=== PATIENT | female | born 1965 | race Caucasian/White ===

== ENCOUNTER → 2020-02-29 14:04 | Outpatient (CLI) | payer MEDICAID, SELFPAY ==
--- NOTE | 2020-02-29 14:08 | CT_ITS ---
STUDY: LOW DOSE CT LUNG CANCER SCREENING REASON FOR EXAM: Female, 54 years old. LUNG CANCER SCREENING RADIATION DOSAGE (If Supplied By Facility): CTDIvol = ( 2.01 ) mGy, DLP = ( 65.19 ) mGycm TECHNIQUE: No contrast was administered. Low dose technique was utilized (average mAS-38 and kVp 120). 1.25 mm axial source images with a slice interval of 1.25-mm were reconstructed in lung windows. 2.5 mm axial source images with a slice interval of 2.5-mm were reconstructed in lung windows. 5.0 mm axial source images with a slice interval of 5.0-mm were reconstructed in soft tissue windows. Nodule measured using lung windows on PACS and/or independent workstation with automated measurement of minimum and maximum diameter. Nodule measurement reported as average diameter rounded to the nearest whole number. Growth is defined as an increase ins size of greater than 1.5 mm. COMPARISON: None. FINDINGS: Total lung nodules (excluding granulomas): None demonstrated on the current study Emphysema: Present Endobronchial lesion: None demonstrated on the current study There is hyperinflation of the lungs consistent with chronic obstructive lung disease (COPD). There are mild diffuse cystic emphysematous changes of both lungs. No focal consolidation is seen. No suspicious nodules are present. There is no demonstrated pleural abnormality. Normal heart size and pericardium. There are calcifications of the coronary arteries. Normal mediastinum. Normal hilar regions. Normal unenhanced pulmonary arteries. Normal aorta arch and descending thoracic aorta. There are multi-level degenerative changes of the thoracic spine. There is no demonstrated gross or obvious abnormality of the visualized upper abdomen, although evaluation is limited with CT lung screening algorithm. CT/Low Dose CT Lung Screening IMPRESSION: 1. COPD/emphysema 2. No demonstrated nodules or suspicious findings on the current study. 3. Lung-RADS category 1 - Continue annual screening with LDCT in 12 months. 4. Coronary artery calcifications are present. IMPORTANT NOTES FOR USE: ACR Lung-RADS Version 1.0 Assessment Categories Release Date: January 03, 2014 Category: Coded 0-4 bases on nodule(s) with highest degree of suspicion. Negative screen is defined as categories 1 and 2; a positive screen is defined as categories 3 and 4. Category 3 and 4A nodules that are unchanged on interval CT should be coded as category 2, and individuals returned to screening in 12 months. Category 4X: Category 3 or 4 nodules with additional imaging findings that increase the suspicion of lung cancer, such as spiculation, GGN that doubles in size in 1 year, enlarged lymph notes, etc. Category Modifiers: S (significant finding unrelated to lung cancer) and C (prior history of treated lung cancer) may be added to the 0-4 Lung-RADS Electronically Signed: Aiden Feldman MD at 17:11 EDT , Service support ,
== END ==
PROVIDERS: PCP Nurse Practitioner Primary Care; Referring Provider Nurse Practitioner Primary Care; Visit Provider Nurse Practitioner Primary Care
DX: Z12.2 Encounter for screening for malignant neoplasm of respiratory organs (principal); F17.210 Nicotine dependence, cigarettes, uncomplicated
CPT/HCPCS: G0297

== ENCOUNTER 2020-03-29 10:45 | Emergency (ER) | payer MEDICAID, SELFPAY ==
[2020-03-29 10:46] VITALS: BP 149/114; PULSE 98; RESP 20; TEMP 36.6; O2SAT 99; BMI 26.4
--- NOTE | 2020-03-29 11:11 | RAD_ITS ---
STUDY: X-RAY - PELVIS AND BILATERAL HIPS REASON FOR EXAM: Female, 54 years old. PAIN IN BOTH HIPS FOR AT LEAST A YEAR OR MORE. NO KNOWN RECENT INJURY. TECHNIQUE: AP view of the pelvis.? 2 views of the right hip, and 2 views of the left hip were obtained. COMPARISON: None. FINDINGS: There is a non-specific bowel gas pattern. Normal visualized soft tissue structures. Normal bilateral iliac wings, sacroiliac joints and visualized sacrum. Normal bilateral superior and inferior pubic rami. Normal pubic symphysis. Normal bilateral ischial tuberosities. Normal visualized right femoral head. Normal right acetabulum. There is mild articular joint space narrowing of the right hip. Normal visualized left femoral head. Normal left acetabulum. There is mild articular joint space narrowing of the left hip. RAD/Hips B/L min 2 views w/ Pelvis IMPRESSION: Mild arthrosis, no demonstrated fracture or suspicious osseous lesion Electronically Signed: Nicolás Hendricks MD at 11:46 EDT , Service support ,
--- NOTE | 2020-03-29 11:24 | RAD_ITS ---
STUDY: X-RAY - CERVICAL SPINE REASON FOR EXAM: Female, 54 years old. Radiating neck pain TECHNIQUE: 4 view(s) of the cervical spine were obtained. COMPARISON: None FINDINGS: Normal anterior atlantoaxial articulation. Normal odontoid process. Normal cervical lordosis. There is diffuse demineralization of the cervical spine. Mild disc space narrowing throughout the cervical spine. No demonstrated fracture. The soft tissue structures are unremarkable. RAD/Cerv Spine 2 or 3 Views IMPRESSION: Mild degenerative changes, no acute findings Electronically Signed: Nicolás Hendricks MD at 11:47 EDT , Service support ,
--- NOTE | 2020-03-29 11:27 | ED.DCSUM_ITS ---
- ER Visit Summary Date of Service: 03/29/20 Chief Complaint: Bilateral hip pain History of Present Illness: The patient is a 54 F presenting with bilateral hip pain. Patient states this started over a year ago. She was recently referred to pain management and had her first appointment 2 days ago. She states x-rays were ordered and she has not been able to obtain them yet. She complains of bilateral hip pain. X-rays were ordered of her neck. She states she has been having neck pain as well but no current neck pain today. Denies recent trauma. She was able to ambulate to the ED. Denies bowel or bladder incontinence. She tried Tylenol at home. Denies fever or sick contacts. Physical Examination: Vitals are stable. Patient is afebrile. Alert no acute distress. HEENT exam is unremarkable. Neck is supple. Lungs are clear and equal bilaterally. Heart is regular rate and rhythm. Abdomen is soft nontender nondistended. Extremities are unremarkable. Active full range of motion Skin is warm and dry. No focal neurologic deficit. Normal strength and sensation Remainder of exam is unremarkable. Emergency Department Course and Treatment: Patient was given Norflex IM. Bilateral hip x-ray shows mild arthrosis, no demonstrated fracture or suspicious osseous lesion. Cervical spine x-ray shows mild degenerative changes, no acute findings. On reevaluation, patient is requesting additional pain medication. She has a listed allergy to NSAIDs. She states these upset her stomach. She was given Toradol IM. Advised to take Tylenol. Advised to follow-up with her pain management physician. Advised return to ED for worsening complaints. Disposition: Discharge home Impression: Chronic pain This note was generated with [employer] dictation software. It may contain incorrect words, spelling, and punctuation that were not noted in review of the chart prior to signing ED Disposition - Plan for ED Patient: Instructions: ED Chronic Pain Prescriptions: cycloBENZAPRine HCl [Flexeril] 10 mg PO TID PRN #20 tab PRN Reason: Muscle Spasm Prescription Printed Referrals: Gris Fofana NP-C [Primary Care Provider] -
[2020-03-29] MEDS: Orphenadrine 60 MG/2 ML Ampul IM (11:32)
--- NOTE | 2020-03-29 12:19 | ED.DEP ---
ED Disposition - Plan for ED Patient: Instructions: ED Chronic Pain Prescriptions: cycloBENZAPRine HCl [Flexeril] 10 mg PO TID PRN #20 tablet PRN Reason: Muscle Spasm Referrals: Gris Fofana NP-C [Primary Care Provider] -
[2020-03-29] MEDS: Ketorolac 30 MG/ML Syringe IM (12:33)
[2020-03-29 12:55] VITALS: BP 138/59; PULSE 96; RESP 14; O2SAT 97
== END 2020-03-29 12:57 | disposition home or self-care (01) ==
LOC: ED 11:56
PROVIDERS: Emergency Provider Emergency Medicine; PCP Nurse Practitioner Primary Care
DX: G89.29 Other chronic pain (principal); M54.2 Cervicalgia; M25.551 Pain in right hip; M25.552 Pain in left hip; M16.0 Bilateral primary osteoarthritis of hip; Z88.6 Allergy status to analgesic agent; E11.9 Type 2 diabetes mellitus without complications; I10 Essential (primary) hypertension; Z72.0 Tobacco use
CPT/HCPCS: 72040; 73521; 96372; 99282

== ENCOUNTER 2020-05-17 15:37 | Emergency (ER) | payer MEDICAID, SELFPAY ==
[2020-04-27 12:09] VITALS: BMI 26.4
[2020-05-17 15:37] VITALS: BP 143/120; PULSE 101; RESP 16; TEMP 36.8; O2SAT 97; BMI 28.8
[2020-05-17] MEDS: HYDROmorphone 1 MG/ML Syringe IM (16:18)
[2020-05-17] MEDS: diazePAM 2 MG Tablet 4 MG PO (16:32)
--- NOTE | 2020-05-17 16:37 | ED.VISSUMM ---
- ER Visit Summary Date of Service: 05/17/20 Chief Complaint: [Back pain] History of Present Illness: The patient is a 54 F [presents the emergency department complaint of back pain for several years. Patient states that she has been having pain for some time and just last week saw pain management who ordered physical therapy for her which she started today. Patient states she had physical therapy and then developed worsening pain that is similar to her chronic pain. No injury or trauma. She denies weakness in the extremities or change in bowel or bladder function. Patient describes pain rating down both legs which is chronic. Denies any fever or recent illness. She has history of diabetes and hypertension. Patient currently taking Tylenol for pain which she states not helping any longer.] Physical Examination: [HEENT-PERRLA, EOMI. Cranial nerves II through XII grossly intact. TMs clear. Mucous membranes moist. No adenopathy. Cardiovascular-regular rate and rhythm without murmur or ectopy Lungs-clear to auscultation, chest wall stable without crepitus or subcu emphysema Abdomen-normoactive bowel sounds, soft, nontender, no rebound or rigidity, no peritoneal signs. Back exam-patient has tenderness diffusely over the lumbar spine and lumbar paraspinal musculature. She has pain with straight leg raising at approximately 45 degrees however she refuses to sit up and exam is somewhat limited. Deep tendon reflexes are plus 2 out of 4 bilaterally at the patella and Achilles. Patient has normal 5 extension. Patient has normal sensation to light touch. Extremities-intact ?4, normal range of motion, normal pulses, atraumatic] Test Results: [X-rays of the lumbar spine were read by radiology as normal] Emergency Department Course and Treatment: [Patient was given a dose of Dilaudid 1 mg IM as well as Valium 4 mg p.o. Patient good pain relief with that. 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 It may contain incorrect words, spelling, and punctuation that were not noted in review of the chart prior to signing ED Disposition - Plan for ED Patient: Referrals: Gris Fofana NETWORK DESIGN ARCHITECT, NETWORK DESIGN ARCHITECT-C [Primary Care Provider] -
--- NOTE | 2020-05-17 16:47 | RAD_ITS ---
STUDY: X-RAY - LUMBAR SPINE REASON FOR EXAM: Female, 54 years old. BACK PAIN, HAD PHYSICAL THERAPY TODAY, PAIN DOWN BOTH LEGS TECHNIQUE: 3 view(s) of the lumbar spine were obtained. COMPARISON: None FINDINGS: Normal lumbar lordosis. There is no substantial scoliosis. There is a normal alignment of the vertebrae. Normal vertebral bodies and endplates. Normal disc space heights. The soft tissue structures are unremarkable. RAD/Lumbar Spine 2 or 3 Views IMPRESSION: Normal x-ray examination of the lumbar spine. Electronically Signed: Jeremiah Lau MD at 17:19 EDT Tel , Service support ,
--- NOTE | 2020-05-17 17:27 | DCINST.ED_ITS ---
ED Disposition - Plan for ED Patient: Instructions: ED Back Pain Acute or Chronic Prescriptions: Hydrocodone Bitart/Apap 5-325 [[place] 5MG-325MG] 1 tab PO Q4H PRN PRN 2 Days #10 tab PRN Reason: Pain Prescription Printed Referrals: Gris Fofana REFRACTORY TECHNICIAN, REFRACTORY TECHNICIAN-C [Primary Care Provider] - 3-5 Days Additional Instructions: see your pain management doctor
--- NOTE | 2020-05-17 17:27 | ED.DEP ---
ED Disposition - Plan for ED Patient: Instructions: ED Back Pain Acute or Chronic Prescriptions: Hydrocodone Bitart/Apap 5-325 [[place] 5MG-325MG] 1 tab PO Q4H PRN PRN 2 Days #10 tab PRN Reason: Pain Prescription Printed Referrals: Gris Fofana EXTRACTOR OPERATOR HELPER, EXTRACTOR OPERATOR HELPER-C [Primary Care Provider] - 3-5 Days Additional Instructions: see your pain management doctor
== END 2020-05-17 17:50 | disposition home or self-care (01) ==
LOC: ED 16:36
PROVIDERS: Emergency Provider Emergency Medicine; PCP Nurse Practitioner Primary Care
DX: M54.9 Dorsalgia, unspecified (principal); G89.29 Other chronic pain; E11.9 Type 2 diabetes mellitus without complications; I10 Essential (primary) hypertension
CPT/HCPCS: 72100; 96372; 99284

== ENCOUNTER → 2020-10-19 15:49 | Outpatient (CLI) | payer MEDICAID, SELFPAY ==
[2020-10-19 17:38] LABS: T3 Total - Triiodothyronine 1.02 ng/mL (0.6-1.81); Vitamin D,25 Hydroxy 21.4 ng/mL
[2020-10-19 17:44] LABS: ALB/GLOB Ratio 0.9 RATIO (0.9-2.4); AST(SGOT) 18 U/L (15-37); Alanine Aminotransfer ALT/SGPT 30 U/L (13-56); Albumin, Serum 3.5 g/dL (3.2-5.0); Alkaline Phosphatase 97 U/L (45-117); Anion Gap 6 (5-15); BUN 23 mg/dL (7-18); BUN/Creat Ratio 20.9 RATIO (10-20); Calcium,Total 9.1 mg/dL (8.5-10.1); Chloride 108 mmol/L (98-107); Cholesterol 264 mg/dL (200); EST Glomerular Filtration Rate 55 mL/min (>60); Est Glom Filt Rate - Afr Amer 66 mL/min (>60); Globulin 3.8 g/dL (2.2-4.2); Glucose 162 mg/dL (74-106); High Density Lipoprotein 76 mg/dL; Potassium 4.1 mmol/L (3.5-5.1); Protein, Total 7.3 g/dL (6.4-8.2); Sodium Level 138 mmol/L (136-145); T4 Free Direct 0.98 ng/dL (0.76-1.46); Thyroid Stim Hormone (TSH) 0.75 uIU/mL (0.358-3.74); Triglycerides 133 mg/dL; Very Low Density Lipoprotein 27 mg/dL (5-40)
== END ==
PROVIDERS: PCP Nurse Practitioner Primary Care; Referring Provider Otolaryngology; Visit Provider Otolaryngology
DX: E11.9 Type 2 diabetes mellitus without complications (principal); I10 Essential (primary) hypertension; M25.50 Pain in unspecified joint; D44.0 Neoplasm of uncertain behavior of thyroid gland
CPT/HCPCS: 36415; 80053; 80061; 82306; 84439; 84443; 84480

== ENCOUNTER 2020-10-26 08:26 | Emergency (ER) | payer MEDICAID, SELFPAY ==
[2020-10-26 08:26] VITALS: BP 131/84; PULSE 85; RESP 16; TEMP 35.5; O2SAT 98; BMI 28.7
--- NOTE | 2020-10-26 08:48 | ED.VISSUMM ---
- ER Visit Summary Date of Service: 10/26/20 Chief Complaint: Dysuria History of Present Illness: The patient is a 54 F who presents with dysuria that began yesterday. Patient states it is gradually gotten worse. Patient states the pain is burning and sharp. Patient states the pain is over the suprapubic area. Patient states the pain is been constant. Patient states the pain is worse when she urinates. Patient states nothing seems to help with the pain. Patient states she does have some pain in her low back. Patient denies any flank pain. Patient denies any nausea or vomiting. Patient denies any fevers or chills. Physical Examination: Vital signs are stable. Patient is afebrile. Patient is in no acute distress. Oral mucosa is pink and moist. Neck is supple. Trachea is midline. There is no JVD. Heart was regular rate and rhythm. Lungs are clear and equal bilaterally. Abdomen is soft. Bowel sounds are normal. There is some suprapubic tenderness. There is no rebound or guarding noted. Cranial nerves II through XII are intact. There are no focal motor or sensory deficits. Extremities are intact. There is no calf tenderness or edema. Test Results: Urinalysis showed leukocyte esterase of 500 and occult blood of 250. There are greater than 100 white blood cells and greater than 100 red blood cells. Emergency Department Course and Treatment: Patient was given a dose of [place] and Bactrim here. Patient was given prescriptions for Bactrim and Pyridium. Patient was instructed to follow-up with her primary care physician in 3 to 5 days. Patient was instructed to drink plenty of fluids. Patient understood and was agreeable with the plan. All questions were answered. Disposition: Discharge home Impression: Urinary tract infection This note was generated with [employer] dictation software. It may contain incorrect words, spelling, and punctuation that were not noted in review of the chart prior to signing ED Disposition - Plan for ED Patient: Disposition: Home or Assisted Living Diagnosis: Cystitis Instructions: ED Bladder Infection, Female (Adult) Prescriptions: Smz/Tmp Ds [Bactrim Ds] 1 tab PO BID #6 tab Prescription Printed Phenazopyridine HCl [Pyridium] 200 mg PO TID #10 tab Prescription Printed Referrals: Gris Fofana CATECHIST, CATECHIST-C [Primary Care Provider] - 3-5 Days
[2020-10-26] MEDS: HYDROcodone Bitartrate/Apap 5/325 Tablet PO (08:53)
[2020-10-26 09:00] LABS: Bacteria 0 SEEN /hpf (None Seen); Mucous, Urine 0 SEEN /hpf (<or=2+)
[2020-10-26 09:02] LABS: Color, Urine Yellow (Yellow); Glucose, Dipstick 1000 mg/dl (Normal); Ketone-Dipstick Negative (Negative); Leukocyte Esterase-Dipstick 500 /ul (Negative); Nitrite-Dipstick Negative (Negative); Occult Blood-Urine 250 /ul (Negative); Protein-Dipstick 100 mg/dl (Negative); Specific Gravity, Urine 1.025 (1.002-1.030); Urine Bilirubin Dipstick Negative (Negative); Urine Clarity Cloudy (Clear); Urine Urobilinogen Normal (Normal)
[2020-10-26 09:08] LABS: Red Blood Cells-Urine > 100 SEEN /hpf (0-5); Squamous Epithelial Cells - UA 0-5 SEEN /hpf (5-10); White Blood Cells >100 SEEN /hpf (0-5)
[2020-10-26] MEDS: Smz/Tmp Ds Tablet 1 TABLET PO (09:34)
[2020-10-26 09:38] VITALS: BP 131/84; PULSE 85; PULSE 86; RESP 15; RESP 16; TEMP 35.5; O2SAT 98
== END 2020-10-26 09:39 | disposition home or self-care (01) ==
PROVIDERS: Emergency Provider Emergency Medicine; PCP Nurse Practitioner Primary Care
DX: N30.90 Cystitis, unspecified without hematuria (principal); E11.9 Type 2 diabetes mellitus without complications; I10 Essential (primary) hypertension; E78.00 Pure hypercholesterolemia, unspecified; M54.9 Dorsalgia, unspecified; G89.29 Other chronic pain; F17.210 Nicotine dependence, cigarettes, uncomplicated
CPT/HCPCS: 81001; 99283

== ENCOUNTER 2020-11-01 13:35 | Emergency (ER) | payer OTHER, MEDICAID, SELFPAY ==
[2020-11-01 13:36] VITALS: BP 155/89; PULSE 85; RESP 17; TEMP 35.8; O2SAT 99; BMI 29.5
--- NOTE | 2020-11-01 14:22 | RAD_ITS ---
STUDY: X-RAY - RIGHT FEMUR REASON FOR STUDY: Female, 54 years old. Pt fell last Friday, pain in right leg and right groin TECHNIQUE: 4 view(s) of the femur. COMPARISON: None. FINDINGS: Normal visualized femur. Normal visualized soft tissue structure. RAD/Femur Min 2 Views IMPRESSION: Normal x-ray examination of the femur. Electronically Signed: Joaquin Rodney MD at 14:59 EST , Service support ,
[2020-11-01] MEDS: Ketorolac 30 MG/ML Syringe IM (14:55)
--- NOTE | 2020-11-01 14:57 | ED.DCSUM_ITS ---
- ER Visit Summary Date of Service: 11/01/20 Chief Complaint: Right groin pain History of Present Illness: The patient is a [address] Lay in [place]. She reports that 5 days ago she kicked a pallet with a bucket on it with her right leg and had the abrupt onset of pain in her right groin. States the pain improved over the weekend, but she has been working again and the pain is worse again today. She describes it as a sharp pain is 10 of 10 severity. Is worsened by movement. Relieved by rest. She has not taken anything for pain. She reports she has chronic back pain is unchanged. She denies any weakness or paresthesias. Physical Examination: Vitals: Stable. Afebrile. Neck: No vertebral tenderness. Full ROM without difficulty. Cleared by NEXUS criteria. Back: No vertebral tenderness. General: A&O x 3. NAD. Cardiovascular exam: Regular rate and rhythm, no murmur, rub or gallop. Respiratory exam: Chest nontender. No crepitus. Clear to auscultation bilaterally. No wheezes or stridor. Abdominal exam: Soft, nontender, nondistended, normal bowel sounds. No pain in RUQ or LUQ specifically. No peritoneal signs. Extremity: No pain over the greater trochanter. No pain in the inguinal region. She does have moderate translocation of the medial proximal right thigh. She is neuro vas intact distal this with normal station light touch and a 2+ dorsalis pedis pulse. Test Results: X-ray shows no acute disease. Emergency Department Course and Treatment: An [facility] report was obtained which shows she had 2 prescriptions for opiates in the past year. She is given dose of Toradol IM. Treatment Plan: Patient will be discharged prescription for 10 [place]. Instructed to follow-up with [facility] in 3 to 5 days for another exam. She is given work restrictions. Return to the emergency department for any worsening symptoms. Disposition: To home in improved and stable condition. Impression: 1. Right thigh strain. This note was generated with [employer] software. It may contain incorrect words, spelling, and punctuation that were not noted in review of the chart prior to signing ED Disposition - Plan for ED Patient: Instructions: ED Muscle Strain, Extremity Prescriptions: Hydrocodone Bitart/Apap 5-325 [[place] 5MG-325MG] 1 tab PO Q4H PRN PRN 2 Days #10 tab PRN Reason: Pain Prescription Printed Referrals: [facility] [GROUP OF PHYSICIANS] - 3-5 Days
[2020-11-01] MEDS: HYDROcodone Bitartrate/Apap 5/325 Tablet PO (15:44)
== END 2020-11-01 15:51 | disposition home or self-care (01) ==
LOC: ED 15:13
PROVIDERS: Emergency Provider Emergency Medicine; PCP Nurse Practitioner Primary Care
DX: S76.911A Strain of unspecified muscles, fascia and tendons at thigh level, right thigh, initial encounter (principal); G89.29 Other chronic pain; W22.8XXA Striking against or struck by other objects, initial encounter
CPT/HCPCS: 73552; 96372; 99283

== ENCOUNTER → 2020-11-13 07:20 | Outpatient (CLI) | payer OTHER, SELFPAY ==
[2020-11-03 13:41] VITALS: BMI 29.8
--- NOTE | 2020-11-13 07:23 | CT_ITS ---
STUDY: CT ABDOMEN AND PELVIS WITHOUT CONTRAST REASON FOR EXAM: Female, 54 years old. Concern for hernia RADIATION DOSAGE (If Supplied By Facility): CTDIvol = ( 9.54 ) mGy, DLP = ( 483.74 ) mGycm TECHNIQUE: Transaxial images were obtained from the dome of the diaphragm to the symphysis pubis without oral contrast, and without intravenous contrast. Sagittal and coronal images were reconstructed. Individualized dose optimization techniques were used for this CT. COMPARISON: None. FINDINGS: The visualized lung bases are unremarkable. The visualized portions of the heart are within normal limits. Normal liver. Normal gallbladder and extrahepatic biliary system. Normal spleen. Normal pancreas. Normal bilateral adrenal glands. Normal right kidney. Normal left kidney. Normal visualized stomach. Normal small intestine. Normal colon. The appendix is visualized and appears normal. Normal abdominal aorta. Normal inferior vena cava. Normal retroperitoneum. Normal urinary bladder. Normal abdominal wall. Normal osseous structures. CT/Abdomen/Pelvis without Cont IMPRESSION: Unremarkable CT of the abdomen and pelvis. There is no evidence of hernia. Electronically Signed: Saray Lance MD at 10:50 EST Tel , Service support ,
== END ==
PROVIDERS: PCP Nurse Practitioner Primary Care; Referring Provider Physician Assistant Surgical; Visit Provider Physician Assistant Surgical
DX: S76.211A Strain of adductor muscle, fascia and tendon of right thigh, initial encounter (principal)
CPT/HCPCS: 74176

== ENCOUNTER 2020-12-08 08:30 | Outpatient (RCR) | payer OTHER, MEDICAID, SELFPAY ==
[2020-11-03 13:41] VITALS: BMI 29.8
--- NOTE | 2020-11-28 09:48 | HP.PTEVAL_ITS ---
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 Date of Evaluation: 11/28/20 Physical Therapist: Venkata Pierson, PT, Cert MDT, OCS - Visit Plan Frequency: 3x /Week Duration: 4-6 Months Plan: PT INTERVENTIONS ROM ,STRENGTHENING ,HIP/KNEE,FUNCTIONAL STRENGTHENING AND MODALTIES NEEDED - Subjective This 54 y/o female presents to physical therapy with right hip thigh pain. Patient at work 11/01/20 noticed sharp pain by kicking and moving pallet. Then following week pulling pallet felt anoth pop. Pain located right groin. Symptoms some better. Went to ER x-rays leg which was negative, [facility] for [facility]nia -.Patient is not working. Aggraveting factors extended walki ng,lifting,standing and stairs. Nothing alleviates symptoms.Patient has difficulty with squatting/kneeling. Denies parathesia/tingling. Patient symptoms affects sleeping.Patient groin pain afffects QOL and funtion. Patient symptoms affects ability to RTW. SOCAIL : . VOACTION: DNS [place] - Pain Right Hip Pain Intensity (Out of 10): 9 Pain Intensity Range: 10 Comment: groinn - Objective POSTURE: WFL. NEURO: intact. PALAPTION: anterior groin region. GAIT: reciprocal pattern with antalgic gait right side. AROM HIP: 100 flexion,abduction 40 degrees ,ER 60,IR 30 degrees pain. KNEE ROM: 0-135 degrees supine flexion. MMT: quads/hams 4-/5,hip flexion /abduction 3+/5 ,ankle 4/5. LUMBAR ROM: MIN/MOD LOSS. PIRIFORMIS: WFL. HAMSTRINGS: mild tight. PROM: WFL hear pop but patient staes thats normal - Special Tests R Hip Scour: Positive R Hip Quadrant - Intraarticular Pathology: Negative R Hip ASHLEY - Intraarticular Pathology: Positive - Goals Goal 1:: I with HEP Goal Time Frame: 4-6 Weeks Goal 2:: Decrease pain by 60% or > to improve function and RTW. Goal Time Frame: 4-6 Weeks Goal 3:: Normalize gait pattern Goal Time Frame: 4-6 Weeks Goal 4:: Improve strength right hip to 4-/5 to improve gait and function. Goal Time Frame: 4-6 Weeks Goal 5:: Patient to RTW with min to no limitations Goal 6:: Patient to improve LFES score by 10 ponts or > to improve function and RTW Goal Time Frame: 4-6 Weeks - Rehabilitation Potential Physical Therapy Diagnosis: This patient right hip at work groin pain with walking,sqauting,lifting ,pain with ROM ,weakness impairs gait and inability to RTW thus will need skilled PT Rehabilitation Potential: Good - Anticipated Interventions Patient/Client Instruction: Educate patient on: Condition For the Purpose of:: To decrease pain, To increase ROM, To improve muscle performance and motor function, To improve ability to perform ADL's, To increase tolerance to activity/condition/position, To improve ability of physical actions for home/community/work/leisure, To improve gait and locomotor functions, To improve health of tissue, To decrease soft tissue restriction, To increase flexibility/ROM, To reduce risk of recurrence Therapeutic Exercise to Include: Strength training, Balance training, Flexibilty training, Passive ROM, Active ROM Comment: HIP/KNEE For the Purpose of:: To decrease pain, To increase ROM, To improve muscle performance and motor function, To increase tolerance to activity/condition/position, To improve ability of physical actions for home/community/work/leisure, To improve health of tissue, To decrease soft tissue restriction, To increase flexibility/ROM, To improve ability to perform tasks related to life management TENS: Yes IF ES: Yes Cryotherapy (ice pack, ice massage): Yes Thermo therapy (hot pack): Yes Ultrasound (thermal/non thermal): Yes For the Purpose of:: To decrease pain, To increase ROM, To improve health of tissue, To decrease soft tissue restriction Thank you for the opportunity to evaluate your patient. For Medicare and Medicare HMO plans, please review the plan of care and approve it. It will need to be FAXED BACK to us at [phone] for Medicare purposes. For Medicare only, by signing this I certify the plan of care. Please let me know if there are questions or concerns regarding this plan of care. Physician Signature: Date:
--- NOTE | 2021-05-02 13:50 | HP.PT.NRP ---
MILY CHILDRESS was seen in my office for initial evaluation on 11/28/20. The following Plan of Care was established for this patient: Initial Frequency: 3x /Week Initial Duration: 4-6 Months Patient/Client Instruction: Educate patient on: Condition For the Purpose of:: To decrease pain, To increase ROM, To improve muscle performance and motor function, To improve ability to perform ADL's, To increase tolerance to activity/condition/position, To improve ability of physical actions for home/community/work/leisure, To improve gait and locomotor functions, To improve health of tissue, To decrease soft tissue restriction, To increase flexibility/ROM, To reduce risk of recurrence Therapeutic Exercise to Include: Strength training, Balance training, Flexibilty training, Passive ROM, Active ROM For the Purpose of:: To decrease pain, To increase ROM, To improve muscle performance and motor function, To increase tolerance to activity/condition/position, To improve ability of physical actions for home/community/work/leisure, To improve health of tissue, To decrease soft tissue restriction, To increase flexibility/ROM, To improve ability to perform tasks related to life management TENS: Yes IF ES: Yes Cryotherapy (ice pack, ice massage): Yes Thermo therapy (hot pack): Yes Ultrasound (thermal/non thermal): Yes For the Purpose of:: To decrease pain, To increase ROM, To improve health of tissue, To decrease soft tissue restriction This patient was last seen in our office . Pertinent comments regarding their Physical therapy will appear below: Patient seen for PT for right hip strain with modalities and light strengthening, thus d/c released to RTW per MD At this point I will be discontinuing this patient from physical therapy. I would be happy to see this patient again in the future if found appropriate by the physician. Thank you! Venkata Pierson, PT, Cert MDT, OCS Balance/Gait/Functional tests - Balance/Special Test Scores Lower Extremity Functional Score: 50
== END 2020-12-08 19:00 | disposition home or self-care (01) ==
LOC: PT 08:30
PROVIDERS: PCP Nurse Practitioner Primary Care; Referring Provider Physician Assistant Surgical; Visit Provider Physician Assistant Surgical
DX: S76.011D Strain of muscle, fascia and tendon of right hip, subsequent encounter (principal); S76.211D Strain of adductor muscle, fascia and tendon of right thigh, subsequent encounter
CPT/HCPCS: 97014; 97110; 97140; 97162; G0283

== ENCOUNTER → 2021-04-12 07:24 | Outpatient (CLI) | payer MEDICAID, SELFPAY ==
[2020-11-03 13:41] VITALS: BMI 29.8
--- NOTE | 2021-04-12 07:29 | ART_ITS ---
Reason For Study: atherosclerosis with claudication Procedure A bilateral lower extremity continuous wave Doppler with analog waveform analysis and ankle brachial indexes. Left Segmental Pressures Left brachial= 141mmHg. Left posterior tibial artery = 159mmHg. Left dorsalis pedis artery = 140mmHg. Left digit = 121 mmHg. The left dorsalis pedis waveforms are triphasic. The left posterior tibial artery waveforms are triphasic. Right Segmental Pressures Right brachial= 147mmHg. Right posterior tibial artery = 131mmHg. Right dorsalis pedis artery = 145mmHg. Right digit = 103 mmHg. The right dorsalis pedis waveforms are triphasic. The right posterior tibial artery waveforms are triphasic. Indices The right ankle brachial index by the dorsalis pedis is .99. The right ankle brachial index by the posterior tibial artery is .89. The right digital-brachial index is .7. The left ankle brachial index by the posterior tibial artery is 1.08. The left ankle brachial index by the dorsalis pedis is .95. The left digital-brachial index is .82. VL/Ankle Brachial Index Interpretation Summary Bilateral lower extremities no evidence of significant occlusive disease at res t. Bilateral triphasic flow noted in all vessels at the ankle. LUIS 0.99 and 1.08. Ordering Physician: Daniel Mcintosh Performed By: Ric Blanton RVT and Student
--- NOTE | 2021-04-12 07:29 | AAVD_ITS ---
Reason For Study: atherosclerosis of aorta Aorta Measurements Aorta Doppler Measurements Proximal aorta measures1.97 x 1.94cm. in cross- Peak systolic flow velocities within the proximal sectional axis. aorta measure 69.5 cm/sec. Proximal aorta measures2.01cm. in longitudinal Peak systolic flow velocities within the mid aorta axis. measure 83.9 cm/sec. Mid aorta measures1.2 x 1.15cm. in cross-sectionalPeak systolic flow velocities within the distal axis. aorta measure 72.7 cm/sec. Mid aorta measures1.21cm. in longitudinal axis. Distal aorta measures1.15 x 1.17cm. in cross- sectional axis. Distal aorta measures1.13cm. in longitudinal axis. Left Iliac Artery Left iliac artery measures .76 x .76 cm. in the cross-sectional axis. Left iliac artery measures .78 cm. in the longitudinal axis. Peak systolic velocity in the left iliac artery measures 45.3 cm/sec. Right Iliac Artery Right iliac artery measures .79 x .8 cm. in the cross-sectional axis. Right iliac artery measures .79 cm. in the longitudinal axis. Peak systolic velocity in the right iliac artery measures 121.1 cm/sec. Procedure Aorta IVC Iliac vasculature or bypass grafts [id number]. The exam was diagnostic. Exam performed in department. VL/Abd Aortic/IVC Duplex scan Interpretation Summary No evidence of aortic iliac aneurysm or stenosis. Ordering Physician: Daniel Mcintosh Performed By: Ric Blanton RVT and Student
== END ==
PROVIDERS: PCP Nurse Practitioner Primary Care; Referring Provider Surgery Vascular Surgery; Visit Provider Surgery Vascular Surgery
DX: I70.213 Atherosclerosis of native arteries of extremities with intermittent claudication, bilateral legs (principal); I70.0 Atherosclerosis of aorta
CPT/HCPCS: 93922; 93978

== ENCOUNTER 2021-05-27 18:29 | Emergency (ER) | payer MEDICAID, SELFPAY ==
[2021-05-27 18:30] VITALS: BP 134/71; PULSE 79; RESP 18; TEMP 35.6; O2SAT 96; BMI 32.1
[2021-05-27 19:03] LABS: Mucous, Urine 0 SEEN /hpf (<or=2+); Red Blood Cells-Urine 0 SEEN /hpf (0-5)
[2021-05-27 19:05] LABS: Color, Urine Yellow (Yellow); Glucose, Dipstick 100 mg/dl (Normal); Ketone-Dipstick Negative (Negative); Leukocyte Esterase-Dipstick 25 /ul (Negative); Nitrite-Dipstick Negative (Negative); Occult Blood-Urine Negative /ul (Negative); Protein-Dipstick 100 mg/dl (Negative); Urine Bilirubin Dipstick Negative (Negative); Urine Clarity Sl. Cloudy (Clear); Urine Urobilinogen Normal (Normal)
[2021-05-27 19:29] LABS: Hyaline Cast 0-5 SEEN /lpf (0-5)
[2021-05-27 19:31] LABS: Bacteria 1+ /hpf (None Seen); Squamous Epithelial Cells - UA 5-10 SEEN /hpf (5-10); White Blood Cells 0-5 SEEN /hpf (0-5)
--- NOTE | 2021-05-27 19:40 | ED.VIS.FEGU ---
HPI HPI - Female History of Present Illness Chief Complaint: Complaint Informant: patient Pain Pain: Negative for Pelvic Pain Quality: Negative for Cramping Bleeding Issue: Negative for Vaginal bleeding and Passing clots Associated Symptoms Associated Symptoms: Positive for Hematuria; Negative for Dysuria, Frequency and Urgency Narrative Narrative: 55-year-old female history of diabetes. Prior hysterectomy. States for the last 2 days she has had hematuria. Denies dysuria. Denies fever or chills. Denies any trauma. She is on no blood thinners. Denies any bruising or bleeding from her nose, gums or rectal bleeding. States she is never had this before. Prior similar symptoms: No Recent Illness/Hospitalization: No PFSH PFSH Medical History (Updated 05/27/21 @ 21:[address] Reese Schulte MD) Asthma Back pain Chronic neck and back pain Diabetes Difficulty balancing History of arthritis History of stomach ulcers Hypertension Knee pain Shoulder pain Home Medications insulin glargine 100 unit/mL (3 mL) subcutaneous pen 36 unit SC QHS 11/03/20 [History Last Taken Unknown] Allergy/AdvReac Type Severity Reaction Status Date / Time duloxetine [From Cymbalta] Allergy Unknown Verified 05/27/21 18:30 Penicillins Allergy NEEDS Verified 05/27/21 18:30 FOLLOW-UP pregabalin [From Lyrica] Allergy Unknown Verified 05/27/21 18:30 NSAIDS (Non-Steroidal AdvReac Upset Verified 05/27/21 18:30 Anti-Inflamma Stomach Family History Other Cancer Diabetes Surgical History History of ankle surgery History of History of hysterectomy Social History Smoking Status: Current every day smoker tobacco type: cigarettes alcohol intake: never ROS ROS ED ROS Narrative Hematuria only. Review of Systems ROS Unobtainable: Denies due to encephalopathy Constitutional Constitutional ED: Denies chills or fever(s) Eyes Eyes: Denies change in vision ENT ENT ED: Denies ear pain or sore throat Cardiovascular Cardiovascular: Denies chest pain Respiratory/Chest Respiratory/Chest: Denies cough or dyspnea Gastrointestinal Gastrointestinal: Denies abdominal pain, diarrhea, melena, nausea or vomiting Genitourinary Genitourinary ED: Reports hematuria; Denies dysuria or urinary frequency Musculoskeletal Musculoskeletal: Denies myalgias Integumentary Denies rash Neurologic Neurologic: Denies headache(s) Psychiatric Psychiatric: Denies depression Endocrine Endocrinology: Denies polyuria Hematologic/Lymphatic Hematologic/Lymphatic: Denies easy bruising Allergic/Immunologic Allergic/Immunologic ED: Denies urticaria EXAM Physical Exam Narrative Exam Narrative: Well-appearing middle-aged female no acute distress. Exam unremarkable. Abdomen soft nontender. Back nontender. Otherwise unremarkable. Const Vital Signs: 05/27/21 18:30 Temperature 96.0 F L Temperature Source Temporal Pulse Rate 79 Respiratory Rate 18 Blood Pressure 134/71 H Blood Pressure Mean 92 Pulse Ox 96 Oxygen Delivery Method Room Air Positive well nourished, well developed and obese; Negative for cachectic, contractures or unkempt General Appearance ED: well developed and NAD; Negative for unkempt, cachectic or contractures Nutritional Appearance: obese; Negative for cachectic HEENT Reports moist mucous membranes Negative for trauma or tenderness Eyes PERRL and EOMs intact bilaterally Neck no lymphadenopathy, supple and no JVD Thyroid: Negative for tender Chest Wall inspection of chest normal and palpation of chest normal Resp normal respiratory effort and clear to auscultation bilaterally Effort and Inspection: Negative for pain with movement Auscultation: Negative for rales, rhonchi or wheezes Cardio regular rate, regular rhythm, S1 normal heart sound, no murmurs and no JVD GI normal to inspection, nondistended, normoactive bowel sounds, soft to palpation, non-tender, non-distended and no masses Auscultation: normoactive bowel sounds Palpation: Negative for tender, guarding or rigid no CVA tenderness Back/Spine no CVA tenderness General Back: Negative for CVA tenderness Extremity normal to inspection and full ROM General Extremety ED: Negative for edema or tenderness General Extremity: Negative for edema Neuro oriented x3 Sensorium / Orientation: alert, oriented to person, oriented to place and oriented to time Motor Exam: strength 5/5 throughout Psych mental status grossly normal Appearance: Negative for unkempt Skin no rashes or lesions noted MDM MDM MDM Narrative Medical decision making narrative: 55-year-old female with hematuria without other complaints. UA shows no signs of infection. Culture being sent. No nitrates and no white cells or red cells. Patient requested lab work to be done because she has some type of kidney problem that her primary care physician she states is watching. Repeat exam patient is doing well at 9:25 PM. There is no urinary tract infection on urinalysis. There is no kidney stone or cause of the bleeding on the CAT scan. There was an incidental finding of coronary calcifications which I explained to the patient she should follow up and get an outpatient stress test. She will follow up with her primary care physician for further evaluation of the hematuria. She will also take her insulin when she goes home due to her hyperglycemia. Lab Data Attestation: I reviewed the patient's lab results. Lab results narrative: Urinalysis unremarkable 1+ bacteria. Culture be sent. No whites or red cells no nitrites. CBC shows a white count 12.4. Hemoglobin of 12. Electrolytes show a gap of 7 BUN of 36 creatinine 1.81. Glucose of 343. Labs: Laboratory Results - last 24 hr 05/27/21 05/27/21 05/27/21 18:48 19:13 19:13 WBC 12.4 H RBC 3.91 L Hgb 12.1 Hct 38.1 MCV 97.4 MCH 30.9 MCHC 31.8 L RDW Std Deviation 51.6 H RDW Coeff of Yudelka 14.6 Plt Count 280 MPV 10.4 Immature Gran % (Auto) 0.600 Neut % (Auto) 79.0 H Lymph % (Auto) 13.7 L [place] % (Auto) 6.2 Eos % (Auto) 0.3 Baso % (Auto) 0.2 Absolute Neuts (auto) 9.8 H Absolute Lymphs (auto) 1.69 Nucleated RBC % 0 Sodium 136 Potassium 4.4 Chloride 107 Carbon Dioxide 22.0 Anion Gap 7 BUN 36 H Creatinine 1.81 H Estim Creat Clear Calc 26.19 Est GFR (MDRD) Af Amer 37 L Est GFR (MDRD) Non-Af 31 L BUN/Creatinine Ratio 19.9 Glucose 343 H Calcium 8.3 L Urine Color Yellow Urine Clarity Sl. Cloudy Urine pH 5.0 Ur Specific [place] 1.020 Urine Protein 100 H Urine Glucose (UA) 100 H Urine Ketones Negative Urine Occult Blood Negative Urine Nitrite Negative Urine Bilirubin Negative Urine Urobilinogen Normal Ur Leukocyte Esterase 25 H Urine RBC 0 SEEN Urine WBC 0-5 SEEN Ur Squamous Epith Cells 5-10 SEEN Urine Bacteria 1+ Hyaline Casts 0-5 SEEN Urine Mucus 0 SEEN Radiography Diagnostic Testing: Radiology Impression Abdomen/Pelvis CT 05/27/21 20:00 IMPRESSION: 1. Normal abdomen. No acute disease. 2. No urinary calculi. 3. Severe coronary artery disease. Cardiology attention advised. Electronically Signed: Socorro Mcclellan MD at 21:11 EDT Tel , Service support , Discharge Plan Triage Chief Complaint: Complaint ED Provider: Reese Schulte Dx/Rx/DC Orders Clinical Impression: Hematuria, Chronic renal insufficiency, Acute hyperglycemia Instructions: ED Hematuria, ED Renal Insufficiency Prescriptions: No Action insulin glargine 100 unit/mL (3 mL) insulin pen 36 unit SC QHS RF: 0 Primary Care Provider: Gris Fofana NP Referrals: Gris Fofana NP, OPERATIONS RESEARCH ANALYST-C [Primary Care Provider] - As soon as possible Activity Restrictions/Additional Instructions: Follow-up with your primary care provider. The need to recheck your urine to ensure that the bleeding in your urine stops. If not you may need to see a urologist and have a scope done. Today there is no signs of any kidney stones or kidney infection. You have renal insufficiency today her creatinine was 1.81. They need to watch that and follow that. Your blood sugar was elevated today at 343 recheck it at home. Take your insulin before bedtime. The CAT scan showed no kidney stones. There is incidental finding of calcifications on the blood vessels of your heart. Follow-up with your primary care provider they may want to get a stress test. Disposition Disposition: Home, Self Care
[2021-05-27 19:54] LABS: Absolute Lymphocyte Count 1.69 X10^3/uL (0.83-4.51); Absolute Neutrophil Count 9.8 X10^3/uL (2.0-7.7); Basophil# 0.02 X10^3/uL; Basophil% 0.2 % (0-1); Eosinophil# 0.04 X10^3/uL; Eosinophils% 0.3 % (0-5); Hematocrit 38.1 % (37-47); Hemoglobin 12.1 g/dL (12.0-15.0); Lymphocyte # 1.69 X10^3/ul (0.83-4.51); Lymphocyte % 13.7 % (19-41); Mean Corp Hgb Conc 31.8 g/dL (32-36); Mean Corpuscular Hgb 30.9 pg (27.0-32.0); Mean Corpuscular Volume 97.4 fL (81-99); Mean Platelet Vol. 10.4 fl (6.2-12.0); Monocyte# 0.76 X10^3/uL; Monocyte% 6.2 % (0-10); NRBC Flagged by Analyzer 0 % (0-5); Neutrophil # 9.77 X10^3/uL (2.7-7.7); Platelet Count 280 K/mm3 (150-450); RBC Distribution Width CV 14.6 % (11.6-14.6); RBC Distribution Width SD 51.6 fl (35.1-43.9); Red Blood Count 3.91 M/mm3 (4.2-5.4); White Blood Count 12.4 K/mm3 (4.4-11.0)
--- NOTE | 2021-05-27 20:00 | CT_ITS ---
STUDY: CT ABDOMEN AND PELVIS WITHOUT CONTRAST REASON FOR EXAM: Female, 55 years old. Hematuria RADIATION DOSAGE (If Supplied By Facility): CTDIvol = ( 13.18 ) mGy, DLP = ( 658.40 ) mGycm TECHNIQUE: Transaxial images were obtained from the dome of the diaphragm to the symphysis pubis without oral contrast, and without intravenous contrast. Sagittal and coronal images were reconstructed. Individualized dose optimization techniques were used for this CT. COMPARISON: 13 November 2020 FINDINGS: Coronary arteries are severely diseased. Lung bases are clear. Normal liver. Normal gallbladder and extrahepatic biliary system. Normal spleen. Normal pancreas. There is a benign 1 cm left adrenal adenoma. Right adrenal is normal. Normal right kidney. Normal left kidney. Normal visualized stomach. Normal small intestine. Normal colon. The appendix is visualized and appears normal. Normal abdominal aorta. Normal inferior vena cava. Normal retroperitoneum. Normal urinary bladder. Normal abdominal wall. Normal osseous structures. CT/Abdomen/Pelvis without Cont IMPRESSION: 1. Normal abdomen. No acute disease. 2. No urinary calculi. 3. Severe coronary artery disease. Cardiology attention advised. Electronically Signed: Socorro Mcclellan MD at 21:11 EDT Tel , Service support ,
[2021-05-27 20:07] LABS: Anion Gap 7 (5-15); BUN 36 mg/dL (7-18); BUN/Creat Ratio 19.9 RATIO (10-20); Calcium,Total 8.3 mg/dL (8.5-10.1); Chloride 107 mmol/L (98-107); Creatinine, Serum 1.81 mg/dL (0.55-1.02); EST Glomerular Filtration Rate 31 mL/min (>60); Est Glom Filt Rate - Afr Amer 37 mL/min (>60); Estimated Creatinine Clearance 26.19 ml/min; Glucose 343 mg/dL (74-106); Potassium 4.4 mmol/L (3.5-5.1); Sodium Level 136 mmol/L (136-145)
[2021-05-27 21:34] VITALS: BP 126/74; PULSE 86; RESP 16; O2SAT 95
== END 2021-05-27 21:34 | disposition home or self-care (01) ==
PROVIDERS: Emergency Provider Emergency Medicine; PCP Nurse Practitioner Primary Care
DX: R31.9 Hematuria, unspecified (principal); E11.65 Type 2 diabetes mellitus with hyperglycemia; E11.22 Type 2 diabetes mellitus with diabetic chronic kidney disease; I12.9 Hypertensive chronic kidney disease with stage 1 through stage 4 chronic kidney disease, or unspecified chronic kidney disease; N18.9 Chronic kidney disease, unspecified; F17.210 Nicotine dependence, cigarettes, uncomplicated; I25.10 Atherosclerotic heart disease of native coronary artery without angina pectoris; J45.909 Unspecified asthma, uncomplicated; M19.90 Unspecified osteoarthritis, unspecified site; Z79.4 Long term (current) use of insulin; Z79.899 Other long term (current) drug therapy; Z87.11 Personal history of peptic ulcer disease
CPT/HCPCS: 74176; 80048; 81001; 85025; 87086; 87088; 99283; A4216

== ENCOUNTER → 2021-07-25 06:07 | Outpatient (CLI) | payer MEDICAID, SELFPAY ==
--- NOTE | 2021-07-25 06:11 | ECHOD_ITS ---
Reason For Study: CAD/ASHD Procedure This was a 2D Doppler, Color Flow transthoracic echocardiogram. Exam performed in department. Left Ventricle Normal LV size. Left ventricular systolic function is normal. The estimated ejection fraction is 65 %. Stage 1 diastolic dysfunction. No regional wall motion abnormalities noted. Right Ventricle Normal RV size. Normal systolic function. Atria Normal left atrium. Normal right atrium. Lipomatous hypertrophy of the atrial septum. Mitral Valve Normal mitral valve. Tricuspid Valve Normal tricuspid valve. Mild tricuspid valve insufficiency. Pulmonary artery systolic pressure is 27 mmHg. Aortic Valve Normal aortic valve. Trisinus/trileaflet aortic valve. Pulmonic Valve Normal pulmonic valve. Great Vessels Normal aortic root. The pulmonary artery is normal size. Normal inferior vena cava. Pericardium/Pleural No pericardial effusion. MMode/2D Measurements & Calculations LVIDd: 4.1 cm IVSd: 1.4 cm Ao root diam: 3.2 cm LVIDs: 2.3 cm LVPWd: 1.4 cm RVDd: 3.3 cm FS: 43.2 % LAV(MOD-bp): 47.6 ml LVAd ap4: 19.7 cm2 SV(MOD-sp4): 30.7 ml LAV(MOD-bp) Indexed: 27.3 ml/m2 LVLd ap4: 6.8 cm LAV(MOD-sp2): 40.3 ml EDV(MOD-sp4): 46.8 ml LAV(MOD-sp4): 53.3 ml EDV(sp4-el): 48.7 ml LVAs ap4: 10.2 cm2 LVLs ap4: 5.7 cm ESV(MOD-sp4): 16.1 ml ESV(sp4-el): 15.6 ml EF(MOD-sp4): 65.7 % EF(sp4-el): 68.0 % SV(sp4-el): 33.1 ml LA A4 area: 19.7 cm2 LA dimension(2D): 2.9 cm RA A4 area: 11.9 cm2 Doppler Measurements & Calculations MV E max armen: 86.8 cm/sec Lat Peak E' Armen: 3.6 cm/sec Med Peak E' Armen: 3.9 cm/sec MV A max armen: 107.2 cm/sec E/E' lat: 24.0 E/E' med: 22.4 MV E/A: 0.81 Ao V2 max: 139.8 cm/sec LV V1 max: 101.2 cm/sec PA V2 max: 75.7 cm/sec Ao max P.8 mmHg LV V1 max P.1 mmHg Ao V2 mean: 96.4 cm/sec Ao mean P.0 mmHg Ao V2 VTI: 29.8 cm TR max armen: 241.8 cm/sec TR max P.4 mmHg ECHO/Echo Complete Interpretation Summary Normal LV size. Left ventricular systolic function is normal. The estimated ejection fraction is 65 %. Stage 1 diastolic dysfunction. Pulmonary artery systolic pressure is 27 mmHg. Ordering Physician: Cresencio Hernández Referring Physician: Gris Fofana Performed By: Naheed Warren, DELFINA, RVT
--- NOTE | 2021-07-25 13:19 | STRESSREP ---
Stress Test Report Pharmacologic myocardial perfusion stress test. 55-year-old lady with a history of chest pain. Stress protocol: Resting EKG demonstrates normal sinus rhythm with a rate of 80 bpm and normal intervals resting blood pressure is 134/88 mmHg. 0.4 mg of regadenoson was infused per usual protocol followed by rapid intravenous saline flush injection. Continuous EKG monitoring was performed. The maximum heart rate attained was 94 bpm which was 57% of maximum predicted heart rate the maximum workload was 1 metabolic equivalent. At rest there were no ST or T wave changes noted to suggest abnormal flow reserve and at peak infusion nonspecific ST changes were noted with did not meet the criteria for ischemia. No clinical angina was noted. Myocardial perfusion protocol. 11.8 mCi of technetium 99m sestamibi was injected at rest. 0.4 mg of regadenoson was infused per usual protocol. At peak infusion 32.3 mCi of technetium 99m sestamibi was injected stress images were reconstructed and compared in the short axis vertical long and horizontal long axis. Gated images were also obtained. Perfusion SPECT analysis: Review of the stress images demonstrate normal uptake of tracer noted in all areas of the myocardium. The resting images similarly demonstrate normal uptake of tracer noted in all areas of the myocardium. No areas of reversibility are noted to suggest ischemia and no previous infarct is noted. Gated SPECT analysis: The gated ejection fraction is 67%. Conclusion: Normal pharmacologic myocardial perfusion stress test. Preserved ejection fraction.
== END ==
PROVIDERS: PCP Nurse Practitioner Primary Care; Visit Provider Internal Medicine Cardiovascular Disease
DX: I25.10 Atherosclerotic heart disease of native coronary artery without angina pectoris (principal); I10 Essential (primary) hypertension
CPT/HCPCS: 78452; 93017; 93306; A9500; A4216; J2785

== ENCOUNTER → 2021-08-13 06:49 | Outpatient (CLI) | payer MEDICAID, SELFPAY ==
--- NOTE | 2021-08-13 06:52 | CT_ITS ---
STUDY: CT SOFT TISSUE NECK WITH CONTRAST REASON FOR EXAM: Female, 55 years old. SUBMENTAL SWELLING RADIATION DOSAGE (If Supplied By Facility): CTDIvol = ( 18.59 ) mGy, DLP = ( 580.45 ) mGycm TECHNIQUE: The patient was scanned in a multi-detector CT scanner. High resolution transaxial imaging was performed following intravenous administration of IV 100mL Isovue-300. Sagittal and coronal images were reconstructed. Individualized dose optimization techniques were used for this CT. COMPARISON: None. FINDINGS: Normal bilateral parotid glands. Normal bilateral interpreter spaces. Normal bilateral parapharyngeal spaces. Normal bilateral carotid spaces. Normal bilateral sublingual and submandibular glands and spaces. Normal visualized nasopharynx. Normal retropharyngeal space. Normal perivertebral space. Normal visualized bilateral faucial tonsils. The visualized tongue, tongue base and oropharynx are normal. The visualized cervical lymph nodes (levels I-) are within normal size limits, and maintain normal morphology. There is no demonstrated solid or cystic mass lesion. There is no abnormal contrast enhancement. Normal epiglottis, bilateral vallecula and hypopharynx. The pre-epiglottic and paraglottic adipose spaces are normal. Normal visualized bilateral piriform sinuses, aryepiglottic folds, vocal cords, and arytenoid-cricoid articulations. Normal subglottic trachea. The right lobe of the thyroid gland is not visualized most likely due to prior resection. Normal visualized pulmonary apices. Normal visualized paranasal sinuses. There is multilevel degenerative changes of the cervical spine. CT/Soft Tissue Neck WITH Contrast IMPRESSION: No acute abnormality is seen. There appears to have been a resection of the right lobe of the thyroid. Electronically Signed: Joaquin Rodney MD at 13:43 EST , Service support ,
[2021-08-13 07:05] LABS: CREATININE FINGERSTICK 1.4 mg/dL (0.55-1.02)
== END ==
PROVIDERS: PCP Nurse Practitioner Primary Care; Referring Provider Nurse Practitioner Primary Care; Visit Provider Nurse Practitioner Primary Care
DX: R22.1 Localized swelling, mass and lump, neck (principal)
CPT/HCPCS: 70491; Q9967

== ENCOUNTER 2021-08-14 13:43 | Emergency (ER) | payer MEDICAID, SELFPAY ==
[2021-08-14 13:43] VITALS: BP 126/114; PULSE 92; RESP 18; TEMP 35.8; O2SAT 98; BMI 32.1
--- NOTE | 2021-08-14 16:49 | EX.ED.DYSGE1 ---
HPI History of Present Illness Chief Complaint: Other, Pain/Inj Informant: patient Onset/Context/Timing Onset: Days Context: Gradual Onset Current Severity: Moderate Maximum Severity: Severe Narrative Narrative: Patient presents with increased low back pain rating to her legs. She is a history of back problems and is actually scheduled to have surgery in September with Dr. Medellin from [facility]. Patient states over the weekend she was moving some boxes for [employer] and yesterday was dragging a large heavy bag. Since that time she had increased pain in her low back which radiates down into her legs. There is no direct trauma or fall. Patient does have tizanidine that she takes twice a day at home. She has a allergy to NSAIDs. I did review prior prescriptions and it appears last prescription for tramadol was in May and Vernon was in December. [facility] Medical History Asthma Back pain Chronic neck and back pain Coronary artery calcification seen on CAT scan Diabetes Difficulty balancing Essential hypertension History of arthritis History of stomach ulcers Hyperlipidemia Knee pain Obesity Shoulder pain Strain of muscle, fascia and tendon of pelvis, initial encounter Strain of right hip and thigh Strain of right inguinal region Strain of unspecified muscles, fascia and tendons at thigh level, right thigh, initial encounter Type 2 diabetes mellitus Home Medications insulin glargine 100 unit/mL (3 mL) subcutaneous pen 36 unit SC QHS 11/03/20 [History Last Taken Unknown] albuterol sulfate 90 mcg/actuation aerosol inhaler 2 puff INHALATION Q6H PRN 06/14/21 [History Last Taken Unknown] atorvastatin 80 mg tablet 80 mg PO QHS 06/14/21 [History Last Taken Unknown] budesonide-formoterol HFA 160 mcg-4.5 mcg/actuation aerosol inhaler 2 puff INHALATION BID 06/14/21 [History Last Taken Unknown] gabapentin 300 mg capsule 300 mg PO TID 06/14/21 [History Last Taken Unknown] hydroxyzine HCl 25 mg tablet 25 mg PO TID PRN 06/14/21 [History Last Taken Unknown] insulin lispro 100 unit/mL subcutaneous pen 8 unit SUBCUT BID ml 06/14/21 [History Last Taken Unknown] lisinopril 20 mg-hydrochlorothiazide 25 mg tablet 1 tab PO BID 06/14/21 [History Last Taken Unknown] pantoprazole 40 mg tablet,delayed release 40 mg PO DAILY 06/14/21 [History Last Taken Unknown] tizanidine 4 mg capsule 4 mg PO BID PRN 06/14/21 [History Last Taken Unknown] tramadol 50 mg tablet 50 mg PO BID PRN 06/14/21 [History Last Taken Unknown] hydrocodone-acetaminophen 1 tab PO Q6H PRN 3 Days #10 tab 08/14/21 [Rx Last Taken Unknown] Allergy/AdvReac Type Severity Reaction Status Date / Time duloxetine [From Cymbalta] Allergy Unknown Verified 08/14/21 13:45 Penicillins Allergy NEEDS Verified 08/14/21 13:45 FOLLOW-UP pregabalin [From Lyrica] Allergy Unknown Verified 08/14/21 13:45 NSAIDS (Non-Steroidal AdvReac Upset Verified 08/14/21 13:45 Anti-Inflamma Stomach Family History Other Cancer Diabetes Surgical History History of ankle surgery History of History of carpal tunnel release History of hysterectomy History of open reduction and internal fixation (ORIF) procedure History of partial thyroidectomy Social History Smoking Status: Current every day smoker tobacco type: cigarettes alcohol intake: never ROS ROS ED Constitutional Constitutional ED: Denies chills or fever(s) Eyes Eyes: Denies change in vision ENT ENT ED: Denies sore throat Cardiovascular Cardiovascular: Denies chest pain Respiratory/Chest Respiratory/Chest: Denies cough or dyspnea Gastrointestinal Gastrointestinal: Denies abdominal pain, diarrhea, nausea or vomiting Genitourinary Genitourinary ED: Denies dysuria Musculoskeletal Musculoskeletal: Reports back pain Integumentary Denies rash Neurologic Neurologic: Denies headache(s) or weakness Allergic/Immunologic Allergic/Immunologic ED: Denies urticaria EXAM Physical Exam Const Vital Signs: 08/14/21 13:43 Temperature 96.5 F L Temperature Source Temporal Pulse Rate 92 Respiratory Rate 18 Blood Pressure 126/114 H Blood Pressure Mean 118 Pulse Ox 98 Oxygen Delivery Method Room Air Positive well nourished and well developed General Appearance ED: well developed Eyes PERRL and EOMs intact bilaterally Neck supple Chest Wall inspection of chest normal and palpation of chest normal Resp normal respiratory effort and clear to auscultation bilaterally Cardio regular rate and regular rhythm Back/Spine no CVA tenderness Back/Spine Narrative: Tenderness in the bilateral lumbar paraspinal muscles. No midline tenderness. No overlying skin changes. Neuro oriented x3 Neuro Narrative: Patient standing at bedside with good strength and sensation of the lower extremities. Sensorium / Orientation: alert Skin no rashes or lesions noted MDM MDM Treatment and Re-Evaluation Comments:: Patient's medication history was reviewed. She will be given a dose of Vernon here and prescription for 10 tabs. I advised her she needs to contact Dr. Medellin for any further prescriptions prior to her surgery. With no fall or direct injury I do not believe imaging is needed at this time. Neuro exam is unremarkable. Discharge Plan Triage Chief Complaint: Other, Pain/Inj ED Provider: Marcy Kidd Dx/Rx/DC Orders Clinical Impression: Back pain Instructions: ED Back Pain (Acute or Chronic) Prescriptions: New hydrocodone-acetaminophen 5-325 mg tablet 1 tab PO Q6H PRN (Reason: pain) 3 Days Qty: 10 RF: 0 No Action atorvastatin 80 mg tablet 80 mg PO QHS RF: 0 budesonide-formoterol [Symbicort] 160-4.5 mcg/actuation HFA aerosol inhaler 2 puff inhalation BID RF: 0 albuterol sulfate 90 mcg/actuation HFA aerosol inhaler 2 puff inhalation Q6H PRNRF: 0 gabapentin 300 mg capsule 300 mg PO TID RF: 0 lisinopril-hydrochlorothiazide 20-25 mg tablet 1 tab PO BID RF: 0 hydroxyzine HCl 25 mg tablet 25 mg PO TID PRNRF: 0 insulin lispro 100 unit/mL insulin pen 8 unit subcut BID RF: 0 pantoprazole 40 mg tablet,delayed release (DR/EC) 40 mg PO DAILY RF: 0 tizanidine 4 mg capsule 4 mg PO BID PRNRF: 0 tramadol 50 mg tablet 50 mg PO BID PRNRF: 0 insulin glargine 100 unit/mL (3 mL) insulin pen 36 unit SC QHS RF: 0 Primary Care Provider: Gris Fofana NP Referrals: Beck Medellin DO [STAFF PHYSICIAN] - 1 Week if not improving Gris Fofana NURSERY NURSE, NURSERY NURSE-C [Primary Care Provider] - Disposition Disposition: Home, Self Care
[2021-08-14 17:01] VITALS: PULSE 78; RESP 16
[2021-08-14] MEDS: HYDROcodone Bitartrate/Apap 5/325 Tablet PO (17:01)
== END 2021-08-14 17:03 | disposition home or self-care (01) ==
LOC: ED 16:59
PROVIDERS: Emergency Provider Emergency Medicine; PCP Nurse Practitioner Primary Care
DX: M54.50 Low back pain, unspecified (principal); F17.210 Nicotine dependence, cigarettes, uncomplicated; E11.9 Type 2 diabetes mellitus without complications; E78.5 Hyperlipidemia, unspecified; I10 Essential (primary) hypertension; I25.10 Atherosclerotic heart disease of native coronary artery without angina pectoris; J45.909 Unspecified asthma, uncomplicated; M19.90 Unspecified osteoarthritis, unspecified site; Z79.4 Long term (current) use of insulin; Z79.899 Other long term (current) drug therapy; Z87.11 Personal history of peptic ulcer disease
CPT/HCPCS: 99283

== ENCOUNTER 2021-09-27 08:25 | Inpatient (IN) | payer MEDICAID, SELFPAY ==
--- NOTE | 2021-09-19 10:37 | EKG12_ITS ---
Test Reason : PRE OP Blood Pressure : / mmHG Vent. Rate : 096 BPM Atrial Rate : 096 BPM P-R Int : 178 ms QRS Dur : 070 ms QT Int : 348 ms P-R-T Axes : 060 012 041 degrees QTc Int : 439 ms Sinus rhythm with Premature atrial complexes Low voltage QRS Poor R wave progression Confirmed by TAVON CRABTREE, EPI ([id number]), social media editor DIANA HAYES ([id number]) on 09/20/2021 7:51:59 AM Referred By: ZAK Confirmed By:EPI MONTES DE OCA MD
[2021-09-19 11:32] LABS: Absolute Lymphocyte Count 2.19 X10^3/uL (0.83-4.51); Absolute Neutrophil Count 5.9 X10^3/uL (2.0-7.7); Basophil# 0.02 X10^3/uL; Basophil% 0.2 % (0-1); Eosinophils% 1.1 % (0-5); Hematocrit 37.2 % (37-47); Hemoglobin 12.1 g/dL (12.0-15.0); Lymphocyte # 2.19 X10^3/ul (0.83-4.51); Lymphocyte % 24.7 % (19-41); Mean Corp Hgb Conc 32.5 g/dL (32-36); Mean Corpuscular Hgb 30.9 pg (27.0-32.0); Mean Corpuscular Volume 95.1 fL (81-99); Mean Platelet Vol. 10.3 fl (6.2-12.0); Monocyte# 0.66 X10^3/uL; Monocyte% 7.4 % (0-10); NRBC Flagged by Analyzer 0 % (0-5); Neutrophil # 5.86 X10^3/uL (2.7-7.7); Platelet Count 219 K/mm3 (150-450); RBC Distribution Width CV 14.1 % (11.6-14.6); Red Blood Count 3.91 M/mm3 (4.2-5.4); White Blood Count 8.9 K/mm3 (4.4-11.0)
[2021-09-19 11:37] LABS: International Normalized Ratio 0.9
[2021-09-19 11:38] LABS: Partial Thromboplast Time 30.4 Seconds (24.1-36.2)
[2021-09-19 11:59] LABS: Hemoglobin A1c 7.9 % (3.8-5.6)
[2021-09-19 12:21] LABS: Anion Gap 3 (5-15); BUN 19 mg/dL (7-18); Calcium,Total 9.6 mg/dL (8.5-10.1); Chloride 110 mmol/L (98-107); Creatinine, Serum 1.19 mg/dL (0.55-1.02); EST Glomerular Filtration Rate 50 mL/min (>60); Est Glom Filt Rate - Afr Amer 60 mL/min (>60); Glucose 92 mg/dL (74-106); Potassium 4.4 mmol/L (3.5-5.1); Sodium Level 139 mmol/L (136-145)
--- NOTE | 2021-09-26 10:24 | RAD_ITS ---
STUDY: X-RAY CHEST REASON FOR EXAM: Female, 55 years old. preop TECHNIQUE: XR Chest 2 Views COMPARISON: None FINDINGS: There is no demonstrated pleural abnormality. Normal size heart. Normal mediastinum and judah. Normal visualized pulmonary arteries. Normal visualized aortic arch and descending thoracic aorta. Normal visualized thoracic spine. Normal visualized ribs, clavicles, and shoulders. There is no demonstrated abnormality of the visualized soft tissue structures of the upper abdomen. RAD/Chest PA and Lateral IMPRESSION: There are no acute findings. Electronically Signed: Elijah Jamil MD at 16:50 EST , Service support ,
[2021-09-27] VITALS (13 sets, daily range): BP systolic 94–126; BP diastolic 60–98; PULSE 76–96; RESP 15–24; TEMP 36.1–37.1; O2SAT 92–100; BMI 35.4; BMI 34.3
[2021-09-27 09:20] LABS: Bedside Glucose 145 mg/dL (70-110)
[2021-09-27] MEDS: Lactated Ringers 1,000 ML 15 ML IV ×2 (09:51→12:01)
--- NOTE | 2021-09-27 10:19 | PCM.OPRPT ---
Problems Associated Problem List Diagnoses (1) Lumbar stenosis: Report of Operation Date of Procedure: 09/27/21 Pre-Operative Diagnosis: 1. Lumbar stenosis, L4-5, with spondylosis 2. Lumbar degenerative disc disease L4-5 3. Lumbar spondylosis L4-5 with radiculopathy Post-Operative Diagnosis: 1. Lumbar stenosis, L4-5, with spondylosis 2. Lumbar degenerative disc disease L4-5 3. Lumbar spondylosis L4-5 with radiculopathy Surgery/Procedure Performed:: 1. L4-5 posterior lumbar interbody fusion 2. Insertion of intervertebral biomechanical device 3. Structural allograft for spinal fusion 4. L4 bilateral laminectomies, foraminotomies, facetectomies, decompression of bilateral nerve roots 5. L4-5 posterior lateral fusion 6. Pedicle screw fixation 7. Local autograft for spinal fusion 8. Neuro monitoring bilateral upper and bilateral lower extremities Description of Surgical Findings:: The patient is a 55-year-old female with intractable back and leg pain. Image studies confirm the above diagnoses. She has failed to respond to nonoperative treatments including medications, physical therapy, and injections. The patient opted for operative intervention understanding the risk to include, but not limited to, infection, bleeding, damage to nerves arteries and veins, possibility of spinal fluid leak, nonunion, hardware failure, continued pain, need for further surgery, pulmonary embolism, heart attack, risk of stroke or . The patient was identified in the preoperative holding area. There she received preoperative IV antibiotics, clindamycin, and was then transferred to the operative suite. Once in the operative suite after general endotracheal anesthesia was established, the patient was positioned prone on the Ari operating table. All bony prominences were padded accordingly. The lumbar spine was prepped and draped in the standard surgical fashion. Bear hugger's were not turned on until the drapes were placed and sealed with Ioban. A midline incision was made and taken down to the level of the lumbodorsal fascia. The fascia was then divided and subperiosteal dissection was taken down to the level of the transverse processes of L4 and L5. Deep retractors were placed. A bone scalpel was used to make bilateral laminectomy cuts in the lamina of L4. Then a series of rongeurs and Kerrisons were used removing the spinous process and lamina at L5. Then facetectomies of greater than 50% were performed as well as foraminotomies decompressing the bilateral nerve roots. Given the severity of the stenosis, I needed to perform wide bilateral laminectomies and near complete facetectomies in order to decompress the neural elements. This created instability therefore necessitating the fusion. The dura and nerve roots were retracted medially and a 15 blade scalpel was used to make an annulotomy at L4-5. Disc material was removed using endplate elevators, curettes, and pituitaries. The endplates were prepared with a rasp. An appropriate sized intervertebral peek cage device measuring was packed with structural allograft and impacted into position completing the posterior lumbar interbody fusion at L4-5. I then proceeded with pedicle screw fixation. Starting points for the screws were found at the junction of the superior articular process and transverse process of L4 and L5. A power bur was used for the starting points. Pedicle probes were placed bilaterally and then screws were placed bilaterally at L4 and screws were placed bilaterally at L5. The screws were tested with intraoperative neurophysiologic monitoring and they tested within normal limits. Connecting rods were then applied. I then proceeded with a posterior lateral fusion. This was accomplished by decorticating the transverse processes bilaterally at L4 and L5. This decorticated bone was then bridged with local autograft from the decompression as well as morselized cancellous allograft completing the posterolateral fusion at L4-5. The incision was thoroughly irrigated. Tisseel was placed over the dura as a hemostatic agent. A deep drain was placed. The fascia was closed with #1 Vicryl, subcutaneous with 2-0 Vicryl, and skin with 2-0 nylon. Sterile dressings were applied with Xeroform, 4 x 4's, ABD and tape. Sponge instrument and needle counts were correct at the end of the case. The patient was extubated and taken to the PACU without incident. Lillie Khan PA-C was present during the entire duration of the case and necessary for critical parts of the case including retraction and closure Surgeon: Beck Medellin flute grinder: Lillie Khan Type of Anesthesia: General Specimen's removed: None Drains: Hemovac Complications None Admit VTE Documentation VTE Present on Admission: No
--- NOTE | 2021-09-27 10:19 | PCM.PN.ORT ---
Subjective Subjective The patient was seen and examined postoperatively in the PACU. She is doing well. Her pain is controlled. She is resting comfortably. She has no complaints including numbness tingling or weakness. Objective Data Objective Data Vital Signs: Vital Signs Temp Pulse Resp BP Pulse Ox 97.0 F L 84 20 H 126/75 H 100 09/27/21 09:24 09/27/21 09:24 09/27/21 09:24 09/27/21 09:24 09/27/21 09:24 Oxygen Delivery Method Room Air Weight: 181 lb 6.4 oz Body Mass Index (BMI) 35.4 Lab / Micro Data Result Diagrams: 09/19/21 11:05 09/19/21 11:05 Labs: Laboratory Results - last 24 hr 09/27/21 09:18: POC Glucose 145 H Micro: Microbiology 09/26/21 10:40 Interface Orders SARS-CoV-2 Antigen (Rapid) - Final Radiography Diagnostic Testing: Radiology Impression Chest X-Ray 09/26/21 10:24 IMPRESSION: There are no acute findings. Electronically Signed: Elijah Jamil MD at 16:50 EST , Service support , Physical Exam Const alert, oriented x3 and no apparent distress General Appearance: cooperative and comfortable HEENT normocephalic and head/scalp atraumatic Eyes EOMs intact bilaterally and conjunctivae normal Neck full ROM General: normal visual inspection Chest inspection of chest normal Resp normal respiratory effort and normal air movement Cardio regular rate and regular rhythm Peripheral Pulses: pulses 2+ throughout GI soft to palpation, non-tender and non-distended Back/Spine Back/Spine Narrative: Dressing clean dry and intact Cervical Spine: cervical ROM normal Thoracic Spine / Upper Back: normal to inspection Lumbar Spine / Lower Back: normal to inspection Extremity normal to inspection, full ROM, normal capillary refill, no clubbing, cyanosis or edema and no calf tenderness Peripheral Pulses: Yes pulses 2+ throughout Skin no rashes or lesions noted General Skin Exam: no breakdown Neuro oriented x3, CN's II-XII intact bilaterally, moves all extremities, no focal motor deficits, no sensory deficits noted and deep tendon reflexes 2+ bilaterally Motor Exam: strength 5/5 throughout and muscle tone normal throughout Assessment & Plan Assessment/Plan (1) Lumbar stenosis: PLAN: Admit to floor See orders Pain control and mobilization as tolerated Discharge planning, likely home tomorrow
--- NOTE | 2021-09-27 10:19 | PCM.DC.SUM ---
Providers Date of Admission: 09/27/21 Primary Care Physician: Gris Fofana NP Reason For Visit: POSTERIOR LUMBAR INTERBODY FUSION? E ORDER LABS Medications at Discharge Home Medications insulin glargine 100 unit/mL (3 mL) subcutaneous pen 42 unit SC DAILY 11/03/20 albuterol sulfate 90 mcg/actuation aerosol inhaler 2 puff INHALATION Q6H PRN 06/14/21 atorvastatin 80 mg tablet 80 mg PO QHS 06/14/21 budesonide-formoterol HFA 160 mcg-4.5 mcg/actuation aerosol inhaler 2 puff INHALATION BID 06/14/21 gabapentin 300 mg capsule 300 mg PO TID 06/14/21 insulin lispro 100 unit/mL subcutaneous pen 8 unit SUBCUT BID PRN ml 06/14/21 lisinopril 20 mg-hydrochlorothiazide 25 mg tablet 1 tab PO BID 06/14/21 pantoprazole 40 mg tablet,delayed release 40 mg PO DAILY 06/14/21 tizanidine 4 mg capsule 4 mg PO BID PRN 06/14/21 hydrocodone-acetaminophen 1 tab PO Q6H 7 Days #28 tab 09/27/21 Hospital Course Operations - (L4-5 posterior lumbar interbody fusion, decompression, posterior spinal fusion with instrumentation) Summary of Care Provided Minutes Spent on Discharge: 15 Hospital Course: The patient is a 55-year-old female who underwent L4-5 posterior lumbar interbody fusion, decompression, posterior spinal fusion with instrumentation on 09/27/2021. She was subsequently admitted. The hospitalist was consulted for medical management. The patient progressed well. Her pain was well controlled and she was mobilizing well with physical therapy. On postoperative day 1 she was having some urinary retention with post void residual. A Zurita catheter was placed and she was started on Urecholine. Her Zurita catheter was removed on postoperative day 3 and she was voiding normally with minimal residual volume. No Other significant medical issues were reported. She was subsequently discharged home on 09/30/21 to follow-up with Dr. Medellin in 3 weeks Physical Exam Const alert, oriented x3 and no apparent distress General Appearance: cooperative and comfortable Orientation / Consciousness: awake, oriented to person, oriented to place and oriented to time HEENT normocephalic and head/scalp atraumatic Eyes EOMs intact bilaterally and conjunctivae normal Neck full ROM General: normal visual inspection Chest inspection of chest normal Resp normal respiratory effort and normal air movement Cardio regular rate and regular rhythm Peripheral Pulses: pulses 2+ throughout GI soft to palpation, non-tender and non-distended Back/Spine Back/Spine Narrative: Dressing clean dry and intact Cervical Spine: cervical ROM normal Thoracic Spine / Upper Back: normal to inspection Lumbar Spine / Lower Back: normal to inspection Extremity normal to inspection, full ROM, normal capillary refill, no clubbing, cyanosis or edema and no calf tenderness Peripheral Pulses: Yes pulses 2+ throughout Skin no rashes or lesions noted General Skin Exam: no breakdown Neuro oriented x3, CN's II-XII intact bilaterally, moves all extremities, no focal motor deficits, no sensory deficits noted and deep tendon reflexes 2+ bilaterally Motor Exam: strength 5/5 throughout and muscle tone normal throughout Weight / BMI Weight Weight: 181 lb 6.4 oz Body Mass Index (BMI) 35.4 ABG / Lab / Microbiology Data Result Diagrams: 09/30/21 04:25 09/30/21 04:25 Laboratory: Laboratory Results - last 24 hr 09/27/21 09:18: POC Glucose 145 H Microbiology: Microbiology 09/26/21 10:40 Interface Orders SARS-CoV-2 Antigen (Rapid) - Final Radiography Diagnostic Testing: Radiology Impression Chest X-Ray 09/26/21 10:24 IMPRESSION: There are no acute findings. Electronically Signed: Elijah Jamil MD at 16:50 EST , Service support , D/C Instructions Discharge Diet: No restrictions Discharge Activity: Return to Normal Activity and - (No repetitive bending twisting or lifting greater than 5 pounds. Wear back brace at all times) Lifting Restricted to (Lbs): 5 Call your doctor if your incision/area has: Continuous Slow Oozing, Sudden Increased Bleeding, Increased Pain/ Swelling, Increased Redness, Foul Smelling Discharge and Swelling at the incision site Call your doctor if you observe: Fever of 101 or Higher, Coldness, Increased Pain, Numbness or Tingling, Change in Color, Inability to urinate, Inability to have a bowel movement, Using more than 1 pad per hour, Shortness of breath, Dizziness, Fainting spells, Swelling in the ankles, Chest pain, Prolonged hiccupping, Increased palpitations (irregular heartbeat), Calf discomfort and Uncontrolled pain Change Dressing in: Daily Cleanse incision/area with: Do not get Incision Wet and Keep Dressing Clean & Dry Additional Dressing/Incision Instructions: Daily dressing changes with iodine to incision Additional Instructions: 1. During your procedure, you received sedation through your IV. Please follow these instructions for the next 24 hours: Do not drive a motor vehicle, do not drink any alcoholic beverages, and do not sign any legal documents or make personal or business decisions. A responsible adult should stay with you at least 6 hours after the procedure. 2. Keep your surgical site/incision clean and the dressing dry and intact. Use waterproof dressing over your incision to shower 3. Monitor the incision site for any signs or symptoms of infection. Watch for redness, excessive swelling or drainage, or continued pain at the incision site after 3 days. Contact your physician immediately for a fever, chills or a temperature of 101.5? F or greater. 4. Take your medication exactly as prescribed by your physician. Do not attempt to wean yourself off any of your medications even though your pain is improving. This process needs to be carefully monitored by your doctor. Take any antibiotics prescribed exactly as directed and until they are gone. 5. Avoid stretching, bending, pulling, twisting or any sudden movements. Do not bend or twist at the waist. Wear your back brace at all times 6. No lifting greater than 5 pounds. 7. Do not operate a motor vehicle, equipment or a power tool while taking pain medication 8. Do not have any manipulation done by a chiropractor or any other physician without first consulting with the surgeon 9. Please contact our office if you are even scheduled for a CT scan or an MRI. 10. Please call us if you have any questions, problems or concerns. Please Follow Up With: Beck Medellin DO When: 3 weeks Meaningful Use Info Meaningful Use Diagnoses (Choose all that apply): None applicable Discharge Plan Admission Admit Date/Time: 09/27/21 08:25 Attending Provider: Navi Mcdaniels Primary Care Provider: Gris Fofana NP Consulting Providers: Harris Serrano Discharge Orders/Prescriptions Prescriptions: New hydrocodone-acetaminophen 5-325 mg tablet 1 tab PO Q6H 7 Days Qty: 28 RF: 0 Continued atorvastatin 80 mg tablet 80 mg PO QHS RF: 0 budesonide-formoterol [Symbicort] 160-4.5 mcg/actuation HFA aerosol inhaler 2 puff inhalation BID RF: 0 albuterol sulfate 90 mcg/actuation HFA aerosol inhaler 2 puff inhalation Q6H PRN (Reason: SOB) RF: 0 gabapentin 300 mg capsule 300 mg PO TID RF: 0 lisinopril-hydrochlorothiazide 20-25 mg tablet 1 tab PO BID RF: 0 insulin lispro 100 unit/mL insulin pen 8 unit subcut BID PRN (Reason: SLIDING SCALE) RF: 0 pantoprazole 40 mg tablet,delayed release (DR/EC) 40 mg PO DAILY RF: 0 tizanidine 4 mg capsule 4 mg PO BID PRN (Reason: Muscle Pain) RF: 0 insulin glargine 100 unit/mL (3 mL) insulin pen 42 unit SC DAILY RF: 0 Referrals / Follow Up: Beck Medellin DO [STAFF PHYSICIAN] - Gris Fofana NP, REAL ESTATE INSTRUCTOR-C [Primary Care Provider] - Disposition Discharge Orders: Discharge Patient (Routine); Ordered 09/30/21 Ordered By: Dr. Beck Medellin
--- NOTE | 2021-09-27 10:20 | RAD_ITS ---
STUDY: X-RAY - LUMBAR SPINE REASON FOR EXAM: Female, 55 years old. L4-5 FUSION WITH INSTRUMENT TECHNIQUE: 1 view(s) of the lumbar spine were obtained. COMPARISON: None FINDINGS: The localization instrument is seen posterior to the L4-L5 disc space level. RAD/Lumbar Spine 2 or 3 Views IMPRESSION: The localization instrument is seen posterior to the L4-L5 disc space level. Electronically Signed: Joaquin Rodney MD at 15:45 EST , Service support ,
[2021-09-27] MEDS: Heparin 10,000 UNITS/10 ML Vial 10000 UNITS ×2 (11:45→12:16)
[2021-09-27] MEDS: THROMBIN (RECOMBINANT) 20,000 UNIT VIAL 20000 UNIT TOPICAL (11:45)
[2021-09-27] MEDS: Bupivacaine 0.25% 30 ML Vial (14:50)
[2021-09-27 16:11] LABS: Bedside Glucose 164 mg/dL (70-110)
--- NOTE | 2021-09-27 17:35 | PCM.PN.HOSP ---
Subjective Subjective Doing well, consulted for postoperative medical management after bilateral lumbar laminectomies. No issues Objective Data Objective Data Vital Signs: Vital Signs Temp Pulse Resp BP Pulse Ox 97.5 F L 76 16 96/66 92 09/27/21 16:00 09/27/21 16:30 09/27/21 16:30 09/27/21 16:30 09/27/21 16:30 Oxygen Flow Rate (L/min) 3 Oxygen Delivery Method Nasal Cannula Weight: 176 lb Body Mass Index (BMI) 34.3 Intake & Output: Intake and Output for Last 24 Hours 09/26/21 09/27/21 09/28/21 03:59 03:59 03:59 Intake Total 86.25 / 86.25 Output Total 250 / 250 Balance -163.75 / -163.75 Lab / Micro Data Result Diagrams: 09/28/21 02:34 09/28/21 02:34 Labs: Laboratory Results - last 24 hr 09/27/21 09:18: POC Glucose 145 H 09/27/21 16:08: POC Glucose 164 H Micro: Microbiology 09/26/21 10:40 Interface Orders SARS-CoV-2 Antigen (Rapid) - Final Radiography Diagnostic Testing: Radiology Impression Lumbar Spine X-Ray 09/27/21 10:20 IMPRESSION: The localization instrument is seen posterior to the L4-L5 disc space level. Electronically Signed: Joaquin Rodney MD at 15:45 EST , Service support , Physical Exam Const alert, oriented x3 and no apparent distress General Appearance: cooperative HEENT normocephalic and moist oral mucous membranes Eyes PERRL, EOMs intact bilaterally and conjunctivae normal Neck supple and no JVD Resp normal respiratory effort, no retractions, no use of accessory muscles and clear to auscultation bilaterally Auscultation: Negative for crackles, rales, rhonchi or wheezes Cardio regular rate, regular rhythm, S1 normal heart sound, S2 normal heart sound and no murmurs GI soft to palpation, non-tender and non-distended; Negative for hepatosplenomegaly Extremity no clubbing, cyanosis or edema Skin no rashes or lesions noted Neuro no focal motor deficits and no sensory deficits noted Psych affect normal Appearance: appropriate Assessment & Plan Assessment/Plan (1) Lumbar stenosis: QUALIFIERS: Neurogenic claudication status: unspecified Qualified Code(s): M48.061 - Spinal stenosis, lumbar region without neurogenic claudication PLAN: 1. Postop bilateral lumbar laminectomies 09/27/2021 ? Pain management per primary ? PT/OT ? Continue with aspirin per primary ? We will continue to follow peripherally 2. HTN/HLD ? Blood pressures stable ? We will hold blood pressure medication pending creatinine evaluation in the morning if stable can restart home blood pressure medications ? Continue with Lipitor 3. DM2 ? Continue with her home insulin ? Accu-Cheks AC at bedtime DVT: SCDs Charges/Coding Visit Charges Inpatient E&M: 43427 Subs Hosp L2
[2021-09-27] MEDS: Ensure Surgery 237 ML LIQUID PO (17:44)
[2021-09-27] MEDS: Morphine 4 MG/ML Syringe IV ×2 (17:45→20:14)
[2021-09-27] MEDS: Gabapentin 300 MG Capsule PO (20:18)
--- NOTE | 2021-09-27 20:50 | NURSING ---
Patient completely refusing her scheduled tylenol. This RN questioned patient as to why she was so opposed to taking the Tylenol ordered by her surgeon. Patient first stated that tylenol doesn't work with her. This RN attempted to explain the importance of taking non-narcotics in conjunction with narcotics, patient kept refusing. Then patient stated to this RN that her Doctor told her not to take tylenol when taking narcotics. This RN tried to explain to her that this was ordered by her surgeon because she just has back surgery, patient continued to refuse. This RN then stepped out of the room. The CIGAR PACKER AND GRADER later reported to this RN that after this technical document writer stepped out of the room, the patient told her she was confused as to where exactly she was and she got confused and thought she has already taken her tylenol earlier today, and that's why she was refusing her tylenol.
--- NOTE | 2021-09-27 23:15 | NURSING ---
SEWER CONTRACTOR came out to tell this RN that patient as c/o sternal nonradiating chest pain, especially after coughing fit. VS obtained. When asked to describe her pain patient just kept saying its hurts bad, very nondescriptive. MD texted and new orders received. While this RN was at bedside giving new meds ordered for chest pain c/o, patient now hyper-focused on her hair and wanting to eat. This RN explained to patient why were were doing all these things d/t her complaints of chest pain.
--- NOTE | 2021-09-27 23:22 | EKG12_ITS ---
Test Reason : CHEST PAIN Blood Pressure : / mmHG Vent. Rate : 093 BPM Atrial Rate : 093 BPM P-R Int : 206 ms QRS Dur : 080 ms QT Int : 386 ms P-R-T Axes : 057 -25 018 degrees QTc Int : 479 ms Normal sinus rhythm Inferior infarct , age undetermined Anterior infarct , age undetermined , cannot be excluded Abnormal ECG Confirmed by TAVON CRABTREE, EPI ([id number]), order editor DIANA HAYES ([id number]) on 09/28/2021 1:54:28 PM Referred By: Beck Medellin Confirmed By:EPI MONTES DE OCA MD
[2021-09-27] MEDS: Lactated Ringers 1,000 ML 100 ML IV (23:29)
--- NOTE | 2021-09-27 23:34 | RAD_ITS ---
STUDY: X-RAY CHEST REASON FOR EXAM: Female, 55 years old. chest pain TECHNIQUE: Single AP portable view of the chest. COMPARISON: None. FINDINGS: The lungs are clear and expanded. There is no demonstrated pleural abnormality. Normal size heart. Normal mediastinum and judah. Normal visualized pulmonary arteries. Normal visualized aortic arch and descending thoracic aorta. Normal visualized thoracic spine. There is degenerative osteoarthritis of the bilateral shoulders. There is no demonstrated abnormality of the visualized soft tissue structures of the upper abdomen. RAD/Chest 1 View (Portable) IMPRESSION: Degenerative changes, as described above. No demonstrated acute cardiopulmonary process. Electronically Signed: Saray Lance MD at 0:24 EST Tel , Service support ,
[2021-09-27] MEDS: Morphine 2 MG/ML Syringe IV (23:41)
--- NOTE | 2021-09-27 23:43 | NURSING ---
Patient complaining of sternal chest pain. Unable to state if this is new or related to her cough. Unable to give numeric value of pain, stating that it is so bad, just so bad. Patient playing on her phone during this time. MD updated by VERONICA Diehl and EKG, CXR, and Medication orders given.
[2021-09-28] VITALS (10 sets, daily range): BP systolic 111–129; BP diastolic 71–86; PULSE 70–101; RESP 14–19; TEMP 36–36.8; O2SAT 92–96
[2021-09-28] MEDS: Aspirin 325 MG Tablet PO (00:02)
--- NOTE | 2021-09-28 00:05 | PCM.HP.STD ---
HPI - General General Date of Admission: 09/27/21 HPI Narrative MILY CHILDRESS, is a 55 F with a significant history of asthma; diabetes mellitus ;hypertension; tobacco abuse; lumbar stenosis postop day 0 with L4-L5 posterior lumbar interbody fusion and other related intervention who internal medicine service has been consulted for medical therapy. Of note patient also reports right-sided chest pain. Pain is excruciating. The pain worsens with coughing. She denies any ameliorating factors to the pain. The pain radiates to her upper back. She denies any nausea or vomiting. She reported that she has been having a pink sputum. However upon further discussion with nurse patient ate some Jell-O. [facility] Medical History (Updated 09/27/21 @ 10:[address] Beck Medellin, DO) Anxiety Arthritis Asthma Back pain Back pain Cardiology follow-up encounter Chronic neck and back pain COPD (chronic obstructive pulmonary disease) Coronary artery calcification seen on CAT scan Depression Diabetes Dietary restriction Difficulty balancing Essential hypertension Gastric reflux High cholesterol History of arthritis History of echocardiogram History of edema History of pain when walking History of renal disease History of stomach ulcers History of stress test Hyperlipidemia Hypertension Injury of head and neck Insulin dependent diabetes mellitus Knee pain Migraine headache Obesity Shortness of breath on exertion Shoulder pain Smoker Strain of muscle, fascia and tendon of pelvis, initial encounter Strain of right hip and thigh Strain of right inguinal region Strain of unspecified muscles, fascia and tendons at thigh level, right thigh, initial encounter Syncope Thyroid disease Type 2 diabetes mellitus Walker as ambulation aid Wears glasses Wears hearing aid Home Medications insulin glargine 100 unit/mL (3 mL) subcutaneous pen 42 unit SC DAILY 11/03/20 [History Last Taken Unknown] albuterol sulfate 90 mcg/actuation aerosol inhaler 2 puff INHALATION Q6H PRN 06/14/21 [History Last Taken 09/27/21] atorvastatin 80 mg tablet 80 mg PO QHS 06/14/21 [History Last Taken 09/27/21] budesonide-formoterol HFA 160 mcg-4.5 mcg/actuation aerosol inhaler 2 puff INHALATION BID 06/14/21 [History Last Taken 09/27/21] gabapentin 300 mg capsule 300 mg PO TID 06/14/21 [History Last Taken Unknown] insulin lispro 100 unit/mL subcutaneous pen 8 unit SUBCUT BID PRN ml 06/14/21 [History Last Taken Unknown] lisinopril 20 mg-hydrochlorothiazide 25 mg tablet 1 tab PO BID 06/14/21 [History Last Taken 09/27/21] pantoprazole 40 mg tablet,delayed release 40 mg PO DAILY 06/14/21 [History Last Taken 09/27/21] tizanidine 4 mg capsule 4 mg PO BID PRN 06/14/21 [History Last Taken Unknown] hydrocodone-acetaminophen 1 tab PO Q6H 7 Days #28 tab 09/27/21 [Rx Last Taken Unknown] Allergy/AdvReac Type Severity Reaction Status Date / Time duloxetine [From Cymbalta] Allergy Unknown Verified 09/13/21 09:55 Penicillins Allergy NEEDS Verified 09/13/21 09:55 FOLLOW-UP pregabalin [From Lyrica] Allergy Unknown Verified 09/13/21 09:55 NSAIDS (Non-Steroidal AdvReac Upset Verified 09/13/21 09:55 Anti-Inflamma Stomach Family History Other Cancer Diabetes Surgical History History of ankle surgery History of History of carpal tunnel release History of hysterectomy History of open reduction and internal fixation (ORIF) procedure History of partial thyroidectomy Social History Smoking Status: Current every day smoker tobacco type: cigarettes alcohol intake: never Vital Signs Vital Signs Vital Signs: 09/27/21 09:19 09/27/21 09:24 09/27/21 15:12 Temperature 97.0 F L 97.2 F L Temperature Source Temporal Temporal Pulse Rate 84 96 Pulse Strength Respiratory Rate 20 H 15 Respiratory Effort Respiratory Depth Respiratory Pattern Normal Normal Blood Pressure 126/75 H 124/79 H Blood Pressure [BP] Blood Pressure Mean 92 94 Blood Pressure Mean [BP] Blood Pressure Source Monitor Monitor Blood Pressure Source [BP] Blood Pressure Position Sitting Semi-Fowlers Blood Pressure Position [BP] Blood Pressure Location Left Arm Left Arm Blood Pressure Location [BP] Baseline BP 126/75 Pulse Ox 100 94 Oxygen Delivery Method Room Air Nasal Cannula Oxygen Flow Rate (L/min) 09/27/21 15:15 09/27/21 15:30 09/27/21 15:41 Temperature Temperature Source Pulse Rate 93 93 Pulse Strength Respiratory Rate 16 15 Respiratory Effort Respiratory Depth Respiratory Pattern Blood Pressure 120/64 109/75 Blood Pressure [BP] Blood Pressure Mean 82 86 Blood Pressure Mean [BP] Blood Pressure Source Monitor Monitor Blood Pressure Source [BP] Blood Pressure Position Left Lateral Semi-Fowlers Blood Pressure Position [BP] Blood Pressure Location Left Arm Right Arm Blood Pressure Location [BP] Baseline BP 126/75 126/75 126/75 Pulse Ox 92 92 Oxygen Delivery Method Nasal Cannula Nasal Cannula Oxygen Flow Rate (L/min) 3 3 09/27/21 15:45 09/27/21 16:00 09/27/21 16:10 Temperature 97.5 F L Temperature Source Temporal Pulse Rate 91 85 Pulse Strength Normal (2+) Respiratory Rate 18 20 H Respiratory Effort Respiratory Depth Respiratory Pattern Blood Pressure 113/98 H 98/69 Blood Pressure [BP] Blood Pressure Mean 103 78 Blood Pressure Mean [BP] Blood Pressure Source Monitor Monitor Blood Pressure Source [BP] Blood Pressure Position Semi-Fowlers Semi-Fowlers Blood Pressure Position [BP] Blood Pressure Location Right Arm Right Arm Blood Pressure Location [BP] Baseline BP 126/75 126/75 Pulse Ox 92 95 Oxygen Delivery Method Nasal Cannula Nasal Cannula Oxygen Flow Rate (L/min) 3 3 09/27/21 16:15 09/27/21 16:30 09/27/21 17:02 Temperature 97.8 F Temperature Source Temporal Pulse Rate 76 78 Pulse Strength Respiratory Rate 16 16 24 H Respiratory Effort Normal Non-Labored Respiratory Depth Normal Respiratory Pattern Normal Blood Pressure 94/67 96/66 104/60 Blood Pressure [BP] Blood Pressure Mean 76 76 74 Blood Pressure Mean [BP] Blood Pressure Source Monitor Monitor Monitor Blood Pressure Source [BP] Blood Pressure Position Right Lateral Right Lateral Semi-Fowlers Blood Pressure Position [BP] Blood Pressure Location Right Leg Right Arm Blood Pressure Location [BP] Baseline BP 126/75 126/75 Pulse Ox 92 92 94 Oxygen Delivery Method Nasal Cannula Nasal Cannula Nasal Cannula Oxygen Flow Rate (L/min) 3 3 2 09/27/21 20:21 09/27/21 22:31 09/27/21 23:23 Temperature 98.7 F Temperature Source Oral Pulse Rate 93 88 96 Pulse Strength Respiratory Rate 21 H Respiratory Effort Respiratory Depth Respiratory Pattern Blood Pressure 116/70 Blood Pressure [BP] 110/64 Blood Pressure Mean 85 Blood Pressure Mean [BP] 79 Blood Pressure Source Monitor Blood Pressure Source [BP] Monitor Blood Pressure Position Semi-Fowlers Blood Pressure Position [BP] Sitting Blood Pressure Location Left Arm Blood Pressure Location [BP] Left Arm Baseline BP Pulse Ox 98 96 Oxygen Delivery Method Nasal Cannula Nasal Cannula Oxygen Flow Rate (L/min) 3 2 Weight Weight: 79.832 kg Body Mass Index (BMI) 34.3 Results Lab / Micro Data Result Diagrams: 09/19/21 11:05 09/19/21 11:05 Labs: Laboratory Results - last 24 hr 09/27/21 09:18: POC Glucose 145 H 09/27/21 16:08: POC Glucose 164 H Radiology Impression Lumbar Spine X-Ray 09/27/21 10:20 IMPRESSION: The localization instrument is seen posterior to the L4-L5 disc space level. Electronically Signed: Joaquin Rodney MD at 15:45 EST , Service support ,
--- NOTE | 2021-09-28 00:18 | PN_ITS ---
Progress Note MILY CHILDRESS, is a 55 F with a significant history of asthma; diabetes mellitus ;hypertension; tobacco abuse; lumbar stenosis postop day 1 with L4-L5 posterior lumbar interbody fusion and other related intervention and who internal medicine service has been consulted for medical management. Of note patient also reports right-sided chest pain. Pain is excruciating. The pain worsens with coughing. She denies any ameliorating factors to the pain. The pain radiates to her upper back. She denies any nausea or vomiting. She reports a pink sputum. However upon further discussion with nurse patient ate some Jell-O. Physical Exam Narrative Physical exam: General: Well-nourished, well-developed. Head: Normocephalic, atraumatic, no tenderness Eyes: PERRLA, EOMI ENT, no trauma, moist mucous membranes, no rhinorrhea Neck: Nontender, full range of motion, no spinal tenderness, deformities, step- off CVS: Regular rate and rhythm. S1-S2 present. No murmur, gallop or rub. Respiratory : clear to auscultation bilaterally, chest wall nontender, no wheezing Abdomen: Soft, nontender, nondistended, normal bowel sounds, no masses : Deferred Back: Nontender, no CVA tenderness, no midline spinal tenderness, deformities, step-offs Extremities: Nontender full range of motion, no trauma Skin: Dry dressing on lower back. Normal color, no trauma, abrasions Neuro: Alert, oriented, cranial nerves II through XII grossly intact. Psychiatry: Normal mood. Normal affect. Not depressed. Not anxious. Assessment & Plan Assessment/Plan (1) Lumbar stenosis: QUALIFIERS: Neurogenic claudication status: unspecified Qualified Code(s): M48.061 - Spinal stenosis, lumbar region without neurogenic claudication (2) Chest pain: QUALIFIERS: Chest pain type: unspecified Qualified Code(s): R07.9 - Chest pain, unspecified (3) Type 2 diabetes mellitus: QUALIFIERS: Chronic kidney disease stage: stage 2 (mild) Diabetes mellitus complication detail: with chronic kidney disease Diabetes mellitus complication status: with kidney complications Diabetes mellitus terminal makeup operator insulin use: with terminal makeup operator use Qualified Code(s): E11.22 - Type 2 diabetes mellitus with diabetic chronic kidney disease; N18.2 - Chronic kidney disease, stage 2 (mild); Z79.4 - custodial (current) use of insulin (4) Essential hypertension: (5) Tobacco abuse: PLAN: Lumbar stenosis Postop day 1 for L4-L5 posterior lumbar interbody fusion and other related interventions. Date of procedure was 09/27/2021. Management by primary Chest pain On telemetry. Chest x-ray ordered. Chest x-ray independently interpreted showed no acute cardiopulmonary process any agree with radiologist interpretation. Aspirin 325 mg x 1 ordered. Daily baby aspirin ordered. Morphine IV x1 ordered. Trend troponin. EKG done showed Q waves in inferior leads. No ST or T abnormalities. On minimal oxygen of 2 L with oxygen saturation about 99%. Heart rate is in the 90s. Unlikely PE. If symptoms persist consider CTPA chest. High intensity statin has been continued. Hypertension Blood pressure is stable. Agrees with lisinopril and hydrochlorothiazide continued by primary. Trend blood pressure and adjust blood pressure medications. Diabetes mellitus Patient with hyperglycemia. Continue home basal insulin. Accu-Chek QA [facility] with correction scale insulin ordered. Tobacco abuse Smokes 1 or more packs per day. Counseled. DVT prophylaxis SCD and AMEE queen ordered by primary. Visit Charges Inpatient E&M: 74504 Subs Hosp L2
[2021-09-28 00:31] LABS: Bedside Glucose 419 mg/dL (70-110)
[2021-09-28 00:31] LABS: Troponin-I HS 17 pg/mL (3.0-54.0)
--- NOTE | 2021-09-28 02:24 | NURSING ---
Patient refusing scheduled s/s insulin, BG 419. aware.
[2021-09-28] MEDS: Morphine 4 MG/ML Syringe IV (02:34)
[2021-09-28 02:43] LABS: Absolute Lymphocyte Count 0.62 X10^3/uL (0.83-4.51); Absolute Neutrophil Count 12.2 X10^3/uL (2.0-7.7); Basophil# 0.02 X10^3/uL; Basophil% 0.1 % (0-1); Hematocrit 34.3 % (37-47); Hemoglobin 10.7 g/dL (12.0-15.0); Lymphocyte # 0.62 X10^3/ul (0.83-4.51); Lymphocyte % 4.5 % (19-41); Mean Corp Hgb Conc 31.2 g/dL (32-36); Mean Corpuscular Hgb 30.1 pg (27.0-32.0); Mean Corpuscular Volume 96.6 fL (81-99); Mean Platelet Vol. 10.9 fl (6.2-12.0); Monocyte# 0.88 X10^3/uL; Monocyte% 6.4 % (0-10); NRBC Flagged by Analyzer 0 % (0-5); Neutrophil # 12.17 X10^3/uL (2.7-7.7); Neutrophil % 88.5 % (47-70); Platelet Count 233 K/mm3 (150-450); RBC Distribution Width CV 13.8 % (11.6-14.6); Red Blood Count 3.55 M/mm3 (4.2-5.4); White Blood Count 13.8 K/mm3 (4.4-11.0)
[2021-09-28 03:02] LABS: Troponin-I HS 17 pg/mL (3.0-54.0)
[2021-09-28 03:06] LABS: Anion Gap 8 (5-15); BUN 39 mg/dL (7-18); BUN/Creat Ratio 20.1 RATIO (10-20); Calcium,Total 8.4 mg/dL (8.5-10.1); Chloride 97 mmol/L (98-107); Creatinine, Serum 1.94 mg/dL (0.55-1.02); EST Glomerular Filtration Rate 28 mL/min (>60); Est Glom Filt Rate - Afr Amer 34 mL/min (>60); Estimated Creatinine Clearance 23.26 ml/min; Glucose 451 mg/dL (74-106); Potassium 5.7 mmol/L (3.5-5.1); Sodium Level 128 mmol/L (136-145)
[2021-09-28] MEDS: Insulin Lispro 100 UNIT/ML INSULN.PEN SC ×5 (03:30→21:47)
[2021-09-28] MEDS: oxyCODONE 5 MG Tablet PO ×4 (03:32→17:05)
--- NOTE | 2021-09-28 03:56 | NURSING ---
Patient still without any output. Patient refusing straight cath at this time, despite provided education. VERONICA walker.
--- NOTE | 2021-09-28 04:00 | NURSING ---
Patient had not voided so far this shift. This RN, FOAM DISPENSER, and BUSINESS INSURANCE AGENT assisted patient up to the BSC. Patient sat on the BSC for awhile, unable to urinate. This RN informed patient that if she was unable to void this RN would let the MD know and possibly obtain and straight cath order, patient refused st cath. Patient assisted back to bed, patient did allow staff to bladder scan her. Bladder scanned for 731mls. During this time this RN informed her that earlier she had refused her insulin. This RN told her that lab reported her glucose number as critical at 451. This RN spoke with patient about importance of taking her insulin. Patient kept saying, I don't want to drop. Reassured her that we would be checking her blood sugars. SS called for 11units, patient was agreeable to 8 units. Given by FOAM DISPENSERChristine Mcfarland. During this time FOAM DISPENSER also managed to have patient take oral oxycodone.
[2021-09-28 04:31] LABS: Bedside Glucose > 500 mg/dL (70-110)
[2021-09-28] MEDS: Acetaminophen 500 MG Tablet 1000 MG PO ×3 (05:32→21:33)
[2021-09-28] MEDS: Gabapentin 300 MG Capsule PO ×2 (05:32→21:33)
[2021-09-28 05:41] LABS: Bedside Glucose 397 mg/dL (70-110)
[2021-09-28 06:43] LABS: Troponin-I HS 26 pg/mL (3.0-54.0)
--- NOTE | 2021-09-28 07:33 | PN.ORTHO_ITS ---
Subjective Subjective Was seen and examined postoperative day 1. She is lying in bed resting comfortably. Her pain is well controlled. She denies any other complaints including numbness tingling weakness. The nurses report that she has not had much urine output. A bladder scan was performed showing 700 cc. However she did since use the bedside commode and urinated about 200 cc. She has been up with assistance without any other issues. Objective Data Objective Data Vital Signs: Vital Signs Temp Pulse Resp BP Pulse Ox 96.8 F L 88 19 H 122/86 H 96 09/28/21 03:40 09/28/21 03:40 09/28/21 03:40 09/28/21 03:40 09/28/21 03:40 Oxygen Flow Rate (L/min) 2 Oxygen Delivery Method Nasal Cannula Weight: 176 lb Body Mass Index (BMI) 34.3 Intake & Output: Intake and Output for Last 24 Hours 09/26/21 09/27/21 09/28/21 23:59 23:59 23:59 Intake Total 233.92 / 233.92 106 / 106 Output Total 250 / 250 Balance -16.08 / -16.08 106 / 106 Lab / Micro Data Result Diagrams: 09/28/21 02:34 09/28/21 02:34 Labs: Laboratory Results - last 24 hr 09/27/21 09:18: POC Glucose 145 H 09/27/21 16:08: POC Glucose 164 H 09/28/21 00:06: Troponin I High Sens 17 09/28/21 00:26: POC Glucose 419 H 09/28/21 02:34: WBC 13.8 H, RBC 3.55 L, Hgb 10.7 L, Hct 34.3 L, MCV 96.6, MCH 30 .1, MCHC 31.2 L, RDW Std Deviation 49.0 H, RDW Coeff of Yudelka 13.8, Plt Count 233, MPV 10.9, Immature Gran % (Auto) 0.500, Neut % (Auto) 88.5 H, Lymph % (Auto) 4.5 L, [place] % (Auto) 6.4, Eos % (Auto) 0.0, Baso % (Auto) 0.1, Absolute Neuts (auto) 12.2 H, Absolute Lymphs (auto) 0.62 L, Nucleated RBC % 0 09/28/21 02:34: Sodium 128 L, Potassium 5.7 H, Chloride 97 L, Carbon Dioxide 23.0, Anion Gap 8, BUN 39 H, Creatinine 1.94 H, Estim Creat Clear Calc 23.26, Est GFR (MDRD) Af Amer 34 L, Est GFR (MDRD) Non-Af 28 L, BUN/Creatinine Ratio 20.1 H, Glucose 451 H*, Calcium 8.4 L 09/28/21 02:34: Troponin I High Sens 17 09/28/21 04:17: POC Glucose > 500 H* 09/28/21 05:29: POC Glucose 397 H 09/28/21 05:44: Troponin I High Sens 26 Micro: Microbiology 09/26/21 10:40 Interface Orders SARS-CoV-2 Antigen (Rapid) - Final Radiography Diagnostic Testing: Radiology Impression Lumbar Spine X-Ray 09/27/21 10:20 IMPRESSION: The localization instrument is seen posterior to the L4-L5 disc space level. Electronically Signed: Joaquin Rodney MD at 15:45 EST , Service support , Chest X-Ray 09/27/21 23:34 IMPRESSION: Degenerative changes, as described above. No demonstrated acute cardiopulmonary process. Electronically Signed: Saray Lance MD at 0:24 EST Tel , Service support , Physical Exam Narrative The patient was seen and examined postoperative day 1. She is lying in bed resting comfortably. Her pain is controlled. She denies any numbness tingling or weakness. The nurses reports she has not put out much urine. A bladder scan revealed 700 cc. She refused a [place] catheter. However she does state that since then she has been up to the bedside commode and did urinate. She was also complaining of some chest pain. The hospitalist was consulted for evaluation and work-up was negative. Const alert, oriented x3 and no apparent distress General Appearance: cooperative and comfortable HEENT head/scalp atraumatic Eyes EOMs intact bilaterally and conjunctivae normal Neck full ROM General: normal visual inspection Chest inspection of chest normal Resp normal respiratory effort and normal air movement Cardio regular rate, regular rhythm and peripheral pulses 2+ throughout GI soft to palpation, non-tender and non-distended Back/Spine Back/Spine Narrative: Dressing clean dry and intact Cervical Spine: cervical ROM normal Thoracic Spine / Upper Back: normal to inspection Lumbar Spine / Lower Back: normal to inspection Extremity normal to inspection, full ROM, normal capillary refill, no clubbing, cyanosis or edema and no calf tenderness Peripheral Pulses: Yes pulses 2+ throughout Skin no rashes or lesions noted General Skin Exam: no breakdown Neuro oriented x3, CN's II-XII intact bilaterally, moves all extremities, no focal motor deficits, no sensory deficits noted and deep tendon reflexes 2+ bilaterally Motor Exam: strength 5/5 throughout and muscle tone normal throughout Assessment & Plan Assessment/Plan (1) Lumbar stenosis: QUALIFIERS: Neurogenic claudication status: unspecified Qualified Code(s): M48.061 - Spinal stenosis, lumbar region without neurogenic claudication PLAN: Repeat bladder scan. If residuals greater than 400, straight cath, and call Dr. Medellin. Continue pain control and mobilization Consult case management for possible home health care for dressing changes Okay to discharge home when urinating normally and discharge arrangements made
[2021-09-28] MEDS: Albuterol 2.5 MG/3 ML VIAL.NEB. INHALATION ×3 (07:35→19:39)
[2021-09-28] MEDS: Budesonide Respules 0.5 MG/2 ML AMPUL.NEB. INHALATION ×2 (07:35→19:39)
[2021-09-28] MEDS: Lisinopril 20 MG Tablet PO (08:29)
[2021-09-28] MEDS: Pantoprazole Sodium 40 MG Tablet PO (08:30)
[2021-09-28] MEDS: hydroCHLOROthiazide 25 MG Tablet PO (08:30)
[2021-09-28] MEDS: Ensure Surgery 237 ML LIQUID PO ×3 (08:33→17:05)
[2021-09-28] MEDS: Aspirin 81 MG TAB.CHEW PO (08:33)
[2021-09-28] MEDS: Lactated Ringers 1,000 ML 100 ML IV ×2 (09:00→15:24)
--- NOTE | 2021-09-28 11:10 | CASEMGMT ---
Addendum entered by Iveth Bartlett 09/28/21 13:12: Call received back from [facility]. They are able to accept pt. SOC slated for either Sunday 10/01 or 10/02. Original Note: RN CM SEWER TAPPER CM to room to meet with patient for initial transition planning/care coordination assessment. RN CM introduced self and role at [facility]. Pt voices understanding and consents to assessment at this time. Pt resting in bed in no distress at this time. Pt is A/O at this time and answers all questions appropriately. Care providers, pharmacy, and demographics verified/updated at this time. PCP: SHENA Fofana Specialists: Dr Medellin--ortho Preferred Pharmacy: [facility] Retail Insurance: [facility] Prescription Benefit: Yes Living Will/HPOA: Pt does not currently have LW/HCPOA and declines info at this time. LNOK: Mother, Betzy Miller. 2 daughters who live in [facility]: Larissa Bauer and Irineo Miller Living Arrangements: Lives alone in one-story apt. 2 steps to enter. Independent prior to surgery. Transportation: Pt does not drive. Mother can assist on occasion. Pt has taxi vouchers and often uses taxi service. She states she cannot use [facility] DME: States has the following DME: rollator, functioning glucometer w/supplies, nebulizer Pt states no need for further DME at this time. HHC/SNF: No hx of either. Per Dr Medellin, pt to have dressing changes w/Mepilex 2 x's/week until pt is seen in his office, in 3 weeks. Pt states her mother may be able to help with dressing changes but she is not sure if she will be able to, as her mother does not drive often and does not like to go out when weather is cold. Pt is interested in HHC. Provided w/list of local C agencies. Pt does not have a preference of agency. Per Dr Medellin, pt is not to have PT at this time. Order placed for HHC: . Calls placed to both [facility] and [facility] and referrals made. Referral packet faxed to both. Pt voices no further concerns/needs at this time. Advised pt to ask for CM if any further questions/concerns/needs arise. Voices understanding. PLAN: Home w/HHC: , for dressing changes. Noe BSN RN CM
--- NOTE | 2021-09-28 11:10 | NURSING ---
at 0800 pt bladder scanned for 720ml, pt attempted to void without success. pt requests to eat breakfast and drink coffee and try to void again before straight cath. at 0900, pt still unable to void. straight cathed for 800ml. notified.
[2021-09-28 11:41] LABS: Bedside Glucose 177 mg/dL (70-110)
[2021-09-28] MEDS: Senna/Docusate Sodium 1 Tablet 2 TABLET PO ×2 (13:57→21:34)
--- NOTE | 2021-09-28 14:27 | NURSING ---
pt was able to void 200ml but PVR bladder scan showed 500ml remaining in bladder. straight cathed at this time for 600ml.
--- NOTE | 2021-09-28 15:15 | CASEMGMT ---
Social Work SW received referral from [facility] that pt would like waiver services. SW met with pt and explained home based waiver services program through medicaid. Pt would like to apply for htis program. SW completed application and faxed to [facility]. Pt is aware that this program will not start soon but someone from [facility] should be reaching out to her. Pt expressing understanding. TOBY Joiner
[2021-09-28] MEDS: BETHANECHOL CHLORIDE 25 MG TABLET 12.5 MG PO ×2 (16:59→21:44)
[2021-09-28 17:20] LABS: Bedside Glucose 275 mg/dL (70-110)
[2021-09-28] MEDS: Ondansetron 4 MG/2 ML Vial IV (17:45)
[2021-09-28] MEDS: Atorvastatin Calcium 80 MG Tablet PO (21:34)
[2021-09-28] MEDS: tiZANidine HCl 2 MG Tablet 4 MG PO (21:44)
[2021-09-28 21:50] LABS: Bedside Glucose 255 mg/dL (70-110)
[2021-09-29] VITALS (7 sets, daily range): BP systolic 120–169; BP diastolic 71–89; PULSE 80–102; RESP 16–20; TEMP 36.6–37.7; O2SAT 92–96
[2021-09-29] MEDS: Lactated Ringers 1,000 ML 100 ML IV ×3 (00:51→18:40)
[2021-09-29] MEDS: oxyCODONE 5 MG Tablet PO ×4 (02:50→20:35)
[2021-09-29] MEDS: Acetaminophen 500 MG Tablet 1000 MG PO ×3 (06:16→20:46)
[2021-09-29] MEDS: BETHANECHOL CHLORIDE 25 MG TABLET 12.5 MG PO ×3 (06:17→20:46)
[2021-09-29] MEDS: Gabapentin 300 MG Capsule PO ×3 (06:17→20:46)
--- NOTE | 2021-09-29 06:30 | PCM.PN.ORT ---
Subjective Subjective The patient was seen and examined. She was up with a walker going to the bathroom. She states she is still having pain at her surgery site in the lower back. She is having issues with urinary retention and a Zurita catheter has been placed. She denies any other complaints at this time. Objective Data Objective Data Vital Signs: Vital Signs Temp Pulse Resp BP Pulse Ox 97.9 F 91 16 126/75 H 92 09/29/21 02:00 09/29/21 02:00 09/29/21 02:00 09/29/21 02:00 09/29/21 02:00 Oxygen Flow Rate (L/min) 2 Oxygen Delivery Method Room Air Weight: 176 lb Body Mass Index (BMI) 34.3 Intake & Output: Intake and Output for Last 24 Hours 09/27/21 09/28/21 09/29/21 23:59 23:59 23:59 Intake Total 233.92 / 233.92 1521 / 1521 945 / 945 Output Total 250 / 250 2200 / 2200 Balance -16.08 / -16.08 -679 / -679 945 / 945 Lab / Micro Data Result Diagrams: 09/28/21 02:34 09/28/21 02:34 Labs: Laboratory Results - last 24 hr 09/28/21 05:44: Troponin I High Sens 26 09/28/21 11:25: POC Glucose 177 H 09/28/21 17:00: POC Glucose 275 H 09/28/21 21:42: POC Glucose 255 H Micro: Microbiology 09/26/21 10:40 Interface Orders SARS-CoV-2 Antigen (Rapid) - Final Physical Exam Const alert, oriented x3 and no apparent distress General Appearance: cooperative and comfortable HEENT head/scalp atraumatic Eyes EOMs intact bilaterally and conjunctivae normal Neck full ROM General: normal visual inspection Resp normal respiratory effort and normal air movement Cardio regular rate and regular rhythm Peripheral Pulses: pulses 2+ throughout GI soft to palpation, non-tender and non-distended Back/Spine Back/Spine Narrative: Dressing clean dry and intact Cervical Spine: cervical ROM normal Thoracic Spine / Upper Back: normal to inspection Lumbar Spine / Lower Back: normal to inspection Extremity normal to inspection, full ROM, normal capillary refill, no clubbing, cyanosis or edema and no calf tenderness Peripheral Pulses: Yes pulses 2+ throughout Skin no rashes or lesions noted General Skin Exam: no breakdown Neuro oriented x3, CN's II-XII intact bilaterally, moves all extremities, no focal motor deficits, no sensory deficits noted and deep tendon reflexes 2+ bilaterally Sensorium / Orientation: awake, alert and oriented to person Motor Exam: strength 5/5 throughout and muscle tone normal throughout Assessment & Plan Assessment/Plan (1) Lumbar stenosis: QUALIFIERS: Neurogenic claudication status: unspecified Qualified Code(s): M48.061 - Spinal stenosis, lumbar region without neurogenic claudication PLAN: Continue pain control and mobilization as tolerated Keep Zurita in place, continue Urecholine Possible urology consultation for evaluation of urinary retention Plan for discharge home after urinary issue addressed (2) Urinary retention:
[2021-09-29] MEDS: Albuterol 2.5 MG/3 ML VIAL.NEB. INHALATION ×2 (07:18→13:44)
[2021-09-29] MEDS: Budesonide Respules 0.5 MG/2 ML AMPUL.NEB. INHALATION (07:18)
[2021-09-29 08:33] LABS: Absolute Lymphocyte Count 1.25 X10^3/uL (0.83-4.51); Absolute Neutrophil Count 8.4 X10^3/uL (2.0-7.7); Basophil# 0.01 X10^3/uL; Basophil% 0.1 % (0-1); Eosinophil# 0.07 X10^3/uL; Eosinophils% 0.7 % (0-5); Hematocrit 31.2 % (37-47); Hemoglobin 10.1 g/dL (12.0-15.0); Lymphocyte # 1.25 X10^3/ul (0.83-4.51); Lymphocyte % 11.6 % (19-41); Mean Corp Hgb Conc 32.4 g/dL (32-36); Mean Corpuscular Hgb 30.3 pg (27.0-32.0); Mean Corpuscular Volume 93.7 fL (81-99); Mean Platelet Vol. 10.6 fl (6.2-12.0); Monocyte# 0.99 X10^3/uL; Monocyte% 9.2 % (0-10); NRBC Flagged by Analyzer 0 % (0-5); Neutrophil # 8.37 X10^3/uL (2.7-7.7); Platelet Count 191 K/mm3 (150-450); RBC Distribution Width CV 13.9 % (11.6-14.6); RBC Distribution Width SD 47.5 fl (35.1-43.9); Red Blood Count 3.33 M/mm3 (4.2-5.4); White Blood Count 10.7 K/mm3 (4.4-11.0)
[2021-09-29 09:03] LABS: Anion Gap 4 (5-15); BUN 32 mg/dL (7-18); BUN/Creat Ratio 28.1 RATIO (10-20); Calcium,Total 9.2 mg/dL (8.5-10.1); Chloride 103 mmol/L (98-107); Creatinine, Serum 1.14 mg/dL (0.55-1.02); EST Glomerular Filtration Rate 52 mL/min (>60); Est Glom Filt Rate - Afr Amer 63 mL/min (>60); Estimated Creatinine Clearance 39.58 ml/min; Glucose 207 mg/dL (74-106); Potassium 5.2 mmol/L (3.5-5.1); Sodium Level 135 mmol/L (136-145)
[2021-09-29] MEDS: Morphine 4 MG/ML Syringe IV (09:31)
[2021-09-29] MEDS: tiZANidine HCl 2 MG Tablet 4 MG PO (09:33)
[2021-09-29] MEDS: Senna/Docusate Sodium 1 Tablet 2 TABLET PO ×2 (10:02→18:42)
[2021-09-29] MEDS: Aspirin 81 MG TAB.CHEW PO (10:02)
[2021-09-29] MEDS: Pantoprazole Sodium 40 MG Tablet PO (10:02)
[2021-09-29] MEDS: Insulin Lispro 100 UNIT/ML INSULN.PEN SC ×4 (10:04→20:44)
[2021-09-29 12:51] LABS: Bedside Glucose 224 mg/dL (70-110)
[2021-09-29] MEDS: Ensure Surgery 237 ML LIQUID PO (12:57)
[2021-09-29 17:55] LABS: Bedside Glucose 162 mg/dL (70-110)
[2021-09-29] MEDS: Atorvastatin Calcium 80 MG Tablet PO (20:47)
[2021-09-29 20:56] LABS: Bedside Glucose 202 mg/dL (70-110)
[2021-09-30] MEDS: oxyCODONE 5 MG Tablet PO ×4 (00:36→13:59)
[2021-09-30 02:29] VITALS: BP 138/90; PULSE 88; RESP 18; TEMP 36.9; O2SAT 92
[2021-09-30] MEDS: Lactated Ringers 1,000 ML 100 ML IV (04:11)
[2021-09-30 05:03] LABS: Absolute Lymphocyte Count 1.76 X10^3/uL (0.83-4.51); Absolute Neutrophil Count 6.4 X10^3/uL (2.0-7.7); Basophil# 0.01 X10^3/uL; Basophil% 0.1 % (0-1); Eosinophils% 1.1 % (0-5); Hematocrit 31.6 % (37-47); Lymphocyte # 1.76 X10^3/ul (0.83-4.51); Lymphocyte % 19.2 % (19-41); Mean Corp Hgb Conc 31.6 g/dL (32-36); Mean Corpuscular Hgb 29.9 pg (27.0-32.0); Mean Corpuscular Volume 94.6 fL (81-99); Mean Platelet Vol. 11.2 fl (6.2-12.0); Monocyte# 0.88 X10^3/uL; Monocyte% 9.6 % (0-10); NRBC Flagged by Analyzer 0 % (0-5); Neutrophil % 69.6 % (47-70); Platelet Count 210 K/mm3 (150-450); RBC Distribution Width CV 13.9 % (11.6-14.6); Red Blood Count 3.34 M/mm3 (4.2-5.4); White Blood Count 9.2 K/mm3 (4.4-11.0)
[2021-09-30] MEDS: Acetaminophen 500 MG Tablet 1000 MG PO ×2 (05:18→13:59)
[2021-09-30] MEDS: Gabapentin 300 MG Capsule PO ×2 (05:19→13:59)
[2021-09-30] MEDS: BETHANECHOL CHLORIDE 25 MG TABLET 12.5 MG PO ×2 (05:19→14:00)
[2021-09-30 05:30] LABS: Anion Gap 4 (5-15); BUN 20 mg/dL (7-18); BUN/Creat Ratio 23.8 RATIO (10-20); Calcium,Total 8.8 mg/dL (8.5-10.1); Chloride 104 mmol/L (98-107); Creatinine, Serum 0.84 mg/dL (0.55-1.02); EST Glomerular Filtration Rate 74 mL/min (>60); Est Glom Filt Rate - Afr Amer 90 mL/min (>60); Estimated Creatinine Clearance 53.72 ml/min; Glucose 89 mg/dL (74-106); Potassium 4.3 mmol/L (3.5-5.1); Sodium Level 135 mmol/L (136-145)
[2021-09-30 06:50] LABS: Bedside Glucose 109 mg/dL (70-110)
[2021-09-30 07:54] VITALS: PULSE 82; RESP 16; O2SAT 99
[2021-09-30] MEDS: Albuterol 2.5 MG/3 ML VIAL.NEB. INHALATION (07:55)
[2021-09-30] MEDS: Budesonide Respules 0.5 MG/2 ML AMPUL.NEB. INHALATION (07:55)
[2021-09-30 08:30] VITALS: BP 144/70; PULSE 74; RESP 18; TEMP 37; O2SAT 95
[2021-09-30] MEDS: Aspirin 81 MG TAB.CHEW PO (08:35)
--- NOTE | 2021-09-30 09:00 | PCM.PN.HOSP ---
Subjective Subjective Doing well, no issues overnight. Was able to finally sleep well. Objective Data Objective Data Vital Signs: Vital Signs Temp Pulse Resp BP Pulse Ox 98.6 F 74 18 144/70 H 95 09/30/21 08:30 09/30/21 08:30 09/30/21 08:30 09/30/21 08:30 09/30/21 08:30 Oxygen Flow Rate (L/min) 2 Oxygen Delivery Method Room Air Weight: 176 lb Body Mass Index (BMI) 34.3 Intake & Output: Intake and Output for Last 24 Hours 09/29/21 09/30/21 10/01/21 03:59 03:59 03:59 Intake Total 2360 / 2360 2621.66 / 2621.66 951.67 / 951.67 Output Total 2200 / 2200 4500 / 4500 Balance 160 / 160 -1878.34 / -1878.34 951.67 / 951.67 Lab / Micro Data Result Diagrams: 09/30/21 04:25 09/30/21 04:25 Labs: Laboratory Results - last 24 hr 09/29/21 08:22: Sodium 135 L, Potassium 5.2 H, Chloride 103, Carbon Dioxide 28.0, Anion Gap 4 L, BUN 32 H, Creatinine 1.14 H, Estim Creat Clear Calc 39.58, Est GFR (MDRD) Af Amer 63, Est GFR (MDRD) Non-Af 52 L, BUN/Creatinine Ratio 28.1 H, Glucose 207 H, Calcium 9.2 09/29/21 12:43: POC Glucose 224 H 09/29/21 17:25: POC Glucose 162 H 09/29/21 20:42: POC Glucose 202 H 09/30/21 04:25: WBC 9.2, RBC 3.34 L, Hgb 10.0 L, Hct 31.6 L, MCV 94.6, MCH 29.9, MCHC 31.6 L, RDW Std Deviation 49.0 H, RDW Coeff of Yudelka 13.9, Plt Count 210, MPV 11.2, Immature Gran % (Auto) 0.400, Neut % (Auto) 69.6, Lymph % (Auto) 19.2, Saunders % (Auto) 9.6, Eos % (Auto) 1.1, Baso % (Auto) 0.1, Absolute Neuts (auto) 6.4, Absolute Lymphs (auto) 1.76, Nucleated RBC % 0 09/30/21 04:25: Sodium 135 L, Potassium 4.3, Chloride 104, Carbon Dioxide 27.0, Anion Gap 4 L, BUN 20 H, Creatinine 0.84, Estim Creat Clear Calc 53.72, Est GFR (MDRD) Af Amer 90, Est GFR (MDRD) Non-Af 74, BUN/Creatinine Ratio 23.8 H, Glucose 89, Calcium 8.8 09/30/21 06:43: POC Glucose 109 Micro: Microbiology 09/26/21 10:40 Interface Orders SARS-CoV-2 Antigen (Rapid) - Final Physical Exam Narrative Const alert, oriented x3 and no apparent distress General Appearance: cooperative HEENT normocephalic and moist oral mucous membranes Eyes PERRL, EOMs intact bilaterally and conjunctivae normal Neck supple and no JVD Resp normal respiratory effort, no retractions, no use of accessory muscles and clear to auscultation bilaterally Auscultation: Negative for crackles, rales, rhonchi or wheezes Cardio regular rate, regular rhythm, S1 normal heart sound, S2 normal heart sound and no murmurs GI soft to palpation, non-tender and non-distended; Negative for hepatosplenomegaly Extremity no clubbing, cyanosis or edema Skin no rashes or lesions noted Neuro no focal motor deficits and no sensory deficits noted Psych affect normal Appearance: appropriate Assessment & Plan Assessment/Plan (1) Lumbar stenosis: QUALIFIERS: Neurogenic claudication status: unspecified Qualified Code(s): M48.061 - Spinal stenosis, lumbar region without neurogenic claudication PLAN: 1. Postop bilateral lumbar laminectomies 09/27/2021 with urinary retention/DELGADO ? Pain management per primary ? PT/OT ? Continue with aspirin per primary ? Should have a Zurita placed, will remove today and would voiding trial. If she is unable to void then will have a Zurita placed ? Renal function and DELGADO have resolved, from a medical standpoint she is okay for discharge today. 2. HTN/HLD ? Blood pressures stable ? Given the rise in her creatinine on this admission, would hold her home pressure patient's for another day or 2 and recommend outpatient follow-up with her PCP for renal function monitoring. ? Continue with Lipitor 3. DM2 ? Continue with her home insulin ? Accu-Cheks AC at bedtime Will sign off DVT: SCDs Charges/Coding Visit Charges Inpatient E&M: 11963 Subs Hosp L2
[2021-09-30] MEDS: Magnesium Hydroxide 30 ML UDC PO (10:07)
[2021-09-30] MEDS: Senna/Docusate Sodium 1 Tablet 2 TABLET PO (10:08)
[2021-09-30] MEDS: Pantoprazole Sodium 40 MG Tablet PO (10:09)
[2021-09-30 11:50] LABS: Bedside Glucose 178 mg/dL (70-110)
[2021-09-30] MEDS: Insulin Lispro 100 UNIT/ML INSULN.PEN SC (12:08)
[2021-09-30 13:23] VITALS: BP 144/70; PULSE 80; RESP 18; TEMP 36.8; O2SAT 97
== END 2021-09-30 15:15 | disposition home health service (06) | DRG 304 ==
LOC: ACINP 08:27 → MS2 09-28 07:10
PROVIDERS: Anesthesiology; Hospitalist; Admitting Provider Orthopaedic Surgery; PCP Nurse Practitioner Primary Care; Referring Provider Orthopaedic Surgery; Visit Provider Family Medicine
PROC: 4A11X4G Monitoring of Peripheral Nervous Electrical Activity, Intraoperative, External Approach (ICD-10-PCS; CPT 63030; principal; 2021-09-27 09:50)
DX: M48.061 Spinal stenosis, lumbar region without neurogenic claudication (principal); N17.9 Acute kidney failure, unspecified; E11.22 Type 2 diabetes mellitus with diabetic chronic kidney disease; E11.65 Type 2 diabetes mellitus with hyperglycemia; Z79.4 Long term (current) use of insulin; E11.29 Type 2 diabetes mellitus with other diabetic kidney complication; M47.26 Other spondylosis with radiculopathy, lumbar region; M51.36 Other intervertebral disc degeneration, lumbar region; I12.9 Hypertensive chronic kidney disease with stage 1 through stage 4 chronic kidney disease, or unspecified chronic kidney disease; F17.210 Nicotine dependence, cigarettes, uncomplicated; N18.2 Chronic kidney disease, stage 2 (mild); E78.5 Hyperlipidemia, unspecified; J45.909 Unspecified asthma, uncomplicated; R07.9 Chest pain, unspecified; Z79.82 Long term (current) use of aspirin
CPT/HCPCS: 36415; 71045; 71046; 72100; 76000; 80048; 82962; 83036; 84484; 85025; 85610; 85730; 87426; 93005; 94640; 97110; 97162; 99251; C1713; C9803; J7120; A4216; G0463; J0330; J2405; J3490

== ENCOUNTER 2021-10-08 01:01 | Emergency (ER) | payer MEDICAID, SELFPAY ==
[2021-10-08 01:02] VITALS: BP 178/130; PULSE 103; RESP 18; TEMP 36.8; O2SAT 100; BMI 35.7
--- NOTE | 2021-10-08 02:00 | EDS_ITS ---
HPI History of Present Illness Chief Complaint: Back Informant: patient Onset/Context/Timing Onset: Today Context: Gradual Onset Timing: Continuous Quality: Sharp and Burning Location: Lumbar, Buttock, Right Leg and Left Leg Worsened by: improves with Nothing Relieved by: Nothing Associated Symptoms Associated Symptoms: Numbness, Tingling, Radiation to Right Leg and Radiation to Left Leg; Negative for Fever, Abdominal Pain, Dysuria, Unable to Ambulate, Unable to Transfer, Urinary Retention, Urinary Incontinence, Constipation and Fecal Incontinence Narrative Narrative: Patient presents with back pain that became worse tonight. Patient states it has gradually gotten worse throughout the night tonight. Patient states it has been constant. Patient describes it as sharp and burning. Patient states it is in her low back and radiates to both hips and both lower extremities. Patient denies any bowel or bladder changes. Patient denies any saddle anesthesia. Patient states she had recent back surgery by Dr. Medellin on 09/27/2021. Patient denies any fevers or chills. Patient denies any discharge or drainage from the wound. Patient denies any trauma or injury. [facility] Medical History Anxiety Arthritis Asthma Back pain Back pain Cardiology follow-up encounter Chronic neck and back pain COPD (chronic obstructive pulmonary disease) Coronary artery calcification seen on CAT scan Depression Diabetes Dietary restriction Difficulty balancing Essential hypertension Gastric reflux High cholesterol History of arthritis History of echocardiogram History of edema History of pain when walking History of renal disease History of stomach ulcers History of stress test Hyperlipidemia Hypertension Injury of head and neck Insulin dependent diabetes mellitus Knee pain Migraine headache Obesity Shortness of breath on exertion Shoulder pain Smoker Strain of muscle, fascia and tendon of pelvis, initial encounter Strain of right hip and thigh Strain of right inguinal region Strain of unspecified muscles, fascia and tendons at thigh level, right thigh, initial encounter Syncope Thyroid disease Type 2 diabetes mellitus Walker as ambulation aid Wears glasses Wears hearing aid Home Medications insulin glargine 100 unit/mL (3 mL) subcutaneous pen 42 unit SC DAILY 11/03/20 [History Last Taken Unknown] albuterol sulfate 90 mcg/actuation aerosol inhaler 2 puff INHALATION Q6H PRN 06/14/21 [History Last Taken 09/27/21] atorvastatin 80 mg tablet 80 mg PO QHS 06/14/21 [History Last Taken 09/27/21] budesonide-formoterol HFA 160 mcg-4.5 mcg/actuation aerosol inhaler 2 puff INHALATION BID 06/14/21 [History Last Taken 09/27/21] gabapentin 300 mg capsule 300 mg PO TID 06/14/21 [History Last Taken Unknown] insulin lispro 100 unit/mL subcutaneous pen 8 unit SUBCUT BID PRN ml 06/14/21 [ History Last Taken Unknown] lisinopril 20 mg-hydrochlorothiazide 25 mg tablet 1 tab PO BID 06/14/21 [History Last Taken 09/27/21] pantoprazole 40 mg tablet,delayed release 40 mg PO DAILY 06/14/21 [History Last Taken 09/27/21] tizanidine 4 mg capsule 4 mg PO BID PRN 06/14/21 [History Last Taken Unknown] hydrocodone-acetaminophen 1 tab PO Q6H 7 Days #28 tab 09/27/21 [Rx Last Taken Unknown] Allergy/AdvReac Type Severity Reaction Status Date / Time duloxetine [From Cymbalta] Allergy Unknown Verified 09/13/21 09:55 Penicillins Allergy NEEDS Verified 09/13/21 09:55 FOLLOW-UP pregabalin [From Lyrica] Allergy Unknown Verified 09/13/21 09:55 NSAIDS (Non-Steroidal AdvReac Upset Verified 09/13/21 09:55 Anti-Inflamma Stomach Family History Other Cancer Diabetes Surgical History History of ankle surgery History of History of carpal tunnel release History of hysterectomy History of open reduction and internal fixation (ORIF) procedure History of partial thyroidectomy Social History Smoking Status: Current every day smoker tobacco type: cigarettes alcohol intake: never ROS ROS ED Constitutional Constitutional ED: Reports sweats; Denies chills or fever(s) Eyes Eyes: Denies blurry vision or change in vision ENT ENT ED: Denies rhinorrhea or sore throat Cardiovascular Cardiovascular: Denies chest pain or palpitations Respiratory/Chest Respiratory/Chest: Denies cough or dyspnea Gastrointestinal Gastrointestinal: Reports nausea; Denies abdominal pain or vomiting Genitourinary Genitourinary ED: Denies dysuria or hematuria Musculoskeletal Musculoskeletal: Reports back pain; Denies neck pain Integumentary Denies abscess or rash Neurologic Neurologic: Reports headache(s); Denies weakness Allergic/Immunologic Allergic/Immunologic ED: Denies mouth swelling or urticaria EXAM Physical Exam Const Vital Signs: 10/08/21 01:02 Temperature 98.2 F Temperature Source Oral Pulse Rate 103 H Respiratory Rate 18 Blood Pressure 178/130 H Blood Pressure Mean 146 Pulse Ox 100 Oxygen Delivery Method Room Air Positive well nourished, well developed and obese General Appearance ED: well developed Nutritional Appearance: obese Neck supple and no JVD Back/Spine Back/Spine Narrative: Incision is healing well. Sutures are in place. There is no erythema or warmth. There is no induration. There is no discharge or drainage. There are no signs of infection. There is mild tenderness to palpation. Extremity normal to inspection General Extremety ED: Negative for edema or tenderness General Extremity: Negative for edema Neuro oriented x3 and no sensory deficits noted Sensorium / Orientation: alert Motor Exam: strength 5/5 throughout Psych mental status grossly normal MDM MDM MDM Narrative Medical decision making narrative: Patient was given injection of morphine here. Patient was advised that we do not refill narcotic medications in the emergency department. Patient was instructed to follow-up with her orthopedic surgeon and pain management physician as scheduled. Patient was instructed return if any incontinence of urine or stool. Patient was instructed return if any fevers or chills. Patient was instructed to return if worse in any way. Patient understood and was agreeable with the plan. All questions were answered. Discharge Plan Triage Chief Complaint: Back ED Provider: Oni Chavez Dx/Rx/DC Orders Clinical Impression: Postoperative back pain Instructions: ED Back Pain (Acute or Chronic), ED Post Op Wound Check, Pain Prescriptions: No Action atorvastatin 80 mg tablet 80 mg PO QHS RF: 0 budesonide-formoterol [Symbicort] 160-4.5 mcg/actuation HFA aerosol inhaler 2 puff inhalation BID RF: 0 albuterol sulfate 90 mcg/actuation HFA aerosol inhaler 2 puff inhalation Q6H PRN (Reason: SOB) RF: 0 gabapentin 300 mg capsule 300 mg PO TID RF: 0 lisinopril-hydrochlorothiazide 20-25 mg tablet 1 tab PO BID RF: 0 insulin lispro 100 unit/mL insulin pen 8 unit subcut BID PRN (Reason: SLIDING SCALE) RF: 0 pantoprazole 40 mg tablet,delayed release (DR/EC) 40 mg PO DAILY RF: 0 tizanidine 4 mg capsule 4 mg PO BID PRN (Reason: Muscle Pain) RF: 0 insulin glargine 100 unit/mL (3 mL) insulin pen 42 unit SC DAILY RF: 0 hydrocodone-acetaminophen 5-325 mg tablet 1 tab PO Q6H 7 Days Qty: 28 RF: 0 Primary Care Provider: Gris Fofana NP Referrals: Nadia Ibanez MD [STAFF PHYSICIAN] - [facility] appointment Beck Medellin DO [STAFF PHYSICIAN] - [facility] appointment Gris Fofana NP, CHAIN OFFBEARER-C [Primary Care Provider] - 5-7 Days Disposition Disposition: Home, Self Care
[2021-10-08] MEDS: Morphine 4 MG/ML Syringe IM (02:14)
[2021-10-08 02:17] VITALS: BP 136/75; PULSE 88; RESP 16; O2SAT 98
== END 2021-10-08 02:18 | disposition home or self-care (01) ==
PROVIDERS: Emergency Provider Emergency Medicine; PCP Nurse Practitioner Primary Care; Visit Provider Emergency Medicine
DX: M54.9 Dorsalgia, unspecified (principal); J44.9 Chronic obstructive pulmonary disease, unspecified; E11.9 Type 2 diabetes mellitus without complications; Z79.4 Long term (current) use of insulin; I10 Essential (primary) hypertension; E78.5 Hyperlipidemia, unspecified; E78.00 Pure hypercholesterolemia, unspecified; I25.10 Atherosclerotic heart disease of native coronary artery without angina pectoris; Z98.890 Other specified postprocedural states
CPT/HCPCS: 96372; 99285

== ENCOUNTER 2021-10-19 14:17 | Emergency (ER) | payer MEDICAID, SELFPAY ==
[2021-10-19 14:19] VITALS: BP 153/93; PULSE 100; RESP 18; TEMP 36.6; O2SAT 97; BMI 36.1
--- NOTE | 2021-10-19 15:55 | ED.VIS.BACK ---
HPI History of Present Illness Chief Complaint: Back Narrative Narrative: 55-year-old female presenting with back pain. She has a history of lumbar stenosis and has recently had surgery by Dr. Sue from orthopedics. She states that chronic after the surgery she was prescribed a short prescription for pain medication and was referred to pain management. Patient states that when she went to pain management they did not want to prescribe her narcotic medication and wanted to give her Suboxone. She also states that Dr. Ibanez tested her urine and found Suboxone in her system. She states that in between the time that she had surgery and saw pain management she was in the emergency room and had a shot of morphine. She states that she believes that the ER doctor ordered Suboxone and that is why she tested positive. Patient states she has no history of using Suboxone. Patient has no loss of bladder or bowel control. She denies saddle anesthesia. Patient states that she is ambulatory with antalgic gait. Patient also request to have her blood sugar checked. [facility] Medical History Anxiety Arthritis Asthma Back pain Back pain Cardiology follow-up encounter Chronic neck and back pain COPD (chronic obstructive pulmonary disease) Coronary artery calcification seen on CAT scan Depression Diabetes Dietary restriction Difficulty balancing Essential hypertension Gastric reflux High cholesterol History of arthritis History of echocardiogram History of edema History of pain when walking History of renal disease History of stomach ulcers History of stress test Hyperlipidemia Hypertension Injury of head and neck Insulin dependent diabetes mellitus Knee pain Migraine headache Obesity Shortness of breath on exertion Shoulder pain Smoker Strain of muscle, fascia and tendon of pelvis, initial encounter Strain of right hip and thigh Strain of right inguinal region Strain of unspecified muscles, fascia and tendons at thigh level, right thigh, initial encounter Syncope Thyroid disease Type 2 diabetes mellitus Walker as ambulation aid Wears glasses Wears hearing aid Home Medications insulin glargine 100 unit/mL (3 mL) subcutaneous pen 42 unit SC DAILY 11/03/20 [History Last Taken Unknown] albuterol sulfate 90 mcg/actuation aerosol inhaler 2 puff INHALATION Q6H PRN 06/14/21 [History Last Taken 09/27/21] atorvastatin 80 mg tablet 80 mg PO QHS 06/14/21 [History Last Taken 09/27/21] budesonide-formoterol HFA 160 mcg-4.5 mcg/actuation aerosol inhaler 2 puff INHALATION BID 06/14/21 [History Last Taken 09/27/21] gabapentin 300 mg capsule 300 mg PO TID 06/14/21 [History Last Taken Unknown] insulin lispro 100 unit/mL subcutaneous pen 8 unit SUBCUT BID PRN ml 06/14/21 [History Last Taken Unknown] lisinopril 20 mg-hydrochlorothiazide 25 mg tablet 1 tab PO BID 06/14/21 [History Last Taken 09/27/21] pantoprazole 40 mg tablet,delayed release 40 mg PO DAILY 06/14/21 [History Last Taken 09/27/21] tizanidine 4 mg capsule 4 mg PO BID PRN 06/14/21 [History Last Taken Unknown] hydrocodone-acetaminophen 1 tab PO Q6H 7 Days #28 tab 09/27/21 [Rx Last Taken Unknown] Allergy/AdvReac Type Severity Reaction Status Date / Time duloxetine [From Cymbalta] Allergy Unknown Verified 10/19/21 14:22 Penicillins Allergy NEEDS Verified 10/19/21 14:22 FOLLOW-UP pregabalin [From Lyrica] Allergy Unknown Verified 10/19/21 14:22 NSAIDS (Non-Steroidal AdvReac Upset Verified 10/19/21 14:22 Anti-Inflamma Stomach Family History Other Cancer Diabetes Surgical History History of ankle surgery History of History of carpal tunnel release History of hysterectomy History of open reduction and internal fixation (ORIF) procedure History of partial thyroidectomy Social History Smoking Status: Current every day smoker tobacco type: cigarettes alcohol intake: never ROS ROS ED Constitutional Constitutional ED: Denies chills or fever(s) Eyes Eyes: Denies blurry vision ENT ENT ED: Denies rhinorrhea or sore throat Cardiovascular Cardiovascular: Denies chest pain or palpitations Respiratory/Chest Respiratory/Chest: Denies dyspnea or sputum Gastrointestinal Gastrointestinal: Reports nausea; Denies abdominal pain or vomiting Genitourinary Genitourinary ED: Denies dysuria or hematuria Musculoskeletal Musculoskeletal: Denies arthralgias or myalgias Neurologic Neurologic: Denies headache(s) or paresthesias EXAM Physical Exam Const Vital Signs: 10/19/21 14:19 Temperature 97.9 F Temperature Source Temporal Pulse Rate 100 Respiratory Rate 18 Blood Pressure 153/93 H Blood Pressure Mean 113 Pulse Ox 97 Oxygen Delivery Method Room Air Positive well nourished and obese General Appearance ED: NAD Nutritional Appearance: obese HEENT Reports moist mucous membranes Negative for trauma Eyes PERRL and EOMs intact bilaterally Resp clear to auscultation bilaterally Cardio regular rate and regular rhythm Back/Spine Back/Spine Narrative: Sutures in place over the lumbar spine. There is no drainage. There is no dehiscence. There is some tenderness to palpation here without crepitance. Extremity normal to inspection General Extremety ED: Negative for edema or tenderness General Extremity: Negative for edema Neuro oriented x3 Sensorium / Orientation: alert MDM MDM MDM Narrative Medical decision making narrative: Patient's blood sugar was checked and was greater than 500. She did report that it was over 400 at home. I ordered her a dose of IM morphine prior to checking her blood sugar and this was given. When her blood sugar was elevated I did order basic lab work to determine if she was dehydrated or she had an anion gap and after this the patient eloped. Impression: 1. Back pain 2. Hyperglycemia Lab Data Attestation: I reviewed the patient's lab results. Labs: Laboratory Results - last 24 hr 10/19/21 16:03 POC Glucose > 500 H* Discharge Plan Triage Chief Complaint: Back ED Provider: Don Jose Dx/Rx/DC Orders Instructions: ED Back Pain (Acute or Chronic), ED Diabetic Hyperglycemia Prescriptions: No Action atorvastatin 80 mg tablet 80 mg PO QHS RF: 0 budesonide-formoterol [Symbicort] 160-4.5 mcg/actuation HFA aerosol inhaler 2 puff inhalation BID RF: 0 albuterol sulfate 90 mcg/actuation HFA aerosol inhaler 2 puff inhalation Q6H PRN (Reason: SOB) RF: 0 gabapentin 300 mg capsule 300 mg PO TID RF: 0 lisinopril-hydrochlorothiazide 20-25 mg tablet 1 tab PO BID RF: 0 insulin lispro 100 unit/mL insulin pen 8 unit subcut BID PRN (Reason: SLIDING SCALE) RF: 0 pantoprazole 40 mg tablet,delayed release (DR/EC) 40 mg PO DAILY RF: 0 tizanidine 4 mg capsule 4 mg PO BID PRN (Reason: Muscle Pain) RF: 0 insulin glargine 100 unit/mL (3 mL) insulin pen 42 unit SC DAILY RF: 0 hydrocodone-acetaminophen 5-325 mg tablet 1 tab PO Q6H 7 Days Qty: 28 RF: 0 Primary Care Provider: Gris Fofana NP Referrals: Gris Fofana NP, PROFESSOR/NURSE ANESTHETIST-C [Primary Care Provider] - Disposition Disposition: Elopement Discharge Date/Time: 10/19/21 17:34
[2021-10-19] MEDS: Morphine 4 MG/ML Syringe IM (15:58)
[2021-10-19 16:06] LABS: Bedside Glucose > 500 mg/dL (70-110)
--- NOTE | 2021-10-19 16:58 | ED.RN ---
pt left without bloodwork being done or paperwork.
== END 2021-10-19 17:34 | disposition left against medical advice (07) ==
PROVIDERS: Emergency Provider Student in an Organized Health Care Education/Training Program; PCP Nurse Practitioner Primary Care; Visit Provider Student in an Organized Health Care Education/Training Program
DX: M54.9 Dorsalgia, unspecified (principal); J44.9 Chronic obstructive pulmonary disease, unspecified; E11.65 Type 2 diabetes mellitus with hyperglycemia; Z79.4 Long term (current) use of insulin; I25.10 Atherosclerotic heart disease of native coronary artery without angina pectoris; E78.00 Pure hypercholesterolemia, unspecified; E78.5 Hyperlipidemia, unspecified; I10 Essential (primary) hypertension
CPT/HCPCS: 82962; 96360; 96372; 99283

== ENCOUNTER 2021-11-11 09:14 | Emergency (ER) | payer MEDICAID, SELFPAY ==
[2021-11-11 09:15] VITALS: BP 142/82; PULSE 94; RESP 20; TEMP 36.6; O2SAT 100; BMI 32.1
--- NOTE | 2021-11-11 10:03 | ED.RN ---
late entry: PT EXTREMELY ANGRY UPON ENTERING EMERGENCY DEPARTMENT. PT REFUSES TO WEAR A MASK SCREAMING THE MANDATE IS LIFTED. EXPLAINED TO PT THAT IN THE HOSPITAL THE MASK WAS STILL REQUIRED. WHILE ATTEMPTING TO TRIAGE PT SHE BECOMES IRRATE AND REFUSES TO ANSWER QUESTIONS. THIS RN EXPLAINED THAT I WAS JUST ASKING REQUIRED INFORMATION. PT YELLS AT THIS RN I NEED A DR NOW. THIS RN ATTEMPTED TO REASSURE PT AND EXPLAINED THAT THE PHYSICIAN WAS WITH A CRITICAL PT AND WOULD SEE HER SOON HE COULD. PT THEN YELLED I DON'T CARE ABOUT ANY OTHER PT AND HE NEEDS TO SEE ME NOW PT REMINDED THAT THAT WAS NOT POSSIBLE. PT THEN STATES WELL YOU GIVE ME A PAIN SHOT, PT AWARE THAT THAT WAS NOT POSSIBLE. PD NOTIFIED OF PT
--- NOTE | 2021-11-11 10:50 | ED.RN ---
PT WALKED PAST THE NURSES STATION, PT YELLING I CALLED MY MOM, SHE IS TAKING ME TO ANOTHER FACILITY
== END 2021-11-11 11:06 | disposition left against medical advice (07) ==
LOC: ED 11:03
PROVIDERS: PCP Nurse Practitioner Primary Care
DX: M54.9 Dorsalgia, unspecified (principal)

== ENCOUNTER 2021-11-16 08:45 | Emergency (ER) | payer MEDICAID, SELFPAY ==
[2021-11-16 08:46] VITALS: BP 108/83; PULSE 88; RESP 22; TEMP 36.7; O2SAT 98; BMI 32.8
--- NOTE | 2021-11-16 09:54 | ED.VIS.BACK ---
HPI History of Present Illness Chief Complaint: Back Informant: patient Onset/Context/Timing Onset: Days Context: Sudden Onset Injury: fall Timing: Continuous Quality: Dull and Aching Location: Lumbar Current Severity: Mild Maximum Severity: Mild Worsened by: improves with Movement Relieved by: Remaining Still Associated Symptoms Associated Symptoms: Negative for Numbness, Tingling, Radiation to Right Leg, Radiation to Left Leg, Fever, Abdominal Pain, Dysuria, Unable to Ambulate, Unable to Transfer, Urinary Retention, Urinary Incontinence, Constipation and Fecal Incontinence Narrative Narrative: 55-year-old female has a history of back problems who has had lumbar fusion x2 with hardware over L4 and 5. Also history of diabetes. States that she tripped and fell over the weekend landed on her knees but since that time had low back pain. She was seen in [facility] emergency department discharged home. She denies any bowel or bladder incontinence. She denies any numbness in her lower extremities. She denies any other injuries. Prior similar symptoms: Yes Recent Illness/Hospitalization: Yes [facility] Medical History Anxiety Arthritis Asthma Back pain Back pain Cardiology follow-up encounter Chronic neck and back pain COPD (chronic obstructive pulmonary disease) Coronary artery calcification seen on CAT scan Depression Diabetes Dietary restriction Difficulty balancing Essential hypertension Gastric reflux High cholesterol History of arthritis History of echocardiogram History of edema History of pain when walking History of renal disease History of stomach ulcers History of stress test Hyperlipidemia Hypertension Injury of head and neck Insulin dependent diabetes mellitus Knee pain Migraine headache Obesity Shortness of breath on exertion Shoulder pain Smoker Strain of muscle, fascia and tendon of pelvis, initial encounter Strain of right hip and thigh Strain of right inguinal region Strain of unspecified muscles, fascia and tendons at thigh level, right thigh, initial encounter Syncope Thyroid disease Type 2 diabetes mellitus Walker as ambulation aid Wears glasses Wears hearing aid Home Medications insulin glargine 100 unit/mL (3 mL) subcutaneous pen 42 unit SC DAILY 11/03/20 [History Last Taken Unknown] albuterol sulfate 90 mcg/actuation aerosol inhaler 2 puff INHALATION Q6H PRN 06/14/21 [History Last Taken 09/27/21] atorvastatin 80 mg tablet 80 mg PO QHS 06/14/21 [History Last Taken 09/27/21] budesonide-formoterol HFA 160 mcg-4.5 mcg/actuation aerosol inhaler 2 puff INHALATION BID 06/14/21 [History Last Taken 09/27/21] insulin lispro 100 unit/mL subcutaneous pen 8 unit SUBCUT BID PRN ml 06/14/21 [History Last Taken Unknown] lisinopril 20 mg-hydrochlorothiazide 25 mg tablet 1 tab PO BID 06/14/21 [History Last Taken 09/27/21] pantoprazole 40 mg tablet,delayed release 40 mg PO DAILY 06/14/21 [History Last Taken 09/27/21] tizanidine 4 mg capsule 4 mg PO BID PRN 06/14/21 [History Last Taken Unknown] Allergy/AdvReac Type Severity Reaction Status Date / Time duloxetine [From Cymbalta] Allergy Unknown Verified 11/16/21 08:46 Penicillins Allergy NEEDS Verified 11/16/21 08:46 FOLLOW-UP pregabalin [From Lyrica] Allergy Unknown Verified 11/16/21 08:46 NSAIDS (Non-Steroidal AdvReac Upset Verified 11/16/21 08:46 Anti-Inflamma Stomach Family History Other Cancer Diabetes Surgical History History of ankle surgery History of History of carpal tunnel release History of hysterectomy History of open reduction and internal fixation (ORIF) procedure History of partial thyroidectomy Social History Smoking Status: Current every day smoker tobacco type: cigarettes alcohol intake: never ROS ROS ED ROS Narrative Denies recent illness. Review of Systems ROS Unobtainable: Denies due to encephalopathy Constitutional Constitutional ED: Denies fever(s) Eyes Eyes: Denies change in vision ENT ENT ED: Denies ear pain Cardiovascular Cardiovascular: Denies chest pain Respiratory/Chest Respiratory/Chest: Denies dyspnea Gastrointestinal Gastrointestinal: Denies abdominal pain, diarrhea or vomiting Genitourinary Genitourinary ED: Denies dysuria or hematuria Musculoskeletal Musculoskeletal: Reports back pain; Denies myalgias Integumentary Denies rash Neurologic Neurologic: Denies headache(s) Endocrine Endocrinology: Denies polyuria Hematologic/Lymphatic Hematologic/Lymphatic: Denies easy bruising Allergic/Immunologic Allergic/Immunologic ED: Denies urticaria EXAM Physical Exam Narrative Exam Narrative: [id number] female vital signs are stable afebrile. H EENT exam unremarkable atraumatic. Moist remembers. Neck nontender. Lungs clear to auscultation bilaterally. Heart regular rhythm no murmur rate about 90. Abdomen soft nontender normal bowel sounds no peritoneal signs. Patient moving all 4 extremities. No cauda equina. No saddle anesthesia. Normal dorsi plantarflexion 5 and 5 motor strength. Back well-healing lumbar spinal surgery. 4 to 6 inches in length. Is dry and clean. No signs of discharge. She has diffuse tenderness paralumbar and lumbar. Neurologically she is awake and alert. Again no cauda equina. No motor weakness or numbness in her lower extremities. Const Vital Signs: 11/16/21 08:46 Temperature 98.1 F Temperature Source Oral Pulse Rate 88 Respiratory Rate 22 H Blood Pressure 108/83 H Blood Pressure Mean 91 Pulse Ox 98 Oxygen Delivery Method Nasal Cannula Oxygen Flow Rate (L/min) 2 MDM MDM MDM Narrative Medical decision making narrative: Patient requested something for pain she was offered [place] which she initially refused. X-rays are being obtained. Repeat exam unchanged. Patient also refused x-rays stated that she had them done and they were negative at the [facility] emergency department within the last several days. She understands I cannot see those films. She requested something else for pain says she has oral pain medication at home. She was given a choice IV versus IM she chose IM because it will last longer. She will be given IM injection of morphine. P.o. Zofran. Discharged home. She has appointment to see her spine doctor on Friday. Discharge Plan Triage Chief Complaint: Back ED Provider: Reese Schulte Dx/Rx/DC Orders Clinical Impression: Back strain, Type 2 diabetes mellitus, History of back surgery Instructions: ED Back Sprain/Strain Prescriptions: No Action atorvastatin 80 mg tablet 80 mg PO QHS RF: 0 budesonide-formoterol [Symbicort] 160-4.5 mcg/actuation HFA aerosol inhaler 2 puff inhalation BID RF: 0 albuterol sulfate 90 mcg/actuation HFA aerosol inhaler 2 puff inhalation Q6H PRN (Reason: SOB) RF: 0 lisinopril-hydrochlorothiazide 20-25 mg tablet 1 tab PO BID RF: 0 insulin lispro 100 unit/mL insulin pen 8 unit subcut BID PRN (Reason: SLIDING SCALE) RF: 0 pantoprazole 40 mg tablet,delayed release (DR/EC) 40 mg PO DAILY RF: 0 tizanidine 4 mg capsule 4 mg PO BID PRN (Reason: Muscle Pain) RF: 0 insulin glargine 100 unit/mL (3 mL) insulin pen 42 unit SC DAILY RF: 0 Primary Care Provider: Gris Fofana NP Referrals: Beck Medellin DO [STAFF PHYSICIAN] - As soon as possible Gris Fofana NP, [employer] [Primary Care Provider] - Activity Restrictions/Additional Instructions: Follow-up with your spine doctor with your appointment on Friday. Pain medications as prescribed and you may also take Motrin with food on your stomach. Disposition Disposition: Home, Self Care
--- NOTE | 2021-11-16 10:15 | ED.RN ---
THIS RN BACK TO TALK TO PT. PT YELLING AT THIS RN ABOUT PAIN MEDICATION. PT HAS WALKED OUT PREVIOUS 2 TIMES IN THE ED. PT REFUSES X-RAYS. DR SMITH. NO ORDERS FOR MEDS RECIEVED
[2021-11-16] MEDS: Ondansetron ODT 4 MG Tablet PO (11:11)
[2021-11-16] MEDS: morphine 10 MG/ML Syringe IM (11:11)
[2021-11-16 11:45] VITALS: RESP 16
== END 2021-11-16 11:45 | disposition home or self-care (01) ==
PROVIDERS: Emergency Provider Emergency Medicine; PCP Nurse Practitioner Primary Care; Visit Provider Emergency Medicine
DX: S39.012A Strain of muscle, fascia and tendon of lower back, initial encounter (principal); J44.9 Chronic obstructive pulmonary disease, unspecified; E11.9 Type 2 diabetes mellitus without complications; Z79.4 Long term (current) use of insulin; W01.0XXA Fall on same level from slipping, tripping and stumbling without subsequent striking against object, initial encounter; E78.5 Hyperlipidemia, unspecified; M25.561 Pain in right knee; E78.00 Pure hypercholesterolemia, unspecified; M25.562 Pain in left knee; I10 Essential (primary) hypertension; I25.10 Atherosclerotic heart disease of native coronary artery without angina pectoris; R15.9 Full incontinence of feces
CPT/HCPCS: 96372; 99284

== ENCOUNTER 2021-11-27 13:00 | Observation (INO) | payer MEDICAID, SELFPAY ==
[2021-11-27 13:01] VITALS: BP 95/66; PULSE 113; RESP 18; TEMP 36.7; O2SAT 99; BMI 30.8
--- NOTE | 2021-11-27 13:09 | ED.VIS.BACK ---
HPI History of Present Illness Chief Complaint: Fall Narrative Narrative: Patient is via EMS with low back pain status post fall. She has history of chronic back pain and lumbar stenosis, diabetes, states that she had surgery by Dr. Medellin in September of this year, 2-3 months ago. She states that approximately 1 to 2 hours ago she fell while she was inside. She states she fell straight onto her knees and is now having low back pain from the jarring. She states she had her cell phone on her and called EMS. She was able to get up and states that she has taken 2 of her oxycodones already today. She presents because of back pain and soreness with tightness in her right buttocks. She denies other injuries. No hitting her head or loss of consciousness. She presents because of the low back pain. [facility] Medical History Anxiety Arthritis Asthma Back pain Back pain Cardiology follow-up encounter Chronic neck and back pain COPD (chronic obstructive pulmonary disease) Coronary artery calcification seen on CAT scan Depression Diabetes Dietary restriction Difficulty balancing Essential hypertension Gastric reflux High cholesterol History of arthritis History of echocardiogram History of edema History of pain when walking History of renal disease History of stomach ulcers History of stress test Hyperlipidemia Hypertension Injury of head and neck Insulin dependent diabetes mellitus Knee pain Migraine headache Obesity Shortness of breath on exertion Shoulder pain Smoker Strain of muscle, fascia and tendon of pelvis, initial encounter Strain of right hip and thigh Strain of right inguinal region Strain of unspecified muscles, fascia and tendons at thigh level, right thigh, initial encounter Syncope Thyroid disease Type 2 diabetes mellitus Walker as ambulation aid Wears glasses Wears hearing aid Home Medications insulin glargine 100 unit/mL (3 mL) subcutaneous pen 42 unit SC DAILY 11/03/20 [History Last Taken Unknown] albuterol sulfate 90 mcg/actuation aerosol inhaler 2 puff INHALATION Q6H PRN 06/14/21 [History Last Taken 09/27/21] atorvastatin 80 mg tablet 80 mg PO QHS 06/14/21 [History Last Taken 09/27/21] budesonide-formoterol HFA 160 mcg-4.5 mcg/actuation aerosol inhaler 2 puff INHALATION BID 06/14/21 [History Last Taken 09/27/21] insulin lispro 100 unit/mL subcutaneous pen 8 unit SUBCUT BID PRN ml 06/14/21 [History Last Taken Unknown] lisinopril 20 mg-hydrochlorothiazide 25 mg tablet 1 tab PO BID 06/14/21 [History Last Taken 09/27/21] pantoprazole 40 mg tablet,delayed release 40 mg PO DAILY 06/14/21 [History Last Taken 09/27/21] tizanidine 4 mg capsule 4 mg PO BID PRN 06/14/21 [History Last Taken Unknown] oxycodone 5 mg PO Q6H PRN 11/27/21 [History Last Taken Unknown] Allergy/AdvReac Type Severity Reaction Status Date / Time duloxetine [From Cymbalta] Allergy Unknown Verified 11/27/21 13:01 Penicillins Allergy NEEDS Verified 11/27/21 13:01 FOLLOW-UP pregabalin [From Lyrica] Allergy Unknown Verified 11/27/21 13:01 NSAIDS (Non-Steroidal AdvReac Upset Verified 11/27/21 13:01 Anti-Inflamma Stomach Family History Other Cancer Diabetes Surgical History History of ankle surgery History of History of carpal tunnel release History of hysterectomy History of open reduction and internal fixation (ORIF) procedure History of partial thyroidectomy Social History Smoking Status: Current every day smoker tobacco type: cigarettes alcohol intake: never ROS ROS ED ROS Narrative Constitutional: No fever, no chills. HEENT: No sore throat. No neck pain. No loss of vision. No rhinorrhea. Cardiovascular: No chest pain. No palpitations. No pedal edema. Respiratory: No cough, no shortness of breath. Abdominal: No abdominal pain. No nausea. No vomiting. Genitourinary: No dysuria. No hematuria. Musculoskeletal: No myalgias. No arthralgias. Midline low back pain, worse with movement. Tightness in right buttocks. Neurologic: No headaches. No dizziness. No lightheadedness. Skin: No rash. No change in color. Psychiatric: No depression. No anxiety. EXAM Physical Exam Narrative Exam Narrative: Afebrile. Vital signs noted. HEENT: Normocephalic. Atraumatic. PERRL, EOMI. Neck soft and supple. No point tenderness or step off. Cardiovascular: Regular rate and rhythm. No murmurs, rubs, or gallops appreciated. Respiratory: No tachypnea. Lungs clear to auscultation bilaterally. Gastrointestinal: Abdomen soft, nontender, with normoactive bowel sounds. No rebound or guarding. Neurological: Awake. Alert. Nonfocal, nonlateralizing. Skin: No rash. Normal color. No pallor. Musculoskeletal: No pedal edema. Full range of motion extremities. Well-healed incision midline lumbar spine. No erythema, no fluctuance. No palpated step-off. Minimal tenderness in sciatic notch. Neurovascular intact bilateral lower extremities with palpable dorsalis pedis pulses. EHL intact. DTRs equal and symmetric. Const Vital Signs: 11/27/21 13:01 11/27/21 13:05 Temperature 98.1 F Temperature Source Oral Pulse Rate 113 H Respiratory Rate 18 Respiratory Effort Normal Non-Labored Respiratory Depth Normal Respiratory Pattern Normal Blood Pressure 95/66 Blood Pressure Mean 75 Pulse Ox 99 Oxygen Delivery Method Room Air MDM MDM MDM Narrative Medical decision making narrative: Patient arrives with mild hypotension at 95/66. She is still mentating. I think this may be secondary to her opiate pain medication that she has already taken. I will obtain x-rays of her lumbar spine as she states she had prior hardware inserted with fusion. X-rays interpreted by myself show postsurgical changes but no acute fracture. This was confirmed by radiology. Her blood pressure has now normalized and is above 100 systolic. She requested analgesics. She was administered morphine 4 mg intramuscularly. However, she told the RN that she is unable to take care of herself at home, and that she lives alone. She has not been eating. Patient has been evaluated by case management/social work. They report that patient states that she has not gone through rehab after her surgery because she has not followed up with [facility] orthopedics. I will obtain basic laboratories and UA. Patient will be discussed with the hospitalist for observation for placement as the patient stated to social work that she needs a detention facility/rehabilitation. I did discuss the patient with Dr. Hu who will place her on observation. He requested that I inform her surgeon, Dr. Medellin, who agrees that she should go to rehab. There are no acute neurological symptoms. Disposition is assigned to observation. She is in stable condition. Lab Data Labs: Laboratory Results - last 24 hr 11/27/21 14:44 WBC 10.5 RBC 3.78 L Hgb 11.3 L Hct 33.7 L MCV 89.2 MCH 29.9 MCHC 33.5 RDW Std Deviation 46.6 H RDW Coeff of Yudelka 14.5 Plt Count 537 H MPV 9.0 Immature Gran % (Auto) 1.000 H Neut % (Auto) 69.8 Lymph % (Auto) 21.2 Harmon % (Auto) 7.1 Eos % (Auto) 0.6 Baso % (Auto) 0.3 Absolute Neuts (auto) 7.3 Absolute Lymphs (auto) 2.23 Nucleated RBC % 0 Radiography Diagnostic Testing: Clinical Impression(s) from Imaging Studies Lumbar Spine X-Ray 11/27/21 13:16 IMPRESSION: Status post laminectomy and fusion at the L4-L5 level with prosthetic disc placement. Degenerative changes and spondylosis. Electronically Signed: Joaquin Rodney MD at 13:34 EDT , Discharge Plan Dx/Rx/DC Orders Clinical Impression: Fall, Intractable low back pain, Inability to perform activities of daily living Disposition Disposition: Acute Care [facility]
--- NOTE | 2021-11-27 13:16 | RAD_ITS ---
STUDY: X-RAY - LUMBAR SPINE REASON FOR EXAM: Female, 55 years old. Low back pain following a fall. TECHNIQUE: 3 view(s) of the lumbar spine were obtained. COMPARISON: Comparison is made with prior study generate 22,. FINDINGS: There is straightening of the normal lumbar lordosis. There is no substantial scoliosis. There is a normal alignment of the vertebrae. The patient is status post laminectomy and interpedicular screw fixation at the L4-L5 level with prosthetic disc placement. Spondylosis. The soft tissue structures are unremarkable. RAD/Lumbar Spine 2 or 3 Views IMPRESSION: Status post laminectomy and fusion at the L4-L5 level with prosthetic disc placement. Degenerative changes and spondylosis. Electronically Signed: Joaquin Rodney MD at 13:34 EDT ,
[2021-11-27] MEDS: Morphine 4 MG/ML Syringe IM (14:28)
--- NOTE | 2021-11-27 14:35 | CM.ED ---
Social Work Consult: Discharge planning Referral source: Dr. Mercedes Met with patient in room. Introduced self and sr. social media & mobile manager role. Patient agreeable to speak with this sr. social media & mobile manager. Patient reports to live alone in a private residence. Patient states to have been using a rollaider to get around the home but I can't take care of myself. Patient states to be starving when this sr. social media & mobile manager inquired about meals. Patient states to be unable to stand a prepare food for self. Patient uses taxi services for transportation and has taxi vouchers. Patient also reports to have food stamps. Patient reports to have limited support in the community and no one checks in. Patient has back surgery on 2021 and was to being outpatient therapy through [facility] starting last week but I can't go. Patient states to not feel safe at home due to inability to care for self. Patient active with a dependency case manager through [facility] [place], Sherine Cheng ([phone]). Patient is agreeable to this sr. social media & mobile manager calling dependency case manager. Patient is requesting to be transitioned to a alf for rehabilitation, I can't go home. Active support and listening provided. Telephone call to dependency case managerSherine. Sherine reports concerns of patient being able to care for self at home and is recommending a alf placement for patient for rehabilitation. Collaborating with Dr. Mercedes. Plan is to attempt admission to acute care setting. PLAN: Transition to acute care setting for placement. Armando GRIFFITH, VINCENT
[2021-11-27 14:54] LABS: Absolute Lymphocyte Count 2.23 X10^3/uL (0.83-4.51); Absolute Neutrophil Count 7.3 X10^3/uL (2.0-7.7); Basophil# 0.03 X10^3/uL; Basophil% 0.3 % (0-1); Eosinophil# 0.06 X10^3/uL; Eosinophils% 0.6 % (0-5); Hematocrit 33.7 % (37-47); Hemoglobin 11.3 g/dL (12.0-15.0); Lymphocyte # 2.23 X10^3/ul (0.83-4.51); Lymphocyte % 21.2 % (19-41); Mean Corp Hgb Conc 33.5 g/dL (32-36); Mean Corpuscular Hgb 29.9 pg (27.0-32.0); Mean Corpuscular Volume 89.2 fL (81-99); Monocyte# 0.75 X10^3/uL; Monocyte% 7.1 % (0-10); NRBC Flagged by Analyzer 0 % (0-5); Neutrophil # 7.34 X10^3/uL (2.7-7.7); Neutrophil % 69.8 % (47-70); Platelet Count 537 K/mm3 (150-450); RBC Distribution Width CV 14.5 % (11.6-14.6); RBC Distribution Width SD 46.6 fl (35.1-43.9); Red Blood Count 3.78 M/mm3 (4.2-5.4); White Blood Count 10.5 K/mm3 (4.4-11.0)
--- NOTE | 2021-11-27 14:58 | NURSING ---
MED SURG OBS TANVI INTRACTABLE BACK PAIN, INABILITY TO PEFORM ADLS
[2021-11-27 15:08] LABS: ALB/GLOB Ratio 0.5 RATIO (0.9-2.4); AST(SGOT) 12 U/L (15-37); Alanine Aminotransfer ALT/SGPT 14 U/L (13-56); Albumin, Serum 2.4 g/dL (3.2-5.0); Alkaline Phosphatase 149 U/L (45-117); Anion Gap 4 (5-15); BUN 23 mg/dL (7-18); BUN/Creat Ratio 22.8 RATIO (10-20); Calcium,Total 9.8 mg/dL (8.5-10.1); Chloride 96 mmol/L (98-107); Creatinine, Serum 1.01 mg/dL (0.55-1.02); EST Glomerular Filtration Rate 60 mL/min (>60); Est Glom Filt Rate - Afr Amer 73 mL/min (>60); Estimated Creatinine Clearance 46.93 ml/min; Globulin 4.8 g/dL (2.2-4.2); Glucose 161 mg/dL (74-106); Potassium 4.2 mmol/L (3.5-5.1); Protein, Total 7.2 g/dL (6.4-8.2); Sodium Level 132 mmol/L (136-145)
--- NOTE | 2021-11-27 15:16 | PCM.HP.STD ---
HPI - General General Date of Admission: 11/27/21 Date of Service: 11/27/21 Chief Complaint: Recurrent fall. Severe back pain before and after surgery HPI Narrative MILY CHILDRESS, is a 55 F who came to ER severe back pain and recurrent fall did not get better after surgery. Patient had L4-5 lumbar stenosis, lumbar degenerative disc disease L4-5 with radiculopathy. She had L4-5 posterior lumbar interbody fusion, insertion of intervertebral mechanical device with structural allograft fusion, L4 bilateral laminectomy with decompression of bilateral nerve roots, L4-5 posterior lateral fusion with pedicle screw fixation on 09/27/[address] Beck Medellin. She continued to have pain during postoperative. She was admitted during perioperative period from 09/27 and discharged on 09/09 . She claimed that she has seen Dr. Beck Medellin about 1 week ago but as per ER physician who talked to Dr. Medellin states she is not continue to follow-up. She also sees pain management as an outpatient. She has been taking oxycodone 5 mg every 6 hours but not helping her. She rates her pain 8 out of 10 constant, predominantly localized to her bilateral lumbar region which get worse 10 out of 10 on movement. She uses Rollator for going to bathroom and activities of daily living. She fell twice in the last 1 week. She also complains of bilateral toes numbness and tingling but denies radiating pain to the right or left leg. As per ED documention she has radiating pain to both legs. Denies recent onset of urinary incontinence, bowel incontinence or perineal numbness/paresthesia. Denies dysuria/burning micturition. [facility] Medical History Anxiety Arthritis Asthma Back pain Back pain Cardiology follow-up encounter Chronic neck and back pain COPD (chronic obstructive pulmonary disease) Coronary artery calcification seen on CAT scan Depression Diabetes Dietary restriction Difficulty balancing Essential hypertension Gastric reflux High cholesterol History of arthritis History of echocardiogram History of edema History of pain when walking History of renal disease History of stomach ulcers History of stress test Hyperlipidemia Hypertension Injury of head and neck Insulin dependent diabetes mellitus Knee pain Migraine headache Obesity Shortness of breath on exertion Shoulder pain Smoker Strain of muscle, fascia and tendon of pelvis, initial encounter Strain of right hip and thigh Strain of right inguinal region Strain of unspecified muscles, fascia and tendons at thigh level, right thigh, initial encounter Syncope Thyroid disease Type 2 diabetes mellitus Walker as ambulation aid Wears glasses Wears hearing aid Home Medications insulin glargine 100 unit/mL (3 mL) subcutaneous pen 42 unit SC DAILY 11/03/20 [History Last Taken Unknown] albuterol sulfate 90 mcg/actuation aerosol inhaler 2 puff INHALATION Q6H PRN 06/14/21 [History Last Taken 09/27/21] atorvastatin 80 mg tablet 80 mg PO QHS 06/14/21 [History Last Taken 09/27/21] budesonide-formoterol HFA 160 mcg-4.5 mcg/actuation aerosol inhaler 2 puff INHALATION BID 06/14/21 [History Last Taken 09/27/21] insulin lispro 100 unit/mL subcutaneous pen 8 unit SUBCUT BID PRN ml 06/14/21 [History Last Taken Unknown] lisinopril 20 mg-hydrochlorothiazide 25 mg tablet 1 tab PO BID 06/14/21 [History Last Taken 09/27/21] pantoprazole 40 mg tablet,delayed release 40 mg PO DAILY 06/14/21 [History Last Taken 09/27/21] tizanidine 4 mg capsule 4 mg PO BID PRN 06/14/21 [History Last Taken Unknown] amitriptyline 100 mg PO QHS 11/27/21 [History Last Taken 11/26/21] ipratropium-albuterol 3 ml INHALATION 4X/DAY PRN 11/27/21 [History Last Taken 11/25/21] loratadine 10 mg PO DAILY 11/27/21 [History Last Taken 11/26/21] oxycodone 5 mg PO Q6H PRN 11/27/21 [History Last Taken 11/27/21] Allergy/AdvReac Type Severity Reaction Status Date / Time duloxetine [From Cymbalta] Allergy Unknown Verified 11/27/21 13:01 Penicillins Allergy NEEDS Verified 11/27/21 13:01 FOLLOW-UP pregabalin [From Lyrica] Allergy Unknown Verified 11/27/21 13:01 NSAIDS (Non-Steroidal AdvReac Upset Verified 11/27/21 13:01 Anti-Inflamma Stomach Family History Other Cancer Diabetes Surgical History History of ankle surgery History of History of carpal tunnel release History of hysterectomy History of open reduction and internal fixation (ORIF) procedure History of partial thyroidectomy Social History Smoking Status: Current every day smoker tobacco type: cigarettes alcohol intake: never ROS ROS Narrative Constitutional: Reports fatigue and weakness HEENT: Reports systems reviewed and no addt'l complaints, except as documented Respiratory/Chest: Denies chest pain, shortness of breath at rest or with exertion Gastrointestinal: Denies coffee ground emesis, hematemesis or vomiting Genitourinary: Denies burning urination or new urinary tract symptoms Musculoskeletal: Reports joint pain and limited range of motion mainly over lumbar back Neurologic: Mild muscle weakness of bilateral lower legs. Denies seizure-like activity skin: No ulcer. No rash Endocrinology: Reports systems reviewed and no addt'l complaints, except as documented Hematologic/Lymphatic: Reports systems reviewed and no addt'l complaints, except as documented Rest 14 ROS are negative except as mentioned in HPI Vital Signs Vital Signs Vital Signs: 11/27/21 13:01 11/27/21 13:05 Temperature 98.1 F Temperature Source Oral Pulse Rate 113 H Respiratory Rate 18 Respiratory Effort Normal Non-Labored Respiratory Depth Normal Respiratory Pattern Normal Blood Pressure 95/66 Blood Pressure Mean 75 Pulse Ox 99 Oxygen Delivery Method Room Air Weight Weight: 163 lb 2.273 oz Body Mass Index (BMI) 30.8 Physical Exam Narrative General: Alert, Oriented x3, Cooperative HEENT: Atraumatic, PERRLA, EOMI, Normocephalic Oral: No Gingival or Mucosal Lesions/ Ulcerations Neck: Supple, No JVD, Negative Carotid Bruits Lungs: Air entry diminished in bilateral lung bases. No crepitation/rhonchi Cardiovascular: Regular rate, Regular Rhythm, Normal S1, Normal S2, No murmurs Abdomen: Bowel Sounds Present, Soft, Non Tender, Non-Distended : No renal angle tenderness. No suprapubic tenderness. Extremities: No edema, Capillary Refill Less than 3 Seconds Skin: No rashes, No breakdown Musculoskeletal: Lumbar spine and paraspinal muscle tenderness. ROM restricted over lumbar spine. Severe pain on sitting up. Neurological: Cranial nerves II-XII grossly intact, DTR 2+/4 and Symmetrical. Muscle strength 3/5 at major hip and knee joints Psych/Mental Status: Flat affect Results Lab / Micro Data Result Diagrams: 11/27/21 14:44 11/27/21 14:44 Labs: Laboratory Results - last 24 hr 11/27/21 14:44: WBC 10.5, RBC 3.78 L, Hgb 11.3 L, Hct 33.7 L, MCV 89.2, MCH 29.9, MCHC 33.5, RDW Std Deviation 46.6 H, RDW Coeff of Yudelka 14.5, Plt Count 537 H, MPV 9.0, Immature Gran % (Auto) 1.000 H, Neut % (Auto) 69.8, Lymph % (Auto) 21.2, [place] % (Auto) 7.1, Eos % (Auto) 0.6, Baso % (Auto) 0.3, Absolute Neuts (auto) 7.3, Absolute Lymphs (auto) 2.23, Nucleated RBC % 0 11/27/21 14:44: Sodium 132 L, Potassium 4.2, Chloride 96 L, Carbon Dioxide 32.0, Anion Gap 4 L, BUN 23 H, Creatinine 1.01, Estim Creat Clear Calc 46.93, Est GFR (MDRD) Af Amer 73, Est GFR (MDRD) Non-Af 60, BUN/Creatinine Ratio 22.8 H, Glucose 161 H, Calcium 9.8, Total Bilirubin 0.40, AST 12 L, ALT 14, Alkaline Phosphatase 149 H, Total Protein 7.2, Albumin 2.4 L, Globulin 4.8 H, Albumin/Globulin Ratio 0.5 L Radiology Impression Lumbar Spine X-Ray 11/27/21 13:16 IMPRESSION: Status post laminectomy and fusion at the L4-L5 level with prosthetic disc placement. Degenerative changes and spondylosis. Electronically Signed: Joaquin Rodney MD at 13:34 EDT , Assessment & Plan Assessment/Plan (1) Fall: QUALIFIERS: Encounter type: initial encounter Qualified Code(s): W19.XXXA - Unspecified fall, initial encounter (2) Intractable low back pain: PLAN: 1. Debility due to severe lumbar back pain and recurrent fall: Patient fall is mainly mechanical without loss of consciousness, chest pain or shortness of breath. She has chronic dizziness and vertigo but has not changed recently. Patient is [facility] floor. Pain control and muscle relaxant. PT and OT. Orthopedic surgeon, Dr. Medellin consulted from the ED. 2. L4-5 lumbar stenosis, lumbar degenerative disc disease L4-5 with radiculopathy. She had L4-5 posterior lumbar interbody fusion, insertion of intervertebral mechanical device with structural allograft fusion, L4 bilateral laminectomy with decompression of bilateral nerve roots, L4-5 posterior lateral fusion with pedicle screw fixation on 09/27/[address] Beck Medellin. Her history is confusing regarding sciatica pain but seems predominantly she has localized pain with muscle tenderness. Lumbar spine x-ray individually reviewed and shows lumbar spinal stenosis with fusion at L4-5 level with prosthetic device. 3. Diabetes mellitus type 2, with uncontrolled hyperglycemia: Labs reviewed. Glucose 161 in BMP. Lantus home dose continued along with Accu-Chek before meals at bedtime with coverage with Humalog insulin. Titrate up the insulin dose as per Accu-Cheks 4. Hyponatremia with elevated blood urea nitrogen: Patient had DELGADO which got resolved in previous admission in September 2021. Sodium 132, chloride 96, anion gap 4. BUN 23 creatinine 1.01. IV fluid normal saline 75 mill per hour. Monitor BMP tomorrow a.m. 5. Hypertension: Home medication lisinopril/HCTZ continued. Monitor BP and titrate the dose as needed 6. Dyslipidemia: On atorvastatin. 7. Chronic tobacco use with history of COPD: Patient on Symbicort maintenance inhaler, continued. Albuterol inhaler as needed. Nicotine patch ordered. Advised quitting tobacco use. 8. Other comorbidities include chronic migraine headache, anxiety and depression, GERD and chronic neck and back pain: Patient does not have a headache now. VT prophylaxis: Moderate risk Lovenox 40 MG subcu daily Living will/advanced directive/end of life care: Patient does not have living will or advanced directive. After discussion of benefits/risks procedures involved with full code, DNR CC arrest and DNR CC, the patient opted for full code. Patient does want artificial life support including intubation, tube feed, ventilator and/chest compression, central venous catheter, vasopressor and DC shock if needed Total time spent in [id number] encounter in discussion of advanced directive 16 minutes. Charges/Coding Visit Charges OBSV E&M: 02717 Initial observation care L3 Procedures Hospitalists Procedures: 35771 Advncd Care Plan 30 Min
[2021-11-27 15:22] VITALS: BP 100/64; PULSE 68; RESP 16; TEMP 37.1; O2SAT 99
[2021-11-27 15:27] LABS: Color, Urine Yellow (Yellow); Glucose, Dipstick Normal (Normal); Ketone-Dipstick 5 mg/dl (Negative); Leukocyte Esterase-Dipstick 100 /ul (Negative); Mucous, Urine 0 SEEN /hpf (<or=2+); Nitrite-Dipstick Negative (Negative); Occult Blood-Urine Negative /ul (Negative); Protein-Dipstick 30 mg/dl (Negative); Red Blood Cells-Urine 0 SEEN /hpf (0-5); Specific Gravity, Urine 1.015 (1.002-1.030); Urine Bilirubin Dipstick Negative (Negative); Urine Clarity Sl. Cloudy (Clear); Urine Urobilinogen 1 mg/dl (Normal)
[2021-11-27 15:32] VITALS: BMI 29.4
[2021-11-27 15:33] LABS: Magnesium 1.6 mg/dL (1.6-2.6)
[2021-11-27 15:45] VITALS: BP 126/85; PULSE 93; RESP 16; TEMP 36.6; O2SAT 100
[2021-11-27 16:00] LABS: Bacteria 3+ /hpf (None Seen); Squamous Epithelial Cells - UA 0-5 SEEN /hpf (5-10); White Blood Cells 0-5 SEEN /hpf (0-5)
[2021-11-27] MEDS: 0.9% Normal Saline 1,000 ML 75 ML IV (16:15)
[2021-11-27 16:31] LABS: Bedside Glucose 151 mg/dL (74-106)
[2021-11-27] MEDS: tiZANidine HCl 2 MG Tablet 4 MG PO ×2 (16:48→22:42)
[2021-11-27] MEDS: Enoxaparin 40 MG/0.4 ML Syringe SC (16:48)
[2021-11-27] MEDS: Glucerna Shake 120 ML LIQUID PO (16:51)
[2021-11-27 17:08] VITALS: O2SAT 97
[2021-11-27] MEDS: oxyCODONE 5 MG Tablet PO (17:56)
[2021-11-27] MEDS: hydroCHLOROthiazide 25 MG Tablet PO (17:57)
[2021-11-27] MEDS: Lisinopril 20 MG Tablet PO (17:57)
[2021-11-27 17:58] VITALS: BP 109/61
[2021-11-27] MEDS: Amitriptyline 100 MG Tablet PO (21:28)
[2021-11-27] MEDS: Atorvastatin Calcium 80 MG Tablet PO (21:28)
[2021-11-27] MEDS: Acetaminophen 325 MG Tablet 650 MG PO (21:28)
[2021-11-27 21:45] VITALS: BP 104/74; PULSE 103; RESP 18; TEMP 36.8; O2SAT 95
[2021-11-28 01:21] LABS: Bedside Glucose 268 mg/dL (74-106)
[2021-11-28 02:30] VITALS: BP 135/84; PULSE 88; RESP 16; TEMP 36.8; O2SAT 94
[2021-11-28 06:51] LABS: Bedside Glucose 290 mg/dL (74-106)
[2021-11-28] MEDS: oxyCODONE 5 MG Tablet PO ×2 (06:53→21:27)
[2021-11-28] MEDS: Insulin Lispro 100 UNIT/ML INSULN.PEN SC ×6 (06:54→21:32)
[2021-11-28 07:35] LABS: Anion Gap 5 (5-15); BUN 25 mg/dL (7-18); BUN/Creat Ratio 22.9 RATIO (10-20); Calcium,Total 9.4 mg/dL (8.5-10.1); Chloride 99 mmol/L (98-107); Creatinine, Serum 1.09 mg/dL (0.55-1.02); EST Glomerular Filtration Rate 55 mL/min (>60); Est Glom Filt Rate - Afr Amer 67 mL/min (>60); Estimated Creatinine Clearance 43.49 ml/min; Glucose 289 mg/dL (74-106); Potassium 4.3 mmol/L (3.5-5.1); Sodium Level 130 mmol/L (136-145)
[2021-11-28 08:00] VITALS: BP 117/87; PULSE 96; RESP 14; TEMP 37; O2SAT 98
[2021-11-28] MEDS: Pantoprazole Sodium 40 MG Tablet PO (08:08)
[2021-11-28] MEDS: tiZANidine HCl 2 MG Tablet 4 MG PO (08:08)
[2021-11-28] MEDS: Lisinopril 20 MG Tablet PO ×2 (08:08→17:50)
[2021-11-28] MEDS: hydroCHLOROthiazide 25 MG Tablet PO ×2 (08:09→17:50)
[2021-11-28] MEDS: Enoxaparin 40 MG/0.4 ML Syringe SC ×2 (08:09→21:29)
[2021-11-28] MEDS: Glucerna Shake 120 ML LIQUID PO ×3 (08:19→17:49)
[2021-11-28] MEDS: Insulin Glargine-YFGN 100 UNIT/ML Pen 40 UNIT SC (08:19)
--- NOTE | 2021-11-28 09:36 | CASEMGMT ---
SW reviewed chart and noted patient is looking for placement. SW met with patient, introduced self and role at [facility]. Patient confirmed she will likely have to go to a group home as she cannot care for herself. SW provided patient with a list of SNF providers including quality and resource use data and consistent with the patient?s preferred geographic region, medical needs, and insurance network. SW explained to patient the facilities that SW highlighted in pink are her choices as they accept her insurance. SW told patient that her insurance will have to approve so it will depend on how she does with therapy. GEORGE told patient SW will check back shortly after lunch to get her 3 choices. Aby BARRERA
--- NOTE | 2021-11-28 10:27 | PN.HOSP_ITS ---
Documented by User: Bebo SZYMANSKI 11/28/21 10:58 Subjective Subjective Patient is a 55-year-old female who is comfortably lying in bed and sleeping, alert and orient x3. Upon awaking from sleeping patient immediately begins writhing due to her back pain. Objective Data Objective Data Vital Signs: Vital Signs Temp Pulse Resp BP Pulse Ox 98.6 F 96 14 117/87 H 98 11/28/21 08:00 11/28/21 08:00 11/28/21 08:00 11/28/21 08:00 11/28/21 08:00 Oxygen Delivery Method Room Air Weight: 247 lb 5.738 oz Body Mass Index (BMI) 29.4 Intake & Output: Intake and Output for Last 24 Hours 11/26/21 11/27/21 11/28/21 23:59 23:59 23:59 Intake Total 240 / 240 831.25 / 831.25 Balance 240 / 240 831.25 / 831.25 Lab / Micro Data Result Diagrams: 11/27/21 14:44 11/28/21 06:55 Labs: Laboratory Results - last 24 hr 11/27/21 14:44: WBC 10.5, RBC 3.78 L, Hgb 11.3 L, Hct 33.7 L, MCV 89.2, MCH 29.9, MCHC 33.5, RDW Std Deviation 46.6 H, RDW Coeff of Yudelka 14.5, Plt Count 537 H, MPV 9.0, Immature Gran % (Auto) 1.000 H, Neut % (Auto) 69.8, Lymph % (Auto) 21.2, [place] % (Auto) 7.1, Eos % (Auto) 0.6, Baso % (Auto) 0.3, Absolute Neuts (auto) 7.3, Absolute Lymphs (auto) 2.23, Nucleated RBC % 0 11/27/21 14:44: Sodium 132 L, Potassium 4.2, Chloride 96 L, Carbon Dioxide 32.0, Anion Gap 4 L, BUN 23 H, Creatinine 1.01, Estim Creat Clear Calc 46.93, Est GFR (MDRD) Af Amer 73, Est GFR (MDRD) Non-Af 60, BUN/Creatinine Ratio 22.8 H, Glucose 161 H, Calcium 9.8, Total Bilirubin 0.40, AST 12 L, ALT 14, Alkaline Venita sphatase 149 H, Total Protein 7.2, Albumin 2.4 L, Globulin 4.8 H, Albumin/Globulin Ratio 0.5 L 11/27/21 14:44: Magnesium 1.6 11/27/21 15:00: Urine Color Yellow, Urine Clarity Sl. Cloudy, Urine pH 5.0, Ur Specific [place] 1.015, Urine Protein 30 H, Urine Glucose (UA) Normal, Urine Ketones 5 H, Urine Occult Blood Negative, Urine Nitrite Negative, Urine Bilirubin Negative, Urine Urobilinogen 1 H, Ur Leukocyte Esterase 100 H, Urine RBC 0 SEEN, Urine WBC 0-5 SEEN, Ur Squamous Epith Cells 0-5 SEEN, Urine Bacteria 3+, Urine Mucus 0 SEEN 11/27/21 16:24: POC Glucose 151 H 11/27/21 21:44: POC Glucose 268 H 11/28/21 06:48: POC Glucose 290 H 11/28/21 06:55: Sodium 130 L, Potassium 4.3, Chloride 99, Carbon Dioxide 26.0, Anion Gap 5, BUN 25 H, Creatinine 1.09 H, Estim Creat Clear Calc 43.49, Est GFR (MDRD) Af Amer 67, Est GFR (MDRD) Non-Af 55 L, BUN/Creatinine Ratio 22.9 H, Glucose 289 H, Calcium 9.4 Radiography Diagnostic Testing: Radiology Impression Lumbar Spine X-Ray 11/27/21 13:16 IMPRESSION: Status post laminectomy and fusion at the L4-L5 level with prosthetic disc placement. Degenerative changes and spondylosis. Electronically Signed: Joaquin Rodney MD at 13:34 EDT , Physical Exam Const alert and oriented x3 HEENT head/scalp atraumatic and moist oral mucous membranes Head and Scalp: normocephalic Eyes PERRL, EOMs intact bilaterally and conjunctivae normal Neck no lymphadenopathy, supple and no JVD Resp normal respiratory effort, no retractions and no use of accessory muscles Cardio regular rate, regular rhythm and no JVD GI normal to inspection, nondistended, normoactive bowel sounds Extremity normal to inspection Skin Skin Narrative: Intact 6 scar on back about the L4-L5 region. No obvious deformity or irritation about the back. Neuro CN's II-XII intact bilaterally Psych affect normal Assessment & Plan Assessment/Plan (1) Intractable low back pain: (2) Fall: QUALIFIERS: Encounter type: initial encounter Qualified Code(s): W19.XXXA - Unspecified fall, initial encounter (3) Inability to perform activities of daily living: PLAN: Day 1 Discharge planning: To be determined. 1) L4/L5 stenosis, lumbar degeneartive disc disease L4/L5 with radiculopathy/Debility Recently underwent surgery with Dr. Medellin in September 2019. Awaiting orthopedic follow-up, PT/OT eval ordered, case management consult ordered for disposition planning. 2) DM2 Glucose elevated at 289,, recent hemoglobin A1c obtained in September and showed 7.9. Will continue glargine at 40 units, initiate 5 units of lispro with meals and continue Accu-Cheks assigned scale insulin. 3) hyponatremia Sodium currently 130, likely due to poor oral intake on admission, will continue IV fluids and monitor BMP. 4) HTN BP is stable, continue lisinopril and hydrochlorothiazide. 5) hyperlipidemia Continue statin. 6) GERD Continue PPI. DVT prophylaxis - Lovenox Patient seen by Bebo Souza PA-C, under the supervision of Dr. Parks. Time spent on patient care: 10 minutes. Documented by User: Dr. Flor Parks MD 11/28/21 11:04 Objective Data Lab / Micro Data Result Diagrams: 11/27/21 14:44 11/28/21 06:55
[2021-11-28] MEDS: 0.9% Normal Saline 1,000 ML 75 ML IV ×2 (11:06→23:09)
[2021-11-28] MEDS: HYDROmorphone 0.5 MG/0.5 ML SYRINGE IV ×2 (11:07→17:54)
[2021-11-28] MEDS: 0.9% Saline Lock 10 ML Syringe IV (11:13)
[2021-11-28 11:21] LABS: Bedside Glucose 212 mg/dL (74-106)
--- NOTE | 2021-11-28 12:11 | CASEMGMT ---
GEORGE met with patient and [facility]. GEORGE explained to patient once a facility accepts her she will stay in the hospital until her insurance approves. GEORGE told her sometimes this takes a day or two. GEORGE will send referral to [facility] once PT/OT sees patient. Aby BARRERA
[2021-11-28 14:18] VITALS: BP 115/71; PULSE 97; RESP 15; TEMP 36.9; O2SAT 92
[2021-11-28 14:26] LABS: Bedside Glucose 91 mg/dL (74-106)
--- NOTE | 2021-11-28 15:03 | CASEMGMT ---
GEORGE faxed referral to [facility]. GEORGE will send PT/OT evaluations once completed. GEORGE also called [facility] regarding referral. Aby Wren MSW BRUCE
--- NOTE | 2021-11-28 16:05 | CASEMGMT ---
SW received a voice mail from [facility] with [facility] and they can accept patient. She will start pre-cert once she receives PT/OT evaluations.
[2021-11-28 16:41] LABS: Bedside Glucose 207 mg/dL (74-106)
[2021-11-28 17:45] VITALS: BP 143/76; PULSE 91; RESP 15; TEMP 36.9; O2SAT 98
[2021-11-28 21:27] VITALS: BP 120/76; PULSE 88; RESP 16; TEMP 36.8; O2SAT 97
[2021-11-28] MEDS: Atorvastatin Calcium 80 MG Tablet PO (21:28)
[2021-11-28] MEDS: Amitriptyline 100 MG Tablet PO (21:29)
[2021-11-28 21:40] LABS: Bedside Glucose 171 mg/dL (74-106)
[2021-11-29 03:26] VITALS: BP 122/78; PULSE 90; RESP 16; TEMP 36.9; O2SAT 96
[2021-11-29] MEDS: oxyCODONE 5 MG Tablet PO ×3 (04:23→16:33)
[2021-11-29 05:27] LABS: Absolute Lymphocyte Count 2.68 X10^3/uL (0.83-4.51); Absolute Neutrophil Count 4.5 X10^3/uL (2.0-7.7); Basophil# 0.02 X10^3/uL; Basophil% 0.2 % (0-1); Eosinophil# 0.08 X10^3/uL; Hematocrit 31.1 % (37-47); Hemoglobin 10.2 g/dL (12.0-15.0); Lymphocyte # 2.68 X10^3/ul (0.83-4.51); Lymphocyte % 33.4 % (19-41); Mean Corp Hgb Conc 32.8 g/dL (32-36); Mean Corpuscular Hgb 29.1 pg (27.0-32.0); Mean Corpuscular Volume 88.6 fL (81-99); Mean Platelet Vol. 9.5 fl (6.2-12.0); Monocyte# 0.71 X10^3/uL; Monocyte% 8.8 % (0-10); NRBC Flagged by Analyzer 0 % (0-5); Neutrophil % 56.1 % (47-70); Platelet Count 534 K/mm3 (150-450); RBC Distribution Width CV 14.4 % (11.6-14.6); RBC Distribution Width SD 46.5 fl (35.1-43.9); Red Blood Count 3.51 M/mm3 (4.2-5.4)
--- NOTE | 2021-11-29 05:49 | PN.HOSP_ITS ---
Subjective Subjective Patient with no acute events overnight per self and per nursing report but still notes discomfort to her lumbar spine and lower extremities with radiculopathy with ambulation requiring some assistance. Patient evaluation by Dr. Medellin with no intention for any interventions or changes at this time. Given this disc ussed with patient and will initiate Medrol Dosepak, administer gabapentin with increased dose from her home regimen, place lidocaine patches to assist in pain control. Patient understands that she is awaiting skilled facility precertification. Patient denies fevers, chills, nausea, emesis, abdominal pain, chest pain or dyspnea. Objective Data Objective Data Vital Signs: Vital Signs Temp Pulse Resp BP Pulse Ox 98.5 F 90 16 122/78 H 96 11/29/21 03:26 11/29/21 03:26 11/29/21 03:26 11/29/21 03:26 11/29/21 03:26 Oxygen Delivery Method Room Air Weight: 160 lb 14.999 oz Body Mass Index (BMI) 29.4 Intake & Output: Intake and Output for Last 24 Hours 11/27/21 11/28/21 11/29/21 23:59 23:59 23:59 Intake Total 240 / 240 2835.00 / 2835.00 Balance 240 / 240 2835.00 / 2835.00 Lab / Micro Data Result Diagrams: 11/29/21 04:36 11/29/21 04:36 Labs: Laboratory Results - last 24 hr 11/28/21 06:48: POC Glucose 290 H 11/28/21 06:55: Sodium 130 L, Potassium 4.3, Chloride 99, Carbon Dioxide 26.0, Anion Gap 5, BUN 25 H, Creatinine 1.09 H, Estim Creat Clear Calc 43.49, Est GFR (MDRD) Af Amer 67, Est GFR (MDRD) Non-Af 55 L, BUN/Creatinine Ratio 22.9 H, Glucose 289 H, Calcium 9.4 11/28/21 11:13: POC Glucose 212 H 11/28/21 14:17: POC Glucose 91 11/28/21 16:26: POC Glucose 207 H 11/28/21 21:31: POC Glucose 171 H 11/29/21 04:36: WBC 8.0, RBC 3.51 L, Hgb 10.2 L, Hct 31.1 L, MCV 88.6, MCH 29.1, MCHC 32.8, RDW Std Deviation 46.5 H, RDW Coeff of Yudelka 14.4, Plt Count 534 H, MPV 9.5, Immature Gran % (Auto) 0.500, Neut % (Auto) 56.1, Lymph % (Auto) 33.4, [place] % (Auto) 8.8, Eos % (Auto) 1.0, Baso % (Auto) 0.2, Absolute Neuts (auto) 4.5, Absolute Lymphs (auto) 2.68, Nucleated RBC % 0 Physical Exam Narrative Physical Examination: General: awake, alert, oriented x 3 and cooperative, laying in the PCU bed, notes still discomfort to the lumbar spine but has been able to be up with assistance. Skin: normal color, normal turgor, no icterus, no cyanosis. HEENT: AT/NC, EOMI, PERRLA, MMM. Lungs: Diminished, greater bases, appropriate effort no rales, ronchi or wheezing. Heart: Regular rate and rhythm; no gallop, rub audible. Abdomen: soft, morbidly obese NTTP, ND, normal BS. Extremities: no cyanosis, clubbing, or edema, peripheral pulses intact, sensation intact, + SLR, discomfort to the lumbar spine especially paraspinous. Neurological: patient awake, alert, oriented x 3; cognitive function intact; pupils equally reactive to light and accommodation; cranial nerves grossly normal, moving all 4 extremities although further in the evaluation notes signi ficant pain therefore limited and discomfort to the lumbar and paraspinous region. Psychiatric: affect appears fatigued, does report still ongoing lumbar discomfort no acute evidence of depressive or anxiety feelings. Assessment & Plan Assessment/Plan (1) Intractable low back pain: PLAN: The patient is a 55 y/o F w/ PMHx: COPD/Asthma, IDDM, HTN, HLD, GERD, Morbid Obesity, Diabetes mellitus type II who presents to the [facility] ED on 11/27/21 w/ history of recent L4-5 lumbar interbody fusion with insertion of intervertebral mechanical device with structural allograft fusion as well as L4 bilateral laminectomy decompression with bilateral nerve root, L4-5 posterior lateral fusion and pedicle screw fixation 09/27/[address] Medellin with ongoing postoperative pain with complaints of severe debility despite pain management outpatient evaluations. #1. Ongoing postoperative lumbar pain with radiculopathy with history of lumbar stenosis with degenerative disc disease and lumbar radiculopathy: Patient with recent 09/27/[address] Medellin w/ L4-5 lumbar interbody fusion with insertion of intervertebral mechanical device with structural allograft fusion as well as L4 bilateral laminectomy decompression with bilateral nerve root, L4- 5 posterior lateral fusion and pedicle screw fixation, admitted to medical surgical status, maintained on fall precautions, recent Dr. Medellin consultation and evaluation of patient with no intention for any intervention at this time therefore at 11/29/2021 will initiate Medrol Dosepak, place lidocaine patches, administer 3 times daily gabapentin with increased regimen of 400 mg p.o. daily increased from home regimen, continue as needed narcotic therapy as needed, administer scheduled Toradol x5 doses PT/OT/case management consulted and following with precertification for skilled facility ongoing. #2. Diabetes mellitus type II: Hold oral home regimen, continue home insulin regimen, ADA diet, accu checks w/ ISS. #3. Morbid Obesity: Weight loss and lifestyle changes encouraged. #4. Hypertension: Continue home regimen including lisinopril, HCTZ with hold parameters as, PRN hydralazine. #5. Hyperlipidemia: We will continue patient on statin therapy. #6. GERD: We will maintain on home PPI #7. Chronic COPD/Asthma with allergic rhinitis: Maintain on ATC DuoNeb therapy as well as as needed albuterol, encourage head of bed and I-S usage, continue home loratadine regimen. #8. DVT prophylaxis: SCDs, lovenox. Charges/Coding Visit Charges OBSV E&M: 45392 Subsequent observation care L2
[2021-11-29 05:56] LABS: ALB/GLOB Ratio 0.5 RATIO (0.9-2.4); AST(SGOT) 11 U/L (15-37); Alanine Aminotransfer ALT/SGPT 12 U/L (13-56); Albumin, Serum 2.2 g/dL (3.2-5.0); Alkaline Phosphatase 127 U/L (45-117); Anion Gap 6 (5-15); BUN 16 mg/dL (7-18); BUN/Creat Ratio 17.7 RATIO (10-20); Calcium,Total 9.2 mg/dL (8.5-10.1); Chloride 101 mmol/L (98-107); Creatinine, Serum 0.91 mg/dL (0.55-1.02); EST Glomerular Filtration Rate 68 mL/min (>60); Est Glom Filt Rate - Afr Amer 82 mL/min (>60); Estimated Creatinine Clearance 52.09 ml/min; Globulin 4.4 g/dL (2.2-4.2); Glucose 158 mg/dL (74-106); Potassium 4.3 mmol/L (3.5-5.1); Protein, Total 6.6 g/dL (6.4-8.2); Sodium Level 134 mmol/L (136-145)
[2021-11-29 07:01] LABS: Bedside Glucose 162 mg/dL (74-106)
--- NOTE | 2021-11-29 07:14 | CASEMGMT ---
GEORGE faxed PT/OT evaluations to [facility]. Aby Wren [employer] [facility]UCE
--- NOTE | 2021-11-29 07:22 | PN.ORTHO_ITS ---
Subjective Subjective The patient was seen and examined. I did a lumbar fusion on her on 09/27/2021 and have been following her in clinic since. She has still been having complaints of persistent pain since. She was admitted here on 11/27/2021 after a fall from standing with subsequent increased back pain. Lumbar x-rays were performed on 11/27/2021 which were reviewed showing surgical changes from prior L4-5 fusion. All hardware is intact and in acceptable alignment. The patient is currently lying in bed resting comfortably. She complains of frequent episode of pain in the lumbosacral region that is worse with activity. She d enies any acute numbness tingling weakness or changes in bowel or bladder function. Objective Data Objective Data Vital Signs: Vital Signs Temp Pulse Resp BP Pulse Ox 98.5 F 90 16 122/78 H 96 11/29/21 03:26 11/29/21 03:26 11/29/21 03:26 11/29/21 03:26 11/29/21 03:26 Oxygen Delivery Method Room Air Weight: 160 lb 14.999 oz Body Mass Index (BMI) 29.4 Intake & Output: Intake and Output for Last 24 Hours 11/27/21 11/28/21 11/29/21 23:59 23:59 23:59 Intake Total 240 / 240 2835.00 / 2835.00 Balance 240 / 240 2835.00 / 2835.00 Lab / Micro Data Result Diagrams: 11/29/21 04:36 11/29/21 04:36 Labs: Laboratory Results - last 24 hr 11/28/21 06:55: Sodium 130 L, Potassium 4.3, Chloride 99, Carbon Dioxide 26.0, Anion Gap 5, BUN 25 H, Creatinine 1.09 H, Estim Creat Clear Calc 43.49, Est GFR (MDRD) Af Amer 67, Est GFR (MDRD) Non-Af 55 L, BUN/Creatinine Ratio 22.9 H, Glucose 289 H, Calcium 9.4 11/28/21 11:13: POC Glucose 212 H 11/28/21 14:17: POC Glucose 91 11/28/21 16:26: POC Glucose 207 H 11/28/21 21:31: POC Glucose 171 H 11/29/21 04:36: WBC 8.0, RBC 3.51 L, Hgb 10.2 L, Hct 31.1 L, MCV 88.6, MCH 29.1, MCHC 32.8, RDW Std Deviation 46.5 H, RDW Coeff of Yudelka 14.4, Plt Count 534 H, MPV 9.5, Immature Gran % (Auto) 0.500, Neut % (Auto) 56.1, Lymph % (Auto) 33.4, [place] % (Auto) 8.8, Eos % (Auto) 1.0, Baso % (Auto) 0.2, Absolute Neuts (auto) 4.5, Absolute Lymphs (auto) 2.68, Nucleated RBC % 0 11/29/21 04:36: Sodium 134 L, Potassium 4.3, Chloride 101, Carbon Dioxide 27.0, Anion Gap 6, BUN 16, Creatinine 0.91, Estim Creat Clear Calc 52.09, Est GFR (MDRD) Af Amer 82, Est GFR (MDRD) Non-Af 68, BUN/Creatinine Ratio 17.7, Glucose 158 H, Calcium 9.2, Total Bilirubin 0.40, AST 11 L, ALT 12 L, Alkaline Phosphatase 127 H, Total Protein 6.6, Albumin 2.2 L, Globulin 4.4 H, Albumin/Gl obulin Ratio 0.5 L 11/29/21 06:51: POC Glucose 162 H Physical Exam Const alert, oriented x3 and no apparent distress General Appearance: cooperative, comfortable and well kempt HEENT normocephalic and head/scalp atraumatic Eyes EOMs intact bilaterally and conjunctivae normal Neck full ROM General: normal visual inspection Chest inspection of chest normal Resp normal respiratory effort and normal air movement Cardio regular rate, regular rhythm and peripheral pulses 2+ throughout Peripheral Pulses: pulses 2+ throughout GI soft to palpation, non-tender and non-distended Back/Spine Back/Spine Narrative: 4 inch vertical midline scar in the lumbar region is well-healed. No tenderness erythema drainage or fluctuance Cervical Spine: cervical ROM normal Lumbar Spine / Lower Back: normal to inspection Extremity normal to inspection, full ROM, normal capillary refill, no clubbing, cyanosis or edema and no calf tenderness Skin no rashes or lesions noted General Skin Exam: no breakdown Neuro oriented x3, CN's II-XII intact bilaterally, moves all extremities, no focal motor deficits, no sensory deficits noted and deep tendon reflexes 2+ bilaterally Motor Exam: strength 5/5 throughout and muscle tone normal throughout Assessment & Plan Assessment/Plan (1) Lumbar stenosis: QUALIFIERS: Neurogenic claudication status: unspecified Qualified Code(s): M48.061 - Spinal stenosis, lumbar region without neurogenic claudication PLAN: I had a lengthy discussion with the patient. I reviewed her imaging with her. She continues to have persistent back pain status post L4-5 fusion. I recommend continued pain control and mobilization, activity as tolerated. Discharge planning, I agree with discharge to rehab if that is the recommendation. The patient can follow-up with me in clinic as scheduled. She understands and agrees with the treatment plan.
[2021-11-29 07:23] VITALS: O2SAT 94
--- NOTE | 2021-11-29 07:42 | CT_ITS ---
STUDY: CT LUMBAR SPINE WITHOUT CONTRAST REASON FOR EXAM: Female, 55 years old. Lumbar fusion on 09/27/2021. Recent fall. RADIATION DOSAGE (If Supplied By Facility): CTDIvol = ( 25.15 ) mGy, DLP = ( 680.92 ) mGycm TECHNIQUE: The patient was scanned in a multi detector CT scanner. High resolution transaxial imaging was performed. Images were obtained from L1 to S1 vertebrae. Sagittal and coronal images were reconstructed. Individualized dose optimization techniques were used for this CT. COMPARISON: None FINDINGS: Normal lumbar lordosis. There is no substantial scoliosis. Normal vertebrae of the lumbar spine. L1-2: Mild degree of anterior spondylosis. No evidence of disc herniation. L2-3: Mild degree of facet joint osteoarthritis and hypertrophy more prominent on the right side. No significant disc space narrowing or disc herniation is seen. L3-4: Mild degree of the disc space narrowing. Mild degree of diffuse posterior disc bulge causing minimal deformity of the anterior thecal sac. Anterior spondylosis. L4-5: The patient is status post laminectomy with interpedicular screw and rickey fixation. The tip of the left intrapedicular screw abuts the superior endplate of the L4 vertebrae on the left side. Focal lucency is seen surrounding the screw. This may represent loosening. A prosthetic disc is seen. L5-S1: Mild degree of diffuse posterior disc bulge. The right interpedicular screw protrudes slightly anterior to the margin of the L5 vertebrae on the right side. There is persistent soft tissue swelling along the posterior aspect of the surgical site with loculated air bubbles in the superficial soft tissues. Clinical correlation is recommended. CT/Spine Lumbar without Contrast IMPRESSION: Status post laminectomy and interpedicular screw fixation at the L4-L5 level as described. The tip of the left interpedicular screw abuts the superior endplate of the L4 vertebrae on the left side with surrounding lucency suggestive of loosening. Soft tissue swelling overlying the operative site with focal tiny air bubbles superficially in the subcutaneous tissues. Electronically Signed: Joaquin Rodney MD at 8:33 EDT ,
[2021-11-29] MEDS: 0.9% Saline Lock 10 ML Syringe IV ×2 (07:51→08:49)
[2021-11-29] MEDS: HYDROmorphone 0.5 MG/0.5 ML SYRINGE IV ×3 (07:51→21:11)
[2021-11-29 08:45] VITALS: BP 170/92; PULSE 84; RESP 16; TEMP 36.7; O2SAT 95
[2021-11-29] MEDS: Glucerna Shake 120 ML LIQUID PO ×3 (08:45→16:33)
[2021-11-29] MEDS: Lisinopril 20 MG Tablet PO ×2 (08:46→16:36)
[2021-11-29] MEDS: Pantoprazole Sodium 40 MG Tablet PO (08:46)
[2021-11-29] MEDS: Enoxaparin 40 MG/0.4 ML Syringe SC ×2 (08:46→21:11)
[2021-11-29] MEDS: Insulin Glargine-YFGN 100 UNIT/ML Pen 40 UNIT SC (08:46)
[2021-11-29] MEDS: hydroCHLOROthiazide 25 MG Tablet PO ×2 (08:46→16:36)
[2021-11-29] MEDS: Insulin Lispro 100 UNIT/ML INSULN.PEN SC ×4 (08:49→16:36)
--- NOTE | 2021-11-29 09:05 | CASEMGMT ---
Lupe at [facility] wanted to know if patient was vaccinated. SW met with patient let her know [facility] can take her, but we need to wait on her insurance to authorize. SW asked patient if she is vaccinated and patient is not. GEORGE called Lupe and let her know. Plan: d/c to [facility] pending insurance approval. Aby Wren [employer]
[2021-11-29] MEDS: Lidocaine 5% Patch 2 PATCH TOPICAL (11:35)
[2021-11-29] MEDS: tiZANidine HCl 2 MG Tablet 4 MG PO (11:36)
[2021-11-29] MEDS: Gabapentin 400 MG Capsule PO ×2 (11:36→16:33)
[2021-11-29 11:41] LABS: Bedside Glucose 88 mg/dL (74-106)
[2021-11-29] MEDS: Senna/Docusate Sodium 1 Tablet 2 TABLET PO ×2 (11:46→21:37)
[2021-11-29] MEDS: Ketorolac 15 MG/ML Vial IV ×2 (14:40→21:22)
[2021-11-29 14:45] VITALS: BP 125/86; PULSE 85; RESP 18; TEMP 36.7; O2SAT 99
[2021-11-29] MEDS: 0.9% Normal Saline 1,000 ML 75 ML IV (15:37)
[2021-11-29 16:46] LABS: Bedside Glucose 177 mg/dL (74-106)
[2021-11-29 19:30] VITALS: PULSE 90; RESP 18; O2SAT 98
[2021-11-29] MEDS: Ipratropium/Albuterol Sulfate 3 ML AMPUL.NEB INHALATION (19:30)
[2021-11-29] MEDS: Acetaminophen 325 MG Tablet 650 MG PO (21:10)
[2021-11-29] MEDS: Amitriptyline 100 MG Tablet PO (21:12)
[2021-11-29] MEDS: Atorvastatin Calcium 80 MG Tablet PO (21:12)
--- NOTE | 2021-11-29 21:22 | NURSING ---
EDUCATED PT ON THE IMPROTANCE OF TAKING HER PREDNISONE/MEDROL PACK. DISCUSSED MEDICATIONS THAT MASK PAIN VS TREATING PAIN AND ENC PT TO TAKE STEROIDS. SHE STATES SHE DOES NOT WANT TO TAKE THEM B/C THEY CAUSE HER SUGARS TO SKYROCKET. DISCUSSED W/PT THAT INCREASED GLUCOSE WOULD BE TEMPORARY AND CAN BE TEMPORARILY TREATED W/INSULIN. PT CONTINUES TO REFUSE STEROIDS AT THIS TIME. SAID MAYBE TOMORROW
[2021-11-29 21:28] VITALS: BP 189/97; PULSE 91; RESP 18; TEMP 36.1; O2SAT 98
[2021-11-29 23:11] LABS: Bedside Glucose 114 mg/dL (74-106)
[2021-11-30 04:00] VITALS: BP 117/60; PULSE 81; RESP 16; TEMP 36.4; O2SAT 95
[2021-11-30] MEDS: oxyCODONE 5 MG Tablet PO ×2 (04:35→15:23)
[2021-11-30] MEDS: Acetaminophen 325 MG Tablet 650 MG PO ×2 (04:35→15:23)
[2021-11-30] MEDS: 0.9% Normal Saline 1,000 ML 75 ML IV (04:37)
[2021-11-30 05:39] LABS: Absolute Lymphocyte Count 2.58 X10^3/uL (0.83-4.51); Absolute Neutrophil Count 5.2 X10^3/uL (2.0-7.7); Basophil# 0.02 X10^3/uL; Basophil% 0.2 % (0-1); Eosinophil# 0.07 X10^3/uL; Eosinophils% 0.8 % (0-5); Hematocrit 27.9 % (37-47); Hemoglobin 8.8 g/dL (12.0-15.0); Lymphocyte # 2.58 X10^3/ul (0.83-4.51); Mean Corp Hgb Conc 31.5 g/dL (32-36); Mean Corpuscular Hgb 28.3 pg (27.0-32.0); Mean Corpuscular Volume 89.7 fL (81-99); Mean Platelet Vol. 9.6 fl (6.2-12.0); Monocyte# 0.72 X10^3/uL; Monocyte% 8.4 % (0-10); NRBC Flagged by Analyzer 0 % (0-5); Neutrophil # 5.18 X10^3/uL (2.7-7.7); Neutrophil % 60.1 % (47-70); Platelet Count 436 K/mm3 (150-450); RBC Distribution Width CV 14.6 % (11.6-14.6); RBC Distribution Width SD 47.6 fl (35.1-43.9); Red Blood Count 3.11 M/mm3 (4.2-5.4); White Blood Count 8.6 K/mm3 (4.4-11.0)
[2021-11-30] MEDS: 0.9% Saline Lock 10 ML Syringe IV ×2 (06:06→13:26)
[2021-11-30] MEDS: Ketorolac 15 MG/ML Vial IV ×2 (06:06→13:25)
[2021-11-30 06:09] LABS: ALB/GLOB Ratio 0.5 RATIO (0.9-2.4); AST(SGOT) 12 U/L (15-37); Alanine Aminotransfer ALT/SGPT 10 U/L (13-56); Alkaline Phosphatase 108 U/L (45-117); Anion Gap 7 (5-15); BUN 17 mg/dL (7-18); BUN/Creat Ratio 19.6 RATIO (10-20); Calcium,Total 8.8 mg/dL (8.5-10.1); Chloride 102 mmol/L (98-107); Creatinine, Serum 0.87 mg/dL (0.55-1.02); EST Glomerular Filtration Rate 72 mL/min (>60); Est Glom Filt Rate - Afr Amer 87 mL/min (>60); Estimated Creatinine Clearance 54.48 ml/min; Globulin 4.1 g/dL (2.2-4.2); Glucose 98 mg/dL (74-106); Protein, Total 6.1 g/dL (6.4-8.2); Sodium Level 134 mmol/L (136-145)
--- NOTE | 2021-11-30 06:21 | PCM.PN.HOSP ---
Objective Data Objective Data Vital Signs: Vital Signs Temp Pulse Resp BP Pulse Ox 97.6 F L 81 16 117/60 95 11/30/21 04:00 11/30/21 04:00 11/30/21 04:00 11/30/21 04:00 11/30/21 04:00 Oxygen Delivery Method Room Air Weight: 161 lb 13.109 oz Body Mass Index (BMI) 29.4 Intake & Output: Intake and Output for Last 24 Hours 11/28/21 11/29/21 11/30/21 23:59 23:59 23:59 Intake Total 2835.00 / 2835.00 1300 / 1300 1575 / 1575 Balance 2835.00 / 2835.00 1300 / 1300 1575 / 1575 Lab / Micro Data Result Diagrams: 11/30/21 05:02 11/30/21 05:02 Labs: Laboratory Results - last 24 hr 11/29/21 06:51: POC Glucose 162 H 11/29/21 11:37: POC Glucose 88 11/29/21 16:35: POC Glucose 177 H 11/29/21 21:14: POC Glucose 114 H 11/30/21 05:02: WBC 8.6, RBC 3.11 L, Hgb 8.8 L, Hct 27.9 L, MCV 89.7, MCH 28.3, MCHC 31.5 L, RDW Std Deviation 47.6 H, RDW Coeff of Yudelka 14.6, Plt Count 436, MPV 9.6, Immature Gran % (Auto) 0.500, Neut % (Auto) 60.1, Lymph % (Auto) 30.0, [place] % (Auto) 8.4, Eos % (Auto) 0.8, Baso % (Auto) 0.2, Absolute Neuts (auto) 5.2, Absolute Lymphs (auto) 2.58, Nucleated RBC % 0 11/30/21 05:02: Sodium 134 L, Potassium 4.0, Chloride 102, Carbon Dioxide 25.0, Anion Gap 7, BUN 17, Creatinine 0.87, Estim Creat Clear Calc 54.48, Est GFR (MDRD) Af Amer 87, Est GFR (MDRD) Non-Af 72, BUN/Creatinine Ratio 19.6, Glucose 98, Calcium 8.8, Total Bilirubin 0.40, AST 12 L, ALT 10 L, Alkaline Phosphatase 108, Total Protein 6.1 L, Albumin 2.0 L, Globulin 4.1, Albumin/Globulin Ratio 0.5 L Radiography Diagnostic Testing: Radiology Impression Lumbar Spine CT 11/29/21 07:42 IMPRESSION: Status post laminectomy and interpedicular screw fixation at the L4-L5 level as described. The tip of the left interpedicular screw abuts the superior endplate of the L4 vertebrae on the left side with surrounding lucency suggestive of loosening. Soft tissue swelling overlying the operative site with focal tiny air bubbles superficially in the subcutaneous tissues. Electronically Signed: Joaquin Rodney MD at 8:33 EDT , Physical Exam Narrative Physical Examination: General: awake, alert, oriented x 3 and cooperative, laying in the PCU bed, notes still discomfort to the lumbar spine but has been able to be up with assistance. Skin: normal color, normal turgor, no icterus, no cyanosis. HEENT: AT/NC, EOMI, PERRLA, MMM. Lungs: Diminished, greater bases, appropriate effort no rales, ronchi or wheezing. Heart: Regular rate and rhythm; no gallop, rub audible. Abdomen: soft, morbidly obese NTTP, ND, normal BS. Extremities: no cyanosis, clubbing, or edema, peripheral pulses intact, sensation intact, + SLR, discomfort to the lumbar spine especially paraspinous. Neurological: patient awake, alert, oriented x 3; cognitive function intact; pupils equally reactive to light and accommodation; cranial nerves grossly normal, moving all 4 extremities although further in the evaluation notes significant pain therefore limited and discomfort to the lumbar and paraspinous region. Psychiatric: affect appears fatigued, does report still ongoing lumbar discomfort no acute evidence of depressive or anxiety feelings. Assessment & Plan Assessment/Plan (1) Intractable low back pain: PLAN: The patient is a 55 y/o F w/ PMHx: COPD/Asthma, IDDM, HTN, HLD, GERD, Morbid Obesity, Diabetes mellitus type II who presents to the [facility] ED on 11/27/21 w/ history of recent L4-5 lumbar interbody fusion with insertion of intervertebral mechanical device with structural allograft fusion as well as L4 bilateral laminectomy decompression with bilateral nerve root, L4-5 posterior lateral fusion and pedicle screw fixation 09/27/[address] Medellin with ongoing postoperative pain with complaints of severe debility despite pain management outpatient evaluations. #1. Ongoing postoperative lumbar pain with radiculopathy with history of lumbar stenosis with degenerative disc disease and lumbar radiculopathy: Patient with recent 09/27/[address] Medellin w/ L4-5 lumbar interbody fusion with insertion of intervertebral mechanical device with structural allograft fusion as well as L4 bilateral laminectomy decompression with bilateral nerve root, L4-5 posterior lateral fusion and pedicle screw fixation, admitted to medical surgical status, maintained on fall precautions, recent Dr. Medellin consultation and evaluation of patient with no intention for any intervention at this time therefore at 11/29/2021 will initiate Medrol Dosepak, place lidocaine patches, administer 3 times daily gabapentin with increased regimen of 400 mg p.o. daily increased from home regimen, continue as needed narcotic therapy as needed, administer scheduled Toradol x5 doses PT/OT/case management consulted and following with precertification for skilled facility ongoing. #2. Diabetes mellitus type II: Hold oral home regimen, continue home insulin regimen, ADA diet, accu checks w/ ISS. #3. Morbid Obesity: Weight loss and lifestyle changes encouraged. #4. Hypertension: Continue home regimen including lisinopril, HCTZ with hold parameters as, PRN hydralazine. #5. Hyperlipidemia: We will continue patient on statin therapy. #6. GERD: We will maintain on home PPI #7. Chronic COPD/Asthma with allergic rhinitis: Maintain on ATC DuoNeb therapy as well as as needed albuterol, encourage head of bed and I-S usage, continue home loratadine regimen. #8. DVT prophylaxis: SCDs, lovenox.
[2021-11-30 06:41] VITALS: PULSE 80; RESP 18; O2SAT 96
[2021-11-30] MEDS: Ipratropium/Albuterol Sulfate 3 ML AMPUL.NEB INHALATION (06:43)
--- NOTE | 2021-11-30 07:20 | NURSING ---
per dr durant, pt now willing to take medrol pack. pharmacy notified of need to re-time doses.
[2021-11-30 07:24] LABS: Hemoglobin 9.4 g/dL (12.0-15.0)
[2021-11-30] MEDS: Insulin Lispro 100 UNIT/ML INSULN.PEN SC ×3 (08:05→12:41)
[2021-11-30] MEDS: MethylPREDNISolone DosePak 4 MG BOX PO ×2 (08:06→12:42)
[2021-11-30] MEDS: Glucerna Shake 120 ML LIQUID PO (08:07)
[2021-11-30] MEDS: Gabapentin 400 MG Capsule PO ×2 (08:07→12:42)
[2021-11-30] MEDS: Lidocaine 5% Patch 2 PATCH TOPICAL (08:09)
[2021-11-30] MEDS: HYDROmorphone 0.5 MG/0.5 ML SYRINGE IV (08:16)
[2021-11-30 08:51] LABS: Bedside Glucose 107 mg/dL (74-106)
--- NOTE | 2021-11-30 09:14 | TREXTCAR_ITS ---
Diet 11/27/21 15:58 Diet: Consistent Carb - Calorie Controlled/ Cardiac diet Food consistency:: Regular Liquid Consistency:: Regular/Thin How many daily calories?: 1800 calorie Routine Orders/Code Status Enema Type: Fleetz Enema Frequency: Daily PRN Suppository Type: Dulcolax 10mg Suppository Frequency: Daily PRN Keep PO Greater than or Equal to (%): 92 Routine Lab Work: - (Repeat CBC, BMP in 1 week.) Code Status: Full Code Wound(s) BACK: Wound Type: Surgical Incision Suggestions for Active Care Change Position every (hours): 2 Hours to sit in a chair: 4 Times a day to sit in chair: 3 Therapies Weight Bearing: Full weight bearing Physical Therapy: Eval and Treat Occupational Therapy: Eval and Treat Problem/Diagnosis (1) Intractable low back pain: Status: Acute Allergies/Procedures Done in Hospital Allergies duloxetine [From Cymbalta] Allergy (Verified 11/27/21 13:01) Unknown Penicillins Allergy (Verified 11/27/21 13:01) NEEDS FOLLOW-UP pregabalin [From Lyrica] Allergy (Verified 11/27/21 13:01) Unknown NSAIDS (Non-Steroidal Anti-Inflamma Adverse Reaction (Verified 11/27/21 13:01) Upset Stomach Procedures: None Type of Care/Length of Stay Estimated LOS: Convalescent Care Less Than 30 days Type of Care Needed: Skilled Rehab Potential: Fair Prognosis: Fair Additional Orders/Day of Discharge Additional Orders: (1) Encourage IS 10x/hr 7a-7p, (2) OOB to chair with all meals, (3) Fall precautions, (4) Pending BS trending while on medrol dose pack may need to alter sliding scale and long acting. Day of Discharge: 11/30/21 Dietary and Speech Recommendations Dietitian Recommendations/Changes: 1800 calorie controlled, consistent CHO diet; glucerna 120mL TID for additional calories/protein if consumed given risk for malnutrition Discharge Plan Admission Admit Date/Time: 11/27/21 14:52 Primary Reason for Your Visit: Intractable back pain w/ radiculopathy, recent lumbar surgery Attending Provider: Flor Parks Primary Care Provider: Gris Fofana NP Consulting Providers: Beck Medellin Discharge Orders/Prescriptions Prescriptions: New sennosides-docusate sodium [Stool Softener-Stimulant Laxat] 8.6-50 mg Tablet 2 tab PO BID PRN PRN (Reason: Constipation) Qty: 0 RF: 0 gabapentin 400 mg Capsule 400 mg PO TIDCM 30 Days Qty: 90 RF: 0 lidocaine 5 % Adhesive Patch,Medicated 2 patch topical DAILY Qty: 0 RF: 0 methylprednisolone 4 mg Tablets,Dose Pack 8 mg PO 0800 Qty: 0 RF: 0 insulin lispro [Humalog KwikPen Insulin] 100 unit/mL Insulin Pen 5 unit subcut TIDAC Qty: 0 RF: 0 insulin lispro [Humalog KwikPen Insulin] 100 unit/mL Insulin Pen See Protocol unit subcut ACHS Qty: 0 RF: 0 Continued atorvastatin 80 mg tablet 80 mg PO QHS RF: 0 budesonide-formoterol [Symbicort] 160-4.5 mcg/actuation HFA aerosol inhaler 2 puff inhalation BID RF: 0 albuterol sulfate 90 mcg/actuation HFA aerosol inhaler 2 puff inhalation Q6H PRN (Reason: SOB) RF: 0 lisinopril-hydrochlorothiazide 20-25 mg tablet 1 tab PO BID RF: 0 insulin lispro 100 unit/mL insulin pen 8 unit subcut BID PRN (Reason: SLIDING SCALE) RF: 0 pantoprazole 40 mg tablet,delayed release (DR/EC) 40 mg PO DAILY RF: 0 tizanidine 4 mg capsule 4 mg PO BID PRN (Reason: Muscle Pain) RF: 0 insulin glargine 100 unit/mL (3 mL) insulin pen 42 unit SC DAILY RF: 0 ipratropium-albuterol 0.5 mg-3 mg(2.5 mg base)/3 mL solution for nebulization 3 ml inhalation 4X/DAY PRN (Reason: sob) RF: 0 amitriptyline 100 mg tablet 100 mg PO QHS RF: 0 loratadine 10 mg tablet 10 mg PO DAILY RF: 0 oxycodone 5 mg tablet 5 mg PO Q6H PRN (Reason: Pain) 5 Days Qty: 30 RF: 0 Discontinued gabapentin 300 mg capsule 300 mg PO TID RF: 0 Referrals / Follow Up: Beck Medellin DO [STAFF PHYSICIAN] - (Please follow-up within 2-4 weeks or as previously recommended per Dr. Medellin.) Gris Fofana COMPUTER SYSTEMS ENGINEER, COMPUTER SYSTEMS ENGINEER-C [Primary Care Provider] - (Follow-up within 1-2 days SNF discharge.) Disposition Disposition (needs filled in before D/C Order can be placed): [facility]
--- NOTE | 2021-11-30 09:16 | DS.PCM_ITS ---
Providers Date of Admission: 11/27/21 Primary Care Physician: Gris Fofana NP Consultations 11/27/21 15:58 Consult: Orthopedics Routine Consulting Provider: Beck Medellin Reason for Consult: Status post laminectomy. Severe pain EMERGENT Consult: No MD Notified: Yes Date Notified: 11/27/21 Time Notified: 15:15 Method of Notification: Verbal Comments:: ED physician. Dr Mercedes discussed with Dr. Medellin Reason For Visit: RECURRENT FALL Diagnosis Discharge Diagnosis (1) Intractable low back pain: Status: Acute Code(s): M54.59 - Other low back pain Medications at Discharge Home Medications insulin glargine 100 unit/mL (3 mL) subcutaneous pen 42 unit SC DAILY 11/03/20 albuterol sulfate 90 mcg/actuation aerosol inhaler 2 puff INHALATION Q6H PRN 06/14/21 atorvastatin 80 mg tablet 80 mg PO QHS 06/14/21 budesonide-formoterol HFA 160 mcg-4.5 mcg/actuation aerosol inhaler 2 puff INHALATION BID 06/14/21 insulin lispro 100 unit/mL subcutaneous pen 8 unit SUBCUT BID PRN ml 06/14/21 lisinopril 20 mg-hydrochlorothiazide 25 mg tablet 1 tab PO BID 06/14/21 pantoprazole 40 mg tablet,delayed release 40 mg PO DAILY 06/14/21 tizanidine 4 mg capsule 4 mg PO BID PRN 06/14/21 amitriptyline 100 mg PO QHS 11/27/21 ipratropium-albuterol 3 ml INHALATION 4X/DAY PRN 11/27/21 loratadine 10 mg PO DAILY 11/27/21 gabapentin 400 mg PO TIDCM 30 Days #90 cap 11/30/21 insulin lispro [Humalog KwikPen Insulin] 5 unit SUBCUT TIDAC #0 ml 11/30/21 insulin lispro [Humalog KwikPen Insulin] See Protocol SUBCUT ACHS #0 ml 11/30/21 lidocaine 2 patch TOPICAL DAILY #0 ea 11/30/21 methylprednisolone 8 mg PO 0800 #0 tab 11/30/21 oxycodone 5 mg PO Q6H PRN 5 Days #30 tab 11/30/21 sennosides-docusate sodium [Stool Softener-Stimulant Laxat] 2 tab PO BID PRN PRN #0 tab 11/30/21 Hospital Course Operations None Procedures None Summary of Care Provided Minutes Spent on Discharge: 35 Hospital Course: Discharge Diagnoses: #1. Ongoing postoperative lumbar pain with radiculopathy with history of lumbar stenosis with degenerative disc disease and lumbar radiculopathy #2. Diabetes mellitus type II #3. Morbid Obesity #4. Hypertension #5. Hyperlipidemia #6. GERD #7. Chronic COPD/Asthma with allergic rhinitis #8. Chronic normocytic anemia Discharge Summary: The patient is a 55 y/o F w/ PMHx: Chronic normocytic anemia, COPD/Asthma, IDDM, HTN, HLD, GERD, Morbid Obesity, Diabetes mellitus type II who presented to [facility] ED on 11/27/21 w/ history of recent L4-5 lumbar interbody fusion with insertion of intervertebral mechanical device with structural allograft fusion as well as L4 bilateral laminectomy decompression with bilateral nerve root, L4-5 posterior lateral fusion and pedicle screw fixa tion 09/27/[address] Medellin with ongoing postoperative pain with complaints of severe debility despite pain management outpatient evaluations. Given debilitya and pain, patient admitted to medical surgical status, maintained on fall precautions, Dr. Medellin consultation and evaluation of patient with no intention for any intervention at this time therefore 11/29/2021 initiated Medrol Dosepak, placed lidocaine patches, administered 3 times daily gabapentin with increased regimen of 400 mg p.o. daily increased from home regimen, continued as needed narcotic therapy as needed, administered scheduled Toradol x5 doses. PT/OT/case management consulted recommended SNF placement which was obtained. Discharge Time: > 35 Minutes DAY OF DISCHARGE PROGRESS NOTE: Subjective: Patient without acute event overnight per self and nursing report but does report ongoing discomfort. She also noted reticent to take the steroids but following discussions started medrol dose pack. Patient denies fever, chills , nausea, emesis, abdominal pain, chest pain or dyspnea. Patient agreeable to discharge to SNF for ongoing therapies and pain treatment. Patient will be discharged with follow-up with primary care physician as well as follow-up with Dr. Medellin. Objective: T 97.7, heart rate 95, BP 139/82, respiratory rate 16, 98% room air. Physical Examination: General: awake, alert, oriented x 3 and cooperative, laying in the PCU bed, notes still discomfort to the lumbar spine but per nursing overnight was able to be up with assist to restroom. Initially declined steroids but amenable following discussions. Skin: normal color, normal turgor, no icterus, no cyanosis. HEENT: AT/NC, EOMI, PERRLA, MMM. Lungs: Diminished, greater bases, appropriate effort no rales, ronchi or wheezing. Heart: Regular rate and rhythm; no gallop, rub audible. Abdomen: soft, morbidly obese NTTP, ND, normal BS. Extremities: no cyanosis, clubbing, or edema, peripheral pulses intact, sensation intact, + SLR, discomfort to the lumbar spine especially paraspinous. Neurological: patient awake, alert, oriented x 3; cognitive function intact; pupils equally reactive to light and accommodation; cranial nerves grossly normal, moving all 4 extremities but limited secondary to pain, ongoing discomfort to the lumbar and paraspinous region, strength according moderately globally decreased. Psychiatric: affect appears mildly uncomfortable, no acute evidence of depressive or anxiety feelings. Assessment and Plan: Please see hospital summary above. Weight / BMI Weight Weight: 161 lb 13.109 oz Body Mass Index (BMI) 29.4 ABG / Lab / Microbiology Data Result Diagrams: 11/30/21 07:15 11/30/21 05:02 Laboratory: Laboratory Results - last 24 hr 11/29/21 11:37: POC Glucose 88 11/29/21 16:35: POC Glucose 177 H 11/29/21 21:14: POC Glucose 114 H 11/30/21 05:02: WBC 8.6, RBC 3.11 L, Hgb 8.8 L, Hct 27.9 L, MCV 89.7, MCH 28.3, MCHC 31.5 L, RDW Std Deviation 47.6 H, RDW Coeff of Yudelka 14.6, Plt Count 436, MPV 9.6, Immature Gran % (Auto) 0.500, Neut % (Auto) 60.1, Lymph % (Auto) 30.0, [place] % (Auto) 8.4, Eos % (Auto) 0.8, Baso % (Auto) 0.2, Absolute Neuts (auto) 5.2, Absolute Lymphs (auto) 2.58, Nucleated RBC % 0 11/30/21 05:02: Sodium 134 L, Potassium 4.0, Chloride 102, Carbon Dioxide 25.0, Anion Gap 7, BUN 17, Creatinine 0.87, Estim Creat Clear Calc 54.48, Est GFR (MDRD) Af Amer 87, Est GFR (MDRD) Non-Af 72, BUN/Creatinine Ratio 19.6, Glucose 98, Calcium 8.8, Total Bilirubin 0.40, AST 12 L, ALT 10 L, Alkaline Phosphatase 108, Total Protein 6.1 L, Albumin 2.0 L, Globulin 4.1, Albumin/Globulin Ratio 0.5 L 11/30/21 07:15: Hgb 9.4 L 11/30/21 08:04: POC Glucose 107 H Meaningful Use Info Meaningful Use Diagnoses (Choose all that apply): None applicable Discharge Plan Admission Admit Date/Time: 11/27/21 14:52 Primary Reason for Your Visit: Intractable back pain w/ radiculopathy, recent lumbar surgery Attending Provider: Flor Parks Primary Care Provider: Gris Fofana NP Consulting Providers: Beck Medellin Discharge Orders/Prescriptions Prescriptions: New sennosides-docusate sodium [Stool Softener-Stimulant Laxat] 8.6-50 mg Tablet 2 tab PO BID PRN PRN (Reason: Constipation) Qty: 0 RF: 0 gabapentin 400 mg Capsule 400 mg PO TIDCM 30 Days Qty: 90 RF: 0 lidocaine 5 % Adhesive Patch,Medicated 2 patch topical DAILY Qty: 0 RF: 0 methylprednisolone 4 mg Tablets,Dose Pack 8 mg PO 0800 Qty: 0 RF: 0 insulin lispro [Humalog KwikPen Insulin] 100 unit/mL Insulin Pen 5 unit subcut TIDAC Qty: 0 RF: 0 insulin lispro [Humalog KwikPen Insulin] 100 unit/mL Insulin Pen See Protocol unit subcut ACHS Qty: 0 RF: 0 Continued atorvastatin 80 mg tablet 80 mg PO QHS RF: 0 budesonide-formoterol [Symbicort] 160-4.5 mcg/actuation HFA aerosol inhaler 2 puff inhalation BID RF: 0 albuterol sulfate 90 mcg/actuation HFA aerosol inhaler 2 puff inhalation Q6H PRN (Reason: SOB) RF: 0 lisinopril-hydrochlorothiazide 20-25 mg tablet 1 tab PO BID RF: 0 insulin lispro 100 unit/mL insulin pen 8 unit subcut BID PRN (Reason: SLIDING SCALE) RF: 0 pantoprazole 40 mg tablet,delayed release (DR/EC) 40 mg PO DAILY RF: 0 tizanidine 4 mg capsule 4 mg PO BID PRN (Reason: Muscle Pain) RF: 0 insulin glargine 100 unit/mL (3 mL) insulin pen 42 unit SC DAILY RF: 0 ipratropium-albuterol 0.5 mg-3 mg(2.5 mg base)/3 mL solution for nebulization 3 ml inhalation 4X/DAY PRN (Reason: sob) RF: 0 amitriptyline 100 mg tablet 100 mg PO QHS RF: 0 loratadine 10 mg tablet 10 mg PO DAILY RF: 0 oxycodone 5 mg tablet 5 mg PO Q6H PRN (Reason: Pain) 5 Days Qty: 30 RF: 0 Discontinued gabapentin 300 mg capsule 300 mg PO TID RF: 0 Referrals / Follow Up: Beck Medellin DO [STAFF PHYSICIAN] - (Please follow-up within 2-4 weeks or as previously recommended per Dr. Medellin.) Gris Fofaan INK BLENDER, INK BLENDER-C [Primary Care Provider] - (Follow-up within 1-2 days SNF discharge.) Disposition Disposition (needs filled in before D/C Order can be placed): Nursing Home Facility Charges/Coding Visit Charges OBSV E&M: 87466 Observation care discharge
--- NOTE | 2021-11-30 09:19 | CASEMGMT ---
GEORGE received a call from [facility] and patient was approved to go to [place]. SW notified physician. SW will notify patient. Aby BARRERA
[2021-11-30 10:30] VITALS: BP 139/82; PULSE 95; RESP 16; TEMP 36.5; O2SAT 98
[2021-11-30] MEDS: Lisinopril 20 MG Tablet PO (10:38)
[2021-11-30] MEDS: Senna/Docusate Sodium 1 Tablet 2 TABLET PO (10:38)
[2021-11-30] MEDS: Pantoprazole Sodium 40 MG Tablet PO (10:38)
[2021-11-30] MEDS: Enoxaparin 40 MG/0.4 ML Syringe SC (10:38)
[2021-11-30] MEDS: hydroCHLOROthiazide 25 MG Tablet PO (10:38)
[2021-11-30] MEDS: tiZANidine HCl 2 MG Tablet 4 MG PO (10:39)
--- NOTE | 2021-11-30 11:05 | CASEMGMT ---
SW let patient know that her insurance approved her to go to [facility] so she will go today. Patient told SW she has to go home first to get clothes and toothbrush etc. SW told her that is not how it works. Insurance wants patient to go from [facility] directly to the facility. Patient was upset and did not like that answer. SW asked if she had anyone that could get clothes for her. Patient does not. Patient asked if she could leave [facility] to go home. SW told patient GEORGE will ask and let her know. GEORGE called Lupe and left her a voice mail requesting a return call. In the meantime patient asked for GEORGE 2-3 more times asking the same question. SW told her the same answer. SW told patient SW will let her know what [facility] says when they call GEORGE back. Aby BARRERA
--- NOTE | 2021-11-30 11:13 | CASEMGMT ---
Lupe called GEORGE back and said patient cannot stop at home on her way to the SNF. Lupe said patient can get a pass to leave [place]. She cannot be gone longer than 4 hours. Someone has to pick her up and sign her out. That person will be responsible for patient until she returns. GEORGE went to patients room and let her know this information. Patient was okay with this. GEORGE let patient know SW will work on setting up transportation. GEORGE called [facility] [place]. [place] [id number]. Someone will call GEORGE or PCU to notify of waste picker time. Aby Wren AOC OPERATIONS INTELLIGENCE CHIEF BRUCE
--- NOTE | 2021-11-30 12:36 | CASEMGMT ---
GEORGE called [facility] and spoke with MACIEJ. TJ said they are still working on setting up the transport. They will call SW or nurses station with roll picker time. Aby BARRERA
[2021-11-30] MEDS: Insulin Glargine-YFGN 100 UNIT/ML Pen 40 UNIT SC (12:41)
[2021-11-30 12:51] LABS: Bedside Glucose 238 mg/dL (74-106)
--- NOTE | 2021-11-30 14:28 | CASEMGMT ---
Addendum entered by Aby Wren 11/30/21 14:43: SW updated patient. Aby BARRERA Original Note: GEORGE called [facility] and spoke with Joellen. GEORGE explained SW called at 10:46a and requested transport. Joellen checked and there was nothing in the request regarding [facility] being the preferred provider. Joellen put this information in the computer and sent the request. Await return call. Aby BARRERA
--- NOTE | 2021-11-30 15:11 | CASEMGMT ---
Lupe from [facility] called to check on when patient is going to be transported. GEORGE told Lupe VAZQUEZ is waiting on [facility] to call with a pick up attendant time. GEORGE called at 10:46 to set it up. GEORGE has called 2 times after that checking and nothing has been arranged yet. Lupe checked and they can come and pick up attendant patient. GEORGE let RN know as well as certified legal secretary specialist. GEORGE called [facility] and canceled transport. Plan: d/c to [facility] under intermediate level of care on a PASRR as she is observation status. Aby Wren AIRCRAFT CAPTAIN BRUCE
[2021-11-30 15:27] VITALS: BP 174/93; PULSE 93; RESP 16; TEMP 36.5; O2SAT 95
--- NOTE | 2021-11-30 15:40 | NURSING ---
Report called to [facility] to Radha MERINO
== END 2021-11-30 09:05 ==
LOC: ED 14:58 → PCU 15:11
PROVIDERS: Hospitalist; Admitting Provider Internal Medicine; Emergency Provider Emergency Medicine; PCP Nurse Practitioner Primary Care; Visit Provider Family Medicine
DX: G89.28 Other chronic postprocedural pain (principal); J44.9 Chronic obstructive pulmonary disease, unspecified; E66.01 Morbid (severe) obesity due to excess calories; Z79.4 Long term (current) use of insulin; E11.9 Type 2 diabetes mellitus without complications; M48.061 Spinal stenosis, lumbar region without neurogenic claudication; E78.5 Hyperlipidemia, unspecified; K21.9 Gastro-esophageal reflux disease without esophagitis; I10 Essential (primary) hypertension; E87.1 Hypo-osmolality and hyponatremia; I25.10 Atherosclerotic heart disease of native coronary artery without angina pectoris; R53.81 Other malaise; M47.26 Other spondylosis with radiculopathy, lumbar region; D64.9 Anemia, unspecified; Z79.899 Other long term (current) drug therapy; Z91.81 History of falling; F17.210 Nicotine dependence, cigarettes, uncomplicated
CPT/HCPCS: 36415; 72100; 72131; 80048; 80053; 81001; 82962; 83735; 85018; 85025; 87426; 94640; 96361; 96372; 96374; 96375; 96376; 97110; 97162; 97166; 97530; 97535; 97802; 99218; 99251; 99285; 99406; J7030; A4216; G0378; G0463

== ENCOUNTER 2021-12-21 14:51 | Outpatient (CLI) | payer MEDICAID, SELFPAY ==
--- NOTE | 2021-12-21 15:06 | MRI_ITS ---
EXAM: MR LUMBAR SPINE WITHOUT AND WITH INTRAVENOUS CONTRAST CLINICAL INDICATION: SPINAL STENOSIS SEVERE PAIN SINCE SURGERY, FEVERED, DIAPHORESIS TECHNIQUE: Multiplanar and multisequence MR images of the lumbar spine without and with intravenous contrast. This report was created using Cardiac Guard report [employer] technology. CONTRAST: IV 15 cc dotarem COMPARISON: CT Nov 29 2021 8:11am FINDINGS: VERTEBRAE: See below. SPINAL CORD: Unremarkable. Normal position and signal intensity of the conus medullaris. SOFT TISSUES: Unremarkable. DISCS/SPINAL CANAL/NEURAL FORAMINA: L1-L2: L1-2: Normal endplates. Normal disc height and morphology. Normal central canal and intervertebral neuroforamina. L2-L3: L2-3: Loss of intervertebral disc height. There is endplate spondylosis of the vertebral body. Normal central canal and intervertebral neuroforamina. There is bilateral facet arthropathy. L3-L4: L3-4: Loss of intervertebral disc height. There is endplate spondylosis of the vertebral body. Normal central canal and intervertebral neuroforamina. There is bilateral facet arthropathy. Diffuse enhancement of the vertebral body of L3. There is bilateral ligamentum flavum thickening. L4-L5: L4-5: Loss of intervertebral disc height. There is endplate spondylosis of the vertebral body. Normal central canal and intervertebral neuroforamina. There is bilateral facet arthropathy. Status post laminectomy and interpedicular screw fixation at the L4-L5 level. Fusion cage in place. Diffuse enhancement of the vertebral body of L4 and L5. There is epidural thickening and enhancement. L5-S1: Loss of intervertebral disc height. There is endplate spondylosis of the vertebral body. Normal central canal and intervertebral neuroforamina. There is bilateral facet arthropathy. MRI/Spine Lumbar W/WO Contrast IMPRESSION: Diffuse enhancement of the vertebral body of L3, L4 and L5. This is concerning for osteomyelitis. There is epidural thickening and enhancement at L4-5 which can represent an epidural phlegmon. Electronically Signed: Elijah Jamil MD at 16:52 EDT ,
== END 2021-12-21 23:59 | disposition home or self-care (01) ==
LOC: MRI 14:53
PROVIDERS: PCP Nurse Practitioner Primary Care; Referring Provider Orthopaedic Surgery; Visit Provider Orthopaedic Surgery
DX: M48.061 Spinal stenosis, lumbar region without neurogenic claudication (principal)
CPT/HCPCS: 72158; A9575

== ENCOUNTER 2021-12-24 13:52 | Emergency (ER) | payer MEDICAID, SELFPAY ==
[2021-12-24 13:53] VITALS: BP 136/107; PULSE 104; RESP 16; TEMP 36.2; O2SAT 98; BMI 30.4
--- NOTE | 2021-12-24 15:11 | ED.VIS.BACK ---
HPI History of Present Illness Chief Complaint: Back Informant: patient Onset/Context/Timing Onset: Month(s) Context: Gradual Onset Timing: Continuous Quality: Sharp, Aching and - (Stabbing) Location: Lumbar Worsened by: improves with Movement Relieved by: Remaining Still (Laying completely flat) Associated Symptoms Associated Symptoms: Negative for Numbness, Tingling, Radiation to Right Leg, Radiation to Left Leg, Fever, Abdominal Pain, Dysuria, Unable to Ambulate, Unable to Transfer, Urinary Retention, Urinary Incontinence, Constipation and Fecal Incontinence Narrative Narrative: Patient presents with back pain that has been getting progressively worse over the past few months. Patient had lumbar fusion surgery on 09/27/[address] Medellin. Patient states her pain has been constant since the surgery. Patient states the pain is sharp and stabbing. Patient states it is over the lower lumbar area. Patient states it is worse with movement. Patient states it eases up some when she lays completely flat. Patient denies any radiation of the pain. Patient denies any bowel or bladder changes. Patient denies any saddle anesthesia. [facility] Medical History Anxiety Arthritis Asthma Back pain Back pain Cardiology follow-up encounter Chronic neck and back pain COPD (chronic obstructive pulmonary disease) Coronary artery calcification seen on CAT scan Depression Diabetes Dietary restriction Difficulty balancing Essential hypertension Gastric reflux High cholesterol History of arthritis History of echocardiogram History of edema History of pain when walking History of renal disease History of stomach ulcers History of stress test Hyperlipidemia Hypertension Injury of head and neck Insulin dependent diabetes mellitus Knee pain Lumbar stenosis Migraine headache Obesity Shortness of breath on exertion Shoulder pain Sleep apnea Smoker Strain of muscle, fascia and tendon of pelvis, initial encounter Strain of right hip and thigh Strain of right inguinal region Strain of unspecified muscles, fascia and tendons at thigh level, right thigh, initial encounter Syncope Thyroid disease Type 2 diabetes mellitus Walker as ambulation aid Wears glasses Wears hearing aid Home Medications insulin glargine 100 unit/mL (3 mL) subcutaneous pen 42 unit SC DAILY 11/03/20 [History Last Taken 12/23/21] albuterol sulfate 90 mcg/actuation aerosol inhaler 2 puff INHALATION Q6H PRN 06/14/21 [History Last Taken 11/26/21] atorvastatin 80 mg tablet 80 mg PO QHS 06/14/21 [History Last Taken 12/23/21] budesonide-formoterol HFA 160 mcg-4.5 mcg/actuation aerosol inhaler 2 puff INHALATION BID 06/14/21 [History Last Taken 12/23/21] lisinopril 20 mg-hydrochlorothiazide 25 mg tablet 1 tab PO BID 06/14/21 [History Last Taken 12/23/21] pantoprazole 40 mg tablet,delayed release 40 mg PO DAILY 06/14/21 [History Last Taken 12/23/21] tizanidine 4 mg capsule 4 mg PO BID PRN 06/14/21 [History Last Taken 11/27/21] amitriptyline 100 mg PO QHS 11/27/21 [History Last Taken 12/23/21] ipratropium-albuterol 3 ml INHALATION 4X/DAY PRN 11/27/21 [History Last Taken 11/25/21] loratadine 10 mg PO DAILY 11/27/21 [History Last Taken 12/23/21] gabapentin 400 mg PO TIDCM 30 Days #90 cap 11/30/21 [Rx Last Taken 12/23/21] insulin lispro [Humalog KwikPen Insulin] See Protocol SUBCUT ACHS #0 ml 11/30/21 [Rx Last Taken Unknown] oxycodone 5 mg PO Q6H PRN 5 Days #30 tab 11/30/21 [Rx Last Taken 12/23/21] sennosides-docusate sodium [Stool Softener-Stimulant Laxat] 2 tab PO BID PRN PRN #0 tab 11/30/21 [Rx Last Taken Unknown] levofloxacin 750 mg PO DAILY #7 tab 12/24/21 [Rx Last Taken Unknown] sulfamethoxazole-trimethoprim 1 tab PO BID #14 tablet 12/24/21 [Rx Last Taken Unknown] Allergy/AdvReac Type Severity Reaction Status Date / Time duloxetine [From Cymbalta] Allergy Unknown Verified 12/24/21 13:55 Penicillins Allergy NEEDS Verified 12/24/21 13:55 FOLLOW-UP pregabalin [From Lyrica] Allergy Unknown Verified 12/24/21 13:55 NSAIDS (Non-Steroidal AdvReac Upset Verified 12/24/21 13:55 Anti-Inflamma Stomach Family History Other Cancer Diabetes Surgical History History of ankle surgery History of History of carpal tunnel release History of hysterectomy History of open reduction and internal fixation (ORIF) procedure History of partial thyroidectomy Social History Smoking Status: Current every day smoker tobacco type: cigarettes alcohol intake: never ROS ROS ED Constitutional Constitutional ED: Denies chills or fever(s) Eyes Eyes: Denies blurry vision or change in vision ENT ENT ED: Denies rhinorrhea or sore throat Cardiovascular Cardiovascular: Denies chest pain or palpitations Respiratory/Chest Respiratory/Chest: Denies cough or dyspnea Gastrointestinal Gastrointestinal: Reports nausea; Denies vomiting Genitourinary Genitourinary ED: Denies dysuria or hematuria Musculoskeletal Musculoskeletal: Reports back pain and neck pain Integumentary Denies abscess or rash Neurologic Neurologic: Denies headache(s) or weakness Allergic/Immunologic Allergic/Immunologic ED: Denies mouth swelling or urticaria EXAM Physical Exam Const Vital Signs: 12/24/21 13:53 Temperature 97.2 F L Temperature Source Temporal Pulse Rate 104 H Respiratory Rate 16 Blood Pressure 136/107 H Blood Pressure Mean 116 Pulse Ox 98 Positive well nourished and well developed General Appearance ED: well developed and NAD HEENT Reports moist mucous membranes Neck supple and no JVD Resp normal respiratory effort and clear to auscultation bilaterally Cardio regular rate and regular rhythm GI soft to palpation and non-tender Extremity normal to inspection General Extremety ED: Negative for edema or tenderness General Extremity: Negative for edema Neuro oriented x3 and no sensory deficits noted Sensorium / Orientation: alert Motor Exam: strength 5/5 throughout Psych mental status grossly normal MDM MDM MDM Narrative Medical decision making narrative: Patient was given IV fluids, morphine, and Zofran here. CBC shows normal white blood cell count. There is a mild anemia with a hemoglobin of 10.8 and hematocrit 34.3. Platelets were slightly elevated at 519. Sed rate was elevated at 91. CRP was elevated at 52.5. Comprehensive metabolic profile shows slightly elevated creatinine of 1.38 and BUN of 28. Case was discussed with Dr. Medellin. He recommended admission to the hospital. He recommended consulting infectious disease and started patient on vancomycin. These were ordered. Case was discussed with the hospitalist. He was in to evaluate the patient. Patient is refusing to be admitted to the hospital. Patient removed her own IV. I discussed her results with her. She was advised that she should be admitted to the hospital. Patient was signed out AGAINST MEDICAL ADVICE. Case was discussed with Dr. Medellin again. He recommended starting the patient on Bactrim and Levaquin as an outpatient. Patient is agreeable with this. Prescriptions were sent to the pharmacy. Patient will take them as prescribed. Patient understands and is agreeable with the plan. Lab Data Attestation: I reviewed the patient's lab results. Labs: Laboratory Results - last 24 hr 12/24/21 12/24/21 15:22 15:22 WBC 8.9 RBC 3.90 L Hgb 10.8 L Hct 34.3 L MCV 87.9 MCH 27.7 MCHC 31.5 L RDW Std Deviation 47.5 H RDW Coeff of Yudelka 14.9 H Plt Count 519 H MPV 9.8 Immature Gran % (Auto) 0.400 Neut % (Auto) 73.3 H Lymph % (Auto) 19.1 [place] % (Auto) 6.3 Eos % (Auto) 0.8 Baso % (Auto) 0.1 Absolute Neuts (auto) 6.5 Absolute Lymphs (auto) 1.70 Nucleated RBC % 0 ESR 91 H Sodium 132 L Potassium 4.4 Chloride 99 Carbon Dioxide 26.0 Anion Gap 7 BUN 28 H Creatinine 1.38 H Estim Creat Clear Calc 33.94 Est GFR (MDRD) Af Amer 51 L Est GFR (MDRD) Non-Af 42 L BUN/Creatinine Ratio 20.3 H Glucose 305 H Calcium 9.6 Total Bilirubin 0.40 AST 8 L ALT 12 L Alkaline Phosphatase 128 H C-React Prot Ext Range 52.50 H Total Protein 7.6 Albumin 2.7 L Globulin 4.9 H Albumin/Globulin Ratio 0.6 L Discharge Plan Triage Chief Complaint: Back ED Provider: Oni Chavez Dx/Rx/DC Orders Clinical Impression: Osteomyelitis of lumbar spine, Type 2 diabetes mellitus Prescriptions: New sulfamethoxazole-trimethoprim [sulfamethoxazole-trimethoprim] 1 TABLET tablet 1 tab PO BID Qty: 14 RF: 0 levofloxacin 750 mg tablet 750 mg PO DAILY Qty: 7 RF: 0 No Action atorvastatin 80 mg tablet 80 mg PO QHS RF: 0 budesonide-formoterol [Symbicort] 160-4.5 mcg/actuation HFA aerosol inhaler 2 puff inhalation BID RF: 0 albuterol sulfate 90 mcg/actuation HFA aerosol inhaler 2 puff inhalation Q6H PRN (Reason: SOB) RF: 0 lisinopril-hydrochlorothiazide 20-25 mg tablet 1 tab PO BID RF: 0 pantoprazole 40 mg tablet,delayed release (DR/EC) 40 mg PO DAILY RF: 0 tizanidine 4 mg capsule 4 mg PO BID PRN (Reason: Muscle Pain) RF: 0 insulin glargine 100 unit/mL (3 mL) insulin pen 42 unit SC DAILY RF: 0 ipratropium-albuterol 0.5 mg-3 mg(2.5 mg base)/3 mL solution for nebulization 3 ml inhalation 4X/DAY PRN (Reason: sob) RF: 0 amitriptyline 100 mg tablet 100 mg PO QHS RF: 0 loratadine 10 mg tablet 10 mg PO DAILY RF: 0 sennosides-docusate sodium [Stool Softener-Stimulant Laxat] 8.6-50 mg Tablet 2 tab PO BID PRN PRN (Reason: Constipation) Qty: 0 RF: 0 gabapentin 400 mg Capsule 400 mg PO TIDCM 30 Days Qty: 90 RF: 0 insulin lispro [Humalog KwikPen Insulin] 100 unit/mL Insulin Pen See Protocol unit subcut ACHS Qty: 0 RF: 0 oxycodone 5 mg tablet 5 mg PO Q6H PRN (Reason: Pain) 5 Days Qty: 30 RF: 0 Primary Care Provider: Gris Fofana NP Referrals: Gris Fofana NP, GLOBAL MARKETING OPERATIONS MANAGER-C [Primary Care Provider] - Disposition Disposition: Against Medical Advice Discharge Date/Time: 12/24/21 16:59
[2021-12-24] MEDS: 0.9% Normal Saline 1,000 ML 1000 ML IV (15:30)
[2021-12-24] MEDS: Ondansetron 4 MG/2 ML Vial IV (15:30)
[2021-12-24] MEDS: Morphine 4 MG/ML Syringe IV (15:31)
[2021-12-24 15:36] LABS: Absolute Neutrophil Count 6.5 X10^3/uL (2.0-7.7); Basophil# 0.01 X10^3/uL; Basophil% 0.1 % (0-1); Eosinophil# 0.07 X10^3/uL; Eosinophils% 0.8 % (0-5); Hematocrit 34.3 % (37-47); Hemoglobin 10.8 g/dL (12.0-15.0); Lymphocyte % 19.1 % (19-41); Mean Corp Hgb Conc 31.5 g/dL (32-36); Mean Corpuscular Hgb 27.7 pg (27.0-32.0); Mean Corpuscular Volume 87.9 fL (81-99); Mean Platelet Vol. 9.8 fl (6.2-12.0); Monocyte# 0.56 X10^3/uL; Monocyte% 6.3 % (0-10); NRBC Flagged by Analyzer 0 % (0-5); Neutrophil # 6.51 X10^3/uL (2.7-7.7); Neutrophil % 73.3 % (47-70); Platelet Count 519 K/mm3 (150-450); RBC Distribution Width CV 14.9 % (11.6-14.6); RBC Distribution Width SD 47.5 fl (35.1-43.9); White Blood Count 8.9 K/mm3 (4.4-11.0)
[2021-12-24 15:59] LABS: ALB/GLOB Ratio 0.6 RATIO (0.9-2.4); AST(SGOT) 8 U/L (15-37); Alanine Aminotransfer ALT/SGPT 12 U/L (13-56); Albumin, Serum 2.7 g/dL (3.2-5.0); Alkaline Phosphatase 128 U/L (45-117); Anion Gap 7 (5-15); BUN 28 mg/dL (7-18); BUN/Creat Ratio 20.3 RATIO (10-20); Calcium,Total 9.6 mg/dL (8.5-10.1); Chloride 99 mmol/L (98-107); Creatinine, Serum 1.38 mg/dL (0.55-1.02); EST Glomerular Filtration Rate 42 mL/min (>60); Est Glom Filt Rate - Afr Amer 51 mL/min (>60); Estimated Creatinine Clearance 33.94 ml/min; Globulin 4.9 g/dL (2.2-4.2); Glucose 305 mg/dL (74-106); Potassium 4.4 mmol/L (3.5-5.1); Protein, Total 7.6 g/dL (6.4-8.2); Sodium Level 132 mmol/L (136-145)
[2021-12-24 16:08] LABS: Erythrocyte Sedimentation Rate 91 mm/hr (0-30)
--- NOTE | 2021-12-24 16:50 | ED.RN ---
Dr. Sánchez in to see patient for admission, prior to patient was refusing admission. Patient refused admission not today she stated to Dr. Sánchez. Patient refused to stay further and pulled own IV from arm, AMA form signed but refused copy. Requested PO antibiotics to be called into [facility] pharmacy.
== END 2021-12-24 16:59 | disposition left against medical advice (07) ==
PROVIDERS: Emergency Provider Emergency Medicine; PCP Nurse Practitioner Primary Care; Visit Provider Emergency Medicine
DX: M46.26 Osteomyelitis of vertebra, lumbar region (principal); J44.9 Chronic obstructive pulmonary disease, unspecified; E11.9 Type 2 diabetes mellitus without complications; Z79.4 Long term (current) use of insulin; I10 Essential (primary) hypertension; R79.82 Elevated C-reactive protein (CRP); I25.10 Atherosclerotic heart disease of native coronary artery without angina pectoris; R15.9 Full incontinence of feces; E78.00 Pure hypercholesterolemia, unspecified; E78.5 Hyperlipidemia, unspecified; D64.9 Anemia, unspecified
CPT/HCPCS: J2405; 80053; 85025; 86140; 99282; 85652; 87040; J7030; J7040; J7050; A4216

== ENCOUNTER 2021-12-26 13:17 | Inpatient (IN) | payer MEDICAID, SELFPAY ==
[2021-12-26 13:19] VITALS: BP 160/110; PULSE 119; RESP 18; TEMP 36.1; O2SAT 97; BMI 30.2
[2021-12-26 13:22] VITALS: BP 160/110; PULSE 119; RESP 18; TEMP 36.1; O2SAT 97
--- NOTE | 2021-12-26 13:47 | EDS_ITS ---
HPI History of Present Illness Chief Complaint: Back Detail of Chief Complaint: Back pain post surgery. Informant: patient Onset/Context/Timing Onset: Days Context: Gradual Onset Timing: Continuous Quality: Sharp and Aching Location: Lumbar Current Severity: Moderate Maximum Severity: Moderate Worsened by: improves with Movement Relieved by: Nothing Associated Symptoms Associated Symptoms: Negative for Numbness, Tingling, Radiation to Right Leg, Radiation to Left Leg, Fever, Abdominal Pain, Dysuria, Unable to Ambulate, Unable to Transfer, Urinary Retention, Urinary Incontinence, Constipation and Fecal Incontinence Narrative Narrative: 56-year-old female had back surgery and fusion of the lumbar spine in September by Dr. Medellin the orthopedic mis specialist. She was seen in emergency room 2 days ago at that time had elevated sedimentation rate and on the and MRI concerning for possible osteomyelitis of the lumbar spine. They had planned on admitting her 2 days ago when she was in the emergency department she signed out AGAINST MEDICAL ADVICE. She returns today due to increasing pain. Denies any leg weakness. No bowel or bladder incontinence. Prior similar symptoms: No Recent Illness/Hospitalization: No PFSH PFSH Medical History Anxiety Arthritis Asthma Back pain Back pain Cardiology follow-up encounter Chronic neck and back pain COPD (chronic obstructive pulmonary disease) Coronary artery calcification seen on CAT scan Depression Diabetes Dietary restriction Difficulty balancing Essential hypertension Gastric reflux High cholesterol History of arthritis History of echocardiogram History of edema History of pain when walking History of renal disease History of stomach ulcers History of stress test Hyperlipidemia Hypertension Injury of head and neck Insulin dependent diabetes mellitus Knee pain Lumbar stenosis Migraine headache Obesity Shortness of breath on exertion Shoulder pain Sleep apnea Smoker Strain of muscle, fascia and tendon of pelvis, initial encounter Strain of right hip and thigh Strain of right inguinal region Strain of unspecified muscles, fascia and tendons at thigh level, right thigh, initial encounter Syncope Thyroid disease Type 2 diabetes mellitus Walker as ambulation aid Wears glasses Wears hearing aid Home Medications insulin glargine 100 unit/mL (3 mL) subcutaneous pen 42 unit SC DAILY 11/03/20 [History Last Taken 12/23/21] albuterol sulfate 90 mcg/actuation aerosol inhaler 2 puff INHALATION Q6H PRN 1 [History Last Taken 11/26/21] atorvastatin 80 mg tablet 80 mg PO QHS 06/14/21 [History Last Taken 12/23/21] budesonide-formoterol HFA 160 mcg-4.5 mcg/actuation aerosol inhaler 2 puff INHALATION BID 06/14/21 [History Last Taken 12/23/21] lisinopril 20 mg-hydrochlorothiazide 25 mg tablet 1 tab PO BID 06/14/21 [History Last Taken 12/23/21] pantoprazole 40 mg tablet,delayed release 40 mg PO DAILY 06/14/21 [History Last Taken 12/23/21] tizanidine 4 mg capsule 4 mg PO BID PRN 06/14/21 [History Last Taken 11/27/21] amitriptyline 100 mg PO QHS 11/27/21 [History Last Taken 12/23/21] ipratropium-albuterol 3 ml INHALATION 4X/DAY PRN 11/27/21 [History Last Taken 11/25/21] loratadine 10 mg PO DAILY 11/27/21 [History Last Taken 12/23/21] gabapentin 400 mg PO TIDCM 30 Days #90 cap 11/30/21 [Rx Last Taken 12/23/21] insulin lispro [Humalog KwikPen Insulin] See Protocol SUBCUT ACHS #0 ml 11/30/21 [Rx Last Taken Unknown] oxycodone 5 mg PO Q6H PRN 5 Days #30 tab 11/30/21 [Rx Last Taken 12/23/21] sennosides-docusate sodium [Stool Softener-Stimulant Laxat] 2 tab PO BID PRN PRN #0 tab 11/30/21 [Rx Last Taken Unknown] levofloxacin 750 mg PO DAILY #7 tab 12/24/21 [Rx Last Taken Unknown] sulfamethoxazole-trimethoprim 1 tab PO BID #14 tablet 12/24/21 [Rx Last Taken Unknown] Allergy/AdvReac Type Severity Reaction Status Date / Time duloxetine [From Cymbalta] Allergy Unknown Verified 12/26/21 13:23 Penicillins Allergy NEEDS Verified 12/26/21 13:23 FOLLOW-UP pregabalin [From Lyrica] Allergy Unknown Verified 12/26/21 13:23 NSAIDS (Non-Steroidal AdvReac Upset Verified 12/26/21 13:23 Anti-Inflamma Stomach Family History Other Cancer Diabetes Surgical History History of ankle surgery History of History of carpal tunnel release History of hysterectomy History of open reduction and internal fixation (ORIF) procedure History of partial thyroidectomy Social History Smoking Status: Current every day smoker tobacco type: cigarettes alcohol intake: never ROS ROS ED ROS Narrative Back pain. Review of Systems ROS Unobtainable: Denies due to encephalopathy Constitutional Constitutional ED: Denies fever(s) Eyes Eyes: Denies change in vision ENT ENT ED: Denies ear pain Cardiovascular Cardiovascular: Denies chest pain Respiratory/Chest Respiratory/Chest: Denies dyspnea Gastrointestinal Gastrointestinal: Denies abdominal pain, diarrhea, nausea or vomiting Genitourinary Genitourinary ED: Denies dysuria Musculoskeletal Musculoskeletal: Reports back pain; Denies myalgias Integumentary Denies rash Neurologic Neurologic: Denies headache(s) Psychiatric Psychiatric: Denies depression Endocrine Endocrinology: Denies polyuria Hematologic/Lymphatic Hematologic/Lymphatic: Denies easy bruising Allergic/Immunologic Allergic/Immunologic ED: Denies urticaria EXAM Physical Exam Narrative Exam Narrative: This 1-year-old female no acute distress vital signs stable afebrile. Initial blood pressure elevated at 160/110. That will be reevaluated. This may be secondary to pain. H EENT exam unremarkable. Neck nontender. Lungs clear to auscultation. Heart regular rhythm no murmur. Abdomen obese but soft nontender normal bowel sounds no peritoneal signs. Moving all 4 extremities. 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 Normal dorsi plantarflexion. No cauda equina. Back she has a well-healed surgical incision vertical of the lumbar spine. There is no redness, warmth discharge or drainage. There is tenderness about the site. There is no cellulitis. Neurologically she is awake and alert with no focal motor deficits. Const Vital Signs: 12/26/21 13:19 12/26/21 13:22 Temperature 96.9 F L 96.9 F L Temperature Source Temporal Temporal Pulse Rate 119 H 119 H Respiratory Rate 18 18 Blood Pressure 160/110 H 160/110 H Blood Pressure Mean 126 126 Pulse Ox 97 97 Oxygen Delivery Method Room Air Room Air Positive well nourished, well developed and obese; Negative for cachectic, contractures or unkempt General Appearance ED: well developed and NAD; Negative for unkempt, cachectic, contractures or pallor Nutritional Appearance: obese; Negative for cachectic HEENT Reports moist mucous membranes Negative for trauma or tenderness Eyes PERRL and EOMs intact bilaterally General Eye ED: Negative for pale conjunctiva or scleral icterus Neck no lymphadenopathy, supple and no JVD General: Negative for tenderness Resp normal respiratory effort and clear to auscultation bilaterally Effort and Inspection: Negative for other Auscultation: Negative for rales or rhonchi Cardio regular rate, regular rhythm, S1 normal heart sound, S2 normal heart sound and no murmurs GI normal to inspection, nondistended, normoactive bowel sounds, soft to palpation, non-tender, non-distended and no masses Palpation: Negative for tender, guarding or rebound tenderness present Back/Spine Negative for normal to inspection or no thoracic nor lumbar tenderness Back/Spine Narrative: Incision of the lumbar spine dry and clean. No discharge or redness. Well-healing. There is tenderness around the site however. General Back: Negative for CVA tenderness Cervical Spine: Negative for paracervical muscle tenderness Thoracic Spine / Upper Back: Negative for paraspinal muscle tenderness Extremity normal to inspection General Extremety ED: Negative for edema or tenderness General Extremity: Negative for edema Neuro oriented x3 Sensorium / Orientation: alert; Negative for confused, lethargic or stuporous Motor Exam: strength 5/5 throughout Psych mental status grossly normal Appearance: Negative for unkempt Attitude: No agitated Mood & Affect: Negative for depressed or tearful Skin no rashes or lesions noted and no wounds General Skin Exam: Negative for jaundice or pallor Rashes: No rashes noted Trauma: Negative for abrasion or other Wounds: Negative for wounds noted MDM MDM MDM Narrative Medical decision making narrative: 56-year-old status post back surgery in September with a lumbar fusion. Complaining of increasing pain. Signed out AMA 2 days ago but weak because they were going to admit her for possible lumbar osteomyelitis. She did not want to stay. Labs were done at that time which showed an elevated sedimentation rate. She will be started on IV vancomycin. I have her orthopedic surgeon on page. I spoke to the patient's spine surgeon Dr. Medellin. She will be started on IV vancomycin. Hospitalist will admit the patient. Dr. Medellin plans on potentially doing a bone biopsy of the spine tomorrow to get a better idea of exactly what they are dealing with. He is also planning on getting an ID consultation. Discharge Plan Dx/Rx/DC Orders Clinical Impression: Back pain, Type 2 diabetes mellitus, Osteomyelitis of lumbar spine Disposition Disposition: Acute Care [facility]
[2021-12-26] MEDS: Ondansetron 4 MG/2 ML Vial IV (14:03)
[2021-12-26] MEDS: HYDROmorphone 1 MG/ML Syringe IV (14:03)
--- NOTE | 2021-12-26 14:37 | HP.PCM.HOS_ITS ---
Documented by User: Bebo SZYMANSKI 12/26/21 15:03 HPI - General HPI Narrative MILY CHILDRESS is a 56-year-old female who presents to the ED at [facility] on 12/26/2021 with a chief complaint of progressively worsening back pain. Patient is known to Dr. Medellin who performed L4-5 posterior lumbar interbody fusion in September 2021. Patient has been following with Dr. Padilla since and has been reporting progressively worsening back pain that is becoming worse despite pain regimen. Lumbar spine MRI was obtained on 12/21/2021 as an outpatient which demonstrated diffuse enhancement of L3, L4 and L5 concerning for osteomyelitis. Patient was immediately referred to the ED for admission and ministration of antibiotics. Patient declined admission at that time and said she needed time to consider this. Patient represents today and is ready for admission. Patient reports excruciating lumbar back pain which she reports at about a 9 out of 10. Patient also reports radicular pain to the legs b ilaterally. Denies any weakness or numbness. Denies any infectious symptoms. No work-up obtained in the ED. [facility] Medical History Anxiety Arthritis Asthma Back pain Back pain Cardiology follow-up encounter Chronic neck and back pain COPD (chronic obstructive pulmonary disease) Coronary artery calcification seen on CAT scan Depression Diabetes Dietary restriction Difficulty balancing Essential hypertension Gastric reflux High cholesterol History of arthritis History of echocardiogram History of edema History of pain when walking History of renal disease History of stomach ulcers History of stress test Hyperlipidemia Hypertension Injury of head and neck Insulin dependent diabetes mellitus Knee pain Lumbar stenosis Migraine headache Obesity Shortness of breath on exertion Shoulder pain Sleep apnea Smoker Strain of muscle, fascia and tendon of pelvis, initial encounter Strain of right hip and thigh Strain of right inguinal region Strain of unspecified muscles, fascia and tendons at thigh level, right thigh, initial encounter Syncope Thyroid disease Type 2 diabetes mellitus Walker as ambulation aid Wears glasses Wears hearing aid Home Medications insulin glargine 100 unit/mL (3 mL) subcutaneous pen 42 unit SC DAILY 11/03/20 [History Last Taken 12/25/21] albuterol sulfate 90 mcg/actuation aerosol inhaler 2 puff INHALATION Q6H PRN 06/14/21 [History Last Taken 12/25/21] atorvastatin 80 mg tablet 80 mg PO QHS 06/14/21 [History Last Taken 12/23/21] budesonide-formoterol HFA 160 mcg-4.5 mcg/actuation aerosol inhaler 2 puff INHALATION BID 06/14/21 [History Last Taken 12/25/21] lisinopril 20 mg-hydrochlorothiazide 25 mg tablet 1 tab PO BID 06/14/21 [History Last Taken 12/25/21] pantoprazole 40 mg tablet,delayed release 40 mg PO DAILY 06/14/21 [History Last Taken 12/25/21] tizanidine 4 mg capsule 4 mg PO BID PRN 06/14/21 [History Last Taken 12/18/21] amitriptyline 100 mg PO QHS 11/27/21 [History Last Taken 12/25/21] ipratropium-albuterol 3 ml INHALATION 4X/DAY PRN 11/27/21 [History Last Taken 11/25/21] loratadine 10 mg PO DAILY 11/27/21 [History Last Taken 12/25/21] oxycodone 5 mg PO Q6H PRN 5 Days #30 tab 11/30/21 [Rx Last Taken 12/25/21] sennosides-docusate sodium [Stool Softener-Stimulant Laxat] 2 tab PO BID PRN PRN #0 tab 11/30/21 [Rx Last Taken Unknown] gabapentin 400 mg PO TIDCM 12/26/21 [History Last Taken Unknown] insulin lispro [Humalog KwikPen Insulin] See Protocol SUBCUT ACHS PRN 12/26/21 [History Last Taken Unknown] levofloxacin 750 mg PO DAILY 12/26/21 [History Last Taken 12/25/21] sulfamethoxazole-trimethoprim 1 tab PO BID 12/26/21 [History Last Taken 12/25/21] Allergy/AdvReac Type Severity Reaction Status Date / Time duloxetine [From Cymbalta] Allergy Unknown Verified 12/26/21 13:23 Penicillins Allergy NEEDS Verified 12/26/21 13:23 FOLLOW-UP pregabalin [From Lyrica] Allergy Unknown Verified 12/26/21 13:23 NSAIDS (Non-Steroidal AdvReac Upset Verified 12/26/21 13:23 Anti-Inflamma Stomach Family History Other Cancer Diabetes Surgical History History of ankle surgery History of History of carpal tunnel release History of hysterectomy History of open reduction and internal fixation (ORIF) procedure History of partial thyroidectomy Social History Smoking Status: Current every day smoker tobacco type: cigarettes alcohol intake: never ROS Constitutional Constitutional: Denies anorexia, change in weight, chills, fatigue, fever(s), malaise, night sweats, weakness or other Eyes Eyes: Denies blurry vision, change in eye color, change in vision, discharge from eye(s), double vision, erythema, eye pain, loss of vision or other ENT HEENT: Denies abnormal hearing, dysphagia, ear pain, epistaxis, headache(s), hearing loss, nasal congestion, nasal discharge, post nasal drip, sinus pressure, sore throat or other Cardiovascular Cardiovascular: Denies chest pain, claudication, dyspnea on exertion, edema, lightheadedness, orthopnea, palpitations, paroxysmal nocturnal dyspnea, rapid heart rate, syncope or other Respiratory/Chest Respiratory/Chest: Denies cough, dyspnea, excessive phlegm production, hemoptysis, productive cough, shortness of breath at rest, shortness of breath with exertion, wheezing or other Gastrointestinal Gastrointestinal: Denies abdominal pain, coffee ground emesis, constipation, diarrhea, dyspepsia, hematemesis, hematochezia, loose stools, melena, nausea, vomiting or other Genitourinary Genitourinary: Denies burning urination, difficulty urinating, dysuria, hematuria, nocturia, urinary frequency, urinary hesitancy, urinary incontinence, urinary urgency or other Musculoskeletal Musculoskeletal: Reports back pain, joint pain and joint stiffness Neurologic Neurologic: Denies abnormal gait, abnormal speech, confusion, disequilibrium, dizziness, focal weakness, headache(s), numbness, paresthesias, seizure-like activity, seizures, syncope, tingling, tremor(s) or other Psychiatric Psychiatric: Denies anxiety, depression, homicidal ideation, suicidal ideation or other Endocrine Endocrinology: Denies change in body appearance, cold intolerance, excessive sweating, heat intolerance, polydipsia, polyuria or other Hematologic/Lymphatic Hematologic/Lymphatic: Denies anemia, easy bleeding, easy bruising, lym phadenopathy or other Vital Signs Vital Signs Vital Signs: 12/26/21 13:19 12/26/21 13:22 Temperature 96.9 F L 96.9 F L Temperature Source Temporal Temporal Pulse Rate 119 H 119 H Respiratory Rate 18 18 Blood Pressure 160/110 H 160/110 H Blood Pressure Mean 126 126 Pulse Ox 97 97 Oxygen Delivery Method Room Air Room Air Weight Weight: 160 lb Body Mass Index (BMI) 30.2 Physical Exam Const alert and oriented x3 HEENT normocephalic, head/scalp atraumatic and hearing grossly normal bilaterally Eyes PERRL, EOMs intact bilaterally and conjunctivae normal Neck no lymphadenopathy, supple and no JVD Resp normal respiratory effort, no retractions and no use of accessory muscles Cardio no murmurs and no JVD Rate: tachycardic GI normal to inspection, nondistended, normoactive bowel sounds and soft to palpation Extremity normal to inspection Skin no rashes or lesions noted Neuro CN's II-XII intact bilaterally Psych Mood & Affect: anxious Results Lab / Micro Data Result Diagrams: 12/26/21 15:11 12/26/21 15:11 Assessment & Plan Assessment/Plan (1) Osteomyelitis of lumbar spine: (2) Back pain: PLAN: Patient is a 56-year-old female who presents to the ED at [facility] on 12/26/2021 with a chief complaint of progressive worsening back pain. 1) osteomyelitis Known to Dr. Medellin, status post L4-5 posterior lumbar interbody fusion in September 2021. MRI obtained on 12/21 demonstrated findings concerning for osteomyelitis at L3, L4 and L5. Presented on 12/24, but denied admission at that time. Plan; admit to [facility], consult orthopedics, consult ID, initiate vancomycin, obtain bone biopsy in a.m., CBC and CMP in a.m., PT/OT eval ordered, case management consult ordered. At the time of this dictation, CBC and CMP had not been obtained. Will order and evaluate appropriately. At the time of this dictation, medication reconciliation not completed. When medication reconciliation is complete will continue or hold appropriate medications. Patient seen by Bebo Souza PA-C, under the supervision of Dr. Bradley. Time spent on patient care: 25 minutes. Documented by User: Dr. Stepan Bradley DO 12/26/21 16:14 HPI - General General Date of Admission: 12/26/21 PFSH Medical History Anxiety Arthritis Asthma Back pain Back pain Cardiology follow-up encounter Chronic neck and back pain COPD (chronic obstructive pulmonary disease) Coronary artery calcification seen on CAT scan Depression Diabetes Dietary restriction Difficulty balancing Essential hypertension Gastric reflux High cholesterol History of arthritis History of echocardiogram History of edema History of pain when walking History of renal disease History of stomach ulcers History of stress test Hyperlipidemia Hypertension Injury of head and neck Insulin dependent diabetes mellitus Knee pain Lumbar stenosis Migraine headache Obesity Shortness of breath on exertion Shoulder pain Sleep apnea Smoker Strain of muscle, fascia and tendon of pelvis, initial encounter Strain of right hip and thigh Strain of right inguinal region Strain of unspecified muscles, fascia and tendons at thigh level, right thigh, initial encounter Syncope Thyroid disease Type 2 diabetes mellitus Walker as ambulation aid Wears glasses Wears hearing aid Home Medications insulin glargine 100 unit/mL (3 mL) subcutaneous pen 42 unit SC DAILY 11/03/20 [History Last Taken 12/25/21] albuterol sulfate 90 mcg/actuation aerosol inhaler 2 puff INHALATION Q6H PRN 06/14/21 [History Last Taken 12/25/21] atorvastatin 80 mg tablet 80 mg PO QHS 06/14/21 [History Last Taken 12/23/21] budesonide-formoterol HFA 160 mcg-4.5 mcg/actuation aerosol inhaler 2 puff INHALATION BID 06/14/21 [History Last Taken 12/25/21] lisinopril 20 mg-hydrochlorothiazide 25 mg tablet 1 tab PO BID 06/14/21 [History Last Taken 12/25/21] pantoprazole 40 mg tablet,delayed release 40 mg PO DAILY 06/14/21 [History Last Taken 12/25/21] tizanidine 4 mg capsule 4 mg PO BID PRN 06/14/21 [History Last Taken 12/18/21] amitriptyline 100 mg PO QHS 11/27/21 [History Last Taken 12/25/21] ipratropium-albuterol 3 ml INHALATION 4X/DAY PRN 11/27/21 [History Last Taken 11/25/21] loratadine 10 mg PO DAILY 11/27/21 [History Last Taken 12/25/21] oxycodone 5 mg PO Q6H PRN 5 Days #30 tab 11/30/21 [Rx Last Taken 12/25/21] sennosides-docusate sodium [Stool Softener-Stimulant Laxat] 2 tab PO BID PRN PRN #0 tab 11/30/21 [Rx Last Taken Unknown] gabapentin 400 mg PO TIDCM 12/26/21 [History Last Taken Unknown] insulin lispro [Humalog KwikPen Insulin] See Protocol SUBCUT ACHS PRN 12/26/21 [History Last Taken Unknown] levofloxacin 750 mg PO DAILY 12/26/21 [History Last Taken 12/25/21] sulfamethoxazole-trimethoprim 1 tab PO BID 12/26/21 [History Last Taken 12/07 05/30] Allergy/AdvReac Type Severity Reaction Status Date / Time duloxetine [From Cymbalta] Allergy Unknown Verified 12/26/21 13:23 Penicillins Allergy NEEDS Verified 12/26/21 13:23 FOLLOW-UP pregabalin [From Lyrica] Allergy Unknown Verified 12/26/21 13:23 NSAIDS (Non-Steroidal AdvReac Upset Verified 12/26/21 13:23 Anti-Inflamma Stomach Family History Other Cancer Diabetes Surgical History History of ankle surgery History of History of carpal tunnel release History of hysterectomy History of open reduction and internal fixation (ORIF) procedure History of partial thyroidectomy Social History Smoking Status: Current every day smoker tobacco type: cigarettes alcohol intake: never Results Lab / Micro Data Result Diagrams: 12/26/21 15:11 12/26/21 15:11 Charges/Coding Addendum Addendum: Seen and examined in [facility] of Bebo Souza today, she returned to the emergency room today with complaints of ongoing back pain and pain radiating i nto her hips and legs. Patient had a lumbar fusion performed in September 2021, she continues to have low back pain and underwent an MRI on 12/21/2021 which indicated possible osteomyelitis of the lumbar spine. She was told on that day to come into the ER for evaluation but declined and then showed up on 12/24/2021 for evaluation in the ER, at that time, she was advised to come in the hospital and be admitted for osteomyelitis but she declined on that date stating that she wanted to go home and think about it. Patient shows up again today for reevaluation of ongoing back pain. Patient denies any lower extremity weakness or paresthesias. On examination she appeared in good health and spirits, she does not appear to be in any distress. Vital signs as documented. Skin warm and dry and without overt rashes. Neck without JVD, thyroid appears normal, trachea is midline, neck is supple. Lungs clear, normal air movement was noted. Heart exam notable for regular rhythm, normal sounds and absence of murmurs, rubs or gallops. Abdomen unremarkable and without evidence of organomegaly, masses, or abdominal aortic enlargement, bowel sounds are present in all 4 quadrants, no abdominal tenderne ss was noted. Extremities nonedematous, no cyanosis was noted, no clubbing was noted. Neuro: Cranial nerves II through XII are grossly intact, no focal motor deficits were noted, sensation to light touch and pinprick is intact, motor exam 5/5 throughout. Psych: Patient is alert and oriented x3, she does not appear anxious or depressed, she does not appear agitated. Impression: #1 osteomyelitis of the lumbar spine-patient will be admitted to [facility] 3, she will be seen by infectious diseases and orthopedic surgery, it is planned that she will undergo a bone biopsy tomorrow morning of her lumbar spine to verify that she has osteomyelitis. At this time according to the emergency room physician today, orthopedic surgery stated that they wanted the patient to be kept off antibiotics at this time-she had been discharged on 12/24/2021 from the ER however on Levaquin and Bactrim which she has been taking at home. She will not receive any antibiotics for now, she will be seen in consultation by infectious diseases. #2 degenerative joint disease of the lumbar spine-again orthopedic surgery is participating in her care, she will be seen by PT and OT #3 essential hypertension-patient will remain on her current medications #4 hyperlipidemia-patient will remain on her current medication #5 type 2 diabetes-patient's blood sugars will be monitored by fingerstick blood sugars and she will be given sliding scale insulin, she will remain on her home long-acting insulin. I have reviewed Bebo Souza's history and physical including his medical assessment and plan of care and with the above additions endorse it. Total clinical time spent by myself addressing the patient's medical problems, reviewing the patient's medical record/data, and collaborating with the patient's care team: 45 minutes Visit Charges Inpatient E&M: [id number] Init Hosp L3
[2021-12-26 14:55] VITALS: BP 144/93; PULSE 90; RESP 16; TEMP 36.3; O2SAT 96
[2021-12-26 15:19] LABS: Absolute Lymphocyte Count 1.52 X10^3/uL (0.83-4.51); Absolute Neutrophil Count 7.6 X10^3/uL (2.0-7.7); Basophil# 0.01 X10^3/uL; Basophil% 0.1 % (0-1); Eosinophil# 0.04 X10^3/uL; Eosinophils% 0.4 % (0-5); Hemoglobin 10.6 g/dL (12.0-15.0); Lymphocyte # 1.52 X10^3/ul (0.83-4.51); Lymphocyte % 15.5 % (19-41); Mean Corp Hgb Conc 30.3 g/dL (32-36); Mean Corpuscular Hgb 27.4 pg (27.0-32.0); Mean Corpuscular Volume 90.4 fL (81-99); Mean Platelet Vol. 10.1 fl (6.2-12.0); Monocyte# 0.54 X10^3/uL; Monocyte% 5.5 % (0-10); NRBC Flagged by Analyzer 0 % (0-5); Neutrophil # 7.63 X10^3/uL (2.7-7.7); Neutrophil % 78.1 % (47-70); Platelet Count 474 K/mm3 (150-450); RBC Distribution Width CV 14.7 % (11.6-14.6); Red Blood Count 3.87 M/mm3 (4.2-5.4); White Blood Count 9.8 K/mm3 (4.4-11.0)
[2021-12-26 15:41] LABS: ALB/GLOB Ratio 0.5 RATIO (0.9-2.4); AST(SGOT) 11 U/L (15-37); Alanine Aminotransfer ALT/SGPT 10 U/L (13-56); Albumin, Serum 2.5 g/dL (3.2-5.0); Alkaline Phosphatase 116 U/L (45-117); Anion Gap 8 (5-15); BUN 14 mg/dL (7-18); BUN/Creat Ratio 15.5 RATIO (10-20); Calcium,Total 9.9 mg/dL (8.5-10.1); Chloride 106 mmol/L (98-107); EST Glomerular Filtration Rate 69 mL/min (>60); Est Glom Filt Rate - Afr Amer 83 mL/min (>60); Estimated Creatinine Clearance 52.04 ml/min; Globulin 4.7 g/dL (2.2-4.2); Glucose 166 mg/dL (74-106); Potassium 4.3 mmol/L (3.5-5.1); Protein, Total 7.2 g/dL (6.4-8.2); Sodium Level 135 mmol/L (136-145)
[2021-12-26 15:42] VITALS: BMI 29.5
[2021-12-26 15:45] VITALS: BP 140/93; PULSE 77; RESP 16; TEMP 36.3; O2SAT 98
[2021-12-26] MEDS: oxyCODONE 5 MG Tablet PO (16:21)
[2021-12-26] MEDS: Gabapentin 400 MG Capsule PO (16:27)
[2021-12-26 16:35] LABS: Bedside Glucose 145 mg/dL (74-106)
--- NOTE | 2021-12-26 17:29 | CON.PCM.OR_ITS ---
HPI Consult Data Date of Consult: 12/26/21 HPI Narrative HPI Narrative: MILY CHILDRESS, is a 56 F who presents with persistent low back pain occasionally radiating to the bilateral lower extremities as well as paresthesias in the bilateral toes. She is a patient of mine whom I performed an L4-5 fusion on on 09/27/2021. She did have persistent complaints of low back pain ever since her surgery. She was followed by me in clinic. I did order a lumbar MRI which was performed on 12/21/21 which showed edema and L3, L4, and L5 concerning for osteomyelitis. I did immediately contact the patient that day and asked her to return to the ER for admission. However the patient did not present to the ER until 12/24/2021. I did speak with the emergency department and asked them to perform labs and blood cultures. At that time her white count was not elevated, but her ESR and CRP were elevated. Blood cultures were performed. I recommended that she be admitted and infectious disease be consulted. However the patient left the ER AMA. She also did not show up for her clinic appointment with me this week. I again contacted the patient and encouraged her to present to the ER for admission and work-up which she did today. She is still complaining of significant pain in the lumbar region occasionally radiating to the bilateral lower extremities as well as tingling in the toes of the bilateral feet. She denies any constitutional symptoms including fever chills nausea vomiting. She denies any headaches. She denies any other acute numbness tingling weakness or changes in bowel or bladder function. I did speak with the emergency physician as well as the hospitalist and she will be admitted. I spoke with infectious disease and they agree to see the patient. I plan to take the patient to the OR tomorrow for L3 bone biopsy and culture. Currently the patient is lying in bed resting comfortably eating dinner. She does have some complaints of low back pain which is manageable at this time. She also complains of tingling in the toes of the bilateral feet. She denies any other complaints at this time. [facility] Medical History Anxiety Arthritis Asthma Back pain Back pain Cardiology follow-up encounter Chronic neck and back pain COPD (chronic obstructive pulmonary disease) Coronary artery calcification seen on CAT scan Depression Diabetes Dietary restriction Difficulty balancing Essential hypertension Gastric reflux High cholesterol History of arthritis History of echocardiogram History of edema History of pain when walking History of renal disease History of stomach ulcers History of stress test Hyperlipidemia Hypertension Injury of head and neck Insulin dependent diabetes mellitus Knee pain Lumbar stenosis Migraine headache Obesity Shortness of breath on exertion Shoulder pain Sleep apnea Smoker Strain of muscle, fascia and tendon of pelvis, initial encounter Strain of right hip and thigh Strain of right inguinal region Strain of unspecified muscles, fascia and tendons at thigh level, right thigh, initial encounter Syncope Thyroid disease Type 2 diabetes mellitus Walker as ambulation aid Wears glasses Wears hearing aid Home Medications insulin glargine 100 unit/mL (3 mL) subcutaneous pen 42 unit SC DAILY 11/03/20 [History Last Taken 12/25/21] albuterol sulfate 90 mcg/actuation aerosol inhaler 2 puff INHALATION Q6H PRN 06/14/21 [History Last Taken 12/25/21] atorvastatin 80 mg tablet 80 mg PO QHS 06/14/21 [History Last Taken 12/23/21] budesonide-formoterol HFA 160 mcg-4.5 mcg/actuation aerosol inhaler 2 puff INHALATION BID 06/14/21 [History Last Taken 12/25/21] lisinopril 20 mg-hydrochlorothiazide 25 mg tablet 1 tab PO BID 06/14/21 [History Last Taken 12/25/21] pantoprazole 40 mg tablet,delayed release 40 mg PO DAILY 06/14/21 [History Last Taken 12/25/21] tizanidine 4 mg capsule 4 mg PO BID PRN 06/14/21 [History Last Taken 12/18/21] amitriptyline 100 mg PO QHS 11/27/21 [History Last Taken 12/25/21] ipratropium-albuterol 3 ml INHALATION 4X/DAY PRN 11/27/21 [History Last Taken 11/25/21] loratadine 10 mg PO DAILY 11/27/21 [History Last Taken 12/25/21] oxycodone 5 mg PO Q6H PRN 5 Days #30 tab 11/30/21 [Rx Last Taken 12/25/21] sennosides-docusate sodium [Stool Softener-Stimulant Laxat] 2 tab PO BID PRN PRN #0 tab 11/30/21 [Rx Last Taken Unknown] gabapentin 400 mg PO TIDCM 12/26/21 [History Last Taken Unknown] insulin lispro [Humalog KwikPen Insulin] See Protocol SUBCUT ACHS PRN 12/26/21 [History Last Taken Unknown] levofloxacin 750 mg PO DAILY 12/26/21 [History Last Taken 12/25/21] sulfamethoxazole-trimethoprim 1 tab PO BID 12/26/21 [History Last Taken 12/25/21] Allergy/AdvReac Type Severity Reaction Status Date / Time duloxetine [From Cymbalta] Allergy Unknown Verified 12/26/21 13:23 Penicillins Allergy NEEDS Verified 12/26/21 13:23 FOLLOW-UP pregabalin [From Lyrica] Allergy Unknown Verified 12/26/21 13:23 NSAIDS (Non-Steroidal AdvReac Upset Verified 12/26/21 13:23 Anti-Inflamma Stomach Family History Other Cancer Diabetes Surgical History History of ankle surgery History of History of carpal tunnel release History of hysterectomy History of open reduction and internal fixation (ORIF) procedure History of partial thyroidectomy Social History Smoking Status: Current every day smoker tobacco type: cigarettes alcohol intake: never Vital Signs Vital Signs Vital Signs: 12/26/21 13:19 12/26/21 13:22 12/26/21 14:55 Temperature 96.9 F L 96.9 F L 97.4 F L Temperature Source Temporal Temporal Temporal Pulse Rate 119 H 119 H 90 Respiratory Rate 18 18 16 Respiratory Effort Respiratory Depth Respiratory Pattern Blood Pressure 160/110 H 160/110 H 144/93 H Blood Pressure Mean 126 126 110 Blood Pressure Source Blood Pressure Position Blood Pressure Location Pulse Ox 97 97 96 Oxygen Delivery Method Room Air Room Air Room Air 12/26/21 15:45 12/26/21 16:34 Temperature 97.3 F L Temperature Source Temporal Pulse Rate 77 Respiratory Rate 16 Respiratory Effort Normal Non-Labored Respiratory Depth Normal Respiratory Pattern Irregular Blood Pressure 140/93 H Blood Pressure Mean 108 Blood Pressure Source Monitor Blood Pressure Position Semi-Fowlers Blood Pressure Location Left Arm Pulse Ox 98 Oxygen Delivery Method Room Air Room Air Weight Weight: 156 lb 8 oz Body Mass Index (BMI) 29.5 Physical Exam Const alert, oriented x3 and no apparent distress General Appearance: cooperative and comfortable HEENT head/scalp atraumatic Eyes EOMs intact bilaterally and conjunctivae normal Neck full ROM General: normal visual inspection Chest inspection of chest normal Resp normal respiratory effort and normal air movement Effort and Inspection: able to speak in complete sentences Cardio regular rate and peripheral pulses 2+ throughout GI soft to palpation, non-tender and non-distended Back/Spine Back/Spine Narrative: Inspection of the back shows a well-healed 5 inch vertical scar in the lumbar midline. No tenderness erythema drainage or fluctuance Cervical Spine: cervical ROM normal Thoracic Spine / Upper Back: normal to inspection Lumbar Spine / Lower Back: normal to inspection Extremity normal to inspection, full ROM, normal capillary refill, no clubbing, cyanosis or edema and no calf tenderness Skin no rashes or lesions noted General Skin Exam: no breakdown Neuro oriented x3, CN's II-XII intact bilaterally, moves all extremities, no focal motor deficits and deep tendon reflexes 2+ bilaterally Neuro Narrative: The patient reports mildly decreased sensation in the toes of the bilateral feet. Otherwise sensation intact in the bilateral upper and lower extremities Motor Exam: strength 5/5 throughout and muscle tone normal throughout Lab / Micro Data Result Diagrams: 12/26/21 15:11 12/26/21 15:11 Labs: Laboratory Results - last 24 hr 12/26/21 15:11: WBC 9.8, RBC 3.87 L, Hgb 10.6 L, Hct 35.0 L, MCV 90.4, MCH 27.4, MCHC 30.3 L, RDW Std Deviation 49.0 H, RDW Coeff of Yudelka 14.7 H, Plt Count 474 H, MPV 10.1, Immature Gran % (Auto) 0.400, Neut % (Auto) 78.1 H, Lymph % (Auto) 15.5 L, [place] % (Auto) 5.5, Eos % (Auto) 0.4, Baso % (Auto) 0.1, Absolute Neuts (auto) 7.6, Absolute Lymphs (auto) 1.52, Nucleated RBC % 0 12/26/21 15:11: Sodium 135 L, Potassium 4.3, Chloride 106, Carbon Dioxide 21.0, Anion Gap 8, BUN 14, Creatinine 0.90, Estim Creat Clear Calc 52.04, Est GFR (MDRD) Af Amer 83, Est GFR (MDRD) Non-Af 69, BUN/Creatinine Ratio 15.5, Glucose 166 H, Calcium 9.9, Total Bilirubin 0.30, AST 11 L, ALT 10 L, Alkaline Phosphatase 116, Total Protein 7.2, Albumin 2.5 L, Globulin 4.7 H, Albumin/Globulin Ratio 0.5 L 12/26/21 16:25: POC Glucose 145 H Assessment & Plan Assessment/Plan (1) Lumbar spondylosis: (2) Lumbar stenosis: (3) Degenerative disc disease, lumbar: (4) Back pain: PLAN: I had a lengthy discussion with the patient. I reviewed her imaging with her. She does have signs of inflammation and edema in the vertebral bodies of L3, L4, and L5. After discussing the risk benefits and alternatives and answering all of her questions I recommend an L3 bone biopsy. She agrees to proceed. We did discuss the procedure in detail along with expected outcome and recovery. We will perform this procedure tomorrow. We will hold antibiotics until after bone biopsy tissue is obtained and sent for culture. In the meantime I recommend pain control and mobilization as tolerated 2 to 4 mg of morphine IV every 4 hours as needed pain I did speak with infectious disease who agreed to see her and manage antibiotics per culture results N.p.o. after midnight for surgery tomorrow The patient understands and agrees with the treatment plan.
[2021-12-26 19:27] LABS: Thyroid Stim Hormone (TSH) 3.08 uIU/mL (0.358-3.74)
[2021-12-26 20:04] VITALS: BP 145/67; PULSE 85; RESP 18; TEMP 37.1; O2SAT 98
[2021-12-26] MEDS: 0.9% Saline Lock 10 ML Syringe IV (20:10)
[2021-12-26] MEDS: Morphine 2 MG/ML Syringe IV (20:10)
[2021-12-26 22:03] VITALS: BP 152/70; PULSE 77; RESP 18; TEMP 37.1; O2SAT 100
[2021-12-26] MEDS: Insulin Lispro 100 UNIT/ML INSULN.PEN SC (22:05)
[2021-12-26] MEDS: Heparin Injection (Vial) 5,000 UNIT/ML VIAL 5000 UNIT SC (22:06)
[2021-12-26] MEDS: Atorvastatin Calcium 80 MG Tablet PO (22:08)
[2021-12-26] MEDS: Temazepam 15 MG Capsule PO (22:08)
[2021-12-26] MEDS: Amitriptyline 100 MG Tablet PO (22:08)
[2021-12-26] MEDS: Senna/Docusate Sodium 1 Tablet 2 TABLET PO (22:08)
[2021-12-26] MEDS: Lisinopril 20 MG Tablet PO (22:08)
[2021-12-26] MEDS: hydroCHLOROthiazide 25 MG Tablet PO (22:08)
[2021-12-26 22:40] LABS: Bedside Glucose 297 mg/dL (74-106)
[2021-12-27] VITALS (11 sets, daily range): BP systolic 129–156; BP diastolic 70–124; PULSE 62–94; RESP 8–18; TEMP 36.4–37.3; O2SAT 95–100; BMI 29.5
[2021-12-27] MEDS: oxyCODONE 5 MG Tablet PO (00:36)
[2021-12-27 04:28] LABS: Absolute Lymphocyte Count 1.95 X10^3/uL (0.83-4.51); Absolute Neutrophil Count 5.8 X10^3/uL (2.0-7.7); Basophil# 0.02 X10^3/uL; Basophil% 0.2 % (0-1); Eosinophil# 0.12 X10^3/uL; Eosinophils% 1.4 % (0-5); Hematocrit 34.4 % (37-47); Hemoglobin 10.6 g/dL (12.0-15.0); Lymphocyte # 1.95 X10^3/ul (0.83-4.51); Lymphocyte % 22.8 % (19-41); Mean Corp Hgb Conc 30.8 g/dL (32-36); Mean Corpuscular Hgb 27.7 pg (27.0-32.0); Mean Corpuscular Volume 89.8 fL (81-99); Mean Platelet Vol. 9.8 fl (6.2-12.0); Monocyte# 0.63 X10^3/uL; Monocyte% 7.4 % (0-10); NRBC Flagged by Analyzer 0 % (0-5); Neutrophil # 5.81 X10^3/uL (2.7-7.7); Neutrophil % 67.8 % (47-70); Platelet Count 474 K/mm3 (150-450); RBC Distribution Width CV 14.8 % (11.6-14.6); RBC Distribution Width SD 48.5 fl (35.1-43.9); Red Blood Count 3.83 M/mm3 (4.2-5.4); White Blood Count 8.6 K/mm3 (4.4-11.0)
[2021-12-27] MEDS: Morphine 2 MG/ML Syringe IV ×6 (04:42→20:21)
[2021-12-27] MEDS: 0.9% Saline Lock 10 ML Syringe IV ×3 (04:42→20:21)
[2021-12-27 04:56] LABS: Anion Gap 7 (5-15); BUN 16 mg/dL (7-18); BUN/Creat Ratio 19.6 RATIO (10-20); Calcium,Total 9.1 mg/dL (8.5-10.1); Chloride 102 mmol/L (98-107); Creatinine, Serum 0.82 mg/dL (0.55-1.02); EST Glomerular Filtration Rate 77 mL/min (>60); Est Glom Filt Rate - Afr Amer 93 mL/min (>60); Estimated Creatinine Clearance 57.12 ml/min; Glucose 233 mg/dL (74-106); Potassium 4.1 mmol/L (3.5-5.1); Sodium Level 132 mmol/L (136-145)
--- NOTE | 2021-12-27 05:00 | EKG12_ITS ---
Test Reason : AM EKG Blood Pressure : / mmHG Vent. Rate : 085 BPM Atrial Rate : 085 BPM P-R Int : 194 ms QRS Dur : 086 ms QT Int : 388 ms P-R-T Axes : 067 -30 019 degrees QTc Int : 461 ms Normal sinus rhythm Left axis deviation Inferior infarct (cited on or before 27-SEP-2021) Abnormal ECG When compared with ECG of 27-SEP-2021 23:35, No significant change was found Confirmed by ANJANA CRABTREE, YAMILET ([id number]), city editor DIANA HAYES ([id number]) on 12/27/2021 12:54:12 P M Referred By: YARELI Confirmed By:DEVI YEUNG MD
[2021-12-27] MEDS: Insulin Lispro 100 UNIT/ML INSULN.PEN SC ×2 (07:02→22:10)
[2021-12-27 07:05] LABS: Bedside Glucose 225 mg/dL (74-106)
--- NOTE | 2021-12-27 07:29 | PN.HOSP_ITS ---
Subjective Subjective Patient is a 56-year-old lady with history of lumbar fusion surgery in [address] Medellni who presented to the emergency department with back pain. Diagnostic work-up demonstrated elevated ESR as well as MRI findings concerning for osteomyelitis involving the lumbar spine. Antibiotics initiated per protoco l admitted to regular nursing floor with consultation placed to both orthopedic and ID Objective Data Objective Data Vital Signs: Vital Signs Temp Pulse Resp BP Pulse Ox 98.4 F 94 16 151/86 H 98 12/27/21 04:39 12/27/21 04:39 12/27/21 04:39 12/27/21 04:39 12/27/21 04:39 Oxygen Delivery Method Room Air Weight: 70.987 kg Body Mass Index (BMI) 29.5 Intake & Output: Intake and Output for Last 24 Hours 12/25/21 12/26/21 12/27/21 23:59 23:59 23:59 Intake Total 535 / 535 Balance 535 / 535 Lab / Micro Data Result Diagrams: 12/27/21 04:16 12/27/21 04:16 Labs: Laboratory Results - last 24 hr 12/26/21 15:11: WBC 9.8, RBC 3.87 L, Hgb 10.6 L, Hct 35.0 L, MCV 90.4, MCH 27.4, MCHC 30.3 L, RDW Std Deviation 49.0 H, RDW Coeff of Yudelka 14.7 H, Plt Count 474 H, MPV 10.1, Immature Gran % (Auto) 0.400, Neut % (Auto) 78.1 H, Lymph % (Auto) 15.5 L, [place] % (Auto) 5.5, Eos % (Auto) 0.4, Baso % (Auto) 0.1, Absolute Neuts (auto) 7.6, Absolute Lymphs (auto) 1.52, Nucleated RBC % 0 12/26/21 15:11: Sodium 135 L, Potassium 4.3, Chloride 106, Carbon Dioxide 21.0, Anion Gap 8, BUN 14, Creatinine 0.90, Estim Creat Clear Calc 52.04, Est GFR (MDRD) Af Amer 83, Est GFR (MDRD) Non-Af 69, BUN/Creatinine Ratio 15.5, Glucose 166 H, Calcium 9.9, Total Bilirubin 0.30, AST 11 L, ALT 10 L, Alkaline Phospha tase 116, Total Protein 7.2, Albumin 2.5 L, Globulin 4.7 H, Albumin/Globulin Ratio 0.5 L 12/26/21 15:11: TSH 3.08 12/26/21 16:25: POC Glucose 145 H 12/26/21 21:55: POC Glucose 297 H 12/27/21 04:16: WBC 8.6, RBC 3.83 L, Hgb 10.6 L, Hct 34.4 L, MCV 89.8, MCH 27.7, MCHC 30.8 L, RDW Std Deviation 48.5 H, RDW Coeff of Yudelka 14.8 H, Plt Count 474 H, MPV 9.8, Immature Gran % (Auto) 0.400, Neut % (Auto) 67.8, Lymph % (Auto) 22.8, [place] % (Auto) 7.4, Eos % (Auto) 1.4, Baso % (Auto) 0.2, Absolute Neuts (auto) 5.8, Absolute Lymphs (auto) 1.95, Nucleated RBC % 0 12/27/21 04:16: Sodium 132 L, Potassium 4.1, Chloride 102, Carbon Dioxide 23.0, Anion Gap 7, BUN 16, Creatinine 0.82, Estim Creat Clear Calc 57.12, Est GFR (MDRD) Af Amer 93, Est GFR (MDRD) Non-Af 77, BUN/Creatinine Ratio 19.6, Glucose 233 H, Calcium 9.1 12/27/21 06:58: POC Glucose 225 H Micro: Microbiology 12/26/21 22:00 Nasal Secretion SARS-CoV-2 Antigen (Rapid) - Final Physical Exam Narrative GENERAL: cooperative HEENT: Atraumatic; EYES; Anicteric, Normal Conjunctiva NECK; supple, normal thyroid, RESPIRATORY: Diminished to auscultation CARDIOVASCULAR: Regular S1 S2, GI: soft, normoactive bowel sounds, : No Renal angle tenderness; EXTREMITIES: No edema, no clubbing, MUSCULOSKELETAL: no muscle wasting NEURO: Awake; no lateralizing signs. SKIN: No Rash PSYCH; Flat affect Assessment & Plan Assessment/Plan (1) Osteomyelitis of lumbar spine: (2) Back pain: PLAN: Patient is a 56-year-old lady with history of lumbar fusion surgery in [address] Medellin who presented to the emergency department with back pain. Diagnostic work-up demonstrated elevated ESR as well as MRI findings concerning for osteomyelitis involving the lumbar spine. Antibiotics initiated per protocol admitted to regular nursing floor with consultation placed to both orthopedic and ID 1. Osteomyelitis involving the lumbar spine ? Patient started on broad-spectrum antibiotic therapy with Vanco consult placed to ID and orthopedic surgery. Patient scheduled to undergo biopsy 2. 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 Status post lumbar fusion surgery on 09/27/2021 3. Hypertension - Blood pressure controlled, home medications continued with dose adjustment as needed 4. Diabetes mellitus type II -Patient is a long-acting insulin held this a.m. have the dose given in view of patient being n.p.o. for surgery 5. Dyslipidemia -Patient is on statin therapy, continued at home dose 6. Overweight with BMI of 29.6 ? Weight loss advised 7. Diabetic polyneuropathy ? Patient is on gabapentin did continue 8. Tobacco dependence - Counseled on cessation, offered nicotine patch for tobacco cravings 9. COPD ? Did continue patient home aerosol and bronchodilator treatment regimen 10. DVT prophylaxis ?Bilateral SCDs for now with plans to initiate low molecular weight heparin following patient surgical procedure Charges/Coding Visit Charges Inpatient E&M: 87974 Subs Hosp L3
[2021-12-27 07:48] LABS: Hemoglobin A1c 9.1 % (3.8-5.6)
--- NOTE | 2021-12-27 10:30 | CASEMGMT ---
RN CM Face to Face with patient for initial transition planning/care coordination assessment. RN CM introduced self and role at [facility]. Patient lying in bed, alert and oriented. Patient willing to participate in assessment and is able to answer all questions appropriately. Care providers, pharmacy, and demographics verified. Patient wishes to discharge home will monitor for HHC vs SNF pending possible IV ATBs and progress with therapy. Patient states she has no further needs or concerns at this time. CM to follow for discharge planning needs that may arise. PCP: Gris Fofana PROFESSOR OF PHYSICAL EDUCATION Specialists: surgeon Vignesh Preferred Pharmacy: [facility] Insurance: [facility] Prescription Benefit: yes Living Will/HPOA: none LNOK: mohter, daughter Living Arrangements: Patient lives with alone in a first floor apartment with 2 steps to enter. Patient states she is independent at home. Transportation: public, mother DME/HHC: Patient states she has rollator at home. Patient states she has previously been to [facility]. Disposition Plan: HHC vs SNF pending course of treatment and progress with therapy. Eden LIN, RN, CM
[2021-12-27] MEDS: Pantoprazole Sodium 40 MG Tablet PO (11:15)
[2021-12-27] MEDS: hydroCHLOROthiazide 25 MG Tablet PO ×2 (11:15→22:08)
[2021-12-27] MEDS: Lisinopril 20 MG Tablet PO ×2 (11:15→22:07)
[2021-12-27 11:25] LABS: Bedside Glucose 255 mg/dL (74-106)
[2021-12-27] MEDS: Insulin Glargine-YFGN 100 UNIT/ML Pen 15 UNIT SC (11:45)
[2021-12-27] MEDS: Albuterol 2.5 MG/3 ML VIAL.NEB. INHALATION (13:31)
--- NOTE | 2021-12-27 14:37 | PCM.CONS.GEN ---
Assessment & Plan Assessment/Plan (1) Osteomyelitis of lumbar spine: PLAN: sp L4-[address] Medellin on 09/27/21. MRI now shows osteo and possible phlegmon. Took po bactrim and levaquin on 12/25, given one dose of iv vanc last night. Biopsy planned for today. Will order vanc/cefepime to start afterwards. Will follow, thank you. Unvaccinated for covid, not interested in the shot. HPI Consult Data Date of Consult: 12/27/21 HPI Narrative HPI Narrative: MILY CHILDRESS, is a 56 F who presented with progressive, severe lower back pain radiating down BLE. Pt of Dr. Medellin who performed L4-5 posterior lumbar interbody fusion in September 2021. Since then, had some clear drainage. No fever, some increasing neuropathy. Outpt MRI done, showed possible osteo. Sent to ED 12/24, took one day of bactrim and levaquin at home. Came back to ED, given dose of vanc last night, now scheduled for biopsy. Unvaccinated for covid. Full ROS performed and neg except as noted above. No focal weakness in BLE. [facility] Medical History Anxiety Arthritis Asthma Back pain Back pain Cardiology follow-up encounter Chronic neck and back pain COPD (chronic obstructive pulmonary disease) Coronary artery calcification seen on CAT scan CPAP (continuous positive airway pressure) dependence Depression Diabetes Dietary restriction Difficulty balancing Essential hypertension Gastric reflux High cholesterol History of arthritis History of echocardiogram History of edema History of pain when walking History of renal disease History of stomach ulcers History of stress test Hyperlipidemia Hypertension Injury of head and neck Insulin dependent diabetes mellitus Knee pain Lumbar stenosis Migraine headache Obesity Shortness of breath on exertion Shoulder pain Sleep apnea Smoker Strain of muscle, fascia and tendon of pelvis, initial encounter Strain of right hip and thigh Strain of right inguinal region Strain of unspecified muscles, fascia and tendons at thigh level, right thigh, initial encounter Syncope Thyroid disease Type 2 diabetes mellitus Walker as ambulation aid Wears glasses Wears hearing aid Home Medications insulin glargine 100 unit/mL (3 mL) subcutaneous pen 42 unit SC DAILY 11/03/20 [History Last Taken 12/25/21] albuterol sulfate 90 mcg/actuation aerosol inhaler 2 puff INHALATION Q6H PRN 06/14/21 [History Last Taken 12/25/21] atorvastatin 80 mg tablet 80 mg PO QHS 06/14/21 [History Last Taken 12/23/21] budesonide-formoterol HFA 160 mcg-4.5 mcg/actuation aerosol inhaler 2 puff INHALATION BID 06/14/21 [History Last Taken 12/25/21] lisinopril 20 mg-hydrochlorothiazide 25 mg tablet 1 tab PO BID 06/14/21 [History Last Taken 12/25/21] pantoprazole 40 mg tablet,delayed release 40 mg PO DAILY 06/14/21 [History Last Taken 12/25/21] tizanidine 4 mg capsule 4 mg PO BID PRN 06/14/21 [History Last Taken 12/18/21] amitriptyline 100 mg PO QHS 11/27/21 [History Last Taken 12/25/21] ipratropium-albuterol 3 ml INHALATION 4X/DAY PRN 11/27/21 [History Last Taken 11/25/21] loratadine 10 mg PO DAILY 11/27/21 [History Last Taken 12/25/21] oxycodone 5 mg PO Q6H PRN 5 Days #30 tab 11/30/21 [Rx Last Taken 12/25/21] sennosides-docusate sodium [Stool Softener-Stimulant Laxat] 2 tab PO BID PRN PRN #0 tab 11/30/21 [Rx Last Taken Unknown] gabapentin 400 mg PO TIDCM 12/26/21 [History Last Taken Unknown] insulin lispro [Humalog KwikPen Insulin] See Protocol SUBCUT ACHS PRN 12/26/21 [History Last Taken Unknown] levofloxacin 750 mg PO DAILY 12/26/21 [History Last Taken 12/25/21] sulfamethoxazole-trimethoprim 1 tab PO BID 12/26/21 [History Last Taken 12/25/21] Allergy/AdvReac Type Severity Reaction Status Date / Time duloxetine [From Cymbalta] Allergy Unknown Verified 12/26/21 13:23 Penicillins Allergy NEEDS Verified 12/26/21 13:23 FOLLOW-UP pregabalin [From Lyrica] Allergy Unknown Verified 12/26/21 13:23 NSAIDS (Non-Steroidal AdvReac Upset Verified 12/26/21 13:23 Anti-Inflamma Stomach Family History Other Cancer Diabetes Surgical History History of ankle surgery History of History of carpal tunnel release History of hysterectomy History of open reduction and internal fixation (ORIF) procedure History of partial thyroidectomy Social History Smoking Status: Current every day smoker tobacco type: cigarettes alcohol intake: never Physical Exam Const alert, oriented x3 and no apparent distress General Appearance: cooperative Exam Limitations: no limitations HEENT normocephalic and head/scalp atraumatic Eyes PERRL and EOMs intact bilaterally Neck supple and No nodes Resp normal air movement and clear to auscultation bilaterally Cardio regular rate and regular rhythm GI soft to palpation, non-tender and non-distended Extremity no clubbing, cyanosis or edema Skin no rashes or lesions noted Neuro CN's II-XII intact bilaterally Neuro Narrative: good strength in BLE Lab / Micro Data Result Diagrams: 12/27/21 04:16 12/27/21 04:16 Labs: Laboratory Results - last 24 hr 12/26/21 15:11: WBC 9.8, RBC 3.87 L, Hgb 10.6 L, Hct 35.0 L, MCV 90.4, MCH 27.4, MCHC 30.3 L, RDW Std Deviation 49.0 H, RDW Coeff of Yudelka 14.7 H, Plt Count 474 H, MPV 10.1, Immature Gran % (Auto) 0.400, Neut % (Auto) 78.1 H, Lymph % (Auto) 15.5 L, [place] % (Auto) 5.5, Eos % (Auto) 0.4, Baso % (Auto) 0.1, Absolute Neuts (auto) 7.6, Absolute Lymphs (auto) 1.52, Nucleated RBC % 0 12/26/21 15:11: Sodium 135 L, Potassium 4.3, Chloride 106, Carbon Dioxide 21.0, Anion Gap 8, BUN 14, Creatinine 0.90, Estim Creat Clear Calc 52.04, Est GFR (MDRD) Af Amer 83, Est GFR (MDRD) Non-Af 69, BUN/Creatinine Ratio 15.5, Glucose 166 H, Calcium 9.9, Total Bilirubin 0.30, AST 11 L, ALT 10 L, Alkaline Phosphatase 116, Total Protein 7.2, Albumin 2.5 L, Globulin 4.7 H, Albumin/Globulin Ratio 0.5 L 12/26/21 15:11: TSH 3.08 12/26/21 16:25: POC Glucose 145 H 12/26/21 21:55: POC Glucose 297 H 12/27/21 04:16: WBC 8.6, RBC 3.83 L, Hgb 10.6 L, Hct 34.4 L, MCV 89.8, MCH 27.7, MCHC 30.8 L, RDW Std Deviation 48.5 H, RDW Coeff of Yudelka 14.8 H, Plt Count 474 H, MPV 9.8, Immature Gran % (Auto) 0.400, Neut % (Auto) 67.8, Lymph % (Auto) 22.8, [place] % (Auto) 7.4, Eos % (Auto) 1.4, Baso % (Auto) 0.2, Absolute Neuts (auto) 5.8, Absolute Lymphs (auto) 1.95, Nucleated RBC % 0 12/27/21 04:16: Sodium 132 L, Potassium 4.1, Chloride 102, Carbon Dioxide 23.0, Anion Gap 7, BUN 16, Creatinine 0.82, Estim Creat Clear Calc 57.12, Est GFR (MDRD) Af Amer 93, Est GFR (MDRD) Non-Af 77, BUN/Creatinine Ratio 19.6, Glucose 233 H, Calcium 9.1 12/27/21 04:16: Hemoglobin A1c 9.1 H 12/27/21 06:58: POC Glucose 225 H 12/27/21 11:11: POC Glucose 255 H Micro: Microbiology 12/26/21 22:00 Nasal Secretion SARS-CoV-2 Antigen (Rapid) - Final
[2021-12-27 14:50] LABS: Bedside Glucose 186 mg/dL (74-106)
--- NOTE | 2021-12-27 17:26 | PCM.OPRPT ---
Problems Associated Problem List Diagnoses (1) Back pain: (2) Degenerative disc disease, lumbar: (3) Lumbar stenosis: (4) Lumbar spondylosis: (5) Osteomyelitis of lumbar spine: Report of Operation Date of Procedure: 12/27/21 Pre-Operative Diagnosis: 1. Persistent back pain status post lumbar fusion 2. Rule out infection Post-Operative Diagnosis: 1. Persistent back pain status post lumbar fusion 2. Rule out infection Surgery/Procedure Performed:: 1. L3 vertebral body biopsy Description of Surgical Findings:: The patient was seen in the preop holding area. Risks and benefits of the procedure were explained to the patient and informed consent was obtained. The patient was transported to the procedure room and after being given the appropriate amount of sedation by anesthesia she was positioned prone on the fluoroscopy table. Under fluoroscopic guidance the L3 vertebral body was identified. Using cephalocaudad tilt the pedicles of the L3 vertebral body were brought into appropriate alignment for placement of the trocar. A transpedicular approach was used with slight obliquing to optimize the view of the L3 pedicle. Subsequently skin and subcutaneous tissues were anesthetized with a 22-gauge needle and 1% lidocaine. The Jamshidi needles were inserted percutaneously into the bilateral L3 pedicles. At no time was a violation of the medial cortex of the pedicles noted. Position was confirmed in AP and lateral views to confirm placement. At this point a bone biopsy of the L3 vertebral body was obtained and sent for culture. The Jamshidi needles were removed. A sterile dressing was applied with gauze and tape. The patient tolerated the procedure well without complication. Surgeon: Beck Medellin Type of Anesthesia: Local and MAC Specimen's removed: L3 vertebral body bone Estimated Blood Loss (mL): 5 cc Fluids Replaced: 400 cc Complications None Admit VTE Documentation VTE Present on Admission: No
[2021-12-27] MEDS: Lidocaine 1% (50 ml mdv) 50 ML Vial (18:57)
--- NOTE | 2021-12-27 19:31 | PCM.PN.ORT ---
Subjective Subjective The patient was seen and examined postoperatively in the PACU. She is lying in bed resting comfortably. She has no complaints of pain. She denies any other complaints including acute numbness tingling or weakness Objective Data Objective Data Vital Signs: Vital Signs Temp Pulse Resp BP Pulse Ox 98.2 F 92 18 129/86 H 98 12/27/21 19:22 12/27/21 19:25 12/27/21 19:25 12/27/21 19:25 12/27/21 19:25 Oxygen Delivery Method Room Air Weight: 156 lb 7.993 oz Body Mass Index (BMI) 29.5 Intake & Output: Intake and Output for Last 24 Hours 12/25/21 12/26/21 12/27/21 23:59 23:59 23:59 Intake Total 535 / 535 0 / 0 Balance 535 / 535 0 / 0 Lab / Micro Data Result Diagrams: 12/27/21 04:16 12/27/21 04:16 Labs: Laboratory Results - last 24 hr 12/26/21 21:55: POC Glucose 297 H 12/27/21 04:16: WBC 8.6, RBC 3.83 L, Hgb 10.6 L, Hct 34.4 L, MCV 89.8, MCH 27.7, MCHC 30.8 L, RDW Std Deviation 48.5 H, RDW Coeff of Yudelka 14.8 H, Plt Count 474 H, MPV 9.8, Immature Gran % (Auto) 0.400, Neut % (Auto) 67.8, Lymph % (Auto) 22.8, [place] % (Auto) 7.4, Eos % (Auto) 1.4, Baso % (Auto) 0.2, Absolute Neuts (auto) 5.8, Absolute Lymphs (auto) 1.95, Nucleated RBC % 0 12/27/21 04:16: Sodium 132 L, Potassium 4.1, Chloride 102, Carbon Dioxide 23.0, Anion Gap 7, BUN 16, Creatinine 0.82, Estim Creat Clear Calc 57.12, Est GFR (MDRD) Af Amer 93, Est GFR (MDRD) Non-Af 77, BUN/Creatinine Ratio 19.6, Glucose 233 H, Calcium 9.1 12/27/21 04:16: Hemoglobin A1c 9.1 H 12/27/21 06:58: POC Glucose 225 H 12/27/21 11:11: POC Glucose 255 H 12/27/21 14:46: POC Glucose 186 H Micro: Microbiology 12/26/21 22:00 Nasal Secretion SARS-CoV-2 Antigen (Rapid) - Final Physical Exam Const alert, oriented x3 and no apparent distress General Appearance: cooperative and comfortable HEENT normocephalic and head/scalp atraumatic Eyes EOMs intact bilaterally and conjunctivae normal Neck full ROM General: normal visual inspection Chest inspection of chest normal and palpation of chest normal Resp normal respiratory effort and normal air movement Effort and Inspection: able to speak in complete sentences Cardio regular rate and peripheral pulses 2+ throughout GI soft to palpation, non-tender and non-distended Back/Spine Back/Spine Narrative: Dressing clean dry and intact Cervical Spine: cervical ROM normal Thoracic Spine / Upper Back: normal to inspection Lumbar Spine / Lower Back: normal to inspection Extremity normal to inspection, full ROM, normal capillary refill, no clubbing, cyanosis or edema and no calf tenderness Skin no rashes or lesions noted General Skin Exam: no breakdown Neuro oriented x3, CN's II-XII intact bilaterally, moves all extremities, no focal motor deficits, no sensory deficits noted and deep tendon reflexes 2+ bilaterally Motor Exam: strength 5/5 throughout and muscle tone normal throughout Assessment & Plan Assessment/Plan (1) Back pain: (2) Degenerative disc disease, lumbar: (3) Lumbar stenosis: (4) Lumbar spondylosis: (5) Osteomyelitis of lumbar spine: PLAN: L3 bone tissue obtained and sent for culture and sensitivity Antibiotics per infectious disease, recommending vancomycin and cefepime Continue pain control and mobilization as tolerated Discharge planning, home once arrangements made
--- NOTE | 2021-12-27 19:35 | RAD_ITS ---
EXAM: XR SPINE, 1 VIEW : 1965 CLINICAL INDICATION: L3 BONE BIOPSY TECHNIQUE: Single view of the spine. This report was created using LX[employer] report generation technology. COMPARISON: None. FINDINGS: Single spot image from an L3 bone biopsy provided. RAD/Spine 1 View Any Level IMPRESSION: Single spot image from an L3 bone biopsy provided. at 0019 Reported and signed by: Elijah Choe MD Electronically Signed: Elijah Choe MD at 0:18 EDT ,
--- NOTE | 2021-12-27 20:27 | PCM.RX.CS ---
Consult Pharmacy has been consulted to manage selected antiobiotic: Vancomycin Type of Consult: New start Prior Doses of Antibiotics Received/Current Regimen: Medications Discontinued Medications Vancomycin HCl 1,750 mg/ (Sodium Chloride) 535 mls @ 250 mls/hr IV X1 ONE Stop: 12/27/21 19:08 Last Admin: 12/27/21 19:20 Dose: 250 mls/hr Documented by: Labs: Sodium 132 mmol/L (136-145) L 12/27/21 04:16 Potassium 4.1 mmol/L (3.5-5.1) 12/27/21 04:16 Chloride 102 mmol/L (98-107) 12/27/21 04:16 Carbon Dioxide 23.0 mmol/L (21.0-32.0) 12/27/21 04:16 Anion Gap 7 (5-15) 12/27/21 04:16 BUN 16 mg/dL (7-18) 12/27/21 04:16 Creatinine 0.82 mg/dL (0.55-1.02) 12/27/21 04:16 Est GFR (MDRD) Af Amer 93 mL/min (>60) 12/27/21 04:16 Est GFR (MDRD) Non-Af 77 mL/min (>60) 12/27/21 04:16 BUN/Creatinine Ratio 19.6 RATIO (10-20) 12/27/21 04:16 Glucose 233 mg/dL (74-106) H 12/27/21 04:16 Microbiology: Microbiology 12/26/21 22:00 Nasal Secretion SARS-CoV-2 Antigen (Rapid) - Final Weight used for dosin kg Estimated Creatinine Clearance: 74 Goal Trough: 15-20 mcg/mL Pharmacy Plan for Drug Dosinmg given x1, 1000mg IV q12h with trough prior to 4th dose per policy. Pharmacy Service will continue to monitor and adjust dosing as required. Follow-Up Labs: Trough Vancomycin - 12/29 @ 0630
[2021-12-27] MEDS: Gabapentin 400 MG Capsule PO (22:06)
[2021-12-27] MEDS: Atorvastatin Calcium 80 MG Tablet PO (22:07)
[2021-12-27] MEDS: Amitriptyline 100 MG Tablet PO (22:09)
[2021-12-27] MEDS: Heparin Injection (Vial) 5,000 UNIT/ML VIAL 5000 UNIT SC (22:13)
[2021-12-27 22:35] LABS: Bedside Glucose 225 mg/dL (74-106)
[2021-12-28] VITALS (9 sets, daily range): BP systolic 117–172; BP diastolic 74–91; PULSE 79–99; RESP 12–18; TEMP 36.4–36.7; O2SAT 95–99
[2021-12-28] MEDS: 0.9% Saline Lock 10 ML Syringe IV ×5 (00:04→23:34)
[2021-12-28] MEDS: Morphine 4 MG/ML Syringe IV ×5 (00:26→23:27)
[2021-12-28] MEDS: Morphine 2 MG/ML Syringe IV (05:54)
[2021-12-28 06:27] LABS: Absolute Lymphocyte Count 1.95 X10^3/uL (0.83-4.51); Absolute Neutrophil Count 4.5 X10^3/uL (2.0-7.7); Basophil# 0.02 X10^3/uL; Basophil% 0.3 % (0-1); Eosinophil# 0.06 X10^3/uL; Eosinophils% 0.8 % (0-5); Hemoglobin 10.1 g/dL (12.0-15.0); Lymphocyte # 1.95 X10^3/ul (0.83-4.51); Lymphocyte % 27.2 % (19-41); Mean Corp Hgb Conc 30.6 g/dL (32-36); Mean Corpuscular Hgb 27.4 pg (27.0-32.0); Mean Corpuscular Volume 89.7 fL (81-99); Mean Platelet Vol. 9.9 fl (6.2-12.0); Monocyte# 0.65 X10^3/uL; Monocyte% 9.1 % (0-10); NRBC Flagged by Analyzer 0 % (0-5); Neutrophil # 4.45 X10^3/uL (2.7-7.7); Neutrophil % 62.2 % (47-70); Platelet Count 423 K/mm3 (150-450); RBC Distribution Width CV 14.9 % (11.6-14.6); RBC Distribution Width SD 48.9 fl (35.1-43.9); Red Blood Count 3.68 M/mm3 (4.2-5.4); White Blood Count 7.2 K/mm3 (4.4-11.0)
[2021-12-28] MEDS: Insulin Lispro 100 UNIT/ML INSULN.PEN SC ×4 (06:45→21:32)
[2021-12-28] MEDS: Vancomycin IV 1,000 MG/200 ML BAG 200 MG IV ×2 (06:50→19:04)
[2021-12-28 06:51] LABS: Bedside Glucose 195 mg/dL (74-106)
[2021-12-28] MEDS: Budesonide Respules 0.5 MG/2 ML AMPUL.NEB. INHALATION ×2 (07:00→20:06)
[2021-12-28] MEDS: Albuterol 2.5 MG/3 ML VIAL.NEB. INHALATION ×3 (07:00→19:56)
[2021-12-28 07:01] LABS: Anion Gap 9 (5-15); BUN 11 mg/dL (7-18); BUN/Creat Ratio 14.8 RATIO (10-20); Calcium,Total 9.2 mg/dL (8.5-10.1); Chloride 103 mmol/L (98-107); Creatinine, Serum 0.74 mg/dL (0.55-1.02); EST Glomerular Filtration Rate 85 mL/min (>60); Est Glom Filt Rate - Afr Amer 103 mL/min (>60); Estimated Creatinine Clearance 63.29 ml/min; Glucose 174 mg/dL (74-106); Magnesium 1.3 mg/dL (1.6-2.6); Potassium 3.9 mmol/L (3.5-5.1); Sodium Level 134 mmol/L (136-145)
--- NOTE | 2021-12-28 07:29 | PCM.PN.HOSP ---
Subjective Subjective .Patient seen pain is tolerable. Underwent biopsy of L3 vertebrae currently on cefepime and vancomycin cultures pending Objective Data Objective Data Vital Signs: Vital Signs Temp Pulse Resp BP Pulse Ox 97.8 F 85 12 117/87 H 99 12/28/21 06:03 12/28/21 07:01 12/28/21 07:01 12/28/21 06:03 12/28/21 06:03 Oxygen Delivery Method Room Air Weight: 70.987 kg Body Mass Index (BMI) 29.5 Intake & Output: Intake and Output for Last 24 Hours 12/26/21 12/27/21 12/28/21 23:59 23:59 23:59 Intake Total 535 / 535 535 / 535 200 / 200 Output Total 100 / 100 Balance 535 / 535 535 / 435 100 / 100 Lab / Micro Data Result Diagrams: 12/28/21 06:10 12/28/21 06:10 Labs: Laboratory Results - last 24 hr 12/27/21 04:16: Hemoglobin A1c 9.1 H 12/27/21 11:11: POC Glucose 255 H 12/27/21 14:46: POC Glucose 186 H 12/27/21 22:04: POC Glucose 225 H 12/28/21 06:10: WBC 7.2, RBC 3.68 L, Hgb 10.1 L, Hct 33.0 L, MCV 89.7, MCH 27.4, MCHC 30.6 L, RDW Std Deviation 48.9 H, RDW Coeff of Yudelka 14.9 H, Plt Count 423, MPV 9.9, Immature Gran % (Auto) 0.400, Neut % (Auto) 62.2, Lymph % (Auto) 27.2, [place] % (Auto) 9.1, Eos % (Auto) 0.8, Baso % (Auto) 0.3, Absolute Neuts (auto) 4.5, Absolute Lymphs (auto) 1.95, Nucleated RBC % 0 12/28/21 06:10: Sodium 134 L, Potassium 3.9, Chloride 103, Carbon Dioxide 22.0, Anion Gap 9, BUN 11, Creatinine 0.74, Estim Creat Clear Calc 63.29, Est GFR (MDRD) Af Amer 103, Est GFR (MDRD) Non-Af 85, BUN/Creatinine Ratio 14.8, Glucose 174 H, Calcium 9.2, Magnesium 1.3 L 12/28/21 06:43: POC Glucose 195 H Micro: Microbiology 12/26/21 22:00 Nasal Secretion SARS-CoV-2 Antigen (Rapid) - Final Radiography Diagnostic Testing: Radiology Impression Spine X-Ray 12/27/21 19:35 IMPRESSION: Single spot image from an L3 bone biopsy provided. at 0019 Reported and signed by: Elijah Choe MD Electronically Signed: Eljiah Choe MD at 0:18 EDT , Physical Exam Narrative GENERAL: cooperative HEENT: Atraumatic; EYES; Anicteric, Normal Conjunctiva NECK; supple, normal thyroid, RESPIRATORY: Diminished to auscultation CARDIOVASCULAR: Regular S1 S2, GI: soft, normoactive bowel sounds, : No Renal angle tenderness; EXTREMITIES: No edema, no clubbing, MUSCULOSKELETAL: no muscle wasting NEURO: Awake; no lateralizing signs. SKIN: No Rash PSYCH; Flat affect Assessment & Plan Assessment/Plan (1) Osteomyelitis of lumbar spine: (2) Back pain: PLAN: Patient is a 56-year-old lady with history of lumbar fusion surgery in [place] [address] Medellin who presented to the emergency department with back pain. Diagnostic work-up demonstrated elevated ESR as well as MRI findings concerning for osteomyelitis involving the lumbar spine. Antibiotics initiated per protocol admitted to regular nursing floor with consultation placed to both orthopedic and ID 1. Osteomyelitis involving the lumbar spine ? Patient started on broad-spectrum antibiotic therapy with Vanco consult placed to ID and orthopedic surgery. Patient scheduled to undergo biopsy ? 12/28/2021; patient underwent biopsy of the L3 vertebrae. Cultures pending. Patient was seen in consultation by Dr. Cross with ID cefepime added to her vancomycin. 2. 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 Status post lumbar fusion surgery on 09/27/2021 3. Hypertension - Blood pressure controlled, home medications continued with dose adjustment as needed 4. Diabetes mellitus type II -Patient is a long-acting insulin held this a.m. have the dose given in view of patient being n.p.o. for surgery 5. Dyslipidemia -Patient is on statin therapy, continued at home dose 6. Overweight with BMI of 29.6 ? Weight loss advised 7. Diabetic polyneuropathy ? Patient is on gabapentin did continue 8. Tobacco dependence - Counseled on cessation, offered nicotine patch for tobacco cravings 9. COPD ? Did continue patient home aerosol and bronchodilator treatment regimen 10. DVT prophylaxis ? SC heparin 11. Anemia - Secondary to chronic disorder monitoring H&H and transfuse if patient becomes symptomatic or hemoglobin falls below 7 12. Mild hyponatremia ? Possibly related to Charges/Coding Visit Charges Inpatient E&M: 68041 Subs Hosp L3
[2021-12-28] MEDS: Pantoprazole Sodium 40 MG Tablet PO (07:33)
[2021-12-28] MEDS: Heparin Injection (Vial) 5,000 UNIT/ML VIAL 5000 UNIT SC ×2 (07:33→20:24)
[2021-12-28] MEDS: Lisinopril 20 MG Tablet PO ×2 (07:34→20:23)
[2021-12-28] MEDS: Gabapentin 400 MG Capsule PO ×3 (07:34→16:17)
[2021-12-28] MEDS: hydroCHLOROthiazide 25 MG Tablet PO ×2 (07:34→20:23)
[2021-12-28] MEDS: Glucerna Shake 120 ML LIQUID PO ×4 (07:36→20:29)
--- NOTE | 2021-12-28 07:41 | PCM.PN.ORT ---
Subjective Subjective The patient was seen and examined. She is doing very well. She has some complaints of back pain but this is manageable. No new acute numbness tingling weakness in the legs. No other complaints at this time. She is lying in bed resting comfortably alert and oriented and comfortable. Objective Data Objective Data Vital Signs: Vital Signs Temp Pulse Resp BP Pulse Ox 97.8 F 85 12 117/87 H 99 12/28/21 06:03 12/28/21 07:01 12/28/21 07:01 12/28/21 06:03 12/28/21 06:03 Oxygen Delivery Method Room Air Weight: 156 lb 7.993 oz Body Mass Index (BMI) 29.5 Intake & Output: Intake and Output for Last 24 Hours 12/26/21 12/27/21 12/28/21 23:59 23:59 23:59 Intake Total 535 / 535 535 / 535 200 / 200 Output Total 100 / 100 Balance 535 / 535 535 / 435 100 / 100 Lab / Micro Data Result Diagrams: 12/28/21 06:10 12/28/21 06:10 Labs: Laboratory Results - last 24 hr 12/27/21 04:16: Hemoglobin A1c 9.1 H 12/27/21 11:11: POC Glucose 255 H 12/27/21 14:46: POC Glucose 186 H 12/27/21 22:04: POC Glucose 225 H 12/28/21 06:10: WBC 7.2, RBC 3.68 L, Hgb 10.1 L, Hct 33.0 L, MCV 89.7, MCH 27.4, MCHC 30.6 L, RDW Std Deviation 48.9 H, RDW Coeff of Yudelka 14.9 H, Plt Count 423, MPV 9.9, Immature Gran % (Auto) 0.400, Neut % (Auto) 62.2, Lymph % (Auto) 27.2, [place] % (Auto) 9.1, Eos % (Auto) 0.8, Baso % (Auto) 0.3, Absolute Neuts (auto) 4.5, Absolute Lymphs (auto) 1.95, Nucleated RBC % 0 12/28/21 06:10: Sodium 134 L, Potassium 3.9, Chloride 103, Carbon Dioxide 22.0, Anion Gap 9, BUN 11, Creatinine 0.74, Estim Creat Clear Calc 63.29, Est GFR (MDRD) Af Amer 103, Est GFR (MDRD) Non-Af 85, BUN/Creatinine Ratio 14.8, Glucose 174 H, Calcium 9.2, Magnesium 1.3 L 12/28/21 06:43: POC Glucose 195 H Micro: Microbiology 12/26/21 22:00 Nasal Secretion SARS-CoV-2 Antigen (Rapid) - Final Radiography Diagnostic Testing: Radiology Impression Spine X-Ray 12/27/21 19:35 IMPRESSION: Single spot image from an L3 bone biopsy provided. at 0019 Reported and signed by: Elijah Choe MD Electronically Signed: Elijah Choe MD at 0:18 EDT , Physical Exam Const alert, oriented x3 and no apparent distress General Appearance: cooperative and comfortable HEENT normocephalic and head/scalp atraumatic Eyes EOMs intact bilaterally and conjunctivae normal Neck full ROM General: normal visual inspection Chest inspection of chest normal Resp normal respiratory effort and normal air movement Effort and Inspection: able to speak in complete sentences Cardio regular rate and peripheral pulses 2+ throughout Peripheral Pulses: pulses 2+ throughout GI soft to palpation, non-tender and non-distended Back/Spine Back/Spine Narrative: Dressing clean dry and intact, some mild dried postoperative drainage noted Cervical Spine: cervical ROM normal Thoracic Spine / Upper Back: normal to inspection Lumbar Spine / Lower Back: normal to inspection Extremity normal to inspection, full ROM, normal capillary refill, no clubbing, cyanosis or edema and no calf tenderness Skin no rashes or lesions noted General Skin Exam: no breakdown Neuro oriented x3, CN's II-XII intact bilaterally, moves all extremities, no focal motor deficits and deep tendon reflexes 2+ bilaterally Neuro Narrative: Patient does describe mild decrease sensation in the toes of the bilateral feet. Otherwise sensation intact globally in the extremities Meningeal Signs: no meningeal signs Motor Exam: strength 5/5 throughout and muscle tone normal throughout Assessment & Plan Assessment/Plan (1) Back pain: (2) Degenerative disc disease, lumbar: (3) Lumbar stenosis: (4) Lumbar spondylosis: (5) Osteomyelitis of lumbar spine: PLAN: I had a lengthy discussion with the patient. She did well with her L3 biopsy. Cultures pending. Antibiotics per infectious disease recommendations, vancomycin and cefepime. From an orthopedic standpoint, she is okay to discharge home when okay from internal medicine and infectious disease standpoint.
[2021-12-28] MEDS: oxyCODONE 5 MG Tablet PO (11:24)
[2021-12-28 11:31] LABS: Bedside Glucose 248 mg/dL (74-106)
--- NOTE | 2021-12-28 13:57 | PCM.PN.ID ---
Physical Exam Narrative C/o pain in back, no fever, no n/v/d. No rash or itching. Const alert and no apparent distress General Appearance: cooperative Resp normal air movement and clear to auscultation bilaterally Cardio regular rate and regular rhythm GI soft to palpation, non-tender and non-distended Skin no rashes or lesions noted ID ID: Route of nutrition/ use of supplements: [] Nutritional Intake: [] IV Site: [] Zurita Catheter: [] Assessment & Plan Assessment/Plan (1) Osteomyelitis of lumbar spine: PLAN: sp L4-[address] Medellin on 09/27/21. MRI now shows osteo and possible phlegmon. Took po bactrim and levaquin on 12/25, given one dose of iv vanc on admit. Biopsy done 12/27, gram stain showing GPC. Narrow to vanc/ceftriaxone, plan on picc and d/c home with 6 weeks iv vanc, weekly labs, stop date 02/07/22, ID followup in 2 weeks. Will follow, wrote rx. Unvaccinated for covid, not interested in the shot.
[2021-12-28] MEDS: Magnesium Chloride 64 MG Delay Rel.Tablet 128 MG PO ×2 (14:21→20:24)
--- NOTE | 2021-12-28 14:26 | CASEMGMT ---
Addendum entered by Rosa Xiao 12/28/21 16:52: Pt states she would like to go to [facility] to get therapy. She is aware to call [facility] and schedule appt and make aware that she needs to use the hospital van. Script on chart for signature for therapy with green sheet so it is given to pt. Pt has a PCP appt on Friday, she will cancel so [facility] can see her in the AM. Addendum entered by Rosa Xiao 12/28/21 16:41: Provided pt with hospital transportation info in case she should change her mind regarding therapy. Addendum entered by Rosa Xiao 12/28/21 16:38: Notified pt of the information and she prefers to do therapy on own at home. She is agreeable to the below info and denies further needs. Addendum entered by Rosa Xiao 12/28/21 16:25: TC back from [facility], they were unable to staff pt. Doreen suggested [facility]. TC to [facility], spoke with Lita, she states they may be able to get a one time contract for SN only. She spoke with [facility] and able to do this for SOC on Friday morning. Updated hospitalist, agreeable for Friday dc. Green sheet on chart for w/e dc. Addendum entered by Rosa Xiao 12/28/21 16:12: Received tc back from [facility], they are unable to accept pt d/t staffing. Addendum entered by Rosa Xiao 12/28/21 16:06: RN CM in to pt room, pt aware cost is zero for IV atb. Pt states that [place] was supposed to have been setting up C for pt. She is not sure who and has not heard from anyone. She gave CM phone number for Marlen, her [facility] disease case manager, left vm with her. Pt denies need for walker, states she has a rollator at home that she will use. Discussed outpt therapy, pt prefers to have in the home or for her to do her own exercises as she does not have transportation to therapy. Discussed hospital van with pt as well. Addendum entered by Rosa Xiao 12/28/21 15:55: Received tc back from [facility], they are at capacity with picc lines and are unable to service pt. TC to Sarah Perez, states she has not yet heard back from intake if they are able to accept pt. She will call this RN NABOR back. TC to [facility], spoke with Doreen. Pt cost is zero. She states they will also try to staff case for SOC Friday. Original Note: RN CM into pt room as pt to have IV atb at home. Pt states she will learn herself as she does not have another cg. Patient was provided a list of [facility] providers including quality and resource use data and consistent with the patient?s preferred geographic region, medical needs, and insurance network. Patient has no preference of agency. TC to [facility], left message on [facility]'s vm. Faxed referral. TC to [facility], spoke with Sarah Perez and faxed referral to them. Plan for pt to get picc today with dc Sat and SOC on Friday.
[2021-12-28] MEDS: Magnesium Sulfate 4gm/100mL 4 GM/100 ML IV.SOLN. IV (15:05)
[2021-12-28] MEDS: LORazepam 0.5 MG Tablet PO (16:17)
[2021-12-28 16:26] LABS: Bedside Glucose 259 mg/dL (74-106)
[2021-12-28] MEDS: Atorvastatin Calcium 80 MG Tablet PO (20:23)
[2021-12-28] MEDS: Amitriptyline 100 MG Tablet PO (20:25)
[2021-12-28] MEDS: Senna/Docusate Sodium 1 Tablet 2 TABLET PO (21:30)
[2021-12-28 22:11] LABS: Bedside Glucose 366 mg/dL (74-106)
[2021-12-29 02:29] VITALS: BP 143/87; PULSE 80; RESP 15; TEMP 36.8; O2SAT 98
[2021-12-29] MEDS: Insulin Lispro 100 UNIT/ML INSULN.PEN SC ×4 (06:39→22:19)
[2021-12-29 06:45] LABS: Bedside Glucose 359 mg/dL (74-106)
[2021-12-29] MEDS: Vancomycin IV 1,000 MG/200 ML BAG 200 MG IV ×2 (06:46→18:45)
[2021-12-29 07:08] VITALS: PULSE 80; RESP 16
[2021-12-29] MEDS: Albuterol 2.5 MG/3 ML VIAL.NEB. INHALATION (07:08)
[2021-12-29] MEDS: Budesonide Respules 0.5 MG/2 ML AMPUL.NEB. INHALATION (07:08)
--- NOTE | 2021-12-29 07:21 | CPS ---
Pt says she does not want any more inhaled steroids. she says she takes her symbicort prn @home.
[2021-12-29 07:34] LABS: Absolute Lymphocyte Count 1.69 X10^3/uL (0.83-4.51); Basophil# 0.01 X10^3/uL; Basophil% 0.1 % (0-1); Eosinophil# 0.08 X10^3/uL; Eosinophils% 1.1 % (0-5); Hematocrit 32.9 % (37-47); Hemoglobin 10.1 g/dL (12.0-15.0); Lymphocyte # 1.69 X10^3/ul (0.83-4.51); Lymphocyte % 22.8 % (19-41); Mean Corp Hgb Conc 30.7 g/dL (32-36); Mean Corpuscular Hgb 27.3 pg (27.0-32.0); Mean Corpuscular Volume 88.9 fL (81-99); Mean Platelet Vol. 10.5 fl (6.2-12.0); Monocyte# 0.57 X10^3/uL; Monocyte% 7.7 % (0-10); NRBC Flagged by Analyzer 0 % (0-5); Neutrophil # 5.02 X10^3/uL (2.7-7.7); Neutrophil % 67.9 % (47-70); Platelet Count 417 K/mm3 (150-450); RBC Distribution Width CV 14.8 % (11.6-14.6); RBC Distribution Width SD 48.4 fl (35.1-43.9); White Blood Count 7.4 K/mm3 (4.4-11.0)
--- NOTE | 2021-12-29 07:40 | PCM.PN.HOSP ---
Subjective Subjective Patient cultures pending gram stain did reveal gram-positive cocci. Plan is for patient to be discharged home on 12/30/2021 with vancomycin and ceftriaxone for 6 weeks Objective Data Objective Data Vital Signs: Vital Signs Temp Pulse Resp BP Pulse Ox 98.3 F 80 16 143/87 H 98 12/29/21 02:29 12/29/21 07:08 12/29/21 07:08 12/29/21 02:29 12/29/21 02:29 Oxygen Delivery Method Room Air Weight: 70.987 kg Body Mass Index (BMI) 29.5 Intake & Output: Intake and Output for Last 24 Hours 12/27/21 12/28/21 12/29/21 23:59 23:59 23:59 Intake Total 535 / 535 1900 / 1900 2800 / 2800 Output Total 100 / 100 Balance 535 / 435 1800 / 1800 2800 / 2800 Lab / Micro Data Result Diagrams: 12/29/21 06:50 12/29/21 06:50 Labs: Laboratory Results - last 24 hr 12/28/21 11:17: POC Glucose 248 H 12/28/21 16:13: POC Glucose 259 H 12/28/21 21:29: POC Glucose 366 H 12/29/21 06:38: POC Glucose 359 H 12/29/21 06:50: WBC 7.4, RBC 3.70 L, Hgb 10.1 L, Hct 32.9 L, MCV 88.9, MCH 27.3, MCHC 30.7 L, RDW Std Deviation 48.4 H, RDW Coeff of Yudelka 14.8 H, Plt Count 417, MPV 10.5, Immature Gran % (Auto) 0.400, Neut % (Auto) 67.9, Lymph % (Auto) 22.8, [place] % (Auto) 7.7, Eos % (Auto) 1.1, Baso % (Auto) 0.1, Absolute Neuts (auto) 5.0, Absolute Lymphs (auto) 1.69, Nucleated RBC % 0 Micro: Microbiology 12/27/21 19:30 Bone - Back Gram Stain - Final 12/27/21 19:30 Bone - Back Wound Culture - Preliminary No growth-Final to follow 12/26/21 22:00 Nasal Secretion SARS-CoV-2 Antigen (Rapid) - Final Physical Exam Narrative GENERAL: cooperative HEENT: Atraumatic; EYES; Anicteric, Normal Conjunctiva NECK; supple, normal thyroid, RESPIRATORY: Diminished to auscultation CARDIOVASCULAR: Regular S1 S2, GI: soft, normoactive bowel sounds, : No Renal angle tenderness; EXTREMITIES: No edema, no clubbing, MUSCULOSKELETAL: no muscle wasting NEURO: Awake; no lateralizing signs. SKIN: No Rash PSYCH; Flat affect Assessment & Plan Assessment/Plan (1) Osteomyelitis of lumbar spine: (2) Back pain: PLAN: Patient is a 56-year-old lady with history of lumbar fusion surgery in September [address] Medellin who presented to the emergency department with back pain. Diagnostic work-up demonstrated elevated ESR as well as MRI findings concerning for osteomyelitis involving the lumbar spine. Antibiotics initiated per protocol admitted to regular nursing floor with consultation placed to both orthopedic and ID 1. Osteomyelitis involving the lumbar spine ? Patient started on broad-spectrum antibiotic therapy with Vanco consult placed to ID and orthopedic surgery. Patient scheduled to undergo biopsy ? 12/28/2021; patient underwent biopsy of the L3 vertebrae. Cultures pending. Patient was seen in consultation by Dr. Cross with ID cefepime added to her vancomycin. -12/29/2021 Patient cultures pending gram stain did reveal gram-positive cocci. Plan is for patient to be discharged home on 12/30/2021 with vancomycin and ceftriaxone for 6 weeks 2. 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 Status post lumbar fusion surgery on 09/27/2021 3. Hypertension - Blood pressure controlled, home medications continued with dose adjustment as needed 4. Diabetes mellitus type II -Patient is a long-acting insulin held this a.m. have the dose given in view of patient being n.p.o. for surgery -12/29/2021; patient glucose level not well controlled resumed home regimen and added sliding scale insulin for correction of patient hyperglycemia. Patient was also started on scheduled short acting insulin 5. Dyslipidemia -Patient is on statin therapy, continued at home dose 6. Overweight with BMI of 29.6 ? Weight loss advised 7. Diabetic polyneuropathy ? Patient is on gabapentin did continue 8. Tobacco dependence - Counseled on cessation, offered nicotine patch for tobacco cravings 9. COPD ? Did continue patient home aerosol and bronchodilator treatment regimen 10. DVT prophylaxis ? SC heparin 11. Anemia - Secondary to chronic disorder monitoring H&H and transfuse if patient becomes symptomatic or hemoglobin falls below 7 12. Mild hyponatremia ? Possibly related to SIADH from pain ? Sodium level remains low, patient HCTZ discontinued subsequent monitoring of electrolytes ordered Charges/Coding Visit Charges Inpatient E&M: 50080 Subs Hosp L2
[2021-12-29 07:58] LABS: Anion Gap 8 (5-15); BUN 18 mg/dL (7-18); Calcium,Total 9.2 mg/dL (8.5-10.1); Chloride 98 mmol/L (98-107); EST Glomerular Filtration Rate 69 mL/min (>60); Est Glom Filt Rate - Afr Amer 83 mL/min (>60); Estimated Creatinine Clearance 52.04 ml/min; Glucose 436 mg/dL (74-106); Potassium 4.6 mmol/L (3.5-5.1); Sodium Level 130 mmol/L (136-145)
[2021-12-29 08:01] LABS: Vancomycin, Trough Level 18.9 ug/mL (5.0-15.0)
[2021-12-29 08:26] VITALS: BP 146/76; PULSE 94; RESP 16; TEMP 37.3; O2SAT 95
--- NOTE | 2021-12-29 09:05 | PCM.RX.CS ---
Consult Pharmacy has been consulted to manage selected antiobiotic: Vancomycin Type of Consult: Follow-up Suspected Infection: Osteomyelitis Prior Doses of Antibiotics Received/Current Regimen: Currently on 1000mg iv q12h. Labs: Sodium 130 mmol/L (136-145) L 12/29/21 06:50 Potassium 4.6 mmol/L (3.5-5.1) 12/29/21 06:50 Chloride 98 mmol/L (98-107) 12/29/21 06:50 Carbon Dioxide 24.0 mmol/L (21.0-32.0) 12/29/21 06:50 Anion Gap 8 (5-15) 12/29/21 06:50 BUN 18 mg/dL (7-18) 12/29/21 06:50 Creatinine 0.90 mg/dL (0.55-1.02) 12/29/21 06:50 Est GFR (MDRD) Af Amer 83 mL/min (>60) 12/29/21 06:50 Est GFR (MDRD) Non-Af 69 mL/min (>60) 12/29/21 06:50 BUN/Creatinine Ratio 20.0 RATIO (10-20) 12/29/21 06:50 Glucose 436 mg/dL (74-106) H 12/29/21 06:50 Vancomycin Trough 18.9 ug/mL (5.0-15.0) H 12/29/21 06:50 Microbiology: Microbiology 12/27/21 19:30 Bone - Back Gram Stain - Final 12/27/21 19:30 Bone - Back Wound Culture - Preliminary No growth-Final to follow 12/26/21 22:00 Nasal Secretion SARS-CoV-2 Antigen (Rapid) - Final Weight used for dosin kg Estimated Creatinine Clearance: 52ml/min Goal Trough: 15-20 mcg/mL Pharmacy Plan for Drug Dosing: Trough level today was 18.9 and in therapeutic range desired of 15-20mcg/ml. Renal status reviewed. Will continue same dose and frequency with repeat trough tomorrow per protocol. Pharmacy Service will continue to monitor and adjust dosing as required. Follow-Up Labs: Trough Vancomycin - 4.24.22 @1830 before 1900 dose
[2021-12-29] MEDS: hydroCHLOROthiazide 25 MG Tablet PO (09:39)
[2021-12-29] MEDS: Pantoprazole Sodium 40 MG Tablet PO (09:39)
[2021-12-29] MEDS: Magnesium Chloride 64 MG Delay Rel.Tablet 128 MG PO ×2 (09:39→22:24)
[2021-12-29] MEDS: oxyCODONE 5 MG Tablet PO ×3 (09:39→22:07)
[2021-12-29] MEDS: Lisinopril 20 MG Tablet PO ×2 (09:39→22:25)
[2021-12-29] MEDS: Heparin Injection (Vial) 5,000 UNIT/ML VIAL 5000 UNIT SC ×2 (09:39→22:19)
[2021-12-29] MEDS: Glucerna Shake 120 ML LIQUID PO ×3 (09:40→16:49)
[2021-12-29] MEDS: Morphine 4 MG/ML Syringe IV ×2 (10:57→16:08)
[2021-12-29] MEDS: Loratadine 10 MG Tablet PO (10:57)
[2021-12-29 11:20] LABS: Bedside Glucose 426 mg/dL (74-106)
--- NOTE | 2021-12-29 12:20 | NURSING ---
Pt refused [address] units [address] lispro insulin Dr Kenny made aware. pt requesting long acting insulin and Dr Kenny was made aware of that. Pt states My sugar is so high because I have not had my long acting insulin .
--- NOTE | 2021-12-29 12:40 | NURSING ---
called to room by primary RN for picc that would not flush. pt states the IV was beeping and so she turned it off. pt educaated on calling nurse if iv is beeping and not attended to by the staff. attempted to flush unable to flush, attempted to reposition patient and changed the cap still unable to flush. dr. rossi sent text message requesting cathflo order.
[2021-12-29] MEDS: Gabapentin 400 MG Capsule PO ×2 (13:01→16:09)
[2021-12-29 14:31] VITALS: BP 152/78; PULSE 83; RESP 16; TEMP 36.9; O2SAT 98
[2021-12-29] MEDS: Senna/Docusate Sodium 1 Tablet 2 TABLET PO (14:40)
[2021-12-29] MEDS: Alteplase 2 MG/2 ML Vial IV (14:40)
[2021-12-29 16:06] LABS: Bedside Glucose 371 mg/dL (74-106)
[2021-12-29 16:10] VITALS: BP 165/97; PULSE 83; RESP 16; TEMP 36.7; O2SAT 98
[2021-12-29] MEDS: 0.9% Saline Lock 10 ML Syringe IV ×2 (16:12→20:55)
[2021-12-29] MEDS: tiZANidine HCl 2 MG Tablet 4 MG PO (20:54)
[2021-12-29] MEDS: LORazepam 0.5 MG Tablet PO (20:54)
[2021-12-29] MEDS: Acetaminophen 325 MG Tablet 650 MG PO (20:54)
[2021-12-29] MEDS: Amitriptyline 100 MG Tablet PO (22:08)
[2021-12-29 22:10] VITALS: BP 111/59; PULSE 79; RESP 18; TEMP 36.8; O2SAT 96
[2021-12-29] MEDS: Atorvastatin Calcium 80 MG Tablet PO (22:25)
[2021-12-29 22:56] LABS: Bedside Glucose 429 mg/dL (74-106)
[2021-12-30] MEDS: Morphine 4 MG/ML Syringe IV ×3 (00:11→12:42)
[2021-12-30 05:52] VITALS: BP 98/69; PULSE 82; RESP 18; TEMP 36.8; O2SAT 98
[2021-12-30] MEDS: tiZANidine HCl 2 MG Tablet 4 MG PO (06:03)
[2021-12-30] MEDS: 0.9% Saline Lock 10 ML Syringe IV ×3 (06:04→12:43)
[2021-12-30] MEDS: oxyCODONE 5 MG Tablet PO ×2 (06:04→13:17)
[2021-12-30] MEDS: Vancomycin IV 1,000 MG/200 ML BAG 200 MG IV (06:05)
[2021-12-30] MEDS: Senna/Docusate Sodium 1 Tablet 2 TABLET PO (06:15)
[2021-12-30 06:16] LABS: Absolute Lymphocyte Count 1.98 X10^3/uL (0.83-4.51); Absolute Neutrophil Count 4.7 X10^3/uL (2.0-7.7); Basophil# 0.02 X10^3/uL; Basophil% 0.3 % (0-1); Eosinophil# 0.16 X10^3/uL; Eosinophils% 2.1 % (0-5); Hematocrit 33.2 % (37-47); Hemoglobin 10.2 g/dL (12.0-15.0); Lymphocyte # 1.98 X10^3/ul (0.83-4.51); Lymphocyte % 25.9 % (19-41); Mean Corp Hgb Conc 30.7 g/dL (32-36); Mean Corpuscular Hgb 27.1 pg (27.0-32.0); Mean Corpuscular Volume 88.3 fL (81-99); Mean Platelet Vol. 10.5 fl (6.2-12.0); Monocyte% 9.2 % (0-10); NRBC Flagged by Analyzer 0 % (0-5); Neutrophil # 4.74 X10^3/uL (2.7-7.7); Platelet Count 363 K/mm3 (150-450); RBC Distribution Width CV 14.9 % (11.6-14.6); RBC Distribution Width SD 48.2 fl (35.1-43.9); Red Blood Count 3.76 M/mm3 (4.2-5.4); White Blood Count 7.6 K/mm3 (4.4-11.0)
[2021-12-30 06:41] LABS: Anion Gap 8 (5-15); BUN 21 mg/dL (7-18); BUN/Creat Ratio 25.5 RATIO (10-20); Calcium,Total 9.4 mg/dL (8.5-10.1); Chloride 97 mmol/L (98-107); Creatinine, Serum 0.82 mg/dL (0.55-1.02); EST Glomerular Filtration Rate 76 mL/min (>60); Est Glom Filt Rate - Afr Amer 92 mL/min (>60); Estimated Creatinine Clearance 57.12 ml/min; Glucose 240 mg/dL (74-106); Potassium 4.3 mmol/L (3.5-5.1); Sodium Level 130 mmol/L (136-145)
--- NOTE | 2021-12-30 07:37 | PCM.DC.SUM ---
Providers Date of Admission: 12/26/21 Primary Care Physician: Gris Fofana NP Consultations 12/26/21 15:27 Consult: Infectious Disease Routine Consulting Provider: Jez Cross Reason for Consult: possible osteomylitis EMERGENT Consult: No MD Notified: Yes Date Notified: 12/26/21 Time Notified: 14:52 Method of Notification: Verbal Consult: Orthopedics Routine Consulting Provider: Beck Medellin Reason for Consult: possible osteomylitis EMERGENT Consult: No Notified: Yes Date Notified: 12/26/21 Time Notified: 14:53 Method of Notification: Verbal Method of Consult:: In-Person Reason For Visit: OSTEOMYELITIS Diagnosis Discharge Diagnosis (1) Osteomyelitis of lumbar spine: Status: Acute Code(s): M46.26 - Osteomyelitis of vertebra, lumbar region (2) Back pain: Status: Acute Code(s): M54.9 - Dorsalgia, unspecified Medications at Discharge Home Medications insulin glargine 100 unit/mL (3 mL) subcutaneous pen 42 unit SC DAILY 11/03/20 albuterol sulfate 90 mcg/actuation aerosol inhaler 2 puff INHALATION Q6H PRN 06/14/21 atorvastatin 80 mg tablet 80 mg PO QHS 06/14/21 budesonide-formoterol HFA 160 mcg-4.5 mcg/actuation aerosol inhaler 2 puff INHALATION BID 06/14/21 lisinopril 20 mg-hydrochlorothiazide 25 mg tablet 1 tab PO BID 06/14/21 pantoprazole 40 mg tablet,delayed release 40 mg PO DAILY 06/14/21 tizanidine 4 mg capsule 4 mg PO BID PRN 06/14/21 amitriptyline 100 mg PO QHS 11/27/21 ipratropium-albuterol 3 ml INHALATION 4X/DAY PRN 11/27/21 loratadine 10 mg PO DAILY 11/27/21 sennosides-docusate sodium [Stool Softener-Stimulant Laxat] 2 tab PO BID PRN PRN #0 tab 11/30/21 gabapentin 400 mg PO TIDCM 12/26/21 insulin lispro [Humalog KwikPen Insulin] See Protocol SUBCUT ACHS PRN 12/26/21 vancomycin 1 g IV Q12H #80 ea 12/28/21 oxycodone 5 mg PO Q6H PRN 5 Days #16 tab 12/30/21 Hospital Course Summary of Care Provided Minutes Spent on Discharge: 35 Hospital Course: Patient is a 56-year-old lady with history of lumbar fusion surgery in [address] Medellin who presented to the emergency department with back pain. Diagnostic work-up demonstrated elevated ESR as well as MRI findings concerning for osteomyelitis involving the lumbar spine. Antibiotics initiated per protocol admitted to regular nursing floor with consultation placed to both orthopedic and ID 1. Osteomyelitis involving the lumbar spine ? Patient started on broad-spectrum antibiotic therapy with Vanco consult placed to ID and orthopedic surgery. Patient scheduled to undergo biopsy ? 12/28/2021; patient underwent biopsy of the L3 vertebrae. Cultures pending. Patient was seen in consultation by Dr. Cross with ID cefepime added to her vancomycin. -12/29/2021 Patient cultures pending gram stain did reveal gram-positive cocci. Plan is for patient to be discharged home on 12/30/2021 with vancomycin and ceftriaxone for 6 weeks ?12/30/2021 patient was discharged home on Rocephin and vancomycin for 6 weeks with home health 2. 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 Status post lumbar fusion surgery on 09/27/2021 3. Hypertension - Blood pressure controlled, home medications continued with dose adjustment as needed 4. Diabetes mellitus type II -Patient is a long-acting insulin held this a.m. have the dose given in view of patient being n.p.o. for surgery -12/29/2021; patient glucose level not well controlled resumed home regimen and added sliding scale insulin for correction of patient hyperglycemia. Patient was also started on scheduled short acting insulin 5. Dyslipidemia -Patient is on statin therapy, continued at home dose 6. Overweight with BMI of 29.6 ? Weight loss advised 7. Diabetic polyneuropathy ? Patient is on gabapentin did continue 8. Tobacco dependence - Counseled on cessation, offered nicotine patch for tobacco cravings 9. COPD ? Did continue patient home aerosol and bronchodilator treatment regimen 10. DVT prophylaxis ? SC heparin 11. Anemia - Secondary to chronic disorder monitoring H&H and transfuse if patient becomes symptomatic or hemoglobin falls below 7 12. Mild hyponatremia ? Possibly related to SIADH from pain ? Sodium level remains low, patient HCTZ discontinued subsequent monitoring of electrolytes ordered Physical Exam Narrative GENERAL: cooperative HEENT: Atraumatic; EYES; Anicteric, Normal Conjunctiva NECK; supple, normal thyroid, RESPIRATORY: Diminished to auscultation CARDIOVASCULAR: Regular S1 S2, GI: soft, normoactive bowel sounds, : No Renal angle tenderness; EXTREMITIES: No edema, no clubbing, MUSCULOSKELETAL: no muscle wasting NEURO: Awake; no lateralizing signs. SKIN: No Rash PSYCH; Flat affect Weight / BMI Weight Weight: 70.987 kg Body Mass Index (BMI) 29.5 ABG / Lab / Microbiology Data Result Diagrams: 12/30/21 05:50 12/30/21 05:50 Laboratory: Laboratory Results - last 24 hr 12/29/21 06:50: Sodium 130 L, Potassium 4.6, Chloride 98, Carbon Dioxide 24.0, Anion Gap 8, BUN 18, Creatinine 0.90, Estim Creat Clear Calc 52.04, Est GFR (MDRD) Af Amer 83, Est GFR (MDRD) Non-Af 69, BUN/Creatinine Ratio 20.0, Glucose 436 H, Calcium 9.2 12/29/21 06:50: Vancomycin Trough 18.9 H 12/29/21 11:00: POC Glucose 426 H 12/29/21 16:00: POC Glucose 371 H 12/29/21 22:18: POC Glucose 429 H 12/30/21 05:50: WBC 7.6, RBC 3.76 L, Hgb 10.2 L, Hct 33.2 L, MCV 88.3, MCH 27.1, MCHC 30.7 L, RDW Std Deviation 48.2 H, RDW Coeff of Yudelka 14.9 H, Plt Count 363, MPV 10.5, Immature Gran % (Auto) 0.500, Neut % (Auto) 62.0, Lymph % (Auto) 25.9, Kay % (Auto) 9.2, Eos % (Auto) 2.1, Baso % (Auto) 0.3, Absolute Neuts (auto) 4.7, Absolute Lymphs (auto) 1.98, Nucleated RBC % 0 12/30/21 05:50: Sodium 130 L, Potassium 4.3, Chloride 97 L, Carbon Dioxide 25.0, Anion Gap 8, BUN 21 H, Creatinine 0.82, Estim Creat Clear Calc 57.12, Est GFR (MDRD) Af Amer 92, Est GFR (MDRD) Non-Af 76, BUN/Creatinine Ratio 25.5 H, Glucose 240 H, Calcium 9.4 Microbiology: Microbiology 12/27/21 19:30 Bone - Back Gram Stain - Final 12/27/21 19:30 Bone - Back Wound Culture - Preliminary No growth-Final to follow 12/26/21 22:00 Nasal Secretion SARS-CoV-2 Antigen (Rapid) - Final D/C Instructions Discharge Diet: 1800 Calorie Control Diet Discharge Activity: Return to Normal Activity Call your doctor if you observe: Fever of 101 or Higher, Shortness of breath, Fainting spells and Chest pain Meaningful Use Info Meaningful Use Diagnoses (Choose all that apply): None applicable Discharge Plan Admission Admit Date/Time: 12/26/21 14:42 Attending Provider: Simeon Kenny Primary Care Provider: Gris Fofana NP Consulting Providers: Jez Cross ; Beck Medellin Discharge Orders/Prescriptions Prescriptions: New vancomycin 1.25 gram recon soln 1 g IV Q12H Qty: 80 RF: 0 Continued atorvastatin 80 mg tablet 80 mg PO QHS RF: 0 budesonide-formoterol [Symbicort] 160-4.5 mcg/actuation HFA aerosol inhaler 2 puff inhalation BID RF: 0 albuterol sulfate 90 mcg/actuation HFA aerosol inhaler 2 puff inhalation Q6H PRN (Reason: SOB) RF: 0 lisinopril-hydrochlorothiazide 20-25 mg tablet 1 tab PO BID RF: 0 pantoprazole 40 mg tablet,delayed release (DR/EC) 40 mg PO DAILY RF: 0 tizanidine 4 mg capsule 4 mg PO BID PRN (Reason: Muscle Pain) RF: 0 insulin glargine 100 unit/mL (3 mL) insulin pen 42 unit SC DAILY RF: 0 ipratropium-albuterol 0.5 mg-3 mg(2.5 mg base)/3 mL solution for nebulization 3 ml inhalation 4X/DAY PRN (Reason: sob) RF: 0 amitriptyline 100 mg tablet 100 mg PO QHS RF: 0 loratadine 10 mg tablet 10 mg PO DAILY RF: 0 sennosides-docusate sodium [Stool Softener-Stimulant Laxat] 8.6-50 mg Tablet 2 tab PO BID PRN PRN (Reason: Constipation) Qty: 0 RF: 0 gabapentin 400 mg capsule 400 mg PO TIDCM RF: 0 insulin lispro [Humalog KwikPen Insulin] 100 unit/mL insulin pen See Protocol unit subcut ACHS PRN (Reason: diabetes) RF: 0 oxycodone 5 mg tablet 5 mg PO Q6H PRN (Reason: Pain) 5 Days Qty: 16 RF: 0 Discontinued sulfamethoxazole-trimethoprim [sulfamethoxazole-trimethoprim] 1 TABLET tablet 1 tab PO BID RF: 0 levofloxacin 750 mg tablet 750 mg PO DAILY RF: 0 Referrals / Follow Up: Jez Cross MD [STAFF PHYSICIAN] - Within 2 Weeks Gris Fofana NP, [employer] [Primary Care Provider] - In 1 Week Disposition Disposition (needs filled in before D/C Order can be placed): Home Health Service Charges/Coding Visit Charges Inpatient E&M: 14971 Disch Hosp
[2021-12-30] MEDS: Ipratropium/Albuterol Sulfate 3 ML AMPUL.NEB INHALATION (07:55)
[2021-12-30 08:19] VITALS: PULSE 128; RESP 20
[2021-12-30] MEDS: Magnesium Chloride 64 MG Delay Rel.Tablet 128 MG PO (08:28)
[2021-12-30] MEDS: Glucerna Shake 120 ML LIQUID PO (08:29)
[2021-12-30] MEDS: Gabapentin 400 MG Capsule PO ×2 (08:29→11:30)
[2021-12-30] MEDS: Heparin Injection (Vial) 5,000 UNIT/ML VIAL 5000 UNIT SC (08:30)
[2021-12-30] MEDS: Pantoprazole Sodium 40 MG Tablet PO (08:30)
[2021-12-30] MEDS: Loratadine 10 MG Tablet PO (08:47)
[2021-12-30] MEDS: Insulin Lispro 100 UNIT/ML INSULN.PEN SC ×2 (08:49→11:30)
[2021-12-30] MEDS: Insulin Lispro 100 UNIT/ML INSULN.PEN 10 UNIT SC ×2 (08:50→11:31)
[2021-12-30 08:51] VITALS: BP 96/65; PULSE 88; RESP 18; TEMP 36.6; O2SAT 93
[2021-12-30 09:06] LABS: Bedside Glucose 417 mg/dL (74-106)
[2021-12-30] MEDS: LORazepam 0.5 MG Tablet PO (11:36)
[2021-12-30] MEDS: Bisacodyl 5 MG Tablet 10 MG PO (11:36)
[2021-12-30 11:46] LABS: Bedside Glucose 271 mg/dL (74-106)
--- NOTE | 2021-12-31 16:34 | CASEMGMT ---
Pt returned call. States she is doing ok. States [facility] was out today and showed her how to do the IV atb. Pt questioned the therapy. Discussed with her to call [facility] to make appt and let them know that she needs hospital transportation so that can be arranged. Pt denies further questions at this time.
== END 2021-12-30 13:35 | disposition home health service (06) | DRG 344 ==
LOC: ED 14:14 → MS3 15:01
PROVIDERS: Anesthesiology; Internal Medicine Infectious Disease; Orthopaedic Surgery; Physician Assistant; Admitting Provider Internal Medicine; Emergency Provider Emergency Medicine; PCP Nurse Practitioner Primary Care; Visit Provider Internal Medicine
PROC: (CPT 63030; principal; 2021-12-27 15:10)
DX: M46.26 Osteomyelitis of vertebra, lumbar region (principal); E22.2 Syndrome of inappropriate secretion of antidiuretic hormone; E11.42 Type 2 diabetes mellitus with diabetic polyneuropathy; D64.9 Anemia, unspecified; E78.00 Pure hypercholesterolemia, unspecified; E66.3 Overweight; Z79.4 Long term (current) use of insulin; J44.9 Chronic obstructive pulmonary disease, unspecified; I10 Essential (primary) hypertension; M48.061 Spinal stenosis, lumbar region without neurogenic claudication; E78.5 Hyperlipidemia, unspecified; M47.816 Spondylosis without myelopathy or radiculopathy, lumbar region; M51.36 Other intervertebral disc degeneration, lumbar region; I25.10 Atherosclerotic heart disease of native coronary artery without angina pectoris; Z28.310 Unvaccinated for COVID-19; Z98.1 Arthrodesis status; Z68.29 Body mass index [BMI] 29.0-29.9, adult
CPT/HCPCS: 36415; 36569; 72020; 76000; 80048; 80053; 80202; 82962; 83036; 83735; 84443; 85025; 85652; 86140; 87015; 87040; 87070; 87075; 87102; 87116; 87205; 87206; 87811; 93005; 94640; 97110; 97162; 97166; 97530; 99282; 99284; J2997; J7030; J7040; J7050; A4216; J0696; J2405; J3490

== ENCOUNTER → 2022-01-23 | Outpatient (CLI) | payer MEDICAID, SELFPAY ==
[2022-01-23 12:29] LABS: Erythrocyte Sedimentation Rate 43 mm/hr (0-30)
[2022-01-23 12:33] LABS: Absolute Lymphocyte Count 2.67 X10^3/uL (0.83-4.51); Absolute Neutrophil Count 0.6 X10^3/uL (2.0-7.7); Basophil# 0.02 X10^3/uL; Basophil% 0.5 % (0-1); Eosinophils% 4.5 % (0-5); Hematocrit 35.2 % (37-47); Hemoglobin 10.6 g/dL (12.0-15.0); Lymphocyte # 2.67 X10^3/ul (0.83-4.51); Lymphocyte % 60.4 % (19-41); Mean Corp Hgb Conc 30.1 g/dL (32-36); Mean Corpuscular Hgb 26.9 pg (27.0-32.0); Mean Corpuscular Volume 89.3 fL (81-99); Monocyte# 0.91 X10^3/uL; Monocyte% 20.6 % (0-10); NRBC Flagged by Analyzer 0.5 % (0-5); Neutrophil % 13.5 % (47-70); POSITIVE DIFFERENTIAL YES; POSITIVE MORPHOLOGY YES; Platelet Count 349 K/mm3 (150-450); RBC Distribution Width CV 15.6 % (11.6-14.6); RBC Distribution Width SD 51.6 fl (35.1-43.9); Red Blood Count 3.94 M/mm3 (4.2-5.4); White Blood Count 4.4 K/mm3 (4.4-11.0)
[2022-01-23 12:35] LABS: Differential Indicated SCAN CRITERIA MET
[2022-01-23 12:52] LABS: Reactive Lymphocyte RARE
== END | disposition home or self-care (01) ==
LOC: LAB 11:48
PROVIDERS: PCP Nurse Practitioner Primary Care; Visit Provider Orthopaedic Surgery
DX: M54.59 Other low back pain (principal)
CPT/HCPCS: 36415; 85025; 85652; 86140

== ENCOUNTER 2022-02-06 08:10 | Emergency (ER) | payer MEDICAID, SELFPAY ==
[2022-02-06 08:11] VITALS: BP 93/68; PULSE 109; RESP 14; TEMP 36.4; O2SAT 100; BMI 28.2
--- NOTE | 2022-02-06 08:20 | EKG12_ITS ---
Test Reason : DIZZY Blood Pressure : / mmHG Vent. Rate : 106 BPM Atrial Rate : 106 BPM P-R Int : 172 ms QRS Dur : 080 ms QT Int : 366 ms P-R-T Axes : 059 -08 038 degrees QTc Int : 486 ms Sinus tachycardia Inferior infarct , age undetermined Abnormal ECG Confirmed by ANJANA CRABTREE, YAMILET ([id number]), makeup editor DIANA HAYES ([id number]) on 02/08/2022 1:45:58 PM Referred By: KENYA Confirmed By:DEVI YEUNG MD
--- NOTE | 2022-02-06 08:21 | EDS_ITS ---
HPI History of Present Illness Chief Complaint: Dizziness Detail of Chief Complaint: Blood pressure and lightheadedness Informant: patient Onset/Context/Timing Onset: Today (In the morning) Context: Sudden Onset Timing: Continuous and Waxes and wanes Quality: Lightheadedness Location: Generalized Current Severity: Mild Maximum Severity: Severe Worsened by: Upright position Relieved by: Nothing Associated Symptoms Associated Symptoms: Low blood pressure and lightheadedness Narrative Narrative: Patient is a 56-year-old woman with multiple medical problems who presents with low blood pressure and lightheadedness. She does have history of hypertension, hypercholesterolemia, diabetes. Her insulin dose has recently been decreased. Her blood pressure meds have not been changed. She reports having nausea and vomiting x2 today. She denies diarrhea. Denies black or maroon-colored stool. She denies coffee-ground emesis. She denies fever, chills night sweats. She denies weight gain or weight loss. She denies double vision or loss of vision. She denies ringing or ears or decreased hearing. Denies rhinorrhea, congestion or postnasal drainage. She denies sore throat. She denies chest discomfort of any type. She denies shortness of breath. She denies cough. She denies history of VTE. She denies leg pain, swelling or discoloration. She denies dysuria, frequency, urgency and hematuria. She does have history of urinary retention. She denies vaginal bleeding. She denies paresthesia, anesthesia or motor weakness. Prior similar symptoms: No Recent Illness/Hospitalization: No PFSH PFSH Medical History Anxiety Arthritis Asthma Back pain Back pain Cardiology follow-up encounter Chronic neck and back pain COPD (chronic obstructive pulmonary disease) Coronary artery calcification seen on CAT scan CPAP (continuous positive airway pressure) dependence Depression Diabetes Dietary restriction Difficulty balancing Essential hypertension Gastric reflux High cholesterol History of arthritis History of echocardiogram History of edema History of pain when walking History of renal disease History of stomach ulcers History of stress test Hyperlipidemia Hypertension Injury of head and neck Insulin dependent diabetes mellitus Knee pain Lumbar stenosis Migraine headache Obesity Shortness of breath on exertion Shoulder pain Sleep apnea Smoker Strain of muscle, fascia and tendon of pelvis, initial encounter Strain of right hip and thigh Strain of right inguinal region Strain of unspecified muscles, fascia and tendons at thigh level, right thigh, initial encounter Syncope Thyroid disease Type 2 diabetes mellitus Walker as ambulation aid Wears glasses Wears hearing aid Home Medications insulin glargine 100 unit/mL (3 mL) subcutaneous pen 42 unit SC DAILY 11/03/20 [History Last Taken 12/25/21] albuterol sulfate 90 mcg/actuation aerosol inhaler 2 puff INHALATION Q6H PRN 06/14/21 [History Last Taken 12/25/21] atorvastatin 80 mg tablet 80 mg PO QHS 06/14/21 [History Last Taken 12/23/21] budesonide-formoterol HFA 160 mcg-4.5 mcg/actuation aerosol inhaler 2 puff INHALATION BID 06/14/21 [History Last Taken 12/25/21] lisinopril 20 mg-hydrochlorothiazide 25 mg tablet 1 tab PO BID 06/14/21 [History Last Taken 12/25/21] pantoprazole 40 mg tablet,delayed release 40 mg PO DAILY 06/14/21 [History Last Taken 12/25/21] tizanidine 4 mg capsule 4 mg PO BID PRN 06/14/21 [History Last Taken 12/18/21] amitriptyline 100 mg PO QHS 11/27/21 [History Last Taken 12/25/21] ipratropium-albuterol 3 ml INHALATION 4X/DAY PRN 11/27/21 [History Last Taken 11/25/21] loratadine 10 mg PO DAILY 11/27/21 [History Last Taken 12/25/21] sennosides-docusate sodium [Stool Softener-Stimulant Laxat] 2 tab PO BID PRN PRN #0 tab 11/30/21 [Rx Last Taken Unknown] gabapentin 400 mg PO TIDCM 12/26/21 [History Last Taken Unknown] insulin lispro [Humalog KwikPen Insulin] See Protocol SUBCUT ACHS PRN 12/26/21 [History Last Taken Unknown] vancomycin 1 g IV Q12H #80 ea 12/28/21 [Rx Last Taken Unknown] oxycodone 5 mg PO Q6H PRN 5 Days #16 tab 12/30/21 [Rx Last Taken Unknown] Allergy/AdvReac Type Severity Reaction Status Date / Time duloxetine [From Cymbalta] Allergy Unknown Verified 02/06/22 08:11 pregabalin [From Lyrica] Allergy Unknown Verified 02/06/22 08:11 Penicillins AdvReac Mild leaves a Verified 02/06/22 08:11 bad taste in her mouth. NSAIDS (Non-Steroidal AdvReac Upset Verified 02/06/22 08:11 Anti-Inflamma Stomach Family History Other Cancer Diabetes Surgical History History of ankle surgery History of History of carpal tunnel release History of hysterectomy History of open reduction and internal fixation (ORIF) procedure History of partial thyroidectomy Social History (Updated 02/06/22 @ 08:[address] Zachary Ni MD) household members: none Smoking Status: Current every day smoker tobacco type: cigarettes alcohol intake: never ROS ROS ED Constitutional Constitutional ED: Denies chills, fever(s), subjective, sweats or weight loss Eyes Eyes: Denies blurry vision, change in vision or diplopia ENT ENT ED: Denies ear pain, rhinorrhea or sore throat Cardiovascular Cardiovascular: Denies chest pain, orthopnea or palpitations Respiratory/Chest Respiratory/Chest: Denies cough, dyspnea, dyspnea on exertion or orthopnea Gastrointestinal Gastrointestinal: Reports nausea and vomiting; Denies abdominal pain, constipation, diarrhea or melena Genitourinary Genitourinary ED: Denies dysuria, hematuria or urinary frequency Musculoskeletal Musculoskeletal: Reports back pain and other Details: Back pain is chronic and she has had prior back surgery ; Denies arthralgias, myalgias or neck pain Integumentary Reports other Details: Burn radial volar surface of right thumb ; Denies abscess, Abrasions or rash Neurologic Neurologic: Denies headache(s), paresthesias or weakness Endocrine Endocrinology: Denies polydipsia, polyphagia or polyuria Allergic/Immunologic Allergic/Immunologic ED: Denies mouth swelling or urticaria EXAM Physical Exam Const Vital Signs: 02/06/22 08:11 02/06/22 09:47 Temperature 97.6 F L Temperature Source Oral Pulse Rate 109 H Respiratory Rate 14 Respiratory Effort Normal Blood Pressure 93/68 Blood Pressure Mean 76 Pulse Ox 100 Oxygen Delivery Method Room Air Positive well nourished and well developed General Appearance ED: well developed and NAD; Negative for cyanotic, diaphoretic or pallor HEENT Reports TM's clear and dry mucous membranes Negative for trauma or tenderness Tympanic Membrane ED: Yes TM's clear Mouth ED: Yes dry mucous membranes Mouth: dry mucous membranes Eyes PERRL and EOMs intact bilaterally General Eye ED: Negative for pale conjunctiva or scleral icterus Neck no lymphadenopathy, supple and no JVD Chest Wall palpation of chest normal Resp normal respiratory effort and clear to auscultation bilaterally Cardio regular rhythm, S1 normal heart sound, S2 normal heart sound and no murmurs; Negative for regular rate Rate: tachycardic GI normal to inspection, nondistended, normoactive bowel sounds, non-tender and non-distended Palpation: soft Back/Spine no CVA tenderness Cervical Spine: Negative for cervical spine tenderness Thoracic Spine / Upper Back: Negative for thoracic spinal tenderness or paraspinal muscle tenderness Extremity normal to inspection Extremity Narrative: There is no asymmetry, swelling, discoloration, leg vein distention, palpable cords or tenderness along the distribution of the deep venous system. General Extremety ED: Negative for edema or tenderness General Extremity: Negative for edema Neuro oriented x3 and CN's II-XII intact bilaterally Sensorium / Orientation: alert Psych mental status grossly normal Skin no rashes or lesions noted and no wounds Skin Narrative: Patient is slightly diaphoretic. General Skin Exam: Negative for jaundice or pallor MDM MDM MDM Narrative Medical decision making narrative: ActionPatient is tachycardic and hypotensive. Uncertain etiology. This may be due to autonomic dysfunction, drug reaction,. Will obtain EKG to rule out cardiac ischemia. CBC to assess white count and rule out anemia. BMP to evaluate for renal function, glucose and anion gap. Patient was reassessed at 1016. Her heart rate has improved. Approximately 300 to 400 cc of the 1 L has infused. Patient is requesting leave AMA. I entered the room and spoke to her. She misinterpreted her heartbeat as her systolic blood pressure. I informed her that her blood pressure is low. She states I do not care I want to go home. She has been informed that her blood pressure is still low. She has been informed there is injury to her kidney because of this. She was informed by leaving this may result in further harm and not limited to what was documented on the discharge paperwork. Since patient has capacity to make decision she was permitted to sign out AGAINST MEDICAL ADVICE Lab Data Attestation: I reviewed the patient's lab results. Lab results narrative: Creatinine has approximately doubled from baseline. White count and H&H are unremarkable. CO2 is low at 19 with an anion gap of 15 which is normal. Labs: Laboratory Results - last 24 hr 02/06/22 02/06/22 02/06/22 08:48 08:48 08:48 WBC 6.6 RBC 4.94 Hgb 13.3 Hct 42.8 MCV 86.6 MCH 26.9 L MCHC 31.1 L RDW Std Deviation 48.8 H RDW Coeff of Yudelka 15.5 H Plt Count 432 MPV 9.7 Immature Gran % (Auto) 1.100 H Neut % (Auto) 50.2 Lymph % (Auto) 32.3 [place] % (Auto) 11.3 H Eos % (Auto) 4.3 Baso % (Auto) 0.8 Absolute Neuts (auto) 3.3 Absolute Lymphs (auto) 2.12 Nucleated RBC % 0 Sodium 137 Potassium 3.9 Chloride 103 Carbon Dioxide 19.0 L Anion Gap 15 BUN 34 H Creatinine 1.71 H Estim Creat Clear Calc 27.39 Est GFR (MDRD) Af Amer 40 L Est GFR (MDRD) Non-Af 33 L BUN/Creatinine Ratio 19.9 Glucose 130 H Lactic Acid 1.9 Calcium 10.2 H Total Bilirubin 0.30 AST 21 ALT 25 Alkaline Phosphatase 158 H Total Protein 8.6 H Albumin 3.7 Globulin 4.9 H Albumin/Globulin Ratio 0.8 L EKG Initial EKG: Attestation: I personally reviewed and interpreted this EKG as follows: Interpretation: Sinus Tachycardia (Ventricular rate is 106. AK interval is 172. Cures duration 80 ms. QT duration 10 and 6 6 ms. [place] is normal.) Discharge Plan Triage Chief Complaint: Dizziness ED Provider: Zachary Ni Dx/Rx/DC Orders Clinical Impression: Acute hypotension, DELGADO (acute kidney injury), Sinus tachycardia Instructions: Acute Kidney Failure Dc, ED About Arrhythmias, ED Low Blood Pressure, All Causes Prescriptions: No Action atorvastatin 80 mg tablet 80 mg PO QHS RF: 0 budesonide-formoterol [Symbicort] 160-4.5 mcg/actuation HFA aerosol inhaler 2 puff inhalation BID RF: 0 albuterol sulfate 90 mcg/actuation HFA aerosol inhaler 2 puff inhalation Q6H PRN (Reason: SOB) RF: 0 lisinopril-hydrochlorothiazide 20-25 mg tablet 1 tab PO BID RF: 0 pantoprazole 40 mg tablet,delayed release (DR/EC) 40 mg PO DAILY RF: 0 tizanidine 4 mg capsule 4 mg PO BID PRN (Reason: Muscle Pain) RF: 0 insulin glargine 100 unit/mL (3 mL) insulin pen 42 unit SC DAILY RF: 0 ipratropium-albuterol 0.5 mg-3 mg(2.5 mg base)/3 mL solution for nebulization 3 ml inhalation 4X/DAY PRN (Reason: sob) RF: 0 amitriptyline 100 mg tablet 100 mg PO QHS RF: 0 loratadine 10 mg tablet 10 mg PO DAILY RF: 0 sennosides-docusate sodium [Stool Softener-Stimulant Laxat] 8.6-50 mg Tablet 2 tab PO BID PRN PRN (Reason: Constipation) Qty: 0 RF: 0 gabapentin 400 mg capsule 400 mg PO TIDCM RF: 0 insulin lispro [Humalog KwikPen Insulin] 100 unit/mL insulin pen See Protocol unit subcut ACHS PRN (Reason: diabetes) RF: 0 vancomycin 1.25 gram recon soln 1 g IV Q12H Qty: 80 RF: 0 oxycodone 5 mg tablet 5 mg PO Q6H PRN (Reason: Pain) 5 Days Qty: 16 RF: 0 Primary Care Provider: Gris Fofana NP Referrals: Gris Fofana NP, AIR[employer] IN[employer]UMENT ENGINEER-[employer] [Primary Care Provider] - As soon as possible Activity Restrictions/Additional Instructions: I was informed by Dr. Ni that it is in my best interest to stay in the hospital. I have been informed this may result in emotional, physical or mental disability. This may result in loss of limb or limbs. This may result in more aggressive therapy and renal failure requiring dialysis. If my condition continues to deteriorate this may result in life-saving measures including ventilator, tracheostomy and eventually feeding tube. This may also result in semivegetative vegetative state. Seizure disorder. Inability to care for self and perform activities of daily living. Disposition Disposition: Against Medical Advice Capacity Capacity Assessment Tool Can the patient make a choice & communicate that choice?: Yes Can the patient understand benefits, risks and alternatives?: Yes Can the patient make a logical, rational choice?: Yes Is the choice the patient makes consistent w/ their values?: Unable to Determine Is there an impending, emergent risk to the patient?: Yes Does the patient have an Advance Directive?: Unable to Determine Is there a Surrogate Available?: No i.e. HCPOA: No i.e. close relative (spouse, child, parent, sibling)?: No
[2022-02-06] MEDS: 0.9% Normal Saline 1,000 ML 1000 ML IV (08:51)
[2022-02-06 08:52] LABS: Absolute Lymphocyte Count 2.12 X10^3/uL (0.83-4.51); Absolute Neutrophil Count 3.3 X10^3/uL (2.0-7.7); Basophil# 0.05 X10^3/uL; Basophil% 0.8 % (0-1); Eosinophil# 0.28 X10^3/uL; Eosinophils% 4.3 % (0-5); Hematocrit 42.8 % (37-47); Hemoglobin 13.3 g/dL (12.0-15.0); Lymphocyte # 2.12 X10^3/ul (0.83-4.51); Lymphocyte % 32.3 % (19-41); Mean Corp Hgb Conc 31.1 g/dL (32-36); Mean Corpuscular Hgb 26.9 pg (27.0-32.0); Mean Corpuscular Volume 86.6 fL (81-99); Mean Platelet Vol. 9.7 fl (6.2-12.0); Monocyte# 0.74 X10^3/uL; Monocyte% 11.3 % (0-10); NRBC Flagged by Analyzer 0 % (0-5); Neutrophil % 50.2 % (47-70); Platelet Count 432 K/mm3 (150-450); RBC Distribution Width CV 15.5 % (11.6-14.6); RBC Distribution Width SD 48.8 fl (35.1-43.9); Red Blood Count 4.94 M/mm3 (4.2-5.4); White Blood Count 6.6 K/mm3 (4.4-11.0)
[2022-02-06 09:15] LABS: ALB/GLOB Ratio 0.8 RATIO (0.9-2.4); AST(SGOT) 21 U/L (15-37); Alanine Aminotransfer ALT/SGPT 25 U/L (13-56); Albumin, Serum 3.7 g/dL (3.2-5.0); Alkaline Phosphatase 158 U/L (45-117); Anion Gap 15 (5-15); BUN 34 mg/dL (7-18); BUN/Creat Ratio 19.9 RATIO (10-20); Calcium,Total 10.2 mg/dL (8.5-10.1); Chloride 103 mmol/L (98-107); Creatinine, Serum 1.71 mg/dL (0.55-1.02); EST Glomerular Filtration Rate 33 mL/min (>60); Est Glom Filt Rate - Afr Amer 40 mL/min (>60); Estimated Creatinine Clearance 27.39 ml/min; Globulin 4.9 g/dL (2.2-4.2); Glucose 130 mg/dL (74-106); Potassium 3.9 mmol/L (3.5-5.1); Protein, Total 8.6 g/dL (6.4-8.2); Sodium Level 137 mmol/L (136-145)
[2022-02-06 09:35] LABS: Lactic Acid 1.9 mmol/L (0.4-1.9)
== END 2022-02-06 11:18 | disposition left against medical advice (07) ==
PROVIDERS: Emergency Provider Emergency Medicine; PCP Nurse Practitioner Primary Care; Visit Provider Emergency Medicine
DX: I95.9 Hypotension, unspecified (principal); N17.9 Acute kidney failure, unspecified; R00.0 Tachycardia, unspecified; I25.10 Atherosclerotic heart disease of native coronary artery without angina pectoris; G47.30 Sleep apnea, unspecified; F17.210 Nicotine dependence, cigarettes, uncomplicated
CPT/HCPCS: 80053; 83605; 85025; 93005; 96360; 99285; J7030; A4216

== ENCOUNTER 2022-02-09 19:51 | Inpatient (IN) | payer MEDICAID, SELFPAY ==
[2022-02-09 19:53] VITALS: BP 139/68; PULSE 65; RESP 15; TEMP 36.6; O2SAT 100; BMI 27.3
--- NOTE | 2022-02-09 20:09 | EX.ED.DYSGE1 ---
HPI History of Present Illness Chief Complaint: Back Informant: patient Onset/Context/Timing Onset: Month(s) Current Severity: Severe Maximum Severity: Severe Narrative Narrative: Patient presents secondary to severe back pain. She had surgery in September of this year. 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 Earlier this week she finished a 6-week course of IV Rocephin and vancomycin. Patient presents stating that her back pain is severe and she cannot take it anymore. She states this has been ongoing since her surgery and does not seem to be worse since stopping her antibiotics this week. She denies fever or chills. She missed her last appointment with her spine surgeon but states she is supposed to see him on either Friday or Friday of this coming week. She does report that the pain radiates into her legs. No problems with bowel or bladder control. She states that she will have episodes where her feet feel cold. [facility] Medical History Anxiety Arthritis Asthma Back pain Back pain Cardiology follow-up encounter Chronic neck and back pain COPD (chronic obstructive pulmonary disease) Coronary artery calcification seen on CAT scan CPAP (continuous positive airway pressure) dependence Depression Diabetes Dietary restriction Difficulty balancing Essential hypertension Gastric reflux High cholesterol History of arthritis History of echocardiogram History of edema History of pain when walking History of renal disease History of stomach ulcers History of stress test Hyperlipidemia Hypertension Injury of head and neck Insulin dependent diabetes mellitus Knee pain Lumbar stenosis Migraine headache Obesity Shortness of breath on exertion Shoulder pain Sleep apnea Smoker Strain of muscle, fascia and tendon of pelvis, initial encounter Strain of right hip and thigh Strain of right inguinal region Strain of unspecified muscles, fascia and tendons at thigh level, right thigh, initial encounter Syncope Thyroid disease Type 2 diabetes mellitus Walker as ambulation aid Wears glasses Wears hearing aid Home Medications insulin glargine 100 unit/mL (3 mL) subcutaneous pen 42 unit SC DAILY 11/03/20 [History Last Taken 12/25/21] albuterol sulfate 90 mcg/actuation aerosol inhaler 2 puff INHALATION Q6H PRN 06/14/21 [History Last Taken 12/25/21] atorvastatin 80 mg tablet 80 mg PO QHS 06/14/21 [History Last Taken 12/23/21] budesonide-formoterol HFA 160 mcg-4.5 mcg/actuation aerosol inhaler 2 puff INHALATION BID 06/14/21 [History Last Taken 12/25/21] lisinopril 20 mg-hydrochlorothiazide 25 mg tablet 1 tab PO BID 06/14/21 [History Last Taken 12/25/21] pantoprazole 40 mg tablet,delayed release 40 mg PO DAILY 06/14/21 [History Last Taken 12/25/21] tizanidine 4 mg capsule 4 mg PO BID PRN 06/14/21 [History Last Taken 12/18/21] amitriptyline 100 mg PO QHS 11/27/21 [History Last Taken 12/25/21] ipratropium-albuterol 3 ml INHALATION 4X/DAY PRN 11/27/21 [History Last Taken 11/25/21] loratadine 10 mg PO DAILY 11/27/21 [History Last Taken 12/25/21] sennosides-docusate sodium [Stool Softener-Stimulant Laxat] 2 tab PO BID PRN PRN #0 tab 11/30/21 [Rx Last Taken Unknown] gabapentin 400 mg PO TIDCM 12/26/21 [History Last Taken Unknown] insulin lispro [Humalog KwikPen Insulin] See Protocol SUBCUT ACHS PRN 12/26/21 [History Last Taken Unknown] oxycodone 5 mg PO Q6H PRN 5 Days #16 tab 12/30/21 [Rx Last Taken Unknown] Allergy/AdvReac Type Severity Reaction Status Date / Time duloxetine [From Cymbalta] Allergy Unknown Verified 02/09/22 19:55 pregabalin [From Lyrica] Allergy Unknown Verified 02/09/22 19:55 Penicillins AdvReac Mild leaves a Verified 02/09/22 19:55 bad taste in her mouth. NSAIDS (Non-Steroidal AdvReac Upset Verified 02/09/22 19:55 Anti-Inflamma Stomach Family History Other Cancer Diabetes Surgical History History of ankle surgery History of History of carpal tunnel release History of hysterectomy History of open reduction and internal fixation (ORIF) procedure History of partial thyroidectomy Social History household members: none Smoking Status: Current every day smoker tobacco type: cigarettes alcohol intake: never ROS ROS ED Constitutional Constitutional ED: Denies chills or fever(s) Eyes Eyes: Denies change in vision ENT ENT ED: Denies sore throat Cardiovascular Cardiovascular: Denies chest pain Respiratory/Chest Respiratory/Chest: Denies cough or dyspnea Gastrointestinal Gastrointestinal: Denies abdominal pain, diarrhea, nausea or vomiting Genitourinary Genitourinary ED: Denies dysuria Musculoskeletal Musculoskeletal: Reports back pain Integumentary Denies rash Neurologic Neurologic: Denies headache(s) or weakness Psychiatric Psychiatric: Reports anxiety Allergic/Immunologic Allergic/Immunologic ED: Denies urticaria EXAM Physical Exam Const Vital Signs: 02/09/22 19:53 Temperature 97.9 F Temperature Source Oral Pulse Rate 65 Respiratory Rate 15 Blood Pressure 139/68 H Blood Pressure Mean 91 Pulse Ox 100 Oxygen Delivery Method Room Air Positive well nourished and well developed General Appearance ED: well developed HEENT Reports moist mucous membranes Eyes PERRL and EOMs intact bilaterally Neck supple Chest Wall inspection of chest normal and palpation of chest normal Resp normal respiratory effort and clear to auscultation bilaterally Cardio regular rate and regular rhythm GI non-tender Palpation: soft Back/Spine Back/Spine Narrative: Well-healed incision over the midline lumbar spine. No erythema. No drainage or fluctuance. Mild tenderness noted along the bilateral sides of the incision. Extremity normal to inspection Neuro oriented x3 Sensorium / Orientation: alert Psych mental status grossly normal Skin no rashes or lesions noted MDM MDM MDM Narrative Medical decision making narrative: Patient was given Dilaudid and Zofran for pain. Lab work obtained including sed rate and CRP. Lab Data Attestation: I reviewed the patient's lab results. Labs: Laboratory Results - last 24 hr 02/09/22 02/09/22 20:17 20:17 WBC 5.9 RBC 4.53 Hgb 12.2 Hct 39.4 MCV 87.0 MCH 26.9 L MCHC 31.0 L RDW Std Deviation 49.9 H RDW Coeff of Yudelka 16.1 H Plt Count 459 H MPV 9.7 Immature Gran % (Auto) 0.500 Neut % (Auto) 50.5 Lymph % (Auto) 37.8 [place] % (Auto) 8.5 Eos % (Auto) 2.4 Baso % (Auto) 0.3 Absolute Neuts (auto) 3.0 Absolute Lymphs (auto) 2.22 Nucleated RBC % 0 ESR 26 Sodium 136 Potassium 5.2 H Chloride 112 H Carbon Dioxide 20.0 L Anion Gap 4 L BUN 25 H Creatinine 1.32 H Estim Creat Clear Calc 35.48 Est GFR (MDRD) Af Amer 53 L Est GFR (MDRD) Non-Af 44 L BUN/Creatinine Ratio 18.9 Glucose 146 H Calcium 9.5 C-React Prot Ext Range 15.90 H Treatment and Re-Evaluation Narrative: Lab work does reveal normal white count. Sed rate is now normal at 26. CRP is improved from the 50-70 range down to 16. On repeat evaluation patient still complains of severe pain. She is given another dose of 0.5 mg Dilaudid. I spoke with Dr. Medellin, her spine surgeon. He states that if the patient is having that severe pain we probably should watch her for pain control and get an MRI tomorrow if at all possible. We will go ahead and cover her with a dose of Rocephin and vancomycin tonight. I will speak with the hospitalist. Discharge Plan Triage Chief Complaint: Back ED Provider: Marcy Kidd Dx/Rx/DC Orders Clinical Impression: Back pain, Hx of osteomyelitis Prescriptions: No Action atorvastatin 80 mg tablet 80 mg PO QHS RF: 0 budesonide-formoterol [Symbicort] 160-4.5 mcg/actuation HFA aerosol inhaler 2 puff inhalation BID RF: 0 albuterol sulfate 90 mcg/actuation HFA aerosol inhaler 2 puff inhalation Q6H PRN (Reason: SOB) RF: 0 lisinopril-hydrochlorothiazide 20-25 mg tablet 1 tab PO BID RF: 0 pantoprazole 40 mg tablet,delayed release (DR/EC) 40 mg PO DAILY RF: 0 tizanidine 4 mg capsule 4 mg PO BID PRN (Reason: Muscle Pain) RF: 0 insulin glargine 100 unit/mL (3 mL) insulin pen 42 unit SC DAILY RF: 0 ipratropium-albuterol 0.5 mg-3 mg(2.5 mg base)/3 mL solution for nebulization 3 ml inhalation 4X/DAY PRN (Reason: sob) RF: 0 amitriptyline 100 mg tablet 100 mg PO QHS RF: 0 loratadine 10 mg tablet 10 mg PO DAILY RF: 0 sennosides-docusate sodium [Stool Softener-Stimulant Laxat] 8.6-50 mg Tablet 2 tab PO BID PRN PRN (Reason: Constipation) Qty: 0 RF: 0 gabapentin 400 mg capsule 400 mg PO TIDCM RF: 0 insulin lispro [Humalog KwikPen Insulin] 100 unit/mL insulin pen See Protocol unit subcut ACHS PRN (Reason: diabetes) RF: 0 oxycodone 5 mg tablet 5 mg PO Q6H PRN (Reason: Pain) 5 Days Qty: 16 RF: 0 Primary Care Provider: Gris Fofana NP Referrals: Gris Fofnaa NP, P[employer] CR[employer] OPERATOR-C [Primary Care Provider] - Disposition Disposition: Acute Care [facility]
[2022-02-09] MEDS: 0.9% Normal Saline 1,000 ML 150 ML IV (20:22)
[2022-02-09] MEDS: Ondansetron 4 MG/2 ML Vial IV (20:22)
[2022-02-09] MEDS: HYDROmorphone 1 MG/ML Syringe 0.5 MG IV (20:23)
[2022-02-09 20:43] LABS: Erythrocyte Sedimentation Rate 26 mm/hr (0-30)
[2022-02-09 20:45] LABS: Absolute Lymphocyte Count 2.22 X10^3/uL (0.83-4.51); Basophil# 0.02 X10^3/uL; Basophil% 0.3 % (0-1); Eosinophil# 0.14 X10^3/uL; Eosinophils% 2.4 % (0-5); Hematocrit 39.4 % (37-47); Hemoglobin 12.2 g/dL (12.0-15.0); Lymphocyte # 2.22 X10^3/ul (0.83-4.51); Lymphocyte % 37.8 % (19-41); Mean Corpuscular Hgb 26.9 pg (27.0-32.0); Mean Platelet Vol. 9.7 fl (6.2-12.0); Monocyte% 8.5 % (0-10); NRBC Flagged by Analyzer 0 % (0-5); Neutrophil # 2.96 X10^3/uL (2.7-7.7); Neutrophil % 50.5 % (47-70); Platelet Count 459 K/mm3 (150-450); RBC Distribution Width CV 16.1 % (11.6-14.6); RBC Distribution Width SD 49.9 fl (35.1-43.9); Red Blood Count 4.53 M/mm3 (4.2-5.4); White Blood Count 5.9 K/mm3 (4.4-11.0)
[2022-02-09 20:53] LABS: Anion Gap 4 (5-15); BUN 25 mg/dL (7-18); BUN/Creat Ratio 18.9 RATIO (10-20); Calcium,Total 9.5 mg/dL (8.5-10.1); Chloride 112 mmol/L (98-107); Creatinine, Serum 1.32 mg/dL (0.55-1.02); EST Glomerular Filtration Rate 44 mL/min (>60); Est Glom Filt Rate - Afr Amer 53 mL/min (>60); Estimated Creatinine Clearance 35.48 ml/min; Glucose 146 mg/dL (74-106); Potassium 5.2 mmol/L (3.5-5.1); Sodium Level 136 mmol/L (136-145)
[2022-02-09] MEDS: HYDROmorphone 0.5 MG/0.5 ML SYRINGE IV (21:16)
[2022-02-09] MEDS: Ceftriaxone 1 GM/50 ML BAG IV (21:32)
--- NOTE | 2022-02-09 21:33 | HP.PCM.HOS_ITS ---
HPI - General General Date of Admission: 02/09/22 Date of Service: 02/09/22 Chief Complaint: Intractable back pain HPI Narrative The patient is a 56 y/o F w/ PMHx: COPD/Asthma, IDDM, HTN, HLD, GERD, Morbid Obesity, Diabetes mellitus type II, Tobacco use, FRANCISCO on CPAP q HS although notes she has not been using it as it has been broken, Hx Chronic back pain s/p 09/27/[address] Medellin w/ L4-5 lumbar interbody fusion with insertion of intervertebral mechanical device with structural allograft fusion as well as L4 bilateral laminectomy decompression with bilateral nerve root, L4-5 posterior lateral fusion and pedicle screw fixation, recent admission 12/26/21-12/30/21 for similar intractable lumbar back pain with MRI lumbar spine with questionable osteomyelitis with discharge on 6 week course vanc, rocephin with eventually not ed negative bone cultures who notes ongoing severe lumbar back with ongoing severe radicular shooting pain BL with intermittent paresthesias in her feet, currently rating pain 10/10 both sharp and dull constant in the lumbar spine and LE, noted to be rocking in the ED bed. She denies any bowel or urinary incontinence or saddle anesthesia. She has missed per discussion with Orthopedic surgery several outpatient office visits. Work-up in the ED included T97.9, heart rate 65, BP 139/60, respiratory rate 15, 100% room air, CBC with WC 5.9, hemoglobin 12.2, platelet 459 without shift, BMP with potassium 5.2, chloride 112, complex at 20, BUN/creat 25/1.32, glucose 146, CRP 15.90, ESR 26, blood cul ture x2 pending per ED. In the ED patient ministered vancomycin, Rocephin, Dilaudid 2 doses as well as Zofran and normal saline. Discussed case with the orthopedic surgeon who performed her initial surgery, Dr. Medellin and was been following her outpatient. From discussions and review of records all cultures and bone biopsies were negative but patient was preemptively treated with a course of 6 weeks of vancomycin and Rocephin which she was discharged on 12/30/2021 and completed. Given pain is similar and was present prior to even surgery and has not worsened specifically with no fevers orthopedic surgeon was amenable to deferral of further antibiotic therapy but requested MRI of the lumbar spine with and without contrast. [facility] Medical History Anxiety Arthritis Asthma Back pain Back pain Cardiology follow-up encounter Chronic neck and back pain COPD (chronic obstructive pulmonary disease) Coronary artery calcification seen on CAT scan CPAP (continuous positive airway pressure) dependence Depression Diabetes Dietary restriction Difficulty balancing Essential hypertension Gastric reflux High cholesterol History of arthritis History of echocardiogram History of edema History of pain when walking History of renal disease History of stomach ulcers History of stress test Hyperlipidemia Hypertension Injury of head and neck Insulin dependent diabetes mellitus Knee pain Lumbar stenosis Migraine headache Obesity Shortness of breath on exertion Shoulder pain Sleep apnea Smoker Strain of muscle, fascia and tendon of pelvis, initial encounter Strain of right hip and thigh Strain of right inguinal region Strain of unspecified muscles, fascia and tendons at thigh level, right thigh, initial encounter Syncope Thyroid disease Type 2 diabetes mellitus Walker as ambulation aid Wears glasses Wears hearing aid Home Medications insulin glargine 100 unit/mL (3 mL) subcutaneous pen 42 unit SC DAILY 11/03/20 [History Last Taken 12/25/21] albuterol sulfate 90 mcg/actuation aerosol inhaler 2 puff INHALATION Q6H PRN 06/14/21 [History Last Taken 12/25/21] atorvastatin 80 mg tablet 80 mg PO QHS 06/14/21 [History Last Taken 12/23/21] budesonide-formoterol HFA 160 mcg-4.5 mcg/actuation aerosol inhaler 2 puff INHALATION BID 06/14/21 [History Last Taken 12/25/21] lisinopril 20 mg-hydrochlorothiazide 25 mg tablet 1 tab PO BID 06/14/21 [History Last Taken 12/25/21] pantoprazole 40 mg tablet,delayed release 40 mg PO DAILY 06/14/21 [History Last Taken 12/25/21] tizanidine 4 mg capsule 4 mg PO BID PRN 06/14/21 [History Last Taken 12/18/21] amitriptyline 100 mg PO QHS 11/27/21 [History Last Taken 12/25/21] ipratropium-albuterol 3 ml INHALATION 4X/DAY PRN 11/27/21 [History Last Taken 11/25/21] loratadine 10 mg PO DAILY 11/27/21 [History Last Taken 12/25/21] sennosides-docusate sodium [Stool Softener-Stimulant Laxat] 2 tab PO BID PRN PRN #0 tab 11/30/21 [Rx Last Taken Unknown] gabapentin 400 mg PO TIDCM 12/26/21 [History Last Taken Unknown] insulin lispro [Humalog KwikPen Insulin] See Protocol SUBCUT ACHS PRN 12/26/21 [History Last Taken Unknown] oxycodone 5 mg PO Q6H PRN 5 Days #16 tab 12/30/21 [Rx Last Taken Unknown] Allergy/AdvReac Type Severity Reaction Status Date / Time duloxetine [From Cymbalta] Allergy Unknown Verified 02/09/22 19:55 pregabalin [From Lyrica] Allergy Unknown Verified 02/09/22 19:55 Penicillins AdvReac Mild leaves a Verified 02/09/22 19:55 bad taste in her mouth. NSAIDS (Non-Steroidal AdvReac Upset Verified 02/09/22 19:55 Anti-Inflamma Stomach Family History (Updated 02/09/22 @ 22:[address] Flor Parks MD) Father Cancer Unclear type. Mother Lung cancer Concurrent tobacco use history. Surgical History History of ankle surgery History of History of carpal tunnel release History of hysterectomy History of open reduction and internal fixation (ORIF) procedure History of partial thyroidectomy Social History (Updated 02/09/22 @ 22:[address] Flor Parks MD) household members: none Smoking Status: Current every day smoker tobacco type: cigarettes Smoking packs per day: 1 Smoking cigarettes per day: 20.0 alcohol intake: never substance use type: does not use ROS ROS Narrative Admission Review of Systems: CONSTITUTIONAL: No weight loss, fever, chills, + weakness or fatigue. HEENT: Eyes: No visual loss, blurred vision, double vision or yellow sclerae. Ears, Nose, Throat: No hearing loss, sneezing, congestion, runny nose or sore throat. SKIN: No rash or itching, lesions, wounds. CARDIOVASCULAR: No chest pain, chest pressure or chest discomfort, palpitations, edema, orthopnea, syncopal events. RESPIRATORY: + Intermittent chronic cough, occasional wheeze chronically, occasional chronic shortness of breath, No hemoptysis. GASTROINTESTINAL: + Anorexia, nausea, No vomiting or diarrhea, abdominal pain, melena, BRBPR. GENITOURINARY: No dysuria, frequency, urgency or retention. NEUROLOGICAL: + BL LE radiculopathy, intractable lumbar pain, No headache, dizziness, syncope, paralysis, ataxia, change in bowel or bladder control, seizure. MUSCULOSKELETAL: + muscle, back pain, joint pain or stiffness. HEMATOLOGIC: No anemia, bleeding or bruising. LYMPHATICS: No enlarged nodes. No history of splenectomy. PSYCHIATRIC: + history of depression or anxiety. ENDOCRINOLOGIC: No reports of sweating, cold or heat intolerance. No polyuria or polydipsia. ALLERGIES: + history of asthma, hives, eczema or rhinitis. Vital Signs Vital Signs Vital Signs: 02/09/22 19:53 Temperature 97.9 F Temperature Source Oral Pulse Rate 65 Respiratory Rate 15 Blood Pressure 139/68 H Blood Pressure Mean 91 Pulse Ox 100 Oxygen Delivery Method Room Air Weight Weight: 145 lb Body Mass Index (BMI) 27.3 Physical Exam Narrative Physical Examination: General: awake, alert, oriented x 3 and cooperative, laying in the ED bed, rocking noting that her spine discomfort and pain is 10 out of 10. Skin: normal color, normal turgor, no icterus, no cyanosis, well-healed lumbar spinal incision. HEENT: AT/NC, EOMI, PERRLA, MMM, no noted carotid bruit or JVD.. Lungs: Diminished, greater bases, appropriate effort, no rales, ronchi or wheezing. Heart: Currently regular rate and rhythm; no gallop, rub audible. Abdomen: soft, overweight, NTTP, ND, distant normal BS, no evidence HSM. Extremities: no cyanosis, clubbing, or edema, peripheral pulses intact, sensation intact, + SLR, discomfort to the lumbar spine especially paraspinous bilaterally, reports radicular pain to both. Neurological: patient awake, alert, oriented as noted; cognitive function intact; pupils equally reactive to light and accommodation; cranial nerves grossly normal, moving all 4 extremities although further in the evaluation notes significant pain therefore limited and discomfort to the lumbar and paraspinous region, strength accordingly severely global decreased although patient is continuously rocking in the bed during evaluation. Psychiatric: affect appears fatigued, appears uncomfortable reporting lumbar discomfort, no acute evidence of depressive or anxiety feelings. Results Lab / Micro Data Result Diagrams: 02/09/22 20:17 02/09/22 20:17 Labs: Laboratory Results - last 24 hr 02/09/22 20:17: WBC 5.9, RBC 4.53, Hgb 12.2, Hct 39.4, MCV 87.0, MCH 26.9 L, MCHC 31.0 L, RDW Std Deviation 49.9 H, RDW Coeff of Yudelka 16.1 H, Plt Count 459 H, MPV 9.7, Immature Gran % (Auto) 0.500, Neut % (Auto) 50.5, Lymph % (Auto) 37.8, [place] % (Auto) 8.5, Eos % (Auto) 2.4, Baso % (Auto) 0.3, Absolute Neuts (auto) 3.0, Absolute Lymphs (auto) 2.22, Nucleated RBC % 0, ESR 26 02/09/22 20:17: Sodium 136, Potassium 5.2 H, Chloride 112 H, Carbon Dioxide 20.0 L, Anion Gap 4 L, BUN 25 H, Creatinine 1.32 H, Estim Creat Clear Calc 35.48, Est GFR (MDRD) Af Amer 53 L, Est GFR (MDRD) Non-Af 44 L, BUN/Creatinine Ratio 18.9, Glucose 146 H, Calcium 9.5, C-React Prot Ext Range 15.90 H Assessment & Plan Assessment/Plan (1) Intractable back pain: PLAN: The patient is a 56 y/o F w/ PMHx: COPD/Asthma, IDDM, HTN, HLD, GERD, Morbid Obesity, Diabetes mellitus type II, Tobacco use, FRANCISCO on CPAP q HS although notes she has not been using it as it has been broken, Hx Chronic back pain s/p 09/27/[address] Medellin w/ L4-5 lumbar interbody fusion with insertion of intervertebral mechanical device with structural allograft fusion as well as L4 bilateral laminectomy decompression with bilateral nerve root, L4- 5 posterior lateral fusion and pedicle screw fixation, recent admission 12/26/21- 12/30/21 for similar intractable lumbar back pain with MRI lumbar spine with questionable osteomyelitis with discharge on 6 week course vanc, rocephin with eventually noted negative bone cultures who notes ongoing severe lumbar back with ongoing severe radicular shooting pain BL with intermittent paresthesias in her feet. #1. Intractable lumbar pain with BL radiculopathy with history of lumbar s tenosis with degenerative disc disease and lumbar radiculopathy s/p 09/27/21 Surgery and recent completion 6 wk course abx therapy for possible Osteomyelitis although Bone Bx/Cultures all negative: Will admit to medical surgical floor, maintained on fall precautions, continue Dr. Medellin consultation, initiate Medrol Dosepak, place lidocaine patches, administer increased gabapentin regimen, place TD fentanyl patch, continue PRN oral and IV breakthrough pain regimen, hold on toradol given mild renal insufficiency, obtain MRI lumbar spine with and without contrast, PT/OT/case management consultation. #2. Diabetes mellitus type II: Hold oral home regimen, continue home insulin regimen, ADA diet, accu checks w/ ISS. #3. FRANCISCO: Notes that she had been using CPAP prior, it has been broken but stacey nable to continuation in hospital. #4. Hypertension: Continue home regimen including lisinopril, HCTZ however, if renal function worsens would hold as mild insufficiency noted, PRN hydralazine. #5. Hyperlipidemia: We will continue patient on statin therapy. #6. GERD: We will maintain on home PPI #7. Chronic COPD/Asthma with allergic rhinitis: Will hold home inhalers and transition to ATC DuoNeb therapy, PRN albuterol, encourage head of bed and I-S usage, continue home loratadine regimen. #8. Tobacco Abuse: Encouraged cessation, inpatient consultation per RT, NR if desired. #9. Obesity: Weight loss and lifestyle changes encouraged. #10. DVT prophylaxis: SCDs, lovenox. Charges/Coding Visit Charges OBSV E&M: 71551 Initial observation care L3
[2022-02-09 21:49] VITALS: BP 143/113; PULSE 68; RESP 23; TEMP 36; O2SAT 99
[2022-02-09] MEDS: Vancomycin IV 1,000 MG/200 ML BAG 200 MG IV (22:08)
--- NOTE | 2022-02-09 22:21 | MRI_ITS ---
We are attempting to reach an attending provider to discuss findings. An addendum with communication details will be sent when the communication is complete. STUDY: MRI LUMBAR SPINE WITH AND WITHOUT CONTRAST REASON FOR EXAM: Female, 56 years old. Lumbar back pain, s/p surgery TECHNIQUE: Standardized fat and water weighted pulse sequences were obtained in the sagittal and axial planes. IV 13 CC DOTAREM was administered for the contrast portion of the examination. COMPARISON: None FINDINGS: T12-L1: Normal endplates. Normal disc height, hydration and morphology. Normal bilateral facet joints. Normal central canal and bilateral lateral recesses. Normal bilateral intervertebral neural foramina. Normal lumbar lordosis. There is no substantial scoliosis. Normal conus medullaris that terminates at the L1 level. L1-2: Normal endplates. Normal disc height, hydration and morphology. Normal bilateral facet joints. Normal central canal and bilateral lateral recesses. Normal bilateral intervertebral neural foramina. L2-3: Normal endplates. Normal disc height, hydration and morphology. Normal bilateral facet joints. Normal central canal and bilateral lateral recesses. Normal bilateral intervertebral neural foramina. L3-4: There is signal abnormality in the disc and in the adjacent endplates may represent discitis and osteomyelitis. L4-5: There is bilateral laminectomy with fusion. There is signal abnormality in the bone marrow of L4 and L5 may represent osteomyelitis. There is thickening and abnormal enhancement of the epidural space at L4-L5 may represent a phlegmon. L5-S1: Normal endplates. Normal disc height, hydration and morphology. Normal bilateral facet joints. Normal central canal and bilateral lateral recesses. Normal bilateral intervertebral neural foramina. Normal visualized sacral ala. Normal visualized paraspinous soft tissue structures. MRI/Spine Lumbar W/WO Contrast IMPRESSION: Postsurgical changes at L4-5. Hardware in good position. There is no evidence of epidural hematoma. Bone marrow signal changes at L3, L4, L5 suggesting osteomyelitis. Abnormal thickening and enhancement in the anterior space at L4-L5 suggesting phlegmon. Electronically Signed: Saray Lance MD at 7:40 EDT ,
[2022-02-09 22:29] VITALS: BP 187/93; PULSE 66; RESP 20; TEMP 36.7; O2SAT 98
[2022-02-09 22:30] VITALS: BMI 28.1
[2022-02-09 22:45] VITALS: PULSE 77; RESP 20; O2SAT 97
[2022-02-09] MEDS: Ipratropium/Albuterol Sulfate 3 ML AMPUL.NEB INHALATION (22:45)
[2022-02-09] MEDS: tiZANidine HCl 2 MG Tablet 4 MG PO (23:14)
[2022-02-09] MEDS: MethylPREDNISolone DosePak 4 MG BOX PO (23:14)
[2022-02-09] MEDS: Lidocaine 5% Patch 2 PATCH TOPICAL (23:17)
[2022-02-09] MEDS: oxyCODONE 5 MG Tablet 10 MG PO (23:30)
[2022-02-09] MEDS: Acetaminophen 325 MG Tablet 650 MG PO (23:31)
[2022-02-09] MEDS: fentaNYL 25 MCG Patch TD (23:32)
[2022-02-09] MEDS: 0.9% Normal Saline 1,000 ML 125 ML IV (23:36)
--- NOTE | 2022-02-09 23:50 | NURSING ---
late entry. pt refusing to review home med list or medical history. states we already have this information. notified primary rn. primary rn to attempt to obtain information.
[2022-02-10] VITALS (10 sets, daily range): BP systolic 145–199; BP diastolic 84–115; PULSE 63–114; RESP 16–20; TEMP 36.4–36.8; O2SAT 94–100
--- NOTE | 2022-02-10 00:43 | NURSING ---
Pt refused hydralazine for elevated blood pressure. Pt wants this RN to recheck her BP in a couple hours.
[2022-02-10 01:11] LABS: Bedside Glucose 123 mg/dL (74-106)
[2022-02-10] MEDS: hydrALAZINE 20 MG/ML Vial 10 MG IV (02:21)
[2022-02-10] MEDS: oxyCODONE 5 MG Tablet 10 MG PO ×3 (03:39→22:09)
--- NOTE | 2022-02-10 03:59 | NURSING ---
Pt complaining of pain. Oxy 10 mg given within past hour. Pt refusing to take Tylenol at this time.
[2022-02-10 06:41] LABS: Bedside Glucose 251 mg/dL (74-106)
[2022-02-10 07:03] LABS: Absolute Lymphocyte Count 0.74 X10^3/uL (0.83-4.51); Absolute Neutrophil Count 3.4 X10^3/uL (2.0-7.7); Basophil# 0.02 X10^3/uL; Basophil% 0.5 % (0-1); Hemoglobin 11.5 g/dL (12.0-15.0); Lymphocyte # 0.74 X10^3/ul (0.83-4.51); Lymphocyte % 17.3 % (19-41); Mean Corp Hgb Conc 31.1 g/dL (32-36); Mean Corpuscular Hgb 26.6 pg (27.0-32.0); Mean Corpuscular Volume 85.6 fL (81-99); Mean Platelet Vol. 10.1 fl (6.2-12.0); Monocyte# 0.07 X10^3/uL; Monocyte% 1.6 % (0-10); NRBC Flagged by Analyzer 0 % (0-5); Neutrophil # 3.44 X10^3/uL (2.7-7.7); Neutrophil % 80.4 % (47-70); Platelet Count 420 K/mm3 (150-450); RBC Distribution Width CV 16.1 % (11.6-14.6); RBC Distribution Width SD 49.6 fl (35.1-43.9); Red Blood Count 4.32 M/mm3 (4.2-5.4); White Blood Count 4.3 K/mm3 (4.4-11.0)
[2022-02-10] MEDS: Ipratropium/Albuterol Sulfate 3 ML AMPUL.NEB INHALATION ×2 (07:05→19:12)
--- NOTE | 2022-02-10 07:33 | PN.HOSP_ITS ---
Subjective Subjective Patient is a 56-year-old lady with history of lumbar fusion surgery in [address] Medellin who was evaluated in December and managed as a case of osteomyelitis involving the lumbar spine. Patient was discharged home with 6 weeks of IV antibiotics. Presented back to the emergency department with intractable back pain. Antibiotics initiated per protocol with repeat imaging studies with MRI ordered. Consultation placed to orthopedic surgery Dr. Medellin Objective Data Objective Data Vital Signs: Vital Signs Temp Pulse Resp BP Pulse Ox 97.7 F L 100 20 H 199/85 H 100 02/10/22 03:40 02/10/22 06:58 02/10/22 03:40 02/10/22 06:58 02/10/22 03:40 Oxygen Delivery Method Room Air Weight: 67.5 kg Body Mass Index (BMI) 28.1 Intake & Output: Intake and Output for Last 24 Hours 02/08/22 02/09/22 02/10/22 23:59 23:59 23:59 Intake Total 427.5 / 427.5 Balance 427.5 / 427.5 Lab / Micro Data Result Diagrams: 02/10/22 06:23 02/10/22 06:23 Labs: Laboratory Results - last 24 hr 02/09/22 20:17: WBC 5.9, RBC 4.53, Hgb 12.2, Hct 39.4, MCV 87.0, MCH 26.9 L, MCHC 31.0 L, RDW Std Deviation 49.9 H, RDW Coeff of Yudelka 16.1 H, Plt Count 459 H, MPV 9.7, Immature Gran % (Auto) 0.500, Neut % (Auto) 50.5, Lymph % (Auto) 37.8, [place] % (Auto) 8.5, Eos % (Auto) 2.4, Baso % (Auto) 0.3, Absolute Neuts (auto) 3.0, Absolute Lymphs (auto) 2.22, Nucleated RBC % 0, ESR 26 02/09/22 20:17: Sodium 136, Potassium 5.2 H, Chloride 112 H, Carbon Dioxide 20.0 L, Anion Gap 4 L, BUN 25 H, Creatinine 1.32 H, Estim Creat Clear Calc 35.48, Est GFR (MDRD) Af Amer 53 L, Est GFR (MDRD) Non-Af 44 L, BUN/Creatinine Ratio 18.9, Glucose 146 H, Calcium 9.5, C-React Prot Ext Range 15.90 H 02/09/22 21:50: Procalcitonin 30.10 H 02/10/22 00:13: POC Glucose 123 H 02/10/22 06:23: WBC 4.3 L, RBC 4.32, Hgb 11.5 L, Hct 37.0, MCV 85.6, MCH 26.6 L, MCHC 31.1 L, RDW Std Deviation 49.6 H, RDW Coeff of Yudelka 16.1 H, Plt Count 420, MPV 10.1, Immature Gran % (Auto) 0.200, Neut % (Auto) 80.4 H, Lymph % (Auto) 17 .3 L, [place] % (Auto) 1.6, Eos % (Auto) 0.0, Baso % (Auto) 0.5, Absolute Neuts (auto) 3.4, Absolute Lymphs (auto) 0.74 L, Nucleated RBC % 0 02/10/22 06:26: POC Glucose 251 H Physical Exam Narrative GENERAL: cooperative HEENT: Atraumatic; EYES; Anicteric, Normal Conjunctiva NECK; supple, normal thyroid, RESPIRATORY: Diminished to auscultation CARDIOVASCULAR: Regular S1 S2, GI: soft, normoactive bowel sounds, : No Renal angle tenderness; EXTREMITIES: No edema, no clubbing, MUSCULOSKELETAL: no muscle wasting NEURO: Awake; no lateralizing signs. SKIN: No Rash PSYCH; Flat affect Assessment & Plan Assessment/Plan (1) Intractable back pain: PLAN: Patient is a 56-year-old lady with history of lumbar fusion surgery in [address] Medellin who was evaluated in December and managed as a case of osteomyelitis involving the lumbar spine. Patient was discharged home with 6 weeks of IV antibiotics. Presented back to the emergency department with intractable back pain. Patient did receive antibiotics in the ED with Vanco and Rocephin and subsequently admitted for inpatient evaluation. Repeat imaging studies with MRI ordered. Consultation placed to orthopedic surgery Dr. Medellin 1. Intractable back pain ?Patient has history of lumbar fusion surgery in September 2021 and was managed as a case of osteomyelitis involving the lumbar spine. Admitted with intractable back pain subsequent evaluation with MRI ordered and consultation placed to orthopedic surgery 2. Recent osteomyelitis involving the lumbar spine ? Patient was managed with 6 weeks of antibiotic therapy with vancomycin and Rocephin -Patient did receive antibiotics in the ED with vancomycin and Rocephin. Subsequently held off following her admission pending evaluation by Ortho and ID 3. 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 Status post lumbar fusion surgery on 09/27/2021 4. Diabetes mellitus type II -patient's oral hypoglycemics held. Placed on long acting insulin, Accu-Cheks a.c. and at bedtime and covered with sliding scale insulin 5. Hypertension - Blood pressure controlled, home medications continued with dose adjustment as needed 6. Dyslipidemia -Patient is on statin therapy, continued at home dose 7. Diabetic polyneuropathy ? Patient is on gabapentin did continue 8. Tobacco dependence - Counseled on cessation, offered nicotine patch for tobacco cravings 9. COPD ? Did continue patient home aerosol and bronchodilator treatment regimen 10. Mild hyponatremia ? Possibly related to SIADH from pain 11. DVT prophylaxis ? [facility] Lovenox Charges/Coding Visit Charges Inpatient E&M: 94820 Subs Hosp L2
[2022-02-10 07:46] LABS: ALB/GLOB Ratio 0.8 RATIO (0.9-2.4); AST(SGOT) 14 U/L (15-37); Alanine Aminotransfer ALT/SGPT 18 U/L (13-56); Albumin, Serum 3.2 g/dL (3.2-5.0); Alkaline Phosphatase 136 U/L (45-117); Anion Gap 9 (5-15); BUN 21 mg/dL (7-18); BUN/Creat Ratio 22.2 RATIO (10-20); Calcium,Total 9.5 mg/dL (8.5-10.1); Chloride 107 mmol/L (98-107); Creatinine, Serum 0.95 mg/dL (0.55-1.02); EST Glomerular Filtration Rate 65 mL/min (>60); Est Glom Filt Rate - Afr Amer 78 mL/min (>60); Glucose 253 mg/dL (74-106); Potassium 4.9 mmol/L (3.5-5.1); Protein, Total 7.2 g/dL (6.4-8.2); Sodium Level 132 mmol/L (136-145)
[2022-02-10] MEDS: Gabapentin 600 MG Tablet PO ×3 (08:01→17:00)
[2022-02-10] MEDS: tiZANidine HCl 2 MG Tablet 4 MG PO ×4 (10:20→22:10)
[2022-02-10] MEDS: Loratadine 10 MG Tablet PO (10:20)
[2022-02-10] MEDS: Lidocaine 5% Patch 2 PATCH TOPICAL (10:20)
[2022-02-10] MEDS: Lisinopril 20 MG Tablet PO ×2 (10:20→22:09)
[2022-02-10] MEDS: Pantoprazole Sodium 40 MG Tablet PO (10:20)
[2022-02-10] MEDS: hydroCHLOROthiazide 25 MG Tablet PO ×2 (10:20→22:10)
[2022-02-10] MEDS: Insulin Glargine-YFGN 100 UNIT/ML Pen 42 UNIT SC (10:21)
[2022-02-10] MEDS: Enoxaparin 40 MG/0.4 ML Syringe SC ×2 (10:21→22:10)
[2022-02-10] MEDS: Acetaminophen 325 MG Tablet 650 MG PO (10:31)
[2022-02-10 11:26] LABS: Bedside Glucose 364 mg/dL (74-106)
[2022-02-10 16:31] LABS: Bedside Glucose 359 mg/dL (74-106)
[2022-02-10] MEDS: Insulin Lispro 100 UNIT/ML INSULN.PEN SC ×2 (17:00→22:12)
--- NOTE | 2022-02-10 19:12 | CONS.ORTHO ---
HPI Consult Data Date of Consult: 02/10/22 HPI Narrative HPI Narrative: MILY CHILDRESS, is a 56 F who presents to the emergency department yesterday with increasing back pain with pain and paresthesias in the bilateral lower extremities. She is well-known to myself and does have a history of lumbar fusion by myself and has had similar complaints since surgery. Previous lumbar MRI showed some bone edema in the vertebral bodies and she was subsequently seen and evaluated by infectious disease who had placed her on antibiotics which she has completed. She is resting in bed comfortably at this time. She does complain of pain and tenderness in the lumbar region as well as tingling and weakness in the bilateral lower extremities, which she states increased yesterday resulting in her coming to the ER. She was subsequently admitted for pain control and a lumbar MRI with and without contrast scheduled for tomorrow. She denies any other acute numbness tingling weakness or changes in bowel or bladder function. [facility] Medical History Anxiety Arthritis Asthma Back pain Back pain Cardiology follow-up encounter Chronic neck and back pain COPD (chronic obstructive pulmonary disease) Coronary artery calcification seen on CAT scan CPAP (continuous positive airway pressure) dependence Depression Diabetes Dietary restriction Difficulty balancing Essential hypertension Gastric reflux High cholesterol History of arthritis History of echocardiogram History of edema History of pain when walking History of renal disease History of stomach ulcers History of stress test Hyperlipidemia Hypertension Injury of head and neck Insulin dependent diabetes mellitus Knee pain Lumbar stenosis Migraine headache Obesity Shortness of breath on exertion Shoulder pain Sleep apnea Smoker Strain of muscle, fascia and tendon of pelvis, initial encounter Strain of right hip and thigh Strain of right inguinal region Strain of unspecified muscles, fascia and tendons at thigh level, right thigh, initial encounter Syncope Thyroid disease Type 2 diabetes mellitus Walker as ambulation aid Wears glasses Wears hearing aid Home Medications insulin glargine 100 unit/mL (3 mL) subcutaneous pen 37 unit SC DAILY 11/03/20 [History Last Taken 12/25/21] albuterol sulfate 90 mcg/actuation aerosol inhaler 2 puff INHALATION Q6H PRN 06/14/21 [History Last Taken 12/25/21] atorvastatin 80 mg tablet 80 mg PO QHS 06/14/21 [History Last Taken 12/23/21] budesonide-formoterol HFA 160 mcg-4.5 mcg/actuation aerosol inhaler 2 puff INHALATION BID 06/14/21 [History Last Taken 12/25/21] lisinopril 20 mg-hydrochlorothiazide 25 mg tablet 1 tab PO BID 06/14/21 [History Last Taken 12/25/21] pantoprazole 40 mg tablet,delayed release 40 mg PO DAILY 06/14/21 [History Last Taken 12/25/21] tizanidine 4 mg capsule 4 mg PO BID PRN 06/14/21 [History Last Taken 12/18/21] amitriptyline 100 mg PO QHS 11/27/21 [History Last Taken 12/25/21] ipratropium-albuterol 3 ml INHALATION 4X/DAY PRN 11/27/21 [History Last Taken 11/25/21] loratadine 10 mg PO DAILY 11/27/21 [History Last Taken 12/25/21] sennosides-docusate sodium [Stool Softener-Stimulant Laxat] 2 tab PO BID PRN PRN #0 tab 11/30/21 [Rx Last Taken Unknown] gabapentin 400 mg PO TIDCM 12/26/21 [History Last Taken Unknown] insulin lispro [Humalog KwikPen Insulin] See Protocol SUBCUT ACHS PRN 12/26/21 [History Last Taken Unknown] oxycodone 5 mg PO Q6H PRN 5 Days #16 tab 12/30/21 [Rx Last Taken Unknown] Allergy/AdvReac Type Severity Reaction Status Date / Time duloxetine [From Cymbalta] Allergy Unknown Verified 02/09/22 19:55 pregabalin [From Lyrica] Allergy Unknown Verified 02/09/22 19:55 Penicillins AdvReac Mild leaves a Verified 02/09/22 19:55 bad taste in her mouth. NSAIDS (Non-Steroidal AdvReac Upset Verified 02/09/22 19:55 Anti-Inflamma Stomach Family History (Updated 02/09/22 @ 22:[address] Flor Parks MD) Father Cancer Unclear type. Mother Lung cancer Concurrent tobacco use history. Surgical History History of ankle surgery History of History of carpal tunnel release History of hysterectomy History of open reduction and internal fixation (ORIF) procedure History of partial thyroidectomy Social History (Updated 02/09/22 @ 22:[address] Flor Parsk MD) household members: none Smoking Status: Current every day smoker tobacco type: cigarettes Smoking packs per day: 1 Smoking cigarettes per day: 20.0 alcohol intake: never substance use type: does not use Vital Signs Vital Signs Vital Signs: 02/09/22 19:53 02/09/22 21:49 02/09/22 22:29 Temperature 97.9 F 96.8 F L 98.1 F Temperature Source Oral Temporal Oral Pulse Rate 65 68 66 Respiratory Rate 15 23 H 20 H Respiratory Effort Respiratory Depth Respiratory Pattern Blood Pressure 139/68 H 143/113 H 187/93 H Blood Pressure [BP] Blood Pressure Mean 91 123 124 Blood Pressure Mean [BP] Blood Pressure Source Blood Pressure Position Blood Pressure Location Pulse Ox 100 99 98 Oxygen Delivery Method Room Air Room Air Room Air 02/09/22 22:45 02/09/22 23:00 02/10/22 00:24 Temperature 98.1 F Temperature Source Oral Pulse Rate 77 71 Respiratory Rate 20 H 20 H Respiratory Effort Normal Non-Labored Respiratory Depth Normal Respiratory Pattern Normal Normal Blood Pressure 183/84 H Blood Pressure [BP] Blood Pressure Mean 117 Blood Pressure Mean [BP] Blood Pressure Source Monitor Blood Pressure Position Left Lateral Blood Pressure Location Right Arm Pulse Ox 97 94 Oxygen Delivery Method Room Air Room Air Room Air 02/10/22 02:16 02/10/22 02:21 02/10/22 03:40 Temperature 98.2 F 97.7 F L Temperature Source Oral Oral Pulse Rate 71 71 76 Respiratory Rate 16 20 H Respiratory Effort Respiratory Depth Respiratory Pattern Blood Pressure 191/93 H 191/93 H 198/105 H Blood Pressure [BP] Blood Pressure Mean 125 136 Blood Pressure Mean [BP] Blood Pressure Source Monitor Monitor Blood Pressure Position Left Lateral Semi-Fowlers Blood Pressure Location Right Arm Right Arm Pulse Ox 96 100 Oxygen Delivery Method Room Air Room Air 02/10/22 06:58 02/10/22 07:05 02/10/22 08:09 Temperature Temperature Source Pulse Rate 100 99 Respiratory Rate 18 Respiratory Effort Normal Non-Labored Respiratory Depth Normal Respiratory Pattern Normal Blood Pressure Blood Pressure [BP] 199/85 H Blood Pressure Mean Blood Pressure Mean [BP] 123 Blood Pressure Source Blood Pressure Position Blood Pressure Location Pulse Ox 98 Oxygen Delivery Method Room Air Room Air 02/10/22 10:17 02/10/22 14:17 Temperature 97.6 F L 98.1 F Temperature Source Temporal Oral Pulse Rate 114 H 99 Respiratory Rate 18 18 Respiratory Effort Respiratory Depth Respiratory Pattern Blood Pressure 173/115 H 145/86 H Blood Pressure [BP] Blood Pressure Mean 134 105 Blood Pressure Mean [BP] Blood Pressure Source Monitor Monitor Blood Pressure Position Sitting Supine Blood Pressure Location Right Arm Left Arm Pulse Ox 97 95 Oxygen Delivery Method Room Air Room Air Weight Weight: 148 lb 12.992 oz Body Mass Index (BMI) 28.1 Physical Exam Const alert, oriented x3 and no apparent distress General Appearance: cooperative and comfortable HEENT normocephalic and head/scalp atraumatic Eyes EOMs intact bilaterally and conjunctivae normal Neck full ROM General: normal visual inspection Chest inspection of chest normal Resp normal respiratory effort and normal air movement Effort and Inspection: able to speak in complete sentences Cardio regular rate and peripheral pulses 2+ throughout GI soft to palpation, non-tender and non-distended Back/Spine Back/Spine Narrative: Patient has sensitivity to even light touch around her lumbar region and previous scar. 4 inch vertical scar noted in the lumbar midline which is well-healed. No erythema drainage or fluctuance Cervical Spine: cervical ROM normal Thoracic Spine / Upper Back: normal to inspection Extremity normal to inspection, full ROM, normal capillary refill, no clubbing, cyanosis or edema and no calf tenderness Skin no rashes or lesions noted General Skin Exam: no breakdown Neuro oriented x3, CN's II-XII intact bilaterally, moves all extremities, no focal motor deficits and deep tendon reflexes 2+ bilaterally Neuro Narrative: Patient describes mild tingling sensation globally in the bilateral lower extremities Motor Exam: strength 5/5 throughout and muscle tone normal throughout Lab / Micro Data Result Diagrams: 02/10/22 06:23 02/10/22 06:23 Labs: Laboratory Results - last 24 hr 02/09/22 20:17: WBC 5.9, RBC 4.53, Hgb 12.2, Hct 39.4, MCV 87.0, MCH 26.9 L, MCHC 31.0 L, RDW Std Deviation 49.9 H, RDW Coeff of Yudelka 16.1 H, Plt Count 459 H, MPV 9.7, Immature Gran % (Auto) 0.500, Neut % (Auto) 50.5, Lymph % (Auto) 37.8, [place] % (Auto) 8.5, Eos % (Auto) 2.4, Baso % (Auto) 0.3, Absolute Neuts (auto) 3.0, Absolute Lymphs (auto) 2.22, Nucleated RBC % 0, ESR 26 02/09/22 20:17: Sodium 136, Potassium 5.2 H, Chloride 112 H, Carbon Dioxide 20.0 L, Anion Gap 4 L, BUN 25 H, Creatinine 1.32 H, Estim Creat Clear Calc 35.48, Est GFR (MDRD) Af Amer 53 L, Est GFR (MDRD) Non-Af 44 L, BUN/Creatinine Ratio 18.9, Glucose 146 H, Calcium 9.5, C-React Prot Ext Range 15.90 H 02/09/22 21:50: Procalcitonin 30.10 H 02/10/22 00:13: POC Glucose 123 H 02/10/22 06:23: WBC 4.3 L, RBC 4.32, Hgb 11.5 L, Hct 37.0, MCV 85.6, MCH 26.6 L, MCHC 31.1 L, RDW Std Deviation 49.6 H, RDW Coeff of Yudelka 16.1 H, Plt Count 420, MPV 10.1, Immature Gran % (Auto) 0.200, Neut % (Auto) 80.4 H, Lymph % (Auto) 17.3 L, [place] % (Auto) 1.6, Eos % (Auto) 0.0, Baso % (Auto) 0.5, Absolute Neuts (auto) 3.4, Absolute Lymphs (auto) 0.74 L, Nucleated RBC % 0 02/10/22 06:23: Sodium 132 L, Potassium 4.9, Chloride 107, Carbon Dioxide 16.0 L, Anion Gap 9, BUN 21 H, Creatinine 0.95, Estim Creat Clear Calc 49.30, Est GFR (MDRD) Af Amer 78, Est GFR (MDRD) Non-Af 65, BUN/Creatinine Ratio 22.2 H, Glucose 253 H, Calcium 9.5, Total Bilirubin 0.30, AST 14 L, ALT 18, Alkaline Phosphatase 136 H, Total Protein 7.2, Albumin 3.2, Globulin 4.0, Albumin/Globulin Ratio 0.8 L 02/10/22 06:26: POC Glucose 251 H 02/10/22 11:19: POC Glucose 364 H 02/10/22 16:27: POC Glucose 359 H Assessment & Plan Assessment/Plan (1) Back pain: (2) Lumbar stenosis: PLAN: I had a lengthy discussion with the patient. She is currently resting comfortably and her pain is controlled. I recommend continued pain control and mobilization as tolerated. Plan for lumbar MRI tomorrow with and without contrast. Will review. She understands and agrees with the treatment plan.
[2022-02-10] MEDS: Atorvastatin Calcium 80 MG Tablet PO (22:09)
[2022-02-10] MEDS: Amitriptyline 100 MG Tablet PO (22:09)
[2022-02-10 22:30] LABS: Bedside Glucose 345 mg/dL (74-106)
[2022-02-11] VITALS (12 sets, daily range): BP systolic 101–156; BP diastolic 58–96; PULSE 77–110; RESP 16–20; TEMP 36.1–36.8; O2SAT 94–100
[2022-02-11] MEDS: oxyCODONE 5 MG Tablet 10 MG PO ×4 (04:50→21:29)
[2022-02-11 06:29] LABS: Absolute Lymphocyte Count 2.59 X10^3/uL (0.83-4.51); Absolute Neutrophil Count 1.7 X10^3/uL (2.0-7.7); Basophil# 0.02 X10^3/uL; Basophil% 0.4 % (0-1); Eosinophil# 0.13 X10^3/uL; Eosinophils% 2.6 % (0-5); Hematocrit 33.7 % (37-47); Hemoglobin 10.5 g/dL (12.0-15.0); Lymphocyte # 2.59 X10^3/ul (0.83-4.51); Mean Corp Hgb Conc 31.2 g/dL (32-36); Mean Corpuscular Hgb 27.2 pg (27.0-32.0); Mean Corpuscular Volume 87.3 fL (81-99); Mean Platelet Vol. 9.8 fl (6.2-12.0); Monocyte# 0.57 X10^3/uL; Monocyte% 11.2 % (0-10); NRBC Flagged by Analyzer 0 % (0-5); Neutrophil # 1.74 X10^3/uL (2.7-7.7); Neutrophil % 34.2 % (47-70); Platelet Count 373 K/mm3 (150-450); RBC Distribution Width CV 16.2 % (11.6-14.6); RBC Distribution Width SD 50.3 fl (35.1-43.9); Red Blood Count 3.86 M/mm3 (4.2-5.4); White Blood Count 5.1 K/mm3 (4.4-11.0)
[2022-02-11 06:56] LABS: Anion Gap 7 (5-15); BUN 27 mg/dL (7-18); BUN/Creat Ratio 30.6 RATIO (10-20); Calcium,Total 9.3 mg/dL (8.5-10.1); Chloride 104 mmol/L (98-107); Creatinine, Serum 0.88 mg/dL (0.55-1.02); EST Glomerular Filtration Rate 70 mL/min (>60); Est Glom Filt Rate - Afr Amer 85 mL/min (>60); Estimated Creatinine Clearance 53.22 ml/min; Glucose 209 mg/dL (74-106); Magnesium 1.7 mg/dL (1.6-2.6); Potassium 4.5 mmol/L (3.5-5.1); Sodium Level 134 mmol/L (136-145)
[2022-02-11] MEDS: Insulin Lispro 100 UNIT/ML INSULN.PEN SC ×4 (07:14→21:33)
[2022-02-11 07:20] LABS: Bedside Glucose 178 mg/dL (74-106)
[2022-02-11] MEDS: Ipratropium/Albuterol Sulfate 3 ML AMPUL.NEB INHALATION ×3 (07:29→20:11)
[2022-02-11] MEDS: tiZANidine HCl 2 MG Tablet 4 MG PO ×4 (08:10→21:28)
[2022-02-11] MEDS: Lisinopril 20 MG Tablet PO (08:10)
[2022-02-11] MEDS: Pantoprazole Sodium 40 MG Tablet PO (08:11)
[2022-02-11] MEDS: Loratadine 10 MG Tablet PO (08:11)
[2022-02-11] MEDS: Enoxaparin 40 MG/0.4 ML Syringe SC ×2 (08:11→21:28)
[2022-02-11] MEDS: Lidocaine 5% Patch 2 PATCH TOPICAL (08:11)
[2022-02-11] MEDS: hydroCHLOROthiazide 25 MG Tablet PO (08:11)
[2022-02-11] MEDS: Insulin Glargine-YFGN 100 UNIT/ML Pen 42 UNIT SC (08:12)
[2022-02-11] MEDS: Acetaminophen 325 MG Tablet 650 MG PO (08:13)
[2022-02-11] MEDS: HYDROmorphone 1 MG/ML Syringe IV ×2 (08:13→14:01)
[2022-02-11] MEDS: Gabapentin 600 MG Tablet PO ×3 (08:17→16:47)
--- NOTE | 2022-02-11 08:32 | PN.HOSP_ITS ---
Subjective Subjective still with significant back going across her hips posteriorly Objective Data Objective Data Vital Signs: Vital Signs Temp Pulse Resp BP Pulse Ox 36.1 C L 86 18 129/86 H 100 02/11/22 08:05 02/11/22 08:05 02/11/22 08:05 02/11/22 08:05 02/11/22 08:05 Oxygen Delivery Method Room Air Weight: 67.5 kg Body Mass Index (BMI) 28.1 Intake & Output: Intake and Output for Last 24 Hours 02/09/22 02/10/22 02/11/22 23:59 23:59 23:59 Intake Total 427.5 / 427.5 1000 / 1200 200 / 200 Balance 427.5 / 427.5 1000 / 1200 200 / 200 Lab / Micro Data Result Diagrams: 02/11/22 06:07 02/11/22 06:07 Labs: Laboratory Results - last 24 hr 02/10/22 11:19: POC Glucose 364 H 02/10/22 16:27: POC Glucose 359 H 02/10/22 22:06: POC Glucose 345 H 02/11/22 06:07: WBC 5.1, RBC 3.86 L, Hgb 10.5 L, Hct 33.7 L, MCV 87.3, MCH 27.2, MCHC 31.2 L, RDW Std Deviation 50.3 H, RDW Coeff of Yudelka 16.2 H, Plt Count 373, MPV 9.8, Immature Gran % (Auto) 0.600, Neut % (Auto) 34.2 L, Lymph % (Auto) 51.0 H, [place] % (Auto) 11.2 H, Eos % (Auto) 2.6, Baso % (Auto) 0.4, Absolute Neuts (auto) 1.7 L, Absolute Lymphs (auto) 2.59, Nucleated RBC % 0 02/11/22 06:07: Sodium 134 L, Potassium 4.5, Chloride 104, Carbon Dioxide 23.0, Anion Gap 7, BUN 27 H, Creatinine 0.88, Estim Creat Clear Calc 53.22, Est GFR (MDRD) Af Amer 85, Est GFR (MDRD) Non-Af 70, BUN/Creatinine Ratio 30.6 H, Glucose 209 H, Calcium 9.3, Magnesium 1.7 02/11/22 07:13: POC Glucose 178 H Physical Exam Const alert Constitutional Narrative: anxious Resp normal respiratory effort, no retractions, no use of accessory muscles and clear to auscultation bilaterally Cardio regular rate, regular rhythm, S1 normal heart sound and S2 normal heart sound GI normal to inspection, nondistended, normoactive bowel sounds, soft to palpation and non-distended Extremity normal to inspection Assessment & Plan Assessment/Plan (1) Intractable back pain: PLAN: Patient is a 56-year-old lady with history of lumbar fusion surgery in September [address] Medellin who was evaluated in December and managed as a case of osteomyelitis involving the lumbar spine. Patient was discharged home with 6 weeks of IV antibiotics. Presented back to the emergency department with intractable back pain. Patient did receive antibiotics in the ED with Vanco and Rocephin and subsequently admitted for inpatient evaluation. Repeat imaging studies with MRI ordered. Consultation placed to orthopedic surgery Dr. Medellin 1. Intractable back pain * Patient has history of lumbar fusion surgery in September 2021 and was managed as a case of osteomyelitis involving the lumbar spine. * Ortho spine following * MRI lumbar spine ordered. * on IV methylprednisolone 2. Recent osteomyelitis involving the lumbar spine * Patient was managed with 6 weeks of antibiotic therapy with vancomycin and Rocephin * Patient did receive antibiotics in the ED with vancomycin and Rocephin. Subsequently held off following her admission pending evaluation by Ortho and ID 3. 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 Diabetes mellitus type II * uncontrolled due to steroids * on glargine 42/daily. SSI * Placed on long acting insulin, Accu-Cheks a.c. and at bedtime and covered with sliding scale insulin 5. Hypertension * Blood pressure controlled, home medications continued with dose adjustment as needed 6. Dyslipidemia * Patient is on statin therapy, continued at home dose 7. Diabetic polyneuropathy * Patient is on gabapentin did continue 8. Tobacco dependence * Counseled on cessation, offered nicotine patch for tobacco cravings 9. COPD * Did continue patient home aerosol and bronchodilator treatment regimen 10. Mild hyponatremia * Possibly related to SIADH from pain 11. DVT prophylaxis * SC Lovenox Charges/Coding Visit Charges OBSV E&M: 76079 Subsequent observation care L2
[2022-02-11 12:10] LABS: Bedside Glucose 306 mg/dL (74-106)
--- NOTE | 2022-02-11 13:34 | PCM.CONS.GEN ---
Assessment & Plan Assessment/Plan (1) Intractable back pain: PLAN: Recently completed 6 weeks iv vanc without improvement. MRI pending. Holding off on abx at this time Will follow, thank you HPI Consult Data Date of Consult: 02/11/22 HPI Narrative HPI Narrative: MILY CHILDRESS, is a 56 F who presented 02/09 with ongoing severe lower back pain. Legs will sometimes give out on her. No fever, no night sweats. Recently completed 6 week empiric course of iv vanc, picc was removed end of last week; bone biopsy prior to that had neg cxs. On 09/27/[address] Medellin w/ L4-5 lumbar interbody fusion with insertion of intervertebral mechanical device with structural allograft fusion as well as L4 bilateral laminectomy decompression with bilateral nerve root, L4-5 posterior lateral fusion and pedicle screw fixation. Abx held off on here, MRI pending. Full ROS performed and neg except as noted above. [facility] Medical History Anxiety Arthritis Asthma Back pain Back pain Cardiology follow-up encounter Chronic neck and back pain COPD (chronic obstructive pulmonary disease) Coronary artery calcification seen on CAT scan CPAP (continuous positive airway pressure) dependence Depression Diabetes Dietary restriction Difficulty balancing Essential hypertension Gastric reflux High cholesterol History of arthritis History of echocardiogram History of edema History of pain when walking History of renal disease History of stomach ulcers History of stress test Hyperlipidemia Hypertension Injury of head and neck Insulin dependent diabetes mellitus Knee pain Lumbar stenosis Migraine headache Obesity Shortness of breath on exertion Shoulder pain Sleep apnea Smoker Strain of muscle, fascia and tendon of pelvis, initial encounter Strain of right hip and thigh Strain of right inguinal region Strain of unspecified muscles, fascia and tendons at thigh level, right thigh, initial encounter Syncope Thyroid disease Type 2 diabetes mellitus Walker as ambulation aid Wears glasses Wears hearing aid Home Medications insulin glargine 100 unit/mL (3 mL) subcutaneous pen 37 unit SC DAILY 11/03/20 [History Last Taken 12/25/21] albuterol sulfate 90 mcg/actuation aerosol inhaler 2 puff INHALATION Q6H PRN 06/14/21 [History Last Taken 12/25/21] atorvastatin 80 mg tablet 80 mg PO QHS 06/14/21 [History Last Taken 12/23/21] budesonide-formoterol HFA 160 mcg-4.5 mcg/actuation aerosol inhaler 2 puff INHALATION BID 06/14/21 [History Last Taken 12/25/21] lisinopril 20 mg-hydrochlorothiazide 25 mg tablet 1 tab PO BID 06/14/21 [History Last Taken 12/25/21] pantoprazole 40 mg tablet,delayed release 40 mg PO DAILY 06/14/21 [History Last Taken 12/25/21] tizanidine 4 mg capsule 4 mg PO BID PRN 06/14/21 [History Last Taken 12/18/21] amitriptyline 100 mg PO QHS 11/27/21 [History Last Taken 12/25/21] ipratropium-albuterol 3 ml INHALATION 4X/DAY PRN 11/27/21 [History Last Taken 11/25/21] loratadine 10 mg PO DAILY 11/27/21 [History Last Taken 12/25/21] sennosides-docusate sodium [Stool Softener-Stimulant Laxat] 2 tab PO BID PRN PRN #0 tab 11/30/21 [Rx Last Taken Unknown] gabapentin 400 mg PO TIDCM 12/26/21 [History Last Taken Unknown] insulin lispro [Humalog KwikPen Insulin] See Protocol SUBCUT ACHS PRN 12/26/21 [History Last Taken Unknown] oxycodone 5 mg PO Q6H PRN 5 Days #16 tab 12/30/21 [Rx Last Taken Unknown] Allergy/AdvReac Type Severity Reaction Status Date / Time duloxetine [From Cymbalta] Allergy Unknown Verified 02/09/22 19:55 pregabalin [From Lyrica] Allergy Unknown Verified 02/09/22 19:55 Penicillins AdvReac Mild leaves a Verified 02/09/22 19:55 bad taste in her mouth. NSAIDS (Non-Steroidal AdvReac Upset Verified 02/09/22 19:55 Anti-Inflamma Stomach Family History (Updated 02/09/22 @ 22:[address] Flor Parks MD) Father Cancer Unclear type. Mother Lung cancer Concurrent tobacco use history. Surgical History History of ankle surgery History of History of carpal tunnel release History of hysterectomy History of open reduction and internal fixation (ORIF) procedure History of partial thyroidectomy Social History (Updated 02/09/22 @ 22:[address] Flor Parks MD) household members: none Smoking Status: Current every day smoker tobacco type: cigarettes Smoking packs per day: 1 Smoking cigarettes per day: 20.0 alcohol intake: never substance use type: does not use Physical Exam Const alert and no apparent distress General Appearance: cooperative Exam Limitations: no limitations HEENT normocephalic and head/scalp atraumatic Eyes PERRL and EOMs intact bilaterally Neck supple and No nodes Resp normal air movement and clear to auscultation bilaterally Cardio regular rate and regular rhythm GI soft to palpation, non-tender and non-distended Extremity no clubbing, cyanosis or edema Skin no rashes or lesions noted Neuro CN's II-XII intact bilaterally Lab / Micro Data Result Diagrams: 02/11/22 06:07 02/11/22 06:07 Labs: Laboratory Results - last 24 hr 02/10/22 16:27: POC Glucose 359 H 02/10/22 22:06: POC Glucose 345 H 02/11/22 06:07: WBC 5.1, RBC 3.86 L, Hgb 10.5 L, Hct 33.7 L, MCV 87.3, MCH 27.2, MCHC 31.2 L, RDW Std Deviation 50.3 H, RDW Coeff of Yudelka 16.2 H, Plt Count 373, MPV 9.8, Immature Gran % (Auto) 0.600, Neut % (Auto) 34.2 L, Lymph % (Auto) 51.0 H, [place] % (Auto) 11.2 H, Eos % (Auto) 2.6, Baso % (Auto) 0.4, Absolute Neuts (auto) 1.7 L, Absolute Lymphs (auto) 2.59, Nucleated RBC % 0 02/11/22 06:07: Sodium 134 L, Potassium 4.5, Chloride 104, Carbon Dioxide 23.0, Anion Gap 7, BUN 27 H, Creatinine 0.88, Estim Creat Clear Calc 53.22, Est GFR (MDRD) Af Amer 85, Est GFR (MDRD) Non-Af 70, BUN/Creatinine Ratio 30.6 H, Glucose 209 H, Calcium 9.3, Magnesium 1.7 02/11/22 07:13: POC Glucose 178 H 02/11/22 11:59: POC Glucose 306 H
[2022-02-11] MEDS: 0.9% Saline Lock 10 ML Syringe IV ×2 (14:01→21:30)
[2022-02-11 16:45] LABS: Bedside Glucose 195 mg/dL (74-106)
[2022-02-11] MEDS: Senna/Docusate Sodium 1 Tablet 2 TABLET PO (16:51)
[2022-02-11] MEDS: Atorvastatin Calcium 80 MG Tablet PO (21:28)
[2022-02-11] MEDS: Amitriptyline 100 MG Tablet PO (21:28)
[2022-02-11 23:31] LABS: Bedside Glucose 268 mg/dL (74-106)
[2022-02-12] VITALS (8 sets, daily range): BP systolic 105–148; BP diastolic 74–94; PULSE 84–96; RESP 16–20; TEMP 36.4–37.1; O2SAT 94–100
[2022-02-12] MEDS: oxyCODONE 5 MG Tablet 10 MG PO ×5 (02:28→22:02)
[2022-02-12] MEDS: Insulin Lispro 100 UNIT/ML INSULN.PEN SC ×3 (06:52→15:26)
[2022-02-12 07:06] LABS: Bedside Glucose 280 mg/dL (74-106)
[2022-02-12] MEDS: Ipratropium/Albuterol Sulfate 3 ML AMPUL.NEB INHALATION ×3 (07:15→19:32)
--- NOTE | 2022-02-12 07:17 | CPS ---
Pt's PAP machine at home is broke, she isn't interested in wearing [facility] PAP machine @this time.
[2022-02-12] MEDS: Lidocaine 5% Patch 2 PATCH TOPICAL (07:29)
--- NOTE | 2022-02-12 07:29 | PN.HOSP_ITS ---
Subjective Subjective Still with back pain. Objective Data Objective Data Vital Signs: Vital Signs Temp Pulse Resp BP Pulse Ox 36.9 C 84 20 H 148/87 H 96 02/12/22 02:24 02/12/22 07:17 02/12/22 07:17 02/12/22 02:24 02/12/22 07:17 Oxygen Delivery Method Room Air Weight: 69 kg Body Mass Index (BMI) 28.1 Intake & Output: Intake and Output for Last 24 Hours 02/10/22 02/11/22 02/12/22 23:59 23:59 23:59 Intake Total 1000 / 1200 2800 / 2800 Balance 1000 / 1200 2800 / 2800 Lab / Micro Data Result Diagrams: 02/11/22 06:07 02/11/22 06:07 Labs: Laboratory Results - last 24 hr 02/11/22 11:59: POC Glucose 306 H 02/11/22 16:38: POC Glucose 195 H 02/11/22 21:32: POC Glucose 268 H 02/12/22 06:50: POC Glucose 280 H Physical Exam Const Constitutional Narrative: becomes tearful when told she appears to still have osteomyeltitis. Resp normal respiratory effort, no retractions, no use of accessory muscles and clear to auscultation bilaterally Cardio regular rate, regular rhythm, S1 normal heart sound and S2 normal heart sound GI normal to inspection, nondistended, normoactive bowel sounds and soft to palpation Assessment & Plan Assessment/Plan (1) Intractable back pain: PLAN: Patient is a 56-year-old lady with history of lumbar fusion surgery in September [address] Medellin who was evaluated in December and managed as a case of osteomyelitis involving the lumbar spine. Patient was discharged home with 6 weeks of IV antibiotics. Presented back to the emergency department with intractable back pain. Patient did receive antibiotics in the ED with Vanco and Rocephin and subsequently admitted for inpatient evaluation. Repeat imaging studies with MRI ordered. Consultation placed to orthopedic surgery Dr. Medellin 1. Intractable back pain * Patient has history of lumbar fusion surgery in September 2021 and was managed as a case of osteomyelitis involving the lumbar spine. * Ortho spine following * MRI lumbar spine completed, report pending * DC IV solumedrol given osteomyelitis 2. Osteomyelitis involving the lumbar spine * Patient was managed with 6 weeks of antibiotic therapy with vancomycin and Rocephin * Patient did receive antibiotics in the ED with vancomycin and Rocephin. * Seen on MRI * GALINA Cross. Advises biopsy. Hold abx until bx could be performed. * GALINA Rodney: not amenable to CT-guided biopsy * Left message with Dr. Medellin 3. 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 Diabetes mellitus type II * uncontrolled due to steroids * on glargine 42/daily. SSI * Placed on long acting insulin, Accu-Cheks a.c. and at bedtime and covered with sliding scale insulin 5. Hypertension * Blood pressure controlled, home medications continued with dose adjustment as needed 6. Dyslipidemia * Patient is on statin therapy, continued at home dose 7. Diabetic polyneuropathy * Patient is on gabapentin did continue 8. Tobacco dependence * Counseled on cessation, offered nicotine patch for tobacco cravings 9. COPD * Did continue patient home aerosol and bronchodilator treatment regimen 10. Mild hyponatremia * Possibly related to SIADH from pain 11. DVT prophylaxis * SC Lovenox Charges/Coding Visit Charges Inpatient E&M: 05760 Subs Hosp L2
[2022-02-12] MEDS: Gabapentin 600 MG Tablet PO ×3 (07:33→17:34)
[2022-02-12] MEDS: hydroCHLOROthiazide 25 MG Tablet PO ×2 (07:34→21:04)
[2022-02-12] MEDS: Pantoprazole Sodium 40 MG Tablet PO (07:34)
[2022-02-12] MEDS: Loratadine 10 MG Tablet PO (07:34)
[2022-02-12] MEDS: Lisinopril 20 MG Tablet PO ×2 (07:34→21:04)
[2022-02-12] MEDS: tiZANidine HCl 2 MG Tablet 4 MG PO ×4 (07:34→21:03)
[2022-02-12] MEDS: Enoxaparin 40 MG/0.4 ML Syringe SC ×2 (07:35→21:03)
[2022-02-12] MEDS: Insulin Glargine-YFGN 100 UNIT/ML Pen 42 UNIT SC (09:08)
--- NOTE | 2022-02-12 10:09 | PCM.PN.ID ---
Physical Exam Narrative C/o severe ongoing pain. No fever. Const alert General Appearance: cooperative Resp normal air movement and clear to auscultation bilaterally Cardio regular rate and regular rhythm GI soft to palpation, non-tender and non-distended Skin no rashes or lesions noted ID ID: Route of nutrition/ use of supplements: [] Nutritional Intake: [] IV Site: [] Zurita Catheter: [] Assessment & Plan Assessment/Plan (1) Intractable back pain: PLAN: Recently completed 6 weeks iv vanc without improvement. MRI showed possible L4-5 phlegmon. Holding off on abx at this time. May need open I&D/biopsy. Will follow, d/w Dr. Hale
--- NOTE | 2022-02-12 11:05 | CASEMGMT ---
RN NABOR SHEETMETAL PATTERNMAKER CM to room to meet with patient for initial transition planning/care coordination assessment. VERONICA TOMLIN introduced self and role at [facility]. Pt voices understanding and consents to assessment at this time. Pt sitting up in recliner chair in room in no distress at this time. Pt is A/O at this time and answers all questions appropriately. Care providers, pharmacy, and demographics verified/updated at this time. PCP:SHENA Fofana Specialists: Dr Rod. Pt had appt w/him scheduled for today that was cancelled. Dr Pantoja- [address]. Preferred Pharmacy: [facility] Retail Insurance:[facility] [employer]. Prescription Benefit: Yes LNOK: Mother, Betzy Miller. Daughter, Larissa. Living Arrangements: Lives alone in first-floor apt w/2 steps to enter. Independent w/ADL's. Able to do light home mgmt tasks. States she needs help w/cleaning. Transportation: Pt does not drive. Utilizes public transportation, taxi, [facility] van transportation. Friends and family also help w/transportation. DME: States has the following DME: rollator, nebulizer, functioning glucometer w/supplies. Pt used to wear a PAP, that she got when she lived in [place]. She states it broke about 8 yrs ago and she has not worn one since. VERONICA TOMLIN advised her to f/u w/SHENA Landry re: PAP, as sleep studies will most likely need to be repeated. Pt voices understanding. Pt states no need for further DME at this time. HHC/SNF: Pt has been to [facility] in the past. Pt just recently finished 6 wks IV atb's. She had [facility] and [facility] for infusion co. Pt states, if IV atb's are needed at d/c, she would like [facility] and [facility] again. Pt was also in the process of starting OP therapy @ [facility], and would like to resume with that plan as well. Pt wishes to return home and states has no concerns with going home at time of discharge. Pt tearful re: on-going infection/medical concerns since surgery in September. She also voices concern about her puppy @ home. She states her neighbors have been helping w/caring for the puppy, but she is anxious to get back home to care for it. Emotional support/active listening provided. CM to follow for any further discharge planning/needs. Pt voices no further concerns/needs at this time. Advised pt to ask for CM if any further questions/concerns/needs arise. Voices understanding. PLAN: Home w/HHC if IV atb's are needed @ d/c. Noe LIN RN CM
[2022-02-12] MEDS: Acetaminophen 325 MG Tablet 650 MG PO (11:15)
[2022-02-12 11:25] LABS: Bedside Glucose 204 mg/dL (74-106)
--- NOTE | 2022-02-12 11:30 | CASEMGMT ---
Social Work Note SW received referral that pt would like information/resources on community help. SW in to speak with pt. SW introduced self and role at [facility]. Pt is alert and orientated, sitting in chair. SW provided pt with [facility] and [facility] list. SW spoke with pt about [facility] and how this worker can make a referral for her. Pt agreeable. SW spoke with pt about her health. Pt states that she has back surgery in September and has had continued problems since then. Pt states she just finished antibiotics for Osteo and is being told she has Osteo again. Pt states that they talked about taking the Osteo out and having another surgery. Pt states that she is stressed and Overwhelmed. SW provided support to pt. Pt states that she see's a Psychiatrist named Stepan at [facility]. Pt states that she talks to Stepan on the phone. Pt states that she was talking to Stepan once a month but Stepan recently moved it to 1x every 3 months. Pt states that she needs to call Stepan and talk to him about going back to 1x a month and about being overwhelmed. SW asked pt if she is also seeing a counselor and pt states she is not. Pt states she just wants to keep talking to Stepan. Pt states that she has Anxiety, Depression and Stress. Pt states that she does take medication. Pt denied any history of suicidal/homicidal thoughts/plans/ideations. Pt denied any current suicidal/homicidal thoughts/plans/ideations. Pt states that she has good support and states that she has neighbors to help if needed. Pt states that she wanted to get back to work this summer and help her mom with the garden but has not been able to do so. SW informed pt that this worker will make referral to [facility]. Pt states understanding. SW to make referral to [facility]. Eden Escobedo ORACLE DATABASE ADMINISTRATOR, SUPPORT ASSISTANT
[2022-02-12] MEDS: HYDROmorphone 1 MG/ML Syringe IV ×3 (12:49→23:43)
[2022-02-12] MEDS: 0.9% Saline Lock 10 ML Syringe IV ×2 (12:49→19:41)
[2022-02-12] MEDS: fentaNYL 25 MCG Patch TD (15:23)
[2022-02-12 15:31] LABS: Bedside Glucose 202 mg/dL (74-106)
--- NOTE | 2022-02-12 15:55 | CASEMGMT ---
RN CM sent referral to [facility], patient's preferred HHC, for potential HHC at discharge for IV ATB. CM will continue to follow this patient and plan for a safe discharge.
[2022-02-12] MEDS: Amitriptyline 100 MG Tablet PO (21:03)
[2022-02-12] MEDS: Atorvastatin Calcium 80 MG Tablet PO (21:04)
[2022-02-12 22:51] LABS: Bedside Glucose 149 mg/dL (74-106)
[2022-02-13] VITALS (16 sets, daily range): BP systolic 73–145; BP diastolic 50–97; PULSE 80–100; RESP 16–18; TEMP 36.2–36.9; O2SAT 94–100; BMI 29.1
[2022-02-13] MEDS: oxyCODONE 5 MG Tablet 10 MG PO ×4 (05:54→22:37)
[2022-02-13] MEDS: Insulin Lispro 100 UNIT/ML INSULN.PEN SC ×2 (06:00→22:39)
[2022-02-13 06:07] LABS: Bedside Glucose 235 mg/dL (74-106)
[2022-02-13] MEDS: Lidocaine 5% Patch 2 PATCH TOPICAL (07:25)
[2022-02-13] MEDS: Enoxaparin 40 MG/0.4 ML Syringe SC ×2 (07:28→22:40)
[2022-02-13] MEDS: hydroCHLOROthiazide 25 MG Tablet PO ×2 (07:30→22:39)
[2022-02-13] MEDS: Pantoprazole Sodium 40 MG Tablet PO (07:30)
[2022-02-13] MEDS: tiZANidine HCl 2 MG Tablet 4 MG PO ×3 (07:30→22:39)
[2022-02-13] MEDS: Lisinopril 20 MG Tablet PO ×2 (07:30→22:41)
[2022-02-13] MEDS: Loratadine 10 MG Tablet PO (07:30)
[2022-02-13] MEDS: Gabapentin 600 MG Tablet PO ×3 (07:32→17:50)
[2022-02-13] MEDS: HYDROmorphone 1 MG/ML Syringe IV ×3 (07:33→20:13)
[2022-02-13] MEDS: 0.9% Saline Lock 10 ML Syringe IV ×3 (07:33→20:13)
--- NOTE | 2022-02-13 07:52 | PN.HOSP_ITS ---
Subjective Subjective Demanding to see Dr. Medellin, to know when her surgery will be and when she will receive her pain and anxiety medication. Patient was sleeping in chair and I woke her up when I entered. Objective Data Objective Data Vital Signs: Vital Signs Temp Pulse Resp BP Pulse Ox 36.9 C 96 18 145/89 H 99 02/13/22 03:54 02/13/22 03:54 02/13/22 03:54 02/13/22 03:54 02/13/22 03:54 Oxygen Delivery Method Room Air Weight: 70 kg Body Mass Index (BMI) 28.1 Intake & Output: Intake and Output for Last 24 Hours 02/11/22 02/12/22 02/13/22 23:59 23:59 23:59 Intake Total 2800 / 2800 1350 / 1850 650 / 650 Balance 2800 / 2800 1350 / 1850 650 / 650 Lab / Micro Data Result Diagrams: 02/11/22 06:07 02/11/22 06:07 Labs: Laboratory Results - last 24 hr 02/12/22 11:08: POC Glucose 204 H 02/12/22 15:21: POC Glucose 202 H 02/12/22 20:47: POC Glucose 149 H 02/13/22 05:57: POC Glucose 235 H Micro: Microbiology 02/09/22 20:30 Blood Culture (Wb) - Right Forearm Blood Culture - Preliminary No growth in 48 hours. 02/09/22 20:17 Blood Culture (Wb) - Anticubital Left Blood Culture - Preliminary No growth in 48 hours. Radiography Diagnostic Testing: Radiology Impression Lumbar Spine MRI 02/09/22 22:21 IMPRESSION: Postsurgical changes at L4-5. Hardware in good position. There is no evidence of epidural hematoma. Bone marrow signal changes at L3, L4, L5 suggesting osteomyelitis. Abnormal thickening and enhancement in the anterior space at L4-L5 suggesting phlegmon. Electronically Signed: Saray Lance MD at 7:40 EDT , ADDENDUM: 02/12/22 0818 IMPRESSION: Postsurgical changes at L4-5. Hardware in good position. There is no evidence of epidural hematoma. Bone marrow signal changes at L3, L4, L5 suggesting osteomyelitis. Abnormal thickening and enhancement in the anterior space at L4-L5 suggesting phlegmon. N.B. : The above Results were Read Back by Saray Lance MD to Iva Boucher RN, and understanding confirmed on 02/12/2022 08:11:51 (ET). Electronically Signed: Saray Lance MD at 7:40 EDT Reading Location ID and State: [facility] / [place] Tel , Service support , Physical Exam Const alert and no apparent distress Resp normal respiratory effort, no retractions, no use of accessory muscles and clear to auscultation bilaterally Cardio regular rate, regular rhythm and S1 normal heart sound GI normal to inspection, nondistended, normoactive bowel sounds, soft to palpation and non-tender Extremity normal to inspection Psych Mood & Affect: anxious Assessment & Plan Assessment/Plan (1) Intractable back pain: PLAN: Patient is a 56-year-old lady with history of lumbar fusion surgery in September [address] Medellin who was evaluated in December and managed as a case of osteomyelitis involving the lumbar spine. Patient was discharged home with 6 weeks of IV antibiotics. Presented back to the emergency department with intractable back pain. Patient did receive antibiotics in the ED with Vanco and Rocephin and subsequently admitted for inpatient evaluation. Repeat imaging studies with MRI ordered. Consultation placed to orthopedic surgery Dr. Medellin 1. Intractable back pain * Patient has history of lumbar fusion surgery in September 2021 and was managed as a case of osteomyelitis involving the lumbar spine. * Ortho spine following * MRI lumbar spine completed, report pending * DC IV solumedrol given osteomyelitis 2. Osteomyelitis involving the lumbar spine * Patient was managed with 6 weeks of antibiotic therapy with vancomycin and Rocephin * Patient did receive antibiotics in the ED with vancomycin and Rocephin. * Seen on MRI * GALINA Cross. Advises biopsy. Hold abx until bx could be performed. * GALINA Rodney: not amenable to CT-guided biopsy * Dr. Medellin plan for biopsy 3. 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 Diabetes mellitus type II * uncontrolled due to steroids * on glargine 42/daily. SSI * Placed on long acting insulin, Accu-Cheks a.c. and at bedtime and covered with sliding scale insulin 5. Hypertension * Blood pressure controlled, home medications continued with dose adjustment as needed 6. Dyslipidemia * Patient is on statin therapy, continued at home dose 7. Diabetic polyneuropathy * Patient is on gabapentin did continue 8. Tobacco dependence * Counseled on cessation, offered nicotine patch for tobacco cravings 9. COPD * Did continue patient home aerosol and bronchodilator treatment regimen 10. Mild hyponatremia * Possibly related to SIADH from pain 11. DVT prophylaxis * SC Lovenox Charges/Coding Visit Charges Inpatient E&M: 72616 Subs Hosp L2
--- NOTE | 2022-02-13 10:43 | EKG12_ITS ---
Test Reason : PREOP Blood Pressure : / mmHG Vent. Rate : 087 BPM Atrial Rate : 087 BPM P-R Int : 182 ms QRS Dur : 072 ms QT Int : 368 ms P-R-T Axes : 067 -26 050 degrees QTc Int : 442 ms Normal sinus rhythm Normal ECG When compared with ECG of 06-FEB-2022 08:35, No significant change was found Confirmed by EZIO CRABTREE, AMY ([id number]), business editor DIANA HAYES ([id number]) on 02/18/2022 1:09:47 PM Referred By: MARINO Confirmed By:AMY HOLGUIN MD
[2022-02-13 11:11] LABS: Bedside Glucose 124 mg/dL (74-106)
[2022-02-13] MEDS: Ipratropium/Albuterol Sulfate 3 ML AMPUL.NEB INHALATION ×2 (13:21→19:17)
--- NOTE | 2022-02-13 13:39 | CASEMGMT ---
VERONICA TOMLIN NOTE: RN NABOR spoke w/Kimmy @ [facility]. They did receive referral packet that was faxed yesterday. She states [facility] is not in-network w/pt's insurance, but they would be willing to accept pt as long as I is willing to do one-time contract w/them for SN. Call to [facility] @ [facility], infusion intake. She confirms they would be willing to do one-time contract for SN w/[facility] again, should pt need IV atb's @ discharge. NABOR will continue to follow. Noe TIPTONN VERONICA TOMLIN
--- NOTE | 2022-02-13 15:35 | CASEMGMT ---
Patient is interested in completing a Healthcare Power of Womens Volleyball Coach and Healthcare Living Will. SW stopped by patient's room and she was not in the room as she was getting a test done. SW will check back as able. Aby BARRERA
--- NOTE | 2022-02-13 16:00 | BONBX_PTH ---
PATIENT: MILY CHILDRESS LOC: [facility]3 U#:[id number] AGE/SX: 56/F ROOM: [place]317 RE02/12/[address]: Dr. Simeon Kenny MD : 1965 BED: 1 DIS: 02/18/2022 SPEC #: [id number] RECD: 02/13/22 16:57 STATUS: SHAUN REQ #: [id number] KELSEY: 02/13/22 16:[address]: Beck Medellin DEPT: SURGICAL PATHOLOGY RECD BY: Melanie Osipna ENTERED: 02/14/22 07:33 SP TYPE: Bone OTHR DR: MD Dr. Simeon Martinez MD Dr. Eric Jopperi, DO Dr. Beck Medellin, MD Gris [address] Dr[address] NP Tissues: Vertebra, NOS Procedures: Decalcification bone/plaque Surgery Specimen Level IV Comments: @ Ordering doctor for DEC edited from to DR.JWATTS Brie LUX at 02/14/22 1254 @ Ordering doctor for SUV edited from to DR.JWATTS Baird by JOSE J at 02/14/22 1254 @ Submitting doctor edited from to DR.JWATTS Brie LUX at 02/14/22 1254 HEADER OPERATION: Biopsy, bone, lumbar PRE-OP DIAGNOSIS: Back pain TISSUE SUBMITTED: Lumbar 3 bone biopsy MICROSCOPIC DIAGNOSIS Lumbar 3 bone, core biopsy: Pieces of bone, negative for malignancy. See comment. Hilary 02/15/2022 COMMENT Hematopoietic marrow with trilineage hematopoiesis is noted. Clinical correlation and appropriate follow up are necessary. MICROSCOPIC DESCRIPTION Slides are reviewed. GROSS DESCRIPTION Received in fixative is one container labeled with the patient's name and designated lumbar 3 bone biopsy. The specimen consists of multiple irregular fragments of bone that in aggregate measure 1 x 0.2 x 0.1 cm. The specimen is totally submitted in one cassette after decalcification. / NIGEL:jose 02/14/2022 TC:5 CPT: 81997, 00619
--- NOTE | 2022-02-13 16:11 | PCM.OPRPT ---
Problems Associated Problem List Diagnoses (1) Intractable back pain: (2) Osteomyelitis of lumbar spine: (3) Lumbar spondylosis: (4) Lumbar stenosis: (5) Degenerative disc disease, lumbar: Report of Operation Date of Procedure: 02/13/22 Pre-Operative Diagnosis: 1. Osteomyelitis L3, L4, L5 Post-Operative Diagnosis: 1. Osteomyelitis, L3, L4, L5 Surgery/Procedure Performed:: L3 percutaneous vertebral bone biopsy Description of Surgical Findings:: The patient is a 56-year-old female with intractable back and leg pain. Image studies confirm the above diagnoses. The patient opted for operative intervention understanding the risk to include but not limited to infection, bleeding, damage to nerves arteries and veins, possibility of spinal fluid leak, continued pain, need for further surgery, deep vein thrombosis, pulmonary embolism, heart attack, risk of stroke or . The patient was identified in the preoperative holding area. Informed consent was obtained. The patient was transferred to the operating suite. Once in the operating suite after the appropriate amount of sedation was given by anesthesia the patient was transferred to the operating table in the prone position. All bony prominences were padded accordingly. The lumbar spine was prepped and draped in a standard fashion. AP and lateral x-rays were used to cholo out the L3 pedicles. Skin and subcutaneous tissues were anesthetized with 1% lidocaine. A Jamshidi needle was used to enter the bilateral L3 pedicles. Appropriate placement was confirmed at all times in AP and lateral x-rays. Once the needles were placed, the trochars were removed and biopsies were taken. This was sent to the lab for culture and sensitivity as well as to pathology. The needles were then removed. The patient was given sterile dressings with gauze and tape. Sponge instrument and needle counts were correct at the end of the case. The patient tolerated the procedure well. She was transferred to the PACU in stable condition. Surgeon: Beck Medellin Type of Anesthesia: MAC Specimen's removed: L3 vertebral bone Estimated Blood Loss (mL): 1 cc Fluids Replaced: 400 cc Complications None Admit VTE Documentation VTE Present on Admission: No
[2022-02-13] MEDS: Lidocaine 1% (50 ml mdv) 50 ML Vial (16:30)
--- NOTE | 2022-02-13 16:35 | RAD_ITS ---
CLINICAL HISTORY: BONE BX Date: 02/13/2022 4:21 PM Date of : 1965 Images assigned to this order were provided in conjunction with a surgical procedure performed in the operating room/procedural suite. Please see operative report for details. Fluoroscopic images: 4 Fluoroscopic time: 12.4 seconds Cumulative dose: 0.69187, mGym2; 4.54; mGy Imaging documents localization for biopsy at the L3 level. Previous pedicle screw and posterior fixation at L4-5 again demonstrated. Refer to procedural note for complete description. Impressions: 1. Fluoroscopic guidance for surgical planning and confirmation Electronically Signed: Jeremiah Rene MD at 17:09 EDT , RAD/Lumbar Spine 2 or 3 Views IMPRESSION: undefined
[2022-02-13 17:05] LABS: Bedside Glucose 89 mg/dL (74-106)
[2022-02-13] MEDS: Acetaminophen 325 MG Tablet 650 MG PO ×2 (17:51→22:37)
[2022-02-13] MEDS: Amitriptyline 100 MG Tablet PO (22:39)
[2022-02-13] MEDS: Atorvastatin Calcium 80 MG Tablet PO (22:40)
[2022-02-13 22:51] LABS: Bedside Glucose 266 mg/dL (74-106)
[2022-02-14 05:34] VITALS: BP 99/67; PULSE 94; RESP 14; TEMP 36.8; O2SAT 94
[2022-02-14 05:55] LABS: Bedside Glucose 332 mg/dL (74-106)
[2022-02-14] MEDS: Insulin Lispro 100 UNIT/ML INSULN.PEN SC ×3 (06:25→17:33)
[2022-02-14 06:26] VITALS: BP 105/71
[2022-02-14] MEDS: HYDROmorphone 1 MG/ML Syringe IV ×3 (06:26→17:18)
--- NOTE | 2022-02-14 07:32 | PN.HOSP_ITS ---
Subjective Subjective Complains of lower extremity weakness and numbness. Patient states that today she has numbness from her back and her buttocks and in her thighs. She did not have this before. Objective Data Objective Data Vital Signs: Vital Signs Temp Pulse Resp BP Pulse Ox 36.8 C 94 14 105/71 94 02/14/22 05:34 02/14/22 05:34 02/14/22 05:34 02/14/22 06:26 02/14/22 05:34 Oxygen Flow Rate (L/min) 2 Oxygen Delivery Method Room Air Weight: 70.2 kg Body Mass Index (BMI) 29.1 Intake & Output: Intake and Output for Last 24 Hours 02/12/22 02/13/22 02/14/22 23:59 23:59 23:59 Intake Total 1350 / 1850 800 / 800 Balance 1350 / 1850 800 / 800 Lab / Micro Data Result Diagrams: 02/11/22 06:07 02/11/22 06:07 Labs: Laboratory Results - last 24 hr 02/13/22 11:00: POC Glucose 124 H 02/13/22 17:00: POC Glucose 89 02/13/22 22:35: POC Glucose 266 H 02/14/22 05:45: POC Glucose 332 H Micro: Microbiology 02/09/22 20:30 Blood Culture (Wb) - Right Forearm Blood Culture - Preliminary No growth in 48 hours. 02/09/22 20:17 Blood Culture (Wb) - Anticubital Left Blood Culture - Preliminary No growth in 48 hours. Radiography Diagnostic Testing: Radiology Impression Lumbar Spine X-Ray 02/13/22 16:35 IMPRESSION: undefined Physical Exam Const alert Constitutional Narrative: Anxious. Afebrile. Neuro Neuro Narrative: Muscle strength out of 5 in the lower extremities bilaterally. Diminished sensation on her left lower extremity. Assessment & Plan Assessment/Plan (1) Intractable back pain: PLAN: Patient is a 56-year-old lady with history of lumbar fusion surgery in September [address] Medellin who was evaluated in December and managed as a case of osteomyelitis involving the lumbar spine. Patient was discharged home with 6 weeks of IV antibiotics. Presented back to the emergency department with intractable back pain. Patient did receive antibiotics in the ED with Vanco and Rocephin and subsequently admitted for inpatient evaluation. Repeat imaging studies with MRI ordered. Consultation placed to orthopedic surgery Dr. Medellin 1. Intractable back pain * Patient has history of lumbar fusion surgery in September 2021 and was managed as a case of osteomyelitis involving the lumbar spine. * Ortho spine following * MRI lumbar spine completed, report pending * DC IV solumedrol given osteomyelitis * 02/14: Patient complaining of numbness in her buttocks and saddle anesthesia. We will repeat MRI to rule out any other acute issues such as cauda equina. Did discuss with the patient as she is clearly anxious that that certainly could be a possibility that she has just very worked up and having a lot of paresthesias. The reason I was concerned that that could be the case is that she was also complaining about in her upper extremities. Patient was observed picking up a cup of coffee with no tremulousness that is why I think that this is more anxiety. However given the known issues with her back it certainly prudent to rule out any other acute process. 2. Osteomyelitis involving the lumbar spine * Patient was managed with 6 weeks of antibiotic therapy with vancomycin and Rocephin * Patient did receive antibiotics in the ED with vancomycin and Rocephin. * Seen on MRI * L3 Vertebral bone biopsy performed 02/13 * Notified dr. Cross, he recommends cefepime and vancomycin 3. 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 Diabetes mellitus type II * uncontrolled due to steroids * on glargine 42/daily. SSI * Placed on long acting insulin, Accu-Cheks a.c. and at bedtime and covered with sliding scale insulin 5. Hypertension * Blood pressure controlled, home medications continued with dose adjustment as needed 6. Dyslipidemia * Patient is on statin therapy, continued at home dose 7. Diabetic polyneuropathy * Patient is on gabapentin did continue 8. Tobacco dependence * Counseled on cessation, offered nicotine patch for tobacco cravings 9. COPD * Did continue patient home aerosol and bronchodilator treatment regimen 10. Mild hyponatremia * Possibly related to SIADH from pain 11. DVT prophylaxis * SC Lovenox 12. Anxiety * Complicating care and recovery. Patient does require quite a bit of reassurance. I addressed this with the patient directly today that while acknowledging is informed to rule out a pathologic problem, I did state that her anxiety is certainly a factor in regards to her overall care management. * Start duloxetine. Which may potentially help some of her pain issues, too. Greater than 35 minutes of which greater than 50% time was counseling patient at bedside about anxiety and her back in about the work-up for her back as well. Additionally waiting on the culture results and that anticipated length of hospitalization will likely extend until next week as well to wait for the culture results to come back and wait for insurance approval for antibiotic management. Charges/Coding Visit Charges Inpatient E&M: 82954 Subs Hosp L3
[2022-02-14 07:52] VITALS: O2SAT 95
--- NOTE | 2022-02-14 09:52 | MRI_ITS ---
STUDY: MRI LUMBAR SPINE WITHOUT CONTRAST REASON FOR EXAM: Female, 56 years old. New LE paresthesias, h/o osteomyelitis, s/p recent bx TECHNIQUE: Standardized fat and water weighted pulse sequences were obtained in the sagittal and axial planes. COMPARISON: MRI of the lumbar spine dated FEBRUARY 11, 2022 and DECEMBER 21, 2021 FINDINGS: Normal lumbar lordosis. There is no substantial scoliosis. Normal conus medullaris that terminates at the T12-L1 level. No fractures or compression deformities. No new areas of signal abnormality or edema. L1-2: Normal endplates. Disc desiccation. Normal disc height and morphology. Normal bilateral facet joints. Normal central canal and bilateral lateral recesses. Normal bilateral intervertebral neural foramina. L2-3: Normal endplates. Disc desiccation. Normal disc height and morphology. Normal bilateral facet joints. Normal central canal and bilateral lateral recesses. Normal bilateral intervertebral neural foramina. L3-4: Reidentification of moderate sclerosis no and reactive signal of the L3 inferior endplate and vertebral body respectively. Mild disc desiccation and disc space narrowing and minimal anterior annular bulging/spur complex. Mild facet joint and ligament of flava hypertrophy contribute to mild central canal stenosis. Normal bilateral lateral recesses. Mild right foraminal stenosis. Normal left neural foramen. L4-5: Stable bilateral pedicle screws and interbody graft. Stable posterior decompressive defect. No change in diffuse edema in the paraspinous muscles at this level without a discrete abscess. Mild cortical thinning/erosion of both endplates, with edema, and intramedullary infiltration is consistent with vertebral osteomyelitis of L4 and L5. No change in small amount of anterior epidural fluid of the posterior cortex of the L4 vertebral body see image #9/15 series 2 and 9/15 series 4. No change in small amount of intradiscal fluid surrounding interbody graft and associated with posterior annular bulging asymmetric to the right combined with mild facet joint hypertrophy which results in moderate central canal stenosis. No change in mild to moderate bilateral foraminal stenosis with nerve root compression. L5-S1: No change in small amount of anterior epidural fluid posterior to the L5 vertebral body resulting and moderate central canal stenosis. No demonstrated osteomyelitis or discitis at L5-S1. Normal endplates. Normal disc height, hydration and morphology. Mild facet joint hypertrophy. Normal central canal and bilateral lateral recesses. Normal bilateral intervertebral neural foramina. Normal visualized sacral ala. The psoas muscles within the abdomen and pelvis are normal. Postoperative subcutaneous fluid and paraspinous muscle edema unchanged from the prior studies. MRI/Spine Lumbar (Routine) IMPRESSION: Vertebral osteomyelitis of the articular aspects of L4 and L5 1. Mild cortical thinning/erosion of both endplates, with edema, and intramedullary infiltration is consistent with vertebral osteomyelitis of L4 and L5. No change in small amount of anterior epidural fluid of the posterior cortex of the L4 vertebral body see image #/15 series 2 and / series 4. 2. No change in small amount of intradiscal fluid surrounding interbody graft and associated with posterior annular bulging asymmetric to the right combined with mild facet joint hypertrophy which results in moderate central canal stenosis 3. Liquefaction around the interbody graft at L4-L5 could be postoperative, reactive, or infectious in nature 4. L5-S1 No change in small amount of anterior epidural fluid posterior to the L5 vertebral body resulting and moderate central canal stenosis. No demonstrated osteomyelitis or discitis at L5-S1. Normal endplates. Normal disc height, hydration and morphology. Mild facet joint hypertrophy Electronically Signed: Aiden Feldman MD at 14:00 EDT Reading Location ID and State: [facility] / [place] , Service support ,
[2022-02-14] MEDS: Gabapentin 600 MG Tablet PO ×3 (09:55→17:18)
[2022-02-14] MEDS: 0.9% Saline Lock 10 ML Syringe IV ×3 (09:55→17:29)
[2022-02-14] MEDS: hydroCHLOROthiazide 25 MG Tablet PO ×2 (09:56→21:07)
[2022-02-14] MEDS: Lisinopril 20 MG Tablet PO ×2 (09:57→21:09)
[2022-02-14] MEDS: tiZANidine HCl 2 MG Tablet 4 MG PO ×4 (09:57→21:07)
[2022-02-14] MEDS: Pantoprazole Sodium 40 MG Tablet PO (09:57)
[2022-02-14] MEDS: Loratadine 10 MG Tablet PO (09:58)
[2022-02-14] MEDS: Enoxaparin 40 MG/0.4 ML Syringe SC ×2 (09:58→21:11)
[2022-02-14] MEDS: Lidocaine 5% Patch 2 PATCH TOPICAL (09:58)
--- NOTE | 2022-02-14 10:00 | PCM.PN.ID ---
Physical Exam Narrative Still severe back pain. No fever. Const alert General Appearance: cooperative Resp normal air movement and clear to auscultation bilaterally Cardio regular rate and regular rhythm GI soft to palpation, non-tender and non-distended Skin no rashes or lesions noted ID ID: Route of nutrition/ use of supplements: [] Nutritional Intake: [] IV Site: [] Zurita Catheter: [] Assessment & Plan Assessment/Plan (1) Intractable back pain: PLAN: Recently completed 6 weeks iv vanc without improvement. MRI showed possible L4-5 phlegmon. Now s/p repeat needle biopsy 02/13/22. Starting empiric vanc/cefepime while results pending. Will follow, d/w Dr. Hale
[2022-02-14] MEDS: Citalopram 20 MG Tablet PO (10:15)
[2022-02-14] MEDS: LORazepam 0.5 MG Tablet PO ×2 (10:15→21:02)
[2022-02-14] MEDS: oxyCODONE 5 MG Tablet 10 MG PO ×3 (10:25→21:01)
[2022-02-14] MEDS: Insulin Glargine-YFGN 100 UNIT/ML Pen 42 UNIT SC (10:31)
[2022-02-14 11:00] VITALS: BP 119/71; PULSE 79; RESP 16; TEMP 36.9; O2SAT 94
--- NOTE | 2022-02-14 12:30 | PCM.RX.CS ---
Consult Pharmacy has been consulted to manage selected antiobiotic: Vancomycin Type of Consult: New start Suspected Infection: Osteomyelitis Prior Doses of Antibiotics Received/Current Regimen: Received loading dose of 1750mg iv x 1 on 02.14.22 @0955 Labs: Sodium 134 mmol/L (136-145) L 02/11/22 06:07 Potassium 4.5 mmol/L (3.5-5.1) 02/11/22 06:07 Chloride 104 mmol/L (98-107) 02/11/22 06:07 Carbon Dioxide 23.0 mmol/L (21.0-32.0) 02/11/22 06:07 Anion Gap 7 (5-15) 02/11/22 06:07 BUN 27 mg/dL (7-18) H 02/11/22 06:07 Creatinine 0.88 mg/dL (0.55-1.02) 02/11/22 06:07 Est GFR (MDRD) Af Amer 85 mL/min (>60) 02/11/22 06:07 Est GFR (MDRD) Non-Af 70 mL/min (>60) 02/11/22 06:07 BUN/Creatinine Ratio 30.6 RATIO (10-20) H 02/11/22 06:07 Glucose 209 mg/dL (74-106) H 02/11/22 06:07 Microbiology: Microbiology 02/13/22 Unknown Bone - Back Gram Stain - Final 02/13/22 Unknown Bone - Back Wound Culture - Preliminary No growth-Final to follow 02/09/22 20:30 Blood Culture (Wb) - Right Forearm Blood Culture - Preliminary No growth in 48 hours. 02/09/22 20:17 Blood Culture (Wb) - Anticubital Left Blood Culture - Preliminary No growth in 48 hours. Weight used for dosin.2 kg Estimated Creatinine Clearance: 53 ml/min Goal Trough: 15-20 mcg/mL Pharmacy Plan for Drug Dosing: Review made of renal function, height and weight. Will begin dosing of 750mg iv q12h per policy. Trough level ordered for before 4th cumulative dose on 02.15.22. Pharmacy Service will continue to monitor and adjust dosing as required. Follow-Up Labs: Trough Vancomycin - 02.15.22 @2130 before 2200 dose
[2022-02-14 13:31] LABS: Bedside Glucose 253 mg/dL (74-106)
--- NOTE | 2022-02-14 16:06 | CASEMGMT ---
Social Work Met with patient in room to complete advanced directives. Patient states what are those. This social sciences research scientist counseled patient on advanced care planning. Patient states I don't need those. Patient declining to complete advanced directives. No further social work needs identified. Armando GRIFFITH, BRUCE-S
[2022-02-14 17:00] VITALS: BP 125/76; PULSE 82; RESP 16; TEMP 36.7; O2SAT 95
[2022-02-14 17:40] LABS: Bedside Glucose 231 mg/dL (74-106)
[2022-02-14 19:22] VITALS: RESP 18
[2022-02-14] MEDS: Ipratropium/Albuterol Sulfate 3 ML AMPUL.NEB INHALATION (19:22)
[2022-02-14] MEDS: Acetaminophen 325 MG Tablet 650 MG PO (21:02)
[2022-02-14] MEDS: Atorvastatin Calcium 80 MG Tablet PO (21:08)
[2022-02-14] MEDS: Amitriptyline 100 MG Tablet PO (21:08)
[2022-02-14 21:20] LABS: Bedside Glucose 91 mg/dL (74-106)
[2022-02-15] VITALS (7 sets, daily range): BP systolic 98–156; BP diastolic 37–89; PULSE 72–104; RESP 16–20; TEMP 36.4–36.9; O2SAT 94–100
[2022-02-15 06:15] LABS: Anion Gap 4 (5-15); BUN 34 mg/dL (7-18); BUN/Creat Ratio 30.6 RATIO (10-20); Calcium,Total 8.7 mg/dL (8.5-10.1); Chloride 103 mmol/L (98-107); Creatinine, Serum 1.11 mg/dL (0.55-1.02); EST Glomerular Filtration Rate 54 mL/min (>60); Est Glom Filt Rate - Afr Amer 65 mL/min (>60); Glucose 174 mg/dL (74-106); Potassium 4.7 mmol/L (3.5-5.1); Sodium Level 133 mmol/L (136-145)
[2022-02-15 06:40] LABS: Bedside Glucose 156 mg/dL (74-106)
[2022-02-15] MEDS: oxyCODONE 5 MG Tablet 10 MG PO ×3 (06:40→18:30)
[2022-02-15] MEDS: Acetaminophen 325 MG Tablet 650 MG PO (06:40)
[2022-02-15] MEDS: Ipratropium/Albuterol Sulfate 3 ML AMPUL.NEB INHALATION ×2 (07:05→18:53)
--- NOTE | 2022-02-15 07:13 | NURSING ---
Addendum entered by Linda Colvin 02/15/22 07:16: event happened around 20:00 02/14/22 Original Note: pt reports that fentanyl patch came off during shower. nurse unable to find patch after shower. no fentanyl patch visualized on pt.
--- NOTE | 2022-02-15 07:37 | PN.HOSP_ITS ---
Subjective Subjective Still with pain. Fentanyl patch had washed off with shower and replaced this AM. Despite that, still very uncortable. Objective Data Objective Data Vital Signs: Vital Signs Temp Pulse Resp BP Pulse Ox 36.6 C 86 16 98/60 95 02/15/22 03:16 02/15/22 03:16 02/15/22 03:16 02/15/22 03:16 02/15/22 03:16 Oxygen Flow Rate (L/min) 2 Oxygen Delivery Method Room Air Weight: 70 kg Body Mass Index (BMI) 29.1 Intake & Output: Intake and Output for Last 24 Hours 02/13/22 02/14/22 02/15/22 23:59 23:59 23:59 Intake Total 800 / 800 1000 / 1000 100 / 100 Balance 800 / 800 1000 / 1000 100 / 100 Lab / Micro Data Result Diagrams: 02/11/22 06:07 02/15/22 05:12 Labs: Laboratory Results - last 24 hr 02/14/22 13:24: POC Glucose 253 H 02/14/22 17:32: POC Glucose 231 H 02/14/22 21:15: POC Glucose 91 02/15/22 05:12: Sodium 133 L, Potassium 4.7, Chloride 103, Carbon Dioxide 26.0, Anion Gap 4 L, BUN 34 H, Creatinine 1.11 H, Estim Creat Clear Calc 42.20, Est GFR (MDRD) Af Amer 65, Est GFR (MDRD) Non-Af 54 L, BUN/Creatinine Ratio 30.6 H, Glucose 174 H, Calcium 8.7 02/15/22 06:34: POC Glucose 156 H Micro: Microbiology 02/13/22 Unknown Bone - Back Gram Stain - Final 02/13/22 Unknown Bone - Back Wound Culture - Preliminary No growth-Final to follow 02/09/22 20:30 Blood Culture (Wb) - Right Forearm Blood Culture - Preliminary No growth in 48 hours. 02/09/22 20:17 Blood Culture (Wb) - Anticubital Left Blood Culture - Preliminary No growth in 48 hours. Radiography Diagnostic Testing: Radiology Impression Lumbar Spine MRI 02/14/22 09:52 IMPRESSION: Vertebral osteomyelitis of the articular aspects of L4 and L5 1. Mild cortical thinning/erosion of both endplates, with edema, and intramedullary infiltration is consistent with vertebral osteomyelitis of L4 and L5. No change in small amount of anterior epidural fluid of the posterior cortex of the L4 vertebral body see image #9/15 series 2 and 05/23 series 4. 2. No change in small amount of intradiscal fluid surrounding interbody graft and associated with posterior annular bulging asymmetric to the right combined with mild facet joint hypertrophy which results in moderate central canal stenosis 3. Liquefaction around the interbody graft at L4-L5 could be postoperative, reactive, or infectious in nature 4. L5-S1 No change in small amount of anterior epidural fluid posterior to the L5 vertebral body resulting and moderate central canal stenosis. No demonstrated osteomyelitis or discitis at L5-S1. Normal endplates. Normal disc height, hydration and morphology. Mild facet joint hypertrophy Electronically Signed: Aiden Feldman MD at 14:00 EDT , Physical Exam Const alert and no apparent distress HEENT head/scalp atraumatic, moist oral mucous membranes and oropharynx normal Head and Scalp: normocephalic Resp normal respiratory effort, no retractions, no use of accessory muscles and clear to auscultation bilaterally Cardio regular rate, regular rhythm, S1 normal heart sound and S2 normal heart sound GI normal to inspection, nondistended, normoactive bowel sounds, soft to palpation, non-tender and non-distended Extremity normal to inspection Psych Psych Narrative: better spirits today Mood & Affect: anxious Assessment & Plan Assessment/Plan (1) Intractable back pain: PLAN: Patient is a 56-year-old lady with history of lumbar fusion surgery in [address] Medellin who was evaluated in December and managed as a case of osteomyelitis involving the lumbar spine. Patient was discharged home with 6 weeks of IV antibiotics. Presented back to the emergency department with intractable back pain. Patient did receive antibiotics in the ED with Vanco and Rocephin and subsequently admitted for inpatient evaluation. Repeat imaging studies with MRI ordered. Consultation placed to orthopedic surgery Dr. Medellin 1. Intractable back pain * Patient has history of lumbar fusion surgery in September 2021 and was managed as a case of osteomyelitis involving the lumbar spine. * Ortho spine following * MRI lumbar spine completed, report pending * DC IV solumedrol given osteomyelitis * 02/14: Patient complaining of numbness in her buttocks and saddle anesthesia. We will repeat MRI to rule out any other acute issues such as cauda equina. Did discuss with the patient as she is clearly anxious that that certainly could be a possibility that she has just very worked up and having a lot of paresthesias. The reason I was concerned that that could be the case is that she was also complaining about in her upper extremities. Patient was observed picking up a cup of coffee with no tremulousness that is why I think that this is more anxiety. However given the known issues with her back it certainly prudent to rule out any other acute process. * 02/14: increase fentanyl patch from 25 to 50. 2. Osteomyelitis involving the lumbar spine * Patient was managed with 6 weeks of antibiotic therapy with vancomycin and Rocephin * Patient did receive antibiotics in the ED with vancomycin and Rocephin. * Seen on MRI * L3 Vertebral bone biopsy performed 02/13 * Notified dr. Cross, he recommends cefepime and vancomycin * 02/14: DW Dr. Medellin, pt will need to follow up. Eventually, she will need to have her hardware removed. 3. 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 Diabetes mellitus type II * uncontrolled due to steroids * on glargine 42/daily. SSI * Placed on long acting insulin, Accu-Cheks a.c. and at bedtime and covered with sliding scale insulin 5. Hypertension * Blood pressure controlled, home medications continued with dose adjustment as needed 6. Dyslipidemia * Patient is on statin therapy, continued at home dose 7. Diabetic polyneuropathy * Patient is on gabapentin did continue 8. Tobacco dependence * Counseled on cessation, offered nicotine patch for tobacco cravings 9. COPD * Did continue patient home aerosol and bronchodilator treatment regimen 10. Mild hyponatremia * Possibly related to SIADH from pain 11. DVT prophylaxis * SC Lovenox 12. Anxiety * Complicating care and recovery. Patient does require quite a bit of reassurance. I addressed this with the patient directly today that while acknowledging is informed to rule out a pathologic problem, I did state that her anxiety is certainly a factor in regards to her overall care management. * Stared citalopram 20 on 02/14. Charges/Coding Visit Charges Inpatient E&M: 07405 Subs Hosp L2
[2022-02-15] MEDS: Pantoprazole Sodium 40 MG Tablet PO (08:35)
[2022-02-15] MEDS: fentaNYL 25 MCG Patch TD (08:35)
[2022-02-15] MEDS: Citalopram 20 MG Tablet PO (08:35)
[2022-02-15] MEDS: Gabapentin 600 MG Tablet PO ×3 (08:35→16:42)
[2022-02-15] MEDS: Loratadine 10 MG Tablet PO (08:35)
[2022-02-15] MEDS: Lisinopril 20 MG Tablet PO ×2 (09:54→21:49)
[2022-02-15] MEDS: hydroCHLOROthiazide 25 MG Tablet PO ×2 (09:54→21:49)
[2022-02-15] MEDS: 0.9% Saline Lock 10 ML Syringe IV ×3 (09:55→21:46)
[2022-02-15] MEDS: Enoxaparin 40 MG/0.4 ML Syringe SC ×2 (09:55→21:48)
[2022-02-15] MEDS: HYDROmorphone 1 MG/ML Syringe IV ×2 (09:55→21:46)
[2022-02-15] MEDS: Insulin Glargine-YFGN 100 UNIT/ML Pen 42 UNIT SC (09:55)
[2022-02-15] MEDS: Insulin Lispro 100 UNIT/ML INSULN.PEN SC ×3 (11:47→21:48)
[2022-02-15 11:56] LABS: Bedside Glucose 264 mg/dL (74-106)
--- NOTE | 2022-02-15 12:33 | PN.ORTHO_ITS ---
Subjective Subjective The patient was seen and examined. She is up out of bed in her room. She is still complaining of low back pain and occasional vague paresthesias and pain in the lower extremities. She denies any acute changes in bowel or bladder function. I did discuss with the patient that cultures are still pending but everything is negative thus far. Infectious disease has started her on empiric Vanco and cefepime Objective Data Objective Data Vital Signs: Vital Signs Temp Pulse Resp BP Pulse Ox 97.6 F L 76 16 110/89 H 94 02/15/22 08:34 02/15/22 08:34 02/15/22 08:34 02/15/22 08:34 02/15/22 08:34 Oxygen Flow Rate (L/min) 2 Oxygen Delivery Method Room Air Weight: 154 lb 5.177 oz Body Mass Index (BMI) 29.1 Intake & Output: Intake and Output for Last 24 Hours 02/13/22 02/14/22 02/15/22 23:59 23:59 23:59 Intake Total 800 / 800 1000 / 1000 2365 / 2365 Balance 800 / 800 1000 / 1000 2365 / 2365 Lab / Micro Data Result Diagrams: 02/18/22 04:20 02/18/22 04:20 Labs: Laboratory Results - last 24 hr 02/14/22 13:24: POC Glucose 253 H 02/14/22 17:32: POC Glucose 231 H 02/14/22 21:15: POC Glucose 91 02/15/22 05:12: Sodium 133 L, Potassium 4.7, Chloride 103, Carbon Dioxide 26.0, Anion Gap 4 L, BUN 34 H, Creatinine 1.11 H, Estim Creat Clear Calc 42.20, Est GFR (MDRD) Af Amer 65, Est GFR (MDRD) Non-Af 54 L, BUN/Creatinine Ratio 30.6 H, Glucose 174 H, Calcium 8.7 02/15/22 06:34: POC Glucose 156 H 02/15/22 11:46: POC Glucose 264 H Micro: Microbiology 02/09/22 20:30 Blood Culture (Wb) - Right Forearm Blood Culture - Final No growth in 5 days. 02/09/22 20:17 Blood Culture (Wb) - Anticubital Left Blood Culture - Final No growth in 5 days. 02/13/22 Unknown Bone - Back Gram Stain - Final 02/13/22 Unknown Bone - Back Wound Culture - Preliminary No growth-Final to follow Radiography Diagnostic Testing: Radiology Impression Lumbar Spine MRI 02/14/22 09:52 IMPRESSION: Vertebral osteomyelitis of the articular aspects of L4 and L5 1. Mild cortical thinning/erosion of both endplates, with edema, and intramedullary infiltration is consistent with vertebral osteomyelitis of L4 and L5. No change in small amount of anterior epidural fluid of the posterior cortex of the L4 vertebral body see image #9/15 series 2 and 9/15 series 4. 2. No change in small amount of intradiscal fluid surrounding interbody graft and associated with posterior annular bulging asymmetric to the right combined with mild facet joint hypertrophy which results in moderate central canal stenosis 3. Liquefaction around the interbody graft at L4-L5 could be postoperative, reactive, or infectious in nature 4. L5-S1 No change in small amount of anterior epidural fluid posterior to the L5 vertebral body resulting and moderate central canal stenosis. No demonstrated osteomyelitis or discitis at L5-S1. Normal endplates. Normal disc height, hydration and morphology. Mild facet joint hypertrophy Electronically Signed: Aiden Feldman MD at 14:00 EDT Reading Location ID and State: [address] [place] [address] , Service support , Physical Exam Const alert, oriented x3 and no apparent distress General Appearance: cooperative and comfortable HEENT normocephalic and head/scalp atraumatic Eyes EOMs intact bilaterally and conjunctivae normal Neck full ROM General: normal visual inspection Chest inspection of chest normal Resp normal respiratory effort and normal air movement Effort and Inspection: able to speak in complete sentences Cardio regular rate and peripheral pulses 2+ throughout GI soft to palpation, non-tender and non-distended Back/Spine Back/Spine Narrative: Minimal tenderness of the thoracolumbar region. No cervical tenderness. Dressing clean dry and intact. No erythema drainage or fluctuance Cervical Spine: cervical ROM normal Thoracic Spine / Upper Back: normal to inspection Lumbar Spine / Lower Back: normal to inspection Extremity normal to inspection, full ROM, normal capillary refill, no clubbing, cyanosis or edema and no calf tenderness Skin no rashes or lesions noted General Skin Exam: no breakdown Neuro oriented x3, CN's II-XII intact bilaterally, moves all extremities and deep tendon reflexes 2+ bilaterally Neuro Narrative: The patient does describe mild decrease sensation in the bilateral thighs. No upper motor neuron signs present Motor Exam: strength 5/5 throughout and muscle tone normal throughout Assessment & Plan Assessment/Plan (1) Intractable back pain: (2) Osteomyelitis of lumbar spine: PLAN: I had a lengthy discussion with the patient. I reviewed the results of her cultures thus far which have been negative. She is started empirically on Vanco and cefepime by infectious disease. I do recommend pain control and mobilization as tolerated. I cannot recommend hardware removal at this time as I don't believe her fusion is solid enough yet to be stable. I will communicate with both the hospitalist and infectious disease to work-up a treatment plan. The patient understands and agrees (3) Lumbar spondylosis: (4) Lumbar stenosis: (5) Degenerative disc disease, lumbar:
--- NOTE | 2022-02-15 13:22 | PCM.PN.ID ---
Physical Exam Narrative Having pain in back, some swelling in ankles, no fever Const alert and no apparent distress General Appearance: cooperative Resp normal air movement and clear to auscultation bilaterally Cardio regular rate and regular rhythm GI soft to palpation, non-tender and non-distended Skin no rashes or lesions noted ID ID: Route of nutrition/ use of supplements: [] Nutritional Intake: [] IV Site: [] Zurita Catheter: [] Assessment & Plan Assessment/Plan (1) Intractable back pain: PLAN: Recently completed 6 weeks iv vanc without improvement. MRI showed possible L4-5 phlegmon. Now s/p repeat needle biopsy 02/13/22. Started empiric vanc/cefepime while results pending. Will follow
[2022-02-15] MEDS: tiZANidine HCl 2 MG Tablet 4 MG PO ×3 (13:35→21:49)
--- NOTE | 2022-02-15 13:39 | CASEMGMT ---
Addendum entered by Iveth Bartlett 02/15/22 14:10: Call placed to [facility] @ [facility]. She was made aware pt will not be discharging until sometime next week, as biopsy results are pending. Referral packet, including PICC insertion documentation as well as C order for SN faxed to [facility] so financial determination can be started. Original Note: VERONICA TOMLIN NOTE: Call placed to Kimmy @ [facility]. She was made aware pt will not be discharging until sometime next week, as biopsy results are pending. Per Kimmy, [place] [facility] [place] [facility], as she confirms they can do a one-time contract w/[employer]. Noe LIN RN CM
[2022-02-15 16:50] LABS: Bedside Glucose 220 mg/dL (74-106)
[2022-02-15] MEDS: Atorvastatin Calcium 80 MG Tablet PO (21:49)
[2022-02-15] MEDS: Amitriptyline 100 MG Tablet PO (21:54)
[2022-02-15 21:56] LABS: Bedside Glucose 279 mg/dL (74-106)
[2022-02-15] MEDS: Senna/Docusate Sodium 1 Tablet 2 TABLET PO (22:04)
[2022-02-15 22:10] LABS: Vancomycin, Trough Level 24.3 ug/mL (5.0-15.0)
--- NOTE | 2022-02-15 22:33 | PCM.RX.CS ---
Consult Pharmacy has been consulted to manage selected antiobiotic: Vancomycin Type of Consult: Follow-up Suspected Infection: Osteomyelitis Prior Doses of Antibiotics Received/Current Regimen: Medications Discontinued Medications Vancomycin HCl 750 mg/ Sodium (Chloride) 265 mls @ 250 mls/hr IV Q12H RICCI Last Admin: 02/15/22 22:17 Dose: Infused Documented by: Labs: Sodium 133 mmol/L (136-145) L 02/15/22 05:12 Potassium 4.7 mmol/L (3.5-5.1) 02/15/22 05:12 Chloride 103 mmol/L (98-107) 02/15/22 05:12 Carbon Dioxide 26.0 mmol/L (21.0-32.0) 02/15/22 05:12 Anion Gap 4 (5-15) L 02/15/22 05:12 BUN 34 mg/dL (7-18) H 02/15/22 05:12 Creatinine 1.11 mg/dL (0.55-1.02) H 02/15/22 05:12 Est GFR (MDRD) Af Amer 65 mL/min (>60) 02/15/22 05:12 Est GFR (MDRD) Non-Af 54 mL/min (>60) L 02/15/22 05:12 BUN/Creatinine Ratio 30.6 RATIO (10-20) H 02/15/22 05:12 Glucose 174 mg/dL (74-106) H 02/15/22 05:12 Vancomycin Trough 24.3 ug/mL (5.0-15.0) H 02/15/22 21:35 Microbiology: Microbiology 02/09/22 20:30 Blood Culture (Wb) - Right Forearm Blood Culture - Final No growth in 5 days. 02/09/22 20:17 Blood Culture (Wb) - Anticubital Left Blood Culture - Final No growth in 5 days. 02/13/22 Unknown Bone - Back Gram Stain - Final 02/13/22 Unknown Bone - Back Wound Culture - Preliminary No growth-Final to follow Weight used for dosin kg Estimated Creatinine Clearance: 42 Goal Trough: 15-20 mcg/mL Pharmacy Plan for Drug Dosing: Vancomycin trough level was high at 24.3. The current bag which had already been hung was stopped. A random vanco level will be drawn in 12 hours, and further dosing will be assessed at that time. Pharmacy Service will continue to monitor and adjust dosing as required. Follow-Up Labs: Trough Vancomycin - random Labs to be done on [date and time ordered]: 02/16/22 @1051
[2022-02-16 03:59] VITALS: BP 150/88; PULSE 86; RESP 18; TEMP 36.7; O2SAT 97
[2022-02-16] MEDS: oxyCODONE 5 MG Tablet 10 MG PO ×5 (04:02→22:53)
[2022-02-16] MEDS: 0.9% Saline Lock 10 ML Syringe IV ×4 (04:03→13:41)
[2022-02-16] MEDS: Insulin Lispro 100 UNIT/ML INSULN.PEN SC ×4 (06:04→22:51)
[2022-02-16] MEDS: HYDROmorphone 1 MG/ML Syringe IV (06:05)
[2022-02-16 06:15] LABS: Bedside Glucose 162 mg/dL (74-106)
[2022-02-16 06:55] VITALS: PULSE 81; RESP 18; O2SAT 98
[2022-02-16] MEDS: Ipratropium/Albuterol Sulfate 3 ML AMPUL.NEB INHALATION (06:55)
[2022-02-16] MEDS: Acetaminophen 325 MG Tablet 650 MG PO (08:13)
[2022-02-16] MEDS: Gabapentin 600 MG Tablet PO ×3 (08:13→18:56)
--- NOTE | 2022-02-16 08:23 | PN.HOSP_ITS ---
Subjective Subjective Still with pain. Discussed with nursing the patient would be asking for hydromorphone and oxycodone simultaneously. Objective Data Objective Data Vital Signs: Vital Signs Temp Pulse Resp BP Pulse Ox 36.7 C 81 18 150/88 H 98 02/16/22 03:59 02/16/22 06:55 02/16/22 06:55 02/16/22 03:59 02/16/22 06:55 Oxygen Flow Rate (L/min) 2 Oxygen Delivery Method Room Air Weight: 70.1 kg Body Mass Index (BMI) 29.1 Intake & Output: Intake and Output for Last 24 Hours 02/14/22 02/15/22 02/16/22 23:59 23:59 23:59 Intake Total 1000 / 1000 3294.17 / 3294.17 100 / 100 Balance 1000 / 1000 3294.17 / 3294.17 100 / 100 Lab / Micro Data Result Diagrams: 02/11/22 06:07 02/16/22 09:00 Labs: Laboratory Results - last 24 hr 02/15/22 11:46: POC Glucose 264 H 02/15/22 16:41: POC Glucose 220 H 02/15/22 21:35: Vancomycin Trough 24.3 H 02/15/22 21:39: POC Glucose 279 H 02/16/22 06:03: POC Glucose 162 H Micro: Microbiology 02/09/22 20:30 Blood Culture (Wb) - Right Forearm Blood Culture - Final No growth in 5 days. 02/09/22 20:17 Blood Culture (Wb) - Anticubital Left Blood Culture - Final No growth in 5 days. 02/13/22 Unknown Bone - Back Gram Stain - Final 02/13/22 Unknown Bone - Back Wound Culture - Preliminary No growth-Final to follow Physical Exam Const alert and no apparent distress Constitutional Narrative: Up in chair brushing her hair. When she sees me then she suddenly becomes very exasperated. Extremity Extremity Narrative: Biopsy sites have small bandages but no discharge noted nor any bleeding. Neuro Neuro Narrative: Does have some giveaway weakness on her left side. Assessment & Plan Assessment/Plan (1) Intractable back pain: PLAN: Patient is a 56-year-old lady with history of lumbar fusion surgery in [address] Medellin who was evaluated in December and managed as a case of osteomyelitis involving the lumbar spine. Patient was discharged home with 6 weeks of IV antibiotics. Presented back to the emergency department with intractable back pain. Patient did receive antibiotics in the ED with Vanco and Rocephin and subsequently admitted for inpatient evaluation. Repeat imaging studies with MRI ordered. Consultation placed to orthopedic surgery Dr. Medellin 1. Intractable back pain * Patient has history of lumbar fusion surgery in September 2021 and was managed as a case of osteomyelitis involving the lumbar spine. * Ortho spine following * MRI lumbar spine completed, report pending * DC IV solumedrol given osteomyelitis * 02/14: Patient complaining of numbness in her buttocks and saddle anesthesia. We will repeat MRI to rule out any other acute issues such as cauda equina. Did discuss with the patient as she is clearly anxious that that certainly could be a possibility that she has just very worked up and having a lot of paresthesias. The reason I was concerned that that could be the case is that she was also complaining about in her upper extremities. Patient was observed picking up a cup of coffee with no tremulousness that is why I think that this is more anxiety. However given the known issues with her back it certainly prudent to rule out any other acute process. * 02/14: increase fentanyl patch from 25 to 50. 2. Osteomyelitis involving the lumbar spine * Patient was managed with 6 weeks of antibiotic therapy with vancomycin and Rocephin * Patient did receive antibiotics in the ED with vancomycin and Rocephin. * Seen on MRI * L3 Vertebral bone biopsy performed 02/13 * Notified dr. Cross, he recommends cefepime and vancomycin * 02/14: DW Dr. Medellin, pt will need to follow up. Eventually, she will need to have her hardware removed. 3. 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 Diabetes mellitus type II * uncontrolled due to steroids * on glargine 42/daily. SSI * Placed on long acting insulin, Accu-Cheks a.c. and at bedtime and covered with sliding scale insulin 5. Hypertension * Blood pressure controlled, home medications continued with dose adjustment as needed 6. Dyslipidemia * Patient is on statin therapy, continued at home dose 7. Diabetic polyneuropathy * Patient is on gabapentin did continue 8. Tobacco dependence * Counseled on cessation, offered nicotine patch for tobacco cravings 9. COPD * Did continue patient home aerosol and bronchodilator treatment regimen 10. Mild hyponatremia * Possibly related to SIADH from pain 11. DVT prophylaxis * SC Lovenox 12. Anxiety * Complicating care and recovery. Patient does require quite a bit of reassurance. I addressed this with the patient directly today that while acknowledging is informed to rule out a pathologic problem, I did state that her anxiety is certainly a factor in regards to her overall care management. * Stared citalopram 20 on 02/14. Greater than 25 minutes of which greater than 50% of time was constipation at bedside about the back pain, repeating the plan as waiting on cultures, she that she will need IV antibiotics as well as a PICC line. I have mentioned this to the patient numerous occasions and whenever I mention these details it is almost is that she is hearing is the first time. I do not believe that the patient is forgetting but does have a very emotional response when a tell her the same thing over but it does not seem to be quite as dramatic as it has been in the preceding days. Charges/Coding Visit Charges Inpatient E&M: 56104 Subs Hosp L2
[2022-02-16 09:23] LABS: Anion Gap 3 (5-15); BUN 19 mg/dL (7-18); BUN/Creat Ratio 21.9 RATIO (10-20); Calcium,Total 9.5 mg/dL (8.5-10.1); Chloride 105 mmol/L (98-107); Creatinine, Serum 0.87 mg/dL (0.55-1.02); EST Glomerular Filtration Rate 72 mL/min (>60); Est Glom Filt Rate - Afr Amer 87 mL/min (>60); Estimated Creatinine Clearance 53.84 ml/min; Glucose 119 mg/dL (74-106); Potassium 4.5 mmol/L (3.5-5.1); Sodium Level 137 mmol/L (136-145)
--- NOTE | 2022-02-16 09:49 | PCM.RX.CS ---
Consult Pharmacy has been consulted to manage selected antiobiotic: Vancomycin Type of Consult: Follow-up Prior Doses of Antibiotics Received/Current Regimen: Medications Discontinued Medications Vancomycin HCl 750 mg/ Sodium (Chloride) 265 mls @ 250 mls/hr IV Q12H RICCI Last Admin: 02/15/22 22:17 Dose: Infused Documented by: Labs: Sodium 137 mmol/L (136-145) 02/16/22 09:00 Potassium 4.5 mmol/L (3.5-5.1) 02/16/22 09:00 Chloride 105 mmol/L (98-107) 02/16/22 09:00 Carbon Dioxide 29.0 mmol/L (21.0-32.0) 02/16/22 09:00 Anion Gap 3 (5-15) L 02/16/22 09:00 BUN 19 mg/dL (7-18) H 02/16/22 09:00 Creatinine 0.87 mg/dL (0.55-1.02) 02/16/22 09:00 Est GFR (MDRD) Af Amer 87 mL/min (>60) 02/16/22 09:00 Est GFR (MDRD) Non-Af 72 mL/min (>60) 02/16/22 09:00 BUN/Creatinine Ratio 21.9 RATIO (10-20) H 02/16/22 09:00 Glucose 119 mg/dL (74-106) H 02/16/22 09:00 Vancomycin Trough 24.3 ug/mL (5.0-15.0) H 02/15/22 21:35 Random Vancomycin 19.0 ug/mL (0.0-15.0) H 02/16/22 09:00 Microbiology: Microbiology 02/09/22 20:30 Blood Culture (Wb) - Right Forearm Blood Culture - Final No growth in 5 days. 02/09/22 20:17 Blood Culture (Wb) - Anticubital Left Blood Culture - Final No growth in 5 days. 02/13/22 Unknown Bone - Back Gram Stain - Final 02/13/22 Unknown Bone - Back Wound Culture - Preliminary No growth-Final to follow Weight used for dosin kg Goal Trough: 15-20 mcg/mL Pharmacy Plan for Drug Dosing: Rough vanc trough ~ 19. Not entirely sure if this represents a full trough. Given the data, recommend 500mg IV q12h and re-check in 48 hours but may need to move to a longer interval. Pharmacy Service will continue to monitor and adjust dosing as required. Follow-Up Labs: Trough Vancomycin - 02/17 @ 9344
[2022-02-16 10:00] VITALS: BP 137/77; PULSE 86; RESP 18; TEMP 36.7; O2SAT 94
[2022-02-16] MEDS: hydroCHLOROthiazide 25 MG Tablet PO ×2 (10:16→22:49)
[2022-02-16] MEDS: Citalopram 20 MG Tablet PO (10:16)
[2022-02-16] MEDS: Loratadine 10 MG Tablet PO (10:16)
[2022-02-16] MEDS: Enoxaparin 40 MG/0.4 ML Syringe SC ×2 (10:17→22:49)
[2022-02-16] MEDS: Insulin Glargine-YFGN 100 UNIT/ML Pen 42 UNIT SC (10:17)
[2022-02-16] MEDS: Lidocaine 5% Patch 2 PATCH TOPICAL (10:18)
[2022-02-16] MEDS: tiZANidine HCl 2 MG Tablet 4 MG PO ×3 (10:19→22:48)
[2022-02-16] MEDS: Pantoprazole Sodium 40 MG Tablet PO (10:19)
[2022-02-16] MEDS: Lisinopril 20 MG Tablet PO ×2 (10:20→22:48)
[2022-02-16] MEDS: Vancomycin IV 500 MG/100 ML BAG 100 MG IV ×2 (11:25→22:46)
[2022-02-16 11:40] LABS: Bedside Glucose 258 mg/dL (74-106)
[2022-02-16] MEDS: Acetaminophen 500 MG Tablet 1000 MG PO (13:38)
[2022-02-16] MEDS: Senna/Docusate Sodium 1 Tablet 2 TABLET PO (13:46)
[2022-02-16] MEDS: LORazepam 0.5 MG Tablet PO (13:46)
--- NOTE | 2022-02-16 13:54 | NURSING ---
pt sleeping soundly, so soundly that her arm was hanging over the edge of bed and she had dropped her phone unawares, awakened for lunch
[2022-02-16 14:36] VITALS: BP 146/88; PULSE 77; RESP 18; TEMP 36.6; O2SAT 99
[2022-02-16 20:19] VITALS: BP 121/94; PULSE 72; RESP 18; TEMP 37.1; O2SAT 95
[2022-02-16] MEDS: Amitriptyline 100 MG Tablet PO (22:49)
[2022-02-16] MEDS: Atorvastatin Calcium 80 MG Tablet PO (22:49)
[2022-02-16 22:57] VITALS: BP 140/87; PULSE 76; RESP 18; TEMP 36.6; O2SAT 94
[2022-02-16 23:01] LABS: Bedside Glucose 297 mg/dL (74-106)
[2022-02-17 04:31] VITALS: BP 103/69; PULSE 73; RESP 18; TEMP 36.6; O2SAT 92
[2022-02-17] MEDS: Insulin Lispro 100 UNIT/ML INSULN.PEN SC ×3 (04:37→21:21)
[2022-02-17 04:46] LABS: Bedside Glucose 161 mg/dL (74-106)
[2022-02-17 05:30] LABS: Anion Gap 2 (5-15); BUN 15 mg/dL (7-18); BUN/Creat Ratio 17.5 RATIO (10-20); Calcium,Total 8.9 mg/dL (8.5-10.1); Chloride 104 mmol/L (98-107); Creatinine, Serum 0.86 mg/dL (0.55-1.02); EST Glomerular Filtration Rate 72 mL/min (>60); Est Glom Filt Rate - Afr Amer 88 mL/min (>60); Estimated Creatinine Clearance 54.46 ml/min; Glucose 139 mg/dL (74-106); Potassium 4.5 mmol/L (3.5-5.1); Sodium Level 135 mmol/L (136-145)
[2022-02-17] MEDS: Gabapentin 600 MG Tablet PO ×3 (07:44→16:48)
[2022-02-17] MEDS: oxyCODONE 5 MG Tablet 10 MG PO ×4 (07:44→21:22)
[2022-02-17] MEDS: Loratadine 10 MG Tablet PO (08:02)
[2022-02-17] MEDS: Lisinopril 20 MG Tablet PO ×2 (08:02→21:23)
[2022-02-17] MEDS: Pantoprazole Sodium 40 MG Tablet PO (08:02)
[2022-02-17] MEDS: hydroCHLOROthiazide 25 MG Tablet PO ×2 (08:03→21:29)
[2022-02-17 08:26] VITALS: BP 134/93; PULSE 72; RESP 18; TEMP 36.6; O2SAT 95
[2022-02-17] MEDS: Ketorolac 30 MG/ML Syringe IV (10:17)
[2022-02-17] MEDS: Vancomycin IV 500 MG/100 ML BAG 100 MG IV ×2 (10:18→21:29)
[2022-02-17] MEDS: 0.9% Saline Lock 10 ML Syringe IV ×3 (10:19→14:37)
[2022-02-17] MEDS: Insulin Glargine-YFGN 100 UNIT/ML Pen 42 UNIT SC (10:33)
[2022-02-17] MEDS: Enoxaparin 40 MG/0.4 ML Syringe SC ×2 (10:39→21:22)
--- NOTE | 2022-02-17 11:01 | PN.HOSP_ITS ---
Subjective Subjective Patient complaining of significant pain however is moving around in the bed fairly well. Per nursing she asked for pain medications all night and always reports her pain is 10 out of 10 no matter what. She refused her tizanidine and gabapentin overnight. No IV pain medications used. I discussed with the patient that we really need to work on finding medications that hit more than just the opiate receptors for pain control. She evidently was quite sleepy and slept all the way through her blood draw secondary to medication use. She right now is asking for something breakthrough and after reviewing her laboratory data we will go ahead and give her Toradol x1 dose. Patient indicating she needs to go home now she has some paperwork she has to do however I discussed with her we do not have yet the sensitivities for the organisms in her spine and we need to get those prior to sending her home so she goes home on appropriate antibiotics. She voices understanding. Objective Data Objective Data Vital Signs: Vital Signs Temp Pulse Resp BP Pulse Ox 97.9 F 72 18 134/93 H 95 02/17/22 08:26 02/17/22 08:26 02/17/22 08:26 02/17/22 08:26 02/17/22 08:26 Oxygen Flow Rate (L/min) 2 Oxygen Delivery Method Room Air Weight: 78.7 kg Body Mass Index (BMI) 29.1 Intake & Output: Intake and Output for Last 24 Hours 02/15/22 02/16/22 02/17/22 23:59 23:59 23:59 Intake Total 3294.17 / 3294.17 1929 100 / 100 Balance 3294.17 / 3294.17 1929 100 / 100 Lab / Micro Data Result Diagrams: 02/11/22 06:07 02/17/22 04:50 Labs: Laboratory Results - last 24 hr 02/16/22 11:28: POC Glucose 258 H 02/16/22 22:50: POC Glucose 297 H 02/17/22 04:36: POC Glucose 161 H 02/17/22 04:50: Sodium 135 L, Potassium 4.5, Chloride 104, Carbon Dioxide 29.0, Anion Gap 2 L, BUN 15, Creatinine 0.86, Estim Creat Clear Calc 54.46, Est GFR (MDRD) Af Amer 88, Est GFR (MDRD) Non-Af 72, BUN/Creatinine Ratio 17.5, Glucose 139 H, Calcium 8.9 Micro: Microbiology 02/13/22 Unknown Bone - Back Gram Stain - Final 02/13/22 Unknown Bone - Back Wound Culture - Final No growth aerobically. 02/09/22 20:30 Blood Culture (Wb) - Right Forearm Blood Culture - Final No growth in 5 days. 02/09/22 20:17 Blood Culture (Wb) - Anticubital Left Blood Culture - Final No growth in 5 days. Physical Exam Const alert, oriented x3 and no apparent distress Constitutional Narrative: Middle-aged white female lying in bed on her right side lying, turns onto her back without any difficulty upon me entering the room however then complains of pain and shows marked difficulty turning back on her right side when I asked to examine her lungs, appears older than stated age, nontoxic Exam Limitations: no limitations Nutritional Appearance: obese HEENT head/scalp atraumatic and moist oral mucous membranes HEENT Narrative: Edentulous, Mallampati is 2-3, no thrush Head and Scalp: normocephalic Resp normal respiratory effort, no retractions, no use of accessory muscles and clear to auscultation bilaterally Resp Narrative: Diffusely diminished but clear Auscultation: Negative for crackles, rales, rhonchi or wheezes Cardio regular rate, regular rhythm, S1 normal heart sound, S2 normal heart sound, no murmurs, no rub, no gallops, no clicks and no JVD GI normal to inspection, nondistended, normoactive bowel sounds, soft to palpation, non-tender and non-distended Extremity no clubbing, cyanosis or edema Peripheral Pulses: Yes pulses 2+ throughout Neuro oriented x3, moves all extremities and no focal motor deficits Sensorium / Orientation: awake and alert Speech: speech normal Assessment & Plan Assessment/Plan (1) Intractable back pain: (2) Osteomyelitis of lumbar spine: PLAN: Intractable low back pain -Lumbar fusion September 2021 and was managed previously as a case of osteomyelitis involving the lumbar spine -Patient with acute on chronic back pain related to chronic issue status post fusion plus osteomyelitis -Patient refused gabapentin and tizanidine through the night -Patient reports 10 out of 10 pain constantly however mobility is not horribly affected -Continue fentanyl patch -Continue oral opiates as ordered -Continue bowel regimen -No use of IV Dilaudid and therefore will discontinue -Discussed with patient importance of hitting more than just the receptors with opiates for pain control and she reported she was be more compliant with gabape ntin and requested the tizanidine be decreased to 3 times daily -Toradol x1 dose 30 mg for breakthrough pain Osteomyelitis of the lumbar spine at L4-L5 -MRI performed and showed mild cortical thinning/erosion of both endplates with edema and intramedullary infiltration consistent with vertebral osteomyelitis at L4 and L5, no change in intradiscal fluid surrounding interbody graft with mild facet joint hypertrophy and moderate canal stenosis, liquefaction around the interbody graft of L4-L5 and no osteomyelitis or discitis at L5-S1 -Hardware cannot yet be removed as her fusion is not solid or stable enough -Will eventually need hardware removed -Continue antibiotics per ID -L3 vertebral bone biopsy performed on 02/13/2022 and cultures are pending -Appreciate orthopedics/infectious disease input Degenerative disc disease -Status post fusion 09/27/2021 -Dr. Medellin is following DM-2 -Blood sugars have been elevated secondary to steroids -A.m. fasting was 139 -Would like control between 140-180 if possible to promote healing -Blood sugars appear to fluctuate -Basal and insulin appears adequate at 42 units daily -We will add scheduled log 10 units 3 times daily with meals and continue sliding scale as ordered -Accu-Cheks before meals and at bedtime Hypertension -Continue hydrochlorothiazide 25 mg twice daily -Continue lisinopril 20 mg twice daily Hyperlipidemia -Continue atorvastatin 80 mg nightly GERD -Continue Protonix 40 mg nightly COPD -Patient still smokes -Recommend cessation -Nicotine patch -Continue home inhaler -As needed albuterol DVT prophylaxis -Continue enoxaparin 40 mg twice daily -SCDs while in bed CODE STATUS Full code Charges/Coding Visit Charges Inpatient E&M: 88799 Subs Hosp L2
[2022-02-17 12:26] LABS: Bedside Glucose 217 mg/dL (74-106)
[2022-02-17] MEDS: Ipratropium/Albuterol Sulfate 3 ML AMPUL.NEB INHALATION ×2 (13:47→19:35)
[2022-02-17 13:48] VITALS: PULSE 70; RESP 20; O2SAT 100
[2022-02-17 14:30] VITALS: BP 134/91; PULSE 84; RESP 18; TEMP 36.6; O2SAT 96
[2022-02-17] MEDS: tiZANidine HCl 2 MG Tablet 4 MG PO ×2 (14:38→21:23)
[2022-02-17 17:06] LABS: Bedside Glucose 105 mg/dL (74-106)
[2022-02-17 19:36] VITALS: PULSE 85; RESP 18
[2022-02-17 20:12] VITALS: BP 150/76; PULSE 81; RESP 18; TEMP 36.9; O2SAT 97
[2022-02-17] MEDS: Senna/Docusate Sodium 1 Tablet 2 TABLET PO (21:23)
[2022-02-17] MEDS: Atorvastatin Calcium 80 MG Tablet PO (21:23)
[2022-02-17] MEDS: Amitriptyline 100 MG Tablet PO (21:27)
[2022-02-17 21:30] LABS: Bedside Glucose 255 mg/dL (74-106)
[2022-02-17 22:06] LABS: Vancomycin, Trough Level 17.5 ug/mL (5.0-15.0)
--- NOTE | 2022-02-17 22:45 | PCM.RX.CS ---
Consult Pharmacy has been consulted to manage selected antiobiotic: Vancomycin Type of Consult: Follow-up Suspected Infection: Osteomyelitis Prior Doses of Antibiotics Received/Current Regimen: Medications Vancomycin HCl () 500 mg in 100 mls @ 100 mls/hr IV Q12H RICCI Last Admin: 02/17/22 21:29 Dose: 100 mls/hr Labs: Sodium 135 mmol/L (136-145) L 02/17/22 04:50 Potassium 4.5 mmol/L (3.5-5.1) 02/17/22 04:50 Chloride 104 mmol/L (98-107) 02/17/22 04:50 Carbon Dioxide 29.0 mmol/L (21.0-32.0) 02/17/22 04:50 Anion Gap 2 (5-15) L 02/17/22 04:50 BUN 15 mg/dL (7-18) 02/17/22 04:50 Creatinine 0.86 mg/dL (0.55-1.02) 02/17/22 04:50 Est GFR (MDRD) Af Amer 88 mL/min (>60) 02/17/22 04:50 Est GFR (MDRD) Non-Af 72 mL/min (>60) 02/17/22 04:50 BUN/Creatinine Ratio 17.5 RATIO (10-20) 02/17/22 04:50 Glucose 139 mg/dL (74-106) H 02/17/22 04:50 Vancomycin Trough 17.5 ug/mL (5.0-15.0) H 02/17/22 21:20 Random Vancomycin 19.0 ug/mL (0.0-15.0) H 02/16/22 09:00 Microbiology: Microbiology 02/13/22 Unknown Bone - Back Gram Stain - Final 02/13/22 Unknown Bone - Back Wound Culture - Final No growth aerobically. 02/09/22 20:30 Blood Culture (Wb) - Right Forearm Blood Culture - Final No growth in 5 days. 02/09/22 20:17 Blood Culture (Wb) - Anticubital Left Blood Culture - Final No growth in 5 days. Weight used for dosin.7 kg Estimated Creatinine Clearance: 54 Goal Trough: 15-20 mcg/mL Pharmacy Plan for Drug Dosing: Vancomycin trough level of 17.5 was within target range of 15-20. Will continue same dosing, and re-draw a trough in 4 more doses. Pharmacy Service will continue to monitor and adjust dosing as required. Follow-Up Labs: Trough Vancomycin Labs to be done on [date and time ordered]: 02/19/22 @2756
[2022-02-18] VITALS (8 sets, daily range): BP systolic 144–182; BP diastolic 79–86; PULSE 80–85; RESP 16–18; TEMP 36.7–37.1; O2SAT 95–98
[2022-02-18] MEDS: oxyCODONE 5 MG Tablet 10 MG PO ×3 (04:10→12:06)
[2022-02-18] MEDS: tiZANidine HCl 2 MG Tablet 4 MG PO ×2 (04:10→14:40)
[2022-02-18] MEDS: hydrALAZINE 20 MG/ML Vial 10 MG IV ×2 (04:19→07:49)
[2022-02-18] MEDS: 0.9% Saline Lock 10 ML Syringe IV ×2 (04:19→07:51)
[2022-02-18 04:55] LABS: Absolute Lymphocyte Count 1.75 X10^3/uL (0.83-4.51); Absolute Neutrophil Count 2.5 X10^3/uL (2.0-7.7); Basophil# 0.02 X10^3/uL; Basophil% 0.4 % (0-1); Eosinophil# 0.27 X10^3/uL; Hematocrit 29.9 % (37-47); Lymphocyte # 1.75 X10^3/ul (0.83-4.51); Lymphocyte % 32.3 % (19-41); Mean Corp Hgb Conc 30.1 g/dL (32-36); Mean Corpuscular Hgb 26.9 pg (27.0-32.0); Mean Corpuscular Volume 89.3 fL (81-99); Mean Platelet Vol. 10.6 fl (6.2-12.0); Monocyte# 0.85 X10^3/uL; Monocyte% 15.7 % (0-10); NRBC Flagged by Analyzer 0 % (0-5); Neutrophil % 46.2 % (47-70); Platelet Count 299 K/mm3 (150-450); RBC Distribution Width CV 16.1 % (11.6-14.6); RBC Distribution Width SD 52.3 fl (35.1-43.9); Red Blood Count 3.35 M/mm3 (4.2-5.4); White Blood Count 5.4 K/mm3 (4.4-11.0)
[2022-02-18 05:31] LABS: Anion Gap 4 (5-15); BUN 19 mg/dL (7-18); BUN/Creat Ratio 22.4 RATIO (10-20); Calcium,Total 9.3 mg/dL (8.5-10.1); Chloride 105 mmol/L (98-107); Creatinine, Serum 0.85 mg/dL (0.55-1.02); EST Glomerular Filtration Rate 74 mL/min (>60); Est Glom Filt Rate - Afr Amer 89 mL/min (>60); Glucose 66 mg/dL (74-106); Potassium 4.5 mmol/L (3.5-5.1); Sodium Level 137 mmol/L (136-145)
[2022-02-18] MEDS: Ipratropium/Albuterol Sulfate 3 ML AMPUL.NEB INHALATION ×2 (07:34→14:04)
--- NOTE | 2022-02-18 07:37 | PCM.PN.HOSP ---
Subjective Subjective Patient seen still complains of intractable back pain. Awaiting infectious disease review prior to possible discharge Objective Data Objective Data Vital Signs: Vital Signs Temp Pulse Resp BP Pulse Ox 98.1 F 85 18 151/82 H 98 02/18/22 04:00 02/18/22 04:19 02/18/22 04:00 02/18/22 05:21 02/18/22 04:00 Oxygen Flow Rate (L/min) 2 Oxygen Delivery Method Room Air Weight: 75.8 kg Body Mass Index (BMI) 29.1 Intake & Output: Intake and Output for Last 24 Hours 02/16/22 02/17/22 02/18/22 23:59 23:59 23:59 Intake Total 1929 1180 / 1180 100 / 100 Balance 1929 1180 / 1180 100 / 100 Lab / Micro Data Result Diagrams: 02/18/22 04:20 02/18/22 04:20 Labs: Laboratory Results - last 24 hr 02/17/22 11:47: POC Glucose 217 H 02/17/22 16:52: POC Glucose 105 02/17/22 21:16: POC Glucose 255 H 02/17/22 21:20: Vancomycin Trough 17.5 H 02/18/22 04:20: Sodium 137, Potassium 4.5, Chloride 105, Carbon Dioxide 28.0, Anion Gap 4 L, BUN 19 H, Creatinine 0.85, Estim Creat Clear Calc 55.10, Est GFR (MDRD) Af Amer 89, Est GFR (MDRD) Non-Af 74, BUN/Creatinine Ratio 22.4 H, Glucose 66 L, Calcium 9.3 02/18/22 04:20: WBC 5.4, RBC 3.35 L, Hgb 9.0 L, Hct 29.9 L, MCV 89.3, MCH 26.9 L, MCHC 30.1 L, RDW Std Deviation 52.3 H, RDW Coeff of Yudelka 16.1 H, Plt Count 299, MPV 10.6, Immature Gran % (Auto) 0.400, Neut % (Auto) 46.2 L, Lymph % (Auto) 32.3, [place] % (Auto) 15.7 H, Eos % (Auto) 5.0, Baso % (Auto) 0.4, Absolute Neuts (auto) 2.5, Absolute Lymphs (auto) 1.75, Nucleated RBC % 0 Micro: Microbiology 02/13/22 Unknown Bone - Back Gram Stain - Final 02/13/22 Unknown Bone - Back Wound Culture - Final No growth aerobically. 02/09/22 20:30 Blood Culture (Wb) - Right Forearm Blood Culture - Final No growth in 5 days. 02/09/22 20:17 Blood Culture (Wb) - Anticubital Left Blood Culture - Final No growth in 5 days. Physical Exam Narrative GENERAL: cooperative HEENT: Atraumatic; EYES; Anicteric, Normal Conjunctiva NECK; supple, normal thyroid, RESPIRATORY: Diminished to auscultation CARDIOVASCULAR: Regular S1 S2, GI: soft, normoactive bowel sounds, : No Renal angle tenderness; EXTREMITIES: No edema, no clubbing, MUSCULOSKELETAL: no muscle wasting NEURO: Awake; no lateralizing signs. SKIN: No Rash PSYCH; Flat affect Assessment & Plan Assessment/Plan (1) Intractable back pain: (2) Osteomyelitis of lumbar spine: PLAN: Patient is a 56-year-old lady with history of lumbar fusion surgery in [place] [address] Medellin who was evaluated in December and managed as a case of osteomyelitis involving the lumbar spine. Patient was discharged home with 6 weeks of IV antibiotics. Presented back to the emergency department with intractable back pain. 1. Intractable back pain ?Patient has history of lumbar fusion surgery in September 2021 and was managed as a case of osteomyelitis involving the lumbar spine. Admitted with intractable back pain subsequent evaluation with MRI ordered and consultation placed to orthopedic surgery 2. Recent osteomyelitis involving the lumbar spine ? Patient was managed with 6 weeks of antibiotic therapy with vancomycin and Rocephin -MRI performed and showed mild cortical thinning/erosion of both endplates with edema and intramedullary infiltration consistent with vertebral osteomyelitis at L4 and L5, no change in intradiscal fluid surrounding interbody graft with mild facet joint hypertrophy and moderate canal stenosis, liquefaction around the interbody graft of L4-L5 and no osteomyelitis or discitis at L5-S1 3. 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 Status post lumbar fusion surgery on 09/27/2021 4. Diabetes mellitus type II -patient's oral hypoglycemics held. Placed on long acting insulin, Accu-Cheks a.c. and at bedtime and covered with sliding scale insulin 5. Hypertension - Blood pressure controlled, home medications continued with dose adjustment as needed 6. Dyslipidemia -Patient is on statin therapy, continued at home dose 7. Diabetic polyneuropathy ? Patient is on gabapentin did continue 8. Tobacco dependence - Counseled on cessation, offered nicotine patch for tobacco cravings 9. COPD ? Did continue patient home aerosol and bronchodilator treatment regimen 10. Mild hyponatremia ? Possibly related to SIADH from pain 11. DVT prophylaxis ? MO Tracey Charges/Coding Visit Charges Inpatient E&M: 37705 Subs Hosp L2
[2022-02-18] MEDS: Gabapentin 600 MG Tablet PO ×2 (07:49→11:33)
[2022-02-18 08:05] LABS: Bedside Glucose 67 mg/dL (74-106)
[2022-02-18] MEDS: Vancomycin IV 500 MG/100 ML BAG 100 MG IV (10:13)
[2022-02-18] MEDS: Loratadine 10 MG Tablet PO (10:14)
[2022-02-18] MEDS: hydroCHLOROthiazide 25 MG Tablet PO (10:15)
[2022-02-18] MEDS: Insulin Glargine-YFGN 100 UNIT/ML Pen 42 UNIT SC (10:15)
[2022-02-18] MEDS: Enoxaparin 40 MG/0.4 ML Syringe SC (10:16)
[2022-02-18] MEDS: Lisinopril 20 MG Tablet PO (10:17)
[2022-02-18] MEDS: Pantoprazole Sodium 40 MG Tablet PO (10:17)
[2022-02-18] MEDS: Acetaminophen 500 MG Tablet 1000 MG PO (10:18)
[2022-02-18] MEDS: Insulin Lispro 100 UNIT/ML INSULN.PEN 10 UNIT SC (11:42)
[2022-02-18] MEDS: Insulin Lispro 100 UNIT/ML INSULN.PEN SC (11:42)
[2022-02-18 11:55] LABS: Bedside Glucose 199 mg/dL (74-106)
--- NOTE | 2022-02-18 11:56 | CASEMGMT ---
Addendum entered by Rosa Xiao 02/18/22 15:58: Received notification that pt needs PA for fentanyl patch. TC to [facility] , trf'd to , spoke with Lois. States the medication is going to be sent to the pharmacist for review. Ref #[id number]. Addendum entered by Rosa Xiao 02/18/22 15:49: RN CM in to pt room. Pt aware of dc plan and that HHC will start in the morning. Pt still has her therapy script from last hospital stay if she should chose to go to [facility] again. She does not feel this is needed. She does still have the [facility] transportation info as well. Pt denies further needs. Addendum entered by Rosa Xiao 02/18/22 15:30: Faxed dc summary to [facility] and [facility]. Addendum entered by Rosa Xiao 02/18/22 13:26: ID ok with IV meds to start in the am at home. Addendum entered by Rosa Xiao 02/18/22 13:23: Final IV orders faxed to [facility] and [facility] at this time as well as height and weight. TC to [facility], spoke with Dina, she is aware that the orders were faxed. Plan for tomorrow morning SOC. Original Note: Spoke with Dina MAXWELL who is requesting final order for pt. Made aware that ID has not rounded yet, but plan for pt to dc once final IV atb recommendation made. She also requests height and weight. If this info is received by 3pm, they can deliver med yet tonight. TC to [facility], spoke with Kimmy, she states they are able to do the one time contract with [facility]. They are able to see pt tomorrow morning for SOC should pt dc today.
--- NOTE | 2022-02-18 13:36 | PN.ID_ITS ---
Physical Exam Narrative Pain slightly improved, no fver, no n/v/d Const alert and no apparent distress General Appearance: cooperative Resp normal air movement and clear to auscultation bilaterally Cardio regular rate and regular rhythm GI soft to palpation, non-tender and non-distended Skin no rashes or lesions noted ID ID: Route of nutrition/ use of supplements: [] Nutritional Intake: [] IV Site: [] Zurita Catheter: [] Assessment & Plan Assessment/Plan (1) Intractable back pain: PLAN: Recently completed 6 weeks iv vanc without improvement. MRI showed possible L4-5 phlegmon. Now s/p repeat needle biopsy 02/13/22. Cxs neg so far. Started empiric vanc/cefepime. stop date 03/28/22, wrote rx. D/w patient case coordinator. ID followup in 2 weeks. If does not improve, will need open biopsy and possible hardware removal/revision. Will follow
--- NOTE | 2022-02-18 14:56 | PCM.DC.SUM ---
Providers Date of Admission: 02/12/22 Primary Care Physician: Gris Fofana NP Consultations 02/09/22 22:21 Consult: Orthopedics Routine Consulting Provider: Beck Medellin Reason for Consult: Intractable lumbar back pain, s/p remote OR and IV abx therapy recent x 6wk EMERGENT Consult: No Notified: Yes Date Notified: 02/09/22 Time Notified: 21:41 Method of Notification: called 02/10/22 09:36 Consult: Infectious Disease Routine Consulting Provider: Jez Cross Reason for Consult: Osteomyelitis involving the lumbar spine EMERGENT Consult: No MD Notified: Yes Date Notified: 02/11/22 Time Notified: 08:01 Method of Notification: Text Reason For Visit: INTRACTABLE BACK PAIN Diagnosis Discharge Diagnosis (1) Intractable back pain: Status: Acute Code(s): M54.9 - Dorsalgia, unspecified Medications at Discharge Home Medications insulin glargine 100 unit/mL (3 mL) subcutaneous pen 37 unit SC DAILY 11/03/20 albuterol sulfate 90 mcg/actuation aerosol inhaler 2 puff INHALATION Q6H PRN 06/14/21 atorvastatin 80 mg tablet 80 mg PO QHS 06/14/21 budesonide-formoterol HFA 160 mcg-4.5 mcg/actuation aerosol inhaler 2 puff INHALATION BID 06/14/21 lisinopril 20 mg-hydrochlorothiazide 25 mg tablet 1 tab PO BID 06/14/21 pantoprazole 40 mg tablet,delayed release 40 mg PO DAILY 06/14/21 tizanidine 4 mg capsule 4 mg PO BID PRN 06/14/21 amitriptyline 100 mg PO QHS 11/27/21 ipratropium-albuterol 3 ml INHALATION 4X/DAY PRN 11/27/21 loratadine 10 mg PO DAILY 11/27/21 sennosides-docusate sodium [Stool Softener-Stimulant Laxat] 2 tab PO BID PRN PRN #0 tab 11/30/21 gabapentin 400 mg PO TIDCM 12/26/21 insulin lispro [Humalog KwikPen Insulin] See Protocol SUBCUT ACHS PRN 12/26/21 acetaminophen 1,000 mg PO Q8 #0 tab 02/18/22 cefepime 2 g IV Q8H #114 ea 02/18/22 citalopram 20 mg PO DAILY #30 tab 02/18/22 fentanyl 50 mcg TRANSDERMAL Q3D 3 Days #2 ea 02/18/22 oxycodone 10 mg PO Q4H PRN 3 Days #18 tab 02/18/22 vancomycin in dextrose 5 % 500 mg IV Q12H 38 Days ml 02/18/22 Hospital Course Summary of Care Provided Minutes Spent on Discharge: 35 Hospital Course: Patient is a 56-year-old lady with history of lumbar fusion surgery in [address] Medellin who was evaluated in December and managed as a case of osteomyelitis involving the lumbar spine. Patient was discharged home with 6 weeks of IV antibiotics. Presented back to the emergency department with intractable back pain. 1. Intractable back pain ?Patient has history of lumbar fusion surgery in September 2021 and was managed as a case of osteomyelitis involving the lumbar spine. Admitted with intractable back pain subsequent evaluation with MRI ordered and consultation placed to orthopedic surgery 2. Recent osteomyelitis involving the lumbar spine ? Patient was managed with 6 weeks of antibiotic therapy with vancomycin and Rocephin -MRI performed and showed mild cortical thinning/erosion of both endplates with edema and intramedullary infiltration consistent with vertebral osteomyelitis at L4 and L5, no change in intradiscal fluid surrounding interbody graft with mild facet joint hypertrophy and moderate canal stenosis, liquefaction around the interbody graft of L4-L5 and no osteomyelitis or discitis at L5-S1 -Patient was seen in consultation by Dr. Cross with infectious disease recommended for patient to be discharged home with vancomycin and cefepime with a stop date of 03/28/2022. If patient does not improve plan is for patient to undergo open biopsy with possible hardware removal and revision 3. 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 Status post lumbar fusion surgery on 09/27/2021 4. Diabetes mellitus type II -patient's oral hypoglycemics held. Placed on long acting insulin, Accu-Cheks a.c. and at bedtime and covered with sliding scale insulin 5. Hypertension - Blood pressure controlled, home medications continued with dose adjustment as needed 6. Dyslipidemia -Patient is on statin therapy, continued at home dose 7. Diabetic polyneuropathy ? Patient is on gabapentin did continue 8. Tobacco dependence - Counseled on cessation, offered nicotine patch for tobacco cravings 9. COPD ? Did continue patient home aerosol and bronchodilator treatment regimen 10. Mild hyponatremia ? Possibly related to SIADH from pain 11. DVT prophylaxis ? SC Lovenox Physical Exam Narrative GENERAL: cooperative HEENT: Atraumatic; EYES; Anicteric, Normal Conjunctiva NECK; supple, normal thyroid, RESPIRATORY: Diminished to auscultation CARDIOVASCULAR: Regular S1 S2, GI: soft, normoactive bowel sounds, : No Renal angle tenderness; EXTREMITIES: No edema, no clubbing, MUSCULOSKELETAL: no muscle wasting NEURO: Awake; no lateralizing signs. SKIN: No Rash PSYCH; Flat affect Weight / BMI Weight Weight: 75.8 kg Body Mass Index (BMI) 29.1 ABG / Lab / Microbiology Data Result Diagrams: 02/18/22 04:20 02/18/22 04:20 Laboratory: Laboratory Results - last 24 hr 02/17/22 16:52: POC Glucose 105 02/17/22 21:16: POC Glucose 255 H 02/17/22 21:20: Vancomycin Trough 17.5 H 02/18/22 04:20: Sodium 137, Potassium 4.5, Chloride 105, Carbon Dioxide 28.0, Anion Gap 4 L, BUN 19 H, Creatinine 0.85, Estim Creat Clear Calc 55.10, Est GFR (MDRD) Af Amer 89, Est GFR (MDRD) Non-Af 74, BUN/Creatinine Ratio 22.4 H, Glucose 66 L, Calcium 9.3 02/18/22 04:20: WBC 5.4, RBC 3.35 L, Hgb 9.0 L, Hct 29.9 L, MCV 89.3, MCH 26.9 L, MCHC 30.1 L, RDW Std Deviation 52.3 H, RDW Coeff of Yudelka 16.1 H, Plt Count 299, MPV 10.6, Immature Gran % (Auto) 0.400, Neut % (Auto) 46.2 L, Lymph % (Auto) 32.3, [place] % (Auto) 15.7 H, Eos % (Auto) 5.0, Baso % (Auto) 0.4, Absolute Neuts (auto) 2.5, Absolute Lymphs (auto) 1.75, Nucleated RBC % 0 02/18/22 07:28: POC Glucose 67 L 02/18/22 11:40: POC Glucose 199 H Microbiology: Microbiology 02/13/22 Unknown Bone - Back Gram Stain - Final 02/13/22 Unknown Bone - Back Wound Culture - Final No growth aerobically. 02/13/22 Unknown Bone - Back Anaerobic Culture - Preliminary No growth in 48 hours. 02/09/22 20:30 Blood Culture (Wb) - Right Forearm Blood Culture - Final No growth in 5 days. 02/09/22 20:17 Blood Culture (Wb) - Anticubital Left Blood Culture - Final No growth in 5 days. D/C Instructions Discharge Diet: No restrictions Discharge Activity: Return to Normal Activity Call your doctor if you observe: Fever of 101 or Higher, Shortness of breath, Fainting spells and Chest pain Meaningful Use Info Meaningful Use Diagnoses (Choose all that apply): None applicable Discharge Plan Admission Admit Date/Time: 02/12/22 10:06 Attending Provider: Simeon Kenny Primary Care Provider: Gris Fofana NP Consulting Providers: Beck Medellin ; Flor Parks ; Simeon Kenny ; Jez Cross ; Oni Hale ; Keily Smith Discharge Orders/Prescriptions Prescriptions: New cefepime 2 gram recon soln 2 g IV Q8H Qty: 114 RF: 0 vancomycin in dextrose 5 % 500 mg/100 mL Piggyback 500 mg IV Q12H 38 Days RF: 0 fentanyl 50 mcg/hr Patch 72 Hour 50 mcg transdermal Q3D 3 Days Qty: 2 RF: 0 acetaminophen 500 mg Tablet 1,000 mg PO Q8 Qty: 0 RF: 0 citalopram 20 mg Tablet 20 mg PO DAILY Qty: 30 RF: 0 oxycodone 10 mg tablet 10 mg PO Q4H PRN (Reason: pain) 3 Days Qty: 18 RF: 0 Continued atorvastatin 80 mg tablet 80 mg PO QHS RF: 0 budesonide-formoterol [Symbicort] 160-4.5 mcg/actuation HFA aerosol inhaler 2 puff inhalation BID RF: 0 albuterol sulfate 90 mcg/actuation HFA aerosol inhaler 2 puff inhalation Q6H PRN (Reason: SOB) RF: 0 lisinopril-hydrochlorothiazide 20-25 mg tablet 1 tab PO BID RF: 0 pantoprazole 40 mg tablet,delayed release (DR/EC) 40 mg PO DAILY RF: 0 tizanidine 4 mg capsule 4 mg PO BID PRN (Reason: Muscle Pain) RF: 0 insulin glargine 100 unit/mL (3 mL) insulin pen 37 unit SC DAILY RF: 0 ipratropium-albuterol 0.5 mg-3 mg(2.5 mg base)/3 mL solution for nebulization 3 ml inhalation 4X/DAY PRN (Reason: sob) RF: 0 amitriptyline 100 mg tablet 100 mg PO QHS RF: 0 loratadine 10 mg tablet 10 mg PO DAILY RF: 0 sennosides-docusate sodium [Stool Softener-Stimulant Laxat] 8.6-50 mg Tablet 2 tab PO BID PRN PRN (Reason: Constipation) Qty: 0 RF: 0 gabapentin 400 mg capsule 400 mg PO TIDCM RF: 0 insulin lispro [Humalog KwikPen Insulin] 100 unit/mL insulin pen See Protocol unit subcut ACHS PRN (Reason: diabetes) RF: 0 Discontinued oxycodone 5 mg tablet 5 mg PO Q6H PRN (Reason: Pain) 5 Days Qty: 16 RF: 0 Referrals / Follow Up: Gris Fofana SELLING UNDERWRITER, SELLING UNDERWRITER-C [Primary Care Provider] - Disposition Disposition (needs filled in before D/C Order can be placed): Home Health Service Charges/Coding Visit Charges Inpatient E&M: 83741 Disch Hosp
== END 2022-02-18 16:12 | disposition home health service (06) | DRG 344 ==
LOC: ED 21:19 → MS3 21:48
PROVIDERS: Hospitalist; Internal Medicine; Internal Medicine Infectious Disease; Orthopaedic Surgery; Admitting Provider Family Medicine; Emergency Provider Emergency Medicine; PCP Nurse Practitioner Primary Care; Visit Provider Internal Medicine
PROC: 0QB03ZX Excision of Lumbar Vertebra, Percutaneous Approach, Diagnostic (ICD-10-PCS; principal; 2022-02-13 15:45)
DX: M46.26 Osteomyelitis of vertebra, lumbar region (principal); E22.2 Syndrome of inappropriate secretion of antidiuretic hormone; E11.42 Type 2 diabetes mellitus with diabetic polyneuropathy; Z79.4 Long term (current) use of insulin; J44.9 Chronic obstructive pulmonary disease, unspecified; E11.65 Type 2 diabetes mellitus with hyperglycemia; I10 Essential (primary) hypertension; K21.9 Gastro-esophageal reflux disease without esophagitis; J30.9 Allergic rhinitis, unspecified; M48.061 Spinal stenosis, lumbar region without neurogenic claudication; F17.210 Nicotine dependence, cigarettes, uncomplicated; I25.10 Atherosclerotic heart disease of native coronary artery without angina pectoris; E78.00 Pure hypercholesterolemia, unspecified; E78.5 Hyperlipidemia, unspecified; G47.33 Obstructive sleep apnea (adult) (pediatric); F41.9 Anxiety disorder, unspecified; Z79.1 Long term (current) use of non-steroidal anti-inflammatories (NSAID); Z98.1 Arthrodesis status; Z56.6 Other physical and mental strain related to work; Z79.01 Long term (current) use of anticoagulants; L02.212 Cutaneous abscess of back [any part, except buttock and flank]
CPT/HCPCS: 36415; 36569; 72100; 72148; 72158; 76000; 80048; 80053; 80202; 82962; 83735; 84145; 85025; 85652; 86140; 87015; 87040; 87070; 87075; 87102; 87116; 87205; 87206; 88305; 88307; 88311; 93005; 94640; 97110; 97116; 97162; 97165; 97530; 97535; 99251; 99284; 99406; A9575; J7030; J7040; J7050; J7120; A4216; G0463; J2405

== ENCOUNTER 2022-02-22 12:35 | Inpatient (IN) | payer MEDICAID, SELFPAY ==
[2022-02-22] VITALS (12 sets, daily range): BP systolic 146–206; BP diastolic 87–116; PULSE 94–126; RESP 16–24; TEMP 36.6–36.9; O2SAT 95–99; BMI 28.3; BMI 27.3
--- NOTE | 2022-02-22 13:32 | CT_ITS ---
STUDY: CT BRAIN WITHOUT CONTRAST REASON FOR EXAM: Female, 56 years old. Vision loss RADIATION DOSAGE (If Supplied By Facility): CTDIvol = ( 44.99 ) mGy, DLP = ( 829.85 ) mGycm TECHNIQUE: Transaxial CT imaging of the brain was performed without administration of intravenous contrast material. Individualized dose optimization techniques were used for this CT. COMPARISON: No relevant priors. FINDINGS: Normal soft tissue structures. Normal calvarium. Normal size ventricles and extra-axial spaces for the patient''s age. Left more than right upper and posterior cerebral hemisphere white matter areas of hypoattenuation. Normal basal ganglia and thalami. Normal brainstem. Normal cerebellum. There is no intracranial hemorrhage. There are no findings of an acute ischemic infarction. Normal visualized paranasal sinuses. CT/Brain/Head without Contrast IMPRESSION: Hypoattenuation in the left more than right upper and posterior cerebral hemisphere white matter may represent posterior reversible encephalopathy syndrome, with ischemic changes less likely. Electronically Signed: Delon Andrea MD at 14:36 EDT ,
--- NOTE | 2022-02-22 13:33 | EKG12_ITS ---
Test Reason : Blood Pressure : / mmHG Vent. Rate : 089 BPM Atrial Rate : 089 BPM P-R Int : 178 ms QRS Dur : 070 ms QT Int : 410 ms P-R-T Axes : 069 -01 -24 degrees QTc Int : 498 ms Sinus rhythm with Premature supraventricular complexes ST & T wave abnormality, consider inferior ischemia Abnormal ECG Confirmed by EZIO CRABTREE, AMY ([id number]), legal editor DIANA HAYES ([id number]) on 02/25/2022 12:38:31 PM Referred By: Confirmed By:AMY HOLGUIN MD
--- NOTE | 2022-02-22 13:34 | EX.ED.DYSGE1 ---
HPI History of Present Illness Chief Complaint: Confusion Informant: patient Narrative Narrative: 56-year-old female tells me that she feels that she is losing her mind. Patient does not really share with me any symptomology. Despite my repeated attempts for her to tell me some symptoms she just keeps saying that she is losing her mind and that she has blurry vision. When asked she states that this began this morning. She states that she feels like she is going to go into convulsions and starts shaking. She states she has done this a couple times already but that she is not anxious. She denies any hallucinations. She denies headache. She states that her arms and legs are tingling. Patient noted that she has hypertension and states that her systolic pressures are normally 140-150. [facility] Medical History Anxiety Arthritis Asthma Back pain Back pain Cardiology follow-up encounter Chronic neck and back pain COPD (chronic obstructive pulmonary disease) Coronary artery calcification seen on CAT scan CPAP (continuous positive airway pressure) dependence Depression Diabetes Dietary restriction Difficulty balancing Essential hypertension Gastric reflux High cholesterol History of arthritis History of echocardiogram History of edema History of pain when walking History of renal disease History of stomach ulcers History of stress test Hyperlipidemia Hypertension Injury of head and neck Insulin dependent diabetes mellitus Knee pain Lumbar stenosis Migraine headache Obesity Shortness of breath on exertion Shoulder pain Sleep apnea Smoker Strain of muscle, fascia and tendon of pelvis, initial encounter Strain of right hip and thigh Strain of right inguinal region Strain of unspecified muscles, fascia and tendons at thigh level, right thigh, initial encounter Syncope Thyroid disease Type 2 diabetes mellitus Walker as ambulation aid Wears glasses Wears hearing aid Home Medications insulin glargine 100 unit/mL (3 mL) subcutaneous pen 37 unit subcut DAILY DIABETES 11/03/20 [History Last Taken 12/25/21] albuterol sulfate 90 mcg/actuation aerosol inhaler 2 puff inhalation Q6H PRN SOB 06/14/21 [History Last Taken 12/25/21] atorvastatin 80 mg tablet 80 mg PO QHS CHOLESTEROL 06/14/21 [History Last Taken 12/23/21] budesonide-formoterol HFA 160 mcg-4.5 mcg/actuation aerosol inhaler (Symbicort) 2 puff inhalation BID ASTHMA 06/14/21 [History Last Taken 12/25/21] lisinopril 20 mg-hydrochlorothiazide 25 mg tablet 1 tab PO BID BP 06/14/21 [History Last Taken 12/25/21] pantoprazole 40 mg tablet,delayed release 40 mg PO DAILY GERD 06/14/21 [History Last Taken 12/25/21] tizanidine 4 mg capsule 4 mg PO BID PRN Muscle Pain 06/14/21 [History Last Taken 12/18/21] amitriptyline 100 mg tablet 100 mg PO QHS sleep 11/27/21 [History Last Taken 12/25/21] ipratropium 0.5 mg-albuterol 3 mg (2.5 mg base)/3 mL nebulization soln 3 ml inhalation 4X/DAY PRN sob 11/27/21 [History Last Taken 11/25/21] loratadine 10 mg tablet 10 mg PO DAILY allergies 11/27/21 [History Last Taken 12/25/21] sennosides 8.6 mg-docusate sodium 50 mg tablet (Stool Softener-Stimulant Laxative) 2 tab PO BID PRN PRN Constipation #0 tabs 11/30/21 [Rx Last Taken Unknown] gabapentin 400 mg capsule 400 mg PO TIDCM pain 12/26/21 [History Last Taken Unknown] insulin lispro 100 unit/mL subcutaneous pen (Humalog KwikPen (U-100) Insulin) See Protocol subcut ACHS PRN diabetes 12/26/21 [History Last Taken Unknown] acetaminophen 500 mg tablet 1,000 mg PO Q8 #0 tabs 02/18/22 [Rx Last Taken Unknown] cefepime 2 gram solution for injection 2 g IV Q8H #114 ea 02/18/22 [Rx Last Taken Unknown] citalopram 20 mg tablet 20 mg PO DAILY #30 tabs 02/18/22 [Rx Last Taken Unknown] fentanyl 50 mcg/hr transdermal patch 50 mcg transdermal Q3D 3 days #2 ea 02/18/22 [Rx Last Taken Unknown] oxycodone 10 mg tablet 10 mg PO Q4H PRN pain 3 days #18 tabs 02/18/22 [Rx Last Taken Unknown] vancomycin 500 mg/100 mL in dextrose 5 % intravenous piggyback 500 mg IV Q12H 38 days 02/18/22 [Rx Last Taken Unknown] Allergy/AdvReac Type Severity Reaction Status Date / Time [facility] Allergy Unknown Verified 02/22/22 12:41 pregabalin [From Lyrica] Allergy Unknown Verified 02/22/22 12:41 Penicillins AdvReac Mild leaves a Verified 02/22/22 12:41 bad taste in her mouth. NSAIDS (Non-Steroidal AdvReac Upset Verified 02/22/22 12:41 Anti-Inflamma Stomach Family History Father Cancer Unclear type. Mother Lung cancer Concurrent tobacco use history. Surgical History History of ankle surgery History of History of carpal tunnel release History of hysterectomy History of open reduction and internal fixation (ORIF) procedure History of partial thyroidectomy Social History household members: none Smoking Status: Current every day smoker tobacco type: cigarettes alcohol intake: never substance use type: does not use ROS ROS ED Constitutional Constitutional ED: Denies chills or weight loss Eyes Eyes: Reports blurry vision and change in vision; Denies diplopia ENT ENT ED: Denies ear pain, rhinorrhea or sore throat Cardiovascular Cardiovascular: Denies chest pain, orthopnea, palpitations or racing heartbeat Respiratory/Chest Respiratory/Chest: Denies cough, dyspnea or orthopnea Gastrointestinal Gastrointestinal: Denies abdominal pain, diarrhea, nausea or vomiting Genitourinary Genitourinary ED: Denies dysuria, hematuria or urinary frequency Musculoskeletal Musculoskeletal: Denies arthralgias or myalgias Integumentary Denies abscess or rash Neurologic Neurologic: Denies headache(s) or weakness Psychiatric Psychiatric: Denies anxiety, depression, suicidal ideation or suicidal thoughts Endocrine Endocrinology: Denies polydipsia, polyphagia or polyuria Allergic/Immunologic Allergic/Immunologic ED: Denies mouth swelling, tongue swelling or urticaria EXAM Physical Exam Narrative Exam Narrative: Patient appears emotionally distressed Const Vital Signs: 02/22/22 12:36 02/22/22 12:39 02/22/22 13:56 Temperature 97.9 F 98.4 F Temperature Source Temporal Temporal Pulse Rate 96 94 95 Respiratory Rate 18 18 20 H Blood Pressure 195/98 H 195/98 H 195/116 H Blood Pressure Mean 130 130 142 Pulse Ox 97 99 97 Oxygen Delivery Method Room Air Room Air Room Air 02/22/22 14:00 02/22/22 14:55 02/22/22 15:00 Temperature Temperature Source Pulse Rate 96 Respiratory Rate 24 H Blood Pressure 206/104 H 191/107 H 166/93 H Blood Pressure Mean 138 135 117 Pulse Ox 99 Oxygen Delivery Method Room Air Positive well nourished and well developed General Appearance ED: well developed HEENT Reports normocephalic, head/scalp atraumatic and moist mucous membranes Eyes PERRL and EOMs intact bilaterally Eyes Narrative: There is no conjunctival injection. Anterior chambers appear quiet. Funduscopic exam does not show any retinal detachment. Neck no lymphadenopathy, supple and no JVD Resp normal respiratory effort and clear to auscultation bilaterally Cardio regular rate, regular rhythm and no murmurs GI normal to inspection, nondistended, normoactive bowel sounds and non-tender Palpation: soft Back/Spine no CVA tenderness and normal ROM Extremity normal to inspection General Extremety ED: Negative for edema General Extremity: Negative for edema Neuro oriented x3 and CN's II-XII intact bilaterally Sensorium / Orientation: alert Motor Exam: strength 5/5 throughout Psych mental status grossly normal Psych Narrative: Pressured speech Mood & Affect: anxious and tearful; Negative for depressed Skin no rashes or lesions noted and no wounds MDM MDM MDM Narrative Medical decision making narrative: Patient received ativan was able to fall asleep. Even while she was asleep she remained significantly hypertensive. BP max 213/110. White count returned at 2.5 with a hemoglobin 11.9 platelet count 329. Creatinine 1.02. Troponin 39. Mitral rotation of the chest x-ray is no acute process. CT of the's obtained and shows could be consistent with press. Given her blurry vision and hypertensive urgency I think this is most likely. Patient received a dose of hydralazine her pressures have decreased by about 15%. I will speak with the hospital regarding admission Lab Data Attestation: I reviewed the patient's lab results. Labs: Laboratory Results - last 24 hr 02/22/22 02/22/22 13:53 13:53 WBC 2.5 L RBC 4.37 Hgb 11.9 L Hct 36.0 L MCV 82.4 D MCH 27.2 MCHC 33.1 D RDW Std Deviation 47.7 H RDW Coeff of Yudelka 15.9 H Plt Count 329 MPV 10.9 Immature Gran % (Auto) 0.400 Neut % (Auto) 39.4 L Lymph % (Auto) 36.7 [place] % (Auto) 22.7 H Eos % (Auto) 0.4 Baso % (Auto) 0.4 Absolute Neuts (auto) 1.0 L Absolute Lymphs (auto) 0.92 Nucleated RBC % 0 Sodium 131 L Potassium 3.3 L Chloride 100 Carbon Dioxide 21.0 Anion Gap 10 BUN 20 H Creatinine 1.02 Estim Creat Clear Calc 45.92 Est GFR (MDRD) Af Amer 72 Est GFR (MDRD) Non-Af 59 L BUN/Creatinine Ratio 19.6 Glucose 376 H Calcium 9.6 Total Bilirubin 0.60 AST 170 H ALT 161 H Alkaline Phosphatase 115 Troponin I High Sens 39 Total Protein 7.2 Albumin 3.1 L Globulin 4.1 Albumin/Globulin Ratio 0.8 L Radiography Diagnostic Testing: Clinical Impression(s) from Imaging Studies Brain CT 02/22/22 13:32 IMPRESSION: Hypoattenuation in the left more than right upper and posterior cerebral hemisphere white matter may represent posterior reversible encephalopathy syndrome, with ischemic changes less likely. Electronically Signed: Delon Andrea MD at 14:36 EDT , Chest X-Ray 02/22/22 14:00 IMPRESSION: No acute abnormality is seen. Electronically Signed: Joaquin Rodney MD at 14:28 EDT , EKG Initial EKG: Attestation: I personally reviewed and interpreted this EKG as follows: Comments: Sinus rhythm with a ventricular rate of 89 bpm. PACs noted Discharge Plan Dx/Rx/DC Orders Clinical Impression: PRES (posterior reversible encephalopathy syndrome), Changes in vision, Type 2 diabetes mellitus, Essential hypertension Disposition Disposition: Acute Care [facility]
[2022-02-22] MEDS: LORazepam 2 MG/ML Syringe 1 MG IV (13:47)
[2022-02-22 14:00] LABS: Absolute Lymphocyte Count 0.92 X10^3/uL (0.83-4.51); Basophil# 0.01 X10^3/uL; Basophil% 0.4 % (0-1); Eosinophil# 0.01 X10^3/uL; Eosinophils% 0.4 % (0-5); Hemoglobin 11.9 g/dL (12.0-15.0); Lymphocyte # 0.92 X10^3/ul (0.83-4.51); Lymphocyte % 36.7 % (19-41); Mean Corp Hgb Conc 33.1 g/dL (32-36); Mean Corpuscular Hgb 27.2 pg (27.0-32.0); Mean Corpuscular Volume 82.4 fL (81-99); Mean Platelet Vol. 10.9 fl (6.2-12.0); Monocyte# 0.57 X10^3/uL; Monocyte% 22.7 % (0-10); NRBC Flagged by Analyzer 0 % (0-5); Neutrophil # 0.99 X10^3/uL (2.7-7.7); Neutrophil % 39.4 % (47-70); POSITIVE DIFFERENTIAL YES; Platelet Count 329 K/mm3 (150-450); RBC Distribution Width CV 15.9 % (11.6-14.6); RBC Distribution Width SD 47.7 fl (35.1-43.9); Red Blood Count 4.37 M/mm3 (4.2-5.4); White Blood Count 2.5 K/mm3 (4.4-11.0)
--- NOTE | 2022-02-22 14:00 | RAD_ITS ---
STUDY: X-RAY CHEST REASON FOR EXAM: Female, 56 years old. Hypertension TECHNIQUE: Single AP portable view of the chest. COMPARISON: Comparison is made with prior examination dated 09/27/2021. FINDINGS: EKG electrodes are seen. A right-sided PICC line catheter is in situ. The tip is in the right atrium. EKG electrodes are seen. The lungs are clear and expanded. There is no demonstrated pleural abnormality. Normal size heart. Normal mediastinum and judah. Normal visualized pulmonary arteries. Normal visualized aortic arch and descending thoracic aorta. There are diffuse degenerative changes of the visualized thoracic spine. Normal visualized ribs, clavicles, and shoulders. There is no demonstrated abnormality of the visualized soft tissue structures of the upper abdomen. RAD/Chest 1 View (Portable) IMPRESSION: No acute abnormality is seen. Electronically Signed: Joaquin Rodney MD at 14:28 EDT ,
[2022-02-22 14:04] LABS: Differential Indicated SCAN CRITERIA MET
[2022-02-22 14:24] LABS: ALB/GLOB Ratio 0.8 RATIO (0.9-2.4); AST(SGOT) 170 U/L (15-37); Alanine Aminotransfer ALT/SGPT 161 U/L (13-56); Albumin, Serum 3.1 g/dL (3.2-5.0); Alkaline Phosphatase 115 U/L (45-117); Anion Gap 10 (5-15); BUN 20 mg/dL (7-18); BUN/Creat Ratio 19.6 RATIO (10-20); Calcium,Total 9.6 mg/dL (8.5-10.1); Chloride 100 mmol/L (98-107); Creatinine, Serum 1.02 mg/dL (0.55-1.02); EST Glomerular Filtration Rate 59 mL/min (>60); Est Glom Filt Rate - Afr Amer 72 mL/min (>60); Estimated Creatinine Clearance 45.92 ml/min; Globulin 4.1 g/dL (2.2-4.2); Glucose 376 mg/dL (74-106); Potassium 3.3 mmol/L (3.5-5.1); Protein, Total 7.2 g/dL (6.4-8.2); Sodium Level 131 mmol/L (136-145); Troponin-I HS 39 pg/mL (3.0-54.0)
[2022-02-22] MEDS: hydrALAZINE 20 MG/ML Vial IV (14:52)
--- NOTE | 2022-02-22 15:33 | HP.PCM.HOS_ITS ---
HPI - General General Date of Admission: 02/22/22 Date of Service: 02/22/22 Chief Complaint: blurred vision HPI Narrative MILY CHILDRESS, is a 56 F with a PMH as outlined who was admitted via the ED with a complaint of blurred vision. She started having blurred vision today and started feeling very anxious. She felt she was going to have convulsions. Patient was quite confused when I saw her. She said she thought she had a back infection. S he admitted to being confused. She denied any headache, chest pain, blurred vision, dizziness, nausea or vomiting. Review of systems is otherwise negative. On admission, BP was markedly elevated at 206/104, with temp of 98.4F and RR of 24 initially. She was saturating at 99% on room air. CBC showed hemoglobin of 11.9 with WBC of 2.5 and platelets of 329. Chemistry shows sodium of 131 with potassium of 3.3 and creatinine of 1.02. EKG showed no acute ST changes. Chest x-ray showed no acute cardiopulmonary process. BP came down to the 150s and 160s after she was given IV hydralazine. CT of the brain showed hypoattenuation in the left more than the right upper and posterior cerebral hemisphere white matter representing posterior reversible encephalopathy syndrome with ischemic changes less likely. She has been admitted to be managed for hypertensive emergency with probable PRES. [facility] Medical History Anxiety Arthritis Asthma Back pain Back pain Cardiology follow-up encounter Chronic neck and back pain COPD (chronic obstructive pulmonary disease) Coronary artery calcification seen on CAT scan CPAP (continuous positive airway pressure) dependence Depression Diabetes Dietary restriction Difficulty balancing Essential hypertension Gastric reflux High cholesterol History of arthritis History of echocardiogram History of edema History of pain when walking History of renal disease History of stomach ulcers History of stress test Hyperlipidemia Hypertension Injury of head and neck Insulin dependent diabetes mellitus Knee pain Lumbar stenosis Migraine headache Obesity Shortness of breath on exertion Shoulder pain Sleep apnea Smoker Strain of muscle, fascia and tendon of pelvis, initial encounter Strain of right hip and thigh Strain of right inguinal region Strain of unspecified muscles, fascia and tendons at thigh level, right thigh, initial encounter Syncope Thyroid disease Type 2 diabetes mellitus Walker as ambulation aid Wears glasses Wears hearing aid Home Medications insulin glargine 100 unit/mL (3 mL) subcutaneous pen 37 unit subcut DAILY DIABETES 11/03/20 [History Last Taken 12/25/21] albuterol sulfate 90 mcg/actuation aerosol inhaler 2 puff inhalation Q6H PRN SOB 06/14/21 [History Last Taken 12/25/21] atorvastatin 80 mg tablet 80 mg PO QHS CHOLESTEROL 06/14/21 [History Last Taken 12/23/21] budesonide-formoterol HFA 160 mcg-4.5 mcg/actuation aerosol inhaler (Symbicort) 2 puff inhalation BID ASTHMA 06/14/21 [History Last Taken 12/25/21] lisinopril 20 mg-hydrochlorothiazide 25 mg tablet 1 tab PO BID BP 06/14/21 [History Last Taken 12/25/21] pantoprazole 40 mg tablet,delayed release 40 mg PO DAILY GERD 06/14/21 [History Last Taken 12/25/21] tizanidine 4 mg capsule 4 mg PO BID PRN Muscle Pain 06/14/21 [History Last Taken 12/18/21] amitriptyline 100 mg tablet 100 mg PO QHS sleep 11/27/21 [History Last Taken 12/25/21] ipratropium 0.5 mg-albuterol 3 mg (2.5 mg base)/3 mL nebulization soln 3 ml inhalation 4X/DAY PRN sob 11/27/21 [History Last Taken 11/25/21] loratadine 10 mg tablet 10 mg PO DAILY allergies 11/27/21 [History Last Taken 12/25/21] sennosides 8.6 mg-docusate sodium 50 mg tablet (Stool Softener-Stimulant Laxative) 2 tab PO BID PRN PRN Constipation #0 tabs 11/30/21 [Rx Last Taken Unknown] gabapentin 400 mg capsule 400 mg PO TIDCM pain 12/26/21 [History Last Taken Unknown] insulin lispro 100 unit/mL subcutaneous pen (Humalog KwikPen (U-100) Insulin) See Protocol subcut ACHS PRN diabetes 12/26/21 [History Last Taken Unknown] acetaminophen 500 mg tablet 1,000 mg PO Q8 #0 tabs 02/18/22 [Rx Last Taken Unknown] cefepime 2 gram solution for injection 2 g IV Q8H #114 ea 02/18/22 [Rx Last Taken Unknown] citalopram 20 mg tablet 20 mg PO DAILY #30 tabs 02/18/22 [Rx Last Taken Unknown] fentanyl 50 mcg/hr transdermal patch 50 mcg transdermal Q3D 3 days #2 ea 02/18/22 [Rx Last Taken Unknown] oxycodone 10 mg tablet 10 mg PO Q4H PRN pain 3 days #18 tabs 02/18/22 [Rx Last Taken Unknown] vancomycin 500 mg/100 mL in dextrose 5 % intravenous piggyback 500 mg IV Q12H 38 days 02/18/22 [Rx Last Taken Unknown] Allergy/AdvReac Type Severity Reaction Status Date / Time duloxetine [From Cymbalta] Allergy Unknown Verified 02/22/22 12:41 pregabalin [From Lyrica] Allergy Unknown Verified 02/22/22 12:41 Penicillins AdvReac Mild leaves a Verified 02/22/22 12:41 bad taste in her mouth. NSAIDS (Non-Steroidal AdvReac Upset Verified 02/22/22 12:41 Anti-Inflamma Stomach Family History Father Cancer Unclear type. Mother Lung cancer Concurrent tobacco use history. Surgical History History of ankle surgery History of History of carpal tunnel release History of hysterectomy History of open reduction and internal fixation (ORIF) procedure History of partial thyroidectomy Social History household members: none Smoking Status: Current every day smoker tobacco type: cigarettes alcohol intake: never substance use type: does not use ROS Constitutional Constitutional: Reports fatigue and malaise; Denies anorexia, chills, fever(s) or weakness Eyes Eyes: Denies change in vision ENT HEENT: Denies dysphagia Cardiovascular Cardiovascular: Denies chest pain, dyspnea on exertion, edema, lightheadedness, orthopnea, palpitations, paroxysmal nocturnal dyspnea, rapid heart rate or syncope Respiratory/Chest Respiratory/Chest: Reports excessive phlegm production; Denies cough, dyspnea, hemoptysis, productive cough, shortness of breath at rest or shortness of breath with exertion Gastrointestinal Gastrointestinal: Denies abdominal pain, dyspepsia, nausea or vomiting Genitourinary Genitourinary: Denies burning urination Musculoskeletal Musculoskeletal: Denies arthralgias Neurologic Neurologic: Reports dizziness; Denies confusion, headache(s), numbness, paresthesias, seizures, syncope or tremor(s) Psychiatric Psychiatric: Reports anxiety; Denies depression Vital Signs Vital Signs Vital Signs: 02/22/22 12:36 02/22/22 12:39 02/22/22 13:56 Temperature 97.9 F 98.4 F Temperature Source Temporal Temporal Pulse Rate 96 94 95 Respiratory Rate 18 18 20 H Blood Pressure 195/98 H 195/98 H 195/116 H Blood Pressure Mean 130 130 142 Pulse Ox 97 99 97 Oxygen Delivery Method Room Air Room Air Room Air 02/22/22 14:00 02/22/22 14:55 02/22/22 15:00 Temperature Temperature Source Pulse Rate 96 Respiratory Rate 24 H Blood Pressure 206/104 H 191/107 H 166/93 H Blood Pressure Mean 138 135 117 Pulse Ox 99 Oxygen Delivery Method Room Air Weight Weight: 149 lb 9.6 oz Body Mass Index (BMI) 28.3 Physical Exam Const alert and oriented x3 Constitutional Narrative: lethargic Orientation / Consciousness: lethargic HEENT normocephalic, head/scalp atraumatic and moist oral mucous membranes Eyes PERRL, EOMs intact bilaterally and conjunctivae normal Neck no lymphadenopathy, supple and no JVD Resp normal respiratory effort, no retractions, no use of accessory muscles and clear to auscultation bilaterally Cardio regular rate, regular rhythm, S1 normal heart sound, S2 normal heart sound and no murmurs GI normal to inspection, nondistended, normoactive bowel sounds, soft to palpation, non-tender and non-distended Extremity normal to inspection, full ROM and no clubbing, cyanosis or edema Neuro oriented x3, CN's II-XII intact bilaterally, moves all extremities and no focal motor deficits Sensorium / Orientation: awake Speech: speech normal Motor Exam: strength 5/5 throughout Psych Psych Narrative: lethargic Results Lab / Micro Data Result Diagrams: 02/22/22 13:53 02/22/22 13:53 Labs: Laboratory Results - last 24 hr 02/22/22 13:53: WBC 2.5 L, RBC 4.37, Hgb 11.9 L, Hct 36.0 L, MCV 82.4 D, MCH 27.2, MCHC 33.1 D, RDW Std Deviation 47.7 H, RDW Coeff of Yudelka 15.9 H, Plt Count 329, MPV 10.9, Immature Gran % (Auto) 0.400, Neut % (Auto) 39.4 L, Lymph % (Auto) 36.7, [place] % (Auto) 22.7 H, Eos % (Auto) 0.4, Baso % (Auto) 0.4, Absolute Neuts (auto) 1.0 L, Absolute Lymphs (auto) 0.92, Nucleated RBC % 0 02/22/22 13:53: Sodium 131 L, Potassium 3.3 L, Chloride 100, Carbon Dioxide 21.0, Anion Gap 10, BUN 20 H, Creatinine 1.02, Estim Creat Clear Calc 45.92, Est GFR (MDRD) Af Amer 72, Est GFR (MDRD) Non-Af 59 L, BUN/Creatinine Ratio 19.6, Glucose 376 H, Calcium 9.6, Total Bilirubin 0.60, AST 170 H, ALT 161 H, Alkaline Phosphatase 115, Troponin I High Sens 39, Total Protein 7.2, Albumin 3.1 L, Globulin 4.1, Albumin/Globulin Ratio 0.8 L Micro: Microbiology 02/22/22 14:35 Nasal Secretion SARS-CoV-2 Antigen (Rapid) - Final Radiology Impression Brain CT 02/22/22 13:32 IMPRESSION: Hypoattenuation in the left more than right upper and posterior cerebral hemisphere white matter may represent posterior reversible encephalopathy syndrome, with ischemic changes less likely. Electronically Signed: Delon Andrea MD at 14:36 EDT , Chest X-Ray 02/22/22 14:00 IMPRESSION: No acute abnormality is seen. Electronically Signed: Joaquin Rodney MD at 14:28 EDT , Assessment & Plan Assessment/Plan (1) PRES (posterior reversible encephalopathy syndrome): (2) Hypertensive emergency: PLAN: Plan #Hyeprensive emergency with posterior reversible encephalopathy syndrome * admit to PCU * BP has improved and was down to 146/87 at time of review * CT of the brain showed hypoattenuation in the left more than right upper and posterior cerebral hemisphere white matter representing posterior reversible encephalopathy syndrome, with ischemic changes less likely * resume her BP meds- on lisinopril and HCTZ * IV hydralazine. * #TYpe 2 diabetes mellitus: * on lantus 37 units daily. * ISS. Accuchecks ACHS * #Hyperlipidemia: on atorvastatin #Degenerative disc disease * on tylenol and gabapentin. * Also on fentanyl patch. * Hold fentanyl patch and gabapentin due to patient's confusion. * #GERD: on PPI DVT prophylaxis: lovenox Code status: full code * Patient counseled extensively about different types of CODE STATUS including full code, DNR CCA and DNR CCA. Patient elects to be full code. * Total [id number]-[id number] time 16 minutes. Charges/Coding Visit Charges OBSV E&M: 57044 Initial observation care L3 Procedures Hospitalists Procedures: 25980 Advncd Care Plan 30 Min
[2022-02-22] MEDS: Amitriptyline 100 MG Tablet PO (22:36)
[2022-02-22] MEDS: Potassium Chloride Oral Tablet 20 MEQ 40 MEQ PO (22:36)
[2022-02-22] MEDS: Atorvastatin Calcium 80 MG Tablet PO (22:37)
[2022-02-22] MEDS: hydroCHLOROthiazide 12.5mg 12.5 MG PO (22:37)
[2022-02-22] MEDS: Lisinopril 20 MG Tablet PO (22:38)
[2022-02-22] MEDS: Insulin Glargine-YFGN 100 UNIT/ML Pen 46 UNIT SC (22:38)
[2022-02-22 23:06] LABS: Bedside Glucose 276 mg/dL (74-106)
[2022-02-23] VITALS (10 sets, daily range): BP systolic 137–152; BP diastolic 79–101; PULSE 65–104; RESP 14–18; TEMP 36.6–37.4; O2SAT 98–99
[2022-02-23] MEDS: CLARIFY ORDER NOTE (05:01)
[2022-02-23 07:24] LABS: Absolute Lymphocyte Count 1.35 X10^3/uL (0.83-4.51); Absolute Neutrophil Count 1.3 X10^3/uL (2.0-7.7); Basophil# 0.02 X10^3/uL; Basophil% 0.6 % (0-1); Eosinophil# 0.14 X10^3/uL; Eosinophils% 3.9 % (0-5); Hematocrit 37.9 % (37-47); Hemoglobin 12.3 g/dL (12.0-15.0); Lymphocyte # 1.35 X10^3/ul (0.83-4.51); Lymphocyte % 37.6 % (19-41); Mean Corp Hgb Conc 32.5 g/dL (32-36); Mean Corpuscular Volume 83.3 fL (81-99); Mean Platelet Vol. 11.2 fl (6.2-12.0); Monocyte# 0.73 X10^3/uL; Monocyte% 20.3 % (0-10); NRBC Flagged by Analyzer 0 % (0-5); Neutrophil # 1.33 X10^3/uL (2.7-7.7); Platelet Count 349 K/mm3 (150-450); RBC Distribution Width CV 16.3 % (11.6-14.6); RBC Distribution Width SD 50.2 fl (35.1-43.9); Red Blood Count 4.55 M/mm3 (4.2-5.4); White Blood Count 3.6 K/mm3 (4.4-11.0)
--- NOTE | 2022-02-23 07:30 | MRI_ITS ---
We are attempting to reach an attending provider to discuss findings. An addendum with communication details will be sent when the communication is complete. EXAM: MR HEAD WITHOUT INTRAVENOUS CONTRAST CLINICAL INDICATION: Acute encephalopathy. TECHNIQUE: Multiplanar and multisequence MR images of the brain were obtained without intravenous contrast. This report was created using anywayanyday report generation technology. COMPARISON: CT head without contrast 02/22/2022. FINDINGS: BRAIN AND EXTRA-AXIAL SPACES: Minimal diffusion restriction in both posterior parietal lobes near the midline. These are also visible on the T2 FLAIR sequence. Larger T2 FLAIR high signal abnormality involving more of the posterior parietal lobe cortices and the left central lobe cortex. The locations are suspicious for posterior reversible encephalopathy syndrome. No intra- or extra-axial hemorrhage. No evidence of acute infarct. There is preservation of the cardenas/white matter interface. Posterior fossa structures are unremarkable. Basal cisterns are patent. SELLA: Unremarkable. Normal sella turcica, pituitary gland, infundibular stalk, optic chiasm and hypothalamus. AUDITORY SYSTEM: Unremarkable. The internal auditory canals are patent. BONES/JOINTS: Unremarkable. No discrete lytic or blastic abnormalities. SINUSES: Unremarkable as visualized. Clear. MASTOID AIR CELLS: Unremarkable as visualized. Clear. ORBITS: Unremarkable as visualized. Both globes, extraocular muscles, optic nerves and retrobulbar fat appear unremarkable. VASCULATURE: Unremarkable as visualized. Normal flow voids in the major intracranial circulation. OPINION: Abnormal MRI brain suspicious for acute hypertensive encephalopathy/posterior reversible encephalopathy syndrome as described above. Advise clinical correlation. Electronically Signed: Song Montejo MD at 11:57 EDT , MRI/Brain without Contrast IMPRESSION: undefined
[2022-02-23 08:06] LABS: Bedside Glucose 206 mg/dL (74-106)
[2022-02-23 08:31] LABS: AST(SGOT) 202 U/L (15-37); Alanine Aminotransfer ALT/SGPT 265 U/L (13-56); Albumin, Serum 2.9 g/dL (3.2-5.0); Alkaline Phosphatase 117 U/L (45-117); Anion Gap 8 (5-15); BUN 22 mg/dL (7-18); BUN/Creat Ratio 26.3 RATIO (10-20); Bilirubin, Direct 0.32 mg/dL (0.00-0.30); Calcium,Total 9.5 mg/dL (8.5-10.1); Chloride 106 mmol/L (98-107); Creatinine, Serum 0.84 mg/dL (0.55-1.02); EST Glomerular Filtration Rate 74 mL/min (>60); Est Glom Filt Rate - Afr Amer 90 mL/min (>60); Estimated Creatinine Clearance 55.76 ml/min; Glucose 200 mg/dL (74-106); Magnesium 1.7 mg/dL (1.6-2.6); Phosphorus 2.1 mg/dL (2.5-4.9); Potassium 3.7 mmol/L (3.5-5.1); Protein, Total 6.9 g/dL (6.4-8.2); Sodium Level 136 mmol/L (136-145)
[2022-02-23] MEDS: Insulin Lispro 100 UNIT/ML INSULN.PEN 8 UNIT SC ×2 (09:01→18:06)
[2022-02-23] MEDS: Insulin Lispro 100 UNIT/ML INSULN.PEN SC ×2 (09:02→18:07)
[2022-02-23] MEDS: Acetaminophen 500 MG Tablet 1000 MG PO (09:04)
[2022-02-23] MEDS: Pantoprazole Sodium 40 MG Tablet PO (09:06)
[2022-02-23] MEDS: Loratadine 10 MG Tablet PO (09:06)
[2022-02-23] MEDS: Lisinopril 20 MG Tablet PO ×2 (09:08→22:58)
[2022-02-23] MEDS: hydroCHLOROthiazide 12.5mg 12.5 MG PO ×2 (09:08→22:58)
--- NOTE | 2022-02-23 09:29 | ECHOCS_ITS ---
Reason For Study: HTN Procedure This was a 2D Doppler, Color Flow transthoracic echocardiogram. Technically difficult study, contrast injection performed. Patient was unable to stay in position or tolerate probe pressure due to body pain. Exam performed portable in patient room. Left Ventricle Image quality is fair-6 out of 10 Overall left ventricular systolic function is preserved, visually estimated left ventricular ejection fraction is 65 to 70% LV cavity size is at the lower end of normal and there is near cavity obliteration in systole No regional wall motion abnormalities appreciated There is moderate concentric left ventricular hypertrophy There is diastolic dysfunction. Right Ventricle RV systolic function appears normal. RV size appears normal The RV free wall is echodense and shaggy, significance of this echodense and shaggy appearance of the RV free wall is unclear. There is an anterior echo-free space which probably represents epicardial fat pad. Clinical correlation advised. Atria Left atrial size is at the upper limits of normal. Normal right atrium. There is lipomatous hypertrophy of the interatrial septum. Mitral Valve The mitral valve is structurally normal. No prolapse or stenosis seen. Tricuspid Valve Normal tricuspid valve. There is no appreciable tricuspid regurgitation, PA systolic pressure was not estimated. Aortic Valve Tricuspid aortic valve, there is no aortic stenosis, leaflets are thickened, there is no aortic regurgitation. Pulmonic Valve Pulmonic valve is not adequately visualized. Medication Diluted definity 4ml given slow IV push to enhance endocardial definition. MMode/2D Measurements & Calculations LVIDd: 4.0 cm IVSd: 1.6 cm Ao root diam: 3.1 cm LVIDs: 3.0 cm LVPWd: 1.2 cm LA dimension: 3.3 cm FS: 25.2 % Time Measurements MV dec time: 0.26 sec Doppler Measurements & Calculations MV E max armen: 46.9 cm/sec Lat Peak E' Armen: 1.8 cm/sec Med Peak E' Armen: 6.4 cm/sec MV A max armen: 101.4 cm/sec E/E' lat: 26.0 E/E' med: 7.3 MV E/A: 0.46 Ao V2 max: 139.1 cm/sec LV V1 max: 88.9 cm/sec PA V2 max: 83.8 cm/sec Ao max P.7 mmHg LV V1 max P.2 mmHg ECHO/Echo Complete W/ Contrast Interpretation Summary Technically difficult study with overall preserved LV systolic function no obvi ous wall motion abnormality LVEF about 60 to 65% moderate concentric left ventricular hypertrop hy and diastolic dysfunction Chamber dimensions are normal aortic valve leaflets are thickened without aorti c stenosis or regurgitation, RV free wall has a shaggy echodense appearance, significance of which is unclear, if this patient has had prior pericardial effusion that would explain this appeara nce. Clinical correlation is advised There is a small anterior echo-free space which could represent epicardial fat pad. Compared to previous echo report from July 2021, there are no significant c hanges. Technically difficult study with overall preserved LV systolic function no obvi ous wall motion abnormality LVEF about 60 to 65% moderate concentric left ventricular hypertrop hy and diastolic dysfunction Chamber dimensions are normal aortic valve leaflets are thickened without aorti c stenosis or regurgitation, RV free wall has a shaggy echodense appearance, significance of which is unclear, if this patient has had prior pericardial effusion that would explain this appeara nce. Clinical correlation is advised There is a small anterior echo-free space which could represent epicardial fat pad. Compared to previous echo report from July 2021, there are no significant c hanges. Ordering Physician: Dory Cid Referring Physician: Gris Fofana [employer] Performed By: Asaf Brown RCS
[2022-02-23] MEDS: oxyCODONE 5 MG Tablet PO ×3 (12:15→22:55)
[2022-02-23 12:20] LABS: Bedside Glucose 94 mg/dL (74-106)
--- NOTE | 2022-02-23 13:36 | TELEMED_ITS ---
[facility] has confirmed receipt of a request for visit. This document confirms receipt of the order initiating the consult. To find the results of the consultation, please view the patient's reports for the scanned Telemed Consult.
--- NOTE | 2022-02-23 13:40 | PN.HOSP_ITS ---
Subjective Subjective Patient seen and examined. She still feels weak and lethargic. She denies any headache, chest pain, blurred vision, nausea, vomiting or diarrhea. Review of systems is otherwise negative. BP is still elevated at 151/85 this morning. Objective Data Objective Data Vital Signs: Vital Signs Temp Pulse Resp BP Pulse Ox 98.1 F 102 H 16 151/85 H 98 02/23/22 08:49 02/23/22 08:49 02/23/22 08:49 02/23/22 08:49 02/23/22 08:49 Oxygen Delivery Method Room Air Weight: 144 lb 13.499 oz Body Mass Index (BMI) 27.3 Intake & Output: Intake and Output for Last 24 Hours 02/21/22 02/22/22 02/23/22 23:59 23:59 23:59 Intake Total 380 / 380 Balance 380 / 380 Medical Nutrition Assessment Dietitian: Malnutrition Criteria Met Start: 02/23/22 12:20 Freq: Status: Active Protocol: Document 02/23/22 12:20 RMA (Rec: 02/23/22 12:20 RMA [id number]) Nutrition Malnutrition Evidence of Malnutrition Exists Yes Malnutrition (moderate): Chronic Evidenced By Suboptimal Energy Intake ( Moderate),Weight Loss ( Moderate) Clinical Problem Chronic Disease or Condition Related Malnutrition Etiology Moderate protein-calorie malnutrition in the context of chronic disease related to inadequate oral intake Signs/Symptoms as evidenced by~6-7% wt loss x 2-3 months and Po meeting less than 75% estimated nutrition needs Status Active Problem Recommendation Dietitian Recommendations/Changes 2000 calorie/consistent carbohydrate; cardiac diet 120 ml glucerna shake TID w/ medpass as tolerated Lab / Micro Data Result Diagrams: 02/23/22 06:31 02/23/22 06:31 Labs: Laboratory Results - last 24 hr 02/22/22 13:53: WBC 2.5 L, RBC 4.37, Hgb 11.9 L, Hct 36.0 L, MCV 82.4 D, MCH 27.2, MCHC 33.1 D, RDW Std Deviation 47.7 H, RDW Coeff of Yudelka 15.9 H, Plt Count 329, MPV 10.9, Immature Gran % (Auto) 0.400, Neut % (Auto) 39.4 L, Lymph % (Auto) 36.7, [place] % (Auto) 22.7 H, Eos % (Auto) 0.4, Baso % (Auto) 0.4, Absolute Neuts (auto) 1.0 L, Absolute Lymphs (auto) 0.92, Nucleated RBC % 0 02/22/22 13:53: Sodium 131 L, Potassium 3.3 L, Chloride 100, Carbon Dioxide 21.0, Anion Gap 10, BUN 20 H, Creatinine 1.02, Estim Creat Clear Calc 45.92, Est GFR (MDRD) Af Amer 72, Est GFR (MDRD) Non-Af 59 L, BUN/Creatinine Ratio 19.6, Glucose 376 H, Calcium 9.6, Total Bilirubin 0.60, AST 170 H, ALT 161 H, Alkaline Phosphatase 115, Troponin I High Sens 39, Total Protein 7.2, Albumin 3.1 L, Globulin 4.1, Albumin/Globulin Ratio 0.8 L 02/22/22 22:26: POC Glucose 276 H 02/23/22 06:31: WBC 3.6 L, RBC 4.55, Hgb 12.3, Hct 37.9, MCV 83.3, MCH 27.0, MCHC 32.5, RDW Std Deviation 50.2 H, RDW Coeff of Yudelka 16.3 H, Plt Count 349, MPV 11.2, Immature Gran % (Auto) 0.600, Neut % (Auto) 37.0 L, Lymph % (Auto) 37.6, [place] % (Auto) 20.3 H, Eos % (Auto) 3.9, Baso % (Auto) 0.6, Absolute Neuts (auto) 1.3 L, Absolute Lymphs (auto) 1.35, Nucleated RBC % 0 02/23/22 06:31: Sodium 136, Potassium 3.7, Chloride 106, Carbon Dioxide 22.0, Anion Gap 8, BUN 22 H, Creatinine 0.84, Estim Creat Clear Calc 55.76, Est GFR (MDRD) Af Amer 90, Est GFR (MDRD) Non-Af 74, BUN/Creatinine Ratio 26.3 H, Glucose 200 H, Calcium 9.5, Phosphorus 2.1 L, Magnesium 1.7, Total Bilirubin 0.80, Direct Bilirubin 0.32 H, AST 202 H, ALT 265 H, Alkaline Phosphatase 117, Total Protein 6.9, Albumin 2.9 L, Globulin 4.0 02/23/22 07:50: POC Glucose 206 H 02/23/22 12:11: POC Glucose 94 Micro: Microbiology 02/22/22 14:35 Nasal Secretion SARS-CoV-2 Antigen (Rapid) - Final Radiography Diagnostic Testing: Radiology Impression Brain CT 02/22/22 13:32 IMPRESSION: Hypoattenuation in the left more than right upper and posterior cerebral hemisphere white matter may represent posterior reversible encephalopathy syndrome, with ischemic changes less likely. Electronically Signed: Delon Andrea MD at 14:36 EDT , Chest X-Ray 02/22/22 14:00 IMPRESSION: No acute abnormality is seen. Electronically Signed: Joaquin Rodney MD at 14:28 EDT , Brain MRI 02/23/22 07:30 IMPRESSION: undefined ADDENDUM: 02/23/22 1325 IMPRESSION: undefined Physical Exam Const alert and oriented x3 Constitutional Narrative: lethargic Orientation / Consciousness: lethargic HEENT normocephalic, head/scalp atraumatic and moist oral mucous membranes Eyes PERRL, EOMs intact bilaterally and conjunctivae normal Neck no lymphadenopathy, supple and no JVD Resp normal respiratory effort, no retractions, no use of accessory muscles and clear to auscultation bilaterally Cardio regular rate, regular rhythm, S1 normal heart sound, S2 normal heart sound and no murmurs GI normal to inspection, nondistended, normoactive bowel sounds, soft to palpation, non-tender and non-distended Extremity normal to inspection, full ROM and no clubbing, cyanosis or edema Neuro oriented x3, CN's II-XII intact bilaterally, moves all extremities and no focal motor deficits Sensorium / Orientation: awake and alert Speech: speech normal Motor Exam: strength 5/5 throughout Psych Psych Narrative: lethargic Assessment & Plan Assessment/Plan (1) PRES (posterior reversible encephalopathy syndrome): (2) Hypertensive emergency: PLAN: Plan #Hyeprensive emergency with posterior reversible encephalopathy syndrome * BP has improved but is not completely well controlled * CT of the brain showed hypoattenuation in the left more than right upper and posterior cerebral hemisphere white matter representing posterior reversible encephalopathy syndrome, with ischemic changes less likely * MRI of the brain today showed larger T2 FLAIR signaling abnormality involving hte posterior parietal lobe cortices and left central lobe cortex suspicious for PRES * on lisinopril 20mg bid and HCTZ 25mg bid * will add on PO metoprolol 25mg bid * IV hydralazine prn * 2D echo ordered * neurology consulted * #TYpe 2 diabetes mellitus: * on lantus 37 units daily. * ISS. Accuchecks ACHS * #Hyperlipidemia: on atorvastatin #Degenerative disc disease * on tylenol and gabapentin. * Also on fentanyl patch. * Hold fentanyl patch and gabapentin due to patient's confusion. * #GERD: on PPI DVT prophylaxis: lovenox Code status: full code Charges/Coding Visit Charges Inpatient E&M: 78712 Subs Hosp L2
[2022-02-23] MEDS: Metoprolol Tartrate 25 MG Tablet PO ×2 (14:27→22:57)
--- NOTE | 2022-02-23 16:00 | CASEMGMT ---
VERONICA TOMLIN Readmission Note: Prior admission: Admitted 02/12 w/intractable back pain. Pt discharged home 02/18/22 w/[facility] for SN/IV atb's and CSI/infusion co. Current admission: Admitted 02/22/22 w/hypertensive urgency. VERONICA TOMLIN to room to talk w/pt. Pt states she has been taking her medications as prescribed. She has upcoming appts w/Dr Cross and Dr Medellin. She had not scheduled appt w/PCP yet. She states would like to return home w/[facility] for IV atb therapy. She denies having any discharge planning needs or concerns. [facility] order placed. Green sheet placed on chart w/instructions for [facility] @ d/c. Noe LIN RN, CM
[2022-02-23] MEDS: Glucerna Shake 120 ML LIQUID PO (16:45)
[2022-02-23 18:41] LABS: Bedside Glucose 251 mg/dL (74-106)
--- NOTE | 2022-02-23 21:06 | PCM.RX.CS ---
Consult Pharmacy has been consulted to manage selected antiobiotic: Vancomycin Type of Consult: New start Suspected Infection: Osteomyelitis Labs: Sodium 136 mmol/L (136-145) 02/23/22 06:31 Potassium 3.7 mmol/L (3.5-5.1) 02/23/22 06:31 Chloride 106 mmol/L (98-107) 02/23/22 06:31 Carbon Dioxide 22.0 mmol/L (21.0-32.0) 02/23/22 06:31 Anion Gap 8 (5-15) 02/23/22 06:31 BUN 22 mg/dL (7-18) H 02/23/22 06:31 Creatinine 0.84 mg/dL (0.55-1.02) 02/23/22 06:31 Est GFR (MDRD) Af Amer 90 mL/min (>60) 02/23/22 06:31 Est GFR (MDRD) Non-Af 74 mL/min (>60) 02/23/22 06:31 BUN/Creatinine Ratio 26.3 RATIO (10-20) H 02/23/22 06:31 Glucose 200 mg/dL (74-106) H 02/23/22 06:31 Microbiology: Microbiology 02/22/22 14:35 Nasal Secretion SARS-CoV-2 Antigen (Rapid) - Final Weight used for dosin.7 kg Estimated Creatinine Clearance: 64.1 Goal Trough: 15-20 mcg/mL Pharmacy Plan for Drug Dosing: Pharmacy Service will continue to monitor and adjust dosing as required. PATIENT ON VANCO 500 Q12H PRIOR TO ADMISSION. ADMITTED ON 02/22, NOT ORDERED FOR INPATIENT UNTIL 02/23 @ 0830. CONTINUE ORDER OF 500MG Q12 PER DR CIFUENTES AND [facility] TO FOLLOW GOING FORWARD. Follow-Up Labs: Trough Vancomycin Labs to be done on [date and time ordered]: 02/25 @ 0830
[2022-02-23] MEDS: Atorvastatin Calcium 80 MG Tablet PO (22:57)
[2022-02-23] MEDS: Amitriptyline 100 MG Tablet PO (22:58)
[2022-02-23] MEDS: Insulin Glargine-YFGN 100 UNIT/ML Pen 46 UNIT SC (23:09)
[2022-02-23 23:16] LABS: Bedside Glucose 238 mg/dL (74-106)
[2022-02-23] MEDS: Vancomycin IV 500 MG/100 ML BAG 100 MG IV (23:36)
[2022-02-24] VITALS (10 sets, daily range): BP systolic 104–139; BP diastolic 67–81; PULSE 57–74; RESP 18–20; TEMP 36.6–36.7; O2SAT 96–99
[2022-02-24] MEDS: oxyCODONE 5 MG Tablet PO ×3 (05:33→17:23)
[2022-02-24 07:07] LABS: Absolute Lymphocyte Count 2.05 X10^3/uL (0.83-4.51); Absolute Neutrophil Count 0.9 X10^3/uL (2.0-7.7); Basophil# 0.02 X10^3/uL; Basophil% 0.5 % (0-1); Eosinophil# 0.26 X10^3/uL; Eosinophils% 6.4 % (0-5); Hematocrit 35.9 % (37-47); Hemoglobin 11.1 g/dL (12.0-15.0); Lymphocyte # 2.05 X10^3/ul (0.83-4.51); Lymphocyte % 50.7 % (19-41); Mean Corp Hgb Conc 30.9 g/dL (32-36); Mean Corpuscular Hgb 26.9 pg (27.0-32.0); Mean Corpuscular Volume 86.9 fL (81-99); Mean Platelet Vol. 11.4 fl (6.2-12.0); Monocyte# 0.84 X10^3/uL; Monocyte% 20.8 % (0-10); NRBC Flagged by Analyzer 0 % (0-5); Neutrophil # 0.85 X10^3/uL (2.7-7.7); Neutrophil % 21.1 % (47-70); POSITIVE DIFFERENTIAL YES; Platelet Count 286 K/mm3 (150-450); RBC Distribution Width CV 16.5 % (11.6-14.6); RBC Distribution Width SD 51.8 fl (35.1-43.9); Red Blood Count 4.13 M/mm3 (4.2-5.4)
[2022-02-24 07:20] LABS: Differential Indicated SCAN CRITERIA MET
[2022-02-24 07:27] LABS: Anion Gap 6 (5-15); BUN 31 mg/dL (7-18); BUN/Creat Ratio 28.2 RATIO (10-20); Calcium,Total 8.9 mg/dL (8.5-10.1); Chloride 105 mmol/L (98-107); EST Glomerular Filtration Rate 54 mL/min (>60); Est Glom Filt Rate - Afr Amer 66 mL/min (>60); Estimated Creatinine Clearance 42.58 ml/min; Glucose 118 mg/dL (74-106); Potassium 3.7 mmol/L (3.5-5.1); Sodium Level 134 mmol/L (136-145)
[2022-02-24 08:12] LABS: Differential Comment SCANNED
[2022-02-24] MEDS: Insulin Lispro 100 UNIT/ML INSULN.PEN 8 UNIT SC ×2 (09:29→17:17)
[2022-02-24] MEDS: Insulin Lispro 100 UNIT/ML INSULN.PEN SC ×2 (09:30→13:02)
[2022-02-24] MEDS: Vancomycin IV 500 MG/100 ML BAG 100 MG IV (09:32)
[2022-02-24] MEDS: Glucerna Shake 120 ML LIQUID PO ×2 (09:34→17:12)
[2022-02-24 09:42] LABS: Bedside Glucose 164 mg/dL (74-106)
[2022-02-24] MEDS: Enoxaparin 40 MG/0.4 ML Syringe SC (11:37)
[2022-02-24] MEDS: Loratadine 10 MG Tablet PO (11:39)
[2022-02-24] MEDS: Citalopram 20 MG Tablet PO (11:40)
[2022-02-24] MEDS: Pantoprazole Sodium 40 MG Tablet PO (11:46)
--- NOTE | 2022-02-24 12:24 | PCM.DC.SUM ---
Providers Date of Admission: 02/22/22 Date of Discharge: 02/24/22 Primary Care Physician: Gris Fofana NP Reason For Visit: HYPERTENSIVE EMERGENCY Diagnosis Discharge Diagnosis (1) PRES (posterior reversible encephalopathy syndrome): Status: Acute Code(s): I67.83 - Posterior reversible encephalopathy syndrome (2) Hypertensive emergency: Status: Acute Code(s): I16.1 - Hypertensive emergency Medications at Discharge Home Medications insulin glargine 100 unit/mL (3 mL) subcutaneous pen 46 unit subcut QHS DIABETES 11/03/20 albuterol sulfate 90 mcg/actuation aerosol inhaler 2 puff inhalation Q6H PRN SOB 06/14/21 atorvastatin 80 mg tablet 80 mg PO QHS CHOLESTEROL 06/14/21 budesonide-formoterol HFA 160 mcg-4.5 mcg/actuation aerosol inhaler (Symbicort) 2 puff inhalation BID ASTHMA 06/14/21 pantoprazole 40 mg tablet,delayed release 40 mg PO DAILY GERD 06/14/21 tizanidine 4 mg capsule 4 mg PO BID PRN Muscle Pain 06/14/21 amitriptyline 100 mg tablet 100 mg PO QHS sleep 11/27/21 ipratropium 0.5 mg-albuterol 3 mg (2.5 mg base)/3 mL nebulization soln 3 ml inhalation 4X/DAY PRN sob 11/27/21 loratadine 10 mg tablet 10 mg PO DAILY allergies 11/27/21 sennosides 8.6 mg-docusate sodium 50 mg tablet (Stool Softener-Stimulant Laxative) 2 tab PO BID PRN PRN Constipation #0 tabs 11/30/21 insulin lispro 100 unit/mL subcutaneous pen (Humalog KwikPen (U-100) Insulin) 8 unit subcut BID DM 12/26/21 acetaminophen 500 mg tablet 1,000 mg PO Q8H PRN Pain 02/22/22 citalopram 20 mg tablet 20 mg PO DAILY DEPRESSION 02/22/22 empagliflozin 10 mg tablet (Jardiance) 10 mg PO DAILY DM 02/22/22 fentanyl 50 mcg/hr transdermal patch 50 mcg transdermal Q3D PAIN 02/22/22 hydrochlorothiazide 25 mg tablet 25 mg PO DAILY #30 tabs 02/24/22 lisinopril 40 mg tablet 40 mg PO DAILY #30 tabs 02/24/22 metoprolol tartrate 25 mg tablet 25 mg PO BID #60 tabs 02/24/22 Hospital Course Operations None Procedures 2-D Echocardiogram Summary of Care Provided Minutes Spent on Discharge: 45 Hospital Course: MILY CHILDRESS, is a 56 F with a PMH as outlined who was admitted via the ED with a complaint of blurred vision. She started having blurred vision today and started feeling very anxious. She felt she was going to have convulsions. Patient was quite confused when I saw her. She said she thought she had a back infection. She admitted to being confused. She denied any headache, chest pain, blurred vision, dizziness, nausea or vomiting. Review of systems is otherwise negative. On admission, BP was markedly elevated at 206/104, with temp of 98.4F and RR of 24 initially. She was saturating at 99% on room air.? CBC showed hemoglobin of 11.9 with WBC of 2.5 and platelets of 329.? Chemistry shows sodium of 131 with potassium of 3.3 and creatinine of 1.02.? EKG showed no acute ST changes.? Chest x-ray showed no acute cardiopulmonary process. BP came down to the 150s and 160s after she was given IV hydralazine.? CT of the brain showed hypoattenuation in the left more than the right upper and posterior cerebral hemisphere white matter representing posterior reversible encephalopathy syndrome with ischemic changes less likely.? She has been admitted to be managed for hypertensive emergency with PRES. blood pressure subsequently improved. Her blood pressure medications namely lisinopril and hydrochlorothiazide were resumed. Patient stated that her blood pressure has not been well controlled even on those medications. Metoprolol was added on. She had an MRI of the brain done which showed evidence of PRES in the posterior parietal lobe cortices and left central lobe cortex. 2D echo done showed EF of 65-70 with moderate concentric left ventricular hypertrophy and diastolic dysfunction. Her blood pressure control improved markedly. Neurology was consulted in light of hte MRi findings and reviewed patient. She was counseled to keep a BP log and monitor her BP, and be compliant with her meds. She is to follow up with her PCP within 1-2 weeks. Patient remained stable and was discharged home on 02/24/2022. She is to follow up with her PCP and was counseled to be compliant with her BP meds. Patient seen and examined prior to discharge. She felt much better and had no active complaints. REview of systems was otherwise negative. labs and vitals reviewed. Home meds reviewed and reconciled. Physical Exam Const alert, oriented x3 and no apparent distress Constitutional Narrative: lethargic General Appearance: cooperative, comfortable and well kempt Exam Limitations: no limitations HEENT normocephalic, head/scalp atraumatic and moist oral mucous membranes Eyes PERRL, EOMs intact bilaterally and conjunctivae normal Neck no lymphadenopathy, supple and no JVD Resp normal respiratory effort, no retractions, no use of accessory muscles and clear to auscultation bilaterally Cardio regular rate, regular rhythm, S1 normal heart sound, S2 normal heart sound and no murmurs GI normal to inspection, nondistended, normoactive bowel sounds, soft to palpation, non-tender and non-distended Extremity normal to inspection, full ROM and no clubbing, cyanosis or edema Skin no rashes or lesions noted Neuro oriented x3, CN's II-XII intact bilaterally, moves all extremities and no focal motor deficits Sensorium / Orientation: awake and alert Speech: speech normal Motor Exam: strength 5/5 throughout Psych Psych Narrative: lethargic Medical Records Data Medical Nutrition Assessment Dietitian: Malnutrition Criteria Met Start: 02/23/22 12:20 Freq: Status: Active Protocol: Document 02/23/22 12:20 RMA (Rec: 02/23/22 12:20 RMA [id number]) Nutrition Malnutrition Evidence of Malnutrition Exists Yes Malnutrition (moderate): Chronic Evidenced By Suboptimal Energy Intake ( Moderate),Weight Loss ( Moderate) Clinical Problem Chronic Disease or Condition Related Malnutrition Etiology Moderate protein-calorie malnutrition in the context of chronic disease related to inadequate oral intake Signs/Symptoms as evidenced by~6-7% wt loss x 2-3 months and Po meeting less than 75% estimated nutrition needs Status Active Problem Recommendation Dietitian Recommendations/Changes 2000 calorie/consistent carbohydrate; cardiac diet 120 ml glucerna shake TID w/ medpass as tolerated Weight / BMI Weight Weight: 144 lb 13.499 oz Body Mass Index (BMI) 27.3 ABG / Lab / Microbiology Data Result Diagrams: 02/24/22 06:04 02/24/22 06:04 Laboratory: Laboratory Results - last 24 hr 02/23/22 16:43: POC Glucose 251 H 02/23/22 23:08: POC Glucose 238 H 02/24/22 06:04: WBC 4.0 L, RBC 4.13 L, Hgb 11.1 L, Hct 35.9 L, MCV 86.9, MCH 26.9 L, MCHC 30.9 L, RDW Std Deviation 51.8 H, RDW Coeff of Yudelka 16.5 H, Plt Count 286, MPV 11.4, Immature Gran % (Auto) 0.500, Neut % (Auto) 21.1 L, Lymph % (Auto) 50.7 H, [place] % (Auto) 20.8 H, Eos % (Auto) 6.4 H, Baso % (Auto) 0.5, Absolute Neuts (auto) 0.9 L, Absolute Lymphs (auto) 2.05, Nucleated RBC % 0, Differential Comment SCANNED 02/24/22 06:04: Sodium 134 L, Potassium 3.7, Chloride 105, Carbon Dioxide 23.0, Anion Gap 6, BUN 31 H, Creatinine 1.10 H, Estim Creat Clear Calc 42.58, Est GFR (MDRD) Af Amer 66, Est GFR (MDRD) Non-Af 54 L, BUN/Creatinine Ratio 28.2 H, Glucose 118 H, Calcium 8.9 02/24/22 09:28: POC Glucose 164 H Microbiology: Microbiology 02/22/22 14:35 Nasal Secretion SARS-CoV-2 Antigen (Rapid) - Final Radiography Diagnostic Testing: Radiology Impression Brain MRI 02/23/22 07:30 IMPRESSION: undefined ADDENDUM: 02/23/22 1325 IMPRESSION: undefined Echocardiogram 02/23/22 09:29 Interpretation Summary Technically difficult study with overall preserved LV systolic function no obvious wall motion abnormality LVEF about 60 to 65% moderate concentric left ventricular hypertrophy and diastolic dysfunction Chamber dimensions are normal aortic valve leaflets are thickened without aortic stenosis or regurgitation, RV free wall has a shaggy echodense appearance, significance of which is unclear, if this patient has had prior pericardial effusion that would explain this appearance. Clinical correlation is advised There is a small anterior echo-free space which could represent epicardial fat pad. Compared to previous echo report from July 2021, there are no significant changes. Technically difficult study with overall preserved LV systolic function no obvious wall motion abnormality LVEF about 60 to 65% moderate concentric left ventricular hypertrophy and diastolic dysfunction Chamber dimensions are normal aortic valve leaflets are thickened without aortic stenosis or regurgitation, RV free wall has a shaggy echodense appearance, significance of which is unclear, if this patient has had prior pericardial effusion that would explain this appearance. Clinical correlation is advised There is a small anterior echo-free space which could represent epicardial fat pad. Compared to previous echo report from July 2021, there are no significant changes. Ordering Physician: Dory Cid Referring Physician: Gris Fofana NP Performed By: Asaf Brown RCS D/C Instructions Discharge Diet: Low fat / Low cholesterol Discharge Activity: Return to Normal Activity Weight Bearing Status: Weight bearing as tolerated Call your doctor if you observe: Fever of 101 or Higher and Swelling in the ankles Meaningful Use Info Meaningful Use Diagnoses (Choose all that apply): None applicable Discharge Plan Admission Admit Date/Time: 02/22/22 19:18 Primary Reason for Your Visit: hypertensive emergency, PRES Attending Provider: Dory Cid Primary Care Provider: Gris Fofana NP Instructions Patient Instructions: ED High Blood Pressure Hypertension Discharge Orders/Prescriptions Prescriptions: New lisinopril 40 mg tablet 40 mg PO DAILY Qty: 30 2RF hydrochlorothiazide 25 mg tablet 25 mg PO DAILY Qty: 30 1RF metoprolol tartrate 25 mg Tablet 25 mg PO BID Qty: 60 1RF Continued atorvastatin 80 mg tablet 80 mg PO QHS budesonide-formoterol [Symbicort] 160-4.5 mcg/actuation HFA aerosol inhaler 2 puff inhalation BID albuterol sulfate 90 mcg/actuation HFA aerosol inhaler 2 puff inhalation Q6H PRN (Reason: SOB) pantoprazole 40 mg tablet,delayed release (DR/EC) 40 mg PO DAILY tizanidine 4 mg capsule 4 mg PO BID PRN (Reason: Muscle Pain) insulin glargine 100 unit/mL (3 mL) insulin pen 46 unit SC QHS ipratropium-albuterol 0.5 mg-3 mg(2.5 mg base)/3 mL solution for nebulization 3 ml inhalation 4X/DAY PRN (Reason: sob) amitriptyline 100 mg tablet 100 mg PO QHS Label Comments: take 1 tablet by oral route at bedtime per day loratadine 10 mg tablet 10 mg PO DAILY sennosides-docusate sodium [Stool Softener-Stimulant Laxat] 8.6-50 mg Tablet 2 tab PO BID PRN PRN (Reason: Constipation) Qty: 0 0RF insulin lispro [Humalog KwikPen Insulin] 100 unit/mL insulin pen 8 unit subcut BID Protocol: 4. Sliding Scale Insulin High-Med Dosing Condition: 150-199 mg/dl = 2 units Condition: 200-259 mg/dl = 4 units Condition: 260-324 mg/dl = 6 units Condition: 325-374 mg/dl = 8 units Condition: 375-409 mg/dl = 10 units Condition: 410-449 mg/dl = 11 units Condition: Greater than 449 call physician Protocol Text: - Use for Total Daily Dose of Insulin 56-80 units - Patient who are insulin resistant or septic HIGH MEDIUM DOSING ALGORITHM Jardiance 10 mg tablet 10 mg PO DAILY Label Comments: TAKE 1 TABLET BY MOUTH EVERY MORNING fentanyl 50 mcg/hr patch 72 hour 50 mcg transdermal Q3D acetaminophen 500 mg tablet 1,000 mg PO Q8H PRN (Reason: Pain) citalopram 20 mg tablet 20 mg PO DAILY Discontinued lisinopril-hydrochlorothiazide 20-25 mg tablet 1 tab PO BID Referrals / Follow Up: Gris Fofana NP, [employer] [facility] [Primary Care Provider] - Within 2 Weeks Disposition Disposition (needs filled in before D/C Order can be placed): Home, Self Care Charges/Coding Visit Charges Inpatient E&M: 72536 Disch Hosp
[2022-02-24 13:11] LABS: Bedside Glucose 160 mg/dL (74-106)
[2022-02-24 17:20] LABS: Bedside Glucose 149 mg/dL (74-106)
[2022-02-24] MEDS: 0.9% Saline Lock 10 ML Syringe IV (18:11)
--- NOTE | 2022-02-24 18:43 | NURSING ---
[id number] discharge paperwork done. patient needs ride home. Cruz Temple RN
[2022-02-24 19:11] LABS: Bedside Glucose 48 mg/dL (74-106)
--- NOTE | 2022-02-24 19:16 | NURSING ---
Pt came out to nurses station and said My blood sugar is dropping this RN and second RN into room. BG obtained, found to be 48. Juice and snack given. Primary RN notified.
--- NOTE | 2022-02-24 19:25 | NURSING ---
1925 Dr Cid called in response to text about blood sugar 48. recheck done (after crackers and juice given) blood sugar 92-cookies and milk given, Dr aware of rechecked blood sugar.Will call contacts list to find ride for patient. Keep Dr Cid updated. Cruz Temple Rn
[2022-02-24 19:30] LABS: Bedside Glucose 92 mg/dL (74-106)
--- NOTE | 2022-02-24 19:35 | NURSING ---
Pt is discharge from this facility according to Dr Cid. Pt mother contacted, update provided. Mother states, she is available to take pt home, if cab service is unavailable. Pt is aware pt states using [employer] service in the past.
--- NOTE | 2022-02-24 20:06 | NURSING ---
1850 informed by patient cab is downstairs. tried to review written discharge instructions with patient. patient insisted cab would leave and did not want hear instructions. instructions handed to patient and taken out via wheelchair. Cruz Temple RN
== END 2022-02-24 20:00 | disposition home or self-care (01) | DRG 52 ==
LOC: ED 15:26 → PCU 16:14
PROVIDERS: Internal Medicine; Admitting Provider Student in an Organized Health Care Education/Training Program; Emergency Provider Emergency Medicine; PCP Nurse Practitioner Primary Care; Visit Provider Student in an Organized Health Care Education/Training Program
DX: I67.83 Posterior reversible encephalopathy syndrome (principal); E44.0 Moderate protein-calorie malnutrition; E11.9 Type 2 diabetes mellitus without complications; Z79.4 Long term (current) use of insulin; J44.9 Chronic obstructive pulmonary disease, unspecified; I16.1 Hypertensive emergency; E78.00 Pure hypercholesterolemia, unspecified; I10 Essential (primary) hypertension; E78.5 Hyperlipidemia, unspecified; K21.9 Gastro-esophageal reflux disease without esophagitis; I25.10 Atherosclerotic heart disease of native coronary artery without angina pectoris; Z79.1 Long term (current) use of non-steroidal anti-inflammatories (NSAID); Z79.51 Long term (current) use of inhaled steroids; Z66 Do not resuscitate; Z99.89 Dependence on other enabling machines and devices; Z68.28 Body mass index [BMI] 28.0-28.9, adult
CPT/HCPCS: 36415; 36592; 70450; 70551; 71045; 80048; 80053; 80076; 82962; 83735; 84100; 84484; 85025; 87811; 93005; 93306; 97802; 99285; 99406; J7040; Q9957; A4216; C8929

== ENCOUNTER 2022-03-13 11:35 | Emergency (ER) | payer MEDICAID, SELFPAY ==
[2022-03-13 11:36] VITALS: BP 180/106; PULSE 105; RESP 18; TEMP 36.2; O2SAT 98; BMI 28.3
[2022-03-13 11:38] VITALS: BP 180/106; PULSE 105; RESP 18; TEMP 36.2; O2SAT 98
--- NOTE | 2022-03-13 12:00 | ED.VIS.BACK ---
HPI History of Present Illness Chief Complaint: Back Narrative Narrative: Patient had back surgery about 6 months ago. She subsequently developed osteomyelitis, she is on vancomycin and cefepime through the right PICC line. She tells me her pain is somewhat worse today. She has no fevers or chills. No cough congestion. She is being scheduled to see a spine surgeon at [facility] for this osteomyelitis. She also tells me that she thinks her PICC line may be infected because she saw some discharge yesterday. She has no radicular pains, no chest pain or shortness of breath. She is denying abdominal pain. [facility] Medical History Anxiety Arthritis Asthma Back pain Back pain Cardiology follow-up encounter Chronic neck and back pain COPD (chronic obstructive pulmonary disease) Coronary artery calcification seen on CAT scan CPAP (continuous positive airway pressure) dependence Depression Diabetes Dietary restriction Difficulty balancing Essential hypertension Gastric reflux High cholesterol History of arthritis History of echocardiogram History of edema History of pain when walking History of renal disease History of stomach ulcers History of stress test Hyperlipidemia Hypertension Injury of head and neck Insulin dependent diabetes mellitus Knee pain Lumbar stenosis Migraine headache Obesity Shortness of breath on exertion Shoulder pain Sleep apnea Smoker Strain of muscle, fascia and tendon of pelvis, initial encounter Strain of right hip and thigh Strain of right inguinal region Strain of unspecified muscles, fascia and tendons at thigh level, right thigh, initial encounter Syncope Thyroid disease Type 2 diabetes mellitus Walker as ambulation aid Wears glasses Wears hearing aid Home Medications insulin glargine 100 unit/mL (3 mL) subcutaneous pen 46 unit subcut QHS DIABETES 11/03/20 [History Last Taken 12/25/21] albuterol sulfate 90 mcg/actuation aerosol inhaler 2 puff inhalation Q6H PRN SOB 06/14/21 [History Last Taken 12/25/21] atorvastatin 80 mg tablet 80 mg PO QHS CHOLESTEROL 06/14/21 [History Last Taken 02/21/22] budesonide-formoterol HFA 160 mcg-4.5 mcg/actuation aerosol inhaler (Symbicort) 2 puff inhalation BID ASTHMA 06/14/21 [History Last Taken 12/25/21] pantoprazole 40 mg tablet,delayed release 40 mg PO DAILY GERD 06/14/21 [History Last Taken 02/21/22] tizanidine 4 mg capsule 4 mg PO BID PRN Muscle Pain 06/14/21 [History Last Taken 12/18/21] amitriptyline 100 mg tablet 100 mg PO QHS sleep 11/27/21 [History Last Taken 12/25/21] ipratropium 0.5 mg-albuterol 3 mg (2.5 mg base)/3 mL nebulization soln 3 ml inhalation 4X/DAY PRN sob 11/27/21 [History Last Taken 11/25/21] loratadine 10 mg tablet 10 mg PO DAILY allergies 11/27/21 [History Last Taken 02/21/22] sennosides 8.6 mg-docusate sodium 50 mg tablet (Stool Softener-Stimulant Laxative) 2 tab PO BID PRN PRN Constipation #0 tabs 11/30/21 [Rx Last Taken Unknown] insulin lispro 100 unit/mL subcutaneous pen (Humalog KwikPen (U-100) Insulin) 8 unit subcut BID DM 12/26/21 [History Last Taken Unknown] acetaminophen 500 mg tablet 1,000 mg PO Q8H PRN Pain 02/22/22 [History Last Taken Unknown] citalopram 20 mg tablet 20 mg PO DAILY DEPRESSION 02/22/22 [History Last Taken Unknown] empagliflozin 10 mg tablet (Jardiance) 10 mg PO DAILY DM 02/22/22 [History Last Taken 02/21/22] fentanyl 50 mcg/hr transdermal patch 50 mcg transdermal Q3D PAIN 02/22/22 [History Last Taken Unknown] hydrochlorothiazide 25 mg tablet 25 mg PO DAILY #30 tabs 02/24/22 [Rx Last Taken Unknown] lisinopril 40 mg tablet 40 mg PO DAILY #30 tabs 02/24/22 [Rx Last Taken Unknown] metoprolol tartrate 25 mg tablet 25 mg PO BID #60 tabs 02/24/22 [Rx Last Taken Unknown] hydroxyzine pamoate 50 mg capsule (Vistaril) 50 mg PO TID #20 caps 03/13/22 [Rx Last Taken Unknown] Allergy/AdvReac Type Severity Reaction Status Date / Time duloxetine [From Cymbalta] Allergy Unknown Verified 03/13/22 11:38 pregabalin [From Lyrica] Allergy Unknown Verified 03/13/22 11:38 Penicillins AdvReac Mild leaves a Verified 03/13/22 11:38 bad taste in her mouth. NSAIDS (Non-Steroidal AdvReac Upset Verified 03/13/22 11:38 Anti-Inflamma Stomach Family History Father Cancer Unclear type. Mother Lung cancer Concurrent tobacco use history. Surgical History History of ankle surgery History of History of carpal tunnel release History of hysterectomy History of open reduction and internal fixation (ORIF) procedure History of partial thyroidectomy Social History household members: none Smoking Status: Current every day smoker tobacco type: cigarettes alcohol intake: never substance use type: does not use ROS ROS ED ROS Narrative Past medical history: Reviewed, it is extensive includes hypertension, back pain, history of osteomyelitis on current antibiotics, coronary artery disease, hyperlipidemia, diabetes, obesity, tobacco use and abuse Medications: Reviewed Social history: Noncontributory Review of systems: All systems negative except as indicated General: No fever Eyes: No visual changes ENT: No upper airway congestion, normal voice Neck: No neck pain Cardiovascular: No chest pain Respiratory: No shortness of breath or cough Gastrointestinal: No abdominal pain, nausea vomiting or diarrhea Genitourinary: No dysuria Musculoskeletal: Right-sided PICC line Back: Back pain as in HPI Skin: No rash Neurological: No memory loss, confusion or any focal weakness Psych: Admits to being quite anxious about her current situation Hematologic: No easy bleeding or easy bruising EXAM Physical Exam Narrative Exam Narrative: Vitals reviewed General: Patient appears in some discomfort HEENT: Moist mucous membranes Neck: Nontender Cardiovascular normal heart rate Respiratory: No respiratory difficulty speaking in full sentences Abdomen: Soft and nontender, there is no suprapubic mass or pain Back: There is some tenderness over the lumbar region, pain is spinal and paraspinal both. Externally the incision is clean dry and intact without any external signs of infection. Extremities: Moves all extremities without joint pain or signs of trauma. Right-sided PICC line is clean dry and intact, there is no erythema no calor I cannot appreciate any discharge I do not see any evidence of infection at this time. Neurological: There is normal plantar flexion and dorsiflexion of both feet and great toes. Patellar and Achilles reflexes are normal. Normal strength and sensation. Negative straight leg test. Skin: No rash Psychiatric: Slightly anxious. Const Vital Signs: 03/13/22 11:36 03/13/22 11:38 Temperature 97.1 F L 97.1 F L Temperature Source Temporal Temporal Pulse Rate 105 H 105 H Respiratory Rate 18 18 Blood Pressure 180/106 H 180/106 H Blood Pressure Mean 130 130 Pulse Ox 98 98 Oxygen Delivery Method Room Air MDM MDM MDM Narrative Medical decision making narrative: Patient's pain improved with analgesia. She appears well. Her CRP is now normal, her white count is normal she appears well, she has slightly elevated ESR but this is probably a chronic elevation. The reason to repeat and do a third MRI especially that she has no neurological symptoms and she is on 2 IV antibiotics via her PICC line. We will read clean and redress the PICC line but at this time I do not see any evidence of infection in the PICC line. I do not believe it needs to be changed. I will discharge in stable condition to follow-up if anything changes she is to return to the ED. Lab Data Labs: Laboratory Results - last 24 hr 03/13/22 03/13/22 03/13/22 12:20 12:20 12:25 WBC 5.3 RBC 4.35 Hgb 11.8 L Hct 36.9 L MCV 84.8 MCH 27.1 MCHC 32.0 RDW Std Deviation 49.9 H RDW Coeff of Yudelka 16.2 H Plt Count 276 MPV 10.9 Immature Gran % (Auto) 0.600 Neut % (Auto) 63.8 Lymph % (Auto) 22.3 [place] % (Auto) 11.0 H Eos % (Auto) 1.7 Baso % (Auto) 0.6 Absolute Neuts (auto) 3.4 Absolute Lymphs (auto) 1.17 Nucleated RBC % 0 ESR 68 H Sodium 134 L Potassium 4.8 Chloride 105 Carbon Dioxide 25.0 Anion Gap 4 L BUN 26 H Creatinine 1.00 Estim Creat Clear Calc 46.84 Est GFR (MDRD) Af Amer 74 Est GFR (MDRD) Non-Af 61 BUN/Creatinine Ratio 26.1 H Glucose 208 H Calcium 10.2 H Total Bilirubin 0.40 AST 16 ALT 21 Alkaline Phosphatase 135 H C-React Prot Ext Range < 2.90 Total Protein 7.4 Albumin 2.8 L Globulin 4.6 H Albumin/Globulin Ratio 0.6 L Urine Color Yellow Urine Clarity Clear Urine pH 6.0 Ur Specific Maury 1.010 Urine Protein 30 H Urine Glucose (UA) 250 H Urine Ketones Negative Urine Occult Blood 10 H Urine Nitrite Negative Urine Bilirubin Negative Urine Urobilinogen Normal Ur Leukocyte Esterase Negative Urine RBC 0 SEEN Urine WBC 0 SEEN Ur Squamous Epith Cells 0 SEEN Urine Bacteria 0 SEEN Urine Mucus 0 SEEN Discharge Plan Triage Chief Complaint: Back ED Provider: Delon Norton Dx/Rx/DC Orders Clinical Impression: Back pain, Osteomyelitis Instructions: Osteomyelitis Dc Prescriptions: New hydroxyzine pamoate [Vistaril] 50 mg capsule 50 mg PO TID Qty: 20 0RF No Action atorvastatin 80 mg tablet 80 mg PO QHS budesonide-formoterol [Symbicort] 160-4.5 mcg/actuation HFA aerosol inhaler 2 puff inhalation BID albuterol sulfate 90 mcg/actuation HFA aerosol inhaler 2 puff inhalation Q6H PRN (Reason: SOB) pantoprazole 40 mg tablet,delayed release (DR/EC) 40 mg PO DAILY tizanidine 4 mg capsule 4 mg PO BID PRN (Reason: Muscle Pain) insulin glargine 100 unit/mL (3 mL) insulin pen 46 unit SC QHS ipratropium-albuterol 0.5 mg-3 mg(2.5 mg base)/3 mL solution for nebulization 3 ml inhalation 4X/DAY PRN (Reason: sob) amitriptyline 100 mg tablet 100 mg PO QHS Label Comments: take 1 tablet by oral route at bedtime per day loratadine 10 mg tablet 10 mg PO DAILY sennosides-docusate sodium [Stool Softener-Stimulant Laxat] 8.6-50 mg Tablet 2 tab PO BID PRN PRN (Reason: Constipation) Qty: 0 0RF insulin lispro [Humalog KwikPen Insulin] 100 unit/mL insulin pen 8 unit subcut BID Protocol: 4. Sliding Scale Insulin High-Med Dosing Condition: 150-199 mg/dl = 2 units Condition: 200-259 mg/dl = 4 units Condition: 260-324 mg/dl = 6 units Condition: 325-374 mg/dl = 8 units Condition: 375-409 mg/dl = 10 units Condition: 410-449 mg/dl = 11 units Condition: Greater than 449 call physician Protocol Text: - Use for Total Daily Dose of Insulin 56-80 units - Patient who are insulin resistant or septic HIGH MEDIUM DOSING ALGORITHM Jardiance 10 mg tablet 10 mg PO DAILY Label Comments: TAKE 1 TABLET BY MOUTH EVERY MORNING fentanyl 50 mcg/hr patch 72 hour 50 mcg transdermal Q3D acetaminophen 500 mg tablet 1,000 mg PO Q8H PRN (Reason: Pain) citalopram 20 mg tablet 20 mg PO DAILY lisinopril 40 mg tablet 40 mg PO DAILY Qty: 30 2RF hydrochlorothiazide 25 mg tablet 25 mg PO DAILY Qty: 30 1RF metoprolol tartrate 25 mg Tablet 25 mg PO BID Qty: 60 1RF Primary Care Provider: Gris Fofana NP Referrals: Gris Fofana NP, SPARMAKER-C [Primary Care Provider] - 3-5 Days Disposition Disposition: Home, Self Care
[2022-03-13] MEDS: Ondansetron 4 MG/2 ML Vial IV (12:18)
[2022-03-13] MEDS: HYDROmorphone 1 MG/ML Syringe 0.5 MG IV (12:18)
[2022-03-13 12:28] LABS: Absolute Lymphocyte Count 1.17 X10^3/uL (0.83-4.51); Absolute Neutrophil Count 3.4 X10^3/uL (2.0-7.7); Basophil# 0.03 X10^3/uL; Basophil% 0.6 % (0-1); Eosinophil# 0.09 X10^3/uL; Eosinophils% 1.7 % (0-5); Hematocrit 36.9 % (37-47); Hemoglobin 11.8 g/dL (12.0-15.0); Lymphocyte # 1.17 X10^3/ul (0.83-4.51); Lymphocyte % 22.3 % (19-41); Mean Corpuscular Hgb 27.1 pg (27.0-32.0); Mean Corpuscular Volume 84.8 fL (81-99); Mean Platelet Vol. 10.9 fl (6.2-12.0); Monocyte# 0.58 X10^3/uL; NRBC Flagged by Analyzer 0 % (0-5); Neutrophil # 3.35 X10^3/uL (2.7-7.7); Neutrophil % 63.8 % (47-70); Platelet Count 276 K/mm3 (150-450); RBC Distribution Width CV 16.2 % (11.6-14.6); RBC Distribution Width SD 49.9 fl (35.1-43.9); Red Blood Count 4.35 M/mm3 (4.2-5.4); White Blood Count 5.3 K/mm3 (4.4-11.0)
[2022-03-13 12:29] LABS: Erythrocyte Sedimentation Rate 68 mm/hr (0-30)
[2022-03-13 12:37] LABS: Bacteria 0 SEEN /hpf (None Seen); Mucous, Urine 0 SEEN /hpf (<or=2+); Red Blood Cells-Urine 0 SEEN /hpf (0-5); Squamous Epithelial Cells - UA 0 SEEN /hpf (5-10); White Blood Cells 0 SEEN /hpf (0-5)
[2022-03-13 12:40] LABS: Color, Urine Yellow (Yellow); Glucose, Dipstick 250 mg/dl (Normal); Ketone-Dipstick Negative (Negative); Leukocyte Esterase-Dipstick Negative /ul (Negative); Nitrite-Dipstick Negative (Negative); Occult Blood-Urine 10 /ul (Negative); Protein-Dipstick 30 mg/dl (Negative); Urine Bilirubin Dipstick Negative (Negative); Urine Clarity Clear (Clear); Urine Urobilinogen Normal (Normal)
[2022-03-13 12:46] LABS: ALB/GLOB Ratio 0.6 RATIO (0.9-2.4); AST(SGOT) 16 U/L (15-37); Alanine Aminotransfer ALT/SGPT 21 U/L (13-56); Albumin, Serum 2.8 g/dL (3.2-5.0); Alkaline Phosphatase 135 U/L (45-117); Anion Gap 4 (5-15); BUN 26 mg/dL (7-18); BUN/Creat Ratio 26.1 RATIO (10-20); CRP < 2.90 mg/L (0.0-3.0); Calcium,Total 10.2 mg/dL (8.5-10.1); Chloride 105 mmol/L (98-107); EST Glomerular Filtration Rate 61 mL/min (>60); Est Glom Filt Rate - Afr Amer 74 mL/min (>60); Estimated Creatinine Clearance 46.84 ml/min; Globulin 4.6 g/dL (2.2-4.2); Glucose 208 mg/dL (74-106); Potassium 4.8 mmol/L (3.5-5.1); Protein, Total 7.4 g/dL (6.4-8.2); Sodium Level 134 mmol/L (136-145)
[2022-03-13 13:17] VITALS: BP 199/94; PULSE 101; RESP 20; TEMP 36.4; O2SAT 98
[2022-03-13] MEDS: HYDROmorphone 0.5 MG/0.5 ML SYRINGE IV (13:22)
[2022-03-13] MEDS: LORazepam 2 MG/ML Syringe 0.5 MG IV (13:34)
[2022-03-13 13:40] VITALS: PULSE 87; RESP 18; O2SAT 99
--- NOTE | 2022-03-13 13:40 | ED.RN ---
new CHG dressing applied to PICC site after cleansing with chloraprep. awaiting taxi
== END 2022-03-13 13:45 | disposition home or self-care (01) ==
PROVIDERS: Emergency Provider Emergency Medicine; PCP Nurse Practitioner Primary Care; Visit Provider Emergency Medicine
DX: M86.9 Osteomyelitis, unspecified (principal); J44.9 Chronic obstructive pulmonary disease, unspecified; Z79.4 Long term (current) use of insulin; E11.9 Type 2 diabetes mellitus without complications; M54.9 Dorsalgia, unspecified; I25.10 Atherosclerotic heart disease of native coronary artery without angina pectoris; E78.5 Hyperlipidemia, unspecified; E78.00 Pure hypercholesterolemia, unspecified; I10 Essential (primary) hypertension; G47.30 Sleep apnea, unspecified; J45.909 Unspecified asthma, uncomplicated; Z99.89 Dependence on other enabling machines and devices
CPT/HCPCS: 80053; 81001; 85025; 85652; 86140; 96361; 96374; 96375; 96376; 99282; J7030; A4216; J2405

== ENCOUNTER 2022-03-14 15:42 | Emergency (ER) | payer MEDICAID, SELFPAY ==
[2022-03-14 15:43] VITALS: BP 169/105; PULSE 77; RESP 15; TEMP 36.2; O2SAT 100; BMI 26.4
--- NOTE | 2022-03-14 16:25 | EDS_ITS ---
HPI <STEPHON Meredith - Last Filed: 03/14/22 16:58> History of Present Illness Chief Complaint: Back Narrative Narrative: 56-year-old female presents with back pain. She had lumbar surgery 6 months ago and then developed osteomyelitis. She has a right arm PICC line and receives vancomycin and cefepime at home. She sees pain management and is on fentanyl patches that she changes every 3 days. She states it does not work well and today the patch came off in the shower leading to increased pain. She was also seen here yesterday for back pain and states that pain is the same today. Nothing is changed, no falls or trauma. No fever or chills. No chest pain or shortness of breath. No abdominal or flank pain. She does have some tingling that is chronic since the surgery down both legs but denies new weakness or paresthesias. No radicular pain. She is able to ambulate. [facility] <STEPHON Meredith - Last Filed: 03/14/22 16:58> [facility] Medical History Anxiety Arthritis Asthma Back pain Back pain Cardiology follow-up encounter Chronic neck and back pain COPD (chronic obstructive pulmonary disease) Coronary artery calcification seen on CAT scan CPAP (continuous positive airway pressure) dependence Depression Diabetes Dietary restriction Difficulty balancing Essential hypertension Gastric reflux High cholesterol History of arthritis History of echocardiogram History of edema History of pain when walking History of renal disease History of stomach ulcers History of stress test Hyperlipidemia Hypertension Injury of head and neck Insulin dependent diabetes mellitus Knee pain Lumbar stenosis Migraine headache Obesity Shortness of breath on exertion Shoulder pain Sleep apnea Smoker Strain of muscle, fascia and tendon of pelvis, initial encounter Strain of right hip and thigh Strain of right inguinal region Strain of unspecified muscles, fascia and tendons at thigh level, right thigh, initial encounter Syncope Thyroid disease Type 2 diabetes mellitus Walker as ambulation aid Wears glasses Wears hearing aid Home Medications insulin glargine 100 unit/mL (3 mL) subcutaneous pen 42 unit subcut QHS DIABETES 11/03/20 [History Last Taken 12/25/21] albuterol sulfate 90 mcg/actuation aerosol inhaler 2 puff inhalation Q6H PRN SOB 06/14/21 [History Last Taken 12/25/21] atorvastatin 80 mg tablet 80 mg PO QHS CHOLESTEROL 06/14/21 [History Last Taken 02/21/22] budesonide-formoterol HFA 160 mcg-4.5 mcg/actuation aerosol inhaler (Symbicort) 2 puff inhalation BID ASTHMA 06/14/21 [History Last Taken 12/25/21] pantoprazole 40 mg tablet,delayed release 40 mg PO DAILY GERD 06/14/21 [History Last Taken 02/21/22] tizanidine 4 mg capsule 4 mg PO BID PRN Muscle Pain 06/14/21 [History Last Taken 12/18/21] amitriptyline 100 mg tablet 100 mg PO QHS sleep 11/27/21 [History Last Taken 12/25/21] ipratropium 0.5 mg-albuterol 3 mg (2.5 mg base)/3 mL nebulization soln 3 ml inhalation 4X/DAY PRN sob 11/27/21 [History Last Taken 11/25/21] loratadine 10 mg tablet 10 mg PO DAILY allergies 11/27/21 [History Last Taken 02/21/22] insulin lispro 100 unit/mL subcutaneous pen (Humalog KwikPen (U-100) Insulin) 8 unit subcut BID DM 12/26/21 [History Last Taken Unknown] acetaminophen 500 mg tablet 1,000 mg PO Q8H PRN Pain 02/22/22 [History Last Taken Unknown] citalopram 20 mg tablet 20 mg PO DAILY DEPRESSION 02/22/22 [History Last Taken Unknown] empagliflozin 10 mg tablet (Jardiance) 10 mg PO DAILY DM 02/22/22 [History Last Taken 02/21/22] fentanyl 50 mcg/hr transdermal patch 50 mcg transdermal Q3D PAIN 02/22/22 [History Last Taken Unknown] hydrochlorothiazide 25 mg tablet 25 mg PO DAILY #30 tabs 02/24/22 [Rx Last Taken Unknown] lisinopril 40 mg tablet 40 mg PO DAILY #30 tabs 02/24/22 [Rx Last Taken Unknown] metoprolol tartrate 25 mg tablet 25 mg PO BID #60 tabs 02/24/22 [Rx Last Taken Unknown] Allergy/AdvReac Type Severity Reaction Status Date / Time duloxetine [From Cymbalta] Allergy Unknown Verified 03/14/22 15:44 pregabalin [From Lyrica] Allergy Unknown Verified 03/14/22 15:44 Penicillins AdvReac Mild leaves a Verified 03/14/22 15:44 bad taste in her mouth. NSAIDS (Non-Steroidal AdvReac Upset Verified 03/14/22 15:44 Anti-Inflamma Stomach Family History Father Cancer Unclear type. Mother Lung cancer Concurrent tobacco use history. Surgical History History of ankle surgery History of History of carpal tunnel release History of hysterectomy History of open reduction and internal fixation (ORIF) procedure History of partial thyroidectomy Social History household members: none Smoking Status: Current every day smoker tobacco type: cigarettes alcohol intake: never substance use type: does not use ROS <STEPHON Meredith - Last Filed: 03/14/22 16:58> ROS ED ROS Narrative Constitutional: Negative for fever, chills, malaise. Eyes: Negative for visual change. ENT: Negative for sore throat, ear pain, rhinorrhea. CVS: Negative for palpitations, chest pain, syncope. Respiratory: Negative for shortness of breath, cough, orthopnea. GI: Negative for abdominal pain, nausea, vomiting, diarrhea, constipation, melena, hematochezia. : Negative for dysuria, hematuria or frequency. Neuro: Negative for headache, motor/sensory dysfunction. Skin: Negative for rash, abscess, or wound. Musc: Positive for back pain. Negative for joint pain, swelling, trauma. Heme: Negative for easy bruising, bleeding, lymphadenopathy. EXAM <STEPHON Meredith - Last Filed: 03/14/22 16:58> Physical Exam Narrative Exam Narrative: CONST: Patient crying but nontoxic appearing. EYES: Normal inspection. NECK: Normal inspection. RESP: No respiratory distress, CTAB. CVS: Regular rate and rhythm, no murmur, no gallop. ABD: Soft and nontender, no guarding or rebound, nondistended. Back: Normal inspection, no midline spinal tenderness, no step-offs or crepitus SKIN: Color normal, no rash, warm, dry, intact. EXTREMITIES: Normal appearance, no pedal edema. 5/5 strength in bilateral hip flexion, knee flexion/extension, and DF/PF. Normal sensation light touch, 2+ DP pulses. PICC line right upper extremity intact with no erythema or warmth, 2+ radial pulses. NEURO: Oriented x4. PSYCH: Normal affect. Const Vital Signs: 03/14/22 15:43 Temperature 97.2 F L Temperature Source Temporal Pulse Rate 77 Respiratory Rate 15 Blood Pressure 169/105 H Blood Pressure Mean 126 Pulse Ox 100 Oxygen Delivery Method Room Air <Dr. Zachary Ni MD - Last Filed: 03/14/22 17:04> Physical Exam Const Vital Signs: 03/14/22 15:43 Temperature 97.2 F L Temperature Source Temporal Pulse Rate 77 Respiratory Rate 15 Blood Pressure 169/105 H Blood Pressure Mean 126 Pulse Ox 100 Oxygen Delivery Method Room Air MDM <STEPHON Meredith - Last Filed: 03/14/22 16:58> [facility] MDM Narrative Medical decision making narrative: Patient has back pain from lumbar surgery 6 months ago and then developed osteomyelitis. She is on PICC line antibiotics and has been compliant. She was seen here yesterday for the same back pain and had a normal white count, normal CRP, ESR 68. She reports no fever, chills or constitutional symptoms of il lness. She had no new trauma or falls. Her fentanyl pain patch fell off today in the shower causing her increased pain. She appears uncomfortable but nontoxic. Afebrile and vital signs within normal limits. PICC line intact with no sign of infection. Back appears normal with no midline spinal tenderness or step-offs. Negative straight leg raise bilaterally, 5/5 strength and normal sensation and pulses in lower extremities. 2+ patellar and ankle reflexes. Patient states this is her chronic pain and only worse because she is missing a pain patch. I do not feel there is any indication for repeat blood work as I have no concern for worsening infection. She had an MRI of the lumbar spine on 02/09 and again on 02/14/2022 redemonstrating L3/L4/L5 osteomyelitis but no significant interval changes. She was given analgesia here with oxycodone, toradol, and replacement fentanyl patch. She has a follow-up with her pain management physician tomorrow at 10:30 AM and was discharged in stable co ndition. 1. Chronic back pain 2. History of lumbar osteomyelitis <Dr. Zachary Ni MD - Last Filed: 03/14/22 17:04> [facility] Narrative Medical decision making narrative: Patient has back pain from lumbar surgery 6 months ago and then developed osteomyelitis. She is on PICC line antibiotics and has been compliant. She was seen here yesterday for the same back pain and had a normal white count, normal CRP, ESR 68. She reports no fever, chills or constitutional symptoms of illness. She had no new trauma or falls. Her fentanyl pain patch fell off today in the shower causing her increased pain. She appears uncomfortable but nontoxic. Afebrile and vital signs within normal limits. PICC line intact with no sign of infection. Back appears normal with no midline spinal tenderness or step-offs. Negative straight leg raise bilaterally, 5/5 strength and normal sensation and pulses in lower extremities. 2+ patellar and ankle reflexes. Patient states this is her chronic pain and only worse because she is missing a pain patch. I do not feel there is any indication for repeat blood work as I have no concern for worsening infection. She had an MRI of the lumbar spine on 02/09 and again on 02/14/2022 redemonstrating L3/L4/L5 osteomyelitis but no significant interval changes. She was given analgesia here with oxycodone, toradol, and replacement fentanyl patch. She has a follow-up with her pain management physician tomorrow at 10:30 AM and was discharged in stable condition. 1. Chronic back pain 2. History of lumbar osteomyelitis I have personally performed a face to face assessment of the patient and have reviewed the MIGUE Note. I performed a substantive portion of the visit including all aspects of the following. My carrasco findings include: History is remarkable for osteomyelitis on IV antibiotics managed by ID. She sees Dr. Pantoja for pain management. She presents because her fentanyl patch fell off in the shower. She appears uncomfortable. She denies neurologic symptoms. She denies bowel bladder dysfunction. She denies saddle paresthesia or anesthesia. Exam is patient appears uncomfortable. She is slightly histrionic. There is a well-healed scar noted. There is no true point tenderness to percussion. There is no neurologic deficit lower extremity exam straight leg test is negative. Patella and ankle reflex are symmetric. EHLs intact. 5/5 strength plantar and dorsiflexion of the foot. Negative straight leg test. Abdomen soft nontender. No palp pulsatile mass or abdominal bruit. Medical Decision Making since there are no objective neurologic/objective findings will apply a fentanyl patch and give patient IV meds. Plan is to discharge to home Other additions or changes: None Discharge Plan Triage Chief Complaint: Back ED Midlevel Provider: Indy Funez ED Provider: Zachary Ni Dx/Rx/DC Orders Clinical Impression: Back pain Instructions: ED Back Pain (Acute or Chronic) Prescriptions: No Action atorvastatin 80 mg tablet 80 mg PO QHS budesonide-formoterol [Symbicort] 160-4.5 mcg/actuation HFA aerosol inhaler 2 puff inhalation BID albuterol sulfate 90 mcg/actuation HFA aerosol inhaler 2 puff inhalation Q6H PRN (Reason: SOB) pantoprazole 40 mg tablet,delayed release (DR/EC) 40 mg PO DAILY tizanidine 4 mg capsule 4 mg PO BID PRN (Reason: Muscle Pain) insulin glargine 100 unit/mL (3 mL) insulin pen 42 unit SC QHS ipratropium-albuterol 0.5 mg-3 mg(2.5 mg base)/3 mL solution for nebulization 3 ml inhalation 4X/DAY PRN (Reason: sob) amitriptyline 100 mg tablet 100 mg PO QHS Label Comments: take 1 tablet by oral route at bedtime per day loratadine 10 mg tablet 10 mg PO DAILY insulin lispro [Humalog KwikPen Insulin] 100 unit/mL insulin pen 8 unit subcut BID Protocol: 4. Sliding Scale Insulin High-Med Dosing Condition: 150-199 mg/dl = 2 units Condition: 200-259 mg/dl = 4 units Condition: 260-324 mg/dl = 6 units Condition: 325-374 mg/dl = 8 units Condition: 375-409 mg/dl = 10 units Condition: 410-449 mg/dl = 11 units Condition: Greater than 449 call physician Protocol Text: - Use for Total Daily Dose of Insulin 56-80 units - Patient who are insulin resistant or septic HIGH MEDIUM DOSING ALGORITHM Jardiance 10 mg tablet 10 mg PO DAILY Label Comments: TAKE 1 TABLET BY MOUTH EVERY MORNING fentanyl 50 mcg/hr patch 72 hour 50 mcg transdermal Q3D acetaminophen 500 mg tablet 1,000 mg PO Q8H PRN (Reason: Pain) citalopram 20 mg tablet 20 mg PO DAILY lisinopril 40 mg tablet 40 mg PO DAILY Qty: 30 2RF hydrochlorothiazide 25 mg tablet 25 mg PO DAILY Qty: 30 1RF metoprolol tartrate 25 mg Tablet 25 mg PO BID Qty: 60 1RF Primary Care Provider: Gris Fofana NP Referrals: Gris Fofana NP, OPERATOR RECEPTIONIST-C [Primary Care Provider] - Activity Restrictions/Additional Instructions: Follow-up with your pain management physician tomorrow. Disposition Disposition: Home, Self Care
[2022-03-14] MEDS: oxyCODONE 5 MG Tablet PO (17:08)
[2022-03-14] MEDS: Ketorolac 30 MG/ML Syringe IM (17:08)
== END 2022-03-14 17:33 | disposition home or self-care (01) ==
LOC: ED 17:00
PROVIDERS: Emergency Provider Emergency Medicine; PCP Nurse Practitioner Primary Care; Visit Provider Emergency Medicine
DX: M54.9 Dorsalgia, unspecified (principal); J44.9 Chronic obstructive pulmonary disease, unspecified; E11.9 Type 2 diabetes mellitus without complications; Z79.4 Long term (current) use of insulin; E78.00 Pure hypercholesterolemia, unspecified; I25.10 Atherosclerotic heart disease of native coronary artery without angina pectoris; I10 Essential (primary) hypertension; E78.5 Hyperlipidemia, unspecified; G89.29 Other chronic pain
CPT/HCPCS: 96372; 99284

== ENCOUNTER 2022-03-19 00:57 | Emergency (ER) | payer MEDICAID, SELFPAY ==
[2022-03-19 00:57] VITALS: BP 180/74; PULSE 74; RESP 17; TEMP 36.3; O2SAT 99; BMI 28.9
--- NOTE | 2022-03-19 01:49 | EDS_ITS ---
HPI History of Present Illness Chief Complaint: Back Narrative Narrative: Patient is a 56-year-old female with history of spinal stenosis and chronic back pain. She had surgery to her lumbar spine 7 months ago. She states since that time she developed osteomyelitis and has a PICC line in place and is receiving antibiotics. She reports she is also been on a fentanyl patch and Percocet. She states she has recently run out of her medication and since doing so is noticing increased pain in her low back. She denies any trauma loss of bowel or bladder control or IV drug use. She states that because the pain is not being controlled at home she presents for evaluation [facility] Medical History Anxiety Arthritis Asthma Back pain Back pain Cardiology follow-up encounter Chronic neck and back pain COPD (chronic obstructive pulmonary disease) Coronary artery calcification seen on CAT scan CPAP (continuous positive airway pressure) dependence Depression Diabetes Dietary restriction Difficulty balancing Essential hypertension Gastric reflux High cholesterol History of arthritis History of echocardiogram History of edema History of pain when walking History of renal disease History of stomach ulcers History of stress test Hyperlipidemia Hypertension Injury of head and neck Insulin dependent diabetes mellitus Knee pain Lumbar stenosis Migraine headache Obesity Shortness of breath on exertion Shoulder pain Sleep apnea Smoker Strain of muscle, fascia and tendon of pelvis, initial encounter Strain of right hip and thigh Strain of right inguinal region Strain of unspecified muscles, fascia and tendons at thigh level, right thigh, initial encounter Syncope Thyroid disease Type 2 diabetes mellitus Walker as ambulation aid Wears glasses Wears hearing aid Home Medications insulin glargine 100 unit/mL (3 mL) subcutaneous pen 42 unit subcut QHS DIABETES 11/03/20 [History Last Taken 12/25/21] albuterol sulfate 90 mcg/actuation aerosol inhaler 2 puff inhalation Q6H PRN SOB 06/14/21 [History Last Taken 12/25/21] atorvastatin 80 mg tablet 80 mg PO QHS CHOLESTEROL 06/14/21 [History Last Taken 02/21/22] budesonide-formoterol HFA 160 mcg-4.5 mcg/actuation aerosol inhaler (Symbicort) 2 puff inhalation BID ASTHMA 06/14/21 [History Last Taken 12/25/21] pantoprazole 40 mg tablet,delayed release 40 mg PO DAILY GERD 06/14/21 [History Last Taken 02/21/22] tizanidine 4 mg capsule 4 mg PO BID PRN Muscle Pain 06/14/21 [History Last Taken 12/18/21] amitriptyline 100 mg tablet 100 mg PO QHS sleep 11/27/21 [History Last Taken 12/25/21] ipratropium 0.5 mg-albuterol 3 mg (2.5 mg base)/3 mL nebulization soln 3 ml inhalation 4X/DAY PRN sob 11/27/21 [History Last Taken 11/25/21] loratadine 10 mg tablet 10 mg PO DAILY allergies 11/27/21 [History Last Taken 02/21/22] insulin lispro 100 unit/mL subcutaneous pen (Humalog KwikPen (U-100) Insulin) 8 unit subcut BID DM 12/26/21 [History Last Taken Unknown] acetaminophen 500 mg tablet 1,000 mg PO Q8H PRN Pain 02/22/22 [History Last Taken Unknown] citalopram 20 mg tablet 20 mg PO DAILY DEPRESSION 02/22/22 [History Last Taken Unknown] empagliflozin 10 mg tablet (Jardiance) 10 mg PO DAILY DM 02/22/22 [History Last Taken 02/21/22] fentanyl 50 mcg/hr transdermal patch 50 mcg transdermal Q3D PAIN 02/22/22 [History Last Taken Unknown] hydrochlorothiazide 25 mg tablet 25 mg PO DAILY #30 tabs 02/24/22 [Rx Last Taken Unknown] lisinopril 40 mg tablet 40 mg PO DAILY #30 tabs 02/24/22 [Rx Last Taken Unknown] metoprolol tartrate 25 mg tablet 25 mg PO BID #60 tabs 02/24/22 [Rx Last Taken Unknown] Allergy/AdvReac Type Severity Reaction Status Date / Time duloxetine [From Cymbalta] Allergy Unknown Verified 03/19/22 01:02 pregabalin [From Lyrica] Allergy Unknown Verified 03/19/22 01:02 Penicillins AdvReac Mild leaves a Verified 03/19/22 01:02 bad taste in her mouth. NSAIDS (Non-Steroidal AdvReac Upset Verified 03/19/22 01:02 Anti-Inflamma Stomach Family History Father Cancer Unclear type. Mother Lung cancer Concurrent tobacco use history. Surgical History History of ankle surgery History of History of carpal tunnel release History of hysterectomy History of open reduction and internal fixation (ORIF) procedure History of partial thyroidectomy Social History household members: none Smoking Status: Current every day smoker tobacco type: cigarettes alcohol intake: never substance use type: does not use ROS ROS ED Constitutional Constitutional ED: Denies chills or fever(s) ENT ENT ED: Denies sore throat Cardiovascular Cardiovascular: Denies chest pain Respiratory/Chest Respiratory/Chest: Denies cough or dyspnea Gastrointestinal Gastrointestinal: Denies abdominal pain, diarrhea, nausea or vomiting Genitourinary Genitourinary ED: Denies dysuria or hematuria Musculoskeletal Musculoskeletal: Reports back pain; Denies myalgias Integumentary Denies rash Neurologic Neurologic: Denies headache(s) or paresthesias Hematologic/Lymphatic Hematologic/Lymphatic: Denies easy bleeding or easy bruising EXAM Physical Exam Const Vital Signs: 03/19/22 00:57 Temperature 97.4 F L Temperature Source Temporal Pulse Rate 74 Respiratory Rate 17 Blood Pressure 180/74 H Blood Pressure Mean 109 Pulse Ox 99 Oxygen Delivery Method Room Air Positive well nourished and well developed General Appearance ED: well developed HEENT Reports moist mucous membranes Eyes PERRL and EOMs intact bilaterally Neck supple Resp normal respiratory effort and clear to auscultation bilaterally Cardio regular rate and regular rhythm Back/Spine Back/Spine Narrative: No bony deformity or step-off of the thoracic or lumbar spine there is diffuse pain with palpation of the low back. The surgical incision is clean dry and intact. No saddle anesthesia. Negative straight leg raise. No clonus or Babinski. Patellar reflexes are plus 1 out of 4 bilaterally Extremity normal to inspection Extremity Narrative: Patient has a PICC line in place in the right antecubital region without secondary changes to suggest infection or upper extremity DVT Neuro oriented x3 and CN's II-XII intact bilaterally Sensorium / Orientation: alert Psych mental status grossly normal Skin no rashes or lesions noted MDM MDM MDM Narrative Medical decision making narrative: Patient presented to the ER mildly hypertensive but otherwise with stable vitals. She reported history of chronic back issues and has also run out of her medication. There was no report or signs of trauma or infection and she had no physical exam findings concerning for cauda equina or epidural abscess. Therefore do not feel there is need for imaging or laboratory studies. Patient was given treatment in the ER but as she has a pain management doctor I will not provide home medication and she will follow-up with her orthopedic surgeon and/or pain management doctor for further care. Discharge Plan Triage Chief Complaint: Back ED Provider: Angelo Omalley Dx/Rx/DC Orders Clinical Impression: Acute exacerbation of chronic low back pain, Spinal stenosis Instructions: Leg Low Back Pain Poss Causes, ED Back Care Tips Prescriptions: No Action atorvastatin 80 mg tablet 80 mg PO QHS budesonide-formoterol [Symbicort] 160-4.5 mcg/actuation HFA aerosol inhaler 2 puff inhalation BID albuterol sulfate 90 mcg/actuation HFA aerosol inhaler 2 puff inhalation Q6H PRN (Reason: SOB) pantoprazole 40 mg tablet,delayed release (DR/EC) 40 mg PO DAILY tizanidine 4 mg capsule 4 mg PO BID PRN (Reason: Muscle Pain) insulin glargine 100 unit/mL (3 mL) insulin pen 42 unit SC QHS ipratropium-albuterol 0.5 mg-3 mg(2.5 mg base)/3 mL solution for nebulization 3 ml inhalation 4X/DAY PRN (Reason: sob) amitriptyline 100 mg tablet 100 mg PO QHS Label Comments: take 1 tablet by oral route at bedtime per day loratadine 10 mg tablet 10 mg PO DAILY insulin lispro [Humalog KwikPen Insulin] 100 unit/mL insulin pen 8 unit subcut BID Protocol: 4. Sliding Scale Insulin High-Med Dosing Condition: 150-199 mg/dl = 2 units Condition: 200-259 mg/dl = 4 units Condition: 260-324 mg/dl = 6 units Condition: 325-374 mg/dl = 8 units Condition: 375-409 mg/dl = 10 units Condition: 410-449 mg/dl = 11 units Condition: Greater than 449 call physician Protocol Text: - Use for Total Daily Dose of Insulin 56-80 units - Patient who are insulin resistant or septic HIGH MEDIUM DOSING ALGORITHM Jardiance 10 mg tablet 10 mg PO DAILY Label Comments: TAKE 1 TABLET BY MOUTH EVERY MORNING fentanyl 50 mcg/hr patch 72 hour 50 mcg transdermal Q3D acetaminophen 500 mg tablet 1,000 mg PO Q8H PRN (Reason: Pain) citalopram 20 mg tablet 20 mg PO DAILY lisinopril 40 mg tablet 40 mg PO DAILY Qty: 30 2RF hydrochlorothiazide 25 mg tablet 25 mg PO DAILY Qty: 30 1RF metoprolol tartrate 25 mg Tablet 25 mg PO BID Qty: 60 1RF Primary Care Provider: Gris Fofana NP Referrals: Gris Fofana NP, MARKETING ASSISTANT-C [Primary Care Provider] - Disposition Disposition: Home, Self Care Discharge Date/Time: 03/19/22 02:41
[2022-03-19] MEDS: Ondansetron ODT 4 MG Tablet PO (02:10)
[2022-03-19] MEDS: HYDROmorphone 1 MG/ML Syringe 2 MG IV (02:10)
[2022-03-19] MEDS: Orphenadrine 60 MG/2 ML Ampul IV (02:10)
== END 2022-03-19 02:41 | disposition home or self-care (01) ==
LOC: ED 02:02
PROVIDERS: Emergency Provider Emergency Medicine; PCP Nurse Practitioner Primary Care; Visit Provider Emergency Medicine
DX: M54.50 Low back pain, unspecified (principal); J44.9 Chronic obstructive pulmonary disease, unspecified; E11.9 Type 2 diabetes mellitus without complications; Z79.4 Long term (current) use of insulin; G89.29 Other chronic pain; E78.00 Pure hypercholesterolemia, unspecified; E78.5 Hyperlipidemia, unspecified; I10 Essential (primary) hypertension; M48.00 Spinal stenosis, site unspecified; I25.10 Atherosclerotic heart disease of native coronary artery without angina pectoris; G47.30 Sleep apnea, unspecified; Z99.89 Dependence on other enabling machines and devices
CPT/HCPCS: 99283; 99284; A4216

== ENCOUNTER 2022-03-19 13:53 | Emergency (ER) | payer MEDICAID, SELFPAY ==
[2022-03-19 13:54] VITALS: BP 119/85; PULSE 78; RESP 19; TEMP 36.6; O2SAT 100; BMI 26.4
--- NOTE | 2022-03-19 14:03 | ED.RN ---
pt asked about her home pain medications. she said that she was out of her meds. pt as stated that doctor won't prescribe me my meds without seeing me first. georges ly, rn [id number]
--- NOTE | 2022-03-19 14:42 | EDS_ITS ---
HPI History of Present Illness Chief Complaint: Back Informant: patient Onset/Context/Timing Onset: Month(s) Context: Gradual Onset Timing: Continuous Quality: Dull and Aching Location: Lumbar Current Severity: Moderate Maximum Severity: Moderate Worsened by: improves with Movement, Bending and Lifting Relieved by: Medications Associated Symptoms Associated Symptoms: Radiation to Right Leg; Negative for Numbness, Tingling, Fever, Abdominal Pain, Dysuria, Unable to Ambulate, Unable to Transfer, Urinary Retention, Urinary Incontinence, Constipation or Fecal Incontinence Narrative Narrative: 56-year-old female with chronic pain and chronic back pain. Had surgery earlier this year I think around September about the post op lumbar osteomyelitis she was on a course of IV antibiotics and is now currently on her second course. She is being referred to the [facility] for these issues in April. She denies any nausea vomiting or diarrhea. Currently is out of her pain medication sees Dr. Pantoja and a will refill her meds till the end of the week. She denies any bowel or bladder incontinence. Any leg weakness. Prior similar symptoms: Yes Recent Illness/Hospitalization: Yes PFSH [facility], [facility] Medical History Anxiety Arthritis Asthma Back pain Back pain Cardiology follow-up encounter Chronic neck and back pain COPD (chronic obstructive pulmonary disease) Coronary artery calcification seen on CAT scan CPAP (continuous positive airway pressure) dependence Depression Diabetes Dietary restriction Difficulty balancing Essential hypertension Gastric reflux High cholesterol History of arthritis History of echocardiogram History of edema History of pain when walking History of renal disease History of stomach ulcers History of stress test Hyperlipidemia Hypertension Injury of head and neck Insulin dependent diabetes mellitus Knee pain Lumbar stenosis Migraine headache Obesity Shortness of breath on exertion Shoulder pain Sleep apnea Smoker Strain of muscle, fascia and tendon of pelvis, initial encounter Strain of right hip and thigh Strain of right inguinal region Strain of unspecified muscles, fascia and tendons at thigh level, right thigh, initial encounter Syncope Thyroid disease Type 2 diabetes mellitus Walker as ambulation aid Wears glasses Wears hearing aid Home Medications insulin glargine 100 unit/mL (3 mL) subcutaneous pen 42 unit subcut QHS DIABETES 11/03/20 [History Last Taken 12/25/21] albuterol sulfate 90 mcg/actuation aerosol inhaler 2 puff inhalation Q6H PRN SOB 06/14/21 [History Last Taken 12/25/21] atorvastatin 80 mg tablet 80 mg PO QHS CHOLESTEROL 06/14/21 [History Last Taken 02/21/22] budesonide-formoterol HFA 160 mcg-4.5 mcg/actuation aerosol inhaler (Symbicort) 2 puff inhalation BID ASTHMA 06/14/21 [History Last Taken 12/25/21] pantoprazole 40 mg tablet,delayed release 40 mg PO DAILY GERD 06/14/21 [History Last Taken 02/21/22] tizanidine 4 mg capsule 4 mg PO BID PRN Muscle Pain 06/14/21 [History Last Taken 12/18/21] amitriptyline 100 mg tablet 100 mg PO QHS sleep 11/27/21 [History Last Taken 12/25/21] ipratropium 0.5 mg-albuterol 3 mg (2.5 mg base)/3 mL nebulization soln 3 ml inhalation 4X/DAY PRN sob 11/27/21 [History Last Taken 11/25/21] loratadine 10 mg tablet 10 mg PO DAILY allergies 11/27/21 [History Last Taken 02/21/22] insulin lispro 100 unit/mL subcutaneous pen (Humalog KwikPen (U-100) Insulin) 8 unit subcut BID DM 12/26/21 [History Last Taken Unknown] acetaminophen 500 mg tablet 1,000 mg PO Q8H PRN Pain 02/22/22 [History Last Taken Unknown] citalopram 20 mg tablet 20 mg PO DAILY DEPRESSION 02/22/22 [History Last Taken Unknown] empagliflozin 10 mg tablet (Jardiance) 10 mg PO DAILY DM 02/22/22 [History Last Taken 02/21/22] fentanyl 50 mcg/hr transdermal patch 50 mcg transdermal Q3D PAIN 02/22/22 [History Last Taken Unknown] hydrochlorothiazide 25 mg tablet 25 mg PO DAILY #30 tabs 02/24/22 [Rx Last Taken Unknown] lisinopril 40 mg tablet 40 mg PO DAILY #30 tabs 02/24/22 [Rx Last Taken Unknown] metoprolol tartrate 25 mg tablet 25 mg PO BID #60 tabs 02/24/22 [Rx Last Taken Unknown] Allergy/AdvReac Type Severity Reaction Status Date / Time duloxetine [From Cymbalta] Allergy Unknown Verified 03/19/22 01:02 pregabalin [From Lyrica] Allergy Unknown Verified 03/19/22 01:02 Penicillins AdvReac Mild leaves a Verified 03/19/22 01:02 bad taste in her mouth. NSAIDS (Non-Steroidal AdvReac Upset Verified 03/19/22 01:02 Anti-Inflamma Stomach Family History Father Cancer Unclear type. Mother Lung cancer Concurrent tobacco use history. Surgical History History of ankle surgery History of History of carpal tunnel release History of hysterectomy History of open reduction and internal fixation (ORIF) procedure History of partial thyroidectomy Social History household members: none Smoking Status: Current every day smoker tobacco type: cigarettes alcohol intake: never substance use type: does not use ROS ROS ED ROS Narrative Denies. Back pain. Review of Systems ROS Unobtainable: Denies due to encephalopathy Constitutional Constitutional ED: Denies chills Eyes Eyes: Denies blurry vision ENT ENT ED: Denies ear pain Cardiovascular Cardiovascular: Denies chest pain Respiratory/Chest Respiratory/Chest: Denies dyspnea Gastrointestinal Gastrointestinal: Denies abdominal pain, constipation or diarrhea Genitourinary Genitourinary ED: Denies dysuria Musculoskeletal Musculoskeletal: Reports back pain; Denies arthralgias Integumentary Denies abscess Neurologic Neurologic: Denies headache(s) Psychiatric Psychiatric: Reports anxiety Endocrine Endocrinology: Denies cold intolerance Hematologic/Lymphatic Hematologic/Lymphatic: Denies easy bleeding Allergic/Immunologic Allergic/Immunologic ED: Denies mouth swelling EXAM Physical Exam Narrative Exam Narrative: Middle-aged female no acute distress vital signs stable afebrile. Complained of back pain. HEENT exam unremarkable. Lungs are clear. Heart regular rhythm rate about 80 no murmur. Abdomen soft nontender. Normal bowel sounds no peritoneal signs. Moving all 4 extremities. 5-5 gunstock spray unit adjuster strength. Dorsi plantarflexion intact. No cauda equina or saddle anesthesia. Well-healed lumbar back incision. Currently dry clean. No cellulitis. No discharge. She does have a PICC line in her right upper extremity for IV antibiotics. Neurologically she is awake and alert with no focal motor deficits. Const Vital Signs: 03/19/22 13:54 Temperature 97.9 F Temperature Source Oral Pulse Rate 78 Respiratory Rate 19 H Blood Pressure 119/85 H Blood Pressure Mean 96 Pulse Ox 100 Oxygen Delivery Method Room Air Positive well nourished and well developed; Negative for obese, cachectic or contractures General Appearance ED: well developed; Negative for cachectic or contractures Nutritional Appearance: Negative for cachectic or obese HEENT Reports moist mucous membranes; Denies dry mucous membranes Negative for trauma Mouth ED: No dry mucous membranes Mouth: No dry mucous membranes Eyes PERRL and EOMs intact bilaterally General Eye ED: Negative for pale conjunctiva or scleral icterus Neck no lymphadenopathy, supple and no JVD General: Negative for tenderness Thyroid: Negative for other Resp normal respiratory effort and clear to auscultation bilaterally Effort and Inspection: Negative for pain with movement Auscultation: Negative for rales, rhonchi or wheezes Percussion: Negative for other Cardio regular rate, regular rhythm, S1 normal heart sound, S2 normal heart sound and no murmurs Palpation: Negative for palpable S3 Rate: Negative for bradycardia Rhythm: Negative for abnormal rhythm Bruits: Negative for other GI normal to inspection, nondistended, normoactive bowel sounds, soft to palpation, non-tender, non-distended and no masses Inspection: Negative for abdominal distention Auscultation: Negative for hyperactive bowel sounds Back/Spine normal to inspection and no thoracic nor lumbar tenderness Back/Spine Narrative: Well-healing lumbar incision. Cervical Spine: Negative for cervical spine tenderness Thoracic Spine / Upper Back: Negative for paraspinal muscle tenderness Extremity normal to inspection and no clubbing, cyanosis or edema Neuro oriented x3 and no sensory deficits noted Sensorium / Orientation: alert; Negative for confused, lethargic or stuporous Motor Exam: strength 5/5 throughout; Negative for strength abnormal Psych mental status grossly normal Appearance: Negative for other Attitude: No agitated Mood & Affect: Negative for depressed Skin no rashes or lesions noted and no wounds General Skin Exam: Negative for jaundice Lesions: No lesion noted Trauma: Negative for abrasion Wounds: Negative for wounds noted MDM MDM MDM Narrative Medical decision making narrative: 56-year-old female with acute on chronic pain. Chronic back pain. She is out of her current medications. Patient would not be given any prescriptions for home medication [facility] pain management. She will be given 1 IM injection of morphine and discharged to home. She has no signs of cauda equina and does not need any imaging. Discharge Plan Triage Chief Complaint: Back Other Complaint: Fall ED Provider: Reese Schulte Dx/Rx/DC Orders Clinical Impression: Acute exacerbation of chronic low back pain, Acute osteomyelitis of lumbar spine, History of diabetes mellitus Instructions: ED Back Pain (Acute or Chronic) Prescriptions: No Action atorvastatin 80 mg tablet 80 mg PO QHS budesonide-formoterol [Symbicort] 160-4.5 mcg/actuation HFA aerosol inhaler 2 puff inhalation BID albuterol sulfate 90 mcg/actuation HFA aerosol inhaler 2 puff inhalation Q6H PRN (Reason: SOB) pantoprazole 40 mg tablet,delayed release (DR/EC) 40 mg PO DAILY tizanidine 4 mg capsule 4 mg PO BID PRN (Reason: Muscle Pain) insulin glargine 100 unit/mL (3 mL) insulin pen 42 unit SC QHS ipratropium-albuterol 0.5 mg-3 mg(2.5 mg base)/3 mL solution for nebulization 3 ml inhalation 4X/DAY PRN (Reason: sob) amitriptyline 100 mg tablet 100 mg PO QHS Label Comments: take 1 tablet by oral route at bedtime per day loratadine 10 mg tablet 10 mg PO DAILY insulin lispro [Humalog KwikPen Insulin] 100 unit/mL insulin pen 8 unit subcut BID Protocol: 4. Sliding Scale Insulin High-Med Dosing Condition: 150-199 mg/dl = 2 units Condition: 200-259 mg/dl = 4 units Condition: 260-324 mg/dl = 6 units Condition: 325-374 mg/dl = 8 units Condition: 375-409 mg/dl = 10 units Condition: 410-449 mg/dl = 11 units Condition: Greater than 449 call physician Protocol Text: - Use for Total Daily Dose of Insulin 56-80 units - Patient who are insulin resistant or septic HIGH MEDIUM DOSING ALGORITHM Jardiance 10 mg tablet 10 mg PO DAILY Label Comments: TAKE 1 TABLET BY MOUTH EVERY MORNING fentanyl 50 mcg/hr patch 72 hour 50 mcg transdermal Q3D acetaminophen 500 mg tablet 1,000 mg PO Q8H PRN (Reason: Pain) citalopram 20 mg tablet 20 mg PO DAILY lisinopril 40 mg tablet 40 mg PO DAILY Qty: 30 2RF hydrochlorothiazide 25 mg tablet 25 mg PO DAILY Qty: 30 1RF metoprolol tartrate 25 mg Tablet 25 mg PO BID Qty: 60 1RF Primary Care Provider: Gris Fofana NP Referrals: Gris Fofana NP, CLINICAL PROGRAMMER-C [Primary Care Provider] - 3-5 Days if not improving Activity Restrictions/Additional Instructions: Call and follow-up with your pain management doctor soon as possible. The emergency department will not be able to prescribe you outpatient narcotic medications. Disposition Disposition: Home, Self Care
[2022-03-19] MEDS: morphine 10 MG/ML Syringe IM (14:59)
[2022-03-19 15:20] VITALS: BP 122/74; PULSE 82; RESP 15; O2SAT 98
== END 2022-03-19 15:21 | disposition home or self-care (01) ==
PROVIDERS: Emergency Provider Emergency Medicine; PCP Nurse Practitioner Primary Care; Visit Provider Emergency Medicine
DX: M54.50 Low back pain, unspecified (principal); M46.26 Osteomyelitis of vertebra, lumbar region; J44.9 Chronic obstructive pulmonary disease, unspecified; E11.9 Type 2 diabetes mellitus without complications; Z79.4 Long term (current) use of insulin; G89.29 Other chronic pain; E78.00 Pure hypercholesterolemia, unspecified; I25.10 Atherosclerotic heart disease of native coronary artery without angina pectoris; E78.5 Hyperlipidemia, unspecified; I10 Essential (primary) hypertension; Z99.89 Dependence on other enabling machines and devices

== ENCOUNTER 2022-03-20 14:12 | Emergency (ER) | payer MEDICAID, SELFPAY ==
[2022-03-20 14:13] VITALS: BP 179/116; PULSE 77; RESP 16; TEMP 36.6; O2SAT 99; BMI 27.3
--- NOTE | 2022-03-20 14:36 | ED.VIS.BACK ---
HPI History of Present Illness Chief Complaint: Back Informant: patient Onset/Context/Timing Onset: Month(s) Context: Gradual Onset Timing: Continuous Quality: Sharp and Burning Location: Lumbar, Buttock, Right Leg and Left Leg Worsened by: improves with Nothing Relieved by: Nothing Associated Symptoms Associated Symptoms: Numbness, Tingling, Radiation to Right Leg and Radiation to Left Leg; Negative for Fever, Abdominal Pain, Dysuria, Unable to Ambulate, Unable to Transfer, Urinary Retention, Urinary Incontinence, Constipation or Fecal Incontinence Narrative Narrative: Patient presents with back pain that became worse again today. Patient states she has had chronic back pain for the last several months. Patient states she had surgery back in September and developed osteomyelitis after that. Patient is currently on IV antibiotics through a PICC line. Patient states she has an appoint with her pain management physician tomorrow. Patient states she is out of her pain medication. Patient admits to some radiation of the pain down both legs. Patient denies any bowel or bladder changes. Patient denies any saddle anesthesia. [facility] Medical History Anxiety Arthritis Asthma Back pain Back pain Cardiology follow-up encounter Chronic neck and back pain COPD (chronic obstructive pulmonary disease) Coronary artery calcification seen on CAT scan CPAP (continuous positive airway pressure) dependence Depression Diabetes Dietary restriction Difficulty balancing Essential hypertension Gastric reflux High cholesterol History of arthritis History of echocardiogram History of edema History of pain when walking History of renal disease History of stomach ulcers History of stress test Hyperlipidemia Hypertension Injury of head and neck Insulin dependent diabetes mellitus Knee pain Lumbar stenosis Migraine headache Obesity Shortness of breath on exertion Shoulder pain Sleep apnea Smoker Strain of muscle, fascia and tendon of pelvis, initial encounter Strain of right hip and thigh Strain of right inguinal region Strain of unspecified muscles, fascia and tendons at thigh level, right thigh, initial encounter Syncope Thyroid disease Type 2 diabetes mellitus Walker as ambulation aid Wears glasses Wears hearing aid Home Medications insulin glargine 100 unit/mL (3 mL) subcutaneous pen 42 unit subcut QHS DIABETES 11/03/20 [History Last Taken 12/25/21] albuterol sulfate 90 mcg/actuation aerosol inhaler 2 puff inhalation Q6H PRN SOB 06/14/21 [History Last Taken 12/25/21] atorvastatin 80 mg tablet 80 mg PO QHS CHOLESTEROL 06/14/21 [History Last Taken 02/21/22] budesonide-formoterol HFA 160 mcg-4.5 mcg/actuation aerosol inhaler (Symbicort) 2 puff inhalation BID ASTHMA 06/14/21 [History Last Taken 12/25/21] pantoprazole 40 mg tablet,delayed release 40 mg PO DAILY GERD 06/14/21 [History Last Taken 02/21/22] tizanidine 4 mg capsule 4 mg PO BID PRN Muscle Pain 06/14/21 [History Last Taken 12/18/21] amitriptyline 100 mg tablet 100 mg PO QHS sleep 11/27/21 [History Last Taken 12/25/21] ipratropium 0.5 mg-albuterol 3 mg (2.5 mg base)/3 mL nebulization soln 3 ml inhalation 4X/DAY PRN sob 11/27/21 [History Last Taken 11/25/21] loratadine 10 mg tablet 10 mg PO DAILY allergies 11/27/21 [History Last Taken 02/21/22] insulin lispro 100 unit/mL subcutaneous pen (Humalog KwikPen (U-100) Insulin) 8 unit subcut BID DM 12/26/21 [History Last Taken Unknown] acetaminophen 500 mg tablet 1,000 mg PO Q8H PRN Pain 02/22/22 [History Last Taken Unknown] citalopram 20 mg tablet 20 mg PO DAILY DEPRESSION 02/22/22 [History Last Taken Unknown] empagliflozin 10 mg tablet (Jardiance) 10 mg PO DAILY DM 02/22/22 [History Last Taken 02/21/22] fentanyl 50 mcg/hr transdermal patch 50 mcg transdermal Q3D PAIN 02/22/22 [History Last Taken Unknown] hydrochlorothiazide 25 mg tablet 25 mg PO DAILY #30 tabs 02/24/22 [Rx Last Taken Unknown] lisinopril 40 mg tablet 40 mg PO DAILY #30 tabs 02/24/22 [Rx Last Taken Unknown] metoprolol tartrate 25 mg tablet 25 mg PO BID #60 tabs 02/24/22 [Rx Last Taken Unknown] Allergy/AdvReac Type Severity Reaction Status Date / Time duloxetine [From Cymbalta] Allergy Unknown Verified 03/20/22 14:15 pregabalin [From Lyrica] Allergy Unknown Verified 03/20/22 14:15 Penicillins AdvReac Mild leaves a Verified 03/20/22 14:15 bad taste in her mouth. NSAIDS (Non-Steroidal AdvReac Upset Verified 03/20/22 14:15 Anti-Inflamma Stomach Family History Father Cancer Unclear type. Mother Lung cancer Concurrent tobacco use history. Surgical History History of ankle surgery History of History of carpal tunnel release History of hysterectomy History of open reduction and internal fixation (ORIF) procedure History of partial thyroidectomy Social History household members: none Smoking Status: Current every day smoker tobacco type: cigarettes alcohol intake: never substance use type: does not use ROS ROS ED Constitutional Constitutional ED: Denies chills or fever(s) Eyes Eyes: Denies blurry vision or change in vision ENT ENT ED: Denies rhinorrhea or sore throat Cardiovascular Cardiovascular: Denies chest pain or palpitations Respiratory/Chest Respiratory/Chest: Denies cough or dyspnea Gastrointestinal Gastrointestinal: Denies nausea or vomiting Genitourinary Genitourinary ED: Denies dysuria or hematuria Musculoskeletal Musculoskeletal: Reports back pain; Denies neck pain Integumentary Denies abscess or rash Neurologic Neurologic: Reports paresthesias RLE and LLE; Denies headache(s) or weakness Allergic/Immunologic Allergic/Immunologic ED: Denies mouth swelling or urticaria EXAM Physical Exam Const Vital Signs: 03/20/22 14:13 Temperature 98 F Temperature Source Temporal Pulse Rate 77 Respiratory Rate 16 Blood Pressure 179/116 H Blood Pressure Mean 137 Pulse Ox 99 Oxygen Delivery Method Room Air Positive well nourished and well developed General Appearance ED: well developed and NAD HEENT Reports moist mucous membranes Neck supple Back/Spine Back/Spine Narrative: There is spine and paraspinal muscles. The incision is well-healed. There is no erythema or evidence of any infection. There is no bony crepitance or step-off. Range of motion was limited in all motions of the lumbar spine secondary to pain. Strength is 5/5 bilaterally in the lower extremities. There are no sensory deficits noted. Deep tendon reflexes are 2/4 bilaterally. Straight leg raises were negative. Lumbar Spine / Lower Back: ROM limited and straight leg raise negative bilaterally Extremity normal to inspection General Extremety ED: Negative for edema or tenderness General Extremity: Negative for edema Neuro oriented x3 and no sensory deficits noted Sensorium / Orientation: alert Motor Exam: strength 5/5 throughout Deep Tendon Reflexes: Rt Patellar (L4): 2+, Lt Patellar (L4): 2+, Rt Ankle (S1): 2+ and Lt Ankle (S1): 2+ Deep Tendon Reflexes Back: Rt Patellar (L4): 2+, Lt Patellar (L4): 2+, Rt Ankle (S1): 2+ and Lt Ankle (S1): 2+ Psych mental status grossly normal MDM MDM MDM Narrative Medical decision making narrative: Patient was given an injection of morphine here. Patient was instructed to follow-up with her pain management physician tomorrow as scheduled. Patient was instructed use ice to the area. Patient understood and was agreeable with the plan. All questions were answered. Discharge Plan Triage Chief Complaint: Back ED Provider: Oni Chavez Dx/Rx/DC Orders Clinical Impression: Acute exacerbation of chronic low back pain, Spinal stenosis Instructions: ED Back Pain (Acute or Chronic), ED Chronic Pain Prescriptions: No Action atorvastatin 80 mg tablet 80 mg PO QHS budesonide-formoterol [Symbicort] 160-4.5 mcg/actuation HFA aerosol inhaler 2 puff inhalation BID albuterol sulfate 90 mcg/actuation HFA aerosol inhaler 2 puff inhalation Q6H PRN (Reason: SOB) pantoprazole 40 mg tablet,delayed release (DR/EC) 40 mg PO DAILY tizanidine 4 mg capsule 4 mg PO BID PRN (Reason: Muscle Pain) insulin glargine 100 unit/mL (3 mL) insulin pen 42 unit SC QHS ipratropium-albuterol 0.5 mg-3 mg(2.5 mg base)/3 mL solution for nebulization 3 ml inhalation 4X/DAY PRN (Reason: sob) amitriptyline 100 mg tablet 100 mg PO QHS Label Comments: take 1 tablet by oral route at bedtime per day loratadine 10 mg tablet 10 mg PO DAILY insulin lispro [Humalog KwikPen Insulin] 100 unit/mL insulin pen 8 unit subcut BID Protocol: 4. Sliding Scale Insulin High-Med Dosing Condition: 150-199 mg/dl = 2 units Condition: 200-259 mg/dl = 4 units Condition: 260-324 mg/dl = 6 units Condition: 325-374 mg/dl = 8 units Condition: 375-409 mg/dl = 10 units Condition: 410-449 mg/dl = 11 units Condition: Greater than 449 call physician Protocol Text: - Use for Total Daily Dose of Insulin 56-80 units - Patient who are insulin resistant or septic HIGH MEDIUM DOSING ALGORITHM Jardiance 10 mg tablet 10 mg PO DAILY Label Comments: TAKE 1 TABLET BY MOUTH EVERY MORNING fentanyl 50 mcg/hr patch 72 hour 50 mcg transdermal Q3D acetaminophen 500 mg tablet 1,000 mg PO Q8H PRN (Reason: Pain) citalopram 20 mg tablet 20 mg PO DAILY lisinopril 40 mg tablet 40 mg PO DAILY Qty: 30 2RF hydrochlorothiazide 25 mg tablet 25 mg PO DAILY Qty: 30 1RF metoprolol tartrate 25 mg Tablet 25 mg PO BID Qty: 60 1RF Primary Care Provider: Gris Fofana NP Referrals: Gris Fofana NP, COMMUNICATIONS COORDINATOR-C [Primary Care Provider] - Keep Wilmer appointment Disposition Disposition: Home, Self Care
[2022-03-20] MEDS: Morphine 4 MG/ML Syringe IM (14:55)
[2022-03-20 15:16] VITALS: BP 187/120; PULSE 84; RESP 16; O2SAT 98
--- NOTE | 2022-03-20 15:17 | ED.RN ---
DR. ALVAREZ INFORMED OF BP 187/120. REPORTS PT IS READY DISCHARGE. PT ENCOURAGED TO TAKE HER MEDICATIONS PRESCRIBED.
== END 2022-03-20 15:19 | disposition home or self-care (01) ==
PROVIDERS: Emergency Provider Emergency Medicine; PCP Nurse Practitioner Primary Care; Visit Provider Emergency Medicine
DX: M54.50 Low back pain, unspecified (principal); J44.9 Chronic obstructive pulmonary disease, unspecified; E11.9 Type 2 diabetes mellitus without complications; Z79.4 Long term (current) use of insulin; I25.10 Atherosclerotic heart disease of native coronary artery without angina pectoris; M79.604 Pain in right leg; M48.00 Spinal stenosis, site unspecified; E78.00 Pure hypercholesterolemia, unspecified; M79.605 Pain in left leg; I10 Essential (primary) hypertension; E78.5 Hyperlipidemia, unspecified; G89.29 Other chronic pain; G47.30 Sleep apnea, unspecified; Z99.89 Dependence on other enabling machines and devices
CPT/HCPCS: 96372; 99282

== ENCOUNTER 2022-03-21 17:29 | Emergency (ER) | payer MEDICAID, SELFPAY ==
[2022-03-21 17:30] VITALS: BP 161/97; PULSE 110; RESP 16; TEMP 36.8; O2SAT 98; BMI 27.3
--- NOTE | 2022-03-21 17:43 | ED.RN ---
Pt was asked if she went to pain management today. She said yes. I asked her if she was given anything from pain management and she replied no. She said she was very upset and that she just cant take the pain anymore. She said Dr Medellin wants her to follow up at the [facility] [address] [place]. Pt is under treatment for osteomylitis and has a PICC line and gets antibiotics through it daily. Pt was tearful and said that she walked out on pain management because they wouldnt help her and give her something to help the pain. Yesterday pt had missed appt and was supposed to follow up today instead. Pt was offered social work services and she declined. Dr Schulte and Dr Roberts were advised of conversation and Dr Schulte advised Dr Roberts that he had taken care of her the other day. Pt has had 4 visits in 2 days for pain meds.
--- NOTE | 2022-03-21 18:14 | ED.RN ---
Pt walked out of department after seeing Dr Roberts without difficulty prior to discharge
--- NOTE | 2022-03-21 18:25 | ED.VIS.BACK ---
HPI History of Present Illness Chief Complaint: Back Informant: patient Narrative Narrative: Patient is a 56 year old female with history of osteomyelitis of the lumbar spine, currently on IV antibiotics, presenting with chronic back pain. She was actually in pain management earlier today however she apparently had alcohol in her urine drug and failed her drug test so she could not be prescribed any more fentanyl patches. Patient was first prescribed 2 weeks ago and has since run out. She denies any change in the characteristics of her symptoms. She states in her lower back. She denies any radiation down her legs. She denies any bowel or bladder incontinence. She denies any numbness or weakness of her legs. She denies any new trauma. She denies any fever or chills. She states she has been compliant with her IV antibiotics through her PICC line. Of note this is the patient's fourth ER visit within the past 2 days for her chronic back pain. Patient is requesting a dose of pain medication. She states she has an appointment to see a new spine/pain doctor in April through the [facility]. [facility] Medical History Anxiety Arthritis Asthma Back pain Back pain Cardiology follow-up encounter Chronic neck and back pain COPD (chronic obstructive pulmonary disease) Coronary artery calcification seen on CAT scan CPAP (continuous positive airway pressure) dependence Depression Diabetes Dietary restriction Difficulty balancing Essential hypertension Gastric reflux High cholesterol History of arthritis History of echocardiogram History of edema History of pain when walking History of renal disease History of stomach ulcers History of stress test Hyperlipidemia Hypertension Injury of head and neck Insulin dependent diabetes mellitus Knee pain Lumbar stenosis Migraine headache Obesity Shortness of breath on exertion Shoulder pain Sleep apnea Smoker Strain of muscle, fascia and tendon of pelvis, initial encounter Strain of right hip and thigh Strain of right inguinal region Strain of unspecified muscles, fascia and tendons at thigh level, right thigh, initial encounter Syncope Thyroid disease Type 2 diabetes mellitus Walker as ambulation aid Wears glasses Wears hearing aid Home Medications insulin glargine 100 unit/mL (3 mL) subcutaneous pen 42 unit subcut QHS DIABETES 11/03/20 [History Last Taken 12/25/21] albuterol sulfate 90 mcg/actuation aerosol inhaler 2 puff inhalation Q6H PRN SOB 06/14/21 [History Last Taken 12/25/21] atorvastatin 80 mg tablet 80 mg PO QHS CHOLESTEROL 06/14/21 [History Last Taken 02/21/22] budesonide-formoterol HFA 160 mcg-4.5 mcg/actuation aerosol inhaler (Symbicort) 2 puff inhalation BID ASTHMA 06/14/21 [History Last Taken 12/25/21] pantoprazole 40 mg tablet,delayed release 40 mg PO DAILY GERD 06/14/21 [History Last Taken 02/21/22] tizanidine 4 mg capsule 4 mg PO BID PRN Muscle Pain 06/14/21 [History Last Taken 12/18/21] amitriptyline 100 mg tablet 100 mg PO QHS sleep 11/27/21 [History Last Taken 12/25/21] ipratropium 0.5 mg-albuterol 3 mg (2.5 mg base)/3 mL nebulization soln 3 ml inhalation 4X/DAY PRN sob 11/27/21 [History Last Taken 11/25/21] loratadine 10 mg tablet 10 mg PO DAILY allergies 11/27/21 [History Last Taken 02/21/22] insulin lispro 100 unit/mL subcutaneous pen (Humalog KwikPen (U-100) Insulin) 8 unit subcut BID DM 12/26/21 [History Last Taken Unknown] acetaminophen 500 mg tablet 1,000 mg PO Q8H PRN Pain 02/22/22 [History Last Taken Unknown] citalopram 20 mg tablet 20 mg PO DAILY DEPRESSION 02/22/22 [History Last Taken Unknown] empagliflozin 10 mg tablet (Jardiance) 10 mg PO DAILY DM 02/22/22 [History Last Taken 02/21/22] fentanyl 50 mcg/hr transdermal patch 50 mcg transdermal Q3D PAIN 02/22/22 [History Last Taken Unknown] hydrochlorothiazide 25 mg tablet 25 mg PO DAILY #30 tabs 02/24/22 [Rx Last Taken Unknown] lisinopril 40 mg tablet 40 mg PO DAILY #30 tabs 02/24/22 [Rx Last Taken Unknown] metoprolol tartrate 25 mg tablet 25 mg PO BID #60 tabs 02/24/22 [Rx Last Taken Unknown] Allergy/AdvReac Type Severity Reaction Status Date / Time duloxetine [From Cymbalta] Allergy Unknown Verified 03/21/22 17:30 pregabalin [From Lyrica] Allergy Unknown Verified 03/21/22 17:30 Penicillins AdvReac Mild leaves a Verified 03/21/22 17:30 bad taste in her mouth. NSAIDS (Non-Steroidal AdvReac Upset Verified 03/21/22 17:30 Anti-Inflamma Stomach Family History Father Cancer Unclear type. Mother Lung cancer Concurrent tobacco use history. Surgical History History of ankle surgery History of History of carpal tunnel release History of hysterectomy History of open reduction and internal fixation (ORIF) procedure History of partial thyroidectomy Social History household members: none Smoking Status: Current every day smoker tobacco type: cigarettes alcohol intake: never substance use type: does not use ROS ROS ED Constitutional Constitutional ED: Denies chills or fever(s) ENT ENT ED: Denies sore throat Cardiovascular Cardiovascular: Denies chest pain Respiratory/Chest Respiratory/Chest: Denies dyspnea Gastrointestinal Gastrointestinal: Denies abdominal pain, constipation or diarrhea Genitourinary Genitourinary ED: Denies dysuria or hematuria Musculoskeletal Musculoskeletal: Reports back pain Integumentary Denies rash Neurologic Neurologic: Denies headache(s), paresthesias or weakness Psychiatric Psychiatric: Denies anxiety EXAM Physical Exam Const Vital Signs: 03/21/22 17:30 Temperature 98.2 F Temperature Source Temporal Pulse Rate 110 H Respiratory Rate 16 Blood Pressure 161/97 H Blood Pressure Mean 118 Pulse Ox 98 Oxygen Delivery Method Room Air Positive well nourished and well developed General Appearance ED: well developed and NAD HEENT Reports moist mucous membranes Eyes PERRL and EOMs intact bilaterally Neck supple Resp normal respiratory effort and clear to auscultation bilaterally Cardio regular rate and regular rhythm GI normal to inspection, nondistended, normoactive bowel sounds Back/Spine normal to inspection and no thoracic nor lumbar tenderness Back/Spine Narrative: No pinpoint bony tenderness. Extremity normal to inspection Neuro oriented x3 and no sensory deficits noted Neuro Narrative: Normal gait Motor Exam: strength 5/5 throughout Psych mental status grossly normal Skin no rashes or lesions noted MDM MDM MDM Narrative Medical decision making narrative: Patient is evaluated for back pain. It is her fourth ER visit in 2 days and she also saw pain management earlier today. They would not prescribe her any further fentanyl patches or other controlled medications because she failed her your urine drug test as it was positive for alcohol. Patient does not have any symptoms consistent with cauda equina syndrome. She is hemodynamically stable. She does not have any fever or concerns for recurrent infection. She does not have pinpoint bony tenderness. She is mildly tender diffusely in her lower back. I do not think she requires repeat emergent imaging. I did personal financial counselor the patient that it would not be appropriate for me to prescribe her pain medication especially since she just had a pain management physician feel that further opioid pain medication was inappropriate. In addition I think further doses of IV or IM pain medication would ultimately worsen the patient's pain she does not have comforts of pain plan for when she goes home. Case was discussed with pain management, Dr. Pantoja, who was concerned that patient wanted medication to abuse. While I was waiting on a call back, patient did elope from the emergency room. Discharge Plan Triage Chief Complaint: Back ED Provider: Dia Roberts Dx/Rx/DC Orders Clinical Impression: Acute exacerbation of chronic low back pain Prescriptions: No Action atorvastatin 80 mg tablet 80 mg PO QHS budesonide-formoterol [Symbicort] 160-4.5 mcg/actuation HFA aerosol inhaler 2 puff inhalation BID albuterol sulfate 90 mcg/actuation HFA aerosol inhaler 2 puff inhalation Q6H PRN (Reason: SOB) pantoprazole 40 mg tablet,delayed release (DR/EC) 40 mg PO DAILY tizanidine 4 mg capsule 4 mg PO BID PRN (Reason: Muscle Pain) insulin glargine 100 unit/mL (3 mL) insulin pen 42 unit SC QHS ipratropium-albuterol 0.5 mg-3 mg(2.5 mg base)/3 mL solution for nebulization 3 ml inhalation 4X/DAY PRN (Reason: sob) amitriptyline 100 mg tablet 100 mg PO QHS Label Comments: take 1 tablet by oral route at bedtime per day loratadine 10 mg tablet 10 mg PO DAILY insulin lispro [Humalog KwikPen Insulin] 100 unit/mL insulin pen 8 unit subcut BID Protocol: 4. Sliding Scale Insulin High-Med Dosing Condition: 150-199 mg/dl = 2 units Condition: 200-259 mg/dl = 4 units Condition: 260-324 mg/dl = 6 units Condition: 325-374 mg/dl = 8 units Condition: 375-409 mg/dl = 10 units Condition: 410-449 mg/dl = 11 units Condition: Greater than 449 call physician Protocol Text: - Use for Total Daily Dose of Insulin 56-80 units - Patient who are insulin resistant or septic HIGH MEDIUM DOSING ALGORITHM Jardiance 10 mg tablet 10 mg PO DAILY Label Comments: TAKE 1 TABLET BY MOUTH EVERY MORNING fentanyl 50 mcg/hr patch 72 hour 50 mcg transdermal Q3D acetaminophen 500 mg tablet 1,000 mg PO Q8H PRN (Reason: Pain) citalopram 20 mg tablet 20 mg PO DAILY lisinopril 40 mg tablet 40 mg PO DAILY Qty: 30 2RF hydrochlorothiazide 25 mg tablet 25 mg PO DAILY Qty: 30 1RF metoprolol tartrate 25 mg Tablet 25 mg PO BID Qty: 60 1RF Primary Care Provider: Gris Fofana NP Referrals: Gris Fofana NP, PHILANTHROPY OFFICER-C [Primary Care Provider] - Disposition Disposition: Elopement Discharge Date/Time: 03/21/22 18:10
== END 2022-03-21 18:10 | disposition left against medical advice (07) ==
LOC: ED 17:47
PROVIDERS: Emergency Provider Emergency Medicine; PCP Nurse Practitioner Primary Care; Visit Provider Emergency Medicine
DX: M54.50 Low back pain, unspecified (principal); J44.9 Chronic obstructive pulmonary disease, unspecified; Z79.4 Long term (current) use of insulin; E11.9 Type 2 diabetes mellitus without complications; E78.00 Pure hypercholesterolemia, unspecified; I10 Essential (primary) hypertension; E78.5 Hyperlipidemia, unspecified; G89.29 Other chronic pain; I25.10 Atherosclerotic heart disease of native coronary artery without angina pectoris
CPT/HCPCS: 99282

== ENCOUNTER 2022-03-22 12:59 | Emergency (ER) | payer MEDICAID, SELFPAY ==
[2022-03-22] VITALS (12 sets, daily range): BP systolic 58–152; BP diastolic 43–83; PULSE 51–68; RESP 14–20; TEMP 36.7–36.9; O2SAT 95–100; BMI 28.6
--- NOTE | 2022-03-22 13:20 | EKG12_ITS ---
Test Reason : Blood Pressure : / mmHG Vent. Rate : 052 BPM Atrial Rate : 052 BPM P-R Int : 188 ms QRS Dur : 078 ms QT Int : 568 ms P-R-T Axes : 047 027 -12 degrees QTc Int : 528 ms Sinus bradycardia Septal infarct , age undetermined Possible Inferior infarct , age undetermined Prolonged QT Abnormal ECG Confirmed by EZIO CRABTREE, AMY ([id number]), editor trade journal STEFFI JAVED ([id number]) on 03/25/2022 11:27:11 AM Referred By: Christopher/Marti Confirmed By:AMY HOLGUIN MD
--- NOTE | 2022-03-22 13:23 | EDS_ITS ---
HPI <STEPHON Meredith - Last Filed: 03/22/22 16:42> History of Present Illness Chief Complaint: Hypotension Narrative Narrative: 56-year-old female with PMH of HTN, DM2, chronic lumbar back pain from osteomyelitis presents with lightheadedness and syncope. She has been here multiple times recently for back pain secondary to chronic lumbar osteomyelitis. She has a right arm PICC line and is receiving vancomycin and cefepime. She recently quit pain management because she had a high alcohol level but she adamantly states she does not drink. She was previously on fentanyl patches but now isn't taking anything. She was in the ER last night but left after being told she would not receive pain medication. Since she left last night she felt lightheaded and around 1 am was walking to her bedroom when she fell onto the carpeted floor. She thinks she passed out for a minute. She was able to get up and walk to her recliner where she slept for most of the night. She felt lightheaded again today and fell. She then called EMS. She denies headache, visual changes, nausea or vomiting. No chest pain shortness of breath or cough. Her lumbar back pain is unchanged. She has no radicular pain weakness numbness or tingling or bladder or bowel incontinence. She states she takes lisinopril and HCTZ for her blood pressure with the last dose being this morning. PFSH <STEPHON Meredith - Last Filed: 03/22/22 16:42> [facility] Medical History Anxiety Arthritis Asthma Back pain Back pain Cardiology follow-up encounter Chronic neck and back pain COPD (chronic obstructive pulmonary disease) Coronary artery calcification seen on CAT scan CPAP (continuous positive airway pressure) dependence Depression Diabetes Dietary restriction Difficulty balancing Essential hypertension Gastric reflux High cholesterol History of arthritis History of echocardiogram History of edema History of pain when walking History of renal disease History of stomach ulcers History of stress test Hyperlipidemia Hypertension Injury of head and neck Insulin dependent diabetes mellitus Knee pain Lumbar stenosis Migraine headache Obesity Shortness of breath on exertion Shoulder pain Sleep apnea Smoker Strain of muscle, fascia and tendon of pelvis, initial encounter Strain of right hip and thigh Strain of right inguinal region Strain of unspecified muscles, fascia and tendons at thigh level, right thigh, initial encounter Syncope Thyroid disease Type 2 diabetes mellitus Walker as ambulation aid Wears glasses Wears hearing aid Home Medications insulin glargine 100 unit/mL (3 mL) subcutaneous pen 42 unit subcut QHS DIABETES 11/03/20 [History Last Taken 12/25/21] albuterol sulfate 90 mcg/actuation aerosol inhaler 2 puff inhalation Q6H PRN SOB 06/14/21 [History Last Taken 12/25/21] atorvastatin 80 mg tablet 80 mg PO QHS CHOLESTEROL 06/14/21 [History Last Taken 02/21/22] budesonide-formoterol HFA 160 mcg-4.5 mcg/actuation aerosol inhaler (Symbicort) 2 puff inhalation BID ASTHMA 06/14/21 [History Last Taken 12/25/21] pantoprazole 40 mg tablet,delayed release 40 mg PO DAILY GERD 06/14/21 [History Last Taken 02/21/22] tizanidine 4 mg capsule 4 mg PO BID PRN Muscle Pain 06/14/21 [History Last Taken 12/18/21] amitriptyline 100 mg tablet 100 mg PO QHS sleep 11/27/21 [History Last Taken 12/25/21] ipratropium 0.5 mg-albuterol 3 mg (2.5 mg base)/3 mL nebulization soln 3 ml inhalation 4X/DAY PRN sob 11/27/21 [History Last Taken 11/25/21] loratadine 10 mg tablet 10 mg PO DAILY allergies 11/27/21 [History Last Taken 02/21/22] insulin lispro 100 unit/mL subcutaneous pen (Humalog KwikPen (U-100) Insulin) 8 unit subcut BID DM 12/26/21 [History Last Taken Unknown] acetaminophen 500 mg tablet 1,000 mg PO Q8H PRN Pain 02/22/22 [History Last Taken Unknown] citalopram 20 mg tablet 20 mg PO DAILY DEPRESSION 02/22/22 [History Last Taken Unknown] empagliflozin 10 mg tablet (Jardiance) 10 mg PO DAILY DM 02/22/22 [History Last Taken 02/21/22] fentanyl 50 mcg/hr transdermal patch 50 mcg transdermal Q3D PAIN 02/22/22 [History Last Taken Unknown] hydrochlorothiazide 25 mg tablet 25 mg PO DAILY #30 tabs 02/24/22 [Rx Last Taken Unknown] lisinopril 40 mg tablet 40 mg PO DAILY #30 tabs 02/24/22 [Rx Last Taken Unknown] metoprolol tartrate 25 mg tablet 25 mg PO BID #60 tabs 02/24/22 [Rx Last Taken Unknown] Allergy/AdvReac Type Severity Reaction Status Date / Time duloxetine [From Cymbalta] Allergy Unknown Verified 03/22/22 12:59 pregabalin [From Lyrica] Allergy Unknown Verified 03/22/22 12:59 Penicillins AdvReac Mild leaves a Verified 03/22/22 12:59 bad taste in her mouth. NSAIDS (Non-Steroidal AdvReac Upset Verified 03/22/22 12:59 Anti-Inflamma Stomach Family History Father Cancer Unclear type. Mother Lung cancer Concurrent tobacco use history. Surgical History History of ankle surgery History of History of carpal tunnel release History of hysterectomy History of open reduction and internal fixation (ORIF) procedure History of partial thyroidectomy Social History household members: none Smoking Status: Current every day smoker tobacco type: cigarettes alcohol intake: never substance use type: does not use ROS <STEPHON Meredith - Last Filed: 03/22/22 16:42> ROS ED ROS Narrative Constitutional: Negative for fever, chills, malaise. Eyes: Negative for visual change. ENT: Negative for sore throat, ear pain, rhinorrhea. CVS: Positive for syncope. Negative for palpitations, chest pain. Respiratory: Negative for shortness of breath, cough, orthopnea. GI: Negative for abdominal pain, nausea, vomiting, diarrhea, constipation, melena, hematochezia. : Negative for dysuria, hematuria or frequency. Neuro: Negative for headache, motor/sensory dysfunction. Skin: Negative for rash, abscess, or wound. Musc: Negative for joint pain, swelling, trauma. Heme: Negative for easy bruising, bleeding, lymphadenopathy. EXAM <STEPHON Meredith - Last Filed: 03/22/22 16:42> Physical Exam Narrative Exam Narrative: CONST: Patient sitting in no acute distress. EYES: Normal inspection. PERRLA, EOMI. ENT: Red appearing tongue with normal oropharynx, slightly dry mucous membranes. NECK: Normal inspection. RESP: No respiratory distress, CTAB. CVS: Regular rate and rhythm, no murmur, no gallop. ABD: Soft and nontender, no guarding or rebound, nondistended. Back: Normal inspection, no midline spinal tenderness. SKIN: Color normal, no rash, warm, dry, intact. EXTREMITIES: Normal appearance, no pedal edema. 5/5 upper and lower extremity strength. NEURO: Oriented x4. PSYCH: Normal affect. Const Vital Signs: 03/22/22 12:59 03/22/22 13:04 03/22/22 13:12 Temperature 98.5 F 98.5 F Temperature Source Oral Oral Pulse Rate 55 L 53 L Respiratory Rate 16 14 Respiratory Pattern Normal Blood Pressure 66/49 L 64/44 L Blood Pressure Mean 54 50 Pulse Ox 100 96 Oxygen Delivery Method Room Air Room Air 03/22/22 13:24 03/22/22 13:29 03/22/22 13:44 Temperature 98.0 F Temperature Source Oral Pulse Rate 52 L Respiratory Rate 16 Respiratory Pattern Blood Pressure 58/43 L Blood Pressure Mean 48 Pulse Ox 99 98 Oxygen Delivery Method Room Air Room Air 03/22/22 13:46 03/22/22 14:02 03/22/22 14:39 Temperature Temperature Source Pulse Rate 55 L 51 L 52 L Respiratory Rate 18 18 18 Respiratory Pattern Blood Pressure 71/51 L 72/50 L 86/62 L Blood Pressure Mean 57 57 70 Pulse Ox 98 98 95 Oxygen Delivery Method Room Air Room Air Room Air 03/22/22 15:10 03/22/22 15:51 03/22/22 16:02 Temperature Temperature Source Pulse Rate 62 68 64 Respiratory Rate 20 H 16 18 Respiratory Pattern Blood Pressure 101/64 145/83 H 127/80 H Blood Pressure Mean 76 103 95 Pulse Ox 97 100 98 Oxygen Delivery Method Room Air Room Air Room Air 03/22/22 16:44 Temperature Temperature Source Pulse Rate 67 Respiratory Rate 18 Respiratory Pattern Blood Pressure 152/83 H Blood Pressure Mean Pulse Ox 98 Oxygen Delivery Method <Song Mercedes MD - Last Filed: 03/23/22 00:17> Physical Exam Const Vital Signs: 03/22/22 12:59 03/22/22 13:04 03/22/22 13:12 Temperature 98.5 F 98.5 F Temperature Source Oral Oral Pulse Rate 55 L 53 L Respiratory Rate 16 14 Respiratory Pattern Normal Blood Pressure 66/49 L 64/44 L Blood Pressure Mean 54 50 Pulse Ox 100 96 Oxygen Delivery Method Room Air Room Air 03/22/22 13:24 03/22/22 13:29 03/22/22 13:44 Temperature 98.0 F Temperature Source Oral Pulse Rate 52 L Respiratory Rate 16 Respiratory Pattern Blood Pressure 58/43 L Blood Pressure Mean 48 Pulse Ox 99 98 Oxygen Delivery Method Room Air Room Air 03/22/22 13:46 03/22/22 14:02 03/22/22 14:39 Temperature Temperature Source Pulse Rate 55 L 51 L 52 L Respiratory Rate 18 18 18 Respiratory Pattern Blood Pressure 71/51 L 72/50 L 86/62 L Blood Pressure Mean 57 57 70 Pulse Ox 98 98 95 Oxygen Delivery Method Room Air Room Air Room Air 03/22/22 15:10 03/22/22 15:51 03/22/22 16:02 Temperature Temperature Source Pulse Rate 62 68 64 Respiratory Rate 20 H 16 18 Respiratory Pattern Blood Pressure 101/64 145/83 H 127/80 H Blood Pressure Mean 76 103 95 Pulse Ox 97 100 98 Oxygen Delivery Method Room Air Room Air Room Air 03/22/22 16:44 Temperature Temperature Source Pulse Rate 67 Respiratory Rate 18 Respiratory Pattern Blood Pressure 152/83 H Blood Pressure Mean Pulse Ox 98 Oxygen Delivery Method [facility] <STEPHON Meredith - Last Filed: 03/22/22 16:42> [facility] Narrative Medical decision making narrative: Patient initially brought in for 2 syncopal episodes at home and was found to be hypotensive in 60s/40s, heart rate in the 50s, and otherwise normal vital signs. She is awake and alert and mentating normally. She does have very dry mucous membranes. Heart is regular with no murmur, lungs clear, abdomen soft and nontender. She has no midline spinal tenderness. PICC line is intact in her right arm where she is being treated for chronic osteomyelitis and there are no signs of infection. Lower extremity MSPs intact. IV fluids and sepsis work-up was initiated. Labs overall are unremarkable. Normal white count, chronic anemia at 11.4, normal electrolytes, BUN/creatinine 33/1.43 slightly up. Lactate is 1.8. CXR and UA are negative for infection. After 2 L IV fluids BP improved to 120s/80s. Patient was given Toradol for her back pain but this is chronic and unchanged. I have no concern for cauda equina. Patient states she wants to go home and will be discharged now that vital signs have improved. Diagnoses 1. Hypotension 2. Dehydration 3. Chronic back pain from osteomyelitis Lab Data Attestation: I reviewed the patient's lab results. Labs: Laboratory Results - last 24 hr 03/22/22 03/22/22 03/22/22 13:45 13:45 13:45 WBC 8.8 RBC 4.14 L Hgb 11.4 L Hct 36.6 L MCV 88.4 MCH 27.5 MCHC 31.1 L RDW Std Deviation 57.0 H RDW Coeff of Yudelka 17.6 H Plt Count 371 MPV 10.8 Immature Gran % (Auto) 2.200 H Neut % (Auto) 60.6 Lymph % (Auto) 27.7 [place] % (Auto) 7.7 Eos % (Auto) 1.5 Baso % (Auto) 0.3 Absolute Neuts (auto) 5.3 Absolute Lymphs (auto) 2.43 Nucleated RBC % 0 PT 14.8 INR 1.2 APTT 33.8 Sodium 138 Potassium 4.3 Chloride 112 H Carbon Dioxide 15.0 L Anion Gap 11 BUN 33 H Creatinine 1.43 H Estim Creat Clear Calc 32.75 Est GFR (MDRD) Af Amer 49 L Est GFR (MDRD) Non-Af 40 L BUN/Creatinine Ratio 23.1 H Glucose 87 Lactic Acid Calcium 8.7 Total Bilirubin 0.20 AST 14 L ALT 14 Alkaline Phosphatase 127 H Total Protein 5.8 L Albumin 2.3 L Globulin 3.5 Albumin/Globulin Ratio 0.7 L Urine Color Urine Clarity Urine pH Ur Specific [place] Urine Protein Urine Glucose (UA) Urine Ketones Urine Occult Blood Urine Nitrite Urine Bilirubin Urine Urobilinogen Ur Leukocyte Esterase Urine RBC Urine WBC Ur Squamous Epith Cells Urine Bacteria Fine Granular Casts Coarse Granular Casts Urine Mucus Urine Yeast Ethyl Alcohol 03/22/22 03/22/22 03/22/22 13:45 13:45 15:30 WBC RBC Hgb Hct MCV MCH MCHC RDW Std Deviation RDW Coeff of Yudelka Plt Count MPV Immature Gran % (Auto) Neut % (Auto) Lymph % (Auto) [place] % (Auto) Eos % (Auto) Baso % (Auto) Absolute Neuts (auto) Absolute Lymphs (auto) Nucleated RBC % PT INR APTT Sodium Potassium Chloride Carbon Dioxide Anion Gap BUN Creatinine Estim Creat Clear Calc Est GFR (MDRD) Af Amer Est GFR (MDRD) Non-Af BUN/Creatinine Ratio Glucose Lactic Acid 1.8 Calcium Total Bilirubin AST ALT Alkaline Phosphatase Total Protein Albumin Globulin Albumin/Globulin Ratio Urine Color Yellow Urine Clarity Sl. Cloudy Urine pH 6.0 Ur Specific [place] 1.010 Urine Protein 30 H Urine Glucose (UA) Normal Urine Ketones Negative Urine Occult Blood 10 H Urine Nitrite Negative Urine Bilirubin Negative Urine Urobilinogen Normal Ur Leukocyte Esterase 100 H Urine RBC 0-5 SEEN Urine WBC 5-10 SEEN Ur Squamous Epith Cells 10-25 SEEN Urine Bacteria RARE Fine Granular Casts 0-5 SEEN Coarse Granular Casts 0-5 SEEN Urine Mucus 0 SEEN Urine Yeast 3+ Ethyl Alcohol < 3.0 Radiography Diagnostic Testing: Clinical Impression(s) from Imaging Studies Chest X-Ray 03/22/22 13:54 IMPRESSION: Hyperinflation. The lungs are clear. Healed left rib fractures. Electronically Signed: Joaquin Rodney MD at 14:11 EDT , ED attending interpretation shows normal heart size, no acute infiltrate edema or effusion. EKG Initial EKG: Attestation: I personally reviewed and interpreted this EKG as follows: Interpretation: Sinus Rhythm Comments: Sinus bradycardia at 52 bpm, no acute ischemia, inverted T waves V1 V2 not significantly changed from prior Prior EKG tracings: available for review Prior: Unchanged <Song Mercedes MD - Last Filed: 03/23/22 00:17> [facility] MDM Narrative Medical decision making narrative: Patient initially brought in for 2 syncopal episodes at home and was found to be hypotensive in 60s/40s, heart rate in the 50s, and otherwise normal vital signs. She is awake and alert and mentating normally. She does have very dry mucous membranes. Heart is regular with no murmur, lungs clear, abdomen soft and nontender. She has no midline spinal tenderness. PICC line is intact in her right arm where she is being treated for chronic osteomyelitis and there are no signs of infection. Lower extremity MSPs intact. IV fluids and sepsis work-up was initiated. Labs overall are unremarkable. Normal white count, chronic anemia at 11.4, normal electrolytes, BUN/creatinine 33/1.43 slightly up. Lactate is 1.8. CXR and UA are negative for infection. After 2 L IV fluids BP improved to 120s/80s. Patient was given Toradol for her back pain but this is chronic and unchanged. I have no concern for cauda equina. Patient states she wants to go home and will be discharged now that vital signs have improved. Diagnoses 1. Hypotension 2. Dehydration 3. Chronic back pain from osteomyelitis I have personally performed a face to face assessment of the patient and have reviewed the MIGUE Note. I performed a substantive portion of the visit including all aspects of the following. My carrasco findings include: History is syncope, generalized weakness Exam is afebrile. Vital signs noted. Positive hypotension. Dry mucous membranes. Medical Decision Making check chest x-ray. Check labs. IV fluids. Chest x-ray interpreted by myself shows no acute process, no infiltrate. Negative lactate. Discharge after IV fluids. Patient states she would like to go home and is feeling improved. Disposition is discharged home in stable condition. Other additions or changes: [None] Lab Data Labs: Laboratory Results - last 24 hr 03/22/22 03/22/22 03/22/22 13:45 13:45 13:45 WBC 8.8 RBC 4.14 L Hgb 11.4 L Hct 36.6 L MCV 88.4 MCH 27.5 MCHC 31.1 L RDW Std Deviation 57.0 H RDW Coeff of Yudelka 17.6 H Plt Count 371 MPV 10.8 Immature Gran % (Auto) 2.200 H Neut % (Auto) 60.6 Lymph % (Auto) 27.7 [place] % (Auto) 7.7 Eos % (Auto) 1.5 Baso % (Auto) 0.3 Absolute Neuts (auto) 5.3 Absolute Lymphs (auto) 2.43 Nucleated RBC % 0 PT 14.8 INR 1.2 APTT 33.8 Sodium 138 Potassium 4.3 Chloride 112 H Carbon Dioxide 15.0 L Anion Gap 11 BUN 33 H Creatinine 1.43 H Estim Creat Clear Calc 32.75 Est GFR (MDRD) Af Amer 49 L Est GFR (MDRD) Non-Af 40 L BUN/Creatinine Ratio 23.1 H Glucose 87 Lactic Acid Calcium 8.7 Total Bilirubin 0.20 AST 14 L ALT 14 Alkaline Phosphatase 127 H Total Protein 5.8 L Albumin 2.3 L Globulin 3.5 Albumin/Globulin Ratio 0.7 L Urine Color Urine Clarity Urine pH Ur Specific [place] Urine Protein Urine Glucose (UA) Urine Ketones Urine Occult Blood Urine Nitrite Urine Bilirubin Urine Urobilinogen Ur Leukocyte Esterase Urine RBC Urine WBC Ur Squamous Epith Cells Urine Bacteria Fine Granular Casts Coarse Granular Casts Urine Mucus Urine Yeast Ethyl Alcohol 03/22/22 03/22/22 03/22/22 13:45 13:45 15:30 WBC RBC Hgb Hct MCV MCH MCHC RDW Std Deviation RDW Coeff of Yudelka Plt Count MPV Immature Gran % (Auto) Neut % (Auto) Lymph % (Auto) [place] % (Auto) Eos % (Auto) Baso % (Auto) Absolute Neuts (auto) Absolute Lymphs (auto) Nucleated RBC % PT INR APTT Sodium Potassium Chloride Carbon Dioxide Anion Gap BUN Creatinine Estim Creat Clear Calc Est GFR (MDRD) Af Amer Est GFR (MDRD) Non-Af BUN/Creatinine Ratio Glucose Lactic Acid 1.8 Calcium Total Bilirubin AST ALT Alkaline Phosphatase Total Protein Albumin Globulin Albumin/Globulin Ratio Urine Color Yellow Urine Clarity Sl. Cloudy Urine pH 6.0 Ur Specific [place] 1.010 Urine Protein 30 H Urine Glucose (UA) Normal Urine Ketones Negative Urine Occult Blood 10 H Urine Nitrite Negative Urine Bilirubin Negative Urine Urobilinogen Normal Ur Leukocyte Esterase 100 H Urine RBC 0-5 SEEN Urine WBC 5-10 SEEN Ur Squamous Epith Cells 10-25 SEEN Urine Bacteria RARE Fine Granular Casts 0-5 SEEN Coarse Granular Casts 0-5 SEEN Urine Mucus 0 SEEN Urine Yeast 3+ Ethyl Alcohol < 3.0 Radiography Diagnostic Testing: Clinical Impression(s) from Imaging Studies Chest X-Ray 03/22/22 13:54 IMPRESSION: Hyperinflation. The lungs are clear. Healed left rib fractures. Electronically Signed: Joaquin Rodney MD at 14:11 EDT , Discharge Plan Triage Chief Complaint: Hypotension Other Complaint: Fall ED Midlevel Provider: Indy Funez ED Provider: Song Mercedes Dx/Rx/DC Orders Clinical Impression: Acute dehydration, Acute hypotension Instructions: Dehydration, Hypotension Dc Prescriptions: No Action atorvastatin 80 mg tablet 80 mg PO QHS budesonide-formoterol [Symbicort] 160-4.5 mcg/actuation HFA aerosol inhaler 2 puff inhalation BID albuterol sulfate 90 mcg/actuation HFA aerosol inhaler 2 puff inhalation Q6H PRN (Reason: SOB) pantoprazole 40 mg tablet,delayed release (DR/EC) 40 mg PO DAILY tizanidine 4 mg capsule 4 mg PO BID PRN (Reason: Muscle Pain) insulin glargine 100 unit/mL (3 mL) insulin pen 42 unit SC QHS ipratropium-albuterol 0.5 mg-3 mg(2.5 mg base)/3 mL solution for nebulization 3 ml inhalation 4X/DAY PRN (Reason: sob) amitriptyline 100 mg tablet 100 mg PO QHS Label Comments: take 1 tablet by oral route at bedtime per day loratadine 10 mg tablet 10 mg PO DAILY insulin lispro [Humalog KwikPen Insulin] 100 unit/mL insulin pen 8 unit subcut BID Protocol: 4. Sliding Scale Insulin High-Med Dosing Condition: 150-199 mg/dl = 2 units Condition: 200-259 mg/dl = 4 units Condition: 260-324 mg/dl = 6 units Condition: 325-374 mg/dl = 8 units Condition: 375-409 mg/dl = 10 units Condition: 410-449 mg/dl = 11 units Condition: Greater than 449 call physician Protocol Text: - Use for Total Daily Dose of Insulin 56-80 units - Patient who are insulin resistant or septic HIGH MEDIUM DOSING ALGORITHM Jardiance 10 mg tablet 10 mg PO DAILY Label Comments: TAKE 1 TABLET BY MOUTH EVERY MORNING fentanyl 50 mcg/hr patch 72 hour 50 mcg transdermal Q3D acetaminophen 500 mg tablet 1,000 mg PO Q8H PRN (Reason: Pain) citalopram 20 mg tablet 20 mg PO DAILY lisinopril 40 mg tablet 40 mg PO DAILY Qty: 30 2RF hydrochlorothiazide 25 mg tablet 25 mg PO DAILY Qty: 30 1RF metoprolol tartrate 25 mg Tablet 25 mg PO BID Qty: 60 1RF Primary Care Provider: Grsi Fofana NP Referrals: Gris Fofana NP, [facility] [Primary Care Provider] - Activity Restrictions/Additional Instructions: Please eat and drink plenty of fluids. If symptoms worsen return to the ER. Disposition Disposition: Home, Self Care Discharge Date/Time: 03/22/22 16:59
[2022-03-22] MEDS: 0.9% Normal Saline 1,000 ML 999 ML IV ×2 (13:25→16:01)
--- NOTE | 2022-03-22 13:54 | RAD_ITS ---
STUDY: X-RAY CHEST REASON FOR EXAM: Female, 56 years old. Weakness. TECHNIQUE: Single AP portable view of the chest. COMPARISON: Comparison is made with prior study dated the 2021. FINDINGS: EKG electrodes are seen. Hyperinflation. There is no demonstrated pleural abnormality. Normal size heart. Normal mediastinum and judah. Normal visualized pulmonary arteries. Normal visualized aortic arch and descending thoracic aorta. There are degenerative changes of the visualized thoracic spine. Healed left rib fractures. There is no demonstrated abnormality of the visualized soft tissue structures of the upper abdomen. RAD/Chest 1 View (Portable) IMPRESSION: Hyperinflation. The lungs are clear. Healed left rib fractures. Electronically Signed: Joaquin Rodney MD at 14:11 EDT ,
[2022-03-22 14:07] LABS: Absolute Lymphocyte Count 2.43 X10^3/uL (0.83-4.51); Absolute Neutrophil Count 5.3 X10^3/uL (2.0-7.7); Basophil# 0.03 X10^3/uL; Basophil% 0.3 % (0-1); Eosinophil# 0.13 X10^3/uL; Eosinophils% 1.5 % (0-5); Hematocrit 36.6 % (37-47); Hemoglobin 11.4 g/dL (12.0-15.0); Lymphocyte # 2.43 X10^3/ul (0.83-4.51); Lymphocyte % 27.7 % (19-41); Mean Corp Hgb Conc 31.1 g/dL (32-36); Mean Corpuscular Hgb 27.5 pg (27.0-32.0); Mean Corpuscular Volume 88.4 fL (81-99); Mean Platelet Vol. 10.8 fl (6.2-12.0); Monocyte# 0.68 X10^3/uL; Monocyte% 7.7 % (0-10); NRBC Flagged by Analyzer 0 % (0-5); Neutrophil # 5.32 X10^3/uL (2.7-7.7); Neutrophil % 60.6 % (47-70); Platelet Count 371 K/mm3 (150-450); RBC Distribution Width CV 17.6 % (11.6-14.6); Red Blood Count 4.14 M/mm3 (4.2-5.4); White Blood Count 8.8 K/mm3 (4.4-11.0)
[2022-03-22 14:16] LABS: International Normalized Ratio 1.2; Prothrombin Time (Protime)PT. 14.8 SECONDS (11.7-14.9)
[2022-03-22 14:17] LABS: Partial Thromboplast Time 33.8 Seconds (24.1-36.2)
[2022-03-22 14:29] LABS: ALB/GLOB Ratio 0.7 RATIO (0.9-2.4); AST(SGOT) 14 U/L (15-37); Alanine Aminotransfer ALT/SGPT 14 U/L (13-56); Albumin, Serum 2.3 g/dL (3.2-5.0); Alkaline Phosphatase 127 U/L (45-117); Anion Gap 11 (5-15); BUN 33 mg/dL (7-18); BUN/Creat Ratio 23.1 RATIO (10-20); Calcium,Total 8.7 mg/dL (8.5-10.1); Chloride 112 mmol/L (98-107); Creatinine, Serum 1.43 mg/dL (0.55-1.02); EST Glomerular Filtration Rate 40 mL/min (>60); Est Glom Filt Rate - Afr Amer 49 mL/min (>60); Estimated Creatinine Clearance 32.75 ml/min; Globulin 3.5 g/dL (2.2-4.2); Glucose 87 mg/dL (74-106); Potassium 4.3 mmol/L (3.5-5.1); Protein, Total 5.8 g/dL (6.4-8.2); Sodium Level 138 mmol/L (136-145)
[2022-03-22 14:36] LABS: Alcohol, Blood (Medical)-Serum < 3.0 mg/dL
[2022-03-22 14:49] LABS: Lactic Acid 1.8 mmol/L (0.4-1.9)
[2022-03-22] MEDS: Ketorolac 30 MG/ML Syringe IV (15:59)
[2022-03-22 16:05] LABS: Mucous, Urine 0 SEEN /hpf (<or=2+)
[2022-03-22 16:15] LABS: Color, Urine Yellow (Yellow); Glucose, Dipstick Normal (Normal); Ketone-Dipstick Negative (Negative); Leukocyte Esterase-Dipstick 100 /ul (Negative); Nitrite-Dipstick Negative (Negative); Occult Blood-Urine 10 /ul (Negative); Protein-Dipstick 30 mg/dl (Negative); Urine Bilirubin Dipstick Negative (Negative); Urine Clarity Sl. Cloudy (Clear); Urine Urobilinogen Normal (Normal)
[2022-03-22 16:19] LABS: Bacteria RARE /hpf (None Seen); Red Blood Cells-Urine 0-5 SEEN /hpf (0-5); Squamous Epithelial Cells - UA 10-25 SEEN /hpf (5-10); White Blood Cells 5-10 SEEN /hpf (0-5); Yeast-Urine 3+ /hpf (None Seen)
[2022-03-22 16:21] LABS: Coarse Granular Cast 0-5 SEEN /lpf (0-5 /lpf); Fine Granular Cast- Urine 0-5 SEEN /lpf (0-5)
== END 2022-03-22 16:59 | disposition home or self-care (01) ==
PROVIDERS: Physician Assistant; Emergency Provider Emergency Medicine; PCP Nurse Practitioner Primary Care; Visit Provider Emergency Medicine
DX: E86.0 Dehydration (principal); M86.9 Osteomyelitis, unspecified; J44.9 Chronic obstructive pulmonary disease, unspecified; E11.9 Type 2 diabetes mellitus without complications; Z79.4 Long term (current) use of insulin; G89.29 Other chronic pain; I10 Essential (primary) hypertension; I95.9 Hypotension, unspecified; R55 Syncope and collapse; D64.9 Anemia, unspecified; M54.9 Dorsalgia, unspecified; I25.10 Atherosclerotic heart disease of native coronary artery without angina pectoris; E78.00 Pure hypercholesterolemia, unspecified; F41.9 Anxiety disorder, unspecified; F32.A Depression, unspecified; M19.90 Unspecified osteoarthritis, unspecified site; F17.210 Nicotine dependence, cigarettes, uncomplicated; Z79.899 Other long term (current) drug therapy
CPT/HCPCS: 71045; 80053; 81001; 82077; 83605; 85025; 85610; 85730; 87040; 87077; 87086; 87088; 87186; 93005; 96361; 96374; 99285; J7030; A4216

== ENCOUNTER 2022-03-23 13:54 | Emergency (ER) | payer MEDICAID, SELFPAY ==
[2022-03-23 13:55] VITALS: BP 172/111; PULSE 92; RESP 17; TEMP 36.3; O2SAT 98; BMI 26.4
--- NOTE | 2022-03-23 14:25 | RAD_ITS ---
INDICATION: Injury/Pain EXAMINATION/TECHNIQUE: X-RAY - XR Spine Lumbar 2 or 3 Views COMPARISON: 02/14/2022. FINDINGS: VERTEBRAE: No acute fracture. No spondylolisthesis. Preservation of the normal lumbar lordosis. Moderate multilevel facet arthropathy. Status post laminectomy and fusion at the L4-L5 level with prosthetic disc placement. Evidence of prior discitis osteomyelitis involving the L4-5 disc space. DISCS: Moderate multilevel degenerative disc disease and spondylosis. INCLUDED ABDOMEN: Included bowel gas pattern is non-obstructive. RAD/Lumbar Spine 2 or 3 Views IMPRESSION: No definite acute fracture. Status post laminectomy and fusion at the L4-L5 level with prosthetic disc placement. Moderate multilevel degenerative disc disease and spondylosis. Electronically Signed: Slick Robertson MD at 17:14 EDT ,
--- NOTE | 2022-03-23 14:29 | EDS_ITS ---
HPI <STEPHON Meredith - Last Filed: 03/23/22 17:43> HPI - Fall History of Present Illness Chief Complaint: Fall Narrative Narrative: 56-year-old female well-known to the ED presents after a fall today. She states she falls frequently. She stood up from a recliner and took 2 steps towards the bathroom and both legs felt weak and she fell onto her butt. No head injury or LOC. Yesterday she had been here feeling dizzy but today she denies any feeling of dizziness, room spinning, chest pain or shortness of breath etc. She was able to stand up after this fall and ambulate. Presents due to lumbar back pain and wants to make sure her hardware is in place. She had a lumbar surgery in October and has osteomyelitis and being treated with PICC line antibiotics. Of note she has been discharged from pain management and is requesting pain meds today. [facility] <STEPHON Meredith - Last Filed: 03/23/22 17:43> [facility] Medical History Anxiety Arthritis Asthma Back pain Back pain Cardiology follow-up encounter Chronic neck and back pain COPD (chronic obstructive pulmonary disease) Coronary artery calcification seen on CAT scan CPAP (continuous positive airway pressure) dependence Depression Diabetes Dietary restriction Difficulty balancing Essential hypertension Gastric reflux High cholesterol History of arthritis History of echocardiogram History of edema History of pain when walking History of renal disease History of stomach ulcers History of stress test Hyperlipidemia Hypertension Injury of head and neck Insulin dependent diabetes mellitus Knee pain Lumbar stenosis Migraine headache Obesity Shortness of breath on exertion Shoulder pain Sleep apnea Smoker Strain of muscle, fascia and tendon of pelvis, initial encounter Strain of right hip and thigh Strain of right inguinal region Strain of unspecified muscles, fascia and tendons at thigh level, right thigh, initial encounter Syncope Thyroid disease Type 2 diabetes mellitus Walker as ambulation aid Wears glasses Wears hearing aid Home Medications insulin glargine 100 unit/mL (3 mL) subcutaneous pen 42 unit subcut QHS DIABETES 11/03/20 [History Last Taken 12/25/21] albuterol sulfate 90 mcg/actuation aerosol inhaler 2 puff inhalation Q6H PRN SOB 06/14/21 [History Last Taken 12/25/21] atorvastatin 80 mg tablet 80 mg PO QHS CHOLESTEROL 06/14/21 [History Last Taken 02/21/22] budesonide-formoterol HFA 160 mcg-4.5 mcg/actuation aerosol inhaler (Symbicort) 2 puff inhalation BID ASTHMA 06/14/21 [History Last Taken 12/25/21] pantoprazole 40 mg tablet,delayed release 40 mg PO DAILY GERD 06/14/21 [History Last Taken 02/21/22] tizanidine 4 mg capsule 4 mg PO BID PRN Muscle Pain 06/14/21 [History Last Taken 12/18/21] amitriptyline 100 mg tablet 100 mg PO QHS sleep 11/27/21 [History Last Taken 12/25/21] ipratropium 0.5 mg-albuterol 3 mg (2.5 mg base)/3 mL nebulization soln 3 ml inhalation 4X/DAY PRN sob 11/27/21 [History Last Taken 11/25/21] loratadine 10 mg tablet 10 mg PO DAILY allergies 11/27/21 [History Last Taken 02/21/22] insulin lispro 100 unit/mL subcutaneous pen (Humalog KwikPen (U-100) Insulin) 8 unit subcut BID DM 12/26/21 [History Last Taken Unknown] acetaminophen 500 mg tablet 1,000 mg PO Q8H PRN Pain 02/22/22 [History Last Taken Unknown] citalopram 20 mg tablet 20 mg PO DAILY DEPRESSION 02/22/22 [History Last Taken Unknown] empagliflozin 10 mg tablet (Jardiance) 10 mg PO DAILY DM 02/22/22 [History Last Taken 02/21/22] fentanyl 50 mcg/hr transdermal patch 50 mcg transdermal Q3D PAIN 02/22/22 [History Last Taken Unknown] hydrochlorothiazide 25 mg tablet 25 mg PO DAILY #30 tabs 02/24/22 [Rx Last Taken Unknown] lisinopril 40 mg tablet 40 mg PO DAILY #30 tabs 02/24/22 [Rx Last Taken Unknown] metoprolol tartrate 25 mg tablet 25 mg PO BID #60 tabs 02/24/22 [Rx Last Taken Unknown] Allergy/AdvReac Type Severity Reaction Status Date / Time duloxetine [From Cymbalta] Allergy Unknown Verified 03/23/22 13:58 pregabalin [From Lyrica] Allergy Unknown Verified 03/23/22 13:58 Penicillins AdvReac Mild leaves a Verified 03/23/22 13:58 bad taste in her mouth. NSAIDS (Non-Steroidal AdvReac Upset Verified 03/23/22 13:58 Anti-Inflamma Stomach Family History Father Cancer Unclear type. Mother Lung cancer Concurrent tobacco use history. Surgical History History of ankle surgery History of History of carpal tunnel release History of hysterectomy History of open reduction and internal fixation (ORIF) procedure History of partial thyroidectomy Social History household members: none Smoking Status: Current every day smoker tobacco type: cigarettes alcohol intake: never substance use type: does not use ROS <STEPHON Meredith - Last Filed: 03/23/22 17:43> ROS ED ROS Narrative Constitutional: Negative for fever, chills, malaise. Eyes: Negative for visual change. ENT: Negative for sore throat, ear pain, rhinorrhea. CVS: Negative for palpitations, chest pain, syncope. Respiratory: Negative for shortness of breath, cough, orthopnea. GI: Negative for abdominal pain, nausea, vomiting, diarrhea, constipation, melena, hematochezia. : Negative for dysuria, hematuria or frequency. Neuro: Negative for headache, motor/sensory dysfunction. Skin: Negative for rash, abscess, or wound. Musc: Positive for back pain. Negative for joint pain, swelling, trauma. Heme: Negative for easy bruising, bleeding, lymphadenopathy. EXAM <STEPHON Meredith - Last Filed: 03/23/22 17:43> Physical Exam Narrative Exam Narrative: CONST: Patient sitting in no acute distress. EYES: Normal inspection. NECK: Normal inspection. RESP: No respiratory distress, CTAB. CVS: Regular rate and rhythm, no murmur, no gallop. Back: Normal inspection with healed midline lumbar surgical scar, no midline spinal tenderness or step-offs, right lumbar paraspinal tenderness. SKIN: Color normal, no rash, warm, dry, intact. EXTREMITIES: Normal appearance, no bony tenderness of the lower extremities, 2+ DP pulses. 5/5 strength in hip flexion, knee flexion/extension, DF/PF, normal sensation light touch. NEURO: Oriented x4. PSYCH: Normal affect. Const Vital Signs: 03/23/22 13:55 03/23/22 14:11 Temperature 97.4 F L Temperature Source Temporal Pulse Rate 92 Respiratory Rate 17 Respiratory Effort Normal Non-Labored Blood Pressure 172/111 H Blood Pressure Mean 131 Pulse Ox 98 Oxygen Delivery Method Room Air <Dr. Godfrey White MD - Last Filed: 03/23/22 21:03> Physical Exam Const Vital Signs: 03/23/22 13:55 03/23/22 14:11 Temperature 97.4 F L Temperature Source Temporal Pulse Rate 92 Respiratory Rate 17 Respiratory Effort Normal Non-Labored Blood Pressure 172/111 H Blood Pressure Mean 131 Pulse Ox 98 Oxygen Delivery Method Room Air MDM <STEPHON Meredith - Last Filed: 03/23/22 17:43> [facility] MDM Narrative Medical decision making narrative: Patient fell onto her butt today and presents with increased low back pain. She has chronic low back pain from prior fusion and is being treated for osteomyelitis. She appears well and nontoxic. She has no midline spinal tenderness but tenderness along the right side of the incision. Lower extremity MSPs and reflexes intact. No red flags concerning for cauda equina. Lumbar x- rays show no acute fracture and hardware intact L4-L5. When I told the patient I cannot give her narcotics in the ED she eloped prior to the attending evaluation. Diagnoses 1. Chronic low back pain 2. Fall Radiography Diagnostic Testing: Clinical Impression(s) from Imaging Studies Lumbar Spine X-Ray 03/23/22 14:25 IMPRESSION: No definite acute fracture. Status post laminectomy and fusion at the L4-L5 level with prosthetic disc placement. Moderate multilevel degenerative disc disease and spondylosis. Electronically Signed: Slick Robertson MD at 17:14 EDT , ED attending interpretation shows no acute fracture, lumbar fusion hardware intact. <Dr. Godfrey White MD - Last Filed: 03/23/22 21:03> [facility] Radiography Diagnostic Testing: Clinical Impression(s) from Imaging Studies Lumbar Spine X-Ray 03/23/22 14:25 IMPRESSION: No definite acute fracture. Status post laminectomy and fusion at the L4-L5 level with prosthetic disc placement. Moderate multilevel degenerative disc disease and spondylosis. Electronically Signed: Slick Robertson MD at 17:14 EDT , Treatment and Re-Evaluation Narrative: Attending note: I went to see the patient. But evidently she had left. I had already discussed the history. I reviewed her recent chart. But when I went to see the patient she had left. We could not find her in the building. Therefore I was not able to do a [id number] evaluation with an independent history and exam on this patient. Discharge Plan Triage Chief Complaint: Fall ED Midlevel Provider: Indy Funez ED Provider: Godfrey White Dx/Rx/DC Orders Prescriptions: No Action atorvastatin 80 mg tablet 80 mg PO QHS budesonide-formoterol [Symbicort] 160-4.5 mcg/actuation HFA aerosol inhaler 2 puff inhalation BID albuterol sulfate 90 mcg/actuation HFA aerosol inhaler 2 puff inhalation Q6H PRN (Reason: SOB) pantoprazole 40 mg tablet,delayed release (DR/EC) 40 mg PO DAILY tizanidine 4 mg capsule 4 mg PO BID PRN (Reason: Muscle Pain) insulin glargine 100 unit/mL (3 mL) insulin pen 42 unit SC QHS ipratropium-albuterol 0.5 mg-3 mg(2.5 mg base)/3 mL solution for nebulization 3 ml inhalation 4X/DAY PRN (Reason: sob) amitriptyline 100 mg tablet 100 mg PO QHS Label Comments: take 1 tablet by oral route at bedtime per day loratadine 10 mg tablet 10 mg PO DAILY insulin lispro [Humalog KwikPen Insulin] 100 unit/mL insulin pen 8 unit subcut BID Protocol: 4. Sliding Scale Insulin High-Med Dosing Condition: 150-199 mg/dl = 2 units Condition: 200-259 mg/dl = 4 units Condition: 260-324 mg/dl = 6 units Condition: 325-374 mg/dl = 8 units Condition: 375-409 mg/dl = 10 units Condition: 410-449 mg/dl = 11 units Condition: Greater than 449 call physician Protocol Text: - Use for Total Daily Dose of Insulin 56-80 units - Patient who are insulin resistant or septic HIGH MEDIUM DOSING ALGORITHM Jardiance 10 mg tablet 10 mg PO DAILY Label Comments: TAKE 1 TABLET BY MOUTH EVERY MORNING fentanyl 50 mcg/hr patch 72 hour 50 mcg transdermal Q3D acetaminophen 500 mg tablet 1,000 mg PO Q8H PRN (Reason: Pain) citalopram 20 mg tablet 20 mg PO DAILY lisinopril 40 mg tablet 40 mg PO DAILY Qty: 30 2RF hydrochlorothiazide 25 mg tablet 25 mg PO DAILY Qty: 30 1RF metoprolol tartrate 25 mg Tablet 25 mg PO BID Qty: 60 1RF Primary Care Provider: Gris Fofana NP Referrals: Gris Fofana NP, [employer] [Primary Care Provider] - Disposition Disposition: Home, Self Care Discharge Date/Time: 03/23/22 15:57
--- NOTE | 2022-03-23 15:55 | ED.RN ---
THIS RN WENT TO CHECK ON PT- PT NOT IN ROOM. HRO SAW PT GETTING INTO CAB. DR BLANK MADE AWARE. PT LEFT PRIOR TO BEING DISCHARGED
== END 2022-03-23 15:57 | disposition home or self-care (01) ==
LOC: ED 15:26
PROVIDERS: Emergency Provider Emergency Medicine; PCP Nurse Practitioner Primary Care; Visit Provider Emergency Medicine
DX: M54.50 Low back pain, unspecified (principal); J44.9 Chronic obstructive pulmonary disease, unspecified; E11.9 Type 2 diabetes mellitus without complications; Z79.4 Long term (current) use of insulin; I25.10 Atherosclerotic heart disease of native coronary artery without angina pectoris; I10 Essential (primary) hypertension; E78.5 Hyperlipidemia, unspecified; G89.29 Other chronic pain; E78.00 Pure hypercholesterolemia, unspecified; R29.6 Repeated falls; Z99.89 Dependence on other enabling machines and devices; G47.30 Sleep apnea, unspecified
CPT/HCPCS: 72100; 99282

== ENCOUNTER → 2022-03-25 | Outpatient (CLI) | payer MEDICAID, SELFPAY ==
[2022-03-25 11:00] LABS: Erythrocyte Sedimentation Rate 14 mm/hr (0-30)
[2022-03-25 11:02] LABS: Absolute Neutrophil Count 7.3 X10^3/uL (2.0-7.7); Basophil# 0.03 X10^3/uL; Basophil% 0.3 % (0-1); Eosinophil# 0.17 X10^3/uL; Eosinophils% 1.5 % (0-5); Hemoglobin 13.4 g/dL (12.0-15.0); Lymphocyte % 24.4 % (19-41); Mean Corp Hgb Conc 31.2 g/dL (32-36); Mean Corpuscular Hgb 27.1 pg (27.0-32.0); Mean Corpuscular Volume 86.9 fL (81-99); Mean Platelet Vol. 10.6 fl (6.2-12.0); Monocyte# 0.75 X10^3/uL; Monocyte% 6.8 % (0-10); NRBC Flagged by Analyzer 0 % (0-5); Neutrophil # 7.34 X10^3/uL (2.7-7.7); Neutrophil % 66.3 % (47-70); Platelet Count 399 K/mm3 (150-450); RBC Distribution Width CV 18.7 % (11.6-14.6); RBC Distribution Width SD 58.5 fl (35.1-43.9); Red Blood Count 4.95 M/mm3 (4.2-5.4); White Blood Count 11.1 K/mm3 (4.4-11.0)
[2022-03-25 11:06] LABS: Anion Gap 12 (5-15); BUN 25 mg/dL (7-18); BUN/Creat Ratio 21.7 RATIO (10-20); Calcium,Total 9.6 mg/dL (8.5-10.1); Chloride 107 mmol/L (98-107); Creatinine, Serum 1.15 mg/dL (0.55-1.02); EST Glomerular Filtration Rate 52 mL/min (>60); Est Glom Filt Rate - Afr Amer 63 mL/min (>60); Glucose 170 mg/dL (74-106); Potassium 4.5 mmol/L (3.5-5.1); Sodium Level 138 mmol/L (136-145)
[2022-03-25 11:16] LABS: Vancomycin, Trough Level 48.1 ug/mL (5.0-15.0)
== END | disposition home or self-care (01) ==
LOC: LAB 10:21
PROVIDERS: PCP Nurse Practitioner Primary Care; Referring Provider Internal Medicine Infectious Disease; Visit Provider Internal Medicine Infectious Disease
DX: M54.9 Dorsalgia, unspecified (principal)
CPT/HCPCS: 36415; 80048; 80202; 85025; 85652

== ENCOUNTER 2022-04-16 12:17 | Emergency (ER) | payer MEDICAID, SELFPAY ==
[2022-04-16 12:19] VITALS: BP 90/68; PULSE 75; RESP 18; TEMP 36.5; O2SAT 98; BMI 27.3
[2022-04-16 13:50] VITALS: BP 82/72; PULSE 95; RESP 16; O2SAT 97
--- NOTE | 2022-04-16 15:18 | EDS_ITS ---
HPI History of Present Illness Chief Complaint: Back Informant: patient Onset/Context/Timing Onset: Month(s) Context: Gradual Onset Timing: Continuous Quality: Dull and Aching Current Severity: Moderate Maximum Severity: Moderate Worsened by: improves with Movement, Ambulation, Bending and Lifting Relieved by: Nothing Associated Symptoms Associated Symptoms: Numbness and Tingling; Negative for Unable to Ambulate, Urinary Retention, Urinary Incontinence, Constipation or Fecal Incontinence Narrative Narrative: 56-year-old female past medical history of hypertension, chronic back pain with prior L4-5 back surgery, COPD, diabetes. Complaining of acute on chronic low back pain. She had surgery in September and said she is just had pain since that time. States that she is having decreased sensation in her legs. Decreasing strength. She was seen at the [facility] on Friday and they want to do additional testing on her. She denies any fever. She denies any bowel or bladder incontinence. She denies any nausea, vomiting or diarrhea. Her blood pressure is running low today I asked her she She thinks she accidentally took extra blood pressure medication today. Prior similar symptoms: Yes Recent Illness/Hospitalization: Yes PFSH PFS Medical History Anxiety Arthritis Asthma Back pain Back pain Cardiology follow-up encounter Chronic neck and back pain COPD (chronic obstructive pulmonary disease) Coronary artery calcification seen on CAT scan CPAP (continuous positive airway pressure) dependence Depression Diabetes Dietary restriction Difficulty balancing Essential hypertension Gastric reflux High cholesterol History of arthritis History of echocardiogram History of edema History of pain when walking History of renal disease History of stomach ulcers History of stress test Hyperlipidemia Hypertension Injury of head and neck Insulin dependent diabetes mellitus Knee pain Lumbar stenosis Migraine headache Obesity Osteomyelitis Shortness of breath on exertion Shoulder pain Sleep apnea Smoker Spinal fusion failure Strain of muscle, fascia and tendon of pelvis, initial encounter Strain of right hip and thigh Strain of right inguinal region Strain of unspecified muscles, fascia and tendons at thigh level, right thigh, initial encounter Syncope Thyroid disease Type 2 diabetes mellitus Walker as ambulation aid Wears glasses Wears hearing aid Home Medications insulin glargine 100 unit/mL (3 mL) subcutaneous pen 42 unit subcut QHS DIABETES 11/03/20 [History Last Taken 12/25/21] albuterol sulfate 90 mcg/actuation aerosol inhaler 2 puff inhalation Q6H PRN SOB 06/14/21 [History Last Taken 12/25/21] atorvastatin 80 mg tablet 80 mg PO QHS CHOLESTEROL 06/14/21 [History Last Taken 02/21/22] budesonide-formoterol HFA 160 mcg-4.5 mcg/actuation aerosol inhaler (Symbicort) 2 puff inhalation BID ASTHMA 06/14/21 [History Last Taken 12/25/21] pantoprazole 40 mg tablet,delayed release 40 mg PO DAILY GERD 06/14/21 [History Last Taken 02/21/22] tizanidine 4 mg capsule 4 mg PO BID PRN Muscle Pain 06/14/21 [History Last Taken 12/18/21] amitriptyline 100 mg tablet 100 mg PO QHS sleep 11/27/21 [History Last Taken 12/25/21] ipratropium 0.5 mg-albuterol 3 mg (2.5 mg base)/3 mL nebulization soln 3 ml inhalation 4X/DAY PRN sob 11/27/21 [History Last Taken 11/25/21] loratadine 10 mg tablet 10 mg PO DAILY allergies 11/27/21 [History Last Taken 02/21/22] insulin lispro 100 unit/mL subcutaneous pen (Humalog KwikPen (U-100) Insulin) 8 unit subcut BID DM 12/26/21 [History Last Taken Unknown] acetaminophen 500 mg tablet 1,000 mg PO Q8H PRN Pain 02/22/22 [History Last Taken Unknown] citalopram 20 mg tablet 20 mg PO DAILY DEPRESSION 02/22/22 [History Last Taken Unknown] empagliflozin 10 mg tablet (Jardiance) 10 mg PO DAILY DM 02/22/22 [History Last Taken 02/21/22] hydrochlorothiazide 25 mg tablet 25 mg PO DAILY #30 tabs 02/24/22 [Rx Last Taken Unknown] lisinopril 40 mg tablet 40 mg PO DAILY #30 tabs 02/24/22 [Rx Last Taken Unknown] metoprolol tartrate 25 mg tablet 25 mg PO BID #60 tabs 02/24/22 [Rx Last Taken Unknown] Allergy/AdvReac Type Severity Reaction Status Date / Time duloxetine [From Cymbalta] Allergy Unknown Verified 04/16/22 12:24 pregabalin [From Lyrica] Allergy Unknown Verified 04/16/22 12:24 Penicillins AdvReac Mild leaves a Verified 04/16/22 12:24 bad taste in her mouth. NSAIDS (Non-Steroidal AdvReac Upset Verified 04/16/22 12:24 Anti-Inflamma Stomach Family History Father Cancer Unclear type. Mother Lung cancer Concurrent tobacco use history. Surgical History History of ankle surgery History of History of carpal tunnel release History of hysterectomy History of open reduction and internal fixation (ORIF) procedure History of partial thyroidectomy Social History household members: none Smoking Status: Current every day smoker tobacco type: cigarettes alcohol intake: never substance use type: does not use ROS ROS ED ROS Narrative Denies recent illness. Review of Systems ROS Unobtainable: Denies due to encephalopathy Constitutional Constitutional ED: Denies chills or fever(s) Eyes Eyes: Denies blurry vision ENT ENT ED: Denies ear pain Cardiovascular Cardiovascular: Denies chest pain Respiratory/Chest Respiratory/Chest: Denies dyspnea Gastrointestinal Gastrointestinal: Denies abdominal pain, constipation, diarrhea, melena, nausea or vomiting Genitourinary Genitourinary ED: Denies dysuria or hematuria Musculoskeletal Musculoskeletal: Reports back pain; Denies arthralgias Integumentary Denies abscess Neurologic Neurologic: Denies headache(s) Psychiatric Psychiatric: Denies anxiety Endocrine Endocrinology: Denies cold intolerance Hematologic/Lymphatic Hematologic/Lymphatic: Denies easy bleeding Allergic/Immunologic Allergic/Immunologic ED: Denies mouth swelling EXAM Physical Exam Narrative Exam Narrative: 56-year-old female complaint of back pain. Vital signs are stable except her blood pressure is 90/68. She is tolerating it well. She sitting upright in bed. H EENT exam unremarkable. Neck nontender. Lungs clear to auscultation bilaterally. Heart regular rhythm rate about 75 no murmur. Abdomen soft nontender normal bowel sounds no peritoneal signs. Moving all 4 extremities. 5 out of 5 wire frame dipper strength. Dorsi plantarflexion intact. Normal medial thigh sensation. Dorsi plantarflexion intact. Back well-healed prior lumbar spine surgical scar. No redness or warmth. Neurologically she is awake and alert. She has weakness in her lower extremities but she is able to lift them off the bed. She has dorsi and plantar flexion. She said it is her baseline. Its not specifically worse today. Const Vital Signs: 04/16/22 12:19 04/16/22 13:50 Temperature 97.7 F L Temperature Source Temporal Pulse Rate 75 95 Respiratory Rate 18 16 Blood Pressure 90/68 82/72 L Blood Pressure Mean 75 75 Pulse Ox 98 97 Oxygen Delivery Method Room Air Room Air Positive well nourished, well developed and obese; Negative for cachectic, contractures or unkempt General Appearance ED: well developed and NAD; Negative for unkempt, cachectic, contractures or pallor Nutritional Appearance: obese; Negative for cachectic HEENT Reports moist mucous membranes; Denies dry mucous membranes Negative for trauma Mouth ED: No dry mucous membranes Mouth: No dry mucous membranes Eyes PERRL and EOMs intact bilaterally General Eye ED: Negative for pale conjunctiva or scleral icterus Neck no lymphadenopathy, supple and no JVD General: Negative for tenderness Thyroid: Negative for other Resp normal respiratory effort and clear to auscultation bilaterally Effort and Inspection: Negative for pain with movement Auscultation: Negative for rales or rhonchi Percussion: Negative for other Cardio regular rate, regular rhythm, S1 normal heart sound, S2 normal heart sound and no murmurs Palpation: Negative for palpable S3 Rate: Negative for bradycardia Rhythm: Negative for abnormal rhythm Bruits: Negative for other GI normal to inspection, nondistended, normoactive bowel sounds, soft to palpation, non-tender, non-distended and no masses Inspection: Negative for abdominal distention Auscultation: Negative for hyperactive bowel sounds Palpation: Negative for tender, guarding or pulsatile mass Back/Spine normal to inspection Back/Spine Narrative: Well-healed prior lumbar spine surgical scar. No cellulitis. General Back: Negative for CVA tenderness Cervical Spine: Negative for cervical spine tenderness Thoracic Spine / Upper Back: Negative for paraspinal muscle tenderness Extremity normal to inspection General Extremety ED: Negative for edema or tenderness General Extremity: Negative for edema Neuro oriented x3 Sensorium / Orientation: alert; Negative for confused or stuporous Sensory Exam: No other Psych mental status grossly normal Appearance: Negative for unkempt Attitude: No agitated Mood & Affect: Negative for depressed, sad or tearful Skin General Skin Exam: Negative for jaundice or pallor Lesions: No lesion noted Rashes: No rashes noted Trauma: Negative for abrasion Wounds: Negative for wounds noted MDM MDM MDM Narrative Medical decision making narrative: 56-year-old with acute on chronic back pain and prior back surgery in September. Starting to follow-up with the [facility] to have further evaluation. Should begin an oxycodone here for pain. We will see if we can ambulate her. Definitely nothing specifically new today. She has had extensive CAT scans and MRIs in the recent past. Repeat exam patient is doing well at 4:59 PM. Nurses states she was able to ambulate with a walker which is what she uses at home. Her pain is much better with the oxycodone. I discussed with her to swing nothing else to do at this time she needs a follow-up with the work-up she is given at the [facility] and with her local spine surgeon. She requested narcotic pain medication which I explained to her need to be taken care of through the physicians over taking care of her consistently. She just got out of the prescription from her primary care physician for oxycodone. Discharge Plan Triage Chief Complaint: Back ED Provider: Reese Schulte Dx/Rx/DC Orders Clinical Impression: Chronic back pain, History of diabetes mellitus Instructions: ED Chronic Pain Prescriptions: No Action atorvastatin 80 mg tablet 80 mg PO QHS budesonide-formoterol [Symbicort] 160-4.5 mcg/actuation HFA aerosol inhaler 2 puff inhalation BID albuterol sulfate 90 mcg/actuation HFA aerosol inhaler 2 puff inhalation Q6H PRN (Reason: SOB) pantoprazole 40 mg tablet,delayed release (DR/EC) 40 mg PO DAILY tizanidine 4 mg capsule 4 mg PO BID PRN (Reason: Muscle Pain) insulin glargine 100 unit/mL (3 mL) insulin pen 42 unit SC QHS ipratropium-albuterol 0.5 mg-3 mg(2.5 mg base)/3 mL solution for nebulization 3 ml inhalation 4X/DAY PRN (Reason: sob) amitriptyline 100 mg tablet 100 mg PO QHS Label Comments: take 1 tablet by oral route at bedtime per day loratadine 10 mg tablet 10 mg PO DAILY insulin lispro [Humalog KwikPen Insulin] 100 unit/mL insulin pen 8 unit subcut BID Protocol: 4. Sliding Scale Insulin High-Med Dosing Condition: 150-199 mg/dl = 2 units Condition: 200-259 mg/dl = 4 units Condition: 260-324 mg/dl = 6 units Condition: 325-374 mg/dl = 8 units Condition: 375-409 mg/dl = 10 units Condition: 410-449 mg/dl = 11 units Condition: Greater than 449 call physician Protocol Text: - Use for Total Daily Dose of Insulin 56-80 units - Patient who are insulin resistant or septic HIGH MEDIUM DOSING ALGORITHM Jardiance 10 mg tablet 10 mg PO DAILY Label Comments: TAKE 1 TABLET BY MOUTH EVERY MORNING acetaminophen 500 mg tablet 1,000 mg PO Q8H PRN (Reason: Pain) citalopram 20 mg tablet 20 mg PO DAILY lisinopril 40 mg tablet 40 mg PO DAILY Qty: 30 2RF hydrochlorothiazide 25 mg tablet 25 mg PO DAILY Qty: 30 1RF metoprolol tartrate 25 mg Tablet 25 mg PO BID Qty: 60 1RF Primary Care Provider: Gris Fofana NP Referrals: Beck Medellin DO [Med Staff - Active Staff] - As soon as possible Gris Fofana NP, MATERIAL ATTENDANT-C [Primary Care Provider] - As soon as possible Activity Restrictions/Additional Instructions: Follow-up with your primary care physician, your spine surgeon Dr. Beck Medellin or at the [facility]. Further pain medication either through your primary care provider or Dr. Medellin. Disposition Disposition: Home, Self Care
[2022-04-16] MEDS: oxyCODONE 5 MG Tablet PO (15:28)
[2022-04-16 17:27] VITALS: BP 91/48; RESP 16; O2SAT 93
== END 2022-04-16 17:28 | disposition home or self-care (01) ==
PROVIDERS: Emergency Provider Emergency Medicine; PCP Nurse Practitioner Primary Care; Visit Provider Emergency Medicine
DX: M54.9 Dorsalgia, unspecified (principal); J44.9 Chronic obstructive pulmonary disease, unspecified; E11.9 Type 2 diabetes mellitus without complications; Z79.4 Long term (current) use of insulin; G89.29 Other chronic pain; I10 Essential (primary) hypertension; E78.5 Hyperlipidemia, unspecified; I25.10 Atherosclerotic heart disease of native coronary artery without angina pectoris; E78.00 Pure hypercholesterolemia, unspecified
CPT/HCPCS: 99284

== ENCOUNTER 2022-04-21 19:34 | Emergency (ER) | payer MEDICAID, SELFPAY ==
[2022-04-21 19:35] VITALS: BP 103/80; PULSE 63; RESP 16; TEMP 36.9; O2SAT 98
[2022-04-21 19:36] VITALS: BP 103/80; PULSE 63; RESP 16; TEMP 36.9; O2SAT 98; BMI 28.4
--- NOTE | 2022-04-21 20:00 | EDS_ITS ---
HPI History of Present Illness Chief Complaint: Fall Informant: patient Onset/Context/Timing Onset: Today Narrative Narrative: Patient states that she fell today when her legs gave out on her. She states she has frequent falls because of this. She complains of pain to her knees as well as the toes of her left foot. She believes they got bent back under her. She complains of back pain and feels that the hardware put in her back for her surgery was pulled out of alignment at some point. She had back surgery in February and states that she does really has not regained her strength and normal activity since that time. She states that she had a disagreement with her pain management doctor and now cannot get any pain medication for home. She states that if she tries Tylenol it does not work for her. [facility] Medical History Anxiety Arthritis Asthma Back pain Back pain Cardiology follow-up encounter Chronic neck and back pain COPD (chronic obstructive pulmonary disease) Coronary artery calcification seen on CAT scan CPAP (continuous positive airway pressure) dependence Depression Diabetes Dietary restriction Difficulty balancing Essential hypertension Gastric reflux High cholesterol History of arthritis History of echocardiogram History of edema History of pain when walking History of renal disease History of stomach ulcers History of stress test Hyperlipidemia Hypertension Injury of head and neck Insulin dependent diabetes mellitus Knee pain Lumbar stenosis Migraine headache Obesity Osteomyelitis Shortness of breath on exertion Shoulder pain Sleep apnea Smoker Spinal fusion failure Strain of muscle, fascia and tendon of pelvis, initial encounter Strain of right hip and thigh Strain of right inguinal region Strain of unspecified muscles, fascia and tendons at thigh level, right thigh, initial encounter Syncope Thyroid disease Type 2 diabetes mellitus Walker as ambulation aid Wears glasses Wears hearing aid Home Medications insulin glargine 100 unit/mL (3 mL) subcutaneous pen 42 unit subcut QHS DIABETES 11/03/20 [History Last Taken 12/25/21] albuterol sulfate 90 mcg/actuation aerosol inhaler 2 puff inhalation Q6H PRN SOB 06/14/21 [History Last Taken 12/25/21] atorvastatin 80 mg tablet 80 mg PO QHS CHOLESTEROL 06/14/21 [History Last Taken 02/21/22] budesonide-formoterol HFA 160 mcg-4.5 mcg/actuation aerosol inhaler (Symbicort) 2 puff inhalation BID ASTHMA 06/14/21 [History Last Taken 12/25/21] pantoprazole 40 mg tablet,delayed release 40 mg PO DAILY GERD 06/14/21 [History Last Taken 02/21/22] tizanidine 4 mg capsule 4 mg PO BID PRN Muscle Pain 06/14/21 [History Last Taken 12/18/21] amitriptyline 100 mg tablet 100 mg PO QHS sleep 11/27/21 [History Last Taken 12/25/21] ipratropium 0.5 mg-albuterol 3 mg (2.5 mg base)/3 mL nebulization soln 3 ml inhalation 4X/DAY PRN sob 11/27/21 [History Last Taken 11/25/21] loratadine 10 mg tablet 10 mg PO DAILY allergies 11/27/21 [History Last Taken 02/21/22] insulin lispro 100 unit/mL subcutaneous pen (Humalog KwikPen (U-100) Insulin) 8 unit subcut BID DM 12/26/21 [History Last Taken Unknown] acetaminophen 500 mg tablet 1,000 mg PO Q8H PRN Pain 02/22/22 [History Last Taken Unknown] citalopram 20 mg tablet 20 mg PO DAILY DEPRESSION 02/22/22 [History Last Taken Unknown] empagliflozin 10 mg tablet (Jardiance) 10 mg PO DAILY DM 02/22/22 [History Last Taken 02/21/22] hydrochlorothiazide 25 mg tablet 25 mg PO DAILY #30 tabs 02/24/22 [Rx Last Taken Unknown] lisinopril 40 mg tablet 40 mg PO DAILY #30 tabs 02/24/22 [Rx Last Taken Unknown] metoprolol tartrate 25 mg tablet 25 mg PO BID #60 tabs 02/24/22 [Rx Last Taken Unknown] oxycodone 5 mg tablet 5 mg PO Q6H PRN pain 3 days #10 tabs 04/21/22 [Rx Last Taken Unknown] Allergy/AdvReac Type Severity Reaction Status Date / Time duloxetine [From Cymbalta] Allergy Unknown Verified 04/16/22 12:24 pregabalin [From Lyrica] Allergy Unknown Verified 04/16/22 12:24 Penicillins AdvReac Mild leaves a Verified 04/16/22 12:24 bad taste in her mouth. NSAIDS (Non-Steroidal AdvReac Upset Verified 04/16/22 12:24 Anti-Inflamma Stomach Family History Father Cancer Unclear type. Mother Lung cancer Concurrent tobacco use history. Surgical History History of ankle surgery History of History of carpal tunnel release History of hysterectomy History of open reduction and internal fixation (ORIF) procedure History of partial thyroidectomy Social History household members: none Smoking Status: Current every day smoker tobacco type: cigarettes alcohol intake: never substance use type: does not use ROS ROS ED Constitutional Constitutional ED: Denies chills or fever(s) Eyes Eyes: Denies change in vision or discharge from eye(s) ENT ENT ED: Denies discharge from eye(s), rhinorrhea or sore throat Cardiovascular Cardiovascular: Denies chest pain or palpitations Respiratory/Chest Respiratory/Chest: Denies cough or dyspnea Gastrointestinal Gastrointestinal: Denies abdominal pain, diarrhea, nausea or vomiting Genitourinary Genitourinary ED: Denies difficulty urinating or dysuria Musculoskeletal Musculoskeletal: Reports back pain and extremity pain Integumentary Denies Abrasions or rash Neurologic Neurologic: Denies headache(s) or weakness Psychiatric Psychiatric: Denies anxiety or depression Allergic/Immunologic Allergic/Immunologic ED: Denies lip swelling or urticaria EXAM Physical Exam Const Vital Signs: 04/21/22 19:36 04/21/22 19:35 Temperature 98.5 F 98.5 F Temperature Source Oral Oral Pulse Rate 63 63 Respiratory Rate 16 16 Blood Pressure 103/80 103/80 Blood Pressure Mean 87 87 Pulse Ox 98 98 Oxygen Delivery Method Room Air Room Air Positive well nourished and well developed General Appearance ED: well developed HEENT Reports moist mucous membranes Eyes PERRL and EOMs intact bilaterally Chest Wall inspection of chest normal and palpation of chest normal Resp normal respiratory effort and clear to auscultation bilaterally Cardio regular rate and regular rhythm GI normal to inspection, nondistended, normoactive bowel sounds and non-tender Palpation: soft Extremity Extremity Narrative: Patient initially yells when I palpate over the knees bilaterally. There is no edema, ecchymosis, abrasions. When I distract her with questions and palpate over the same area she does not react. There is no tenderness over the anterior lopez. No tenderness over the feet or toes. Neuro oriented x3 Psych Mood & Affect: anxious and tearful Skin no rashes or lesions noted MDM MDM MDM Narrative Medical decision making narrative: Patient was given IM injection of Toradol. X-rays of the bilateral knees were obtained along with left foot. Lumbar spine x-rays obtained. Radiography Diagnostic Testing: Clinical Impression(s) from Imaging Studies Foot X-Ray 04/21/22 20:20 IMPRESSION: Normal x-ray examination of the foot. Electronically Signed: Jeremiah Lau MD at 21:09 EDT Reading Location ID and State: [email or web address] [facility] [employer] , Service support , Knee X-Ray 04/21/22 20:20 IMPRESSION: Normal x-ray examination of the knee. Electronically Signed: Jeremiah Lau MD at 21:07 EDT Reading Location ID and State: [email or web address] / [employer] , Service support , Knee X-Ray 04/21/22 20:20 IMPRESSION: Normal x-ray examination of the knee. Electronically Signed: Jeremiah Lau MD at 21:06 EDT Reading Location ID and State: [email or web address] [facility] [employer] , Service support , Lumbar Spine X-Ray 04/21/22 20:20 IMPRESSION: Acute mild compression fracture of T12. Electronically Signed: Jeremiah Lau MD at 21:08 EDT Reading Location ID and State: [email or web address] [facility] [employer] , Service support , Treatment and Re-Evaluation Narrative: X-rays of the bilateral knees and left foot per my interpretation reveal no acute fracture. Radiology interpretation is reviewed and agrees. Lumbar spine x-rays per my review reveal hardware to be unchanged when compared to prior study of 03/23/2022. Radiology feels there is a new compression fracture of T12 compared to this date. In light of this patient will be given a prescription for Percocet will follow up with Dr. Medellin. She is neurologically intact. Discharge Plan Triage Chief Complaint: Fall ED Provider: Marcy Kidd Dx/Rx/DC Orders Clinical Impression: Fall, Compression fracture of T12 vertebra Instructions: ED Fracture, Vertebral Compression Prescriptions: New oxycodone 5 mg tablet 5 mg PO Q6H PRN (Reason: pain) 3 Days Qty: 10 0RF No Action atorvastatin 80 mg tablet 80 mg PO QHS budesonide-formoterol [Symbicort] 160-4.5 mcg/actuation HFA aerosol inhaler 2 puff inhalation BID albuterol sulfate 90 mcg/actuation HFA aerosol inhaler 2 puff inhalation Q6H PRN (Reason: SOB) pantoprazole 40 mg tablet,delayed release (DR/EC) 40 mg PO DAILY tizanidine 4 mg capsule 4 mg PO BID PRN (Reason: Muscle Pain) insulin glargine 100 unit/mL (3 mL) insulin pen 42 unit SC QHS ipratropium-albuterol 0.5 mg-3 mg(2.5 mg base)/3 mL solution for nebulization 3 ml inhalation 4X/DAY PRN (Reason: sob) amitriptyline 100 mg tablet 100 mg PO QHS Label Comments: take 1 tablet by oral route at bedtime per day loratadine 10 mg tablet 10 mg PO DAILY insulin lispro [Humalog KwikPen Insulin] 100 unit/mL insulin pen 8 unit subcut BID Protocol: 4. Sliding Scale Insulin High-Med Dosing Condition: 150-199 mg/dl = 2 units Condition: 200-259 mg/dl = 4 units Condition: 260-324 mg/dl = 6 units Condition: 325-374 mg/dl = 8 units Condition: 375-409 mg/dl = 10 units Condition: 410-449 mg/dl = 11 units Condition: Greater than 449 call physician Protocol Text: - Use for Total Daily Dose of Insulin 56-80 units - Patient who are insulin resistant or septic HIGH MEDIUM DOSING ALGORITHM Jardiance 10 mg tablet 10 mg PO DAILY Label Comments: TAKE 1 TABLET BY MOUTH EVERY MORNING acetaminophen 500 mg tablet 1,000 mg PO Q8H PRN (Reason: Pain) citalopram 20 mg tablet 20 mg PO DAILY lisinopril 40 mg tablet 40 mg PO DAILY Qty: 30 2RF hydrochlorothiazide 25 mg tablet 25 mg PO DAILY Qty: 30 1RF metoprolol tartrate 25 mg Tablet 25 mg PO BID Qty: 60 1RF Primary Care Provider: Gris Fofana NP Referrals: Beck Medellin DO [Med Staff - Active Staff] - As soon as possible Gris Fofana NP, [facility] [Primary Care Provider] - Disposition Disposition: Home, Self Care
[2022-04-21] MEDS: Ketorolac 60 MG/2 ML Vial IM (20:11)
--- NOTE | 2022-04-21 20:20 | RAD_ITS ---
STUDY: X-RAY - RIGHT KNEE REASON FOR EXAM: Female, 56 years old. fall, knee pain TECHNIQUE: 4 view(s) of the knee. COMPARISON: None. FINDINGS: Normal visualized distal femur. Normal visualized proximal tibia and fibula. Normal proximal tibiofibular articulation. Normal medial femorotibial compartment. Normal lateral femorotibial compartment. Normal patellofemoral articulation. The soft tissue structures are unremarkable. RAD/Knee 4 or More Views IMPRESSION: Normal x-ray examination of the knee. Electronically Signed: Jeremiah Lau MD at 21:06 EDT ,
--- NOTE | 2022-04-21 20:20 | RAD_ITS ---
STUDY: X-RAY - LEFT FOOT CLINICAL: Female, 56 years old. fall, foot pain TECHNIQUE: 3 view(s) of the foot. COMPARISON: None. FINDINGS: Normal talus, calcaneus, and tarsal bones. Normal visualized subtalar, talonavicular, calcaneocuboid, tarsal and tarsometatarsal articulations. Normal metatarsi. Normal metatarsophalangeal joint of the great toe. Normal tibial and fibular sesamoid bones. Normal interphalangeal joint of the great toe. Normal phalanges of the great toe. Normal second through fifth metatarsophalangeal joints. Normal interphalangeal joints and phalanges of the lesser toes. The soft tissue structures are unremarkable. RAD/Foot min 3 Views IMPRESSION: Normal x-ray examination of the foot. Electronically Signed: Jeremiah Lau MD at 21:09 EDT ,
--- NOTE | 2022-04-21 20:20 | RAD_ITS ---
STUDY: X-RAY - LEFT KNEE REASON FOR EXAM: Female, 56 years old. fall TECHNIQUE: 4 view(s) of the knee. COMPARISON: None. FINDINGS: Normal visualized distal femur. Normal visualized proximal tibia and fibula. Normal proximal tibiofibular articulation. Normal medial femorotibial compartment. Normal lateral femorotibial compartment. Normal patellofemoral articulation. The soft tissue structures are unremarkable. RAD/Knee 4 or More Views IMPRESSION: Normal x-ray examination of the knee. Electronically Signed: Jeremiah Lau MD at 21:07 EDT ,
--- NOTE | 2022-04-21 20:20 | RAD_ITS ---
STUDY: X-RAY - LUMBAR SPINE REASON FOR EXAM: Female, 56 years old. pain, fall TECHNIQUE: 3 view(s) of the lumbar spine were obtained. COMPARISON: 03/23/2022 FINDINGS: Normal lumbar lordosis. Mild levoscoliosis centered at L2. Status post discectomy and transpedicular fixation at L4/L5 with anatomic alignment. Interval development of mild loss of height of the T12 vertebral body consistent with an acute compression fracture. Normal disc space heights. The soft tissue structures are unremarkable. RAD/Lumbar Spine 2 or 3 Views IMPRESSION: Acute mild compression fracture of T12. Electronically Signed: Jeremiah Lau MD at 21:08 EDT ,
[2022-04-21] MEDS: oxyCODONE 5 MG Tablet PO (21:49)
== END 2022-04-21 21:52 | disposition home or self-care (01) ==
PROVIDERS: Emergency Provider Emergency Medicine; PCP Nurse Practitioner Primary Care; Visit Provider Emergency Medicine
DX: M48.54XA Collapsed vertebra, not elsewhere classified, thoracic region, initial encounter for fracture (principal); J44.9 Chronic obstructive pulmonary disease, unspecified; E11.9 Type 2 diabetes mellitus without complications; Z79.4 Long term (current) use of insulin; I25.10 Atherosclerotic heart disease of native coronary artery without angina pectoris; E78.5 Hyperlipidemia, unspecified; M25.561 Pain in right knee; E78.00 Pure hypercholesterolemia, unspecified; I10 Essential (primary) hypertension; M25.562 Pain in left knee; F17.210 Nicotine dependence, cigarettes, uncomplicated
CPT/HCPCS: 73564; 73630; 99284; 72100

== ENCOUNTER 2022-04-22 13:19 | Inpatient (IN) | payer MEDICAID, SELFPAY ==
[2022-04-22] VITALS (16 sets, daily range): BP systolic 68–125; BP diastolic 50–78; PULSE 62–85; RESP 11–20; TEMP 36.5–36.7; O2SAT 90–98; BMI 28.2; BMI 27.3
--- NOTE | 2022-04-22 13:38 | ED.RN ---
PT [facility]ANING REQUESTING PAIN MEDS.
--- NOTE | 2022-04-22 13:49 | EKG12_ITS ---
Test Reason : hypoglycemia Blood Pressure : / mmHG Vent. Rate : 063 BPM Atrial Rate : 063 BPM P-R Int : 192 ms QRS Dur : 088 ms QT Int : 488 ms P-R-T Axes : 041 -23 005 degrees QTc Int : 499 ms Sinus rhythm with Premature atrial complexes Inferior infarct , age undetermined, cannot be excluded Poor R wave progression Abnormal ECG Confirmed by TAVON CRABTREE, EPI ([id number]), graphic editor DIANA HAYES ([id number]) on 04/24/2022 9:41:28 AM Referred By: Dudley Confirmed By:EPI MONTES DE OCA MD
[2022-04-22] MEDS: 0.9% Normal Saline 1,000 ML 1000 ML IV (13:55)
[2022-04-22 14:08] LABS: Absolute Lymphocyte Count 2.94 X10^3/uL (0.83-4.51); Absolute Neutrophil Count 8.9 X10^3/uL (2.0-7.7); Basophil# 0.03 X10^3/uL; Basophil% 0.2 % (0-1); Eosinophils% 0.8 % (0-5); Hematocrit 43.3 % (37-47); Hemoglobin 14.2 g/dL (12.0-15.0); Lymphocyte # 2.94 X10^3/ul (0.83-4.51); Lymphocyte % 23.1 % (19-41); Mean Corp Hgb Conc 32.8 g/dL (32-36); Mean Corpuscular Hgb 28.3 pg (27.0-32.0); Mean Corpuscular Volume 86.3 fL (81-99); Mean Platelet Vol. 13.1 fl (6.2-12.0); Monocyte# 0.67 X10^3/uL; Monocyte% 5.3 % (0-10); NRBC Flagged by Analyzer 0 % (0-5); Neutrophil # 8.91 X10^3/uL (2.7-7.7); Neutrophil % 69.9 % (47-70); Platelet Count 339 K/mm3 (150-450); RBC Distribution Width CV 15.9 % (11.6-14.6); RBC Distribution Width SD 49.6 fl (35.1-43.9); Red Blood Count 5.02 M/mm3 (4.2-5.4); White Blood Count 12.7 K/mm3 (4.4-11.0)
--- NOTE | 2022-04-22 14:16 | EDS_ITS ---
HPI History of Present Illness Chief Complaint: Hypotension Narrative Narrative: Patient presents because of recurrent orthostatic syncope. This is been going on for several weeks, but as of lately it is every time she tries to stand up and she cannot function. She states she has been checking her blood pressure at home as well as occasional visits to the doctor like when she was in the ER yesterday after a fall and diagnosed with a T12 fracture, and she states her blood pressure has been low. It is low upon arrival here today as with EMS when they picked her up upon her calling 911 today. She denies any new symptoms compared with her visit yesterday. She has a history of vertigo, she states when she turns her head she feels vertiginous but this started before her back surgery in September, she had a fusion of her lumbar spine due to pain and sciatica symptoms according to her. Subsequently, she developed weakness in her legs without bowel or bladder dysfunction or perineal paresthesias, those symptoms have been unchanged, she still has sciatica going down both legs and her legs are weak, contributing to multiple falls. She has pain in her low back that has been there since her surgery in September, but it is worse since she broke T12 as told to her during her visit yesterday. She states that her postoperative course was complicated by vertebral osteomyelitis and spinal stenosis, according to the patient. She had surgery by Dr. Medellin here. She states she has visited him since then but has been redirected to [facility], she states less than 1 week ago she saw someone there she thinks it was neurology, she states it felt like a meet and greet and she is supposed to see a back specialist there as well but has not yet. She states she is concerned that she cannot function because every time she stands up, she passes out, falls again, and she is concerned that she is going to injure something else. She denies any cough, fevers, urinary symptoms except for chronic urgency that is unchanged, abdominal symptoms, vision changes, headaches. Her back pain is low. She has painful paresthesias in both feet. Again those symptoms are unchanged but worse yesterday since her fall with regards to her low back. [facility] Medical History Anxiety Arthritis Asthma Back pain Back pain Cardiology follow-up encounter Chronic neck and back pain COPD (chronic obstructive pulmonary disease) Coronary artery calcification seen on CAT scan CPAP (continuous positive airway pressure) dependence Depression Diabetes Dietary restriction Difficulty balancing Essential hypertension Gastric reflux High cholesterol History of arthritis History of echocardiogram History of edema History of pain when walking History of renal disease History of stomach ulcers History of stress test Hyperlipidemia Hypertension Injury of head and neck Insulin dependent diabetes mellitus Knee pain Lumbar stenosis Migraine headache Obesity Osteomyelitis Shortness of breath on exertion Shoulder pain Sleep apnea Smoker Spinal fusion failure Strain of muscle, fascia and tendon of pelvis, initial encounter Strain of right hip and thigh Strain of right inguinal region Strain of unspecified muscles, fascia and tendons at thigh level, right thigh, initial encounter Syncope Thyroid disease Type 2 diabetes mellitus Walker as ambulation aid Wears glasses Wears hearing aid Home Medications insulin glargine 100 unit/mL (3 mL) subcutaneous pen 42 unit subcut QHS DIABETES 11/03/20 [History Last Taken 12/25/21] albuterol sulfate 90 mcg/actuation aerosol inhaler 2 puff inhalation Q6H PRN SOB 06/14/21 [History Last Taken 12/25/21] atorvastatin 80 mg tablet 80 mg PO QHS CHOLESTEROL 06/14/21 [History Last Taken 02/21/22] budesonide-formoterol HFA 160 mcg-4.5 mcg/actuation aerosol inhaler (Symbicort) 2 puff inhalation BID ASTHMA 06/14/21 [History Last Taken 12/25/21] pantoprazole 40 mg tablet,delayed release 40 mg PO DAILY GERD 06/14/21 [History Last Taken 02/21/22] tizanidine 4 mg capsule 4 mg PO BID PRN Muscle Pain 06/14/21 [History Last Taken 12/18/21] amitriptyline 100 mg tablet 100 mg PO QHS sleep 11/27/21 [History Last Taken 12/25/21] ipratropium 0.5 mg-albuterol 3 mg (2.5 mg base)/3 mL nebulization soln 3 ml inhalation 4X/DAY PRN sob 11/27/21 [History Last Taken 11/25/21] loratadine 10 mg tablet 10 mg PO DAILY allergies 11/27/21 [History Last Taken 02/21/22] insulin lispro 100 unit/mL subcutaneous pen (Humalog KwikPen (U-100) Insulin) 8 unit subcut BID DM 12/26/21 [History Last Taken Unknown] acetaminophen 500 mg tablet 1,000 mg PO Q8H PRN Pain 02/22/22 [History Last Taken Unknown] citalopram 20 mg tablet 20 mg PO DAILY DEPRESSION 02/22/22 [History Last Taken Unknown] empagliflozin 10 mg tablet (Jardiance) 10 mg PO DAILY DM 02/22/22 [History Last Taken 02/21/22] hydrochlorothiazide 25 mg tablet 25 mg PO DAILY #30 tabs 02/24/22 [Rx Last Taken Unknown] lisinopril 40 mg tablet 40 mg PO DAILY #30 tabs 02/24/22 [Rx Last Taken Unknown] metoprolol tartrate 25 mg tablet 25 mg PO BID #60 tabs 02/24/22 [Rx Last Taken Unknown] oxycodone 5 mg tablet 5 mg PO Q6H PRN pain 3 days #10 tabs 04/21/22 [Rx Last Taken Unknown] Allergy/AdvReac Type Severity Reaction Status Date / Time duloxetine [From Cymbalta] Allergy Unknown Verified 04/22/22 13:20 pregabalin [From Lyrica] Allergy Unknown Verified 04/22/22 13:20 Penicillins AdvReac Mild leaves a Verified 04/22/22 13:20 bad taste in her mouth. NSAIDS (Non-Steroidal AdvReac Upset Verified 04/22/22 13:20 Anti-Inflamma Stomach Family History Father Cancer Unclear type. Mother Lung cancer Concurrent tobacco use history. Surgical History History of ankle surgery History of History of carpal tunnel release History of hysterectomy History of open reduction and internal fixation (ORIF) procedure History of partial thyroidectomy Social History household members: none Smoking Status: Current every day smoker tobacco type: cigarettes alcohol intake: never substance use type: does not use ROS ROS ED Constitutional Constitutional ED: Denies chills or fever(s) Eyes Eyes: Denies change in vision or diplopia ENT ENT ED: Reports vertigo; Denies rhinorrhea, sore throat or tinnitus Cardiovascular Cardiovascular: Reports as per HPI, orthostatic symptoms and weakness in extremities; Denies chest pain or palpitations Respiratory/Chest Respiratory/Chest: Denies cough or dyspnea Gastrointestinal Gastrointestinal: Denies abdominal pain, diarrhea, nausea or vomiting Genitourinary Genitourinary ED: Denies dysuria or hematuria Musculoskeletal Musculoskeletal: Reports back pain; Denies neck pain Integumentary Denies abscess or rash Neurologic Neurologic: Reports paresthesias and weakness; Denies headache(s) Psychiatric Psychiatric: Denies anxiety or suicidal thoughts EXAM Physical Exam Const Vital Signs: 04/22/22 13:20 04/22/22 13:30 04/22/22 13:37 Temperature 97.8 F Temperature Source Temporal Pulse Rate 64 Respiratory Rate 14 Respiratory Effort Normal Non-Labored Blood Pressure 70/50 L 68/51 L Blood Pressure Mean 56 56 Pulse Ox 93 90 Oxygen Delivery Method Room Air Room Air Room Air 04/22/22 13:44 04/22/22 13:59 04/22/22 15:04 Temperature 98 F Temperature Source Temporal Pulse Rate 62 63 Respiratory Rate 11 L 13 Respiratory Effort Blood Pressure 86/55 L 91/60 97/69 Blood Pressure Mean 65 70 78 Pulse Ox 98 94 Oxygen Delivery Method Room Air 04/22/22 15:43 Temperature Temperature Source Pulse Rate Respiratory Rate Respiratory Effort Blood Pressure 109/75 Blood Pressure Mean 86 Pulse Ox Oxygen Delivery Method Positive well nourished and well developed Constitutional Narrative: Keenly alert, conversive in full sentences, sitting. General Appearance ED: well developed and NAD HEENT Reports moist mucous membranes normocephalic and atraumatic Eyes PERRL and EOMs intact bilaterally Neck full ROM and supple Resp normal respiratory effort and clear to auscultation bilaterally Cardio regular rate, regular rhythm and no murmurs Rate: Negative for tachycardic GI non-tender and non-distended Auscultation: normoactive bowel sounds Palpation: soft Back/Spine no CVA tenderness General Back: other FROM, painful with regards to lumbosacral spine Cervical Spine: Negative for cervical spine tenderness Thoracic Spine / Upper Back: Negative for thoracic spinal tenderness Lumbar Spine / Lower Back: lumbar spinal tenderness L1 (And T12 area. No step- off. Well-healed midline lumbosacral scar.) Extremity normal to inspection General Extremety ED: Negative for edema, pulses abnormal or tenderness General Extremity: Negative for edema or pulses abnormal Neuro oriented x3 and CN's II-XII intact bilaterally Neuro Narrative: 4/5 strength throughout both lower extremities. 5/5 throughout both upper extremities. Sensation subjectively in both feet, strong pulses present. No rmal reflexes, no clonus, toes downgoing. Negative straight leg raises bilaterally while lying/reclined. Sensorium / Orientation: awake and alert Psych mental status grossly normal Skin no rashes or lesions noted and no wounds MDM MDM MDM Narrative Medical decision making narrative: Patient's blood pressure is very low when she got here and fluids were started prior to my evaluation which I continued, she was responding to the fluids, patient looks clinically better than her blood pressure indicates, however I am concerned about the constellation of symptoms, many of them sound chronic but are worsening, now she has significant hyperglycemia, pseudohyponatremia as a result, lactic acidosis, and a leukocytosis as well as DELGADO. After 30cc/kg of isotonic IV fluids, her blood pressure is better, 109/75. My concern is that her vertebral compression fracture could actually represent recurrent osteomyelitis or a new osteomyelitis since she had it before. It was challenging to sort out historical details in this patient who is vertiginous AND orthostatic. I think she needs another MRI of the spine, but in the meantime I am placing her on an insulin drip for hyperglycemia, she is getting fluids, and empiric vancomycin and aztreonam since she has an allergy to penicillins, I otherwise would have given Zosyn. Plan is admission to the PCU since she is clinically stable and her BP is normalized. Certainly diuresis and dehydration given very high BS is in differential, as is septic shock. Lab Data Attestation: I reviewed the patient's lab results. Labs: Laboratory Results - last 24 hr 04/22/22 04/22/22 04/22/22 14:00 14:00 14:00 WBC 12.7 H RBC 5.02 Hgb 14.2 Hct 43.3 MCV 86.3 MCH 28.3 MCHC 32.8 RDW Std Deviation 49.6 H RDW Coeff of Yudelka 15.9 H Plt Count 339 MPV 13.1 H Immature Gran % (Auto) 0.700 Neut % (Auto) 69.9 Lymph % (Auto) 23.1 [place] % (Auto) 5.3 Eos % (Auto) 0.8 Baso % (Auto) 0.2 Absolute Neuts (auto) 8.9 H Absolute Lymphs (auto) 2.94 Nucleated RBC % 0 ESR Sodium 122 L Potassium 4.1 Chloride 81 L Carbon Dioxide 25.0 Anion Gap 16 H BUN 41 H Creatinine 2.03 H Estim Creat Clear Calc 23.07 Est GFR (MDRD) Af Amer 32 L Est GFR (MDRD) Non-Af 27 L BUN/Creatinine Ratio 20.2 H Glucose 750 H* Lactic Acid 3.4 H* Calcium 9.9 Total Bilirubin 0.40 AST 14 L ALT 21 Alkaline Phosphatase 145 H Troponin I High Sens C-React Prot Ext Range Total Protein 7.7 Albumin 3.2 Globulin 4.5 H Albumin/Globulin Ratio 0.7 L 04/22/22 04/22/22 04/22/22 14:00 14:00 14:00 WBC RBC Hgb Hct MCV MCH MCHC RDW Std Deviation RDW Coeff of Yudelka Plt Count MPV Immature Gran % (Auto) Neut % (Auto) Lymph % (Auto) [place] % (Auto) Eos % (Auto) Baso % (Auto) Absolute Neuts (auto) Absolute Lymphs (auto) Nucleated RBC % ESR 68 H Sodium Potassium Chloride Carbon Dioxide Anion Gap BUN Creatinine Estim Creat Clear Calc Est GFR (MDRD) Af Amer Est GFR (MDRD) Non-Af BUN/Creatinine Ratio Glucose Lactic Acid Calcium Total Bilirubin AST ALT Alkaline Phosphatase Troponin I High Sens 4 C-React Prot Ext Range < 2.90 Total Protein Albumin Globulin Albumin/Globulin Ratio Radiography Chest X-Ray - ED: 1 View, Read by ED Physician and No Acute Disease Diagnostic Testing: Clinical Impression(s) from Imaging Studies Chest X-Ray 04/22/22 15:10 IMPRESSION: No acute process of the chest Electronically Signed: Aiden Feldman MD at 15:27 EDT Reading Location ID and State: [facility] / [place] , Service support , Rhythm Strip Rhythm Strip: Sinus Rhythm Rate: 60 Ectopy: PAC(s) EKG Initial EKG: Attestation: I personally reviewed and interpreted this EKG as follows: Interpretation: Sinus Rhythm and No Acute Injury Pattern Comments: Poor R wave progression. Prior EKG tracings: available for review (Poor R wave progression is different but morphology otherwise is unchanged; this can be due to placement among other things.) Critical Care Time Critical Care Time: Yes Critical care time (excluding procedures): 30-74 minutes (40 min), Including time spent:, Discussing w/Patient &/or Family/Extermination Supervisor, Discussing w/Consultants, Arranging Admission or Transfer and Performing Direct Patient Care at Bedside Discharge Plan Dx/Rx/DC Orders Clinical Impression: Transient hypotension, Orthostatic syncope, DELGADO (acute kidney injury), Diabetes mellitus with hyperglycemia, Acute back pain, Acute hyponatremia Disposition Disposition: Acute Care Hospital [facility]
[2022-04-22] MEDS: fentaNYL 100 MCG/2 ML Ampul 50 MCG IV (14:23)
[2022-04-22 14:26] LABS: ALB/GLOB Ratio 0.7 RATIO (0.9-2.4); AST(SGOT) 14 U/L (15-37); Alanine Aminotransfer ALT/SGPT 21 U/L (13-56); Albumin, Serum 3.2 g/dL (3.2-5.0); Alkaline Phosphatase 145 U/L (45-117); Anion Gap 16 (5-15); BUN 41 mg/dL (7-18); BUN/Creat Ratio 20.2 RATIO (10-20); Calcium,Total 9.9 mg/dL (8.5-10.1); Chloride 81 mmol/L (98-107); Creatinine, Serum 2.03 mg/dL (0.55-1.02); EST Glomerular Filtration Rate 27 mL/min (>60); Est Glom Filt Rate - Afr Amer 32 mL/min (>60); Estimated Creatinine Clearance 23.07 ml/min; Globulin 4.5 g/dL (2.2-4.2); Glucose 750 mg/dL (74-106); Potassium 4.1 mmol/L (3.5-5.1); Protein, Total 7.7 g/dL (6.4-8.2); Sodium Level 122 mmol/L (136-145)
[2022-04-22 14:44] LABS: Lactic Acid 3.4 mmol/L (0.4-1.9)
[2022-04-22 14:57] LABS: Troponin-I HS 4 pg/mL (3.0-54.0)
[2022-04-22 14:58] LABS: CRP < 2.90 mg/L (0.0-3.0)
[2022-04-22 15:02] LABS: Erythrocyte Sedimentation Rate 68 mm/hr (0-30)
--- NOTE | 2022-04-22 15:10 | RAD_ITS ---
STUDY: X-RAY CHEST REASON FOR EXAM: Female, 56 years old. weak, hypotensive TECHNIQUE: Single AP portable view of the chest. COMPARISON: March 22, 2022 FINDINGS: The lungs are clear and expanded. There is no demonstrated pleural abnormality. Normal size heart. Normal mediastinum and judah. Normal visualized pulmonary arteries. Normal visualized aortic arch and descending thoracic aorta. Normal visualized thoracic spine. There are healed left-sided rib fractures.. There is no demonstrated abnormality of the visualized soft tissue structures of the upper abdomen. RAD/Chest 1 View (Portable) IMPRESSION: No acute process of the chest Electronically Signed: Aiden Feldman MD at 15:27 EDT ,
--- NOTE | 2022-04-22 16:40 | NURSING ---
DR VANE OLIVAS
[2022-04-22 16:55] LABS: Mucous, Urine 0 SEEN /hpf (<or=2+); Red Blood Cells-Urine 0 SEEN /hpf (0-5)
--- NOTE | 2022-04-22 16:58 | CT_ITS ---
EXAM: CT LUMBAR SPINE WITHOUT INTRAVENOUS CONTRAST CLINICAL INDICATION: pain TECHNIQUE: Helically acquired images were obtained of the lumbar spine without intravenous contrast. 2D reformats were reviewed. This CT exam was performed using one or more of the following dose reduction techniques: automated exposure control, adjustment of the mA and/or kV according to patient size, and/or use of iterative reconstruction technique. This report was created using [employer] report generation technology. RADIATION DOSE: CTDIvol = 13.84 mGy, DLP = 360.74 mGy-cm COMPARISON: xr 7.16.22 FINDINGS: VERTEBRAE: L4-5: There is bilateral facet arthropathy. Loss of intervertebral disc height. There is endplate spondylosis of the vertebral body. Unremarkable central canal. Unremarkable intervertebral neuroforamina. Discogenic endplate changes. Fusion disc in place. New since March 2022, there is a compression deformity of the superior endplate of T12. DISCS/SPINAL CANAL/NEURAL FORAMINA: L3-4: Discogenic endplate changes. Left L4 pedicle screw extends beyond the superior endplate of L4 and into the disc space of L3-4. Vacuum disc phenomenon or gas bubble visualized. Infectious process cannot be excluded. Moderate spinal stenosis. There is bilateral ligamentum flavum thickening. L1-2: Normal endplates. Normal disc height and morphology. Normal central canal and intervertebral neuroforamina. L2-3: Normal endplates. Normal disc height and morphology. Normal central canal and intervertebral neuroforamina. L5-S1: Normal endplates. Normal disc height and morphology. Normal central canal and intervertebral neuroforamina. VASCULATURE: Visualized abdominal aorta is not dilated. LYMPH NODES: Unremarkable. No retroperitoneal adenopathy. CT/Spine Lumbar without Contrast IMPRESSION: 1. L3-4: Discogenic endplate changes. Left L4 pedicle screw extends beyond the superior endplate of L4 and into the disc space of L3-4. Vacuum disc phenomenon or gas bubble visualized. Infectious process cannot be excluded. Moderate spinal stenosis. There is bilateral ligamentum flavum thickening. 2. L4-5: There is bilateral facet arthropathy. Loss of intervertebral disc height. There is endplate spondylosis of the vertebral body. Unremarkable central canal. Unremarkable intervertebral neuroforamina. Discogenic endplate changes. Fusion disc in place. 3. New since March 2022, there is a compression deformity of the superior endplate of T12. Electronically Signed: Elijah Jamil MD at 18:22 EDT ,
[2022-04-22 17:02] LABS: Color, Urine Straw (Yellow); Glucose, Dipstick 1000 mg/dl (Normal); Ketone-Dipstick Negative (Negative); Leukocyte Esterase-Dipstick 100 /ul (Negative); Nitrite-Dipstick Negative (Negative); Occult Blood-Urine Negative /ul (Negative); Protein-Dipstick Negative (Negative); Urine Bilirubin Dipstick Negative (Negative); Urine Clarity Clear (Clear); Urine Urobilinogen Normal (Normal)
--- NOTE | 2022-04-22 17:02 | NURSING ---
PCU VANE TRANSIENT HYPOTENSION, HYPERGLYCEMIA, DELGADO
--- NOTE | 2022-04-22 17:11 | PCM.HP.STD ---
Documented by User: GIANCARLO Hummel 04/22/22 17:41 HPI - General General Date of Admission: 04/22/22 Date of Service: 04/22/22 Chief Complaint: Near Syncope HPI Narrative MILY CHILDRESS, is a 56 F who presents with complaints of near syncope. Patient states that this has been ongoing since September but has gotten worse since her back surgery in February. Patient states that she has fallen multiple times at home and was seen in the ER yesterday due to a fall and was noted to have a T12 fracture. Patient underwent back surgery with Dr. Medellin in February and developed osteomyelitis. Patient was referred to a spine surgeon at the [facility] with whom she had her initial visit but has not followed up with infectious disease. Patient has a significant medical history including diabetes mellitus type 2, hyperlipidemia, hypertension, chronic back pain. Patient states that she has been taking all of her medications as directed however upon admission her blood sugar was over 700. FORMERLY [facility], [facility] Medical History Anxiety Arthritis Asthma Back pain Back pain Cardiology follow-up encounter Chronic neck and back pain COPD (chronic obstructive pulmonary disease) Coronary artery calcification seen on CAT scan CPAP (continuous positive airway pressure) dependence Depression Diabetes Dietary restriction Difficulty balancing Essential hypertension Gastric reflux High cholesterol History of arthritis History of echocardiogram History of edema History of pain when walking History of renal disease History of stomach ulcers History of stress test Hyperlipidemia Hypertension Injury of head and neck Insulin dependent diabetes mellitus Knee pain Lumbar stenosis Migraine headache Obesity Osteomyelitis Shortness of breath on exertion Shoulder pain Sleep apnea Smoker Spinal fusion failure Strain of muscle, fascia and tendon of pelvis, initial encounter Strain of right hip and thigh Strain of right inguinal region Strain of unspecified muscles, fascia and tendons at thigh level, right thigh, initial encounter Syncope Thyroid disease Type 2 diabetes mellitus Walker as ambulation aid Wears glasses Wears hearing aid Home Medications insulin glargine 100 unit/mL (3 mL) subcutaneous pen 42 unit subcut QHS DIABETES 11/03/20 [History Last Taken 12/25/21] albuterol sulfate 90 mcg/actuation aerosol inhaler 2 puff inhalation Q6H PRN SOB 06/14/21 [History Last Taken 12/25/21] atorvastatin 80 mg tablet 80 mg PO QHS CHOLESTEROL 06/14/21 [History Last Taken 02/21/22] budesonide-formoterol HFA 160 mcg-4.5 mcg/actuation aerosol inhaler (Symbicort) 2 puff inhalation BID ASTHMA 06/14/21 [History Last Taken 12/25/21] pantoprazole 40 mg tablet,delayed release 40 mg PO DAILY GERD 06/14/21 [History Last Taken 02/21/22] tizanidine 4 mg capsule 4 mg PO BID PRN Muscle Pain 06/14/21 [History Last Taken 12/18/21] amitriptyline 100 mg tablet 100 mg PO QHS sleep 11/27/21 [History Last Taken 12/25/21] ipratropium 0.5 mg-albuterol 3 mg (2.5 mg base)/3 mL nebulization soln 3 ml inhalation 4X/DAY PRN sob 11/27/21 [History Last Taken 11/25/21] loratadine 10 mg tablet 10 mg PO DAILY allergies 11/27/21 [History Last Taken 02/21/22] insulin lispro 100 unit/mL subcutaneous pen (Humalog KwikPen (U-100) Insulin) 8 unit subcut BID DM 12/26/21 [History Last Taken Unknown] acetaminophen 500 mg tablet 1,000 mg PO Q8H PRN Pain 02/22/22 [History Last Taken Unknown] citalopram 20 mg tablet 20 mg PO DAILY DEPRESSION 02/22/22 [History Last Taken Unknown] empagliflozin 10 mg tablet (Jardiance) 10 mg PO DAILY DM 02/22/22 [History Last Taken 02/21/22] hydrochlorothiazide 25 mg tablet 25 mg PO DAILY #30 tabs 02/24/22 [Rx Last Taken Unknown] lisinopril 40 mg tablet 40 mg PO DAILY #30 tabs 02/24/22 [Rx Last Taken Unknown] metoprolol tartrate 25 mg tablet 25 mg PO BID #60 tabs 02/24/22 [Rx Last Taken Unknown] oxycodone 5 mg tablet 5 mg PO Q6H PRN pain 3 days #10 tabs 04/21/22 [Rx Last Taken Unknown] Allergy/AdvReac Type Severity Reaction Status Date / Time duloxetine [From Cymbalta] Allergy Unknown Verified 04/22/22 13:20 pregabalin [From Lyrica] Allergy Unknown Verified 04/22/22 13:20 Penicillins AdvReac Mild leaves a Verified 04/22/22 13:20 bad taste in her mouth. NSAIDS (Non-Steroidal AdvReac Upset Verified 04/22/22 13:20 Anti-Inflamma Stomach Family History Father Cancer Unclear type. Mother Lung cancer Concurrent tobacco use history. Surgical History History of ankle surgery History of History of carpal tunnel release History of hysterectomy History of open reduction and internal fixation (ORIF) procedure History of partial thyroidectomy Social History household members: none Smoking Status: Current every day smoker tobacco type: cigarettes alcohol intake: never substance use type: does not use ROS Constitutional Constitutional: Denies anorexia, chills, fatigue, fever(s), malaise or weakness Cardiovascular Cardiovascular: Denies chest pain, edema or palpitations Respiratory/Chest Respiratory/Chest: Denies cough, shortness of breath at rest, shortness of breath with exertion or wheezing Gastrointestinal Gastrointestinal: Denies abdominal pain, constipation, diarrhea, nausea or vomiting Genitourinary Genitourinary: Denies dysuria Musculoskeletal Musculoskeletal: Reports back pain; Denies extremity pain, joint pain or joint stiffness Integumentary Integumentary: Denies dry skin Neurologic Neurologic: Reports disequilibrium, dizziness and vertigo; Denies abnormal gait Psychiatric Psychiatric: Denies anxiety or depression Endocrine Endocrinology: Denies change in body appearance Hematologic/Lymphatic Hematologic/Lymphatic: Denies anemia Vital Signs Vital Signs Vital Signs: 04/22/22 13:20 04/22/22 13:30 04/22/22 13:37 Temperature 97.8 F Temperature Source Temporal Pulse Rate 64 Respiratory Rate 14 Respiratory Effort Normal Non-Labored Blood Pressure 70/50 L 68/51 L Blood Pressure Mean 56 56 Pulse Ox 93 90 Oxygen Delivery Method Room Air Room Air Room Air 04/22/22 13:44 04/22/22 13:59 04/22/22 15:04 Temperature 98 F Temperature Source Temporal Pulse Rate 62 63 Respiratory Rate 11 L 13 Respiratory Effort Blood Pressure 86/55 L 91/60 97/69 Blood Pressure Mean 65 70 78 Pulse Ox 98 94 Oxygen Delivery Method Room Air 04/22/22 15:43 04/22/22 16:48 Temperature Temperature Source Pulse Rate 67 Respiratory Rate 18 Respiratory Effort Blood Pressure 109/75 125/78 H Blood Pressure Mean 86 93 Pulse Ox Oxygen Delivery Method Weight Weight: 149 lb 4.047 oz Body Mass Index (BMI) 28.2 Physical Exam Const alert, oriented x3 and no apparent distress HEENT normocephalic and head/scalp atraumatic Eyes conjunctivae normal and no scleral icterus Neck no lymphadenopathy and supple General: trachea midline Resp normal respiratory effort, normal air movement and clear to auscultation bilaterally Cardio regular rate, regular rhythm, S1 normal heart sound, S2 normal heart sound and peripheral pulses 2+ throughout GI normal to inspection, nondistended, normoactive bowel sounds, soft to palpation and non-tender Extremity normal capillary refill and no clubbing, cyanosis or edema Skin Lesions: no lesions Rashes: no rashes Neuro oriented x3, moves all extremities, no focal motor deficits and no sensory deficits noted Sensorium / Orientation: awake and alert Speech: speech normal Psych thought process normal and cooperative Results Lab / Micro Data Result Diagrams: 04/22/22 14:00 04/22/22 14:00 Labs: Laboratory Results - last 24 hr 04/22/22 14:00: WBC 12.7 H, RBC 5.02, Hgb 14.2, Hct 43.3, MCV 86.3, MCH 28.3, MCHC 32.8, RDW Std Deviation 49.6 H, RDW Coeff of Yudelka 15.9 H, Plt Count 339, MPV 13.1 H, Immature Gran % (Auto) 0.700, Neut % (Auto) 69.9, Lymph % (Auto) 23.1, [place] % (Auto) 5.3, Eos % (Auto) 0.8, Baso % (Auto) 0.2, Absolute Neuts (auto) 8.9 H, Absolute Lymphs (auto) 2.94, Nucleated RBC % 0 04/22/22 14:00: Sodium 122 L, Potassium 4.1, Chloride 81 L, Carbon Dioxide 25.0, Anion Gap 16 H, BUN 41 H, Creatinine 2.03 H, Estim Creat Clear Calc 23.07, Est GFR (MDRD) Af Amer 32 L, Est GFR (MDRD) Non-Af 27 L, BUN/Creatinine Ratio 20.2 H, Glucose 750 H*, Calcium 9.9, Total Bilirubin 0.40, AST 14 L, ALT 21, Alkaline Phosphatase 145 H, Total Protein 7.7, Albumin 3.2, Globulin 4.5 H, Albumin/Globulin Ratio 0.7 L 04/22/22 14:00: Lactic Acid 3.4 H* 04/22/22 14:00: ESR 68 H 04/22/22 14:00: C-React Prot Ext Range < 2.90 04/22/22 14:00: Troponin I High Sens 4 Rhythm Strip Rhythm Strip: Sinus Rhythm Rate: 60 Ectopy: PAC(s) Radiology Impression Chest X-Ray 04/22/22 15:10 IMPRESSION: No acute process of the chest Electronically Signed: Aiden Feldman MD at 15:27 EDT Reading Location ID and State: [facility] / [place] , Service support , Assessment & Plan Assessment/Plan (1) Acute hyponatremia: (2) Diabetes mellitus with hyperglycemia: (3) Orthostatic syncope: (4) DELGADO (acute kidney injury): (5) Hypotension: (6) Acute back pain: (7) Compression fracture of T12 vertebra: PLAN: Plan 1. Presyncope secondary to orthostatic hypotension -Admit to PCU -Normal saline 2 L bolus then 150 mL/h -CBC, CMP, magnesium, phosphorus, TSH ordered for a.m. -PT and OT to eval and treat -Intake and output -Orthostatic vital signs x1 positive -Repeat BMP, magnesium pending 2. Diabetes mellitus type 2 with hyperglycemia -ACH S blood sugars with sliding scale insulin ordered -Continue Lantus -Hold Jardiance -Diabetic diet ordered 3. DELGADO secondary to dehydration -Creatinine elevated at 2.01, baseline 1.1 -Normal saline at 150 mL/h -CMP daily 4. Hyponatremia -Likely secondary to dehydration -CMP daily -normal saline at 150 mL/h 5. Rule out osteomyelitis -Patient initiated on vancomycin and aztreonam for possible osteomyelitis as patient has elevated white blood cell count and elevated lactic acid, CRP normal -CT lumbar spine ordered -Blood cultures pending 6. T12 compression fracture -Diagnosed during ER visit yesterday 04/21/2022 -Pain management regimen 7. Hypertension -Continue metoprolol, hold hydrochlorothiazide and lisinopril -Vital signs per protocol, currently patient hypotensive 8. History of hypothyroidism -TSH ordered for morning -Patient has history of partial thyroidectomy 9. Hyperlipidemia -Continue statin DVT prophylaxis-SCDs and subcu heparin This patient was seen by Meli Forrest NP-C under the supervision of Dr. Smith 31 minutes spent in clinical coordination of patient's plan of care. Documented by User: Dr. Keily Smith DO 04/22/22 18:47 HPI - General General Date of Admission: 04/22/22 HPI Narrative MILY CHILDRESS, is a 56 F who presented to the department at [facility] on 04/22/2022 with recurrent orthostatic hypotension/syncope/presyncope. The patient has had multiple ER visits for similar issues and she appears to be markedly dehydrated every time. It appears that they hydrate her and discharge her home but she comes back with similar symptoms. She states she is taking her blood pressure medications as prescribed. She also states that she is taking her antihyperglycemic's as instructed. She complains of polyuria and polydipsia. She states she is drinking a lot of water and Gatorade at home. She is unable to tell me what kind of Gatorade. She states she has been checking her blood pressure at home as well as occasional visits to her doctor. She was in the emergency department yesterday after a fall and was diagnosed with a T12 compression fracture. She has been here recently also with hypertensive emergency and suspected press. She states she is been compliant her antihypertensive regimen since discharge. She complains of back pain but states it is really no worse than yesterday when she had her fall and has been fairly stable. 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 Upon presentation to the emergency department her blood pressure was temperature was 97.8, 70/50, heart rate is 64, respiratory rate is 14, oxygen saturations were anywhere from 90 to 98% on room air. CBC showed a mild leukocytosis with a white count of 12.7 however she had no left shift with a 69.9% neutrophil count. ESR was obtained and found to be 68. Her initial sodium was 122 chloride 81 and when corrected for blood sugar was 132 sodium. Her initial bicarb was 25. Initial anion gap was 16, BUN was 41, with a serum of 2.03 (baseline 0.8-1), her initial blood sugar was 750, lactic acid was 3.4 and a CRP was obtained and found to be 2.9. Her chest x-ray showed no acute processes. In the emergency department cultures were obtained given concern for infection with her hypotension and she was started on antibiotics. She was also aggressively hydrated and initially placed on an insulin drip however this was discontinued prior to transfer to the floor. FORMERLY [facility], [facility] Medical History Anxiety Arthritis Asthma Back pain Back pain Cardiology follow-up encounter Chronic neck and back pain COPD (chronic obstructive pulmonary disease) Coronary artery calcification seen on CAT scan CPAP (continuous positive airway pressure) dependence Depression Diabetes Dietary restriction Difficulty balancing Essential hypertension Gastric reflux High cholesterol History of arthritis History of echocardiogram History of edema History of pain when walking History of renal disease History of stomach ulcers History of stress test Hyperlipidemia Hypertension Injury of head and neck Insulin dependent diabetes mellitus Knee pain Lumbar stenosis Migraine headache Obesity Osteomyelitis Shortness of breath on exertion Shoulder pain Sleep apnea Smoker Spinal fusion failure Strain of muscle, fascia and tendon of pelvis, initial encounter Strain of right hip and thigh Strain of right inguinal region Strain of unspecified muscles, fascia and tendons at thigh level, right thigh, initial encounter Syncope Thyroid disease Type 2 diabetes mellitus Walker as ambulation aid Wears glasses Wears hearing aid Home Medications insulin glargine 100 unit/mL (3 mL) subcutaneous pen 42 unit subcut QHS DIABETES 11/03/20 [History Last Taken 12/25/21] albuterol sulfate 90 mcg/actuation aerosol inhaler 2 puff inhalation Q6H PRN SOB 06/14/21 [History Last Taken 12/25/21] atorvastatin 80 mg tablet 80 mg PO QHS CHOLESTEROL 06/14/21 [History Last Taken 02/21/22] budesonide-formoterol HFA 160 mcg-4.5 mcg/actuation aerosol inhaler (Symbicort) 2 puff inhalation BID ASTHMA 06/14/21 [History Last Taken 12/25/21] pantoprazole 40 mg tablet,delayed release 40 mg PO DAILY GERD 06/14/21 [History Last Taken 02/21/22] tizanidine 4 mg capsule 4 mg PO BID PRN Muscle Pain 06/14/21 [History Last Taken 12/18/21] amitriptyline 100 mg tablet 100 mg PO QHS sleep 11/27/21 [History Last Taken 12/25/21] ipratropium 0.5 mg-albuterol 3 mg (2.5 mg base)/3 mL nebulization soln 3 ml inhalation 4X/DAY PRN sob 11/27/21 [History Last Taken 11/25/21] loratadine 10 mg tablet 10 mg PO DAILY allergies 11/27/21 [History Last Taken 02/21/22] insulin lispro 100 unit/mL subcutaneous pen (Humalog KwikPen (U-100) Insulin) 8 unit subcut BID DM 12/26/21 [History Last Taken Unknown] acetaminophen 500 mg tablet 1,000 mg PO Q8H PRN Pain 02/22/22 [History Last Taken Unknown] citalopram 20 mg tablet 20 mg PO DAILY DEPRESSION 02/22/22 [History Last Taken Unknown] empagliflozin 10 mg tablet (Jardiance) 10 mg PO DAILY DM 02/22/22 [History Last Taken 02/21/22] hydrochlorothiazide 25 mg tablet 25 mg PO DAILY #30 tabs 02/24/22 [Rx Last Taken Unknown] lisinopril 40 mg tablet 40 mg PO DAILY #30 tabs 02/24/22 [Rx Last Taken Unknown] metoprolol tartrate 25 mg tablet 25 mg PO BID #60 tabs 02/24/22 [Rx Last Taken Unknown] oxycodone 5 mg tablet 5 mg PO Q6H PRN pain 3 days #10 tabs 04/21/22 [Rx Last Taken Unknown] Allergy/AdvReac Type Severity Reaction Status Date / Time duloxetine [From Cymbalta] Allergy Unknown Verified 04/22/22 13:20 pregabalin [From Lyrica] Allergy Unknown Verified 04/22/22 13:20 Penicillins AdvReac Mild leaves a Verified 04/22/22 13:20 bad taste in her mouth. NSAIDS (Non-Steroidal AdvReac Upset Verified 04/22/22 13:20 Anti-Inflamma Stomach Family History Father Cancer Unclear type. Mother Lung cancer Concurrent tobacco use history. Surgical History History of ankle surgery History of History of carpal tunnel release History of hysterectomy History of open reduction and internal fixation (ORIF) procedure History of partial thyroidectomy Social History household members: none Smoking Status: Current every day smoker tobacco type: cigarettes alcohol intake: never substance use type: does not use ROS Constitutional Constitutional: Denies anorexia, change in weight, chills, fatigue, fever(s), malaise, night sweats, weakness, weight gain or weight loss Eyes Eyes: Denies blurry vision, change in vision, discharge from eye(s), double vision, erythema, eye pain, irritation or itchy eyes ENT HEENT: Denies abnormal hearing, dysphagia, ear pain, epistaxis, headache(s), hearing loss, loss taste/smell, nasal congestion, nasal discharge, post nasal drip, sinus pain, sinus pressure, sore throat or throat swelling Cardiovascular Cardiovascular: Denies chest pain, claudication, edema, orthopnea, palpitations, paroxysmal nocturnal dyspnea or syncope Respiratory/Chest Respiratory/Chest: Denies cough, hemoptysis, shortness of breath at rest, shortness of breath with exertion or wheezing Gastrointestinal Gastrointestinal: Denies abdominal pain, constipation, diarrhea, dyspepsia, hematemesis, hematochezia, melena, nausea or vomiting Genitourinary Genitourinary: Reports polyuria and urinary frequency; Denies dysuria, hematuria, nocturia, oliguria, urinary hesitancy, urinary incontinence or urinary urgency Musculoskeletal Musculoskeletal: Reports back pain, limited range of motion, muscle weakness and stiffness; Denies extremity pain, joint pain, joint stiffness, joint swelling or neck pain Integumentary Integumentary: Denies dry skin, jaundice, lesions, pruritus, rash or wounds Neurologic Neurologic: Reports abnormal gait, dizziness, focal weakness and numbness; Denies abnormal speech, confusion, headache(s), lack of coordination, seizures, sensory deficit, tingling, tremor(s) or weakness Psychiatric Psychiatric: Reports anxiety and depression; Denies homicidal ideation or suicidal ideation Endocrine Endocrinology: Reports polydipsia and polyuria; Denies change in body appearance, cold intolerance or heat intolerance Hematologic/Lymphatic Hematologic/Lymphatic: Denies anemia, easy bleeding, easy bruising or lymphadenopathy Physical Exam Const alert, oriented x3, no apparent distress and well nourished Constitutional Narrative: Middle-aged white female lying in bed, appeared comfortable via observation from the hallway, until I arrived in the room, patient appears older than stated age HEENT normocephalic and head/scalp atraumatic HEENT Narrative: Because membranes are dry, dentition is fair, Mallampati is 3 Mouth: dry mucous membranes Eyes PERRL and EOMs intact bilaterally Eyes Narrative: Conjunctiva are normal bilaterally, no scleral icterus Neck no lymphadenopathy, supple, thyroid normal and no carotid bruits Neck Narrative: Trachea midline Resp normal respiratory effort, normal air movement and clear to auscultation bilaterally Resp Narrative: Diffusely diminished but clear Auscultation: diminished lung sounds; Negative for rales, rhonchi or wheezes Cardio regular rate, regular rhythm, S1 normal heart sound, S2 normal heart sound, no murmurs, no rub, no gallops and peripheral pulses 2+ throughout GI normal to inspection, nondistended, normoactive bowel sounds, soft to palpation, non-tender and non-distended Extremity no clubbing, cyanosis or edema Extremity Narrative: Bilateral paraspinal tenderness Skin Skin Narrative: Postoperative lumbar surgeon evaluated and is well-healed Lesions: no lesions Rashes: no rashes Neuro CN's II-XII intact bilaterally, no focal motor deficits and no sensory deficits noted Neuro Narrative: Alert and oriented x3, general weakness most notably in bilateral lower extremities, proximal greater than distal Speech: speech normal Psych thought process normal, cooperative and affect normal Results Lab / Micro Data Result Diagrams: 04/22/22 14:00 04/22/22 14:00 Assessment & Plan Assessment/Plan (1) Acute hyponatremia: (2) Diabetes mellitus with hyperglycemia: (3) Orthostatic syncope: (4) DELGADO (acute kidney injury): (5) Hypotension: (6) Acute back pain: (7) Compression fracture of T12 vertebra: PLAN: Plan Assessment: Acute hypotension Leukocytosis Elevated sed rate Elevated anion gap Acute dehydration Lactic acidosis DM-2 with hyperglycemia T12 compression fracture Presyncope History of osteomyelitis of the lumbar spine L4-L5 Intra to below back pain/chronic pain Degenerative disc disease Hypertension Hyperlipidemia GERD COPD Tobacco abuse-ongoing Overweight Plan: -Thus far patient has been responding to IV fluids--> appears markedly dehydrated on admission -Continue aggressive fluids and reevaluate BMP -Hold HCTZ and lisinopril given renal function and hypotension -Hold metoprolol given hypotension -No extra IV pain medication for now with blood pressure issues--> continue home oxycodone -Patient was fired from pain management see previous documentation -Cultures pending--> doubt sepsis related hypotension however need to rule out infection with recent history -CRP is normal but sed rate is elevated -Check CT of the lumbar spine to rule out infectious process--> unfortunately this will have to be noncontrast given renal function -May need to repeat with contrast depending on results -Start vancomycin and cefepime -We will have patient evaluated by ID as they are familiar with her case -Hold antihypertensives -Continue home insulins -Sliding scale with Accu-Cheks before meals and at bedtime -Check hemoglobin A1c -Continue home for COPD/hyperlipidemia/GERD -Patient was evaluated at [facility] Main campus by spinal surgery for a second opinion on her chronic back issues Charges/Coding Visit Charges Inpatient E&M: 90947 Init Hosp L3
[2022-04-22 17:55] LABS: Bedside Glucose 251 mg/dL (74-106)
[2022-04-22 18:02] LABS: Anion Gap 12 (5-15); BUN 8 mg/dL (7-18); BUN/Creat Ratio 8.6 RATIO (10-20); Calcium,Total 9.2 mg/dL (8.5-10.1); Chloride 110 mmol/L (98-107); Creatinine, Serum 0.92 mg/dL (0.55-1.02); EST Glomerular Filtration Rate 66 mL/min (>60); Est Glom Filt Rate - Afr Amer 80 mL/min (>60); Estimated Creatinine Clearance 50.91 ml/min; Glucose 83 mg/dL (74-106); Magnesium 2.1 mg/dL (1.6-2.6); Potassium 4.1 mmol/L (3.5-5.1); Sodium Level 140 mmol/L (136-145)
[2022-04-22 18:04] LABS: Reflex Lactate? Y
[2022-04-22 18:41] LABS: Bacteria 1+ /hpf (None Seen); Squamous Epithelial Cells - UA 5-10 SEEN /hpf (5-10); White Blood Cells 5-10 SEEN /hpf (0-5)
[2022-04-22 18:43] LABS: Yeast-Urine 1+ /hpf (None Seen)
[2022-04-22] MEDS: 0.9% Normal Saline 1,000 ML 999 ML IV ×2 (19:00→20:12)
[2022-04-22 19:11] LABS: Lactic Acid 2.6 mmol/L (0.4-1.9)
--- NOTE | 2022-04-22 19:57 | PCM.RX.CS ---
Consult Pharmacy has been consulted to manage selected antiobiotic: Vancomycin Type of Consult: New start Suspected Infection: Osteomyelitis Prior Doses of Antibiotics Received/Current Regimen: Received 1750mg iv x 1 in ER as loading dose. Labs: Sodium 122 mmol/L (136-145) L 04/22/22 14:00 Sodium 140 mmol/L (136-145) 04/22/22 14:00 Potassium 4.1 mmol/L (3.5-5.1) 04/22/22 14:00 Potassium 4.1 mmol/L (3.5-5.1) 04/22/22 14:00 Chloride 81 mmol/L (98-107) L 04/22/22 14:00 Chloride 110 mmol/L (98-107) H 04/22/22 14:00 Carbon Dioxide 18.0 mmol/L (21.0-32.0) L 04/22/22 14:00 Carbon Dioxide 25.0 mmol/L (21.0-32.0) 04/22/22 14:00 Anion Gap 12 (5-15) 04/22/22 14:00 Anion Gap 16 (5-15) H 04/22/22 14:00 BUN 8 mg/dL (7-18) 04/22/22 14:00 BUN 41 mg/dL (7-18) H 04/22/22 14:00 Creatinine 0.92 mg/dL (0.55-1.02) 04/22/22 14:00 Creatinine 2.03 mg/dL (0.55-1.02) H 04/22/22 14:00 Est GFR (MDRD) Af Amer 32 mL/min (>60) L 04/22/22 14:00 Est GFR (MDRD) Af Amer 80 mL/min (>60) 04/22/22 14:00 Est GFR (MDRD) Non-Af 27 mL/min (>60) L 04/22/22 14:00 Est GFR (MDRD) Non-Af 66 mL/min (>60) 04/22/22 14:00 BUN/Creatinine Ratio 8.6 RATIO (10-20) L 04/22/22 14:00 BUN/Creatinine Ratio 20.2 RATIO (10-20) H 04/22/22 14:00 Glucose 83 mg/dL (74-106) 04/22/22 14:00 Glucose 750 mg/dL (74-106) H* 04/22/22 14:00 Weight used for dosin.5 kg Estimated Creatinine Clearance: 51ml/min Goal Trough: 15-20 mcg/mL Pharmacy Plan for Drug Dosing: Renal function reviewed. To begin 750mg iv q12h per protocol. Trough level ordered for before 4th cumulative dose. Pharmacy Service will continue to monitor and adjust dosing as required. Follow-Up Labs: Trough Vancomycin - 8.17.22 @0430 before 0500 dose
[2022-04-22] MEDS: Acetaminophen 500 MG Tablet 1000 MG PO (20:17)
[2022-04-22] MEDS: oxyCODONE 5 MG Tablet PO (20:17)
[2022-04-22] MEDS: tiZANidine HCl 2 MG Tablet 4 MG PO (20:18)
[2022-04-22] MEDS: Heparin Injection (Vial) 5,000 UNIT/ML VIAL 5000 UNIT SC (21:12)
[2022-04-22] MEDS: Amitriptyline 100 MG Tablet PO (21:12)
[2022-04-22] MEDS: Atorvastatin Calcium 80 MG Tablet PO (21:12)
[2022-04-22] MEDS: Glucerna Shake 120 ML LIQUID PO (21:17)
[2022-04-22] MEDS: Insulin Glargine-YFGN 100 UNIT/ML Pen 42 UNIT SC (21:23)
[2022-04-22] MEDS: 0.9% Normal Saline 1,000 ML 150 ML IV (21:23)
[2022-04-22] MEDS: Albuterol 2.5 MG/3 ML VIAL.NEB. INHALATION (21:46)
[2022-04-22] MEDS: Budesonide Respules 0.5 MG/2 ML AMPUL.NEB. INHALATION (21:46)
[2022-04-22 22:05] LABS: Bedside Glucose 262 mg/dL (74-106)
[2022-04-23 03:00] VITALS: PULSE 73
[2022-04-23 03:28] VITALS: BP 149/85; PULSE 75; RESP 18; TEMP 36.4; O2SAT 96
[2022-04-23] MEDS: oxyCODONE 5 MG Tablet PO ×2 (03:30→10:18)
[2022-04-23] MEDS: 0.9% Normal Saline 1,000 ML 150 ML IV ×2 (04:23→11:05)
[2022-04-23] MEDS: Heparin Injection (Vial) 5,000 UNIT/ML VIAL 5000 UNIT SC ×2 (05:12→13:53)
[2022-04-23 05:45] LABS: Absolute Neutrophil Count 4.6 X10^3/uL (2.0-7.7); Basophil# 0.02 X10^3/uL; Basophil% 0.3 % (0-1); Eosinophil# 0.19 X10^3/uL; Eosinophils% 2.4 % (0-5); Hemoglobin 10.7 g/dL (12.0-15.0); Lymphocyte % 31.5 % (19-41); Mean Corp Hgb Conc 32.4 g/dL (32-36); Mean Corpuscular Hgb 28.3 pg (27.0-32.0); Mean Corpuscular Volume 87.3 fL (81-99); Mean Platelet Vol. 12.6 fl (6.2-12.0); Monocyte# 0.62 X10^3/uL; Monocyte% 7.8 % (0-10); NRBC Flagged by Analyzer 0 % (0-5); Neutrophil # 4.57 X10^3/uL (2.7-7.7); Neutrophil % 57.6 % (47-70); Platelet Count 228 K/mm3 (150-450); RBC Distribution Width CV 15.9 % (11.6-14.6); RBC Distribution Width SD 50.4 fl (35.1-43.9); Red Blood Count 3.78 M/mm3 (4.2-5.4); White Blood Count 7.9 K/mm3 (4.4-11.0)
[2022-04-23 06:15] LABS: ALB/GLOB Ratio 0.7 RATIO (0.9-2.4); AST(SGOT) 11 U/L (15-37); Alanine Aminotransfer ALT/SGPT 16 U/L (13-56); Albumin, Serum 2.2 g/dL (3.2-5.0); Alkaline Phosphatase 93 U/L (45-117); Anion Gap 8 (5-15); BUN 30 mg/dL (7-18); Calcium,Total 7.9 mg/dL (8.5-10.1); Chloride 108 mmol/L (98-107); EST Glomerular Filtration Rate 61 mL/min (>60); Est Glom Filt Rate - Afr Amer 73 mL/min (>60); Estimated Creatinine Clearance 46.84 ml/min; Globulin 3.1 g/dL (2.2-4.2); Glucose 121 mg/dL (74-106); Magnesium 1.7 mg/dL (1.6-2.6); Potassium 3.4 mmol/L (3.5-5.1); Protein, Total 5.3 g/dL (6.4-8.2); Sodium Level 138 mmol/L (136-145); Thyroid Stim Hormone (TSH) 3.23 uIU/mL (0.358-3.74)
[2022-04-23 06:25] LABS: Phosphorus 3.5 mg/dL (2.5-4.9)
[2022-04-23 06:50] LABS: Bedside Glucose 77 mg/dL (74-106)
[2022-04-23 07:00] VITALS: PULSE 91
[2022-04-23] MEDS: Budesonide Respules 0.5 MG/2 ML AMPUL.NEB. INHALATION (07:04)
[2022-04-23] MEDS: Albuterol 2.5 MG/3 ML VIAL.NEB. INHALATION (07:04)
[2022-04-23 07:05] VITALS: PULSE 96; RESP 14; O2SAT 96
--- NOTE | 2022-04-23 07:42 | PCM.PN.HOSP ---
Objective Data Objective Data Vital Signs: Vital Signs Temp Pulse Resp BP Pulse Ox O2 Del Method 36.4 C L 96 14 149/85 H 96 Room Air 04/23/22 03:28 04/23/22 07:05 04/23/22 07:05 04/23/22 03:28 04/23/22 07:05 04/23/22 07:05 Oxygen Delivery Method Room Air Weight: 65.5 kg Body Mass Index (BMI) 27.3 Intake & Output: Intake and Output for Last 24 Hours 04/21/22 04/22/22 04/23/22 23:59 23:59 23:59 Intake Total 3948.85 / 3948.85 1325 / 1325 Balance 3948.85 / 3948.85 1325 / 1325 Lab / Micro Data Result Diagrams: 04/23/22 04:52 04/23/22 04:52 Labs: Laboratory Results - last 24 hr 04/22/22 14:00: WBC 12.7 H, RBC 5.02, Hgb 14.2, Hct 43.3, MCV 86.3, MCH 28.3, MCHC 32.8, RDW Std Deviation 49.6 H, RDW Coeff of Yudelka 15.9 H, Plt Count 339, MPV 13.1 H, Immature Gran % (Auto) 0.700, Neut % (Auto) 69.9, Lymph % (Auto) 23.1, Garrett % (Auto) 5.3, Eos % (Auto) 0.8, Baso % (Auto) 0.2, Absolute Neuts (auto) 8.9 H, Absolute Lymphs (auto) 2.94, Nucleated RBC % 0 04/22/22 14:00: Sodium 122 L, Potassium 4.1, Chloride 81 L, Carbon Dioxide 25.0, Anion Gap 16 H, BUN 41 H, Creatinine 2.03 H, Estim Creat Clear Calc 23.07, Est GFR (MDRD) Af Amer 32 L, Est GFR (MDRD) Non-Af 27 L, BUN/Creatinine Ratio 20.2 H, Glucose 750 H*, Calcium 9.9, Total Bilirubin 0.40, AST 14 L, ALT 21, Alkaline Phosphatase 145 H, Total Protein 7.7, Albumin 3.2, Globulin 4.5 H, Albumin/Globulin Ratio 0.7 L 04/22/22 14:00: Lactic Acid 3.4 H* 04/22/22 14:00: ESR 68 H 04/22/22 14:00: C-React Prot Ext Range < 2.90 04/22/22 14:00: Troponin I High Sens 4 04/22/22 14:00: Sodium 140, Potassium 4.1, Chloride 110 H, Carbon Dioxide 18.0 L, Anion Gap 12, BUN 8, Creatinine 0.92, Estim Creat Clear Calc 50.91, Est GFR (MDRD) Af Amer 80, Est GFR (MDRD) Non-Af 66, BUN/Creatinine Ratio 8.6 L, Glucose 83, Calcium 9.2, Magnesium 2.1 04/22/22 16:45: Urine Color Straw, Urine Clarity Clear, Urine pH 6.0, Ur Specific Haynes 1.010, Urine Protein Negative, Urine Glucose (UA) 1000 H, Urine Ketones Negative, Urine Occult Blood Negative, Urine Nitrite Negative, Urine Bilirubin Negative, Urine Urobilinogen Normal, Ur Leukocyte Esterase 100 H, Urine RBC 0 SEEN, Urine WBC 5-10 SEEN, Ur Squamous Epith Cells 5-10 SEEN, Urine Bacteria 1+, Urine Mucus 0 SEEN, Urine Yeast 1+ 04/22/22 17:36: POC Glucose 251 H 04/22/22 18:15: Lactic Acid 2.6 H* 04/22/22 21:19: POC Glucose 262 H 04/23/22 04:52: WBC 7.9, RBC 3.78 L, Hgb 10.7 L, Hct 33.0 L, MCV 87.3, MCH 28.3, MCHC 32.4, RDW Std Deviation 50.4 H, RDW Coeff of Yudelka 15.9 H, Plt Count 228, MPV 12.6 H, Immature Gran % (Auto) 0.400, Neut % (Auto) 57.6, Lymph % (Auto) 31.5, Garrett % (Auto) 7.8, Eos % (Auto) 2.4, Baso % (Auto) 0.3, Absolute Neuts (auto) 4.6, Absolute Lymphs (auto) 2.50, Nucleated RBC % 0 04/23/22 04:52: Sodium 138, Potassium 3.4 L, Chloride 108 H, Carbon Dioxide 22.0, Anion Gap 8, BUN 30 H, Creatinine 1.00, Estim Creat Clear Calc 46.84, Est GFR (MDRD) Af Amer 73, Est GFR (MDRD) Non-Af 61, BUN/Creatinine Ratio 30.0 H, Glucose 121 H, Calcium 7.9 L, Magnesium 1.7, Total Bilirubin 0.30, AST 11 L, ALT 16, Alkaline Phosphatase 93, Total Protein 5.3 L, Albumin 2.2 L, Globulin 3.1, Albumin/Globulin Ratio 0.7 L, TSH 3.23 04/23/22 04:52: Phosphorus 3.5 04/23/22 06:30: POC Glucose 77 Radiography Diagnostic Testing: Radiology Impression Chest X-Ray 04/22/22 15:10 IMPRESSION: No acute process of the chest Electronically Signed: Aiden Feldman MD at 15:27 EDT , Lumbar Spine CT 04/22/22 16:58 IMPRESSION: 1. L3-4: Discogenic endplate changes. Left L4 pedicle screw extends beyond the superior endplate of L4 and into the disc space of L3-4. Vacuum disc phenomenon or gas bubble visualized. Infectious process cannot be excluded. Moderate spinal stenosis. There is bilateral ligamentum flavum thickening. 2. L4-5: There is bilateral facet arthropathy. Loss of intervertebral disc height. There is endplate spondylosis of the vertebral body. Unremarkable central canal. Unremarkable intervertebral neuroforamina. Discogenic endplate changes. Fusion disc in place. 3. New since March 2022, there is a compression deformity of the superior endplate of T12. Electronically Signed: Elijah Jamil MD at 18:22 EDT , Rhythm Strip Rhythm Strip: Sinus Rhythm Rate: 60 Ectopy: PAC(s) Assessment & Plan Assessment/Plan (1) Acute hyponatremia: (2) Diabetes mellitus with hyperglycemia: (3) Orthostatic syncope: (4) DELGADO (acute kidney injury): (5) Hypotension: (6) Acute back pain: (7) Compression fracture of T12 vertebra: PLAN: Plan Assessment: Acute hypotension Leukocytosis Elevated sed rate Elevated anion gap Acute dehydration Lactic acidosis DM-2 with hyperglycemia T12 compression fracture Presyncope History of osteomyelitis of the lumbar spine L4-L5 Intra to below back pain/chronic pain Degenerative disc disease Hypertension Hyperlipidemia GERD COPD Tobacco abuse-ongoing Overweight Plan: -Thus far patient has been responding to IV fluids--> appears markedly dehydrated on admission -Continue aggressive fluids and reevaluate BMP -Hold HCTZ and lisinopril given renal function and hypotension -Hold metoprolol given hypotension -No extra IV pain medication for now with blood pressure issues--> continue home oxycodone -Patient was fired from pain management see previous documentation -Cultures pending--> doubt sepsis related hypotension however need to rule out infection with recent history -CRP is normal but sed rate is elevated -Check CT of the lumbar spine to rule out infectious process--> unfortunately this will have to be noncontrast given renal function -May need to repeat with contrast depending on results -Start vancomycin and cefepime -We will have patient evaluated by ID as they are familiar with her case -Hold antihypertensives -Continue home insulins -Sliding scale with Accu-Cheks before meals and at bedtime -Check hemoglobin A1c -Continue home for COPD/hyperlipidemia/GERD -Patient was evaluated at [facility] Main campus by spinal surgery for a second opinion on her chronic back issues
[2022-04-23] MEDS: Potassium Chloride Oral Tablet 20 MEQ 40 MEQ PO (08:55)
[2022-04-23 09:25] VITALS: BP 189/102; PULSE 83; RESP 18; TEMP 36.5; O2SAT 99
--- NOTE | 2022-04-23 09:53 | CON.PCM.ID_ITS ---
Assessment & Plan Assessment/Plan (1) Intractable back pain: PLAN: Ongoing falls, weakness, back pain. Had L4-5 fusion 09/[address] Medellin, persistent symptoms since then despite biopsy x2 and two course of iv abx, most recently vanc/cefepime, completed 03/28/22. No clear sign of active infection. Will stop abx. Numerous ED visits in past month and a half. Did have ucx with [facility] on 03/22/22. Would consider transfer for spine surg eval. New compression deformity seen on CT in T12. Will follow, thank you (2) Type 2 diabetes mellitus: QUALIFIERS: Diabetes mellitus [employer] insulin use: with group home use Diabetes mellitus complication status: with kidney complications Diabetes mellitus complication detail: with chronic kidney disease Chronic kidney disease stage: stage 2 (mild) Qualified Code(s): E11.22 - Type 2 diabetes mellitus with diabetic chronic kidney disease; N18.2 - Chronic kidney disease, stage 2 (mild); Z79.4 - [employer] (current) use of insulin HPI Consult Data Date of Consult: 04/23/22 HPI Narrative Reason for Consultation: weakness/fall HPI Narrative: MILY CHILDRESS, is a 56 F who presented to ED 03/22 with weakness, fall at home. Had L4-5 lumbar interbody fusion with insertion of intervertebral mechanical device with structural allograft fusion as well as L4 bilateral laminectomy decompression with bilateral nerve root, L4-5 posterior lateral fusion and ped icle screw fixation by Dr. Medellin on 09/09/21. Developed some clear drainage, outpt MRI showed possible osteo. Bcx / were neg. Admitted 12/27/21, needle biopsy done. Path was not done. Gram stain showed rare GPC but cxs neg, given 6 week course of empiric vanc. Readmitted 02/09/22 with severe back pain, leg weakness/falls. Abx were held, taken to OR 02/[address] Medellin for percutaneous L3 bone biopsy. Aerobic/anaerobic/fungal/AFB neg, path did not show osteo. Given 6 weeks empiric vanc/cefepime, completed 03/28/22. Did not have any improvement in symptoms with either course of abx. Back in ED 03/13, 03/19, 03/22, 04/16, 04/21, and 04/22 with back pain, falls, weakness. Has had one appt with [facility] for 2nd opinion re: her back. Admitted last night on vanc/cefepime. No fever, no dysuria, no abd pain. Is quitting smoking, so has been coughing more. Full ROS performed and neg except as noted above. [facility] Medical History Anxiety Arthritis Asthma Back pain Back pain Cardiology follow-up encounter Chronic neck and back pain COPD (chronic obstructive pulmonary disease) Coronary artery calcification seen on CAT scan CPAP (continuous positive airway pressure) dependence Depression Diabetes Dietary restriction Difficulty balancing Essential hypertension Gastric reflux High cholesterol History of arthritis History of echocardiogram History of edema History of pain when walking History of renal disease History of stomach ulcers History of stress test Hyperlipidemia Hypertension Injury of head and neck Insulin dependent diabetes mellitus Knee pain Lumbar stenosis Migraine headache Obesity Osteomyelitis Shortness of breath on exertion Shoulder pain Sleep apnea Smoker Spinal fusion failure Strain of muscle, fascia and tendon of pelvis, initial encounter Strain of right hip and thigh Strain of right inguinal region Strain of unspecified muscles, fascia and tendons at thigh level, right thigh, initial encounter Syncope Thyroid disease Type 2 diabetes mellitus Walker as ambulation aid Wears glasses Wears hearing aid Home Medications insulin glargine 100 unit/mL (3 mL) subcutaneous pen 42 unit subcut QHS DIABETES 11/03/20 [History Last Taken 12/25/21] albuterol sulfate 90 mcg/actuation aerosol inhaler 2 puff inhalation Q6H PRN SOB 06/14/21 [History Last Taken 12/25/21] atorvastatin 80 mg tablet 80 mg PO QHS CHOLESTEROL 06/14/21 [History Last Taken 02/21/22] budesonide-formoterol HFA 160 mcg-4.5 mcg/actuation aerosol inhaler (Symbicort) 2 puff inhalation BID ASTHMA 06/14/21 [History Last Taken 12/25/21] pantoprazole 40 mg tablet,delayed release 40 mg PO DAILY GERD 06/14/21 [History Last Taken 02/21/22] tizanidine 4 mg capsule 4 mg PO BID PRN Muscle Pain 06/14/21 [History Last Taken 12/18/21] amitriptyline 100 mg tablet 100 mg PO QHS sleep 11/27/21 [History Last Taken 12/25/21] ipratropium 0.5 mg-albuterol 3 mg (2.5 mg base)/3 mL nebulization soln 3 ml inhalation 4X/DAY PRN sob 11/27/21 [History Last Taken 11/25/21] loratadine 10 mg tablet 10 mg PO DAILY allergies 11/27/21 [History Last Taken 02/21/22] insulin lispro 100 unit/mL subcutaneous pen (Humalog KwikPen (U-100) Insulin) 8 unit subcut BID DM 12/26/21 [History Last Taken Unknown] acetaminophen 500 mg tablet 1,000 mg PO Q8H PRN Pain 02/22/22 [History Last Taken Unknown] citalopram 20 mg tablet 20 mg PO DAILY DEPRESSION 02/22/22 [History Last Taken Unknown] empagliflozin 10 mg tablet (Jardiance) 10 mg PO DAILY DM 02/22/22 [History Last Taken 02/21/22] hydrochlorothiazide 25 mg tablet 25 mg PO DAILY #30 tabs 02/24/22 [Rx Last Taken Unknown] lisinopril 40 mg tablet 40 mg PO DAILY #30 tabs 02/24/22 [Rx Last Taken Unknown] metoprolol tartrate 25 mg tablet 25 mg PO BID #60 tabs 02/24/22 [Rx Last Taken Unknown] oxycodone 5 mg tablet 5 mg PO Q6H PRN pain 3 days #10 tabs 04/21/22 [Rx Last Taken Unknown] Allergy/AdvReac Type Severity Reaction Status Date / Time duloxetine [From Cymbalta] Allergy Unknown Verified 04/22/22 13:20 pregabalin [From Lyrica] Allergy Unknown Verified 04/22/22 13:20 Penicillins AdvReac Mild leaves a Verified 04/22/22 13:20 bad taste in her mouth. NSAIDS (Non-Steroidal AdvReac Upset Verified 04/22/22 13:20 Anti-Inflamma Stomach Family History Father Cancer Unclear type. Mother Lung cancer Concurrent tobacco use history. Surgical History History of ankle surgery History of History of carpal tunnel release History of hysterectomy History of open reduction and internal fixation (ORIF) procedure History of partial thyroidectomy Social History household members: none Smoking Status: Current every day smoker tobacco type: cigarettes alcohol intake: never substance use type: does not use Physical Exam Const alert, oriented x3 and no apparent distress General Appearance: cooperative HEENT normocephalic and head/scalp atraumatic Eyes PERRL and EOMs intact bilaterally Neck supple and No nodes Resp normal air movement and clear to auscultation bilaterally Cardio regular rate and regular rhythm GI soft to palpation, non-tender and non-distended Extremity General Extremity: Negative for edema Skin no rashes or lesions noted Neuro CN's II-XII intact bilaterally Lab / Micro Data Attestation: I reviewed the patient's lab results. Result Diagrams: 04/23/22 04:52 04/23/22 04:52 Labs: Laboratory Results - last 24 hr 04/22/22 14:00: WBC 12.7 H, RBC 5.02, Hgb 14.2, Hct 43.3, MCV 86.3, MCH 28.3, MCHC 32.8, RDW Std Deviation 49.6 H, RDW Coeff of Yudelka 15.9 H, Plt Count 339, MPV 13.1 H, Immature Gran % (Auto) 0.700, Neut % (Auto) 69.9, Lymph % (Auto) 23.1, Collier % (Auto) 5.3, Eos % (Auto) 0.8, Baso % (Auto) 0.2, Absolute Neuts (auto) 8.9 H, Absolute Lymphs (auto) 2.94, Nucleated RBC % 0 04/22/22 14:00: Sodium 122 L, Potassium 4.1, Chloride 81 L, Carbon Dioxide 25.0, Anion Gap 16 H, BUN 41 H, Creatinine 2.03 H, Estim Creat Clear Calc 23.07, Est GFR (MDRD) Af Amer 32 L, Est GFR (MDRD) Non-Af 27 L, BUN/Creatinine Ratio 20.2 H , Glucose 750 H*, Calcium 9.9, Total Bilirubin 0.40, AST 14 L, ALT 21, Alkaline Phosphatase 145 H, Total Protein 7.7, Albumin 3.2, Globulin 4.5 H, Albumin/Globulin Ratio 0.7 L 04/22/22 14:00: Lactic Acid 3.4 H* 04/22/22 14:00: ESR 68 H 04/22/22 14:00: C-React Prot Ext Range < 2.90 04/22/22 14:00: Troponin I High Sens 4 04/22/22 14:00: Sodium 140, Potassium 4.1, Chloride 110 H, Carbon Dioxide 18.0 L , Anion Gap 12, BUN 8, Creatinine 0.92, Estim Creat Clear Calc 50.91, Est GFR (MDRD) Af Amer 80, Est GFR (MDRD) Non-Af 66, BUN/Creatinine Ratio 8.6 L, Glucose 83, Calcium 9.2, Magnesium 2.1 04/22/22 16:45: Urine Color Straw, Urine Clarity Clear, Urine pH 6.0, Ur Specific Milton 1.010, Urine Protein Negative, Urine Glucose (UA) 1000 H, Urine Ketones Negative, Urine Occult Blood Negative, Urine Nitrite Negative, Urine Bilirubin Negative, Urine Urobilinogen Normal, Ur Leukocyte Esterase 100 H, Urine RBC 0 SEEN, Urine WBC 5-10 SEEN, Ur Squamous Epith Cells 5-10 SEEN, Urine Bacteria 1+, Urine Mucus 0 SEEN, Urine Yeast 1+ 04/22/22 17:36: POC Glucose 251 H 04/22/22 18:15: Lactic Acid 2.6 H* 04/22/22 21:19: POC Glucose 262 H 04/23/22 04:52: WBC 7.9, RBC 3.78 L, Hgb 10.7 L, Hct 33.0 L, MCV 87.3, MCH 28.3, MCHC 32.4, RDW Std Deviation 50.4 H, RDW Coeff of Yudelka 15.9 H, Plt Count 228, MPV 12.6 H, Immature Gran % (Auto) 0.400, Neut % (Auto) 57.6, Lymph % (Auto) 31.5, Collier % (Auto) 7.8, Eos % (Auto) 2.4, Baso % (Auto) 0.3, Absolute Neuts (auto) 4.6, Absolute Lymphs (auto) 2.50, Nucleated RBC % 0 04/23/22 04:52: Sodium 138, Potassium 3.4 L, Chloride 108 H, Carbon Dioxide 22.0, Anion Gap 8, BUN 30 H, Creatinine 1.00, Estim Creat Clear Calc 46.84, Est GFR (MDRD) Af Amer 73, Est GFR (MDRD) Non-Af 61, BUN/Creatinine Ratio 30.0 H, Glucose 121 H, Calcium 7.9 L, Magnesium 1.7, Total Bilirubin 0.30, AST 11 L, ALT 16, Alkaline Phosphatase 93, Total Protein 5.3 L, Albumin 2.2 L, Globulin 3.1, Albumin/Globulin Ratio 0.7 L, TSH 3.23 04/23/22 04:52: Phosphorus 3.5 04/23/22 06:30: POC Glucose 77 Rhythm Strip Rhythm Strip: Sinus Rhythm Rate: 60 Ectopy: PAC(s) Radiology Impression Chest X-Ray 04/22/22 15:10 IMPRESSION: No acute process of the chest Electronically Signed: Aiden Feldman MD at 15:27 EDT , Lumbar Spine CT 04/22/22 16:58 IMPRESSION: 1. L3-4: Discogenic endplate changes. Left L4 pedicle screw extends beyond the superior endplate of L4 and into the disc space of L3-4. Vacuum disc phenomenon or gas bubble visualized. Infectious process cannot be excluded. Moderate spinal stenosis. There is bilateral ligamentum flavum thickening. 2. L4-5: There is bilateral facet arthropathy. Loss of intervertebral disc height. There is endplate spondylosis of the vertebral body. Unremarkable central canal. Unremarkable intervertebral neuroforamina. Discogenic endplate changes. Fusion disc in place. 3. New since March 2022, there is a compression deformity of the superior endplate of T12. Electronically Signed: Elijah Jamil MD at 18:22 EDT ,
[2022-04-23] MEDS: tiZANidine HCl 2 MG Tablet 4 MG PO (10:19)
--- NOTE | 2022-04-23 10:21 | CASEMGMT ---
According to the [facility] website, the following are in-network tertiary facilities: [facility], [facility], [facility], [place], [facility], [facility], [place], [facility], and . Morteza MARTIN CM
[2022-04-23] MEDS: Citalopram 20 MG Tablet PO (10:22)
[2022-04-23] MEDS: Loratadine 10 MG Tablet PO (10:22)
[2022-04-23] MEDS: Pantoprazole Sodium 40 MG Tablet PO (10:23)
[2022-04-23] MEDS: Glucerna Shake 120 ML LIQUID PO ×2 (10:25→13:51)
--- NOTE | 2022-04-23 10:55 | CASEMGMT ---
RN NABOR Face to Face with patient for initial transition planning/care coordination assessment. RN CM introduced self and role at [facility]. Patient lying in bed, alert and oriented. Patient willing to participate in assessment and is able to answer all questions appropriately. Care providers, pharmacy, and demographics verified. Patient wishes to discharge home, denies need for home health at this time and states she is not doing IV ATBs again at home. Patient states she has no further needs or concerns at this time. CM to follow for discharge planning needs that may arise. PCP: [facility] Specialists: [facility]; KELBY Cross Preferred Pharmacy: [facility] Insurance: [facility] Prescription Benefit: yes Living Will/HPOA: none LNOK: mother, daughter Living Arrangements: Patient lives alone in a first floor apartment with 2 steps and railing. Patient states she is independent at home. Transportation: public or [facility] DME/HHC: Patient states she has rollator, grab bars, and nebulizer at home. Patient states she smoke 1 ppd of cigarettes and has patches at home to quit just hasn't started, denies alcohol or other drug use. Patient has had [facility] in the past. Patient states she has previously been to [place]. Patient states she has a CM Marlen through [facility]. Disposition Plan: Patient to discharge home with family support and follow-up plans. Will monitor for additional needs at discharge. Eden LIN, RN, CM
[2022-04-23] MEDS: 0.9% Saline Lock 10 ML Syringe IV (12:14)
[2022-04-23] MEDS: Insulin Lispro 100 UNIT/ML INSULN.PEN SC (12:20)
[2022-04-23] MEDS: Acetaminophen 500 MG Tablet 1000 MG PO (12:20)
[2022-04-23 13:01] LABS: Bedside Glucose 174 mg/dL (74-106)
--- NOTE | 2022-04-23 13:30 | DCINST_ITS ---
Discharge Instructions Diet Discharge Diet: Low fat / Low cholesterol and 1800 Calorie Control Diet Activity Discharge Activity: Return to Normal Activity Dressing / Incision Call your doctor if you observe: Dizziness Follow Up Care Test Results: Test results from this visit will be discussed in further detail at your follow- up appointment, if applicable. Discharge Plan Admission Admit Date/Time: 04/22/22 16:47 Primary Reason for Your Visit: dizziness Attending Provider: Oni Hale Primary Care Provider: Gris Fofana NP Consulting Providers: Jez Cross ; Keily Smith Instructions Additional Instructions / Restrictions: It is important that you take all of your medications as directed every day. When you were admitted your blood sugar was very high and you are significantly dehydrated. Is important that you hydrate well throughout the day with water and adhere to your medication regimen. You need to follow-up with with neurosurgery at [facility] outpatient. Upon discharge call to get a follow-up appointment with the surgeon for further evaluation. Discharge Orders/Prescriptions Prescriptions: New citalopram 20 mg Tablet 40 mg PO DAILY 30 Days Qty: 60 0RF oxycodone 5 mg tablet 5 mg PO Q8H PRN (Reason: pain) 3 Days Qty: 9 0RF Continued atorvastatin 80 mg tablet 80 mg PO QHS budesonide-formoterol [Symbicort] 160-4.5 mcg/actuation HFA aerosol inhaler 2 puff inhalation BID albuterol sulfate 90 mcg/actuation HFA aerosol inhaler 2 puff inhalation Q6H PRN (Reason: SOB) pantoprazole 40 mg tablet,delayed release (DR/EC) 40 mg PO DAILY tizanidine 4 mg capsule 4 mg PO BID PRN (Reason: Muscle Pain) insulin glargine 100 unit/mL (3 mL) insulin pen 32 unit SC BREAKFAST ipratropium-albuterol 0.5 mg-3 mg(2.5 mg base)/3 mL solution for nebulization 3 ml inhalation 4X/DAY PRN (Reason: sob) amitriptyline 100 mg tablet 100 mg PO QHS Label Comments: take 1 tablet by oral route at bedtime per day loratadine 10 mg tablet 10 mg PO DAILY insulin lispro [Humalog KwikPen Insulin] 100 unit/mL insulin pen 8 unit subcut BID Protocol: 4. Sliding Scale Insulin High-Med Dosing Condition: 150-199 mg/dl = 2 units Condition: 200-259 mg/dl = 4 units Condition: 260-324 mg/dl = 6 units Condition: 325-374 mg/dl = 8 units Condition: 375-409 mg/dl = 10 units Condition: 410-449 mg/dl = 11 units Condition: Greater than 449 call physician Protocol Text: - Use for Total Daily Dose of Insulin 56-80 units - Patient who are insulin resistant or septic HIGH MEDIUM DOSING ALGORITHM Jardiance 10 mg tablet 10 mg PO DAILY Label Comments: TAKE 1 TABLET BY MOUTH EVERY MORNING acetaminophen 500 mg tablet 1,000 mg PO Q8H PRN (Reason: Pain) metoprolol tartrate 25 mg Tablet 25 mg PO BID Qty: 60 1RF oxycodone 5 mg tablet 5 mg PO Q6H PRN (Reason: pain) 3 Days Qty: 10 0RF lisinopril-hydrochlorothiazide 20-25 mg tablet 1 tab PO BID Label Comments: TAKE TWO (2) TABLETS BY MOUTH ONCE DAILY Discontinued citalopram 20 mg tablet 20 mg PO DAILY Referrals / Follow Up: Gris Fofana NP, DIRECTOR OF STAFF DEVELOPMENT-C [Primary Care Provider] -
[2022-04-23] MEDS: Lisinopril 20 MG Tablet PO (13:51)
[2022-04-23] MEDS: hydroCHLOROthiazide 25 MG Tablet PO (13:53)
--- NOTE | 2022-04-23 14:35 | DS.PCM_ITS ---
Documented by User: FEDERICO HummelC 04/23/22 14:42 Providers Date of Admission: 04/22/22 Date of Discharge: 04/23/22 Primary Care Physician: Gris Fofana NP Consultations 04/22/22 18:26 Consult: Infectious Disease Routine Consulting Provider: Jez Cross Reason for Consult: H/O spinal OM EMERGENT Consult: No MD Notified: Yes Date Notified: 04/22/22 Time Notified: 18:49 Method of Notification: Answering Service 04/23/22 10:14 Consult: Infectious Disease Routine Consulting Provider: Jez Cross Reason for Consult: possible osteomyelitis EMERGENT Consult: No MD Notified: Yes Date Notified: 04/23/22 Time Notified: 10:14 Method of Notification: Text Reason For Visit: NATALY/HYPOTENSION Diagnosis Discharge Diagnosis (1) Intractable back pain: Status: Acute Code(s): M54.9 - Dorsalgia, unspecified (2) Type 2 diabetes mellitus: Status: Chronic Code(s): E11.9 - Type 2 diabetes mellitus without complications Qualifiers: Chronic kidney disease stage: stage 2 (mild) Diabetes mellitus complication detail: with chronic kidney disease Diabetes mellitus complication status: with kidney complications Diabetes mellitus correction insulin use: with correction use Qualified Code(s): E11.22 - Type 2 diabetes mellitus with diabetic chronic kidney disease; N18.2 - Chronic kidney disease, stage 2 (mild); Z79.4 - terminal carman (current) use of insulin (3) Compression fracture of T12 vertebra: Status: Acute Code(s): S22.080A - Wedge compression fracture of T11-T12 vertebra, initial encounter for closed fracture (4) Orthostatic syncope: Status: Acute Code(s): I95.1 - Orthostatic hypotension (5) DELGADO (acute kidney injury): Status: Acute Code(s): N17.9 - Acute kidney failure, unspecified (6) Diabetes mellitus with hyperglycemia: Status: Acute Code(s): E11.65 - Type 2 diabetes mellitus with hyperglycemia (7) Acute back pain: Status: Acute Code(s): M54.9 - Dorsalgia, unspecified (8) Acute hyponatremia: Status: Acute Code(s): E87.1 - Hypo-osmolality and hyponatremia (9) Hypotension: Status: Acute Code(s): I95.9 - Hypotension, unspecified Plan 1. Presyncope secondary to orthostatic hypotension -Admit to PCU -Normal saline 2 L bolus then 150 mL/h -CBC, CMP, magnesium, phosphorus, TSH ordered for a.m. -PT and OT to eval and treat -Intake and output -Orthostatic vital signs x1 positive -Repeat BMP, magnesium pending 2. Diabetes mellitus type 2 with hyperglycemia -ACH S blood sugars with sliding scale insulin ordered -Continue Lantus -Hold Jardiance -Diabetic diet ordered 3. DELGADO secondary to dehydration -Creatinine elevated at 2.01, baseline 1.1 -Normal saline at 150 mL/h -CMP daily 4. Hyponatremia -Likely secondary to dehydration -CMP daily -normal saline at 150 mL/h 5. Rule out osteomyelitis -Patient initiated on vancomycin and aztreonam for possible osteomyelitis as patient has elevated white blood cell count and elevated lactic acid, CRP normal -CT lumbar spine ordered -Blood cultures pending 6. T12 compression fracture -Diagnosed during ER visit yesterday 04/21/2022 -Pain management regimen 7. Hypertension -Continue metoprolol, hold hydrochlorothiazide and lisinopril -Vital signs per protocol, currently patient hypotensive 8. History of hypothyroidism -TSH ordered for morning -Patient has history of partial thyroidectomy 9. Hyperlipidemia -Continue statin DVT prophylaxis-SCDs and subcu heparin This patient was seen by GIANCARLO Hummel under the supervision of Dr. Smith 31 minutes spent in clinical coordination of patient's plan of care. Medications at Discharge Home Medications insulin glargine 100 unit/mL (3 mL) subcutaneous pen 32 unit subcut BREAKFAST DIABETES 11/03/20 albuterol sulfate 90 mcg/actuation aerosol inhaler 2 puff inhalation Q6H PRN SOB 06/14/21 atorvastatin 80 mg tablet 80 mg PO QHS CHOLESTEROL 06/14/21 budesonide-formoterol HFA 160 mcg-4.5 mcg/actuation aerosol inhaler (Symbicort) 2 puff inhalation BID ASTHMA 06/14/21 pantoprazole 40 mg tablet,delayed release 40 mg PO DAILY GERD 06/14/21 tizanidine 4 mg capsule 4 mg PO BID PRN Muscle Pain 06/14/21 amitriptyline 100 mg tablet 100 mg PO QHS sleep 11/27/21 ipratropium 0.5 mg-albuterol 3 mg (2.5 mg base)/3 mL nebulization soln 3 ml i nhalation 4X/DAY PRN sob 11/27/21 loratadine 10 mg tablet 10 mg PO DAILY allergies 11/27/21 insulin lispro 100 unit/mL subcutaneous pen (Humalog KwikPen (U-100) Insulin) 8 unit subcut BID DM 12/26/21 acetaminophen 500 mg tablet 1,000 mg PO Q8H PRN Pain 02/22/22 empagliflozin 10 mg tablet (Jardiance) 10 mg PO DAILY DM 02/22/22 metoprolol tartrate 25 mg tablet 25 mg PO BID #60 tabs 02/24/22 oxycodone 5 mg tablet 5 mg PO Q6H PRN pain 3 days #10 tabs 04/21/22 citalopram 20 mg tablet 40 mg PO DAILY 30 days #60 tabs 04/23/22 lisinopril 20 mg-hydrochlorothiazide 25 mg tablet 1 tab PO BID Check with primary doctor 04/23/22 oxycodone 5 mg tablet 5 mg PO Q8H PRN pain 3 days #9 tabs 04/23/22 Hospital Course Operations None Procedures None Summary of Care Provided Minutes Spent on Discharge: 35 Hospital Course: Patient is a 56-year-old female who initially presented with dizziness and presyncope. Patient was found to be severely dehydrated despite the fact the patient states that she is eating and drinking appropriately as well as taking all of her medications appropriately. Patient also had a glucose of 750. Patient had a lumbar spine CT since this was scheduled outpatient and patient has a history of osteomyelitis if this continues to be a concern. Patient was also seen by infectious disease due to recent osteomyelitis and recent completion of antibiotics. Patient instructed that she will need to follow-up w [facility] neuro spine at [facility]. Patient demonstrates a lot of anxiety during admission regarding her current status and health difficulties. Discussed this at length with the patient and increased her citalopram. Physical Exam Const alert, oriented x3 and no apparent distress HEENT normocephalic and head/scalp atraumatic Eyes conjunctivae normal and no scleral icterus Neck no lymphadenopathy and supple General: trachea midline Resp normal respiratory effort, normal air movement and clear to auscultation bilaterally Cardio regular rate, regular rhythm, S1 normal heart sound, S2 normal heart sound and peripheral pulses 2+ throughout GI normal to inspection, nondistended, normoactive bowel sounds, soft to palpation and non-tender Extremity normal capillary refill and no clubbing, cyanosis or edema Skin skin turgor normal Neuro no focal motor deficits and no sensory deficits noted Psych affect normal Weight / BMI Weight Weight: 144 lb 6.444 oz Body Mass Index (BMI) 27.3 ABG / Lab / Microbiology Data Result Diagrams: 04/23/22 04:52 04/23/22 04:52 Laboratory: Laboratory Results - last 24 hr 04/22/22 14:00: Lactic Acid 3.4 H* 04/22/22 14:00: ESR 68 H 04/22/22 14:00: C-React Prot Ext Range < 2.90 04/22/22 14:00: Troponin I High Sens 4 04/22/22 14:00: Sodium 140, Potassium 4.1, Chloride 110 H, Carbon Dioxide 18.0 L , Anion Gap 12, BUN 8, Creatinine 0.92, Estim Creat Clear Calc 50.91, Est GFR (MDRD) Af Amer 80, Est GFR (MDRD) Non-Af 66, BUN/Creatinine Ratio 8.6 L, Glucose 83, Calcium 9.2, Magnesium 2.1 04/22/22 16:45: Urine Color Straw, Urine Clarity Clear, Urine pH 6.0, Ur Specific [place] 1.010, Urine Protein Negative, Urine Glucose (UA) 1000 H, Urine Ketones Negative, Urine Occult Blood Negative, Urine Nitrite Negative, Urine Bilirubin Negative, Urine Urobilinogen Normal, Ur Leukocyte Esterase 100 H, Urine RBC 0 SEEN, Urine WBC 5-10 SEEN, Ur Squamous Epith Cells 5-10 SEEN, Urine Bacteria 1+, Urine Mucus 0 SEEN, Urine Yeast 1+ 04/22/22 17:36: POC Glucose 251 H 04/22/22 18:15: Lactic Acid 2.6 H* 04/22/22 21:19: POC Glucose 262 H 04/23/22 04:52: WBC 7.9, RBC 3.78 L, Hgb 10.7 L, Hct 33.0 L, MCV 87.3, MCH 28.3, MCHC 32.4, RDW Std Deviation 50.4 H, RDW Coeff of Yudelka 15.9 H, Plt Count 228, MPV 12.6 H, Immature Gran % (Auto) 0.400, Neut % (Auto) 57.6, Lymph % (Auto) 31.5, [place] % (Auto) 7.8, Eos % (Auto) 2.4, Baso % (Auto) 0.3, Absolute Neuts (auto) 4.6, Absolute Lymphs (auto) 2.50, Nucleated RBC % 0 04/23/22 04:52: Sodium 138, Potassium 3.4 L, Chloride 108 H, Carbon Dioxide 22.0, Anion Gap 8, BUN 30 H, Creatinine 1.00, Estim Creat Clear Calc 46.84, Est GFR (MDRD) Af Amer 73, Est GFR (MDRD) Non-Af 61, BUN/Creatinine Ratio 30.0 H, Glucose 121 H, Calcium 7.9 L, Magnesium 1.7, Total Bilirubin 0.30, AST 11 L, ALT 16, Alkaline Phosphatase 93, Total Protein 5.3 L, Albumin 2.2 L, Globulin 3.1, Albumin/Globulin Ratio 0.7 L, TSH 3.23 04/23/22 04:52: Phosphorus 3.5 04/23/22 06:30: POC Glucose 77 04/23/22 12:13: POC Glucose 174 H Microbiology: Microbiology 04/23/22 12:45 Nasal Secretion SARS-CoV-2 Antigen (Rapid) - Final Radiography Diagnostic Testing: Radiology Impression Chest X-Ray 04/22/22 15:10 IMPRESSION: No acute process of the chest Electronically Signed: Aiden Feldman MD at 15:27 EDT Reading Location ID and State: [address] [place] [address] , Service support , Lumbar Spine CT 04/22/22 16:58 IMPRESSION: 1. L3-4: Discogenic endplate changes. Left L4 pedicle screw extends beyond the superior endplate of L4 and into the disc space of L3-4. Vacuum disc phenomenon or gas bubble visualized. Infectious process cannot be excluded. Moderate spinal stenosis. There is bilateral ligamentum flavum thickening. 2. L4-5: There is bilateral facet arthropathy. Loss of intervertebral disc height. There is endplate spondylosis of the vertebral body. Unremarkable central canal. Unremarkable intervertebral neuroforamina. Discogenic endplate changes. Fusion disc in place. 3. New since March 2022, there is a compression deformity of the superior endplate of T12. Electronically Signed: Elijah Jamil MD at 18:22 EDT , D/C Instructions Discharge Diet: Low fat / Low cholesterol and 1800 Calorie Control Diet Discharge Activity: Return to Normal Activity Call your doctor if you observe: Dizziness Meaningful Use Info Meaningful Use Diagnoses (Choose all that apply): None applicable Discharge Plan Admission Admit Date/Time: 04/22/22 16:47 Primary Reason for Your Visit: dizziness Attending Provider: Oni Hale Primary Care Provider: Gris Fofana NP Consulting Providers: Jez Cross ; Keily Smith Instructions Additional Instructions / Restrictions: It is important that you take all of your medications as directed every day. When you were admitted your blood sugar was very high and you are significantly dehydrated. Is important that you hydrate well throughout the day with water and adhere to your medication regimen. You need to follow-up with with neurosurgery at [facility] outpatient. Upon discharge call to get a follow-up appointment with the surgeon for further evaluation. Discharge Orders/Prescriptions Prescriptions: New citalopram 20 mg Tablet 40 mg PO DAILY 30 Days Qty: 60 0RF oxycodone 5 mg tablet 5 mg PO Q8H PRN (Reason: pain) 3 Days Qty: 9 0RF Continued atorvastatin 80 mg tablet 80 mg PO QHS budesonide-formoterol [Symbicort] 160-4.5 mcg/actuation HFA aerosol inhaler 2 puff inhalation BID albuterol sulfate 90 mcg/actuation HFA aerosol inhaler 2 puff inhalation Q6H PRN (Reason: SOB) pantoprazole 40 mg tablet,delayed release (DR/EC) 40 mg PO DAILY tizanidine 4 mg capsule 4 mg PO BID PRN (Reason: Muscle Pain) insulin glargine 100 unit/mL (3 mL) insulin pen 32 unit SC BREAKFAST ipratropium-albuterol 0.5 mg-3 mg(2.5 mg base)/3 mL solution for nebulization 3 ml inhalation 4X/DAY PRN (Reason: sob) amitriptyline 100 mg tablet 100 mg PO QHS Label Comments: take 1 tablet by oral route at bedtime per day loratadine 10 mg tablet 10 mg PO DAILY insulin lispro [Humalog KwikPen Insulin] 100 unit/mL insulin pen 8 unit subcut BID Protocol: 4. Sliding Scale Insulin High-Med Dosing Condition: 150-199 mg/dl = 2 units Condition: 200-259 mg/dl = 4 units Condition: 260-324 mg/dl = 6 units Condition: 325-374 mg/dl = 8 units Condition: 375-409 mg/dl = 10 units Condition: 410-449 mg/dl = 11 units Condition: Greater than 449 call physician Protocol Text: - Use for Total Daily Dose of Insulin 56-80 units - Patient who are insulin resistant or septic HIGH MEDIUM DOSING ALGORITHM Jardiance 10 mg tablet 10 mg PO DAILY Label Comments: TAKE 1 TABLET BY MOUTH EVERY MORNING acetaminophen 500 mg tablet 1,000 mg PO Q8H PRN (Reason: Pain) metoprolol tartrate 25 mg Tablet 25 mg PO BID Qty: 60 1RF oxycodone 5 mg tablet 5 mg PO Q6H PRN (Reason: pain) 3 Days Qty: 10 0RF lisinopril-hydrochlorothiazide 20-25 mg tablet 1 tab PO BID Label Comments: TAKE TWO (2) TABLETS BY MOUTH ONCE DAILY Discontinued citalopram 20 mg tablet 20 mg PO DAILY Referrals / Follow Up: Gris Fofana NP, [employer] MACHINE OPERATOR-C [Primary Care Provider] - Disposition Discharge Orders: Discharge Patient (Routine); Ordered 04/23/22 Ordered By: Meli Forrest Documented by User: Dr. Oni Hale DO 04/23/22 15:24 Providers Date of Admission: 04/22/22 Reason For Visit: NATALY/HYPOTENSION Diagnosis Discharge Diagnosis (1) Intractable back pain: Status: Acute Code(s): M54.9 - Dorsalgia, unspecified (2) Type 2 diabetes mellitus: Status: Chronic Code(s): E11.9 - Type 2 diabetes mellitus without complications Qualifiers: Chronic kidney disease stage: stage 2 (mild) Diabetes mellitus complication detail: with chronic kidney disease Diabetes mellitus complication status: with kidney complications Diabetes mellitus correction insulin use: with medical terminologist use Qualified Code(s): E11.22 - Type 2 diabetes mellitus with diabetic chronic kidney disease; N18.2 - Chronic kidney disease, stage 2 (mild); Z79.4 - terminal carman (current) use of insulin (3) Compression fracture of T12 vertebra: Status: Acute Code(s): S22.080A - Wedge compression fracture of T11-T12 vertebra, initial encounter for closed fracture (4) Orthostatic syncope: Status: Acute Code(s): I95.1 - Orthostatic hypotension (5) DELGADO (acute kidney injury): Status: Acute Code(s): N17.9 - Acute kidney failure, unspecified (6) Diabetes mellitus with hyperglycemia: Status: Acute Code(s): E11.65 - Type 2 diabetes mellitus with hyperglycemia (7) Acute back pain: Status: Acute Code(s): M54.9 - Dorsalgia, unspecified (8) Acute hyponatremia: Status: Acute Code(s): E87.1 - Hypo-osmolality and hyponatremia (9) Hypotension: Status: Acute Code(s): I95.9 - Hypotension, unspecified Medications at Discharge Home Medications insulin glargine 100 unit/mL (3 mL) subcutaneous pen 32 unit subcut BREAKFAST DIABETES 11/03/20 albuterol sulfate 90 mcg/actuation aerosol inhaler 2 puff inhalation Q6H PRN SOB 06/14/21 atorvastatin 80 mg tablet 80 mg PO QHS CHOLESTEROL 06/14/21 budesonide-formoterol HFA 160 mcg-4.5 mcg/actuation aerosol inhaler (Symbicort) 2 puff inhalation BID ASTHMA 06/14/21 pantoprazole 40 mg tablet,delayed release 40 mg PO DAILY GERD 06/14/21 tizanidine 4 mg capsule 4 mg PO BID PRN Muscle Pain 06/14/21 amitriptyline 100 mg tablet 100 mg PO QHS sleep 11/27/21 ipratropium 0.5 mg-albuterol 3 mg (2.5 mg base)/3 mL nebulization soln 3 ml inhalation 4X/DAY PRN sob 11/27/21 loratadine 10 mg tablet 10 mg PO DAILY allergies 11/27/21 insulin lispro 100 unit/mL subcutaneous pen (Humalog KwikPen (U-100) Insulin) 8 unit subcut BID DM 12/26/21 acetaminophen 500 mg tablet 1,000 mg PO Q8H PRN Pain 02/22/22 empagliflozin 10 mg tablet (Jardiance) 10 mg PO DAILY DM 02/22/22 metoprolol tartrate 25 mg tablet 25 mg PO BID #60 tabs 02/24/22 oxycodone 5 mg tablet 5 mg PO Q6H PRN pain 3 days #10 tabs 04/21/22 citalopram 20 mg tablet 40 mg PO DAILY 30 days #60 tabs 04/23/22 lisinopril 20 mg-hydrochlorothiazide 25 mg tablet 1 tab PO BID Check with primary doctor 04/23/22 oxycodone 5 mg tablet 5 mg PO Q8H PRN pain 3 days #9 tabs 04/23/22 Hospital Course Summary of Care Provided Hospital Course: Patient is a 56-year-old female who initially presented with dizziness and presyncope. Patient was found to be severely dehydrated despite the fact the patient states that she is eating and drinking appropriately as well as taking all of her medications appropriately. Patient also had a glucose of 750. Patient had a lumbar spine CT since this was scheduled outpatient and patient has a history of osteomyelitis if this continues to be a concern. Patient was also seen by infectious disease due to recent osteomyelitis and recent complet ion of antibiotics. Patient instructed that she will need to follow-up with neuro spine at [facility]. Patient demonstrates a lot of anxiety during admission regarding her current status and health difficulties. Discussed this at length with the patient and increased her citalopram. Patient seen and examined independently. Data and vitals reviewed. I agree with the above note by the nurse practitioner. 56-year-old female presents with dizziness and syncope. Patient was noted to have acute kidney injury and was clinically dehydrated. Patient blood sugar was greater than 700. Patient states that she was taking her insulin as she was prescribed. Initial concern was possible infection as is unclear initial presentation. The patient was started on prospective antibiotics. Patient was seen by infectious disease who discontinued antibiotics and recommended transfer given the patient's chronic back issues. Patient had been referred up to [facility] previously to concern for infected hardware in her back. Case was discussed with the surgeon at [facility] and given her relative stability and no overt concerns for new infection they did not feel that transfer would be necessary. Patient also had significant concerns for pain. I have taken care of the patient previously and it was noted at that time that when patient was Erb outside the room she would be comfortable but as soon as you introduced herself patient immediately began experiencing dramatic pain and became tearful. This was addressed with the patient and expressing that her anxiety is certainly complicating management of her pain and may make her feel that it is more severe that it may be. It is pressed upon the patient that she needs to perhaps take some deep breaths and that we would further try to optimize her medications. Patient takes Celexa and will increase from 20 to 40 mg daily. Additionally, patient stated that she is taking her insulin appropriately I have concerns about that statement given there blood sugar was 750 and she claims that she is drinking sugar-free Gatorade but she had told others that she was drinking low calorie Gatorade. Physical exam: Patient is no acute distress and afebrile. Heart rate regular rate and rhythm plus S1-S2 with a murmurs Rubs. Patient Is Very Anxious and Worked up and Tearful. Back Incision Is Intact. No Fluctuance. Patient Had Some Gilman Spinal Muscle Tenderness. Greater than 35 minutes spent at bedside discussing with the patient, reviewing data and documentation ABG / Lab / Microbiology Data Result Diagrams: 04/23/22 04:52 04/23/22 04:52 Discharge Plan Admission Admit Date/Time: 04/22/22 16:47 Primary Reason for Your Visit: dizziness Attending Provider: Oni Hale Primary Care Provider: Gris Fofana NP Consulting Providers: Jez Cross ; Keily Smith Instructions Additional Instructions / Restrictions: It is important that you take all of your medications as directed every day. When you were admitted your blood sugar was very high and you are significantly dehydrated. Is important that you hydrate well throughout the day with water and adhere to your medication regimen. You need to follow-up with with neurosurgery at [facility] outpatient. Upon discharge call to get a follow-up appointment with the surgeon for further evaluation. Discharge Orders/Prescriptions Prescriptions: New citalopram 20 mg Tablet 40 mg PO DAILY 30 Days Qty: 60 0RF oxycodone 5 mg tablet 5 mg PO Q8H PRN (Reason: pain) 3 Days Qty: 9 0RF Continued atorvastatin 80 mg tablet 80 mg PO QHS budesonide-formoterol [Symbicort] 160-4.5 mcg/actuation HFA aerosol inhaler 2 puff inhalation BID albuterol sulfate 90 mcg/actuation HFA aerosol inhaler 2 puff inhalation Q6H PRN (Reason: SOB) pantoprazole 40 mg tablet,delayed release (DR/EC) 40 mg PO DAILY tizanidine 4 mg capsule 4 mg PO BID PRN (Reason: Muscle Pain) insulin glargine 100 unit/mL (3 mL) insulin pen 32 unit SC BREAKFAST ipratropium-albuterol 0.5 mg-3 mg(2.5 mg base)/3 mL solution for nebulization 3 ml inhalation 4X/DAY PRN (Reason: sob) amitriptyline 100 mg tablet 100 mg PO QHS Label Comments: take 1 tablet by oral route at bedtime per day loratadine 10 mg tablet 10 mg PO DAILY insulin lispro [Humalog KwikPen Insulin] 100 unit/mL insulin pen 8 unit subcut BID Protocol: 4. Sliding Scale Insulin High-Med Dosing Condition: 150-199 mg/dl = 2 units Condition: 200-259 mg/dl = 4 units Condition: 260-324 mg/dl = 6 units Condition: 325-374 mg/dl = 8 units Condition: 375-409 mg/dl = 10 units Condition: 410-449 mg/dl = 11 units Condition: Greater than 449 call physician Protocol Text: - Use for Total Daily Dose of Insulin 56-80 units - Patient who are insulin resistant or septic HIGH MEDIUM DOSING ALGORITHM Jardiance 10 mg tablet 10 mg PO DAILY Label Comments: TAKE 1 TABLET BY MOUTH EVERY MORNING acetaminophen 500 mg tablet 1,000 mg PO Q8H PRN (Reason: Pain) metoprolol tartrate 25 mg Tablet 25 mg PO BID Qty: 60 1RF oxycodone 5 mg tablet 5 mg PO Q6H PRN (Reason: pain) 3 Days Qty: 10 0RF lisinopril-hydrochlorothiazide 20-25 mg tablet 1 tab PO BID Label Comments: TAKE TWO (2) TABLETS BY MOUTH ONCE DAILY Discontinued citalopram 20 mg tablet 20 mg PO DAILY Referrals / Follow Up: Gris Fofana NP, [employer]ING MACHINE OPERATOR-C [Primary Care Provider] - Disposition Discharge Orders: Discharge Patient (Routine); Ordered 04/23/22 Ordered By: Meli Forrest Charges/Coding Visit Charges Inpatient E&M: 31184 Disch Hosp
[2022-04-23 15:25] VITALS: BP 182/91; PULSE 82; RESP 18; TEMP 36.8; O2SAT 98
--- NOTE | 2022-04-23 15:32 | CASEMGMT ---
Addendum entered by Eden Nix 04/23/22 15:58: Pt ambulating around room in no distress. Morteza MARTIN CM Original Note: This RN CM to room to discuss d/c plan. Pt is requesting more pain meds but declines need for any further therapy at discharge. Pt states I just need to f/u with [facility] like they said.' Pt voices no further questions/concerns/needs. Morteza MARTIN CM
--- NOTE | 2022-04-23 16:08 | NURSING ---
1540; Pt requesting pain meds. This nurse was preparing pt for dc. Took x2 IV's out and attempted to take VS. PT refusing to have VS taken until pain med is given. Next pain med is due at 1618. She did allow VS to be taken but continued to raise her voice at nurse to give her her pain med. Explained to pt it is to early for pain med. Pt became angry stating she wanted to leave. She wanted her dc instructions and a wheel chair. This nurse brought dc instructions pt placed hand out and stated give them to me I can read. RELIGIOUS EDUCATION DIRECTOR assisted pt into wheel chair and pt left.
== END 2022-04-23 16:08 | disposition home or self-care (01) | DRG 204 ==
LOC: ED 15:01 → PCU 17:02
PROVIDERS: Emergency Medicine; Admitting Provider Internal Medicine; Emergency Provider Emergency Medicine; PCP Nurse Practitioner Primary Care
DX: I95.1 Orthostatic hypotension (principal); S22.080A Wedge compression fracture of T11-T12 vertebra, initial encounter for closed fracture; E87.2 Acidosis; E87.1 Hypo-osmolality and hyponatremia; N17.9 Acute kidney failure, unspecified; E11.22 Type 2 diabetes mellitus with diabetic chronic kidney disease; E11.69 Type 2 diabetes mellitus with other specified complication; Z79.4 Long term (current) use of insulin; E11.65 Type 2 diabetes mellitus with hyperglycemia; J44.9 Chronic obstructive pulmonary disease, unspecified; E11.29 Type 2 diabetes mellitus with other diabetic kidney complication; E78.00 Pure hypercholesterolemia, unspecified; M48.00 Spinal stenosis, site unspecified; I12.9 Hypertensive chronic kidney disease with stage 1 through stage 4 chronic kidney disease, or unspecified chronic kidney disease; E78.5 Hyperlipidemia, unspecified; E86.0 Dehydration; N18.2 Chronic kidney disease, stage 2 (mild); I25.10 Atherosclerotic heart disease of native coronary artery without angina pectoris; K21.9 Gastro-esophageal reflux disease without esophagitis; F41.9 Anxiety disorder, unspecified; E03.9 Hypothyroidism, unspecified; G89.29 Other chronic pain; Z79.1 Long term (current) use of non-steroidal anti-inflammatories (NSAID); E66.3 Overweight; Z79.51 Long term (current) use of inhaled steroids; Z68.27 Body mass index [BMI] 27.0-27.9, adult
CPT/HCPCS: 36415; 71045; 72100; 72131; 73564; 73630; 80048; 80053; 81001; 82962; 83605; 83735; 84100; 84443; 84484; 85025; 85652; 86140; 87040; 87426; 93005; 94640; 97162; 99284; 99285; 99406; J7030; J7040; J7050; A4216

== ENCOUNTER 2022-05-05 15:44 | Emergency (ER) | payer MEDICAID, SELFPAY ==
[2022-05-05 15:45] VITALS: BP 101/86; PULSE 92; RESP 22; TEMP 36.1; O2SAT 99; BMI 27.3
--- NOTE | 2022-05-05 16:04 | ED.VIS.BACK ---
HPI History of Present Illness Chief Complaint: Back Narrative Narrative: 56-year-old female presents with exacerbation of her chronic back pain. She states she had back surgery in September and has had problems ever since. She states she [facility] She is had multiple CAT scans and MRIs of her back and they state that her hardware is loose. She states she had a CAT scan a week and a half ago at the [facility] which also showed that her loosening of her hardware is worse. She denies any fevers or chills. No loss of bowel or bladder. No sciatic complaints or pain radiating down her leg. No saddle anesthesia. She states she is not currently taking any medication for her chronic back pain. [facility] Medical History Anxiety Arthritis Asthma Back pain Back pain Cardiology follow-up encounter Chronic neck and back pain COPD (chronic obstructive pulmonary disease) Coronary artery calcification seen on CAT scan CPAP (continuous positive airway pressure) dependence Depression Diabetes Dietary restriction Difficulty balancing Essential hypertension Gastric reflux High cholesterol History of arthritis History of echocardiogram History of edema History of pain when walking History of renal disease History of stomach ulcers History of stress test Hyperlipidemia Hypertension Injury of head and neck Insulin dependent diabetes mellitus Knee pain Lumbar stenosis Migraine headache Obesity Osteomyelitis Shortness of breath on exertion Shoulder pain Sleep apnea Smoker Spinal fusion failure Strain of muscle, fascia and tendon of pelvis, initial encounter Strain of right hip and thigh Strain of right inguinal region Strain of unspecified muscles, fascia and tendons at thigh level, right thigh, initial encounter Syncope Thyroid disease Type 2 diabetes mellitus Walker as ambulation aid Wears glasses Wears hearing aid Home Medications insulin glargine 100 unit/mL (3 mL) subcutaneous pen 32 unit subcut BREAKFAST DIABETES 11/03/20 [History Last Taken 12/25/21] albuterol sulfate 90 mcg/actuation aerosol inhaler 2 puff inhalation Q6H PRN SOB 06/14/21 [History Last Taken 12/25/21] atorvastatin 80 mg tablet 80 mg PO QHS CHOLESTEROL 06/14/21 [History Last Taken 02/21/22] budesonide-formoterol HFA 160 mcg-4.5 mcg/actuation aerosol inhaler (Symbicort) 2 puff inhalation BID ASTHMA 06/14/21 [History Last Taken 12/25/21] pantoprazole 40 mg tablet,delayed release 40 mg PO DAILY GERD 06/14/21 [History Last Taken 02/21/22] tizanidine 4 mg capsule 4 mg PO BID PRN Muscle Pain 06/14/21 [History Last Taken 12/18/21] amitriptyline 100 mg tablet 100 mg PO QHS sleep 11/27/21 [History Last Taken 12/25/21] ipratropium 0.5 mg-albuterol 3 mg (2.5 mg base)/3 mL nebulization soln 3 ml inhalation 4X/DAY PRN sob 11/27/21 [History Last Taken 11/25/21] loratadine 10 mg tablet 10 mg PO DAILY allergies 11/27/21 [History Last Taken 02/21/22] insulin lispro 100 unit/mL subcutaneous pen (Humalog KwikPen (U-100) Insulin) 8 unit subcut BID DM 12/26/21 [History Last Taken Unknown] acetaminophen 500 mg tablet 1,000 mg PO Q8H PRN Pain 02/22/22 [History Last Taken Unknown] empagliflozin 10 mg tablet (Jardiance) 10 mg PO DAILY DM 02/22/22 [History Last Taken 02/21/22] metoprolol tartrate 25 mg tablet 25 mg PO BID #60 tabs 02/24/22 [Rx Last Taken Unknown] oxycodone 5 mg tablet 5 mg PO Q6H PRN pain 3 days #10 tabs 04/21/22 [Rx Last Taken Unknown] citalopram 20 mg tablet 40 mg PO DAILY 30 days #60 tabs 04/23/22 [Rx Last Taken Unknown] lisinopril 20 mg-hydrochlorothiazide 25 mg tablet 1 tab PO BID Check with primary doctor 04/23/22 [History Last Taken Unknown] oxycodone 5 mg tablet 5 mg PO Q8H PRN pain 3 days #9 tabs 04/23/22 [Rx Last Taken Unknown] Allergy/AdvReac Type Severity Reaction Status Date / Time duloxetine [From Cymbalta] Allergy Unknown Verified 05/05/22 15:44 pregabalin [From Lyrica] Allergy Unknown Verified 05/05/22 15:44 Penicillins AdvReac Mild leaves a Verified 05/05/22 15:44 bad taste in her mouth. NSAIDS (Non-Steroidal AdvReac Upset Verified 05/05/22 15:44 Anti-Inflamma Stomach Family History Father Cancer Unclear type. Mother Lung cancer Concurrent tobacco use history. Surgical History History of ankle surgery History of History of carpal tunnel release History of hysterectomy History of open reduction and internal fixation (ORIF) procedure History of partial thyroidectomy Social History household members: none Smoking Status: Current every day smoker tobacco type: cigarettes alcohol intake: never substance use type: does not use ROS ROS ED ROS Narrative Constitutional: No fever, no chills. HEENT: No sore throat. No neck pain. No loss of vision. No rhinorrhea. Cardiovascular: No chest pain. No palpitations. No pedal edema. Respiratory: No cough, no shortness of breath. Abdominal: No abdominal pain. No nausea. No vomiting. Genitourinary: No dysuria. No hematuria. Musculoskeletal: No myalgias. No arthralgias. Positive lumbar/low back pain worse with movement. Neurologic: No headaches. No dizziness. No lightheadedness. No loss of bowel or bladder. No saddle anesthesia. No radiation of pain down the leg. Skin: No rash. No change in color. Psychiatric: No depression. No anxiety. EXAM Physical Exam Narrative Exam Narrative: Afebrile. Vital signs noted. HEENT: Normocephalic. Atraumatic. PERRL, EOMI. Neck soft and supple. No point tenderness or step off. Cardiovascular: Regular rate and rhythm. No murmurs, rubs, or gallops appreciated. Respiratory: No tachypnea. Lungs clear to auscultation bilaterally. Gastrointestinal: Abdomen soft, nontender, with normoactive bowel sounds. No rebound or guarding. Neurological: Awake. Alert. Nonfocal, nonlateralizing. DTRs in the patella equal and symmetric. Skin: No rash. Normal color. No pallor. Well-healed scar in lumbar area without erythema or fluctuance. Musculoskeletal: No pedal edema. Full range of motion extremities. Const Vital Signs: 05/05/22 15:45 Temperature 97 F L Temperature Source Temporal Pulse Rate 92 Respiratory Rate 22 H Blood Pressure 101/86 H Blood Pressure Mean 91 Pulse Ox 99 Oxygen Delivery Method Room Air MDM MDM MDM Narrative Medical decision making narrative: Patient has had extensive work-up and imaging of her low back. I do not feel that any imaging is indicated currently. I reviewed her prescription drug monitoring report which does show that she recently received oxycodone 10 mg for 7 days by her primary care provider the nurse practitioner, and that she is currently taking gabapentin. Her oxycodone 10 mg was filled on April 26, meaning she most likely ran out 2 days ago. She states that the gabapentin is for her diabetic neuropathy. She states she has muscle relaxers at home. At this point in time, she was told that she would not receive intramuscular injections for her chronic pain. She was given 1 oxycodone 10 mg tablet and told to follow-up with her primary care provider and her back specialist. I feel she be discharged safely home with follow-up. Return instructions were reviewed. Disposition is discharged home in stable condition. Discharge Plan Triage Chief Complaint: Back ED Provider: Song Mercedes Dx/Rx/DC Orders Clinical Impression: Chronic back pain, Has run out of medications Instructions: ED Pain Management: Chronic Prescriptions: No Action atorvastatin 80 mg tablet 80 mg PO QHS budesonide-formoterol [Symbicort] 160-4.5 mcg/actuation HFA aerosol inhaler 2 puff inhalation BID albuterol sulfate 90 mcg/actuation HFA aerosol inhaler 2 puff inhalation Q6H PRN (Reason: SOB) pantoprazole 40 mg tablet,delayed release (DR/EC) 40 mg PO DAILY tizanidine 4 mg capsule 4 mg PO BID PRN (Reason: Muscle Pain) insulin glargine 100 unit/mL (3 mL) insulin pen 32 unit SC BREAKFAST ipratropium-albuterol 0.5 mg-3 mg(2.5 mg base)/3 mL solution for nebulization 3 ml inhalation 4X/DAY PRN (Reason: sob) amitriptyline 100 mg tablet 100 mg PO QHS Label Comments: take 1 tablet by oral route at bedtime per day loratadine 10 mg tablet 10 mg PO DAILY insulin lispro [Humalog KwikPen Insulin] 100 unit/mL insulin pen 8 unit subcut BID Protocol: 4. Sliding Scale Insulin High-Med Dosing Condition: 150-199 mg/dl = 2 units Condition: 200-259 mg/dl = 4 units Condition: 260-324 mg/dl = 6 units Condition: 325-374 mg/dl = 8 units Condition: 375-409 mg/dl = 10 units Condition: 410-449 mg/dl = 11 units Condition: Greater than 449 call physician Protocol Text: - Use for Total Daily Dose of Insulin 56-80 units - Patient who are insulin resistant or septic HIGH MEDIUM DOSING ALGORITHM Jardiance 10 mg tablet 10 mg PO DAILY Label Comments: TAKE 1 TABLET BY MOUTH EVERY MORNING acetaminophen 500 mg tablet 1,000 mg PO Q8H PRN (Reason: Pain) metoprolol tartrate 25 mg Tablet 25 mg PO BID Qty: 60 1RF oxycodone 5 mg tablet 5 mg PO Q6H PRN (Reason: pain) 3 Days Qty: 10 0RF lisinopril-hydrochlorothiazide 20-25 mg tablet 1 tab PO BID Label Comments: TAKE TWO (2) TABLETS BY MOUTH ONCE DAILY citalopram 20 mg Tablet 40 mg PO DAILY 30 Days Qty: 60 0RF oxycodone 5 mg tablet 5 mg PO Q8H PRN (Reason: pain) 3 Days Qty: 9 0RF Primary Care Provider: Girs Fofana NP Referrals: Gris Fofana NP, [employer] C[employer]INE-[employer] [Primary Care Provider] - 1 Day Disposition Disposition: Home, Self Care
[2022-05-05] MEDS: oxyCODONE 5 MG Tablet 10 MG PO (16:20)
== END 2022-05-05 16:37 | disposition home or self-care (01) ==
LOC: ED 16:06
PROVIDERS: Emergency Provider Emergency Medicine; PCP Nurse Practitioner Primary Care; Visit Provider Emergency Medicine
DX: M54.9 Dorsalgia, unspecified (principal); J44.9 Chronic obstructive pulmonary disease, unspecified; E11.40 Type 2 diabetes mellitus with diabetic neuropathy, unspecified; Z79.4 Long term (current) use of insulin; G89.29 Other chronic pain; I10 Essential (primary) hypertension; E78.00 Pure hypercholesterolemia, unspecified; I25.10 Atherosclerotic heart disease of native coronary artery without angina pectoris; E78.5 Hyperlipidemia, unspecified

== ENCOUNTER 2022-05-05 19:32 | Emergency (ER) | payer MEDICAID, SELFPAY ==
[2022-05-05 19:33] VITALS: BP 65/26; PULSE 79; RESP 14; TEMP 35.9; O2SAT 99; BMI 28.3
--- NOTE | 2022-05-05 19:36 | ED.RN ---
PT 82% RA. 4LNC APPLIED
[2022-05-05 19:38] VITALS: O2SAT 98
--- NOTE | 2022-05-05 19:46 | EKG12_ITS ---
Test Reason : DYSRHYTHMIA Blood Pressure : / mmHG Vent. Rate : 074 BPM Atrial Rate : 074 BPM P-R Int : 192 ms QRS Dur : 086 ms QT Int : 420 ms P-R-T Axes : 038 -25 012 degrees QTc Int : 466 ms Normal sinus rhythm Inferior infarct (cited on or before 22-MAR-2022),cannot be excluded Abnormal ECG Confirmed by TAVON CRABTREE, EPI ([id number]), editor department STEFFI JAVED ([id number]) on 05/07/2022 6:19:00 AM Referred By: [place] Confirmed By:EPI MONTES DE OCA MD
--- NOTE | 2022-05-05 19:48 | EX.ED.DYSGE1 ---
HPI History of Present Illness Chief Complaint: Shortness of Breath [facility] Medical History Anxiety Arthritis Asthma Back pain Back pain Cardiology follow-up encounter Chronic neck and back pain COPD (chronic obstructive pulmonary disease) Coronary artery calcification seen on CAT scan CPAP (continuous positive airway pressure) dependence Depression Diabetes Dietary restriction Difficulty balancing Essential hypertension Gastric reflux High cholesterol History of arthritis History of echocardiogram History of edema History of pain when walking History of renal disease History of stomach ulcers History of stress test Hyperlipidemia Hypertension Injury of head and neck Insulin dependent diabetes mellitus Knee pain Lumbar stenosis Migraine headache Obesity Osteomyelitis Shortness of breath on exertion Shoulder pain Sleep apnea Smoker Spinal fusion failure Strain of muscle, fascia and tendon of pelvis, initial encounter Strain of right hip and thigh Strain of right inguinal region Strain of unspecified muscles, fascia and tendons at thigh level, right thigh, initial encounter Syncope Thyroid disease Type 2 diabetes mellitus Walker as ambulation aid Wears glasses Wears hearing aid Home Medications insulin glargine 100 unit/mL (3 mL) subcutaneous pen 32 unit subcut BREAKFAST DIABETES 11/03/20 [History Last Taken 12/25/21] albuterol sulfate 90 mcg/actuation aerosol inhaler 2 puff inhalation Q6H PRN SOB 06/14/21 [History Last Taken 12/25/21] atorvastatin 80 mg tablet 80 mg PO QHS CHOLESTEROL 06/14/21 [History Last Taken 02/21/22] budesonide-formoterol HFA 160 mcg-4.5 mcg/actuation aerosol inhaler (Symbicort) 2 puff inhalation BID ASTHMA 06/14/21 [History Last Taken 12/25/21] pantoprazole 40 mg tablet,delayed release 40 mg PO DAILY GERD 06/14/21 [History Last Taken 02/21/22] tizanidine 4 mg capsule 4 mg PO BID PRN Muscle Pain 06/14/21 [History Last Taken 12/18/21] amitriptyline 100 mg tablet 100 mg PO QHS sleep 11/27/21 [History Last Taken 12/25/21] ipratropium 0.5 mg-albuterol 3 mg (2.5 mg base)/3 mL nebulization soln 3 ml inhalation 4X/DAY PRN sob 11/27/21 [History Last Taken 11/25/21] loratadine 10 mg tablet 10 mg PO DAILY allergies 11/27/21 [History Last Taken 02/21/22] insulin lispro 100 unit/mL subcutaneous pen (Humalog KwikPen (U-100) Insulin) 8 unit subcut BID DM 12/26/21 [History Last Taken Unknown] acetaminophen 500 mg tablet 1,000 mg PO Q8H PRN Pain 02/22/22 [History Last Taken Unknown] empagliflozin 10 mg tablet (Jardiance) 10 mg PO DAILY DM 02/22/22 [History Last Taken 02/21/22] metoprolol tartrate 25 mg tablet 25 mg PO BID #60 tabs 02/24/22 [Rx Last Taken Unknown] oxycodone 5 mg tablet 5 mg PO Q6H PRN pain 3 days #10 tabs 04/21/22 [Rx Last Taken Unknown] citalopram 20 mg tablet 40 mg PO DAILY 30 days #60 tabs 04/23/22 [Rx Last Taken Unknown] lisinopril 20 mg-hydrochlorothiazide 25 mg tablet 1 tab PO BID Check with primary doctor 04/23/22 [History Last Taken Unknown] oxycodone 5 mg tablet 5 mg PO Q8H PRN pain 3 days #9 tabs 04/23/22 [Rx Last Taken Unknown] Allergy/AdvReac Type Severity Reaction Status Date / Time duloxetine [From Cymbalta] Allergy Unknown Verified 05/05/22 15:44 pregabalin [From Lyrica] Allergy Unknown Verified 05/05/22 15:44 Penicillins AdvReac Mild leaves a Verified 05/05/22 15:44 bad taste in her mouth. NSAIDS (Non-Steroidal AdvReac Upset Verified 05/05/22 15:44 Anti-Inflamma Stomach Family History Father Cancer Unclear type. Mother Lung cancer Concurrent tobacco use history. Surgical History History of ankle surgery History of History of carpal tunnel release History of hysterectomy History of open reduction and internal fixation (ORIF) procedure History of partial thyroidectomy Social History household members: none Smoking Status: Current every day smoker tobacco type: cigarettes alcohol intake: never substance use type: does not use ROS ROS ED Constitutional Constitutional ED: Denies chills, fever(s) or subjective Eyes Eyes: Denies change in vision ENT ENT ED: Denies rhinorrhea or sore throat Cardiovascular Cardiovascular: Denies chest pain, palpitations or racing heartbeat Respiratory/Chest Respiratory/Chest: Reports other Details: Patient states she has COPD and always has a little breathing problems but it does not feel different today than normal to her. ; Denies cough or dyspnea Gastrointestinal Gastrointestinal: Denies abdominal pain, diarrhea, nausea or vomiting Genitourinary Genitourinary ED: Denies dysuria, hematuria or urinary frequency Musculoskeletal Musculoskeletal: Reports back pain and other Details: Patient always has lower back pain. She has loosening of components from prior surgery. But that is not different or new today. Integumentary Denies rash Neurologic Neurologic: Reports other Details: Patient has generalized weakness with standing but no focal weakness ; Denies headache(s) or paresthesias Endocrine Endocrinology: Denies polydipsia or polyuria Hematologic/Lymphatic Hematologic/Lymphatic: Denies easy bleeding or easy bruising Allergic/Immunologic Allergic/Immunologic ED: Denies urticaria EXAM Physical Exam Const Vital Signs: 05/05/22 19:33 05/05/22 19:38 05/05/22 20:08 Temperature 96.7 F L Temperature Source Temporal Pulse Rate 79 76 Respiratory Rate 14 18 Respiratory Effort Short of Breath Respiratory Depth Shallow Respiratory Pattern Normal Normal Blood Pressure 65/26 L Blood Pressure Mean 39 Pulse Ox 99 Oxygen Delivery Method Room Air Nasal Cannula Oxygen Flow Rate (L/min) 4 05/05/22 20:08 05/05/22 22:34 05/05/22 23:24 Temperature Temperature Source Pulse Rate 93 87 Respiratory Rate 17 20 H Respiratory Effort Normal Short of Breath Respiratory Depth Normal Respiratory Pattern Normal Blood Pressure 97/75 107/65 Blood Pressure Mean 82 79 Pulse Ox 96 95 97 Oxygen Delivery Method Room Air Room Air Oxygen Flow Rate (L/min) 05/05/22 23:41 05/06/22 00:46 Temperature Temperature Source Pulse Rate 86 94 Respiratory Rate 17 16 Respiratory Effort Respiratory Depth Respiratory Pattern Blood Pressure 118/65 140/97 H Blood Pressure Mean 82 Pulse Ox 98 94 Oxygen Delivery Method Room Air Oxygen Flow Rate (L/min) Positive well nourished and well developed Constitutional Narrative: Patient awake alert and appropriate. She does not look pale. She is not diaphoretic. She is nontoxic. General Appearance ED: well developed and NAD HEENT Reports dry mucous membranes Mouth ED: Yes dry mucous membranes Mouth: dry mucous membranes Eyes General Eye ED: Negative for pale conjunctiva or scleral icterus Neck supple and no JVD Chest Wall inspection of chest normal Resp normal respiratory effort and clear to auscultation bilaterally Resp Narrative: May be slight prolonged expiratory phase but no notable wheeze. No rales or rhonchi. Auscultation: Negative for rales, rhonchi or wheezes Cardio regular rate and regular rhythm GI normal to inspection, nondistended, normoactive bowel sounds, non-tender and non-distended Palpation: soft Back/Spine no CVA tenderness Extremity normal to inspection General Extremety ED: Negative for edema or tenderness General Extremity: Negative for edema Neuro oriented x3 Psych mental status grossly normal Attitude: No agitated Mood & Affect: Negative for depressed, anxious or tearful Skin no rashes or lesions noted MDM MDM MDM Narrative Medical decision making narrative: Patient has minimal elevation white count. No elevation in the creatinine again. Her sugar is also up at 370. Troponins negative. BNP is not markedly elevated. Lactate was. We gave her some fluids here. She does feel better. She has had multiple blood pressures over 115 systolic. Her oxygen level is 97 to 90% on room air showing no hypoxia. I think the low 80% from EMS was likely due to the low blood pressure not picking up a good reading. Patient has had this is a recurrent problem. I now talked her about what she eats and drinks. I find out that about the only liquid she drinks is tea. This certainly can dehydrate more than and hydrates. I have encouraged her to eat regular healthy foods and water. She also gets vertigo. She states every time she turns her head especially to the left she gets dizzy. This has been chronic and unchanged for over 2-1/2 years. No one has ever given her anything for this. She has gotten used to it. My plan is to get her up and walk around. If she is feeling well and her blood pressure is still good I think we can get her home with a change in activity and diet and hopefully we would do much better. Patient did get up. She went to the bathroom. She is feeling better. She is eating and drinking. She states she has had this happen over and over again. As long as she feels okay she would like to go home. I think this is a reasonable option. She has been rehydrated. Her blood pressure is better. She has gotten up and walked. She is eating and drinking. I think her symptoms come from drinking almost only tea as a liquid. We discussed stopping this. We also discussed holding her lisinopril unless her blood pressure is a bit elevated over 140. Patient's blood pressure is now 139. She has been eating and drinking. A lactate was sent off but I expect this to come down. She is complaining of some back pain. She takes oxycodone for this 3-4 times a day. We will give her that here. She has follow-up up at [facility]. She has known loosening of components. They have been following this with MRIs. She states they are considering doing surgery. She had osteomyelitis before. But she has not been having fevers or chills. The pain is really the same she has been dealing with for some time. Lab Data Attestation: I reviewed the patient's lab results. Labs: Laboratory Results - last 24 hr 05/05/22 05/05/22 05/05/22 19:24 19:24 19:24 WBC 13.5 H RBC 4.95 Hgb 14.0 Hct 43.8 MCV 88.5 MCH 28.3 MCHC 32.0 RDW Std Deviation 50.5 H RDW Coeff of Yudelka 15.6 H Plt Count 387 MPV 11.2 Immature Gran % (Auto) 1.000 H Neut % (Auto) 67.5 Lymph % (Auto) 24.0 [place] % (Auto) 6.5 Eos % (Auto) 0.8 Baso % (Auto) 0.2 Absolute Neuts (auto) 9.1 H Absolute Lymphs (auto) 3.25 Nucleated RBC % 0 Sodium 129 L Potassium 4.3 Chloride 94 L Carbon Dioxide 24.0 Anion Gap 11 BUN 21 H Creatinine 1.56 H Estim Creat Clear Calc 30.02 Est GFR (MDRD) Af Amer 44 L Est GFR (MDRD) Non-Af 36 L BUN/Creatinine Ratio 13.5 Glucose 373 H Lactic Acid Calcium 10.6 H Troponin I High Sens 17 B-Natriuretic Peptide 126.6 H 05/05/22 05/06/22 19:54 00:01 WBC RBC Hgb Hct MCV MCH MCHC RDW Std Deviation RDW Coeff of Yudelka Plt Count MPV Immature Gran % (Auto) Neut % (Auto) Lymph % (Auto) [place] % (Auto) Eos % (Auto) Baso % (Auto) Absolute Neuts (auto) Absolute Lymphs (auto) Nucleated RBC % Sodium Potassium Chloride Carbon Dioxide Anion Gap BUN Creatinine Estim Creat Clear Calc Est GFR (MDRD) Af Amer Est GFR (MDRD) Non-Af BUN/Creatinine Ratio Glucose Lactic Acid 2.5 H* 1.6 Calcium Troponin I High Sens B-Natriuretic Peptide Radiography Diagnostic Testing: Clinical Impression(s) from Imaging Studies Chest X-Ray 05/05/22 20:00 IMPRESSION: Normal x-ray examination of the chest. Electronically Signed: Jeremiah Lau MD at 20:13 EDT , EKG Initial EKG: Comments: EKG done for hypertension read by me showed normal sinus rhythm with a rate of 74. No ectopy. No acute infarct or ischemia noted. AR interval QRS duration are normal. QTc is high normal at 466 ms. Discharge Plan Triage Chief Complaint: Shortness of Breath ED Provider: Godfrey White Dx/Rx/DC Orders Clinical Impression: DELGADO (acute kidney injury), Dehydration, Chronic vertigo Instructions: ED Dehydration (Adult) Prescriptions: No Action atorvastatin 80 mg tablet 80 mg PO QHS budesonide-formoterol [Symbicort] 160-4.5 mcg/actuation HFA aerosol inhaler 2 puff inhalation BID albuterol sulfate 90 mcg/actuation HFA aerosol inhaler 2 puff inhalation Q6H PRN (Reason: SOB) pantoprazole 40 mg tablet,delayed release (DR/EC) 40 mg PO DAILY tizanidine 4 mg capsule 4 mg PO BID PRN (Reason: Muscle Pain) insulin glargine 100 unit/mL (3 mL) insulin pen 32 unit SC BREAKFAST ipratropium-albuterol 0.5 mg-3 mg(2.5 mg base)/3 mL solution for nebulization 3 ml inhalation 4X/DAY PRN (Reason: sob) amitriptyline 100 mg tablet 100 mg PO QHS Label Comments: take 1 tablet by oral route at bedtime per day loratadine 10 mg tablet 10 mg PO DAILY insulin lispro [Humalog KwikPen Insulin] 100 unit/mL insulin pen 8 unit subcut BID Protocol: 4. Sliding Scale Insulin High-Med Dosing Condition: 150-199 mg/dl = 2 units Condition: 200-259 mg/dl = 4 units Condition: 260-324 mg/dl = 6 units Condition: 325-374 mg/dl = 8 units Condition: 375-409 mg/dl = 10 units Condition: 410-449 mg/dl = 11 units Condition: Greater than 449 call physician Protocol Text: - Use for Total Daily Dose of Insulin 56-80 units - Patient who are insulin resistant or septic HIGH MEDIUM DOSING ALGORITHM Jardiance 10 mg tablet 10 mg PO DAILY Label Comments: TAKE 1 TABLET BY MOUTH EVERY MORNING acetaminophen 500 mg tablet 1,000 mg PO Q8H PRN (Reason: Pain) metoprolol tartrate 25 mg Tablet 25 mg PO BID Qty: 60 1RF oxycodone 5 mg tablet 5 mg PO Q6H PRN (Reason: pain) 3 Days Qty: 10 0RF lisinopril-hydrochlorothiazide 20-25 mg tablet 1 tab PO BID Label Comments: TAKE TWO (2) TABLETS BY MOUTH ONCE DAILY citalopram 20 mg Tablet 40 mg PO DAILY 30 Days Qty: 60 0RF oxycodone 5 mg tablet 5 mg PO Q8H PRN (Reason: pain) 3 Days Qty: 9 0RF Primary Care Provider: Gris Fofana NP Referrals: Gris Fofana NP, [employer]ISHER-[employer] [Primary Care Provider] - 3-5 Days Activity Restrictions/Additional Instructions: Follow-up with your spine surgeons at [facility] as soon as possible. Disposition Disposition: Home, Self Care Discharge Date/Time: 05/06/22 00:45
[2022-05-05 20:00] LABS: Absolute Lymphocyte Count 3.25 X10^3/uL (0.83-4.51); Absolute Neutrophil Count 9.1 X10^3/uL (2.0-7.7); Basophil# 0.03 X10^3/uL; Basophil% 0.2 % (0-1); Eosinophil# 0.11 X10^3/uL; Eosinophils% 0.8 % (0-5); Hematocrit 43.8 % (37-47); Lymphocyte # 3.25 X10^3/ul (0.83-4.51); Mean Corpuscular Hgb 28.3 pg (27.0-32.0); Mean Corpuscular Volume 88.5 fL (81-99); Mean Platelet Vol. 11.2 fl (6.2-12.0); Monocyte# 0.88 X10^3/uL; Monocyte% 6.5 % (0-10); NRBC Flagged by Analyzer 0 % (0-5); Neutrophil # 9.12 X10^3/uL (2.7-7.7); Neutrophil % 67.5 % (47-70); Platelet Count 387 K/mm3 (150-450); RBC Distribution Width CV 15.6 % (11.6-14.6); RBC Distribution Width SD 50.5 fl (35.1-43.9); Red Blood Count 4.95 M/mm3 (4.2-5.4); White Blood Count 13.5 K/mm3 (4.4-11.0)
--- NOTE | 2022-05-05 20:00 | RAD_ITS ---
STUDY: X-RAY CHEST REASON FOR EXAM: Female, 56 years old. hypoxia TECHNIQUE: Single AP portable view of the chest. COMPARISON: 04/22/2022 FINDINGS: The lungs are clear and expanded. There is no demonstrated pleural abnormality. Normal size heart. Normal mediastinum and judah. Normal visualized pulmonary arteries. Normal visualized aortic arch and descending thoracic aorta. Normal visualized thoracic spine. Normal visualized ribs, clavicles, and shoulders. There is no demonstrated abnormality of the visualized soft tissue structures of the upper abdomen. RAD/Chest 1 View (Portable) IMPRESSION: Normal x-ray examination of the chest. Electronically Signed: Jeremiah Lau MD at 20:13 EDT ,
[2022-05-05 20:08] VITALS: PULSE 76; RESP 18; O2SAT 96
[2022-05-05] MEDS: Ipratropium/Albuterol Sulfate 3 ML AMPUL.NEB INHALATION (20:08)
[2022-05-05 20:18] LABS: Anion Gap 11 (5-15); BUN 21 mg/dL (7-18); BUN/Creat Ratio 13.5 RATIO (10-20); Calcium,Total 10.6 mg/dL (8.5-10.1); Chloride 94 mmol/L (98-107); Creatinine, Serum 1.56 mg/dL (0.55-1.02); EST Glomerular Filtration Rate 36 mL/min (>60); Est Glom Filt Rate - Afr Amer 44 mL/min (>60); Estimated Creatinine Clearance 30.02 ml/min; Glucose 373 mg/dL (74-106); Potassium 4.3 mmol/L (3.5-5.1); Sodium Level 129 mmol/L (136-145); Troponin-I HS 17 pg/mL (3.0-54.0)
[2022-05-05] MEDS: 0.9% Normal Saline 1,000 ML 999 ML IV ×2 (20:20→22:34)
[2022-05-05 21:01] LABS: BNP,B-Type NATRIURETIC PEPTIDE 126.6 pg/mL (0-100)
[2022-05-05 21:03] LABS: Lactic Acid 2.5 mmol/L (0.4-1.9)
[2022-05-05 22:34] VITALS: BP 97/75; PULSE 93; RESP 17; O2SAT 95
[2022-05-05 23:24] VITALS: BP 107/65; PULSE 87; RESP 20; O2SAT 97
[2022-05-05 23:41] VITALS: BP 118/65; PULSE 86; RESP 17; O2SAT 98
[2022-05-05 23:57] LABS: Reflex Lactate? Y
[2022-05-06 00:33] LABS: Lactic Acid 1.6 mmol/L (0.4-1.9)
[2022-05-06 00:46] VITALS: BP 140/97; PULSE 94; RESP 16; O2SAT 94
[2022-05-06] MEDS: oxyCODONE 5 MG Tablet PO (00:56)
== END 2022-05-06 00:45 | disposition home or self-care (01) ==
PROVIDERS: Emergency Provider Emergency Medicine; PCP Nurse Practitioner Primary Care; Visit Provider Emergency Medicine
DX: N17.9 Acute kidney failure, unspecified (principal); J44.9 Chronic obstructive pulmonary disease, unspecified; Z79.4 Long term (current) use of insulin; E11.9 Type 2 diabetes mellitus without complications; M54.9 Dorsalgia, unspecified; I25.10 Atherosclerotic heart disease of native coronary artery without angina pectoris; R42 Dizziness and giddiness; E78.00 Pure hypercholesterolemia, unspecified; E86.0 Dehydration; E78.5 Hyperlipidemia, unspecified; I10 Essential (primary) hypertension; F17.210 Nicotine dependence, cigarettes, uncomplicated; R06.02 Shortness of breath
CPT/HCPCS: G0463; 71045; 80048; 83605; 83880; 84484; 85025; 87428; 93005; 94640; 99251; 99283; 99285; J7030; A4216

== ENCOUNTER → 2022-05-07 | Outpatient (CLI) | payer MEDICAID, SELFPAY ==
[2022-05-07 11:14] LABS: Hematocrit 40.7 % (37-47); Hemoglobin 12.8 g/dL (12.0-15.0); Mean Corp Hgb Conc 31.4 g/dL (32-36); Mean Corpuscular Hgb 28.2 pg (27.0-32.0); Mean Corpuscular Volume 89.6 fL (81-99); Mean Platelet Vol. 11.4 fl (6.2-12.0); Platelet Count 364 K/mm3 (150-450); RBC Distribution Width CV 15.9 % (11.6-14.6); Red Blood Count 4.54 M/mm3 (4.2-5.4); White Blood Count 13.6 K/mm3 (4.4-11.0)
[2022-05-07 11:46] LABS: Vitamin D,25 Hydroxy 19.7 ng/mL
[2022-05-07 12:32] LABS: ALB/GLOB Ratio 0.7 RATIO (0.9-2.4); AST(SGOT) 11 U/L (15-37); Alanine Aminotransfer ALT/SGPT 16 U/L (13-56); Albumin, Serum 2.9 g/dL (3.2-5.0); Alkaline Phosphatase 120 U/L (45-117); Anion Gap 8 (5-15); BUN 15 mg/dL (7-18); BUN/Creat Ratio 14.3 RATIO (10-20); Calcium,Total 9.7 mg/dL (8.5-10.1); Chloride 101 mmol/L (98-107); Cholesterol 145 mg/dL (200); Creatinine, Serum 1.05 mg/dL (0.55-1.02); EST Glomerular Filtration Rate 57 mL/min (>60); Est Glom Filt Rate - Afr Amer 69 mL/min (>60); Globulin 4.3 g/dL (2.2-4.2); Glucose 164 mg/dL (74-106); High Density Lipoprotein 41 mg/dL; Potassium 4.8 mmol/L (3.5-5.1); Protein, Total 7.2 g/dL (6.4-8.2); Sodium Level 135 mmol/L (136-145); Thyroid Stim Hormone (TSH) 5.14 uIU/mL (0.358-3.74); Triglycerides 159 mg/dL; Very Low Density Lipoprotein 32 mg/dL (5-40)
== END | disposition home or self-care (01) ==
LOC: LAB 09:55
PROVIDERS: PCP Nurse Practitioner Primary Care; Referring Provider Nurse Practitioner Primary Care; Visit Provider Nurse Practitioner Primary Care
DX: E11.65 Type 2 diabetes mellitus with hyperglycemia (principal); I10 Essential (primary) hypertension
CPT/HCPCS: 36415; 80053; 80061; 82306; 84443; 85027

== ENCOUNTER 2022-05-09 17:16 | Emergency (ER) | payer MEDICAID, SELFPAY ==
[2022-05-09 17:16] VITALS: BP 92/79; PULSE 104; RESP 12; TEMP 36.6; O2SAT 96; BMI 30.8
--- NOTE | 2022-05-09 17:39 | EKG12_ITS ---
Test Reason : syncope Blood Pressure : / mmHG Vent. Rate : 093 BPM Atrial Rate : 093 BPM P-R Int : 184 ms QRS Dur : 080 ms QT Int : 382 ms P-R-T Axes : 081 -32 033 degrees QTc Int : 474 ms Normal sinus rhythm Left axis deviation Pulmonary disease pattern Inferior infarct , age undetermined Abnormal ECG Confirmed by ANJANA CRABTREE, YAMILET ([id number]), video news editor DIANA HAYES ([id number]) on 05/10/2022 2:16:13 PM Referred By: Frieda Confirmed By:DEVI YEUNG MD
--- NOTE | 2022-05-09 17:52 | EX.ED.DYSGE1 ---
HPI History of Present Illness Chief Complaint: Syncope Informant: patient Narrative Narrative: Presents by EMS from home near syncopal episode with low blood pressure. She been having issues with low blood pressure past month. She is on blood pressure medicines twice a day apparently losartan with hydrochlorothiazide. She was seen 3 days in the ED with low blood pressure that improved with fluids. She denies any recent vomiting or diarrhea. Denies cough. Denies urinary symptoms. Her PCP is aware. She did not take her blood pressure medicine this morning due to being low. She did not pass out. She denies chest pains. She denies cough or dyspnea. History of chronic back pain. Reports pain in that area. Denies fevers. Review of her records from 3 days ago had creatinine 1.59. She was given fluids. Her blood pressure improved she was able to ambulate at that time. Prior similar symptoms: Yes PFSH PFS Medical History Anxiety Arthritis Asthma Back pain Back pain Cardiology follow-up encounter Chronic neck and back pain COPD (chronic obstructive pulmonary disease) Coronary artery calcification seen on CAT scan CPAP (continuous positive airway pressure) dependence Depression Diabetes Dietary restriction Difficulty balancing Essential hypertension Gastric reflux High cholesterol History of arthritis History of echocardiogram History of edema History of pain when walking History of renal disease History of stomach ulcers History of stress test Hyperlipidemia Hypertension Injury of head and neck Insulin dependent diabetes mellitus Knee pain Lumbar stenosis Migraine headache Obesity Osteomyelitis Shortness of breath on exertion Shoulder pain Sleep apnea Smoker Spinal fusion failure Strain of muscle, fascia and tendon of pelvis, initial encounter Strain of right hip and thigh Strain of right inguinal region Strain of unspecified muscles, fascia and tendons at thigh level, right thigh, initial encounter Syncope Thyroid disease Type 2 diabetes mellitus Walker as ambulation aid Wears glasses Wears hearing aid Home Medications insulin glargine 100 unit/mL (3 mL) subcutaneous pen 32 unit subcut BREAKFAST DIABETES 11/03/20 [History Last Taken 12/25/21] albuterol sulfate 90 mcg/actuation aerosol inhaler 2 puff inhalation Q6H PRN SOB 06/14/21 [History Last Taken 12/25/21] atorvastatin 80 mg tablet 80 mg PO QHS CHOLESTEROL 06/14/21 [History Last Taken 02/21/22] budesonide-formoterol HFA 160 mcg-4.5 mcg/actuation aerosol inhaler (Symbicort) 2 puff inhalation BID ASTHMA 06/14/21 [History Last Taken 12/25/21] pantoprazole 40 mg tablet,delayed release 40 mg PO DAILY GERD 06/14/21 [History Last Taken 02/21/22] tizanidine 4 mg capsule 4 mg PO BID PRN Muscle Pain 06/14/21 [History Last Taken 12/18/21] amitriptyline 100 mg tablet 100 mg PO QHS sleep 11/27/21 [History Last Taken 12/25/21] ipratropium 0.5 mg-albuterol 3 mg (2.5 mg base)/3 mL nebulization soln 3 ml inhalation 4X/DAY PRN sob 11/27/21 [History Last Taken 11/25/21] loratadine 10 mg tablet 10 mg PO DAILY allergies 11/27/21 [History Last Taken 02/21/22] insulin lispro 100 unit/mL subcutaneous pen (Humalog KwikPen (U-100) Insulin) 8 unit subcut BID DM 12/26/21 [History Last Taken Unknown] acetaminophen 500 mg tablet 1,000 mg PO Q8H PRN Pain 02/22/22 [History Last Taken Unknown] empagliflozin 10 mg tablet (Jardiance) 10 mg PO DAILY DM 02/22/22 [History Last Taken 02/21/22] metoprolol tartrate 25 mg tablet 25 mg PO BID #60 tabs 02/24/22 [Rx Last Taken Unknown] oxycodone 5 mg tablet 5 mg PO Q6H PRN pain 3 days #10 tabs 04/21/22 [Rx Last Taken Unknown] citalopram 20 mg tablet 40 mg PO DAILY 30 days #60 tabs 04/23/22 [Rx Last Taken Unknown] lisinopril 20 mg-hydrochlorothiazide 25 mg tablet 1 tab PO BID Check with primary doctor 04/23/22 [History Last Taken Unknown] oxycodone 5 mg tablet 5 mg PO Q8H PRN pain 3 days #9 tabs 04/23/22 [Rx Last Taken Unknown] Allergy/AdvReac Type Severity Reaction Status Date / Time duloxetine [From Cymbalta] Allergy Unknown Verified 05/09/22 17:21 pregabalin [From Lyrica] Allergy Unknown Verified 05/09/22 17:21 Penicillins AdvReac Mild leaves a Verified 05/09/22 17:21 bad taste in her mouth. NSAIDS (Non-Steroidal AdvReac Upset Verified 05/09/22 17:21 Anti-Inflamma Stomach Family History Father Cancer Unclear type. Mother Lung cancer Concurrent tobacco use history. Surgical History History of ankle surgery History of History of carpal tunnel release History of hysterectomy History of open reduction and internal fixation (ORIF) procedure History of partial thyroidectomy Social History household members: none Smoking Status: Current every day smoker tobacco type: cigarettes alcohol intake: never substance use type: does not use ROS ROS ED Constitutional Constitutional ED: Denies chills, fever(s) or sweats Eyes Eyes: Denies change in vision ENT ENT ED: Denies dysphagia or sore throat Cardiovascular Cardiovascular: Denies chest pain, leg edema, palpitations or racing heartbeat Respiratory/Chest Respiratory/Chest: Denies cough, dyspnea or dyspnea on exertion Gastrointestinal Gastrointestinal: Denies abdominal pain, diarrhea, nausea or vomiting Genitourinary Genitourinary ED: Denies dysuria, hematuria or urinary frequency Musculoskeletal Musculoskeletal: Reports back pain; Denies extremity pain or neck pain Integumentary Denies rash or wounds Neurologic Neurologic: Denies headache(s), paresthesias or weakness EXAM Physical Exam Const Vital Signs: 05/09/22 17:16 05/09/22 17:19 05/09/22 17:56 Temperature 97.8 F Temperature Source Oral Pulse Rate 104 H 90 Respiratory Rate 12 20 H Respiratory Pattern Normal Blood Pressure 92/79 97/70 Blood Pressure Mean 83 79 Pulse Ox 96 96 Oxygen Delivery Method Room Air Room Air 05/09/22 19:00 05/09/22 19:15 05/09/22 19:30 Temperature Temperature Source Pulse Rate 73 62 100 Respiratory Rate 18 18 16 Respiratory Pattern Blood Pressure 106/74 152/82 H 143/90 H Blood Pressure Mean 84 105 107 Pulse Ox Oxygen Delivery Method 05/09/22 19:49 Temperature Temperature Source Pulse Rate 100 Respiratory Rate 16 Respiratory Pattern Blood Pressure 143/90 H Blood Pressure Mean Pulse Ox Oxygen Delivery Method Positive well nourished and well developed General Appearance ED: well developed and NAD HEENT Reports moist mucous membranes normocephalic and atraumatic Eyes PERRL, EOMs intact bilaterally and conjunctivae normal General Eye ED: Yes normal appearance of both eyes Neck no lymphadenopathy and supple General: Negative for tenderness Chest Wall Chest: Negative for tenderness Resp normal respiratory effort and normal air movement Effort and Inspection: symmetric chest movement; Negative for respiratory distress Cardio regular rate, regular rhythm and no murmurs Peripheral Pulses: pulses 2+ throughout GI normal to inspection, nondistended, normoactive bowel sounds and non-tender Palpation: Negative for guarding or rebound tenderness present Back/Spine no CVA tenderness Back/Spine Narrative: Lower lumbar tenderness straight leg test negative bilaterally. Extremity normal to inspection General Extremety ED: Negative for edema or tenderness General Extremity: Negative for edema Neuro oriented x3 and no sensory deficits noted Sensorium / Orientation: awake and alert Skin no rashes or lesions noted and no wounds MDM MDM MDM Narrative Medical decision making narrative: Patient hypotension on my evaluation. History of similar. She responded to IV fluids. Laboratory studies and urine was obtained. Prior to results of all labs patient became frustrated due to similar event a few days ago. She told the nurse that she wanted to leave. IV was removed. Patient eloped prior to my reevaluation. Blood work note creatinine 1.34, urine had positive nitrites leukocytes and white blood cells there is mild squamous epithelial cells. I did add a urine culture, she did not report any urine symptoms on initial evaluation. Therefore we will await culture before calling for treatment. Lab Data Attestation: I reviewed the patient's lab results. Labs: Laboratory Results - last 24 hr 05/09/22 05/09/22 05/09/22 17:50 17:50 19:09 WBC 10.0 RBC 4.07 L Hgb 11.7 L Hct 36.2 L MCV 88.9 MCH 28.7 MCHC 32.3 RDW Std Deviation 50.5 H RDW Coeff of Yudelka 15.6 H Plt Count 295 MPV 11.2 Immature Gran % (Auto) 0.400 Neut % (Auto) 66.6 Lymph % (Auto) 26.0 [place] % (Auto) 5.7 Eos % (Auto) 1.1 Baso % (Auto) 0.2 Absolute Neuts (auto) 6.7 Absolute Lymphs (auto) 2.60 Nucleated RBC % 0 Sodium 131 L Potassium 4.5 Chloride 97 L Carbon Dioxide 25.0 Anion Gap 9 BUN 21 H Creatinine 1.34 H Estim Creat Clear Calc 34.95 Est GFR (MDRD) Af Amer 52 L Est GFR (MDRD) Non-Af 43 L BUN/Creatinine Ratio 15.7 Glucose 183 H Calcium 9.5 Total Bilirubin 0.30 AST 11 L ALT 15 Alkaline Phosphatase 115 Total Protein 6.5 Albumin 2.7 L Globulin 3.8 Albumin/Globulin Ratio 0.7 L Urine Color Straw Urine Clarity Cloudy Urine pH 6.0 Ur Specific [place] 1.010 Urine Protein 100 H Urine Glucose (UA) 1000 H Urine Ketones Negative Urine Occult Blood 150 H Urine Nitrite Positive H Urine Bilirubin Negative Urine Urobilinogen Normal Ur Leukocyte Esterase 500 H Urine RBC 5-10 SEEN Urine WBC >100 SEEN Ur Squamous Epith Cells 5-10 SEEN Urine Bacteria 4+ Urine Mucus 0 SEEN EKG Initial EKG: Attestation: I personally reviewed and interpreted this EKG as follows: Comments: Sinus rate of 93, no ST or T wave changes. Discharge Plan Triage Chief Complaint: Syncope ED Provider: Moody Malave Dx/Rx/DC Orders Clinical Impression: Transient hypotension, Acute renal insufficiency Prescriptions: No Action atorvastatin 80 mg tablet 80 mg PO QHS budesonide-formoterol [Symbicort] 160-4.5 mcg/actuation HFA aerosol inhaler 2 puff inhalation BID albuterol sulfate 90 mcg/actuation HFA aerosol inhaler 2 puff inhalation Q6H PRN (Reason: SOB) pantoprazole 40 mg tablet,delayed release (DR/EC) 40 mg PO DAILY tizanidine 4 mg capsule 4 mg PO BID PRN (Reason: Muscle Pain) insulin glargine 100 unit/mL (3 mL) insulin pen 32 unit SC BREAKFAST ipratropium-albuterol 0.5 mg-3 mg(2.5 mg base)/3 mL solution for nebulization 3 ml inhalation 4X/DAY PRN (Reason: sob) amitriptyline 100 mg tablet 100 mg PO QHS Label Comments: take 1 tablet by oral route at bedtime per day loratadine 10 mg tablet 10 mg PO DAILY insulin lispro [Humalog KwikPen Insulin] 100 unit/mL insulin pen 8 unit subcut BID Protocol: 4. Sliding Scale Insulin High-Med Dosing Condition: 150-199 mg/dl = 2 units Condition: 200-259 mg/dl = 4 units Condition: 260-324 mg/dl = 6 units Condition: 325-374 mg/dl = 8 units Condition: 375-409 mg/dl = 10 units Condition: 410-449 mg/dl = 11 units Condition: Greater than 449 call physician Protocol Text: - Use for Total Daily Dose of Insulin 56-80 units - Patient who are insulin resistant or septic HIGH MEDIUM DOSING ALGORITHM Jardiance 10 mg tablet 10 mg PO DAILY Label Comments: TAKE 1 TABLET BY MOUTH EVERY MORNING acetaminophen 500 mg tablet 1,000 mg PO Q8H PRN (Reason: Pain) metoprolol tartrate 25 mg Tablet 25 mg PO BID Qty: 60 1RF oxycodone 5 mg tablet 5 mg PO Q6H PRN (Reason: pain) 3 Days Qty: 10 0RF lisinopril-hydrochlorothiazide 20-25 mg tablet 1 tab PO BID Label Comments: TAKE TWO (2) TABLETS BY MOUTH ONCE DAILY citalopram 20 mg Tablet 40 mg PO DAILY 30 Days Qty: 60 0RF oxycodone 5 mg tablet 5 mg PO Q8H PRN (Reason: pain) 3 Days Qty: 9 0RF Primary Care Provider: Gris Fofana NP Referrals: Gris Fofana NP, INSPECT[facility] [employer] [Primary Care Provider] - Disposition Disposition: Elopement Discharge Date/Time: 05/09/22 19:50
[2022-05-09 17:56] VITALS: BP 97/70; PULSE 90; RESP 20; O2SAT 96
[2022-05-09] MEDS: 0.9% Normal Saline 1,000 ML 1000 ML IV (18:03)
[2022-05-09 18:11] LABS: Absolute Neutrophil Count 6.7 X10^3/uL (2.0-7.7); Basophil# 0.02 X10^3/uL; Basophil% 0.2 % (0-1); Eosinophil# 0.11 X10^3/uL; Eosinophils% 1.1 % (0-5); Hematocrit 36.2 % (37-47); Hemoglobin 11.7 g/dL (12.0-15.0); Mean Corp Hgb Conc 32.3 g/dL (32-36); Mean Corpuscular Hgb 28.7 pg (27.0-32.0); Mean Corpuscular Volume 88.9 fL (81-99); Mean Platelet Vol. 11.2 fl (6.2-12.0); Monocyte# 0.57 X10^3/uL; Monocyte% 5.7 % (0-10); NRBC Flagged by Analyzer 0 % (0-5); Neutrophil # 6.65 X10^3/uL (2.7-7.7); Neutrophil % 66.6 % (47-70); Platelet Count 295 K/mm3 (150-450); RBC Distribution Width CV 15.6 % (11.6-14.6); RBC Distribution Width SD 50.5 fl (35.1-43.9); Red Blood Count 4.07 M/mm3 (4.2-5.4)
[2022-05-09 18:21] LABS: ALB/GLOB Ratio 0.7 RATIO (0.9-2.4); AST(SGOT) 11 U/L (15-37); Alanine Aminotransfer ALT/SGPT 15 U/L (13-56); Albumin, Serum 2.7 g/dL (3.2-5.0); Alkaline Phosphatase 115 U/L (45-117); Anion Gap 9 (5-15); BUN 21 mg/dL (7-18); BUN/Creat Ratio 15.7 RATIO (10-20); Calcium,Total 9.5 mg/dL (8.5-10.1); Chloride 97 mmol/L (98-107); Creatinine, Serum 1.34 mg/dL (0.55-1.02); EST Glomerular Filtration Rate 43 mL/min (>60); Est Glom Filt Rate - Afr Amer 52 mL/min (>60); Estimated Creatinine Clearance 34.95 ml/min; Globulin 3.8 g/dL (2.2-4.2); Glucose 183 mg/dL (74-106); Potassium 4.5 mmol/L (3.5-5.1); Protein, Total 6.5 g/dL (6.4-8.2); Sodium Level 131 mmol/L (136-145)
[2022-05-09 19:00] VITALS: BP 106/74; PULSE 73; RESP 18
[2022-05-09] MEDS: 0.9% Normal Saline 1,000 ML 150 ML IV (19:01)
[2022-05-09 19:15] VITALS: BP 152/82; PULSE 62; RESP 18
[2022-05-09 19:16] LABS: Mucous, Urine 0 SEEN /hpf (<or=2+)
[2022-05-09 19:30] VITALS: BP 143/90; PULSE 100; RESP 16
[2022-05-09 19:41] LABS: Color, Urine Straw (Yellow); Glucose, Dipstick 1000 mg/dl (Normal); Ketone-Dipstick Negative (Negative); Leukocyte Esterase-Dipstick 500 /ul (Negative); Nitrite-Dipstick Positive (Negative); Occult Blood-Urine 150 /ul (Negative); Protein-Dipstick 100 mg/dl (Negative); Urine Bilirubin Dipstick Negative (Negative); Urine Clarity Cloudy (Clear); Urine Urobilinogen Normal (Normal)
--- NOTE | 2022-05-09 19:44 | ED.RN ---
was made aware by [facility] registration that the pt wanted her iv removed now or she was going to rip it out herself. went back to check on te pt and voiced, i've been through this shit before and i want out of here now. removed pt's iv and informed DR ANGELES of pt's plans to leave. stated he was fine because her bp was good. went back to explain to pt plans and she was gone.
[2022-05-09 19:49] VITALS: BP 143/90; PULSE 100; RESP 16
[2022-05-09 19:51] LABS: Bacteria 4+ /hpf (None Seen); Red Blood Cells-Urine 5-10 SEEN /hpf (0-5); Squamous Epithelial Cells - UA 5-10 SEEN /hpf (5-10); White Blood Cells >100 SEEN /hpf (0-5)
== END 2022-05-09 19:50 | disposition left against medical advice (07) ==
PROVIDERS: Emergency Provider Emergency Medicine; PCP Nurse Practitioner Primary Care; Visit Provider Emergency Medicine
DX: I95.89 Other hypotension (principal); J44.9 Chronic obstructive pulmonary disease, unspecified; Z79.4 Long term (current) use of insulin; E11.9 Type 2 diabetes mellitus without complications; R31.9 Hematuria, unspecified; I10 Essential (primary) hypertension; I25.10 Atherosclerotic heart disease of native coronary artery without angina pectoris; M54.9 Dorsalgia, unspecified; E78.00 Pure hypercholesterolemia, unspecified; E78.5 Hyperlipidemia, unspecified; G89.29 Other chronic pain; N28.9 Disorder of kidney and ureter, unspecified
CPT/HCPCS: 80053; 81001; 85025; 87077; 87086; 87088; 87186; 93005; 99285; J7030; A4216

== ENCOUNTER 2022-05-13 10:39 | Emergency (ER) | payer MEDICAID, SELFPAY ==
[2022-05-13 10:40] VITALS: BP 121/88; PULSE 112; RESP 18; TEMP 36; O2SAT 95; BMI 27.3
--- NOTE | 2022-05-13 10:57 | EDS_ITS ---
HPI History of Present Illness Chief Complaint: Back Informant: patient Onset/Context/Timing Onset: Month(s) Context: - (since surgery 09/2021) Timing: Continuous Quality: Aching Location: Lumbar Current Severity: Severe Maximum Severity: Severe Worsened by: improves with Movement and Ambulation Relieved by: Remaining Still and Medications (oxycodone) Associated Symptoms Associated Symptoms: Numbness (both feet x months), Radiation to Right Leg and Radiation to Left Leg; Negative for Urinary Retention, Urinary Incontinence, Constipation or Fecal Incontinence Narrative Narrative: Patient has history of chronic low back pain, she had surgery in September and states the current issues have been present since the surgery. She has had several episodes of falls when her legs have given out, she has been told that her hardware is loose as a result of this, likely. [facility] and she was told that she may possibly need another surgery. She was diagnosed with osteomyelitis in February, she had surgical biopsies done here, the pathology returned negative and all of the cultures returned negative including fungi, acid-fast bacteria, aerobic, and anaerobic cultures. She presents today on a holiday because she is out of her pain medication. She states she did not realize it was a holiday weekend, and her doctor is out of town both. Otherwise she would have followed up on Friday for a new prescription, however she ran out of pills yesterday, and her pain is out of control only because she does not have the pills, she feels. She has been taking oxycodone and it helps the pain quite a bit, she denies having any new symptoms at this time. Prior similar symptoms: Yes and With Prior Back Pain [facility] Medical History Anxiety Arthritis Asthma Back pain Back pain Cardiology follow-up encounter Chronic neck and back pain COPD (chronic obstructive pulmonary disease) Coronary artery calcification seen on CAT scan CPAP (continuous positive airway pressure) dependence Depression Diabetes Dietary restriction Difficulty balancing Essential hypertension Gastric reflux High cholesterol History of arthritis History of echocardiogram History of edema History of pain when walking History of renal disease History of stomach ulcers History of stress test Hyperlipidemia Hypertension Injury of head and neck Insulin dependent diabetes mellitus Knee pain Lumbar stenosis Migraine headache Obesity Osteomyelitis Shortness of breath on exertion Shoulder pain Sleep apnea Smoker Spinal fusion failure Strain of muscle, fascia and tendon of pelvis, initial encounter Strain of right hip and thigh Strain of right inguinal region Strain of unspecified muscles, fascia and tendons at thigh level, right thigh, initial encounter Syncope Thyroid disease Type 2 diabetes mellitus Walker as ambulation aid Wears glasses Wears hearing aid Home Medications insulin glargine 100 unit/mL (3 mL) subcutaneous pen 32 unit subcut BREAKFAST DIABETES 11/03/20 [History Last Taken 12/25/21] albuterol sulfate 90 mcg/actuation aerosol inhaler 2 puff inhalation Q6H PRN SOB 06/14/21 [History Last Taken 12/25/21] atorvastatin 80 mg tablet 80 mg PO QHS CHOLESTEROL 06/14/21 [History Last Taken 02/21/22] budesonide-formoterol HFA 160 mcg-4.5 mcg/actuation aerosol inhaler (Symbicort) 2 puff inhalation BID ASTHMA 06/14/21 [History Last Taken 12/25/21] pantoprazole 40 mg tablet,delayed release 40 mg PO DAILY GERD 06/14/21 [History Last Taken 02/21/22] tizanidine 4 mg capsule 4 mg PO BID PRN Muscle Pain 06/14/21 [History Last Taken 12/18/21] amitriptyline 100 mg tablet 100 mg PO QHS sleep 11/27/21 [History Last Taken 12/25/21] ipratropium 0.5 mg-albuterol 3 mg (2.5 mg base)/3 mL nebulization soln 3 ml inhalation 4X/DAY PRN sob 11/27/21 [History Last Taken 11/25/21] loratadine 10 mg tablet 10 mg PO DAILY allergies 11/27/21 [History Last Taken 02/21/22] insulin lispro 100 unit/mL subcutaneous pen (Humalog KwikPen (U-100) Insulin) 8 unit subcut BID DM 12/26/21 [History Last Taken Unknown] acetaminophen 500 mg tablet 1,000 mg PO Q8H PRN Pain 02/22/22 [History Last Taken Unknown] empagliflozin 10 mg tablet (Jardiance) 10 mg PO DAILY DM 02/22/22 [History Last Taken 02/21/22] metoprolol tartrate 25 mg tablet 25 mg PO BID #60 tabs 02/24/22 [Rx Last Taken Unknown] oxycodone 5 mg tablet 5 mg PO Q6H PRN pain 3 days #10 tabs 04/21/22 [Rx Last Taken Unknown] citalopram 20 mg tablet 40 mg PO DAILY 30 days #60 tabs 04/23/22 [Rx Last Taken Unknown] lisinopril 20 mg-hydrochlorothiazide 25 mg tablet 1 tab PO BID Check with primary doctor 04/23/22 [History Last Taken Unknown] oxycodone 5 mg tablet 5 mg PO Q8H PRN pain 3 days #9 tabs 04/23/22 [Rx Last Taken Unknown] Allergy/AdvReac Type Severity Reaction Status Date / Time duloxetine [From Cymbalta] Allergy Unknown Verified 05/13/22 10:39 pregabalin [From Lyrica] Allergy Unknown Verified 05/13/22 10:39 Penicillins AdvReac Mild leaves a Verified 05/13/22 10:39 bad taste in her mouth. NSAIDS (Non-Steroidal AdvReac Upset Verified 05/13/22 10:39 Anti-Inflamma Stomach Family History Father Cancer Unclear type. Mother Lung cancer Concurrent tobacco use history. Surgical History History of ankle surgery History of History of carpal tunnel release History of hysterectomy History of open reduction and internal fixation (ORIF) procedure History of partial thyroidectomy Social History household members: none Smoking Status: Current every day smoker tobacco type: cigarettes alcohol intake: never substance use type: does not use ROS ROS ED Constitutional Constitutional ED: Denies chills or fever(s) Eyes Eyes: Denies blurry vision or change in vision Gastrointestinal Gastrointestinal: Denies abdominal pain, constipation, fecal incontinence, nausea or vomiting Genitourinary Genitourinary ED: Reports other Details: no urinary retention ; Denies abdominal discomfort or urinary incontinence Musculoskeletal Musculoskeletal: Reports as per HPI and back pain; Denies neck pain Integumentary Denies rash or wounds Neurologic Neurologic: Reports paresthesias; Denies headache(s) or weakness EXAM Physical Exam Const Vital Signs: 05/13/22 10:40 Temperature 96.8 F L Temperature Source Temporal Pulse Rate 112 H Respiratory Rate 18 Blood Pressure 121/88 H Blood Pressure Mean 99 Pulse Ox 95 Oxygen Delivery Method Room Air Positive well nourished and well developed General Appearance ED: well developed and NAD HEENT Negative for trauma or tenderness Eyes PERRL and EOMs intact bilaterally Neck full ROM and supple GI normal to inspection, nondistended, normoactive bowel sounds, soft to palpation and non-tender Back/Spine normal to inspection Back/Spine Narrative: Straight leg raises hurt hamstrings and back only Lumbar Spine / Lower Back: ROM limited, paraspinal muscle tenderness and straight leg raise negative bilaterally; Negative for lumbar spinal tenderness Extremity normal to inspection, full ROM and no pedal edema Neuro oriented x3 and no sensory deficits noted Sensorium / Orientation: alert Motor Exam: strength 5/5 throughout and clonus absent Deep Tendon Reflexes: Rt Patellar (L4): 1+, Lt Patellar (L4): 1+, Rt Ankle (S1): 1+ and Lt Ankle (S1): 1+ Deep Tendon Reflexes Back: Rt Patellar (L4): 1+, Lt Patellar (L4): 1+, Rt Ankle (S1): 1+ and Lt Ankle (S1): 1+ Plantar Reflex: Downgoing: bilateral Psych mental status grossly normal and thought process normal Skin no rashes or lesions noted and no wounds MDM MDM MDM Narrative Medical decision making narrative: Patient states she gets oxycodone prescribed to her from her primary doctor. She is not seeing a portrait painter or under any contract. She understands that in the state [facility], 1 prescriber for narcotics is required, but I am happy to treat her pain here today and she is grateful for that. She has had extensive work-up including the aforementioned biopsies, I do not think she needs any other testing today given the history and she is in agreement. Discharge Plan Triage Chief Complaint: Back ED Provider: Soto Buckner Dx/Rx/DC Orders Clinical Impression: Acute exacerbation of chronic low back pain Instructions: ED Back Pain (Acute or Chronic) Prescriptions: No Action atorvastatin 80 mg tablet 80 mg PO QHS budesonide-formoterol [Symbicort] 160-4.5 mcg/actuation HFA aerosol inhaler 2 puff inhalation BID albuterol sulfate 90 mcg/actuation HFA aerosol inhaler 2 puff inhalation Q6H PRN (Reason: SOB) pantoprazole 40 mg tablet,delayed release (DR/EC) 40 mg PO DAILY tizanidine 4 mg capsule 4 mg PO BID PRN (Reason: Muscle Pain) insulin glargine 100 unit/mL (3 mL) insulin pen 32 unit SC BREAKFAST ipratropium-albuterol 0.5 mg-3 mg(2.5 mg base)/3 mL solution for nebulization 3 ml inhalation 4X/DAY PRN (Reason: sob) amitriptyline 100 mg tablet 100 mg PO QHS Label Comments: take 1 tablet by oral route at bedtime per day loratadine 10 mg tablet 10 mg PO DAILY insulin lispro [Humalog KwikPen Insulin] 100 unit/mL insulin pen 8 unit subcut BID Protocol: 4. Sliding Scale Insulin High-Med Dosing Condition: 150-199 mg/dl = 2 units Condition: 200-259 mg/dl = 4 units Condition: 260-324 mg/dl = 6 units Condition: 325-374 mg/dl = 8 units Condition: 375-409 mg/dl = 10 units Condition: 410-449 mg/dl = 11 units Condition: Greater than 449 call physician Protocol Text: - Use for Total Daily Dose of Insulin 56-80 units - Patient who are insulin resistant or septic HIGH MEDIUM DOSING ALGORITHM Jardiance 10 mg tablet 10 mg PO DAILY Label Comments: TAKE 1 TABLET BY MOUTH EVERY MORNING acetaminophen 500 mg tablet 1,000 mg PO Q8H PRN (Reason: Pain) metoprolol tartrate 25 mg Tablet 25 mg PO BID Qty: 60 1RF oxycodone 5 mg tablet 5 mg PO Q6H PRN (Reason: pain) 3 Days Qty: 10 0RF lisinopril-hydrochlorothiazide 20-25 mg tablet 1 tab PO BID Label Comments: TAKE TWO (2) TABLETS BY MOUTH ONCE DAILY citalopram 20 mg Tablet 40 mg PO DAILY 30 Days Qty: 60 0RF oxycodone 5 mg tablet 5 mg PO Q8H PRN (Reason: pain) 3 Days Qty: 9 0RF Primary Care Provider: Gris Fofana NP Referrals: Gris Fofana NP, HAND CUTTER APPRENTICE-C [Primary Care Provider] - As soon as possible (And/or back specialist(s)) Disposition Disposition: Home, Self Care
[2022-05-13] MEDS: HYDROmorphone 1 MG/ML Syringe IM (11:08)
[2022-05-13] MEDS: Ketorolac 30 MG/ML Syringe IM (11:08)
== END 2022-05-13 11:17 | disposition home or self-care (01) ==
LOC: ED 11:07
PROVIDERS: Emergency Provider Emergency Medicine; PCP Nurse Practitioner Primary Care; Visit Provider Emergency Medicine
DX: M54.50 Low back pain, unspecified (principal); J44.9 Chronic obstructive pulmonary disease, unspecified; E11.9 Type 2 diabetes mellitus without complications; Z79.4 Long term (current) use of insulin; I10 Essential (primary) hypertension; I25.10 Atherosclerotic heart disease of native coronary artery without angina pectoris; E78.00 Pure hypercholesterolemia, unspecified; E78.5 Hyperlipidemia, unspecified; G89.29 Other chronic pain; F17.210 Nicotine dependence, cigarettes, uncomplicated
CPT/HCPCS: 99282

== ENCOUNTER 2022-05-15 17:50 | Emergency (ER) | payer MEDICAID, SELFPAY ==
[2022-05-15 17:51] VITALS: BP 109/74; PULSE 114; RESP 14; TEMP 36.8; O2SAT 100; BMI 27.1
== END 2022-05-15 21:08 | disposition left against medical advice (07) ==
LOC: ED 21:07
PROVIDERS: PCP Nurse Practitioner Primary Care
DX: M54.9 Dorsalgia, unspecified (principal)

== ENCOUNTER 2022-05-18 14:32 | Emergency (ER) | payer MEDICAID, SELFPAY ==
[2022-05-18 14:33] VITALS: BP 90/61; PULSE 117; RESP 16; TEMP 36; O2SAT 100; BMI 25.4
--- NOTE | 2022-05-18 15:39 | ED.RN ---
pt requesting to leave prior to treatment. IV fluids approx 700 ml infused from EMS. saline lock removed and Luis Antonio RN wheeled out. has ride.
== END 2022-05-18 15:47 | disposition left against medical advice (07) ==
PROVIDERS: PCP Nurse Practitioner Primary Care
DX: R29.6 Repeated falls (principal)
CPT/HCPCS: 99283

== ENCOUNTER 2022-06-14 17:07 | Emergency (ER) | payer MEDICAID, SELFPAY ==
[2022-06-14 17:33] VITALS: BP 118/82; PULSE 97; RESP 18; TEMP 35.6; O2SAT 100; BMI 26.2
[2022-06-14 17:36] VITALS: BP 118/82; PULSE 97; RESP 18; TEMP 35.6; O2SAT 100
== END 2022-06-14 17:40 | disposition left against medical advice (07) ==
LOC: ED 17:46
PROVIDERS: PCP Nurse Practitioner Primary Care
DX: Z00.00 Encounter for general adult medical examination without abnormal findings (principal)
CPT/HCPCS: 99282

== ENCOUNTER 2022-06-15 00:37 | Observation (INO) | payer MEDICAID, SELFPAY ==
[2022-06-15] VITALS (12 sets, daily range): BP systolic 112–135; BP diastolic 67–107; PULSE 70–99; RESP 16–22; TEMP 35.6–36.9; O2SAT 96–100; BMI 22.3; BMI 25.7
--- NOTE | 2022-06-15 01:09 | EKG12_ITS ---
Test Reason : CP Blood Pressure : / mmHG Vent. Rate : 096 BPM Atrial Rate : 096 BPM P-R Int : 186 ms QRS Dur : 076 ms QT Int : 356 ms P-R-T Axes : 099 -28 047 degrees QTc Int : 449 ms Sinus rhythm with Premature atrial complexes Otherwise normal ECG Confirmed by EZIO CRABTREE, AMY ([id number]), managing editor DIANA HAYES ([id number]) on 06/18/2022 1:47:06 PM Referred By: MARIA ESTHER Confirmed By:AMY HOLGUIN MD
[2022-06-15] MEDS: oxyCODONE 5 MG Tablet PO (01:23)
[2022-06-15] MEDS: LORazepam 1 MG Tablet PO (01:24)
[2022-06-15 01:42] LABS: Absolute Lymphocyte Count 2.69 X10^3/uL (0.83-4.51); Absolute Neutrophil Count 6.3 X10^3/uL (2.0-7.7); Basophil# 0.03 X10^3/uL; Basophil% 0.3 % (0-1); Eosinophil# 0.04 X10^3/uL; Eosinophils% 0.4 % (0-5); Hematocrit 40.6 % (37-47); Hemoglobin 13.9 g/dL (12.0-15.0); Lymphocyte # 2.69 X10^3/ul (0.83-4.51); Lymphocyte % 27.3 % (19-41); Mean Corp Hgb Conc 34.2 g/dL (32-36); Mean Corpuscular Hgb 29.1 pg (27.0-32.0); Mean Corpuscular Volume 85.1 fL (81-99); Mean Platelet Vol. 12.1 fl (6.2-12.0); Monocyte# 0.76 X10^3/uL; Monocyte% 7.7 % (0-10); NRBC Flagged by Analyzer 0 % (0-5); Platelet Count 306 K/mm3 (150-450); RBC Distribution Width CV 14.7 % (11.6-14.6); RBC Distribution Width SD 45.8 fl (35.1-43.9); Red Blood Count 4.77 M/mm3 (4.2-5.4); White Blood Count 9.9 K/mm3 (4.4-11.0)
--- NOTE | 2022-06-15 01:45 | EDS_ITS ---
HPI History of Present Illness Chief Complaint: Chest Pain Informant: patient Narrative Narrative: Patient presents because she is sick of having pain and being anxious and having chest pounding. She states is been going on for a long time. She did have a fall earlier today. This is not uncommon for her. She states she had lumbar fusion in September but got infections of the components are loose. Occasionally they will move which causes her to have pain and fall. She did not hurt herself in the fall. She states she feels like her heart is pounding strongly. Its not really painful and is not fast is just pounding harder. This happens frequently. She thinks this might be when she gets anxious over the pain that she has and can never get rid of. No fevers chills. No coughing. Nothing specifically makes this better or worse. She denies an actual history of heart disease or stents. [facility] Medical History Anxiety Arthritis Asthma Back pain Back pain Back pain Cardiology follow-up encounter Chronic neck and back pain COPD (chronic obstructive pulmonary disease) Coronary artery calcification seen on CAT scan CPAP (continuous positive airway pressure) dependence Depression Diabetes Dietary restriction Difficulty balancing Essential hypertension Gastric reflux High cholesterol History of arthritis History of echocardiogram History of edema History of pain when walking History of renal disease History of stomach ulcers History of stress test Hyperlipidemia Hypertension Injury of head and neck Insulin dependent diabetes mellitus Knee pain Lumbar stenosis Obesity Osteomyelitis Shortness of breath on exertion Shoulder pain Sleep apnea Smoker Spinal fusion failure Strain of muscle, fascia and tendon of pelvis, initial encounter Strain of right hip and thigh Strain of right inguinal region Strain of unspecified muscles, fascia and tendons at thigh level, right thigh, initial encounter Syncope Thyroid disease Type 2 diabetes mellitus Walker as ambulation aid Wears glasses Home Medications insulin glargine 100 unit/mL (3 mL) subcutaneous pen 25 unit subcut BREAKFAST DIABETES 11/03/20 [History Last Taken 06/14/22] albuterol sulfate 90 mcg/actuation aerosol inhaler 2 puff inhalation Q6H PRN SOB 06/14/21 [History Last Taken 06/14/22] atorvastatin 80 mg tablet 80 mg PO QHS CHOLESTEROL 06/14/21 [History Last Taken 06/13/22] budesonide-formoterol HFA 160 mcg-4.5 mcg/actuation aerosol inhaler (Symbicort) 2 puff inhalation BID ASTHMA 06/14/21 [History Last Taken 12/25/21] pantoprazole 40 mg tablet,delayed release 40 mg PO DAILY GERD 06/14/21 [History Last Taken 06/14/22] tizanidine 4 mg capsule 4 mg PO BID PRN Muscle Pain 06/14/21 [History Last Taken 06/13/22] amitriptyline 100 mg tablet 100 mg PO QHS sleep 11/27/21 [History Last Taken 12/25/21] ipratropium 0.5 mg-albuterol 3 mg (2.5 mg base)/3 mL nebulization soln 3 ml inhalation 4X/DAY PRN sob 11/27/21 [History Last Taken 11/25/21] loratadine 10 mg tablet 10 mg PO DAILY allergies 11/27/21 [History Last Taken 02/21/22] insulin lispro 100 unit/mL subcutaneous pen (Humalog KwikPen (U-100) Insulin) 8 unit subcut BID DM 12/26/21 [History Last Taken Unknown] acetaminophen 500 mg tablet 1,000 mg PO Q8H PRN Pain 02/22/22 [History Last Taken 06/14/22] empagliflozin 10 mg tablet (Jardiance) 10 mg PO DAILY DM 02/22/22 [History Last Taken 02/21/22] lisinopril 20 mg-hydrochlorothiazide 25 mg tablet 1 tab PO DAILY Check with primary doctor 04/23/22 [History Last Taken 06/14/22] Allergy/AdvReac Type Severity Reaction Status Date / Time duloxetine [From Cymbalta] Allergy Unknown Verified 05/18/22 14:33 pregabalin [From Lyrica] Allergy Unknown Verified 05/18/22 14:33 Penicillins AdvReac Mild leaves a Verified 05/18/22 14:33 bad taste in her mouth. NSAIDS (Non-Steroidal AdvReac Upset Verified 05/18/22 14:33 Anti-Inflamma Stomach Family History Father Cancer Unclear type. Mother Lung cancer Concurrent tobacco use history. Surgical History History of ankle surgery History of History of carpal tunnel release History of hysterectomy History of open reduction and internal fixation (ORIF) procedure History of partial thyroidectomy Social History household members: none Smoking Status: Current every day smoker tobacco type: cigarettes alcohol intake: never substance use type: does not use EXAM Physical Exam Const Vital Signs: 06/15/22 00:40 06/15/22 00:43 06/15/22 03:04 Temperature 96.0 F L 96.0 F L Temperature Source Temporal Temporal Pulse Rate 70 70 78 Respiratory Rate 18 18 16 Blood Pressure 135/107 H 135/107 H 133/68 H Blood Pressure Mean 116 116 89 Pulse Ox Oxygen Delivery Method 06/15/22 03:10 Temperature Temperature Source Pulse Rate 86 Respiratory Rate 22 H Blood Pressure 126/78 H Blood Pressure Mean 94 Pulse Ox 99 Oxygen Delivery Method Room Air Positive well nourished and well developed General Appearance ED: well developed and NAD; Negative for cyanotic, diaphoret ic or pallor HEENT Reports moist mucous membranes Negative for trauma Neck no JVD Chest Wall inspection of chest normal and palpation of chest normal Resp normal respiratory effort and clear to auscultation bilaterally Resp Narrative: No pain with a deep breath. Cardio regular rate and regular rhythm Rate: other Other Details: Heart rate is normal. Looks to be a normal sinus rhythm on the monitor. No notable ectopy. GI normal to inspection, nondistended, normoactive bowel sounds Back/Spine no CVA tenderness Back/Spine Narrative: She does see is a well-healed scar down the lower back. Extremity normal to inspection Neuro oriented x3 Psych Mood & Affect: tearful Skin no rashes or lesions noted General Skin Exam: Negative for jaundice or pallor MDM MDM MDM Narrative Medical decision making narrative: Patient CBC shows no marked abnormalities. Electrolytes showed minimally low sodium was slightly high BUN and creatinine. Troponin was a bit elevated 81. Repeat was 88. She has not had this before on our labs. With her risk factors, symptom elevated troponin she will be brought in the hospital in the case Lab Data Attestation: I reviewed the patient's lab results. Labs: Laboratory Results - last 24 hr 06/15/22 06/15/22 06/15/22 01:20 01:20 02:58 WBC 9.9 RBC 4.77 Hgb 13.9 Hct 40.6 MCV 85.1 MCH 29.1 MCHC 34.2 RDW Std Deviation 45.8 H RDW Coeff of Yudelka 14.7 H Plt Count 306 MPV 12.1 H Immature Gran % (Auto) 0.300 Neut % (Auto) 64.0 Lymph % (Auto) 27.3 [place] % (Auto) 7.7 Eos % (Auto) 0.4 Baso % (Auto) 0.3 Absolute Neuts (auto) 6.3 Absolute Lymphs (auto) 2.69 Nucleated RBC % 0 Sodium 132 L Potassium 3.5 Chloride 97 L Carbon Dioxide 22.0 Anion Gap 13 BUN 39 H Creatinine 1.50 H Estim Creat Clear Calc 37.23 Est GFR (MDRD) Af Amer 46 L Est GFR (MDRD) Non-Af 38 L BUN/Creatinine Ratio 26.0 H Glucose 327 H Calcium 10.2 H Troponin I High Sens 81 H 88 H Triglycerides Cholesterol LDL Cholesterol VLDL Cholesterol HDL Cholesterol 06/15/22 02:58 WBC RBC Hgb Hct MCV MCH MCHC RDW Std Deviation RDW Coeff of Yudelka Plt Count MPV Immature Gran % (Auto) Neut % (Auto) Lymph % (Auto) [place] % (Auto) Eos % (Auto) Baso % (Auto) Absolute Neuts (auto) Absolute Lymphs (auto) Nucleated RBC % Sodium Potassium Chloride Carbon Dioxide Anion Gap BUN Creatinine Estim Creat Clear Calc Est GFR (MDRD) Af Amer Est GFR (MDRD) Non-Af BUN/Creatinine Ratio Glucose Calcium Troponin I High Sens Triglycerides 143 Cholesterol 186 LDL Cholesterol 105 VLDL Cholesterol 29 HDL Cholesterol 52 Discharge Plan Dx/Rx/DC Orders Clinical Impression: Chest pain, Elevated troponin Disposition Disposition: Acute Care Hospital [facility] Discharge Date/Time: 06/15/22 04:23
[2022-06-15 01:57] LABS: Anion Gap 13 (5-15); BUN 39 mg/dL (7-18); Calcium,Total 10.2 mg/dL (8.5-10.1); Chloride 97 mmol/L (98-107); EST Glomerular Filtration Rate 38 mL/min (>60); Est Glom Filt Rate - Afr Amer 46 mL/min (>60); Estimated Creatinine Clearance 37.23 ml/min; Glucose 327 mg/dL (74-106); Potassium 3.5 mmol/L (3.5-5.1); Sodium Level 132 mmol/L (136-145); Troponin-I HS 81 pg/mL (3.0-54.0)
[2022-06-15] MEDS: Insulin Lispro 100 UNIT/ML INSULN.PEN SC ×3 (03:08→11:07)
[2022-06-15 03:35] LABS: Troponin-I HS 88 pg/mL (3.0-54.0)
--- NOTE | 2022-06-15 03:54 | EKG12_ITS ---
Test Reason : CP ADMIT Blood Pressure : / mmHG Vent. Rate : 077 BPM Atrial Rate : 077 BPM P-R Int : 176 ms QRS Dur : 080 ms QT Int : 432 ms P-R-T Axes : 054 015 015 degrees QTc Int : 488 ms Sinus rhythm with Premature atrial complexes Nonspecific T wave abnormality Prolonged QT Abnormal ECG When compared with ECG of 15-JUN-2022 00:49, MANUAL COMPARISON REQUIRED, DATA IS UNCONFIRMED Confirmed by EZIO CRABTREE, AMY ([id number]), editor managing newspaper DIANA HAYES ([id number]) on 06/18/2022 9:30:15 AM Referred By: Confirmed By:AMY HOLGUIN MD
--- NOTE | 2022-06-15 03:54 | PCM.HP.STD ---
HPI - General General Date of Admission: 06/15/22 Date of Service: 06/15/22 Chief Complaint: Chest pain HPI Narrative MILY CHILDRESS, is a 56 F with a significant history of chronic lower back pain with hardware; diabetes mellitus; hypertension; tobacco abuse who presented to emergency department with anxiety. Patient reports anxiety all day on the day of presentation. She reported that her anxiety was episodic. She reported her anxiety was secondary to lower back pain and bilateral leg pain. Reportedly she has hardware at her back and it is lose now. Also she reports left-sided chest pain that although she classified as little she rated the pain as 8-9 on a scale of 1-10. The chest pain is nonradiating. At the time of hospitalist evaluation she reported the chest pain was normal. She denies any nausea or vomiting. She reports some episodic diaphoresis. She reports some shortness of breath. [facility] Medical History Anxiety Arthritis Asthma Back pain Back pain Back pain Cardiology follow-up encounter Chronic neck and back pain COPD (chronic obstructive pulmonary disease) Coronary artery calcification seen on CAT scan CPAP (continuous positive airway pressure) dependence Depression Diabetes Dietary restriction Difficulty balancing Essential hypertension Gastric reflux High cholesterol History of arthritis History of echocardiogram History of edema History of pain when walking History of renal disease History of stomach ulcers History of stress test Hyperlipidemia Hypertension Injury of head and neck Insulin dependent diabetes mellitus Knee pain Lumbar stenosis Obesity Osteomyelitis Shortness of breath on exertion Shoulder pain Sleep apnea Smoker Spinal fusion failure Strain of muscle, fascia and tendon of pelvis, initial encounter Strain of right hip and thigh Strain of right inguinal region Strain of unspecified muscles, fascia and tendons at thigh level, right thigh, initial encounter Syncope Thyroid disease Type 2 diabetes mellitus Walker as ambulation aid Wears glasses Home Medications insulin glargine 100 unit/mL (3 mL) subcutaneous pen 25 unit subcut BREAKFAST DIABETES 11/03/20 [History Last Taken 06/14/22] albuterol sulfate 90 mcg/actuation aerosol inhaler 2 puff inhalation Q6H PRN SOB 06/14/21 [History Last Taken 06/14/22] atorvastatin 80 mg tablet 80 mg PO QHS CHOLESTEROL 06/14/21 [History Last Taken 06/13/22] budesonide-formoterol HFA 160 mcg-4.5 mcg/actuation aerosol inhaler (Symbicort) 2 puff inhalation BID ASTHMA 06/14/21 [History Last Taken 12/25/21] pantoprazole 40 mg tablet,delayed release 40 mg PO DAILY GERD 06/14/21 [History Last Taken 06/14/22] tizanidine 4 mg capsule 4 mg PO BID PRN Muscle Pain 06/14/21 [History Last Taken 06/13/22] amitriptyline 100 mg tablet 100 mg PO QHS sleep 11/27/21 [History Last Taken 12/25/21] ipratropium 0.5 mg-albuterol 3 mg (2.5 mg base)/3 mL nebulization soln 3 ml inhalation 4X/DAY PRN sob 11/27/21 [History Last Taken 11/25/21] loratadine 10 mg tablet 10 mg PO DAILY allergies 11/27/21 [History Last Taken 02/21/22] insulin lispro 100 unit/mL subcutaneous pen (Humalog KwikPen (U-100) Insulin) 8 unit subcut BID DM 12/26/21 [History Last Taken Unknown] acetaminophen 500 mg tablet 1,000 mg PO Q8H PRN Pain 02/22/22 [History Last Taken 06/14/22] empagliflozin 10 mg tablet (Jardiance) 10 mg PO DAILY DM 02/22/22 [History Last Taken 02/21/22] lisinopril 20 mg-hydrochlorothiazide 25 mg tablet 1 tab PO DAILY Check with primary doctor 04/23/22 [History Last Taken 06/14/22] Allergy/AdvReac Type Severity Reaction Status Date / Time duloxetine [From Cymbalta] Allergy Unknown Verified 05/18/22 14:33 pregabalin [From Lyrica] Allergy Unknown Verified 05/18/22 14:33 Penicillins AdvReac Mild leaves a Verified 05/18/22 14:33 bad taste in her mouth. NSAIDS (Non-Steroidal AdvReac Upset Verified 05/18/22 14:33 Anti-Inflamma Stomach Family History Father Cancer Unclear type. Mother Lung cancer Concurrent tobacco use history. Surgical History History of ankle surgery History of History of carpal tunnel release History of hysterectomy History of open reduction and internal fixation (ORIF) procedure History of partial thyroidectomy Social History household members: none Smoking Status: Current every day smoker tobacco type: cigarettes alcohol intake: never substance use type: does not use ROS ROS Narrative Pertinent positives and pertinent negatives as noted in HPI. All other systems were reviewed and are negative Vital Signs Vital Signs Vital Signs: 06/15/22 00:40 06/15/22 00:43 06/15/22 03:04 Temperature 96.0 F L 96.0 F L Temperature Source Temporal Temporal Pulse Rate 70 70 78 Respiratory Rate 18 18 16 Blood Pressure 135/107 H 135/107 H 133/68 H Blood Pressure Mean 116 116 89 Pulse Ox Oxygen Delivery Method 06/15/22 03:10 Temperature Temperature Source Pulse Rate 86 Respiratory Rate 22 H Blood Pressure 126/78 H Blood Pressure Mean 94 Pulse Ox 99 Oxygen Delivery Method Room Air Weight Weight: 60.781 kg Body Mass Index (BMI) 22.3 Physical Exam Narrative Physical exam: General: Well-nourished, well-developed. Head: Normocephalic, atraumatic, no tenderness Eyes: Vision is grossly intact. EOMI ENT, no trauma, moist mucous membranes, no rhinorrhea Neck: Nontender, full range of motion. CVS: Regular rate and rhythm. S1-S2 present. No murmur, gallop or rub. Respiratory : clear to auscultation bilaterally, chest wall nontender, no wheezing Abdomen: Soft, nontender, nondistended, normal bowel sounds, no masses : Deferred Back: Nontender, no CVA tenderness. Extremities: Nontender full range of motion, no trauma Skin: Normal color, no trauma, abrasions Neuro: Alert, oriented, cranial nerves II through XII grossly intact. Psychiatry: Patient with depressed affect and trying to cry. Results Lab / Micro Data Result Diagrams: 06/15/22 01:20 06/15/22 01:20 Labs: Laboratory Results - last 24 hr 06/15/22 01:20: WBC 9.9, RBC 4.77, Hgb 13.9, Hct 40.6, MCV 85.1, MCH 29.1, MCHC 34.2, RDW Std Deviation 45.8 H, RDW Coeff of Yudelka 14.7 H, Plt Count 306, MPV 12.1 H, Immature Gran % (Auto) 0.300, Neut % (Auto) 64.0, Lymph % (Auto) 27.3, [place] % (Auto) 7.7, Eos % (Auto) 0.4, Baso % (Auto) 0.3, Absolute Neuts (auto) 6.3, Absolute Lymphs (auto) 2.69, Nucleated RBC % 0 06/15/22 01:20: Sodium 132 L, Potassium 3.5, Chloride 97 L, Carbon Dioxide 22.0, Anion Gap 13, BUN 39 H, Creatinine 1.50 H, Estim Creat Clear Calc 37.23, Est GFR (MDRD) Af Amer 46 L, Est GFR (MDRD) Non-Af 38 L, BUN/Creatinine Ratio 26.0 H, Glucose 327 H, Calcium 10.2 H, Troponin I High Sens 81 H 06/15/22 02:58: Troponin I High Sens 88 H Assessment & Plan Assessment/Plan (1) Chest pain: QUALIFIERS: Chest pain type: unspecified Qualified Code(s): R07.9 - Chest pain, unspecified (2) Tobacco abuse: (3) Essential hypertension: PLAN: Plan Chest Pain Defer diagnoses include chest pain secondary to anxiety, NSTEMI or other. Place on a monitored bed at PCU Chest x-ray ordered. EKG showed sinus rhythm with PACs and some T wave flattening and inversions in leads V1 and V2 which is unchanged from EKG in May 2022. Full dose aspirin given at the emergency department. ASA 81 mg p.o. daily ordered Morphine IV as needed for pain. Will check lipid panel. Statin: High intensity statin continued. Initial high-sensitivity troponin was 81. Repeat high sensitivity troponin 88. Trend. Stat EKG as needed for chest pain Echocardiogram on 02/23/2022 showed an ejection fraction of 65 to 70%. Diastolic dysfunction. Pulmonary artery systolic pressure was not estimated. Stress test on 07/25/2021 was normal. Chemical stress test in the AM if the cardiac enzymes are negative. Patient reports unable to do treadmill stress test secondary to hardware on her back. Hyponatremia Sodium is mildly decreased at 132, chronic. Diabetes mellitus Patient with hyperglycemia on presentation On presentation patient received insulin subcutaneous at the ED. Jardiance continued. Home scheduled insulin held. Monitor Accu-Cheks Correction scale insulin ordered. Hypertension Blood pressure is not within goal Home blood pressure medication continued. Trend blood pressure and adjust blood pressure medications. Chronic back pain Not improved Tylenol and tizanidine continued. Tobacco abuse Counseled DVT prophylaxis: SCDs ordered Charges/Coding Visit Charges OBSV E&M: 73841 Initial observation care L3
[2022-06-15] MEDS: Aspirin 325 MG Tablet PO (04:00)
[2022-06-15 04:58] LABS: Cholesterol 186 mg/dL (200); High Density Lipoprotein 52 mg/dL; Triglycerides 143 mg/dL; Very Low Density Lipoprotein 29 mg/dL (5-40)
[2022-06-15] MEDS: Morphine 2 MG/ML Syringe IV ×2 (05:16→09:31)
--- NOTE | 2022-06-15 05:52 | RAD_ITS ---
STUDY: X-RAY CHEST REASON FOR EXAM: Female, 56 years old. Atypical chest pain TECHNIQUE: Single AP portable view of the chest. COMPARISON: 05/05/2022 FINDINGS: EKG leads overlie the chest The lungs are clear and expanded. There is no demonstrated pleural abnormality. Normal size heart. Normal mediastinum and judah. Normal visualized pulmonary arteries. Normal visualized aortic arch and descending thoracic aorta. Normal visualized thoracic spine. Normal visualized ribs, clavicles, and shoulders. There is no demonstrated abnormality of the visualized soft tissue structures of the upper abdomen. RAD/Chest 1 View (Portable) IMPRESSION: Normal x-ray examination of the chest. Electronically Signed: Nicolás Hendricks MD at 8:30 EDT ,
[2022-06-15] MEDS: Lisinopril 20 MG Tablet PO (07:29)
--- NOTE | 2022-06-15 08:06 | PCM.PN.HOSP ---
Subjective Subjective Patient is a 56-year-old lady admitted with chest pain Objective Data Objective Data Vital Signs: Vital Signs Temp Pulse Resp BP Pulse Ox O2 Del Method 97.9 F 70 16 113/67 98 Room Air 06/15/22 07:26 06/15/22 07:26 06/15/22 07:26 06/15/22 07:26 06/15/22 07:26 06/15/22 07:26 Oxygen Delivery Method Room Air Weight: 59.8 kg Body Mass Index (BMI) 25.7 Lab / Micro Data Result Diagrams: 06/15/22 01:20 06/15/22 01:20 Labs: Laboratory Results - last 24 hr 06/15/22 01:20: WBC 9.9, RBC 4.77, Hgb 13.9, Hct 40.6, MCV 85.1, MCH 29.1, MCHC 34.2, RDW Std Deviation 45.8 H, RDW Coeff of Yudelka 14.7 H, Plt Count 306, MPV 12.1 H, Immature Gran % (Auto) 0.300, Neut % (Auto) 64.0, Lymph % (Auto) 27.3, [place] % (Auto) 7.7, Eos % (Auto) 0.4, Baso % (Auto) 0.3, Absolute Neuts (auto) 6.3, Absolute Lymphs (auto) 2.69, Nucleated RBC % 0 06/15/22 01:20: Sodium 132 L, Potassium 3.5, Chloride 97 L, Carbon Dioxide 22.0, Anion Gap 13, BUN 39 H, Creatinine 1.50 H, Estim Creat Clear Calc 37.23, Est GFR (MDRD) Af Amer 46 L, Est GFR (MDRD) Non-Af 38 L, BUN/Creatinine Ratio 26.0 H, Glucose 327 H, Calcium 10.2 H, Troponin I High Sens 81 H 06/15/22 02:58: Troponin I High Sens 88 H 06/15/22 02:58: Triglycerides 143, Cholesterol 186, LDL Cholesterol 105, VLDL Cholesterol 29, HDL Cholesterol 52 Physical Exam Narrative GENERAL: Patient in bed HEENT: Atraumatic; normocephalic EYES; Anicteric, Normal Conjunctiva NECK; supple, normal thyroid, RESPIRATORY: Diminished to auscultation CARDIOVASCULAR: Regular S1 S2, GI: soft, normoactive bowel sounds, : No Renal angle tenderness; EXTREMITIES: No edema, no clubbing, MUSCULOSKELETAL: no muscle wasting NEURO: Awake; no lateralizing signs. SKIN: No Rash PSYCH; Flat affect Assessment & Plan Assessment/Plan (1) Chest pain: QUALIFIERS: Chest pain type: unspecified Qualified Code(s): R07.9 - Chest pain, unspecified (2) Tobacco abuse: (3) Essential hypertension: PLAN: Plan Patient is a 56-year-old lady admitted with chest pain 1. Chest pain ? Patient is on a monitored bed undergoing evaluation including serial cardiac enzymes D-dimer as well as nuclear stress test 2. Hyponatremia ? Secondary to patient being on HCTZ monitoring 3. Diabetes mellitus type II -patient's oral hypoglycemics held. Placed on long acting insulin, Accu-Cheks a.c. and at bedtime and covered with sliding scale insulin 4. Hypertension - Blood pressure controlled, home medications continued with dose adjustment as needed 5. Chronic back pain ? Patient to follow-up with PCP for chronic pain management 6. Tobacco dependence - Counseled on cessation, offered nicotine patch for tobacco cravings 7. DVT prophylaxis ?enoxaparin Charges/Coding Visit Charges OBSV E&M: 35469 Subsequent observation care L2
[2022-06-15] MEDS: Pantoprazole Sodium 40 MG Tablet PO (09:34)
[2022-06-15] MEDS: Loratadine 10 MG Tablet PO (09:34)
--- NOTE | 2022-06-15 10:22 | STRESSREP_ITS ---
Stress Test Report Date: 06/15/2022 Procedure: Pharmacologic stress nuclear imaging study Indications: Chest pain Consent: Per the patient Procedure: The patient underwent pharmacologic (Regadenoson 0.4mg ) evaluation with a peak heart rate of 104 beats per minute (63%predicted maximal heart rate) and a peak blood pressure of 119/81 mmHg. The baseline ECG demonstrated normal sinus rhythm with PACs. The peak pharmacologic ECG demonstrated normal sinus rhythm, no ischemic changes were noted. PACs were noted at baseline. This were also noted during infusion and in recovery. Rare PVC was noted. No complaint of chest discomfort during pharmacological infusion or in recovery. The patient was injected with 11.8 millicuries of technetium 99m Cardiolite and subsequently rest SPECT Cardiolite nuclear imaging was obtained in the horizontal long, vertical long, and short axis views. The patient underwent pharmacologic (Regadenoson) evaluation. The patient was injected with 35.1 millicuries of technetium 99m Cardiolite and subsequently stress SPECT Cardiolite nuclear imaging was obtained in the horizontal long, vertical long, and short axis views. A gated Cardiolite study at peak stress was obtained. The examination was stopped secondary to completion of protocol. Rest and stress SPECT Cardiolite nuclear imaging status post realignment, normalization, and attenuation correction demonstrate homogenous tracer distribution at rest. Significant movement artifact is noted. There may be small perfusion defect in the basal septum post Lexiscan. The reported LVEF is 51%. Impression: 1. Pharmacologic (Regadenoson) evaluation 2. Peak pharmacologic ECG with no ischemic changes. 3. Study is limited with significant movement artifact. 5. Comparison of rest and stress SPECT images show possible small reversible defect of the basal inferior septum. Clinical correlation is recommended. 6. The gated Cardiolite study reports an LVEF of 51%. This note was generated with [employer] software. It may contain incorrect words, spelling, and punctuation that were not noted in checking the note before signing.
[2022-06-15] MEDS: HYDROmorphone 1 MG/ML Syringe IV (11:05)
[2022-06-15 11:14] LABS: D-Dimer Quantitative (DVT/PE) 0.74 FEU/ug/m (0.27-0.49)
[2022-06-15 11:15] LABS: Bedside Glucose 166 mg/dL (74-106)
--- NOTE | 2022-06-15 11:16 | CT_ITS ---
STUDY: CTA CHEST REASON FOR EXAM: Female, 56 years old. Atypical chest pain, diaphoresis, elevated d-dimer RADIATION DOSAGE (If Supplied By Facility): CTDIvol = ( 10.43 ) mGy, DLP = ( 376.95 ) mGycm TECHNIQUE: The examination was performed with the intravenous administration of IV 75mL Isovue-370. Post-processing of the angiographic images was performed, with multiplanar reformation and 3D reconstruction. Individualized dose optimization techniques were used for this CT. COMPARISON: None. FINDINGS: Normal enhancement of the main pulmonary artery and right and left pulmonary arteries. Normal enhancement of the bilateral peripheral pulmonary arteries. There is no demonstrated pulmonary embolism. Normal thoracic aorta and visualized great vessels. There is no demonstrated aortic dissection. Normal heart and pericardium. There are calcifications of the coronary arteries. Normal mediastinum. Normal hilar regions. Normal visualized trachea and bronchi. The lungs are well expanded. Normal pulmonary parenchyma. Normal pleura. Normal chest wall structures. There are degenerative changes of thoracic spine. Normal visualized upper abdomen. CT/CTA Chest W/WO Contrast IMPRESSION: No demonstrated PE, or thoracic aortic aneurysm or dissection No acute pulmonary process Calcified coronary vessels Degenerative bony changes Electronically Signed: Nicolás Hendricks MD at 12:25 EDT ,
[2022-06-15] MEDS: Aspirin E.C. 81 MG Tablet PO (11:18)
[2022-06-15] MEDS: Empagliflozin 10 MG Tablet PO (11:18)
[2022-06-15 11:56] LABS: Troponin-I HS 86 pg/mL (3.0-54.0)
[2022-06-15 11:56] LABS: Bedside Glucose 276 mg/dL (74-106)
[2022-06-15] MEDS: 0.9% Normal Saline 1,000 ML 150 ML IV (12:19)
--- NOTE | 2022-06-15 12:34 | DS.PCM_ITS ---
Providers Date of Admission: 06/15/22 Date of Discharge: 06/15/22 Primary Care Physician: Gris Fofana NP Consultations 06/15/22 11:02 Consult: Cardiology Routine Consulting Provider: hSay Prater Reason for Consult: positive stress test EMERGENT Consult: No MD Notified: Yes Date Notified: 06/15/22 Time Notified: 11:02 Method of Notification: Text Reason For Visit: CHEST PAIN Diagnosis Discharge Diagnosis (1) Chest pain: Status: Acute Code(s): R07.9 - Chest pain, unspecified Qualifiers: Chest pain type: unspecified Qualified Code(s): R07.9 - Chest pain, unspecified (2) Tobacco abuse: Status: Acute Code(s): Z72.0 - Tobacco use (3) Essential hypertension: Status: Chronic Code(s): I10 - Essential (primary) hypertension Plan Patient is a 56-year-old lady admitted with chest pain 1. Chest pain ? Patient is on a monitored bed undergoing evaluation including serial cardiac enzymes D-dimer as well as nuclear stress test -Impression: 1.? Pharmacologic (Regadenoson) evaluation 2.? Peak pharmacologic ECG with no ischemic changes. 3.? Study is limited with significant movement artifact. 5.? Comparison of rest and stress SPECT images show possible small reversible defect of the basal inferior septum.? Clinical correlation is recommended. 6.? The gated Cardiolite study reports an LVEF of 51%. Patient stress test results was discussed with Dr. Prater he recommended repeat troponin which came back no change. He subsequently recommended optimization of medical therapy and for patient to follow-up as outpatient. ? Also did obtain D-dimer which came back positive patient subsequent underwent CT of the chest results are as below. No demonstrated PE, or thoracic aortic aneurysm or dissection No acute pulmonary process Calcified coronary vessels Degenerative bony changes. 2. Hyponatremia ? Secondary to patient being on HCTZ monitoring 3. Diabetes mellitus type II -patient's oral hypoglycemics held. Placed on long acting insulin, Accu-Cheks a.c. and at bedtime and covered with sliding scale insulin 4. Hypertension - Blood pressure controlled, home medications continued with dose adjustment as needed 5. Chronic back pain ? Patient to follow-up with PCP for chronic pain management 6. Tobacco dependence - Counseled on cessation, offered nicotine patch for tobacco cravings 7. DVT prophylaxis ?enoxaparin Medications at Discharge Home Medications insulin glargine 100 unit/mL (3 mL) subcutaneous pen 25 unit subcut BREAKFAST DIABETES 11/03/20 albuterol sulfate 90 mcg/actuation aerosol inhaler 2 puff inhalation Q6H PRN SOB 06/14/21 atorvastatin 80 mg tablet 80 mg PO QHS CHOLESTEROL 06/14/21 budesonide-formoterol HFA 160 mcg-4.5 mcg/actuation aerosol inhaler (Symbicort) 2 puff inhalation BID ASTHMA 06/14/21 pantoprazole 40 mg tablet,delayed release 40 mg PO DAILY GERD 06/14/21 tizanidine 4 mg capsule 4 mg PO BID PRN Muscle Pain 06/14/21 amitriptyline 100 mg tablet 100 mg PO QHS sleep 11/27/21 ipratropium 0.5 mg-albuterol 3 mg (2.5 mg base)/3 mL nebulization soln 3 ml inhalation 4X/DAY PRN sob 11/27/21 loratadine 10 mg tablet 10 mg PO DAILY allergies 11/27/21 insulin lispro 100 unit/mL subcutaneous pen (Humalog KwikPen (U-100) Insulin) 8 unit subcut BID DM 12/26/21 acetaminophen 500 mg tablet 1,000 mg PO Q8H PRN Pain 02/22/22 empagliflozin 10 mg tablet (Jardiance) 10 mg PO DAILY DM 02/22/22 lisinopril 20 mg-hydrochlorothiazide 25 mg tablet 1 tab PO DAILY Check with primary doctor 04/23/22 Physical Exam Narrative GENERAL: Patient in bed HEENT: Atraumatic; normocephalic EYES; Anicteric, Normal Conjunctiva NECK; supple, normal thyroid, RESPIRATORY: Diminished to auscultation CARDIOVASCULAR: Regular S1 S2, GI: soft, normoactive bowel sounds, : No Renal angle tenderness; EXTREMITIES: No edema, no clubbing, MUSCULOSKELETAL: no muscle wasting NEURO: Awake; no lateralizing signs. SKIN: No Rash PSYCH; Flat affect Weight / BMI Weight Weight: 59.8 kg Body Mass Index (BMI) 25.7 ABG / Lab / Microbiology Data Result Diagrams: 06/15/22 01:20 06/15/22 01:20 Laboratory: Laboratory Results - last 24 hr 06/15/22 01:20: WBC 9.9, RBC 4.77, Hgb 13.9, Hct 40.6, MCV 85.1, MCH 29.1, MCHC 34.2, RDW Std Deviation 45.8 H, RDW Coeff of Yudelka 14.7 H, Plt Count 306, MPV 12.1 H, Immature Gran % (Auto) 0.300, Neut % (Auto) 64.0, Lymph % (Auto) 27.3, [place] % (Auto) 7.7, Eos % (Auto) 0.4, Baso % (Auto) 0.3, Absolute Neuts (auto) 6.3, Absolute Lymphs (auto) 2.69, Nucleated RBC % 0 06/15/22 01:20: Sodium 132 L, Potassium 3.5, Chloride 97 L, Carbon Dioxide 22.0, Anion Gap 13, BUN 39 H, Creatinine 1.50 H, Estim Creat Clear Calc 37.23, Est GFR (MDRD) Af Amer 46 L, Est GFR (MDRD) Non-Af 38 L, BUN/Creatinine Ratio 26.0 H, Glucose 327 H, Calcium 10.2 H, Troponin I High Sens 81 H 06/15/22 02:58: Troponin I High Sens 88 H 06/15/22 02:58: Triglycerides 143, Cholesterol 186, LDL Cholesterol 105, VLDL Cholesterol 29, HDL Cholesterol 52 06/15/22 06:16: POC Glucose 276 H 06/15/22 10:30: D-Dimer Quant (PE/DVT) 0.74 H* 06/15/22 10:30: Troponin I High Sens 86 H 06/15/22 10:55: POC Glucose 166 H Radiography Diagnostic Testing: Radiology Impression Chest X-Ray 06/15/22 05:52 IMPRESSION: Normal x-ray examination of the chest. Electronically Signed: Nicolás Hendricks MD at 8:30 EDT , Chest CTA 06/15/22 11:16 IMPRESSION: No demonstrated PE, or thoracic aortic aneurysm or dissection No acute pulmonary process Calcified coronary vessels Degenerative bony changes Electronically Signed: Nicolás Hendricks MD at 12:25 EDT , D/C Instructions Discharge Diet: No restrictions Discharge Activity: Return to Normal Activity Call your doctor if you observe: Fever of 101 or Higher, Shortness of breath, Fainting spells and Chest pain Meaningful Use Info Meaningful Use Diagnoses (Choose all that apply): None applicable Discharge Plan Admission Admit Date/Time: 06/15/22 03:43 Attending Provider: Simeon Kenny Primary Care Provider: Gris Fofana POISON INFORMATION SPECIALIST Consulting Providers: Harris Serrano ; Shay Prater Discharge Orders/Prescriptions Prescriptions: Continued atorvastatin 80 mg tablet 80 mg PO QHS budesonide-formoterol [Symbicort] 160-4.5 mcg/actuation HFA aerosol inhaler 2 puff inhalation BID albuterol sulfate 90 mcg/actuation HFA aerosol inhaler 2 puff inhalation Q6H PRN (Reason: SOB) pantoprazole 40 mg tablet,delayed release (DR/EC) 40 mg PO DAILY tizanidine 4 mg capsule 4 mg PO BID PRN (Reason: Muscle Pain) insulin glargine 100 unit/mL (3 mL) insulin pen 25 unit SC BREAKFAST ipratropium-albuterol 0.5 mg-3 mg(2.5 mg base)/3 mL solution for nebulization 3 ml inhalation 4X/DAY PRN (Reason: sob) amitriptyline 100 mg tablet 100 mg PO QHS Label Comments: take 1 tablet by oral route at bedtime per day loratadine 10 mg tablet 10 mg PO DAILY insulin lispro [Humalog KwikPen Insulin] 100 unit/mL insulin pen 8 unit subcut BID Protocol: 4. Sliding Scale Insulin High-Med Dosing Condition: 150-199 mg/dl = 2 units Condition: 200-259 mg/dl = 4 units Condition: 260-324 mg/dl = 6 units Condition: 325-374 mg/dl = 8 units Condition: 375-409 mg/dl = 10 units Condition: 410-449 mg/dl = 11 units Condition: Greater than 449 call physician Protocol Text: - Use for Total Daily Dose of Insulin 56-80 units - Patient who are insulin resistant or septic HIGH MEDIUM DOSING ALGORITHM Jardiance 10 mg tablet 10 mg PO DAILY Label Comments: TAKE 1 TABLET BY MOUTH EVERY MORNING acetaminophen 500 mg tablet 1,000 mg PO Q8H PRN (Reason: Pain) lisinopril-hydrochlorothiazide 20-25 mg tablet 1 tab PO DAILY Label Comments: TAKE TWO (2) TABLETS BY MOUTH ONCE DAILY Referrals / Follow Up: Gris Fofana POISON INFORMATION SPECIALIST, POISON INFORMATION SPECIALIST-C [Primary Care Provider] - Within 1 Week Disposition Disposition (needs filled in before D/C Order can be placed): Home, Self Care Charges/Coding Visit Charges OBSV E&M: 02326 Observation care discharge
== END 2022-06-15 12:34 | disposition home or self-care (01) ==
LOC: ED 01:00 → PCU 04:00
PROVIDERS: Admitting Provider Hospitalist; Emergency Provider Emergency Medicine; PCP Nurse Practitioner Primary Care; Visit Provider Internal Medicine
DX: R07.9 Chest pain, unspecified (principal); J44.9 Chronic obstructive pulmonary disease, unspecified; Z79.4 Long term (current) use of insulin; E11.9 Type 2 diabetes mellitus without complications; R77.8 Other specified abnormalities of plasma proteins; E87.1 Hypo-osmolality and hyponatremia; I10 Essential (primary) hypertension; I25.10 Atherosclerotic heart disease of native coronary artery without angina pectoris; E78.00 Pure hypercholesterolemia, unspecified; M19.90 Unspecified osteoarthritis, unspecified site; K21.9 Gastro-esophageal reflux disease without esophagitis; M48.061 Spinal stenosis, lumbar region without neurogenic claudication; M54.50 Low back pain, unspecified; G89.29 Other chronic pain; M54.2 Cervicalgia; G47.30 Sleep apnea, unspecified; E66.9 Obesity, unspecified; F17.210 Nicotine dependence, cigarettes, uncomplicated; Z68.25 Body mass index [BMI] 25.0-25.9, adult; Z68.22 Body mass index [BMI] 22.0-22.9, adult; Z79.899 Other long term (current) drug therapy; Z79.84 Long term (current) use of oral hypoglycemic drugs; Z98.1 Arthrodesis status; Z79.51 Long term (current) use of inhaled steroids
CPT/HCPCS: 71045; 71275; 78452; 80048; 80061; 82962; 84484; 85025; 85379; 93005; 93017; 96361; 96374; 96375; 96376; 99218; 99285; 99406; A9500; J7030; Q9967; A4216; G0378; J2785

== ENCOUNTER 2022-06-25 08:55 | Emergency (ER) | payer MEDICAID, SELFPAY ==
[2022-06-25 08:56] VITALS: BP 154/86; PULSE 79; RESP 15; TEMP 36.3; O2SAT 96; BMI 27.2
--- NOTE | 2022-06-25 09:10 | ED.VIS.BACK ---
HPI History of Present Illness Chief Complaint: Back Detail of Chief Complaint: Back pain Informant: patient Narrative Narrative: Patient presents to the ER with complaint of back pain that is chronic. Patient states that she had surgery in September by Dr. Medellin to have a fusion of her lumbar spine. Patient states in April of this year she had x-rays that showed that some of the screws and rods were displaced and she is currently being evaluated by a back surgeon at the [facility] who initially had planned on doing surgery this month. Patient was told she needed to lower her A1c. Patient also scheduled to see pain management on the of this month. Patient had been chronically getting 10 mg of oxycodone for her pain but with her last prescription was changed to 5 mg tablets and she ran out when she was having pain that required her to take the 10 mg dosage. Patient feels like at times her legs want to give out which is chronic issue. Patient not has not fallen recently. She denies weakness in extremities or change in bowel or bladder function otherwise. Prior similar symptoms: Yes PFSH PFSH Medical History Anxiety Arthritis Asthma Back pain Back pain Back pain Cardiology follow-up encounter Chronic neck and back pain COPD (chronic obstructive pulmonary disease) Coronary artery calcification seen on CAT scan CPAP (continuous positive airway pressure) dependence Depression Diabetes Dietary restriction Difficulty balancing Essential hypertension Gastric reflux High cholesterol History of arthritis History of echocardiogram History of edema History of pain when walking History of renal disease History of stomach ulcers History of stress test Hyperlipidemia Hypertension Injury of head and neck Insulin dependent diabetes mellitus Knee pain Lumbar stenosis Obesity Osteomyelitis Shortness of breath on exertion Shoulder pain Sleep apnea Smoker Spinal fusion failure Strain of muscle, fascia and tendon of pelvis, initial encounter Strain of right hip and thigh Strain of right inguinal region Strain of unspecified muscles, fascia and tendons at thigh level, right thigh, initial encounter Syncope Thyroid disease Type 2 diabetes mellitus Walker as ambulation aid Wears glasses Home Medications insulin glargine 100 unit/mL (3 mL) subcutaneous pen 25 unit subcut BREAKFAST DIABETES 11/03/20 [History Last Taken 06/14/22] albuterol sulfate 90 mcg/actuation aerosol inhaler 2 puff inhalation Q6H PRN SOB 06/14/21 [History Last Taken 06/14/22] atorvastatin 80 mg tablet 80 mg PO QHS CHOLESTEROL 06/14/21 [History Last Taken 06/13/22] budesonide-formoterol HFA 160 mcg-4.5 mcg/actuation aerosol inhaler (Symbicort) 2 puff inhalation BID ASTHMA 06/14/21 [History Last Taken 12/25/21] pantoprazole 40 mg tablet,delayed release 40 mg PO DAILY GERD 06/14/21 [History Last Taken 06/14/22] tizanidine 4 mg capsule 4 mg PO BID PRN Muscle Pain 06/14/21 [History Last Taken 06/13/22] amitriptyline 100 mg tablet 100 mg PO QHS sleep 11/27/21 [History Last Taken 12/25/21] ipratropium 0.5 mg-albuterol 3 mg (2.5 mg base)/3 mL nebulization soln 3 ml inhalation 4X/DAY PRN sob 11/27/21 [History Last Taken 11/25/21] loratadine 10 mg tablet 10 mg PO DAILY allergies 11/27/21 [History Last Taken 02/21/22] insulin lispro 100 unit/mL subcutaneous pen (Humalog KwikPen (U-100) Insulin) 8 unit subcut BID DM 12/26/21 [History Last Taken Unknown] acetaminophen 500 mg tablet 1,000 mg PO Q8H PRN Pain 02/22/22 [History Last Taken 06/14/22] empagliflozin 10 mg tablet (Jardiance) 10 mg PO DAILY DM 02/22/22 [History Last Taken 02/21/22] lisinopril 20 mg-hydrochlorothiazide 25 mg tablet 1 tab PO DAILY Check with primary doctor 04/23/22 [History Last Taken 06/14/22] oxycodone-acetaminophen 5 mg-325 mg tablet 1 tab PO Q6H PRN PRN Pain 2 days #10 TABLETS 06/25/22 [Rx Last Taken Unknown] Allergy/AdvReac Type Severity Reaction Status Date / Time duloxetine [From Cymbalta] Allergy Unknown Verified 06/25/22 08:59 pregabalin [From Lyrica] Allergy Unknown Verified 06/25/22 08:59 Penicillins AdvReac Mild leaves a Verified 06/25/22 08:59 bad taste in her mouth. NSAIDS (Non-Steroidal AdvReac Upset Verified 06/25/22 08:59 Anti-Inflamma Stomach Family History Father Cancer Unclear type. Mother Lung cancer Concurrent tobacco use history. Surgical History History of ankle surgery History of History of carpal tunnel release History of hysterectomy History of open reduction and internal fixation (ORIF) procedure History of partial thyroidectomy Social History household members: none Smoking Status: Current every day smoker tobacco type: cigarettes alcohol intake: never substance use type: does not use ROS ROS ED Review of Systems ROS Unobtainable: other Constitutional Constitutional ED: Reports lethargy; Denies chills, fever(s), sweats or weight loss Eyes Eyes: Denies blurry vision, change in vision or diplopia ENT ENT ED: Denies rhinorrhea or sore throat Cardiovascular Cardiovascular: Denies chest pain, orthopnea or racing heartbeat Respiratory/Chest Respiratory/Chest: Denies cough, dyspnea, dyspnea on exertion, orthopnea or sputum Gastrointestinal Gastrointestinal: Denies abdominal pain, diarrhea, nausea or vomiting Genitourinary Genitourinary ED: Denies dysuria, hematuria or urinary frequency Musculoskeletal Musculoskeletal: Reports back pain; Denies arthralgias, myalgias or neck pain Integumentary Denies abscess, Abrasions or rash Neurologic Neurologic: Denies headache(s) or weakness Psychiatric Psychiatric: Denies anxiety, depression or suicidal thoughts Endocrine Endocrinology: Denies polydipsia, polyphagia or polyuria Hematologic/Lymphatic Hematologic/Lymphatic: Denies easy bleeding, easy bruising or lymphadenopathy Allergic/Immunologic Allergic/Immunologic ED: Denies mouth swelling, tongue swelling or urticaria EXAM Physical Exam Const Vital Signs: 06/25/22 08:56 Temperature 97.3 F L Temperature Source Oral Pulse Rate 79 Respiratory Rate 15 Blood Pressure 154/86 H Blood Pressure Mean 108 Pulse Ox 96 Oxygen Delivery Method Room Air Positive well nourished and well developed General Appearance ED: well developed and NAD HEENT Reports TM's clear and moist mucous membranes normocephalic and atraumatic; Negative for trauma or tenderness Tympanic Membrane ED: Yes TM's clear Eyes PERRL and EOMs intact bilaterally General Eye ED: Negative for pale conjunctiva or scleral icterus Neck no lymphadenopathy, supple and no JVD General: Negative for tenderness Chest Wall inspection of chest normal and palpation of chest normal Chest: Negative for tenderness Resp normal respiratory effort and clear to auscultation bilaterally Effort and Inspection: Negative for respiratory distress or pain with movement Auscultation: Negative for rhonchi, wheezes or diminished lung sounds Cardio regular rate, regular rhythm, S1 normal heart sound, S2 normal heart sound and no murmurs Peripheral Pulses: pulses 2+ throughout GI normal to inspection, nondistended, normoactive bowel sounds, soft to palpation, non-tender, non-distended and no masses Back/Spine no CVA tenderness Back/Spine Narrative: Patient has diffuse tenderness palpation over lumbar spine and lumbar paraspinal musculature. Patient has negative straight leg raises. Deep tendon reflexes are plus 1 out of 4 bilaterally at the patella and Achilles. Patient has normal 5 extension bilaterally. Patient has normal sensation to light touch. Extremity normal to inspection General Extremety ED: Negative for edema General Extremity: Negative for edema Neuro oriented x3, CN's II-XII intact bilaterally, no sensory deficits noted and gait normal Sensorium / Orientation: awake, alert, oriented to person, oriented to place and oriented to time Motor Exam: strength 5/5 throughout and strength abnormal Psych mental status grossly normal Skin no rashes or lesions noted and no wounds MDM MDM MDM Narrative Medical decision making narrative: Patient presents with acute exacerbation of her chronic back pain. Patient is scheduled to see her primary care physician tomorrow. I will give her a dose of IM Dilaudid 1 mg in the emergency department. I will write her for short supply of oxycodone until she can make her appointment tomorrow. Patient advised to keep her appointment with pain management and her orthopedic surgeon. Discharge Plan Triage Chief Complaint: Back ED Provider: Elías Johansen Dx/Rx/DC Orders Clinical Impression: Back pain Instructions: ED Back Pain (Acute or Chronic) Prescriptions: New oxycodone-acetaminophen [oxycodone-acetaminophen] 5-325 mg tablet 1 tab PO Q6H PRN PRN (Reason: Pain) 2 Days Qty: 10 0RF No Action atorvastatin 80 mg tablet 80 mg PO QHS budesonide-formoterol [Symbicort] 160-4.5 mcg/actuation HFA aerosol inhaler 2 puff inhalation BID albuterol sulfate 90 mcg/actuation HFA aerosol inhaler 2 puff inhalation Q6H PRN (Reason: SOB) pantoprazole 40 mg tablet,delayed release (DR/EC) 40 mg PO DAILY tizanidine 4 mg capsule 4 mg PO BID PRN (Reason: Muscle Pain) insulin glargine 100 unit/mL (3 mL) insulin pen 25 unit SC BREAKFAST ipratropium-albuterol 0.5 mg-3 mg(2.5 mg base)/3 mL solution for nebulization 3 ml inhalation 4X/DAY PRN (Reason: sob) amitriptyline 100 mg tablet 100 mg PO QHS Label Comments: take 1 tablet by oral route at bedtime per day loratadine 10 mg tablet 10 mg PO DAILY insulin lispro [Humalog KwikPen Insulin] 100 unit/mL insulin pen 8 unit subcut BID Protocol: 4. Sliding Scale Insulin High-Med Dosing Condition: 150-199 mg/dl = 2 units Condition: 200-259 mg/dl = 4 units Condition: 260-324 mg/dl = 6 units Condition: 325-374 mg/dl = 8 units Condition: 375-409 mg/dl = 10 units Condition: 410-449 mg/dl = 11 units Condition: Greater than 449 call physician Protocol Text: - Use for Total Daily Dose of Insulin 56-80 units - Patient who are insulin resistant or septic HIGH MEDIUM DOSING ALGORITHM Jardiance 10 mg tablet 10 mg PO DAILY Label Comments: TAKE 1 TABLET BY MOUTH EVERY MORNING acetaminophen 500 mg tablet 1,000 mg PO Q8H PRN (Reason: Pain) lisinopril-hydrochlorothiazide 20-25 mg tablet 1 tab PO DAILY Label Comments: TAKE TWO (2) TABLETS BY MOUTH ONCE DAILY Primary Care Provider: Gris Fofana NP Referrals: Gris Fofana NP, CATHETERIZATION LABORATORY TECHNICIAN-C [Primary Care Provider] - Disposition Disposition: Home, Self Care
[2022-06-25] MEDS: HYDROmorphone 1 MG/ML Syringe IM (09:18)
== END 2022-06-25 09:40 | disposition home or self-care (01) ==
LOC: ED 09:31
PROVIDERS: Emergency Provider Emergency Medicine; PCP Nurse Practitioner Primary Care; Visit Provider Emergency Medicine
DX: M54.9 Dorsalgia, unspecified (principal); J44.9 Chronic obstructive pulmonary disease, unspecified; Z79.4 Long term (current) use of insulin; E11.9 Type 2 diabetes mellitus without complications; E78.5 Hyperlipidemia, unspecified; G89.29 Other chronic pain; Z98.1 Arthrodesis status; I10 Essential (primary) hypertension; I25.10 Atherosclerotic heart disease of native coronary artery without angina pectoris
CPT/HCPCS: 96372; 99284

== ENCOUNTER → 2022-06-28 | Outpatient (CLI) | payer MEDICAID, SELFPAY ==
[2022-06-28 10:41] LABS: Insulin 13.3 mU/L (2.6-37.6)
[2022-06-28 11:04] LABS: ALB/GLOB Ratio 0.8 RATIO (0.9-2.4); AST(SGOT) 15 U/L (15-37); Alanine Aminotransfer ALT/SGPT 18 U/L (13-56); Albumin, Serum 3.2 g/dL (3.2-5.0); Alkaline Phosphatase 111 U/L (45-117); Anion Gap 5 (5-15); BUN 22 mg/dL (7-18); BUN/Creat Ratio 17.5 RATIO (10-20); Calcium,Total 9.7 mg/dL (8.5-10.1); Chloride 101 mmol/L (98-107); Creatinine, Serum 1.26 mg/dL (0.55-1.02); EST Glomerular Filtration Rate 46 mL/min (>60); Est Glom Filt Rate - Afr Amer 56 mL/min (>60); Globulin 4.2 g/dL (2.2-4.2); Glucose 456 mg/dL (74-106); Potassium 4.4 mmol/L (3.5-5.1); Protein, Total 7.4 g/dL (6.4-8.2); Sodium Level 131 mmol/L (136-145)
== END | disposition home or self-care (01) ==
PROVIDERS: PCP Nurse Practitioner Primary Care; Visit Provider Nurse Practitioner Primary Care
DX: E11.9 Type 2 diabetes mellitus without complications (principal)
CPT/HCPCS: 36415; 80053; 83525; 84681

== ENCOUNTER 2022-07-22 11:25 | Emergency (ER) | payer MEDICAID, SELFPAY ==
[2022-07-22 11:26] VITALS: BP 113/92; PULSE 96; RESP 14; TEMP 36.6; O2SAT 99; BMI 25.7
[2022-07-22 13:56] LABS: Mucous, Urine 0 SEEN /hpf (<or=2+)
[2022-07-22 14:02] LABS: Color, Urine Yellow (Yellow); Glucose, Dipstick 1000 mg/dl (Normal); Ketone-Dipstick 5 mg/dl (Negative); Leukocyte Esterase-Dipstick 500 /ul (Negative); Nitrite-Dipstick Positive (Negative); Occult Blood-Urine 25 /ul (Negative); Protein-Dipstick 30 mg/dl (Negative); Specific Gravity, Urine 1.015 (1.002-1.030); Urine Bilirubin Dipstick Negative (Negative); Urine Clarity Sl. Cloudy (Clear); Urine Urobilinogen Normal (Normal)
[2022-07-22 14:16] LABS: Bacteria 1+ /hpf (None Seen); Red Blood Cells-Urine 0-5 SEEN /hpf (0-5); Squamous Epithelial Cells - UA 0-5 SEEN /hpf (5-10); White Blood Cells 25-50 SEEN /hpf (0-5)
--- NOTE | 2022-07-22 14:41 | ED.VIS.BACK ---
HPI History of Present Illness Chief Complaint: Back Narrative Narrative: Patient is presenting with chronic back pain. She sees back surgery for this. She had surgery with our surgeon but now she is being seen at [facility]. No new symptoms other than her back pain is getting worse. She has no radiation no other radicular symptoms no bowel or bladder compromise or urinary retention symptoms PFSH PFS Medical History Anxiety Arthritis Asthma Back pain Back pain Back pain Cardiology follow-up encounter Chronic neck and back pain COPD (chronic obstructive pulmonary disease) Coronary artery calcification seen on CAT scan CPAP (continuous positive airway pressure) dependence Depression Diabetes Dietary restriction Difficulty balancing Essential hypertension Gastric reflux High cholesterol History of arthritis History of echocardiogram History of edema History of pain when walking History of renal disease History of stomach ulcers History of stress test Hyperlipidemia Hypertension Injury of head and neck Insulin dependent diabetes mellitus Knee pain Lumbar stenosis Obesity Osteomyelitis Shortness of breath on exertion Shoulder pain Sleep apnea Smoker Spinal fusion failure Strain of muscle, fascia and tendon of pelvis, initial encounter Strain of right hip and thigh Strain of right inguinal region Strain of unspecified muscles, fascia and tendons at thigh level, right thigh, initial encounter Syncope Thyroid disease Type 2 diabetes mellitus Walker as ambulation aid Wears glasses Home Medications insulin glargine 100 unit/mL (3 mL) subcutaneous pen 25 unit subcut BREAKFAST DIABETES 11/03/20 [History Last Taken 06/14/22] albuterol sulfate 90 mcg/actuation aerosol inhaler 2 puff inhalation Q6H PRN SOB 06/14/21 [History Last Taken 06/14/22] atorvastatin 80 mg tablet 80 mg PO QHS CHOLESTEROL 06/14/21 [History Last Taken 06/13/22] budesonide-formoterol HFA 160 mcg-4.5 mcg/actuation aerosol inhaler (Symbicort) 2 puff inhalation BID ASTHMA 06/14/21 [History Last Taken 12/25/21] pantoprazole 40 mg tablet,delayed release 40 mg PO DAILY GERD 06/14/21 [History Last Taken 06/14/22] tizanidine 4 mg capsule 4 mg PO BID PRN Muscle Pain 06/14/21 [History Last Taken 06/13/22] amitriptyline 100 mg tablet 100 mg PO QHS sleep 11/27/21 [History Last Taken 12/25/21] ipratropium 0.5 mg-albuterol 3 mg (2.5 mg base)/3 mL nebulization soln 3 ml inhalation 4X/DAY PRN sob 11/27/21 [History Last Taken 11/25/21] loratadine 10 mg tablet 10 mg PO DAILY allergies 11/27/21 [History Last Taken 02/21/22] insulin lispro 100 unit/mL subcutaneous pen (Humalog KwikPen (U-100) Insulin) 8 unit subcut BID DM 12/26/21 [History Last Taken Unknown] acetaminophen 500 mg tablet 1,000 mg PO Q8H PRN Pain 02/22/22 [History Last Taken 06/14/22] empagliflozin 10 mg tablet (Jardiance) 10 mg PO DAILY DM 02/22/22 [History Last Taken 02/21/22] lisinopril 20 mg-hydrochlorothiazide 25 mg tablet 1 tab PO DAILY Check with primary doctor 04/23/22 [History Last Taken 06/14/22] oxycodone-acetaminophen 5 mg-325 mg tablet 1 tab PO Q6H PRN PRN Pain 2 days #10 TABLETS 06/25/22 [Rx Last Taken Unknown] varenicline 0.5 mg tablet 0.5 mg PO BID 07/22/22 [History Last Taken Unknown] Allergy/AdvReac Type Severity Reaction Status Date / Time duloxetine [From Cymbalta] Allergy Unknown Verified 07/22/22 11:29 pregabalin [From Lyrica] Allergy Unknown Verified 07/22/22 11:29 Penicillins AdvReac Mild leaves a Verified 07/22/22 11:29 bad taste in her mouth. NSAIDS (Non-Steroidal AdvReac Upset Verified 07/22/22 11:29 Anti-Inflamma Stomach Family History Father Cancer Unclear type. Mother Lung cancer Concurrent tobacco use history. Surgical History History of ankle surgery History of History of carpal tunnel release History of hysterectomy History of open reduction and internal fixation (ORIF) procedure History of partial thyroidectomy Social History household members: none Smoking Status: Current every day smoker tobacco type: cigarettes alcohol intake: never substance use type: does not use ROS ROS ED ROS Narrative Past medical history: Reviewed, it is quite extensive includes chronic back pain, kidney injury diabetes CAD, hyperlipidemia Medications: Reviewed in [employer] and at that Social history: Noncontributory Review of systems: All systems negative except as indicated General: No fever Eyes: No visual changes ENT: No upper airway congestion, normal voice Neck: No neck pain Cardiovascular: No chest pain Respiratory: No shortness of breath or cough Gastrointestinal: No abdominal pain, nausea vomiting or diarrhea Genitourinary: No dysuria Musculoskeletal: Back pain as in HPI Skin: No rash Neurological: No weakness or paresthesias. Psych: No recent behavioral changes Hematologic: No easy bleeding or easy bruising EXAM Physical Exam Narrative Exam Narrative: Vitals reviewed General: Patient appears in some discomfort HEENT: Moist mucous membranes Neck: Nontender Cardiovascular normal heart rate Respiratory: No respiratory difficulty speaking in full sentences Abdomen: Soft and nontender, there is no suprapubic mass or pain Back: There is some tenderness over the lumbar region, pain is spinal and paraspinal both. Midline scars are clean dry and intact. They are old. Extremities: Moves all extremities without joint pain or signs of trauma Neurological: There is normal plantar flexion and dorsiflexion of both feet and great toes. Patellar and Achilles reflexes are normal. Normal strength and sensation. Negative straight leg test. Skin: No rash Psychiatric: Slightly anxious. Const Vital Signs: 07/22/22 11:26 Temperature 97.8 F Temperature Source Temporal Pulse Rate 96 Respiratory Rate 14 Blood Pressure 113/92 H Blood Pressure Mean 99 Pulse Ox 99 Oxygen Delivery Method Room Air MDM MDM MDM Narrative Medical decision making narrative: Patient will be treated with analgesia in the emergency department. I will send her urine for culture so she has some leukoesterase but no other evidence of infection. She was told to get her sugar under control. Patient has had multiple opiate analgesics from emergency departments and multiple other prescribers. I told her she will not be getting any opiates prescriptions from the emergency department today. She technically now has 2 surgeon she can call for this. She will get 10 mg of oxycodone from the ED Lab Data Labs: Laboratory Results - last 24 hr 07/22/22 13:45 Urine Color Yellow Urine Clarity Sl. Cloudy Urine pH 5.0 Ur Specific Duncan 1.015 Urine Protein 30 H Urine Glucose (UA) 1000 H Urine Ketones 5 H Urine Occult Blood 25 H Urine Nitrite Positive H Urine Bilirubin Negative Urine Urobilinogen Normal Ur Leukocyte Esterase 500 H Urine RBC 0-5 SEEN Urine WBC 25-50 SEEN Ur Squamous Epith Cells 0-5 SEEN Urine Bacteria 1+ Urine Mucus 0 SEEN Discharge Plan Triage Chief Complaint: Back ED Provider: Delon Norton Dx/Rx/DC Orders Clinical Impression: Acute back pain, Tobacco abuse, Degenerative disc disease, lumbar Instructions: Back Safety Bed, ED Pain, Acute, Uncertain Cause Prescriptions: No Action atorvastatin 80 mg tablet 80 mg PO QHS budesonide-formoterol [Symbicort] 160-4.5 mcg/actuation HFA aerosol inhaler 2 puff inhalation BID albuterol sulfate 90 mcg/actuation HFA aerosol inhaler 2 puff inhalation Q6H PRN (Reason: SOB) pantoprazole 40 mg tablet,delayed release (DR/EC) 40 mg PO DAILY tizanidine 4 mg capsule 4 mg PO BID PRN (Reason: Muscle Pain) insulin glargine 100 unit/mL (3 mL) insulin pen 25 unit SC BREAKFAST ipratropium-albuterol 0.5 mg-3 mg(2.5 mg base)/3 mL solution for nebulization 3 ml inhalation 4X/DAY PRN (Reason: sob) amitriptyline 100 mg tablet 100 mg PO QHS Label Comments: take 1 tablet by oral route at bedtime per day loratadine 10 mg tablet 10 mg PO DAILY insulin lispro [Humalog KwikPen Insulin] 100 unit/mL insulin pen 8 unit subcut BID Protocol: 4. Sliding Scale Insulin High-Med Dosing Condition: 150-199 mg/dl = 2 units Condition: 200-259 mg/dl = 4 units Condition: 260-324 mg/dl = 6 units Condition: 325-374 mg/dl = 8 units Condition: 375-409 mg/dl = 10 units Condition: 410-449 mg/dl = 11 units Condition: Greater than 449 call physician Protocol Text: - Use for Total Daily Dose of Insulin 56-80 units - Patient who are insulin resistant or septic HIGH MEDIUM DOSING ALGORITHM Jardiance 10 mg tablet 10 mg PO DAILY Label Comments: TAKE 1 TABLET BY MOUTH EVERY MORNING acetaminophen 500 mg tablet 1,000 mg PO Q8H PRN (Reason: Pain) lisinopril-hydrochlorothiazide 20-25 mg tablet 1 tab PO DAILY Label Comments: TAKE TWO (2) TABLETS BY MOUTH ONCE DAILY oxycodone-acetaminophen [oxycodone-acetaminophen] 5-325 mg tablet 1 tab PO Q6H PRN PRN (Reason: Pain) 2 Days Qty: 10 0RF varenicline [Chantix] 0.5 mg Tablet 0.5 mg PO BID Primary Care Provider: Gris Fofana NP Referrals: Gris Fofana NP, [employer] [Primary Care Provider] - Activity Restrictions/Additional Instructions: We cannot prescribe any opiate pain medications from the emergency department today. You have had multiple prescribers and multiple visits. This is against the [facility] law. You must follow-up with your surgeons for pain medications at home. Disposition Disposition: Home, Self Care
[2022-07-22 14:49] VITALS: RESP 16
[2022-07-22] MEDS: oxyCODONE 5 MG Tablet 10 MG PO (14:53)
== END 2022-07-22 14:59 | disposition home or self-care (01) ==
LOC: ED 14:54
PROVIDERS: Emergency Provider Emergency Medicine; PCP Nurse Practitioner Primary Care; Visit Provider Emergency Medicine
DX: M54.9 Dorsalgia, unspecified (principal); J44.9 Chronic obstructive pulmonary disease, unspecified; E11.9 Type 2 diabetes mellitus without complications; Z79.4 Long term (current) use of insulin; I25.10 Atherosclerotic heart disease of native coronary artery without angina pectoris; E78.5 Hyperlipidemia, unspecified; Z72.0 Tobacco use; E78.00 Pure hypercholesterolemia, unspecified; M51.36 Other intervertebral disc degeneration, lumbar region; G89.29 Other chronic pain; I10 Essential (primary) hypertension
CPT/HCPCS: 81001; 87077; 87086; 87088; 87186; 99283

== ENCOUNTER 2022-07-24 17:17 | Emergency (ER) | payer MEDICAID, SELFPAY ==
[2022-07-24 17:18] VITALS: BP 194/98; PULSE 97; RESP 18; TEMP 35.9; O2SAT 99; BMI 26.0
--- NOTE | 2022-07-24 19:22 | CT_ITS ---
STUDY: CT LUMBAR SPINE WITHOUT CONTRAST REASON FOR EXAM: Female, 56 years old. Acute on chronic pain. History of osteomyelitis of the spine. RADIATION DOSAGE (If Supplied By Facility): CTDIvol = ( 14.18 ) mGy, DLP = ( 418.99 ) mGycm TECHNIQUE: The patient was scanned in a multi detector CT scanner. High resolution transaxial imaging was performed. Images were obtained from L1 to the sacral. Sagittal and coronal images were reconstructed. Individualized dose optimization techniques were used for this CT. COMPARISON: Lumbar spine, April 21, 2022. CT of the lumbar spine, April 22, 2022. FINDINGS: Normal lumbar lordosis. There is no substantial scoliosis. Normal alignment of the lumbar vertebral bodies. Again seen is posterior fusion of L4-5. No change in position of the hardware or disc spacer. Again seen are erosive changes and sclerosis of the inferior endplate of L4 and superior endplate of L5 which appear unchanged from prior exam. There is worsening compression deformity of the superior endplate of T12 when compared to the earlier study. L1-2: Normal endplates. Normal disc height and morphology. While arthrosis of the bilateral facet joints. Normal central canal and bilateral lateral recesses. Normal bilateral intervertebral neural foramina. L2-3: Normal endplates. Normal disc height and morphology. Arthrosis of the bilateral facet joints. Normal central canal and bilateral lateral recesses. Normal bilateral intervertebral neural foramina. L3-4: There is a Schmorl''s node and sclerosis in the inferior endplate of L3. There is sclerosis along the superior endplate of L4. Endplate spondylosis. Mild loss of disc height with mild bulging annulus. Facet joint degenerative change.. Normal central canal and bilateral lateral recesses. Normal bilateral intervertebral neural foramina. L4-5: Surgical fusion of the disc space. There is endplate sclerosis and erosion without change in position of the disc spacer. There is partial laminectomy at L4. Normal central canal and bilateral lateral recesses. Normal bilateral intervertebral neural foramina. L5-S1: Normal endplates. Bulging annulus. Facet joint degenerative change. Normal central canal and bilateral lateral recesses. Normal bilateral intervertebral neural foramina. Normal visualized paraspinous soft tissue structures. CT/Spine Lumbar without Contrast IMPRESSION: 1. Stable lumbar findings when compared to study of April 22, 2022. There is erosive changes and sclerosis. If there is concern for osteomyelitis, bone scan or MRI is recommended. 2. Mild worsening of the compression deformity of the superior endplate of T12 when compared to the prior examination. There is no evidence of acute fracture. Electronically Signed: Elier Hsu DO at 20:25 EST ,
--- NOTE | 2022-07-24 19:26 | EDS_ITS ---
HPI History of Present Illness Chief Complaint: Back Informant: patient Onset/Context/Timing Onset: Weeks (1) Chronic pain exacerbated by: A minor fall Injury: fall (My legs gave out when I was walking in my apartment with my Ro llator) Location: Lumbar Current Severity: Severe Maximum Severity: Severe Worsened by: improves with Movement and Ambulation Relieved by: Remaining Still Associated Symptoms Associated Symptoms: Tingling (Both lower extremities chronic unchanged) Narrative Narrative: Patient was seen here 2 days ago for the same symptoms. She states her back pain is severe. It is chronic, for the past year. She states she had back surgery, she has been diagnosed as having loosened hardware, she is scheduled to either be evaluated for her to have another surgery. That is not happening in the immediate future. She states a week ago when she fell, she felt the loose hardware in her back moving and has been bothering her ever since. She has had that happen before with regards to loose hardware which is why she states her surgeon at [facility] is going to do a repeat surgery. She states she is concerned that since her pain is not getting better since her fall that she is getting osteomyelitis again. She had that in the summer, she had no fevers or other symptoms when that was the case and she is afraid that it is back because she knows that she is at risk for it to recur again. She denies any bowel or bladder dysfunction. She is still able to walk but states her legs feel a little weaker than usual since her fall 1 week ago. She has been using a Rollator to help protect herself from another fall. She denies any other new symptoms. She denies any perineal paresthesias or problems urinating. [facility] Medical History Anxiety Arthritis Asthma Back pain Back pain Back pain Cardiology follow-up encounter Chronic neck and back pain COPD (chronic obstructive pulmonary disease) Coronary artery calcification seen on CAT scan CPAP (continuous positive airway pressure) dependence Depression Diabetes Dietary restriction Difficulty balancing Essential hypertension Gastric reflux High cholesterol History of arthritis History of echocardiogram History of edema History of pain when walking History of renal disease History of stomach ulcers History of stress test Hyperlipidemia Hypertension Injury of head and neck Insulin dependent diabetes mellitus Knee pain Lumbar stenosis Obesity Osteomyelitis Shortness of breath on exertion Shoulder pain Sleep apnea Smoker Spinal fusion failure Strain of muscle, fascia and tendon of pelvis, initial encounter Strain of right hip and thigh Strain of right inguinal region Strain of unspecified muscles, fascia and tendons at thigh level, right thigh, initial encounter Syncope Thyroid disease Type 2 diabetes mellitus Walker as ambulation aid Wears glasses Home Medications insulin glargine 100 unit/mL (3 mL) subcutaneous pen 25 unit subcut BREAKFAST DIABETES 11/03/20 [History Last Taken 06/14/22] albuterol sulfate 90 mcg/actuation aerosol inhaler 2 puff inhalation Q6H PRN SOB 06/14/21 [History Last Taken 06/14/22] atorvastatin 80 mg tablet 80 mg PO QHS CHOLESTEROL 06/14/21 [History Last Taken 06/13/22] budesonide-formoterol HFA 160 mcg-4.5 mcg/actuation aerosol inhaler (Symbicort) 2 puff inhalation BID ASTHMA 06/14/21 [History Last Taken 12/25/21] pantoprazole 40 mg tablet,delayed release 40 mg PO DAILY GERD 06/14/21 [History Last Taken 06/14/22] tizanidine 4 mg capsule 4 mg PO BID PRN Muscle Pain 06/14/21 [History Last Taken 06/13/22] amitriptyline 100 mg tablet 100 mg PO QHS sleep 11/27/21 [History Last Taken 12/25/21] ipratropium 0.5 mg-albuterol 3 mg (2.5 mg base)/3 mL nebulization soln 3 ml inhalation 4X/DAY PRN sob 11/27/21 [History Last Taken 11/25/21] loratadine 10 mg tablet 10 mg PO DAILY allergies 11/27/21 [History Last Taken 02/21/22] insulin lispro 100 unit/mL subcutaneous pen (Humalog KwikPen (U-100) Insulin) 8 unit subcut BID DM 12/26/21 [History Last Taken Unknown] acetaminophen 500 mg tablet 1,000 mg PO Q8H PRN Pain 02/22/22 [History Last Taken 06/14/22] empagliflozin 10 mg tablet (Jardiance) 10 mg PO DAILY DM 02/22/22 [History Last Taken 02/21/22] lisinopril 20 mg-hydrochlorothiazide 25 mg tablet 1 tab PO DAILY Check with primary doctor 04/23/22 [History Last Taken 06/14/22] oxycodone-acetaminophen 5 mg-325 mg tablet 1 tab PO Q6H PRN PRN Pain 2 days #10 TABLETS 06/25/22 [Rx Last Taken Unknown] varenicline 0.5 mg tablet 0.5 mg PO BID 07/22/22 [History Last Taken Unknown] ciprofloxacin HCl 500 mg tablet 500 mg PO BID #14 TABLETS 07/24/22 [Rx Last Taken Unknown] Allergy/AdvReac Type Severity Reaction Status Date / Time duloxetine [From Cymbalta] Allergy Unknown Verified 07/24/22 17:20 pregabalin [From Lyrica] Allergy Unknown Verified 07/24/22 17:20 Penicillins AdvReac Mild leaves a Verified 07/24/22 17:20 bad taste in her mouth. aspirin AdvReac Upset Verified 07/24/22 17:20 Stomach NSAIDS (Non-Steroidal AdvReac Upset Verified 07/24/22 17:20 Anti-Inflamma Stomach Family History Father Cancer Unclear type. Mother Lung cancer Concurrent tobacco use history. Surgical History History of ankle surgery History of History of carpal tunnel release History of hysterectomy History of open reduction and internal fixation (ORIF) procedure History of partial thyroidectomy Social History household members: none Smoking Status: Current every day smoker tobacco type: cigarettes alcohol intake: never substance use type: does not use ROS ROS ED Constitutional Constitutional ED: Denies chills or fever(s) Eyes Eyes: Denies blurry vision or diplopia ENT ENT ED: Denies ear pain or sore throat Cardiovascular Cardiovascular: Denies chest pain, orthopnea, palpitations or racing heartbeat Respiratory/Chest Respiratory/Chest: Denies dyspnea or orthopnea Gastrointestinal Gastrointestinal: Denies abdominal pain, constipation, fecal incontinence, nausea or vomiting Genitourinary Genitourinary ED: Reports other Details: no urinary retention ; Denies abdominal discomfort, dysuria or urinary incontinence Musculoskeletal Musculoskeletal: Reports as per HPI and back pain; Denies neck pain Integumentary Denies rash or wounds Neurologic Neurologic: Reports weakness; Denies headache(s) or paresthesias EXAM Physical Exam Const Vital Signs: 07/24/22 17:18 Temperature 96.6 F L Temperature Source Temporal Pulse Rate 97 Respiratory Rate 18 Blood Pressure 194/98 H Blood Pressure Mean 130 Pulse Ox 99 Oxygen Delivery Method Room Air Positive well nourished and well developed General Appearance ED: well developed and NAD HEENT Negative for trauma or tenderness Eyes PERRL and EOMs intact bilaterally Neck full ROM and supple Resp normal respiratory effort and clear to auscultation bilaterally Cardio regular rate, regular rhythm and no murmurs Rate: Negative for tachycardic GI normal to inspection, nondistended, normoactive bowel sounds, soft to palpation and non-tender Back/Spine normal to inspection Back/Spine Narrative: Well-healed midline lumbosacral surgical incision Lumbar Spine / Lower Back: ROM limited and straight leg raise negative bilatera lly; Negative for lumbar spinal tenderness or paraspinal muscle tenderness Extremity normal to inspection, full ROM and no pedal edema Neuro oriented x3 and no sensory deficits noted Sensorium / Orientation: alert Motor Exam: strength 5/5 throughout and clonus absent Deep Tendon Reflexes: Rt Patellar (L4): 1+ and Lt Patellar (L4): 1+ Deep Tendon Reflexes Back: Rt Patellar (L4): 1+ and Lt Patellar (L4): 1+ Psych mental status grossly normal and thought process normal Skin no rashes or lesions noted and no wounds MDM MDM MDM Narrative Medical decision making narrative: 2 days ago patient had an abnormal urinalysis which was sent for culture, that grew out Klebsiella greater than 100,000 colony-forming units, sensitive to most including ciprofloxacin, which I gave her a dose of here in addition to some oxycodone for the pain while we did labs and a CT. the results of the CT are brooklynn ssuring and unchanged compared with her prior scan in April. She does have an elevated ESR and CRP, however. This certainly is not specific for osteomyelitis, but having these abnormal I am not able to rule that out. I discussed with Dr. Medellin, who happens to know this patient well and was the one who referred her to [facility]. I discussed the presence of the urinary infection as well. He states it is reasonable to discharge this patient home with close outpatient follow-up with her surgeons in [place] and to treat her urine infection, I do suspect that the ESR and CRP are elevated due to this active infection. Given her history of osteomyelitis I did send blood cultures, we treated her pain. She understands all that is comfortable this plan will follow-up. Lab Data Attestation: I reviewed the patient's lab results. Labs: Laboratory Results - last 24 hr 07/24/22 07/24/22 19:37 19:37 WBC 9.3 RBC 3.86 L Hgb 11.2 L Hct 34.9 L MCV 90.4 MCH 29.0 MCHC 32.1 RDW Std Deviation 51.8 H RDW Coeff of Yudelka 15.6 H Plt Count 412 MPV 11.1 Immature Gran % (Auto) 1.600 H Neut % (Auto) 64.0 Lymph % (Auto) 26.0 [place] % (Auto) 7.0 Eos % (Auto) 1.1 Baso % (Auto) 0.3 Absolute Neuts (auto) 5.9 Absolute Lymphs (auto) 2.41 Nucleated RBC % 0 ESR 77 H Sodium 133 L Potassium 4.8 Chloride 104 Carbon Dioxide 24.0 Anion Gap 5 BUN 34 H Creatinine 1.29 H Estim Creat Clear Calc 36.31 Est GFR (MDRD) Af Amer 55 L Est GFR (MDRD) Non-Af 45 L BUN/Creatinine Ratio 26.4 H Glucose 336 H Calcium 10.0 C-React Prot Ext Range 18.40 H Radiography Diagnostic Testing: Clinical Impression(s) from Imaging Studies Lumbar Spine CT 07/24/22 19:22 IMPRESSION: 1. Stable lumbar findings when compared to study of April 22, 2022. There is erosive changes and sclerosis. If there is concern for osteomyelitis, bone scan or MRI is recommended. 2. Mild worsening of the compression deformity of the superior endplate of T12 when compared to the prior examination. There is no evidence of acute fracture. Electronically Signed: Elier Hsu DO at 20:25 EST Reading Location ID and State: [address] [place] [address] Tel [phone], Service support , Discharge Plan Triage Chief Complaint: Back ED Provider: Soto Buckner Dx/Rx/DC Orders Clinical Impression: Acute exacerbation of chronic low back pain, Acute lower urinary tract infecti on Instructions: ED Cystitis Female Adult Prescriptions: New ciprofloxacin HCl [ciprofloxacin HCl] 500 MG tablet 500 mg PO BID Qty: 14 0RF Continued atorvastatin 80 mg tablet 80 mg PO QHS budesonide-formoterol [Symbicort] 160-4.5 mcg/actuation HFA aerosol inhaler 2 puff inhalation BID albuterol sulfate 90 mcg/actuation HFA aerosol inhaler 2 puff inhalation Q6H PRN (Reason: SOB) pantoprazole 40 mg tablet,delayed release (DR/EC) 40 mg PO DAILY insulin glargine 100 unit/mL (3 mL) insulin pen 25 unit SC BREAKFAST ipratropium-albuterol 0.5 mg-3 mg(2.5 mg base)/3 mL solution for nebulization 3 ml inhalation 4X/DAY PRN (Reason: sob) amitriptyline 100 mg tablet 100 mg PO QHS Label Comments: take 1 tablet by oral route at bedtime per day loratadine 10 mg tablet 10 mg PO DAILY insulin lispro [Humalog KwikPen Insulin] 100 unit/mL insulin pen 8 unit subcut BID Protocol: 4. Sliding Scale Insulin High-Med Dosing Condition: 150-199 mg/dl = 2 units Condition: 200-259 mg/dl = 4 units Condition: 260-324 mg/dl = 6 units Condition: 325-374 mg/dl = 8 units Condition: 375-409 mg/dl = 10 units Condition: 410-449 mg/dl = 11 units Condition: Greater than 449 call physician Protocol Text: - Use for Total Daily Dose of Insulin 56-80 units - Patient who are insulin resistant or septic HIGH MEDIUM DOSING ALGORITHM Jardiance 10 mg tablet 10 mg PO DAILY Label Comments: TAKE 1 TABLET BY MOUTH EVERY MORNING acetaminophen 500 mg tablet 1,000 mg PO Q8H PRN (Reason: Pain) lisinopril-hydrochlorothiazide 20-25 mg tablet 1 tab PO DAILY Label Comments: TAKE TWO (2) TABLETS BY MOUTH ONCE DAILY oxycodone-acetaminophen 5-325 mg tablet 1 tab PO Q6H PRN PRN (Reason: Pain) 2 Days Qty: 10 0RF varenicline 0.5 mg Tablet 0.5 mg PO BID Held tizanidine 4 mg capsule 4 mg PO BID PRN (Reason: Muscle Pain) Hold Instructions: Resume on 07/31/22. while on cipro Primary Care Provider: Gris Fofana NP Referrals: surgeon, your [Other] - As soon as possible Seffens,Gris CHAIN CARRIER, CHAIN CARRIER-C [Primary Care Provider] - Disposition Disposition: Home, Self Care
[2022-07-24] MEDS: oxyCODONE 5 MG Tablet 10 MG PO (19:34)
[2022-07-24 19:46] LABS: Absolute Lymphocyte Count 2.41 X10^3/uL (0.83-4.51); Absolute Neutrophil Count 5.9 X10^3/uL (2.0-7.7); Basophil# 0.03 X10^3/uL; Basophil% 0.3 % (0-1); Eosinophils% 1.1 % (0-5); Hematocrit 34.9 % (37-47); Hemoglobin 11.2 g/dL (12.0-15.0); Lymphocyte # 2.41 X10^3/ul (0.83-4.51); Mean Corp Hgb Conc 32.1 g/dL (32-36); Mean Corpuscular Volume 90.4 fL (81-99); Mean Platelet Vol. 11.1 fl (6.2-12.0); Monocyte# 0.65 X10^3/uL; NRBC Flagged by Analyzer 0 % (0-5); Neutrophil # 5.92 X10^3/uL (2.7-7.7); Platelet Count 412 K/mm3 (150-450); RBC Distribution Width CV 15.6 % (11.6-14.6); RBC Distribution Width SD 51.8 fl (35.1-43.9); Red Blood Count 3.86 M/mm3 (4.2-5.4); White Blood Count 9.3 K/mm3 (4.4-11.0)
[2022-07-24 19:58] LABS: Anion Gap 5 (5-15); BUN 34 mg/dL (7-18); BUN/Creat Ratio 26.4 RATIO (10-20); Chloride 104 mmol/L (98-107); Creatinine, Serum 1.29 mg/dL (0.55-1.02); EST Glomerular Filtration Rate 45 mL/min (>60); Est Glom Filt Rate - Afr Amer 55 mL/min (>60); Estimated Creatinine Clearance 36.31 ml/min; Glucose 336 mg/dL (74-106); Potassium 4.8 mmol/L (3.5-5.1); Sodium Level 133 mmol/L (136-145)
[2022-07-24 20:05] LABS: Erythrocyte Sedimentation Rate 77 mm/hr (0-30)
--- NOTE | 2022-07-24 20:19 | ED.RN ---
Pt. refuses to take prescribed antibiotic, states I would rather just wait for my blood cultures to come back before I start antibiotics.
[2022-07-24] MEDS: Ciprofloxacin 500 MG Tablet PO (22:01)
[2022-07-24] MEDS: oxyCODONE 5 MG Tablet PO (22:02)
== END 2022-07-24 22:06 | disposition home or self-care (01) ==
PROVIDERS: Emergency Provider Emergency Medicine; PCP Nurse Practitioner Primary Care; Visit Provider Emergency Medicine
DX: N39.0 Urinary tract infection, site not specified (principal); J44.9 Chronic obstructive pulmonary disease, unspecified; Z79.4 Long term (current) use of insulin; E11.9 Type 2 diabetes mellitus without complications; M54.50 Low back pain, unspecified; I10 Essential (primary) hypertension; G89.29 Other chronic pain; I25.10 Atherosclerotic heart disease of native coronary artery without angina pectoris; E78.5 Hyperlipidemia, unspecified; B96.1 Klebsiella pneumoniae [K. pneumoniae] as the cause of diseases classified elsewhere; E78.00 Pure hypercholesterolemia, unspecified
CPT/HCPCS: 72131; 80048; 85025; 85652; 86140; 87040; 99282

== ENCOUNTER 2022-07-30 08:00 | Emergency (ER) | payer MEDICAID, SELFPAY ==
[2022-07-30 08:01] VITALS: BP 171/103; PULSE 97; RESP 16; TEMP 36.7; O2SAT 97; BMI 26.4
[2022-07-30] MEDS: HYDROmorphone 1 MG/ML Syringe IM (08:34)
--- NOTE | 2022-07-30 09:47 | EDS_ITS ---
HPI History of Present Illness Chief Complaint: Back Informant: patient Onset/Context/Timing Onset: - (Acute on chronic back pain) Narrative Narrative: Patient presents with acute on chronic back pain. She has had prior surgery with hardware in her lumbar spine. She states the hardware has loosened. She is seeing an orthopedic surgeon through [facility] and is scheduled for an MRI on August 08. She present secondary to increased pain and has been here a couple times recently for similar. She states her pain management doctor would not prescribe any pain medication until she completes her physical therapy. Orthopedic surgeon will not see her until after her MRI or write her any pain medication. She states has been tried to use [id number] medication without improvement. She denies fever or chills. She had no loss of bowel or bladder control. She has chronic pain that wraps from her back down into her thighs. She also has chronic distal paresthesias from the knees to the toes. [facility] Medical History Anxiety Arthritis Asthma Back pain Back pain Back pain Cardiology follow-up encounter Chronic neck and back pain COPD (chronic obstructive pulmonary disease) Coronary artery calcification seen on CAT scan CPAP (continuous positive airway pressure) dependence Depression Diabetes Dietary restriction Difficulty balancing Essential hypertension Gastric reflux High cholesterol History of arthritis History of echocardiogram History of edema History of pain when walking History of renal disease History of stomach ulcers History of stress test Hyperlipidemia Hypertension Injury of head and neck Insulin dependent diabetes mellitus Knee pain Lumbar stenosis Obesity Osteomyelitis Shortness of breath on exertion Shoulder pain Sleep apnea Smoker Spinal fusion failure Strain of muscle, fascia and tendon of pelvis, initial encounter Strain of right hip and thigh Strain of right inguinal region Strain of unspecified muscles, fascia and tendons at thigh level, right thigh, initial encounter Syncope Thyroid disease Type 2 diabetes mellitus Walker as ambulation aid Wears glasses Home Medications insulin glargine 100 unit/mL (3 mL) subcutaneous pen 25 unit subcut BREAKFAST DIABETES 11/03/20 [History Last Taken 06/14/22] albuterol sulfate 90 mcg/actuation aerosol inhaler 2 puff inhalation Q6H PRN SOB 06/14/21 [History Last Taken 06/14/22] atorvastatin 80 mg tablet 80 mg PO QHS CHOLESTEROL 06/14/21 [History Last Taken 06/13/22] budesonide-formoterol HFA 160 mcg-4.5 mcg/actuation aerosol inhaler (Symbicort) 2 puff inhalation BID ASTHMA 06/14/21 [History Last Taken 12/25/21] pantoprazole 40 mg tablet,delayed release 40 mg PO DAILY GERD 06/14/21 [History Last Taken 06/14/22] tizanidine 4 mg capsule 4 mg PO BID PRN Muscle Pain 06/14/21 [History Last Taken 06/13/22] amitriptyline 100 mg tablet 100 mg PO QHS sleep 11/27/21 [History Last Taken 12/25/21] ipratropium 0.5 mg-albuterol 3 mg (2.5 mg base)/3 mL nebulization soln 3 ml inhalation 4X/DAY PRN sob 11/27/21 [History Last Taken 11/25/21] loratadine 10 mg tablet 10 mg PO DAILY allergies 11/27/21 [History Last Taken 02/21/22] insulin lispro 100 unit/mL subcutaneous pen (Humalog KwikPen (U-100) Insulin) 8 unit subcut BID DM 12/26/21 [History Last Taken Unknown] acetaminophen 500 mg tablet 1,000 mg PO Q8H PRN Pain 02/22/22 [History Last Taken 06/14/22] empagliflozin 10 mg tablet (Jardiance) 10 mg PO DAILY DM 02/22/22 [History Last Taken 02/21/22] lisinopril 20 mg-hydrochlorothiazide 25 mg tablet 1 tab PO DAILY Check with primary doctor 04/23/22 [History Last Taken 06/14/22] oxycodone-acetaminophen 5 mg-325 mg tablet 1 tab PO Q6H PRN PRN Pain 2 days #10 TABLETS 06/25/22 [Rx Last Taken Unknown] varenicline 0.5 mg tablet 0.5 mg PO BID 07/22/22 [History Last Taken Unknown] ciprofloxacin HCl 500 mg tablet 500 mg PO BID #14 TABLETS 07/24/22 [Rx Last Taken Unknown] oxycodone-acetaminophen 5 mg-325 mg tablet (Percocet) 1 tab PO Q6H PRN pain 3 days #10 tabs 07/30/22 [Rx Last Taken Unknown] Allergy/AdvReac Type Severity Reaction Status Date / Time duloxetine [From Cymbalta] Allergy Unknown Verified 07/30/22 08:02 pregabalin [From Lyrica] Allergy Unknown Verified 07/30/22 08:02 Penicillins AdvReac Mild leaves a Verified 07/30/22 08:02 bad taste in her mouth. aspirin AdvReac Upset Verified 07/30/22 08:02 Stomach NSAIDS (Non-Steroidal AdvReac Upset Verified 07/30/22 08:02 Anti-Inflamma Stomach Family History Father Cancer Unclear type. Mother Lung cancer Concurrent tobacco use history. Surgical History History of ankle surgery History of History of carpal tunnel release History of hysterectomy History of open reduction and internal fixation (ORIF) procedure History of partial thyroidectomy Social History household members: none Smoking Status: Current every day smoker tobacco type: cigarettes alcohol intake: never substance use type: does not use ROS ROS ED Constitutional Constitutional ED: Denies chills or fever(s) Eyes Eyes: Denies change in vision or discharge from eye(s) ENT ENT ED: Denies discharge from eye(s), rhinorrhea or sore throat Cardiovascular Cardiovascular: Denies chest pain or palpitations Respiratory/Chest Respiratory/Chest: Denies cough or dyspnea Gastrointestinal Gastrointestinal: Denies abdominal pain, diarrhea, nausea or vomiting Genitourinary Genitourinary ED: Denies dysuria Musculoskeletal Musculoskeletal: Reports back pain and extremity pain Integumentary Denies Abrasions or rash Neurologic Neurologic: Reports paresthesias; Denies headache(s) or weakness Psychiatric Psychiatric: Denies anxiety or depression Allergic/Immunologic Allergic/Immunologic ED: Denies lip swelling or urticaria EXAM Physical Exam Narrative Exam Narrative: Went into the room patient is lying on her stomach rocking side to side complaining of severe low back pain. Const Vital Signs: 07/30/22 08:01 07/30/22 10:09 Temperature 98.0 F Temperature Source Temporal Pulse Rate 97 88 Respiratory Rate 16 18 Blood Pressure 171/103 H 160/90 H Blood Pressure Mean 125 Pulse Ox 97 98 Oxygen Delivery Method Room Air Positive well nourished and well developed General Appearance ED: well developed HEENT Reports moist mucous membranes Eyes PERRL and EOMs intact bilaterally Resp normal respiratory effort and clear to auscultation bilaterally Cardio regular rate and regular rhythm GI soft to palpation and non-tender Back/Spine Back/Spine Narrative: Tender palpation along the lumbar paraspinal region bilaterally. She has an old healed midline incision with no sign of infection. There is no fluctuance. Extremity normal to inspection Neuro oriented x3 and no sensory deficits noted Neuro Narrative: 1+ bilateral patellar reflexes noted. Good strength in the lower extremities. She reports chronic paresthesias distal to her knees bilaterally. Psych mental status grossly normal Skin no rashes or lesions noted MDM MDM MDM Narrative Medical decision making narrative: Was given 1 mg of Dilaudid here. On repeat evaluation she is improved. I did review her prior visits as well as her [facility] report. She has not had a prescription for narcotic in a month. I will write her for a short course, but stated that she needed to get any further prescriptions from her primary care physician, pain management doctor, or her orthopedic surgeon. She is to follow- up for her MRI on the first as scheduled. Discharge Plan Triage Chief Complaint: Back ED Provider: Marcy Kidd Dx/Rx/DC Orders Clinical Impression: Acute back pain Instructions: ED Back Pain (Acute or Chronic) Prescriptions: New oxycodone-acetaminophen [Percocet] 5-325 mg tablet 1 tab PO Q6H PRN (Reason: pain) 3 Days Qty: 10 0RF No Action atorvastatin 80 mg tablet 80 mg PO QHS budesonide-formoterol [Symbicort] 160-4.5 mcg/actuation HFA aerosol inhaler 2 puff inhalation BID albuterol sulfate 90 mcg/actuation HFA aerosol inhaler 2 puff inhalation Q6H PRN (Reason: SOB) pantoprazole 40 mg tablet,delayed release (DR/EC) 40 mg PO DAILY tizanidine 4 mg capsule 4 mg PO BID PRN (Reason: Muscle Pain) Hold Instructions: Resume on 07/31/22. while on cipro insulin glargine 100 unit/mL (3 mL) insulin pen 25 unit SC BREAKFAST ipratropium-albuterol 0.5 mg-3 mg(2.5 mg base)/3 mL solution for nebulization 3 ml inhalation 4X/DAY PRN (Reason: sob) amitriptyline 100 mg tablet 100 mg PO QHS Label Comments: take 1 tablet by oral route at bedtime per day loratadine 10 mg tablet 10 mg PO DAILY insulin lispro [Humalog KwikPen Insulin] 100 unit/mL insulin pen 8 unit subcut BID Protocol: 4. Sliding Scale Insulin High-Med Dosing Condition: 150-199 mg/dl = 2 units Condition: 200-259 mg/dl = 4 units Condition: 260-324 mg/dl = 6 units Condition: 325-374 mg/dl = 8 units Condition: 375-409 mg/dl = 10 units Condition: 410-449 mg/dl = 11 units Condition: Greater than 449 call physician Protocol Text: - Use for Total Daily Dose of Insulin 56-80 units - Patient who are insulin resistant or septic HIGH MEDIUM DOSING ALGORITHM Jardiance 10 mg tablet 10 mg PO DAILY Label Comments: TAKE 1 TABLET BY MOUTH EVERY MORNING acetaminophen 500 mg tablet 1,000 mg PO Q8H PRN (Reason: Pain) lisinopril-hydrochlorothiazide 20-25 mg tablet 1 tab PO DAILY Label Comments: TAKE TWO (2) TABLETS BY MOUTH ONCE DAILY oxycodone-acetaminophen 5-325 mg tablet 1 tab PO Q6H PRN PRN (Reason: Pain) 2 Days Qty: 10 0RF varenicline 0.5 mg Tablet 0.5 mg PO BID ciprofloxacin HCl [ciprofloxacin HCl] 500 MG tablet 500 mg PO BID Qty: 14 0RF Primary Care Provider: Gris Fofana NP Referrals: Gris Fofana NP, PLUG MAKING OPERATOR-C [Primary Care Provider] - Activity Restrictions/Additional Instructions: Follow-up for your MRI and surgeon appointment as scheduled. Disposition Disposition: Home, Self Care Discharge Date/Time: 07/30/22 10:10
[2022-07-30 10:09] VITALS: BP 160/90; PULSE 88; RESP 18; O2SAT 98
== END 2022-07-30 10:10 | disposition home or self-care (01) ==
PROVIDERS: Emergency Provider Emergency Medicine; PCP Nurse Practitioner Primary Care; Visit Provider Emergency Medicine
DX: M54.9 Dorsalgia, unspecified (principal); J44.9 Chronic obstructive pulmonary disease, unspecified; Z79.4 Long term (current) use of insulin; E11.9 Type 2 diabetes mellitus without complications; E78.00 Pure hypercholesterolemia, unspecified; I10 Essential (primary) hypertension; E78.5 Hyperlipidemia, unspecified; I25.10 Atherosclerotic heart disease of native coronary artery without angina pectoris; G89.29 Other chronic pain
CPT/HCPCS: 96372; 99282

== ENCOUNTER 2022-08-11 15:24 | Emergency (ER) | payer MEDICAID, SELFPAY ==
[2022-08-11 15:25] VITALS: BP 159/78; PULSE 75; RESP 18; TEMP 36.7; O2SAT 99; BMI 28.6
--- NOTE | 2022-08-11 16:01 | ED.VIS.BACK ---
HPI <GIANCARLO Ward - Last Filed: 08/11/22 16:43> History of Present Illness Chief Complaint: Back Narrative Narrative: 56-year-old female with a long medical history of chronic back pain presents to the emergency department acute on chronic back pain. Patient has been seen here 4 times in the last month and 4 days. Patient states that she is no longer a part of any pain management service. Patient does have known failed back surgeries. Patient has pain to her lumbar spine that rates down bilateral legs. She denies any bowel or bladder incontinence, denies any fever or chills. Patient states that when she comes here she usually gets an IM dose of medication and a short course of pain medicine. I looked at the patient's last note who was seen on July 30, she was given a IM dose of Dilaudid, 10 Percocet tablets, and the note, the physician noted that this is not appropriate place to get your pain medicine. And that she is to receive no other prescriptions here and needs to follow-up with her orthopedic surgeon, her primary doctor or get back into pain management. [facility] <GIANCARLO Ward - Last Filed: 08/11/22 16:43> [facility] Medical History Anxiety Arthritis Asthma Back pain Back pain Back pain Cardiology follow-up encounter Chronic neck and back pain COPD (chronic obstructive pulmonary disease) Coronary artery calcification seen on CAT scan CPAP (continuous positive airway pressure) dependence Depression Diabetes Dietary restriction Difficulty balancing Essential hypertension Gastric reflux High cholesterol History of arthritis History of echocardiogram History of edema History of pain when walking History of renal disease History of stomach ulcers History of stress test Hyperlipidemia Hypertension Injury of head and neck Insulin dependent diabetes mellitus Knee pain Lumbar stenosis Obesity Osteomyelitis Shortness of breath on exertion Shoulder pain Sleep apnea Smoker Spinal fusion failure Strain of muscle, fascia and tendon of pelvis, initial encounter Strain of right hip and thigh Strain of right inguinal region Strain of unspecified muscles, fascia and tendons at thigh level, right thigh, initial encounter Syncope Thyroid disease Type 2 diabetes mellitus Walker as ambulation aid Wears glasses Home Medications insulin glargine 100 unit/mL (3 mL) subcutaneous pen 25 unit subcut BREAKFAST DIABETES 11/03/20 [History Last Taken 06/14/22] albuterol sulfate 90 mcg/actuation aerosol inhaler 2 puff inhalation Q6H PRN SOB 06/14/21 [History Last Taken 06/14/22] atorvastatin 80 mg tablet 80 mg PO QHS CHOLESTEROL 06/14/21 [History Last Taken 06/13/22] budesonide-formoterol HFA 160 mcg-4.5 mcg/actuation aerosol inhaler (Symbicort) 2 puff inhalation BID ASTHMA 06/14/21 [History Last Taken 12/25/21] pantoprazole 40 mg tablet,delayed release 40 mg PO DAILY GERD 06/14/21 [History Last Taken 06/14/22] tizanidine 4 mg capsule 4 mg PO BID PRN Muscle Pain 06/14/21 [History Last Taken 06/13/22] amitriptyline 100 mg tablet 100 mg PO QHS sleep 11/27/21 [History Last Taken 12/25/21] ipratropium 0.5 mg-albuterol 3 mg (2.5 mg base)/3 mL nebulization soln 3 ml inhalation 4X/DAY PRN sob 11/27/21 [History Last Taken 11/25/21] loratadine 10 mg tablet 10 mg PO DAILY allergies 11/27/21 [History Last Taken 02/21/22] insulin lispro 100 unit/mL subcutaneous pen (Humalog KwikPen (U-100) Insulin) 8 unit subcut BID DM 12/26/21 [History Last Taken Unknown] acetaminophen 500 mg tablet 1,000 mg PO Q8H PRN Pain 02/22/22 [History Last Taken 06/14/22] empagliflozin 10 mg tablet (Jardiance) 10 mg PO DAILY DM 02/22/22 [History Last Taken 02/21/22] lisinopril 20 mg-hydrochlorothiazide 25 mg tablet 1 tab PO DAILY Check with primary doctor 04/23/22 [History Last Taken 06/14/22] oxycodone-acetaminophen 5 mg-325 mg tablet 1 tab PO Q6H PRN PRN Pain 2 days #10 TABLETS 06/25/22 [Rx Last Taken Unknown] varenicline 0.5 mg tablet 0.5 mg PO BID 07/22/22 [History Last Taken Unknown] ciprofloxacin HCl 500 mg tablet 500 mg PO BID #14 TABLETS 07/24/22 [Rx Last Taken Unknown] oxycodone-acetaminophen 5 mg-325 mg tablet (Percocet) 1 tab PO Q6H PRN pain 3 days #10 tabs 07/30/22 [Rx Last Taken Unknown] Allergy/AdvReac Type Severity Reaction Status Date / Time duloxetine [From Cymbalta] Allergy Unknown Verified 08/11/22 15:25 pregabalin [From Lyrica] Allergy Unknown Verified 08/11/22 15:25 Penicillins AdvReac Mild leaves a Verified 08/11/22 15:25 bad taste in her mouth. aspirin AdvReac Upset Verified 08/11/22 15:25 Stomach NSAIDS (Non-Steroidal AdvReac Upset Verified 08/11/22 15:25 Anti-Inflamma Stomach Family History Father Cancer Unclear type. Mother Lung cancer Concurrent tobacco use history. Surgical History History of ankle surgery History of History of carpal tunnel release History of hysterectomy History of open reduction and internal fixation (ORIF) procedure History of partial thyroidectomy Social History household members: none Smoking Status: Current every day smoker tobacco type: cigarettes alcohol intake: never substance use type: does not use ROS <GIANCARLO Ward - Last Filed: 08/11/22 16:43> ROS ED ROS Narrative Constitutional: Negative for fever, chills, weight loss, weakness Eyes: Negative for vision loss, vision change, double vision ENT: Negative for any sore throat, ear pain, congestion Cardiovascular: Negative for any chest pain, tightness, palpitations Respiratory: Negative for any cough, sputum production, hemoptysis, dyspnea, dyspnea on exertion, orthopnea Gastrointestinal: Negative for any abdominal pain, nausea, vomiting, diarrhea, constipation, blood in stool, blood in vomit : Negative for any urinary frequency, dysuria, retention, blood in urine Muscle skeletal: Negative for any muscle joint pain, stiffness, myalgias, arthralgias, neck pain. Positive back pain that radiates down the lower lumbar spine Neurological: Negative for any headache, syncope, numbness or tingling, dizziness Skin: Negative for any rashes, lumps, itching, abrasions, lacerations Psychiatric: Negative for any depression, anxiety, stress, suicidal ideation, homicidal ideation Hematologic: Negative for any easy bruising, excessive bruising, easy bleeding Allergies: Negative for any eczema, hives, rash EXAM <GIANCARLO Ward - Last Filed: 08/11/22 16:43> Physical Exam Narrative Exam Narrative: Vital signs reviewed. HEET: Head normocephalic atraumatic, TMs clear bilaterally. Posterior pharynx is clear, moist mucous membranes. Nares clear bilaterally. Neck: Supple with no lymphadenopathy or tenderness. No signs of meningismus, negative jolt sign. Cardiac: Regular rate and rhythm no murmurs gallops or rubs, equal peripheral pulses bilaterally. Respiratory: Lungs clear to auscultation bilaterally. No chest tenderness. Abdomen: Soft, nontender, nondistended. No abdominal bruit or pulsatile masses. No hepatosplenomegaly Extremities: No peripheral edema, no signs of gross trauma or deformity. Active full range of motion of all extremities. Patient is able to flex and extend bilateral legs. Neuro: Cranial nerves II through XII intact, no focal neurological deficits. Skin: Clean dry and intact with no rash, purpura, petechiae, vesicles or pustules. Backs/flank: No CVA tenderness, no deformity. Patient does have some tenderness along the lumbar spine, there is no step-off deformity. Psych: Normal mood and affect. No SI, HI or acute psychosis. Const Vital Signs: 08/11/22 15:25 Temperature 98.1 F Temperature Source Temporal Pulse Rate 75 Respiratory Rate 18 Blood Pressure 159/78 H Blood Pressure Mean 105 Pulse Ox 99 Oxygen Delivery Method Room Air <Dr. Don Jose, DO - Last Filed: 08/11/22 19:16> Physical Exam Const Vital Signs: 08/11/22 15:25 Temperature 98.1 F Temperature Source Temporal Pulse Rate 75 Respiratory Rate 18 Blood Pressure 159/78 H Blood Pressure Mean 105 Pulse Ox 99 Oxygen Delivery Method Room Air [facility] <GIANCARLO Ward - Last Filed: 08/11/22 16:43> [facility] Treatment and Re-Evaluation Narrative: Patient appears to be in no distress, patient vital signs are stable, patient is nontoxic. Patient physical lamination of her lower lumbar spine yields no red flag signs. There is no evidence of any cauda equina, spinal abscess. I did speak with the patient at length regarding her come to the emergency department just for pain medicine. This needs to be done with her orthopedic surgeon. Patient does have a MRI that is scheduled for August 19. She does have an established spinal surgeon. Patient will be given 1 mg of Dilaudid here IM, she will receive no narcotic prescriptions. She needs to follow-up outpatient, she will need to get into a pain management clinic. <Dr. Don Jose, DO - Last Filed: 08/11/22 19:16> [facility] MDM Narrative Medical decision making narrative: This patient was seen with a PA/MOLECULAR SPECTROSCOPIST Individually assessed they patient including history and physical. I have reviewed everything on the chart that is available and agree with the documentation provided by the PA/MOLECULAR SPECTROSCOPIST including discussion about the assessment, treatment plan, discussion, and return precautions. Patient presenting with chronic back pain. There are no red flag signs or symptoms. There is no evidence of cauda equina syndrome or infectious process. Patient has been here multiple times for the same pain. We did treat her here today with Dilaudid, but I recommended to her that she will need a pain management physician to follow-up with. She states that she was in between physicians right now. I did psychosocial rehabilitation counselor her that she has multiple visits here and she has been getting prescribed pain medication from the ED. She states this is what she was told to do. I counseled her that I cannot give her narcotic pain medication for home today since this is a chronic issue and she has multiple prescribers. I did give her referral to pain management. Discharge Plan Triage Chief Complaint: Back ED Midlevel Provider: Delon Rodríguez ED Provider: Don Jose Dx/Rx/DC Orders Clinical Impression: Acute exacerbation of chronic low back pain, Lumbar strain Instructions: ED Back Pain (Acute or Chronic), ED Chronic Pain Prescriptions: No Action atorvastatin 80 mg tablet 80 mg PO QHS budesonide-formoterol [Symbicort] 160-4.5 mcg/actuation HFA aerosol inhaler 2 puff inhalation BID albuterol sulfate 90 mcg/actuation HFA aerosol inhaler 2 puff inhalation Q6H PRN (Reason: SOB) pantoprazole 40 mg tablet,delayed release (DR/EC) 40 mg PO DAILY tizanidine 4 mg capsule 4 mg PO BID PRN (Reason: Muscle Pain) Hold Instructions: Resume on 07/31/22. while on cipro insulin glargine 100 unit/mL (3 mL) insulin pen 25 unit SC BREAKFAST ipratropium-albuterol 0.5 mg-3 mg(2.5 mg base)/3 mL solution for nebulization 3 ml inhalation 4X/DAY PRN (Reason: sob) amitriptyline 100 mg tablet 100 mg PO QHS Label Comments: take 1 tablet by oral route at bedtime per day loratadine 10 mg tablet 10 mg PO DAILY insulin lispro [Humalog KwikPen Insulin] 100 unit/mL insulin pen 8 unit subcut BID Protocol: 4. Sliding Scale Insulin High-Med Dosing Condition: 150-199 mg/dl = 2 units Condition: 200-259 mg/dl = 4 units Condition: 260-324 mg/dl = 6 units Condition: 325-374 mg/dl = 8 units Condition: 375-409 mg/dl = 10 units Condition: 410-449 mg/dl = 11 units Condition: Greater than 449 call physician Protocol Text: - Use for Total Daily Dose of Insulin 56-80 units - Patient who are insulin resistant or septic HIGH MEDIUM DOSING ALGORITHM Jardiance 10 mg tablet 10 mg PO DAILY Label Comments: TAKE 1 TABLET BY MOUTH EVERY MORNING acetaminophen 500 mg tablet 1,000 mg PO Q8H PRN (Reason: Pain) lisinopril-hydrochlorothiazide 20-25 mg tablet 1 tab PO DAILY Label Comments: TAKE TWO (2) TABLETS BY MOUTH ONCE DAILY oxycodone-acetaminophen 5-325 mg tablet 1 tab PO Q6H PRN PRN (Reason: Pain) 2 Days Qty: 10 0RF varenicline 0.5 mg Tablet 0.5 mg PO BID ciprofloxacin HCl [ciprofloxacin HCl] 500 MG tablet 500 mg PO BID Qty: 14 0RF oxycodone-acetaminophen [Percocet] 5-325 mg tablet 1 tab PO Q6H PRN (Reason: pain) 3 Days Qty: 10 0RF Primary Care Provider: Gris Fofana NP Referrals: Nadia Ibanez MD [Med Staff - Active Staff] - Gris Fofana NP, MOLECULAR SPECTROSCOPIST-C [Primary Care Provider] - Activity Restrictions/Additional Instructions: You need to follow-up with your orthopedic surgeon or your primary care provider. Disposition Disposition: Home, Self Care Discharge Date/Time: 08/11/22 16:49
[2022-08-11] MEDS: HYDROmorphone 1 MG/ML Syringe IM (16:03)
== END 2022-08-11 16:49 | disposition home or self-care (01) ==
PROVIDERS: Emergency Provider Student in an Organized Health Care Education/Training Program; PCP Nurse Practitioner Primary Care; Visit Provider Student in an Organized Health Care Education/Training Program
DX: S39.012A Strain of muscle, fascia and tendon of lower back, initial encounter (principal); J44.9 Chronic obstructive pulmonary disease, unspecified; E11.9 Type 2 diabetes mellitus without complications; E78.00 Pure hypercholesterolemia, unspecified; G89.29 Other chronic pain; I10 Essential (primary) hypertension; E78.5 Hyperlipidemia, unspecified; I25.10 Atherosclerotic heart disease of native coronary artery without angina pectoris; X58.XXXA Exposure to other specified factors, initial encounter
CPT/HCPCS: 96372; 99284

== ENCOUNTER → 2022-08-20 | Outpatient (CLI) | payer MEDICAID, SELFPAY ==
--- NOTE | 2022-08-20 13:47 | BI_ITS ---
MAMMOGRAPHY - BILATERAL SCREENING REASON FOR EXAM: Female, 56 years old. Routine annual screening examination. PERTINENT HISTORY: Non-contributory. TECHNIQUE: Digital bilateral breast celeste (3D mammographic acquisition) in the CC and MLO projections. 2-D mediolateral oblique (MLO) and craniocaudad (CC) views of both breasts were obtained. CAD: Full Field Digital Mammography with Computer Added Detection was performed. COMPARISON: Comparison is made with prior outside examination dated 02/25/2020. FINDINGS: Breast Composition: The breasts are almost entirely fatty. There are no dominant masses or suspicious calcifications. Stable small benign-appearing bilateral axillary vessels. No other significant abnormalities are identified. There has been no significant change since the prior study. BI/SCRN MAMM (CAD)W/CELESTE BILAT IMPRESSION: Stable bilateral screening mammogram. Yearly follow-up mammogram recommended. (A) ASSESSMENT CATEGORY: BIRADS Category 2: Benign. A letter regarding these results will be sent to the patient by the facility within 30 days. Approximately 10% of breast cancers are not detected by mammography. A normal mammogram should not delay biopsy of a clinically suspicious abnormality. [id number] Electronically Signed: Joaquin Rodney MD at 15:34 EST ,
== END | disposition home or self-care (01) ==
LOC: OPBI 13:44
PROVIDERS: PCP Family Medicine; Visit Provider Nurse Practitioner Primary Care
DX: Z12.31 Encounter for screening mammogram for malignant neoplasm of breast (principal)
CPT/HCPCS: 77063; 77067

== ENCOUNTER 2022-09-09 10:18 | Emergency (ER) | payer MEDICAID, SELFPAY ==
[2022-09-09 10:19] VITALS: BP 214/105; PULSE 79; RESP 18; TEMP 36.1; O2SAT 99; BMI 29.5
--- NOTE | 2022-09-09 10:53 | ED.VIS.BACK ---
HPI History of Present Illness Chief Complaint: Back Informant: patient Narrative Narrative: Patient comes with the same old shit different day. She states she has pain in her lower back. Its a little bit more toward the left than the right. Its not radiating down the legs. She is not having numbness tingling or weakness. It hurts to move or press on the area. No fevers chills. She has a long history of back pain problems. She had surgery with fixation about a year ago. She states the hardware is getting loose and that is contributing to the symptoms. But she states the hardware loosening was diagnosed in about April of this year. She sees a surgeon, Dr. Rollins, up at [facility]. She is set to have surgery again but I do not know the date. She just had an MRI again on 30 August approximately 10 days ago. I reviewed that report. There was some stenosis at the L3-4 area and some disc compression. There was a T12 compression fracture of uncertain age but likely acute or subacute. But her pain is not up there. We discussed pain management. I explained I can get her something here for pain. I cannot manage her long-term pain for this. I recommend she contact pain management and I could give referral. She states she has seen them but they still tell her to just do the same old thing. They will not prescribe any medications. Evidently her surgeon states that if the pain gets bad she should just go to the ER. I explained I am happy to see her but I cannot manage her long-term pain. I am happy to try to help her and get her something here though. PFSH PFS Medical History Anxiety Arthritis Asthma Back pain Back pain Back pain Cardiology follow-up encounter Chronic neck and back pain COPD (chronic obstructive pulmonary disease) Coronary artery calcification seen on CAT scan CPAP (continuous positive airway pressure) dependence Depression Diabetes Dietary restriction Difficulty balancing Essential hypertension Gastric reflux High cholesterol History of arthritis History of echocardiogram History of edema History of pain when walking History of renal disease History of stomach ulcers History of stress test Hypertension Injury of head and neck Insulin dependent diabetes mellitus Knee pain Lumbar stenosis Obesity Osteomyelitis Shortness of breath on exertion Shoulder pain Sleep apnea Smoker Spinal fusion failure Strain of muscle, fascia and tendon of pelvis, initial encounter Strain of right hip and thigh Strain of right inguinal region Strain of unspecified muscles, fascia and tendons at thigh level, right thigh, initial encounter Syncope Thyroid disease Type 2 diabetes mellitus Walker as ambulation aid Wears glasses Home Medications insulin glargine 100 unit/mL (3 mL) subcutaneous pen 25 unit subcut BREAKFAST DIABETES 11/03/20 [History Last Taken 06/14/22] albuterol sulfate 90 mcg/actuation aerosol inhaler 2 puff inhalation Q6H PRN SOB 06/14/21 [History Last Taken 06/14/22] atorvastatin 80 mg tablet 80 mg PO QHS CHOLESTEROL 06/14/21 [History Last Taken 06/13/22] budesonide-formoterol HFA 160 mcg-4.5 mcg/actuation aerosol inhaler (Symbicort) 2 puff inhalation BID ASTHMA 06/14/21 [History Last Taken 12/25/21] pantoprazole 40 mg tablet,delayed release 40 mg PO DAILY GERD 06/14/21 [History Last Taken 06/14/22] ipratropium 0.5 mg-albuterol 3 mg (2.5 mg base)/3 mL nebulization soln 3 ml inhalation 4X/DAY PRN sob 11/27/21 [History Last Taken 11/25/21] loratadine 10 mg tablet 10 mg PO DAILY allergies 11/27/21 [History Last Taken 02/21/22] acetaminophen 500 mg tablet 1,000 mg PO Q8H PRN Pain 02/22/22 [History Last Taken 06/14/22] lisinopril 20 mg-hydrochlorothiazide 25 mg tablet 1 tab PO DAILY Check with primary doctor 04/23/22 [History Last Taken 06/14/22] cholecalciferol (vitamin D3) 50 mcg (2,000 unit) capsule 50 mcg PO DAILY #90 caps 08/15/22 [Rx Last Taken Unknown] flash glucose sensor (FreeStyle Sandra 14 Day Sensor kit) #2 ea 08/15/22 [Rx Last Taken Unknown] gabapentin 300 mg capsule 300 mg PO TID 08/15/22 [History Last Taken Unknown] varenicline 0.5 mg tablet 1 mg PO BID 08/15/22 [History Last Taken Unknown] insulin lispro 100 unit/mL subcutaneous pen (Humalog KwikPen (U-100) Insulin) 10 unit subcut TIDWMEAL DM #15 mL 09/03/22 [Rx Last Taken Unknown] pen needle, diabetic 32 gauge x 5/32 (BD Ultra-Fine Sissy Pen Needle) #150 ea 09/03/22 [Rx Last Taken Unknown] Allergy/AdvReac Type Severity Reaction Status Date / Time duloxetine [From Cymbalta] Allergy Unknown Verified 09/09/22 10:19 pregabalin [From Lyrica] Allergy Unknown Verified 09/09/22 10:19 Penicillins AdvReac Mild leaves a Verified 09/09/22 10:19 bad taste in her mouth. aspirin AdvReac Upset Verified 09/09/22 10:19 Stomach NSAIDS (Non-Steroidal AdvReac Upset Verified 09/09/22 10:19 Anti-Inflamma Stomach Family History Father Cancer Unclear type. Mother Lung cancer Concurrent tobacco use history. Surgical History History of ankle surgery History of History of carpal tunnel release History of hysterectomy History of open reduction and internal fixation (ORIF) procedure History of partial thyroidectomy Social History household members: none Smoking Status: Current every day smoker tobacco type: cigarettes alcohol intake: never substance use type: does not use ROS ROS ED Constitutional Constitutional ED: Denies chills or fever(s) ENT ENT ED: Denies rhinorrhea Cardiovascular Cardiovascular: Denies chest pain Respiratory/Chest Respiratory/Chest: Denies dyspnea Gastrointestinal Gastrointestinal: Reports other Details: No incontinence. ; Denies abdominal pain, constipation, diarrhea, melena, nausea or vomiting Genitourinary Genitourinary ED: Reports other Details: No urinary dysfunction, difficulty starting or stopping stream. ; Denies dysuria, hematuria or urinary frequency Musculoskeletal Musculoskeletal: Reports back pain Integumentary Denies rash Neurologic Neurologic: Denies paresthesias or weakness Endocrine Endocrinology: Denies polydipsia or polyuria Hematologic/Lymphatic Hematologic/Lymphatic: Denies lymphadenopathy Allergic/Immunologic Allergic/Immunologic ED: Denies urticaria EXAM Physical Exam Const Vital Signs: 09/09/22 10:19 Temperature 97.0 F L Temperature Source Temporal Pulse Rate 79 Respiratory Rate 18 Blood Pressure 214/105 H Blood Pressure Mean 141 Pulse Ox 99 Oxygen Delivery Method Room Air Positive well nourished and well developed Constitutional Narrative: Patient is lying on her right side which is more comfortable for her. She is watching a movie on her phone when I enter the room. General Appearance ED: well developed and NAD HEENT Reports moist mucous membranes Eyes EOMs intact bilaterally Neck no lymphadenopathy and no JVD Resp normal respiratory effort and clear to auscultation bilaterally Cardio regular rate and regular rhythm GI normal to inspection, nondistended, normoactive bowel sounds and soft to palpation GI Narrative: No mass. No tenderness. Bowel sounds are normal. Narrative: No CVA tenderness. Back/Spine Back/Spine Narrative: Patient does have some paraspinal tenderness down quite low. This is really at about the SI joint and lumbar junction. More of this is on the left than the right. No real notable sciatic notch or buttock tenderness. Extremity normal to inspection General Extremety ED: Negative for tenderness Neuro no sensory deficits noted Neuro Narrative: Patient has +1 bilateral patellar and ankle reflexes. Sensation is intact. No sign of weakness. Sensorium / Orientation: alert; Negative for confused, lethargic or stuporous Motor Exam: strength 5/5 throughout Deep Tendon Reflexes: Rt Patellar (L4): 1+, Lt Patellar (L4): 1+, Rt Ankle (S1): 1+ and Lt Ankle (S1): 1+ Deep Tendon Reflexes Back: Rt Patellar (L4): 1+, Lt Patellar (L4): 1+, Rt Ankle (S1): 1+ and Lt Ankle (S1): 1+ Psych mental status grossly normal Skin no rashes or lesions noted MDM MDM MDM Narrative Medical decision making narrative: Patient is having the same symptoms of back pain just slightly more. There is been no acute trauma recently. She states last week she did carry some bottles of water. They were not that heavy but she thinks that may have aggravated her back. There is no fevers or chills. I do not think further imaging will be of benefit. She has had an MRI within the last 10 days. She has follow-up available with a neurosurgeon at [facility]. Discharge Plan Triage Chief Complaint: Back ED Provider: Godfrey White Dx/Rx/DC Orders Clinical Impression: Acute exacerbation of chronic low back pain Instructions: ED Back Pain (Acute or Chronic) Prescriptions: No Action atorvastatin 80 mg tablet 80 mg PO QHS budesonide-formoterol [Symbicort] 160-4.5 mcg/actuation HFA aerosol inhaler 2 puff inhalation BID albuterol sulfate 90 mcg/actuation HFA aerosol inhaler 2 puff inhalation Q6H PRN (Reason: SOB) pantoprazole 40 mg tablet,delayed release (DR/EC) 40 mg PO DAILY gabapentin 300 mg capsule 300 mg PO TID cholecalciferol (vitamin D3) 50 mcg (2,000 unit) capsule 50 mcg PO DAILY Qty: 90 3RF (DME) FreeStyle Sandra 14 Day Sensor Kit See Rx Instructions .Route Qty: 2 5RF Rx Instructions: As directed insulin glargine 100 unit/mL (3 mL) insulin pen 25 unit SC BREAKFAST ipratropium-albuterol 0.5 mg-3 mg(2.5 mg base)/3 mL solution for nebulization 3 ml inhalation 4X/DAY PRN (Reason: sob) loratadine 10 mg tablet 10 mg PO DAILY acetaminophen 500 mg tablet 1,000 mg PO Q8H PRN (Reason: Pain) lisinopril-hydrochlorothiazide 20-25 mg tablet 1 tab PO DAILY Label Comments: TAKE TWO (2) TABLETS BY MOUTH ONCE DAILY varenicline 0.5 mg tablet 1 mg PO BID insulin lispro [Humalog KwikPen Insulin] 100 unit/mL insulin pen 10 unit subcut TIDWMEAL Qty: 15 3RF Protocol: 4. Sliding Scale Insulin High-Med Dosing Condition: 150-199 mg/dl = 2 units Condition: 200-259 mg/dl = 4 units Condition: 260-324 mg/dl = 6 units Condition: 325-374 mg/dl = 8 units Condition: 375-409 mg/dl = 10 units Condition: 410-449 mg/dl = 11 units Condition: Greater than 449 call physician Protocol Text: - Use for Total Daily Dose of Insulin 56-80 units - Patient who are insulin resistant or septic HIGH MEDIUM DOSING ALGORITHM (DME) pen needle, diabetic [BD Ultra-Fine Sissy Pen Needle] 32 gauge x 5/32 needle See Rx Instructions .ROUTE .MEDSUPPLY Qty: 150 3RF Rx Instructions: 5 times daily Primary Care Provider: Sylvie Alcala Referrals: Sylvie Alcala DO [Primary Care Provider] - As Needed Activity Restrictions/Additional Instructions: Follow-up as soon as possible with your neurosurgeon at [facility]. Disposition Disposition: Home, Self Care
[2022-09-09] MEDS: cycloBENZAPRine HCl 10 MG Tablet PO (10:59)
[2022-09-09] MEDS: oxyCODONE 5 MG Tablet PO (10:59)
== END 2022-09-09 11:25 | disposition home or self-care (01) ==
PROVIDERS: Emergency Provider Emergency Medicine; PCP Family Medicine; Visit Provider Emergency Medicine
DX: M54.50 Low back pain, unspecified (principal); G47.30 Sleep apnea, unspecified; G89.29 Other chronic pain; F17.210 Nicotine dependence, cigarettes, uncomplicated
CPT/HCPCS: 99285

== ENCOUNTER 2022-09-12 18:50 | Emergency (ER) | payer MEDICAID, SELFPAY ==
[2022-09-12 18:52] VITALS: BP 150/91; PULSE 93; RESP 16; TEMP 36.8; O2SAT 98; BMI 30.2
[2022-09-12] MEDS: HYDROcodone Bitartrate/Apap 5/325 Tablet PO (21:18)
--- NOTE | 2022-09-12 21:20 | RAD_ITS ---
EXAM: XR RIGHT ANKLE COMPLETE, 3 OR MORE VIEWS CLINICAL INDICATION: Injury/Pain TECHNIQUE: Frontal, lateral and oblique views of the right ankle. This report was created using kwiry report generation technology. COMPARISON: None. FINDINGS: BONES/JOINTS: Unremarkable. No acute fracture. No subluxation. Normal alignment. Preservation of the joint space. No sclerotic or destructive changes observed. SOFT TISSUES: Unremarkable. No soft tissue swelling or gas. No radiopaque foreign body. RAD/Ankle min 3 Views IMPRESSION: Negative right ankle x-rays. Electronically Signed: Juan Daniel Feliciano MD at 21:44 EST ,
--- NOTE | 2022-09-12 21:20 | RAD_ITS ---
EXAM: XR LEFT TOES, 2 OR MORE VIEWS CLINICAL INDICATION: Pain due to blunt trauma -- Second and third left toe TECHNIQUE: Frontal, lateral and oblique views of the toes of the left foot. This report was created using Tapestry report Quantum4D technology. COMPARISON: None. FINDINGS: BONES/JOINTS: Unremarkable. No acute fracture. No dislocation. SOFT TISSUES: Unremarkable. No radiopaque foreign body. RAD/Toe(s) Min 2 Views IMPRESSION: Negative left toe x-rays. Electronically Signed: Juan Daniel Feliciano MD at 21:47 EST ,
--- NOTE | 2022-09-12 21:27 | ED.VIS.FALL ---
HPI HPI - Fall History of Present Illness Chief Complaint: Fall Detail of Chief Complaint: Onto her knees after stubbing her left toes Informant: patient Occured/Mechanism Occurred: Hours Mechanism/Context: Yes same level fall Narrative: Patient states she stubbed her toe fell onto her knees. She complains of back pain because it was dark. She has history of back surgery. Fall from Height (ft): . Standing standing position Fall down steps #: Not applicable Usually ambulates: Without assistance Pain/Injury Location: Residents Pain Location: lower extremity (Right ankle and left second and third toe also complains of bilateral knee pain) Current Severity: Mild Maximum Severity: Moderate Worsened by: Weightbearing Relieved by: Nothing Associated Symptoms Associated Symptoms: Negative for Parasthesias, Weakness, Loss of function, Inability to ambulate or Loss of consciousness Length of loss of consciousness: Not applicable Narrative Narrative: Patient is a 56-year-old woman who stumbled. She landed on her knees. She stubbed her left toes. She complains of left toe pain. She also complains of right ankle pain. She localizes the pain over the anterior right ankle. She states weightbearing causes her pain. She also complains of pain over her right and left knee. She does complain of lower back pain. There is no history of trauma to the back. She has had surgery. She denies paresthesia, anesthesia or motor weakness of her lower extremities. She denies head trauma. Denies neck pain. Tetanus Immunization: 5-10 years Prior similar symptoms: Yes Recent Illness/Hospitalization: No PFSH PFSH Medical History Anxiety Arthritis Asthma Back pain Back pain Back pain Cardiology follow-up encounter Chronic neck and back pain COPD (chronic obstructive pulmonary disease) Coronary artery calcification seen on CAT scan CPAP (continuous positive airway pressure) dependence Depression Diabetes Dietary restriction Difficulty balancing Essential hypertension Gastric reflux High cholesterol History of arthritis History of echocardiogram History of edema History of pain when walking History of renal disease History of stomach ulcers History of stress test Hypertension Injury of head and neck Insulin dependent diabetes mellitus Knee pain Lumbar stenosis Obesity Osteomyelitis Shortness of breath on exertion Shoulder pain Sleep apnea Smoker Spinal fusion failure Strain of muscle, fascia and tendon of pelvis, initial encounter Strain of right hip and thigh Strain of right inguinal region Strain of unspecified muscles, fascia and tendons at thigh level, right thigh, initial encounter Syncope Thyroid disease Type 2 diabetes mellitus Walker as ambulation aid Wears glasses Home Medications insulin glargine 100 unit/mL (3 mL) subcutaneous pen 25 unit subcut BREAKFAST DIABETES 11/03/20 [History Last Taken 06/14/22] albuterol sulfate 90 mcg/actuation aerosol inhaler 2 puff inhalation Q6H PRN SOB 06/14/21 [History Last Taken 06/14/22] atorvastatin 80 mg tablet 80 mg PO QHS CHOLESTEROL 06/14/21 [History Last Taken 06/13/22] budesonide-formoterol HFA 160 mcg-4.5 mcg/actuation aerosol inhaler (Symbicort) 2 puff inhalation BID ASTHMA 06/14/21 [History Last Taken 12/25/21] pantoprazole 40 mg tablet,delayed release 40 mg PO DAILY GERD 06/14/21 [History Last Taken 06/14/22] ipratropium 0.5 mg-albuterol 3 mg (2.5 mg base)/3 mL nebulization soln 3 ml inhalation 4X/DAY PRN sob 11/27/21 [History Last Taken 11/25/21] loratadine 10 mg tablet 10 mg PO DAILY allergies 11/27/21 [History Last Taken 02/21/22] acetaminophen 500 mg tablet 1,000 mg PO Q8H PRN Pain 02/22/22 [History Last Taken 06/14/22] lisinopril 20 mg-hydrochlorothiazide 25 mg tablet 1 tab PO DAILY Check with primary doctor 04/23/22 [History Last Taken 06/14/22] cholecalciferol (vitamin D3) 50 mcg (2,000 unit) capsule 50 mcg PO DAILY #90 caps 08/15/22 [Rx Last Taken Unknown] flash glucose sensor (FreeStyle Sandra 14 Day Sensor kit) #2 ea 08/15/22 [Rx Last Taken Unknown] gabapentin 300 mg capsule 300 mg PO TID 08/15/22 [History Last Taken Unknown] varenicline 0.5 mg tablet 1 mg PO BID 08/15/22 [History Last Taken Unknown] insulin lispro 100 unit/mL subcutaneous pen (Humalog KwikPen (U-100) Insulin) 10 unit subcut TIDWMEAL DM #15 mL 09/03/22 [Rx Last Taken Unknown] pen needle, diabetic 32 gauge x 5/32 (BD Ultra-Fine Sissy Pen Needle) #150 ea 09/03/22 [Rx Last Taken Unknown] hydrocodone-acetaminophen 5-325mg 5mg-325mg 1 tab PO Q6H PRN PRN Pain 3 days #10 TABLETS 09/12/22 [Rx Last Taken Unknown] Allergy/AdvReac Type Severity Reaction Status Date / Time duloxetine [From Cymbalta] Allergy Unknown Verified 09/12/22 18:52 pregabalin [From Lyrica] Allergy Unknown Verified 09/12/22 18:52 Penicillins AdvReac Mild leaves a Verified 09/12/22 18:52 bad taste in her mouth. aspirin AdvReac Upset Verified 09/12/22 18:52 Stomach NSAIDS (Non-Steroidal AdvReac Upset Verified 09/12/22 18:52 Anti-Inflamma Stomach Family History Father Cancer Unclear type. Mother Lung cancer Concurrent tobacco use history. Surgical History History of ankle surgery History of History of carpal tunnel release History of hysterectomy History of open reduction and internal fixation (ORIF) procedure History of partial thyroidectomy no surgical history Social History household members: none Smoking Status: Current every day smoker tobacco type: cigarettes alcohol intake: never substance use type: does not use ROS ROS ED Constitutional Constitutional ED: Denies chills, fever(s), subjective, sweats or weight loss Eyes Eyes: Denies blurry vision or change in vision ENT ENT ED: Denies ear pain, rhinorrhea or sore throat Cardiovascular Cardiovascular: Denies chest pain or palpitations Respiratory/Chest Respiratory/Chest: Denies cough or dyspnea Gastrointestinal Gastrointestinal: Denies abdominal pain, nausea or vomiting Genitourinary Genitourinary ED: Denies hematuria Musculoskeletal Musculoskeletal: Reports back pain and other Details: Documented HPI narrative ; Denies arthralgias, myalgias or neck pain Integumentary Denies Abrasions Neurologic Neurologic: Denies paresthesias or weakness Psychiatric Psychiatric: Reports anxiety and depression Hematologic/Lymphatic Hematologic/Lymphatic: Denies easy bleeding or easy bruising EXAM Physical Exam Const Vital Signs: 09/12/22 18:52 Temperature 98.2 F Temperature Source Temporal Pulse Rate 93 Respiratory Rate 16 Blood Pressure 150/91 H Blood Pressure Mean 110 Pulse Ox 98 Oxygen Delivery Method Room Air Positive well nourished and well developed General Appearance ED: well developed and NAD HEENT Reports normocephalic HEENT Narrative: Is no evidence of facial trauma. atraumatic Eyes PERRL and EOMs intact bilaterally Neck full ROM and no lymphadenopathy Chest Wall inspection of chest normal and palpation of chest normal Resp normal respiratory effort, no retractions and clear to auscultation bilaterally Cardio regular rate, regular rhythm, S1 normal heart sound, S2 normal heart sound and no murmurs Back/Spine no CVA tenderness Cervical Spine: Negative for cervical spine tenderness Thoracic Spine / Upper Back: ROM limited Lumbar Spine / Lower Back: lumbar spinal tenderness, paraspinal muscle tenderness and straight leg raise negative bilaterally Extremity Extremity Narrative: Patient right and left knee appear normal. Patella is not ballotable and there is no effusion. There is no laxity varus valgus stress testing. There is no limitation of movement. Negative modified Joanne's test and Miranda's test bilaterally. Examination of the right ankle reveals soft tissue swelling anteriorly. There is no pain ovation over the lateral malleolus. She complains of mild pain at the tip of the medial malleolus. There is no pain ovation over the anterior talofibular or calcaneofibular ligament. No lax with drawer testing. No pain ovation of the base of the fifth metatarsal. Patient has swelling and pain to palpation of the second and third left toe. There is no subungual hematoma noted. Neuro oriented x3, CN's II-XII intact bilaterally, moves all extremities, no focal motor deficits and no sensory deficits noted Sensorium / Orientation: alert Psych Psych Narrative: Anxious and exaggerated response to tactile stimulus Skin Skin Narrative: Discoloration of the second and third toe with soft tissue swelling MDM MDM MDM Narrative Medical decision making narrative: Based on the [place] knee rule imaging of the right or left knee are not indicated. Imaging of the back is not indicated as no direct trauma. Because she has pain ovation of the right ankle with soft tissue swelling x-ray was obtained to evaluate for sprain versus contusion versus fracture. X-ray of the second and third left toe was obtained to evaluate for contusion versus fracture. Patient was medicated with oral analgesics. Radiography Diagnostic Testing: Three-view x-ray of the right ankle was independently reviewed and interpreted by me at 2135 as negative. There is no fracture, subluxation or dislocation. Three-view x-ray of the left second and third toe was independently reviewed and interpreted by me at 2135 as negative. There is no fracture, subluxation dislocation. Discharge Plan Triage Chief Complaint: Fall ED Provider: Zachary Ni Dx/Rx/DC Orders Clinical Impression: Contusion of right ankle, initial encounter, Contusion of left lesser toe(s) without damage to nail, initial encounter, Contusion of right knee, initial encounter, Contusion of left knee, initial encounter, Low back strain, Injury due to fall Instructions: ED Back Sprain/Strain, ED Contusion, Lower Extremity Prescriptions: New hydrocodone-acetaminophen [hydrocodone-acetaminophen] 5-325 mg tablet 1 tab PO Q6H PRN PRN (Reason: Pain) 3 Days Qty: 10 0RF No Action atorvastatin 80 mg tablet 80 mg PO QHS budesonide-formoterol [Symbicort] 160-4.5 mcg/actuation HFA aerosol inhaler 2 puff inhalation BID albuterol sulfate 90 mcg/actuation HFA aerosol inhaler 2 puff inhalation Q6H PRN (Reason: SOB) pantoprazole 40 mg tablet,delayed release (DR/EC) 40 mg PO DAILY gabapentin 300 mg capsule 300 mg PO TID cholecalciferol (vitamin D3) 50 mcg (2,000 unit) capsule 50 mcg PO DAILY Qty: 90 3RF (DME) FreeStyle Sandra 14 Day Sensor Kit See Rx Instructions .Route Qty: 2 5RF Rx Instructions: As directed insulin glargine 100 unit/mL (3 mL) insulin pen 25 unit SC BREAKFAST ipratropium-albuterol 0.5 mg-3 mg(2.5 mg base)/3 mL solution for nebulization 3 ml inhalation 4X/DAY PRN (Reason: sob) loratadine 10 mg tablet 10 mg PO DAILY acetaminophen 500 mg tablet 1,000 mg PO Q8H PRN (Reason: Pain) lisinopril-hydrochlorothiazide 20-25 mg tablet 1 tab PO DAILY Label Comments: TAKE TWO (2) TABLETS BY MOUTH ONCE DAILY varenicline 0.5 mg tablet 1 mg PO BID insulin lispro [Humalog KwikPen Insulin] 100 unit/mL insulin pen 10 unit subcut TIDWMEAL Qty: 15 3RF Protocol: 4. Sliding Scale Insulin High-Med Dosing Condition: 150-199 mg/dl = 2 units Condition: 200-259 mg/dl = 4 units Condition: 260-324 mg/dl = 6 units Condition: 325-374 mg/dl = 8 units Condition: 375-409 mg/dl = 10 units Condition: 410-449 mg/dl = 11 units Condition: Greater than 449 call physician Protocol Text: - Use for Total Daily Dose of Insulin 56-80 units - Patient who are insulin resistant or septic HIGH MEDIUM DOSING ALGORITHM (DME) pen needle, diabetic [BD Ultra-Fine Sissy Pen Needle] 32 gauge x 5/32 needle See Rx Instructions .ROUTE .MEDSUPPLY Qty: 150 3RF Rx Instructions: 5 times daily Primary Care Provider: Sylvie Alcala Referrals: Sylvie Alcala, DO [Primary Care Provider] -
== END 2022-09-12 21:54 | disposition home or self-care (01) ==
LOC: ED 21:00
PROVIDERS: Emergency Provider Emergency Medicine; PCP Family Medicine; Visit Provider Emergency Medicine
DX: S39.012A Strain of muscle, fascia and tendon of lower back, initial encounter (principal); J44.9 Chronic obstructive pulmonary disease, unspecified; Z79.4 Long term (current) use of insulin; E11.9 Type 2 diabetes mellitus without complications; I10 Essential (primary) hypertension; S80.02XA Contusion of left knee, initial encounter; W18.30XA Fall on same level, unspecified, initial encounter; M25.571 Pain in right ankle and joints of right foot; E78.00 Pure hypercholesterolemia, unspecified; I25.10 Atherosclerotic heart disease of native coronary artery without angina pectoris; S90.01XA Contusion of right ankle, initial encounter; S80.01XA Contusion of right knee, initial encounter; S90.122A Contusion of left lesser toe(s) without damage to nail, initial encounter
CPT/HCPCS: 73610; 73660; 99283

== ENCOUNTER 2022-09-29 08:56 | Emergency (ER) | payer MEDICAID, SELFPAY ==
[2022-09-29 08:58] VITALS: BP 255/126; PULSE 95; RESP 18; TEMP 36.6; O2SAT 99; BMI 30.2
--- NOTE | 2022-09-29 09:22 | ED.VIS.BACK ---
HPI History of Present Illness Chief Complaint: Back Informant: patient Onset/Context/Timing Onset: Days (3) Context: Gradual Onset Chronic pain exacerbated by: Lifting a basket Injury: lifting Timing: Continuous Quality: Sharp Location: Lumbar Worsened by: improves with Movement Relieved by: Nothing Associated Symptoms Associated Symptoms: Negative for Numbness, Tingling, Radiation to Right Leg, Radiation to Left Leg, Fever, Abdominal Pain, Dysuria, Unable to Ambulate, Unable to Transfer, Urinary Retention, Urinary Incontinence, Constipation or Fecal Incontinence Narrative Narrative: Patient presents with back pain that has been getting worse over the past 3 days. Patient states she has a history of chronic back pain and is scheduled to start with pain management tomorrow. Patient states she was lifting a basket 2 days ago and felt something pull in her low back. Patient describes her pain as sharp. Patient states the pain is over the lower lumbar area. Patient denies any radiation of the pain. Patient denies any bowel or bladder changes. Patient denies any saddle anesthesia. Patient states her pain is worse with movement. Patient states nothing helps with the pain. Patient admits to nausea but denies any vomiting. Prior similar symptoms: With Prior Back Pain [facility] Medical History Anxiety Arthritis Asthma Back pain Back pain Back pain Cardiology follow-up encounter Chronic neck and back pain COPD (chronic obstructive pulmonary disease) Coronary artery calcification seen on CAT scan CPAP (continuous positive airway pressure) dependence Depression Diabetes Dietary restriction Difficulty balancing Essential hypertension Gastric reflux High cholesterol History of arthritis History of echocardiogram History of edema History of pain when walking History of renal disease History of stomach ulcers History of stress test Hypertension Injury of head and neck Insulin dependent diabetes mellitus Knee pain Lumbar stenosis Obesity Osteomyelitis Shortness of breath on exertion Shoulder pain Sleep apnea Smoker Spinal fusion failure Strain of muscle, fascia and tendon of pelvis, initial encounter Strain of right hip and thigh Strain of right inguinal region Strain of unspecified muscles, fascia and tendons at thigh level, right thigh, initial encounter Syncope Thyroid disease Type 2 diabetes mellitus Walker as ambulation aid Wears glasses Home Medications insulin glargine 100 unit/mL (3 mL) subcutaneous pen 25 unit subcut BREAKFAST DIABETES 11/03/20 [History Last Taken 06/14/22] albuterol sulfate 90 mcg/actuation aerosol inhaler 2 puff inhalation Q6H PRN SOB 06/14/21 [History Last Taken 06/14/22] atorvastatin 80 mg tablet 80 mg PO QHS CHOLESTEROL 06/14/21 [History Last Taken 06/13/22] budesonide-formoterol HFA 160 mcg-4.5 mcg/actuation aerosol inhaler (Symbicort) 2 puff inhalation BID ASTHMA 06/14/21 [History Last Taken 12/25/21] pantoprazole 40 mg tablet,delayed release 40 mg PO DAILY GERD 06/14/21 [History Last Taken 06/14/22] ipratropium 0.5 mg-albuterol 3 mg (2.5 mg base)/3 mL nebulization soln 3 ml inhalation 4X/DAY PRN sob 11/27/21 [History Last Taken 11/25/21] loratadine 10 mg tablet 10 mg PO DAILY allergies 11/27/21 [History Last Taken 02/21/22] acetaminophen 500 mg tablet 1,000 mg PO Q8H PRN Pain 02/22/22 [History Last Taken 06/14/22] lisinopril 20 mg-hydrochlorothiazide 25 mg tablet 1 tab PO DAILY Check with primary doctor 04/23/22 [History Last Taken 06/14/22] cholecalciferol (vitamin D3) 50 mcg (2,000 unit) capsule 50 mcg PO DAILY #90 caps 08/15/22 [Rx Last Taken Unknown] flash glucose sensor (FreeStyle Sandra 14 Day Sensor kit) #2 ea 08/15/22 [Rx Last Taken Unknown] gabapentin 300 mg capsule 300 mg PO TID 08/15/22 [History Last Taken Unknown] varenicline 0.5 mg tablet 1 mg PO BID 08/15/22 [History Last Taken Unknown] insulin lispro 100 unit/mL subcutaneous pen (Humalog KwikPen (U-100) Insulin) 10 unit subcut TIDWMEAL DM #15 mL 09/03/22 [Rx Last Taken Unknown] pen needle, diabetic 32 gauge x /32 (BD Ultra-Fine Sissy Pen Needle) #150 ea 09/03/22 [Rx Last Taken Unknown] hydrocodone-acetaminophen 5-325mg 5mg-325mg 1 tab PO Q6H PRN PRN Pain 3 days #10 TABLETS 09/12/22 [Rx Last Taken Unknown] Allergy/AdvReac Type Severity Reaction Status Date / Time duloxetine [From Cymbalta] Allergy Unknown Verified 09/29/22 08:57 pregabalin [From Lyrica] Allergy Unknown Verified 09/29/22 08:57 Penicillins AdvReac Mild leaves a Verified 09/29/22 08:57 bad taste in her mouth. aspirin AdvReac Upset Verified 09/29/22 08:57 Stomach NSAIDS (Non-Steroidal AdvReac Upset Verified 09/29/22 08:57 Anti-Inflamma Stomach Family History Father Cancer Unclear type. Mother Lung cancer Concurrent tobacco use history. Surgical History History of ankle surgery History of History of carpal tunnel release History of hysterectomy History of open reduction and internal fixation (ORIF) procedure History of partial thyroidectomy Social History household members: none Smoking Status: Current every day smoker tobacco type: cigarettes alcohol intake: never substance use type: does not use ROS ROS ED Constitutional Constitutional ED: Denies chills or fever(s) Eyes Eyes: Denies blurry vision or change in vision ENT ENT ED: Denies rhinorrhea or sore throat Cardiovascular Cardiovascular: Denies chest pain or palpitations Respiratory/Chest Respiratory/Chest: Denies cough or dyspnea Gastrointestinal Gastrointestinal: Reports nausea; Denies vomiting Genitourinary Genitourinary ED: Denies dysuria or hematuria Musculoskeletal Musculoskeletal: Reports back pain; Denies neck pain Integumentary Denies abscess or rash Neurologic Neurologic: Denies headache(s) or weakness Allergic/Immunologic Allergic/Immunologic ED: Denies mouth swelling or urticaria EXAM Physical Exam Const Vital Signs: 09/29/22 08:58 Temperature 97.8 F Temperature Source Temporal Pulse Rate 95 Respiratory Rate 18 Blood Pressure 255/126 H Blood Pressure Mean 169 Pulse Ox 99 Oxygen Delivery Method Room Air Positive well nourished and well developed General Appearance ED: well developed and NAD HEENT Reports moist mucous membranes Neck supple and no JVD Back/Spine Back/Spine Narrative: There is tenderness and spasm over the lower lumbar paraspinal muscles. There is no bony crepitance or step-off. There is no edema or ecchymosis. There is mild midline tenderness. Range of motion was limited in all motions of the lumbar spine secondary to pain. There is a well-healed midline scar in the lumbar area. There is no erythema or warmth. Strength is 5/5 bilaterally in the lower extremities. There are no sensory deficits noted. Deep tendon reflexes are 2/4 bilaterally in the lower extremities. General Back: scar(s) Lumbar Spine / Lower Back: ROM limited Extremity normal to inspection Neuro oriented x3 and no sensory deficits noted Sensorium / Orientation: alert Motor Exam: strength 5/5 throughout Deep Tendon Reflexes: Rt Patellar (L4): 2+, Lt Patellar (L4): 2+, Rt Ankle (S1): 2+ and Lt Ankle (S1): 2+ Deep Tendon Reflexes Back: Rt Patellar (L4): 2+, Lt Patellar (L4): 2+, Rt Ankle (S1): 2+ and Lt Ankle (S1): 2+ MDM MDM MDM Narrative Medical decision making narrative: Patient was given an injection of morphine here. Patient was also given an injection of Norflex. Patient was instructed use ice to the area. I do not feel x-rays are necessary at this time since this is a chronic condition and most likely muscular strain that exacerbated her chronic pain. Patient was instructed to follow-up with her pain management appointment tomorrow as scheduled. Patient was advised that further prescriptions will need to be prescribed by pain management. Patient understands and is agreeable with the plan. All questions were answered. Discharge Plan Triage Chief Complaint: Back ED Provider: Oni Chavez Dx/Rx/DC Orders Clinical Impression: Acute back pain, Degenerative disc disease, lumbar, Tobacco abuse Instructions: ED Back Pain (Acute or Chronic) Prescriptions: No Action atorvastatin 80 mg tablet 80 mg PO QHS budesonide-formoterol [Symbicort] 160-4.5 mcg/actuation HFA aerosol inhaler 2 puff inhalation BID albuterol sulfate 90 mcg/actuation HFA aerosol inhaler 2 puff inhalation Q6H PRN (Reason: SOB) pantoprazole 40 mg tablet,delayed release (DR/EC) 40 mg PO DAILY gabapentin 300 mg capsule 300 mg PO TID cholecalciferol (vitamin D3) 50 mcg (2,000 unit) capsule 50 mcg PO DAILY Qty: 90 3RF (DME) Reciclata Sandra 14 Day Sensor Kit See Rx Instructions .Route Qty: 2 5RF Rx Instructions: As directed insulin glargine 100 unit/mL (3 mL) insulin pen 25 unit SC BREAKFAST ipratropium-albuterol 0.5 mg-3 mg(2.5 mg base)/3 mL solution for nebulization 3 ml inhalation 4X/DAY PRN (Reason: sob) loratadine 10 mg tablet 10 mg PO DAILY acetaminophen 500 mg tablet 1,000 mg PO Q8H PRN (Reason: Pain) lisinopril-hydrochlorothiazide 20-25 mg tablet 1 tab PO DAILY Label Comments: TAKE TWO (2) TABLETS BY MOUTH ONCE DAILY varenicline 0.5 mg tablet 1 mg PO BID hydrocodone-acetaminophen [hydrocodone-acetaminophen] 5-325 mg tablet 1 tab PO Q6H PRN PRN (Reason: Pain) 3 Days Qty: 10 0RF insulin lispro [Humalog KwikPen Insulin] 100 unit/mL insulin pen 10 unit subcut TIDWMEAL Qty: 15 3RF Protocol: 4. Sliding Scale Insulin High-Med Dosing Condition: 150-199 mg/dl = 2 units Condition: 200-259 mg/dl = 4 units Condition: 260-324 mg/dl = 6 units Condition: 325-374 mg/dl = 8 units Condition: 375-409 mg/dl = 10 units Condition: 410-449 mg/dl = 11 units Condition: Greater than 449 call physician Protocol Text: - Use for Total Daily Dose of Insulin 56-80 units - Patient who are insulin resistant or septic HIGH MEDIUM DOSING ALGORITHM (DME) pen needle, diabetic [BD Ultra-Fine Sissy Pen Needle] 32 gauge x 5/32 needle See Rx Instructions .ROUTE .MEDSUPPLY Qty: 150 3RF Rx Instructions: 5 times daily Primary Care Provider: Sylvie Alcala Referrals: Sylvie Alcala DO [Primary Care Provider] - 3-5 Days Disposition Disposition: Home, Self Care
[2022-09-29] MEDS: Orphenadrine 60 MG/2 ML Ampul IM (09:48)
[2022-09-29] MEDS: Morphine 4 MG/ML Syringe IM (09:48)
[2022-09-29 10:07] VITALS: BP 178/94; PULSE 88; RESP 16; O2SAT 97
== END 2022-09-29 10:08 | disposition home or self-care (01) ==
PROVIDERS: Emergency Provider Emergency Medicine; PCP Family Medicine; Visit Provider Emergency Medicine
DX: M51.36 Other intervertebral disc degeneration, lumbar region (principal); J44.9 Chronic obstructive pulmonary disease, unspecified; E11.9 Type 2 diabetes mellitus without complications; Z79.4 Long term (current) use of insulin; E78.00 Pure hypercholesterolemia, unspecified; G89.29 Other chronic pain; F17.210 Nicotine dependence, cigarettes, uncomplicated; I25.10 Atherosclerotic heart disease of native coronary artery without angina pectoris; I10 Essential (primary) hypertension; Z79.899 Other long term (current) drug therapy
CPT/HCPCS: 96372; 99284

== ENCOUNTER → 2022-10-12 | Outpatient (CLI) | payer MEDICAID, SELFPAY ==
[2022-10-12 13:47] LABS: Mucous, Urine 0 SEEN /hpf (<or=2+); Red Blood Cells-Urine 0 SEEN /hpf (0-5); Squamous Epithelial Cells - UA 0 SEEN /hpf (5-10)
[2022-10-12 14:09] LABS: Color, Urine Yellow (Yellow); Glucose, Dipstick 50 mg/dl (Normal); Ketone-Dipstick Negative (Negative); Leukocyte Esterase-Dipstick 100 /ul (Negative); Nitrite-Dipstick Positive (Negative); Occult Blood-Urine 25 /ul (Negative); Protein-Dipstick 500 mg/dl (Negative); Specific Gravity, Urine 1.015 (1.002-1.030); Urine Bilirubin Dipstick Negative (Negative); Urine Clarity Clear (Clear); Urine Urobilinogen Normal (Normal); Urine pH 6.5 (5.0 - 8.0)
[2022-10-12 14:21] LABS: Bacteria 3+ /hpf (None Seen); White Blood Cells 10-25 SEEN /hpf (0-5)
[2022-10-12 14:59] LABS: AST(SGOT) 21 U/L (15-37); Alanine Aminotransfer ALT/SGPT 21 U/L (13-56); Albumin, Serum 3.8 g/dL (3.2-5.0); Alkaline Phosphatase 98 U/L (45-117); Anion Gap 7 (5-15); BUN 26 mg/dL (7-18); Calcium,Total 9.9 mg/dL (8.5-10.1); Chloride 103 mmol/L (98-107); Creatinine, Serum 1.18 mg/dL (0.55-1.02); EST Glomerular Filtration Rate 50 mL/min (>60); Est Glom Filt Rate - Afr Amer 61 mL/min (>60); Globulin 3.7 g/dL (2.2-4.2); Glucose 179 mg/dL (74-106); Potassium 4.1 mmol/L (3.5-5.1); Protein, Total 7.5 g/dL (6.4-8.2); Sodium Level 139 mmol/L (136-145)
[2022-10-15 08:54] LABS: Thyroid Peroxidase AB < 9 IU/mL (0-34)
== END | disposition home or self-care (01) ==
LOC: LAB 13:46
PROVIDERS: PCP Family Medicine; Referring Provider Nurse Practitioner Family; Visit Provider Nurse Practitioner Family
DX: R10.9 Unspecified abdominal pain (principal); E11.9 Type 2 diabetes mellitus without complications; R79.89 Other specified abnormal findings of blood chemistry
CPT/HCPCS: 36415; 80053; 81001; 84443; 86376; 87077; 87086; 87088; 87186

== ENCOUNTER 2022-10-13 17:13 | Emergency (ER) | payer MEDICAID, SELFPAY ==
[2022-10-13 17:14] VITALS: BP 235/113; PULSE 104; RESP 34; TEMP 36.6; O2SAT 99; BMI 32.8
--- NOTE | 2022-10-13 17:35 | CT_ITS ---
EXAM: CT ABDOMEN AND PELVIS WITHOUT INTRAVENOUS CONTRAST CLINICAL INDICATION: right flank pain TECHNIQUE: Helically acquired images were obtained of the abdomen and pelvis without intravenous contrast. This CT exam was performed using one or more of the following dose reduction techniques: automated exposure control, adjustment of the mA and/or kV according to patient size, and/or use of iterative reconstruction technique. This report was created using [employer] report generation technology. COMPARISON: 05/27/2021 FINDINGS: LOWER THORAX: Unremarkable. Lung bases are clear. No cardiomegaly. No significant pericardial effusion. ABDOMEN: LIVER: Unremarkable. Homogeneous. GALLBLADDER AND BILE DUCTS: Unremarkable. No calcified gallstones. No gallbladder distention or wall edema. No intra- or extrahepatic biliary ductal dilation. PANCREAS: Unremarkable. No focal cystic mass. SPLEEN: Unremarkable. Normal size without focal cystic or solid mass. ADRENALS: Unremarkable. No nodules. KIDNEYS AND URETERS: Unremarkable. Normal renal size and position. No hydronephrosis. STOMACH AND BOWEL: Unremarkable. No stomach or bowel distention. No focal inflammatory change. PELVIS: APPENDIX: No evidence of acute appendicitis. BLADDER: Unremarkable. REPRODUCTIVE: Unremarkable as visualized. No mass. ABDOMEN and PELVIS: INTRAPERITONEAL SPACE: Unremarkable. No ascites or other fluid collection. No free air. BONES/JOINTS: There is hardware seen within the lower lumbar spine from a posterior fusion of L4-5. No suspicious lytic or blastic abnormality. SOFT TISSUES: Unremarkable. No discrete abdominal or pelvic wall hernia. VASCULATURE: Unremarkable. Abdominal aorta is non-dilated. LYMPH NODES: Unremarkable. No enlarged lymph nodes. CT/Abdomen/Pelvis without Cont IMPRESSION: No acute findings in the abdomen or pelvis. Electronically Signed: Juan Daniel Feliciano MD at 18:37 EST ,
[2022-10-13] MEDS: 0.9% Normal Saline 1,000 ML 999 ML IV (17:40)
[2022-10-13] MEDS: Ondansetron 4 MG/2 ML Vial IV (17:41)
[2022-10-13] MEDS: Morphine 4 MG/ML Syringe IV ×2 (17:41→19:04)
[2022-10-13 17:52] LABS: Absolute Lymphocyte Count 3.05 X10^3/uL (0.83-4.51); Absolute Neutrophil Count 5.7 X10^3/uL (2.0-7.7); Basophil# 0.03 X10^3/uL; Basophil% 0.3 % (0-1); Eosinophil# 0.18 X10^3/uL; Eosinophils% 1.8 % (0-5); Hematocrit 39.8 % (37-47); Hemoglobin 12.6 g/dL (12.0-15.0); Lymphocyte # 3.05 X10^3/ul (0.83-4.51); Lymphocyte % 30.8 % (19-41); Mean Corp Hgb Conc 31.7 g/dL (32-36); Mean Corpuscular Volume 91.5 fL (81-99); Mean Platelet Vol. 11.2 fl (6.2-12.0); Monocyte# 0.91 X10^3/uL; Monocyte% 9.2 % (0-10); NRBC Flagged by Analyzer 0 % (0-5); Neutrophil # 5.69 X10^3/uL (2.7-7.7); Neutrophil % 57.6 % (47-70); Platelet Count 271 K/mm3 (150-450); RBC Distribution Width CV 12.9 % (11.6-14.6); RBC Distribution Width SD 43.7 fl (35.1-43.9); Red Blood Count 4.35 M/mm3 (4.2-5.4); White Blood Count 9.9 K/mm3 (4.4-11.0)
[2022-10-13 17:54] LABS: Mucous, Urine 0 SEEN /hpf (<or=2+)
[2022-10-13 18:08] LABS: Anion Gap 7 (5-15); BUN 20 mg/dL (7-18); Chloride 105 mmol/L (98-107); Creatinine, Serum 1.25 mg/dL (0.55-1.02); EST Glomerular Filtration Rate 47 mL/min (>60); Est Glom Filt Rate - Afr Amer 57 mL/min (>60); Estimated Creatinine Clearance 35.67 ml/min; Glucose 108 mg/dL (74-106); Potassium 3.8 mmol/L (3.5-5.1); Sodium Level 140 mmol/L (136-145)
--- NOTE | 2022-10-13 18:09 | ED.RN ---
PTRINGS OUT. STATES BLOOD SUGAR IS DROPPING. BLOOD SUGAR 46. PT GIVEN OJ,CHEESE,PEANUT BUTTER AND COOKIES WITH A GINGERALE
--- NOTE | 2022-10-13 18:12 | EX.ED.DYSGE1 ---
HPI <STEPHON Meredith - Last Filed: 10/13/22 19:58> History of Present Illness Chief Complaint: Flank Pain Narrative Narrative: 56-year-old female with PMH of HTN, DM2, CKD presents with few days of right flank pain that is waxing and waning. She has nausea but no vomiting. No urinary symptoms. She is having normal bowel movements with no melena or hematochezia. She has a remote history of back surgery but states this does not feel like her typical back pain. PFSH <STEPHON Meredith - Last Filed: 10/13/22 19:58> [facility] Medical History (Updated 10/13/22 @ 19:57 by STEPHON Meredith) Anxiety Arthritis Asthma Back pain Back pain Back pain Cardiology follow-up encounter Chronic neck and back pain COPD (chronic obstructive pulmonary disease) Coronary artery calcification seen on CAT scan CPAP (continuous positive airway pressure) dependence Depression Diabetes Dietary restriction Difficulty balancing Essential hypertension Gastric reflux High cholesterol History of arthritis History of echocardiogram History of edema History of pain when walking History of renal disease History of stomach ulcers History of stress test Hypertension Injury of head and neck Insulin dependent diabetes mellitus Knee pain Lumbar stenosis Obesity Osteomyelitis Shortness of breath on exertion Shoulder pain Sleep apnea Smoker Spinal fusion failure Strain of muscle, fascia and tendon of pelvis, initial encounter Strain of right hip and thigh Strain of right inguinal region Strain of unspecified muscles, fascia and tendons at thigh level, right thigh, initial encounter Syncope Thyroid disease Type 2 diabetes mellitus Walker as ambulation aid Wears glasses Home Medications insulin glargine 100 unit/mL (3 mL) subcutaneous pen 25 unit subcut BREAKFAST DIABETES 11/03/20 [History Last Taken 06/14/22] albuterol sulfate 90 mcg/actuation aerosol inhaler 2 puff inhalation Q6H PRN SOB 06/14/21 [History Last Taken 06/14/22] atorvastatin 80 mg tablet 80 mg PO QHS CHOLESTEROL 06/14/21 [History Last Taken 06/13/22] budesonide-formoterol HFA 160 mcg-4.5 mcg/actuation aerosol inhaler (Symbicort) 2 puff inhalation BID ASTHMA 06/14/21 [History Last Taken 12/25/21] pantoprazole 40 mg tablet,delayed release 40 mg PO DAILY GERD 06/14/21 [History Last Taken 06/14/22] ipratropium 0.5 mg-albuterol 3 mg (2.5 mg base)/3 mL nebulization soln 3 ml inhalation 4X/DAY PRN sob 11/27/21 [History Last Taken 11/25/21] loratadine 10 mg tablet 10 mg PO DAILY allergies 11/27/21 [History Last Taken 02/21/22] acetaminophen 500 mg tablet 1,000 mg PO Q8H PRN Pain 02/22/22 [History Last Taken 06/14/22] cholecalciferol (vitamin D3) 50 mcg (2,000 unit) capsule 50 mcg PO DAILY #90 caps 08/15/22 [Rx Last Taken Unknown] flash glucose sensor (FreeStyle Sandra 14 Day Sensor kit) #2 ea 08/15/22 [Rx Last Taken Unknown] gabapentin 300 mg capsule 300 mg PO TID 08/15/22 [History Last Taken Unknown] insulin lispro 100 unit/mL subcutaneous pen (Humalog KwikPen (U-100) Insulin) 10 unit subcut TIDWMEAL DM #15 mL 09/03/22 [Rx Last Taken Unknown] pen needle, diabetic 32 gauge x 5/32 (BD Ultra-Fine Sissy Pen Needle) #150 ea 09/03/22 [Rx Last Taken Unknown] hydrocodone-acetaminophen 5-325mg 5mg-325mg 1 tab PO Q6H PRN PRN Pain 3 days #10 TABLETS 09/12/22 [Rx Last Taken Unknown] bupropion HCl 100 mg tablet,12 hr sustained-release (Wellbutrin SR) 100 mg PO DAILY #30 ea 10/10/22 [Rx Last Taken Unknown] lisinopril 40 mg tablet 40 mg PO DAILY 10/10/22 [History Last Taken Unknown] ciprofloxacin HCl 500 mg tablet (Cipro) 500 mg PO BID 7 days #14 tabs 10/13/22 [Rx Last Taken Unknown] hydrocodone-acetaminophen 5-325mg 5mg-325mg 1 tab PO Q6H PRN PRN Pain 2 days #8 TABLETS 10/13/22 [Rx Last Taken Unknown] ondansetron 4 mg disintegrating tablet 4 mg PO Q8H PRN PRN Nausea #10 tabs 10/13/22 [Rx Last Taken Unknown] Allergy/AdvReac Type Severity Reaction Status Date / Time duloxetine [From Cymbalta] Allergy Unknown Verified 10/13/22 17:13 pregabalin [From Lyrica] Allergy Unknown Verified 10/13/22 17:13 Penicillins AdvReac Mild leaves a Verified 10/13/22 17:13 bad taste in her mouth. aspirin AdvReac Upset Verified 10/13/22 17:13 Stomach NSAIDS (Non-Steroidal AdvReac Upset Verified 10/13/22 17:13 Anti-Inflamma Stomach Family History Father Cancer Unclear type. Mother Lung cancer Concurrent tobacco use history. Surgical History History of ankle surgery History of History of carpal tunnel release History of hysterectomy History of open reduction and internal fixation (ORIF) procedure History of partial thyroidectomy Social History household members: none Smoking Status: Current every day smoker tobacco type: cigarettes alcohol intake: never substance use type: does not use ROS <STEPHON Meredith - Last Filed: 10/13/22 19:58> ROS ED ROS Narrative Constitutional: Negative for fever, chills, malaise. CVS: Negative for palpitations, chest pain, syncope. Respiratory: Negative for shortness of breath, cough. GI: Positive for nausea. Negative for abdominal pain, vomiting, diarrhea, constipation : Negative for dysuria, hematuria or frequency. Neuro: Negative for headache. EXAM <STEPHON Meredith - Last Filed: 10/13/22 19:58> Physical Exam Narrative Exam Narrative: CONST: Patient appears uncomfortable lying in bed. EYES: Normal inspection. NECK: Normal inspection. RESP: No respiratory distress, CTAB. CVS: Regular rate and rhythm, no murmur, no gallop. ABD: Soft and nontender, no guarding or rebound, nondistended. Back: Normal inspection, Tenderness just under right CVA area. No midline spinal tenderness or step-offs. Old midline lumbar incision. SKIN: Color normal, no rash, warm, dry, intact. EXTREMITIES: Normal appearance, no pedal edema. 5/5 bilateral hip flexion, knee flexion/extension, and DF/PF. 2+ DP pulses NEURO: Oriented x4. PSYCH: Normal affect. Const Vital Signs: 10/13/22 17:14 10/13/22 17:17 10/13/22 18:13 Temperature 97.8 F Temperature Source Oral Pulse Rate 104 H 78 Respiratory Rate 34 H 16 Respiratory Effort Normal Respiratory Pattern Normal Blood Pressure 235/113 H 179/108 H Blood Pressure Mean 153 131 Pulse Ox 99 97 Oxygen Delivery Method Room Air Room Air 10/13/22 19:00 10/13/22 20:01 Temperature Temperature Source Pulse Rate 79 74 Respiratory Rate 12 16 Respiratory Effort Respiratory Pattern Blood Pressure 187/85 H 156/88 H Blood Pressure Mean 119 110 Pulse Ox 98 Oxygen Delivery Method Room Air <Dr. Soto Buckner MD - Last Filed: 10/13/22 22:12> Physical Exam Const Vital Signs: 10/13/22 17:14 10/13/22 17:17 10/13/22 18:13 Temperature 97.8 F Temperature Source Oral Pulse Rate 104 H 78 Respiratory Rate 34 H 16 Respiratory Effort Normal Respiratory Pattern Normal Blood Pressure 235/113 H 179/108 H Blood Pressure Mean 153 131 Pulse Ox 99 97 Oxygen Delivery Method Room Air Room Air 10/13/22 19:00 10/13/22 20:01 Temperature Temperature Source Pulse Rate 79 74 Respiratory Rate 12 16 Respiratory Effort Respiratory Pattern Blood Pressure 187/85 H 156/88 H Blood Pressure Mean 119 110 Pulse Ox 98 Oxygen Delivery Method Room Air MDM <STEPHON Meredith - Last Filed: 10/13/22 19:58> [facility] MDM Narrative Medical decision making narrative: Patient was evaluated for right flank pain. Initially she denied urinary symptoms but then did report frequency and urgency. She appears uncomfortable but nontoxic. Initial vital signs showed BP 235/113, HR 104. On exam she has tenderness of her right back of in between the flank and lumbar area. There is no midline spinal tenderness or step-offs. This does not seem consistent with her previous low back pain. Abdomen is soft and nontender. Lower extremity MSPs are intact. Differential includes kidney stone versus pyelonephritis versus intra-abdominal process. I do not suspect this is spinal in nature based on her exam. Blood work shows normal white count at 9.9, normal electrolytes, creatinine of 1.[address] shows no acute process ruling out a stone. UA shows changes consistent with UTI so given her symptoms she will be covered for pyelonephritis and urine culture was sent. After IV fluids, morphine patient is feeling better and vital signs have significantly improved. BP is 120s/90s during my reevaluation. I considered admission but with improved vitals, normal white count, and tolerating p.o. intake outpatient therapy is appropriate. She was prescribed Cipro, [place], and Zofran. She was given return precautions and discharged in stable condition. Lab Data Labs: Laboratory Results - last 24 hr 10/13/22 10/13/22 10/13/22 17:20 17:20 17:50 WBC 9.9 RBC 4.35 Hgb 12.6 Hct 39.8 MCV 91.5 MCH 29.0 MCHC 31.7 L RDW Std Deviation 43.7 RDW Coeff of Yudelka 12.9 Plt Count 271 MPV 11.2 Immature Gran % (Auto) 0.300 Neut % (Auto) 57.6 Lymph % (Auto) 30.8 [place] % (Auto) 9.2 Eos % (Auto) 1.8 Baso % (Auto) 0.3 Absolute Neuts (auto) 5.7 Absolute Lymphs (auto) 3.05 Nucleated RBC % 0 Sodium 140 Potassium 3.8 Chloride 105 Carbon Dioxide 28.0 Anion Gap 7 BUN 20 H Creatinine 1.25 H Estim Creat Clear Calc 35.67 Est GFR (MDRD) Af Amer 57 L Est GFR (MDRD) Non-Af 47 L BUN/Creatinine Ratio 16.0 Glucose 108 H Calcium 10.0 Urine Color Yellow Urine Clarity Cloudy Urine pH 8.0 Ur Specific [place] 1.010 Urine Protein 100 H Urine Glucose (UA) Normal Urine Ketones Negative Urine Occult Blood 10 H Urine Nitrite Positive H Urine Bilirubin Negative Urine Urobilinogen Normal Ur Leukocyte Esterase 100 H Urine RBC 0-5 SEEN Urine WBC 10-25 SEEN Ur Squamous Epith Cells 0-5 SEEN Amorphous Sediment 1+ PHOS Urine Bacteria 2+ Urine Mucus 0 SEEN Radiography Diagnostic Testing: Clinical Impression(s) from Imaging Studies Abdomen/Pelvis CT 10/13/22 17:35 IMPRESSION: No acute findings in the abdomen or pelvis. Electronically Signed: Juan Daniel Feliciano MD at 18:37 EST , <Dr. Soto Buckner MD - Last Filed: 10/13/22 22:12> [facility] Lab Data Attestation: I reviewed the patient's lab results. Labs: Laboratory Results - last 24 hr 10/13/22 10/13/22 10/13/22 17:20 17:20 17:50 WBC 9.9 RBC 4.35 Hgb 12.6 Hct 39.8 MCV 91.5 MCH 29.0 MCHC 31.7 L RDW Std Deviation 43.7 RDW Coeff of [place] 12.9 Plt Count 271 MPV 11.2 Immature Gran % (Auto) 0.300 Neut % (Auto) 57.6 Lymph % (Auto) 30.8 [place] % (Auto) 9.2 Eos % (Auto) 1.8 Baso % (Auto) 0.3 Absolute Neuts (auto) 5.7 Absolute Lymphs (auto) 3.05 Nucleated RBC % 0 Sodium 140 Potassium 3.8 Chloride 105 Carbon Dioxide 28.0 Anion Gap 7 BUN 20 H Creatinine 1.25 H Estim Creat Clear Calc 35.67 Est GFR (MDRD) Af Amer 57 L Est GFR (MDRD) Non-Af 47 L BUN/Creatinine Ratio 16.0 Glucose 108 H Calcium 10.0 Urine Color Yellow Urine Clarity Cloudy Urine pH 8.0 Ur Specific [place] 1.010 Urine Protein 100 H Urine Glucose (UA) Normal Urine Ketones Negative Urine Occult Blood 10 H Urine Nitrite Positive H Urine Bilirubin Negative Urine Urobilinogen Normal Ur Leukocyte Esterase 100 H Urine RBC 0-5 SEEN Urine WBC 10-25 SEEN Ur Squamous Epith Cells 0-5 SEEN Amorphous Sediment 1+ PHOS Urine Bacteria 2+ Urine Mucus 0 SEEN Radiography Diagnostic Testing: Clinical Impression(s) from Imaging Studies Abdomen/Pelvis CT 10/13/22 17:35 IMPRESSION: No acute findings in the abdomen or pelvis. Electronically Signed: Juan Daniel Feliciano MD at 18:37 EST , Treatment and Re-Evaluation Narrative: Seen and evaluated independently and in conjunction with physician business support assistant. Agree with notes above unless documented otherwise. Patient with sudden onset with gradual worsening of colicky pain in her right low back no radiation. Abdomen exam benign. Tender in her low back. Anxious and uncomfortable. CT, labs, urinalysis ordered, her blood pressure is very high. We will continue to monitor that with pain control After pain control blood pressure did come down, she is wavering around the 170s currently, she does have a history of high blood pressure as well as kidney injury, we see no significant worsening of her kidney function on lab work and her CT is negative. Her urinalysis shows some signs of infection, we will empirically treat her as possible Rhys as we sent out for a culture but I do not think she needs to be admitted. She is not septic, her pain is better and under control and she is tolerating oral fluids. Discharge Plan Triage Chief Complaint: Flank Pain ED Midlevel Provider: Indy Funez ED Provider: Soto Buckner Dx/Rx/DC Orders Clinical Impression: Acute right flank pain, UTI (urinary tract infection) Instructions: ED Flank Pain, Uncertain Cause, ED Cystitis Female Adult Prescriptions: New ciprofloxacin HCl [Cipro] 500 mg tablet 500 mg PO BID 7 Days Qty: 14 0RF ondansetron 4 mg tablet,disintegrating 4 mg PO Q8H PRN PRN (Reason: Nausea) Qty: 10 0RF hydrocodone-acetaminophen 5-325 mg tablet 1 tab PO Q6H PRN PRN (Reason: Pain) 2 Days Qty: 8 0RF No Action atorvastatin 80 mg tablet 80 mg PO QHS budesonide-formoterol [Symbicort] 160-4.5 mcg/actuation HFA aerosol inhaler 2 puff inhalation BID albuterol sulfate 90 mcg/actuation HFA aerosol inhaler 2 puff inhalation Q6H PRN (Reason: SOB) pantoprazole 40 mg tablet,delayed release (DR/EC) 40 mg PO DAILY gabapentin 300 mg capsule 300 mg PO TID cholecalciferol (vitamin D3) 50 mcg (2,000 unit) capsule 50 mcg PO DAILY Qty: 90 3RF (DME) FreeStyle Sandra 14 Day Sensor Kit See Rx Instructions .Route Qty: 2 5RF Rx Instructions: As directed lisinopril 40 mg tablet 40 mg PO DAILY bupropion HCl [Wellbutrin SR] 100 mg tablet sustained-release 12 hr 100 mg PO DAILY Qty: 30 2RF insulin glargine 100 unit/mL (3 mL) insulin pen 25 unit SC BREAKFAST ipratropium-albuterol 0.5 mg-3 mg(2.5 mg base)/3 mL solution for nebulization 3 ml inhalation 4X/DAY PRN (Reason: sob) loratadine 10 mg tablet 10 mg PO DAILY acetaminophen 500 mg tablet 1,000 mg PO Q8H PRN (Reason: Pain) hydrocodone-acetaminophen [hydrocodone-acetaminophen] 5-325 mg tablet 1 tab PO Q6H PRN PRN (Reason: Pain) 3 Days Qty: 10 0RF insulin lispro [Humalog KwikPen Insulin] 100 unit/mL insulin pen 10 unit subcut TIDWMEAL Qty: 15 3RF Protocol: 4. Sliding Scale Insulin High-Med Dosing Condition: 150-199 mg/dl = 2 units Condition: 200-259 mg/dl = 4 units Condition: 260-324 mg/dl = 6 units Condition: 325-374 mg/dl = 8 units Condition: 375-409 mg/dl = 10 units Condition: 410-449 mg/dl = 11 units Condition: Greater than 449 call physician Protocol Text: - Use for Total Daily Dose of Insulin 56-80 units - Patient who are insulin resistant or septic HIGH MEDIUM DOSING ALGORITHM (DME) pen needle, diabetic [BD Ultra-Fine Sissy Pen Needle] 32 gauge x 5/32 needle See Rx Instructions .ROUTE .MEDSUPPLY Qty: 150 3RF Rx Instructions: 5 times daily Primary Care Provider: Sylvie Alcala Referrals: Sylvie Alcala DO [Primary Care Provider] - Activity Restrictions/Additional Instructions: I prescribed Cipro which is an antibiotic to take twice a day for 1 week. I prescribed [place] for pain and Zofran for nausea and vomiting control. Return to the ER symptoms worsen. Disposition Disposition: Home, Self Care Discharge Date/Time: 10/13/22 20:07
[2022-10-13 18:13] VITALS: BP 179/108; PULSE 78; RESP 16; O2SAT 97
[2022-10-13 18:17] LABS: Color, Urine Yellow (Yellow); Glucose, Dipstick Normal (Normal); Ketone-Dipstick Negative (Negative); Leukocyte Esterase-Dipstick 100 /ul (Negative); Nitrite-Dipstick Positive (Negative); Occult Blood-Urine 10 /ul (Negative); Protein-Dipstick 100 mg/dl (Negative); Urine Bilirubin Dipstick Negative (Negative); Urine Clarity Cloudy (Clear); Urine Urobilinogen Normal (Normal)
[2022-10-13 18:27] LABS: Amorphous Sediment 1+ PHOS; Bacteria 2+ /hpf (None Seen); Red Blood Cells-Urine 0-5 SEEN /hpf (0-5); Squamous Epithelial Cells - UA 0-5 SEEN /hpf (5-10); White Blood Cells 10-25 SEEN /hpf (0-5)
[2022-10-13 19:00] VITALS: BP 187/85; PULSE 79; RESP 12
[2022-10-13] MEDS: Ceftriaxone 1 GM/50 ML BAG IV (19:45)
[2022-10-13 20:01] VITALS: BP 156/88; PULSE 74; RESP 16; O2SAT 98
[2022-10-13] MEDS: oxyCODONE 5 MG Tablet PO (20:07)
== END 2022-10-13 20:07 | disposition home or self-care (01) ==
PROVIDERS: Physician Assistant; Emergency Provider Emergency Medicine; PCP Family Medicine; Visit Provider Emergency Medicine
DX: N39.0 Urinary tract infection, site not specified (principal); J44.9 Chronic obstructive pulmonary disease, unspecified; E11.22 Type 2 diabetes mellitus with diabetic chronic kidney disease; Z79.4 Long term (current) use of insulin; I25.10 Atherosclerotic heart disease of native coronary artery without angina pectoris; I12.9 Hypertensive chronic kidney disease with stage 1 through stage 4 chronic kidney disease, or unspecified chronic kidney disease; E78.00 Pure hypercholesterolemia, unspecified; N18.9 Chronic kidney disease, unspecified; R10.9 Unspecified abdominal pain
CPT/HCPCS: 74176; 80048; 81001; 85025; 87077; 87086; 87088; 87186; 99284; J7030; J2405

== ENCOUNTER 2022-10-17 04:41 | Emergency (ER) | payer MEDICAID, SELFPAY ==
[2022-10-17 04:41] VITALS: BP 209/119; PULSE 85; RESP 20; TEMP 36.4; O2SAT 100; BMI 32.4
--- NOTE | 2022-10-17 04:49 | CT_ITS ---
EXAM: CT ABDOMEN AND PELVIS WITH INTRAVENOUS CONTRAST CLINICAL INDICATION: abd pain, pyelonephritis TECHNIQUE: Helically acquired images were obtained of the abdomen and pelvis with intravenous contrast. This CT exam was performed using one or more of the following dose reduction techniques: automated exposure control, adjustment of the mA and/or kV according to patient size, and/or use of iterative reconstruction technique. This report was created using [employer] report generation technology. CONTRAST: IV 100mL Isovue-370 RADIATION DOSE: Total DLP: 826.82 mGy-cm. COMPARISON: CT abdomen and pelvis of 10/13/2022. CTA chest of 06/15/2022 FINDINGS: LOWER THORAX: Unremarkable. No acute basilar pulmonary infiltrates or pleural effusions. No coronary artery calcification is visualized. No significant pericardial effusion is seen. ABDOMEN: LIVER: Liver demonstrates minimal fatty infiltration. 1.8 cm circumscribed lobulated hypodense focus is seen within the left hepatic lobe just superior to the gallbladder, unchanged as compared with prior CTA, and probably due to partial volume averaging through a small cyst or hemangioma. GALLBLADDER AND BILE DUCTS: Unremarkable. No calcified gallstones. No gallbladder distention or wall edema. No intra- or extrahepatic biliary ductal dilation. PANCREAS: Atrophic pancreas. No findings of acute pancreatitis. No focal cystic or solid mass. SPLEEN: Unremarkable. Normal size without focal cystic or solid mass. ADRENALS: Stable tiny adrenal nodules, probably adenomas. KIDNEYS AND URETERS: Normal size kidneys. Mild left renal cortical thinning laterally. Symmetric nephrograms. No perfusion defects are seen to indicate acute pyelonephritis. No hydronephrosis or obstructing ureteral stone. STOMACH AND BOWEL: Moderate to large amount of formed stool fills the cecum through the proximal sigmoid colon. The distal sigmoid colon is decompressed. No findings of diverticulitis, colitis or small bowel obstruction. Stomach is decompressed. Wall of the gastric fundus and body is thickened, measuring up to 23 mm in thickness, with abrupt transition between thick-walled proximal stomach and normal thickness gastric antral wall. A portion of the gastric mural thickening is due to lack of distention but an infiltrating process is also a consideration. No periduodenal inflammatory changes or distended small bowel loops. PELVIS: APPENDIX: No evidence of acute appendicitis. BLADDER: Unremarkable. REPRODUCTIVE: Small uterus. No adnexal mass. ABDOMEN and PELVIS: INTRAPERITONEAL SPACE: Unremarkable. No ascites or other fluid collection. No free air. BONES/JOINTS: Previous midline laminectomy again noted at the L4/5 level. Intradisc spacer remains in place within the narrowed L4/5 disc space, with extensive surrounding sclerosis. Left pedicle screw at L4 again protrudes through the superior endplate into the disc space at L3/4. There is a stable subacute compression fracture involving the T12 superior endplate, with adjacent subchondral sclerosis. Large osteophytes again noted about the lower thoracic disc spaces. Extensive lumbar facet arthritis is present. SOFT TISSUES: Unremarkable. No discrete abdominal or pelvic wall hernia. VASCULATURE: Calcific abdominal aorta and its branches. No AAA. Greater than 50% stenosis at the origin of the right common iliac artery. LYMPH NODES: Normal sized para-aortic and aortocaval lymph nodes. No enlarged lymph nodes. CT/Abdomen/Pelvis W IV Cont ONLY IMPRESSION: No findings of pyelonephritis or obstructive uropathy. Findings suggestive of constipation. No evidence for small bowel obstruction, colitis or diverticulitis. Thickening of the wall of the gastric fundus and body, primarily due to lack of distention but an infiltrating process is also a consideration. Correlation with endoscopy or upper GI series may be of benefit, as clinically indicated. Electronically Signed: Perry Freeman MD at 6:17 EST ,
[2022-10-17] MEDS: Morphine 4 MG/ML Syringe IV (05:02)
[2022-10-17] MEDS: 0.9% Normal Saline 1,000 ML 150 ML IV (05:06)
--- NOTE | 2022-10-17 05:06 | EDS_ITS ---
HPI History of Present Illness Chief Complaint: Abd Pain Informant: patient Onset/Context/Timing Onset: Weeks (1 week) Context: Gradual Onset Timing: Waxes and wanes Current Severity: Severe Maximum Severity: Severe Narrative Narrative: Patient presents with 1 week history of right-sided abdominal pain. She denies fever. Patient was seen in the emergency room 3 days ago and diagnosed with pyelonephritis. She was given prescriptions for Cipro, [place], and Zofran. She states she is been taking the medications as prescribed. She continues to complain of nausea. [facility] Medical History (Updated 10/17/22 @ 06:[address] Marcy Kidd MD) Anxiety Arthritis Asthma Back pain Back pain Cardiology follow-up encounter Chronic neck and back pain COPD (chronic obstructive pulmonary disease) Coronary artery calcification seen on CAT scan CPAP (continuous positive airway pressure) dependence Depression Dietary restriction Difficulty balancing Gastric reflux High cholesterol History of arthritis History of echocardiogram History of edema History of pain when walking History of renal disease History of stomach ulcers History of stress test Hypertension Injury of head and neck Insulin dependent diabetes mellitus Knee pain Lumbar stenosis Obesity Osteomyelitis Shortness of breath on exertion Shoulder pain Sleep apnea Smoker Spinal fusion failure Strain of muscle, fascia and tendon of pelvis, initial encounter Strain of right hip and thigh Strain of right inguinal region Strain of unspecified muscles, fascia and tendons at thigh level, right thigh, initial encounter Syncope Thyroid disease Type 2 diabetes mellitus Walker as ambulation aid Wears glasses Home Medications insulin glargine 100 unit/mL (3 mL) subcutaneous pen 25 unit subcut BREAKFAST DIABETES 11/03/20 [History Last Taken 06/14/22] albuterol sulfate 90 mcg/actuation aerosol inhaler 2 puff inhalation Q6H PRN SOB 06/14/21 [History Last Taken 06/14/22] atorvastatin 80 mg tablet 80 mg PO QHS CHOLESTEROL 06/14/21 [History Last Taken 06/13/22] budesonide-formoterol HFA 160 mcg-4.5 mcg/actuation aerosol inhaler (Symbicort) 2 puff inhalation BID ASTHMA 06/14/21 [History Last Taken 12/25/21] pantoprazole 40 mg tablet,delayed release 40 mg PO DAILY GERD 06/14/21 [History Last Taken 06/14/22] ipratropium 0.5 mg-albuterol 3 mg (2.5 mg base)/3 mL nebulization soln 3 ml inhalation 4X/DAY PRN sob 11/27/21 [History Last Taken 11/25/21] loratadine 10 mg tablet 10 mg PO DAILY allergies 11/27/21 [History Last Taken 02/21/22] acetaminophen 500 mg tablet 1,000 mg PO Q8H PRN Pain 02/22/22 [History Last Taken 06/14/22] cholecalciferol (vitamin D3) 50 mcg (2,000 unit) capsule 50 mcg PO DAILY #90 caps 08/15/22 [Rx Last Taken Unknown] flash glucose sensor (FreeStyle Sandra 14 Day Sensor kit) #2 ea 08/15/22 [Rx Last Taken Unknown] gabapentin 300 mg capsule 300 mg PO TID 08/15/22 [History Last Taken Unknown] insulin lispro 100 unit/mL subcutaneous pen (Humalog KwikPen (U-100) Insulin) 10 unit subcut TIDWMEAL DM #15 mL 09/03/22 [Rx Last Taken Unknown] pen needle, diabetic 32 gauge x 5/32 (BD Ultra-Fine Sissy Pen Needle) #150 ea 09/03/22 [Rx Last Taken Unknown] hydrocodone-acetaminophen 5-325mg 5mg-325mg 1 tab PO Q6H PRN PRN Pain 3 days #10 TABLETS 09/12/22 [Rx Last Taken Unknown] bupropion HCl 100 mg tablet,12 hr sustained-release (Wellbutrin SR) 100 mg PO DAILY #30 ea 10/10/22 [Rx Last Taken Unknown] lisinopril 40 mg tablet 40 mg PO DAILY 10/10/22 [History Last Taken Unknown] ciprofloxacin HCl 500 mg tablet (Cipro) 500 mg PO BID 7 days #14 tabs 10/13/22 [Rx Last Taken Unknown] hydrocodone-acetaminophen 5-325mg 5mg-325mg 1 tab PO Q6H PRN PRN Pain 2 days #8 TABLETS 10/13/22 [Rx Last Taken Unknown] ondansetron 4 mg disintegrating tablet 4 mg PO Q8H PRN PRN Nausea #10 tabs 10/13/22 [Rx Last Taken Unknown] dicyclomine 20 mg tablet 20 mg PO TID abd cramping #20 tabs 10/17/22 [Rx Last Taken Unknown] promethazine 25 mg tablet 25 mg PO TID PRN nausea and vomiting #14 tabs 10/17/22 [Rx Last Taken Unknown] tramadol 50 mg tablet 50 mg PO Q4H PRN PRN Pain #20 tabs 10/17/22 [Rx Last Taken Unknown] Allergy/AdvReac Type Severity Reaction Status Date / Time duloxetine [From Cymbalta] Allergy Unknown Verified 10/17/22 04:45 pregabalin [From Lyrica] Allergy Unknown Verified 10/17/22 04:45 Penicillins AdvReac Mild leaves a Verified 10/17/22 04:45 bad taste in her mouth. aspirin AdvReac Upset Verified 10/17/22 04:45 Stomach NSAIDS (Non-Steroidal AdvReac Upset Verified 10/17/22 04:45 Anti-Inflamma Stomach Family History Father Cancer Unclear type. Mother Lung cancer Concurrent tobacco use history. Surgical History History of ankle surgery History of History of carpal tunnel release History of hysterectomy History of open reduction and internal fixation (ORIF) procedure History of partial thyroidectomy Social History household members: none Smoking Status: Current every day smoker tobacco type: cigarettes alcohol intake: never substance use type: does not use ROS ROS ED Constitutional Constitutional ED: Denies chills or fever(s) Eyes Eyes: Denies change in vision or discharge from eye(s) ENT ENT ED: Denies discharge from eye(s), rhinorrhea or sore throat Cardiovascular Cardiovascular: Denies chest pain or palpitations Respiratory/Chest Respiratory/Chest: Denies cough or dyspnea Gastrointestinal Gastrointestinal: Reports abdominal pain and nausea; Denies diarrhea or vomiting Genitourinary Genitourinary ED: Reports urinary frequency; Denies dysuria Musculoskeletal Musculoskeletal: Reports back pain; Denies extremity pain Integumentary Denies Abrasions or rash Neurologic Neurologic: Denies headache(s) or weakness Psychiatric Psychiatric: Denies anxiety or depression Allergic/Immunologic Allergic/Immunologic ED: Denies lip swelling or urticaria EXAM Physical Exam Const Vital Signs: 10/17/22 04:41 Temperature 97.5 F L Temperature Source Temporal Pulse Rate 85 Respiratory Rate 20 H Blood Pressure 209/119 H Blood Pressure Mean 149 Pulse Ox 100 Oxygen Delivery Method Room Air Positive well nourished and well developed General Appearance ED: well developed HEENT Reports moist mucous membranes Eyes PERRL and EOMs intact bilaterally Neck no lymphadenopathy Chest Wall inspection of chest normal and palpation of chest normal Resp normal respiratory effort and clear to auscultation bilaterally Cardio regular rate and regular rhythm GI GI Narrative: Abdomen soft with right upper quadrant tenderness to palpation. No guarding or rebound. Hypoactive bowel sounds. Back/Spine General Back: CVA tenderness right Extremity normal to inspection Neuro oriented x3 and no sensory deficits noted Motor Exam: strength 5/5 throughout Psych Mood & Affect: anxious Skin Skin Narrative: Petechiae noted to the left forearm from EMS blood pressure cuff MDM MDM MDM Narrative Medical decision making narrative: Patient's most recent visit was reviewed. CBC, chemistry studies, LFTs, lipase obtained to evaluate for leukocytosis, anemia, electrolyte derangement. Urinalysis was obtained given her recent evidence of infection with concern for pyelonephritis. CT scan of the abdomen and pelvis with IV contrast obtained given her degree of pain noted on exam and recent diagnosis of pyelonephritis. She was given morphine and Phenergan for pain and nausea. Lab Data Attestation: I reviewed the patient's lab results. Labs: Laboratory Results - last 24 hr 10/17/22 10/17/22 10/17/22 05:07 05:07 05:52 WBC 10.2 RBC 4.26 Hgb 12.5 Hct 39.5 MCV 92.7 MCH 29.3 MCHC 31.6 L RDW Std Deviation 43.8 RDW Coeff of [place]ud[place] 13.1 Plt Count 250 MPV 11.8 Immature Gran % (Auto) 0.400 Neut % (Auto) 70.4 H Lymph % (Auto) 19.4 [place] % (Auto) 7.9 Eos % (Auto) 1.6 Baso % (Auto) 0.3 Absolute Neuts (auto) 7.2 Absolute Lymphs (auto) 1.97 Nucleated RBC % 0 Sodium 137 Potassium 4.7 Chloride 105 Carbon Dioxide 29.0 Anion Gap 3 L BUN 21 H Creatinine 0.97 Estim Creat Clear Calc 45.96 Est GFR (MDRD) Af Amer 76 Est GFR (MDRD) Non-Af 63 BUN/Creatinine Ratio 21.6 H Glucose 194 H Calcium 9.5 Total Bilirubin 0.40 Direct Bilirubin 0.11 AST 28 ALT 28 Alkaline Phosphatase 98 Total Protein 7.2 Albumin 3.4 Globulin 3.8 Lipase 88 Urine Color Yellow Urine Clarity Clear Urine pH 8.0 Ur Specific [place] 1.010 Urine Protein 100 H Urine Glucose (UA) Normal Urine Ketones Negative Urine Occult Blood Negative Urine Nitrite Negative Urine Bilirubin Negative Urine Urobilinogen Normal Ur Leukocyte Esterase 25 H Urine RBC 0 SEEN Urine WBC 0-5 SEEN Ur Squamous Epith Cells 0-5 SEEN Ur Transition Epith Cell 0-5 SEEN Urine Bacteria 0 SEEN Urine Mucus 0 SEEN Radiography Diagnostic Testing: Clinical Impression(s) from Imaging Studies Abdomen/Pelvis CT 10/17/22 04:49 IMPRESSION: No findings of pyelonephritis or obstructive uropathy. Findings suggestive of constipation. No evidence for small bowel obstruction, colitis or diverticulitis. Thickening of the wall of the gastric fundus and body, primarily due to lack of distention but an infiltrating process is also a consideration. Correlation with endoscopy or upper GI series may be of benefit, as clinically indicated. Electronically Signed: Perry Freeman MD at 6:17 EST , Treatment and Re-Evaluation Narrative: CBC was normal white count and normal differential. Hemoglobin is stable at 12.5. Chemistry studies unremarkable. LFTs and lipase are normal. Urinalysis reveals no current infection with 0 bacteria, 0-5 white cells, negative nitrites. CT scan abdomen pelvis reveals no evidence of pyelonephritis. She does have evidence of constipation. There is no bowel obstruction. There is also thickening of the gastric fundus and body of the stomach noted which may be due to lack of distention, however follow-up endoscopy recommended for further evaluation. Test results are all discussed with the patient. She states that she does believe that she is constipated. I explained to her that she has had 3 prescriptions for narcotics since the first of the year and this creates a cycle of constipation which causes increased abdominal pain. She then gets more narcotics which caused increased constipation. Patient will be given Bentyl at this time for pain and Phenergan to help with nausea. I will write her for GoLytely to help clean her out. She states that she is scheduled to see Dr. Jabour soon for a colonoscopy. She will also be sure to discuss an upper endoscopy with him given the findings noted on the CT scan. Patient also has focal tenderness in the right upper quadrant states when she stands she gets a bulge to that area. I am concerned that she has developed a hernia. At this time while lying supine the area is soft but remains tender. She will be referred to surgery for evaluation as needed. Discharge Plan Triage Chief Complaint: Abd Pain ED Provider: Marcy Kidd Dx/Rx/DC Orders Clinical Impression: Abdominal pain, Constipation, Hernia Instructions: ED Constipation (Adult), ED Hernia (Adult) Prescriptions: New dicyclomine 20 mg tablet 20 mg PO TID Qty: 20 0RF promethazine 25 mg tablet 25 mg PO TID PRN (Reason: nausea and vomiting) Qty: 14 0RF tramadol 50 mg tablet 50 mg PO Q4H PRN PRN (Reason: Pain) Qty: 20 0RF No Action atorvastatin 80 mg tablet 80 mg PO QHS budesonide-formoterol [Symbicort] 160-4.5 mcg/actuation HFA aerosol inhaler 2 puff inhalation BID albuterol sulfate 90 mcg/actuation HFA aerosol inhaler 2 puff inhalation Q6H PRN (Reason: SOB) pantoprazole 40 mg tablet,delayed release (DR/EC) 40 mg PO DAILY gabapentin 300 mg capsule 300 mg PO TID cholecalciferol (vitamin D3) 50 mcg (2,000 unit) capsule 50 mcg PO DAILY Qty: 90 3RF (DME) FreeStyle Sandra 14 Day Sensor Kit See Rx Instructions .Route Qty: 2 5RF Rx Instructions: As directed lisinopril 40 mg tablet 40 mg PO DAILY bupropion HCl [Wellbutrin SR] 100 mg tablet sustained-release 12 hr 100 mg PO DAILY Qty: 30 2RF insulin glargine 100 unit/mL (3 mL) insulin pen 25 unit SC BREAKFAST ipratropium-albuterol 0.5 mg-3 mg(2.5 mg base)/3 mL solution for nebulization 3 ml inhalation 4X/DAY PRN (Reason: sob) loratadine 10 mg tablet 10 mg PO DAILY acetaminophen 500 mg tablet 1,000 mg PO Q8H PRN (Reason: Pain) hydrocodone-acetaminophen [hydrocodone-acetaminophen] 5-325 mg tablet 1 tab PO Q6H PRN PRN (Reason: Pain) 3 Days Qty: 10 0RF ciprofloxacin HCl [Cipro] 500 mg tablet 500 mg PO BID 7 Days Qty: 14 0RF ondansetron 4 mg tablet,disintegrating 4 mg PO Q8H PRN PRN (Reason: Nausea) Qty: 10 0RF hydrocodone-acetaminophen 5-325 mg tablet 1 tab PO Q6H PRN PRN (Reason: Pain) 2 Days Qty: 8 0RF insulin lispro [Humalog KwikPen Insulin] 100 unit/mL insulin pen 10 unit subcut TIDWMEAL Qty: 15 3RF Protocol: 4. Sliding Scale Insulin High-Med Dosing Condition: 150-199 mg/dl = 2 units Condition: 200-259 mg/dl = 4 units Condition: 260-324 mg/dl = 6 units Condition: 325-374 mg/dl = 8 units Condition: 375-409 mg/dl = 10 units Condition: 410-449 mg/dl = 11 units Condition: Greater than 449 call physician Protocol Text: - Use for Total Daily Dose of Insulin 56-80 units - Patient who are insulin resistant or septic HIGH MEDIUM DOSING ALGORITHM (DME) pen needle, diabetic [BD Ultra-Fine Sissy Pen Needle] 32 gauge x 5/32 needle See Rx Instructions .ROUTE .MEDSUPPLY Qty: 150 3RF Rx Instructions: 5 times daily Primary Care Provider: Sylvie Alcala Referrals: Sylvie Alcala DO [Primary Care Provider] - Marcus Chambers MD [Med Staff - Active Staff] - As Needed Davian Bermeo MD [Non-Staff] - Keep Wilmer appointment Disposition Disposition: Home, Self Care
[2022-10-17 05:13] LABS: Absolute Lymphocyte Count 1.97 X10^3/uL (0.83-4.51); Absolute Neutrophil Count 7.2 X10^3/uL (2.0-7.7); Basophil# 0.03 X10^3/uL; Basophil% 0.3 % (0-1); Eosinophil# 0.16 X10^3/uL; Eosinophils% 1.6 % (0-5); Hematocrit 39.5 % (37-47); Hemoglobin 12.5 g/dL (12.0-15.0); Lymphocyte # 1.97 X10^3/ul (0.83-4.51); Lymphocyte % 19.4 % (19-41); Mean Corp Hgb Conc 31.6 g/dL (32-36); Mean Corpuscular Hgb 29.3 pg (27.0-32.0); Mean Corpuscular Volume 92.7 fL (81-99); Mean Platelet Vol. 11.8 fl (6.2-12.0); Monocyte% 7.9 % (0-10); NRBC Flagged by Analyzer 0 % (0-5); Neutrophil # 7.15 X10^3/uL (2.7-7.7); Neutrophil % 70.4 % (47-70); Platelet Count 250 K/mm3 (150-450); RBC Distribution Width CV 13.1 % (11.6-14.6); RBC Distribution Width SD 43.8 fl (35.1-43.9); Red Blood Count 4.26 M/mm3 (4.2-5.4); White Blood Count 10.2 K/mm3 (4.4-11.0)
[2022-10-17] MEDS: proMETHazine 25 MG Tablet PO (05:15)
[2022-10-17 05:30] LABS: AST(SGOT) 28 U/L (15-37); Alanine Aminotransfer ALT/SGPT 28 U/L (13-56); Albumin, Serum 3.4 g/dL (3.2-5.0); Alkaline Phosphatase 98 U/L (45-117); Anion Gap 3 (5-15); BUN 21 mg/dL (7-18); BUN/Creat Ratio 21.6 RATIO (10-20); Bilirubin, Direct 0.11 mg/dL (0.00-0.30); Calcium,Total 9.5 mg/dL (8.5-10.1); Chloride 105 mmol/L (98-107); Creatinine, Serum 0.97 mg/dL (0.55-1.02); EST Glomerular Filtration Rate 63 mL/min (>60); Est Glom Filt Rate - Afr Amer 76 mL/min (>60); Estimated Creatinine Clearance 45.96 ml/min; Globulin 3.8 g/dL (2.2-4.2); Glucose 194 mg/dL (74-106); Lipase 88 U/L (73-393); Potassium 4.7 mmol/L (3.5-5.1); Protein, Total 7.2 g/dL (6.4-8.2); Sodium Level 137 mmol/L (136-145)
[2022-10-17 06:00] LABS: Bacteria 0 SEEN /hpf (None Seen); Mucous, Urine 0 SEEN /hpf (<or=2+); Red Blood Cells-Urine 0 SEEN /hpf (0-5)
[2022-10-17 06:01] LABS: Color, Urine Yellow (Yellow); Glucose, Dipstick Normal (Normal); Ketone-Dipstick Negative (Negative); Leukocyte Esterase-Dipstick 25 /ul (Negative); Nitrite-Dipstick Negative (Negative); Occult Blood-Urine Negative /ul (Negative); Protein-Dipstick 100 mg/dl (Negative); Urine Bilirubin Dipstick Negative (Negative); Urine Clarity Clear (Clear); Urine Urobilinogen Normal (Normal)
[2022-10-17 06:13] LABS: Squamous Epithelial Cells - UA 0-5 SEEN /hpf (5-10); Transitional Epithelial - Ur 0-5 SEEN /hpf (0-5); White Blood Cells 0-5 SEEN /hpf (0-5)
[2022-10-17 06:41] VITALS: BP 205/112; PULSE 73; RESP 18; O2SAT 98
[2022-10-17] MEDS: fentaNYL 100 MCG/2 ML Ampul 25 MCG IV (06:51)
[2022-10-17] MEDS: Dicyclomine 10 MG Capsule 20 MG PO (06:52)
[2022-10-17] MEDS: Lisinopril 40 MG Tablet PO (06:55)
[2022-10-17 06:57] VITALS: BP 198/102; PULSE 78; RESP 21; O2SAT 100
[2022-10-17] MEDS: Electrolyte Solution/Peg's 4000 ML PO (07:03)
== END 2022-10-17 07:10 | disposition home or self-care (01) ==
PROVIDERS: Emergency Provider Emergency Medicine; PCP Family Medicine; Visit Provider Emergency Medicine
DX: K59.00 Constipation, unspecified (principal); J44.9 Chronic obstructive pulmonary disease, unspecified; E11.9 Type 2 diabetes mellitus without complications; Z79.4 Long term (current) use of insulin; I25.10 Atherosclerotic heart disease of native coronary artery without angina pectoris; R11.0 Nausea; E78.00 Pure hypercholesterolemia, unspecified; I10 Essential (primary) hypertension; R10.9 Unspecified abdominal pain
CPT/HCPCS: 74177; 76705; 80048; 80076; 81001; 83690; 85025; 96361; 96372; 96374; 96375; 99285; J7030; A4216; J2405

== ENCOUNTER 2022-10-17 18:54 | Emergency (ER) | payer MEDICAID, SELFPAY ==
[2022-10-17 18:56] VITALS: TEMP 36.9; BMI 31.2
[2022-10-17 18:59] VITALS: BP 151/129; PULSE 95; RESP 24; O2SAT 96
--- NOTE | 2022-10-17 20:02 | ED.VIS.GI ---
HPI HPI - GI History of Present Illness Chief Complaint: Abd Pain Informant: patient Narrative Narrative: Patient has been having right flank pain for about a week or so. She was seen here couple days ago for it, by myself and physician data analysis assistant and she had a negative CT along with urinalysis that showed urine infection suspicious for possible pyelonephritis clinically, so we put her on antibiotics. She has no more urinary symptoms, but the pain in her right upper quadrant has been getting worse, she was seen here again this morning and had another CT that was negative for any acute except for a lot of retained colonic stool, no signs of colitis or diverticulitis or any other acute abnormality, she had normal labs which I reviewed including liver enzymes, and she was prescribed PEG in order to try to clean her out. She states she has drank about three quarters of that so far, as this was just 8 or 10 hours ago, and she has had a lot of bowel movement, but the pain is persistently worsened. She has no new symptoms. She states the pain is in the same place as it was before, she describes it as pain in the right upper abdomen, and worsening of my chronic low back pain right low back. She has some nausea she has not vomited, bowel movement did not seem to help any of the pain in her right upper quadrant. [facility] Medical History Anxiety Arthritis Asthma Back pain Back pain Cardiology follow-up encounter Chronic neck and back pain COPD (chronic obstructive pulmonary disease) Coronary artery calcification seen on CAT scan CPAP (continuous positive airway pressure) dependence Depression Dietary restriction Difficulty balancing Gastric reflux High cholesterol History of arthritis History of echocardiogram History of edema History of pain when walking History of renal disease History of stomach ulcers History of stress test Hypertension Injury of head and neck Insulin dependent diabetes mellitus Knee pain Lumbar stenosis Obesity Osteomyelitis Shortness of breath on exertion Shoulder pain Sleep apnea Smoker Spinal fusion failure Strain of muscle, fascia and tendon of pelvis, initial encounter Strain of right hip and thigh Strain of right inguinal region Strain of unspecified muscles, fascia and tendons at thigh level, right thigh, initial encounter Syncope Thyroid disease Type 2 diabetes mellitus Walker as ambulation aid Wears glasses Home Medications insulin glargine 100 unit/mL (3 mL) subcutaneous pen 25 unit subcut BREAKFAST DIABETES 11/03/20 [History Last Taken 06/14/22] albuterol sulfate 90 mcg/actuation aerosol inhaler 2 puff inhalation Q6H PRN SOB 06/14/21 [History Last Taken 06/14/22] atorvastatin 80 mg tablet 80 mg PO QHS CHOLESTEROL 06/14/21 [History Last Taken 06/13/22] budesonide-formoterol HFA 160 mcg-4.5 mcg/actuation aerosol inhaler (Symbicort) 2 puff inhalation BID ASTHMA 06/14/21 [History Last Taken 12/25/21] pantoprazole 40 mg tablet,delayed release 40 mg PO DAILY GERD 06/14/21 [History Last Taken 06/14/22] ipratropium 0.5 mg-albuterol 3 mg (2.5 mg base)/3 mL nebulization soln 3 ml inhalation 4X/DAY PRN sob 11/27/21 [History Last Taken 11/25/21] loratadine 10 mg tablet 10 mg PO DAILY allergies 11/27/21 [History Last Taken 02/21/22] acetaminophen 500 mg tablet 1,000 mg PO Q8H PRN Pain 02/22/22 [History Last Taken 06/14/22] cholecalciferol (vitamin D3) 50 mcg (2,000 unit) capsule 50 mcg PO DAILY #90 caps 08/15/22 [Rx Last Taken Unknown] flash glucose sensor (FreeStyle Sandra 14 Day Sensor kit) #2 ea 08/15/22 [Rx Last Taken Unknown] gabapentin 300 mg capsule 300 mg PO TID 08/15/22 [History Last Taken Unknown] insulin lispro 100 unit/mL subcutaneous pen (Humalog KwikPen (U-100) Insulin) 10 unit subcut TIDWMEAL DM #15 mL 09/03/22 [Rx Last Taken Unknown] pen needle, diabetic 32 gauge x 5/32 (BD Ultra-Fine Sissy Pen Needle) #150 ea 09/03/22 [Rx Last Taken Unknown] hydrocodone-acetaminophen 5-325mg 5mg-325mg 1 tab PO Q6H PRN PRN Pain 3 days #10 TABLETS 09/12/22 [Rx Last Taken Unknown] bupropion HCl 100 mg tablet,12 hr sustained-release (Wellbutrin SR) 100 mg PO DAILY #30 ea 10/10/22 [Rx Last Taken Unknown] lisinopril 40 mg tablet 40 mg PO DAILY 10/10/22 [History Last Taken Unknown] ciprofloxacin HCl 500 mg tablet (Cipro) 500 mg PO BID 7 days #14 tabs 10/13/22 [Rx Last Taken Unknown] hydrocodone-acetaminophen 5-325mg 5mg-325mg 1 tab PO Q6H PRN PRN Pain 2 days #8 TABLETS 10/13/22 [Rx Last Taken Unknown] ondansetron 4 mg disintegrating tablet 4 mg PO Q8H PRN PRN Nausea #10 tabs 10/13/22 [Rx Last Taken Unknown] dicyclomine 20 mg tablet 20 mg PO TID abd cramping #20 tabs 10/17/22 [Rx Last Taken Unknown] orphenadrine citrate 100 mg tablet,extended release 100 mg PO Q12H PRN muscle pain #14 tabs 10/17/22 [Rx Last Taken Unknown] promethazine 25 mg tablet 25 mg PO TID PRN nausea and vomiting #14 tabs 10/17/22 [Rx Last Taken Unknown] tramadol 50 mg tablet 50 mg PO Q4H PRN PRN Pain #20 tabs 10/17/22 [Rx Last Taken Unknown] Allergy/AdvReac Type Severity Reaction Status Date / Time duloxetine [From Cymbalta] Allergy Unknown Verified 10/17/22 18:56 pregabalin [From Lyrica] Allergy Unknown Verified 10/17/22 18:56 Penicillins AdvReac Mild leaves a Verified 10/17/22 18:56 bad taste in her mouth. aspirin AdvReac Upset Verified 10/17/22 18:56 Stomach NSAIDS (Non-Steroidal AdvReac Upset Verified 10/17/22 18:56 Anti-Inflamma Stomach Family History Father Cancer Unclear type. Mother Lung cancer Concurrent tobacco use history. Surgical History History of ankle surgery History of History of carpal tunnel release History of hysterectomy History of open reduction and internal fixation (ORIF) procedure History of partial thyroidectomy Social History household members: none Smoking Status: Current every day smoker tobacco type: cigarettes alcohol intake: never substance use type: does not use ROS ROS ED Constitutional Constitutional ED: Denies chills or fever(s) Eyes Eyes: Denies change in vision or diplopia ENT ENT ED: Denies rhinorrhea or sore throat Cardiovascular Cardiovascular: Denies chest pain or palpitations Respiratory/Chest Respiratory/Chest: Denies cough or dyspnea Gastrointestinal Gastrointestinal: Reports abdominal pain and nausea; Denies melena or vomiting Genitourinary Genitourinary ED: Denies dysuria or hematuria Musculoskeletal Musculoskeletal: Reports back pain; Denies neck pain Integumentary Denies abscess or rash Neurologic Neurologic: Denies headache(s), paresthesias or weakness Psychiatric Psychiatric: Denies anxiety or suicidal thoughts EXAM Physical Exam Const Vital Signs: 10/17/22 18:56 10/17/22 18:59 Temperature 98.4 F Temperature Source Oral Pulse Rate 95 Respiratory Rate 24 H Blood Pressure 151/129 H Blood Pressure Mean 136 Pulse Ox 96 Oxygen Delivery Method Room Air Positive well nourished, well developed and obese Constitutional Narrative: In discomfort pacing the room, no distress General Appearance ED: well developed Nutritional Appearance: obese HEENT Reports moist mucous membranes normocephalic and atraumatic Eyes PERRL and EOMs intact bilaterally Neck full ROM and supple Resp normal respiratory effort and clear to auscultation bilaterally Cardio regular rate, regular rhythm and no murmurs GI non-distended GI Narrative: Tender throughout the right side of her abdomen worst in the right upper quadrant and she states it is swollen here which I cannot objectively appreciate. There is no mass or cellulitis/skin abnormality/rash. Auscultation: normoactive bowel sounds Palpation: soft Back/Spine no CVA tenderness Back/Spine Narrative: No CVA tenderness, mildly tender in her right low back paraspinal musculature. General Back: other FROM Extremity normal to inspection General Extremety ED: Negative for edema, pulses abnormal or tenderness General Extremity: Negative for edema or pulses abnormal Neuro oriented x3, CN's II-XII intact bilaterally and no sensory deficits noted Sensorium / Orientation: awake and alert Motor Exam: strength 5/5 throughout Psych Mood & Affect: anxious Skin no rashes or lesions noted and no wounds MDM MDM MDM Narrative Medical decision making narrative: Patient just had a thorough work-up including a CT of the abdomen/pelvis with IV contrast and I do not think there is any reason to repeat that. I do not think her labs need to be repeated either, she has the same pain that she did this morning it is just that cleaning out her colon did not solve the pain. I reviewed the CT imaging/results. It notes that she had some wall thickening in part of the stomach, suggesting maybe she has some gastritis and this could be extending into her duodenum as well clinically so I am treating her with medications to try to control her symptoms, in addition to some IV fluids and Zofran. This medications really helped. She appears much better. Patient states she still has her gallbladder, so I thought it was reasonable to do an ultrasound of that since I could not find one in her past records. That not only shows a normal gallbladder with no cholelithiasis, but the sonographic Cutler's is negative because it is more medial to where the patient is having pain and swelling. My suspicion is that this is musculoskeletal. She is lying comfortably on reevaluation, she wants something more for pain, given her an injection of Norflex, I do not think giving her more narcotics to make her more constipated is the right answer here although we did initially give her a dose of morphine. Radiography Diagnostic Testing: Clinical Impression(s) from Imaging Studies Gallbladder Ultrasound 10/17/22 21:49 IMPRESSION: Fatty infiltration of the liver. No cholelithiasis. No ultrasound evidence of cholecystitis. The sonographic Cutler''s sign is described as negative. Electronically Signed: Samantha Rose MD at 22:43 EST Reading Location ID and State: [address] [place] [address] Tel , Service support , Discharge Plan Triage Chief Complaint: Abd Pain Other Complaint: Constipation ED Provider: Soto Buckner Dx/Rx/DC Orders Clinical Impression: Acute right flank pain, Acute exacerbation of chronic low back pain Prescriptions: New orphenadrine citrate 100 mg tablet extended release 100 mg PO Q12H PRN (Reason: muscle pain) Qty: 14 0RF No Action atorvastatin 80 mg tablet 80 mg PO QHS budesonide-formoterol [Symbicort] 160-4.5 mcg/actuation HFA aerosol inhaler 2 puff inhalation BID albuterol sulfate 90 mcg/actuation HFA aerosol inhaler 2 puff inhalation Q6H PRN (Reason: SOB) pantoprazole 40 mg tablet,delayed release (DR/EC) 40 mg PO DAILY gabapentin 300 mg capsule 300 mg PO TID cholecalciferol (vitamin D3) 50 mcg (2,000 unit) capsule 50 mcg PO DAILY Qty: 90 3RF (DME) FreeStyle Sandra 14 Day Sensor Kit See Rx Instructions .Route Qty: 2 5RF Rx Instructions: As directed lisinopril 40 mg tablet 40 mg PO DAILY bupropion HCl [Wellbutrin SR] 100 mg tablet sustained-release 12 hr 100 mg PO DAILY Qty: 30 2RF insulin glargine 100 unit/mL (3 mL) insulin pen 25 unit SC BREAKFAST ipratropium-albuterol 0.5 mg-3 mg(2.5 mg base)/3 mL solution for nebulization 3 ml inhalation 4X/DAY PRN (Reason: sob) loratadine 10 mg tablet 10 mg PO DAILY acetaminophen 500 mg tablet 1,000 mg PO Q8H PRN (Reason: Pain) hydrocodone-acetaminophen [hydrocodone-acetaminophen] 5-325 mg tablet 1 tab PO Q6H PRN PRN (Reason: Pain) 3 Days Qty: 10 0RF ciprofloxacin HCl [Cipro] 500 mg tablet 500 mg PO BID 7 Days Qty: 14 0RF ondansetron 4 mg tablet,disintegrating 4 mg PO Q8H PRN PRN (Reason: Nausea) Qty: 10 0RF hydrocodone-acetaminophen 5-325 mg tablet 1 tab PO Q6H PRN PRN (Reason: Pain) 2 Days Qty: 8 0RF dicyclomine 20 mg tablet 20 mg PO TID Qty: 20 0RF promethazine 25 mg tablet 25 mg PO TID PRN (Reason: nausea and vomiting) Qty: 14 0RF tramadol 50 mg tablet 50 mg PO Q4H PRN PRN (Reason: Pain) Qty: 20 0RF insulin lispro [Humalog KwikPen Insulin] 100 unit/mL insulin pen 10 unit subcut TIDWMEAL Qty: 15 3RF Protocol: 4. Sliding Scale Insulin High-Med Dosing Condition: 150-199 mg/dl = 2 units Condition: 200-259 mg/dl = 4 units Condition: 260-324 mg/dl = 6 units Condition: 325-374 mg/dl = 8 units Condition: 375-409 mg/dl = 10 units Condition: 410-449 mg/dl = 11 units Condition: Greater than 449 call physician Protocol Text: - Use for Total Daily Dose of Insulin 56-80 units - Patient who are insulin resistant or septic HIGH MEDIUM DOSING ALGORITHM (DME) pen needle, diabetic [BD Ultra-Fine Sissy Pen Needle] 32 gauge x 5/32 needle See Rx Instructions .ROUTE .MEDSUPPLY Qty: 150 3RF Rx Instructions: 5 times daily Primary Care Provider: Sylvie Alcala Referrals: Sylvie Alcala DO [Primary Care Provider] - 3-5 Days if not improving Disposition Disposition: Home, Self Care
[2022-10-17] MEDS: Ondansetron 4 MG/2 ML Vial IV (20:13)
[2022-10-17] MEDS: Morphine 4 MG/ML Syringe IV (20:20)
[2022-10-17] MEDS: Dicyclomine 20 MG/2 ML Vial IM (20:22)
[2022-10-17] MEDS: Mag Hydrox/Al Hydrox/Simeth 30 ML UDC PO (20:24)
--- NOTE | 2022-10-17 21:49 | US_ITS ---
STUDY: ABDOMINAL ULTRASOUND - RIGHT UPPER QUADRANT REASON FOR VISIT: Female, 56 years old pain-rt abd TECHNIQUE: Ultrasound evaluation of the right upper quadrant was performed with real-time and static cardenas-scale imaging. TECHNICAL QUALITY: Adequate. COMPARISON: October 17, 2022 CT scan abdomen and pelvis FINDINGS: Liver: The liver measures 14.7 cm. There is increased echogenicity consistent with fatty infiltration. The bile ducts are within normal limits. There is hepatic color flow. The direction of portal flow is hepatopetal. There is a small focus of low attenuation within the left hepatic lobe seen on the CT scan of the abdomen and pelvis suggesting a small focus of fatty infiltration or small cyst is not as well appreciated on this ultrasound.. Gallbladder: Normal distended gallbladder. The gallbladder wall measures 1.4 mm. There is a negative sonographic Cutler''s sign. There is no pericholecystic fluid. There are no gallstones. Common Bile Duct (C.B.D.): The common bile duct measures 3.3 mm. Pancreas: Normal size of the head, body of the pancreas. There is normal echogenicity of the pancreas. There is no demonstrated pancreatic mass or cyst. The tail of pancreas is not well-visualized. Right Kidney: Normal size of the right kidney. The right kidney measures 10.1 x 4.8 x 4.6 cm. Normal renal cortex. The right cortex measures 1 cm. There is no demonstrated renal mass or cyst. There is no right hydronephrosis. US/Gallbladder IMPRESSION: Fatty infiltration of the liver. No cholelithiasis. No ultrasound evidence of cholecystitis. The sonographic Cutler''s sign is described as negative. Electronically Signed: Samantha Rose MD at 22:43 EST ,
[2022-10-17] MEDS: Orphenadrine 60 MG/2 ML Ampul IV (23:20)
== END 2022-10-17 23:25 | disposition home or self-care (01) ==
PROVIDERS: Emergency Provider Emergency Medicine; PCP Family Medicine; Visit Provider Emergency Medicine
DX: R10.9 Unspecified abdominal pain (principal); J44.9 Chronic obstructive pulmonary disease, unspecified; E11.9 Type 2 diabetes mellitus without complications; Z79.4 Long term (current) use of insulin; I25.10 Atherosclerotic heart disease of native coronary artery without angina pectoris; M54.50 Low back pain, unspecified; E78.00 Pure hypercholesterolemia, unspecified; I10 Essential (primary) hypertension; G89.29 Other chronic pain
CPT/HCPCS: J7030; J2405; 76705; A4216

== ENCOUNTER 2022-10-24 05:34 | Emergency (ER) | payer MEDICAID, SELFPAY ==
[2022-10-24 05:35] VITALS: BP 237/107; PULSE 89; RESP 22; TEMP 36.2; O2SAT 96; BMI 28.2
--- NOTE | 2022-10-24 05:45 | CT_ITS ---
EXAM: CT LUMBAR SPINE WITHOUT INTRAVENOUS CONTRAST CLINICAL INDICATION: back pain back pain TECHNIQUE: Helically acquired images were obtained of the lumbar spine without intravenous contrast. 2D reformats were reviewed. This CT exam was performed using one or more of the following dose reduction techniques: automated exposure control, adjustment of the mA and/or kV according to patient size, and/or use of iterative reconstruction technique. This report was created using [employer] report generation technology. RADIATION DOSE: CTDIvol = 13.51 mGy, DLP = 341.95 mGy-cm COMPARISON: CT scan abdomen and pelvis 07/24/2022 and 04/22/2022. FINDINGS: VERTEBRAE: There is evidence for previous L4 laminotomy. DISCS/SPINAL CANAL/NEURAL FORAMINA: L3-4: There is a small broad posterior disc protrusion as well as thickening of ligamenta flava. There is associated mild bilateral lateral recess stenosis. L4-5: Postoperative changes, as below. No significant stenosis.w VASCULATURE: Visualized abdominal aorta is not dilated. LYMPH NODES: Unremarkable. No retroperitoneal adenopathy. TUBES, LINES AND DEVICES: The patient has undergone previous anterior posterior spinal fusions at the L4-5 level with placement of an intervertebral cage device as well as bilateral posterior fixation rods and pedicle screws. There is resorption of bone around the intervertebral cage device with no demonstrated bone growth across the disc space, consistent with failed fusion. There is bone resorption around the right L5 pedicle screw and the left L4 and L5 pedicle screws, suggesting loosening. The left L4 pedicle screw is angled superiorly and extends into the disc space. These findings were also present on previous studies. On current cross-sectional images, there appear to be areas of discontinuity of the right L4 pedicle screw which are not present on previous exam. w no corresponding defect is identified on billboard installer images and I suspect that this represents an x-ray beam hardening artifact rather than true screw fracture. CT/Spine Lumbar without Contrast IMPRESSION: 1. 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 No demonstrated subluxation. 2. Previous L4 laminotomy. 3. No new abnormalities are demonstrated. 4. Chronic degenerative changes at the L3-4 level, as above. Electronically Signed: Mal Gregory MD at 7:06 EST ,
--- NOTE | 2022-10-24 05:47 | ED.VIS.BACK ---
HPI History of Present Illness Chief Complaint: Back Narrative Narrative: 56-year-old female with history of chronic back pain, has had previous surgery by Dr. Medellin, presents with exacerbation of her chronic back pain. She thinks that it is a little different because it is higher than her incision. She denies any fall or recent injury. No fevers or chills, no loss of bowel or bladder. She states that she has recently entered pain management, but is not on any medication for it. She used to takes oxycodone 10 mg which she would get from her spinal surgeon. She has no saddle anesthesias. This is the same pain that she has had previously in her back. [facility] Medical History Anxiety Arthritis Asthma Back pain Back pain Cardiology follow-up encounter Chronic neck and back pain COPD (chronic obstructive pulmonary disease) Coronary artery calcification seen on CAT scan CPAP (continuous positive airway pressure) dependence Depression Dietary restriction Difficulty balancing Gastric reflux High cholesterol History of arthritis History of echocardiogram History of edema History of pain when walking History of renal disease History of stomach ulcers History of stress test Hypertension Injury of head and neck Insulin dependent diabetes mellitus Knee pain Lumbar stenosis Obesity Osteomyelitis Shortness of breath on exertion Shoulder pain Sleep apnea Smoker Spinal fusion failure Strain of muscle, fascia and tendon of pelvis, initial encounter Strain of right hip and thigh Strain of right inguinal region Strain of unspecified muscles, fascia and tendons at thigh level, right thigh, initial encounter Syncope Thyroid disease Type 2 diabetes mellitus Walker as ambulation aid Wears glasses Home Medications insulin glargine 100 unit/mL (3 mL) subcutaneous pen 25 unit subcut BREAKFAST DIABETES 11/03/20 [History Last Taken 06/14/22] albuterol sulfate 90 mcg/actuation aerosol inhaler 2 puff inhalation Q6H PRN SOB 06/14/21 [History Last Taken 06/14/22] atorvastatin 80 mg tablet 80 mg PO QHS CHOLESTEROL 06/14/21 [History Last Taken 06/13/22] budesonide-formoterol HFA 160 mcg-4.5 mcg/actuation aerosol inhaler (Symbicort) 2 puff inhalation BID ASTHMA 06/14/21 [History Last Taken 12/25/21] pantoprazole 40 mg tablet,delayed release 40 mg PO DAILY GERD 06/14/21 [History Last Taken 06/14/22] ipratropium 0.5 mg-albuterol 3 mg (2.5 mg base)/3 mL nebulization soln 3 ml inhalation 4X/DAY PRN sob 11/27/21 [History Last Taken 11/25/21] loratadine 10 mg tablet 10 mg PO DAILY allergies 11/27/21 [History Last Taken 02/21/22] acetaminophen 500 mg tablet 1,000 mg PO Q8H PRN Pain 02/22/22 [History Last Taken 06/14/22] cholecalciferol (vitamin D3) 50 mcg (2,000 unit) capsule 50 mcg PO DAILY #90 caps 08/15/22 [Rx Last Taken Unknown] flash glucose sensor (FreeStyle Sandra 14 Day Sensor kit) #2 ea 08/15/22 [Rx Last Taken Unknown] gabapentin 300 mg capsule 300 mg PO TID 08/15/22 [History Last Taken Unknown] insulin lispro 100 unit/mL subcutaneous pen (Humalog KwikPen (U-100) Insulin) 10 unit subcut TIDWMEAL DM #15 mL 09/03/22 [Rx Last Taken Unknown] pen needle, diabetic 32 gauge x 5/32 (BD Ultra-Fine Sissy Pen Needle) #150 ea 09/03/22 [Rx Last Taken Unknown] hydrocodone-acetaminophen 5-325mg 5mg-325mg 1 tab PO Q6H PRN PRN Pain 3 days #10 TABLETS 09/12/22 [Rx Last Taken Unknown] bupropion HCl 100 mg tablet,12 hr sustained-release (Wellbutrin SR) 100 mg PO DAILY #30 ea 10/10/22 [Rx Last Taken Unknown] lisinopril 40 mg tablet 40 mg PO DAILY 10/10/22 [History Last Taken Unknown] ciprofloxacin HCl 500 mg tablet (Cipro) 500 mg PO BID 7 days #14 tabs 10/13/22 [Rx Last Taken Unknown] hydrocodone-acetaminophen 5-325mg 5mg-325mg 1 tab PO Q6H PRN PRN Pain 2 days #8 TABLETS 10/13/22 [Rx Last Taken Unknown] ondansetron 4 mg disintegrating tablet 4 mg PO Q8H PRN PRN Nausea #10 tabs 10/13/22 [Rx Last Taken Unknown] dicyclomine 20 mg tablet 20 mg PO TID abd cramping #20 tabs 10/17/22 [Rx Last Taken Unknown] orphenadrine citrate 100 mg tablet,extended release 100 mg PO Q12H PRN muscle pain #14 tabs 10/17/22 [Rx Last Taken Unknown] promethazine 25 mg tablet 25 mg PO TID PRN nausea and vomiting #14 tabs 10/17/22 [Rx Last Taken Unknown] tramadol 50 mg tablet 50 mg PO Q4H PRN PRN Pain #20 tabs 10/17/22 [Rx Last Taken Unknown] Allergy/AdvReac Type Severity Reaction Status Date / Time duloxetine [From Cymbalta] Allergy Unknown Verified 10/24/22 05:38 pregabalin [From Lyrica] Allergy Unknown Verified 10/24/22 05:38 Penicillins AdvReac Mild leaves a Verified 10/24/22 05:38 bad taste in her mouth. aspirin AdvReac Upset Verified 10/24/22 05:38 Stomach NSAIDS (Non-Steroidal AdvReac Upset Verified 10/24/22 05:38 Anti-Inflamma Stomach Family History Father Cancer Unclear type. Mother Lung cancer Concurrent tobacco use history. Surgical History History of ankle surgery History of History of carpal tunnel release History of hysterectomy History of open reduction and internal fixation (ORIF) procedure History of partial thyroidectomy Social History household members: none Smoking Status: Current every day smoker tobacco type: cigarettes alcohol intake: never substance use type: does not use ROS ROS ED ROS Narrative Constitutional: No fever, no chills. HEENT: No sore throat. No neck pain. No loss of vision. No rhinorrhea. Cardiovascular: No chest pain. No palpitations. No pedal edema. Respiratory: No cough, no shortness of breath. Abdominal: No abdominal pain. No nausea. No vomiting. Genitourinary: No dysuria. No hematuria. Musculoskeletal: No myalgias. No arthralgias. Positive low back pain. Neurologic: No headaches. No dizziness. No lightheadedness. Skin: No rash. No change in color. Psychiatric: No depression. Positive anxiety. EXAM Physical Exam Narrative Exam Narrative: Afebrile. Vital signs noted. Elevated blood pressure, but patient is writhing around on the bed. HEENT: Normocephalic. Atraumatic. PERRL, EOMI. Neck soft and supple. No point tenderness or step off. Cardiovascular: Regular rate and rhythm. No murmurs, rubs, or gallops appreciated. Respiratory: No tachypnea. Lungs clear to auscultation bilaterally. Gastrointestinal: Abdomen soft, nontender, with normoactive bowel sounds. No rebound or guarding. Neurological: Awake. Alert. Nonfocal, nonlateralizing. DTRs are equal and symmetric. Straight leg raising is negative bilaterally. Skin: No rash. Normal color. No pallor. Musculoskeletal: No pedal edema. Full range of motion extremities. Well-healed surgical scar in lumbar area without erythema or fluctuance. Const Vital Signs: 10/24/22 05:35 10/24/22 07:04 Temperature 97.1 F L Temperature Source Temporal Pulse Rate 89 80 Respiratory Rate 22 H 15 Blood Pressure 237/107 H 213/107 H Blood Pressure Mean 150 142 Pulse Ox 96 96 Oxygen Delivery Method Room Air Room Air MDM MDM MDM Narrative Medical decision making narrative: I reviewed the patient's prior outpatient records. She has been here multiple times recently, most recently on the , 1 week ago twice in 1 day. She has had multiple CTs of her abdomen for abdominal pain and she had a laboratory work done at that time. This is an exacerbation of her chronic back pain. She had been seen within the last month for that. She had received morphine and Norflex as she has an allergy to NSAIDs. I will give her 1 dose of narcotic pain medication, but in review of her visits for abdominal pain, she had constipation most likely secondary to narcotic use. As she has no red flag signs for cauda equina, I will CT image her back in the lumbar area and she was given intramuscular Norflex and morphine 4 mg. I had a discussion with the patient that she now needs to get her medications from her pain management physician, and she might need to have a care plan set up here in the emergency department because of her high utilization. Of note, patient was seen ambulating to the bathroom without difficulty. Upon return to her room, she would bend over and place her face on the cot, then stand up suddenly. She was told that in the future narcotic pain medications will have to come from her pain management physician, and she states I'm working on it. As I do feel this is more of an exacerbation of her chronic pain, CT will be checked and as long as there is no acute fracture or acute pathology, I feel she can be discharged safely home with follow-up. Return instructions were reviewed. Disposition is pending CT review. I anticipate discharge in stable condition. Discharge Plan Triage Chief Complaint: Back ED Provider: Song Mercedes Dx/Rx/DC Orders Clinical Impression: Acute exacerbation of chronic low back pain, Intractable back pain, Chronic pain Instructions: ED Back Pain (Acute or Chronic), ED Chronic Pain, ED Pain Management: Chronic Prescriptions: No Action atorvastatin 80 mg tablet 80 mg PO QHS budesonide-formoterol [Symbicort] 160-4.5 mcg/actuation HFA aerosol inhaler 2 puff inhalation BID albuterol sulfate 90 mcg/actuation HFA aerosol inhaler 2 puff inhalation Q6H PRN (Reason: SOB) pantoprazole 40 mg tablet,delayed release (DR/EC) 40 mg PO DAILY gabapentin 300 mg capsule 300 mg PO TID cholecalciferol (vitamin D3) 50 mcg (2,000 unit) capsule 50 mcg PO DAILY Qty: 90 3RF (DME) FreeStyle Sandra 14 Day Sensor Kit See Rx Instructions .Route Qty: 2 5RF Rx Instructions: As directed lisinopril 40 mg tablet 40 mg PO DAILY bupropion HCl [Wellbutrin SR] 100 mg tablet sustained-release 12 hr 100 mg PO DAILY Qty: 30 2RF insulin glargine 100 unit/mL (3 mL) insulin pen 25 unit SC BREAKFAST ipratropium-albuterol 0.5 mg-3 mg(2.5 mg base)/3 mL solution for nebulization 3 ml inhalation 4X/DAY PRN (Reason: sob) loratadine 10 mg tablet 10 mg PO DAILY acetaminophen 500 mg tablet 1,000 mg PO Q8H PRN (Reason: Pain) hydrocodone-acetaminophen [hydrocodone-acetaminophen] 5-325 mg tablet 1 tab PO Q6H PRN PRN (Reason: Pain) 3 Days Qty: 10 0RF ciprofloxacin HCl [Cipro] 500 mg tablet 500 mg PO BID 7 Days Qty: 14 0RF ondansetron 4 mg tablet,disintegrating 4 mg PO Q8H PRN PRN (Reason: Nausea) Qty: 10 0RF hydrocodone-acetaminophen 5-325 mg tablet 1 tab PO Q6H PRN PRN (Reason: Pain) 2 Days Qty: 8 0RF dicyclomine 20 mg tablet 20 mg PO TID Qty: 20 0RF promethazine 25 mg tablet 25 mg PO TID PRN (Reason: nausea and vomiting) Qty: 14 0RF tramadol 50 mg tablet 50 mg PO Q4H PRN PRN (Reason: Pain) Qty: 20 0RF orphenadrine citrate 100 mg tablet extended release 100 mg PO Q12H PRN (Reason: muscle pain) Qty: 14 0RF insulin lispro [Humalog KwikPen Insulin] 100 unit/mL insulin pen 10 unit subcut TIDWMEAL Qty: 15 3RF Protocol: 4. Sliding Scale Insulin High-Med Dosing Condition: 150-199 mg/dl = 2 units Condition: 200-259 mg/dl = 4 units Condition: 260-324 mg/dl = 6 units Condition: 325-374 mg/dl = 8 units Condition: 375-409 mg/dl = 10 units Condition: 410-449 mg/dl = 11 units Condition: Greater than 449 call physician Protocol Text: - Use for Total Daily Dose of Insulin 56-80 units - Patient who are insulin resistant or septic HIGH MEDIUM DOSING ALGORITHM (DME) pen needle, diabetic [BD Ultra-Fine Sissy Pen Needle] 32 gauge x 5/32 needle See Rx Instructions .ROUTE .MEDSUPPLY Qty: 150 3RF Rx Instructions: 5 times daily Primary Care Provider: Sylvie Alcala Referrals: Sylvie Alcala, DO [Primary Care Provider] - As soon as possible Activity Restrictions/Additional Instructions: Follow-up with your pain management provider as soon as possible. Disposition Disposition: Home, Self Care
[2022-10-24] MEDS: Morphine 4 MG/ML Syringe IM (05:59)
[2022-10-24] MEDS: Orphenadrine 60 MG/2 ML Ampul IM (06:00)
[2022-10-24 07:04] VITALS: BP 213/107; PULSE 80; RESP 15; O2SAT 96
--- NOTE | 2022-10-24 07:11 | ED.RN ---
provider aware of vitals. no new orders. pt being d/c.
== END 2022-10-24 07:27 | disposition home or self-care (01) ==
PROVIDERS: Emergency Provider Emergency Medicine; PCP Family Medicine; Visit Provider Emergency Medicine
DX: M54.50 Low back pain, unspecified (principal); J44.9 Chronic obstructive pulmonary disease, unspecified; Z79.4 Long term (current) use of insulin; E11.9 Type 2 diabetes mellitus without complications; G89.29 Other chronic pain; I10 Essential (primary) hypertension; I25.10 Atherosclerotic heart disease of native coronary artery without angina pectoris; E78.00 Pure hypercholesterolemia, unspecified; F17.210 Nicotine dependence, cigarettes, uncomplicated
CPT/HCPCS: 72131; 96372; 99284

== ENCOUNTER 2022-10-26 20:23 | Emergency (ER) | payer MEDICAID, SELFPAY ==
[2022-10-26 20:24] VITALS: BP 244/101; PULSE 95; RESP 16; TEMP 36.3; O2SAT 100; BMI 29.9
[2022-10-26 20:51] VITALS: BP 225/98; PULSE 89; RESP 22; O2SAT 98
--- NOTE | 2022-10-26 20:54 | ED.RN ---
PT STATES BACK PAIN IS FROM BACK SURGERY A YEAR AGO THIS MONTH. PT STATES THIS HAS HAPPENED BEFORE. PT STATES SHE HAS AN APPOINTMENT ON FRIDAY WITH THE PAIN CLINIC AT [facility].
--- NOTE | 2022-10-26 21:46 | EDS_ITS ---
HPI History of Present Illness Chief Complaint: Abd Pain Informant: patient Narrative Narrative: Patient is a 56-year-old female with history of chronic back pain and GERD as well as hypertension presenting with worsening of her chronic back pain as well as right upper quadrant pain. Patient states she has been taking Tylenol and that is tearing up her stomach. She is told she is then landing on her stomach. She denies any bowel or bladder incontinence. Patient is trying to walk out of the room when I arrived stating that her ride is here. She does allow me to talk to her and do a brief examination with him states she has to leave and walked out of the ER. [facility] Medical History Anxiety Arthritis Asthma Back pain Back pain Cardiology follow-up encounter Chronic neck and back pain COPD (chronic obstructive pulmonary disease) Coronary artery calcification seen on CAT scan CPAP (continuous positive airway pressure) dependence Depression Dietary restriction Difficulty balancing Gastric reflux High cholesterol History of arthritis History of echocardiogram History of edema History of pain when walking History of renal disease History of stomach ulcers History of stress test Hypertension Injury of head and neck Insulin dependent diabetes mellitus Knee pain Lumbar stenosis Obesity Osteomyelitis Shortness of breath on exertion Shoulder pain Sleep apnea Smoker Spinal fusion failure Strain of muscle, fascia and tendon of pelvis, initial encounter Strain of right hip and thigh Strain of right inguinal region Strain of unspecified muscles, fascia and tendons at thigh level, right thigh, initial encounter Syncope Thyroid disease Type 2 diabetes mellitus Walker as ambulation aid Wears glasses Home Medications insulin glargine 100 unit/mL (3 mL) subcutaneous pen 25 unit subcut BREAKFAST DIABETES 11/03/20 [History Last Taken 06/14/22] albuterol sulfate 90 mcg/actuation aerosol inhaler 2 puff inhalation Q6H PRN SOB 06/14/21 [History Last Taken 06/14/22] atorvastatin 80 mg tablet 80 mg PO QHS CHOLESTEROL 06/14/21 [History Last Taken 06/13/22] budesonide-formoterol HFA 160 mcg-4.5 mcg/actuation aerosol inhaler (Symbicort) 2 puff inhalation BID ASTHMA 06/14/21 [History Last Taken 12/25/21] pantoprazole 40 mg tablet,delayed release 40 mg PO DAILY GERD 06/14/21 [History Last Taken 06/14/22] ipratropium 0.5 mg-albuterol 3 mg (2.5 mg base)/3 mL nebulization soln 3 ml inhalation 4X/DAY PRN sob 11/27/21 [History Last Taken 11/25/21] loratadine 10 mg tablet 10 mg PO DAILY allergies 11/27/21 [History Last Taken 02/21/22] acetaminophen 500 mg tablet 1,000 mg PO Q8H PRN Pain 02/22/22 [History Last Taken 06/14/22] cholecalciferol (vitamin D3) 50 mcg (2,000 unit) capsule 50 mcg PO DAILY #90 caps 08/15/22 [Rx Last Taken Unknown] flash glucose sensor (FreeStyle Sandra 14 Day Sensor kit) #2 ea 08/15/22 [Rx Last Taken Unknown] gabapentin 300 mg capsule 300 mg PO TID 08/15/22 [History Last Taken Unknown] insulin lispro 100 unit/mL subcutaneous pen (Humalog KwikPen (U-100) Insulin) 10 unit subcut TIDWMEAL DM #15 mL 09/03/22 [Rx Last Taken Unknown] pen needle, diabetic 32 gauge x 5/32 (BD Ultra-Fine Sissy Pen Needle) #150 ea 09/03/22 [Rx Last Taken Unknown] hydrocodone-acetaminophen 5-325mg 5mg-325mg 1 tab PO Q6H PRN PRN Pain 3 days #10 TABLETS 09/12/22 [Rx Last Taken Unknown] bupropion HCl 100 mg tablet,12 hr sustained-release (Wellbutrin SR) 100 mg PO DAILY #30 ea 10/10/22 [Rx Last Taken Unknown] lisinopril 40 mg tablet 40 mg PO DAILY 10/10/22 [History Last Taken Unknown] ciprofloxacin HCl 500 mg tablet (Cipro) 500 mg PO BID 7 days #14 tabs 10/13/22 [Rx Last Taken Unknown] hydrocodone-acetaminophen 5-325mg 5mg-325mg 1 tab PO Q6H PRN PRN Pain 2 days #8 TABLETS 10/13/22 [Rx Last Taken Unknown] ondansetron 4 mg disintegrating tablet 4 mg PO Q8H PRN PRN Nausea #10 tabs 10/13/22 [Rx Last Taken Unknown] dicyclomine 20 mg tablet 20 mg PO TID abd cramping #20 tabs 10/17/22 [Rx Last Taken Unknown] orphenadrine citrate 100 mg tablet,extended release 100 mg PO Q12H PRN muscle pain #14 tabs 10/17/22 [Rx Last Taken Unknown] promethazine 25 mg tablet 25 mg PO TID PRN nausea and vomiting #14 tabs 10/17/22 [Rx Last Taken Unknown] tramadol 50 mg tablet 50 mg PO Q4H PRN PRN Pain #20 tabs 10/17/22 [Rx Last Taken Unknown] Allergy/AdvReac Type Severity Reaction Status Date / Time duloxetine [From Cymbalta] Allergy Unknown Verified 10/26/22 20:48 pregabalin [From Lyrica] Allergy Unknown Verified 10/26/22 20:48 Penicillins AdvReac Mild leaves a Verified 10/26/22 20:48 bad taste in her mouth. acetaminophen AdvReac Vomiting Verified 10/26/22 20:49 aspirin AdvReac Upset Verified 10/26/22 20:48 Stomach NSAIDS (Non-Steroidal AdvReac Upset Verified 10/26/22 20:48 Anti-Inflamma Stomach Family History Father Cancer Unclear type. Mother Lung cancer Concurrent tobacco use history. Surgical History History of ankle surgery History of History of carpal tunnel release History of hysterectomy History of open reduction and internal fixation (ORIF) procedure History of partial thyroidectomy Social History household members: none Smoking Status: Current every day smoker tobacco type: cigarettes alcohol intake: never substance use type: does not use ROS ROS ED Constitutional Constitutional ED: Denies fever(s) Gastrointestinal Gastrointestinal: Reports abdominal pain; Denies constipation or vomiting Musculoskeletal Musculoskeletal: Reports back pain EXAM Physical Exam Const Vital Signs: 10/26/22 20:24 10/26/22 20:51 Temperature 97.3 F L Temperature Source Temporal Pulse Rate 95 89 Respiratory Rate 16 22 H Blood Pressure 244/101 H 225/98 H Blood Pressure Mean 148 140 Pulse Ox 100 98 Oxygen Delivery Method Room Air Room Air Positive well nourished and well developed General Appearance ED: well developed HEENT Reports moist mucous membranes Neck supple Chest Wall inspection of chest normal Resp normal respiratory effort Resp Narrative: Speaking in full sentences without any respiratory distress GI non-distended Back/Spine Back/Spine Narrative: Ambulates in the ER without difficulty Thoracic Spine / Upper Back: Negative for thoracic spinal tenderness Lumbar Spine / Lower Back: Negative for lumbar spinal tenderness Extremity normal to inspection General Extremety ED: Negative for edema General Extremity: Negative for edema Neuro oriented x3 Sensorium / Orientation: alert Motor Exam: Negative for general weakness Psych mental status grossly normal Skin no rashes or lesions noted MDM MDM MDM Narrative Medical decision making narrative: Patient's evaluated for chronic back pain as well as right upper quadrant pain. I did offer the patient a GI cocktail and further evaluation. She allows only a limited exam as she is already trying to leave the room. Initially she is agreeable to at least get a GI cocktail but then states she has to go because her ride is here. Patient's vital signs are significant for hypertension however patient appears to have a history of this. She is informed of this and states that she did take her medicine today. Based on my discussion with her she does not appear to be having an acute hypertensive emergency as she has no chest pain does not appear to be in pulmonary edema and does not have signs or symptoms of a stroke. Patient is encouraged to return to the ER if she changes her mind would like further evaluation. She does not have any red flag symptoms of cauda equina syndrome. She is able to walk around the ER quite easily. Discharge Plan Triage Chief Complaint: Abd Pain Other Complaint: Back ED Provider: Dia Roberts Dx/Rx/DC Orders Clinical Impression: Low back pain, Right upper quadrant abdominal pain Prescriptions: No Action atorvastatin 80 mg tablet 80 mg PO QHS budesonide-formoterol [Symbicort] 160-4.5 mcg/actuation HFA aerosol inhaler 2 puff inhalation BID albuterol sulfate 90 mcg/actuation HFA aerosol inhaler 2 puff inhalation Q6H PRN (Reason: SOB) pantoprazole 40 mg tablet,delayed release (DR/EC) 40 mg PO DAILY gabapentin 300 mg capsule 300 mg PO TID cholecalciferol (vitamin D3) 50 mcg (2,000 unit) capsule 50 mcg PO DAILY Qty: 90 3RF (DME) [employer] 14 Day Sensor Kit See Rx Instructions .Route Qty: 2 5RF Rx Instructions: As directed lisinopril 40 mg tablet 40 mg PO DAILY bupropion HCl [Wellbutrin SR] 100 mg tablet sustained-release 12 hr 100 mg PO DAILY Qty: 30 2RF insulin glargine 100 unit/mL (3 mL) insulin pen 25 unit SC BREAKFAST ipratropium-albuterol 0.5 mg-3 mg(2.5 mg base)/3 mL solution for nebulization 3 ml inhalation 4X/DAY PRN (Reason: sob) loratadine 10 mg tablet 10 mg PO DAILY acetaminophen 500 mg tablet 1,000 mg PO Q8H PRN (Reason: Pain) hydrocodone-acetaminophen [hydrocodone-acetaminophen] 5-325 mg tablet 1 tab PO Q6H PRN PRN (Reason: Pain) 3 Days Qty: 10 0RF ciprofloxacin HCl [Cipro] 500 mg tablet 500 mg PO BID 7 Days Qty: 14 0RF ondansetron 4 mg tablet,disintegrating 4 mg PO Q8H PRN PRN (Reason: Nausea) Qty: 10 0RF hydrocodone-acetaminophen 5-325 mg tablet 1 tab PO Q6H PRN PRN (Reason: Pain) 2 Days Qty: 8 0RF dicyclomine 20 mg tablet 20 mg PO TID Qty: 20 0RF promethazine 25 mg tablet 25 mg PO TID PRN (Reason: nausea and vomiting) Qty: 14 0RF tramadol 50 mg tablet 50 mg PO Q4H PRN PRN (Reason: Pain) Qty: 20 0RF orphenadrine citrate 100 mg tablet extended release 100 mg PO Q12H PRN (Reason: muscle pain) Qty: 14 0RF insulin lispro [Humalog KwikPen Insulin] 100 unit/mL insulin pen 10 unit subcut TIDWMEAL Qty: 15 3RF Protocol: 4. Sliding Scale Insulin High-Med Dosing Condition: 150-199 mg/dl = 2 units Condition: 200-259 mg/dl = 4 units Condition: 260-324 mg/dl = 6 units Condition: 325-374 mg/dl = 8 units Condition: 375-409 mg/dl = 10 units Condition: 410-449 mg/dl = 11 units Condition: Greater than 449 call physician Protocol Text: - Use for Total Daily Dose of Insulin 56-80 units - Patient who are insulin resistant or septic HIGH MEDIUM DOSING ALGORITHM (DME) pen needle, diabetic [BD Ultra-Fine Sissy Pen Needle] 32 gauge x 5/32 needle See Rx Instructions .ROUTE .MEDSUPPLY Qty: 150 3RF Rx Instructions: 5 times daily Primary Care Provider: Sylvie Alcala Referrals: Sylvie Alcala DO [Primary Care Provider] - Disposition Disposition: Elopement Discharge Date/Time: 10/26/22 21:56
--- NOTE | 2022-10-26 21:52 | ED.RN ---
PT STATES I CALLED FOR A RIDE AND AM GOING HOME I CAN LAY AROUND AT HOME. THIS RN TOLD DR. GRECO. DR. GRECO CAME TO PTS ROOM AND SPOKE TO PT ABOUT THE PLAN OF CARE SHE CAME UP WITH FOR PT. PT WALKED OUT OF ER AT 2150. DR. GRECO AND Shane CALIX RN (CHARGE NURSE) AWARE.
== END 2022-10-26 21:56 | disposition left against medical advice (07) ==
PROVIDERS: Emergency Provider Emergency Medicine; PCP Family Medicine; Visit Provider Emergency Medicine
DX: M54.50 Low back pain, unspecified (principal); J44.9 Chronic obstructive pulmonary disease, unspecified; E11.9 Type 2 diabetes mellitus without complications; Z79.4 Long term (current) use of insulin; I25.10 Atherosclerotic heart disease of native coronary artery without angina pectoris; I10 Essential (primary) hypertension; E78.00 Pure hypercholesterolemia, unspecified; G89.29 Other chronic pain; R10.11 Right upper quadrant pain
CPT/HCPCS: 99284

== ENCOUNTER 2022-10-31 20:56 | Emergency (ER) | payer MEDICAID, SELFPAY ==
[2022-10-31 20:57] VITALS: PULSE 72; RESP 14; TEMP 36.6; O2SAT 99; BMI 29.2
[2022-10-31 21:00] VITALS: BP 263/128
--- NOTE | 2022-10-31 21:13 | EDS_ITS ---
HPI History of Present Illness Chief Complaint: Back Detail of Chief Complaint: Back pain Informant: patient Narrative Narrative: Patient presents with exacerbation of her chronic back pain. Patient has history of a failed back fusion and she is has been seeing back surgeons for opinions on possible revision and is scheduled to see another back surgeon next week. Patient also in pain management currently and sees a Dr. Jackson whom she daniel calderónt recently started seeing. Patient states that she was taken off her hydrocodone and oxycodone and was started on a Butrans patch which she has not received yet. Patient having exacerbation of her chronic pain today. She always has pain down her legs. She denies loss of bowel or bladder function or difficulty ambulating. Patient denies any new falls or trauma. Patient has had multiple ER visits for same complaint. During her last visit several days ago she had a CT scan of the lumbar spine which showed a failed fusion otherwise no acute process. [facility] Medical History Anxiety Arthritis Asthma Back pain Back pain Cardiology follow-up encounter Chronic neck and back pain COPD (chronic obstructive pulmonary disease) Coronary artery calcification seen on CAT scan CPAP (continuous positive airway pressure) dependence Depression Dietary restriction Difficulty balancing Gastric reflux High cholesterol History of arthritis History of echocardiogram History of edema History of pain when walking History of renal disease History of stomach ulcers History of stress test Hypertension Injury of head and neck Insulin dependent diabetes mellitus Knee pain Lumbar stenosis Obesity Osteomyelitis Shortness of breath on exertion Shoulder pain Sleep apnea Smoker Spinal fusion failure Strain of muscle, fascia and tendon of pelvis, initial encounter Strain of right hip and thigh Strain of right inguinal region Strain of unspecified muscles, fascia and tendons at thigh level, right thigh, initial encounter Syncope Thyroid disease Type 2 diabetes mellitus Walker as ambulation aid Wears glasses Home Medications insulin glargine 100 unit/mL (3 mL) subcutaneous pen 25 unit subcut BREAKFAST DIABETES 11/03/20 [History Last Taken 06/14/22] albuterol sulfate 90 mcg/actuation aerosol inhaler 2 puff inhalation Q6H PRN SOB 06/14/21 [History Last Taken 06/14/22] atorvastatin 80 mg tablet 80 mg PO QHS CHOLESTEROL 06/14/21 [History Last Taken 06/13/22] budesonide-formoterol HFA 160 mcg-4.5 mcg/actuation aerosol inhaler (Symbicort) 2 puff inhalation BID ASTHMA 06/14/21 [History Last Taken 12/25/21] pantoprazole 40 mg tablet,delayed release 40 mg PO DAILY GERD 06/14/21 [History Last Taken 06/14/22] ipratropium 0.5 mg-albuterol 3 mg (2.5 mg base)/3 mL nebulization soln 3 ml inhalation 4X/DAY PRN sob 11/27/21 [History Last Taken 11/25/21] loratadine 10 mg tablet 10 mg PO DAILY allergies 11/27/21 [History Last Taken 02/21/22] acetaminophen 500 mg tablet 1,000 mg PO Q8H PRN Pain 02/22/22 [History Last Taken 06/14/22] cholecalciferol (vitamin D3) 50 mcg (2,000 unit) capsule 50 mcg PO DAILY #90 caps 08/15/22 [Rx Last Taken Unknown] flash glucose sensor (FreeStyle Sandra 14 Day Sensor kit) #2 ea 08/15/22 [Rx Last Taken Unknown] gabapentin 300 mg capsule 300 mg PO TID 08/15/22 [History Last Taken Unknown] insulin lispro 100 unit/mL subcutaneous pen (Humalog KwikPen (U-100) Insulin) 10 unit subcut TIDWMEAL DM #15 mL 09/03/22 [Rx Last Taken Unknown] pen needle, diabetic 32 gauge x 5/32 (BD Ultra-Fine Sissy Pen Needle) #150 ea 09/03/22 [Rx Last Taken Unknown] hydrocodone-acetaminophen 5-325mg 5mg-325mg 1 tab PO Q6H PRN PRN Pain 3 days #10 TABLETS 09/12/22 [Rx Last Taken Unknown] bupropion HCl 100 mg tablet,12 hr sustained-release (Wellbutrin SR) 100 mg PO DAILY #30 ea 10/10/22 [Rx Last Taken Unknown] lisinopril 40 mg tablet 40 mg PO DAILY 10/10/22 [History Last Taken Unknown] ciprofloxacin HCl 500 mg tablet (Cipro) 500 mg PO BID 7 days #14 tabs 10/13/22 [Rx Last Taken Unknown] hydrocodone-acetaminophen 5-325mg 5mg-325mg 1 tab PO Q6H PRN PRN Pain 2 days #8 TABLETS 10/13/22 [Rx Last Taken Unknown] ondansetron 4 mg disintegrating tablet 4 mg PO Q8H PRN PRN Nausea #10 tabs 10/13/22 [Rx Last Taken Unknown] dicyclomine 20 mg tablet 20 mg PO TID abd cramping #20 tabs 10/17/22 [Rx Last Taken Unknown] orphenadrine citrate 100 mg tablet,extended release 100 mg PO Q12H PRN muscle pain #14 tabs 10/17/22 [Rx Last Taken Unknown] promethazine 25 mg tablet 25 mg PO TID PRN nausea and vomiting #14 tabs 10/17/22 [Rx Last Taken Unknown] tramadol 50 mg tablet 50 mg PO Q4H PRN PRN Pain #20 tabs 10/17/22 [Rx Last Taken Unknown] Allergy/AdvReac Type Severity Reaction Status Date / Time duloxetine [From Cymbalta] Allergy Unknown Verified 10/31/22 20:59 pregabalin [From Lyrica] Allergy Unknown Verified 10/31/22 20:59 Penicillins AdvReac Mild leaves a Verified 10/31/22 20:59 bad taste in her mouth. acetaminophen AdvReac Vomiting Verified 10/31/22 20:59 aspirin AdvReac Upset Verified 10/31/22 20:59 Stomach NSAIDS (Non-Steroidal AdvReac Upset Verified 10/31/22 20:59 Anti-Inflamma Stomach Family History Father Cancer Unclear type. Mother Lung cancer Concurrent tobacco use history. Surgical History History of ankle surgery History of History of carpal tunnel release History of hysterectomy History of open reduction and internal fixation (ORIF) procedure History of partial thyroidectomy Social History household members: none Smoking Status: Current every day smoker tobacco type: cigarettes alcohol intake: never substance use type: does not use ROS ROS ED Review of Systems ROS Unobtainable: other Constitutional Constitutional ED: Reports lethargy; Denies chills, fever(s), sweats or weight loss Eyes Eyes: Denies blurry vision, change in vision or diplopia ENT ENT ED: Denies rhinorrhea or sore throat Cardiovascular Cardiovascular: Denies chest pain, orthopnea or racing heartbeat Respiratory/Chest Respiratory/Chest: Denies cough, dyspnea, dyspnea on exertion, orthopnea or sputum Gastrointestinal Gastrointestinal: Denies abdominal pain, diarrhea, nausea or vomiting Genitourinary Genitourinary ED: Denies dysuria, hematuria or urinary frequency Musculoskeletal Musculoskeletal: Reports back pain; Denies arthralgias, myalgias or neck pain Integumentary Denies abscess, Abrasions or rash Neurologic Neurologic: Denies headache(s) or weakness Psychiatric Psychiatric: Denies anxiety, depression or suicidal thoughts Endocrine Endocrinology: Denies polydipsia, polyphagia or polyuria Hematologic/Lymphatic Hematologic/Lymphatic: Denies easy bleeding, easy bruising or lymphadenopathy Allergic/Immunologic Allergic/Immunologic ED: Denies mouth swelling, tongue swelling or urticaria EXAM Physical Exam Const Vital Signs: 10/31/22 20:57 10/31/22 21:00 10/31/22 21:46 Temperature 97.8 F Temperature Source Temporal Pulse Rate 72 97 Respiratory Rate 14 22 H Blood Pressure 263/128 H 212/96 H Blood Pressure Mean 173 134 Pulse Ox 99 97 Oxygen Delivery Method Room Air T-piece Room Air Positive well nourished and well developed General Appearance ED: well developed and NAD HEENT Reports TM's clear and moist mucous membranes normocephalic and atraumatic; Negative for trauma or tenderness Tympanic Membrane ED: Yes TM's clear Eyes PERRL and EOMs intact bilaterally General Eye ED: Negative for pale conjunctiva or scleral icterus Neck no lymphadenopathy, supple and no JVD General: Negative for tenderness Chest Wall inspection of chest normal and palpation of chest normal Chest: Negative for tenderness Resp normal respiratory effort and clear to auscultation bilaterally Effort and Inspection: Negative for respiratory distress or pain with movement Auscultation: Negative for rhonchi, wheezes or diminished lung sounds Cardio regular rate, regular rhythm, S1 normal heart sound, S2 normal heart sound and no murmurs Peripheral Pulses: pulses 2+ throughout GI normal to inspection, nondistended, normoactive bowel sounds, soft to palpation, non-tender, non-distended and no masses Back/Spine no CVA tenderness and no thoracic nor lumbar tenderness Back/Spine Narrative: Patient with diffuse tenderness palpation of her lumbar spine. No ecchymosis or bruising noted. No bony step-offs. Patient has pain with straight leg raising about 35 degrees when supine bilaterally. Deep tendon reflexes are plus 1 out of 4 bilaterally at the patella and Achilles. Patient has normal L5 extension. Patient has normal sensation to light touch. Extremity normal to inspection General Extremety ED: Negative for edema General Extremity: Negative for edema Neuro oriented x3, CN's II-XII intact bilaterally, no sensory deficits noted and gait normal Sensorium / Orientation: awake, alert, oriented to person, oriented to place and oriented to time Motor Exam: strength 5/5 throughout and strength abnormal Psych mental status grossly normal Skin no rashes or lesions noted and no wounds MDM MDM MDM Narrative Medical decision making narrative: Patient with no red flag symptoms of cauda equina. She has an exacerbation of her chronic pain. She had a CT scan of her lumbar spine on her last visit therefore I do not feel any further imaging is indicated. Patient was medicated with Dilaudid 1 mg IV and Zofran 4 mg IV. She was given hydralazine 10 mg IV for her severe hypertension. Her blood pressure did improve to 209 over 90s which is a significant improvement. Patient also noted to have hyperglycemia with a blood glucose of 426. Patient will take her insulin when she gets home. There is no signs of DKA or nonketotic hyperglycemia. 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 She has hydrocodone that she is allowed to take once daily and she is awaiting her Butrans patch. Lab Data Attestation: I reviewed the patient's lab results. Labs: Laboratory Results - last 24 hr 10/31/22 10/31/22 21:35 21:35 WBC 9.3 RBC 4.14 L Hgb 12.1 Hct 37.2 MCV 89.9 MCH 29.2 MCHC 32.5 RDW Std Deviation 43.0 RDW Coeff of Yudelka 13.0 Plt Count 263 MPV 11.0 Immature Gran % (Auto) 0.300 Neut % (Auto) 65.9 Lymph % (Auto) 24.1 [place] % (Auto) 6.7 Eos % (Auto) 2.8 Baso % (Auto) 0.2 Absolute Neuts (auto) 6.1 Absolute Lymphs (auto) 2.24 Nucleated RBC % 0 Sodium 135 L Potassium 4.8 Chloride 104 Carbon Dioxide 25.0 Anion Gap 6 BUN 27 H Creatinine 1.09 H Estim Creat Clear Calc 45.04 Est GFR (MDRD) Af Amer 66 Est GFR (MDRD) Non-Af 55 L BUN/Creatinine Ratio 24.8 H Glucose 426 H Calcium 9.7 Discharge Plan Triage Chief Complaint: Back ED Provider: Elías Johansen Dx/Rx/DC Orders Clinical Impression: Back pain, Hypertension, Acute hyperglycemia Instructions: Hypertension Dc, ED Back Pain (Acute or Chronic), ED Hypertension, Established Prescriptions: No Action atorvastatin 80 mg tablet 80 mg PO QHS budesonide-formoterol [Symbicort] 160-4.5 mcg/actuation HFA aerosol inhaler 2 puff inhalation BID albuterol sulfate 90 mcg/actuation HFA aerosol inhaler 2 puff inhalation Q6H PRN (Reason: SOB) pantoprazole 40 mg tablet,delayed release (DR/EC) 40 mg PO DAILY gabapentin 300 mg capsule 300 mg PO TID cholecalciferol (vitamin D3) 50 mcg (2,000 unit) capsule 50 mcg PO DAILY Qty: 90 3RF (DME) FreeStyle Sandra 14 Day Sensor Kit See Rx Instructions .Route Qty: 2 5RF Rx Instructions: As directed lisinopril 40 mg tablet 40 mg PO DAILY bupropion HCl [Wellbutrin SR] 100 mg tablet sustained-release 12 hr 100 mg PO DAILY Qty: 30 2RF insulin glargine 100 unit/mL (3 mL) insulin pen 25 unit SC BREAKFAST ipratropium-albuterol 0.5 mg-3 mg(2.5 mg base)/3 mL solution for nebulization 3 ml inhalation 4X/DAY PRN (Reason: sob) loratadine 10 mg tablet 10 mg PO DAILY acetaminophen 500 mg tablet 1,000 mg PO Q8H PRN (Reason: Pain) hydrocodone-acetaminophen [hydrocodone-acetaminophen] 5-325 mg tablet 1 tab PO Q6H PRN PRN (Reason: Pain) 3 Days Qty: 10 0RF ciprofloxacin HCl [Cipro] 500 mg tablet 500 mg PO BID 7 Days Qty: 14 0RF ondansetron 4 mg tablet,disintegrating 4 mg PO Q8H PRN PRN (Reason: Nausea) Qty: 10 0RF hydrocodone-acetaminophen 5-325 mg tablet 1 tab PO Q6H PRN PRN (Reason: Pain) 2 Days Qty: 8 0RF dicyclomine 20 mg tablet 20 mg PO TID Qty: 20 0RF promethazine 25 mg tablet 25 mg PO TID PRN (Reason: nausea and vomiting) Qty: 14 0RF tramadol 50 mg tablet 50 mg PO Q4H PRN PRN (Reason: Pain) Qty: 20 0RF orphenadrine citrate 100 mg tablet extended release 100 mg PO Q12H PRN (Reason: muscle pain) Qty: 14 0RF insulin lispro [Humalog KwikPen Insulin] 100 unit/mL insulin pen 10 unit subcut TIDWMEAL Qty: 15 3RF Protocol: 4. Sliding Scale Insulin High-Med Dosing Condition: 150-199 mg/dl = 2 units Condition: 200-259 mg/dl = 4 units Condition: 260-324 mg/dl = 6 units Condition: 325-374 mg/dl = 8 units Condition: 375-409 mg/dl = 10 units Condition: 410-449 mg/dl = 11 units Condition: Greater than 449 call physician Protocol Text: - Use for Total Daily Dose of Insulin 56-80 units - Patient who are insulin resistant or septic HIGH MEDIUM DOSING ALGORITHM (DME) pen needle, diabetic [BD Ultra-Fine Sissy Pen Needle] 32 gauge x 5/32 needle See Rx Instructions .ROUTE .MEDSUPPLY Qty: 150 3RF Rx Instructions: 5 times daily Primary Care Provider: Sylvie Alcala Referrals: Sylvie Alcala DO [Primary Care Provider] - 3-5 Days Activity Restrictions/Additional Instructions: Follow-up with your pain management doctor for further treatment of your pain. Disposition Disposition: Home, Self Care
[2022-10-31] MEDS: Ondansetron 4 MG/2 ML Vial IV (21:32)
[2022-10-31] MEDS: HYDROmorphone 1 MG/ML Syringe IV (21:34)
[2022-10-31] MEDS: hydrALAZINE 20 MG/ML Vial 10 MG IV (21:35)
[2022-10-31 21:46] VITALS: BP 212/96; PULSE 97; RESP 22; O2SAT 97
[2022-10-31 21:50] LABS: Absolute Lymphocyte Count 2.24 X10^3/uL (0.83-4.51); Absolute Neutrophil Count 6.1 X10^3/uL (2.0-7.7); Basophil# 0.02 X10^3/uL; Basophil% 0.2 % (0-1); Eosinophil# 0.26 X10^3/uL; Eosinophils% 2.8 % (0-5); Hematocrit 37.2 % (37-47); Hemoglobin 12.1 g/dL (12.0-15.0); Lymphocyte # 2.24 X10^3/ul (0.83-4.51); Lymphocyte % 24.1 % (19-41); Mean Corp Hgb Conc 32.5 g/dL (32-36); Mean Corpuscular Hgb 29.2 pg (27.0-32.0); Mean Corpuscular Volume 89.9 fL (81-99); Monocyte# 0.62 X10^3/uL; Monocyte% 6.7 % (0-10); NRBC Flagged by Analyzer 0 % (0-5); Neutrophil # 6.13 X10^3/uL (2.7-7.7); Neutrophil % 65.9 % (47-70); Platelet Count 263 K/mm3 (150-450); Red Blood Count 4.14 M/mm3 (4.2-5.4); White Blood Count 9.3 K/mm3 (4.4-11.0)
[2022-10-31 22:01] LABS: Anion Gap 6 (5-15); BUN 27 mg/dL (7-18); BUN/Creat Ratio 24.8 RATIO (10-20); Calcium,Total 9.7 mg/dL (8.5-10.1); Chloride 104 mmol/L (98-107); Creatinine, Serum 1.09 mg/dL (0.55-1.02); EST Glomerular Filtration Rate 55 mL/min (>60); Est Glom Filt Rate - Afr Amer 66 mL/min (>60); Estimated Creatinine Clearance 45.04 ml/min; Glucose 426 mg/dL (74-106); Potassium 4.8 mmol/L (3.5-5.1); Sodium Level 135 mmol/L (136-145)
== END 2022-10-31 22:40 | disposition home or self-care (01) ==
PROVIDERS: Emergency Provider Emergency Medicine; PCP Family Medicine; Visit Provider Emergency Medicine
DX: M54.9 Dorsalgia, unspecified (principal); J44.9 Chronic obstructive pulmonary disease, unspecified; E11.65 Type 2 diabetes mellitus with hyperglycemia; Z79.4 Long term (current) use of insulin; M79.604 Pain in right leg; G89.29 Other chronic pain; Z98.1 Arthrodesis status; I10 Essential (primary) hypertension; E78.00 Pure hypercholesterolemia, unspecified; M79.605 Pain in left leg; I25.10 Atherosclerotic heart disease of native coronary artery without angina pectoris; F17.210 Nicotine dependence, cigarettes, uncomplicated
CPT/HCPCS: 80048; 85025; 96374; 96375; 99284; A4216; J2405

== ENCOUNTER 2022-11-01 08:06 | Emergency (ER) | payer MEDICAID, SELFPAY ==
[2022-11-01 08:06] VITALS: BP 232/120; PULSE 104; RESP 18; TEMP 36.2; O2SAT 99; BMI 28.1
[2022-11-01] MEDS: HYDROcodone Bitartrate/Apap 5/325 Tablet PO (09:10)
--- NOTE | 2022-11-01 09:13 | ED.RN ---
PT BECAME ANGRY ABOUT WHAT PAIN MEDICINE SHE WAS RECEIVING AND WAS UPSET IT WASN'T THE DILAUDID SHE RECEIVED LAST NIGHT. SHE STATED SHE HAS THIS MEDICATION AT HOME AND IT DOESN'T WORK. OFFERED TO WASTE IT BUT SHE SAID SHE WOLS TAKE IT. THOUGH THIS INTERACTION PT WAS MOVING AROUND AND SITTING UP WITHOUT DIFFICULTY OR DISTRESS NOTED.
[2022-11-01 09:23] LABS: Erythrocyte Sedimentation Rate 35 mm/hr (0-30)
[2022-11-01 09:25] LABS: Absolute Lymphocyte Count 1.52 X10^3/uL (0.83-4.51); Basophil# 0.04 X10^3/uL; Basophil% 0.4 % (0-1); Eosinophils% 1.1 % (0-5); Hematocrit 41.3 % (37-47); Hemoglobin 13.3 g/dL (12.0-15.0); Lymphocyte # 1.52 X10^3/ul (0.83-4.51); Lymphocyte % 16.5 % (19-41); Mean Corp Hgb Conc 32.2 g/dL (32-36); Mean Corpuscular Hgb 28.4 pg (27.0-32.0); Mean Corpuscular Volume 88.2 fL (81-99); Mean Platelet Vol. 11.1 fl (6.2-12.0); Monocyte# 0.48 X10^3/uL; Monocyte% 5.2 % (0-10); NRBC Flagged by Analyzer 0 % (0-5); Neutrophil # 7.03 X10^3/uL (2.7-7.7); Neutrophil % 76.5 % (47-70); Platelet Count 274 K/mm3 (150-450); RBC Distribution Width CV 12.9 % (11.6-14.6); RBC Distribution Width SD 41.4 fl (35.1-43.9); Red Blood Count 4.68 M/mm3 (4.2-5.4); White Blood Count 9.2 K/mm3 (4.4-11.0)
--- NOTE | 2022-11-01 09:36 | EDS_ITS ---
HPI History of Present Illness Chief Complaint: Back Informant: patient Narrative Narrative: Patient is a 56 year old female known to our emergency room with history of chronic back pain, osteomyelitis of the lumbar spine, failed fusion of the lumbar spine, diabetes and neuropathy presenting with worsening back pain. Patient has been seen 6 times this month for her back pain. Patient is in the process of getting a care plan through our emergency room. Patient followed with pain management, Dr. Jackson, earlier this week and has [place] to take at home and was also prescribed a Butrans patch which apparently she is waiting to receive/get approved. Patient states that she does have some numbness/paresthesias in her left inguinal area but denies any saddle anesthesia. Denies any fever but does report a longstanding night sweats. Denies any bowel or bladder incontinence. Denies any weakness of her legs. Patient was seen in our ER last night (about 12 hours ago) for back pain and elevated blood sugar. She had lab work that showed no signs of DKA or other significant electrolyte abnormalities however she was hyperglycemic. She was given IV Dilaudid at that time. She states that only slightly helped with her pain. 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 [facility] Medical History Anxiety Arthritis Asthma Back pain Back pain Cardiology follow-up encounter Chronic neck and back pain COPD (chronic obstructive pulmonary disease) Coronary artery calcification seen on CAT scan CPAP (continuous positive airway pressure) dependence Depression Dietary restriction Difficulty balancing Gastric reflux High cholesterol History of arthritis History of echocardiogram History of edema History of pain when walking History of renal disease History of stomach ulcers History of stress test Hypertension Injury of head and neck Insulin dependent diabetes mellitus Knee pain Lumbar stenosis Obesity Osteomyelitis Shortness of breath on exertion Shoulder pain Sleep apnea Smoker Spinal fusion failure Strain of muscle, fascia and tendon of pelvis, initial encounter Strain of right hip and thigh Strain of right inguinal region Strain of unspecified muscles, fascia and tendons at thigh level, right thigh, initial encounter Syncope Thyroid disease Type 2 diabetes mellitus Walker as ambulation aid Wears glasses Home Medications insulin glargine 100 unit/mL (3 mL) subcutaneous pen 25 unit subcut BREAKFAST DIABETES 11/03/20 [History Last Taken 06/14/22] albuterol sulfate 90 mcg/actuation aerosol inhaler 2 puff inhalation Q6H PRN SOB 06/14/21 [History Last Taken 06/14/22] atorvastatin 80 mg tablet 80 mg PO QHS CHOLESTEROL 06/14/21 [History Last Taken 06/13/22] budesonide-formoterol HFA 160 mcg-4.5 mcg/actuation aerosol inhaler (Symbicort) 2 puff inhalation BID ASTHMA 06/14/21 [History Last Taken 12/25/21] pantoprazole 40 mg tablet,delayed release 40 mg PO DAILY GERD 06/14/21 [History Last Taken 06/14/22] ipratropium 0.5 mg-albuterol 3 mg (2.5 mg base)/3 mL nebulization soln 3 ml inhalation 4X/DAY PRN sob 11/27/21 [History Last Taken 11/25/21] loratadine 10 mg tablet 10 mg PO DAILY allergies 11/27/21 [History Last Taken 02/21/22] acetaminophen 500 mg tablet 1,000 mg PO Q8H PRN Pain 02/22/22 [History Last Taken 06/14/22] cholecalciferol (vitamin D3) 50 mcg (2,000 unit) capsule 50 mcg PO DAILY #90 caps 08/15/22 [Rx Last Taken Unknown] flash glucose sensor (FreeStyle Sandra 14 Day Sensor kit) #2 ea 08/15/22 [Rx Last Taken Unknown] gabapentin 300 mg capsule 300 mg PO TID 08/15/22 [History Last Taken Unknown] insulin lispro 100 unit/mL subcutaneous pen (Humalog KwikPen (U-100) Insulin) 10 unit subcut TIDWMEAL DM #15 mL 09/03/22 [Rx Last Taken Unknown] pen needle, diabetic 32 gauge x 5/32 (BD Ultra-Fine Sissy Pen Needle) #150 ea 09/03/22 [Rx Last Taken Unknown] hydrocodone-acetaminophen 5-325mg 5mg-325mg 1 tab PO Q6H PRN PRN Pain 3 days #10 TABLETS 09/12/22 [Rx Last Taken Unknown] bupropion HCl 100 mg tablet,12 hr sustained-release (Wellbutrin SR) 100 mg PO DAILY #30 ea 10/10/22 [Rx Last Taken Unknown] lisinopril 40 mg tablet 40 mg PO DAILY 10/10/22 [History Last Taken Unknown] ciprofloxacin HCl 500 mg tablet (Cipro) 500 mg PO BID 7 days #14 tabs 10/13/22 [Rx Last Taken Unknown] hydrocodone-acetaminophen 5-325mg 5mg-325mg 1 tab PO Q6H PRN PRN Pain 2 days #8 TABLETS 10/13/22 [Rx Last Taken Unknown] ondansetron 4 mg disintegrating tablet 4 mg PO Q8H PRN PRN Nausea #10 tabs 10/13/22 [Rx Last Taken Unknown] dicyclomine 20 mg tablet 20 mg PO TID abd cramping #20 tabs 10/17/22 [Rx Last Taken Unknown] orphenadrine citrate 100 mg tablet,extended release 100 mg PO Q12H PRN muscle pain #14 tabs 10/17/22 [Rx Last Taken Unknown] promethazine 25 mg tablet 25 mg PO TID PRN nausea and vomiting #14 tabs 10/17/22 [Rx Last Taken Unknown] tramadol 50 mg tablet 50 mg PO Q4H PRN PRN Pain #20 tabs 10/17/22 [Rx Last Taken Unknown] Allergy/AdvReac Type Severity Reaction Status Date / Time duloxetine [From Cymbalta] Allergy Unknown Verified 10/31/22 20:59 pregabalin [From Lyrica] Allergy Unknown Verified 10/31/22 20:59 Penicillins AdvReac Mild leaves a Verified 10/31/22 20:59 bad taste in her mouth. acetaminophen AdvReac Vomiting Verified 10/31/22 20:59 aspirin AdvReac Upset Verified 10/31/22 20:59 Stomach NSAIDS (Non-Steroidal AdvReac Upset Verified 10/31/22 20:59 Anti-Inflamma Stomach Family History Father Cancer Unclear type. Mother Lung cancer Concurrent tobacco use history. Surgical History History of ankle surgery History of History of carpal tunnel release History of hysterectomy History of open reduction and internal fixation (ORIF) procedure History of partial thyroidectomy Social History household members: none Smoking Status: Current every day smoker tobacco type: cigarettes alcohol intake: never substance use type: does not use EXAM Physical Exam Const Vital Signs: 11/01/22 08:06 Temperature 97.2 F L Temperature Source Temporal Pulse Rate 104 H Respiratory Rate 18 Blood Pressure 232/120 H Blood Pressure Mean 157 Pulse Ox 99 Oxygen Delivery Method Room Air MDM MDM MDM Narrative Medical decision making narrative: Patient evaluated for acute on chronic low back pain. She was seen in our ER last night and has been seen multiple times over the past few weeks for similar complaints. Differential includes chronic back pain, osteomyelitis, malingering and drug-seeking behavior. Patient vital signs are significant for hypertension however she is afebrile. She has been hypertensive on multiple ER visits and does have a history of high blood pressure. Is not clear if she is taking her blood pressure medicine. She does not have a leukocytosis. ESR is actually downtrending from 6 months ago and her CRP is normal. No signs of infection on CT performed 10 days ago. I have a low suspicion for acute osteomyelitis. She does not have any overlying erythema, drainage or other signs of infection on the skin. She does not have signs of cauda equina syndrome. Patient was ordered an x-ray of her lumbar spine but had refused. She has to speak to me, the physician. When I went to go in there patient had eloped from the emergency room. Nursing spoke with her and apparently patient ambulated out of the ER without front smoking a cigarette. Patient was given 1 dose of oral [place]. IV pain meds were not given as I suspect there is component of malingering. Patient eloped from the emergency room and was unable to receive discharge instructions or reevaluate. Lab Data Labs: Laboratory Results - last 24 hr 11/01/22 11/01/22 09:10 09:10 WBC 9.2 RBC 4.68 Hgb 13.3 Hct 41.3 MCV 88.2 MCH 28.4 MCHC 32.2 RDW Std Deviation 41.4 RDW Coeff of [place]udelka 12.9 Plt Count 274 MPV 11.1 Immature Gran % (Auto) 0.300 Neut % (Auto) 76.5 H Lymph % (Auto) 16.5 L Jackson % (Auto) 5.2 Eos % (Auto) 1.1 Baso % (Auto) 0.4 Absolute Neuts (auto) 7.0 Absolute Lymphs (auto) 1.52 Nucleated RBC % 0 ESR 35 H C-React Prot Ext Range < 2.90 Discharge Plan Triage Chief Complaint: Back ED Provider: Dia Roberts Dx/Rx/DC Orders Clinical Impression: Acute exacerbation of chronic low back pain, Hx of osteomyelitis Instructions: ED Chronic Pain Prescriptions: No Action atorvastatin 80 mg tablet 80 mg PO QHS budesonide-formoterol [Symbicort] 160-4.5 mcg/actuation HFA aerosol inhaler 2 puff inhalation BID albuterol sulfate 90 mcg/actuation HFA aerosol inhaler 2 puff inhalation Q6H PRN (Reason: SOB) pantoprazole 40 mg tablet,delayed release (DR/EC) 40 mg PO DAILY gabapentin 300 mg capsule 300 mg PO TID cholecalciferol (vitamin D3) 50 mcg (2,000 unit) capsule 50 mcg PO DAILY Qty: 90 3RF (DME) FreeStyle Sandra 14 Day Sensor Kit See Rx Instructions .Route Qty: 2 5RF Rx Instructions: As directed lisinopril 40 mg tablet 40 mg PO DAILY bupropion HCl [Wellbutrin SR] 100 mg tablet sustained-release 12 hr 100 mg PO DAILY Qty: 30 2RF insulin glargine 100 unit/mL (3 mL) insulin pen 25 unit SC BREAKFAST ipratropium-albuterol 0.5 mg-3 mg(2.5 mg base)/3 mL solution for nebulization 3 ml inhalation 4X/DAY PRN (Reason: sob) loratadine 10 mg tablet 10 mg PO DAILY acetaminophen 500 mg tablet 1,000 mg PO Q8H PRN (Reason: Pain) hydrocodone-acetaminophen [hydrocodone-acetaminophen] 5-325 mg tablet 1 tab PO Q6H PRN PRN (Reason: Pain) 3 Days Qty: 10 0RF ciprofloxacin HCl [Cipro] 500 mg tablet 500 mg PO BID 7 Days Qty: 14 0RF ondansetron 4 mg tablet,disintegrating 4 mg PO Q8H PRN PRN (Reason: Nausea) Qty: 10 0RF hydrocodone-acetaminophen 5-325 mg tablet 1 tab PO Q6H PRN PRN (Reason: Pain) 2 Days Qty: 8 0RF dicyclomine 20 mg tablet 20 mg PO TID Qty: 20 0RF promethazine 25 mg tablet 25 mg PO TID PRN (Reason: nausea and vomiting) Qty: 14 0RF tramadol 50 mg tablet 50 mg PO Q4H PRN PRN (Reason: Pain) Qty: 20 0RF orphenadrine citrate 100 mg tablet extended release 100 mg PO Q12H PRN (Reason: muscle pain) Qty: 14 0RF insulin lispro [Humalog KwikPen Insulin] 100 unit/mL insulin pen 10 unit subcut TIDWMEAL Qty: 15 3RF Protocol: 4. Sliding Scale Insulin High-Med Dosing Condition: 150-199 mg/dl = 2 units Condition: 200-259 mg/dl = 4 units Condition: 260-324 mg/dl = 6 units Condition: 325-374 mg/dl = 8 units Condition: 375-409 mg/dl = 10 units Condition: 410-449 mg/dl = 11 units Condition: Greater than 449 call physician Protocol Text: - Use for Total Daily Dose of Insulin 56-80 units - Patient who are insulin resistant or septic HIGH MEDIUM DOSING ALGORITHM (DME) pen needle, diabetic [BD Ultra-Fine Sissy Pen Needle] 32 gauge x 5/32 needle See Rx Instructions .ROUTE .MEDSUPPLY Qty: 150 3RF Rx Instructions: 5 times daily Primary Care Provider: Sylvie Alcala Referrals: Sylvie Alcala DO [Primary Care Provider] - Disposition Disposition: Elopement
[2022-11-01 09:42] LABS: CRP < 2.90 mg/L (0.0-3.0)
--- NOTE | 2022-11-01 09:55 | ED.RN ---
PT LEFT ROOM AND WAS FOUND OUTSIDE SMOKING, WHEN ASKED WHAT SHE WAS DOING SHE SAID LEAVING. PT REFUSED HER XRAY ALSO. PT STATES SHE ASKED TO SEE THE DR AND GOT TIRED OF WAITING. PT WAS VISIBLY NOT IN ANY DISTRESS. EXPLAINED TO PT THAT SHE IS HERE FREQUENTLY ENOUGH TO KNOW THE DRS HAVE OTHER PTS TO SEE WELL. PT THEN TOLD THIS NURSE TO GO AWAY. PT STATED NO ONE WANTS TO HELP HER.
== END 2022-11-01 09:58 | disposition left against medical advice (07) ==
PROVIDERS: Emergency Provider Emergency Medicine; PCP Family Medicine; Visit Provider Emergency Medicine
DX: M54.50 Low back pain, unspecified (principal); J44.9 Chronic obstructive pulmonary disease, unspecified; E11.40 Type 2 diabetes mellitus with diabetic neuropathy, unspecified; E11.65 Type 2 diabetes mellitus with hyperglycemia; Z79.4 Long term (current) use of insulin; Z72.89 Other problems related to lifestyle; I10 Essential (primary) hypertension; Z98.1 Arthrodesis status; E78.00 Pure hypercholesterolemia, unspecified; I25.10 Atherosclerotic heart disease of native coronary artery without angina pectoris; Z79.899 Other long term (current) drug therapy; F17.210 Nicotine dependence, cigarettes, uncomplicated; G89.29 Other chronic pain
CPT/HCPCS: 99281; 85025; 85652; 86140; 99283

== ENCOUNTER 2022-11-04 12:47 | Emergency (ER) | payer MEDICAID, SELFPAY ==
[2022-11-04 12:48] VITALS: BP 174/130; PULSE 98; RESP 22; TEMP 36; O2SAT 100
[2022-11-04 14:15] VITALS: BMI 28.5
--- NOTE | 2022-11-04 14:16 | EX.ED.DYSGE1 ---
HPI History of Present Illness Chief Complaint: Abd Pain Detail of Chief Complaint: Right-sided mid to lower back pain and right Informant: patient Onset/Context/Timing Onset: Month(s) (Off-and-on past month increase past week.) Context: Gradual Onset Timing: Intermittent and Waxes and wanes Quality: Pain Location: Previously documented Current Severity: Moderate Maximum Severity: Severe Worsened by: Movement Relieved by: Nothing Associated Symptoms Associated Symptoms: Patient endorses increased urination. She is diabetic. BG T greater than Narrative Narrative: Patient is a 56-year-old woman who presents with right-sided lower back pain and right-sided abdominal pain. This has been an intermittent problem for the past month. She has had several visits this month for back pain as well as hyperglycemia. She denies fever, chills or night sweats. She denies headache, visual, ocular auditory symptoms. She denies cardiac or respiratory symptoms. She reports right-sided abdominal pain described as a tightening sensation. Movement does make the pain in her abdomen as well as back worse. She denies dysuria, frequency, urgency or hematuria. She states the last CAT scan that was done revealed an abnormality on her kidney. This has not been worked up. She denies any radicular pain. She states her gait is abnormal. She does not describe a foot drop, however. She denies saddle paresthesia or anesthesia. She denies bowel or bladder dysfunction. She is status post surgery of the lumbar spine for lumbar stenosis L4-5 with spondylosis, degenerative disc disease at L4-5 and L4-5 radiculopathy. She underwent L4-5 posterior lumbar interbody fusion with insertion of intervertebral biomechanical device. Structural allograft for spinal fusion. There was a bilateral laminectomy L4 as well as foraminotomies and facetectomies with decompression of the bilateral nerve roots. Pedicle screws were placed. There was neuro monitoring during the procedure. There was no mention of complication. Patient underwent L3 percutaneous vertebral body biopsy February 13. Pathology report was unremarkable. Patient had a CT of the lumbar spine performed October 24 of this year and interpreted by Dr. Alcala. This revealed chronically failed spinal fusion at the L4-5 level with bone resorption around the intervertebral device and bone resorption around the multiple pedicle screws. There was no demonstrated subluxation. There were no new abnormalities noted. There is chronic degenerative changes at L3 and L4. Patient had an ultrasound of the gallbladder on October 17. This revealed fatty infiltration liver with no evidence cholelithiasis, no ultrasound evidence of cholecystitis. Negative sonographic Cutler sign. This was read by Dr. Cavanaugh as well. Patient had a CT of the abdomen on October 17 and there was no evidence of pyelonephritis or obstructive uropathy. There was findings consistent with constipation. There was thickening of the gastric wall at the fundus and body which is felt to be due to lack of distention but an infiltration process could not be ruled out. Recommended endoscopy. There was calcific location of the abdominal aorta and branches. There was no evidence of AAA. Prior similar symptoms: Yes Recent Illness/Hospitalization: No PFSH PFSH Medical History Anxiety Arthritis Asthma Back pain Back pain Cardiology follow-up encounter Chronic neck and back pain COPD (chronic obstructive pulmonary disease) Coronary artery calcification seen on CAT scan CPAP (continuous positive airway pressure) dependence Depression Dietary restriction Difficulty balancing Gastric reflux High cholesterol History of arthritis History of echocardiogram History of edema History of pain when walking History of renal disease History of stomach ulcers History of stress test Hypertension Injury of head and neck Insulin dependent diabetes mellitus Knee pain Lumbar stenosis Obesity Osteomyelitis Shortness of breath on exertion Shoulder pain Sleep apnea Smoker Spinal fusion failure Strain of muscle, fascia and tendon of pelvis, initial encounter Strain of right hip and thigh Strain of right inguinal region Strain of unspecified muscles, fascia and tendons at thigh level, right thigh, initial encounter Syncope Thyroid disease Type 2 diabetes mellitus Walker as ambulation aid Wears glasses Home Medications insulin glargine 100 unit/mL (3 mL) subcutaneous pen 25 unit subcut BREAKFAST DIABETES 11/03/20 [History Last Taken 06/14/22] albuterol sulfate 90 mcg/actuation aerosol inhaler 2 puff inhalation Q6H PRN SOB 06/14/21 [History Last Taken 06/14/22] atorvastatin 80 mg tablet 80 mg PO QHS CHOLESTEROL 06/14/21 [History Last Taken 06/13/22] budesonide-formoterol HFA 160 mcg-4.5 mcg/actuation aerosol inhaler (Symbicort) 2 puff inhalation BID ASTHMA 06/14/21 [History Last Taken 12/25/21] pantoprazole 40 mg tablet,delayed release 40 mg PO DAILY GERD 06/14/21 [History Last Taken 06/14/22] ipratropium 0.5 mg-albuterol 3 mg (2.5 mg base)/3 mL nebulization soln 3 ml inhalation 4X/DAY PRN sob 11/27/21 [History Last Taken 11/25/21] loratadine 10 mg tablet 10 mg PO DAILY allergies 11/27/21 [History Last Taken 02/21/22] acetaminophen 500 mg tablet 1,000 mg PO Q8H PRN Pain 02/22/22 [History Last Taken 06/14/22] cholecalciferol (vitamin D3) 50 mcg (2,000 unit) capsule 50 mcg PO DAILY #90 caps 08/15/22 [Rx Last Taken Unknown] flash glucose sensor (FreeStyle Sandra 14 Day Sensor kit) #2 ea 08/15/22 [Rx Last Taken Unknown] gabapentin 300 mg capsule 300 mg PO TID 08/15/22 [History Last Taken Unknown] insulin lispro 100 unit/mL subcutaneous pen (Humalog KwikPen (U-100) Insulin) 10 unit subcut TIDWMEAL DM #15 mL 09/03/22 [Rx Last Taken Unknown] pen needle, diabetic 32 gauge x 5/32 (BD Ultra-Fine Sissy Pen Needle) #150 ea 09/03/22 [Rx Last Taken Unknown] hydrocodone-acetaminophen 5-325mg 5mg-325mg 1 tab PO Q6H PRN PRN Pain 3 days #10 TABLETS 09/12/22 [Rx Last Taken Unknown] bupropion HCl 100 mg tablet,12 hr sustained-release (Wellbutrin SR) 100 mg PO DAILY #30 ea 10/10/22 [Rx Last Taken Unknown] lisinopril 40 mg tablet 40 mg PO DAILY 10/10/22 [History Last Taken Unknown] ciprofloxacin HCl 500 mg tablet (Cipro) 500 mg PO BID 7 days #14 tabs 10/13/22 [Rx Last Taken Unknown] hydrocodone-acetaminophen 5-325mg 5mg-325mg 1 tab PO Q6H PRN PRN Pain 2 days #8 TABLETS 10/13/22 [Rx Last Taken Unknown] ondansetron 4 mg disintegrating tablet 4 mg PO Q8H PRN PRN Nausea #10 tabs 10/13/22 [Rx Last Taken Unknown] dicyclomine 20 mg tablet 20 mg PO TID abd cramping #20 tabs 10/17/22 [Rx Last Taken Unknown] orphenadrine citrate 100 mg tablet,extended release 100 mg PO Q12H PRN muscle pain #14 tabs 10/17/22 [Rx Last Taken Unknown] promethazine 25 mg tablet 25 mg PO TID PRN nausea and vomiting #14 tabs 10/17/22 [Rx Last Taken Unknown] tramadol 50 mg tablet 50 mg PO Q4H PRN PRN Pain #20 tabs 10/17/22 [Rx Last Taken Unknown] Allergy/AdvReac Type Severity Reaction Status Date / Time duloxetine [From Cymbalta] Allergy Unknown Verified 11/04/22 12:47 pregabalin [From Lyrica] Allergy Unknown Verified 11/04/22 12:47 Penicillins AdvReac Mild leaves a Verified 11/04/22 12:47 bad taste in her mouth. acetaminophen AdvReac Vomiting Verified 11/04/22 12:47 aspirin AdvReac Upset Verified 11/04/22 12:47 Stomach NSAIDS (Non-Steroidal AdvReac Upset Verified 11/04/22 12:47 Anti-Inflamma Stomach Family History Father Cancer Unclear type. Mother Lung cancer Concurrent tobacco use history. Surgical History History of ankle surgery History of History of carpal tunnel release History of hysterectomy History of open reduction and internal fixation (ORIF) procedure History of partial thyroidectomy Social History household members: none Smoking Status: Current every day smoker tobacco type: cigarettes alcohol intake: never substance use type: does not use ROS ROS ED Constitutional Constitutional ED: Denies chills, fever(s), subjective, sweats or weight loss Eyes Eyes: Denies blurry vision, change in vision or diplopia ENT ENT ED: Denies ear pain, rhinorrhea or sore throat Cardiovascular Cardiovascular: Denies chest pain, orthopnea, palpitations, paroxysmal nocturnal dyspnea or racing heartbeat Respiratory/Chest Respiratory/Chest: Denies cough, dyspnea, dyspnea on exertion, orthopnea, paroxysmal nocturnal dyspnea or sputum Gastrointestinal Gastrointestinal: Reports abdominal pain and nausea; Denies constipation, diarrhea, melena or vomiting Genitourinary Genitourinary ED: Denies dysuria, hematuria or urinary frequency Musculoskeletal Musculoskeletal: Reports back pain; Denies arthralgias, myalgias or neck pain Integumentary Denies abscess, Abrasions or rash Neurologic Neurologic: Reports paresthesias RLE and LLE (Patient reports paresthesia in the lower extremities is chronic.); Denies headache(s) or weakness Psychiatric Psychiatric: Reports anxiety and depression Endocrine Endocrinology: Denies cold intolerance, heat intolerance or polydipsia Hematologic/Lymphatic Hematologic/Lymphatic: Reports systems reviewed and no addt'l complaints, except as documented and as per HPI Allergic/Immunologic Allergic/Immunologic ED: Denies mouth swelling or tongue swelling EXAM Physical Exam Const Vital Signs: 11/04/22 12:48 Temperature 96.8 F L Temperature Source Temporal Pulse Rate 98 Respiratory Rate 22 H Blood Pressure 174/130 H Blood Pressure Mean 144 Pulse Ox 100 Oxygen Delivery Method Room Air Positive well nourished, well developed and unkempt Constitutional Narrative: Difficult to assess patient's level of pain and if in distress. General Appearance ED: unkempt and well developed; Negative for cyanotic, diaphoretic or pallor HEENT Reports moist mucous membranes HEENT Narrative: Head is atraumatic normocephalic. Posterior pharynx unremarkable. Ears are normal. Nares are patent. Eyes PERRL and EOMs intact bilaterally General Eye ED: Negative for pale conjunctiva or scleral icterus Neck no lymphadenopathy, supple and no JVD Chest Wall inspection of chest normal and palpation of chest normal Resp normal respiratory effort and clear to auscultation bilaterally Cardio regular rate, regular rhythm, S1 normal heart sound, S2 normal heart sound and no murmurs GI non-distended and no masses; Negative for non-tender or hepatosplenomegaly Auscultation: hypoactive bowel sounds Palpation: soft and tender epigastric and LUQ Back/Spine no CVA tenderness Back/Spine Narrative: Pain out of proportion to tactile stimuli. Thoracic Spine / Upper Back: Negative for thoracic spinal tenderness Lumbar Spine / Lower Back: lumbar spinal tenderness Extremity normal to inspection Extremity Narrative: There is no asymmetry, swelling, discoloration, leg vein distention, palpable cords or tenderness along the distribution of the deep venous system. Neuro oriented x3, CN's II-XII intact bilaterally and no sensory deficits noted Neuro Narrative: EHLs intact bilaterally. Patient's gait was observed with no foot drop. Patient able to walk on heels and toes. Patient able to perform 1 legged squat right and left. Patella and ankle reflex are 1+ and symmetric. Normal. Since the and. Straight leg test is negative. Sensorium / Orientation: alert Motor Exam: strength 5/5 throughout Psych Appearance: unkempt Mood & Affect: depressed Skin no rashes or lesions noted, no wounds and No skin turgor normal General Skin Exam: Negative for jaundice or pallor MDM MDM MDM Narrative Medical decision making narrative: Patient had significant work-up this month alone. Unless her laboratory results are abnormal there is no indication to repeat CT of the abdomen or ultrasound of the gallbladder. CT scan reports were read and there is no mention of any renal pathology. Patient was given the benefit of the down medicated with 4 of Zofran for nausea and for morphine for her pain. She is not able to take NSAIDs. Will obtain urine to assess for urinary tract infection. CBC to assess white count and H&H. Comprehensive metabolic panel to assess renal function since she is diabetic and to assess glucose and CO2 anion gap and electrolytes. Since patient has had multiple visits this month and several visits in September will have case management set up a care plan. Lab Data Attestation: I reviewed the patient's lab results. Lab results narrative: CBC is unremarkable. Comprehensive metabolic panel reveals a BUN of 25 with a creatinine of 0.8 with a BUN/creatinine ratio of 28:1. Creatinine clearance is 70. Blood sugar is 125. CO2 anion gap are normal. Lipase and hepatic panel is unremarkable. Labs: Laboratory Results - last 24 hr 11/04/22 11/04/22 14:23 14:23 WBC 8.6 RBC 4.64 Hgb 13.3 Hct 41.2 MCV 88.8 MCH 28.7 MCHC 32.3 RDW Std Deviation 42.5 RDW Coeff of Yudelka 13.1 Plt Count 292 MPV 10.7 Immature Gran % (Auto) 0.100 Neut % (Auto) 62.3 Lymph % (Auto) 27.6 [place] % (Auto) 8.3 Eos % (Auto) 1.5 Baso % (Auto) 0.2 Absolute Neuts (auto) 5.3 Absolute Lymphs (auto) 2.37 Nucleated RBC % 0 Sodium 138 Potassium 4.1 Chloride 105 Carbon Dioxide 26.0 Anion Gap 7 BUN 25 H Creatinine 0.88 Estim Creat Clear Calc 55.79 Est GFR (MDRD) Af Amer 85 Est GFR (MDRD) Non-Af 70 BUN/Creatinine Ratio 28.3 H Glucose 125 H Calcium 10.3 H Total Bilirubin 0.30 AST 16 ALT 17 Alkaline Phosphatase 98 Total Protein 7.3 Albumin 3.4 Globulin 3.9 Albumin/Globulin Ratio 0.9 Lipase 76 Treatment and Re-Evaluation Narrative: Patient had a significant work-up over the past 1 to 2 months and all test revealed no acute pathology and there is no objective findings and laboratory studies are unremarkable patient be discharged to home to follow-up with her PCP and Dr. Medellin the spine surgeon who operated on her. Also will have case management develop a care plan. Patient specifically not to receive opiates unless she has objective findings. Discharge Plan Triage Chief Complaint: Abd Pain Other Complaint: Back Flank Pain ED Provider: Zachary Ni Dx/Rx/DC Orders Clinical Impression: Acute exacerbation of chronic low back pain, Essential hypertension, Intermittent epigastric abdominal pain, Right sided abdominal pain, Hyperglycemia due to type 2 diabetes mellitus, Acute prerenal azotemia Instructions: ED Back Pain (Acute or Chronic) Prescriptions: No Action atorvastatin 80 mg tablet 80 mg PO QHS budesonide-formoterol [Symbicort] 160-4.5 mcg/actuation HFA aerosol inhaler 2 puff inhalation BID albuterol sulfate 90 mcg/actuation HFA aerosol inhaler 2 puff inhalation Q6H PRN (Reason: SOB) pantoprazole 40 mg tablet,delayed release (DR/EC) 40 mg PO DAILY gabapentin 300 mg capsule 300 mg PO TID cholecalciferol (vitamin D3) 50 mcg (2,000 unit) capsule 50 mcg PO DAILY Qty: 90 3RF (DME) FreeStyle Sandra 14 Day Sensor Kit See Rx Instructions .Route Qty: 2 5RF Rx Instructions: As directed lisinopril 40 mg tablet 40 mg PO DAILY bupropion HCl [Wellbutrin SR] 100 mg tablet sustained-release 12 hr 100 mg PO DAILY Qty: 30 2RF insulin glargine 100 unit/mL (3 mL) insulin pen 25 unit SC BREAKFAST ipratropium-albuterol 0.5 mg-3 mg(2.5 mg base)/3 mL solution for nebulization 3 ml inhalation 4X/DAY PRN (Reason: sob) loratadine 10 mg tablet 10 mg PO DAILY acetaminophen 500 mg tablet 1,000 mg PO Q8H PRN (Reason: Pain) hydrocodone-acetaminophen [hydrocodone-acetaminophen] 5-325 mg tablet 1 tab PO Q6H PRN PRN (Reason: Pain) 3 Days Qty: 10 0RF ciprofloxacin HCl [Cipro] 500 mg tablet 500 mg PO BID 7 Days Qty: 14 0RF ondansetron 4 mg tablet,disintegrating 4 mg PO Q8H PRN PRN (Reason: Nausea) Qty: 10 0RF hydrocodone-acetaminophen 5-325 mg tablet 1 tab PO Q6H PRN PRN (Reason: Pain) 2 Days Qty: 8 0RF dicyclomine 20 mg tablet 20 mg PO TID Qty: 20 0RF promethazine 25 mg tablet 25 mg PO TID PRN (Reason: nausea and vomiting) Qty: 14 0RF tramadol 50 mg tablet 50 mg PO Q4H PRN PRN (Reason: Pain) Qty: 20 0RF orphenadrine citrate 100 mg tablet extended release 100 mg PO Q12H PRN (Reason: muscle pain) Qty: 14 0RF insulin lispro [Humalog KwikPen Insulin] 100 unit/mL insulin pen 10 unit subcut TIDWMEAL Qty: 15 3RF Protocol: 4. Sliding Scale Insulin High-Med Dosing Condition: 150-199 mg/dl = 2 units Condition: 200-259 mg/dl = 4 units Condition: 260-324 mg/dl = 6 units Condition: 325-374 mg/dl = 8 units Condition: 375-409 mg/dl = 10 units Condition: 410-449 mg/dl = 11 units Condition: Greater than 449 call physician Protocol Text: - Use for Total Daily Dose of Insulin 56-80 units - Patient who are insulin resistant or septic HIGH MEDIUM DOSING ALGORITHM (DME) pen needle, diabetic [BD Ultra-Fine Sissy Pen Needle] 32 gauge x 5/32 needle See Rx Instructions .ROUTE .MEDSUPPLY Qty: 150 3RF Rx Instructions: 5 times daily Primary Care Provider: Sylvie Alcala Referrals: Beck Medellin DO [Med Staff - Active Staff] - 1-2 Weeks Sylvie Alcala DO [Primary Care Provider] - 3-5 Days Disposition Disposition: Home, Self Care
[2022-11-04] MEDS: Morphine 4 MG/ML Syringe IV (14:18)
[2022-11-04] MEDS: Ondansetron 4 MG/2 ML Vial IV (14:18)
[2022-11-04] MEDS: 0.9% Normal Saline 1,000 ML 150 ML IV (14:19)
[2022-11-04 14:28] LABS: Absolute Lymphocyte Count 2.37 X10^3/uL (0.83-4.51); Absolute Neutrophil Count 5.3 X10^3/uL (2.0-7.7); Basophil# 0.02 X10^3/uL; Basophil% 0.2 % (0-1); Eosinophil# 0.13 X10^3/uL; Eosinophils% 1.5 % (0-5); Hematocrit 41.2 % (37-47); Hemoglobin 13.3 g/dL (12.0-15.0); Lymphocyte # 2.37 X10^3/ul (0.83-4.51); Lymphocyte % 27.6 % (19-41); Mean Corp Hgb Conc 32.3 g/dL (32-36); Mean Corpuscular Hgb 28.7 pg (27.0-32.0); Mean Corpuscular Volume 88.8 fL (81-99); Mean Platelet Vol. 10.7 fl (6.2-12.0); Monocyte# 0.71 X10^3/uL; Monocyte% 8.3 % (0-10); NRBC Flagged by Analyzer 0 % (0-5); Neutrophil # 5.34 X10^3/uL (2.7-7.7); Neutrophil % 62.3 % (47-70); Platelet Count 292 K/mm3 (150-450); RBC Distribution Width CV 13.1 % (11.6-14.6); RBC Distribution Width SD 42.5 fl (35.1-43.9); Red Blood Count 4.64 M/mm3 (4.2-5.4); White Blood Count 8.6 K/mm3 (4.4-11.0)
[2022-11-04 14:44] LABS: ALB/GLOB Ratio 0.9 RATIO (0.9-2.4); AST(SGOT) 16 U/L (15-37); Alanine Aminotransfer ALT/SGPT 17 U/L (13-56); Albumin, Serum 3.4 g/dL (3.2-5.0); Alkaline Phosphatase 98 U/L (45-117); Anion Gap 7 (5-15); BUN 25 mg/dL (7-18); BUN/Creat Ratio 28.3 RATIO (10-20); Calcium,Total 10.3 mg/dL (8.5-10.1); Chloride 105 mmol/L (98-107); Creatinine, Serum 0.88 mg/dL (0.55-1.02); EST Glomerular Filtration Rate 70 mL/min (>60); Est Glom Filt Rate - Afr Amer 85 mL/min (>60); Estimated Creatinine Clearance 55.79 ml/min; Globulin 3.9 g/dL (2.2-4.2); Glucose 125 mg/dL (74-106); Lipase 76 U/L (73-393); Potassium 4.1 mmol/L (3.5-5.1); Protein, Total 7.3 g/dL (6.4-8.2); Sodium Level 138 mmol/L (136-145)
[2022-11-04 15:28] LABS: Bacteria 0 SEEN /hpf (None Seen); Mucous, Urine 0 SEEN /hpf (<or=2+)
[2022-11-04 15:33] LABS: Color, Urine Yellow (Yellow); Glucose, Dipstick 1000 mg/dl (Normal); Ketone-Dipstick Negative (Negative); Leukocyte Esterase-Dipstick Negative /ul (Negative); Nitrite-Dipstick Negative (Negative); Occult Blood-Urine 10 /ul (Negative); Protein-Dipstick 100 mg/dl (Negative); Specific Gravity, Urine 1.015 (1.002-1.030); Urine Bilirubin Dipstick Negative (Negative); Urine Clarity Clear (Clear); Urine Urobilinogen Normal (Normal)
[2022-11-04 15:47] LABS: Red Blood Cells-Urine 0-5 SEEN /hpf (0-5); Squamous Epithelial Cells - UA 0-5 SEEN /hpf (5-10); White Blood Cells 0-5 SEEN /hpf (0-5)
--- NOTE | 2022-11-04 21:50 | CM.ED ---
put order in for patient to have a care plan due. GEORGE put the consult referral in the care plan folder above the copier. Doreen JEWELL
== END 2022-11-04 15:28 | disposition home or self-care (01) ==
PROVIDERS: Emergency Provider Emergency Medicine; PCP Family Medicine; Visit Provider Emergency Medicine
DX: M54.9 Dorsalgia, unspecified (principal); J44.9 Chronic obstructive pulmonary disease, unspecified; E11.65 Type 2 diabetes mellitus with hyperglycemia; I70.0 Atherosclerosis of aorta; M51.16 Intervertebral disc disorders with radiculopathy, lumbar region; M48.061 Spinal stenosis, lumbar region without neurogenic claudication; Z98.1 Arthrodesis status; I25.10 Atherosclerotic heart disease of native coronary artery without angina pectoris; I10 Essential (primary) hypertension; R10.13 Epigastric pain; K76.0 Fatty (change of) liver, not elsewhere classified; R11.0 Nausea; E78.00 Pure hypercholesterolemia, unspecified; Z98.890 Other specified postprocedural states; R39.2 Extrarenal uremia
CPT/HCPCS: 80053; 81001; 83690; 85025; 96361; 96374; 96375; 99283; J7030; A4216; J2405

== ENCOUNTER 2022-11-11 09:04 | Emergency (ER) | payer MEDICAID, SELFPAY ==
[2022-11-11 09:04] VITALS: BP 152/96; PULSE 93; RESP 18; TEMP 36.2; O2SAT 100; BMI 28.5
[2022-11-11 09:12] VITALS: BP 166/91; PULSE 88; RESP 16; O2SAT 99
--- NOTE | 2022-11-11 09:25 | EX.ED.DYSGE1 ---
HPI History of Present Illness Chief Complaint: Hypertension Narrative Narrative: 56-year-old female past medical history of chronic back pain, hypertension, diabetes, presents with multiple somatic complaints. While she is having problems with her chronic back pain, she states that her blood pressure has been elevated over the last few days. She was on lisinopril 40 mg and her primary care provider added amlodipine 10 mg. While this has been a problem for her, she states that today she had black, tarry stools. She is having diffuse abdominal pain. She denies any fevers or chills. No nausea or vomiting. She states she is here for evaluation of her blood pressure, and for her black tarry stools that happened this morning. [facility] Medical History Anxiety Arthritis Asthma Back pain Back pain Cardiology follow-up encounter Chronic neck and back pain COPD (chronic obstructive pulmonary disease) Coronary artery calcification seen on CAT scan CPAP (continuous positive airway pressure) dependence Depression Dietary restriction Difficulty balancing Gastric reflux High cholesterol History of arthritis History of echocardiogram History of edema History of pain when walking History of renal disease History of stomach ulcers History of stress test Hypertension Injury of head and neck Insulin dependent diabetes mellitus Knee pain Lumbar stenosis Obesity Osteomyelitis Shortness of breath on exertion Shoulder pain Sleep apnea Smoker Spinal fusion failure Strain of muscle, fascia and tendon of pelvis, initial encounter Strain of right hip and thigh Strain of right inguinal region Strain of unspecified muscles, fascia and tendons at thigh level, right thigh, initial encounter Syncope Thyroid disease Type 2 diabetes mellitus Walker as ambulation aid Wears glasses Home Medications insulin glargine 100 unit/mL (3 mL) subcutaneous pen 25 unit subcut BREAKFAST DIABETES 11/03/20 [History Last Taken 06/14/22] albuterol sulfate 90 mcg/actuation aerosol inhaler 2 puff inhalation Q6H PRN SOB 06/14/21 [History Last Taken 06/14/22] atorvastatin 80 mg tablet 80 mg PO QHS CHOLESTEROL 06/14/21 [History Last Taken 06/13/22] budesonide-formoterol HFA 160 mcg-4.5 mcg/actuation aerosol inhaler (Symbicort) 2 puff inhalation BID ASTHMA 06/14/21 [History Last Taken 12/25/21] pantoprazole 40 mg tablet,delayed release 40 mg PO DAILY GERD 06/14/21 [History Last Taken 06/14/22] ipratropium 0.5 mg-albuterol 3 mg (2.5 mg base)/3 mL nebulization soln 3 ml inhalation 4X/DAY PRN sob 11/27/21 [History Last Taken 11/25/21] loratadine 10 mg tablet 10 mg PO DAILY allergies 11/27/21 [History Last Taken 02/21/22] acetaminophen 500 mg tablet 1,000 mg PO Q8H PRN Pain 02/22/22 [History Last Taken 06/14/22] cholecalciferol (vitamin D3) 50 mcg (2,000 unit) capsule 50 mcg PO DAILY #90 caps 08/15/22 [Rx Last Taken Unknown] flash glucose sensor (FreeStyle Sandra 14 Day Sensor kit) #2 ea 08/15/22 [Rx Last Taken Unknown] gabapentin 300 mg capsule 300 mg PO TID 08/15/22 [History Last Taken Unknown] insulin lispro 100 unit/mL subcutaneous pen (Humalog KwikPen (U-100) Insulin) 10 unit subcut TIDWMEAL DM #15 mL 09/03/22 [Rx Last Taken Unknown] pen needle, diabetic 32 gauge x 5/32 (BD Ultra-Fine Sissy Pen Needle) #150 ea 09/03/22 [Rx Last Taken Unknown] hydrocodone-acetaminophen 5-325mg 5mg-325mg 1 tab PO Q6H PRN PRN Pain 3 days #10 TABLETS 09/12/22 [Rx Last Taken Unknown] bupropion HCl 100 mg tablet,12 hr sustained-release (Wellbutrin SR) 100 mg PO DAILY #30 ea 10/10/22 [Rx Last Taken Unknown] lisinopril 40 mg tablet 40 mg PO DAILY 10/10/22 [History Last Taken Unknown] ciprofloxacin HCl 500 mg tablet (Cipro) 500 mg PO BID 7 days #14 tabs 10/13/22 [Rx Last Taken Unknown] hydrocodone-acetaminophen 5-325mg 5mg-325mg 1 tab PO Q6H PRN PRN Pain 2 days #8 TABLETS 10/13/22 [Rx Last Taken Unknown] ondansetron 4 mg disintegrating tablet 4 mg PO Q8H PRN PRN Nausea #10 tabs 10/13/22 [Rx Last Taken Unknown] dicyclomine 20 mg tablet 20 mg PO TID abd cramping #20 tabs 10/17/22 [Rx Last Taken Unknown] orphenadrine citrate 100 mg tablet,extended release 100 mg PO Q12H PRN muscle pain #14 tabs 10/17/22 [Rx Last Taken Unknown] promethazine 25 mg tablet 25 mg PO TID PRN nausea and vomiting #14 tabs 10/17/22 [Rx Last Taken Unknown] tramadol 50 mg tablet 50 mg PO Q4H PRN PRN Pain #20 tabs 10/17/22 [Rx Last Taken Unknown] Allergy/AdvReac Type Severity Reaction Status Date / Time duloxetine [From Cymbalta] Allergy Unknown Verified 11/04/22 12:47 pregabalin [From Lyrica] Allergy Unknown Verified 11/04/22 12:47 Penicillins AdvReac Mild leaves a Verified 11/04/22 12:47 bad taste in her mouth. acetaminophen AdvReac Vomiting Verified 11/04/22 12:47 aspirin AdvReac Upset Verified 11/04/22 12:47 Stomach NSAIDS (Non-Steroidal AdvReac Upset Verified 11/04/22 12:47 Anti-Inflamma Stomach Family History Father Cancer Unclear type. Mother Lung cancer Concurrent tobacco use history. Surgical History History of ankle surgery History of History of carpal tunnel release History of hysterectomy History of open reduction and internal fixation (ORIF) procedure History of partial thyroidectomy Social History household members: none Smoking Status: Current every day smoker tobacco type: cigarettes alcohol intake: never substance use type: does not use ROS ROS ED ROS Narrative Constitutional: No fever, no chills. Reported elevated blood pressure. HEENT: No sore throat. No neck pain. No loss of vision. No rhinorrhea. Cardiovascular: No chest pain. No palpitations. No pedal edema. Respiratory: No cough, no shortness of breath. Abdominal: Diffuse abdominal pain. No nausea. No vomiting. Reported melena/black tarry stools. No hematemesis. Genitourinary: No dysuria. No hematuria. Musculoskeletal: No myalgias. No arthralgias. Neurologic: No headaches. No dizziness. No lightheadedness. Skin: No rash. No change in color. Psychiatric: No depression. No anxiety. EXAM Physical Exam Narrative Exam Narrative: Afebrile. Vital signs noted. HEENT: Normocephalic. Atraumatic. PERRL, EOMI. Neck soft and supple. No point tenderness or step off. Cardiovascular: Regular rate and rhythm. No murmurs, rubs, or gallops appreciated. Respiratory: No tachypnea. Lungs clear to auscultation bilaterally. Gastrointestinal: Abdomen soft, diffused grams to palpation, especially left lower quadrant and left upper quadrant. With normoactive bowel sounds. No rebound or guarding. Neurological: Awake. Alert. Nonfocal, nonlateralizing. Skin: No rash. Normal color. No pallor. Musculoskeletal: No pedal edema. Full range of motion extremities. Const Vital Signs: 11/11/22 09:04 11/11/22 09:12 Temperature 97.2 F L Temperature Source Temporal Pulse Rate 93 88 Respiratory Rate 18 16 Blood Pressure 152/96 H 166/91 H Blood Pressure Mean 114 116 Pulse Ox 100 99 Oxygen Delivery Method Room Air Room Air MDM MDM MDM Narrative Medical decision making narrative: Regarding her reported hypertension, her blood pressure is currently 152/96, then slightly elevated at 166/91, but not over 200 as she stated it has been running over the last few days. Comprehensive work-up will be pursued regarding her reported melena including rectal examination/fecal occult blood study. I will obtain a CBC and a BMP and CT imaging of her abdomen. However, I was told by the RN, the patient is refusing all work-up currently. She does not want blood work. She does not want a CT performed. Additionally, she refuses rectal examination. She states that now she just wants her blood pressure checked. With it still being elevated and her history of hypertension, I do feel she can be discharged safely home with follow-up. Regarding her reported melena, she has a follow-up appointment with her lead manufacturing technician Dr. Bermeo. She states that she is taking amlodipine that was added, but its been a week and she said her blood pressure was still elevated above 200 systolic. Currently it is not. She was told to call her primary care provider in the next 1 to 2 days and continue a log of her blood pressures. Since she is refusing all forms of work-up for her other reported problems, I do feel that her medical screening examination is currently negative for an emergent process. I feel she can follow-up with her primary care provider and her lead manufacturing technician. Return instructions to the emergency department were reviewed. Disposition is discharged home in stable condition. Discharge Plan Triage Chief Complaint: Hypertension ED Provider: Song Mercedes Dx/Rx/DC Orders Clinical Impression: Hypertension, Chronic back pain Instructions: ED Hypertension, Established Prescriptions: No Action atorvastatin 80 mg tablet 80 mg PO QHS budesonide-formoterol [Symbicort] 160-4.5 mcg/actuation HFA aerosol inhaler 2 puff inhalation BID albuterol sulfate 90 mcg/actuation HFA aerosol inhaler 2 puff inhalation Q6H PRN (Reason: SOB) pantoprazole 40 mg tablet,delayed release (DR/EC) 40 mg PO DAILY gabapentin 300 mg capsule 300 mg PO TID cholecalciferol (vitamin D3) 50 mcg (2,000 unit) capsule 50 mcg PO DAILY Qty: 90 3RF (DME) FreeStyle Sandra 14 Day Sensor Kit See Rx Instructions .Route Qty: 2 5RF Rx Instructions: As directed lisinopril 40 mg tablet 40 mg PO DAILY bupropion HCl [Wellbutrin SR] 100 mg tablet sustained-release 12 hr 100 mg PO DAILY Qty: 30 2RF insulin glargine 100 unit/mL (3 mL) insulin pen 25 unit SC BREAKFAST ipratropium-albuterol 0.5 mg-3 mg(2.5 mg base)/3 mL solution for nebulization 3 ml inhalation 4X/DAY PRN (Reason: sob) loratadine 10 mg tablet 10 mg PO DAILY acetaminophen 500 mg tablet 1,000 mg PO Q8H PRN (Reason: Pain) hydrocodone-acetaminophen [hydrocodone-acetaminophen] 5-325 mg tablet 1 tab PO Q6H PRN PRN (Reason: Pain) 3 Days Qty: 10 0RF ciprofloxacin HCl [Cipro] 500 mg tablet 500 mg PO BID 7 Days Qty: 14 0RF ondansetron 4 mg tablet,disintegrating 4 mg PO Q8H PRN PRN (Reason: Nausea) Qty: 10 0RF hydrocodone-acetaminophen 5-325 mg tablet 1 tab PO Q6H PRN PRN (Reason: Pain) 2 Days Qty: 8 0RF dicyclomine 20 mg tablet 20 mg PO TID Qty: 20 0RF promethazine 25 mg tablet 25 mg PO TID PRN (Reason: nausea and vomiting) Qty: 14 0RF tramadol 50 mg tablet 50 mg PO Q4H PRN PRN (Reason: Pain) Qty: 20 0RF orphenadrine citrate 100 mg tablet extended release 100 mg PO Q12H PRN (Reason: muscle pain) Qty: 14 0RF insulin lispro [Humalog KwikPen Insulin] 100 unit/mL insulin pen 10 unit subcut TIDWMEAL Qty: 15 3RF Protocol: 4. Sliding Scale Insulin High-Med Dosing Condition: 150-199 mg/dl = 2 units Condition: 200-259 mg/dl = 4 units Condition: 260-324 mg/dl = 6 units Condition: 325-374 mg/dl = 8 units Condition: 375-409 mg/dl = 10 units Condition: 410-449 mg/dl = 11 units Condition: Greater than 449 call physician Protocol Text: - Use for Total Daily Dose of Insulin 56-80 units - Patient who are insulin resistant or septic HIGH MEDIUM DOSING ALGORITHM (DME) pen needle, diabetic [BD Ultra-Fine Sissy Pen Needle] 32 gauge x 5/32 needle See Rx Instructions .ROUTE .MEDSUPPLY Qty: 150 3RF Rx Instructions: 5 times daily Primary Care Provider: Araceli Ramos NP Referrals: Araceli Ramos NP, [facility] [Primary Care Provider] - 1-2 Days if not improving Disposition Disposition: Home, Self Care
--- NOTE | 2022-11-11 09:32 | ED.RN ---
PT REFUSING IV AND BLOOD WORK. PT STATES I JUST WANT MY BLOOD PRESSURE CHECKED
--- NOTE | 2022-11-11 10:24 | ED.RN ---
PATIENT WANTED TO LEAVE BEFORE ANOTHER SET OF VITAL SIGNS WAS TAKEN. PATIENT UNDERSTANDS RISK AND LEFT.
== END 2022-11-11 10:25 | disposition home or self-care (01) ==
PROVIDERS: Emergency Provider Emergency Medicine; PCP Internal Medicine; Visit Provider Emergency Medicine
DX: I10 Essential (primary) hypertension (principal); J44.9 Chronic obstructive pulmonary disease, unspecified; E11.9 Type 2 diabetes mellitus without complications; Z79.4 Long term (current) use of insulin; G89.29 Other chronic pain; I25.10 Atherosclerotic heart disease of native coronary artery without angina pectoris; E78.00 Pure hypercholesterolemia, unspecified; R10.84 Generalized abdominal pain; M54.9 Dorsalgia, unspecified
CPT/HCPCS: 99283

== ENCOUNTER 2022-12-09 07:05 | Emergency (ER) | payer MEDICAID, SELFPAY ==
[2022-12-09 07:05] VITALS: BP 174/107; PULSE 89; RESP 16; TEMP 36.7; O2SAT 100; BMI 29.3
--- NOTE | 2022-12-09 07:15 | CT_ITS ---
STUDY: CT ABDOMEN AND PELVIS WITHOUT CONTRAST REASON FOR EXAM: Female, 56 years old. Back, abd pain RADIATION DOSAGE (If Supplied By Facility): CTDIvol = ( 7.81 ) mGy, DLP = ( 345.13 ) mGycm TECHNIQUE: Transaxial images were obtained from the dome of the diaphragm to the symphysis pubis without oral contrast, and without intravenous contrast. Sagittal and coronal images were reconstructed. Individualized dose optimization techniques were used for this CT. COMPARISON: Comparison is made with prior examination of October 17, 2022. FINDINGS: Minimal right basilar atelectasis. Coronary artery calcification. Small pericardial effusion along the right side of the heart at its base. Normal liver. Findings suggestive of sludge within the gallbladder lumen. Normal spleen. There is diffuse atrophy of the pancreas. Prominence of the left adrenal gland with possible 1.6 cm left renal adenoma. Normal right kidney. Normal left kidney. Once again, there is diffuse thickening of the fundal and body portion of the stomach. Normal small intestine. Fecal material is seen in the colon. The appendix is visualized and appears normal. There is scattered atherosclerotic calcification of the abdominal aorta, without a demonstrated aneurysm. Normal inferior vena cava. There is borderline retroperitoneal lymphadenopathy with enlarged nodes no greater than 10mm in the short axis diameter. Normal urinary bladder. Normal abdominal wall. Once again, the patient is status post laminectomy and fusion at the L4-L5 level. CT/Abdomen/Pelvis without Cont IMPRESSION: Thickening of the fundal portion of the stomach as well as the body of the stomach. Correlation with endoscopy is recommended. Findings suggestive of sludge in the gallbladder lumen. Moderate amount of fecal material is seen in the colon. Electronically Signed: Joaquin Rodney MD at 8:43 EDT ,
--- NOTE | 2022-12-09 07:16 | EX.ED.DYSGE1 ---
HPI History of Present Illness Chief Complaint: Back Informant: patient and EMS Narrative Narrative: Patient presents with acute on chronic abdominal and back pain. She is a history of back pain with a failed prior surgery. She is scheduled for repeat surgery on the of this month. She states she was carrying wood yesterday try to help her mother when she reinjured her back. There was no fall or direct trauma. She is also complaining of upper abdominal pain that has been ongoing for the past couple of weeks. She states she can taste blood in her mouth. She does have a history of gastric ulcers. She is currently on reflux medication. No fever or chills. No problems with bowel or bladder control. [facility] Medical History Anxiety Arthritis Asthma Back pain Back pain Cardiology follow-up encounter Chronic neck and back pain COPD (chronic obstructive pulmonary disease) Coronary artery calcification seen on CAT scan CPAP (continuous positive airway pressure) dependence Depression Dietary restriction Difficulty balancing Gastric reflux High cholesterol History of arthritis History of echocardiogram History of edema History of pain when walking History of renal disease History of stomach ulcers History of stress test Hypertension Injury of head and neck Insulin dependent diabetes mellitus Knee pain Lumbar stenosis Obesity Osteomyelitis Shortness of breath on exertion Shoulder pain Sleep apnea Smoker Spinal fusion failure Strain of muscle, fascia and tendon of pelvis, initial encounter Strain of right hip and thigh Strain of right inguinal region Strain of unspecified muscles, fascia and tendons at thigh level, right thigh, initial encounter Syncope Thyroid disease Type 2 diabetes mellitus Walker as ambulation aid Wears glasses Home Medications insulin glargine 100 unit/mL (3 mL) subcutaneous pen 25 unit subcut BREAKFAST DIABETES 11/03/20 [History Last Taken 06/14/22] albuterol sulfate 90 mcg/actuation aerosol inhaler 2 puff inhalation Q6H PRN SOB 06/14/21 [History Last Taken 06/14/22] atorvastatin 80 mg tablet 80 mg PO QHS CHOLESTEROL 06/14/21 [History Last Taken 06/13/22] budesonide-formoterol HFA 160 mcg-4.5 mcg/actuation aerosol inhaler (Symbicort) 2 puff inhalation BID ASTHMA 06/14/21 [History Last Taken 12/25/21] ipratropium 0.5 mg-albuterol 3 mg (2.5 mg base)/3 mL nebulization soln 3 ml inhalation 4X/DAY PRN sob 11/27/21 [History Last Taken 11/25/21] loratadine 10 mg tablet 10 mg PO DAILY allergies 11/27/21 [History Last Taken 02/21/22] acetaminophen 500 mg tablet 1,000 mg PO Q8H PRN Pain 02/22/22 [History Last Taken 06/14/22] cholecalciferol (vitamin D3) 50 mcg (2,000 unit) capsule 50 mcg PO DAILY #90 caps 08/15/22 [Rx Last Taken Unknown] flash glucose sensor (FreeStyle Sandra 14 Day Sensor kit) #2 ea 08/15/22 [Rx Last Taken Unknown] insulin lispro 100 unit/mL subcutaneous pen (Humalog KwikPen (U-100) Insulin) 10 unit subcut TIDWMEAL DM #15 mL 09/03/22 [Rx Last Taken Unknown] pen needle, diabetic 32 gauge x 5/32 (BD Ultra-Fine Sissy Pen Needle) #150 ea 09/03/22 [Rx Last Taken Unknown] lisinopril 40 mg tablet 40 mg PO DAILY 10/10/22 [History Last Taken Unknown] ondansetron 4 mg disintegrating tablet 4 mg PO Q8H PRN PRN Nausea #10 tabs 10/13/22 [Rx Last Taken Unknown] gabapentin 300 mg capsule 600 mg PO .COMPLEX 11/15/22 [History Last Taken Unknown] Allergy/AdvReac Type Severity Reaction Status Date / Time duloxetine [From Cymbalta] Allergy Unknown Verified 11/15/22 09:50 pregabalin [From Lyrica] Allergy Unknown Verified 11/15/22 09:50 Penicillins AdvReac Mild leaves a Verified 11/15/22 09:50 bad taste in her mouth. acetaminophen AdvReac Vomiting Verified 11/15/22 09:50 aspirin AdvReac Upset Verified 11/15/22 09:50 Stomach NSAIDS (Non-Steroidal AdvReac Upset Verified 11/15/22 09:50 Anti-Inflamma Stomach Family History Father Cancer Unclear type. Mother Lung cancer Concurrent tobacco use history. Surgical History History of ankle surgery History of History of carpal tunnel release History of hysterectomy History of open reduction and internal fixation (ORIF) procedure History of partial thyroidectomy Social History household members: none Smoking Status: Current every day smoker tobacco type: cigarettes alcohol intake: never substance use type: does not use ROS ROS ED Constitutional Constitutional ED: Denies chills or fever(s) Eyes Eyes: Denies change in vision or discharge from eye(s) ENT ENT ED: Denies discharge from eye(s), rhinorrhea or sore throat Cardiovascular Cardiovascular: Denies chest pain or palpitations Respiratory/Chest Respiratory/Chest: Denies cough or dyspnea Gastrointestinal Gastrointestinal: Reports abdominal pain; Denies diarrhea, nausea or vomiting Genitourinary Genitourinary ED: Denies dysuria Musculoskeletal Musculoskeletal: Reports back pain; Denies extremity pain Integumentary Denies Abrasions or rash Neurologic Neurologic: Denies headache(s) or weakness Psychiatric Psychiatric: Denies anxiety or depression Allergic/Immunologic Allergic/Immunologic ED: Denies lip swelling or urticaria EXAM Physical Exam Const Vital Signs: 12/09/22 07:05 Temperature 98.1 F Temperature Source Temporal Pulse Rate 89 Respiratory Rate 16 Blood Pressure 174/107 H Blood Pressure Mean 129 Pulse Ox 100 Oxygen Delivery Method Room Air Positive well nourished and well developed General Appearance ED: well developed HEENT Reports normocephalic and head/scalp atraumatic Eyes PERRL and EOMs intact bilaterally Neck supple Chest Wall inspection of chest normal and palpation of chest normal Resp normal respiratory effort and clear to auscultation bilaterally Cardio regular rate and regular rhythm GI GI Narrative: Upper abdominal tenderness to palpation. No guarding or rebound. Hypoactive but present bowel sounds are noted. Palpation: soft Back/Spine Back/Spine Narrative: Patient with reproducible tenderness over the lower thoracic and lumbar spine. Well-healed lower lumbar surgical incision. No erythema. No focal point tenderness. Extremity normal to inspection Neuro oriented x3 and no sensory deficits noted Sensorium / Orientation: alert Motor Exam: strength 5/5 throughout Psych mental status grossly normal Skin no rashes or lesions noted MDM MDM MDM Narrative Medical decision making narrative: Given single dose of morphine and Zofran while awaiting work-up. Lab work obtained to evaluate for leukocytosis, anemia, electrolyte derangement. Urinalysis obtained to evaluate for infection/hematuria. CT flank obtained given her abdominal and back pain. Lab Data Attestation: I reviewed the patient's lab results. Labs: Laboratory Results - last 24 hr 12/09/22 12/09/22 12/09/22 07:30 07:30 07:40 WBC 10.5 RBC 4.91 Hgb 14.3 Hct 43.4 MCV 88.4 MCH 29.1 MCHC 32.9 RDW Std Deviation 44.7 H RDW Coeff of Yudelka 13.7 Plt Count 278 MPV 11.0 Immature Gran % (Auto) 0.500 Neut % (Auto) 75.4 H Lymph % (Auto) 18.7 L Dillon % (Auto) 4.7 Eos % (Auto) 0.4 Baso % (Auto) 0.3 Absolute Neuts (auto) 8.0 H Absolute Lymphs (auto) 1.97 Nucleated RBC % 0 Sodium 133 L Potassium 4.0 Chloride 102 Carbon Dioxide 27.0 Anion Gap 4 L BUN 17 Creatinine 0.83 Estim Creat Clear Calc 53.72 Est GFR (MDRD) Af Amer 91 Est GFR (MDRD) Non-Af 75 BUN/Creatinine Ratio 20.4 H Glucose 256 H Calcium 10.2 H Total Bilirubin 0.50 Direct Bilirubin 0.14 AST 20 ALT 22 Alkaline Phosphatase 118 H Total Protein 7.4 Albumin 3.4 Globulin 4.0 Lipase 54 L Urine Color Yellow Urine Clarity Clear Urine pH 7.0 Ur Specific [place] 1.010 Urine Protein 500 H Urine Glucose (UA) 1000 H Urine Ketones 5 H Urine Occult Blood 10 H Urine Nitrite Negative Urine Bilirubin Negative Urine Urobilinogen Normal Ur Leukocyte Esterase Negative Urine RBC 0-5 SEEN Urine WBC 0-5 SEEN Ur Squamous Epith Cells 0-5 SEEN Urine Bacteria RARE Urine Mucus 0 SEEN Radiography Diagnostic Testing: Clinical Impression(s) from Imaging Studies Abdomen/Pelvis CT 12/09/22 07:15 IMPRESSION: Thickening of the fundal portion of the stomach as well as the body of the stomach. Correlation with endoscopy is recommended. Findings suggestive of sludge in the gallbladder lumen. Moderate amount of fecal material is seen in the colon. Electronically Signed: Joaquin Rodney MD at 8:43 EDT , Differential Diagnosis Abdominal Pain: Pancreatitis Reason(s) Pancreatitis less likely: NL lab values, Bowel obstruction Reason(s) bowel obstruction less likely: no evidence of bowel obstruction on imaging studies and UTI Reason(s) UTI less likely: no evidence of infection on urinalysis Treatment and Re-Evaluation :: CBC is unremarkable. Chemistry studies significant only for slightly low sodium at 133. LFTs and lipase are normal. Urinalysis reveals no infection. She does have [address] scan of the flank reveals thickening of the fundus of the stomach as well as the body. Recommend endoscopy. Moderate fecal material noted in the bowel. Test results are discussed with the patient. She is known to Dr. Bermeo. I advised her to call his office today and advised that CT imaging shows abnormalities in the stomach and a scope was recommended. She will see him for follow-up. I also did advise her that she still has evidence of constipation and spite of taking MiraLAX daily. I recommended she increase it to twice a day to clean herself out. She voices understanding and agreement. Patient has Percocet at home to use for pain. I will not write her any further pain medication at this time. We did discuss the importance of continuing her antacid. Discharge Plan Triage Chief Complaint: Back ED Provider: Marcy Kidd Dx/Rx/DC Orders Clinical Impression: Abdominal pain, Chronic back pain Instructions: ED Back Pain (Acute or Chronic), ED Gastritis (Adult) Prescriptions: No Action atorvastatin 80 mg tablet 80 mg PO QHS budesonide-formoterol [Symbicort] 160-4.5 mcg/actuation HFA aerosol inhaler 2 puff inhalation BID albuterol sulfate 90 mcg/actuation HFA aerosol inhaler 2 puff inhalation Q6H PRN (Reason: SOB) cholecalciferol (vitamin D3) 50 mcg (2,000 unit) capsule 50 mcg PO DAILY Qty: 90 3RF (DME) FreeStyle Sandra 14 Day Sensor Kit See Rx Instructions .Route Qty: 2 5RF Rx Instructions: As directed gabapentin 300 mg capsule 600 mg PO .COMPLEX Rx Instructions: 600 mg orally QID; lisinopril 40 mg tablet 40 mg PO DAILY insulin glargine 100 unit/mL (3 mL) insulin pen 25 unit SC BREAKFAST ipratropium-albuterol 0.5 mg-3 mg(2.5 mg base)/3 mL solution for nebulization 3 ml inhalation 4X/DAY PRN (Reason: sob) loratadine 10 mg tablet 10 mg PO DAILY acetaminophen 500 mg tablet 1,000 mg PO Q8H PRN (Reason: Pain) ondansetron 4 mg tablet,disintegrating 4 mg PO Q8H PRN PRN (Reason: Nausea) Qty: 10 0RF insulin lispro [Humalog KwikPen Insulin] 100 unit/mL insulin pen 10 unit subcut TIDWMEAL Qty: 15 3RF Protocol: 4. Sliding Scale Insulin High-Med Dosing Condition: 150-199 mg/dl = 2 units Condition: 200-259 mg/dl = 4 units Condition: 260-324 mg/dl = 6 units Condition: 325-374 mg/dl = 8 units Condition: 375-409 mg/dl = 10 units Condition: 410-449 mg/dl = 11 units Condition: Greater than 449 call physician Protocol Text: - Use for Total Daily Dose of Insulin 56-80 units - Patient who are insulin resistant or septic HIGH MEDIUM DOSING ALGORITHM (DME) pen needle, diabetic [BD Ultra-Fine Sissy Pen Needle] 32 gauge x 5/32 needle See Rx Instructions .ROUTE .MEDSUPPLY Qty: 150 3RF Rx Instructions: 5 times daily Primary Care Provider: Araceli Ramos NP Referrals: Davian Bermeo MD [Non-Staff] - As soon as possible Araceli Ramos NP, [employer]OLOG[employer] PROFESSOR-[employer] [Primary Care Provider] - Disposition Disposition: Home, Self Care
[2022-12-09] MEDS: Ondansetron 4 MG/2 ML Vial IV (07:26)
[2022-12-09] MEDS: Morphine 4 MG/ML Syringe IV (07:27)
[2022-12-09] MEDS: 0.9% Normal Saline 1,000 ML 150 ML IV (07:30)
[2022-12-09 07:49] LABS: Absolute Lymphocyte Count 1.97 X10^3/uL (0.83-4.51); Basophil# 0.03 X10^3/uL; Basophil% 0.3 % (0-1); Eosinophil# 0.04 X10^3/uL; Eosinophils% 0.4 % (0-5); Hematocrit 43.4 % (37-47); Hemoglobin 14.3 g/dL (12.0-15.0); Lymphocyte # 1.97 X10^3/ul (0.83-4.51); Lymphocyte % 18.7 % (19-41); Mean Corp Hgb Conc 32.9 g/dL (32-36); Mean Corpuscular Hgb 29.1 pg (27.0-32.0); Mean Corpuscular Volume 88.4 fL (81-99); Monocyte# 0.49 X10^3/uL; Monocyte% 4.7 % (0-10); NRBC Flagged by Analyzer 0 % (0-5); Neutrophil # 7.95 X10^3/uL (2.7-7.7); Neutrophil % 75.4 % (47-70); Platelet Count 278 K/mm3 (150-450); RBC Distribution Width CV 13.7 % (11.6-14.6); RBC Distribution Width SD 44.7 fl (35.1-43.9); Red Blood Count 4.91 M/mm3 (4.2-5.4); White Blood Count 10.5 K/mm3 (4.4-11.0)
[2022-12-09 07:50] LABS: Color, Urine Yellow (Yellow); Glucose, Dipstick 1000 mg/dl (Normal); Ketone-Dipstick 5 mg/dl (Negative); Leukocyte Esterase-Dipstick Negative /ul (Negative); Mucous, Urine 0 SEEN /hpf (<or=2+); Nitrite-Dipstick Negative (Negative); Occult Blood-Urine 10 /ul (Negative); Protein-Dipstick 500 mg/dl (Negative); Urine Bilirubin Dipstick Negative (Negative); Urine Clarity Clear (Clear); Urine Urobilinogen Normal (Normal)
[2022-12-09 07:55] LABS: AST(SGOT) 20 U/L (15-37); Alanine Aminotransfer ALT/SGPT 22 U/L (13-56); Albumin, Serum 3.4 g/dL (3.2-5.0); Alkaline Phosphatase 118 U/L (45-117); Anion Gap 4 (5-15); BUN 17 mg/dL (7-18); BUN/Creat Ratio 20.4 RATIO (10-20); Bilirubin, Direct 0.14 mg/dL (0.00-0.30); Calcium,Total 10.2 mg/dL (8.5-10.1); Chloride 102 mmol/L (98-107); Creatinine, Serum 0.83 mg/dL (0.55-1.02); EST Glomerular Filtration Rate 75 mL/min (>60); Est Glom Filt Rate - Afr Amer 91 mL/min (>60); Estimated Creatinine Clearance 53.72 ml/min; Glucose 256 mg/dL (74-106); Lipase 54 U/L (73-393); Protein, Total 7.4 g/dL (6.4-8.2); Sodium Level 133 mmol/L (136-145)
[2022-12-09 08:00] LABS: Bacteria RARE /hpf (None Seen); Red Blood Cells-Urine 0-5 SEEN /hpf (0-5); Squamous Epithelial Cells - UA 0-5 SEEN /hpf (5-10); White Blood Cells 0-5 SEEN /hpf (0-5)
== END 2022-12-09 09:12 | disposition home or self-care (01) ==
PROVIDERS: Emergency Provider Emergency Medicine; PCP Internal Medicine; Visit Provider Emergency Medicine
DX: M54.9 Dorsalgia, unspecified (principal); J44.9 Chronic obstructive pulmonary disease, unspecified; E11.9 Type 2 diabetes mellitus without complications; Z79.4 Long term (current) use of insulin; G89.29 Other chronic pain; I10 Essential (primary) hypertension; I25.10 Atherosclerotic heart disease of native coronary artery without angina pectoris; E78.00 Pure hypercholesterolemia, unspecified; R10.9 Unspecified abdominal pain
CPT/HCPCS: 74176; 80048; 80076; 81001; 83690; 85025; 96361; 96374; 96375; 99284; J7030; J2405

== ENCOUNTER 2023-01-12 21:15 | Emergency (ER) | payer MEDICAID, SELFPAY ==
[2023-01-12 21:16] VITALS: BP 195/79; PULSE 96; RESP 18; TEMP 36.7; O2SAT 100; BMI 30.2
[2023-01-12] MEDS: Orphenadrine 60 MG/2 ML Ampul IM (21:40)
[2023-01-12] MEDS: Ketorolac 60 MG/2 ML Vial IM (21:40)
--- NOTE | 2023-01-12 22:36 | EX.ED.DYSGE1 ---
HPI History of Present Illness Chief Complaint: Back Narrative Narrative: Patient is a 57-year-old female who is presenting to the ER with chief complaint of acute on chronic lower back pain. Patient was at home today, working in the yard [employer]. Patient states that she took her last oxycodone around 4 5 PM today. Patient ran out of her pain medication. Patient does get a refill tomorrow of her pain medication. Patient states that she has been using heat today, also took a Tylenol this evening. Patient says that she has been trying to fight the pain at home but was uncomfortable so she came into the ER tonight by ambulance. Patient's chief concern is to get a injection of a narcotic and then she can get a Uber ride home so that will help with her pain tonight and so she gets a refill on her pain medication tomorrow. Patient is not going through withdrawal. Patient has no headache, nausea, vomiting, chest pain, shortness of breath, or any other acute complaints. Patient was educated on using ice and not heat for new acute injuries. Patient had recent back surgery in the last month at [facility]. Patient states that she has multiple fractures in her mid to lower thoracic spine and recently had lumbar surgery. Patient has no new signs or symptoms of cauda equina or saddle esthesia. No new radiculopathy or paresthesias into her lower extremities. No abdominal pain, nausea or vomiting. Patient has no new acute complaints. Patient states this is her chronic pain that she reexacerbated by bending over doing mulch at home today. No rash. [facility] Medical History Anxiety Arthritis Asthma Back pain Back pain Cardiology follow-up encounter Chronic neck and back pain COPD (chronic obstructive pulmonary disease) Coronary artery calcification seen on CAT scan CPAP (continuous positive airway pressure) dependence Depression Dietary restriction Difficulty balancing Gastric reflux High cholesterol History of arthritis History of echocardiogram History of edema History of pain when walking History of renal disease History of stomach ulcers History of stress test Hypertension Injury of head and neck Insulin dependent diabetes mellitus Knee pain Lumbar stenosis Obesity Osteomyelitis Shortness of breath on exertion Shoulder pain Sleep apnea Smoker Spinal fusion failure Strain of muscle, fascia and tendon of pelvis, initial encounter Strain of right hip and thigh Strain of right inguinal region Strain of unspecified muscles, fascia and tendons at thigh level, right thigh, initial encounter Syncope Thyroid disease Type 2 diabetes mellitus Walker as ambulation aid Wears glasses Home Medications insulin glargine 100 unit/mL (3 mL) subcutaneous pen 25 unit subcut BREAKFAST DIABETES 11/03/20 [History Last Taken 06/14/22] albuterol sulfate 90 mcg/actuation aerosol inhaler 2 puff inhalation Q6H PRN SOB 06/14/21 [History Last Taken 06/14/22] atorvastatin 80 mg tablet 80 mg PO QHS CHOLESTEROL 06/14/21 [History Last Taken 06/13/22] budesonide-formoterol HFA 160 mcg-4.5 mcg/actuation aerosol inhaler (Symbicort) 2 puff inhalation BID ASTHMA 06/14/21 [History Last Taken 12/25/21] ipratropium 0.5 mg-albuterol 3 mg (2.5 mg base)/3 mL nebulization soln 3 ml inhalation 4X/DAY PRN sob 11/27/21 [History Last Taken 11/25/21] loratadine 10 mg tablet 10 mg PO DAILY allergies 11/27/21 [History Last Taken 02/21/22] acetaminophen 500 mg tablet 1,000 mg PO Q8H PRN Pain 02/22/22 [History Last Taken 06/14/22] cholecalciferol (vitamin D3) 50 mcg (2,000 unit) capsule 50 mcg PO DAILY #90 caps 08/15/22 [Rx Last Taken Unknown] flash glucose sensor (FreeStyle Sandra 14 Day Sensor kit) #2 ea 08/15/22 [Rx Last Taken Unknown] insulin lispro 100 unit/mL subcutaneous pen (Humalog KwikPen (U-100) Insulin) 10 unit subcut TIDWMEAL DM #15 mL 09/03/22 [Rx Last Taken Unknown] pen needle, diabetic 32 gauge x 5/32 (BD Ultra-Fine Sissy Pen Needle) #150 ea 09/03/22 [Rx Last Taken Unknown] lisinopril 40 mg tablet 40 mg PO DAILY 10/10/22 [History Last Taken Unknown] ondansetron 4 mg disintegrating tablet 4 mg PO Q8H PRN PRN Nausea #10 tabs 10/13/22 [Rx Last Taken Unknown] gabapentin 300 mg capsule 600 mg PO .COMPLEX 11/15/22 [History Last Taken Unknown] Allergy/AdvReac Type Severity Reaction Status Date / Time duloxetine [From Cymbalta] Allergy Unknown Verified 01/12/23 21:25 pregabalin [From Lyrica] Allergy Unknown Verified 01/12/23 21:25 Penicillins AdvReac Mild leaves a Verified 01/12/23 21:25 bad taste in her mouth. acetaminophen AdvReac Vomiting Verified 01/12/23 21:25 aspirin AdvReac Upset Verified 01/12/23 21:25 Stomach NSAIDS (Non-Steroidal AdvReac Upset Verified 01/12/23 21:25 Anti-Inflamma Stomach Family History Father Cancer Unclear type. Mother Lung cancer Concurrent tobacco use history. Surgical History History of ankle surgery History of History of carpal tunnel release History of hysterectomy History of open reduction and internal fixation (ORIF) procedure History of partial thyroidectomy Social History household members: none Smoking Status: Current every day smoker tobacco type: cigarettes alcohol intake: never substance use type: does not use ROS ROS ED ROS Narrative REVIEW OF SYSTEMS: Unless otherwise stated in this report the patient's positive and negative responses for review of systems for constitutional, eyes, ENT, cardiovascular, respiratory, gastrointestinal, neurological, , musculoskeletal, and integument systems and related systems to the presenting problem are either stated in the history of present illness or were not pertinent or were negative for the symptoms and/or complaints related to the presenting medical problem. EXAM Physical Exam Narrative Exam Narrative: Vital signs reviewed and patient is not hypoxic. General: The patient appears well and in no apparent distress. Patient is resting uncomfortably on cart. Not toxic, lethargic, or listless. Skin: Warm, dry, no pallor noted. There is no rash noted. Head: Normocephalic, atraumatic Eye: Normal conjunctiva, no drainage, EOMI. PERRL. Ears, Nose, Mouth, and Throat: oral mucosa is moist. Nares patent. Mouth without vesicles. Cardiovascular: Regular Rate and Rhythm, no murmurs, gallops, or rubs Respiratory: Patient is in no distress, no accessory muscle use, lungs are clear to auscultation, no wheezing, rales or rhonchi Back: Patient has moderate tenderness to paraspinal soft tissue to the lower thoracic and upper lumbar spine. Patient surgical scar to the lumbar spine is clean, dry, intact. Patient has no tenderness to palpation to bilateral piriformis muscle, positive straight leg raising bilateral, no signs or symptoms of saddle anesthesia or cauda equina non-tender, no CVA tenderness bilaterally to percussion. NO CTLS midline or paracervicl tenderness to palpation. GI: Soft, no tenderness to palpation, no masses appreciated. No rebound, guarding, or rigidity noted. No palpable mass, no pulsatile mass, no peritoneal signs, no flank pain bilateral. Musculoskeletal: The patient has full range of motion of all extremities and joints with no difficulty. Patient has no motor, no sensory deficits. Neurological: A&O x4, normal speech, no focal neurological deficits. No acute new deficits to bilateral lower extremities. Psychiatric: Cooperative Const Vital Signs: 01/12/23 21:16 Temperature 98.1 F Temperature Source Temporal Pulse Rate 96 Respiratory Rate 18 Blood Pressure 195/79 H Blood Pressure Mean 117 Pulse Ox 100 Oxygen Delivery Method Room Air [facility] Treatment and Re-Evaluation :: Patient was educated there is no acute indication to give her a IM injection or narcotic at this time. Patient took an ambulance to the ER [facility] so that she can get injection of narcotics, and then she could get a Uber ride home and go home to sleep and then get a refill of her oxycodone tomorrow. Patient because her own injury today by mulching in the ER. Patient knows that she should not be doing excessive work and activity, especially with recent lumbar surgery. Patient was given a injection of Toradol and Norflex. Patient was given ice. Patient asked for IM injection narcotics at discharge, patient was educated there is no indication for additional narcotics at this time. Patient will call her PCP and pain management team tomorrow. Patient was educated that we do not treat chronic pain from the emergency room. Discharge Plan Triage Chief Complaint: Back ED Provider: Beck Soalno Dx/Rx/DC Orders Clinical Impression: Chronic bilateral back pain Instructions: Back Safety: Bending, ED Back Pain (Acute or Chronic), ED Back Sprain/Strain, ED Chronic Pain Prescriptions: No Action atorvastatin 80 mg tablet 80 mg PO QHS budesonide-formoterol [Symbicort] 160-4.5 mcg/actuation HFA aerosol inhaler 2 puff inhalation BID albuterol sulfate 90 mcg/actuation HFA aerosol inhaler 2 puff inhalation Q6H PRN (Reason: SOB) cholecalciferol (vitamin D3) 50 mcg (2,000 unit) capsule 50 mcg PO DAILY Qty: 90 3RF (DME) FreeStyle Sandra 14 Day Sensor Kit See Rx Instructions .Route Qty: 2 5RF Rx Instructions: As directed gabapentin 300 mg capsule 600 mg PO .COMPLEX Rx Instructions: 600 mg orally QID; lisinopril 40 mg tablet 40 mg PO DAILY insulin glargine 100 unit/mL (3 mL) insulin pen 25 unit SC BREAKFAST ipratropium-albuterol 0.5 mg-3 mg(2.5 mg base)/3 mL solution for nebulization 3 ml inhalation 4X/DAY PRN (Reason: sob) loratadine 10 mg tablet 10 mg PO DAILY acetaminophen 500 mg tablet 1,000 mg PO Q8H PRN (Reason: Pain) ondansetron 4 mg tablet,disintegrating 4 mg PO Q8H PRN PRN (Reason: Nausea) Qty: 10 0RF insulin lispro [Humalog KwikPen Insulin] 100 unit/mL insulin pen 10 unit subcut TIDWMEAL Qty: 15 3RF Protocol: 4. Sliding Scale Insulin High-Med Dosing Condition: 150-199 mg/dl = 2 units Condition: 200-259 mg/dl = 4 units Condition: 260-324 mg/dl = 6 units Condition: 325-374 mg/dl = 8 units Condition: 375-409 mg/dl = 10 units Condition: 410-449 mg/dl = 11 units Condition: Greater than 449 call physician Protocol Text: - Use for Total Daily Dose of Insulin 56-80 units - Patient who are insulin resistant or septic HIGH MEDIUM DOSING ALGORITHM (DME) pen needle, diabetic [BD Ultra-Fine Sissy Pen Needle] 32 gauge x 5/32 needle See Rx Instructions .ROUTE .MEDSUPPLY Qty: 150 3RF Rx Instructions: 5 times daily Primary Care Provider: Araceli Ramos NP Referrals: Araceli Ramos NP, [employer] [Primary Care Provider] - Activity Restrictions/Additional Instructions: Ice 20 minutes on, 20 minutes off. Do not use heat for acute injuries as discussed at bedside. Follow-up with your physician and pain management physician tomorrow for refills on your medication as discussed. Disposition Disposition: Home, Self Care
== END 2023-01-12 22:45 | disposition home or self-care (01) ==
PROVIDERS: Emergency Provider Emergency Medicine; PCP Internal Medicine; Visit Provider Emergency Medicine
DX: G89.29 Other chronic pain (principal); J44.9 Chronic obstructive pulmonary disease, unspecified; Z79.4 Long term (current) use of insulin; E11.9 Type 2 diabetes mellitus without complications; E78.00 Pure hypercholesterolemia, unspecified; I10 Essential (primary) hypertension; M54.9 Dorsalgia, unspecified; Z99.89 Dependence on other enabling machines and devices; Z79.899 Other long term (current) drug therapy; J45.909 Unspecified asthma, uncomplicated; Z79.51 Long term (current) use of inhaled steroids; F17.210 Nicotine dependence, cigarettes, uncomplicated
CPT/HCPCS: 96372; 99284

== ENCOUNTER 2023-01-19 13:24 | Emergency (ER) | payer MEDICAID, SELFPAY ==
[2023-01-19 13:25] VITALS: BP 133/86; PULSE 89; RESP 18; TEMP 36.6; O2SAT 99
--- NOTE | 2023-01-19 13:58 | EDS_ITS ---
HPI <STEPHON Ham - Last Filed: 01/19/23 16:00> History of Present Illness Chief Complaint: Abd Pain Narrative Narrative: Patient presenting today with sharp and burning epigastric pain that she has had for over a month. She states that it has worsened over the past few days and she cannot tolerate the pain anymore because she just ran out of her pain medication from her back surgery that was performed on 12/19/22. She reports that she is supposed to have an endoscopy in February and does take an antacid daily but is unsure what it is called due to a history of gastric ulcers. She also reports that she does eat a lot of spicy foods. She denies any fever, chills, nausea, vomiting, dark/tarry stools, and urinary symptoms. PFS <STEPHON Ham - Last Filed: 01/19/23 16:00> [facility] Medical History Anxiety Arthritis Asthma Back pain Back pain Cardiology follow-up encounter Chronic neck and back pain COPD (chronic obstructive pulmonary disease) Coronary artery calcification seen on CAT scan CPAP (continuous positive airway pressure) dependence Depression Dietary restriction Difficulty balancing Gastric reflux High cholesterol History of arthritis History of echocardiogram History of edema History of pain when walking History of renal disease History of stomach ulcers History of stress test Hypertension Injury of head and neck Insulin dependent diabetes mellitus Knee pain Lumbar stenosis Obesity Osteomyelitis Shortness of breath on exertion Shoulder pain Sleep apnea Smoker Spinal fusion failure Strain of muscle, fascia and tendon of pelvis, initial encounter Strain of right hip and thigh Strain of right inguinal region Strain of unspecified muscles, fascia and tendons at thigh level, right thigh, initial encounter Syncope Thyroid disease Type 2 diabetes mellitus Walker as ambulation aid Wears glasses Home Medications insulin glargine 100 unit/mL (3 mL) subcutaneous pen 25 unit subcut BREAKFAST DIABETES 11/03/20 [History Last Taken 06/14/22] albuterol sulfate 90 mcg/actuation aerosol inhaler 2 puff inhalation Q6H PRN SOB 06/14/21 [History Last Taken 06/14/22] atorvastatin 80 mg tablet 80 mg PO QHS CHOLESTEROL 06/14/21 [History Last Taken 06/13/22] budesonide-formoterol HFA 160 mcg-4.5 mcg/actuation aerosol inhaler (Symbicort) 2 puff inhalation BID ASTHMA 06/14/21 [History Last Taken 12/25/21] ipratropium 0.5 mg-albuterol 3 mg (2.5 mg base)/3 mL nebulization soln 3 ml inhalation 4X/DAY PRN sob 11/27/21 [History Last Taken 11/25/21] loratadine 10 mg tablet 10 mg PO DAILY allergies 11/27/21 [History Last Taken 02/21/22] acetaminophen 500 mg tablet 1,000 mg PO Q8H PRN Pain 02/22/22 [History Last Taken 06/14/22] cholecalciferol (vitamin D3) 50 mcg (2,000 unit) capsule 50 mcg PO DAILY #90 caps 08/15/22 [Rx Last Taken Unknown] flash glucose sensor (FreeStyle Sandra 14 Day Sensor kit) #2 ea 08/15/22 [Rx Last Taken Unknown] insulin lispro 100 unit/mL subcutaneous pen (Humalog KwikPen (U-100) Insulin) 10 unit subcut TIDWMEAL DM #15 mL 09/03/22 [Rx Last Taken Unknown] pen needle, diabetic 32 gauge x 5/32 (BD Ultra-Fine Sissy Pen Needle) #150 ea 09/03/22 [Rx Last Taken Unknown] lisinopril 40 mg tablet 40 mg PO DAILY 10/10/22 [History Last Taken Unknown] ondansetron 4 mg disintegrating tablet 4 mg PO Q8H PRN PRN Nausea #10 tabs 10/13/22 [Rx Last Taken Unknown] gabapentin 300 mg capsule 600 mg PO .COMPLEX 11/15/22 [History Last Taken Unknown] dicyclomine 10 mg capsule 10 mg PO BID #10 caps 01/19/23 [Rx Last Taken Unknown] ondansetron 4 mg disintegrating tablet 4 mg PO Q8H PRN PRN Nausea #10 tabs 01/19/23 [Rx Last Taken Unknown] Allergy/AdvReac Type Severity Reaction Status Date / Time duloxetine [From Cymbalta] Allergy Unknown Verified 01/19/23 13:27 pregabalin [From Lyrica] Allergy Unknown Verified 01/19/23 13:27 Penicillins AdvReac Mild leaves a Verified 01/19/23 13:27 bad taste in her mouth. acetaminophen AdvReac Vomiting Verified 01/19/23 13:27 aspirin AdvReac Upset Verified 01/19/23 13:27 Stomach NSAIDS (Non-Steroidal AdvReac Upset Verified 01/19/23 13:27 Anti-Inflamma Stomach Family History Father Cancer Unclear type. Mother Lung cancer Concurrent tobacco use history. Surgical History History of ankle surgery History of History of carpal tunnel release History of hysterectomy History of open reduction and internal fixation (ORIF) procedure History of partial thyroidectomy Social History household members: none Smoking Status: Current every day smoker tobacco type: cigarettes alcohol intake: never substance use type: does not use ROS <STEPHNO Ham - Last Filed: 01/19/23 16:00> ROS ED Constitutional Constitutional ED: Denies chills or fever(s) Cardiovascular Cardiovascular: Denies chest pain or palpitations Respiratory/Chest Respiratory/Chest: Denies cough, dyspnea, tachypnea or wheezing Gastrointestinal Gastrointestinal: Reports abdominal pain; Denies constipation, diarrhea, melena, nausea or vomiting Genitourinary Genitourinary ED: Denies dysuria, hematuria or urinary urgency Musculoskeletal Musculoskeletal: Denies arthralgias, back pain, myalgias or neck pain Integumentary Denies abscess, Abrasions or rash Neurologic Neurologic: Denies weakness EXAM <STEPHON Ham - Last Filed: 01/19/23 16:00> Physical Exam Const Vital Signs: 01/19/23 13:25 Temperature 98 F Temperature Source Temporal Pulse Rate 89 Respiratory Rate 18 Blood Pressure 133/86 H Blood Pressure Mean 101 Pulse Ox 99 Oxygen Delivery Method Room Air Positive well nourished, well developed and no apparent distress General Appearance ED: well developed HEENT Reports normocephalic and head/scalp atraumatic Mouth ED: Yes moist mucous membranes normal Eyes PERRL and EOMs intact bilaterally Neck full ROM and supple Chest Wall inspection of chest normal Resp normal respiratory effort and clear to auscultation bilaterally Cardio regular rate and regular rhythm GI non-distended and no masses GI Narrative: Epigastric tenderness to palpation. Palpation: soft Back/Spine normal ROM and normal to inspection Extremity normal to inspection and full ROM Neuro oriented x3, CN's II-XII intact bilaterally, moves all extremities, no focal motor deficits and no sensory deficits noted Sensorium / Orientation: awake and alert Psych mental status grossly normal and thought process normal Skin no rashes or lesions noted and no wounds <Song Mercedes MD - Last Filed: 01/19/23 16:07> Physical Exam Const Vital Signs: 01/19/23 13:25 Temperature 98 F Temperature Source Temporal Pulse Rate 89 Respiratory Rate 18 Blood Pressure 133/86 H Blood Pressure Mean 101 Pulse Ox 99 Oxygen Delivery Method Room Air MDM <STEPHON Ham - Last Filed: 01/19/23 16:00> [facility] Narrative Medical decision making narrative: Patient presenting today with burning epigastric pain that she has had for over a month that has worsened over the past few days. She did mention that today she ran out of her OxyContin that she was taking for a recent back surgery and cannot tolerate her abdominal pain now without her pain medication. Patient has been seen in the ED multiple times for chronic abdominal and back pain and has had multiple CT scans. She is requesting to have something for pain, I have told her we will hold off on these until we get some of the lab work back. Labs to be obtained to rule out leukocytosis, anemia, electrolyte abnormality, pancreatitis. Lipase is WNL, ruling out pancreatitis. This is more of a chronic issue as she has had this epigastric abdominal pain for over a month and has been seen here in the ED with that same complaint multiple times over the past few months. She does have a history of gastric ulcers, this likely could be what is causing her pain. She is supposed to have a endoscopy in February, I have encouraged her to follow-up at that appointment. Patient again asked if she could have something for her pain, I have given her a GI cocktail. She would like to have something for pain for home, she will be given Bentyl and Zofran. She is to follow-up with her PCP and return for any worsening symptoms. She is to continue her antacid and avoid spicy, greasy, acidic foods. She will be discharged home in stable condition and is comfortable with plan. Lab Data Attestation: I reviewed the patient's lab results. Lab results narrative: H&H 11.6 and 36.7, sodium 135, glucose 254, no anion gap, lipase 14 Labs: Laboratory Results - last 24 hr 01/19/23 01/19/23 13:58 13:58 WBC 9.2 RBC 4.17 L Hgb 11.6 L Hct 36.7 L MCV 88.0 MCH 27.8 MCHC 31.6 L RDW Std Deviation 47.3 H RDW Coeff of Yudelka 14.7 H Plt Count 311 MPV 11.3 Immature Gran % (Auto) 0.300 Neut % (Auto) 69.0 Lymph % (Auto) 22.6 [place] % (Auto) 6.5 Eos % (Auto) 1.3 Baso % (Auto) 0.3 Absolute Neuts (auto) 6.4 Absolute Lymphs (auto) 2.08 Nucleated RBC % 0 Sodium 135 L Potassium 4.4 Chloride 103 Carbon Dioxide 24.0 Anion Gap 8 BUN 17 Creatinine 1.03 H Est GFR (MDRD) Af Amer 71 Est GFR (MDRD) Non-Af 59 L BUN/Creatinine Ratio 16.5 Glucose 254 H Calcium 10.0 Total Bilirubin 0.40 AST 26 ALT 22 Alkaline Phosphatase 116 Total Protein 7.1 Albumin 3.0 L Globulin 4.1 Albumin/Globulin Ratio 0.7 L Lipase 14 <Song Mercedes MD - Last Filed: 01/19/23 16:07> MDM MDM Narrative Medical decision making narrative: Patient presenting today with burning epigastric pain that she has had for over a month that has worsened over the past few days. She did mention that today she ran out of her OxyContin that she was taking for a recent back surgery and cannot tolerate her abdominal pain now without her pain medication. Patient has been seen in the ED multiple times for chronic abdominal and back pain and has had multiple CT scans. She is requesting to have something for pain, I have told her we will hold off on these until we get some of the lab work back. Labs to be obtained to rule out leukocytosis, anemia, electrolyte abnormality, pancreatitis. Lipase is WNL, ruling out pancreatitis. This is more of a chronic issue as she has had this epigastric abdominal pain for over a month and has been seen here in the ED with that same complaint multiple times over the past few months. She does have a history of gastric ulcers, this likely could be what is causing her pain. She is supposed to have a endoscopy in February, I have encouraged her to follow-up at that appointment. Patient again asked if she could have something for her pain, I have given her a GI cocktail. She would like to have something for pain for home, she will be given Bentyl and Zofran. She is to follow-up with her PCP and return for any worsening symptoms. She is to continue her antacid and avoid spicy, greasy, acidic foods. She will be discharged home in stable condition and is comfortable with plan. I have personally performed a face to face assessment of the patient and have reviewed the MIGUE Note. I performed a substantive portion of the visit including all aspects of the following. My carrasco findings include: History is chronic abdominal pain, history of back surgery. Exam is afebrile. Vital signs noted. Abdomen soft and nontender without guarding or rebound. Medical Decision Making prior charts reviewed. Patient with chronic back pain seen last week wanting narcotic pain medication. I do not feel narcotic pain medication is currently indicated, nor do I feel that she has to have a CT today as she had a CT of her abdomen and pelvis in December and is supposed to be following up with gastroenterology. I do feel this is exacerbation of her chronic abdominal pain. IM Bentyl, check labs. GI cocktail. Discharge. Other additions or changes: [None] History & Record Review Discussion w/independent historian: Patient Additional record(s) reviewed:: Prior ED visit Lab Data Labs: Laboratory Results - last 24 hr 01/19/23 01/19/23 13:58 13:58 WBC 9.2 RBC 4.17 L Hgb 11.6 L Hct 36.7 L MCV 88.0 MCH 27.8 MCHC 31.6 L RDW Std Deviation 47.3 H RDW Coeff of Yudelka 14.7 H Plt Count 311 MPV 11.3 Immature Gran % (Auto) 0.300 Neut % (Auto) 69.0 Lymph % (Auto) 22.6 [place] % (Auto) 6.5 Eos % (Auto) 1.3 Baso % (Auto) 0.3 Absolute Neuts (auto) 6.4 Absolute Lymphs (auto) 2.08 Nucleated RBC % 0 Sodium 135 L Potassium 4.4 Chloride 103 Carbon Dioxide 24.0 Anion Gap 8 BUN 17 Creatinine 1.03 H Est GFR (MDRD) Af Amer 71 Est GFR (MDRD) Non-Af 59 L BUN/Creatinine Ratio 16.5 Glucose 254 H Calcium 10.0 Total Bilirubin 0.40 AST 26 ALT 22 Alkaline Phosphatase 116 Total Protein 7.1 Albumin 3.0 L Globulin 4.1 Albumin/Globulin Ratio 0.7 L Lipase 14 Discharge Plan Triage Chief Complaint: Abd Pain ED Midlevel Provider: Ernestina Hassan ED Provider: Song Mercedes Dx/Rx/DC Orders Clinical Impression: Abdominal pain Instructions: ED Epigastric Pain Uncertain Cause Prescriptions: New ondansetron 4 mg tablet,disintegrating 4 mg PO Q8H PRN PRN (Reason: Nausea) Qty: 10 0RF dicyclomine 10 mg capsule 10 mg PO BID Qty: 10 0RF No Action atorvastatin 80 mg tablet 80 mg PO QHS budesonide-formoterol [Symbicort] 160-4.5 mcg/actuation HFA aerosol inhaler 2 puff inhalation BID albuterol sulfate 90 mcg/actuation HFA aerosol inhaler 2 puff inhalation Q6H PRN (Reason: SOB) cholecalciferol (vitamin D3) 50 mcg (2,000 unit) capsule 50 mcg PO DAILY Qty: 90 3RF (DME) FreeStyle Sandra 14 Day Sensor Kit See Rx Instructions .Route Qty: 2 5RF Rx Instructions: As directed gabapentin 300 mg capsule 600 mg PO .COMPLEX Rx Instructions: 600 mg orally QID; lisinopril 40 mg tablet 40 mg PO DAILY insulin glargine 100 unit/mL (3 mL) insulin pen 25 unit SC BREAKFAST ipratropium-albuterol 0.5 mg-3 mg(2.5 mg base)/3 mL solution for nebulization 3 ml inhalation 4X/DAY PRN (Reason: sob) loratadine 10 mg tablet 10 mg PO DAILY acetaminophen 500 mg tablet 1,000 mg PO Q8H PRN (Reason: Pain) ondansetron 4 mg tablet,disintegrating 4 mg PO Q8H PRN PRN (Reason: Nausea) Qty: 10 0RF insulin lispro [Humalog KwikPen Insulin] 100 unit/mL insulin pen 10 unit subcut TIDWMEAL Qty: 15 3RF Protocol: 4. Sliding Scale Insulin High-Med Dosing Condition: 150-199 mg/dl = 2 units Condition: 200-259 mg/dl = 4 units Condition: 260-324 mg/dl = 6 units Condition: 325-374 mg/dl = 8 units Condition: 375-409 mg/dl = 10 units Condition: 410-449 mg/dl = 11 units Condition: Greater than 449 call physician Protocol Text: - Use for Total Daily Dose of Insulin 56-80 units - Patient who are insulin resistant or septic HIGH MEDIUM DOSING ALGORITHM (DME) pen needle, diabetic [BD Ultra-Fine Sissy Pen Needle] 32 gauge x 5/32 needle See Rx Instructions .ROUTE .MEDSUPPLY Qty: 150 3RF Rx Instructions: 5 times daily Primary Care Provider: Araceli Ramos NP Referrals: Araceli Ramos NP, [facility] [Primary Care Provider] - 3-5 Days Activity Restrictions/Additional Instructions: Please follow-up with your PCP, return for any worsening symptoms. Disposition Disposition: Home, Self Care Discharge Date/Time: 01/19/23 15:21
[2023-01-19 14:05] LABS: Absolute Lymphocyte Count 2.08 X10^3/uL (0.83-4.51); Absolute Neutrophil Count 6.4 X10^3/uL (2.0-7.7); Basophil# 0.03 X10^3/uL; Basophil% 0.3 % (0-1); Eosinophil# 0.12 X10^3/uL; Eosinophils% 1.3 % (0-5); Hematocrit 36.7 % (37-47); Hemoglobin 11.6 g/dL (12.0-15.0); Lymphocyte # 2.08 X10^3/ul (0.83-4.51); Lymphocyte % 22.6 % (19-41); Mean Corp Hgb Conc 31.6 g/dL (32-36); Mean Corpuscular Hgb 27.8 pg (27.0-32.0); Mean Platelet Vol. 11.3 fl (6.2-12.0); Monocyte% 6.5 % (0-10); NRBC Flagged by Analyzer 0 % (0-5); Neutrophil # 6.35 X10^3/uL (2.7-7.7); Platelet Count 311 K/mm3 (150-450); RBC Distribution Width CV 14.7 % (11.6-14.6); RBC Distribution Width SD 47.3 fl (35.1-43.9); Red Blood Count 4.17 M/mm3 (4.2-5.4); White Blood Count 9.2 K/mm3 (4.4-11.0)
[2023-01-19 14:21] LABS: ALB/GLOB Ratio 0.7 RATIO (0.9-2.4); AST(SGOT) 26 U/L (15-37); Alanine Aminotransfer ALT/SGPT 22 U/L (13-56); Alkaline Phosphatase 116 U/L (45-117); Anion Gap 8 (5-15); BUN 17 mg/dL (7-18); BUN/Creat Ratio 16.5 RATIO (10-20); Chloride 103 mmol/L (98-107); Creatinine, Serum 1.03 mg/dL (0.55-1.02); EST Glomerular Filtration Rate 59 mL/min (>60); Est Glom Filt Rate - Afr Amer 71 mL/min (>60); Globulin 4.1 g/dL (2.2-4.2); Glucose 254 mg/dL (74-106); Lipase 14 U/L (13-75); Potassium 4.4 mmol/L (3.5-5.1); Protein, Total 7.1 g/dL (6.4-8.2); Sodium Level 135 mmol/L (136-145)
[2023-01-19] MEDS: Mag Hydrox/Al Hydrox/Simeth 30 ML UDC PO (15:14)
[2023-01-19] MEDS: Dicyclomine 10 MG Capsule 20 MG PO (15:14)
== END 2023-01-19 15:21 | disposition home or self-care (01) ==
PROVIDERS: Physician Assistant; Emergency Provider Emergency Medicine; PCP Internal Medicine; Visit Provider Emergency Medicine
DX: R10.13 Epigastric pain (principal); J44.9 Chronic obstructive pulmonary disease, unspecified; E11.9 Type 2 diabetes mellitus without complications; Z79.4 Long term (current) use of insulin; I10 Essential (primary) hypertension; E78.00 Pure hypercholesterolemia, unspecified; J45.909 Unspecified asthma, uncomplicated; Z79.899 Other long term (current) drug therapy; Z79.51 Long term (current) use of inhaled steroids; F17.210 Nicotine dependence, cigarettes, uncomplicated
CPT/HCPCS: 80053; 83690; 85025; 99283; A4216

== ENCOUNTER → 2023-01-21 | Outpatient (CLI) | payer MEDICAID, SELFPAY ==
--- NOTE | 2023-01-21 12:55 | RAD_ITS ---
INDICATION: S/P REMOVAL LUMBAR HARDWARE EXAMINATION/TECHNIQUE: X-RAY - XR Spine Lumbar 2 or 3 Views COMPARISON: CT 10/24/2022. FINDINGS: VERTEBRAE: Interval removal of L4 and L5 posterior transpedicular fixation hardware. L4-5 disc spacer is unchanged. Laminectomy at L3 and L4. Chronic T12 and L4, L5 anterior compression deformity. No new fracture or compression deformity. Endplate degenerative change in the lower thoracic and mid to lower lumbar spine. Facet arthropathy throughout the lumbar spine most prominent at L4-5 and L5-S1. DISCS: Mild disc height loss at L3-4. L4-5 disc spacer remains in place as above. INCLUDED ABDOMEN: Included bowel gas pattern is non-obstructive. Aortic atherosclerosis. RAD/Lumbar Spine 2 or 3 Views IMPRESSION: Status post L4-L5 posterior transpedicular fixation hardware without significant change in lumbar spine alignment. Prior laminectomy at L3 and L4. Lumbar spondylosis as above. Electronically Signed: Joshua Moses MD at 1:53 EDT ,
== END | disposition home or self-care (01) ==
LOC: RAD 12:47
PROVIDERS: PCP Internal Medicine
DX: Z47.2 Encounter for removal of internal fixation device (principal)
CPT/HCPCS: 72100

== ENCOUNTER 2023-01-27 09:18 | Emergency (ER) | payer MEDICAID, SELFPAY ==
[2023-01-27 09:18] VITALS: BP 158/104; PULSE 99; RESP 18; TEMP 36.2; O2SAT 96; BMI 28.5
--- NOTE | 2023-01-27 10:14 | CT_ITS ---
HISTORY: Epigastric pain. TECHNIQUE: Helically acquired images were obtained of the abdomen and pelvis after the intravenous administration of 100 mL Isovue 300. Oral contrast also administered. A radiation dose optimization technique was used for this scan. 403 images. COMPARISON: 12/09/2022. FINDINGS: LOWER CHEST: Lung bases clear. BOWEL: Persistent gastric wall thickening. Bowel including appendix nondilated. Moderate stool in the colon. PERITONEUM: No significant ascites. LIVER: No enhancing mass. GALLBLADDER/BILIARY TREE: Gallbladder present. SPLEEN: Homogeneous and nonenlarged. PANCREAS: Atrophic. KIDNEYS: Subcentimeter right lower pole cyst. ADRENAL GLANDS: Unchanged mild bilateral nodularity. VESSELS: No abdominal aortic aneurysm. Atherosclerosis of the abdominal aorta. PELVIC ORGANS: Unremarkable. BONES: Chronic mild T12 compression fracture. L3-4 and L4-5 decompressive laminectomies. Removal of L4-5 posterior spinal fusion hardware with mild posterior postoperative fluid collection, trace air, and surrounding edema, narrowing the thecal sac. Chronic endplate changes of L3-4. L4-5 interbody fusion material with degenerative endplate change. CT/Abdomen/Pelvis WITH Contrast IMPRESSION: Persistent gastric wall thickening, possible gastritis. Consider correlation with direct visualization to exclude underlying lesion. L3-4 decompressive laminectomy and removal of L4-5 posterior spinal fusion hardware with small posterior postoperative fluid collection from seroma, hematoma, or even abscess. Electronically Signed: Inga Naik MD at 12:47 EDT ,
[2023-01-27 10:40] LABS: Bacteria 0 SEEN /hpf (None Seen); Mucous, Urine 0 SEEN /hpf (<or=2+); Red Blood Cells-Urine 0 SEEN /hpf (0-5); Squamous Epithelial Cells - UA 0 SEEN /hpf (5-10); White Blood Cells 0 SEEN /hpf (0-5)
[2023-01-27 10:49] LABS: Absolute Neutrophil Count 8.1 X10^3/uL (2.0-7.7); Basophil# 0.02 X10^3/uL; Basophil% 0.2 % (0-1); Eosinophil# 0.07 X10^3/uL; Eosinophils% 0.6 % (0-5); Hemoglobin 12.3 g/dL (12.0-15.0); Lymphocyte % 20.4 % (19-41); Mean Corp Hgb Conc 32.4 g/dL (32-36); Mean Corpuscular Hgb 27.8 pg (27.0-32.0); Mean Platelet Vol. 10.5 fl (6.2-12.0); Monocyte% 3.7 % (0-10); NRBC Flagged by Analyzer 0 % (0-5); Neutrophil # 8.09 X10^3/uL (2.7-7.7); Neutrophil % 74.9 % (47-70); Platelet Count 380 K/mm3 (150-450); RBC Distribution Width CV 14.4 % (11.6-14.6); RBC Distribution Width SD 45.8 fl (35.1-43.9); Red Blood Count 4.42 M/mm3 (4.2-5.4); White Blood Count 10.8 K/mm3 (4.4-11.0)
[2023-01-27 10:51] LABS: Color, Urine Yellow (Yellow); Glucose, Dipstick Normal (Normal); Nitrite-Dipstick Negative (Negative); Urine Bilirubin Dipstick Negative (Negative); Urine Clarity Clear (Clear); Urine Urobilinogen Normal (Normal)
[2023-01-27 10:55] LABS: Ketone-Dipstick Negative (Negative); Leukocyte Esterase-Dipstick Negative /ul (Negative); Occult Blood-Urine Negative /ul (Negative); Protein-Dipstick 100 mg/dl (Negative)
[2023-01-27 11:04] LABS: AST(SGOT) 22 U/L (15-37); Alanine Aminotransfer ALT/SGPT 21 U/L (13-56); Albumin, Serum 3.1 g/dL (3.2-5.0); Alkaline Phosphatase 128 U/L (45-117); Anion Gap 6 (5-15); BUN 21 mg/dL (7-18); BUN/Creat Ratio 21.2 RATIO (10-20); Calcium,Total 9.9 mg/dL (8.5-10.1); Chloride 106 mmol/L (98-107); Creatinine, Serum 0.99 mg/dL (0.55-1.02); EST Glomerular Filtration Rate 61 mL/min (>60); Est Glom Filt Rate - Afr Amer 74 mL/min (>60); Estimated Creatinine Clearance 44.49 ml/min; Globulin 4.2 g/dL (2.2-4.2); Glucose 195 mg/dL (74-106); Lipase 16 U/L (13-75); Potassium 4.2 mmol/L (3.5-5.1); Protein, Total 7.3 g/dL (6.4-8.2); Sodium Level 136 mmol/L (136-145)
[2023-01-27] MEDS: Ondansetron 4 MG/2 ML Vial IV (11:09)
[2023-01-27] MEDS: 0.9% Normal Saline 1,000 ML 150 ML IV (11:09)
[2023-01-27] MEDS: Morphine 4 MG/ML Syringe IV (11:09)
[2023-01-27 12:27] VITALS: BP 167/62; PULSE 86; RESP 16; O2SAT 98
--- NOTE | 2023-01-27 13:17 | EDS_ITS ---
HPI History of Present Illness Chief Complaint: Abd Pain Informant: patient Onset/Context/Timing Onset: Weeks Context: Gradual Onset Timing: Waxes and wanes Narrative Narrative: Patient presents secondary to epigastric abdominal pain. This has been an intermittent issue for this patient and she has been diagnosed in the past with thickened gastric wall. She states she is scheduled to see a GI doctor on February 18. She is currently on Carafate as well as omeprazole and famotidine. She has not had vomiting. No fever. [facility] Medical History Anxiety Arthritis Asthma Back pain Back pain Cardiology follow-up encounter Chronic neck and back pain COPD (chronic obstructive pulmonary disease) Coronary artery calcification seen on CAT scan CPAP (continuous positive airway pressure) dependence Depression Dietary restriction Difficulty balancing Gastric reflux High cholesterol History of arthritis History of echocardiogram History of edema History of pain when walking History of renal disease History of stomach ulcers History of stress test Hypertension Injury of head and neck Insulin dependent diabetes mellitus Knee pain Lumbar stenosis Obesity Osteomyelitis Shortness of breath on exertion Shoulder pain Sleep apnea Smoker Spinal fusion failure Strain of muscle, fascia and tendon of pelvis, initial encounter Strain of right hip and thigh Strain of right inguinal region Strain of unspecified muscles, fascia and tendons at thigh level, right thigh, initial encounter Syncope Thyroid disease Type 2 diabetes mellitus Walker as ambulation aid Wears glasses Home Medications insulin glargine 100 unit/mL (3 mL) subcutaneous pen 25 unit subcut BREAKFAST DIABETES 11/03/20 [History Last Taken 06/14/22] albuterol sulfate 90 mcg/actuation aerosol inhaler 2 puff inhalation Q6H PRN SOB 06/14/21 [History Last Taken 06/14/22] atorvastatin 80 mg tablet 80 mg PO QHS CHOLESTEROL 06/14/21 [History Last Taken 06/13/22] budesonide-formoterol HFA 160 mcg-4.5 mcg/actuation aerosol inhaler (Symbicort) 2 puff inhalation BID ASTHMA 06/14/21 [History Last Taken 12/25/21] ipratropium 0.5 mg-albuterol 3 mg (2.5 mg base)/3 mL nebulization soln 3 ml inhalation 4X/DAY PRN sob 11/27/21 [History Last Taken 11/25/21] loratadine 10 mg tablet 10 mg PO DAILY allergies 11/27/21 [History Last Taken 02/21/22] acetaminophen 500 mg tablet 1,000 mg PO Q8H PRN Pain 02/22/22 [History Last Taken 06/14/22] cholecalciferol (vitamin D3) 50 mcg (2,000 unit) capsule 50 mcg PO DAILY #90 caps 08/15/22 [Rx Last Taken Unknown] flash glucose sensor (FreeStyle Sandra 14 Day Sensor kit) #2 ea 08/15/22 [Rx Last Taken Unknown] insulin lispro 100 unit/mL subcutaneous pen (Humalog KwikPen (U-100) Insulin) 10 unit subcut TIDWMEAL DM #15 mL 09/03/22 [Rx Last Taken Unknown] pen needle, diabetic 32 gauge x 5/32 (BD Ultra-Fine Sissy Pen Needle) #150 ea 09/03/22 [Rx Last Taken Unknown] lisinopril 40 mg tablet 40 mg PO DAILY 10/10/22 [History Last Taken Unknown] ondansetron 4 mg disintegrating tablet 4 mg PO Q8H PRN PRN Nausea #10 tabs 10/13/22 [Rx Last Taken Unknown] gabapentin 300 mg capsule 600 mg PO .COMPLEX 11/15/22 [History Last Taken Unknown] dicyclomine 10 mg capsule 10 mg PO BID #10 caps 01/19/23 [Rx Last Taken Unknown] ondansetron 4 mg disintegrating tablet 4 mg PO Q8H PRN PRN Nausea #10 tabs 01/19/23 [Rx Last Taken Unknown] Allergy/AdvReac Type Severity Reaction Status Date / Time duloxetine [From Cymbalta] Allergy Unknown Verified 01/19/23 13:27 pregabalin [From Lyrica] Allergy Unknown Verified 01/19/23 13:27 Penicillins AdvReac Mild leaves a Verified 01/19/23 13:27 bad taste in her mouth. acetaminophen AdvReac Vomiting Verified 01/19/23 13:27 aspirin AdvReac Upset Verified 01/19/23 13:27 Stomach NSAIDS (Non-Steroidal AdvReac Upset Verified 01/19/23 13:27 Anti-Inflamma Stomach Family History Father Cancer Unclear type. Mother Lung cancer Concurrent tobacco use history. Surgical History History of ankle surgery History of History of carpal tunnel release History of hysterectomy History of open reduction and internal fixation (ORIF) procedure History of partial thyroidectomy Social History household members: none Smoking Status: Current every day smoker tobacco type: cigarettes alcohol intake: never substance use type: does not use ROS ROS ED Constitutional Constitutional ED: Denies chills or fever(s) Eyes Eyes: Denies discharge from eye(s) ENT ENT ED: Denies discharge from eye(s), rhinorrhea or sore throat Cardiovascular Cardiovascular: Denies chest pain or palpitations Respiratory/Chest Respiratory/Chest: Denies cough or dyspnea Gastrointestinal Gastrointestinal: Reports abdominal pain; Denies diarrhea, nausea or vomiting Genitourinary Genitourinary ED: Denies dysuria Musculoskeletal Musculoskeletal: Denies back pain or extremity pain Integumentary Denies Abrasions or rash Neurologic Neurologic: Denies headache(s) or weakness Psychiatric Psychiatric: Denies anxiety or depression Allergic/Immunologic Allergic/Immunologic ED: Denies lip swelling or urticaria EXAM Physical Exam Const Vital Signs: 01/27/23 09:18 01/27/23 12:27 Temperature 97.2 F L Temperature Source Temporal Pulse Rate 99 86 Respiratory Rate 18 16 Blood Pressure 158/104 H 167/62 H Blood Pressure Mean 122 97 Pulse Ox 96 98 Oxygen Delivery Method Room Air Room Air Positive well nourished and well developed General Appearance ED: well developed HEENT Reports normocephalic and head/scalp atraumatic Eyes PERRL and EOMs intact bilaterally Neck supple Chest Wall inspection of chest normal and palpation of chest normal Resp normal respiratory effort and clear to auscultation bilaterally Cardio regular rate and regular rhythm GI GI Narrative: Abdomen soft with epigastric tenderness palpation. Active bowel sounds are noted throughout. Palpation: soft Extremity normal to inspection Neuro oriented x3 and no sensory deficits noted Sensorium / Orientation: alert Motor Exam: strength 5/5 throughout Psych Mood & Affect: anxious Skin no rashes or lesions noted MDM MDM MDM Narrative Medical decision making narrative: Patient given single dose of morphine and Zofran along with IV fluids while awaiting work-up. Labwork obtained to evaluate for leukocytosis, anemia, and electrolyte derangement. CT scan abdomen pelvis with p.o. and IV contrast obtained. History & Record Review Discussion w/independent historian: Patient Additional record(s) reviewed:: Prior ED visit and Prior labs Lab Data Attestation: I reviewed the patient's lab results. Labs: Laboratory Results - last 24 hr 01/27/23 01/27/23 01/27/23 10:35 10:35 10:35 WBC 10.8 RBC 4.42 Hgb 12.3 Hct 38.0 MCV 86.0 MCH 27.8 MCHC 32.4 RDW Std Deviation 45.8 H RDW Coeff of Yudelka 14.4 Plt Count 380 MPV 10.5 Immature Gran % (Auto) 0.200 Neut % (Auto) 74.9 H Lymph % (Auto) 20.4 [place] % (Auto) 3.7 Eos % (Auto) 0.6 Baso % (Auto) 0.2 Absolute Neuts (auto) 8.1 H Absolute Lymphs (auto) 2.20 Nucleated RBC % 0 Sodium 136 Potassium 4.2 Chloride 106 Carbon Dioxide 24.0 Anion Gap 6 BUN 21 H Creatinine 0.99 Estim Creat Clear Calc 44.49 Est GFR (MDRD) Af Amer 74 Est GFR (MDRD) Non-Af 61 BUN/Creatinine Ratio 21.2 H Glucose 195 H Calcium 9.9 Total Bilirubin 0.40 Direct Bilirubin 0.10 AST 22 ALT 21 Alkaline Phosphatase 128 H Total Protein 7.3 Albumin 3.1 L Globulin 4.2 Lipase 16 Urine Color Yellow Urine Clarity Clear Urine pH 7.0 Ur Specific [place] 1.010 Urine Protein 100 H Urine Glucose (UA) Normal Urine Ketones Negative Urine Occult Blood Negative Urine Nitrite Negative Urine Bilirubin Negative Urine Urobilinogen Normal Ur Leukocyte Esterase Negative Urine RBC 0 SEEN Urine WBC 0 SEEN Ur Squamous Epith Cells 0 SEEN Urine Bacteria 0 SEEN Urine Mucus 0 SEEN Radiography Diagnostic Testing: Clinical Impression(s) from Imaging Studies Abdomen/Pelvis CT 01/27/23 10:14 IMPRESSION: Persistent gastric wall thickening, possible gastritis. Consider correlation with direct visualization to exclude underlying lesion. L3-4 decompressive laminectomy and removal of L4-5 posterior spinal fusion hardware with small posterior postoperative fluid collection from seroma, hematoma, or even abscess. Electronically Signed: Inga Naik MD at 12:47 EDT , Treatment and Re-Evaluation :: CBC was normal white count and differential. Chemistry studies significant only for slightly elevated BUN at 21. Glucose is 195. LFTs remarkable only for an alk phos of 128. Lipase is normal at 16. Urinalysis is normal. CT scan reveals persistent gastric wall thickening, possible gastritis. Postoperative lumbar spine changes are noted with small fluid collection. Patient is requesting more pain medication. I gave her a GI cocktail. I do not feel that opioid treatment is appropriate. She is already on Carafate as well as 2 different acid reducers. She needs to follow-up with GI for upper scope. At this time she has normal blood work and I see no evidence of an acute infection or need for antibiotics at this point. Discharge Plan Triage Chief Complaint: Abd Pain ED Provider: Marcy Kidd Dx/Rx/DC Orders Clinical Impression: Abdominal pain Instructions: ED Abdominal Pain Unkn Cause Fem, ED Gastritis (Adult) Prescriptions: No Action atorvastatin 80 mg tablet 80 mg PO QHS budesonide-formoterol [Symbicort] 160-4.5 mcg/actuation HFA aerosol inhaler 2 puff inhalation BID albuterol sulfate 90 mcg/actuation HFA aerosol inhaler 2 puff inhalation Q6H PRN (Reason: SOB) cholecalciferol (vitamin D3) 50 mcg (2,000 unit) capsule 50 mcg PO DAILY Qty: 90 3RF (DME) FreeStyle Sandra 14 Day Sensor Kit See Rx Instructions .Route Qty: 2 5RF Rx Instructions: As directed gabapentin 300 mg capsule 600 mg PO .COMPLEX Rx Instructions: 600 mg orally QID; lisinopril 40 mg tablet 40 mg PO DAILY insulin glargine 100 unit/mL (3 mL) insulin pen 25 unit SC BREAKFAST ipratropium-albuterol 0.5 mg-3 mg(2.5 mg base)/3 mL solution for nebulization 3 ml inhalation 4X/DAY PRN (Reason: sob) loratadine 10 mg tablet 10 mg PO DAILY acetaminophen 500 mg tablet 1,000 mg PO Q8H PRN (Reason: Pain) ondansetron 4 mg tablet,disintegrating 4 mg PO Q8H PRN PRN (Reason: Nausea) Qty: 10 0RF ondansetron 4 mg tablet,disintegrating 4 mg PO Q8H PRN PRN (Reason: Nausea) Qty: 10 0RF dicyclomine 10 mg capsule 10 mg PO BID Qty: 10 0RF insulin lispro [Humalog KwikPen Insulin] 100 unit/mL insulin pen 10 unit subcut TIDWMEAL Qty: 15 3RF Protocol: 4. Sliding Scale Insulin High-Med Dosing Condition: 150-199 mg/dl = 2 units Condition: 200-259 mg/dl = 4 units Condition: 260-324 mg/dl = 6 units Condition: 325-374 mg/dl = 8 units Condition: 375-409 mg/dl = 10 units Condition: 410-449 mg/dl = 11 units Condition: Greater than 449 call physician Protocol Text: - Use for Total Daily Dose of Insulin 56-80 units - Patient who are insulin resistant or septic HIGH MEDIUM DOSING ALGORITHM (DME) pen needle, diabetic [BD Ultra-Fine Sissy Pen Needle] 32 gauge x 5/32 needle See Rx Instructions .ROUTE .MEDSUPPLY Qty: 150 3RF Rx Instructions: 5 times daily Primary Care Provider: Araceli Ramos NP Referrals: Araceli Ramos NP, [facility] [employer]CHITECT-C [Primary Care Provider] - Activity Restrictions/Additional Instructions: Follow-up with GI as scheduled. Disposition Disposition: Home, Self Care Discharge Date/Time: 01/27/23 13:51
--- NOTE | 2023-01-27 13:44 | NURSING ---
pt waiting on dc and while waiting pt took own iv out. pt up walking and pacing in halls and aggitated that still here and they aint done nothin for my pain any waiting on meds from pharm as floor out of stock
[2023-01-27] MEDS: Mag Hydrox/Al Hydrox/Simeth 30 ML UDC PO (13:46)
== END 2023-01-27 13:51 | disposition home or self-care (01) ==
PROVIDERS: Emergency Provider Emergency Medicine; PCP Internal Medicine; Visit Provider Emergency Medicine
DX: R10.9 Unspecified abdominal pain (principal); J44.9 Chronic obstructive pulmonary disease, unspecified; E11.9 Type 2 diabetes mellitus without complications; I10 Essential (primary) hypertension; I25.10 Atherosclerotic heart disease of native coronary artery without angina pectoris; E78.00 Pure hypercholesterolemia, unspecified
CPT/HCPCS: 74177; 80048; 80076; 81001; 83690; 85025; 96361; 96374; 96375; 99284; Q9967; A4216; J2405

== ENCOUNTER 2023-01-31 09:49 | Emergency (ER) | payer MEDICAID, SELFPAY ==
[2023-01-31 09:50] VITALS: BP 159/111; PULSE 90; RESP 14; TEMP 36.2; O2SAT 100; BMI 28.3
--- NOTE | 2023-01-31 10:48 | EDS_ITS ---
HPI History of Present Illness Chief Complaint: Back Narrative Narrative: 57-year-old female past medical history of chronic back pain, chronic epigastric pain has been seen multiple times in the emergency department for the same., Today she presents with the same back pain mainly in the middle portion of her back that she has had. She states that her surgeon is no longer willing to write her chronic pain medications and that she is trying to get in to see pain management. There is no new symptoms, no fevers or chills., This is the same pain that she has had since her surgery remotely. She states that she wants a pain shot. [facility] Medical History Anxiety Arthritis Asthma Back pain Back pain Cardiology follow-up encounter Chronic neck and back pain COPD (chronic obstructive pulmonary disease) Coronary artery calcification seen on CAT scan CPAP (continuous positive airway pressure) dependence Depression Dietary restriction Difficulty balancing Gastric reflux High cholesterol History of arthritis History of echocardiogram History of edema History of pain when walking History of renal disease History of stomach ulcers History of stress test Hypertension Injury of head and neck Insulin dependent diabetes mellitus Knee pain Lumbar stenosis Obesity Osteomyelitis Shortness of breath on exertion Shoulder pain Sleep apnea Smoker Spinal fusion failure Strain of muscle, fascia and tendon of pelvis, initial encounter Strain of right hip and thigh Strain of right inguinal region Strain of unspecified muscles, fascia and tendons at thigh level, right thigh, initial encounter Syncope Thyroid disease Type 2 diabetes mellitus Walker as ambulation aid Wears glasses Home Medications insulin glargine 100 unit/mL (3 mL) subcutaneous pen 25 unit subcut BREAKFAST DIABETES 11/03/20 [History Last Taken 06/14/22] albuterol sulfate 90 mcg/actuation aerosol inhaler 2 puff inhalation Q6H PRN SOB 06/14/21 [History Last Taken 06/14/22] atorvastatin 80 mg tablet 80 mg PO QHS CHOLESTEROL 06/14/21 [History Last Taken 06/13/22] budesonide-formoterol HFA 160 mcg-4.5 mcg/actuation aerosol inhaler (Symbicort) 2 puff inhalation BID ASTHMA 06/14/21 [History Last Taken 12/25/21] ipratropium 0.5 mg-albuterol 3 mg (2.5 mg base)/3 mL nebulization soln 3 ml inhalation 4X/DAY PRN sob 11/27/21 [History Last Taken 11/25/21] loratadine 10 mg tablet 10 mg PO DAILY allergies 11/27/21 [History Last Taken 02/21/22] acetaminophen 500 mg tablet 1,000 mg PO Q8H PRN Pain 02/22/22 [History Last Taken 06/14/22] cholecalciferol (vitamin D3) 50 mcg (2,000 unit) capsule 50 mcg PO DAILY #90 caps 08/15/22 [Rx Last Taken Unknown] insulin lispro 100 unit/mL subcutaneous pen (Humalog KwikPen (U-100) Insulin) 10 unit subcut TIDWMEAL DM #15 mL 09/03/22 [Rx Last Taken Unknown] pen needle, diabetic 32 gauge x 5/32 (BD Ultra-Fine Sissy Pen Needle) #150 ea 09/03/22 [Rx Last Taken Unknown] lisinopril 40 mg tablet 40 mg PO DAILY 10/10/22 [History Last Taken Unknown] ondansetron 4 mg disintegrating tablet 4 mg PO Q8H PRN PRN Nausea #10 tabs 10/13/22 [Rx Last Taken Unknown] gabapentin 300 mg capsule 600 mg PO .COMPLEX 11/15/22 [History Last Taken Unknown] dicyclomine 10 mg capsule 10 mg PO BID #10 caps 01/19/23 [Rx Last Taken Unknown] ondansetron 4 mg disintegrating tablet 4 mg PO Q8H PRN PRN Nausea #10 tabs 01/19/23 [Rx Last Taken Unknown] flash glucose sensor (FreeStyle Sandra 14 Day Sensor kit) #2 ea 01/29/23 [Rx Last Taken Unknown] Allergy/AdvReac Type Severity Reaction Status Date / Time duloxetine [From Cymbalta] Allergy Unknown Verified 01/31/23 09:51 pregabalin [From Lyrica] Allergy Unknown Verified 01/31/23 09:51 Penicillins AdvReac Mild leaves a Verified 01/31/23 09:51 bad taste in her mouth. acetaminophen AdvReac Vomiting Verified 01/31/23 09:51 aspirin AdvReac Upset Verified 01/31/23 09:51 Stomach NSAIDS (Non-Steroidal AdvReac Upset Verified 01/31/23 09:51 Anti-Inflamma Stomach Family History Father Cancer Unclear type. Mother Lung cancer Concurrent tobacco use history. Surgical History History of ankle surgery History of History of carpal tunnel release History of hysterectomy History of open reduction and internal fixation (ORIF) procedure History of partial thyroidectomy Social History household members: none Smoking Status: Current every day smoker tobacco type: cigarettes alcohol intake: never substance use type: does not use ROS ROS ED ROS Narrative Constitutional: No fever, no chills. HEENT: No sore throat. No neck pain. No loss of vision. No rhinorrhea. Cardiovascular: No chest pain. No palpitations. No pedal edema. Respiratory: No cough, no shortness of breath. Abdominal: No abdominal pain. No nausea. No vomiting. Genitourinary: No dysuria. No hematuria. Musculoskeletal: No myalgias. No arthralgias. Mid to low back pain. (Chronic). Neurologic: No headaches. No dizziness. No lightheadedness. Skin: No rash. No change in color. Psychiatric: No depression. No anxiety. EXAM Physical Exam Narrative Exam Narrative: Afebrile. Vital signs noted. HEENT: Normocephalic. Atraumatic. PERRL, EOMI. Neck soft and supple. No point tenderness or step off. Cardiovascular: Regular rate and rhythm. No murmurs, rubs, or gallops appreciated. Respiratory: No tachypnea. Lungs clear to auscultation bilaterally. Gastrointestinal: Abdomen soft, nontender, with normoactive bowel sounds. No rebound or guarding. Neurological: Awake. Alert. Nonfocal, nonlateralizing. Skin: No rash. Normal color. No pallor. Musculoskeletal: No pedal edema. Full range of motion extremities. Psychiatric: Intermittently tearful on examination. Const Vital Signs: 01/31/23 09:50 Temperature 97.2 F L Temperature Source Temporal Pulse Rate 90 Respiratory Rate 14 Blood Pressure 159/111 H Blood Pressure Mean 127 Pulse Ox 100 Oxygen Delivery Method Room Air MDM MDM MDM Narrative Medical decision making narrative: I reviewed the patient's prior ED visits. Patient is well-known to the emergency department, and I have seen her in the past as well. Within the last month, she has taken an ambulance to the emergency department, requesting narcotic pain medication. It had been explained to her multiple times that narcotic pain medication and intramuscular injections are not indicated for her chronic pain. She most recently had a visit 4 days ago where she has had work- up for her epigastric pain, and she did receive morphine. Initially, she was offered Norflex, but the RN stated that she declined because she had told her I am already on Norflex, and I want a pain shot. or something to that effect. I am reluctant to give her NSAIDs as she has history of epigastric pain and reported gastric ulcers. She lists acetaminophen as an intolerance because it makes her vomit. Regardless, I do not feel that narcotic pain medication is indicated today. She had stated that her surgeon was unwilling to write her pain medications, and she was told that the emergency department would not be able to write her prescription for narcotics either. She later agreed to receiving Norflex. I feel she can be discharged safely home with follow-up to pain management. I do not feel that she requires observation or any laboratory work or imaging currently. Return instructions to the emergency department were reviewed. Her medical screening examination is negative for any emergent process. Disposition is discharged home in stable condition. Discharge Plan Triage Chief Complaint: Back ED Provider: Song Mercedes Dx/Rx/DC Orders Clinical Impression: Chronic back pain Instructions: ED Back Pain (Acute or Chronic), ED Chronic Pain Prescriptions: No Action atorvastatin 80 mg tablet 80 mg PO QHS budesonide-formoterol [Symbicort] 160-4.5 mcg/actuation HFA aerosol inhaler 2 puff inhalation BID albuterol sulfate 90 mcg/actuation HFA aerosol inhaler 2 puff inhalation Q6H PRN (Reason: SOB) cholecalciferol (vitamin D3) 50 mcg (2,000 unit) capsule 50 mcg PO DAILY Qty: 90 3RF gabapentin 300 mg capsule 600 mg PO .COMPLEX Rx Instructions: 600 mg orally QID; lisinopril 40 mg tablet 40 mg PO DAILY insulin glargine 100 unit/mL (3 mL) insulin pen 25 unit SC BREAKFAST ipratropium-albuterol 0.5 mg-3 mg(2.5 mg base)/3 mL solution for nebulization 3 ml inhalation 4X/DAY PRN (Reason: sob) loratadine 10 mg tablet 10 mg PO DAILY acetaminophen 500 mg tablet 1,000 mg PO Q8H PRN (Reason: Pain) ondansetron 4 mg tablet,disintegrating 4 mg PO Q8H PRN PRN (Reason: Nausea) Qty: 10 0RF ondansetron 4 mg tablet,disintegrating 4 mg PO Q8H PRN PRN (Reason: Nausea) Qty: 10 0RF dicyclomine 10 mg capsule 10 mg PO BID Qty: 10 0RF insulin lispro [Humalog KwikPen Insulin] 100 unit/mL insulin pen 10 unit subcut TIDWMEAL Qty: 15 3RF Protocol: 4. Sliding Scale Insulin High-Med Dosing Condition: 150-199 mg/dl = 2 units Condition: 200-259 mg/dl = 4 units Condition: 260-324 mg/dl = 6 units Condition: 325-374 mg/dl = 8 units Condition: 375-409 mg/dl = 10 units Condition: 410-449 mg/dl = 11 units Condition: Greater than 449 call physician Protocol Text: - Use for Total Daily Dose of Insulin 56-80 units - Patient who are insulin resistant or septic HIGH MEDIUM DOSING ALGORITHM (DME) pen needle, diabetic [BD Ultra-Fine Sissy Pen Needle] 32 gauge x 5/32 needle See Rx Instructions .ROUTE .MEDSUPPLY Qty: 150 3RF Rx Instructions: 5 times daily (DME) FreeStyle Sandra 14 Day Sensor Kit See Rx Instructions .Route Qty: 2 5RF Rx Instructions: As directed Primary Care Provider: Araceli Ramos NP Referrals: Araceli Ramos NP, RIVETER-C [Primary Care Provider] - Activity Restrictions/Additional Instructions: Follow-up with pain management as soon as possible. Disposition Disposition: Home, Self Care
[2023-01-31] MEDS: Orphenadrine 60 MG/2 ML Ampul IM (10:52)
--- NOTE | 2023-01-31 11:05 | ED.RN ---
HIS RN INITIALLY OFFERED PT NORFLEX SHOT. PT REFUSED IM INJECTION. PT REQUESTING NARCOTIC PAIN INJECTION.THIS RN IN TO EXPLAIN TO PT THAT NARCOTIC MEDICATION IS NOT AN OPTION.PT ANGRY,CRYING,SCREAMING THAT YOU DON'T UNDERSTAND. THIS RN ATTEMPTED TO ASSURE PT THAT WE DO UNDERSTAND BUT THAT NARCOTIC MEDICATION IS AGAIN NOT AN OPTION.PT DEMANDING TO SEE ANOTHER PHYSICIAN. PT AWARE OTHER PHYSICIAN IS ALSO NOT WILLING TO ORDER NARCOTIC INJECTION. PT FINALLY AGREES TO NORFLEX. PT DOES ADMIT THAT SHE HAD OXY PRESCRIBED AND WAS DOUBLING HER DOSE AND RAN OUT EARLY. PT AWARE THAT THAT NEGATIVELY IMPACTS OTHERS PERCEPTION OF PT. PT ADVISED TO CONTINUE TO WORK TO FOLLOW UP WITH PAIN MANAGEMENT. PT ANGRY. [employer] [employer]
== END 2023-01-31 11:13 | disposition home or self-care (01) ==
PROVIDERS: Emergency Provider Emergency Medicine; PCP Internal Medicine; Visit Provider Emergency Medicine
DX: G89.29 Other chronic pain (principal); J44.9 Chronic obstructive pulmonary disease, unspecified; E11.9 Type 2 diabetes mellitus without complications; Z79.4 Long term (current) use of insulin; E78.00 Pure hypercholesterolemia, unspecified; M54.9 Dorsalgia, unspecified; I10 Essential (primary) hypertension; Z99.89 Dependence on other enabling machines and devices; Z79.899 Other long term (current) drug therapy; Z79.51 Long term (current) use of inhaled steroids; Z90.710 Acquired absence of both cervix and uterus; F17.210 Nicotine dependence, cigarettes, uncomplicated
CPT/HCPCS: 99282

== ENCOUNTER 2023-02-01 03:00 | Emergency (ER) | payer MEDICAID, SELFPAY ==
[2023-02-01 03:01] VITALS: BP 217/148; PULSE 89; RESP 22; TEMP 36.4; O2SAT 98; BMI 31.8
--- NOTE | 2023-02-01 03:36 | EX.ED.DYSGE1 ---
HPI History of Present Illness Chief Complaint: Back Informant: patient and EMS Narrative Narrative: Patient is a 57-year-old female with past medical history of chronic back pain which she states began after a previous back surgery which led to hardware infection. She states that she had repeat surgery roughly 6 weeks ago. She reports that she is no longer being prescribed opiate pain medication by her surgeon and states that she is scheduled to see pain management soon. She states that there is been no recent trauma and she denies any loss of bowel or bladder control or IV drug use. She states that she is taking her gabapentin as well as Norflex and has been having only minimal symptom improvement. She states that she is having a hard time functioning secondary to the pain and therefore presents at this time for improved pain control for which she is requesting an IM narcotic injection [facility] Medical History Anxiety Arthritis Asthma Back pain Back pain Cardiology follow-up encounter Chronic neck and back pain COPD (chronic obstructive pulmonary disease) Coronary artery calcification seen on CAT scan CPAP (continuous positive airway pressure) dependence Depression Dietary restriction Difficulty balancing Gastric reflux High cholesterol History of arthritis History of echocardiogram History of edema History of pain when walking History of renal disease History of stomach ulcers History of stress test Hypertension Injury of head and neck Insulin dependent diabetes mellitus Knee pain Lumbar stenosis Obesity Osteomyelitis Shortness of breath on exertion Shoulder pain Sleep apnea Smoker Spinal fusion failure Strain of muscle, fascia and tendon of pelvis, initial encounter Strain of right hip and thigh Strain of right inguinal region Strain of unspecified muscles, fascia and tendons at thigh level, right thigh, initial encounter Syncope Thyroid disease Type 2 diabetes mellitus Walker as ambulation aid Wears glasses Home Medications insulin glargine 100 unit/mL (3 mL) subcutaneous pen 25 unit subcut BREAKFAST DIABETES 11/03/20 [History Last Taken 06/14/22] albuterol sulfate 90 mcg/actuation aerosol inhaler 2 puff inhalation Q6H PRN SOB 06/14/21 [History Last Taken 06/14/22] atorvastatin 80 mg tablet 80 mg PO QHS CHOLESTEROL 06/14/21 [History Last Taken 06/13/22] budesonide-formoterol HFA 160 mcg-4.5 mcg/actuation aerosol inhaler (Symbicort) 2 puff inhalation BID ASTHMA 06/14/21 [History Last Taken 12/25/21] ipratropium 0.5 mg-albuterol 3 mg (2.5 mg base)/3 mL nebulization soln 3 ml inhalation 4X/DAY PRN sob 11/27/21 [History Last Taken 11/25/21] loratadine 10 mg tablet 10 mg PO DAILY allergies 11/27/21 [History Last Taken 02/21/22] acetaminophen 500 mg tablet 1,000 mg PO Q8H PRN Pain 02/22/22 [History Last Taken 06/14/22] cholecalciferol (vitamin D3) 50 mcg (2,000 unit) capsule 50 mcg PO DAILY #90 caps 08/15/22 [Rx Last Taken Unknown] insulin lispro 100 unit/mL subcutaneous pen (Humalog KwikPen (U-100) Insulin) 10 unit subcut TIDWMEAL DM #15 mL 09/03/22 [Rx Last Taken Unknown] pen needle, diabetic 32 gauge x 5/32 (BD Ultra-Fine Sissy Pen Needle) #150 ea 09/03/22 [Rx Last Taken Unknown] lisinopril 40 mg tablet 40 mg PO DAILY 10/10/22 [History Last Taken Unknown] ondansetron 4 mg disintegrating tablet 4 mg PO Q8H PRN PRN Nausea #10 tabs 10/13/22 [Rx Last Taken Unknown] gabapentin 300 mg capsule 600 mg PO .COMPLEX 11/15/22 [History Last Taken Unknown] dicyclomine 10 mg capsule 10 mg PO BID #10 caps 01/19/23 [Rx Last Taken Unknown] ondansetron 4 mg disintegrating tablet 4 mg PO Q8H PRN PRN Nausea #10 tabs 01/19/23 [Rx Last Taken Unknown] flash glucose sensor (FreeStyle Sandra 14 Day Sensor kit) #2 ea 01/29/23 [Rx Last Taken Unknown] Allergy/AdvReac Type Severity Reaction Status Date / Time duloxetine [From Cymbalta] Allergy Unknown Verified 02/01/23 03:04 pregabalin [From Lyrica] Allergy Unknown Verified 02/01/23 03:04 Penicillins AdvReac Mild leaves a Verified 02/01/23 03:04 bad taste in her mouth. acetaminophen AdvReac Vomiting Verified 02/01/23 03:04 aspirin AdvReac Upset Verified 02/01/23 03:04 Stomach NSAIDS (Non-Steroidal AdvReac Upset Verified 02/01/23 03:04 Anti-Inflamma Stomach Family History Father Cancer Unclear type. Mother Lung cancer Concurrent tobacco use history. Surgical History History of ankle surgery History of History of carpal tunnel release History of hysterectomy History of open reduction and internal fixation (ORIF) procedure History of partial thyroidectomy Social History household members: none Smoking Status: Current every day smoker tobacco type: cigarettes alcohol intake: never substance use type: does not use ROS ROS ED Constitutional Constitutional ED: Denies chills or fever(s) ENT ENT ED: Denies sore throat Cardiovascular Cardiovascular: Denies chest pain Respiratory/Chest Respiratory/Chest: Denies cough or dyspnea Gastrointestinal Gastrointestinal: Reports abdominal pain; Denies diarrhea, nausea or vomiting Genitourinary Genitourinary ED: Denies dysuria or hematuria Musculoskeletal Musculoskeletal: Reports back pain Integumentary Denies rash Neurologic Neurologic: Denies headache(s) or paresthesias Hematologic/Lymphatic Hematologic/Lymphatic: Denies easy bleeding or easy bruising EXAM Physical Exam Const Vital Signs: 02/01/23 03:01 02/01/23 05:11 Temperature 97.6 F L Temperature Source Temporal Pulse Rate 89 98 Respiratory Rate 22 H 17 Blood Pressure 217/148 H 204/126 H Blood Pressure Mean 171 Pulse Ox 98 100 Oxygen Delivery Method Room Air Positive well nourished and well developed General Appearance ED: well developed Eyes PERRL and EOMs intact bilaterally Neck supple Resp normal respiratory effort and clear to auscultation bilaterally Cardio regular rate and regular rhythm Rate: other Other Details: Radial pulses are plus 2 out of 4 bilaterally are equal and symmetric GI non-distended GI Narrative: Abdomen is soft and nondistended with hypo-active bowel sounds. There is mild pain with palpation in the midepigastric region without voluntary guarding or rigidity. No pulsatile mass Auscultation: hypoactive bowel sounds Palpation: soft Back/Spine Back/Spine Narrative: No bony deformity or step-off of the thoracic or lumbar spine. There is diffuse pain on palpation of the low back region. There are postsurgical scars present that are clean dry and intact without secondary changes to suggest infection. No saddle anesthesia. Negative straight leg raise. No clonus or Babinski. Patellar reflexes are plus 1 out of 4 bilaterally Extremity normal to inspection Neuro oriented x3 and CN's II-XII intact bilaterally Sensorium / Orientation: alert Psych Psych Narrative: Patient has a nervous/anxious affect Skin no rashes or lesions noted Skin Narrative: No secondary changes to suggest infection MDM MDM MDM Narrative Medical decision making narrative: Patient presented to the ER hypertensive but is in pain and otherwise with stable vitals. Chart review reveals she has been seen in the ER multiple times for recurrent back pain and abdominal pain has had multiple work-ups with multiple CT scans and blood work. At this time she does not have risk factors concerning for cauda equina or epidural abscess and there is no report or signs of trauma. Therefore do not feel there is need for further work-up. I discussed with patient that the ER does not treat chronic pain and that she cannot receive a narcotic injection at this time. Patient became upset with hearing this but I reiterated that we cannot provide any type of opiate medication for home or in the ER because of her chronic issues. She was given Toradol Norflex and a GI cocktail. Following this she was able to ambulate to and from the bathroom. Therefore at this time as history and exam indicate this is acute on chronic back pain and not cauda equina or epidural abscess or nerve impingement or discitis or kidney stone there is no need for further evaluation he is otherwise safe for discharge History & Record Review Discussion w/independent historian: EMS personnel and Patient Discharge Plan Triage Chief Complaint: Back ED Provider: Angelo Omalley Dx/Rx/DC Orders Clinical Impression: Chronic back pain, Neuropathy, Hypertension, Insulin dependent diabetes mellitus Instructions: Chronic Pain Therapies Mind Body, ED Chronic Pain Prescriptions: No Action atorvastatin 80 mg tablet 80 mg PO QHS budesonide-formoterol [Symbicort] 160-4.5 mcg/actuation HFA aerosol inhaler 2 puff inhalation BID albuterol sulfate 90 mcg/actuation HFA aerosol inhaler 2 puff inhalation Q6H PRN (Reason: SOB) cholecalciferol (vitamin D3) 50 mcg (2,000 unit) capsule 50 mcg PO DAILY Qty: 90 3RF gabapentin 300 mg capsule 600 mg PO .COMPLEX Rx Instructions: 600 mg orally QID; lisinopril 40 mg tablet 40 mg PO DAILY insulin glargine 100 unit/mL (3 mL) insulin pen 25 unit SC BREAKFAST ipratropium-albuterol 0.5 mg-3 mg(2.5 mg base)/3 mL solution for nebulization 3 ml inhalation 4X/DAY PRN (Reason: sob) loratadine 10 mg tablet 10 mg PO DAILY acetaminophen 500 mg tablet 1,000 mg PO Q8H PRN (Reason: Pain) ondansetron 4 mg tablet,disintegrating 4 mg PO Q8H PRN PRN (Reason: Nausea) Qty: 10 0RF ondansetron 4 mg tablet,disintegrating 4 mg PO Q8H PRN PRN (Reason: Nausea) Qty: 10 0RF dicyclomine 10 mg capsule 10 mg PO BID Qty: 10 0RF insulin lispro [Humalog KwikPen Insulin] 100 unit/mL insulin pen 10 unit subcut TIDWMEAL Qty: 15 3RF Protocol: 4. Sliding Scale Insulin High-Med Dosing Condition: 150-199 mg/dl = 2 units Condition: 200-259 mg/dl = 4 units Condition: 260-324 mg/dl = 6 units Condition: 325-374 mg/dl = 8 units Condition: 375-409 mg/dl = 10 units Condition: 410-449 mg/dl = 11 units Condition: Greater than 449 call physician Protocol Text: - Use for Total Daily Dose of Insulin 56-80 units - Patient who are insulin resistant or septic HIGH MEDIUM DOSING ALGORITHM (DME) pen needle, diabetic [BD Ultra-Fine Sissy Pen Needle] 32 gauge x 5/32 needle See Rx Instructions .ROUTE .MEDSUPPLY Qty: 150 3RF Rx Instructions: 5 times daily (DME) FreeStyle Sandra 14 Day Sensor Kit See Rx Instructions .Route Qty: 2 5RF Rx Instructions: As directed Primary Care Provider: Araceli Ramos NP Referrals: Araceli Ramos NP, WINDOWS SOFTWARE ENGINEER-C [Primary Care Provider] - Activity Restrictions/Additional Instructions: Please follow-up with your pain management doctor to discuss other options/treatment strategies for your recurrent pain Disposition Disposition: Home, Self Care Discharge Date/Time: 02/01/23 06:55
[2023-02-01] MEDS: Orphenadrine 60 MG/2 ML Ampul IM (03:42)
[2023-02-01] MEDS: Ketorolac 30 MG/ML Syringe IM (03:42)
[2023-02-01] MEDS: Mag Hydrox/Al Hydrox/Simeth 30 ML UDC PO (04:05)
[2023-02-01 05:11] VITALS: BP 204/126; PULSE 98; RESP 17; O2SAT 100
--- NOTE | 2023-02-01 06:26 | ED.RN ---
Pt refusing BP recheck. Pt stated that it hurt too bad for it to be taken again. Dr. Shahram walker.
== END 2023-02-01 06:55 | disposition home or self-care (01) ==
LOC: ED 03:39
PROVIDERS: Emergency Provider Emergency Medicine; PCP Internal Medicine; Visit Provider Emergency Medicine
DX: M54.9 Dorsalgia, unspecified (principal); J44.9 Chronic obstructive pulmonary disease, unspecified; E11.40 Type 2 diabetes mellitus with diabetic neuropathy, unspecified; Z79.4 Long term (current) use of insulin; G89.29 Other chronic pain; I25.10 Atherosclerotic heart disease of native coronary artery without angina pectoris; I10 Essential (primary) hypertension; E78.00 Pure hypercholesterolemia, unspecified
CPT/HCPCS: 99284

== ENCOUNTER 2023-02-17 05:37 | Emergency (ER) | payer MEDICAID, SELFPAY ==
[2023-02-17 05:38] VITALS: BP 201/96; PULSE 85; RESP 16; TEMP 35.8; O2SAT 100; BMI 30.2
[2023-02-17 06:09] LABS: Absolute Lymphocyte Count 2.58 X10^3/uL (0.83-4.51); Basophil# 0.02 X10^3/uL; Basophil% 0.2 % (0-1); Eosinophil# 0.18 X10^3/uL; Eosinophils% 2.1 % (0-5); Hematocrit 37.2 % (37-47); Hemoglobin 11.9 g/dL (12.0-15.0); Lymphocyte # 2.58 X10^3/ul (0.83-4.51); Lymphocyte % 30.2 % (19-41); Mean Corpuscular Hgb 27.9 pg (27.0-32.0); Mean Corpuscular Volume 87.3 fL (81-99); Mean Platelet Vol. 10.6 fl (6.2-12.0); Monocyte# 0.68 X10^3/uL; NRBC Flagged by Analyzer 0 % (0-5); Neutrophil # 5.03 X10^3/uL (2.7-7.7); Platelet Count 351 K/mm3 (150-450); RBC Distribution Width CV 14.4 % (11.6-14.6); Red Blood Count 4.26 M/mm3 (4.2-5.4); White Blood Count 8.5 K/mm3 (4.4-11.0)
[2023-02-17 06:28] LABS: ALB/GLOB Ratio 0.7 RATIO (0.9-2.4); AST(SGOT) 11 U/L (15-37); Alanine Aminotransfer ALT/SGPT 16 U/L (13-56); Albumin, Serum 2.9 g/dL (3.2-5.0); Alkaline Phosphatase 120 U/L (45-117); Anion Gap 6 (5-15); BUN 21 mg/dL (7-18); BUN/Creat Ratio 23.9 RATIO (10-20); Calcium,Total 9.3 mg/dL (8.5-10.1); Chloride 105 mmol/L (98-107); Creatinine, Serum 0.88 mg/dL (0.55-1.02); EST Glomerular Filtration Rate 70 mL/min (>60); Est Glom Filt Rate - Afr Amer 85 mL/min (>60); Estimated Creatinine Clearance 50.05 ml/min; Globulin 3.9 g/dL (2.2-4.2); Glucose 237 mg/dL (74-106); Potassium 4.2 mmol/L (3.5-5.1); Protein, Total 6.8 g/dL (6.4-8.2); Sodium Level 135 mmol/L (136-145)
[2023-02-17 06:43] LABS: Bacteria 0 SEEN /hpf (None Seen); Mucous, Urine 0 SEEN /hpf (<or=2+)
[2023-02-17 06:45] LABS: Color, Urine Yellow (Yellow); Glucose, Dipstick 250 mg/dl (Normal); Ketone-Dipstick Negative (Negative); Leukocyte Esterase-Dipstick 25 /ul (Negative); Nitrite-Dipstick Negative (Negative); Occult Blood-Urine 10 /ul (Negative); Protein-Dipstick 100 mg/dl (Negative); Urine Bilirubin Dipstick Negative (Negative); Urine Clarity Clear (Clear); Urine Urobilinogen Normal (Normal)
[2023-02-17] MEDS: Ondansetron 4 MG/2 ML Vial IV (06:47)
[2023-02-17] MEDS: HYDROmorphone 1 MG/ML Syringe IV (06:47)
[2023-02-17 06:48] LABS: Lipase 30 U/L (13-75)
--- NOTE | 2023-02-17 06:58 | EX.ED.DYSGE1 ---
HPI History of Present Illness Chief Complaint: Abd Pain Informant: patient and EMS Narrative Narrative: Patient is a 57-year-old female with past medical history of chronic abdominal pain. She has been seen in the ER multiple times for it and has had multiple imaging studies. She recently states that she just had an outpatient ultrasound because her liver enzymes were elevated but showed no signs of infection or derangement to her gallbladder. She states that in approximately 1 days she is going to have a diagnostic laparoscopic surgery at an outside hospital but that the pain was too great to bear this morning and secondary to this she called EMS and comes in for evaluation. [facility] Medical History Anxiety Arthritis Asthma Back pain Back pain Cardiology follow-up encounter Chronic neck and back pain COPD (chronic obstructive pulmonary disease) Coronary artery calcification seen on CAT scan CPAP (continuous positive airway pressure) dependence Depression Dietary restriction Difficulty balancing Gastric reflux High cholesterol History of arthritis History of echocardiogram History of edema History of pain when walking History of renal disease History of stomach ulcers History of stress test Hypertension Injury of head and neck Insulin dependent diabetes mellitus Knee pain Lumbar stenosis Obesity Osteomyelitis Shortness of breath on exertion Shoulder pain Sleep apnea Smoker Spinal fusion failure Strain of muscle, fascia and tendon of pelvis, initial encounter Strain of right hip and thigh Strain of right inguinal region Strain of unspecified muscles, fascia and tendons at thigh level, right thigh, initial encounter Syncope Thyroid disease Type 2 diabetes mellitus Walker as ambulation aid Wears glasses Home Medications insulin glargine 100 unit/mL (3 mL) subcutaneous pen 25 unit subcut BREAKFAST DIABETES 11/03/20 [History Last Taken 06/14/22] albuterol sulfate 90 mcg/actuation aerosol inhaler 2 puff inhalation Q6H PRN SOB 06/14/21 [History Last Taken 06/14/22] atorvastatin 80 mg tablet 80 mg PO QHS CHOLESTEROL 06/14/21 [History Last Taken 06/13/22] budesonide-formoterol HFA 160 mcg-4.5 mcg/actuation aerosol inhaler (Symbicort) 2 puff inhalation BID ASTHMA 06/14/21 [History Last Taken 12/25/21] ipratropium 0.5 mg-albuterol 3 mg (2.5 mg base)/3 mL nebulization soln 3 ml inhalation 4X/DAY PRN sob 11/27/21 [History Last Taken 11/25/21] loratadine 10 mg tablet 10 mg PO DAILY allergies 11/27/21 [History Last Taken 02/21/22] acetaminophen 500 mg tablet 1,000 mg PO Q8H PRN Pain 02/22/22 [History Last Taken 06/14/22] cholecalciferol (vitamin D3) 50 mcg (2,000 unit) capsule 50 mcg PO DAILY #90 caps 08/15/22 [Rx Last Taken Unknown] insulin lispro 100 unit/mL subcutaneous pen (Humalog KwikPen (U-100) Insulin) 10 unit subcut TIDWMEAL DM #15 mL 09/03/22 [Rx Last Taken Unknown] pen needle, diabetic 32 gauge x /32 (BD Ultra-Fine Sissy Pen Needle) #150 ea 09/03/22 [Rx Last Taken Unknown] lisinopril 40 mg tablet 40 mg PO DAILY 10/10/22 [History Last Taken Unknown] ondansetron 4 mg disintegrating tablet 4 mg PO Q8H PRN PRN Nausea #10 tabs 10/13/22 [Rx Last Taken Unknown] gabapentin 300 mg capsule 600 mg PO .COMPLEX 11/15/22 [History Last Taken Unknown] ondansetron 4 mg disintegrating tablet 4 mg PO Q8H PRN PRN Nausea #10 tabs 01/19/23 [Rx Last Taken Unknown] flash glucose sensor (FreeStyle Sandra 14 Day Sensor kit) #2 ea 01/29/23 [Rx Last Taken Unknown] Allergy/AdvReac Type Severity Reaction Status Date / Time duloxetine [From Cymbalta] Allergy Unknown Verified 02/17/23 05:40 pregabalin [From Lyrica] Allergy Unknown Verified 02/17/23 05:40 Penicillins AdvReac Mild leaves a Verified 02/17/23 05:40 bad taste in her mouth. acetaminophen AdvReac Vomiting Verified 02/17/23 05:40 aspirin AdvReac Upset Verified 02/17/23 05:40 Stomach NSAIDS (Non-Steroidal AdvReac Upset Verified 02/17/23 05:40 Anti-Inflamma Stomach Family History Father Cancer Unclear type. Mother Lung cancer Concurrent tobacco use history. Surgical History History of ankle surgery History of History of carpal tunnel release History of hysterectomy History of open reduction and internal fixation (ORIF) procedure History of partial thyroidectomy Social History household members: none Smoking Status: Current every day smoker tobacco type: cigarettes alcohol intake: never substance use type: does not use ROS ROS ED Constitutional Constitutional ED: Denies chills or fever(s) ENT ENT ED: Denies sore throat Cardiovascular Cardiovascular: Denies chest pain Respiratory/Chest Respiratory/Chest: Denies cough or dyspnea Gastrointestinal Gastrointestinal: Reports abdominal pain; Denies constipation, diarrhea, nausea or vomiting Genitourinary Genitourinary ED: Denies dysuria or hematuria Musculoskeletal Musculoskeletal: Denies myalgias Integumentary Denies rash Neurologic Neurologic: Denies headache(s) Hematologic/Lymphatic Hematologic/Lymphatic: Denies easy bleeding or easy bruising EXAM Physical Exam Const Vital Signs: 02/17/23 05:38 Temperature 96.4 F L Temperature Source Temporal Pulse Rate 85 Respiratory Rate 16 Blood Pressure 201/96 H Blood Pressure Mean 131 Pulse Ox 100 Positive well nourished, well developed and obese General Appearance ED: well developed Nutritional Appearance: obese HEENT Reports moist mucous membranes Eyes PERRL and EOMs intact bilaterally General Eye ED: Negative for scleral icterus Neck supple Resp normal respiratory effort and clear to auscultation bilaterally Cardio regular rate and regular rhythm Rate: other Other Details: Radial pulses are plus 2 out of 4 bilaterally are equal and symmetric GI non-distended GI Narrative: Abdomen is obese soft and nondistended with hypoactive bowel sounds. There is mild diffuse pain on palpation without voluntary guarding or rigidity. No pulsatile mass or fluid wave noted Auscultation: hypoactive bowel sounds Palpation: soft Back/Spine no CVA tenderness Extremity normal to inspection Neuro oriented x3 and CN's II-XII intact bilaterally Sensorium / Orientation: alert Psych mental status grossly normal Skin no rashes or lesions noted General Skin Exam: Negative for jaundice MDM MDM MDM Narrative Medical decision making narrative: Patient presented to the ER hypertensive but has a past medical history of this. She complains of generalized abdominal pain and differential diagnosis is gastritis versus gastroenteritis versus pancreatitis versus biliary colic. The patient's chart was reviewed and she has had multiple imaging studies such as CT scans with and without contrast as well as laboratory studies and these revealed just mild thickening of the stomach wall without other acute abnormality. She reports majority of her pain this morning is in the midepigastric region and was concerned this could be pancreatitis I did elect to perform repeat laboratory studies. Patient's white count is normal electrolytes are within normal range and she has no acute kidney injury finding. More so her lipase is normal at 30 going against acute pancreatitis and further review of her records show she had an outpatient ultrasound at an outside facility recently showing a normal gallbladder. Therefore at this time and I do not feel there is need for further work-up as she is scheduled for a reported diagnostic laparoscopic surgery in 24 hours and she had multiple abdominal imaging is performed. Patient was advised she needs to keep her appointment for her outpatient surgical procedure and that today's work-up reveals no signs of obstruction or infection or biliary colic or pancreatitis and she is otherwise safe for discharge History & Record Review Discussion w/independent historian: EMS personnel and Patient Lab Data Attestation: I reviewed the patient's lab results. Labs: Laboratory Results - last 24 hr 02/17/23 02/17/23 02/17/23 05:50 05:50 05:50 WBC 8.5 RBC 4.26 Hgb 11.9 L Hct 37.2 MCV 87.3 MCH 27.9 MCHC 32.0 RDW Std Deviation 46.0 H RDW Coeff of Yudelka 14.4 Plt Count 351 MPV 10.6 Immature Gran % (Auto) 0.500 Neut % (Auto) 59.0 Lymph % (Auto) 30.2 Linn % (Auto) 8.0 Eos % (Auto) 2.1 Baso % (Auto) 0.2 Absolute Neuts (auto) 5.0 Absolute Lymphs (auto) 2.58 Nucleated RBC % 0 Sodium 135 L Potassium 4.2 Chloride 105 Carbon Dioxide 24.0 Anion Gap 6 BUN 21 H Creatinine 0.88 Estim Creat Clear Calc 50.05 Est GFR (MDRD) Af Amer 85 Est GFR (MDRD) Non-Af 70 BUN/Creatinine Ratio 23.9 H Glucose 237 H Calcium 9.3 Total Bilirubin 0.20 AST 11 L ALT 16 Alkaline Phosphatase 120 H Total Protein 6.8 Albumin 2.9 L Globulin 3.9 Albumin/Globulin Ratio 0.7 L Lipase 30 Discharge Plan Triage Chief Complaint: Abd Pain ED Provider: Angelo Omalley Dx/Rx/DC Orders Clinical Impression: Abdominal pain, chronic, generalized, Type 2 diabetes mellitus, Hypertension Instructions: Abdominal Pain Prescriptions: No Action atorvastatin 80 mg tablet 80 mg PO QHS budesonide-formoterol [Symbicort] 160-4.5 mcg/actuation HFA aerosol inhaler 2 puff inhalation BID albuterol sulfate 90 mcg/actuation HFA aerosol inhaler 2 puff inhalation Q6H PRN (Reason: SOB) cholecalciferol (vitamin D3) 50 mcg (2,000 unit) capsule 50 mcg PO DAILY Qty: 90 3RF gabapentin 300 mg capsule 600 mg PO .COMPLEX Rx Instructions: 600 mg orally QID; lisinopril 40 mg tablet 40 mg PO DAILY insulin glargine 100 unit/mL (3 mL) insulin pen 25 unit SC BREAKFAST ipratropium-albuterol 0.5 mg-3 mg(2.5 mg base)/3 mL solution for nebulization 3 ml inhalation 4X/DAY PRN (Reason: sob) loratadine 10 mg tablet 10 mg PO DAILY acetaminophen 500 mg tablet 1,000 mg PO Q8H PRN (Reason: Pain) ondansetron 4 mg tablet,disintegrating 4 mg PO Q8H PRN PRN (Reason: Nausea) Qty: 10 0RF ondansetron 4 mg tablet,disintegrating 4 mg PO Q8H PRN PRN (Reason: Nausea) Qty: 10 0RF insulin lispro [Humalog KwikPen Insulin] 100 unit/mL insulin pen 10 unit subcut TIDWMEAL Qty: 15 3RF Protocol: 4. Sliding Scale Insulin High-Med Dosing Condition: 150-199 mg/dl = 2 units Condition: 200-259 mg/dl = 4 units Condition: 260-324 mg/dl = 6 units Condition: 325-374 mg/dl = 8 units Condition: 375-409 mg/dl = 10 units Condition: 410-449 mg/dl = 11 units Condition: Greater than 449 call physician Protocol Text: - Use for Total Daily Dose of Insulin 56-80 units - Patient who are insulin resistant or septic HIGH MEDIUM DOSING ALGORITHM (DME) pen needle, diabetic [BD Ultra-Fine Sissy Pen Needle] 32 gauge x 5/32 needle See Rx Instructions .ROUTE .MEDSUPPLY Qty: 150 3RF Rx Instructions: 5 times daily (DME) FreeStyle Sandra 14 Day Sensor Kit See Rx Instructions .Route Qty: 2 5RF Rx Instructions: As directed Primary Care Provider: Araceli Ramos NP Referrals: Araceli Ramos NP, INDUSTRIAL SERVICE TECHNICIAN-C [Primary Care Provider] - Activity Restrictions/Additional Instructions: Please follow-up with your general surgeon as directed in order to have your diagnostic procedure performed in order to further assess the cause of your abdominal pain Disposition Disposition: Home, Self Care Discharge Date/Time: 02/17/23 07:17
[2023-02-17 07:13] LABS: Red Blood Cells-Urine 0-5 SEEN /hpf (0-5); White Blood Cells 0-5 SEEN /hpf (0-5)
[2023-02-17 07:15] LABS: Squamous Epithelial Cells - UA 0-5 SEEN /hpf (5-10)
== END 2023-02-17 07:17 | disposition home or self-care (01) ==
PROVIDERS: Emergency Provider Emergency Medicine; PCP Internal Medicine; Visit Provider Emergency Medicine
DX: G89.29 Other chronic pain (principal); J44.9 Chronic obstructive pulmonary disease, unspecified; E11.9 Type 2 diabetes mellitus without complications; Z79.4 Long term (current) use of insulin; R10.9 Unspecified abdominal pain; I25.10 Atherosclerotic heart disease of native coronary artery without angina pectoris; I10 Essential (primary) hypertension; E78.00 Pure hypercholesterolemia, unspecified; J45.909 Unspecified asthma, uncomplicated; Z79.899 Other long term (current) drug therapy; Z79.51 Long term (current) use of inhaled steroids; Z99.89 Dependence on other enabling machines and devices; Z90.710 Acquired absence of both cervix and uterus
CPT/HCPCS: 80053; 81001; 83690; 85025; 96374; 96375; 99285; A4216; J2405

== ENCOUNTER 2023-02-23 21:07 | Emergency (ER) | payer MEDICAID, SELFPAY ==
[2023-02-23 21:09] VITALS: BP 172/90; PULSE 82; RESP 18; TEMP 36.4; O2SAT 99; BMI 28.7
[2023-02-23] MEDS: morphine 10 MG/ML Syringe IM (21:37)
--- NOTE | 2023-02-23 21:45 | RAD_ITS ---
STUDY: X-RAY - ACUTE ABDOMINAL SERIES REASON FOR EXAM: Female, 57 years old. abd pain -- recent EGD TECHNIQUE: Single view of the chest. Supine, 5 view(s) of the abdomen were obtained. COMPARISON: Chest x-ray June 15, 2022. CT abdomen and pelvis January 27, 2023. FINDINGS: The lungs are clear and expanded. Normal size heart. Normal mediastinum and judah. Normal visualized pulmonary arteries. Normal visualized aortic arch and descending thoracic aorta. Ileus. The soft tissue structures of the abdomen and pelvis are unremarkable. Spondylosis and mild scoliosis. L4-5 disc prosthesis. RAD/Acute Abdomen Inc Chest IMPRESSION: Mild ileus Electronically Signed: Monty Fox MD at 23:01 EDT ,
[2023-02-23 22:14] VITALS: BP 172/90; PULSE 82; RESP 18; O2SAT 99
--- NOTE | 2023-02-23 22:15 | ED.RN ---
pt reports my ride is here and i have to go. i will just call medical records for my xray results. dr love made aware
--- NOTE | 2023-02-23 23:10 | EDS_ITS ---
HPI History of Present Illness Chief Complaint: Abd Pain Informant: patient Onset/Context/Timing Onset: - (Acute on chronic) Narrative Narrative: Patient presents secondary to increased abdominal pain. She has had chronic abdominal pain with multiple laboratory and imaging studies. On the she had an EGD performed by Dr. Fitzgerald at [facility]. Report states that gastritis was found and biopsies were sent. Those results are still pending at this time. Patient reported was seen in the emergency room at [facility] late in the evening on the . Lab work was unremarkable and I was able to re view those values. She declined any imaging studies. She presents tonight secondary to continued abdominal pain. She states that Dr. Fitzgerald had given her oxycodone which she ran out of yesterday. In reviewing the prescription he had written her for a 5-day supply on the . She has not noted fever or chills. She is passing gas. No vomiting. She is already on Carafate as well as antacids. [facility] Medical History Anxiety Arthritis Asthma Back pain Back pain Cardiology follow-up encounter Chronic neck and back pain COPD (chronic obstructive pulmonary disease) Coronary artery calcification seen on CAT scan CPAP (continuous positive airway pressure) dependence Depression Dietary restriction Difficulty balancing Gastric reflux High cholesterol History of arthritis History of echocardiogram History of edema History of pain when walking History of renal disease History of stomach ulcers History of stress test Hypertension Injury of head and neck Insulin dependent diabetes mellitus Knee pain Lumbar stenosis Obesity Osteomyelitis Shortness of breath on exertion Shoulder pain Sleep apnea Smoker Spinal fusion failure Strain of muscle, fascia and tendon of pelvis, initial encounter Strain of right hip and thigh Strain of right inguinal region Strain of unspecified muscles, fascia and tendons at thigh level, right thigh, initial encounter Syncope Thyroid disease Type 2 diabetes mellitus Walker as ambulation aid Wears glasses Home Medications insulin glargine 100 unit/mL (3 mL) subcutaneous pen 25 unit subcut BREAKFAST DIABETES 11/03/20 [History Last Taken 06/14/22] albuterol sulfate 90 mcg/actuation aerosol inhaler 2 puff inhalation Q6H PRN SOB 06/14/21 [History Last Taken 06/14/22] atorvastatin 80 mg tablet 80 mg PO QHS CHOLESTEROL 06/14/21 [History Last Taken 06/13/22] budesonide-formoterol HFA 160 mcg-4.5 mcg/actuation aerosol inhaler (Symbicort) 2 puff inhalation BID ASTHMA 06/14/21 [History Last Taken 12/25/21] ipratropium 0.5 mg-albuterol 3 mg (2.5 mg base)/3 mL nebulization soln 3 ml inhalation 4X/DAY PRN sob 11/27/21 [History Last Taken 11/25/21] loratadine 10 mg tablet 10 mg PO DAILY allergies 11/27/21 [History Last Taken 02/21/22] acetaminophen 500 mg tablet 1,000 mg PO Q8H PRN Pain 02/22/22 [History Last Taken 06/14/22] cholecalciferol (vitamin D3) 50 mcg (2,000 unit) capsule 50 mcg PO DAILY #90 caps 08/15/22 [Rx Last Taken Unknown] insulin lispro 100 unit/mL subcutaneous pen (Humalog KwikPen (U-100) Insulin) 10 unit subcut TIDWMEAL DM #15 mL 09/03/22 [Rx Last Taken Unknown] pen needle, diabetic 32 gauge x 5/32 (BD Ultra-Fine Sissy Pen Needle) #150 ea 09/03/22 [Rx Last Taken Unknown] lisinopril 40 mg tablet 40 mg PO DAILY 10/10/22 [History Last Taken Unknown] ondansetron 4 mg disintegrating tablet 4 mg PO Q8H PRN PRN Nausea #10 tabs 10/13/22 [Rx Last Taken Unknown] gabapentin 300 mg capsule 600 mg PO .COMPLEX 11/15/22 [History Last Taken Unknown] ondansetron 4 mg disintegrating tablet 4 mg PO Q8H PRN PRN Nausea #10 tabs 01/19/23 [Rx Last Taken Unknown] flash glucose sensor (FreeStyle Sandra 14 Day Sensor kit) #2 ea 01/29/23 [Rx Last Taken Unknown] Allergy/AdvReac Type Severity Reaction Status Date / Time duloxetine [From Cymbalta] Allergy Unknown Verified 02/23/23 21:12 pregabalin [From Lyrica] Allergy Unknown Verified 02/23/23 21:12 Penicillins AdvReac Mild leaves a Verified 02/23/23 21:12 bad taste in her mouth. acetaminophen AdvReac Vomiting Verified 02/23/23 21:12 aspirin AdvReac Upset Verified 02/23/23 21:12 Stomach NSAIDS (Non-Steroidal AdvReac Upset Verified 02/23/23 21:12 Anti-Inflamma Stomach Family History Father Cancer Unclear type. Mother Lung cancer Concurrent tobacco use history. Surgical History History of ankle surgery History of History of carpal tunnel release History of hysterectomy History of open reduction and internal fixation (ORIF) procedure History of partial thyroidectomy Social History household members: none Smoking Status: Current every day smoker tobacco type: cigarettes alcohol intake: never substance use type: does not use ROS ROS ED Constitutional Constitutional ED: Denies chills or fever(s) Eyes Eyes: Denies discharge from eye(s) ENT ENT ED: Denies discharge from eye(s) or sore throat Cardiovascular Cardiovascular: Denies chest pain Respiratory/Chest Respiratory/Chest: Denies cough or dyspnea Gastrointestinal Gastrointestinal: Reports abdominal pain; Denies diarrhea, nausea or vomiting Genitourinary Genitourinary ED: Denies dysuria Musculoskeletal Musculoskeletal: Denies back pain or extremity pain Integumentary Denies Abrasions or rash Neurologic Neurologic: Denies headache(s) or weakness Psychiatric Psychiatric: Denies anxiety or depression Allergic/Immunologic Allergic/Immunologic ED: Denies lip swelling or urticaria EXAM Physical Exam Const Vital Signs: 02/23/23 21:09 02/23/23 22:14 Temperature 97.6 F L Temperature Source Temporal Pulse Rate 82 82 Respiratory Rate 18 18 Blood Pressure 172/90 H 172/90 H Blood Pressure Mean 117 Pulse Ox 99 99 Oxygen Delivery Method Room Air Positive well nourished and well developed General Appearance ED: well developed HEENT Reports normocephalic and head/scalp atraumatic Eyes PERRL and EOMs intact bilaterally Neck supple Chest Wall inspection of chest normal and palpation of chest normal Resp normal respiratory effort and clear to auscultation bilaterally Cardio regular rate and regular rhythm GI GI Narrative: Diffuse abdominal tenderness palpation. No guarding or rebound. Hypoactive but present bowel sounds are noted. Palpation: soft Back/Spine no CVA tenderness Extremity normal to inspection Neuro oriented x3 and no sensory deficits noted Sensorium / Orientation: alert Motor Exam: strength 5/5 throughout Psych mental status grossly normal Skin no rashes or lesions noted MDM MDM MDM Narrative Medical decision making narrative: I was able to review of the labs from [facility] that were obtained less than 24 hours ago. I do not feel she needs repeated laboratory evaluation. Given her recent EGD and pain I did elect to perform an acute abdominal series to ensure no evidence of free air. Patient was given IM injection of morphine. Radiography Diagnostic Testing: Clinical Impression(s) from Imaging Studies Acute Abdomen Series 02/23/23 21:45 IMPRESSION: Mild ileus Electronically Signed: Monty Fox MD at 23:01 EDT Reading Location ID and State[facility] [place] [facility] , Treatment and Re-Evaluation :: Chest and abdominal x-rays per my interpretation reveal nonspecific bowel gas pattern with no evidence of obstruction. I do not appreciate free air. Radiology interpretation is reviewed and feels there may be a mild ileus. I was notified by nursing staff prior to return of imaging results with the patient stated her ride was here and she needed to leave. We discussed that I would treat her pain tonight but would not write her any prescriptions for home and that she would have to follow-up with her physician for any further pain medication. Patient left the emergency room without discharge paperwork. Discharge Plan Triage Chief Complaint: Abd Pain ED Provider: Marcy Kidd Dx/Rx/DC Orders Clinical Impression: Abdominal pain Prescriptions: No Action atorvastatin 80 mg tablet 80 mg PO QHS budesonide-formoterol [Symbicort] 160-4.5 mcg/actuation HFA aerosol inhaler 2 puff inhalation BID albuterol sulfate 90 mcg/actuation HFA aerosol inhaler 2 puff inhalation Q6H PRN (Reason: SOB) cholecalciferol (vitamin D3) 50 mcg (2,000 unit) capsule 50 mcg PO DAILY Qty: 90 3RF gabapentin 300 mg capsule 600 mg PO .COMPLEX Rx Instructions: 600 mg orally QID; lisinopril 40 mg tablet 40 mg PO DAILY insulin glargine 100 unit/mL (3 mL) insulin pen 25 unit SC BREAKFAST ipratropium-albuterol 0.5 mg-3 mg(2.5 mg base)/3 mL solution for nebulization 3 ml inhalation 4X/DAY PRN (Reason: sob) loratadine 10 mg tablet 10 mg PO DAILY acetaminophen 500 mg tablet 1,000 mg PO Q8H PRN (Reason: Pain) ondansetron 4 mg tablet,disintegrating 4 mg PO Q8H PRN PRN (Reason: Nausea) Qty: 10 0RF ondansetron 4 mg tablet,disintegrating 4 mg PO Q8H PRN PRN (Reason: Nausea) Qty: 10 0RF insulin lispro [Humalog KwikPen Insulin] 100 unit/mL insulin pen 10 unit subcut TIDWMEAL Qty: 15 3RF Protocol: 4. Sliding Scale Insulin High-Med Dosing Condition: 150-199 mg/dl = 2 units Condition: 200-259 mg/dl = 4 units Condition: 260-324 mg/dl = 6 units Condition: 325-374 mg/dl = 8 units Condition: 375-409 mg/dl = 10 units Condition: 410-449 mg/dl = 11 units Condition: Greater than 449 call physician Protocol Text: - Use for Total Daily Dose of Insulin 56-80 units - Patient who are insulin resistant or septic HIGH MEDIUM DOSING ALGORITHM (DME) pen needle, diabetic [BD Ultra-Fine Sissy Pen Needle] 32 gauge x 5/32 needle See Rx Instructions .ROUTE .MEDSUPPLY Qty: 150 3RF Rx Instructions: 5 times daily (DME) FreeStyle Sandra 14 Day Sensor Kit See Rx Instructions .Route Qty: 2 5RF Rx Instructions: As directed Primary Care Provider: Araceli Ramos NP Referrals: Araceli Ramos NP, MANUFACTURING TECHNOLOGY ANALYST-C [Primary Care Provider] - Disposition Disposition: [facility] Discharge Date/Time: 02/23/23 22:00
== END 2023-02-23 22:00 | disposition left against medical advice (07) ==
LOC: ED 21:34
PROVIDERS: Emergency Provider Emergency Medicine; PCP Internal Medicine; Visit Provider Emergency Medicine
DX: R10.9 Unspecified abdominal pain (principal); J44.9 Chronic obstructive pulmonary disease, unspecified; E11.9 Type 2 diabetes mellitus without complications; Z79.4 Long term (current) use of insulin; E78.00 Pure hypercholesterolemia, unspecified; I10 Essential (primary) hypertension; Z79.899 Other long term (current) drug therapy; J45.909 Unspecified asthma, uncomplicated; Z79.51 Long term (current) use of inhaled steroids; Z90.710 Acquired absence of both cervix and uterus; F17.210 Nicotine dependence, cigarettes, uncomplicated
CPT/HCPCS: 74022; 96372; 99284

== ENCOUNTER 2023-03-02 21:08 | Emergency (ER) | payer MEDICAID, SELFPAY ==
[2023-03-02 21:09] VITALS: BP 186/81; PULSE 84; RESP 20; TEMP 37; O2SAT 100; BMI 30.2
--- NOTE | 2023-03-02 21:41 | EX.ED.DYSGE1 ---
HPI History of Present Illness Chief Complaint: Abd Pain Informant: patient Onset/Context/Timing Onset: - (Acute on chronic, worsened x3 days) Current Severity: Severe Maximum Severity: Severe Narrative Narrative: Patient presents secondary to severe upper abdominal pain that wraps around to the flank region bilaterally. She has had chronic upper abdominal pain and has undergone multiple work-ups. She recently had an EGD that showed mild gastritis and was negative for H. pylori. She is scheduled to have a HIDA scan as well as a gastric emptying study later this week. [facility] Medical History Anxiety Arthritis Asthma Back pain Back pain Cardiology follow-up encounter Chronic neck and back pain COPD (chronic obstructive pulmonary disease) Coronary artery calcification seen on CAT scan CPAP (continuous positive airway pressure) dependence Depression Dietary restriction Difficulty balancing Gastric reflux High cholesterol History of arthritis History of echocardiogram History of edema History of pain when walking History of renal disease History of stomach ulcers History of stress test Hypertension Injury of head and neck Insulin dependent diabetes mellitus Knee pain Lumbar stenosis Obesity Osteomyelitis Shortness of breath on exertion Shoulder pain Sleep apnea Smoker Spinal fusion failure Strain of muscle, fascia and tendon of pelvis, initial encounter Strain of right hip and thigh Strain of right inguinal region Strain of unspecified muscles, fascia and tendons at thigh level, right thigh, initial encounter Syncope Thyroid disease Type 2 diabetes mellitus Walker as ambulation aid Wears glasses Home Medications insulin glargine 100 unit/mL (3 mL) subcutaneous pen 25 unit subcut BREAKFAST DIABETES 11/03/20 [History Last Taken 06/14/22] albuterol sulfate 90 mcg/actuation aerosol inhaler 2 puff inhalation Q6H PRN SOB 06/14/21 [History Last Taken 06/14/22] atorvastatin 80 mg tablet 80 mg PO QHS CHOLESTEROL 06/14/21 [History Last Taken 06/13/22] budesonide-formoterol HFA 160 mcg-4.5 mcg/actuation aerosol inhaler (Symbicort) 2 puff inhalation BID ASTHMA 06/14/21 [History Last Taken 12/25/21] ipratropium 0.5 mg-albuterol 3 mg (2.5 mg base)/3 mL nebulization soln 3 ml inhalation 4X/DAY PRN sob 11/27/21 [History Last Taken 11/25/21] loratadine 10 mg tablet 10 mg PO DAILY allergies 11/27/21 [History Last Taken 02/21/22] acetaminophen 500 mg tablet 1,000 mg PO Q8H PRN Pain 02/22/22 [History Last Taken 06/14/22] cholecalciferol (vitamin D3) 50 mcg (2,000 unit) capsule 50 mcg PO DAILY #90 caps 08/15/22 [Rx Last Taken Unknown] insulin lispro 100 unit/mL subcutaneous pen (Humalog KwikPen (U-100) Insulin) 10 unit subcut TIDWMEAL DM #15 mL 09/03/22 [Rx Last Taken Unknown] pen needle, diabetic 32 gauge x 5/32 (BD Ultra-Fine Sissy Pen Needle) #150 ea 09/03/22 [Rx Last Taken Unknown] lisinopril 40 mg tablet 40 mg PO DAILY 10/10/22 [History Last Taken Unknown] ondansetron 4 mg disintegrating tablet 4 mg PO Q8H PRN PRN Nausea #10 tabs 10/13/22 [Rx Last Taken Unknown] gabapentin 300 mg capsule 600 mg PO .COMPLEX 11/15/22 [History Last Taken Unknown] flash glucose sensor (FreeStyle Sandra 14 Day Sensor kit) #2 ea 01/29/23 [Rx Last Taken Unknown] Allergy/AdvReac Type Severity Reaction Status Date / Time duloxetine [From Cymbalta] Allergy Unknown Verified 02/23/23 21:12 pregabalin [From Lyrica] Allergy Unknown Verified 02/23/23 21:12 Penicillins AdvReac Mild leaves a Verified 02/23/23 21:12 bad taste in her mouth. acetaminophen AdvReac Vomiting Verified 02/23/23 21:12 aspirin AdvReac Upset Verified 02/23/23 21:12 Stomach NSAIDS (Non-Steroidal AdvReac Upset Verified 02/23/23 21:12 Anti-Inflamma Stomach Family History Father Cancer Unclear type. Mother Lung cancer Concurrent tobacco use history. Surgical History History of ankle surgery History of History of carpal tunnel release History of hysterectomy History of open reduction and internal fixation (ORIF) procedure History of partial thyroidectomy Social History household members: none Smoking Status: Current every day smoker tobacco type: cigarettes alcohol intake: never substance use type: does not use ROS ROS ED Constitutional Constitutional ED: Denies chills or fever(s) Eyes Eyes: Denies discharge from eye(s) ENT ENT ED: Denies discharge from eye(s), rhinorrhea or sore throat Cardiovascular Cardiovascular: Denies chest pain Respiratory/Chest Respiratory/Chest: Denies cough or dyspnea Gastrointestinal Gastrointestinal: Reports abdominal pain and nausea; Denies diarrhea Genitourinary Genitourinary ED: Denies difficulty urinating or dysuria Musculoskeletal Musculoskeletal: Reports back pain; Denies extremity pain Integumentary Denies Abrasions or rash Neurologic Neurologic: Denies headache(s) or weakness Psychiatric Psychiatric: Reports anxiety Allergic/Immunologic Allergic/Immunologic ED: Denies lip swelling or urticaria EXAM Physical Exam Const Vital Signs: 03/02/23 21:09 Temperature 98.6 F Temperature Source Oral Pulse Rate 84 Respiratory Rate 20 H Blood Pressure 186/81 H Blood Pressure Mean 116 Pulse Ox 100 Oxygen Delivery Method Room Air Positive well nourished and well developed General Appearance ED: well developed HEENT Reports moist mucous membranes Eyes EOMs intact bilaterally Chest Wall inspection of chest normal and palpation of chest normal Resp normal respiratory effort and clear to auscultation bilaterally Cardio regular rate and regular rhythm GI GI Narrative: Epigastric tenderness palpation. No guarding or rebound. Active bowel sounds are noted Extremity normal to inspection Neuro oriented x3 and no sensory deficits noted Motor Exam: strength 5/5 throughout Psych Mood & Affect: anxious and tearful Skin no rashes or lesions noted MDM MDM MDM Narrative Medical decision making narrative: I reviewed the patient's records and [facility]. Her recent EGD showed mild gastritis and negative H. pylori. It appears that she called her PCP as well as surgeon's office multiple times late last week requesting more pain medicine. The response to her was that it was not in her best interest to get more narcotics. They recommended following up later this week for further testing. I did review the patient's OARRS report. She had 20 tabs of oxycodone filled on February 24 and 20 tabs of oxycodone filled on February 18. I advised the patient that I would give her a Toradol injection and give her a GI cocktail at this time. I will check lab work. If she has abnormal LFTs, lipase, or any other laboratory test that would justify/support her pain, I will treat her pain appropriately. This time I do not feel that narcotics are in her best interest at this time. Lab Data Labs: Laboratory Results - last 24 hr 03/02/23 03/02/23 21:40 21:40 WBC 7.9 RBC 4.25 Hgb 11.7 L Hct 37.2 MCV 87.5 MCH 27.5 MCHC 31.5 L RDW Std Deviation 45.2 H RDW Coeff of Yudelka 14.2 Plt Count 332 MPV 10.5 Immature Gran % (Auto) 0.400 Neut % (Auto) 59.9 Lymph % (Auto) 29.3 [place] % (Auto) 8.2 Eos % (Auto) 1.8 Baso % (Auto) 0.4 Absolute Neuts (auto) 4.7 Absolute Lymphs (auto) 2.31 Nucleated RBC % 0 Sodium 137 Potassium 4.0 Chloride 104 Carbon Dioxide 24.0 Anion Gap 9 BUN 20 H Creatinine 0.93 Estim Creat Clear Calc 47.36 Est GFR (MDRD) Af Amer 80 Est GFR (MDRD) Non-Af 66 BUN/Creatinine Ratio 21.5 H Glucose 219 H Calcium 9.8 Total Bilirubin 0.20 Direct Bilirubin 0.06 AST 10 L ALT 14 Alkaline Phosphatase 116 Total Protein 6.8 Albumin 2.9 L Globulin 3.9 Lipase 16 Treatment and Re-Evaluation :: Patient was given Toradol and a GI cocktail here. CBC reveals normal white count. Hemoglobin is 11.7. Chemistry studies are unremarkable. Her glucose is elevated at 219. Her LFTs are normal and her lipase is normal. I explained to the patient at this time I have normal labs and cannot justify writing her prescription for narcotics. She is scheduled to see pain management in 2 days. She has further GI testing later this week as well. Return instructions were provided. Discharge Plan Triage Chief Complaint: Abd Pain ED Provider: Marcy Kidd Dx/Rx/DC Orders Clinical Impression: Chronic abdominal pain Instructions: ED Abdominal Pain Unkn Cause Fem Prescriptions: No Action atorvastatin 80 mg tablet 80 mg PO QHS budesonide-formoterol [Symbicort] 160-4.5 mcg/actuation HFA aerosol inhaler 2 puff inhalation BID albuterol sulfate 90 mcg/actuation HFA aerosol inhaler 2 puff inhalation Q6H PRN (Reason: SOB) cholecalciferol (vitamin D3) 50 mcg (2,000 unit) capsule 50 mcg PO DAILY Qty: 90 3RF gabapentin 300 mg capsule 600 mg PO .COMPLEX Rx Instructions: 600 mg orally QID; lisinopril 40 mg tablet 40 mg PO DAILY insulin glargine 100 unit/mL (3 mL) insulin pen 25 unit SC BREAKFAST ipratropium-albuterol 0.5 mg-3 mg(2.5 mg base)/3 mL solution for nebulization 3 ml inhalation 4X/DAY PRN (Reason: sob) loratadine 10 mg tablet 10 mg PO DAILY acetaminophen 500 mg tablet 1,000 mg PO Q8H PRN (Reason: Pain) ondansetron 4 mg tablet,disintegrating 4 mg PO Q8H PRN PRN (Reason: Nausea) Qty: 10 0RF insulin lispro [Humalog KwikPen Insulin] 100 unit/mL insulin pen 10 unit subcut TIDWMEAL Qty: 15 3RF Protocol: 4. Sliding Scale Insulin High-Med Dosing Condition: 150-199 mg/dl = 2 units Condition: 200-259 mg/dl = 4 units Condition: 260-324 mg/dl = 6 units Condition: 325-374 mg/dl = 8 units Condition: 375-409 mg/dl = 10 units Condition: 410-449 mg/dl = 11 units Condition: Greater than 449 call physician Protocol Text: - Use for Total Daily Dose of Insulin 56-80 units - Patient who are insulin resistant or septic HIGH MEDIUM DOSING ALGORITHM (DME) pen needle, diabetic [BD Ultra-Fine Sissy Pen Needle] 32 gauge x 5/32 needle See Rx Instructions .ROUTE .MEDSUPPLY Qty: 150 3RF Rx Instructions: 5 times daily (DME) FreeStyle Sandra 14 Day Sensor Kit See Rx Instructions .Route Qty: 2 5RF Rx Instructions: As directed Primary Care Provider: Araceli Ramos NP Referrals: Araceli Ramos NP, NARROW [employer]AB[employer] CALENDERER-C [Primary Care Provider] - Activity Restrictions/Additional Instructions: Follow-up with pain management as well as for your further GI testing later this week as planned. Disposition Disposition: Home, Self Care
[2023-03-02 21:51] LABS: Absolute Lymphocyte Count 2.31 X10^3/uL (0.83-4.51); Absolute Neutrophil Count 4.7 X10^3/uL (2.0-7.7); Basophil# 0.03 X10^3/uL; Basophil% 0.4 % (0-1); Eosinophil# 0.14 X10^3/uL; Eosinophils% 1.8 % (0-5); Hematocrit 37.2 % (37-47); Hemoglobin 11.7 g/dL (12.0-15.0); Lymphocyte # 2.31 X10^3/ul (0.83-4.51); Lymphocyte % 29.3 % (19-41); Mean Corp Hgb Conc 31.5 g/dL (32-36); Mean Corpuscular Hgb 27.5 pg (27.0-32.0); Mean Corpuscular Volume 87.5 fL (81-99); Mean Platelet Vol. 10.5 fl (6.2-12.0); Monocyte# 0.65 X10^3/uL; Monocyte% 8.2 % (0-10); NRBC Flagged by Analyzer 0 % (0-5); Neutrophil # 4.72 X10^3/uL (2.7-7.7); Neutrophil % 59.9 % (47-70); Platelet Count 332 K/mm3 (150-450); RBC Distribution Width CV 14.2 % (11.6-14.6); RBC Distribution Width SD 45.2 fl (35.1-43.9); Red Blood Count 4.25 M/mm3 (4.2-5.4); White Blood Count 7.9 K/mm3 (4.4-11.0)
[2023-03-02] MEDS: Ketorolac 60 MG/2 ML Vial IM (21:51)
[2023-03-02] MEDS: Mag Hydrox/Al Hydrox/Simeth 30 ML UDC PO (21:57)
[2023-03-02 22:21] LABS: AST(SGOT) 10 U/L (15-37); Alanine Aminotransfer ALT/SGPT 14 U/L (13-56); Albumin, Serum 2.9 g/dL (3.2-5.0); Alkaline Phosphatase 116 U/L (45-117); Anion Gap 9 (5-15); BUN 20 mg/dL (7-18); BUN/Creat Ratio 21.5 RATIO (10-20); Bilirubin, Direct 0.06 mg/dL (0.00-0.30); Calcium,Total 9.8 mg/dL (8.5-10.1); Chloride 104 mmol/L (98-107); Creatinine, Serum 0.93 mg/dL (0.55-1.02); EST Glomerular Filtration Rate 66 mL/min (>60); Est Glom Filt Rate - Afr Amer 80 mL/min (>60); Estimated Creatinine Clearance 47.36 ml/min; Globulin 3.9 g/dL (2.2-4.2); Glucose 219 mg/dL (74-106); Lipase 16 U/L (13-75); Protein, Total 6.8 g/dL (6.4-8.2); Sodium Level 137 mmol/L (136-145)
== END 2023-03-02 22:34 | disposition home or self-care (01) ==
PROVIDERS: Emergency Provider Emergency Medicine; PCP Internal Medicine; Visit Provider Emergency Medicine
DX: G89.29 Other chronic pain (principal); J44.9 Chronic obstructive pulmonary disease, unspecified; E11.9 Type 2 diabetes mellitus without complications; Z79.4 Long term (current) use of insulin; I25.10 Atherosclerotic heart disease of native coronary artery without angina pectoris; I10 Essential (primary) hypertension; E78.00 Pure hypercholesterolemia, unspecified; R10.9 Unspecified abdominal pain; J45.909 Unspecified asthma, uncomplicated; Z79.899 Other long term (current) drug therapy; Z79.51 Long term (current) use of inhaled steroids; Z90.710 Acquired absence of both cervix and uterus; F17.210 Nicotine dependence, cigarettes, uncomplicated
CPT/HCPCS: 80048; 80076; 83690; 85025; 96372; 99284; A4216

== ENCOUNTER → 2023-04-01 | Outpatient (CLI) | payer MEDICAID, SELFPAY ==
[2023-04-01 17:21] LABS: Amphetamine Urine VISTA NEGATIVE (<1000 ng/mL); Barbiturate Urine VISTA NEGATIVE (< 200 ng/mL); Benzodiazepine Urine VISTA NEGATIVE (< 200 ng/mL); Cocaine Urine VISTA NEGATIVE (< 300 ng/mL); Ecstacy Urine VISTA NEGATIVE (< 500 ng/mL); Methadone Urine VISTA NEGATIVE (< 300 ng/mL); PCP Urine VISTA NEGATIVE (< 25 ng/mL); THC Urine VISTA NEGATIVE (< 50 ng/mL); Vista UDS pH Range 7
== END | disposition home or self-care (01) ==
PROVIDERS: PCP Internal Medicine; Referring Provider Anesthesiology Pain Medicine; Visit Provider Anesthesiology Pain Medicine
DX: F11.20 Opioid dependence, uncomplicated (principal)
CPT/HCPCS: 80307

== ENCOUNTER 2023-04-06 11:49 | Emergency (ER) | payer MEDICAID, SELFPAY ==
[2023-04-06 11:50] VITALS: BP 159/93; PULSE 82; RESP 22; TEMP 35.8; O2SAT 100; BMI 29.0
--- NOTE | 2023-04-06 12:03 | EDS_ITS ---
HPI History of Present Illness Chief Complaint: Abd Pain [facility] Medical History Anxiety Arthritis Asthma Back pain Back pain Cardiology follow-up encounter Chronic neck and back pain COPD (chronic obstructive pulmonary disease) Coronary artery calcification seen on CAT scan CPAP (continuous positive airway pressure) dependence Depression Dietary restriction Difficulty balancing Gastric reflux High cholesterol History of arthritis History of echocardiogram History of edema History of pain when walking History of renal disease History of stomach ulcers History of stress test Hypertension Injury of head and neck Insulin dependent diabetes mellitus Knee pain Lumbar stenosis Obesity Osteomyelitis Shortness of breath on exertion Shoulder pain Sleep apnea Smoker Spinal fusion failure Strain of muscle, fascia and tendon of pelvis, initial encounter Strain of right hip and thigh Strain of right inguinal region Strain of unspecified muscles, fascia and tendons at thigh level, right thigh, initial encounter Syncope Thyroid disease Type 2 diabetes mellitus Walker as ambulation aid Wears glasses Home Medications albuterol sulfate 90 mcg/actuation aerosol inhaler 2 puff inhalation Q6H PRN SOB 06/14/21 [History Last Taken 06/14/22] atorvastatin 80 mg tablet 80 mg PO QHS CHOLESTEROL 06/14/21 [History Last Taken 06/13/22] budesonide-formoterol HFA 160 mcg-4.5 mcg/actuation aerosol inhaler (Symbicort) 2 puff inhalation BID ASTHMA 06/14/21 [History Last Taken 12/25/21] ipratropium 0.5 mg-albuterol 3 mg (2.5 mg base)/3 mL nebulization soln 3 ml inhalation 4X/DAY PRN sob 11/27/21 [History Last Taken 11/25/21] loratadine 10 mg tablet 10 mg PO DAILY allergies 11/27/21 [History Last Taken 02/21/22] acetaminophen 500 mg tablet 1,000 mg PO Q8H PRN Pain 02/22/22 [History Last Taken 06/14/22] cholecalciferol (vitamin D3) 50 mcg (2,000 unit) capsule 50 mcg PO DAILY #90 caps 08/15/22 [Rx Last Taken Unknown] lisinopril 40 mg tablet 40 mg PO DAILY 10/10/22 [History Last Taken Unknown] ondansetron 4 mg disintegrating tablet 4 mg PO Q8H PRN PRN Nausea #10 tabs 10/13/22 [Rx Last Taken Unknown] gabapentin 300 mg capsule 600 mg PO .COMPLEX 11/15/22 [History Last Taken Unkn own] flash glucose sensor (FreeStyle Sandra 14 Day Sensor kit) #2 ea 01/29/23 [Rx Last Taken Unknown] insulin glargine U-300 conc 300 unit/mL (3 mL) subcutaneous pen (Toujeo Max U- 300 SoloStar) 20 unit (0.0667 mL) subcut DAILY #6 mL 04/02/23 [Rx Last Taken Unknown] insulin lispro 100 unit/mL subcutaneous pen See Rx Instructions subcut TID #45 mL 04/02/23 [Rx Last Taken Unknown] pen needle, diabetic 32 gauge x 5/32 (BD Ultra-Fine Sissy Pen Needle) #150 ea 04/02/23 [Rx Last Taken Unknown] Allergy/AdvReac Type Severity Reaction Status Date / Time duloxetine [From Cymbalta] Allergy Unknown Verified 02/23/23 21:12 pregabalin [From Lyrica] Allergy Unknown Verified 02/23/23 21:12 Penicillins AdvReac Mild leaves a Verified 02/23/23 21:12 bad taste in her mouth. acetaminophen AdvReac Vomiting Verified 02/23/23 21:12 aspirin AdvReac Upset Verified 02/23/23 21:12 Stomach NSAIDS (Non-Steroidal AdvReac Upset Verified 02/23/23 21:12 Anti-Inflamma Stomach Family History Father Cancer Unclear type. Mother Lung cancer Concurrent tobacco use history. Surgical History History of ankle surgery History of History of carpal tunnel release History of hysterectomy History of open reduction and internal fixation (ORIF) procedure History of partial thyroidectomy Social History household members: none Smoking Status: Current every day smoker tobacco type: cigarettes alcohol intake: never substance use type: does not use EXAM Physical Exam Const Vital Signs: 04/06/23 11:50 Temperature 96.5 F L Temperature Source Temporal Pulse Rate 82 Respiratory Rate 22 H Blood Pressure 159/93 H Blood Pressure Mean 115 Pulse Ox 100 Oxygen Delivery Method Room Air MDM MDM MDM Narrative Medical decision making narrative: HISTORY OF PRESENT ILLNESS: 57-year-old female who with abdominal pain for 2 days. Also notes chronic back pain. She states pain is located everywhere. Notes nausea, no vomiting. No urinary complaints. No vaginal bleeding. Last BM yesterday no melena or hematochezia. Patient denies any saddle anesthesia, urinary retention, bowel or bladder incontinence, lower extremity weakness, fever or IV drug use, no recent spinal manipulation or surgery, no recent urinary catheterization. REVIEW OF SYSTEMS: Pertinent positives: Abdominal pain, chronic back pain Pertinent negatives: Vomiting, vaginal bleeding, frequency, urgency, dysuria, fo edwin numbness or weakness, bowel or bladder incontinence. PHYSICAL EXAM: Nursing triage notes reviewed, Vital signs reviewed Constitutional: please see [facility] HENT: MMM Eyes: Pupils equal round and reactive to light, Extraocular muscles intact Neck: No stridor, no JVD, full neck ROM Lungs: Clear to auscultation, No wheezing or rales. No increased work of breathing, no conversational dyspnea, no accessory muscle use, no nasal flaring. No respiratory distress noted Heart: Regular rate and rhythm, No murmurs, No rubs and No gallops, 2+ distal pulses (radial, femoral, posterior tibial) in all extremities Abdomen: Soft, there is subjective tenderness throughout the abdomen. But there is no rigidity, rebound or guarding, no obvious peritoneal signs, no palpable pulsatile abdominal masses, no auscultated abdominal bruit : No CVAT Extremities: No edema Neuro: Intact sensation L1-S1 dermatomal distributions. Intact 5/5 strength in hip flexion (T12-L3). Knee extension (L2-L4). Ankle dorsiflexion (L4-L5). Ankle plantar flexion (S1). Great toe extension (L5). 2+ patellar and Achilles DTRs. Skin: No rash or lesions noted MEDICAL DECISION MAKING: Chief Complaint: Abdominal pain External records reviewed: CT scan from January 2023 shows persistent gastric wall thickening concerning for gastritis Factors affecting care: Constipation, hypertension, hyperlipidemia, diabetes, hypertension Social determinants of health: Current everyday smoker ALL IMAGES (IF OBTAINED) HAVE BEEN PERSONALLY REVIEWED AND INTERPRETED BY MYSELF. [facility] Narrative: Patient was hemodynamically stable, afebrile, nontoxic-appearing abdominal exam was benign however the patient did report diffuse tenderness. I considered the following differential diagnosis: AAA, small bowel obstruction, abdominal perforation, appendicitis, pancreatitis, hepatobiliary pathology (acute cholecystitis), mesenteric ischemia, abnormalities such as ovarian pathology, PID. I obtained labs. I gave normal saline for fluid resuscitation, Zofran for nausea, Toradol and Pepcid for symptomatic relief. Labs without evidence of significant electrolyte abnormalities, no anion gap distress endorgan hypoperfusion, no evidence of pedal bleed pathology. No evidence of pancreatitis. CBC without evidence leukocytosis suggestive of systemic inflammation. No severe anemia. I see nothing that would suggest an acute abdomen at this time. Based on history physical exam, risk factors, I have a low for bowel obstruction, incarcerated hernia, acute pancreatitis, intra-abdominal abscess, perforated viscus, diverticulitis, cholecystitis, appendicitis, PID, ovarian torsion, ectopic and tubo-ovarian abscess is very low. There is no evidence of peritonitis sepsis or toxicity at this time. I feel the patient can be managed as an outpatient with follow-up with her primary physician in the next 24 to 48 hours or soon as possible. Instructions have been given for the patient to return to the ED for worsening pain, anorexia, high fevers, intractable vomiting or bleeding. The patient and/or family, caregivers express understanding. The patient and/or family, caregivers agrees with the plan. Shared decision making: I will have a discussion with the patient and or visitors regarding risk/benefits of further testing or admission. They will be made aware of of the risk/benefits inherent in this decision they will be given the opportunity to voice understanding. Total critical care time today provided was at least 0 minutes. This excludes separately billable procedures. Critical care time (if documented) is secondary to the patient having high probability of clinically significant/life threatening deterioration in the patient's condition which required my urgent intervention. Lab Data Attestation: I reviewed the patient's lab results. Labs: Laboratory Results - last 24 hr 04/06/23 12:31 WBC 8.1 RBC 4.55 Hgb 12.7 Hct 38.5 MCV 84.6 MCH 27.9 MCHC 33.0 RDW Std Deviation 46.5 H RDW Coeff of Yudelka 14.9 H Plt Count 291 MPV 10.7 Sodium 135 L Potassium 4.0 Chloride 104 Carbon Dioxide 25.0 Anion Gap 6 BUN 17 Creatinine 0.88 Estim Creat Clear Calc 50.05 Est GFR (MDRD) Af Amer 85 Est GFR (MDRD) Non-Af 70 BUN/Creatinine Ratio 19.4 Glucose 224 H Calcium 9.7 Total Bilirubin 0.40 Direct Bilirubin 0.12 AST 14 L ALT 16 Alkaline Phosphatase 97 Total Protein 6.9 Albumin 3.0 L Globulin 3.9 Lipase 14 Treatment and Re-Evaluation :: Prior to patient reevaluation patient eloped from the emergency department. She was unable to receive repeat abdominal exam, she received instructions about further care, follow-up and strict return precautions. Discharge Plan Triage Chief Complaint: Abd Pain ED Provider: Charanjit Snell Dx/Rx/DC Orders Clinical Impression: Eloped from emergency department, Abdominal pain Instructions: Abdominal Pain Prescriptions: No Action atorvastatin 80 mg tablet 80 mg PO QHS budesonide-formoterol [Symbicort] 160-4.5 mcg/actuation HFA aerosol inhaler 2 puff inhalation BID albuterol sulfate 90 mcg/actuation HFA aerosol inhaler 2 puff inhalation Q6H PRN (Reason: SOB) cholecalciferol (vitamin D3) 50 mcg (2,000 unit) capsule 50 mcg PO DAILY Qty: 90 3RF gabapentin 300 mg capsule 600 mg PO .COMPLEX Rx Instructions: 600 mg orally QID; lisinopril 40 mg tablet 40 mg PO DAILY ipratropium-albuterol 0.5 mg-3 mg(2.5 mg base)/3 mL solution for nebulization 3 ml inhalation 4X/DAY PRN (Reason: sob) loratadine 10 mg tablet 10 mg PO DAILY acetaminophen 500 mg tablet 1,000 mg PO Q8H PRN (Reason: Pain) ondansetron 4 mg tablet,disintegrating 4 mg PO Q8H PRN PRN (Reason: Nausea) Qty: 10 0RF (DME) FreeStyle Sandra 14 Day Sensor Kit See Rx Instructions .Route Qty: 2 5RF Rx Instructions: As directed (DME) pen needle, diabetic [BD Ultra-Fine Sissy Pen Needle] 32 gauge x 5/32 needle See Rx Instructions .ROUTE .MEDSUPPLY Qty: 150 3RF Rx Instructions: 5 times daily Toujeo Max U-300 SoloStar 300 unit/mL (3 mL) insulin pen 20 unit subcut DAILY Qty: 6 1RF insulin lispro 100 unit/mL insulin pen See Rx Instructions subcut TID MDD 65 Qty: 45 0RF Rx Instructions: 16 u TIDCM, 7 u snacks +SSI subcutaneously three times a day; Primary Care Provider: Araceli Ramos NP Referrals: Araceli Ramos NP, [facility] [Primary Care Provider] - Disposition Disposition: Home, Self Care Discharge Date/Time: 04/06/23 13:29
[2023-04-06] MEDS: Ondansetron 4 MG/2 ML Vial IV (12:41)
[2023-04-06] MEDS: Ketorolac 15 MG/ML Vial IV (12:41)
[2023-04-06] MEDS: 0.9% Normal Saline 1,000 ML 1000 ML IV (12:41)
[2023-04-06 12:57] LABS: AST(SGOT) 14 U/L (15-37); Alanine Aminotransfer ALT/SGPT 16 U/L (13-56); Alkaline Phosphatase 97 U/L (45-117); Anion Gap 6 (5-15); BUN 17 mg/dL (7-18); BUN/Creat Ratio 19.4 RATIO (10-20); Bilirubin, Direct 0.12 mg/dL (0.00-0.30); Calcium,Total 9.7 mg/dL (8.5-10.1); Chloride 104 mmol/L (98-107); Creatinine, Serum 0.88 mg/dL (0.55-1.02); EST Glomerular Filtration Rate 70 mL/min (>60); Est Glom Filt Rate - Afr Amer 85 mL/min (>60); Estimated Creatinine Clearance 50.05 ml/min; Globulin 3.9 g/dL (2.2-4.2); Glucose 224 mg/dL (74-106); Lipase 14 U/L (13-75); Protein, Total 6.9 g/dL (6.4-8.2); Sodium Level 135 mmol/L (136-145)
[2023-04-06] MEDS: Famotidine 200 MG/20 ML MDV 20 MG in 0.9% Normal Saline (Pres. free 8 ML 300 MG IV (13:09)
[2023-04-06 13:10] LABS: Hematocrit 38.5 % (37-47); Hemoglobin 12.7 g/dL (12.0-15.0); Mean Corpuscular Hgb 27.9 pg (27.0-32.0); Mean Corpuscular Volume 84.6 fL (81-99); Mean Platelet Vol. 10.7 fl (6.2-12.0); Platelet Count 291 K/mm3 (150-450); RBC Distribution Width CV 14.9 % (11.6-14.6); RBC Distribution Width SD 46.5 fl (35.1-43.9); Red Blood Count 4.55 M/mm3 (4.2-5.4); White Blood Count 8.1 K/mm3 (4.4-11.0)
--- NOTE | 2023-04-06 13:27 | ED.RN ---
PT WANTED TO LEAVE. RICHARD NIX TOOK IV OUT AND NOTIFIED THIS RN. DR. GREEN ALSO NOTIFIED
== END 2023-04-06 13:29 | disposition home or self-care (01) ==
PROVIDERS: Emergency Provider Emergency Medicine; PCP Internal Medicine; Visit Provider Emergency Medicine
DX: R10.9 Unspecified abdominal pain (principal); J44.9 Chronic obstructive pulmonary disease, unspecified; Z79.4 Long term (current) use of insulin; E11.9 Type 2 diabetes mellitus without complications; I25.10 Atherosclerotic heart disease of native coronary artery without angina pectoris; E78.00 Pure hypercholesterolemia, unspecified; I10 Essential (primary) hypertension; J45.909 Unspecified asthma, uncomplicated; Z79.899 Other long term (current) drug therapy; Z79.51 Long term (current) use of inhaled steroids; Z90.710 Acquired absence of both cervix and uterus; F17.210 Nicotine dependence, cigarettes, uncomplicated
CPT/HCPCS: 80048; 80076; 83690; 85027; 96361; 96374; 96375; 99283; J7030; A4216; J2405; J3490

== ENCOUNTER 2023-04-07 10:10 | Emergency (ER) | payer MEDICAID, SELFPAY ==
[2023-04-07 10:12] VITALS: BP 168/100; PULSE 95; RESP 18; TEMP 36; O2SAT 100; BMI 29.0
--- NOTE | 2023-04-07 10:21 | EKG12_ITS ---
Test Reason : ABD PAIN Blood Pressure : / mmHG Vent. Rate : 088 BPM Atrial Rate : 088 BPM P-R Int : 196 ms QRS Dur : 080 ms QT Int : 382 ms P-R-T Axes : 094 -43 034 degrees QTc Int : 462 ms Normal sinus rhythm Left axis deviation Possible Inferior infarct , age undetermined Abnormal ECG Confirmed by EZIO CRABTREE, AMY ([id number]), sound editor DIANA HAYES ([id number]) on 04/08/2023 11:00:09 AM Referred By: Confirmed By:AMY HOLGUIN MD
--- NOTE | 2023-04-07 10:21 | CT_ITS ---
STUDY: CT ABDOMEN AND PELVIS WITH CONTRAST REASON FOR EXAM: Female, 57 years old. 3-4 day history of abdominal pain and nausea. RADIATION DOSAGE (If Supplied By Facility): CTDIvol = ( 10.72 ) mGy, DLP = ( 693.82 ) mGycm TECHNIQUE: Transaxial images were obtained from the dome of the diaphragm to the symphysis pubis without oral contrast. IV 100mL Isovue-300 was administered. Sagittal and coronal images were reconstructed. Individualized dose optimization techniques were used for this CT. COMPARISON: Comparison is made with prior study dated January 27, 2023. FINDINGS: The visualized lung bases are unremarkable. The visualized portions of the heart are within normal limits. Normal liver. The gallbladder is mildly distended. Normal spleen. There is diffuse atrophy of the pancreas. Stable bilateral hypodense nodules in the adrenal glands suggestive of bilateral adenomas. Stable subcentimeter cyst in the lower medial pole of the right kidney. Normal left kidney. There is a small hiatal hernia. Once again, there is diffuse thickening of the gastric wall although the stomach is not adequately distended. Normal small intestine. Normal colon. The appendix is visualized and appears normal. Normal abdominal aorta. Normal inferior vena cava. There is borderline retroperitoneal lymphadenopathy with enlarged nodes no greater than 10mm in the short axis diameter. Normal urinary bladder. Normal abdominal wall. There are degenerative changes of the lower lumbar spine. Prosthetic disc placement at the L4-L5 level. Stable mild loss of height of the superior endplate of the T12 vertebrae. CT/Abdomen/Pelvis W IV Cont ONLY IMPRESSION: The gallbladder is mildly distended. No obvious gallstones are seen. Stable nodularity in both adrenal glands suggestive of bilateral adenomas. Electronically Signed: Joaquin Rodney MD at 12:28 EDT ,
--- NOTE | 2023-04-07 10:22 | ED.VIS.GI ---
HPI HPI - GI History of Present Illness Chief Complaint: Abd Pain Detail of Chief Complaint: Abdominal pain Informant: patient Abdominal Pain/Flank Pain Current Severity: 06/17 Narrative Narrative: Patient presents to the emergency department complaint of severe abdominal pain for the last 3 to 4 days. Patient has had nausea but no vomiting. Patient was seen in the emergency department had blood work yesterday but no imaging. She denies fevers. She denies urinary symptoms. She describes the pain is upper abdomen radiating to her back. Also tells me she has a compression fracture at T12. Patient has had prior hysterectomy. Prior similar symptoms: No PFSH PFSH Medical History Anxiety Arthritis Asthma Back pain Back pain Cardiology follow-up encounter Chronic neck and back pain COPD (chronic obstructive pulmonary disease) Coronary artery calcification seen on CAT scan CPAP (continuous positive airway pressure) dependence Depression Dietary restriction Difficulty balancing Gastric reflux High cholesterol History of arthritis History of echocardiogram History of edema History of pain when walking History of renal disease History of stomach ulcers History of stress test Hypertension Injury of head and neck Insulin dependent diabetes mellitus Knee pain Lumbar stenosis Obesity Osteomyelitis Shortness of breath on exertion Shoulder pain Sleep apnea Smoker Spinal fusion failure Strain of muscle, fascia and tendon of pelvis, initial encounter Strain of right hip and thigh Strain of right inguinal region Strain of unspecified muscles, fascia and tendons at thigh level, right thigh, initial encounter Syncope Thyroid disease Type 2 diabetes mellitus Walker as ambulation aid Wears glasses Home Medications albuterol sulfate 90 mcg/actuation aerosol inhaler 2 puff inhalation Q6H PRN SOB 06/14/21 [History Last Taken 06/14/22] atorvastatin 80 mg tablet 80 mg PO QHS CHOLESTEROL 06/14/21 [History Last Taken 06/13/22] budesonide-formoterol HFA 160 mcg-4.5 mcg/actuation aerosol inhaler (Symbicort) 2 puff inhalation BID ASTHMA 06/14/21 [History Last Taken 12/25/21] ipratropium 0.5 mg-albuterol 3 mg (2.5 mg base)/3 mL nebulization soln 3 ml inhalation 4X/DAY PRN sob 11/27/21 [History Last Taken 11/25/21] loratadine 10 mg tablet 10 mg PO DAILY allergies 11/27/21 [History Last Taken 02/21/22] acetaminophen 500 mg tablet 1,000 mg PO Q8H PRN Pain 02/22/22 [History Last Taken 06/14/22] cholecalciferol (vitamin D3) 50 mcg (2,000 unit) capsule 50 mcg PO DAILY #90 caps 08/15/22 [Rx Last Taken Unknown] lisinopril 40 mg tablet 40 mg PO DAILY 10/10/22 [History Last Taken Unknown] ondansetron 4 mg disintegrating tablet 4 mg PO Q8H PRN PRN Nausea #10 tabs 10/13/22 [Rx Last Taken Unknown] gabapentin 300 mg capsule 600 mg PO .COMPLEX 11/15/22 [History Last Taken Unknown] flash glucose sensor (FreeStyle Sandra 14 Day Sensor kit) #2 ea 01/29/23 [Rx Last Taken Unknown] insulin glargine U-300 conc 300 unit/mL (3 mL) subcutaneous pen (Toujeo Max U-300 SoloStar) 20 unit (0.0667 mL) subcut DAILY #6 mL 04/02/23 [Rx Last Taken Unknown] insulin lispro 100 unit/mL subcutaneous pen See Rx Instructions subcut TID #45 mL 04/02/23 [Rx Last Taken Unknown] pen needle, diabetic 32 gauge x 5/32 (BD Ultra-Fine Sissy Pen Needle) #150 ea 04/02/23 [Rx Last Taken Unknown] dicyclomine 10 mg capsule 20 mg (2 x 10 mg) PO TIDAC #20 CAPSULES 04/07/23 [Rx Last Taken Unknown] ondansetron 4 mg disintegrating tablet 4 mg PO Q8H PRN PRN Nausea #10 tabs 04/07/23 [Rx Last Taken Unknown] Allergy/AdvReac Type Severity Reaction Status Date / Time duloxetine [From Cymbalta] Allergy Unknown Verified 04/07/23 10:11 pregabalin [From Lyrica] Allergy Unknown Verified 04/07/23 10:11 Penicillins AdvReac Mild leaves a Verified 04/07/23 10:11 bad taste in her mouth. acetaminophen AdvReac Vomiting Verified 04/07/23 10:11 aspirin AdvReac Upset Verified 04/07/23 10:11 Stomach NSAIDS (Non-Steroidal AdvReac Upset Verified 04/07/23 10:11 Anti-Inflamma Stomach Family History Father Cancer Unclear type. Mother Lung cancer Concurrent tobacco use history. Surgical History History of ankle surgery History of History of carpal tunnel release History of hysterectomy History of open reduction and internal fixation (ORIF) procedure History of partial thyroidectomy Social History household members: none Smoking Status: Current every day smoker tobacco type: cigarettes alcohol intake: never substance use type: does not use ROS ROS ED Review of Systems ROS Unobtainable: other Constitutional Constitutional ED: Reports lethargy; Denies chills, fever(s), sweats or weight loss Eyes Eyes: Denies blurry vision, change in vision or diplopia ENT ENT ED: Denies rhinorrhea or sore throat Cardiovascular Cardiovascular: Denies chest pain, orthopnea or racing heartbeat Respiratory/Chest Respiratory/Chest: Denies cough, dyspnea, dyspnea on exertion, orthopnea or sputum Gastrointestinal Gastrointestinal: Reports abdominal pain and nausea; Denies diarrhea or vomiting Genitourinary Genitourinary ED: Denies dysuria, hematuria or urinary frequency Musculoskeletal Musculoskeletal: Denies arthralgias, back pain, myalgias or neck pain Integumentary Denies abscess, Abrasions or rash Neurologic Neurologic: Denies headache(s) or weakness Psychiatric Psychiatric: Denies anxiety, depression or suicidal thoughts Endocrine Endocrinology: Denies polydipsia, polyphagia or polyuria Hematologic/Lymphatic Hematologic/Lymphatic: Denies easy bleeding, easy bruising or lymphadenopathy Allergic/Immunologic Allergic/Immunologic ED: Denies mouth swelling, tongue swelling or urticaria EXAM Physical Exam Const Vital Signs: 04/07/23 10:12 Temperature 96.8 F L Temperature Source Temporal Pulse Rate 95 Respiratory Rate 18 Blood Pressure 168/100 H Blood Pressure Mean 122 Pulse Ox 100 Oxygen Delivery Method Room Air Positive well nourished and well developed General Appearance ED: well developed and NAD HEENT Reports TM's clear and moist mucous membranes normocephalic and atraumatic; Negative for trauma or tenderness Tympanic Membrane ED: Yes TM's clear Eyes PERRL and EOMs intact bilaterally General Eye ED: Negative for pale conjunctiva or scleral icterus Neck no lymphadenopathy, supple and no JVD General: Negative for tenderness Chest Wall inspection of chest normal and palpation of chest normal Chest: Negative for tenderness Resp normal respiratory effort and clear to auscultation bilaterally Effort and Inspection: Negative for respiratory distress or pain with movement Auscultation: Negative for rhonchi, wheezes or diminished lung sounds Cardio regular rate, regular rhythm, S1 normal heart sound, S2 normal heart sound and no murmurs Peripheral Pulses: pulses 2+ throughout GI normal to inspection, nondistended, normoactive bowel sounds, soft to palpation, non-distended and no masses GI Narrative: Diffuse tenderness on exam. Patient with guarding. She really does not allow good exam. No rigidity noted. Back/Spine no CVA tenderness and no thoracic nor lumbar tenderness Extremity normal to inspection General Extremety ED: Negative for edema General Extremity: Negative for edema Neuro oriented x3, CN's II-XII intact bilaterally, no sensory deficits noted and gait normal Sensorium / Orientation: awake, alert, oriented to person, oriented to place and oriented to time Motor Exam: strength 5/5 throughout and strength abnormal Psych mental status grossly normal Skin no rashes or lesions noted and no wounds MDM MDM MDM Narrative Medical decision making narrative: IV line established on arrival. Patient was medicated with morphine and Zofran. In the differential would be gallbladder disease versus peptic ulcer disease versus bowel obstruction versus ischemic colitis versus other etiology. Patient will have lab work-up obtained and CT scan with IV contrast to evaluate further. Patient had labs obtained showed an elevated white count of 13.4 with hemoglobin of 13 and platelet count of 365. Chemistries unremarkable. LFTs unremarkable. Lipase was normal at 13. EKG showed a sinus rhythm with a ventricular rate of 88 bpm with no acute ST segment changes. Troponin was normal. Patient had a CT scan with IV contrast that showed a distended gallbladder otherwise no acute disease process. Urinalysis was unremarkable. Patient initially was medicated with morphine and Zofran. Subsequently found out patient was here yesterday for similar pain and she has had significant work-up for this pain that she has had chronically for months. She has had recent HIDA scan as well as gastric emptying studies that were unremarkable. Patient is in pain management with Dr. Wilson. I will write her prescription for Bentyl and Zofran. Patient advised to follow-up with pain management and follow-up with her general surgeon at the [facility] if symptoms persist. No significant abnormalities today or emergent/surgical disease process noted. Lab Data Labs: Laboratory Results - last 24 hr 04/07/23 04/07/23 11:10 12:40 WBC 13.4 H RBC 4.93 Hgb 13.5 Hct 41.8 MCV 84.8 MCH 27.4 MCHC 32.3 RDW Std Deviation 46.0 H RDW Coeff of Yudelka 14.8 H Plt Count 365 MPV 10.8 Immature Gran % (Auto) 0.500 Neut % (Auto) 80.1 H Lymph % (Auto) 14.2 L [place] % (Auto) 4.8 Eos % (Auto) 0.2 Baso % (Auto) 0.2 Absolute Neuts (auto) 10.7 H Absolute Lymphs (auto) 1.91 Nucleated RBC % 0 Sodium 133 L Potassium 4.0 Chloride 103 Carbon Dioxide 21.0 Anion Gap 9 BUN 17 Creatinine 1.00 Estim Creat Clear Calc 44.05 Est GFR (MDRD) Af Amer 74 Est GFR (MDRD) Non-Af 61 BUN/Creatinine Ratio 17.1 Glucose 238 H Lactic Acid 1.3 Calcium 10.1 Total Bilirubin 0.70 AST 17 ALT 19 Alkaline Phosphatase 119 H Troponin I High Sens 26 Total Protein 7.8 Albumin 3.3 Globulin 4.5 H Albumin/Globulin Ratio 0.7 L Lipase 13 Urine Color Yellow Urine Clarity Clear Urine pH 7.0 Ur Specific [place] 1.010 Urine Protein 500 H Urine Glucose (UA) 100 H Urine Ketones 15 H Urine Occult Blood 25 H Urine Nitrite Negative Urine Bilirubin Negative Urine Urobilinogen Normal Ur Leukocyte Esterase Negative Urine RBC 0 SEEN Urine WBC 0 SEEN Ur Squamous Epith Cells 0-5 SEEN Urine Bacteria 0 SEEN Urine Mucus 0 SEEN Radiography Diagnostic Testing: Clinical Impression(s) from Imaging Studies Abdomen/Pelvis CT 04/07/23 10:21 IMPRESSION: The gallbladder is mildly distended. No obvious gallstones are seen. Stable nodularity in both adrenal glands suggestive of bilateral adenomas. Electronically Signed: Joaquin Rodney MD at 12:28 EDT , EKG Initial EKG: Attestation: I personally reviewed and interpreted this EKG as follows: Comments: Sinus rhythm with a rate of 88 bpm with no acute ST segment changes Discharge Plan Triage Chief Complaint: Abd Pain ED Provider: Elías Johansen Dx/Rx/DC Orders Clinical Impression: Abdominal pain Instructions: ED Abdominal Pain Unkn Cause Fem Prescriptions: New ondansetron [ondansetron] 4 mg tablet,disintegrating 4 mg PO Q8H PRN PRN (Reason: Nausea) Qty: 10 0RF dicyclomine 10 mg capsule 20 mg PO TIDAC Qty: 20 0RF No Action atorvastatin 80 mg tablet 80 mg PO QHS budesonide-formoterol [Symbicort] 160-4.5 mcg/actuation HFA aerosol inhaler 2 puff inhalation BID albuterol sulfate 90 mcg/actuation HFA aerosol inhaler 2 puff inhalation Q6H PRN (Reason: SOB) cholecalciferol (vitamin D3) 50 mcg (2,000 unit) capsule 50 mcg PO DAILY Qty: 90 3RF gabapentin 300 mg capsule 600 mg PO .COMPLEX Rx Instructions: 600 mg orally QID; lisinopril 40 mg tablet 40 mg PO DAILY ipratropium-albuterol 0.5 mg-3 mg(2.5 mg base)/3 mL solution for nebulization 3 ml inhalation 4X/DAY PRN (Reason: sob) loratadine 10 mg tablet 10 mg PO DAILY acetaminophen 500 mg tablet 1,000 mg PO Q8H PRN (Reason: Pain) ondansetron 4 mg tablet,disintegrating 4 mg PO Q8H PRN PRN (Reason: Nausea) Qty: 10 0RF (DME) FreeStyle Sandra 14 Day Sensor Kit See Rx Instructions .Route Qty: 2 5RF Rx Instructions: As directed (DME) pen needle, diabetic [BD Ultra-Fine Sissy Pen Needle] 32 gauge x 5/32 needle See Rx Instructions .ROUTE .MEDSUPPLY Qty: 150 3RF Rx Instructions: 5 times daily Toujeo Max U-300 SoloStar 300 unit/mL (3 mL) insulin pen 20 unit subcut DAILY Qty: 6 1RF insulin lispro 100 unit/mL insulin pen See Rx Instructions subcut TID MDD 65 Qty: 45 0RF Rx Instructions: 16 u TIDCM, 7 u snacks +SSI subcutaneously three times a day; Primary Care Provider: Araceli Ramos NP Referrals: Anthony Fitzgerald MD [Med Staff - Active Staff] - 3-5 Days Araceli Ramos NP, [facility] [Primary Care Provider] - 3-5 Days Disposition Disposition: Home, Self Care
[2023-04-07] MEDS: 0.9% Normal Saline 1,000 ML 125 ML IV (11:06)
[2023-04-07] MEDS: Ondansetron 4 MG/2 ML Vial IV (11:07)
[2023-04-07] MEDS: Morphine 4 MG/ML Syringe IV (11:08)
[2023-04-07 11:20] LABS: Absolute Lymphocyte Count 1.91 X10^3/uL (0.83-4.51); Absolute Neutrophil Count 10.7 X10^3/uL (2.0-7.7); Basophil# 0.03 X10^3/uL; Basophil% 0.2 % (0-1); Eosinophil# 0.03 X10^3/uL; Eosinophils% 0.2 % (0-5); Hematocrit 41.8 % (37-47); Hemoglobin 13.5 g/dL (12.0-15.0); Lymphocyte # 1.91 X10^3/ul (0.83-4.51); Lymphocyte % 14.2 % (19-41); Mean Corp Hgb Conc 32.3 g/dL (32-36); Mean Corpuscular Hgb 27.4 pg (27.0-32.0); Mean Corpuscular Volume 84.8 fL (81-99); Mean Platelet Vol. 10.8 fl (6.2-12.0); Monocyte# 0.64 X10^3/uL; Monocyte% 4.8 % (0-10); NRBC Flagged by Analyzer 0 % (0-5); Neutrophil # 10.74 X10^3/uL (2.7-7.7); Neutrophil % 80.1 % (47-70); Platelet Count 365 K/mm3 (150-450); RBC Distribution Width CV 14.8 % (11.6-14.6); Red Blood Count 4.93 M/mm3 (4.2-5.4); White Blood Count 13.4 K/mm3 (4.4-11.0)
--- NOTE | 2023-04-07 11:32 | ED.RN ---
patient received morphine at 11:08 and is now requesting more narcotics for pain
[2023-04-07 11:36] LABS: ALB/GLOB Ratio 0.7 RATIO (0.9-2.4); AST(SGOT) 17 U/L (15-37); Alanine Aminotransfer ALT/SGPT 19 U/L (13-56); Albumin, Serum 3.3 g/dL (3.2-5.0); Alkaline Phosphatase 119 U/L (45-117); Anion Gap 9 (5-15); BUN 17 mg/dL (7-18); BUN/Creat Ratio 17.1 RATIO (10-20); Calcium,Total 10.1 mg/dL (8.5-10.1); Chloride 103 mmol/L (98-107); EST Glomerular Filtration Rate 61 mL/min (>60); Est Glom Filt Rate - Afr Amer 74 mL/min (>60); Estimated Creatinine Clearance 44.05 ml/min; Globulin 4.5 g/dL (2.2-4.2); Glucose 238 mg/dL (74-106); Lipase 13 U/L (13-75); Protein, Total 7.8 g/dL (6.4-8.2); Sodium Level 133 mmol/L (136-145); Troponin-I HS 26 pg/mL (3.0-54.0)
[2023-04-07 11:41] LABS: Lactic Acid 1.3 mmol/L (0.4-1.9)
--- NOTE | 2023-04-07 12:26 | ED.RN ---
Pt. requesting more pain medicine, update pt. that she would not be receiving anymore for pain until her CT results come back
[2023-04-07 12:43] LABS: Bacteria 0 SEEN /hpf (None Seen); Mucous, Urine 0 SEEN /hpf (<or=2+); Red Blood Cells-Urine 0 SEEN /hpf (0-5); White Blood Cells 0 SEEN /hpf (0-5)
[2023-04-07 12:47] LABS: Color, Urine Yellow (Yellow); Glucose, Dipstick 100 mg/dl (Normal); Ketone-Dipstick 15 mg/dl (Negative); Leukocyte Esterase-Dipstick Negative /ul (Negative); Nitrite-Dipstick Negative (Negative); Occult Blood-Urine 25 /ul (Negative); Protein-Dipstick 500 mg/dl (Negative); Urine Bilirubin Dipstick Negative (Negative); Urine Clarity Clear (Clear); Urine Urobilinogen Normal (Normal)
[2023-04-07 12:52] LABS: Squamous Epithelial Cells - UA 0-5 SEEN /hpf (5-10)
--- NOTE | 2023-04-07 13:02 | ED.RN ---
pt. left without paperwork and attempted to leave with PIV. Liz MARTIN stopped pt. in hallway and reminded her IV needed to be removed. PIV removed by liz and pt. left
== END 2023-04-07 13:03 | disposition home or self-care (01) ==
PROVIDERS: Emergency Provider Emergency Medicine; PCP Internal Medicine; Visit Provider Emergency Medicine
DX: R10.9 Unspecified abdominal pain (principal); J44.9 Chronic obstructive pulmonary disease, unspecified; E11.9 Type 2 diabetes mellitus without complications; Z79.4 Long term (current) use of insulin; I10 Essential (primary) hypertension; R11.0 Nausea; E78.00 Pure hypercholesterolemia, unspecified; Z90.710 Acquired absence of both cervix and uterus; Z99.89 Dependence on other enabling machines and devices; Z79.899 Other long term (current) drug therapy; Z79.51 Long term (current) use of inhaled steroids; E89.0 Postprocedural hypothyroidism; F17.210 Nicotine dependence, cigarettes, uncomplicated
CPT/HCPCS: 74177; 80053; 81001; 83605; 83690; 84484; 85025; 93005; 96372; 99285; J7030; Q9967; A4216; J2405

== ENCOUNTER → 2023-05-03 | Outpatient (CLI) | payer MEDICAID, SELFPAY ==
--- NOTE | 2023-05-03 08:09 | MRI_ITS ---
STUDY: MRI THORACIC SPINE WITHOUT CONTRAST REASON FOR EXAM: Female, 57 years old. COMPRESSION FX TECHNIQUE: Standardized fat and water weighted pulse sequences were obtained in the sagittal and axial planes. COMPARISON: None. FINDINGS: Normal kyphosis of the thoracic spine. There is no substantial scoliosis. Mild loss of height and marrow edema at the T2 vertebral body consistent with an acute mild compression fracture. No retropulsion into the spinal canal. Moderate loss of height and marrow edema of the T6 vertebral body consistent with an acute compression fracture. No retropulsion into the spinal canal. Mild loss of height without marrow edema of the L1 vertebral body consistent with chronic mild wedge compression fracture. T1-2, T2-3, T3-4, T4-5, T5-6, T6-7, T7-8, T8-9, T9-10, T10-11, T11-12: Normal endplates. Normal disc hydration, heights and morphology of the corresponding intervertebral discs. Normal central canal and intervertebral neural foramina at the corresponding levels. Normal visualized thoracic cord. Normal conus medullaris that terminates at the L1/L2.. The soft tissue structures are unremarkable. MRI/Spine Thoracic (Routine) IMPRESSION: Acute mild compression fracture of T2 and acute moderate compression fracture of T6 without retropulsion into the spinal canal or cord compression. Electronically Signed: Jeremiah Lau MD at 19:36 EDT ,
--- NOTE | 2023-05-03 08:09 | MRI_ITS ---
We are attempting to reach an attending provider to discuss findings. An addendum with communication details will be sent when the communication is complete. STUDY: MRI CERVICAL SPINE WITHOUT CONTRAST REASON FOR EXAM: Female, 57 years old. RADICULOPATHY TECHNIQUE: Standardized fat and water weighted pulse sequences were obtained in the sagittal and axial planes. COMPARISON: None FINDINGS: Normal foramen magnum and brainstem-cervical cord junction. Normal craniovertebral junction. Normal anterior atlantoaxial articulation. Normal odontoid process. Normal cervical lordosis. Normal vertebral bodies and posterior osseous elements. C2-3: Normal endplates. Normal disc height, signal and morphology. Normal central canal and intervertebral neural foramina. C3-4: Small central disc protrusion produces moderate spinal stenosis with abutment of the central spinal cord. No neural foraminal stenosis. C4-5: Normal endplates. Normal disc height, signal and morphology. Normal central canal and intervertebral neural foramina. C5-6: Normal endplates. Normal disc height, signal and morphology. Normal central canal and intervertebral neural foramina. C6-7: Mild bilobed disc osteophyte complex produces mild spinal stenosis. No neural foraminal stenosis. C7-T1: Mild broad disc osteophyte complex asymmetric to the right produces mild spinal stenosis and mild right neural foraminal stenosis. Normal cervical cord. Normal visualized soft tissue structures. MRI/Spine Cervical (Routine) IMPRESSION: Multilevel degenerative changes, as described above. Electronically Signed: Jeremiah Lau MD at 19:43 EDT ,
== END | disposition home or self-care (01) ==
PROVIDERS: PCP Internal Medicine
DX: S22.089D Unspecified fracture of T11-T12 vertebra, subsequent encounter for fracture with routine healing (principal); M54.12 Radiculopathy, cervical region
CPT/HCPCS: 72141; 72146

== ENCOUNTER 2023-05-09 12:19 | Emergency (ER) | payer MEDICAID, SELFPAY ==
[2023-05-09 12:20] VITALS: BP 133/93; PULSE 84; RESP 18; TEMP 36.6; O2SAT 100
[2023-05-09 12:23] VITALS: BP 153/98; PULSE 89; RESP 19; TEMP 36.6; O2SAT 99; BMI 29.5
--- NOTE | 2023-05-09 12:57 | EKG12_ITS ---
Test Reason : CP Blood Pressure : / mmHG Vent. Rate : 082 BPM Atrial Rate : 082 BPM P-R Int : 174 ms QRS Dur : 074 ms QT Int : 388 ms P-R-T Axes : -01 -38 037 degrees QTc Int : 453 ms Normal sinus rhythm Left axis deviation Possible Inferior infarct (cited on or before 07-APR-2023) Abnormal ECG When compared with ECG of 07-APR-2023 10:33, No significant change was found Confirmed by EZIO CRABTREE, AMY ([id number]), editorial cartoonist STEFFI JAVED ([id number]) on 06/25/2023 2:02:03 PM Referred By: EKLLY/ELVIS Confirmed By:AMY HOLGUIN MD
[2023-05-09] MEDS: MethylPREDNISolone 125 MG/2 ML Vial 60 MG IV (13:06)
[2023-05-09 13:09] VITALS: PULSE 84; RESP 18
--- NOTE | 2023-05-09 13:10 | ED.VIS.DYS ---
HPI History of Present Illness Chief Complaint: Shortness of Breath Informant: patient Narrative Narrative: For history worsening cough and wheeze. History of COPD. States quit smoking yesterday. No fevers chills or sweats. No chest pains. Using her inhaler. Diabetes history. Sugars elevated per patient. She has a glucose monitor. In the room is 189. Denies sick contacts, denies COVID infections past nonvaccinated. Reports had a fall with back pain, she not go to the ED saw her primary doctor was referred MRI studies was done this past Friday states there were fractures. She is not currently on pain medicines. She does not see pain management. Prior similar symptoms: Yes PFSH [facility] Medical History Anxiety Arthritis Asthma Back pain Back pain Cardiology follow-up encounter Chronic neck and back pain COPD (chronic obstructive pulmonary disease) Coronary artery calcification seen on CAT scan CPAP (continuous positive airway pressure) dependence Depression Dietary restriction Difficulty balancing Gastric reflux High cholesterol History of arthritis History of echocardiogram History of edema History of pain when walking History of renal disease History of stomach ulcers History of stress test Hypertension Injury of head and neck Insulin dependent diabetes mellitus Knee pain Lumbar stenosis Obesity Osteomyelitis Shortness of breath on exertion Shoulder pain Sleep apnea Smoker Spinal fusion failure Strain of muscle, fascia and tendon of pelvis, initial encounter Strain of right hip and thigh Strain of right inguinal region Strain of unspecified muscles, fascia and tendons at thigh level, right thigh, initial encounter Syncope Thyroid disease Type 2 diabetes mellitus Walker as ambulation aid Wears glasses Home Medications albuterol sulfate 90 mcg/actuation aerosol inhaler 2 puff inhalation Q6H PRN SOB 06/14/21 [History Last Taken 06/14/22] atorvastatin 80 mg tablet 80 mg PO QHS CHOLESTEROL 06/14/21 [History Last Taken 06/13/22] budesonide-formoterol HFA 160 mcg-4.5 mcg/actuation aerosol inhaler (Symbicort) 2 puff inhalation BID ASTHMA 06/14/21 [History Last Taken 12/25/21] ipratropium 0.5 mg-albuterol 3 mg (2.5 mg base)/3 mL nebulization soln 3 ml inhalation 4X/DAY PRN sob 11/27/21 [History Last Taken 11/25/21] loratadine 10 mg tablet 10 mg PO DAILY allergies 11/27/21 [History Last Taken 02/21/22] acetaminophen 500 mg tablet 1,000 mg PO Q8H PRN Pain 02/22/22 [History Last Taken 06/14/22] cholecalciferol (vitamin D3) 50 mcg (2,000 unit) capsule 50 mcg PO DAILY #90 caps 08/15/22 [Rx Last Taken Unknown] lisinopril 40 mg tablet 40 mg PO DAILY 10/10/22 [History Last Taken Unknown] ondansetron 4 mg disintegrating tablet 4 mg PO Q8H PRN PRN Nausea #10 tabs 10/13/22 [Rx Last Taken Unknown] gabapentin 300 mg capsule 600 mg PO .COMPLEX 11/15/22 [History Last Taken Unknown] insulin glargine U-300 conc 300 unit/mL (3 mL) subcutaneous pen (Toujeo Max U-300 SoloStar) 20 unit (0.0667 mL) subcut DAILY #6 mL 04/02/23 [Rx Last Taken Unknown] insulin lispro 100 unit/mL subcutaneous pen See Rx Instructions subcut TID #45 mL 04/02/23 [Rx Last Taken Unknown] pen needle, diabetic 32 gauge x 5/32 (BD Ultra-Fine Sissy Pen Needle) #150 ea 04/02/23 [Rx Last Taken Unknown] dicyclomine 10 mg capsule 20 mg (2 x 10 mg) PO TIDAC #20 CAPSULES 04/07/23 [Rx Last Taken Unknown] ondansetron 4 mg disintegrating tablet 4 mg PO Q8H PRN PRN Nausea #10 tabs 04/07/23 [Rx Last Taken Unknown] blood-glucose meter ([employer] Verio Flex Meter) #1 ea 04/16/23 [Rx Last Taken Unknown] flash glucose sensor (FreeStyle Sandra 14 Day Sensor kit) #2 ea 04/16/23 [Rx Last Taken Unknown] azithromycin 250 mg tablet 250 mg PO DAILY #4 TABLETS 05/09/23 [Rx Last Taken Unknown] oxycodone-acetaminophen 5 mg-325 mg tablet (Percocet) 1 tab PO Q6H pain 3 days #12 tabs 05/09/23 [Rx Last Taken Unknown] prednisone 20 mg tablet 40 mg (2 x 20 mg) PO DAILY #8 TABLETS 05/09/23 [Rx Last Taken Unknown] Allergy/AdvReac Type Severity Reaction Status Date / Time duloxetine [From Cymbalta] Allergy Unknown Verified 05/09/23 12:20 pregabalin [From Lyrica] Allergy Unknown Verified 05/09/23 12:20 Penicillins AdvReac Mild leaves a Verified 05/09/23 12:20 bad taste in her mouth. acetaminophen AdvReac Vomiting Verified 05/09/23 12:20 aspirin AdvReac Upset Verified 05/09/23 12:20 Stomach NSAIDS (Non-Steroidal AdvReac Upset Verified 05/09/23 12:20 Anti-Inflamma Stomach Family History Father Cancer Unclear type. Mother Lung cancer Concurrent tobacco use history. Surgical History History of ankle surgery History of History of carpal tunnel release History of hysterectomy History of open reduction and internal fixation (ORIF) procedure History of partial thyroidectomy Social History household members: none Smoking Status: Current every day smoker tobacco type: cigarettes alcohol intake: never substance use type: does not use ROS ROS ED Constitutional Constitutional ED: Denies chills, fever(s) or sweats Eyes Eyes: Denies change in vision ENT ENT ED: Denies dysphagia or sore throat Cardiovascular Cardiovascular: Denies chest pain, leg edema, palpitations or racing heartbeat Respiratory/Chest Respiratory/Chest: Reports cough and dyspnea; Denies dyspnea on exertion Gastrointestinal Gastrointestinal: Denies abdominal pain, diarrhea, nausea or vomiting Genitourinary Genitourinary ED: Denies dysuria, hematuria or urinary frequency Musculoskeletal Musculoskeletal: Reports back pain; Denies extremity pain or neck pain Integumentary Denies rash or wounds Neurologic Neurologic: Denies headache(s), paresthesias or weakness EXAM Physical Exam Const Vital Signs: 05/09/23 12:20 05/09/23 13:09 05/09/23 12:23 Temperature 98 F 98 F Temperature Source Temporal Oral Pulse Rate 84 84 89 Respiratory Rate 18 18 19 H Respiratory Effort Respiratory Depth Respiratory Pattern Blood Pressure 133/93 H 153/98 H Blood Pressure Mean 106 116 Pulse Ox 100 99 Oxygen Delivery Method Room Air Room Air 05/09/23 13:23 05/09/23 15:25 Temperature Temperature Source Pulse Rate 85 Respiratory Rate 12 Respiratory Effort Normal Respiratory Depth Normal Respiratory Pattern Normal Blood Pressure 158/94 H Blood Pressure Mean 115 Pulse Ox Oxygen Delivery Method Room Air Positive well nourished and well developed General Appearance ED: well developed and NAD HEENT Reports moist mucous membranes normocephalic and atraumatic Eyes PERRL, EOMs intact bilaterally and conjunctivae normal General Eye ED: Yes normal appearance of both eyes Neck no lymphadenopathy and supple General: Negative for tenderness Chest Wall Chest: Negative for tenderness Resp normal respiratory effort and normal air movement Resp Narrative: Pain receiving aerosol treatments, has rhonchi with mild wheezing. Effort and Inspection: symmetric chest movement; Negative for respiratory distress Auscultation: rhonchi and wheezes Cardio regular rate, regular rhythm and no murmurs Peripheral Pulses: pulses 2+ throughout GI normal to inspection, nondistended, normoactive bowel sounds and non-tender Palpation: Negative for guarding or rebound tenderness present Back/Spine no CVA tenderness and no thoracic nor lumbar tenderness Extremity normal to inspection General Extremety ED: Negative for edema or tenderness General Extremity: Negative for edema Neuro oriented x3 and no sensory deficits noted Sensorium / Orientation: awake and alert Skin no rashes or lesions noted and no wounds MDM MDM MDM Narrative Medical decision making narrative: Interventions / MDM: Differential diagnosis: COPD exacerbation, thoracic compression fracture. Diagnosis considered but do not suspect: No clinical ACS with no ischemic changes on EKG. My EKG interpretation: N/A Imaging independently reviewed and interpreted by myself: 2 view chest x-ray: No acute process. External documents reviewed: MRI cervical spine and thoracic spine from a week ago notes T2 and T6 compression fracture no retropulsion's. Test considered but not ordered:N/A ED course: Patient given aerosol stacked treatments with diabetes history Solu-Medrol 60 mg given. Chest x-ray labs were ordered for evaluation. She not requiring oxygen. COVID test ordered. Oxycodone x1 ordered for her back pain. Symptoms improved reevaluation. She was ambulated, not hypoxic. Chest x-ray negative for pneumonia. Treated with antibiotic steroids according to golds criteria. With her thoracic fractures she states she is following neurosurgery has planned kyphoplasty. We will write a short course of pain medicines to help. Outpatient follow-up with return precautions. Re-evaluation: stable Disposition discussed with patient/family/significant other: Patient Case discussed with consulting clinician: N/A This note was generated with [employer] dictation software. It may contain incorrect words, spelling, and punctuation that were not noted in checking the note before signing. Lab Data Attestation: I reviewed the patient's lab results. Labs: Laboratory Results - last 24 hr 05/09/23 12:43 WBC 9.9 RBC 4.59 Hgb 12.4 Hct 39.3 MCV 85.6 MCH 27.0 MCHC 31.6 L RDW Std Deviation 47.7 H RDW Coeff of Yudelka 15.2 H Plt Count 379 MPV 10.1 Immature Gran % (Auto) 0.100 Neut % (Auto) 67.7 Lymph % (Auto) 21.5 [place] % (Auto) 8.2 Eos % (Auto) 2.3 Baso % (Auto) 0.2 Absolute Neuts (auto) 6.7 Absolute Lymphs (auto) 2.12 Nucleated RBC % 0 Sodium 135 L Potassium 4.1 Chloride 101 Carbon Dioxide 27.0 Anion Gap 7 BUN 17 Creatinine 0.97 Estim Creat Clear Calc 45.41 Est GFR (MDRD) Af Amer 75 Est GFR (MDRD) Non-Af 62 BUN/Creatinine Ratio 17.5 Glucose 201 H Calcium 9.6 Radiography Diagnostic Testing: Clinical Impression(s) from Imaging Studies Chest X-Ray 05/09/23 14:15 IMPRESSION: Mild cardiomegaly and hyperinflation. The lungs are clear. Electronically Signed: Joaquin Rodney MD at 14:29 EDT , Discharge Plan Triage Chief Complaint: Shortness of Breath ED Provider: Moody Malave Dx/Rx/DC Orders Clinical Impression: Hyperglycemia due to diabetes mellitus, Compression fracture of thoracic vertebra, Wheezing, COPD exacerbation Instructions: COPD Quit Smoking, Compression Fx Prescriptions: New azithromycin [azithromycin] 250 mg tablet 250 mg PO DAILY Qty: 4 0RF prednisone 20 mg tablet 40 mg PO DAILY Qty: 8 0RF oxycodone-acetaminophen [Percocet] 5-325 mg tablet 1 tab PO Q6H 3 Days Qty: 12 0RF No Action atorvastatin 80 mg tablet 80 mg PO QHS budesonide-formoterol [Symbicort] 160-4.5 mcg/actuation HFA aerosol inhaler 2 puff inhalation BID albuterol sulfate 90 mcg/actuation HFA aerosol inhaler 2 puff inhalation Q6H PRN (Reason: SOB) cholecalciferol (vitamin D3) 50 mcg (2,000 unit) capsule 50 mcg PO DAILY Qty: 90 3RF gabapentin 300 mg capsule 600 mg PO .COMPLEX Rx Instructions: 600 mg orally QID; lisinopril 40 mg tablet 40 mg PO DAILY ipratropium-albuterol 0.5 mg-3 mg(2.5 mg base)/3 mL solution for nebulization 3 ml inhalation 4X/DAY PRN (Reason: sob) loratadine 10 mg tablet 10 mg PO DAILY acetaminophen 500 mg tablet 1,000 mg PO Q8H PRN (Reason: Pain) ondansetron 4 mg tablet,disintegrating 4 mg PO Q8H PRN PRN (Reason: Nausea) Qty: 10 0RF ondansetron [ondansetron] 4 mg tablet,disintegrating 4 mg PO Q8H PRN PRN (Reason: Nausea) Qty: 10 0RF dicyclomine 10 mg capsule 20 mg PO TIDAC Qty: 20 0RF (DME) pen needle, diabetic [BD Ultra-Fine Sissy Pen Needle] 32 gauge x 5/32 needle See Rx Instructions .ROUTE .MEDSUPPLY Qty: 150 3RF Rx Instructions: 5 times daily Toujeo Max U-300 SoloStar 300 unit/mL (3 mL) insulin pen 20 unit subcut DAILY Qty: 6 1RF insulin lispro 100 unit/mL insulin pen See Rx Instructions subcut TID MDD 65 Qty: 45 0RF Rx Instructions: 16 u TIDCM, 7 u snacks +SSI subcutaneously three times a day; (DME) blood-glucose meter [OneTouch Verio Flex meter] Pending [facility] To [facility] See Rx Instructions .Route Qty: 1 0RF Rx Instructions: As directed (DME) FreeStyle Sandra 14 Day Sensor Kit See Rx Instructions .Route Qty: 2 5RF Rx Instructions: 1 sensor q 14 days Primary Care Provider: Araceli Ramos NP Referrals: Araceli Ramos NP, [facility] [Primary Care Provider] - 3-5 Days Activity Restrictions/Additional Instructions: Chest x-ray negative. Labs stable. Wheezing improved with treatment. Take steroids and antibiotic as prescribed with her COPD history. Continue her inhaler. Monitor your blood glucose. Your MRI was reviewed, T2 and T6 thoracic compression fractures. You have planned kyphoplasty's by your neurosurgeon. Take pain medicine as prescribed. Disposition Disposition: Home, Self Care Discharge Date/Time: 05/09/23 16:14
[2023-05-09] MEDS: Albuterol 2.5 MG/3 ML VIAL.NEB. INHALATION (13:12)
[2023-05-09 13:15] LABS: Absolute Lymphocyte Count 2.12 X10^3/uL (0.83-4.51); Absolute Neutrophil Count 6.7 X10^3/uL (2.0-7.7); Basophil# 0.02 X10^3/uL; Basophil% 0.2 % (0-1); Eosinophil# 0.23 X10^3/uL; Eosinophils% 2.3 % (0-5); Hematocrit 39.3 % (37-47); Hemoglobin 12.4 g/dL (12.0-15.0); Lymphocyte # 2.12 X10^3/ul (0.83-4.51); Lymphocyte % 21.5 % (19-41); Mean Corp Hgb Conc 31.6 g/dL (32-36); Mean Corpuscular Volume 85.6 fL (81-99); Mean Platelet Vol. 10.1 fl (6.2-12.0); Monocyte# 0.81 X10^3/uL; Monocyte% 8.2 % (0-10); NRBC Flagged by Analyzer 0 % (0-5); Neutrophil # 6.69 X10^3/uL (2.7-7.7); Neutrophil % 67.7 % (47-70); Platelet Count 379 K/mm3 (150-450); RBC Distribution Width CV 15.2 % (11.6-14.6); RBC Distribution Width SD 47.7 fl (35.1-43.9); Red Blood Count 4.59 M/mm3 (4.2-5.4); White Blood Count 9.9 K/mm3 (4.4-11.0)
[2023-05-09 13:25] LABS: Anion Gap 7 (5-15); BUN 17 mg/dL (7-18); BUN/Creat Ratio 17.5 RATIO (10-20); Calcium,Total 9.6 mg/dL (8.5-10.1); Chloride 101 mmol/L (98-107); Creatinine, Serum 0.97 mg/dL (0.55-1.02); EST Glomerular Filtration Rate 62 mL/min (>60); Est Glom Filt Rate - Afr Amer 75 mL/min (>60); Estimated Creatinine Clearance 45.41 ml/min; Glucose 201 mg/dL (74-106); Potassium 4.1 mmol/L (3.5-5.1); Sodium Level 135 mmol/L (136-145)
[2023-05-09] MEDS: oxyCODONE 5 MG Tablet PO (13:35)
--- NOTE | 2023-05-09 14:15 | RAD_ITS ---
STUDY: X-RAY CHEST REASON FOR EXAM: Female, 57 years old. Five-day history of cough and chest pain with shortness of breath. TECHNIQUE: Single AP portable view of the chest. COMPARISON: Comparison is made with prior chest radiograph dated June 15, 2022. FINDINGS: EKG electrodes are seen. Hyperinflation. There is no demonstrated pleural abnormality. There is mild cardiac enlargement. Normal mediastinum and judah. Normal visualized pulmonary arteries. Normal visualized aortic arch and descending thoracic aorta. There are degenerative changes of the visualized thoracic spine. Normal visualized ribs, clavicles, and shoulders. There is no demonstrated abnormality of the visualized soft tissue structures of the upper abdomen. RAD/Chest PA and Lateral IMPRESSION: Mild cardiomegaly and hyperinflation. The lungs are clear. Electronically Signed: Joaquin Rodney MD at 14:29 EDT ,
[2023-05-09] MEDS: Morphine 4 MG/ML Syringe IV (14:42)
[2023-05-09 15:25] VITALS: BP 158/94; PULSE 85; RESP 12
[2023-05-09] MEDS: Azithromycin 250 MG Tablet 500 MG PO (16:00)
== END 2023-05-09 16:14 | disposition home or self-care (01) ==
PROVIDERS: Emergency Provider Emergency Medicine; PCP Internal Medicine; Visit Provider Emergency Medicine
DX: J44.1 Chronic obstructive pulmonary disease with (acute) exacerbation (principal); M48.54XA Collapsed vertebra, not elsewhere classified, thoracic region, initial encounter for fracture; E11.65 Type 2 diabetes mellitus with hyperglycemia; Z79.4 Long term (current) use of insulin; I10 Essential (primary) hypertension; E78.00 Pure hypercholesterolemia, unspecified; Z99.89 Dependence on other enabling machines and devices; Z79.899 Other long term (current) drug therapy; Z79.51 Long term (current) use of inhaled steroids; Z90.710 Acquired absence of both cervix and uterus; F17.210 Nicotine dependence, cigarettes, uncomplicated; R06.2 Wheezing; W19.XXXA Unspecified fall, initial encounter
CPT/HCPCS: 71046; 80048; 85025; 87428; 93005; 94640; 96374; 96375; 99285

== ENCOUNTER 2023-09-12 15:52 | Emergency (ER) | payer MEDICAID, SELFPAY ==
[2023-09-12 15:53] VITALS: BP 187/85; PULSE 88; RESP 16; TEMP 36.8; O2SAT 97; BMI 29.3
--- NOTE | 2023-09-12 16:40 | EDS_ITS ---
HPI HPI - GI History of Present Illness Chief Complaint: Abd Pain Informant: patient Narrative Narrative: Patient presents with abdominal pain. Patient states she has been having this since January 2023. She states I have it all day every day. It is worse with eating. No specific foods bother it but all foods do. However she has not lost or gained weight. She was set to have a colonoscopy and an endoscopy last week but she had to cancel because she did not have somebody to go with her. She came in today because she just cannot take it anymore. It did not change in character or location or severity. Prior surgery includes total hysterectomy many years ago. Still has her gallbladder. She occasionally has had black in her stools. She is not on any blood thinners. She has never had fevers. [facility] Medical History Anxiety Arthritis Asthma Back pain Back pain Cardiology follow-up encounter Chronic neck and back pain COPD (chronic obstructive pulmonary disease) Coronary artery calcification seen on CAT scan CPAP (continuous positive airway pressure) dependence Depression Dietary restriction Difficulty balancing Gastric reflux High cholesterol History of arthritis History of echocardiogram History of edema History of pain when walking History of renal disease History of stomach ulcers History of stress test Hypertension Injury of head and neck Insulin dependent diabetes mellitus Knee pain Lumbar stenosis Obesity Osteomyelitis Shortness of breath on exertion Shoulder pain Sleep apnea Smoker Spinal fusion failure Strain of muscle, fascia and tendon of pelvis, initial encounter Strain of right hip and thigh Strain of right inguinal region Strain of unspecified muscles, fascia and tendons at thigh level, right thigh, initial encounter Syncope Thyroid disease Type 2 diabetes mellitus Walker as ambulation aid Wears glasses Home Medications albuterol sulfate 90 mcg/actuation aerosol inhaler 2 puff inhalation Q6H PRN SOB 06/14/21 [History Last Taken 06/14/22] atorvastatin 80 mg tablet 80 mg PO QHS CHOLESTEROL 06/14/21 [History Last Taken 06/13/22] budesonide-formoterol HFA 160 mcg-4.5 mcg/actuation aerosol inhaler (Symbicort) 2 puff inhalation BID ASTHMA 06/14/21 [History Last Taken 12/25/21] ipratropium 0.5 mg-albuterol 3 mg (2.5 mg base)/3 mL nebulization soln 3 ml inhalation 4X/DAY PRN sob 11/27/21 [History Last Taken 11/25/21] loratadine 10 mg tablet 10 mg PO DAILY allergies 11/27/21 [History Last Taken 02/21/22] acetaminophen 500 mg tablet 1,000 mg PO Q8H PRN Pain 02/22/22 [History Last Taken 06/14/22] cholecalciferol (vitamin D3) 50 mcg (2,000 unit) capsule 50 mcg PO DAILY #90 caps 08/15/22 [Rx Last Taken Unknown] lisinopril 40 mg tablet 40 mg PO DAILY 10/10/22 [History Last Taken Unknown] ondansetron 4 mg disintegrating tablet 4 mg PO Q8H PRN PRN Nausea #10 tabs 10/13/22 [Rx Last Taken Unknown] gabapentin 300 mg capsule 600 mg PO .COMPLEX 11/15/22 [History Last Taken Unknown] insulin lispro 100 unit/mL subcutaneous pen See Rx Instructions subcut TID #45 mL 04/02/23 [Rx Last Taken Unknown] dicyclomine 10 mg capsule 20 mg (2 x 10 mg) PO TIDAC #20 CAPSULES 04/07/23 [Rx Last Taken Unknown] ondansetron 4 mg disintegrating tablet 4 mg PO Q8H PRN PRN Nausea #10 tabs 04/07/23 [Rx Last Taken Unknown] blood-glucose meter (NudgeTouch Verio Flex Meter) #1 ea 04/16/23 [Rx Last Taken Unknown] azithromycin 250 mg tablet 250 mg PO DAILY #4 TABLETS 05/09/23 [Rx Last Taken Unknown] oxycodone-acetaminophen 5 mg-325 mg tablet (Percocet) 1 tab PO Q6H pain 3 days #12 tabs 05/09/23 [Rx Last Taken Unknown] prednisone 20 mg tablet 40 mg (2 x 20 mg) PO DAILY #8 TABLETS 05/09/23 [Rx Last Taken Unknown] pen needle, diabetic 32 gauge x 5/32 (BD Ultra-Fine Sissy Pen Needle) #150 ea 08/04/23 [Rx Last Taken Unknown] blood sugar diagnostic (OneTouch Verio test strips) #100 ea 08/11/23 [Rx Last Taken Unknown] flash glucose sensor (FreeStyle Sandra 14 Day Sensor kit) #2 ea 08/21/23 [Rx Last Taken Unknown] Lantus Solostar U-100 Insulin 100 unit/mL (3 mL) subcutaneous pen (insulin glargine) 20 unit (0.2 mL) subcut QAM #18 mL 08/27/23 [Rx Last Taken Unknown] Allergy/AdvReac Type Severity Reaction Status Date / Time duloxetine [From Cymbalta] Allergy Unknown Verified 08/21/23 08:15 pregabalin [From Lyrica] Allergy Unknown Verified 08/21/23 08:15 Penicillins AdvReac Mild leaves a Verified 08/21/23 08:15 bad taste in her mouth. acetaminophen AdvReac Vomiting Verified 08/21/23 08:15 aspirin AdvReac Upset Verified 08/21/23 08:15 Stomach NSAIDS (Non-Steroidal AdvReac Upset Verified 08/21/23 08:15 Anti-Inflamma Stomach Family History Father Cancer Unclear type. Mother Lung cancer Concurrent tobacco use history. Surgical History History of ankle surgery History of History of carpal tunnel release History of hysterectomy History of open reduction and internal fixation (ORIF) procedure History of partial thyroidectomy Social History household members: none Smoking Status: Current every day smoker tobacco type: cigarettes alcohol intake: never substance use type: does not use ROS ROS ED ROS Narrative A complete review of systems was performed and is negative except as documented in the history of present illness. Some specific details below. Constitutional: No recent fevers or chills. No weight loss. EYE: No visual complaints or change in eye color. ENT: No difficulty swallowing. No swelling. No pain. No real GERD symptoms that I can get from the patient. CV: No chest pain or palpitations. Respiratory: No dyspnea. No hemoptysis. No difficulty taking breaths. GI: Please see history of present illness. : No frequency dysuria or hematuria. Musculoskeletal: No recent trauma. No pains. Skin: No rash. Nondiaphoretic. Neuro: No weakness or numbness. Endocrine: No polyuria or polydipsia. EXAM Physical Exam Narrative Exam Narrative: CONSTITUTIONAL: Patient is nontoxic in appearance. The patient looks comfortable. HEENT: No notable trauma. Mucous membranes are still moist. EYES: No conjunctival injection. No proptosis. No icterus. CARDIOVASCULAR: Regular rate. Regular rhythm. No notable murmur. No JVD. RESPIRATORY: No respiratory distress. Breathing is unlabored. No wheezes. No rhonchi. No rales. No pain with a deep breath. GASTROINTESTINAL: Not distended. Bowel sounds are normal. Patient has some tenderness in the epigastric area, right upper quadrant, and left lower quadrant. It varies during the exam. It is more with hands and stethoscope. There is no rebound or guarding. I do not feel any masses. I do not feel hernia. There are no skin changes over the abdomen. GENITOURINARY: No tenderness over the bladder. No CVA tenderness. MUSCULOSKELETAL: Atraumatic. No peripheral edema. No tenderness. NEUROLOGICAL: Patient is alert and appropriate. No focal deficit noted. SKIN: No noted rashes. No diaphoresis. PSYCHIATRIC: Patient is calm. Mood is appropriate. Const Vital Signs: 09/12/23 15:53 Temperature 98.3 F Temperature Source Temporal Pulse Rate 88 Respiratory Rate 16 Blood Pressure 187/85 H Blood Pressure Mean 119 Pulse Ox 97 Oxygen Delivery Method Room Air MDM MDM MDM Narrative Medical decision making narrative: My independent interpretation of the patient's CT of the abdomen shows thickening of the wall of the stomach. No strong. Final reading was reviewed. Patient does not have a history of bleeding. Her CBC is normal including hemoglobin. Electrolytes do show mild bump of the creatinine over baseline at 1.28 but this is mild. BUN is not markedly elevated. The normal BUN and hemoglobin leans against a significant bleed. Her glucose is high at 353. We were going to treat this but the patient left. He did get IV fluids. Patient's liver function test show no marked abnormalities. Patient's lipase is negative at 21. If patient's urine shows no sign of infection. Patient request something to eat and drink. We were going to go back to talk to her. Evidently she was mad because she did not have narcotics since she left the building. We did not have the chance to repeat her evaluation. Lab Data Attestation: I reviewed the patient's lab results. Labs: Laboratory Results - last 24 hr 09/12/23 09/12/23 17:00 17:05 WBC 6.9 RBC 4.84 Hgb 13.9 Hct 43.6 MCV 90.1 MCH 28.7 MCHC 31.9 L RDW Std Deviation 44.2 H RDW Coeff of Yudelka 13.5 Plt Count 251 MPV 11.4 Immature Gran % (Auto) 0.300 Neut % (Auto) 69.7 Lymph % (Auto) 25.0 Humphreys % (Auto) 3.9 Eos % (Auto) 1.0 Baso % (Auto) 0.1 Absolute Neuts (auto) 4.8 Absolute Lymphs (auto) 1.73 Nucleated RBC % 0 Sodium 139 Potassium 4.3 Chloride 112 H Carbon Dioxide 22.0 Anion Gap 5 BUN 21 H Creatinine 1.28 H Estim Creat Clear Calc 36.15 Est GFR (MDRD) Af Amer 55 L Est GFR (MDRD) Non-Af 45 L BUN/Creatinine Ratio 16.4 Glucose 353 H Calcium 9.0 Total Bilirubin 0.10 L AST 29 ALT 18 Alkaline Phosphatase 78 Total Protein 6.3 L Albumin 2.9 L Globulin 3.4 Albumin/Globulin Ratio 0.9 Lipase 21 Urine Color Yellow Urine Clarity Clear Urine pH 5.0 Ur Specific [place] 1.020 Urine Protein 500 H Urine Glucose (UA) 1000 H Urine Ketones Negative Urine Occult Blood 10 H Urine Nitrite Negative Urine Bilirubin Negative Urine Urobilinogen Normal Ur Leukocyte Esterase Negative Urine RBC 0 SEEN Urine WBC 0-5 SEEN Ur Squamous Epith Cells 0-5 SEEN Urine Bacteria 0 SEEN Urine Mucus 0 SEEN Radiography Diagnostic Testing: Clinical Impression(s) from Imaging Studies Abdomen/Pelvis CT 09/12/23 16:48 IMPRESSION: Persistent wall thickening of the stomach extending from the fundus to the mid body suspicious for gastritis. Recommend correlation with clinical history, reported on multiple prior studies recommend follow-up endoscopy. Mild to moderate constipation. Nonspecific minimal radiopaque density/fluid with level of the cecum which may be associated with something the patient ingested however recommend correlation with any history of GI bleed. Moderate hepatic steatosis. Mild enlargement of the bilateral adrenal glands could consider adrenal hyperplasia. Mild wall thickening of the bladder consider cystitis. Degenerative changes of the thoracolumbar spine postoperative change L4-L5. Status post kyphoplasty T12. Electronically Signed: Samantha Rose MD at 18:16 EST , Discharge Plan Triage Chief Complaint: Abd Pain ED Provider: Godfrey White Dx/Rx/DC Orders Clinical Impression: Gastric wall thickening, Abdominal pain, recurrent Prescriptions: No Action atorvastatin 80 mg tablet 80 mg PO QHS budesonide-formoterol [Symbicort] 160-4.5 mcg/actuation HFA aerosol inhaler 2 puff inhalation BID albuterol sulfate 90 mcg/actuation HFA aerosol inhaler 2 puff inhalation Q6H PRN (Reason: SOB) cholecalciferol (vitamin D3) 50 mcg (2,000 unit) capsule 50 mcg PO DAILY Qty: 90 3RF gabapentin 300 mg capsule 600 mg PO .COMPLEX Rx Instructions: 600 mg orally QID; lisinopril 40 mg tablet 40 mg PO DAILY (DME) FreeStyle Sandra 14 Day Sensor Kit See Rx Instructions .Route Qty: 2 5RF Rx Instructions: 1 sensor q 14 days ipratropium-albuterol 0.5 mg-3 mg(2.5 mg base)/3 mL solution for nebulization 3 ml inhalation 4X/DAY PRN (Reason: sob) loratadine 10 mg tablet 10 mg PO DAILY acetaminophen 500 mg tablet 1,000 mg PO Q8H PRN (Reason: Pain) ondansetron 4 mg tablet,disintegrating 4 mg PO Q8H PRN PRN (Reason: Nausea) Qty: 10 0RF ondansetron [ondansetron] 4 mg tablet,disintegrating 4 mg PO Q8H PRN PRN (Reason: Nausea) Qty: 10 0RF dicyclomine 10 mg capsule 20 mg PO TIDAC Qty: 20 0RF azithromycin [azithromycin] 250 mg tablet 250 mg PO DAILY Qty: 4 0RF prednisone 20 mg tablet 40 mg PO DAILY Qty: 8 0RF oxycodone-acetaminophen [Percocet] 5-325 mg tablet 1 tab PO Q6H 3 Days Qty: 12 0RF insulin lispro 100 unit/mL insulin pen See Rx Instructions subcut TID MDD 65 Qty: 45 0RF Rx Instructions: 16 u TIDCM, 7 u snacks +SSI subcutaneously three times a day; (DME) blood-glucose meter [NudgeTouch Verio Flex meter] Misc See Rx Instructions .Route Qty: 1 0RF Rx Instructions: As directed (DME) pen needle, diabetic [BD Ultra-Fine Sissy Pen Needle] 32 gauge x 5/32 needle See Rx Instructions .ROUTE .MEDSUPPLY Qty: 150 3RF Rx Instructions: 5 times daily (DME) OneTouch Verio test strips Strip See Rx Instructions .Route Qty: 100 5RF Rx Instructions: 4x/day insulin glargine [Lantus Solostar U-100 Insulin] 100 unit/mL (3 mL) insulin pen 20 unit subcut QAM Qty: 18 0RF Primary Care Provider: Araceli Ramos NP Referrals: Araceli Ramos NP, CLINICAL CARE MANAGER-C [Primary Care Provider] - Disposition Disposition: Elopement
--- NOTE | 2023-09-12 16:48 | CT_ITS ---
STUDY: CT ABDOMEN AND PELVIS WITH CONTRAST REASON FOR EXAM: Female, 57 years old. Abd pain RADIATION DOSAGE (If Supplied By Facility): CTDIvol = ( 16.67 ) mGy, DLP = ( 645.95 ) mGycm TECHNIQUE: Transaxial images were obtained from the dome of the diaphragm to the symphysis pubis without oral contrast. IV 100mL Isovue-370 was administered. Sagittal and coronal images were reconstructed. Individualized dose optimization techniques were used for this CT. COMPARISON: 05/08/2023 CT scan abdomen and pelvis FINDINGS: The visualized lung bases are unremarkable. The visualized portions of the heart are within normal limits. There is mild hepatic steatosis. Normal gallbladder and extrahepatic biliary system. Normal spleen. There is diffuse atrophy of the pancreas. Mildly thickened appearance of the adrenal gland stable since prior study. Consider possible hyperplasia. There is mild right renal pelviectasis which is similar to the prior study. There is visualized mild wall thickening of the bladder. Normal left kidney. There is a thick-walled appearance of the stomach with prominent appearance of the renal gait. Normal small intestine. There is mild to moderate stool within the colon. The appendix is visualized and appears normal. There is a nonspecific focus of radiopaque density within the cecum. The aorta is partially calcified. Normal inferior vena cava. There are multiple small subcentimeter peritoneal lymph nodes. There is a mildly thick-walled appearance of the bladder. The uterus is atrophied or there is a prominent vaginal stump. Normal abdominal wall. There is visualized kyphoplasty at T12. There is a 20% loss of height. There is visualized disc spacer at the level of L4-L5 with mild neural foramina narrowing. There has been a laminectomy at this level without significant central stenosis. There is degenerative change of the hip joints. CT/Abdomen/Pelvis W IV Cont ONLY IMPRESSION: Persistent wall thickening of the stomach extending from the fundus to the mid body suspicious for gastritis. Recommend correlation with clinical history, reported on multiple prior studies recommend follow-up endoscopy. Mild to moderate constipation. Nonspecific minimal radiopaque density/fluid with level of the cecum which may be associated with something the patient ingested however recommend correlation with any history of GI bleed. Moderate hepatic steatosis. Mild enlargement of the bilateral adrenal glands could consider adrenal hyperplasia. Mild wall thickening of the bladder consider cystitis. Degenerative changes of the thoracolumbar spine postoperative change L4-L5. Status post kyphoplasty T12. Electronically Signed: Samantha Rose MD at 18:16 EST ,
[2023-09-12] MEDS: Ondansetron 4 MG/2 ML Vial IV (17:01)
[2023-09-12] MEDS: Dicyclomine 20 MG/2 ML Vial IM (17:01)
[2023-09-12] MEDS: 0.9% Normal Saline (1000mL) 1,000 ML 1000 ML IV (17:01)
[2023-09-12 17:12] LABS: Bacteria 0 SEEN /hpf (None Seen); Mucous, Urine 0 SEEN /hpf (<or=2+); Red Blood Cells-Urine 0 SEEN /hpf (0-5)
[2023-09-12 17:14] LABS: Absolute Lymphocyte Count 1.73 X10^3/uL (0.83-4.51); Absolute Neutrophil Count 4.8 X10^3/uL (2.0-7.7); Basophil# 0.01 X10^3/uL; Basophil% 0.1 % (0-1); Eosinophil# 0.07 X10^3/uL; Hematocrit 43.6 % (37-47); Hemoglobin 13.9 g/dL (12.0-15.0); Lymphocyte # 1.73 X10^3/ul (0.83-4.51); Mean Corp Hgb Conc 31.9 g/dL (32-36); Mean Corpuscular Hgb 28.7 pg (27.0-32.0); Mean Corpuscular Volume 90.1 fL (81-99); Mean Platelet Vol. 11.4 fl (6.2-12.0); Monocyte# 0.27 X10^3/uL; Monocyte% 3.9 % (0-10); NRBC Flagged by Analyzer 0 % (0-5); Neutrophil # 4.83 X10^3/uL (2.7-7.7); Neutrophil % 69.7 % (47-70); Platelet Count 251 K/mm3 (150-450); RBC Distribution Width CV 13.5 % (11.6-14.6); RBC Distribution Width SD 44.2 fl (35.1-43.9); Red Blood Count 4.84 M/mm3 (4.2-5.4); White Blood Count 6.9 K/mm3 (4.4-11.0)
[2023-09-12 17:14] LABS: Color, Urine Yellow (Yellow); Glucose, Dipstick 1000 mg/dl (Normal); Ketone-Dipstick Negative (Negative); Leukocyte Esterase-Dipstick Negative /ul (Negative); Nitrite-Dipstick Negative (Negative); Occult Blood-Urine 10 /ul (Negative); Protein-Dipstick 500 mg/dl (Negative); Urine Bilirubin Dipstick Negative (Negative); Urine Clarity Clear (Clear); Urine Urobilinogen Normal (Normal)
[2023-09-12 17:29] LABS: ALB/GLOB Ratio 0.9 RATIO (0.9-2.4); AST(SGOT) 29 U/L (15-37); Alanine Aminotransfer ALT/SGPT 18 U/L (13-56); Albumin, Serum 2.9 g/dL (3.2-5.0); Alkaline Phosphatase 78 U/L (45-117); Anion Gap 5 (5-15); BUN 21 mg/dL (7-18); BUN/Creat Ratio 16.4 RATIO (10-20); Chloride 112 mmol/L (98-107); Creatinine, Serum 1.28 mg/dL (0.55-1.02); EST Glomerular Filtration Rate 45 mL/min (>60); Est Glom Filt Rate - Afr Amer 55 mL/min (>60); Estimated Creatinine Clearance 36.15 ml/min; Globulin 3.4 g/dL (2.2-4.2); Glucose 353 mg/dL (74-106); Lipase 21 U/L (13-75); Potassium 4.3 mmol/L (3.5-5.1); Protein, Total 6.3 g/dL (6.4-8.2); Sodium Level 139 mmol/L (136-145)
[2023-09-12 17:31] LABS: Squamous Epithelial Cells - UA 0-5 SEEN /hpf (5-10); White Blood Cells 0-5 SEEN /hpf (0-5)
[2023-09-12 17:53] VITALS: RESP 16
--- NOTE | 2023-09-12 18:22 | ED.RN ---
pt states to this rn that she needs to go home to eat. this rn states that pt cannot eat until ct results come back. pt goes back into room. Rachel, RN walks by pt door and pt is dressed and taking out her own iv with blood all over the floor. Rachel tells pt that if she wants to leave, we cannot hold her here. staff explains to pt that all results are back and waiting on MD to re-evaluate pt. pt still insists on leaving. dr. quintana made aware/
== END 2023-09-12 18:27 | disposition left against medical advice (07) ==
PROVIDERS: Emergency Provider Emergency Medicine; PCP Internal Medicine; Visit Provider Emergency Medicine
DX: R10.9 Unspecified abdominal pain (principal); J44.9 Chronic obstructive pulmonary disease, unspecified; Z79.4 Long term (current) use of insulin; E11.9 Type 2 diabetes mellitus without complications; Z90.710 Acquired absence of both cervix and uterus; I10 Essential (primary) hypertension; Z79.899 Other long term (current) drug therapy; Z79.51 Long term (current) use of inhaled steroids; F17.210 Nicotine dependence, cigarettes, uncomplicated; K31.89 Other diseases of stomach and duodenum
CPT/HCPCS: 74177; 80053; 81001; 83690; 85025; 96361; 96372; 96374; 99283; J7030; Q9967; J2405

== ENCOUNTER → 2023-10-06 | Outpatient (CLI) | payer MEDICAID, SELFPAY ==
--- NOTE | 2023-10-06 09:45 | BI_ITS ---
MAMMOGRAPHY - BILATERAL SCREENING REASON FOR EXAM: Female, 57 years old. Routine annual screening examination. PERTINENT HISTORY: Non-contributory. TECHNIQUE: Digital bilateral breast celeste (3D mammographic acquisition) in the CC and MLO projections. 2-D mediolateral oblique (MLO) and craniocaudad (CC) views of both breasts were obtained. CAD: Full Field Digital Mammography with Computer Added Detection was performed. COMPARISON: Comparison is made with prior study dated August 20, 2022. FINDINGS: Breast Composition: The breasts are almost entirely fatty. There are no dominant masses or suspicious calcifications. Stable small benign-appearing bilateral axillary lymph nodes. No other significant abnormalities are identified. There has been no significant change since the prior study. BI/SCRN MAMM (CAD)W/CELESTE BILAT IMPRESSION: Stable bilateral screening mammogram. Yearly follow-up mammogram recommended. (A) ASSESSMENT CATEGORY: BIRADS Category 2: Benign. A letter regarding these results will be sent to the patient by the facility within 30 days. Approximately 10% of breast cancers are not detected by mammography. A normal mammogram should not delay biopsy of a clinically suspicious abnormality. [id number] Electronically Signed: Joaquin Rodney MD at 10:51 EST ,
== END | disposition home or self-care (01) ==
LOC: OPBI 09:43
PROVIDERS: PCP Internal Medicine; Referring Provider Internal Medicine; Visit Provider Internal Medicine
DX: Z12.31 Encounter for screening mammogram for malignant neoplasm of breast (principal)
CPT/HCPCS: 77063; 77067

== ENCOUNTER 2023-11-22 13:33 | Emergency (ER) | payer MEDICAID, SELFPAY ==
[2023-11-22 13:35] VITALS: BP 179/104; PULSE 84; RESP 18; TEMP 36.8; O2SAT 99; BMI 29.4
--- NOTE | 2023-11-22 13:59 | ED.VIS.DYS ---
HPI History of Present Illness Chief Complaint: Shortness of Breath Informant: patient Onset/Context/Timing Onset: Month(s) (1-2) Context: gradual Timing: Continuous Quality: Positive for Dyspnea on exertion Worsened by: Exertion Relieved by: Nothing Associated Symptoms cough; Negative for rhinorrhea, post nasal drip, fever, sore throat, subjective, chills, sweats, clear sputum, white sputum, yellow sputum or green sputum Chest Pain: Positive for Sharp Narrative Narrative: Patient presents with shortness of breath and abdominal pain that has been constant for the past month. Patient states her breathing is worse with any exertion. Patient states that has been gradually getting worse over the past month. Patient states she was scheduled to see a surgeon in 2 days and then was supposed to have surgery in 5 days. Patient states that they schedule me with the wrong surgeon and now I have to start all over . Patient states she has pain over her upper abdomen. Patient states it radiates into her lower sternal area. Patient denies any fevers or chills. Patient denies any cough. Patient denies any sore throat or rhinorrhea. Patient states she has a history of MALS (median arcuate ligament syndrome). [facility] Medical History Anxiety Arthritis Asthma Back pain Back pain Cardiology follow-up encounter Chronic neck and back pain COPD (chronic obstructive pulmonary disease) Coronary artery calcification seen on CAT scan CPAP (continuous positive airway pressure) dependence Depression Dietary restriction Difficulty balancing Gastric reflux High cholesterol History of arthritis History of echocardiogram History of edema History of pain when walking History of renal disease History of stomach ulcers History of stress test Hypertension Injury of head and neck Insulin dependent diabetes mellitus Knee pain Lumbar stenosis Obesity Osteomyelitis Shortness of breath on exertion Shoulder pain Sleep apnea Smoker Spinal fusion failure Strain of muscle, fascia and tendon of pelvis, initial encounter Strain of right hip and thigh Strain of right inguinal region Strain of unspecified muscles, fascia and tendons at thigh level, right thigh, initial encounter Syncope Thyroid disease Type 2 diabetes mellitus Walker as ambulation aid Wears glasses Home Medications albuterol sulfate 90 mcg/actuation aerosol inhaler 2 puff inhalation Q6H PRN SOB 06/14/21 [History Last Taken 06/14/22] atorvastatin 80 mg tablet 80 mg PO QHS CHOLESTEROL 06/14/21 [History Last Taken 06/13/22] budesonide-formoterol HFA 160 mcg-4.5 mcg/actuation aerosol inhaler (Symbicort) 2 puff inhalation BID ASTHMA 06/14/21 [History Last Taken 12/25/21] ipratropium 0.5 mg-albuterol 3 mg (2.5 mg base)/3 mL nebulization soln 3 ml inhalation 4X/DAY PRN sob 11/27/21 [History Last Taken 11/25/21] loratadine 10 mg tablet 10 mg PO DAILY allergies 11/27/21 [History Last Taken 02/21/22] acetaminophen 500 mg tablet 1,000 mg PO Q8H PRN Pain 02/22/22 [History Last Taken 06/14/22] cholecalciferol (vitamin D3) 50 mcg (2,000 unit) capsule 50 mcg PO DAILY #90 caps 08/15/22 [Rx Last Taken Unknown] lisinopril 40 mg tablet 40 mg PO DAILY 10/10/22 [History Last Taken Unknown] ondansetron 4 mg disintegrating tablet 4 mg PO Q8H PRN PRN Nausea #10 tabs 10/13/22 [Rx Last Taken Unknown] gabapentin 300 mg capsule 600 mg PO .COMPLEX 11/15/22 [History Last Taken Unknown] insulin lispro 100 unit/mL subcutaneous pen See Rx Instructions subcut TID #45 mL 04/02/23 [Rx Last Taken Unknown] dicyclomine 10 mg capsule 20 mg (2 x 10 mg) PO TIDAC #20 CAPSULES 04/07/23 [Rx Last Taken Unknown] ondansetron 4 mg disintegrating tablet 4 mg PO Q8H PRN PRN Nausea #10 tabs 04/07/23 [Rx Last Taken Unknown] blood-glucose meter ([employer] Verio Flex Meter) #1 ea 04/16/23 [Rx Last Taken Unknown] azithromycin 250 mg tablet 250 mg PO DAILY #4 TABLETS 05/09/23 [Rx Last Taken Unknown] oxycodone-acetaminophen 5 mg-325 mg tablet (Percocet) 1 tab PO Q6H pain 3 days #12 tabs 05/09/23 [Rx Last Taken Unknown] prednisone 20 mg tablet 40 mg (2 x 20 mg) PO DAILY #8 TABLETS 05/09/23 [Rx Last Taken Unknown] blood sugar diagnostic ([employer] Verio test strips) #100 ea 08/11/23 [Rx Last Taken Unknown] flash glucose sensor (FreeStyle Sandra 14 Day Sensor kit) #2 ea 08/21/23 [Rx Last Taken Unknown] Lantus Solostar U-100 Insulin 100 unit/mL (3 mL) subcutaneous pen (insulin glargine) 20 unit (0.2 mL) subcut QAM #18 mL 08/27/23 [Rx Last Taken Unknown] pen needle, diabetic 32 gauge x 5/32 (BD Ultra-Fine Sissy Pen Needle) #150 ea 11/13/23 [Rx Last Taken Unknown] Allergy/AdvReac Type Severity Reaction Status Date / Time duloxetine [From Cymbalta] Allergy Unknown Verified 11/22/23 13:34 pregabalin [From Lyrica] Allergy Unknown Verified 11/22/23 13:34 Penicillins AdvReac Mild leaves a Verified 11/22/23 13:34 bad taste in her mouth. acetaminophen AdvReac Vomiting Verified 11/22/23 13:34 aspirin AdvReac Upset Verified 11/22/23 13:34 Stomach NSAIDS (Non-Steroidal AdvReac Upset Verified 11/22/23 13:34 Anti-Inflamma Stomach Family History Father Cancer Unclear type. Mother Lung cancer Concurrent tobacco use history. Surgical History History of ankle surgery History of History of carpal tunnel release History of hysterectomy History of open reduction and internal fixation (ORIF) procedure History of partial thyroidectomy Social History household members: none Smoking Status: Current every day smoker tobacco type: cigarettes alcohol intake: never substance use type: does not use ROS ROS ED Constitutional Constitutional ED: Denies chills or fever(s) Eyes Eyes: Denies blurry vision or change in vision ENT ENT ED: Denies rhinorrhea or sore throat Cardiovascular Cardiovascular: Reports chest pain; Denies palpitations Respiratory/Chest Respiratory/Chest: Reports dyspnea; Denies cough Gastrointestinal Gastrointestinal: Reports abdominal pain and nausea; Denies vomiting Genitourinary Genitourinary ED: Denies dysuria or hematuria Musculoskeletal Musculoskeletal: Denies back pain or neck pain Integumentary Denies abscess or rash Neurologic Neurologic: Denies headache(s) or weakness Allergic/Immunologic Allergic/Immunologic ED: Denies mouth swelling or urticaria EXAM Physical Exam Const Vital Signs: 11/22/23 13:35 Temperature 98.3 F Temperature Source Temporal Pulse Rate 84 Respiratory Rate 18 Blood Pressure 179/104 H Blood Pressure Mean 129 Pulse Ox 99 Oxygen Delivery Method Room Air Positive well nourished and well developed General Appearance ED: well developed and NAD HEENT Reports moist mucous membranes Neck supple and no JVD Resp normal respiratory effort Auscultation: wheezes scattered wheezes Cardio regular rate and regular rhythm GI non-distended GI Narrative: There was minimal tenderness when I was pushing on her abdomen with my stethoscope. However when I lightly palpated her abdomen, she began to complain of severe pain. Auscultation: normoactive bowel sounds Palpation: soft and tender epigastric, LLQ, RLQ, LUQ, RUQ, periumbilical and suprapubic Neuro oriented x3, CN's II-XII intact bilaterally and no sensory deficits noted [place] Coma Scale: document GCS findings Spontaneous Obeys Commands Oriented 15 Sensorium / Orientation: alert Motor Exam: strength 5/5 throughout Psych mental status grossly normal MDM MDM MDM Narrative Medical decision making narrative: Differential diagnosis includes gastroenteritis, gastritis, peptic ulcer disease, cholecystitis, cholelithiasis, pancreatitis, MALS, pneumonia, and electrolyte abnormality. Since patient had minimal tenderness with palpation with a stethoscope and her symptoms have been present for a month, I do not feel that this is ischemic bowel. CBC will be obtained to assess for leukocytosis and anemia. Comprehensive metabolic profile will be obtained to assess for electrolyte abnormality and renal function. Lipase will be obtained to assess for pancreatitis. Urinalysis will be obtained to assess for urinary tract infection and hematuria. Lab Data Attestation: I reviewed the patient's lab results. Lab results narrative: CBC was reviewed. There is a mild leukocytosis of 13.5. There is no left shift. Comprehensive metabolic profile was reviewed. BUN was slightly elevated at 24 and creatinine was 1.31. This is consistent with previous results. Glucose was slightly elevated at 341. The remainder was essentially within normal limits. Lipase was reviewed and was normal at 19. Urinalysis was reviewed. There is no evidence of urinary tract infection or hematuria. Labs: Laboratory Results - last 24 hr 11/22/23 14:25 WBC 13.5 H RBC 4.44 Hgb 12.5 Hct 40.5 MCV 91.2 MCH 28.2 MCHC 30.9 L RDW Std Deviation 46.5 H RDW Coeff of Yudelka 13.8 Plt Count 362 MPV 10.7 Immature Gran % (Auto) 0.400 Neut % (Auto) 79.3 H Lymph % (Auto) 14.6 L [place] % (Auto) 4.5 Eos % (Auto) 0.9 Baso % (Auto) 0.3 Absolute Neuts (auto) 10.7 H Absolute Lymphs (auto) 1.97 Nucleated RBC % 0 Sodium 132 L Potassium 4.8 Chloride 102 Carbon Dioxide 25.0 Anion Gap 5 BUN 24 H Creatinine 1.31 H Estim Creat Clear Calc 40.39 Est GFR (MDRD) Af Amer 54 L Est GFR (MDRD) Non-Af 44 L BUN/Creatinine Ratio 18.3 Glucose 341 H Calcium 9.9 Total Bilirubin 0.60 AST 13 L ALT 17 Alkaline Phosphatase 86 Total Protein 7.4 Albumin 3.0 L Globulin 4.4 H Albumin/Globulin Ratio 0.7 L Lipase 19 Urine Color Yellow Urine Clarity Clear Urine pH 7.0 Ur Specific [place] 1.010 Urine Protein 100 H Urine Glucose (UA) 1000 H Urine Ketones Negative Urine Occult Blood 25 H Urine Nitrite Negative Urine Bilirubin Negative Urine Urobilinogen Normal Ur Leukocyte Esterase 25 H Urine RBC 0 SEEN Urine WBC 0-5 SEEN Ur Squamous Epith Cells 0-5 SEEN Urine Bacteria 0 SEEN Urine Mucus 0 SEEN Treatment and Re-Evaluation :: Patient was given IV fluids, morphine, and Zofran. Patient was feeling better on reevaluation. Patient was advised of her findings. Patient was instructed to start with a liquid diet and advance as tolerated. Patient was instructed to follow-up with her surgeon as scheduled. Patient was also instructed to follow-up with her primary care physician in 3 to 5 days. Patient was instructed to return if worse in any way. Patient understood and was agreeable with the plan. All questions were answered. Discharge Plan Triage Chief Complaint: Shortness of Breath ED Provider: Oni Chavez Dx/Rx/DC Orders Clinical Impression: Diabetes mellitus with hyperglycemia, Essential hypertension, Abdominal pain Instructions: ED Abdominal Pain Unkn Cause Fem Prescriptions: No Action atorvastatin 80 mg tablet 80 mg PO QHS budesonide-formoterol [Symbicort] 160-4.5 mcg/actuation HFA aerosol inhaler 2 puff inhalation BID albuterol sulfate 90 mcg/actuation HFA aerosol inhaler 2 puff inhalation Q6H PRN (Reason: SOB) cholecalciferol (vitamin D3) 50 mcg (2,000 unit) capsule 50 mcg PO DAILY Qty: 90 3RF gabapentin 300 mg capsule 600 mg PO .COMPLEX Rx Instructions: 600 mg orally QID; lisinopril 40 mg tablet 40 mg PO DAILY (DME) FreeStyle Sandra 14 Day Sensor Kit See Rx Instructions .Route Qty: 2 5RF Rx Instructions: 1 sensor q 14 days ipratropium-albuterol 0.5 mg-3 mg(2.5 mg base)/3 mL solution for nebulization 3 ml inhalation 4X/DAY PRN (Reason: sob) loratadine 10 mg tablet 10 mg PO DAILY acetaminophen 500 mg tablet 1,000 mg PO Q8H PRN (Reason: Pain) ondansetron 4 mg tablet,disintegrating 4 mg PO Q8H PRN PRN (Reason: Nausea) Qty: 10 0RF ondansetron [ondansetron] 4 mg tablet,disintegrating 4 mg PO Q8H PRN PRN (Reason: Nausea) Qty: 10 0RF dicyclomine 10 mg capsule 20 mg PO TIDAC Qty: 20 0RF azithromycin [azithromycin] 250 mg tablet 250 mg PO DAILY Qty: 4 0RF prednisone 20 mg tablet 40 mg PO DAILY Qty: 8 0RF oxycodone-acetaminophen [Percocet] 5-325 mg tablet 1 tab PO Q6H 3 Days Qty: 12 0RF insulin lispro 100 unit/mL insulin pen See Rx Instructions subcut TID MDD 65 Qty: 45 0RF Rx Instructions: 16 u TIDCM, 7 u snacks +SSI subcutaneously three times a day; (DME) blood-glucose meter [OneTouch Verio Flex [facility]] [facility] See Rx Instructions .Route Qty: 1 0RF Rx Instructions: As directed (DME) OneTouch Verio test strips Strip See Rx Instructions .Route Qty: 100 5RF Rx Instructions: 4x/day insulin glargine [Lantus Solostar U-100 Insulin] 100 unit/mL (3 mL) insulin pen 20 unit subcut QAM Qty: 18 0RF (DME) pen needle, diabetic [BD Ultra-Fine Sissy Pen Needle] 32 gauge x 5/32 needle See Rx Instructions .ROUTE .MEDSUPPLY Qty: 150 3RF Rx Instructions: 5 times daily Primary Care Provider: Araceli Ramos NP Referrals: Araceli Ramos NP, [employer] [Primary Care Provider] - 3-5 Days Activity Restrictions/Additional Instructions: Start with a liquid diet and advance to a bland diet as you feel better. Drink plenty of fluids. Disposition Disposition: Home, Self Care
[2023-11-22] MEDS: Ondansetron 4 MG/2 ML Vial IV (14:20)
[2023-11-22] MEDS: Morphine 4 MG/ML Syringe IV (14:20)
[2023-11-22] MEDS: 0.9% Normal Saline (1000mL) 1,000 ML 1000 ML IV (14:21)
[2023-11-22 14:30] LABS: Bacteria 0 SEEN /hpf (None Seen); Mucous, Urine 0 SEEN /hpf (<or=2+); Red Blood Cells-Urine 0 SEEN /hpf (0-5)
[2023-11-22 14:31] LABS: Absolute Lymphocyte Count 1.97 X10^3/uL (0.83-4.51); Absolute Neutrophil Count 10.7 X10^3/uL (2.0-7.7); Basophil# 0.04 X10^3/uL; Basophil% 0.3 % (0-1); Eosinophil# 0.12 X10^3/uL; Eosinophils% 0.9 % (0-5); Hematocrit 40.5 % (37-47); Hemoglobin 12.5 g/dL (12.0-15.0); Lymphocyte # 1.97 X10^3/ul (0.83-4.51); Lymphocyte % 14.6 % (19-41); Mean Corp Hgb Conc 30.9 g/dL (32-36); Mean Corpuscular Hgb 28.2 pg (27.0-32.0); Mean Corpuscular Volume 91.2 fL (81-99); Mean Platelet Vol. 10.7 fl (6.2-12.0); Monocyte# 0.61 X10^3/uL; Monocyte% 4.5 % (0-10); NRBC Flagged by Analyzer 0 % (0-5); Neutrophil # 10.71 X10^3/uL (2.7-7.7); Neutrophil % 79.3 % (47-70); Platelet Count 362 K/mm3 (150-450); RBC Distribution Width CV 13.8 % (11.6-14.6); RBC Distribution Width SD 46.5 fl (35.1-43.9); Red Blood Count 4.44 M/mm3 (4.2-5.4); White Blood Count 13.5 K/mm3 (4.4-11.0)
[2023-11-22 14:41] LABS: Color, Urine Yellow (Yellow); Glucose, Dipstick 1000 mg/dl (Normal); Ketone-Dipstick Negative (Negative); Leukocyte Esterase-Dipstick 25 /ul (Negative); Nitrite-Dipstick Negative (Negative); Occult Blood-Urine 25 /ul (Negative); Protein-Dipstick 100 mg/dl (Negative); Urine Bilirubin Dipstick Negative (Negative); Urine Clarity Clear (Clear); Urine Urobilinogen Normal (Normal)
[2023-11-22 14:46] LABS: Squamous Epithelial Cells - UA 0-5 SEEN /hpf (5-10); White Blood Cells 0-5 SEEN /hpf (0-5)
[2023-11-22 14:53] LABS: ALB/GLOB Ratio 0.7 RATIO (0.9-2.4); AST(SGOT) 13 U/L (15-37); Alanine Aminotransfer ALT/SGPT 17 U/L (13-56); Alkaline Phosphatase 86 U/L (45-117); Anion Gap 5 (5-15); BUN 24 mg/dL (7-18); BUN/Creat Ratio 18.3 RATIO (10-20); Calcium,Total 9.9 mg/dL (8.5-10.1); Chloride 102 mmol/L (98-107); Creatinine, Serum 1.31 mg/dL (0.55-1.02); EST Glomerular Filtration Rate 44 mL/min (>60); Est Glom Filt Rate - Afr Amer 54 mL/min (>60); Estimated Creatinine Clearance 40.39 ml/min; Globulin 4.4 g/dL (2.2-4.2); Glucose 341 mg/dL (74-106); Lipase 19 U/L (13-75); Potassium 4.8 mmol/L (3.5-5.1); Protein, Total 7.4 g/dL (6.4-8.2); Sodium Level 132 mmol/L (136-145)
== END 2023-11-22 15:00 | disposition home or self-care (01) ==
PROVIDERS: Emergency Provider Emergency Medicine; PCP Internal Medicine; Visit Provider Emergency Medicine
DX: E11.65 Type 2 diabetes mellitus with hyperglycemia (principal); J44.9 Chronic obstructive pulmonary disease, unspecified; Z79.4 Long term (current) use of insulin; I10 Essential (primary) hypertension; R10.9 Unspecified abdominal pain; Z99.89 Dependence on other enabling machines and devices; E78.00 Pure hypercholesterolemia, unspecified; Z79.899 Other long term (current) drug therapy; Z79.51 Long term (current) use of inhaled steroids; Z90.710 Acquired absence of both cervix and uterus; F17.210 Nicotine dependence, cigarettes, uncomplicated
CPT/HCPCS: 80053; 81001; 83690; 85025; 96361; 96374; 96375; 99283; J7030; A4216; J2405

== ENCOUNTER → 2023-12-05 | Outpatient (REF) | payer MEDICAID, SELFPAY ==
[2023-12-05 08:26] LABS: Absolute Lymphocyte Count 2.16 X10^3/uL (0.83-4.51); Absolute Neutrophil Count 8.6 X10^3/uL (2.0-7.7); Basophil# 0.06 X10^3/uL; Basophil% 0.5 % (0-1); Eosinophil# 0.18 X10^3/uL; Eosinophils% 1.4 % (0-5); Hematocrit 36.9 % (37-47); Hemoglobin 11.9 g/dL (12.0-15.0); Lymphocyte # 2.16 X10^3/ul (0.83-4.51); Lymphocyte % 17.3 % (19-41); Mean Corp Hgb Conc 32.2 g/dL (32-36); Mean Corpuscular Hgb 29.2 pg (27.0-32.0); Mean Corpuscular Volume 90.7 fL (81-99); Mean Platelet Vol. 11.3 fl (6.2-12.0); Monocyte# 1.22 X10^3/uL; Monocyte% 9.8 % (0-10); NRBC Flagged by Analyzer 0 % (0-5); Neutrophil # 8.63 X10^3/uL (2.7-7.7); Neutrophil % 69.3 % (47-70); Platelet Count 345 K/mm3 (150-450); RBC Distribution Width CV 15.8 % (11.6-14.6); RBC Distribution Width SD 48.4 fl (35.1-43.9); Red Blood Count 4.07 M/mm3 (4.2-5.4); White Blood Count 12.5 K/mm3 (4.4-11.0)
[2023-12-05 08:45] LABS: Vitamin B12 548 pg/mL (211-911); Vitamin D,25 Hydroxy 28.2 ng/mL
[2023-12-05 08:53] LABS: Anion Gap 7 (5-15); BUN 20 mg/dL (7-18); BUN/Creat Ratio 15.4 RATIO (10-20); Calcium,Total 9.9 mg/dL (8.5-10.1); Chloride 104 mmol/L (98-107); EST Glomerular Filtration Rate 45 mL/min (>60); Est Glom Filt Rate - Afr Amer 54 mL/min (>60); Glucose 298 mg/dL (74-106); Magnesium 1.9 mg/dL (1.6-2.6); Potassium 4.5 mmol/L (3.5-5.1); Sodium Level 134 mmol/L (136-145); Thyroid Stim Hormone (TSH) 4.02 uIU/mL (0.358-3.74)
[2023-12-05 14:04] LABS: Hemoglobin A1c 7.1 % (3.8-5.6)
== END | disposition home or self-care (01) ==
LOC: OLS.SW 05:00
PROVIDERS: PCP Internal Medicine; Visit Provider Internal Medicine
DX: S72.92XA Unspecified fracture of left femur, initial encounter for closed fracture (principal); D64.9 Anemia, unspecified
CPT/HCPCS: 36415; 80048; 82306; 82607; 83036; 83735; 84443; 85025

== ENCOUNTER → 2023-12-08 | Outpatient (REF) | payer MEDICAID, SELFPAY ==
[2023-12-08 08:51] LABS: Hematocrit 33.6 % (37-47); Hemoglobin 10.7 g/dL (12.0-15.0); Mean Corp Hgb Conc 31.8 g/dL (32-36); Mean Corpuscular Hgb 29.8 pg (27.0-32.0); Mean Corpuscular Volume 93.6 fL (81-99); Mean Platelet Vol. 11.6 fl (6.2-12.0); Platelet Count 314 K/mm3 (150-450); RBC Distribution Width CV 16.3 % (11.6-14.6); RBC Distribution Width SD 54.1 fl (35.1-43.9); Red Blood Count 3.59 M/mm3 (4.2-5.4); White Blood Count 12.4 K/mm3 (4.4-11.0)
[2023-12-08 09:22] LABS: Anion Gap 7 (5-15); BUN 25 mg/dL (7-18); Chloride 103 mmol/L (98-107); Creatinine, Serum 1.39 mg/dL (0.55-1.02); EST Glomerular Filtration Rate 41 mL/min (>60); Est Glom Filt Rate - Afr Amer 50 mL/min (>60); Glucose 306 mg/dL (74-106); Magnesium 2.2 mg/dL (1.6-2.6); Potassium 4.2 mmol/L (3.5-5.1); Sodium Level 135 mmol/L (136-145)
== END | disposition home or self-care (01) ==
LOC: OLS.SW 04:00
PROVIDERS: PCP Internal Medicine; Referring Provider Internal Medicine; Visit Provider Internal Medicine
DX: N17.9 Acute kidney failure, unspecified (principal); E87.5 Hyperkalemia; D64.9 Anemia, unspecified
CPT/HCPCS: 36415; 80048; 83735; 85027

== ENCOUNTER → 2023-12-15 | Outpatient (REF) | payer MEDICAID, SELFPAY ==
[2023-12-15 09:02] LABS: Hematocrit 38.3 % (37-47); Hemoglobin 11.7 g/dL (12.0-15.0); Mean Corp Hgb Conc 30.5 g/dL (32-36); Mean Corpuscular Volume 94.8 fL (81-99); Mean Platelet Vol. 11.3 fl (6.2-12.0); Platelet Count 398 K/mm3 (150-450); RBC Distribution Width CV 16.3 % (11.6-14.6); RBC Distribution Width SD 57.2 fl (35.1-43.9); Red Blood Count 4.04 M/mm3 (4.2-5.4); White Blood Count 8.2 K/mm3 (4.4-11.0)
[2023-12-15 09:43] LABS: Anion Gap 8 (5-15); BUN 22 mg/dL (7-18); BUN/Creat Ratio 19.8 RATIO (10-20); Calcium,Total 10.6 mg/dL (8.5-10.1); Chloride 104 mmol/L (98-107); Creatinine, Serum 1.11 mg/dL (0.55-1.02); EST Glomerular Filtration Rate 54 mL/min (>60); Est Glom Filt Rate - Afr Amer 65 mL/min (>60); Glucose 202 mg/dL (74-106); Potassium 4.2 mmol/L (3.5-5.1); Sodium Level 136 mmol/L (136-145)
== END | disposition home or self-care (01) ==
LOC: OLS.SW 05:00
PROVIDERS: PCP Internal Medicine; Visit Provider Internal Medicine
DX: N17.9 Acute kidney failure, unspecified (principal)
CPT/HCPCS: 36415; 80048; 85027

== ENCOUNTER → 2024-05-31 | Outpatient (CLI) | payer MEDICAID, SELFPAY ==
--- NOTE | 2024-05-31 17:11 | CT_ITS ---
EXAM: CT LEFT LOWER EXTREMITY WITHOUT INTRAVENOUS CONTRAST, FEMUR CLINICAL INDICATION: FX TECHNIQUE: Helically acquired images were obtained of the left femur without intravenous contrast. 2-D reformats were performed by the technologist. CTDIvol = ( 15.50 ) mGy, DLP = ( 730.64 ) mGycm This CT exam was performed using one or more of the following dose reduction techniques: automated exposure control, adjustment of the mA and/or kV according to patient size, and/or use of iterative reconstruction technique. COMPARISON: No relevant prior studies available. FINDINGS: Status post remote open reduction internal fixation of a fracture of the proximal femur with persisting fracture lucency indicating incomplete healing. No hardware complications along the length of the femur. No acute fractures are identified. No soft tissue mass. Bone island at the femoral aspect of the intercondylar notch. No soft tissue gas. No suspicious radiopaque foreign bodies. CT/Extremity Lower without Contra IMPRESSION: Incompletely healed fracture of the proximal femur status post open reduction and internal fixation. No acute fracture or malalignment. Electronically Signed: Angelo Barry MD at 0:13 EDT ,
== END | disposition home or self-care (01) ==
LOC: CT 16:59
PROVIDERS: PCP Internal Medicine
DX: S72.22XD Displaced subtrochanteric fracture of left femur, subsequent encounter for closed fracture with routine healing (principal)
CPT/HCPCS: 73700

== ENCOUNTER 2024-06-18 13:11 | Emergency (ER) | payer MEDICAID, SELFPAY ==
[2024-06-18 13:32] VITALS: BP 243/113; PULSE 91; RESP 18; TEMP 37; O2SAT 98; BMI 29.5
[2024-06-18 14:12] VITALS: BP 234/115; PULSE 86; RESP 15; O2SAT 95
[2024-06-18 14:14] LABS: Bacteria 0 SEEN /hpf (None Seen); Mucous, Urine 0 SEEN /hpf (<or=2+)
[2024-06-18 14:16] LABS: Absolute Lymphocyte Count 2.18 X10^3/uL (0.83-4.51); Absolute Neutrophil Count 7.7 X10^3/uL (2.0-7.7); Basophil# 0.03 X10^3/uL; Basophil% 0.3 % (0-1); Eosinophil# 0.11 X10^3/uL; Hemoglobin 14.8 g/dL (12.0-15.0); Lymphocyte # 2.18 X10^3/ul (0.83-4.51); Lymphocyte % 20.6 % (19-41); Mean Corp Hgb Conc 32.2 g/dL (32-36); Mean Corpuscular Hgb 31.6 pg (27.0-32.0); Mean Corpuscular Volume 98.1 fL (81-99); Mean Platelet Vol. 10.7 fl (6.2-12.0); Monocyte# 0.51 X10^3/uL; Monocyte% 4.8 % (0-10); NRBC Flagged by Analyzer 0 % (0-5); Neutrophil # 7.69 X10^3/uL (2.7-7.7); Neutrophil % 72.9 % (47-70); Platelet Count 270 K/mm3 (150-450); RBC Distribution Width CV 13.6 % (11.6-14.6); RBC Distribution Width SD 49.5 fl (35.1-43.9); Red Blood Count 4.69 M/mm3 (4.2-5.4); White Blood Count 10.6 K/mm3 (4.4-11.0)
[2024-06-18 14:18] LABS: Color, Urine Yellow (Yellow); Glucose, Dipstick 1000 mg/dl (Normal); Ketone-Dipstick Negative (Negative); Leukocyte Esterase-Dipstick 25 /ul (Negative); Nitrite-Dipstick Negative (Negative); Occult Blood-Urine 25 /ul (Negative); Protein-Dipstick 100 mg/dl (Negative); Urine Bilirubin Dipstick Negative (Negative); Urine Clarity Sl. Cloudy (Clear); Urine Urobilinogen Normal (Normal); Urine pH 6.5 (5.0 - 8.0)
[2024-06-18] MEDS: Acetaminophen 500 MG Tablet 1000 MG PO (14:22)
[2024-06-18] MEDS: Metoclopramide 10 MG/2 ML Vial IV (14:22)
[2024-06-18 14:32] LABS: Red Blood Cells-Urine 0-5 SEEN /hpf (0-5); Squamous Epithelial Cells - UA 0-5 SEEN /hpf (5-10); White Blood Cells 0-5 SEEN /hpf (0-5)
[2024-06-18 14:34] LABS: ALB/GLOB Ratio 0.8 RATIO (0.9-2.4); AST(SGOT) 9 U/L (15-37); Alanine Aminotransfer ALT/SGPT 18 U/L (13-56); Albumin, Serum 3.1 g/dL (3.2-5.0); Alkaline Phosphatase 99 U/L (45-117); Anion Gap 6 (5-15); BUN 27 mg/dL (7-18); BUN/Creat Ratio 20.1 RATIO (10-20); Chloride 110 mmol/L (98-107); Creatinine, Serum 1.34 mg/dL (0.55-1.02); EST Glomerular Filtration Rate 43 mL/min (>60); Est Glom Filt Rate - Afr Amer 52 mL/min (>60); Estimated Creatinine Clearance 39.06 ml/min; Globulin 4.1 g/dL (2.2-4.2); Glucose 306 mg/dL (74-106); Potassium 4.3 mmol/L (3.5-5.1); Protein, Total 7.2 g/dL (6.4-8.2); Sodium Level 137 mmol/L (136-145); Troponin-I HS 21 pg/mL (3.0-54.0)
--- NOTE | 2024-06-18 15:22 | EDS_ITS ---
HPI History of Present Illness Chief Complaint: Headache Narrative Narrative: Patient is a 58-year-old female with past medical history of anxiety, FRANCISCO, depression, hypertension, COPD, type 2 diabetes who presents to the emergency department the chief complaint of headache. Patient states that for the past several days her blood pressure has been running extremely high. She states that she has been taking her blood pressure medication. She reached out to her primary care physician's office and they advised her to increase her blood pressure medication. She contacted them today that she had a headache and they advised her to come here for the valuation management. She states it has been running the 180s. Patient states that she did not take anything for her headache prior to arrival here. Patient also noted that she has been in a lot of pain lately secondary to her leg having hardware in it and being out of her pain medication until early next week [facility] Medical History Back pain Osteomyelitis Spinal fusion failure CPAP (continuous positive airway pressure) dependence Sleep apnea Lumbar stenosis Wears glasses Depression Anxiety Thyroid disease Insulin dependent diabetes mellitus Walker as ambulation aid Arthritis History of renal disease High cholesterol Back pain Injury of head and neck Syncope Dietary restriction Gastric reflux Smoker COPD (chronic obstructive pulmonary disease) Shortness of breath on exertion History of edema History of pain when walking History of echocardiogram History of stress test Cardiology follow-up encounter Hypertension Obesity Coronary artery calcification seen on CAT scan Type 2 diabetes mellitus Strain of muscle, fascia and tendon of pelvis, initial encounter Strain of unspecified muscles, fascia and tendons at thigh level, right thigh, initial encounter Strain of right hip and thigh Strain of right inguinal region Chronic neck and back pain Difficulty balancing Asthma Knee pain History of stomach ulcers Shoulder pain History of arthritis Home Medications ?Medication ?Instructions ?Recorded ?Last Taken ?Type albuterol sulfate 90 mcg/actuation 2 puff inhalation Q6H PRN SOB 06/14/21 06/14/22 History aerosol inhaler atorvastatin 80 mg tablet 80 mg PO QHS CHOLESTEROL 06/14/21 06/13/22 History budesonide-formoterol HFA 160 2 puff inhalation BID ASTHMA 06/14/21 12/25/21 History mcg-4.5 mcg/actuation aerosol inhaler (Symbicort) ipratropium 0.5 mg-albuterol 3 mg 3 ml inhalation 4X/DAY PRN sob 11/27/21 11/25/21 History (2.5 mg base)/3 mL nebulization soln loratadine 10 mg tablet 10 mg PO DAILY allergies 11/27/21 02/21/22 History acetaminophen 500 mg tablet 1,000 mg PO Q8H PRN Pain 02/22/22 06/14/22 History cholecalciferol (vitamin D3) 50 50 mcg PO DAILY #90 caps 08/15/22 Unknown Rx mcg (2,000 unit) capsule lisinopril 40 mg tablet 40 mg PO DAILY 10/10/22 Unknown History ondansetron 4 mg disintegrating 4 mg PO Q8H PRN PRN Nausea #10 tabs 10/13/22 Unknown Rx tablet gabapentin 300 mg capsule 600 mg PO .COMPLEX 11/15/22 Unknown History insulin lispro 100 unit/mL See Rx Instructions subcut TID #45 04/02/23 Unknown Rx subcutaneous pen mL dicyclomine 10 mg capsule 20 mg (2 x 10 mg) PO TIDAC #20 04/07/23 Unknown Rx CAPSULES ondansetron 4 mg disintegrating 4 mg PO Q8H PRN PRN Nausea #10 tabs 04/07/23 Unknown Rx tablet blood-glucose meter (OneTouch #1 ea 04/16/23 Unknown Rx Verio Flex Meter) azithromycin 250 mg tablet 250 mg PO DAILY #4 TABLETS 05/09/23 Unknown Rx oxycodone-acetaminophen 5 mg-325 1 tab PO Q6H pain 3 days #12 tabs 05/09/23 Unknown Rx mg tablet (Percocet) prednisone 20 mg tablet 40 mg (2 x 20 mg) PO DAILY #8 05/09/23 Unknown Rx TABLETS blood sugar diagnostic (OneTouch #100 ea 08/11/23 Unknown Rx Verio test strips) flash glucose sensor (FreeStyle #2 ea 08/21/23 Unknown Rx Sandra 14 Day Sensor kit) pen needle, diabetic 32 gauge x #150 ea 11/13/23 Unknown Rx (BD Ultra-Fine Sissy Pen Needle) Lantus Solostar U-100 Insulin 100 24 unit (0.24 mL) subcut QAM #18 mL 02/24/24 Unknown Rx unit/mL (3 mL) subcutaneous pen (insulin glargine) Allergy/AdvReac Type Severity Reaction Status Date / Time duloxetine (From Omniatambalta) Allergy Unknown Verified 06/18/24 13:35 pregabalin (From Lyrica) Allergy Unknown Verified 06/18/24 13:35 Penicillins AdvReac Mild leaves a Verified 06/18/24 13:35 bad taste in her mouth. acetaminophen AdvReac Vomiting Verified 06/18/24 13:35 aspirin AdvReac Upset Verified 06/18/24 13:35 Stomach NSAIDS (Non-Steroidal AdvReac Upset Verified 06/18/24 13:35 Anti-Inflamma Stomach Family History Father Cancer Unclear type. Mother Lung cancer Concurrent tobacco use history. Surgical History History of open reduction and internal fixation (ORIF) procedure History of carpal tunnel release History of partial thyroidectomy History of ankle surgery History of History of hysterectomy Social History household members: none Smoking Status: Current every day smoker tobacco type: cigarettes alcohol intake: never substance use type: does not use ROS ROS ED ROS Narrative Constitutional: Denies any fevers, chills, headaches, lightness, dizziness Eyes: Denies change in vision double vision blurry Cardiovascular: Denies chest pain or palpitations Respiratory: Denies coughing wheezing shortness of breath Abdomen: Denies abdominal pain nausea vomit diarrhea : Denies any urinary symptoms Neurological: Denies any numbness, weakness, tingling Musculoskeletal: Denies back pain Skin: Denies rashes or lesions EXAM Physical Exam Narrative Exam Narrative: General: Patient lying in bed rest comfortably did not appear to be in acute distress Head: Atraumatic, normocephalic Eyes: PERRL bilateral, EOMI bilateral, no conjunctival injection noted Neck: Soft, supple, trachea midline Cardiovascular: Regular rate and rhythm no murmurs gallops rubs noted Respiratory: Clear to auscultation bilaterally no rales rhonchi or wheezes noted Abdomen: Soft, nondistended, nontender to palpation, bowel sounds present x 4 Extremities: +5/5 strength noted in the bilateral upper and lower extremities, radial pulses +2/4 in the bilateral upper extremities Neurological: Patient is following commands knew that h she was at [facility] there is 2023 Skin: Warm, dry, tact Const Vital Signs: 06/18/24 13:32 06/18/24 14:12 06/18/24 14:12 Temperature 98.6 F Temperature Source Oral Pulse Rate 91 86 Respiratory Rate 18 15 Respiratory Effort Normal Respiratory Pattern Normal Blood Pressure 243/113 H 234/115 H Blood Pressure Mean 156 154 Pulse Ox 98 95 Oxygen Delivery Method Room Air Room Air MDM MDM MDM Narrative Medical decision making narrative: Patient is a 58-year-old female who presented to the emerged part with chief complaint of headache and hypertension. Patient will have workup formed here on the differential diagnose includes but limited to essential hypertension, migraine headache, headache secondary to her high blood pressure, ACS, hypertensive emergency. Patient was noted be in pain she will be given Tylenol and she will be given 0.2 mg of clonidine and be reevaluated. Patient CBC reviewed and showed no evidence leukocytosis white blood count normal 10.6, hemoglobin stable at 14.8, platelet count normal at 270. Patient sodium normal 137, potassium normal 4.3, creatinine was 1.34, AST and ALT were 9 and 18 respectively, troponin normal at 21. Patient's urinalysis showed 25 leukocyte esterase, negative nitrates. No bacteria noted. Patient's EKG was reviewed and independently interpreted by myself which showed sinus rhythm with a rate of 80 bpm. The patient eloped prior to treatment completion. Lab Data Labs: Laboratory Results - last 24 hr 06/18/24 13:05 WBC 10.6 RBC 4.69 Hgb 14.8 Hct 46.0 MCV 98.1 MCH 31.6 MCHC 32.2 RDW Std Deviation 49.5 H RDW Coeff of Yudelka 13.6 Plt Count 270 MPV 10.7 Immature Gran % (Auto) 0.400 Neut % (Auto) 72.9 H Lymph % (Auto) 20.6 [place] % (Auto) 4.8 Eos % (Auto) 1.0 Baso % (Auto) 0.3 Absolute Neuts (auto) 7.7 Absolute Lymphs (auto) 2.18 Nucleated RBC % 0 Sodium 137 Potassium 4.3 Chloride 110 H Carbon Dioxide 22.0 Anion Gap 6 BUN 27 H Creatinine 1.34 H Estim Creat Clear Calc 39.06 Est GFR (MDRD) Af Amer 52 L Est GFR (MDRD) Non-Af 43 L BUN/Creatinine Ratio 20.1 H Glucose 306 H Calcium 10.0 Total Bilirubin 0.20 AST 9 L ALT 18 Alkaline Phosphatase 99 Troponin I High Sens 21 Total Protein 7.2 Albumin 3.1 L Globulin 4.1 Albumin/Globulin Ratio 0.8 L Urine Color Yellow Urine Clarity Sl. Cloudy Urine pH 6.5 Ur Specific [place] 1.010 Urine Protein 100 H Urine Glucose (UA) 1000 H Urine Ketones Negative Urine Occult Blood 25 H Urine Nitrite Negative Urine Bilirubin Negative Urine Urobilinogen Normal Ur Leukocyte Esterase 25 H Urine RBC 0-5 SEEN Urine WBC 0-5 SEEN Ur Squamous Epith Cells 0-5 SEEN Urine Bacteria 0 SEEN Urine Mucus 0 SEEN Discharge Plan Triage Chief Complaint: Headache Other Complaint: Hypertension ED Provider: Sukh Linares Dx/Rx/DC Orders Prescriptions: No Action atorvastatin 80 mg tablet 80 mg PO QHS budesonide-formoterol [Symbicort] 160-4.5 mcg/actuation HFA aerosol inhaler 2 puff inhalation BID albuterol sulfate 90 mcg/actuation HFA aerosol inhaler 2 puff inhalation Q6H PRN (Reason: SOB) cholecalciferol (vitamin D3) 50 mcg (2,000 unit) capsule 50 mcg PO DAILY Qty: 90 3RF gabapentin 300 mg capsule 600 mg PO .COMPLEX Rx Instructions: 600 mg orally QID; lisinopril 40 mg tablet 40 mg PO DAILY (DME) FreeStyle Sandra 14 Day Sensor Kit See Rx Instructions .Route Qty: 2 5RF Rx Instructions: 1 sensor q 14 days ipratropium-albuterol 0.5 mg-3 mg(2.5 mg base)/3 mL solution for nebulization 3 ml inhalation 4X/DAY PRN (Reason: sob) loratadine 10 mg tablet 10 mg PO DAILY acetaminophen 500 mg tablet 1,000 mg PO Q8H PRN (Reason: Pain) ondansetron 4 mg tablet,disintegrating 4 mg PO Q8H PRN PRN (Reason: Nausea) Qty: 10 0RF ondansetron [ondansetron] 4 mg tablet,disintegrating 4 mg PO Q8H PRN PRN (Reason: Nausea) Qty: 10 0RF dicyclomine 10 mg capsule 20 mg PO TIDAC Qty: 20 0RF azithromycin [azithromycin] 250 mg tablet 250 mg PO DAILY Qty: 4 0RF prednisone 20 mg tablet 40 mg PO DAILY Qty: 8 0RF oxycodone-acetaminophen [Percocet] 5-325 mg tablet 1 tab PO Q6H 3 Days Qty: 12 0RF insulin lispro 100 unit/mL insulin pen See Rx Instructions subcut TID MDD 65 Qty: 45 0RF Rx Instructions: 16 u TIDCM, 7 u snacks +SSI subcutaneously three times a day; (DME) blood-glucose meter [OneTouch Verio Flex meter] Misc See Rx Instructions .Route Qty: 1 0RF Rx Instructions: As directed (DME) OneTouch Verio test strips Strip See Rx Instructions .Route Qty: 100 5RF Rx Instructions: 4x/day (DME) pen needle, diabetic [BD Ultra-Fine Sissy Pen Needle] 32 gauge x 5/32 needle See Rx Instructions .ROUTE .MEDSUPPLY Qty: 150 3RF Rx Instructions: 5 times daily insulin glargine [Lantus Solostar U-100 Insulin] 100 unit/mL (3 mL) insulin pen 24 unit subcut QAM Qty: 18 0RF Primary Care Provider: Araceli Ramos NP Referrals: Araceli Ramos NP, SENIOR ELECTRICAL ESTIMATOR-C [Primary Care Provider] - Print Language: Kiswahili Disposition Disposition: Elopement Discharge Date/Time: 06/18/24 15:26
--- NOTE | 2024-06-18 15:22 | ED.RN ---
THIS RN IN PATIENT ROOM TO ADMINISTER MEDICATION. PT NOT IN ROOM. GOWN THROWN ON BED. MONITOR DISCONNECTED. PT NOT FOUND IN DEPARTMENT. SEVERAL RNS IN DEPARTMENT NOTED THAT PATIENT WAS SEEN IN [facility]. THIS RN CALLED [place] [facility] BECAUSE PATIENT LEFT WITH IV IN ARM. PD TO PATIENT'S HOUSE. IV REMOVED BY PD. DR. MURRY AWARE.
== END 2024-06-18 15:26 | disposition left against medical advice (07) ==
PROVIDERS: Emergency Provider Emergency Medicine; PCP Internal Medicine; Visit Provider Emergency Medicine
DX: R51.9 Headache, unspecified (principal); J44.9 Chronic obstructive pulmonary disease, unspecified; E11.9 Type 2 diabetes mellitus without complications; Z79.4 Long term (current) use of insulin; F41.9 Anxiety disorder, unspecified; Z90.710 Acquired absence of both cervix and uterus; E78.00 Pure hypercholesterolemia, unspecified; I10 Essential (primary) hypertension; I25.10 Atherosclerotic heart disease of native coronary artery without angina pectoris; F17.210 Nicotine dependence, cigarettes, uncomplicated
CPT/HCPCS: 80053; 81001; 84484; 85025; 93005; 99284; A4216

== ENCOUNTER 2024-06-25 19:45 | Inpatient (IN) | payer MEDICAID, SELFPAY ==
--- NOTE | 2024-06-25 | HIP_PTH ---
PATIENT: MILY CHILDRESS LOC: MS3 U#:[id number] AGE/SX: 58/F ROOM: [facility] RE06/25/[address]: Dr. Keily Smith DO : 1965 BED: 1 DIS: 07/03/2024 SPEC #: [id number] RECD: 06/28/24 07:11 STATUS: SHAUN REClark #: [id number] KELSEY: 06/25/24 00:[address]: Laron Siu DEPT: SURGICAL PATHOLOGY RECD BY: Ron Gomez ENTERED: 06/28/24 08:21 SP TYPE: TOTAL HIP OTHR DR: MD Dr. Keily Martinez DO Dr. Nana Yaa Koram, MD Dr. Rodney Miller, MD Rosa Cleaver, HOSPITAL LIBRARIAN-C Tissues: Hip, NOS Procedures: Decalcification bone/plaque Surgery Specimen Level IV Comments: @ Ordering doctor for DEC edited from to @ by ISSA at 06/28/24899 @ Ordering doctor for SUIV edited from to @ by ISSA at 06/28/24899 @ Submitting doctor edited from to @ by ISSA at 06/28/24899 HEADER OPERATION: Total hip replacement, cemented PRE-OP DIAGNOSIS: Closed fracture of neck of right femur TISSUE SUBMITTED: Femoral head, right MICROSCOPIC DIAGNOSIS Bone and tissue of right hip, total hip resection: Consistent with organizing fracture callus. AM: 06/30/2024 MICROSCOPIC DESCRIPTION Slides are reviewed. GROSS DESCRIPTION Received is one container labeled with the patient's name and designated femoral head and tissue. The specimen consists of a mcgarry femoral head measuring 3.5 x 4.0 x 3.5cm. The articular surface is smooth. Resection margin is irregular and hemorrhagic. Also present in the specimen container are detached pieces of bone measuring in aggregate 6.5 x 5.0 x 1.5 cm. Also present in the container is are detached pieces of soft tissue measuring in aggregate 6.5 x 4.0 x 1.5 cm. [employer] sections are submitted in three cassettes as follows: 1 - soft tissue, 2 - detached pieces of bone after decalcification, 3 - femoral head after decalcification. / NIGEL. 06/28/2024 TC:5 [facility]: [id number]
[2024-06-25 19:47] VITALS: BP 138/76; PULSE 82; RESP 18; TEMP 36.9; O2SAT 95
--- NOTE | 2024-06-25 20:14 | EKG12_ITS ---
Test Reason : DYSRHYTHMIA Blood Pressure : / mmHG Vent. Rate : 070 BPM Atrial Rate : 070 BPM P-R Int : 194 ms QRS Dur : 074 ms QT Int : 416 ms P-R-T Axes : 068 -44 028 degrees QTc Int : 449 ms Normal sinus rhythm Left axis deviation Inferior infarct , age undetermined Abnormal ECG Confirmed by Marcus Dial ([id number]), food expeditor DIANA HAYES ([id number]) on 06/28/2024 11:56:23 AM Referred By: Confirmed By:Marcus Dial
--- NOTE | 2024-06-25 20:14 | RAD_ITS ---
EXAM: XR CHEST, 1 VIEW CLINICAL INDICATION: Preop, history of smoking TECHNIQUE: Frontal view of the chest. COMPARISON: 05/09/2023 CT abdomen and pelvis, 09/12/2023 FINDINGS: LUNGS AND PLEURAL SPACES: No significant abnormality. No consolidation or edema. No pneumothorax. No effusion. HEART: Cardiomegaly and/or pericardial effusion. MEDIASTINUM: Central airways and mediastinal contour are unremarkable. BONES/JOINTS: Multilevel vertebral augmentation and degenerative changes in the spine and shoulders. No acute fracture. SOFT TISSUES: No significant abnormality. RAD/Chest 1 View (Portable) IMPRESSION: Cardiomegaly and/or pericardial effusion. No focal airspace disease, pleural effusion, or pneumothorax Electronically Signed: Jagdeep Gibson DO at 21:03 EDT ,
--- NOTE | 2024-06-25 20:15 | RAD_ITS ---
EXAM: XR LEFT KNEE, 1 OR 2 VIEWS CLINICAL INDICATION: Injury/Pain TECHNIQUE: Frontal and/or lateral views of the left knee. COMPARISON: Hip radiographs on the same date. FINDINGS: BONES/JOINTS: Band of sclerosis in the subcortical medial tibial plateau perhaps indicating a minimal impaction fracture. Intramedullary and plate-screw fixation of the distal femur. Preservation of the joint space. Normal alignment. Otherwise, normal mineralization. SOFT TISSUES: No significant abnormality. No soft tissue swelling or gas. No radiopaque foreign body. RAD/Knee 1 or 2 Views IMPRESSION: 1. Band of sclerosis in the subcortical medial tibial plateau perhaps indicating a minimal impaction fracture. 2. Intramedullary and plate-screw fixation of the distal femur. Electronically Signed: Jagdeep Gibson DO at 21:01 EDT ,
--- NOTE | 2024-06-25 20:15 | RAD_ITS ---
EXAM: XR RIGHT HIP WITH PELVIS WHEN PERFORMED, 2 OR 3 VIEWS CLINICAL INDICATION: Injury/Pain TECHNIQUE: Two or three views of the right hip with pelvis when performed. COMPARISON: CT abdomen and pelvis, 09/12/2023 FINDINGS: BONES/JOINTS: Subcapital to mid cervical right femoral neck fracture with varus angulation. No dislocation. Status post intramedullary fixation of the left hip. Bilateral hip joint arthrosis. Postoperative and degenerative changes in the lumbar spine. Symmetric arthrosis of the bilateral SI joints. No destructive or sclerotic lesions. Note that overlapping bowel shadows may however obscure fine detail. No widening of the pubic symphysis. SOFT TISSUES: No significant abnormality. No soft tissue swelling or gas. RAD/HIP, UNI W/ Pelvis 2-3 Views IMPRESSION: Subcapital to mid cervical right femoral neck fracture with varus angulation. No dislocation. Electronically Signed: Jagdeep Gibson DO at 21:00 EDT ,
[2024-06-25] MEDS: Morphine 4 MG/ML Syringe IV ×3 (20:28→22:49)
[2024-06-25 20:49] LABS: Absolute Neutrophil Count 4.8 X10^3/uL (2.0-7.7); Basophil# 0.03 X10^3/uL; Basophil% 0.3 % (0-1); Eosinophil# 0.16 X10^3/uL; Eosinophils% 1.9 % (0-5); Hematocrit 40.9 % (37-47); Hemoglobin 13.6 g/dL (12.0-15.0); Mean Corp Hgb Conc 33.3 g/dL (32-36); Mean Corpuscular Hgb 32.4 pg (27.0-32.0); Mean Corpuscular Volume 97.4 fL (81-99); Mean Platelet Vol. 10.5 fl (6.2-12.0); Monocyte% 5.8 % (0-10); NRBC Flagged by Analyzer 0 % (0-5); Neutrophil # 4.81 X10^3/uL (2.7-7.7); Neutrophil % 56.1 % (47-70); Platelet Count 285 K/mm3 (150-450); RBC Distribution Width CV 13.3 % (11.6-14.6); RBC Distribution Width SD 47.1 fl (35.1-43.9); White Blood Count 8.6 K/mm3 (4.4-11.0)
--- NOTE | 2024-06-25 21:00 | EDS_ITS ---
HPI HPI - Fall History of Present Illness Chief Complaint: Fall Detail of Chief Complaint: Patient admits to drinking this evening. She fell. She was unable to get Informant: patient Occured/Mechanism Occurred: Today and Hours Mechanism/Context: Yes same level fall Narrative: Patient was tripped. She admits to alcohol beverage. Usually ambulates: Without assistance Pain/Injury Location: Right hip left knee Pain Location: lower extremity Quality of Pain: Dull, Aching and Throbbing Current Severity: Severe Maximum Severity: Severe Worsened by: Any type of movement especially the hip Relieved by: Nothing Associated Symptoms Associated Symptoms: Positive for Loss of function and Inability to ambulate; Negative for Parasthesias, Weakness, Loss of consciousness or Amnesia Narrative Narrative: Patient is a 58-year-old woman. She has history of thoracic compression fracture, neuropathy, hypertension, hyperlipidemia, lumbar spinal stenosis, left hip fracture, left distal femur fracture, calcification coronary arteries on CT and type 2 diabetes. She presents because of fall. She was unable to get up from the floor. She is complaining of severe pain in the right hip and left knee. Prior similar symptoms: Yes Recent Illness/Hospitalization: No PFSH PFSH Medical History Back pain Osteomyelitis Spinal fusion failure CPAP (continuous positive airway pressure) dependence Sleep apnea Lumbar stenosis Wears glasses Depression Anxiety Thyroid disease Insulin dependent diabetes mellitus Walker as ambulation aid Arthritis History of renal disease High cholesterol Back pain Injury of head and neck Syncope Dietary restriction Gastric reflux Smoker COPD (chronic obstructive pulmonary disease) Shortness of breath on exertion History of edema History of pain when walking History of echocardiogram History of stress test Cardiology follow-up encounter Hypertension Obesity Coronary artery calcification seen on CAT scan Type 2 diabetes mellitus Strain of muscle, fascia and tendon of pelvis, initial encounter Strain of unspecified muscles, fascia and tendons at thigh level, right thigh, initial encounter Strain of right hip and thigh Strain of right inguinal region Chronic neck and back pain Difficulty balancing Asthma Knee pain History of stomach ulcers Shoulder pain History of arthritis Home Medications ?Medication ?Instructions ?Recorded ?Last Taken ?Type albuterol sulfate 90 mcg/actuation 2 puff inhalation Q6H PRN SOB 06/14/21 06/14/22 History aerosol inhaler atorvastatin 80 mg tablet 80 mg PO QHS CHOLESTEROL 06/14/21 06/13/22 History ipratropium 0.5 mg-albuterol 3 mg 3 ml inhalation 4X/DAY PRN sob 11/27/21 11/25/21 History (2.5 mg base)/3 mL nebulization soln loratadine 10 mg tablet 10 mg PO DAILY allergies 11/27/21 02/21/22 History acetaminophen 500 mg tablet 1,000 mg PO Q8H PRN Pain 02/22/22 06/14/22 History lisinopril 40 mg tablet 40 mg PO DAILY 10/10/22 Unknown History ondansetron 4 mg disintegrating 4 mg PO Q8H PRN PRN Nausea #10 tabs 10/13/22 Unknown Rx tablet blood-glucose meter (OneTouch #1 ea 04/16/23 Unknown Rx Verio Flex Meter) oxycodone-acetaminophen 5 mg-325 1 tab PO Q6H pain 3 days #12 tabs 05/09/23 Unknown Rx mg tablet (Percocet) blood sugar diagnostic (OneTouch #100 ea 08/11/23 Unknown Rx Verio test strips) flash glucose sensor (FreeStyle #2 ea 08/21/23 Unknown Rx Sandra 14 Day Sensor kit) pen needle, diabetic 32 gauge x #150 ea 11/13/23 Unknown Rx 5/32 (BD Ultra-Fine Sissy Pen Needle) Lantus Solostar U-100 Insulin 100 24 unit (0.24 mL) subcut QAM #18 mL 02/24/24 Unknown Rx unit/mL (3 mL) subcutaneous pen (insulin glargine) gabapentin 800 mg tablet 800 mg PO TID 06/25/24 Unknown History hydralazine 50 mg tablet 50 mg PO 4X/DAY blood pressure 06/25/24 Unknown History hydrochlorothiazide 25 mg tablet 25 mg PO DAILY 06/25/24 Unknown History Allergy/AdvReac Type Severity Reaction Status Date / Time duloxetine (From Cymbalta) Allergy Unknown Verified 06/18/24 13:35 pregabalin (From Lyrica) Allergy Unknown Verified 06/18/24 13:35 Penicillins AdvReac Mild leaves a Verified 06/18/24 13:35 bad taste in her mouth. acetaminophen AdvReac Vomiting Verified 06/18/24 13:35 aspirin AdvReac Upset Verified 06/18/24 13:35 Stomach NSAIDS (Non-Steroidal AdvReac Upset Verified 06/18/24 13:35 Anti-Inflamma Stomach Family History Father Cancer Unclear type. Mother Lung cancer Concurrent tobacco use history. Surgical History History of open reduction and internal fixation (ORIF) procedure History of carpal tunnel release History of partial thyroidectomy History of ankle surgery History of History of hysterectomy Social History household members: none Smoking Status: Current every day smoker tobacco type: cigarettes alcohol intake: never substance use type: does not use ROS ROS ED Constitutional Constitutional ED: Denies chills or fever(s) Eyes Eyes: Denies blurry vision or change in vision ENT ENT ED: Denies ear pain, rhinorrhea or sore throat Cardiovascular Cardiovascular: Denies chest pain or palpitations Respiratory/Chest Respiratory/Chest: Denies cough, dyspnea or dyspnea on exertion Gastrointestinal Gastrointestinal: Denies abdominal pain, melena, nausea or vomiting Musculoskeletal Musculoskeletal: Denies arthralgias, back pain or myalgias Integumentary Reports Abrasions Neurologic Neurologic: Denies headache(s) Psychiatric Psychiatric: Reports anxiety Hematologic/Lymphatic Hematologic/Lymphatic: Denies easy bleeding or easy bruising EXAM Physical Exam Const Vital Signs: 06/25/24 19:47 06/25/24 19:50 Temperature 98.5 F Temperature Source Oral Pulse Rate 82 Respiratory Rate 18 Respiratory Effort Normal Non-Labored Respiratory Depth Normal Respiratory Pattern Normal Blood Pressure 138/76 H Blood Pressure Mean 96 Pulse Ox 95 Oxygen Delivery Method Room Air Positive well nourished and well developed Constitutional Narrative: Patient is in obvious discomfort. General Appearance ED: well developed; Negative for NAD HEENT Reports normocephalic, TM's clear and TM's normal bilaterally atraumatic Tympanic Membrane ED: Yes TM's clear Eyes PERRL and EOMs intact bilaterally General Eye ED: Negative for pale conjunctiva or scleral icterus Neck full ROM and no lymphadenopathy Chest Wall inspection of chest normal and palpation of chest normal Resp normal respiratory effort, no retractions and clear to auscultation bilaterally Cardio regular rate, regular rhythm, S1 normal heart sound, S2 normal heart sound and no murmurs GI non-tender, non-distended and no masses GI Narrative: There is no pain the patient over the pubic symphysis or the right or left iliac wing. Auscultation: normoactive bowel sounds Extremity Extremity Narrative: There is slight shortening of the right lower extremity. She is unable to lift the leg off the bed. Logrolling causes significant discomfort in the right groin. There is an abrasion noted over the left knee. The left knee is swollen. There is an effusion. Patient has limited range of motion because of pain. There is no neurovasc optimized of the right or left lower extremity. Neuro oriented x3, CN's II-XII intact bilaterally, moves all extremities and no sensory deficits noted [place] Coma Scale: document GCS findings Spontaneous Obeys Commands Oriented 15 Sensorium / Orientation: alert Psych Mood & Affect: anxious Skin Trauma: abrasion MDM MDM MDM Narrative Medical decision making narrative: Clinically patient has a right hip fracture. Concerned she may have a fracture of the distal femur or some type of injury to her left knee. Will obtain x-ray of the hip and knee and appropriate blood work for preoperative clearance. Lab Data Attestation: I reviewed the patient's lab results. Lab results narrative: CBC is unremarkable. Labs: Laboratory Results - last 24 hr 06/25/24 20:28 WBC 8.6 RBC 4.20 Hgb 13.6 Hct 40.9 MCV 97.4 MCH 32.4 H MCHC 33.3 RDW Std Deviation 47.1 H RDW Coeff of Yudelka 13.3 Plt Count 285 MPV 10.5 Immature Gran % (Auto) 0.900 Neut % (Auto) 56.1 Lymph % (Auto) 35.0 Tompkins % (Auto) 5.8 Eos % (Auto) 1.9 Baso % (Auto) 0.3 Absolute Neuts (auto) 4.8 Absolute Lymphs (auto) 3.00 Nucleated RBC % 0 Sodium 137 Potassium 4.8 Chloride 112 H Carbon Dioxide 20.0 L Anion Gap 5 BUN 22 H Creatinine 1.14 H Estim Creat Clear Calc 46.32 Est GFR (MDRD) Af Amer 63 Est GFR (MDRD) Non-Af 52 L BUN/Creatinine Ratio 19.3 Glucose 184 H Calcium 9.2 Blood Type O POSITIVE Antibody Screen NEGATIVE Radiography Chest X-Ray - ED: 1 View (Chronic changes with no acute change compared to film reviewed from 2022.), 2 View (2 view x-ray of the left knee reveals hardware in place. There is soft tissue swelling and small effusion. There is no fracture noted. This film was also independent reviewed interpreted by me) and Read by ED Physician (Three-view x-ray of the right hip reveals a femoral neck fracture. There is evidence that she had a prior left hip fracture.) Diagnostic Testing: Clinical Impression(s) from Imaging Studies Chest X-Ray 06/25/24 20:14 IMPRESSION: Cardiomegaly and/or pericardial effusion. No focal airspace disease, pleural effusion, or pneumothorax Electronically Signed: Jagdeep GibsonDO at 21:03 EDT , Hip/Pelvis X-Ray 06/25/24 20:15 IMPRESSION: Subcapital to mid cervical right femoral neck fracture with varus angulation. No dislocation. Electronically Signed: Jagdeep PorterDO belkis at 21:00 EDT , Knee X-Ray 06/25/24 20:15 IMPRESSION: 1. Band of sclerosis in the subcortical medial tibial plateau perhaps indicating a minimal impaction fracture. 2. Intramedullary and plate-screw fixation of the distal femur. Electronically Signed: Jagdeep CheSheldon Gibson DO at 21:01 EDT , EKG Initial EKG: Attestation: I personally reviewed and interpreted this EKG as follows: Interpretation: Sinus Rhythm (Rate is 70. [place] to the left. [place] interval is 194 ms. QRS duration 74 ms. QT duration 416 ms. There is no acute ischemic changes. There is artifact due to movement.) Management Discussion w/another healthcare provider: Hospitalist and Manager Analytical (Spoke with Dr. Laron Siu. He was made aware of patient's history, physical findings and imaging results.) Treatment and Re-Evaluation Narrative: Radiologist raise concern for possible tibial plateau fracture we will place patient in knee immobilizer. Discharge Plan Dx/Rx/DC Orders Clinical Impression: Closed fracture of neck of right femur, Hyperlipidemia, Essential hypertension, Type 2 diabetes mellitus, Effusion of left knee, Injury due to fall Disposition Disposition: Acute Care Hospital [facility]
[2024-06-25 21:06] LABS: Anion Gap 5 (5-15); BUN 22 mg/dL (7-18); BUN/Creat Ratio 19.3 RATIO (10-20); Calcium,Total 9.2 mg/dL (8.5-10.1); Chloride 112 mmol/L (98-107); Creatinine, Serum 1.14 mg/dL (0.55-1.02); EST Glomerular Filtration Rate 52 mL/min (>60); Est Glom Filt Rate - Afr Amer 63 mL/min (>60); Estimated Creatinine Clearance 46.32 ml/min; Glucose 184 mg/dL (74-106); Potassium 4.8 mmol/L (3.5-5.1); Sodium Level 137 mmol/L (136-145)
--- NOTE | 2024-06-25 21:23 | HP.PCM.HOS_ITS ---
HPI - General General Date of Admission: 06/25/24 Date of Service: 06/25/24 Chief Complaint: Fall, intractable R hip, L knee pain. HPI Narrative The patient is a 58 y/o F w/ PMHx: Obesity, CKD stage III per GFR trending w/ unclear subtype, Asthma/COPD w/ Allergic rhinitis, Tobacco use, HTN, HLD, Diabetes mellitus type II with chronic neuropathy, Chart reported history of Thyroid disease unclear type not on any regimen per current list who presents to the [facility] ED on 06/25/24 with history of alcohol intake on evening of presentation unfortunately falling noted to have tripped hitting her knees as well as landing on her right hip with significant knee and hip pain worse with any type of movement described as severe, dull, aching and throbbing worse with any activity attempts with inability to even get up off the floor prompting eventual ED evaluation to be cautious. Patient in the ED is rating her pain 10 out of 10 in severity. Patient denies any routine heavy alcohol intake and notes that tonight was the first time in nearly a year she had been drinking. Workup in the ED included CBC with WBC 8.6, human 13.6, platelet 285 without marked shift, BMP with chloride 112,, DEXA 20, BUN/creatinine 22/1.14, GFR 52, glucose 184, plain film of the right hip and pelvis with a subcapital to mid cervical right femoral neck fracture with varus angulation with no dislocation, chest x-ray with cardiomegaly and/or pericardial effusion with no focal airspace disease, pleural effusion or pneumothorax, plain film of the left knee with a band of sclerosis in the subcortical medial tibial plateau potentially indicating a minimal impaction fracture, intramedullary and plate screw fixation of the distal femur, type and screen initiated per ED physician, EKG with SR without acute evidence of ischemia. In the ED patient ministered Zofran 4 mg IV x 1, morphine 4 mg IV x 2. ED discussed case with Dr. Laron Siu and he noted intention to see patient and perform intervention. ED is placing knee immobilizer on the L knee. [facility] Medical History Back pain Osteomyelitis Spinal fusion failure CPAP (continuous positive airway pressure) dependence Sleep apnea Lumbar stenosis Wears glasses Depression Anxiety Thyroid disease Insulin dependent diabetes mellitus Walker as ambulation aid Arthritis History of renal disease High cholesterol Back pain Injury of head and neck Syncope Dietary restriction Gastric reflux Smoker COPD (chronic obstructive pulmonary disease) Shortness of breath on exertion History of edema History of pain when walking History of echocardiogram History of stress test Cardiology follow-up encounter Hypertension Obesity Coronary artery calcification seen on CAT scan Type 2 diabetes mellitus Strain of muscle, fascia and tendon of pelvis, initial encounter Strain of unspecified muscles, fascia and tendons at thigh level, right thigh, initial encounter Strain of right hip and thigh Strain of right inguinal region Chronic neck and back pain Difficulty balancing Asthma Knee pain History of stomach ulcers Shoulder pain History of arthritis Home Medications ?Medication ?Instructions ?Recorded ?Last Taken ?Type albuterol sulfate 90 mcg/actuation 2 puff inhalation Q6H PRN SOB 06/14/21 06/14/22 History aerosol inhaler atorvastatin 80 mg tablet 80 mg PO QHS CHOLESTEROL 06/14/21 06/13/22 History ipratropium 0.5 mg-albuterol 3 mg 3 ml inhalation 4X/DAY PRN sob 11/27/21 11/25/21 History (2.5 mg base)/3 mL nebulization soln loratadine 10 mg tablet 10 mg PO DAILY allergies 11/27/21 02/21/22 History acetaminophen 500 mg tablet 1,000 mg PO Q8H PRN Pain 02/22/22 06/14/22 History lisinopril 40 mg tablet 40 mg PO DAILY 10/10/22 Unknown History ondansetron 4 mg disintegrating 4 mg PO Q8H PRN PRN Nausea #10 tabs 10/13/22 Unknown Rx tablet blood-glucose meter (OneTouch #1 ea 04/16/23 Unknown Rx Verio Flex Meter) oxycodone-acetaminophen 5 mg-325 1 tab PO Q6H pain 3 days #12 tabs 05/09/23 Unknown Rx mg tablet (Percocet) blood sugar diagnostic (OneTouch #100 ea 08/11/23 Unknown Rx Verio test strips) flash glucose sensor (FreeStyle #2 ea 08/21/23 Unknown Rx Sandra 14 Day Sensor kit) pen needle, diabetic 32 gauge x #150 ea 11/13/23 Unknown Rx 32 (BD Ultra-Fine Sissy Pen Needle) Lantus Solostar U-100 Insulin 100 24 unit (0.24 mL) subcut QAM #18 mL 02/24/24 Unknown Rx unit/mL (3 mL) subcutaneous pen (insulin glargine) gabapentin 800 mg tablet 800 mg PO TID 06/25/24 Unknown History hydralazine 50 mg tablet 50 mg PO 4X/DAY blood pressure 06/25/24 Unknown History hydrochlorothiazide 25 mg tablet 25 mg PO DAILY 06/25/24 Unknown History Allergy/AdvReac Type Severity Reaction Status Date / Time duloxetine (From Cymbalta) Allergy Unknown Verified 06/18/24 13:35 pregabalin (From Lyrica) Allergy Unknown Verified 06/18/24 13:35 Penicillins AdvReac Mild leaves a Verified 06/18/24 13:35 bad taste in her mouth. acetaminophen AdvReac Vomiting Verified 06/18/24 13:35 aspirin AdvReac Upset Verified 06/18/24 13:35 Stomach NSAIDS (Non-Steroidal AdvReac Upset Verified 06/18/24 13:35 Anti-Inflamma Stomach Family History Father Cancer Unclear type. Mother Lung cancer Concurrent tobacco use history. Surgical History History of open reduction and internal fixation (ORIF) procedure History of carpal tunnel release History of partial thyroidectomy History of ankle surgery History of History of hysterectomy Social History household members: none Smoking Status: Current every day smoker tobacco type: cigarettes alcohol intake: never substance use type: does not use ROS ROS Narrative Admission Review of Systems: CONSTITUTIONAL: No weight loss, fever, chills, + weakness or fatigue. HEENT: Eyes: No visual loss, blurred vision, double vision or yellow sclerae. Ears, Nose, Throat: No hearing loss, sneezing, congestion, runny nose or sore throat. SKIN: No rash or itching, lesions, wounds except + various abrasions, ecchymoses from recent fall. CARDIOVASCULAR: No chest pain, chest pressure or chest discomfort, palpitations, edema, orthopnea, syncopal events. RESPIRATORY: No shortness of breath, cough or sputum, wheezing, hemoptysis. GASTROINTESTINAL: No anorexia, nausea, vomiting or diarrhea, abdominal pain, melena, BRBPR. GENITOURINARY: No dysuria, frequency, urgency or retention. NEUROLOGICAL: No headache, dizziness, syncope, paralysis, ataxia, numbness or tingling in the extremities, focal weakness, change in bowel or bladder control, seizure. MUSCULOSKELETAL: + muscle, back pain, joint pain or stiffness. HEMATOLOGIC: No anemia, bleeding or bruising. LYMPHATICS: No enlarged nodes. No history of splenectomy. PSYCHIATRIC: No history of depression or anxiety. ENDOCRINOLOGIC: No reports of sweating, cold or heat intolerance. No polyuria or polydipsia. ALLERGIES: No history of asthma, hives, eczema or rhinitis. Vital Signs Vital Signs Vital Signs: 06/25/24 19:47 06/25/24 19:50 Temperature 98.5 F Temperature Source Oral Pulse Rate 82 Respiratory Rate 18 Respiratory Effort Normal Non-Labored Respiratory Depth Normal Respiratory Pattern Normal Blood Pressure 138/76 H Blood Pressure Mean 96 Pulse Ox 95 Oxygen Delivery Method Room Air Weight Weight: 153 lb 14.122 oz Body Mass Index (BMI) 30.0 Physical Exam Narrative Physical Examination: General: Awake, alert, oriented x 3 and cooperative, laying in the ED bed, uncomfortable appearing, reports ongoing pain to the left knee and right hip 10 out of 10 in severity. Skin: Normal color, normal turgor, no icterus, no cyanosis except for occasional stage ecchymoses, abrasions specially with recent fall. HEENT: AT/NC, EOMI, PERRLA, mildly dry MM, no carotid bruits or JVD noted. Lungs: Mildly diminished, greater bases, appropriate effort, no evidence of any distress, no rales, ronchi or wheezing. Heart: Regular rate and rhythm; no gallop, rub audible. Abdomen: Soft, obese, NTTP, ND, mildly hyperactive BS, no appreciated HSM. Extremities: No cyanosis, no clubbing, no marked peripheral distal edema but she does have swelling to the left knee likely related with acute fall with abrasions, no severe shortening or marked rotation to the right leg. Neurological: Patient awake, alert, oriented as noted, cognitive function intact; pupils equally reactive to light and accommodation, cranial nerves grossly normal, moving extremities however extremely limited given lower extremity fractures, patient does admit to and confirmed on palpation peripheral primarily in the feet significant paresthesias with her underlying diabetes, no focal deficits, strength severely globally decreased given acute presentation. Psychiatric: Affect appears uncomfortable, tearful because of pain, appears anxious, no underlying history of anxiety and depression. Results Lab / Micro Data 06/25/24 20:28 06/25/24 20:28 Labs: Laboratory Results - last 24 hr 06/25/24 20:28: WBC 8.6, RBC 4.20, Hgb 13.6, Hct 40.9, MCV 97.4, MCH 32.4 H, MCHC 33.3, RDW Std Deviation 47.1 H, RDW Coeff of Yudelka 13.3, Plt Count 285, MPV 10.5, Immature Gran % (Auto) 0.900, Neut % (Auto) 56.1, Lymph % (Auto) 35.0, Ventura % (Auto) 5.8, Eos % (Auto) 1.9, Baso % (Auto) 0.3, Absolute Neuts (auto) 4.8, Absolute Lymphs (auto) 3.00, Nucleated RBC % 0, Sodium 137, Potassium 4.8, Chloride 112 H, Carbon Dioxide 20.0 L, Anion Gap 5, BUN 22 H, Creatinine 1.14 H, Estim Creat Clear Calc 46.32, Est GFR (MDRD) Af Amer 63, Est GFR (MDRD) Non-Af 52 L, BUN/Creatinine Ratio 19.3, Glucose 184 H, Calcium 9.2 Imaging Radiology Impression Chest X-Ray 06/25/24 20:14 IMPRESSION: Cardiomegaly and/or pericardial effusion. No focal airspace disease, pleural effusion, or pneumothorax Electronically Signed: Jagdeep CheSheldon Gibson DO at 21:03 EDT , Hip/Pelvis X-Ray 06/25/24 20:15 IMPRESSION: Subcapital to mid cervical right femoral neck fracture with varus angulation. No dislocation. Electronically Signed: Jagdeep CheSheldon Gibson DO at 21:00 EDT , Knee X-Ray 06/25/24 20:15 IMPRESSION: 1. Band of sclerosis in the subcortical medial tibial plateau perhaps indicating a minimal impaction fracture. 2. Intramedullary and plate-screw fixation of the distal femur. Electronically Signed: Jagdeep Gibson, DO at 21:01 EDT , Assessment & Plan Assessment/Plan (1) Closed fracture of neck of right femur: PLAN: Plan The patient is a 58 y/o F w/ PMHx: Obesity, CKD stage III per GFR trending w/ unclear subtype, Asthma/COPD w/ Allergic rhinitis, Tobacco use, HTN, HLD, Diabetes mellitus type II with chronic neuropathy, Chart reported history of Thyroid disease unclear type not on any regimen per current list who presents to the [facility] ED on 06/25/24 with history of alcohol intake on evening of presentation unfortunately falling noted to have tripped hitting her knees as well as landing on her right hip with significant knee and hip pain worse with any type of movement described as severe, dull, aching and throbbing worse with any activity attempts with inability to even get up off the floor prompting eventual ED evaluation to be cautious. #1. General debility, R hip pain/L knee pain s/p mechanical fall w/ subcapital to mid cervical right femoral neck fracture with varus angulation with no dislocation as well as questionable minimal impaction fracture of the left tibial plateau fracture: Orthopedic surgery consulted from ED. Will admit to MS, maintain NPO after midnight in case of possible intervention the following day, ramos placement, monitor I/Os, frequent positioning, fall precautions, will obtain echocardiogram given findings commented on on chest x-ray to be cautious, will have as needed pain, anti-emetic regimen. ED noted intention to place knee immobilizer on the L knee. PT/OT following operative intervention. CM consulted for discharge planning. Per surgical risk calculator given underlying current history patient would be moderate risk and would agree to progression however on chest x-ray there is some concern for possible pericardial effusion thus risk at this point would be elevated above this until clarified further therefore will obtain echocardiogram and these will need to be reviewed prior to consideration for possible OR 06/26/2024. In the interim will request troponin and BNP. If there is significant findings on the echocardiogram then cardiology will need to be involved to clear this patient. EKG with SR without acute evidence of ischemia. #2. Diabetes mellitus type II with chronic neuropathy: Hold oral home regimen, continue home insulin regimen, ADA diet until n.p.o. status, accu checks w/ ISS, continue home gabapentin regimen with increase as needed for pain control given acute presentation concurrently as noted. #3. Possible underlying thyroid disease, unclear type: Noted in the chart history, not on any regimen, TSH and free T4 requested to be cautious. #4. COPD/Asthma w/ allergic rhinitis: Will hold home inhaler and in the interim maintain on ATC budesonide therapy, PRN albuterol, HOB, IS parameters, continue home loratadine regimen. #5. Hypertension: Continue home regimen including lisinopril, PRN hydralazine. #6. Hyperlipidemia: Will continue patient on statin therapy. #7. Chronic Kidney Disease Stage III, unclear subtype per GFR trend: Admission BUN/Cr 22/1.14, GFR 52, baseline renal function primarily 1.1-1.3, repeat BMP in AM. #8. Obesity: Weight loss and lifestyle changes encouraged. #9. FRANCISCO: CPAP nightly. #10. DVT prophylaxis: SCDs given planned possible intervention. #11. CODE status: Patient does not have formal healthcare power of erisa attorney or living will set up but she notes has been discussing these items with her family and her daughter would be her medical decision-maker if necessary. Discussed CODE status at length including difference between FULL code, DNR-CCA and DNR-CC status. Following discussions about the differences in these status, requested Full Code status. Charges/Coding Visit Charges Inpatient E&M: 01075 Init Hosp L3
[2024-06-25 22:32] LABS: Troponin-I HS 16 pg/mL (3.0-54.0)
[2024-06-25 22:35] LABS: BNP,B-Type NATRIURETIC PEPTIDE 98.1 pg/mL (0-100)
[2024-06-25 23:07] VITALS: BP 128/71; PULSE 96; RESP 17; TEMP 36.6; O2SAT 96
[2024-06-25] MEDS: oxyCODONE 5 MG Tablet PO (23:39)
[2024-06-25] MEDS: Atorvastatin Calcium 80 MG Tablet PO (23:39)
[2024-06-25] MEDS: Gabapentin 800 MG Tablet PO (23:40)
[2024-06-25] MEDS: Famotidine 20 MG Tablet PO (23:40)
[2024-06-25] MEDS: MELATONIN 3 MG TABLET PO (23:41)
[2024-06-25 23:47] VITALS: BP 125/71; PULSE 67; RESP 15; TEMP 37; O2SAT 95; BMI 29.2
[2024-06-26] VITALS (15 sets, daily range): BP systolic 106–159; BP diastolic 67–92; PULSE 72–91; RESP 13–20; TEMP 36.7–37.1; O2SAT 91–100; BMI 29.2; BMI 29.4
--- NOTE | 2024-06-26 00:15 | CPS ---
Patient refuses CPAP at this time
[2024-06-26 00:27] LABS: Bedside Glucose 131 mg/dL (74-106)
[2024-06-26] MEDS: 0.9% Saline Lock 10 ML Syringe IV ×4 (00:59→10:16)
[2024-06-26] MEDS: proCHLORPERazine 10 MG/2 ML Vial 5 MG IV (00:59)
[2024-06-26] MEDS: Morphine 4 MG/ML Syringe IV ×4 (01:00→10:15)
--- NOTE | 2024-06-26 01:58 | NURSING ---
2300-ice applied to rt hip. pt refused ramos at this time
[2024-06-26 04:49] LABS: Absolute Lymphocyte Count 1.53 X10^3/uL (0.83-4.51); Absolute Neutrophil Count 11.9 X10^3/uL (2.0-7.7); Basophil# 0.02 X10^3/uL; Basophil% 0.1 % (0-1); Eosinophil# 0.07 X10^3/uL; Eosinophils% 0.5 % (0-5); Hematocrit 40.1 % (37-47); Hemoglobin 12.8 g/dL (12.0-15.0); Lymphocyte # 1.53 X10^3/ul (0.83-4.51); Lymphocyte % 10.6 % (19-41); Mean Corp Hgb Conc 31.9 g/dL (32-36); Mean Corpuscular Hgb 31.6 pg (27.0-32.0); Mean Platelet Vol. 10.7 fl (6.2-12.0); Monocyte% 6.2 % (0-10); NRBC Flagged by Analyzer 0 % (0-5); Neutrophil % 82.1 % (47-70); Platelet Count 260 K/mm3 (150-450); RBC Distribution Width CV 13.3 % (11.6-14.6); Red Blood Count 4.05 M/mm3 (4.2-5.4); White Blood Count 14.5 K/mm3 (4.4-11.0)
[2024-06-26 05:39] LABS: ALB/GLOB Ratio 0.9 RATIO (0.9-2.4); AST(SGOT) 14 U/L (15-37); Alanine Aminotransfer ALT/SGPT 16 U/L (13-56); Albumin, Serum 2.9 g/dL (3.2-5.0); Alkaline Phosphatase 82 U/L (45-117); Anion Gap 4 (5-15); BUN 25 mg/dL (7-18); BUN/Creat Ratio 23.4 RATIO (10-20); Chloride 110 mmol/L (98-107); Creatinine, Serum 1.07 mg/dL (0.55-1.02); EST Glomerular Filtration Rate 56 mL/min (>60); Est Glom Filt Rate - Afr Amer 67 mL/min (>60); Estimated Creatinine Clearance 48.72 ml/min; Globulin 3.3 g/dL (2.2-4.2); Glucose 130 mg/dL (74-106); Potassium 4.8 mmol/L (3.5-5.1); Protein, Total 6.2 g/dL (6.4-8.2); Sodium Level 137 mmol/L (136-145); T4 Free Direct 0.76 ng/dL (0.76-1.46)
--- NOTE | 2024-06-26 05:55 | ECHOD_ITS ---
Version 2 Reason For Study: ARRHYTHMIA Procedure This was a 2D Doppler, Color Flow transthoracic echocardiogram. Patient was scanned in supine position during reflux assessment. Exam performed portable in patient room. Left Ventricle Normal LV size. Moderate eccentric left ventricular hypertrophy. Left ventricular systolic function is normal. The left ventricular ejection fraction is 75 %. Stage 1 diastolic dysfunction. No regional wall motion abnormalities noted. Right Ventricle Normal RV size. Normal systolic function. Atria Normal left atrium. Normal right atrium. Mitral Valve Normal mitral valve. Tricuspid Valve Normal tricuspid valve. Mild tricuspid valve insufficiency. Pulmonary artery systolic pressure is 26 mmHg. Aortic Valve Trisinus/trileaflet aortic valve. Pulmonic Valve Normal pulmonic valve. Great Vessels Normal aortic root. The pulmonary artery is normal size. Normal inferior vena cava. Pericardium/Pleural No pericardial effusion. Epicardial fat. MMode/2D Measurements & Calculations LVIDd: 4.6 cm IVSd: 1.6 cm LVOT diam: 1.9 cm LVIDs: 2.2 cm LVPWd: 1.2 cm LVOT area: 2.8 cm2 RVDd: 3.9 cm FS: 52.5 % asc Aorta Diam: 3.2 cm LAV(MOD-bp): 33.8 ml LVAd ap4: 15.1 cm2 LAV(MOD-bp) Indexed: 20.5 ml/m2 LVLd ap4: 6.6 cm LAV(MOD-sp2): 37.7 ml EDV(MOD-sp4): 28.9 ml LAV(MOD-sp4): 27.5 ml EDV(sp4-el): 29.0 ml LVAs ap4: 7.4 cm2 LVLs ap4: 6.1 cm ESV(MOD-sp4): 7.7 ml ESV(sp4-el): 7.6 ml EF(MOD-sp4): 73.4 % EF(sp4-el): 73.8 % LVAd ap2: 16.2 cm2 SV(MOD-sp4): 21.2 ml SV(MOD-sp2): 21.0 ml LVLd ap2: 7.1 cm EDV(MOD-sp2): 31.9 ml EDV(sp2-el): 31.7 ml LVAs ap2: 8.7 cm2 LVLs ap2: 6.0 cm ESV(MOD-sp2): 10.9 ml ESV(sp2-el): 10.7 ml EF(MOD-sp2): 65.7 % SV(sp4-el): 21.4 ml Ao sinus diam: 2.[address] Junction: 2.6 cm LA dimension(2D): 2.9 cm LA A4 area: 13.1 cm2 RA A4 area: 12.7 cm2 TAPSE: 1.6 cm Time Measurements MV dec time: 0.29 sec Doppler Measurements & Calculations MV E max armen: 61.5 cm/sec Lat Peak E' Armen: 6.7 cm/sec Med Peak E' Armen: 5.9 cm/sec MV A max armen: 97.9 cm/sec E/E' lat: 9.2 E/E' med: 10.4 MV E/A: 0.63 MV dec slope: 209.2 cm/sec2 Ao V2 max: 142.1 cm/sec LV V1 max: 118.2 cm/sec Ao max P.1 mmHg LV V1 max P.6 mmHg Ao V2 mean: 114.1 cm/sec LV V1 mean P.2 mmHg Ao mean P.4 mmHg LV V1 mean: 86.0 cm/sec Ao V2 VTI: 27.4 cm LV V1 VTI: 23.1 cm AV (velocity ratio): 0.84 GUILLERMINA(I,D): 2.4 cm2 GUILLERMINA(V,D): 2.4 cm2 SV(LVOT): 65.7 ml PA V2 max: 76.2 cm/sec TR max armen: 243.1 cm/sec PA max PG (full): -0.07 mmHg TR max P.6 mmHg ECHO/Echo Complete Interpretation Summary Moderate eccentric left ventricular hypertrophy. Left ventricular systolic function is normal. The left ventricular ejection fraction is 75 %. No pericardial effusion. Mild tricuspid valve insufficiency. Stage 1 diastolic dysfunction. Ordering Physician: Flor Parks Performed By: Leticia Abraham RDCS
[2024-06-26] MEDS: Gabapentin 800 MG Tablet PO ×2 (05:57→22:45)
[2024-06-26 06:11] LABS: Bedside Glucose 149 mg/dL (74-106)
[2024-06-26] MEDS: Budesonide Respules 0.5 MG/2 ML AMPUL.NEB. INHALATION ×2 (07:14→19:40)
[2024-06-26 10:30] LABS: Bedside Glucose 102 mg/dL (74-106)
--- NOTE | 2024-06-26 10:51 | CASEMGMT ---
VERONICA TOMLIN Assessment: Face to Face with pt for initial transition planning/care coordination assessment. VERONICA TOMLIN introduced self and role at [facility], pt voices understanding and consents to assessment. Pt is A&O x4 and answers all questions appropriately at this time. Care providers, pharmacy, and demographics verified/updated. Admitting Dx: fall right hip fx, left tibial fx Strata Score: NA PCP:Araceli Ramos [employer] Specialists:[facility] Preferred Pharmacy: [facility] Insurance: [facility] Community Plan [facility] Prescription Benefit: yes LNOK: Betzy Miller, mother; Larissa Juancarlos, dtr; Irineora Miller, dtr Living Arrangements: Pt lives alone in an apt that is on the ground level with 2 steps to enter with a rail. Pt reports typically she is I in ADLs and denies concerns at home. Transportation: Pt does not drive, she uses insurance for transportation to medical appts. DME:cane, quad cane, rollator, CPAP, insulin with sufficient supply of needles; BGM with sufficient supply of strips and lancets HHC/SNF: [facility] the past and has been to [facility] and [facility] in the past. Pt states no concerns with going home at time of dc. Pt states she has a neighbor who can stay with her to assist with her care. Pt to have surgery today. She is aware that therapy will work with her post surgery. VERONICA TOMLIN to follow status post op for dc plan. Pt states no further concerns/needs. CM to follow. Advised pt to ask CM if any further question/concerns/needs arise, voices understanding. Pt Goal: Home with neighbors help Plan: TBD pending surgery course of hospitalization and therapy sarai post op Jackie MARTIN CM
--- NOTE | 2024-06-26 11:51 | NURSING ---
1140 spoke to [facility] in pharmacy and requested for the antibiotic to be sent to OR.
--- NOTE | 2024-06-26 12:10 | PCM.CONS.GEN ---
Assessment & Plan Assessment/Plan (1) Closed fracture of neck of right femur: PLAN: Plan of care was discussed and reviewed at length with the patient by Dr. Laron Siu including surgical and nonsurgical treatment measures. At this time the patient does wish to proceed with a cemented MDM right total hip arthroplasty. She understands this is the recommended surgical treatment measure as a result of her pre-existing osteoarthritis life expectancy greater than 10 years and history of lumbar fusion as well as pre-existing osteoporosis. Potential risk benefits and complications of the surgical procedure were discussed and reviewed at length including but not limited to infection nerve and blood vessel damage persistent pain numbness tingling paresthesias blood clot pulmonary embolism and the requirement for possible further surgery she expressed full understanding has no further questions for Dr. Laron Siu does agree to proceed with the above-stated procedure and has signed the appropriate surgery consent form. She understands that we would recommend anticoagulation/DVT prophylaxis x 1 month postoperative. With her aspirin intolerance we will have to come up with a definitive plan of care/recommendation for her DVT prophylaxis. (2) Contusion of left knee: PLAN: Patient understands with her complex previous left hip and distal femur surgery by [facility] in November 2023 that is still actively being treated and sequela we will not be over taking care of this current injury. She understands that on x-ray and physical exam there is a possible concern for medial tibial plateau fracture not fully ruled out by x-ray. She understands that this will complicate her recovery if indeed she has a fracture as it would require a nonweightbearing status. We will plan to order a CT scan of the left knee with metal suppression techniques to evaluate for/rule out medial tibial plateau fracture. HPI Consult Data Date of Consult: 06/26/24 HPI Narrative Reason for Consultation: Right hip injury/left knee injury HPI Narrative: MILY CHILDRESS, is a 58 F who presented to [facility] emergency department after a fall yesterday in her home. She lives alone. She states that she was consuming alcohol. She states she does not routinely consume alcohol. She is not exactly sure how she fell she feels she tripped. She landed on her right side. No head injury or loss of consciousness. She denies any pre-existing pain prior to the injury. She also injured her left knee at the time of her fall. She had been walking with a walker as a result of left leg surgery by [facility] in November 2023. She has not fully healed these fractures. She is still under their care. She denies a history of DVT or pulmonary embolism. She does have a history of diabetes myelitis. Per patient report her most recent hemoglobin A1c was 7.0. She does admit to 1 pack/day cigarette use. Her injury in November 2023 also resulted from a fall. She is not exactly sure how it happens. She does feel she has fallen on several occasions over the past year but they have not resulted in any significant injury. She denies any right knee foot or ankle symptoms at this time. She does complain of right hip symptoms left knee symptoms. She does have numbness and tingling into both feet. 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 She does admit to a history of osteoporosis. She states she is under the care of a provider and has annual infusions for this. She has had a previous lumbar fusion by Dr. Beck Medellin L4-5 in the past. She is not currently having any back symptoms. No fevers chills or other signs of infection. Patient's allergy to aspirin is with GI upset. She is not sure what they used for anticoagulation following her November surgery. Her allergy to penicillin is not anaphylactic it leaves a poor taste in her mouth. [facility] Medical History Alcohol use Diabetes Post-menopausal Renal disease GERD (gastroesophageal reflux disease) Back pain due to injury Back pain Osteomyelitis Spinal fusion failure CPAP (continuous positive airway pressure) dependence Sleep apnea Lumbar stenosis Wears glasses Depression Anxiety Thyroid disease Insulin dependent diabetes mellitus Walker as ambulation aid Arthritis History of renal disease High cholesterol Back pain Injury of head and neck Syncope Dietary restriction Gastric reflux Smoker COPD (chronic obstructive pulmonary disease) Shortness of breath on exertion History of edema History of pain when walking History of echocardiogram History of stress test Cardiology follow-up encounter Hypertension Obesity Coronary artery calcification seen on CAT scan Type 2 diabetes mellitus Strain of muscle, fascia and tendon of pelvis, initial encounter Strain of unspecified muscles, fascia and tendons at thigh level, right thigh, initial encounter Strain of right hip and thigh Strain of right inguinal region Chronic neck and back pain Difficulty balancing Asthma Knee pain History of stomach ulcers Shoulder pain History of arthritis Home Medications ?Medication ?Instructions ?Recorded ?Last Taken ?Type albuterol sulfate 90 mcg/actuation 2 puff inhalation Q6H PRN SOB 06/14/21 06/14/22 History aerosol inhaler atorvastatin 80 mg tablet 80 mg PO QHS CHOLESTEROL 06/14/21 06/13/22 History ipratropium 0.5 mg-albuterol 3 mg 3 ml inhalation 4X/DAY PRN sob 11/27/21 11/25/21 History (2.5 mg base)/3 mL nebulization soln loratadine 10 mg tablet 10 mg PO DAILY allergies 11/27/21 02/21/22 History acetaminophen 500 mg tablet 1,000 mg PO Q8H PRN Pain 02/22/22 06/14/22 History lisinopril 40 mg tablet 40 mg PO DAILY 10/10/22 Unknown History ondansetron 4 mg disintegrating 4 mg PO Q8H PRN PRN Nausea #10 tabs 10/13/22 Unknown Rx tablet blood-glucose meter (OneTouch #1 ea 04/16/23 Unknown Rx Verio Flex Meter) oxycodone-acetaminophen 5 mg-325 1 tab PO Q6H pain 3 days #12 tabs 05/09/23 Unknown Rx mg tablet (Percocet) blood sugar diagnostic (OneTouch #100 ea 08/11/23 Unknown Rx Verio test strips) flash glucose sensor (FreeStyle #2 ea 08/21/23 Unknown Rx Sandra 14 Day Sensor kit) pen needle, diabetic 32 gauge x #150 ea 11/13/23 Unknown Rx 5/32 (BD Ultra-Fine Sissy Pen Needle) Lantus Solostar U-100 Insulin 100 24 unit (0.24 mL) subcut QAM #18 mL 02/24/24 Unknown Rx unit/mL (3 mL) subcutaneous pen (insulin glargine) gabapentin 800 mg tablet 800 mg PO TID 06/25/24 Unknown History hydralazine 50 mg tablet 50 mg PO 4X/DAY blood pressure 06/25/24 Unknown History hydrochlorothiazide 25 mg tablet 25 mg PO DAILY 06/25/24 Unknown History Allergy/AdvReac Type Severity Reaction Status Date / Time duloxetine (From Cymbalta) Allergy Unknown Verified 06/18/24 13:35 pregabalin (From Lyrica) Allergy Unknown Verified 06/18/24 13:35 Penicillins AdvReac Mild leaves a Verified 06/18/24 13:35 bad taste in her mouth. acetaminophen AdvReac Vomiting Verified 06/18/24 13:35 aspirin AdvReac Upset Verified 06/18/24 13:35 Stomach NSAIDS (Non-Steroidal AdvReac Upset Verified 06/18/24 13:35 Anti-Inflamma Stomach Family History Father Cancer Unclear type. Mother Lung cancer Concurrent tobacco use history. Surgical History S/P hysterectomy History of open reduction and internal fixation (ORIF) procedure History of carpal tunnel release History of partial thyroidectomy History of ankle surgery History of History of hysterectomy Social History household members: none Smoking Status: Current every day smoker tobacco type: cigarettes alcohol intake: never substance use type: does not use ROS ROS Narrative Review of systems were personally reviewed by myself all pertinent positives and negatives documented in the electronic medical record Physical Exam Narrative The patient is resting in the supine position in the hospital bed. No acute distress at rest breathing easily without respiratory distress. Right lower extremity is shortened and externally rotated. Right knee is without deformity or tenderness. No calf pain or swelling on the right. No tenderness over the ankle on the right. Patient is able to actively plantar and dorsiflex bilateral ankles against resistance. Pedal pulses present equal bilaterally neurovascularly intact. Left hip is with well-healed scar. Gentle mobility left hip no significant pain. Left knee is with abrasions anteriorly well-healed scar laterally. Left knee is currently without palpable effusion tenderness to palpation over the medial proximal tibia on the left. Patient is unable to perform a straight leg raise on the left. No calf pain or swelling on the left. Medical Records Data Attestation: I reviewed the patient's medical records Lab / Micro Data Attestation: I reviewed the patient's lab results. 06/26/24 03:30 06/26/24 03:30 Labs: Laboratory Results - last 24 hr 06/25/24 20:28: WBC 8.6, RBC 4.20, Hgb 13.6, Hct 40.9, MCV 97.4, MCH 32.4 H, MCHC 33.3, RDW Std Deviation 47.1 H, RDW Coeff of Yudelka 13.3, Plt Count 285, MPV 10.5, Immature Gran % (Auto) 0.900, Neut % (Auto) 56.1, Lymph % (Auto) 35.0, Weld % (Auto) 5.8, Eos % (Auto) 1.9, Baso % (Auto) 0.3, Absolute Neuts (auto) 4.8, Absolute Lymphs (auto) 3.00, Nucleated RBC % 0, Sodium 137, Potassium 4.8, Chloride 112 H, Carbon Dioxide 20.0 L, Anion Gap 5, BUN 22 H, Creatinine 1.14 H, Estim Creat Clear Calc 46.32, Est GFR (MDRD) Af Amer 63, Est GFR (MDRD) Non-Af 52 L, BUN/Creatinine Ratio 19.3, Glucose 184 H, Calcium 9.2, Magnesium 2.0, Troponin I High Sens 16, B-Natriuretic Peptide 98.1, Blood Type O POSITIVE, Antibody Screen NEGATIVE 06/25/24 23:45: POC Glucose 131 H 06/26/24 03:30: WBC 14.5 H, RBC 4.05 L, Hgb 12.8, Hct 40.1, MCV 99.0, MCH 31.6, MCHC 31.9 L, RDW Std Deviation 49.0 H, RDW Coeff of Yudelka 13.3, Plt Count 260, MPV 10.7, Immature Gran % (Auto) 0.500, Neut % (Auto) 82.1 H, Lymph % (Auto) 10.6 L, Weld % (Auto) 6.2, Eos % (Auto) 0.5, Baso % (Auto) 0.1, Absolute Neuts (auto) 11.9 H, Absolute Lymphs (auto) 1.53, Nucleated RBC % 0, Sodium 137, Potassium 4.8, Chloride 110 H, Carbon Dioxide 23.0, Anion Gap 4 L, BUN 25 H, Creatinine 1.07 H, Estim Creat Clear Calc 48.72, Est GFR (MDRD) Af Amer 67, Est GFR (MDRD) Non-Af 56 L, BUN/Creatinine Ratio 23.4 H, Glucose 130 H, Calcium 9.0, Total Bilirubin 0.30, AST 14 L, ALT 16, Alkaline Phosphatase 82, Total Protein 6.2 L, Albumin 2.9 L, Globulin 3.3, Albumin/Globulin Ratio 0.9, TSH 7.520 H, Free T4 0.76 06/26/24 05:53: POC Glucose 149 H 06/26/24 10:08: POC Glucose 102 Imaging Radiology Impression Chest X-Ray 06/25/24 20:14 IMPRESSION: Cardiomegaly and/or pericardial effusion. No focal airspace disease, pleural effusion, or pneumothorax Electronically Signed: Jagdeep GibsonDO at 21:03 EDT , Hip/Pelvis X-Ray 06/25/24 20:15 IMPRESSION: Subcapital to mid cervical right femoral neck fracture with varus angulation. No dislocation. Electronically Signed: Jagdeep PorterDO belkis at 21:00 EDT , Knee X-Ray 06/25/24 20:15 IMPRESSION: 1. Band of sclerosis in the subcortical medial tibial plateau perhaps indicating a minimal impaction fracture. 2. Intramedullary and plate-screw fixation of the distal femur. Electronically Signed: Jagdeep PorterDO belkis at 21:01 EDT , Echocardiogram 06/26/24 05:55 Interpretation Summary Normal LV size and function Normal RV size and function Moderate LVH EF 75% Normal LA and RA size stage 1 diastilc dysfunction Mild TR No pericardial effusion. Epicardial fat pad noted. Ordering Physician: Flor Parks Performed By: Leticia Abraham RDCS
[2024-06-26 12:11] LABS: Bedside Glucose 85 mg/dL (74-106)
--- NOTE | 2024-06-26 12:13 | PRE.ANES_ITS ---
ASA Classification* ASA Classification ASA Classification: 3 and E Assessment & Plan Anesthesia* Anesthesia Assessment Anesthesia Assessment: Discussed sedation and/or anesthesia options, risks, benefits, and alternatives with patient/parents/legal guardian/POA. Questions invited. The patient/parents/legal guardian/POA seems to understand and agrees to proceed with anesthesia plan. Reviewed the physical assessment, medical history, allergy history and patient home medications list prior to surgery/procedure/anesthetic and documented any changes. Performed airway and anesthesia risk assessments. Anesthesia Type Anesthesia Type: General (see written pre anesthesia record for full assessment) Anesthesia Focused Assessment* Temperature: 98.7 F Pulse Rate: 72 Blood Pressure: 144/81 Respiratory Rate: 20 Pulse Ox: 100 Airway Assessment Mouth opens: 2 cm Mallampati Score: II Focused Labs Anesthesia Preop lab: CBC WBC 14.5 K/mm3 (4.4-11.0) H 06/26/24 03:30 RBC 4.05 M/mm3 (4.2-5.4) L 06/26/24 03:30 Hgb 12.8 g/dL (12.0-15.0) 06/26/24 03:30 Hct 40.1 % (37-47) 06/26/24 03:30 Plt Count 260 K/mm3 (150-450) 06/26/24 03:30 CHEMISTRY Potassium 4.8 mmol/L (3.5-5.1) 06/26/24 03:30 Sodium 137 mmol/L (136-145) 06/26/24 03:30 Magnesium 2.0 mg/dL (1.6-2.6) 06/25/24 20:28 Phosphorus 3.5 mg/dL (2.5-4.9) 04/23/22 04:52 BUN 25 mg/dL (7-18) H 06/26/24 03:30 Creatinine 1.07 mg/dL (0.55-1.02) H 06/26/24 03:30 Glucose 130 mg/dL (74-106) H 06/26/24 03:30 POC Glucose 85 mg/dL (74-106) 06/26/24 11:28 TSH 7.520 uIU/mL (0.358-3.740) H 06/26/24 03:30 COAG PT 14.8 SECONDS (11.7-14.9) 03/22/22 13:45 Pre-Assessment Diagnosis/Proposed Procedure Planned Operative Procedure(s): THR Anesthesia History Anesthesia History - inventory associate: Anesthesia History - inventory associate Hx Hospitalization Any Problems With Anesthesia No 06/26/24 03:54 Cholinesterase deficiency No 06/26/24 03:54 You/Your Family Experience No 06/26/24 03:54 fever (hyperthermia) with Relationship Recent Exposure to Contagious No 06/26/24 03:54 Disease Does patient have nerve No 06/26/24 03:54 stimulator Patient instructed to have No 06/26/24 03:54 device shut off --Does patient have Pacemaker No 06/26/24 10:04 or ICD? When Was Last Pacemaker Check QUESTION #4 FULL TEXT: You/Your Family Experience fever (hyperthermia) with Anesthesia Last Oral Intake Last Oral intake: Last Oral Intake NPO since 01:00 06/26/24 10:04 Meds taken in AM with sips of water? Meds patient instructed to take am of surgery PONV PONV - inventory associate: PONV - inventory associate Female HX of Motion Sickness HX of N/V After Surgery Non-Smoker Duration of Surgery greater than 60 minutes Number of Risk Factors PONV Score Height & Weight Height & Weight: Anesthesia: Height & Weight Height 5 ft 06/26/24 10:04 Weight: 68.039 kg 06/26/24 10:04 Body Mass Index (BMI) 29.2 06/26/24 10:04 Respiratory Assessment Respiratory Assessment - inventory associate: Respiratory Tract Infection Hx - inventory associate Hx Respiratory Tract Infection No 06/26/24 03:54 STOP Sleep Apnea STOP Sleep Apnea - inventory associate: STOP Sleep Apnea - inventory associate Hx Hypertension Yes 06/25/24 23:47 Hx Sleep Apnea Yes 06/25/24 23:47 CPAP No 06/25/24 23:47 BIPAP No 06/25/24 23:47 Do you snore loudly (louder than talking or can be heard Do you often feel tired/ fatigued/ sleepy during daytime? Has anyone observed you stop breathing during sleep? STOP Results Positive 06/25/24 23:47 QUESTION #5 FULL TEXT : Do you snore loudly (louder than talking or can be heard through closed doors)? Tobacco Use History Tobacco Use History - inventory associate: Tobacco Use History - inventory associate Tobacco Use Smoking Status Current every day smoker 06/25/24 23:47 Hx Tobacco Use Yes 06/25/24 23:47 Years Smoking 35 06/25/24 23:47 Packs Smoked per Day 1 06/25/24 23:47 Smoking Cessation Date was within the last 15 years Hx Smoking Cessation Date Hx Smoking Cessation No 06/25/24 23:47 Counseling Hematologic Medial History Hematologic Hx - inventory associate: Hematologic Medical Hx - sports intern Hx of Blood Transfusion No 06/25/24 23:47 Hx of Transfusion in last 3 No 06/25/24 23:47 Months Date of Last Transfusion (if within last 3 months) Ever experience any problems No 06/25/24 23:47 with transfusion(s)? Specify any problems Hx of Preganancy in last 3 No 06/25/24 23:47 Months Nurse Filling Out Transfusion [email or web address] 06/25/24 23:47 & Questions: Date: 06/25/24 06/25/24 23:47 Time: 23:52 06/25/24 23:47 Patient unable to answer at this time (ie. confused, unrespo /Reproduction History /Reproductive History - inventory associate: /Reproductive Hx- inventory associate Hx Now No: hysterectomy 06/26/24 03:54 Gestational Age (in weeks): EDC: Hx Hx Para Hx Section SAB No 06/26/24 03:54 Active Medications Active Medications: Current Medications Generic Name Dose Route Start Last Admin Trade Name Freq PRN Reason Stop Dose Admin Al Hydroxide/Mg Hydroxide 30 ml 06/25/24 23:12 Mag Hydrox/Al Hydrox/Simeth 30 Ml Udc PO Q6H PRN PRN Gastric Burning Albuterol Sulfate 2.5 mg 06/25/24 23:12 Albuterol 2.5 Mg/3 Ml Vial.Neb. INHALATION Q2H PRN PRN Dyspnea, wheezing Atorvastatin Calcium 80 mg 06/25/24 23:12 06/25/24 23:39 Atorvastatin Calcium 80 Mg Tablet PO 80 mg QHS RICCI Administration Budesonide 0.5 mg 06/25/24 23:12 06/26/24 07:14 Budesonide Respules 0.5 Mg/2 Ml Ampul.Neb. INHALATION 0.5 mg BID.RT RICCI Administration Famotidine 20 mg 10/18/24 23:12 06/26/24 09:29 Famotidine 20 Mg Tablet PO Not Given BID RICCI Gabapentin 800 mg 06/25/24 23:12 06/26/24 05:57 Gabapentin 800 Mg Tablet PO 800 mg TID RICCI Administration Glucagon 1 mg 06/25/24 23:12 Glucagon 1 Mg/Ml Syringe IM X1 PRN HYPOGLYCEMIA Protocol Guaifenesin 20 ml 06/25/24 23:12 Guaifenesin 10 Ml Udc (200mg/10ml) PO Q4H PRN PRN COUGH Hydralazine HCl 10 mg 06/25/24 23:12 Hydralazine 20 Mg/Ml Vial IV Q4H PRN PRN SBP > 160 Protocol Dextrose 250 mls @ 0 mls/hr 06/25/24 23:12 Dextrose 10%-Water IV .Q0M PRN HYPOGLYCEMIA Protocol As Directed Sodium Chloride 500 mls @ 15 mls/hr 06/25/24 23:59 IV .[id number] PRN Saline Flush Sodium Chloride 500 mls @ 15 mls/hr 06/25/24 23:59 IV .[id number] PRN Additional IVPB Infusion Insulin Glargine 24 unit 06/26/24 10:00 06/26/24 10:16 Insulin Glargine-Yfgn 100 Unit/Ml Pen SC Not Given QAM [facility] Insulin Human Lispro 0 unit 06/25/24 23:12 06/26/24 10:23 Insulin Lispro 100 Unit/Ml Insuln.Pen SC Not Given ACHS [facility] Protocol Levothyroxine Sodium 88 mcg 06/26/24 08:00 06/26/24 09:29 Levothyroxine 88 Mcg Tablet PO Not Given DAILY@0600 [facility] Lisinopril 40 mg 06/26/24 10:00 06/26/24 09:30 Lisinopril 40 Mg Tablet PO Not Given DAILY [facility] Protocol Loratadine 10 mg 06/26/24 10:00 06/26/24 09:29 Loratadine 10 Mg Tablet PO Not Given DAILY RICCI Melatonin 3 mg 06/25/24 23:12 06/25/24 23:41 Melatonin 3 Mg Tablet PO 3 mg QHS PRN PRN Administration INSOMNIA Morphine Sulfate 2 - 4 mg 06/25/24 23:12 06/26/24 10:15 Morphine 4 Mg/Ml Syringe IV 4 mg Q2H PRN PRN Administration Pain Score 4-10 Nicotine 21 mg 06/25/24 23:12 Nicotine 21 Mg Patch TD DAILY PRN PRN Nicotine Craving Ondansetron HCl 4 mg 06/25/24 23:12 Ondansetron 4 Mg/2 Ml Vial IV Q8H PRN PRN NAUSEA/VOMITING Oxycodone HCl 5 - 10 mg 06/25/24 23:12 06/25/24 23:39 Oxycodone 5 Mg Tablet PO 10 mg Q4H PRN PRN Administration Pain Score 4-10 Prochlorperazine Edisylate 5 mg 06/25/24 23:12 06/26/24 00:59 Prochlorperazine 10 Mg/2 Ml Vial IV 5 mg Q4H PRN PRN Administration Breakthrough nausea/vomiting Senna/Docusate Sodium 2 tablet 06/25/24 23:12 06/26/24 09:30 Senna/Docusate Sodium 1 Tablet PO Not Given BID RICCI Sodium Chloride 10 - 40 ml 06/25/24 23:59 06/26/24 10:16 0.9% Saline Lock 10 Ml Syringe IV 10 ml UD PRN Administration SALINE FLUSH PFSH Medical History Alcohol use Diabetes Post-menopausal Renal disease GERD (gastroesophageal reflux disease) Back pain due to injury Back pain Osteomyelitis Spinal fusion failure CPAP (continuous positive airway pressure) dependence Sleep apnea Lumbar stenosis Wears glasses Depression Anxiety Thyroid disease Insulin dependent diabetes mellitus Walker as ambulation aid Arthritis History of renal disease High cholesterol Back pain Injury of head and neck Syncope Dietary restriction Gastric reflux Smoker COPD (chronic obstructive pulmonary disease) Shortness of breath on exertion History of edema History of pain when walking History of echocardiogram History of stress test Cardiology follow-up encounter Hypertension Obesity Coronary artery calcification seen on CAT scan Type 2 diabetes mellitus Strain of muscle, fascia and tendon of pelvis, initial encounter Strain of unspecified muscles, fascia and tendons at thigh level, right thigh, initial encounter Strain of right hip and thigh Strain of right inguinal region Chronic neck and back pain Difficulty balancing Asthma Knee pain History of stomach ulcers Shoulder pain History of arthritis Home Medications ?Medication ?Instructions ?Recorded ?Last Taken ?Type albuterol sulfate 90 mcg/actuation 2 puff inhalation Q6H PRN SOB 06/14/21 06/14/22 History aerosol inhaler atorvastatin 80 mg tablet 80 mg PO QHS CHOLESTEROL 06/14/21 06/13/22 History ipratropium 0.5 mg-albuterol 3 mg 3 ml inhalation 4X/DAY PRN sob 11/27/21 11/25/21 History (2.5 mg base)/3 mL nebulization soln loratadine 10 mg tablet 10 mg PO DAILY allergies 11/27/21 02/21/22 History acetaminophen 500 mg tablet 1,000 mg PO Q8H PRN Pain 02/22/22 06/14/22 History lisinopril 40 mg tablet 40 mg PO DAILY 10/10/22 Unknown History ondansetron 4 mg disintegrating 4 mg PO Q8H PRN PRN Nausea #10 tabs 10/13/22 Unknown Rx tablet blood-glucose meter (OneTouch #1 ea 04/16/23 Unknown Rx Verio Flex Meter) oxycodone-acetaminophen 5 mg-325 1 tab PO Q6H pain 3 days #12 tabs 05/09/23 Unknown Rx mg tablet (Percocet) blood sugar diagnostic (OneTouch #100 ea 08/11/23 Unknown Rx Verio test strips) flash glucose sensor (FreeStyle #2 ea 08/21/23 Unknown Rx Sandra 14 Day Sensor kit) pen needle, diabetic 32 gauge x #150 ea 11/13/23 Unknown Rx 5/32 (BD Ultra-Fine Sissy Pen Needle) Lantus Solostar U-100 Insulin 100 24 unit (0.24 mL) subcut QAM #18 mL 02/24/24 Unknown Rx unit/mL (3 mL) subcutaneous pen (insulin glargine) gabapentin 800 mg tablet 800 mg PO TID 06/25/24 Unknown History hydralazine 50 mg tablet 50 mg PO 4X/DAY blood pressure 06/25/24 Unknown History hydrochlorothiazide 25 mg tablet 25 mg PO DAILY 06/25/24 Unknown History Allergy/AdvReac Type Severity Reaction Status Date / Time duloxetine (From Cymbalta) Allergy Unknown Verified 06/18/24 13:35 pregabalin (From Lyrica) Allergy Unknown Verified 06/18/24 13:35 Penicillins AdvReac Mild leaves a Verified 06/18/24 13:35 bad taste in her mouth. acetaminophen AdvReac Vomiting Verified 06/18/24 13:35 aspirin AdvReac Upset Verified 06/18/24 13:35 Stomach NSAIDS (Non-Steroidal AdvReac Upset Verified 06/18/24 13:35 Anti-Inflamma Stomach Family History Father Cancer Unclear type. Mother Lung cancer Concurrent tobacco use history. Surgical History S/P hysterectomy History of open reduction and internal fixation (ORIF) procedure History of carpal tunnel release History of partial thyroidectomy History of ankle surgery History of History of hysterectomy Social History household members: none Smoking Status: Current every day smoker tobacco type: cigarettes alcohol intake: never substance use type: does not use Review of Systems (Anesthesia) ROS Narrative System reviewed and no additional complaints, except as documented.
[2024-06-26] MEDS: Cefazolin 2 GM in Syringe IV (12:35)
--- NOTE | 2024-06-26 12:39 | CT_ITS ---
EXAM: CT LEFT LOWER EXTREMITY WITHOUT INTRAVENOUS CONTRAST, KNEE CLINICAL INDICATION: pain -- w/metal suppression without contrast TECHNIQUE: Helically acquired images were obtained of the left knee without intravenous contrast. This CT exam was performed using one or more of the following dose reduction techniques: automated exposure control, adjustment of the mA and/or kV according to patient size, and/or use of iterative reconstruction technique. COMPARISON: 05/31/2024 FINDINGS: BONES/JOINTS: There is a fracture through the patella. There is beam hardening artifact from intramedullary rickey as well as a sideplate and screw of the femur. Preservation of the joint space. No sclerotic or destructive changes. SOFT TISSUES: Unremarkable. No soft tissue swelling or gas. No radiopaque foreign body. CT/Extremity Lower without Contra IMPRESSION: 1. Fracture through the patella. This was not present on the previous exam. 2. Intramedullary hardware as well as sideplate and screws position. Electronically Signed: Juan Daniel Feliciano MD at 17:23 EDT ,
[2024-06-26] MEDS: TXA 1000mg in NS100 100ml (IVPB at Incision) 660 MG IV (12:45)
--- NOTE | 2024-06-26 13:32 | NURSING ---
pt to OR area w/ payroll analyst via bed for procedure
[2024-06-26] MEDS: JPS (Morphine 10mg/ml) OPERA.SITE (14:00)
[2024-06-26] MEDS: TXA 1000mg in NS100 100ml (IVPB at Closure) 660 MG IV (14:13)
--- NOTE | 2024-06-26 14:15 | OP.PCM_ITS ---
Problems Associated Problem List Diagnoses (1) Closed fracture of neck of right femur: Operative Report Date of Procedure: 06/26/24 Preoperative diagnosis: Right hip displaced femoral neck fracture/pre-existing hip arthritis Postoperative diagnosis: Same Operation: Right total hip replacement surgery Surgeon: Dr. Laron Siu MD Field Assessor: Love Fierro PA-C EBL: 250 Fluid in: 1200 Anesthesia: General Anesthesiologist; Dr. Montanez / JUSTINA Special medications: IV [Ancef] 2 g, IV Tranexamic acid 1 g x 2 Indications for surgery : Patient is a 58 -year-old [female] with without history of right severe hip pain and she fell yesterday fracturing it.. Due to patient's young age, arthritis noted on x-ray, displaced fracture of femoral neck, they decided to proceed with hip replacement surgery. Appropriate informed consent was obtained and signed. Appropriate medical workup was performed preoperatively and patient was deemed safe for surgery by the anesthesia department medical laboratory assistant, physician assistant professor of anthropology, was utilized throughout the entire procedure. They were vital in helping with patient positioning, holding of retractors, exposing the tissues adequately for safe completion of the procedure including cutting of the bone, helping district associate judge appropriate alignment and sizing of the components, implantation of the components, as well as wound closure, bandage application, and safe patient transfer. Without salesperson surgical appliances, physician assistant professor of anthropology, surgical time would have been significantly increased, and surgical outcome would have been less optimal. Operative findings: Patient had placed femoral neck fracture and arthritis of the involved hip joint. They underwent a small posterior approach to the hip. We utilized a size [4 cemented Accolade stem 127 degree neck angle, a press fit acetabular component size 48, 38 MDM cementless liner, and 22.2 femoral head +3 neck length, X.3 insert for MDM liner 22.2/38. 1 acetabular bone screw 25 mm x 6.5 mm. This reproduced there anatomy nicely. 12 distal centralizer. Small bucks plug cement restrictor. Clinically good leg lengths were noted. Good hip stability through range of motion with no undue pistoning. Standard wound closure in layers, followed by hermila, followed by Mepilex dressing Details of procedure: Patient was taken to the operating room and transferred to the operating table. Given appropriate anesthetic agent by that department. Patient was then rolled into a lateral decubitus position with the involved painful hip up in the air. Appropriate timeouts had been performed. Hip had been appropriately marked with my initials. Padded anterior and posterior position was utilized. Axillary roll placed. AMEE hose and SCDs on the nonoperative limb utilized throughout the procedure. Operative lower extremity was prepped padded and draped in the usual orthopedic sterile fashion for the procedure. I injected the pain relieving solution in the standard sterile technique of the soft tissues of the hip carefully. Incision was made curving over the tip of the greater trochanter posteriorly. Full thickness skin flaps are raised down on the fascia deb. Fascia deb was opened in length with our incision. Charnley self-retaining hip retractor was carefully placed by the surgeon. Leg was appropriately rotated by the assistant professor of anthropology. Retractor was used to lift the abductors anteriorly to visualize the piriformis tendon and external rotators. Piriformis tendon and external rotators released off the greater trochanter with the Bovie. Tagging suture was placed in each of these separately. We then split the tissue superior to the piriformis tendon through capsule and onto the pelvis. Acetabular labrum was also divided. Femoral neck cut was carried out and bone piece removed. Femoral head was removed bone hook with traction and manipulation arthritic femoral head was dislocated from the pelvis. Arthritic femoral head removed and measured and inspected. Inferior acetabular retractor was placed by the surgeon, held by the assistant professor of anthropology. Bone hook utilized to pull the proximal femur anteriorly. Labrum removed from about the acetabulum a long knife. Tissue removed from the depth of the acetabulum with the Bovie. Arthritic acetabulum was noted. We began reaming with the appropriate sized reamer based on the measurement of the femoral head. Reaming was done with 45? of abduction, 20? of anteversion, reproducing there anatomy. Reaming was done incrementally up to the appropriate size creating a smooth cylindrical acetabulum was done down to healthy bone. Trial acetabular component 2 millimeters smaller than the largest reamer was utilized with the outrigger device. Appropriate abduction and anteversion confirmed as well as size and position of cup. We irrigated with bulb syringe saline. Appropriate acetabular opponent was opened and hammered into position with the outrigger device, with 45? of abduction and 20 degrees of anteversion. We could see through the hole in the cup it was adequately down onto the bone in the pelvis. Good stability was noted. 1 bone screw placed to further stabilize the acetabular component. liner for MDM was appropriately positioned, hammered in. Acetabular retractors removed. A proximal femoral elevator utilized. Held by the assistant professor of anthropology. We used a sharp awl entering down inside the bone of the proximal femur. Utilized the gracie cutting osteotome the proximal lateral greater trochanteric region. The fragment removed. Broaching was then done from the smallest broach, upto the appropriate size. Good stability was confirmed. We then trialed the construct with a standard neck length and appropriate sized femoral head on 127? angle neck. We were happy with the construct. Good stability to flexion, rotation. At this point trials removed. Now placed the appropriate polyethylene acetabular liner into a clean dry previously placed shell. This was hammered into position. Suction device was used to confirm its stability. 2 full batches of antibiotic tobramycin bone cement were mixed. 2 sponges were placed in the acetabulum we prepared the canal with brushing. Cement restrictor was placed down to the appropriate depth. I was thoroughly irrigated clean and dry. When the cement was as the appropriate texture, we pressurized cement down in the femoral canal. The appropriate size stem then hammered into the proximal femur and seated down to a similar position as the trial had. Excess bone cement removed. Stem was held still while cement fully hardened. Pain relieving solution was injected while this was occurring. The cement was fully hardened, sponges were removed from the acetabulum. We now again trialed w MDM and appropriate neck length decided upon. It was then opened. Now impacted the appropriate sized femoral head, neck MDM construct onto the clean dried trunion. Was noted to be stable. Hip was inspected, and joint was reduced for a final time. Good hip stability and leg lengths noted. This was then irrigated with saline and cleaned. Next the remainder of the pain relieving solution was injected carefully throughout the soft tissues of the hip joint. Irrisept solution was utilized throughout the procedure to help prevent infection. Closure was carried out with a combination of #1 Vicryl, running #2 strata fix in the fascia deb, followed by mid layer #1 Vicryl with #1 strata fix running. Next running 0 strata fix, followed by skin hermila, Xeroform, Mepilex dressing. We placed AMEE hose and SCD on the operative leg. Patient awoken from the anesthetic and transferred back to room bed in recovery room in satisfactory condition. Patient will be admitted for pain management, IV antibiotics, medication for DVT prevention. Hospitalist to continue medical management. Hopeful discharge to home in 1-3 days. She can be weightbearing as tolerated on the right leg. She will follow hip dislocation precautions on the right. Due to previous left femoral fracture as well as new left knee pain, we will keep her nonweightbearing on the left leg for now. CT scan has been ordered of the left knee to rule out new fracture. Patient understands she will continue to follow with her surgeons in [place] regarding her left lower extremity. I will follow her for her right hip surgery done today. This note was generated with [employer] dictation software. It may contain incorrect words, spelling, and punctuation that were not noted in checking the note before signing.
--- NOTE | 2024-06-26 14:55 | PCM.POST.ANE ---
Anesthesia: Postop Eval I Current Vital Signs Temperature: 98.6 F Pulse Rate: 88 Blood Pressure: 106/92 Respiratory Rate: 17 Pulse Ox: 95 Assessment Airway patent: Yes Spontaneous unlabored respirations: Yes nausea: No Vomiting: No Anesthesia Complication: No Fluid Hydration Crystalloid volume administer (ml): 1,200 Total IV fluid infused: 1,200 Progress Note Anesthesia document: Postop Eval 1 completed: Yes
--- NOTE | 2024-06-26 14:56 | POSTOPAN2_ITS ---
Anesthesia Postop Eval I Sum Postop Eval Completion status Anesthesia document: Postop Eval 1 completed: Yes Anesthesia Postop Eval I Summary Anesthesia Postop Eval I Summary: Anesthesia Postop Eval I: Assessment Summary Airway patent Yes 06/26/24 14:55 [email or web address] Spontaneous unlabored Yes 06/26/24 14:55 [email or web address] respirations Mental status nausea No 06/26/24 14:55 [email or web address] Vomiting No 06/26/24 14:55 [email or web address] Anesthesia Postop Eval I: Fluid Summary Crystalloid volume administer 1,200 06/26/24 14:55 [email or web address] (ml) Colloids volume administered ( ml) Blood Product volume administered (ml) Total IV fluid infused 1,200 06/26/24 14:55 [email or web address] Anesthesia Postop Eval I: Summary Notes Anesthesia Complication No 06/26/24 14:55 [email or web address] Anesthesia Complication Comment: Post-operative progress note Anesthesia: Postop Eval II Evaluation Mental status: Awake Pain Level: 0 nausea: No Vomiting: No
--- NOTE | 2024-06-26 14:56 | PCM.POSTANE2 ---
Anesthesia Postop Eval I Sum Postop Eval Completion status Anesthesia document: Postop Eval 1 completed: Yes Anesthesia Postop Eval I Summary Anesthesia Postop Eval I Summary: Anesthesia Postop Eval I: Assessment Summary Airway patent Yes 06/26/24 14:55 [email or web address] Spontaneous unlabored Yes 06/26/24 14:55 [email or web address] respirations Mental status nausea No 06/26/24 14:55 BOX [email or web address] Vomiting No 06/26/24 14:55 BOX [email or web address] Anesthesia Postop Eval I: Fluid Summary Crystalloid volume administer 1,200 06/26/24 14:55 BOX [email or web address] (ml) Colloids volume administered ( ml) Blood Product volume administered (ml) Total IV fluid infused 1,200 06/26/24 14:55 BOX [email or web address] Anesthesia Postop Eval I: Summary Notes Anesthesia Complication No 06/26/24 14:55 [email or web address] [email or web address] Anesthesia Complication Comment: Post-operative progress note Anesthesia: Postop Eval II Evaluation Mental status: Awake Pain Level: 0 nausea: No Vomiting: No
--- NOTE | 2024-06-26 15:05 | RAD_ITS ---
INDICATION: Post Op -- AP both hips on single alia/lateral of op hip PACU EXAMINATION/TECHNIQUE: X-RAY - XR Hip Unilateral with Pelvis when performed; 2-3 Views COMPARISON: Prior study dated: 05/26/2024 FINDINGS: HIPS: Status post right hip arthroplasty in satisfactory alignment as seen on this examination. [Pinning with intramedullary rickey unchanged. SOFT TISSUES: No soft tissue swelling or gas. RAD/Hip Min 2 Views (Portable) IMPRESSION: Status post right hip arthroplasty. Electronically Signed: Mark Chow MD at 15:49 EDT ,
[2024-06-26 15:20] LABS: Bedside Glucose 116 mg/dL (74-106)
--- NOTE | 2024-06-26 15:24 | PN_ITS ---
Subjective Subjective Patient seen and examined. She complained of pain in her right hip. She denied any shortness of breath, fever or chills, palpitations, dizziness, nausea vomiting or any other symptoms. Review of systems otherwise negative. She is due for surgery today. Objective Data Objective Data Vital Signs: Vital Signs Temp Pulse Resp BP Pulse Ox O2 Del Method O2 Flow Rate 98.6 F 91 16 154/69 H 91 Nasal Cannula 4 06/26/24 14:55 06/26/24 15:00 06/26/24 15:00 06/26/24 15:00 06/26/24 15:00 06/26/24 15:00 06/26/24 15:00 Oxygen Flow Rate (L/min) 4 Oxygen Delivery Method Nasal Cannula Weight: 150 lb Body Mass Index (BMI) 29.2 Lab / Micro Data 06/26/24 03:30 06/26/24 03:30 Labs: Laboratory Results - last 24 hr 06/25/24 20:28: WBC 8.6, RBC 4.20, Hgb 13.6, Hct 40.9, MCV 97.4, MCH 32.4 H, MCHC 33.3, RDW Std Deviation 47.1 H, RDW Coeff of Yudelka 13.3, Plt Count 285, MPV 10.5, Immature Gran % (Auto) 0.900, Neut % (Auto) 56.1, Lymph % (Auto) 35.0, [place] % (Auto) 5.8, Eos % (Auto) 1.9, Baso % (Auto) 0.3, Absolute Neuts (auto) 4.8, Absolute Lymphs (auto) 3.00, Nucleated RBC % 0, Sodium 137, Potassium 4.8, Chloride 112 H, Carbon Dioxide 20.0 L, Anion Gap 5, BUN 22 H, Creatinine 1.14 H, Estim Creat Clear Calc 46.32, Est GFR (MDRD) Af Amer 63, Est GFR (MDRD) Non-Af 52 L, BUN/Creatinine Ratio 19.3, Glucose 184 H, Calcium 9.2, Magnesium 2.0, Troponin I High Sens 16, B-Natriuretic Peptide 98.1, Blood Type O POSITIVE, Antibody Screen NEGATIVE 06/25/24 23:45: POC Glucose 131 H 06/26/24 03:30: WBC 14.5 H, RBC 4.05 L, Hgb 12.8, Hct 40.1, MCV 99.0, MCH 31.6, MCHC 31.9 L, RDW Std Deviation 49.0 H, RDW Coeff of Yudelka 13.3, Plt Count 260, MPV 10.7, Immature Gran % (Auto) 0.500, Neut % (Auto) 82.1 H, Lymph % (Auto) 10.6 L, [place] % (Auto) 6.2, Eos % (Auto) 0.5, Baso % (Auto) 0.1, Absolute Neuts (auto) 11.9 H, Absolute Lymphs (auto) 1.53, Nucleated RBC % 0, Sodium 137, Potassium 4.8, Chloride 110 H, Carbon Dioxide 23.0, Anion Gap 4 L, BUN 25 H, Creatinine 1.07 H, Estim Creat Clear Calc 48.72, Est GFR (MDRD) Af Amer 67, Est GFR (MDRD) Non-Af 56 L, BUN/Creatinine Ratio 23.4 H, Glucose 130 H, Calcium 9.0, Total Bilirubin 0.30, AST 14 L, ALT 16, Alkaline Phosphatase 82, Total Protein 6.2 L, Albumin 2.9 L, Globulin 3.3, Albumin/Globulin Ratio 0.9, TSH 7.520 H, Free T4 0.76 06/26/24 05:53: POC Glucose 149 H 06/26/24 10:08: POC Glucose 102 06/26/24 11:28: POC Glucose 85 06/26/24 15:02: POC Glucose 116 H Radiography Diagnostic Testing: Radiology Impression Chest X-Ray 06/25/24 20:14 IMPRESSION: Cardiomegaly and/or pericardial effusion. No focal airspace disease, pleural effusion, or pneumothorax Electronically Signed: Jagdeep Gibson DO at 21:03 EDT , Hip/Pelvis X-Ray 06/25/24 20:15 IMPRESSION: Subcapital to mid cervical right femoral neck fracture with varus angulation. No dislocation. Electronically Signed: Jagdeep Gibson DO at 21:00 EDT , Knee X-Ray 06/25/24 20:15 IMPRESSION: 1. Band of sclerosis in the subcortical medial tibial plateau perhaps indicating a minimal impaction fracture. 2. Intramedullary and plate-screw fixation of the distal femur. Electronically Signed: Jagdeep VSheldon Gibson DO at 21:01 EDT , Echocardiogram 06/26/24 05:55 Interpretation Summary Normal LV size and function Normal RV size and function Moderate LVH EF 75% Normal LA and RA size stage 1 diastilc dysfunction Mild TR No pericardial effusion. Epicardial fat pad noted. Ordering Physician: Flor Parks Performed By: Leticia Abraham RDCS Physical Exam Const alert, oriented x3 and no apparent distress General Appearance: cooperative HEENT normocephalic, head/scalp atraumatic and moist oral mucous membranes Eyes PERRL and EOMs intact bilaterally Neck no lymphadenopathy and supple Lymph Lymphatic: no lymphadenopathy noted and no lymphedema noted Resp Resp Narrative: mildly diminished breath sounds bibasally, no wheezes or crackles. On room air. Cardio regular rate, regular rhythm, S1 normal heart sound, S2 normal heart sound and no murmurs GI normal to inspection, nondistended, normoactive bowel sounds, soft to palpation, non-tender and non-distended Extremity Extremity Narrative: RLE slightly shortened and externally rotated. Skin General Skin Exam: no breakdown Neuro CN's II-XII intact bilaterally Motor Exam: general weakness Psych thought process normal and cooperative Appearance: appropriate Assessment & Plan Assessment/Plan (1) Closed fracture of neck of right femur: (2) Contusion of left knee: PLAN: Plan #Right subcapital to mid cervical femoral neck fracture with varus angulation due to mechanical fall * Imaging showed a fracture as above. Orthopedic surgery on board. * PT OT on board. On p.o. Tylenol, oxycodone and IV morphine as needed for pain * Chest x-ray showed possible pericardial effusion. Patient did have 2D echo today which showed no evidence of pericardial effusion and showed intact EF of 65% with preserved left ventricular ejection fraction. * Patient did have a right total hip replacement done today. * Fall precautions. * Incentive spirometry. #Hypertension: * On lisinopril, hydrochlorothiazide and hydralazine PO. * IV hydralazine as needed #Type 2 diabetes mellitus: On Lantus 24 units in the morning. Insulin sliding scale. ACT checks ACHS. #Hyperlipidemia: On statin #Hypothyroidism: * She does not seem to have Synthroid on her list of medications but going back to her history it appears she was previously on Synthroid. * TSH is elevated at 7.520 but free T4 is 0.76. * Patient also tells me she is not sure she takes Synthroid. * She does have a history of thyroid surgery though she is not sure exactly when she had a thyroid surgery for. * Will start on Synthroid 50mcg mcg daily #GERD: On PPI DVT prophylaxis: Lovenox Disposition: Will benefit from placement. Case management on board to help facilitate placement Charges/Coding Visit Charges Inpatient E&M: 25058 Subs Hosp L2
[2024-06-26 17:13] LABS: Bedside Glucose 115 mg/dL (74-106)
[2024-06-26] MEDS: Cefazolin 1 GM/50 ML BAG IV (20:35)
[2024-06-26] MEDS: Atorvastatin Calcium 80 MG Tablet PO (22:45)
[2024-06-26] MEDS: MELATONIN 3 MG TABLET PO (22:45)
[2024-06-26] MEDS: Famotidine 20 MG Tablet PO (22:45)
[2024-06-26] MEDS: Senna/Docusate Sodium 1 Tablet 2 TABLET PO (22:45)
[2024-06-26] MEDS: Acetaminophen 500 MG Tablet 1000 MG PO (22:49)
[2024-06-26 23:10] LABS: Bedside Glucose 179 mg/dL (74-106)
[2024-06-27] VITALS (9 sets, daily range): BP systolic 130–148; BP diastolic 65–75; PULSE 64–98; RESP 18–20; TEMP 36.6–37; O2SAT 92–99; BMI 29.4
[2024-06-27] MEDS: Cefazolin 1 GM/50 ML BAG IV (04:33)
[2024-06-27] MEDS: Gabapentin 800 MG Tablet PO ×3 (06:16→23:06)
[2024-06-27] MEDS: Levothyroxine 50 MCG Tablet PO (06:16)
[2024-06-27] MEDS: Enoxaparin 40 MG/0.4 ML Syringe SC (06:16)
[2024-06-27] MEDS: oxyCODONE 5 MG Tablet PO ×4 (06:17→23:17)
[2024-06-27 06:33] LABS: Hematocrit 32.9 % (37-47); Hemoglobin 10.7 g/dL (12.0-15.0); Mean Corp Hgb Conc 32.5 g/dL (32-36); Mean Corpuscular Hgb 32.7 pg (27.0-32.0); Mean Corpuscular Volume 100.6 fL (81-99); Platelet Count 204 K/mm3 (150-450); RBC Distribution Width CV 13.3 % (11.6-14.6); RBC Distribution Width SD 49.7 fl (35.1-43.9); Red Blood Count 3.27 M/mm3 (4.2-5.4); White Blood Count 11.3 K/mm3 (4.4-11.0)
[2024-06-27 07:01] LABS: Anion Gap 4 (5-15); BUN 34 mg/dL (7-18); BUN/Creat Ratio 22.5 RATIO (10-20); Calcium,Total 7.8 mg/dL (8.5-10.1); Chloride 106 mmol/L (98-107); Creatinine, Serum 1.51 mg/dL (0.55-1.02); EST Glomerular Filtration Rate 37 mL/min (>60); Est Glom Filt Rate - Afr Amer 45 mL/min (>60); Estimated Creatinine Clearance 34.52 ml/min; Glucose 183 mg/dL (74-106); Potassium 4.7 mmol/L (3.5-5.1); Sodium Level 134 mmol/L (136-145)
[2024-06-27] MEDS: Budesonide Respules 0.5 MG/2 ML AMPUL.NEB. INHALATION (07:19)
[2024-06-27] MEDS: Famotidine 20 MG Tablet PO (10:33)
[2024-06-27] MEDS: Lisinopril 40 MG Tablet PO (10:33)
[2024-06-27] MEDS: Senna/Docusate Sodium 1 Tablet 2 TABLET PO ×2 (10:33→23:06)
[2024-06-27] MEDS: Insulin Glargine-YFGN 100 UNIT/ML Pen 24 UNIT SC (10:51)
[2024-06-27 11:33] LABS: Bedside Glucose 185 mg/dL (74-106)
[2024-06-27] MEDS: Insulin Lispro 100 UNIT/ML INSULN.PEN SC (12:44)
--- NOTE | 2024-06-27 13:11 | PN_ITS ---
Subjective Subjective Patient seen and examined. She is postop day 1 for right total hip replacement. She says she is having some pain though she looked comfortable and was eating breakfast. Review of systems otherwise negative. She has remained hemodynamically stable. Objective Data Objective Data Vital Signs: Vital Signs Temp Pulse Resp BP Pulse Ox O2 Del Method O2 Flow Rate 98 F 98 18 137/75 H 92 Room Air 2 06/27/24 10:00 06/27/24 10:00 06/27/24 10:00 06/27/24 10:00 06/27/24 10:00 06/27/24 10:00 06/27/24 04:20 Oxygen Flow Rate (L/min) 2 Oxygen Delivery Method Room Air Weight: 149 lb 15.687 oz Body Mass Index (BMI) 29.4 Intake & Output: Intake and Output for Last 24 Hours 06/25/24 06/26/24 06/27/24 23:59 23:59 23:59 Intake Total 490 / 490 50 / 50 Output Total 400 / 400 300 / 300 Balance 90 / 90 -250 / -250 Lab / Micro Data 06/27/24 05:30 06/27/24 05:30 Labs: Laboratory Results - last 24 hr 06/26/24 15:02: POC Glucose 116 H 06/26/24 16:54: POC Glucose 115 H 06/26/24 22:49: POC Glucose 179 H 06/27/24 05:30: WBC 11.3 H, RBC 3.27 L, Hgb 10.7 L, Hct 32.9 L, MCV 100.6 H, MCH 32.7 H, MCHC 32.5, RDW Std Deviation 49.7 H, RDW Coeff of Yudelka 13.3, Plt Count 204, MPV 11.0, Sodium 134 L, Potassium 4.7, Chloride 106, Carbon Dioxide 23.0, A nion Gap 4 L, BUN 34 H, Creatinine 1.51 H, Estim Creat Clear Calc 34.52, Est GFR (MDRD) Af Amer 45 L, Est GFR (MDRD) Non-Af 37 L, BUN/Creatinine Ratio 22.5 H, G lucose 183 H, Calcium 7.8 L 06/27/24 06:15: POC Glucose 185 H Radiography Diagnostic Testing: Radiology Impression Lower Extremity CT 06/26/24 12:39 IMPRESSION: 1. Fracture through the patella. This was not present on the previous exam. 2. Intramedullary hardware as well as sideplate and screws position. Electronically Signed: Juan Daniel Feliciano MD at 17:23 EDT , Hip X-Ray 06/26/24 15:05 IMPRESSION: Status post right hip arthroplasty. Electronically Signed: Mark Chow MD at 15:49 EDT , Physical Exam Const alert, oriented x3 and no apparent distress General Appearance: cooperative HEENT normocephalic, head/scalp atraumatic and moist oral mucous membranes Eyes PERRL and EOMs intact bilaterally Neck no lymphadenopathy and supple Lymph Lymphatic: no lymphadenopathy noted and no lymphedema noted Resp Resp Narrative: mildly diminished breath sounds bibasally, no wheezes or crackles. On room air. Cardio regular rate, regular rhythm, S1 normal heart sound, S2 normal heart sound and no murmurs GI normal to inspection, nondistended, normoactive bowel sounds, soft to palpation, non-tender and non-distended Extremity Extremity Narrative: intact dressing over left hip Skin General Skin Exam: no breakdown Neuro CN's II-XII intact bilaterally Motor Exam: general weakness Psych thought process normal and cooperative Appearance: appropriate Assessment & Plan Assessment/Plan (1) Closed fracture of neck of right femur: (2) Contusion of left knee: PLAN: Plan #Right subcapital to mid cervical femoral neck fracture with varus angulation due to mechanical fall * Imaging showed a fracture as above. Orthopedic surgery on board. * PT OT on board. On p.o. Tylenol, oxycodone and IV morphine as needed for pain * Chest x-ray showed possible pericardial effusion. Patient did have 2D echo which showed no evidence of pericardial effusion and showed intact EF of 65% with preserved left ventricular ejection fraction. * s/p right total hip replacement. Today is POD 1. * PT/OT on board. Fall precautions * Fall precautions. * Incentive spirometry. #Hypertension: * On lisinopril, hydrochlorothiazide and hydralazine PO. * IV hydralazine as needed #Type 2 diabetes mellitus: On Lantus 24 units in the morning. Insulin sliding scale. ACT checks ACHS. #Hyperlipidemia: On statin #Hypothyroidism: * She does not seem to have Synthroid on her list of medications but going back to her history it appears she was previously on Synthroid. * TSH is elevated at 7.520 but free T4 is 0.76. * Patient also tells me she is not sure she takes Synthroid. * She does have a history of thyroid surgery though she is not sure exactly when she had a thyroid surgery for. * Started on synthroid 50mcg daily * #CKD IIIB: Cr is 1.51 today. Baseline Cr is ~ 1.2-1.3. Will monitor. #GERD: On PPI DVT prophylaxis: Lovenox Disposition: Will benefit from placement. Case management on board to help facilitate placement Charges/Coding Visit Charges Inpatient E&M: 85872 Subs Hosp L2
--- NOTE | 2024-06-27 15:51 | PN.ORTHO_ITS ---
Subjective Subjective Patient is postoperative day #1 from right hip replacement for displaced femoral neck fracture. Patient was noted to have knee pain on the left side prior to surgery. X-rays did not show any obvious fracture. CT scan done postoperatively showed a patella fracture not significantly displaced or distracted. She is having pain at the left knee anteriorly as well as right hip. Pain is tolerable with medications. She does have a knee immobilizer on her left knee. Objective Data Objective Data Vital Signs: Vital Signs Temp Pulse Resp BP Pulse Ox O2 Del Method O2 Flow Rate 98 F 98 18 137/75 H 92 Room Air 2 06/27/24 10:00 06/27/24 11:00 06/27/24 11:00 06/27/24 10:00 06/27/24 11:00 06/27/24 11:00 06/27/24 04:20 Oxygen Flow Rate (L/min) 2 Oxygen Delivery Method Room Air Weight: 68.03 kg Body Mass Index (BMI) 29.4 Intake & Output: Intake and Output for Last 24 Hours 06/25/24 06/26/24 06/27/24 23:59 23:59 23:59 Intake Total 490 / 490 550 / 550 Output Total 400 / 400 600 / 600 Balance 90 / 90 -50 / -50 Lab / Micro Data Attestation: I reviewed the patient's lab results. 06/27/24 05:30 06/27/24 05:30 Labs: Laboratory Results - last 24 hr 06/26/24 16:54: POC Glucose 115 H 06/26/24 22:49: POC Glucose 179 H 06/27/24 05:30: WBC 11.3 H, RBC 3.27 L, Hgb 10.7 L, Hct 32.9 L, MCV 100.6 H, MCH 32.7 H, MCHC 32.5, RDW Std Deviation 49.7 H, RDW Coeff of Yudelka 13.3, Plt Count 204, MPV 11.0, Sodium 134 L, Potassium 4.7, Chloride 106, Carbon Dioxide 23.0, A nion Gap 4 L, BUN 34 H, Creatinine 1.51 H, Estim Creat Clear Calc 34.52, Est GFR (MDRD) Af Amer 45 L, Est GFR (MDRD) Non-Af 37 L, BUN/Creatinine Ratio 22.5 H, G lucose 183 H, Calcium 7.8 L 06/27/24 06:15: POC Glucose 185 H Radiography Diagnostic Testing: Radiology Impression Lower Extremity CT 06/26/24 12:39 IMPRESSION: 1. Fracture through the patella. This was not present on the previous exam. 2. Intramedullary hardware as well as sideplate and screws position. Electronically Signed: Juan Daniel Feliciano MD at 17:23 EDT Reading Location ID and State: [facility] / [place] Tel , Service support , Physical Exam Narrative Patient's left knee immobilizer had slid down her leg some. It was unwrapped. Knee was examined. She does have pain at the left patella. Skin is intact. No palpable defect at the patella. She has good active plantarflexion dorsiflexion toes and ankles bilaterally. No calf pain or swelling bilaterally type. AMEE hose on. SCD on the right side. She has mild right hip pain with flexion to 80 degrees. Mild right hip pain with rotation 10 degrees. Legs are neurovascular intact. CT scan and x-rays of the right hip and pelvis have been reviewed. Reports reviewed Assessment & Plan Assessment/Plan (1) Closed fracture of neck of right femur: QUALIFIERS: Encounter type: initial encounter Qualified Code(s): S72.001A - Fracture of unspecified part of neck of right femur, initial encounter for closed fracture (2) Left patella fracture: QUALIFIERS: Fracture type: closed Fracture morphology: transverse Encounter type: initial encounter Fracture alignment: nondisplaced Qualified Code(s): S82.035A - Nondisplaced transverse fracture of left patella, initial encounter for closed fracture PLAN: Her diagnosis and treatment options regarding her right hip fracture surgery and left patella fracture discussed with her at length. She can be weightbearing as tolerated on the right hip. She understands right hip dislocation precautions. She can be weightbearing as tolerated on the left lower extremity with her knee immobilizer on. Recommended ice to the right hip and ice to the left knee. I explained most likely her patella fracture can be treated nonoperatively. Patient prefers to be seen by her doctors in [place] for this. They have been dealing with her left lower extremity femoral fracture since November. She feels more comfortable having them evaluate and treat her left patella. If for some reason they will not take over care of the left patella I will reevaluate her in 2 weeks when I see her for the right hip. She can remove her adhesive bandage in 5 days. She can shower over the incision then. She will continue on Lovenox for DVT prevention. She should avoid bending her left knee due to patella fracture. She will be discharged to home or ECF when arrangements are made. Continue on medical service with the evaluation and treatment of her multiple medical comorbidities including diabetes/tobacco use/alcohol use/history of acute kidney injury
[2024-06-27 16:01] LABS: Bedside Glucose 336 mg/dL (74-106)
[2024-06-27 17:56] LABS: Bedside Glucose 248 mg/dL (74-106)
[2024-06-27] MEDS: Atorvastatin Calcium 80 MG Tablet PO (23:06)
[2024-06-27 23:46] LABS: Bedside Glucose 192 mg/dL (74-106)
[2024-06-28] VITALS (12 sets, daily range): BP systolic 68–140; BP diastolic 40–80; PULSE 64–83; RESP 15–20; TEMP 36.3–36.7; O2SAT 91–99; BMI 30.1
[2024-06-28] MEDS: oxyCODONE 5 MG Tablet PO (03:21)
[2024-06-28] MEDS: Ondansetron 4 MG/2 ML Vial IV (06:01)
[2024-06-28] MEDS: 0.9% Saline Lock 10 ML Syringe IV ×3 (06:03→20:54)
[2024-06-28] MEDS: Insulin Lispro 100 UNIT/ML INSULN.PEN SC ×4 (06:08→23:52)
[2024-06-28] MEDS: Gabapentin 800 MG Tablet PO ×2 (06:11→14:24)
[2024-06-28] MEDS: Enoxaparin 40 MG/0.4 ML Syringe SC (06:11)
[2024-06-28] MEDS: Levothyroxine 50 MCG Tablet PO (06:14)
[2024-06-28 07:38] LABS: Hematocrit 33.2 % (37-47); Hemoglobin 10.9 g/dL (12.0-15.0); Mean Corp Hgb Conc 32.8 g/dL (32-36); Mean Corpuscular Hgb 32.9 pg (27.0-32.0); Mean Corpuscular Volume 100.3 fL (81-99); Mean Platelet Vol. 11.1 fl (6.2-12.0); Platelet Count 213 K/mm3 (150-450); RBC Distribution Width CV 13.2 % (11.6-14.6); RBC Distribution Width SD 49.1 fl (35.1-43.9); Red Blood Count 3.31 M/mm3 (4.2-5.4); White Blood Count 12.4 K/mm3 (4.4-11.0)
[2024-06-28] MEDS: Budesonide Respules 0.5 MG/2 ML AMPUL.NEB. INHALATION ×2 (07:50→20:05)
[2024-06-28 08:09] LABS: Bedside Glucose 221 mg/dL (74-106)
[2024-06-28] MEDS: proCHLORPERazine 10 MG/2 ML Vial 5 MG IV (08:12)
[2024-06-28] MEDS: Senna/Docusate Sodium 1 Tablet 2 TABLET PO ×2 (10:19→23:46)
[2024-06-28] MEDS: Loratadine 10 MG Tablet PO (10:20)
[2024-06-28] MEDS: Insulin Glargine-YFGN 100 UNIT/ML Pen 24 UNIT SC (10:20)
[2024-06-28] MEDS: Famotidine 20 MG Tablet PO (10:20)
--- NOTE | 2024-06-28 10:48 | PN.HOSP_ITS ---
Reason for Visit Reason for Visit: Diagnoses Fracture of unspecified part of neck of right femur, initial encounter for closed fracture (06/25/24) Contusion of left knee, initial encounter (06/25/24) Nondisplaced transverse fracture of left patella, initial encounter for closed fracture (06/25/24) Subjective Subjective No issues overnight. Patient is not complaining of any pain at this time. Did have a transient low blood pressure earlier today which resolved with 1 L of IV fluids. Patient is not on any antihypertensives and etiology is unclear. Stat BMP was ordered and did show that her renal function was slightly worse. Will continue some IV fluids. And is agreeable to shelter facility if needed versus home health care depending on how she does with therapy. Objective Data Objective Data Vital Signs: Vital Signs Temp Pulse Resp BP Pulse Ox O2 Del Method O2 Flow Rate 97.6 F L 69 17 83/50 L 99 Nasal Cannula 2 06/28/24 10:27 06/28/24 10:37 06/28/24 10:27 06/28/24 10:37 06/28/24 10:27 06/28/24 10:27 06/28/24 10:27 Oxygen Flow Rate (L/min) 2 Oxygen Delivery Method Nasal Cannula Weight: 69.6 kg Body Mass Index (BMI) 30.1 Intake & Output: Intake and Output for Last 24 Hours 06/26/24 06/27/24 06/28/24 23:59 23:59 23:59 Intake Total 490 / 490 750 / 972 322 / 322 Output Total 400 / 400 700 / 700 Balance 90 / 90 50 / 272 322 / 322 Lab / Micro Data 06/28/24 07:06 06/28/24 07:06 Labs: Laboratory Results - last 24 hr 06/27/24 06:15: POC Glucose 185 H 06/27/24 12:36: POC Glucose 336 H 06/27/24 17:36: POC Glucose 248 H 06/27/24 23:10: POC Glucose 192 H 06/28/24 07:06: WBC 12.4 H, RBC 3.31 L, Hgb 10.9 L, Hct 33.2 L, MCV 100.3 H, MCH 32.9 H, MCHC 32.8, RDW Std Deviation 49.1 H, RDW Coeff of Yudelka 13.2, Plt Count 213, MPV 11.1 06/28/24 07:51: POC Glucose 221 H Physical Exam Const alert, no apparent distress and well nourished; Negative for average body habitus or healthy appearing Constitutional Narrative: Obese, middle-aged, white female, sitting up in a chair at the bedside, watching television, appears comfortable and nontoxic, appears older than stated age HEENT head/scalp atraumatic and moist oral mucous membranes Head and Scalp: normocephalic Eyes PERRL, EOMs intact bilaterally and conjunctivae normal Eyes Narrative: No scleral icterus Neck no lymphadenopathy and supple Neck Narrative: Trachea midline, no thyroid large meant, neck is short and thick Resp normal respiratory effort, no retractions, no use of accessory muscles and No clear to auscultation bilaterally Resp Narrative: Few scattered wheezes especially noted in left base Auscultation: wheezes; Negative for rales or rhonchi Cardio regular rate, regular rhythm, S1 normal heart sound, S2 normal heart sound, no murmurs, no rub, no gallops and no clicks GI normal to inspection, nondistended, normoactive bowel sounds, soft to palpation and non-tender Extremity no clubbing, cyanosis or edema Extremity Narrative: Pedal and radial pulses are 2+ Skin no jaundice, no petechiae and no mottling Neuro oriented x3 and no focal motor deficits Speech: speech normal Psych Psych Narrative: Interacts appropriately Assessment & Plan Assessment/Plan (1) Left patella fracture: QUALIFIERS: Encounter type: initial encounter Fracture type: c losed Fracture morphology: transverse Fracture alignment: nondisplaced Q ualified Code(s): S82.035A - Nondisplaced transverse fracture of left patella, initial encounter for closed fracture (2) Closed fracture of neck of right femur: QUALIFIERS: Encounter type: initial encounter Qualified Code(s): S72.001A - Fracture of unspecified part of neck of right femur, initial encounter for closed fracture (3) DELGADO (acute kidney injury): PLAN: Plan Right subcapital femoral neck fracture status post mechanical fall -Postop day 2 total hip arthroplasty on the right -Weightbearing as tolerated right lower extremity -Continue hip dislocation precautions -Postoperative dressing can be removed on 07/01/2024 -Continue subcu Lovenox for DVT prophylaxis currently and will need discussed with orthopedic surgery if patient discharges home otherwise will continue subcu Lovenox for 30 days after surgery -Continue as needed pain medication -Continue scheduled acetaminophen -Bowel regimen as ordered -2-week postoperative follow-up with Dr. Siu after discharge Left patellar fracture -Continue knee immobilizer and patient may be weightbearing as tolerated with knee immobilizer in place -Patient plans to follow-up as an outpatient with her can orthopedic surgeons for this -Continue ice and pain medication as noted above Hypotension -BMP shows elevated serum creatinine -Will volume expand her and see if this does not help her blood pressure -Patient appears well without any signs of altered mental status -Continue to monitor clinically and repeat lab in a.m. -Hold home antihypertensives DELGADO on CKD stage IIIa -Baseline serum creatinine appears to run between 1.3 and 1.4 but was down to 1.07 on presentation -2.20 today -1 L IV fluids given and will continue 2 more liters at 125 cc/h -Repeat lab in a.m. -Avoid nephrotoxins as able -Hold lisinopril -Further workup tomorrow if no improvement with volume expansion Essential hypertension -Hold lisinopril with low blood pressures and DELGADO Anemia -Stable postoperatively however I do anticipate she will drop further with volume expansion today -Repeat lab in a.m. -No signs of acute bleeding Mild leukocytosis -Suspect related to hemoconcentration and acute stress -Repeat lab in a.m. Acute hyponatremia -Mild at 131 -Patient is currently getting IV fluids -Repeat lab in a.m. DM-2 -Continue home insulin -Blood sugars are slightly up likely related to acute stress -Will hold off on increasing further with DELGADO Diabetic neuropathy -Patient is on gabapentin 800 3 times daily at home -Will reduce dosing due to DELGADO to 200 3 times daily and increase as able COPD with ongoing tobacco abuse -Continue budesonide -Restart home inhalers at discharge -Add scheduled DuoNebs -Strongly encourage patient to be compliant with I-S and Acapella -Patient currently on 2 L of oxygen but does not wear at baseline and weaning in progress Hyperlipidemia -Will restart atorvastatin if she is taking this however it is questionable whether or not she has been based on the med reconciliation Abnormal TSH -7.52 on presentation the patient is not on Synthroid -Free T4 is normal at 0.76 -Would not recommend levothyroxine at this point and recommend repeat outpatient TSH in 6 weeks -Discontinue levothyroxine DVT prophylaxis -Continue subcu Lovenox CODE STATUS Full code Charges/Coding Visit Charges Inpatient E&M: 42514 Subs Hosp L3
[2024-06-28 11:16] LABS: Anion Gap 6 (5-15); BUN 44 mg/dL (7-18); Calcium,Total 8.6 mg/dL (8.5-10.1); Chloride 103 mmol/L (98-107); EST Glomerular Filtration Rate 24 mL/min (>60); Est Glom Filt Rate - Afr Amer 29 mL/min (>60); Estimated Creatinine Clearance 23.97 ml/min; Glucose 267 mg/dL (74-106); Potassium 4.9 mmol/L (3.5-5.1); Sodium Level 131 mmol/L (136-145)
[2024-06-28] MEDS: Lactated Ringers 1,000 ML 999 ML IV (11:23)
[2024-06-28 11:32] LABS: Bedside Glucose 230 mg/dL (74-106)
[2024-06-28 11:38] LABS: Bedside Glucose 312 mg/dL (74-106)
--- NOTE | 2024-06-28 16:06 | CHAPLAIN ---
Type of Pastoral Visit _x__ Initial Visit ___ Follow-up Visit ___ On-call Visit ___ General Patient Visit ___ Spiritual Assessment ___ Family Conference ___ Bereavement ___ Rapid Response ___ Code Blue ___ Other (describe below) Pastoral Care Referral From _x__ Patient ___ Family ___ Nurse ___ Physician ___ Felt Coverer ___ Caustic Liquor Maker ___ Other (describe below) Sacrament/Intervention _x__ Active listening ___ Anointing ___ Baptist ___ Bereavement ___ Communion ___ Марина exploration ___ ___ Life review _x__ Prayer ___ Reconciliation ___ Sacrament of Sick _x__ Supportive presence ___ Wedding ___ Other (describe below) Pastoral Comments notified CM about needs expressed by this patient for home care; pt requested prayer and time to talk
[2024-06-28 16:35] LABS: Bedside Glucose 215 mg/dL (74-106)
--- NOTE | 2024-06-28 16:53 | CASEMGMT ---
Social Work- SW met with pt to discuss preferences at d/c. Pt states that her preference is home with [facility] if therapy is in agreement. Pt reports that she has two small steps into her small apartment. Pt reports living space is all on one floor. Pt states that she has a traditional tub. Pt has a small dog that her mom is caring for and will continue to care for as long as needed. Pt has a rollator at home. Pt lives alone, but does have family that can stop by if needed. Pt states that she broke her femur in November 2023 and [facility] sent her to [facility]. SW provided reassurance that pt preference and coordination on care needs is primary focus. SW guided conversation and provided education on SNF vs home. Pt in agreement that SW will provide a SNF list if needed following therapy tomorrow vs HHC list. SW remains available to follow. TOBY Mejia
[2024-06-28 17:16] LABS: Bedside Glucose 209 mg/dL (74-106)
[2024-06-28] MEDS: Lactated Ringers 1,000 ML 125 ML IV (20:54)
[2024-06-28] MEDS: Atorvastatin Calcium 80 MG Tablet PO (23:45)
[2024-06-28] MEDS: Gabapentin 100 MG Capsule 200 MG PO (23:45)
[2024-06-28] MEDS: Acetaminophen 500 MG Tablet 1000 MG PO (23:48)
[2024-06-29] VITALS (9 sets, daily range): BP systolic 89–106; BP diastolic 58–71; PULSE 71–80; RESP 14–18; TEMP 36.4–37.1; O2SAT 92–98; BMI 30.1
[2024-06-29 00:22] LABS: Bedside Glucose 162 mg/dL (74-106)
[2024-06-29] MEDS: Gabapentin 100 MG Capsule 200 MG PO ×3 (05:39→22:39)
[2024-06-29] MEDS: Enoxaparin 40 MG/0.4 ML Syringe SC (05:40)
[2024-06-29] MEDS: Lactated Ringers 1,000 ML 125 ML IV (05:41)
[2024-06-29 06:35] LABS: Hematocrit 30.4 % (37-47); Hemoglobin 9.8 g/dL (12.0-15.0); Mean Corp Hgb Conc 32.2 g/dL (32-36); Mean Corpuscular Hgb 32.6 pg (27.0-32.0); Mean Platelet Vol. 11.2 fl (6.2-12.0); Platelet Count 199 K/mm3 (150-450); RBC Distribution Width CV 13.1 % (11.6-14.6); RBC Distribution Width SD 48.4 fl (35.1-43.9); Red Blood Count 3.01 M/mm3 (4.2-5.4); White Blood Count 11.2 K/mm3 (4.4-11.0)
[2024-06-29] MEDS: Ipratropium/Albuterol Sulfate 3 ML AMPUL.NEB INHALATION ×3 (06:56→19:42)
[2024-06-29] MEDS: Budesonide Respules 0.5 MG/2 ML AMPUL.NEB. INHALATION ×2 (06:56→19:42)
[2024-06-29 07:00] LABS: Anion Gap 8 (5-15); BUN 57 mg/dL (7-18); BUN/Creat Ratio 21.1 RATIO (10-20); Calcium,Total 8.8 mg/dL (8.5-10.1); Chloride 100 mmol/L (98-107); EST Glomerular Filtration Rate 19 mL/min (>60); Est Glom Filt Rate - Afr Amer 23 mL/min (>60); Estimated Creatinine Clearance 19.53 ml/min; Glucose 193 mg/dL (74-106); Magnesium 2.3 mg/dL (1.6-2.6); Phosphorus 2.3 mg/dL (2.5-4.9); Potassium 5.2 mmol/L (3.5-5.1); Sodium Level 128 mmol/L (136-145)
[2024-06-29 07:27] LABS: Bedside Glucose 179 mg/dL (74-106)
--- NOTE | 2024-06-29 08:10 | US_ITS ---
STUDY: RENAL ULTRASOUND - COMPLETE REASON FOR EXAM: Female, 58 years old. Elevated BUN/creatinine TECHNIQUE: Ultrasound evaluation of the kidneys was performed with real-time and static ny-scale imaging. COMPARISON: None. FINDINGS: RIGHT KIDNEY: Normal location of the right kidney, which is normal in size. The right kidney measures 9.7 x 4.7 x 4.8 cm. There is a normal cortex of the right kidney. The renal cortex measures 1.2 cm. There is no right renal mass or cyst. There are no right renal calculi. There is no right hydronephrosis. DISTAL RIGHT URETER: There is non-visualization of the distal right ureter. There is no demonstrated right ureterovesical junction calculus. There is a visualized right ureteral jet. LEFT KIDNEY: Normal location of the left kidney, which is normal in size. The left kidney measures 9.3 x 4.7 x 5.2 cm. There is a normal cortex of the left kidney. The renal cortex measures 1.2 cm. There is no left renal mass or cyst. There are no left renal calculi. There is no left hydronephrosis. DISTAL LEFT URETER: There is non-visualization of the distal left ureter. There is no demonstrated left ureterovesical junction calculus. There is a visualized left ureteral jet. AORTA: There is no elongation or tortuosity of the abdominal aorta. I.V.C.: The IVC is patent. BLADDER: The distended urinary bladder has a volume of 226 ml. The empty urinary bladder has a volume of less than 5 ml. There is a normal wall thickness of the distended urinary bladder. There is no demonstrated mass within the urinary bladder. There are no demonstrated bladder calculi. US/Kidney and Bladder IMPRESSION: Normal ultrasound of the kidneys and urinary bladder. Electronically Signed: Nicolás Hendricks MD at 11:25 EDT ,
--- NOTE | 2024-06-29 12:14 | CASEMGMT ---
Discharge Planning A list of?SNF providers including quality and resource use data and consistent with the patient's preferred geographic region, medical needs, and insurance network was created in [facility] Guide.? This list was provided to the SW. Lula Zaman Discharge Planning Asst.
[2024-06-29] MEDS: 0.9% Saline Lock 10 ML Syringe IV ×2 (12:32→16:42)
[2024-06-29] MEDS: Sodium Phosphate/Na Biphos 21 MMOL in 0.9% Normal Saline (250mL Bag) 250 ML 84 MMOL IV (12:32)
[2024-06-29] MEDS: Sodium Polystyrene Sulfonate 15 GM/60 ML UDC 30 GM PO (12:33)
[2024-06-29] MEDS: Insulin Glargine-YFGN 100 UNIT/ML Pen 24 UNIT SC (12:38)
[2024-06-29] MEDS: Insulin Lispro 100 UNIT/ML INSULN.PEN SC ×3 (12:39→22:11)
[2024-06-29] MEDS: Famotidine 20 MG Tablet PO (12:40)
[2024-06-29] MEDS: Senna/Docusate Sodium 1 Tablet 2 TABLET PO ×2 (12:40→22:10)
[2024-06-29] MEDS: Loratadine 10 MG Tablet PO (12:41)
[2024-06-29 13:10] LABS: Bedside Glucose 233 mg/dL (74-106)
--- NOTE | 2024-06-29 13:31 | CASEMGMT ---
Addendum entered by Laura Luna 06/29/24 15:17: TCU referral completed. Pending acceptance. TOBY Mejia Original Note: Social Work- SW met with pt to discuss cntinued recommendation of additional therapy at d/c by PT/OT. Pt states that she would like a referral to TCU as FOC. A list of SNF providers including quality and resource use data and consistent with the patient?s preferred geographic region, medical needs, and insurance network were provided from the [facility] Guide for pt to consider if TCU is unable to accept. TOBY Mejia
[2024-06-29 14:45] LABS: Mucous, Urine 0 SEEN /hpf (<or=2+); Red Blood Cells-Urine 0 SEEN /hpf (0-5)
[2024-06-29 14:48] LABS: Color, Urine Yellow (Yellow); Glucose, Dipstick Normal (Normal); Ketone-Dipstick Negative (Negative); Leukocyte Esterase-Dipstick 25 /ul (Negative); Nitrite-Dipstick Negative (Negative); Occult Blood-Urine Negative /ul (Negative); Protein-Dipstick 100 mg/dl (Negative); Specific Gravity, Urine 1.025 (1.002-1.030); Urine Bilirubin Dipstick Negative (Negative); Urine Clarity Sl. Cloudy (Clear); Urine Urobilinogen Normal (Normal)
[2024-06-29 14:55] LABS: Bacteria 1+ /hpf (None Seen); Squamous Epithelial Cells - UA 0-5 SEEN /hpf (5-10); White Blood Cells 0-5 SEEN /hpf (0-5)
[2024-06-29 15:00] LABS: Urine Sodium 11 mmol/L (Not Establ.)
[2024-06-29] MEDS: Ondansetron 4 MG/2 ML Vial IV (16:42)
[2024-06-29 17:45] LABS: Bedside Glucose 179 mg/dL (74-106)
--- NOTE | 2024-06-29 17:51 | PCM.PN.HOSP ---
Reason for Visit Reason for Visit: Right hip pain Subjective Subjective Patient has no complaints. We did discuss that her kidney function is slightly worse and I suspect it is related to hypotension in the perioperative period. Has no complaints. Initially fairly resistant to going on for more therapy at skilled facility at discharge however stated she would think about it and if we strongly recommended she would likely do it. I did indicate to her that it would probably be needed but we would see how therapy went today. Objective Data Objective Data Vital Signs: Vital Signs Temp Pulse Resp BP Pulse Ox O2 Del Method O2 Flow Rate 97.5 F L 75 17 106/58 L 93 Room Air 2 06/29/24 16:44 06/29/24 16:44 06/29/24 16:44 06/29/24 16:44 06/29/24 16:44 06/29/24 16:44 06/29/24 04:26 Oxygen Flow Rate (L/min) 2 Oxygen Delivery Method Room Air Weight: 69.6 kg Body Mass Index (BMI) 30.1 Intake & Output: Intake and Output for Last 24 Hours 06/27/24 06/28/24 06/29/24 23:59 23:59 23:59 Intake Total 750 / 972 1322 / 1522 2600 / 2600 Output Total 700 / 700 450 / 450 Balance 50 / 272 1322 / 1372 2150 / 2150 Lab / Micro Data 06/29/24 05:58 06/29/24 05:58 Labs: Laboratory Results - last 24 hr 06/28/24 23:51: POC Glucose 162 H 06/29/24 05:58: WBC 11.2 H, RBC 3.01 L, Hgb 9.8 L, Hct 30.4 L, MCV 101.0 H, MCH 32.6 H, MCHC 32.2, RDW Std Deviation 48.4 H, RDW Coeff of Yudelka 13.1, Plt Count 199, MPV 11.2, Sodium 128 L, Potassium 5.2 H, Chloride 100, Carbon Dioxide 20.0 L, Anion Gap 8, BUN 57 H, Creatinine 2.70 H, Estim Creat Clear Calc 19.53, Est GFR (MDRD) Af Amer 23 L, Est GFR (MDRD) Non-Af 19 L, BUN/Creatinine Ratio 21.1 H, Glucose 193 H, Calcium 8.8, Phosphorus 2.3 L, Magnesium 2.3 06/29/24 07:09: POC Glucose 179 H 06/29/24 12:37: POC Glucose 233 H 06/29/24 14:35: Urine Color Yellow, Urine Clarity Sl. Cloudy, Urine pH 5.0, Ur Specific [place] 1.025, Urine Protein 100 H, Urine Glucose (UA) Normal, Urine Ketones Negative, Urine Occult Blood Negative, Urine Nitrite Negative, Urine Bilirubin Negative, Urine Urobilinogen Normal, Ur Leukocyte Esterase 25 H, Urine RBC 0 SEEN, Urine WBC 0-5 SEEN, Ur Squamous Epith Cells 0-5 SEEN, Urine Bacteria 1+, Urine Mucus 0 SEEN, Ur Random Sodium 11, Urine Creatinine 159.00 06/29/24 16:35: POC Glucose 179 H Radiography Diagnostic Testing: Radiology Impression Echocardiogram 06/26/24 05:55 Interpretation Summary Moderate eccentric left ventricular hypertrophy. Left ventricular systolic function is normal. The left ventricular ejection fraction is 75 %. No pericardial effusion. Mild tricuspid valve insufficiency. Stage 1 diastolic dysfunction. Ordering Physician: Flor Parks Performed By: Leticia Abraham [facility] Renal Ultrasound 06/29/24 08:10 IMPRESSION: Normal ultrasound of the kidneys and urinary bladder. Electronically Signed: Nicolás Hendricks MD at 11:25 EDT , Physical Exam Narrative Const alert, oriented x3, no apparent distress and well nourished; Negative for average body habitus or healthy appearing Constitutional Narrative: Obese, middle-aged, white female, sitting up in a chair at the bedside, watching television, appears comfortable and nontoxic, appears older than stated age HEENT normocephalic, head/scalp atraumatic and moist oral mucous membranes HEENT Narrative: Mallampati 2, no thrush Eyes PERRL, EOMs intact bilaterally and conjunctivae normal Neck no lymphadenopathy and supple Resp normal respiratory effort, no retractions, no use of accessory muscles and clear to auscultation bilaterally Resp Narrative: Wheezing has resolved Auscultation: Negative for rales, rhonchi or wheezes Cardio regular rate, regular rhythm, S1 normal heart sound, S2 normal heart sound, no murmurs, no rub, no gallops and no clicks GI normal to inspection, nondistended, normoactive bowel sounds, soft to palpation and non-tender Extremity no clubbing, cyanosis or edema Extremity Narrative: Pedal and radial pulses are 2+ Skin no jaundice, no petechiae and no mottling Neuro oriented x3, CN's II-XII intact bilaterally and no focal motor deficits Speech: speech normal Motor Exam: general weakness Psych thought process normal and cooperative Psych Narrative: Interacts appropriately, eye contact is good and patient is very pleasant Assessment & Plan Assessment/Plan (1) Left patella fracture: QUALIFIERS: Encounter type: initial encounter Fracture type: closed Fracture morphology: transverse Fracture alignment: nondisplaced Qualified Code(s): S82.035A - Nondisplaced transverse fracture of left patella, initial encounter for closed fracture (2) Closed fracture of neck of right femur: QUALIFIERS: Encounter type: initial encounter Qualified Code(s): S72.001A - Fracture of unspecified part of neck of right femur, initial encounter for closed fracture (3) DELGADO (acute kidney injury): PLAN: Plan Right subcapital femoral neck fracture status post mechanical fall -Postop day 3 total hip arthroplasty on the right -Weightbearing as tolerated right lower extremity -Continue hip dislocation precautions -Postoperative dressing can be removed on 07/01/2024 -Continue subcu Lovenox for DVT prophylaxis currently and will need discussed with orthopedic surgery if patient discharges home otherwise will continue subcu Lovenox for 30 days after surgery -Continue as needed pain medication -Continue scheduled acetaminophen -Bowel regimen as ordered -2-week postoperative follow-up with Dr. Siu after discharge Left patellar fracture -Continue knee immobilizer and patient may be weightbearing as tolerated with knee immobilizer in place -Patient plans to follow-up as an outpatient with her can orthopedic surgeons for this -Continue ice and pain medication as noted above Hypotension -Blood pressure better today with volume expansion however still not baseline -Continue IV fluids through tomorrow morning and recheck next-continue to hold home antihypertensives DELGDAO on CKD stage IIIa -Baseline serum creatinine appears to run between 1.3 and 1.4 but was down to 1.07 on presentation -2.20 --> 2.7 today -Urine sodium is 11 ---> FENa= 0.15% -Consistent with prerenal azotemia -continue IV fluids -Repeat lab in a.m. -Avoid nephrotoxins as able -Continue to hold lisinopril Hyperkalemia -Mild -Likely related to renal dysfunction -Kayexalate x 1 dose -Repeat lab in a.m. Hyponatremia -Likely related to renal dysfunction -Continue IV fluids -Should improve with improvement in renal function FEN repeat lab in a.m. Essential hypertension -Hold lisinopril with low blood pressures and DELGADO Anemia -Relatively stable considering volume expansion with IV fluids -Repeat lab in a.m. -No signs of acute bleeding Mild leukocytosis -Suspect related to hemoconcentration and acute stress -Repeat lab in a.m. Acute hyponatremia -Slight trend downward to 128 -Patient is currently getting IV fluids -Repeat lab in a.m. DM-2 -Continue home insulin -Blood sugars are slightly up likely related to acute stress -Will hold off on increasing further with DELGADO Diabetic neuropathy -Patient is on gabapentin 800 3 times daily at home -Continue lower dose of gabapentin due to renal dysfunction COPD with ongoing tobacco abuse -Continue budesonide -Restart home inhalers at discharge -Continue scheduled DuoNebs -Strongly encourage patient to be compliant with I-S and Acapella -Now on room air Hyperlipidemia -Will restart atorvastatin if she is taking this however it is questionable whether or not she has been based on the med reconciliation Abnormal TSH -7.52 on presentation the patient is not on Synthroid -Free T4 is normal at 0.76 -Would not recommend levothyroxine at this point and recommend repeat outpatient TSH in 6 weeks -Discontinue levothyroxine DVT prophylaxis -Continue subcu Lovenox CODE STATUS Full code Charges/Coding Visit Charges Inpatient E&M: 71731 [facility] Hosp L3
[2024-06-29] MEDS: Lactated Ringers 1,000 ML 100 ML IV (17:56)
[2024-06-29] MEDS: Atorvastatin Calcium 80 MG Tablet PO (22:10)
[2024-06-29] MEDS: Acetaminophen 500 MG Tablet 1000 MG PO (22:11)
[2024-06-29] MEDS: oxyCODONE 5 MG Tablet PO (22:15)
[2024-06-29] MEDS: MELATONIN 3 MG TABLET PO (22:15)
[2024-06-29 22:31] LABS: Bedside Glucose 190 mg/dL (74-106)
[2024-06-30] VITALS (7 sets, daily range): BP systolic 94–112; BP diastolic 62–70; PULSE 64–73; RESP 12–18; TEMP 36.6–36.8; O2SAT 94–97; BMI 32.7
[2024-06-30 05:35] LABS: Hematocrit 27.7 % (37-47); Hemoglobin 8.9 g/dL (12.0-15.0); Mean Corp Hgb Conc 32.1 g/dL (32-36); Mean Corpuscular Hgb 32.5 pg (27.0-32.0); Mean Corpuscular Volume 101.1 fL (81-99); Mean Platelet Vol. 10.8 fl (6.2-12.0); Platelet Count 215 K/mm3 (150-450); RBC Distribution Width SD 47.8 fl (35.1-43.9); Red Blood Count 2.74 M/mm3 (4.2-5.4); White Blood Count 9.2 K/mm3 (4.4-11.0)
[2024-06-30] MEDS: Acetaminophen 500 MG Tablet 1000 MG PO ×2 (06:13→19:56)
[2024-06-30] MEDS: Enoxaparin 30 MG/0.3 ML Syringe SC (06:13)
[2024-06-30] MEDS: Gabapentin 100 MG Capsule 200 MG PO (06:13)
[2024-06-30 06:20] LABS: Anion Gap 6 (5-15); BUN 61 mg/dL (7-18); BUN/Creat Ratio 24.7 RATIO (10-20); Calcium,Total 8.4 mg/dL (8.5-10.1); Chloride 103 mmol/L (98-107); Creatinine, Serum 2.47 mg/dL (0.55-1.02); EST Glomerular Filtration Rate 21 mL/min (>60); Est Glom Filt Rate - Afr Amer 26 mL/min (>60); Estimated Creatinine Clearance 22.34 ml/min; Glucose 93 mg/dL (74-106); Phosphorus 5.9 mg/dL (2.5-4.9); Potassium 4.5 mmol/L (3.5-5.1); Sodium Level 131 mmol/L (136-145)
[2024-06-30 06:35] LABS: Bedside Glucose 86 mg/dL (74-106)
--- NOTE | 2024-06-30 08:08 | CPS ---
Pt doesn't like the aerosols and does not want any more. RT will backline message the
[2024-06-30] MEDS: Senna/Docusate Sodium 1 Tablet 2 TABLET PO ×2 (09:21→19:56)
[2024-06-30] MEDS: oxyCODONE 5 MG Tablet PO ×2 (09:22→15:39)
--- NOTE | 2024-06-30 09:54 | CASEMGMT ---
Social Work- TCU accepted; precert started. Pt updated. TOBY Mejia
[2024-06-30 10:39] LABS: Bedside Glucose 85 mg/dL (74-106)
--- NOTE | 2024-06-30 10:53 | CASEMGMT ---
Social Work- SW advised by TCU that they erroneously accepted pt d/t not working with her form of [facility]. PT updated that a second choice would be needed for d/c placement. [facility]. DCA advised. SW will remain available to follow. TOBY Mejia
--- NOTE | 2024-06-30 11:04 | CASEMGMT ---
Addendum entered by Lula Zaman 07/01/24 11:23: [facility] accepted. Requested that precert be started. SW updated. Lula Zaman DC Planning Asst. Original Note: Discharge Planning Referral sent to [facility]. Lula Zaman DC Planning Asst.
[2024-06-30] MEDS: Lactated Ringers 1,000 ML 100 ML IV ×2 (12:36→22:09)
[2024-06-30 12:53] LABS: Bedside Glucose 92 mg/dL (74-106)
--- NOTE | 2024-06-30 16:02 | PN.HOSP_ITS ---
Reason for Visit Reason for Visit: Right hip pain Subjective Subjective No complaints today. Patient is reluctantly agreeable to go to penitentiary facility or rehab unit after discharge but she is disappointed because she misses her dog. She has a new puppy that is a Cavapoo. No specific complaints. Is not sleeping well at night. Objective Data Objective Data Vital Signs: Vital Signs Temp Pulse Resp BP Pulse Ox O2 Del Method O2 Flow Rate 98.3 F 73 18 112/70 94 Room Air 2 06/30/24 15:54 06/30/24 15:54 06/30/24 15:54 06/30/24 15:54 06/30/24 15:54 06/30/24 15:54 06/30/24 02:00 Oxygen Flow Rate (L/min) 2 Oxygen Delivery Method Room Air Weight: 76 kg Body Mass Index (BMI) 32.7 Intake & Output: Intake and Output for Last 24 Hours 06/28/24 06/29/24 06/30/24 23:59 23:59 23:59 Intake Total 1322 / 1522 3257 / 3257 1108.33 / 1108.33 Output Total 800 / 800 Balance 1322 / 1372 2457 / 2457 1108.33 / 1108.33 Lab / Micro Data 06/30/24 05:20 06/30/24 05:20 Labs: Laboratory Results - last 24 hr 06/29/24 16:35: POC Glucose 179 H 06/29/24 22:09: POC Glucose 190 H 06/30/24 05:20: WBC 9.2, RBC 2.74 L, Hgb 8.9 L, Hct 27.7 L, MCV 101.1 H, MCH 32.5 H, MCHC 32.1, RDW Std Deviation 47.8 H, RDW Coeff of Yudelka 13.0, Plt Count 215, MPV 10.8, Sodium 131 L, Potassium 4.5, Chloride 103, Carbon Dioxide 23.0, Anion Gap 6, BUN 61 H, Creatinine 2.47 H, Estim Creat Clear Calc 22.34, Est GFR (MDRD) Af Amer 26 L, Est GFR (MDRD) Non-Af 21 L, BUN/Creatinine Ratio 24.7 H, Glucose 93, Calcium 8.4 L, Phosphorus 5.9 H 06/30/24 06:12: POC Glucose 86 06/30/24 09:27: POC Glucose 85 06/30/24 12:29: POC Glucose 92 Physical Exam Narrative Const alert, oriented x3, no apparent distress and well nourished; Negative for average body habitus or healthy appearing Constitutional Narrative: Obese, middle-aged, white female, sitting up in a chair at the bedside, watching television, appears comfortable and nontoxic, appears older than stated age General Appearance: cooperative HEENT normocephalic, head/scalp atraumatic and moist oral mucous membranes HEENT Narrative: Mallampati 2 Resp normal respiratory effort, no retractions, no use of accessory muscles and clear to auscultation bilaterally Auscultation: Negative for rales, rhonchi or wheezes Cardio regular rate, regular rhythm, S1 normal heart sound, S2 normal heart sound, no murmurs, no rub, no gallops and no clicks GI normal to inspection, nondistended, normoactive bowel sounds, soft to palpation and non-tender Extremity no clubbing, cyanosis or edema Extremity Narrative: Pedal and radial pulses are 2+, left lower extremity knee immobilizer in place, AMEE hose bilateral lower extremities Neuro oriented x3 and no focal motor deficits Speech: speech normal Motor Exam: general weakness Psych thought process normal and cooperative Psych Narrative: Interacts appropriately, eye contact is good and patient is very pleasant, affect is slightly flat today as patient is somewhat disappointed about having to go to rehab before going home Appearance: appropriate Assessment & Plan Assessment/Plan (1) Left patella fracture: QUALIFIERS: Encounter type: initial encounter Fracture type: c losed Fracture morphology: transverse Fracture alignment: nondisplaced Q ualified Code(s): S82.035A - Nondisplaced transverse fracture of left patella, initial encounter for closed fracture (2) Closed fracture of neck of right femur: QUALIFIERS: Encounter type: initial encounter Qualified Code(s): S72.001A - Fracture of unspecified part of neck of right femur, initial encounter for closed fracture (3) DELGADO (acute kidney injury): PLAN: Plan Right subcapital femoral neck fracture status post mechanical fall -Postop day 4 total hip arthroplasty on the right -Weightbearing as tolerated right lower extremity -Continue hip dislocation precautions -Postoperative dressing can be removed on 07/01/2024 -Continue subcu Lovenox for DVT prophylaxis currently and will need discussed with orthopedic surgery if patient discharges home otherwise will continue subcu Lovenox for 30 days after surgery -Continue as needed pain medication -Continue scheduled acetaminophen -Bowel regimen as ordered -2-week postoperative follow-up with Dr. Siu after discharge Left patellar fracture -Continue knee immobilizer and patient may be weightbearing as tolerated with knee immobilizer in place -Patient plans to follow-up as an outpatient with her can orthopedic surgeons for this -Continue ice and pain medication as noted above Hypotension -Blood pressure continues to improve after and with ongoing volume expansion however still remains not quite at baseline -Continue IV fluids through tomorrow morning and recheck next-continue to hold home antihypertensives DELGADO on CKD stage IIIa secondary to prerenal azotemia -Baseline serum creatinine appears to run between 1.3 and 1.4 but was down to 1.07 on presentation -2.20 --> 2.7--> 2.47 today -continue IV fluids for 2 more liters -Repeat lab in a.m. -Avoid nephrotoxins as able -Continue to hold lisinopril -Renal ultrasound is unremarkable Hyperkalemia -Resolved Hyponatremia -Resolving -Repeat lab in a.m. Essential hypertension -Hold lisinopril with low blood pressures and DELGADO -Blood pressures are slowly improving Anemia -Slight drop today however no signs of active bleeding and patient has had volume expansion -Repeat lab in a.m. -No signs of acute bleeding Mild leukocytosis -Suspect related to hemoconcentration and acute stress -Repeat lab in a.m. Acute hyponatremia -Slight trend downward to 128 -Patient is currently getting IV fluids -Repeat lab in a.m. DM-2 -Continue home insulin -Blood sugars are slightly up likely related to acute stress -Will hold off on increasing further with DELGADO Diabetic neuropathy -Patient is on gabapentin 800 3 times daily at home -Continue lower dose of gabapentin due to renal dysfunction COPD with ongoing tobacco abuse -Continue budesonide -Restart home inhalers at discharge -Continue scheduled DuoNebs -Strongly encourage patient to be compliant with I-S and Acapella -Now on room air Hyperlipidemia -Does not appear on her external fill history that she has been taking this -Will hold for now and have her follow-up as an outpatient Abnormal TSH -7.52 on presentation the patient is not on Synthroid -Free T4 is normal at 0.76 -Would not recommend levothyroxine at this point and recommend repeat outpatient TSH in 6 weeks DVT prophylaxis -Continue subcu Lovenox CODE STATUS Full code Charges/Coding Visit Charges Inpatient E&M: 05783 Subs Hosp L2
[2024-06-30 17:47] LABS: Bedside Glucose 116 mg/dL (74-106)
[2024-06-30] MEDS: Naloxone 0.4 MG/ML Syringe 0.2 MG IV (18:48)
--- NOTE | 2024-06-30 19:30 | PCM.HOSP.N ---
Hospitalist Note I was called by nursing staff due to decreased mental status and sleepiness from patient. Her last dose of oxycodone was 10 mg at 3 PM and I was called about 6:30 PM. Nursing reported that the family had been at the bedside they went back in to see her and she was much sleepier still sitting up in the chair. She was somewhat difficult to arouse. Pupils were pinpoint. 0.2 mg of Narcan given. Patient then became arousable fairly quickly. Initially denied any other substances however finally did admit that she took three 7.5 mg Percocet in addition to the 10 mg of oxycodone we gave her at 3 PM. She states family brought it in. Nursing did discuss with her the importance of not taking any home medications in addition to medications were giving her on the hospitalist due to danger to herself with at the very worst consequences from his behavior to include and requirement of mechanical ventilation. Her items are searched for any more narcotics and none were found. I will discuss this further with the patient when I see her tomorrow with regards to trust that we need to have with each other in order for her to get her best care. Patient does have known history of substance abuse.
[2024-06-30] MEDS: 0.9% Saline Lock 10 ML Syringe IV (19:55)
[2024-06-30] MEDS: Atorvastatin Calcium 80 MG Tablet PO (19:55)
[2024-06-30 20:32] LABS: Bedside Glucose 162 mg/dL (74-106)
[2024-06-30 21:25] LABS: Bedside Glucose 121 mg/dL (74-106)
--- NOTE | 2024-06-30 23:34 | NURSING ---
1941-placed on cont pox, o2@2l. Wakes to name but did not follow directions for several minutes then could give name and birthday.
[2024-07-01] VITALS (11 sets, daily range): BP systolic 110–179; BP diastolic 69–98; PULSE 62–80; RESP 13–18; TEMP 36.3–36.9; O2SAT 94–98; BMI 33.1
[2024-07-01] MEDS: Enoxaparin 30 MG/0.3 ML Syringe SC (05:28)
[2024-07-01] MEDS: Gabapentin 100 MG Capsule 200 MG PO ×3 (05:37→22:18)
[2024-07-01 06:15] LABS: Bedside Glucose 59 mg/dL (74-106)
[2024-07-01 06:15] LABS: Bedside Glucose 99 mg/dL (74-106)
[2024-07-01 07:03] LABS: Hematocrit 26.3 % (37-47); Hemoglobin 8.5 g/dL (12.0-15.0); Mean Corp Hgb Conc 32.3 g/dL (32-36); Mean Corpuscular Hgb 32.4 pg (27.0-32.0); Mean Corpuscular Volume 100.4 fL (81-99); Mean Platelet Vol. 11.1 fl (6.2-12.0); Platelet Count 221 K/mm3 (150-450); RBC Distribution Width SD 47.7 fl (35.1-43.9); Red Blood Count 2.62 M/mm3 (4.2-5.4); White Blood Count 7.4 K/mm3 (4.4-11.0)
[2024-07-01 08:26] LABS: Anion Gap 5 (5-15); BUN 60 mg/dL (7-18); BUN/Creat Ratio 28.4 RATIO (10-20); Calcium,Total 8.4 mg/dL (8.5-10.1); Chloride 104 mmol/L (98-107); Creatinine, Serum 2.11 mg/dL (0.55-1.02); EST Glomerular Filtration Rate 25 mL/min (>60); Est Glom Filt Rate - Afr Amer 31 mL/min (>60); Estimated Creatinine Clearance 26.33 ml/min; Glucose 113 mg/dL (74-106); Potassium 4.3 mmol/L (3.5-5.1); Sodium Level 133 mmol/L (136-145)
[2024-07-01] MEDS: Famotidine 20 MG Tablet PO (09:51)
[2024-07-01] MEDS: Senna/Docusate Sodium 1 Tablet 2 TABLET PO ×2 (09:51→22:18)
[2024-07-01] MEDS: Loratadine 10 MG Tablet PO (09:51)
[2024-07-01 10:14] LABS: Bedside Glucose 70 mg/dL (74-106)
--- NOTE | 2024-07-01 11:08 | NURSING ---
talked with Dr. Smith and Primary RN Karen as bottle of medication found in patient's possession. medication locked up after counted as per policy. Dr. Smith as bottle was for oxycodone-acetaminophen 7.5/325mg filled on 06/26/24 (a day after admission to hospital) bottle quantity listed as 120tab. amount counted 58 tablets. attempted to get in contact with Dr. Marcus Mart who is listed on bottle. left message. Dr. Smith informed Dr. Willian Mart as list as Pain management for [facility].
--- NOTE | 2024-07-01 11:19 | NURSING ---
pcp attemped to be called per [facility] Dr. Julian has retired. Updated Dr. Ramos's nurse regarding home med. per nurse pt was also seeing Dr. Navi Blackman from pain management as well as PCP Dr. Tay. per nurse she will also forward information regarding concerns with home narcotic to Dr. Blackman and Dr. Tya.
[2024-07-01 11:38] LABS: Bedside Glucose 82 mg/dL (74-106)
--- NOTE | 2024-07-01 13:03 | NURSING ---
Dr.Michael Mart's nurse called back updated on situation regarding home pain medication filled on 06/26/24
[2024-07-01] MEDS: Dicyclomine 10 MG Capsule 20 MG PO (14:48)
[2024-07-01] MEDS: Acetaminophen 500 MG Tablet 1000 MG PO ×2 (14:49→22:18)
[2024-07-01] MEDS: hydrALAZINE 20 MG/ML Vial 10 MG IV (15:40)
[2024-07-01 16:40] LABS: Bedside Glucose 153 mg/dL (74-106)
[2024-07-01] MEDS: Insulin Lispro 100 UNIT/ML INSULN.PEN SC (17:16)
[2024-07-01] MEDS: Ondansetron 8 MG Tablet PO (17:16)
[2024-07-01] MEDS: Methocarbamol 750 MG Tablet PO (17:16)
[2024-07-01] MEDS: hydrOXYzine PAM 25 MG Capsule 50 MG PO (17:16)
--- NOTE | 2024-07-01 18:56 | PN.HOSP_ITS ---
Reason for Visit Reason for Visit: Right hip pain/left knee pain after fall Subjective Subjective Discussed events of last evening with the patient. Also in that time. We found a whole bottle of Percocet. The prescription was filled on 06/26/2024 and had been filled for 120 tablets. Tablets were counted and only 58 tablets were left. I asked the patient if she taken all the tablets and she said no she gave them to somebody at which time I told her that was illegal and then she changed her story stating that they actually were stolen. We discussed how important honesty is in the patient physician relationship. She apologized several times. She is complaining of some abdominal pain today which is new for her since yesterday here. She states she has had extensive workup as an outpatient for her abdominal pain with negative results thus far. All of the workup has been done including clinic per her report. I did discuss with her that abdominal pain is a symptom of opiate withdrawal and she denied that that could possibly be the etiology for her current symptoms. I did notify her that I was going to discuss her inappropriate use of narcotics with her pain management physician and that they would likely no longer be able to see her in the practice. She stated she understood. Practice was notified and they did indicate that they would no longer be prescribing narcotics for her. She was notified of this. We did discuss the possibility of her going through detox for opiates here and she was amenable to this so order set was initiated for medications related to acute opiate withdrawal. Objective Data Objective Data Vital Signs: Vital Signs Temp Pulse Resp BP Pulse Ox O2 Del Method O2 Flow Rate 98.1 F 78 18 161/74 H 95 Room Air 2 07/01/24 15:31 07/01/24 15:40 07/01/24 15:31 07/01/24 16:30 07/01/24 15:31 07/01/24 15:31 07/01/24 09:23 Oxygen Flow Rate (L/min) 2 Oxygen Delivery Method Room Air Weight: 77 kg Body Mass Index (BMI) 33.1 Intake & Output: Intake and Output for Last 24 Hours 06/29/24 06/30/24 07/01/24 23:59 23:59 23:59 Intake Total 3257 / 3257 2183.33 / 2183.33 1850 / 1850 Output Total 800 / 800 Balance 2457 / 2457 2183.33 / 2183.33 1850 / 1850 Lab / Micro Data 07/01/24 06:35 07/01/24 06:35 Labs: Laboratory Results - last 24 hr 06/30/24 18:23: POC Glucose 162 H 06/30/24 20:10: POC Glucose 121 H 07/01/24 05:30: POC Glucose 59 L 07/01/24 05:57: POC Glucose 99 07/01/24 06:35: WBC 7.4, RBC 2.62 L, Hgb 8.5 L, Hct 26.3 L, MCV 100.4 H, MCH 32.4 H, MCHC 32.3, RDW Std Deviation 47.7 H, RDW Coeff of Yudelka 13.0, Plt Count 221, MPV 11.1, Sodium 133 L, Potassium 4.3, Chloride 104, Carbon Dioxide 24.0, Anion Gap 5, BUN 60 H, Creatinine 2.11 H, Estim Creat Clear Calc 26.33, Est GFR (MDRD) Af Amer 31 L, Est GFR (MDRD) Non-Af 25 L, BUN/Creatinine Ratio 28.4 H, G lucose 113 H, Calcium 8.4 L 07/01/24 09:49: POC Glucose 70 L 07/01/24 11:20: POC Glucose 82 07/01/24 16:22: POC Glucose 153 H Physical Exam Narrative Const alert, oriented x3, no apparent distress and well nourished; Negative for average body habitus or healthy appearing Constitutional Narrative: Obese, middle-aged, white female, sitting up in a chair at the bedside, watching television, appears comfortable and nontoxic, appears older than stated age General Appearance: cooperative HEENT normocephalic, head/scalp atraumatic and moist oral mucous membranes HEENT Narrative: Mallampati 3, no thrush Eyes PERRL and EOMs intact bilaterally Eyes Narrative: No scleral icterus, mild conjunctiva pallor bilaterally Neck no lymphadenopathy and supple Neck Narrative: Trachea midline, no thyroid enlargement, neck is short and thick Resp normal respiratory effort, no retractions, no use of accessory muscles and clear to auscultation bilaterally Resp Narrative: Diminished but clear Auscultation: Negative for rales, rhonchi or wheezes Cardio regular rate, regular rhythm, S1 normal heart sound, S2 normal heart sound, no murmurs, no rub, no gallops and no clicks GI normal to inspection, nondistended, normoactive bowel sounds, soft to palpation and non-tender Extremity no clubbing, cyanosis or edema Extremity Narrative: Pedal and radial pulses are 2+, left lower extremity knee immobilizer in place, AMEE hose bilateral lower extremities Neuro oriented x3 and no focal motor deficits Speech: speech normal Motor Exam: general weakness Psych Psych Narrative: Pleasant, interacts appropriately, apologetic, affect is a bit flat today Assessment & Plan Assessment/Plan (1) Left patella fracture: QUALIFIERS: Encounter type: initial encounter Fracture type: c losed Fracture morphology: transverse Fracture alignment: nondisplaced Q ualified Code(s): S82.035A - Nondisplaced transverse fracture of left patella, initial encounter for closed fracture (2) Closed fracture of neck of right femur: QUALIFIERS: Encounter type: initial encounter Qualified Code(s): S72.001A - Fracture of unspecified part of neck of right femur, initial encounter for closed fracture (3) DELGADO (acute kidney injury): PLAN: Plan Right subcapital femoral neck fracture status post mechanical fall -Postop day 4 total hip arthroplasty on the right -Weightbearing as tolerated right lower extremity -Continue hip dislocation precautions -Postoperative dressing can be removed on 07/01/2024 -Continue subcu Lovenox for DVT prophylaxis currently and will need discussed with orthopedic surgery if patient discharges home otherwise will continue subcu Lovenox for 30 days after surgery -Continue as needed pain medication -Continue scheduled acetaminophen -Bowel regimen as ordered -2-week postoperative follow-up with Dr. Siu after discharge Left patellar fracture -Continue knee immobilizer and patient may be weightbearing as tolerated with knee immobilizer in place -Patient plans to follow-up as an outpatient with her can orthopedic surgeons for this -Continue ice and pain medication as noted above Opiate abuse -Patient is agreeable for opiate detox -Start Subutex taper per [facility] protocol -Supportive medication for withdrawal symptoms -180 consultation for assistance with discharge planning and posthospital care -Her pain management provider was notified of her noncompliance with pain management agreement and they did indicate she would no longer get prescriptions for narcotics from them--> she was notified of this Unintentional opiate overdose -Patient had been getting 5 to 10 mg of oxycodone here every 6 hours -Last evening patient was found obtunded and difficult to arouse -Known history of substance abuse -0.2 of Narcan given with immediate response -Patient did finally admit to taking supplemental Percocet 7.5 mg in addition to her narcotics here -She did admit to taking 3 tablets on top of her 10 mg tablets given--> 32.5 mg oxy taken -Patient agreeable to opiate detox Hypotension -She is now hypertensive -Highly suspect her hypotension was related to her opiate overdosing DELGADO on CKD stage IIIa secondary to prerenal azotemia -Baseline serum creatinine appears to run between 1.3 and 1.4 but was down to 1.07 on presentation -2.20 --> 2.7--> 2.47--> 2.11 -Continue IV fluids and reevaluate tomorrow -Repeat lab in a.m. -Avoid nephrotoxins as able -Continue to hold lisinopril Hyponatremia -Resolving -Repeat lab in a.m. Essential hypertension -Hold lisinopril but blood pressures are improving now that patient is not overdosing on narcotics -Blood pressures are slowly improving Anemia -Relatively stable -Repeat lab in a.m. -No signs of acute bleeding Mild leukocytosis -Resolved Acute hyponatremia -Now up to 133 -Patient is currently getting IV fluids -Repeat lab in a.m. DM-2 -Continue home insulin -Blood sugars are slightly up likely related to acute stress -Will hold off on increasing further with DELGADO Diabetic neuropathy -Patient is on gabapentin 800 3 times daily at home -Continue lower dose of gabapentin due to renal dysfunction COPD with ongoing tobacco abuse -Continue budesonide -Restart home inhalers at discharge -Continue scheduled DuoNebs -Strongly encourage patient to be compliant with I-S and Acapella -Now on room air Hyperlipidemia -Does not appear on her external fill history that she has been taking this -Will hold for now and have her follow-up as an outpatient Abnormal TSH -7.52 on presentation the patient is not on Synthroid -Free T4 is normal at 0.76 -Would not recommend levothyroxine at this point and recommend repeat outpatient TSH in 6 weeks DVT prophylaxis -Continue subcu Lovenox CODE STATUS Full code Charges/Coding Visit Charges Inpatient E&M: 44053 [facility] Hosp L3
[2024-07-01] MEDS: Atorvastatin Calcium 80 MG Tablet PO (22:19)
[2024-07-01 22:41] LABS: Bedside Glucose 97 mg/dL (74-106)
[2024-07-02] VITALS (10 sets, daily range): BP systolic 130–178; BP diastolic 64–88; PULSE 68–84; RESP 16; TEMP 36.5–36.8; O2SAT 92–98; BMI 33.1
[2024-07-02 05:20] LABS: Absolute Lymphocyte Count 1.48 X10^3/uL (0.83-4.51); Basophil# 0.02 X10^3/uL; Basophil% 0.3 % (0-1); Eosinophil# 0.17 X10^3/uL; Eosinophils% 2.3 % (0-5); Hematocrit 30.3 % (37-47); Hemoglobin 9.6 g/dL (12.0-15.0); Lymphocyte # 1.48 X10^3/ul (0.83-4.51); Lymphocyte % 19.7 % (19-41); Mean Corp Hgb Conc 31.7 g/dL (32-36); Mean Corpuscular Hgb 31.8 pg (27.0-32.0); Mean Corpuscular Volume 100.3 fL (81-99); Mean Platelet Vol. 10.8 fl (6.2-12.0); Monocyte# 0.78 X10^3/uL; Monocyte% 10.4 % (0-10); NRBC Flagged by Analyzer 0 % (0-5); Neutrophil # 5.03 X10^3/uL (2.7-7.7); Platelet Count 257 K/mm3 (150-450); RBC Distribution Width CV 12.9 % (11.6-14.6); RBC Distribution Width SD 47.5 fl (35.1-43.9); Red Blood Count 3.02 M/mm3 (4.2-5.4); White Blood Count 7.5 K/mm3 (4.4-11.0)
[2024-07-02] MEDS: Gabapentin 100 MG Capsule 200 MG PO ×3 (05:56→20:12)
[2024-07-02] MEDS: Enoxaparin 30 MG/0.3 ML Syringe SC (05:56)
[2024-07-02 06:10] LABS: Anion Gap 3 (5-15); BUN 48 mg/dL (7-18); BUN/Creat Ratio 28.9 RATIO (10-20); Calcium,Total 8.8 mg/dL (8.5-10.1); Chloride 106 mmol/L (98-107); Creatinine, Serum 1.66 mg/dL (0.55-1.02); EST Glomerular Filtration Rate 34 mL/min (>60); Est Glom Filt Rate - Afr Amer 41 mL/min (>60); Estimated Creatinine Clearance 33.47 ml/min; Glucose 96 mg/dL (74-106); Potassium 4.3 mmol/L (3.5-5.1); Sodium Level 137 mmol/L (136-145)
[2024-07-02 06:21] LABS: Bedside Glucose 86 mg/dL (74-106)
--- NOTE | 2024-07-02 08:42 | NURSING ---
talked with nurse from Dr. Tay's office she was confirming we are are aware of the response from the Pain management physicians regarding the situation yesterday with pt's home pain medication and follow up POC. Reinforced with Dr. Tay's nurse that Dr. Smith had requested that the Pain [facility] office contact the patient themselves to inform her of the POC. Informed her pt had made the decision yesterday that she did want to Detox, so Dr. Smith has started that process for her and we would ask the [facility] navigator to see pt. Nurse stated she would confirm that the Pain [facility] physicians are aware of this request.
[2024-07-02] MEDS: Loratadine 10 MG Tablet PO (08:57)
[2024-07-02] MEDS: Famotidine 20 MG Tablet PO (08:57)
[2024-07-02] MEDS: Senna/Docusate Sodium 1 Tablet 2 TABLET PO ×2 (08:57→20:12)
[2024-07-02] MEDS: Methocarbamol 750 MG Tablet PO (09:02)
--- NOTE | 2024-07-02 11:01 | CASEMGMT ---
Addendum entered by Laura Luna 07/02/24 12:55: Green sheet and transport placed on the chart. TOBY Mejia Original Note: Social Work- SW advised that pt has precert to [facility] and can d/c when medically ready. Physician and pt advised. TOBY Mejia
[2024-07-02] MEDS: Insulin Lispro 100 UNIT/ML INSULN.PEN SC ×3 (11:03→20:18)
[2024-07-02] MEDS: 0.9% Saline Lock 10 ML Syringe IV ×2 (11:10→16:40)
[2024-07-02] MEDS: hydrALAZINE 20 MG/ML Vial 10 MG IV ×2 (11:10→16:40)
--- NOTE | 2024-07-02 11:11 | CASEMGMT ---
Discharge Planning [facility] has obtained auth to admit. SW updated. Lula Zaman DC Planning Asst.
[2024-07-02 11:31] LABS: Bedside Glucose 162 mg/dL (74-106)
--- NOTE | 2024-07-02 12:05 | CASEMGMT ---
Discharge Planning [facility] notified of wknd discharge. Phone/fax for report obtained and green sheet placed in chart. Nursing is to call [facility] [phone] who will assign room and notify [facility] that pt will admit. Unit phone/fax also included on greeneet. Lula Zaman DC Planning Asst.
[2024-07-02] MEDS: Insulin Glargine-YFGN 100 UNIT/ML Pen 12 UNIT SC (12:29)
[2024-07-02] MEDS: Ondansetron 8 MG Tablet PO (12:30)
[2024-07-02] MEDS: Gabapentin 300 MG Capsule PO (12:30)
[2024-07-02] MEDS: Acetaminophen 500 MG Tablet 1000 MG PO ×2 (14:50→20:11)
[2024-07-02 16:50] LABS: Bedside Glucose 170 mg/dL (74-106)
--- NOTE | 2024-07-02 18:03 | PCM.PN.HOSP ---
Reason for Visit Reason for Visit: Right hip pain/left knee pain Subjective Subjective Patient still complaining of abdominal pain. She states she has had extensive workup at [facility] but cannot remember any of the tests but refuses to do any test that she is previously done. Given this I have advised her to follow-up with [facility]. She states so far no the testing has revealed anything. We did discuss that this could be related to opiate abuse. Patient denies this is the issue. Patient agrees to follow-up as an outpatient. COWS has been low and not needing any Suboxone. As needed medication available for symptom management. Objective Data Objective Data Vital Signs: Vital Signs Temp Pulse Resp BP Pulse Ox O2 Del Method O2 Flow Rate 97.8 F 79 16 178/64 H 96 Room Air 2 07/02/24 16:32 07/02/24 16:40 07/02/24 16:32 07/02/24 16:40 07/02/24 16:32 07/02/24 16:44 07/01/24 09:23 Oxygen Flow Rate (L/min) 2 Oxygen Delivery Method Room Air Weight: 77 kg Body Mass Index (BMI) 33.1 Intake & Output: Intake and Output for Last 24 Hours 06/30/24 07/01/24 07/02/24 23:59 23:59 23:59 Intake Total 2183.33 / 2183.33 2049 / 2049 700 / 700 Balance 2183.33 / 2183.33 2049 700 / 700 Lab / Micro Data 07/02/24 05:12 07/02/24 05:12 Labs: Laboratory Results - last 24 hr 07/01/24 22:14: POC Glucose 97 07/02/24 05:12: WBC 7.5, RBC 3.02 L, Hgb 9.6 L, Hct 30.3 L, MCV 100.3 H, MCH 31.8, MCHC 31.7 L, RDW Std Deviation 47.5 H, RDW Coeff of Yudelka 12.9, Plt Count 257, MPV 10.8, Immature Gran % (Auto) 0.300, Neut % (Auto) 67.0, Lymph % (Auto) 19.7, [place] % (Auto) 10.4 H, Eos % (Auto) 2.3, Baso % (Auto) 0.3, Absolute Neuts (auto) 5.0, Absolute Lymphs (auto) 1.48, Nucleated RBC % 0, Sodium 137, Potassium 4.3, Chloride 106, Carbon Dioxide 28.0, Anion Gap 3 L, BUN 48 H, Creatinine 1.66 H, Estim Creat Clear Calc 33.47, Est GFR (MDRD) Af Amer 41 L, Est GFR (MDRD) Non-Af 34 L, BUN/Creatinine Ratio 28.9 H, Glucose 96, Calcium 8.8 07/02/24 05:59: POC Glucose 86 07/02/24 11:01: POC Glucose 162 H 07/02/24 16:27: POC Glucose 170 H Physical Exam Narrative Const alert, oriented x3, no apparent distress and well nourished; Negative for average body habitus or healthy appearing Constitutional Narrative: Obese, middle-aged, white female, sitting up in bed watching television, appears comfortable and nontoxic, appears older than stated age General Appearance: cooperative HEENT normocephalic, head/scalp atraumatic and moist oral mucous membranes HEENT Narrative: Mallampati 3 Resp normal respiratory effort, no retractions, no use of accessory muscles and clear to auscultation bilaterally Resp Narrative: Diminished but clear Auscultation: Negative for rales, rhonchi or wheezes Cardio regular rate, regular rhythm, S1 normal heart sound, S2 normal heart sound, no murmurs, no rub, no gallops and no clicks GI normal to inspection, nondistended, normoactive bowel sounds, soft to palpation and non-tender Extremity no clubbing, cyanosis or edema Extremity Narrative: Pedal and radial pulses are 2+, left lower extremity knee immobilizer in place, AMEE hose bilateral lower extremities Neuro oriented x3 and no focal motor deficits Speech: speech normal Psych Psych Narrative: Slightly agitated today Assessment & Plan Assessment/Plan (1) Left patella fracture: QUALIFIERS: Encounter type: initial encounter Fracture type: closed Fracture morphology: transverse Fracture alignment: nondisplaced Qualified Code(s): S82.035A - Nondisplaced transverse fracture of left patella, initial encounter for closed fracture (2) Closed fracture of neck of right femur: QUALIFIERS: Encounter type: initial encounter Qualified Code(s): S72.001A - Fracture of unspecified part of neck of right femur, initial encounter for closed fracture (3) DELGADO (acute kidney injury): PLAN: Plan Right subcapital femoral neck fracture status post mechanical fall -Postop day 5 total hip arthroplasty on the right -Weightbearing as tolerated right lower extremity -Continue hip dislocation precautions -Postoperative dressing can be removed on 07/01/2024 -Continue subcu Lovenox for DVT prophylaxis for 30 days postoperatively -Continue as needed pain medication -Continue scheduled acetaminophen -Bowel regimen as ordered -2-week postoperative follow-up with Dr. Siu after discharge Left patellar fracture -Continue knee immobilizer and patient may be weightbearing as tolerated with knee immobilizer in place -Patient plans to follow-up as an outpatient with her can orthopedic surgeons for this -Continue ice and pain medication as noted above Opiate abuse -Patient is agreeable for opiate detox -Continue Subutex taper per COWS protocol--> patient has not yet required any Subutex -Supportive medication for withdrawal symptoms -180 consultation for assistance with discharge planning and posthospital care -Her pain management provider was notified of her noncompliance with pain management agreement and they did indicate she would no longer get prescriptions for narcotics from them--> she was notified of this Unintentional opiate overdose -Patient had been getting 5 to 10 mg of oxycodone here every 6 hours -Last evening patient was found obtunded and difficult to arouse -Known history of substance abuse -0.2 of Narcan given with immediate response -Patient did finally admit to taking supplemental Percocet 7.5 mg in addition to her narcotics here -She did admit to taking 3 tablets on top of her 10 mg tablets given--> 32.5 mg oxy taken -Patient agreeable to opiate detox Hypotension -Resolved -Highly suspect to her excessive narcotic use DELGADO on CKD stage IIIa secondary to prerenal azotemia -Baseline serum creatinine appears to run between 1.3 and 1.4 but was down to 1.07 on presentation -2.20 --> 2.7--> 2.47--> 2.11-->1.66 -Okay to stop IV fluids -Repeat lab in a.m. -Avoid nephrotoxins as able -Continue to hold lisinopril Hyponatremia -Resolved Essential hypertension -Blood pressures are trending up now that she is off home narcotics in combination with prescribed narcotics -If renal function continues improved we will restart lisinopril tomorrow Anemia -Stable -Repeat lab in a.m. DM-2 -P.o. intake has not been as high as typical so will reduce home insulin from 24 to 12 units for now and reassess tomorrow -Likely having decreased clearance of insulin as well due to DELGADO Diabetic neuropathy -Continue lower dose gabapentin until complete renal recovery COPD with ongoing tobacco abuse -Continue budesonide -Restart home inhalers at discharge -Continue scheduled DuoNebs -Strongly encourage patient to be compliant with I-S and Acapella -Now on room air Hyperlipidemia -Does not appear on her external fill history that she has been taking this -Will hold for now and have her follow-up as an outpatient Abnormal TSH -7.52 on presentation the patient is not on Synthroid -Free T4 is normal at 0.76 -Would not recommend levothyroxine at this point and recommend repeat outpatient TSH in 6 weeks DVT prophylaxis -Continue subcu Lovenox CODE STATUS Full code Charges/Coding Visit Charges Inpatient E&M: 08521 Subs Hosp L2
[2024-07-02] MEDS: cloNIDine HCl 0.1 MG Tablet PO (20:12)
[2024-07-02] MEDS: Atorvastatin Calcium 80 MG Tablet PO (20:12)
[2024-07-02] MEDS: MELATONIN 10 MG TABLET PO (20:14)
[2024-07-02 21:42] LABS: Bedside Glucose 231 mg/dL (74-106)
[2024-07-03 04:56] VITALS: BP 168/81; PULSE 60; RESP 16; TEMP 36.3; O2SAT 96
[2024-07-03 05:10] VITALS: BP 168/81; PULSE 60
[2024-07-03] MEDS: hydrALAZINE 20 MG/ML Vial 10 MG IV (05:10)
[2024-07-03] MEDS: 0.9% Saline Lock 10 ML Syringe IV (05:11)
[2024-07-03 05:41] LABS: Hematocrit 29.4 % (37-47); Hemoglobin 9.5 g/dL (12.0-15.0); Mean Corp Hgb Conc 32.3 g/dL (32-36); Mean Corpuscular Hgb 32.2 pg (27.0-32.0); Mean Corpuscular Volume 99.7 fL (81-99); Mean Platelet Vol. 10.3 fl (6.2-12.0); Platelet Count 276 K/mm3 (150-450); RBC Distribution Width CV 13.1 % (11.6-14.6); RBC Distribution Width SD 47.6 fl (35.1-43.9); Red Blood Count 2.95 M/mm3 (4.2-5.4); White Blood Count 8.5 K/mm3 (4.4-11.0)
[2024-07-03 06:16] LABS: Anion Gap 3 (5-15); BUN 37 mg/dL (7-18); Calcium,Total 8.9 mg/dL (8.5-10.1); Chloride 110 mmol/L (98-107); Creatinine, Serum 1.37 mg/dL (0.55-1.02); EST Glomerular Filtration Rate 42 mL/min (>60); Est Glom Filt Rate - Afr Amer 51 mL/min (>60); Estimated Creatinine Clearance 40.55 ml/min; Glucose 73 mg/dL (74-106); Potassium 4.4 mmol/L (3.5-5.1); Sodium Level 138 mmol/L (136-145)
[2024-07-03] MEDS: Gabapentin 100 MG Capsule 200 MG PO ×2 (06:41→14:00)
[2024-07-03] MEDS: Acetaminophen 500 MG Tablet 1000 MG PO ×2 (06:42→14:00)
[2024-07-03] MEDS: Insulin Lispro 100 UNIT/ML INSULN.PEN SC ×2 (06:43→12:01)
[2024-07-03] MEDS: Enoxaparin 30 MG/0.3 ML Syringe SC (06:43)
[2024-07-03 07:17] LABS: Bedside Glucose 205 mg/dL (74-106)
[2024-07-03 09:00] VITALS: BP 187/85; PULSE 64; RESP 16; TEMP 37.1; O2SAT 95
[2024-07-03 09:01] VITALS: BP 187/85; PULSE 64; RESP 16; TEMP 37.1; O2SAT 96
--- NOTE | 2024-07-03 10:41 | DS.PCM_ITS ---
Providers Date of Admission: 06/25/24 Date of Discharge: 07/03/24 Primary Care Physician: GIANCARLO Fields Consultations 06/25/24 23:12 Consult: Orthopedics Routine Consulting Provider: Laron Siu Reason for Consult: Hip fracture, ? tibial fx EMERGENT Consult: No MD Notified: Yes Date Notified: 06/25/24 Time Notified: 21:40 Method of Notification: ED Physician Initiated Reason For Visit: FALL RIGHT HIP FRACTURE LEFT TIBIAL FRACTURE Diagnosis Discharge Diagnosis (1) Left patella fracture: Status: Acute Code(s): S82.002A - Unspecified fracture of left patella, initial encounter for closed fracture Qualifiers: Encounter type: initial encounter Fracture type: closed Fracture morphology: transverse Fracture alignment: nondisplaced Qualified Code(s): S 82.035A - Nondisplaced transverse fracture of left patella, initial encounter for closed fracture (2) Closed fracture of neck of right femur: Status: Acute Code(s): S72.001A - Fracture of unspecified part of neck of right femur, initial encounter for closed fracture Qualifiers: Encounter type: initial encounter Qualified Code(s): S72.001A - Fracture of unspecified part of neck of right femur, initial encounter for closed fracture (3) DELGADO (acute kidney injury): Status: Acute Code(s): N17.9 - Acute kidney failure, unspecified Medications at Discharge Home Medications albuterol sulfate 90 mcg/actuation aerosol inhaler 2 puff inhalation Q6H PRN SOB 06/14/21 atorvastatin 80 mg tablet 80 mg PO QHS CHOLESTEROL 06/14/21 ipratropium 0.5 mg-albuterol 3 mg (2.5 mg base)/3 mL nebulization soln 3 ml inhalation 4X/DAY PRN sob 11/27/21 loratadine 10 mg tablet 10 mg PO DAILY allergies 11/27/21 lisinopril 40 mg tablet 40 mg PO DAILY 10/10/22 ondansetron 4 mg disintegrating tablet 4 mg PO Q8H PRN PRN Nausea #10 tabs 10/13/22 blood-glucose meter (OneTouch Verio Flex Meter) #1 ea 04/16/23 blood sugar diagnostic (OneTouch Verio test strips) #100 ea 08/11/23 flash glucose sensor (FreeStyle Sandra 14 Day Sensor kit) #2 ea 08/21/23 pen needle, diabetic 32 gauge x 5/32 (BD Ultra-Fine Sissy Pen Needle) #150 ea 11/13/23 gabapentin 800 mg tablet 800 mg PO TID 06/25/24 hydralazine 50 mg tablet 50 mg PO 4X/DAY blood pressure 06/25/24 hydrochlorothiazide 25 mg tablet 25 mg PO DAILY 06/25/24 acetaminophen 500 mg tablet 1,000 mg (2 x 500 mg) PO Q8 #0 tabs 07/03/24 albuterol sulfate 2.5 mg/3 mL (0.083 %) solution for nebulization 2.5 mg (3 mL) inhalation Q2H PRN PRN Dyspnea, wheezing #0 mL 07/03/24 enoxaparin 30 mg/0.3 mL subcutaneous syringe 40 mg (0.4 mL) subcut DAILY@0600 #3 mL 07/03/24 famotidine 20 mg tablet 20 mg PO DAILY #0 tabs 07/03/24 insulin glargine-yfgn 100 unit/mL (3 mL) subcutaneous pen 8 unit (0.08 mL) subcut QAM #15 mL 07/03/24 melatonin 10 mg sublingual tablet 10 mg PO QHS #0 tabs 07/03/24 nicotine 21 mg/24 hr daily transdermal patch 21 mg transdermal DAILY PRN PRN Nicotine Craving #0 ea 07/03/24 sennosides 8.6 mg-docusate sodium 50 mg tablet (Stimulant Laxative Plus) 2 tab PO BID #0 tabs 07/03/24 Hospital Course Operations total hip replacement (06/26/2024) Procedures - (Chest x-ray/hip and pelvic x-rays/left knee x-ray/lower extremity CT/renal ultrasound) Summary of Care Provided Minutes Spent on Discharge: 45 Hospital Course: Patient is a 58-year-old white female who presented to the emergency department at [facility] on 06/25/2024 due to intractable right hip pain and left knee pain after a mechanical fall. She had been consuming alcohol and fell after tripping and she hit her left knee as well as landing on her right hip. She had significant left knee pain and right hip pain after the fall and was brought to the emergency department. Patient denied any heavy alcohol use on a regular basis at this time of presentation. On admission vital signs showed temperature of 98.5, heart rate 82, respiratory rate was 18, blood pressure was 138/76 and pulse ox was 95% on room air. CBC on presentation was overtly unremarkable. Chemistry panel showed mild CKD with a creatinine of 1.14 which appears to be close to her baseline with review of previous labs from earlier this year giving her CKD stage IIIa. Electrolytes are otherwise unremarkable. Glucose was 184 and the patient is a known diabetic. Troponin was normal. BNP was not elevated. Patient does see pain management for chronic pain including joint pain and chronic abdominal pain. Patient has chronic abdominal pain in the epigastrium and states that she is following at [facility] with workup thus far unremarkable but has upcoming appointments. Her TSH was found to be slightly elevated 7.5 however her free T4 was normal at 0.76. CT of the lower extremity was performed after plain films and this showed fracture through the left patella on the left. Hip and pelvic x-ray showed subcapital to mid cervical right femoral neck fracture with varus angulation. Orthopedic surgery was consulted and she was evaluated by Dr. Siu on the medical floor after admission. Recommendations for her left knee are a straight leg immobilizer and weightbearing as tolerated with the immobilizer in place and outpatient follow-up. Patient indicated she wishes to follow-up in [place] with her previous orthopedic surgeons. With regards to her right hip she was taken to the OR on 06/26/2024 for a total hip arthroplasty. She had a complicated hospital course which was complicated by an unintentional drug overdose and DELGADO related to her substance issues. About 24 hours postoperatively her blood pressures were on the low side. Her antihypertensives at home were held and we were somewhat confused as to why her blood pressures were on the low side. Renal ultrasound was performed and unremarkable. She was treated with IV fluids which would intermittently help her pressure but then her pressure would drop again. FeNA was consistent with prerenal azotemia. On 06/30/2024 I was called by nursing due to decreased mental status by the patient. We discussed the current condition and she was given her last 10 mg dose of oxycodone at 3 PM. I was called at about 6:30 PM with a notification of her mental status alteration. Nursing evaluated the patient at the bedside and her pupils were pinpoint. Family had just been there. She was difficult to arouse so we gave her 0.2 mg of Narcan at which time she became arousable fairly quickly. She initially denied any other substance use however she finally admitted she took three 7.5 mg Percocet in addition to the 10 mg Percocet she was given at 3 PM. She reported the family brought it in and she had no other medications. Her room was searched at that time and we were unable to find anything however the following day nursing was moving her close and a bottle of oxycodone fell out of her close. The bottle was written on 06/25/2024 and filled on 06/26/2024 for 120 tablets. There were 58 tablets left in the bottle at the time medications were found. I addressed both issues with the patient and we discussed the importance of honesty in the physician-patient relationship and she did apologize. I did tell her that I would have to notify her pain management doctor which we did and she has been fired from the practice. The patient was notified by the practice. I offered detox which the patient desired. She was placed on Subutex per Protocol and as needed medications for symptom management and pain was managed with only Tylenol. There is a reported allergy to Tylenol however it is vomiting and patient did seem to tolerate Percocet without any vomiting. She will continue Tylenol as needed at the time of discharge for pain management and opiates are to be avoided. She was given resources for addiction addiction follow-up after discharge from rehab. She never did require any Subutex for detox. She requested that her Percocet from her pain management doctor that she had in the hospital was destroyed prior to discharge. She was evaluated by physical and Occupational Therapy and they did feel that she would need ongoing therapy at the time of discharge and the patient reluctantly agreed. She was accepted by [facility] and was discharged there when pre-CERT was obtained on 07/03/2024. She is to continue weightbearing as tolerated on bilateral lower extremities as long as her left knee immobilizer is in place and plan for her left knee is nonoperative management. She will remain on Lovenox 40 mg daily for the next 30 days and then may discontinue. Adhesive bandages can be removed at this time and she should avoid bending her left knee due to the patella fracture. She is to follow-up with Dr. Siu's office in a week and a half for postoperative follow-up. She was discharged to the skilled facility in stable condition on 07/03/2024. Discharge diagnoses: Right subcapital femoral neck fracture status post mechanical fall Right total hip arthroplasty-postop day 6 Left patellar fracture Opiate abuse with suspected opiate use disorder Unintentional opiate overdose Hypotension-resolved DELGADO on CKD stage IIIa Hyponatremia-resolved Essential hypertension Anemia secondary to fracture and surgical intervention DM-2 Diabetic neuropathy COPD with ongoing tobacco abuse Hyperlipidemia Abnormal TSH Physical Exam Narrative Const alert, oriented x3, no apparent distress, no limitations and well nourished; Negative for average body habitus or healthy appearing Constitutional Narrative: Obese, middle-aged, white female, ambulating in the hallway with a walker and physical therapy at bedside, appears comfortable, nontoxic General Appearance: cooperative, comfortable, well kempt and well developed Exam Limitations: no limitations HEENT normocephalic, head/scalp atraumatic, hearing grossly normal bilaterally and moist oral mucous membranes HEENT Narrative: Mallampati 3, no thrush Eyes PERRL, EOMs intact bilaterally and conjunctivae normal Eyes Narrative: No scleral icterus, mild conjunctiva pallor bilaterally Neck supple Neck Narrative: Trachea midline, no thyroid enlargement, neck is short and thick Resp normal respiratory effort, no retractions, no use of accessory muscles and clear to auscultation bilaterally Resp Narrative: Diminished but clear Auscultation: Negative for rales, rhonchi or wheezes Cardio regular rate, regular rhythm, S1 normal heart sound, S2 normal heart sound, no murmurs, no rub, no gallops and no clicks GI normal to inspection, nondistended, normoactive bowel sounds and soft to palpation GI Narrative: Patient complains of epigastric pain with palpation but complaints subside when distracted Extremity no clubbing, cyanosis or edema Extremity Narrative: Pedal and radial pulses are 2+, left lower extremity knee immobilizer in place, AMEE hose bilateral lower extremities, patient ambulating with a standard walker and therapy services at her side Skin no jaundice, no petechiae and no mottling Neuro oriented x3 and no focal motor deficits Speech: speech normal Psych cooperative Psych Narrative: Much more calm today Appearance: appropriate Weight / BMI Weight Weight: 77 kg Body Mass Index (BMI) 33.1 ABG / Lab / Microbiology Data 07/03/24 05:31 07/03/24 05:31 Laboratory: Laboratory Results - last 24 hr 07/02/24 11:01: POC Glucose 162 H 07/02/24 16:27: POC Glucose 170 H 07/02/24 20:16: POC Glucose 231 H 07/03/24 05:31: WBC 8.5, RBC 2.95 L, Hgb 9.5 L, Hct 29.4 L, MCV 99.7 H, MCH 32.2 H, MCHC 32.3, RDW Std Deviation 47.6 H, RDW Coeff of Yudelka 13.1, Plt Count 276, MPV 10.3, Sodium 138, Potassium 4.4, Chloride 110 H, Carbon Dioxide 25.0, Anion Gap 3 L, BUN 37 H, Creatinine 1.37 H, Estim Creat Clear Calc 40.55, Est GFR (MDRD) Af Amer 51 L, Est GFR (MDRD) Non-Af 42 L, BUN/Creatinine Ratio 27.0 H, G lucose 73 L, Calcium 8.9 07/03/24 06:40: POC Glucose 205 H D/C Instructions Discharge Diet: Low fat / Low cholesterol and 1800 Calorie Control Diet Meaningful Use Info Meaningful Use Meaningful Use Diagnoses (Choose all that apply): None applicable Ischemic Stroke Statin Dosing Therapy Reference: STATIN DOSE THERAPY REFERENCE: * Patients > 75 years receive moderate or high dose statin therapy. * Patients 75 years or YOUNGER should receive HIGH intensity statin dose unless contraindicated. You will be required to document reason for non-treatment if statin daily dose does not meet guidelines. HIGH DOSE STATIN THERAPY DAILY Atorvastatin > than or = to 40 mg Rosuvastatin > than or = to 20 mg Amlodipine + Atorvastatin > than or = to 2.5/40 mg Ezetimibe + Simvastatin 10/80 mg Simvastatin 80mg Discharge Plan Admission Admit Date/Time: 06/25/24 21:35 Primary Reason for Your Visit: Right hip pain/left knee pain status post mechanical fall Attending Provider: Keily Smith Primary Care Provider: Araceli Ramos NP Consulting Providers: Flor Parks; Laron Siu; Dory Cid Instructions Additional Instructions / Restrictions: 1. Please follow-up with addiction resources given to you after discharge from rehab Discharge Orders/Prescriptions Prescriptions: New albuterol sulfate 2.5 mg /3 mL (0.083 %) Solution For Nebulization 2.5 mg inhalation Q2H PRN PRN (Reason: Dyspnea, wheezing) Qty: 0 0RF acetaminophen 500 mg Tablet 1,000 mg PO Q8 Qty: 0 0RF enoxaparin 30 mg/0.3 mL Syringe 40 mg subcut DAILY@0600 Qty: 3 0RF Rx Instructions: Patient is to be on Lovenox subcu for 30 days after surgery famotidine 20 mg Tablet 20 mg PO DAILY Qty: 0 0RF nicotine 21 mg/24 hr Patch 24 Hour 21 mg transdermal DAILY PRN PRN (Reason: Nicotine Craving) Qty: 0 0RF melatonin 10 mg Tablet, Sublingual 10 mg PO QHS Qty: 0 0RF sennosides-docusate sodium [Stimulant Laxative Plus] 8.6-50 mg Tablet 2 tab PO BID Qty: 0 0RF insulin glargine-yfgn 100 unit/mL (3 mL) Insulin Pen 8 unit subcut QAM Qty: 15 0RF Rx Instructions: may need to uptitrate as po intake improves, had been on 24u prior to acute care hospital admission Continued atorvastatin 80 mg tablet 80 mg PO QHS lisinopril 40 mg tablet 40 mg PO DAILY (DME) FreeStyle Sandra 14 Day Sensor Kit See Rx Instructions .Route Qty: 2 5RF Rx Instructions: 1 sensor q 14 days ipratropium-albuterol 0.5 mg-3 mg(2.5 mg base)/3 mL solution for nebulization 3 ml inhalation 4X/DAY PRN (Reason: sob) loratadine 10 mg tablet 10 mg PO DAILY ondansetron 4 mg tablet,disintegrating 4 mg PO Q8H PRN PRN (Reason: Nausea) Qty: 10 0RF gabapentin 800 mg tablet 800 mg PO TID hydralazine 50 mg tablet 50 mg PO 4X/DAY hydrochlorothiazide 25 mg tablet 25 mg PO DAILY (DME) blood-glucose meter [OneTouch Verio Flex meter] [facility] See Rx Instructions .Route Qty: 1 0RF Rx Instructions: As directed (DME) OneTouch Verio test strips Strip See Rx Instructions .Route Qty: 100 5RF Rx Instructions: 4x/day (DME) pen needle, diabetic [BD Ultra-Fine Sissy Pen Needle] 32 gauge x 5/32 needle See Rx Instructions .ROUTE .MEDSUPPLY Qty: 150 3RF Rx Instructions: 5 times daily Held albuterol sulfate 90 mcg/actuation HFA aerosol inhaler 2 puff inhalation Q6H PRN (Reason: SOB) Hold Instructions: Until discharge from rehab Discontinued acetaminophen 500 mg tablet 1,000 mg PO Q8H PRN (Reason: Pain) oxycodone-acetaminophen [Percocet] 5-325 mg tablet 1 tab PO Q6H 3 Days Qty: 12 0RF insulin glargine [Lantus Solostar U-100 Insulin] 100 unit/mL (3 mL) insulin pen 24 unit subcut QAM Qty: 18 0RF Referrals / Follow Up: Laron Siu MD [Med Staff - Active Staff] - See Referral Note (Patient to follow-up in 1.5 weeks) Araceli Ramos PURCHASING AND FISCAL CLERK, PURCHASING AND FISCAL CLERK-C [Primary Care Provider] - Disposition Disposition (needs filled in before D/C Order can be placed): Long-Term Facility Charges/Coding Visit Charges Inpatient E&M: 98330 SNF Disch >30 Min
[2024-07-03] MEDS: Famotidine 20 MG Tablet PO (10:59)
[2024-07-03] MEDS: Loratadine 10 MG Tablet PO (11:00)
[2024-07-03] MEDS: Senna/Docusate Sodium 1 Tablet 2 TABLET PO (11:00)
[2024-07-03] MEDS: Insulin Glargine-YFGN 100 UNIT/ML Pen 8 UNIT SC (11:00)
--- NOTE | 2024-07-03 11:10 | TREXTCAR_ITS ---
Diet Diet Order/Speech Therapy: 06/29/24 14:20 Carb [Diet: Carbohydrate Controlled] Routine Orders/Code Status Suppository Frequency: Daily PRN O2 Frequency: PRN Keep PO Greater than or Equal to (%): 89 Routine Lab Work: CBC (1 week) and BMP (1 week) Code Status: Full Code Wound(s) RIGHT HIP: Wound Type: Surgical Incision Suggestions for Active Care Change Position every (hours): 2 Hours to sit in a chair: 3 Times a day to sit in chair: 2 Therapies Weight Bearing: Weight bearing as tolerated (Must have left straight leg brace on to be weightbearing as tolerated) Extremity Affected:: Bilateral Lower Physical Therapy: Eval and Treat Occupational Therapy: Eval and Treat Problem/Diagnosis (1) Left patella fracture: Status: Acute Code(s): S82.002A - Unspecified fracture of left patella, initial encounter for closed fracture (2) Closed fracture of neck of right femur: Status: Acute Code(s): S72.001A - Fracture of unspecified part of neck of right femur, initial encounter for closed fracture (3) DELGADO (acute kidney injury): Status: Acute Code(s): N17.9 - Acute kidney failure, unspecified Allergies/Procedures Done in Hospital Allergies duloxetine (From Cymbalta) Allergy (Verified 06/18/24 13:35) Unknown SWELLING pregabalin (From Lyrica) Allergy (Verified 06/18/24 13:35) Unknown SWELLING Penicillins Adverse Reaction (Mild, Verified 06/18/24 13:35) leaves a bad taste in her mouth. No issues with taking amoxicillin in the past. acetaminophen Adverse Reaction (Verified 06/18/24 13:35) Vomiting aspirin Adverse Reaction (Verified 06/18/24 13:35) Upset Stomach NSAIDS (Non-Steroidal Anti-Inflamma Adverse Reaction (Verified 06/18/24 13:35) Upset Stomach Procedures: EKG and - (Renal ultrasound/CT left lower extremity/hip and pelvic x-rays/knee x-ray/chest x-ray) Type of Care/Length of Stay Estimated LOS: Convalescent Care Less Than 30 days Type of Care Needed: Skilled Rehab Potential: Good Prognosis: Good Additional Orders/Day of Discharge Additional Orders: Would recommend avoiding opiates due to unintentional overdose while in acute care hospital Day of Discharge: 07/03/24 Dietary and Speech Recommendations Dietitian Recommendations/Changes: Continue 1800CCD diet to manage medical conditions. Will remove cardiac restriction. Follow Up Care Please Follow Up With: Laron Siu MD When: 1.5 weeks Discharge Plan Admission Admit Date/Time: 06/25/24 21:35 Primary Reason for Your Visit: Right hip pain/left knee pain status post mechanical fall Attending Provider: Keily Smith Primary Care Provider: Araceli Ramos NP Consulting Providers: Flor Parks; Laron Siu; Dory Cid Instructions Additional Instructions / Restrictions: 1. Please follow-up with addiction resources given to you after discharge from rehab Discharge Orders/Prescriptions Prescriptions: New albuterol sulfate 2.5 mg /3 mL (0.083 %) Solution For Nebulization 2.5 mg inhalation Q2H PRN PRN (Reason: Dyspnea, wheezing) Qty: 0 0RF acetaminophen 500 mg Tablet 1,000 mg PO Q8 Qty: 0 0RF enoxaparin 30 mg/0.3 mL Syringe 40 mg subcut DAILY@0600 Qty: 3 0RF Rx Instructions: Patient is to be on Lovenox subcu for 30 days after surgery famotidine 20 mg Tablet 20 mg PO DAILY Qty: 0 0RF nicotine 21 mg/24 hr Patch 24 Hour 21 mg transdermal DAILY PRN PRN (Reason: Nicotine Craving) Qty: 0 0RF melatonin 10 mg Tablet, Sublingual 10 mg PO QHS Qty: 0 0RF sennosides-docusate sodium [Stimulant Laxative Plus] 8.6-50 mg Tablet 2 tab PO BID Qty: 0 0RF insulin glargine-yfgn 100 unit/mL (3 mL) Insulin Pen 8 unit subcut QAM Qty: 15 0RF Rx Instructions: may need to uptitrate as po intake improves, had been on 24u prior to acute care hospital admission Continued atorvastatin 80 mg tablet 80 mg PO QHS lisinopril 40 mg tablet 40 mg PO DAILY (DME) FreeStyle Sandra 14 Day Sensor Kit See Rx Instructions .Route Qty: 2 5RF Rx Instructions: 1 sensor q 14 days ipratropium-albuterol 0.5 mg-3 mg(2.5 mg base)/3 mL solution for nebulization 3 ml inhalation 4X/DAY PRN (Reason: sob) loratadine 10 mg tablet 10 mg PO DAILY ondansetron 4 mg tablet,disintegrating 4 mg PO Q8H PRN PRN (Reason: Nausea) Qty: 10 0RF gabapentin 800 mg tablet 800 mg PO TID hydralazine 50 mg tablet 50 mg PO 4X/DAY hydrochlorothiazide 25 mg tablet 25 mg PO DAILY (DME) blood-glucose meter [OneTouch Verio Flex meter] Misc See Rx Instructions .Route Qty: 1 0RF Rx Instructions: As directed (DME) OneTouch Verio test strips Strip See Rx Instructions .Route Qty: 100 5RF Rx Instructions: 4x/day (DME) pen needle, diabetic [BD Ultra-Fine Sissy Pen Needle] 32 gauge x 5/32 needle See Rx Instructions .ROUTE .MEDSUPPLY Qty: 150 3RF Rx Instructions: 5 times daily Held albuterol sulfate 90 mcg/actuation HFA aerosol inhaler 2 puff inhalation Q6H PRN (Reason: SOB) Hold Instructions: Until discharge from rehab Discontinued acetaminophen 500 mg tablet 1,000 mg PO Q8H PRN (Reason: Pain) oxycodone-acetaminophen [Percocet] 5-325 mg tablet 1 tab PO Q6H 3 Days Qty: 12 0RF insulin glargine [Lantus Solostar U-100 Insulin] 100 unit/mL (3 mL) insulin pen 24 unit subcut QAM Qty: 18 0RF Referrals / Follow Up: Laron Siu MD [Med Staff - Active Staff] - See Referral Note (Patient to follow-up in 1.5 weeks) Araceli Ramos NP, POWER SYSTEM OPERATOR-C [Primary Care Provider] - Disposition Disposition (needs filled in before D/C Order can be placed): [facility] (1) Left patella fracture Qualifiers: Encounter type: initial encounter Fracture type: closed Fracture morphology: transverse Fracture alignment: nondisplaced Qualified Code(s): S82.035A - Nondisplaced transverse fracture of left patella, initial encounter for closed fracture (2) Closed fracture of neck of right femur Qualifiers: Encounter type: initial encounter Qualified Code(s): S72.001A - Fracture of unspecified part of neck of right femur, initial encounter for closed fracture
[2024-07-03 11:50] LABS: Bedside Glucose 243 mg/dL (74-106)
--- NOTE | 2024-07-03 12:55 | ADDICTION ---
Addiction therapist met with pt. She reports that she does not have an issue with substance use. She reports that she only overuses her medications when she has them. Pt reports she doesn't even understand why you are in here.
[2024-07-03 14:22] VITALS: BP 195/83; PULSE 67; RESP 18; TEMP 36.2; O2SAT 96
[2024-07-03 14:27] VITALS: BP 195/83; PULSE 67; RESP 18; TEMP 36.2; O2SAT 96
== END 2024-07-03 15:13 | disposition skilled nursing facility (03) | DRG 324 ==
LOC: ED 21:12 → MS3 22:22
PROVIDERS: Orthopaedic Surgery; Student in an Organized Health Care Education/Training Program; Admitting Provider Family Medicine; Emergency Provider Emergency Medicine; PCP Internal Medicine; Visit Provider Internal Medicine
PROC: 0SR90JZ Replacement of Right Hip Joint with Synthetic Substitute, Open Approach (ICD-10-PCS; CPT 27130; principal; 2024-06-26 11:15)
DX: S82.035A Nondisplaced transverse fracture of left patella, initial encounter for closed fracture (principal); N17.9 Acute kidney failure, unspecified; E87.1 Hypo-osmolality and hyponatremia; E11.40 Type 2 diabetes mellitus with diabetic neuropathy, unspecified; D64.9 Anemia, unspecified; E11.22 Type 2 diabetes mellitus with diabetic chronic kidney disease; J44.9 Chronic obstructive pulmonary disease, unspecified; N18.32 Chronic kidney disease, stage 3b; F11.23 Opioid dependence with withdrawal; E89.0 Postprocedural hypothyroidism; I12.9 Hypertensive chronic kidney disease with stage 1 through stage 4 chronic kidney disease, or unspecified chronic kidney disease; E66.9 Obesity, unspecified; G47.33 Obstructive sleep apnea (adult) (pediatric); I25.10 Atherosclerotic heart disease of native coronary artery without angina pectoris; F17.210 Nicotine dependence, cigarettes, uncomplicated; E78.5 Hyperlipidemia, unspecified; J30.9 Allergic rhinitis, unspecified; K21.9 Gastro-esophageal reflux disease without esophagitis; Z79.4 Long term (current) use of insulin; E87.5 Hyperkalemia; I95.9 Hypotension, unspecified; S80.02XA Contusion of left knee, initial encounter; W01.10XA Fall on same level from slipping, tripping and stumbling with subsequent striking against unspecified object, initial encounter; T40.601A Poisoning by unspecified narcotics, accidental (unintentional), initial encounter; Z79.1 Long term (current) use of non-steroidal anti-inflammatories (NSAID); Z90.710 Acquired absence of both cervix and uterus; Z79.01 Long term (current) use of anticoagulants; Z79.51 Long term (current) use of inhaled steroids; G89.29 Other chronic pain; R10.9 Unspecified abdominal pain; R94.6 Abnormal results of thyroid function studies
CPT/HCPCS: 36415; 71045; 73502; 73560; 73700; 76770; 80048; 80053; 81001; 82570; 82962; 83735; 83880; 84100; 84300; 84439; 84443; 84484; 85025; 85027; 86850; 86900; 86901; 88305; 88311; 93005; 93306; 94640; 94668; 94762; 97116; 97162; 97166; 97530; 97535; 99285; 99406; C1713; C1776; J7050; J7120; Q9957; A4216; J2310; J2405

== ENCOUNTER 2025-04-13 14:00 | Outpatient (RCR) | payer MEDICAID, SELFPAY ==
--- NOTE | 2025-02-23 09:14 | HP.PTEVAL ---
Patient's Visit Information Visit Information Visit Information: MILY CHILDRESS is a 59 year old F referred to Physical Therapy by Dr. Navi An MD with a diagnosis of painful orthopeedic hardware. Date of Evaluation: 02/23/25 Physical Therapist: Oni Vuong, DPT, OCS, CSCS Visit Plan Frequency: 3x /Week Duration: 4-6 Weeks Plan: 3x/week for 4-6 weeks for aquatic therapy to work on L knee ROM, R hip ROM, strength of core and LE, stretch HS and quads. Progress to I pool or home program. IE reviewed need for walkeer based on balance and safety. Started intro to pool Will have pain managemnt in March. Subjective Subjective: Broke L femur walking and slipped on ice a year ago. Last june broke R hip and had GILL. Here now because she is weak and painful, has put off therapy for a number of months without reason. Using wh walker to get around all the time then not needed in small apartment. Two steps with railing to enter and are painful sometimes. Toting laundry and groceries up can hurt. Sleep is not great as pain in L knee and femur still keep here up. 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 Not employed. Hobbies: dog and gardening and small place with garden, Lets dog out on chain. 300 feet or so to dumpster adn it wears her out. Pain L femur: Pain Intensity (Out of 10): 7 Pain Intensity Range: 0 and 8 Comment: worse with activity or sitting too much. R hip: Pain Intensity (Out of 10): 0 Pain Intensity Range: 0 and 2 Comment: activity Objective Objective: R GILL posterior,: painful in groin to move, 105 AROM flexion, 38 Er, 5 IR, 0 ext 20 abd. L hardware in femur. -17 knee ext limited by pain only, patella stiff, 80 knee flexion limited by pain , hip to 90+ flexion 25 abd, 40 ER, 10 IR, only to -5 of ext supine but can get to neutral off table, knee ROM limits her here. weakness is big problem mostly due to painful to contract boht legs L >R. knee ext R 3- and L 3+, knee flexion 3+ B, hip flexion 3 B, abd 3+ B, ext 3 B. ankles are 4 B with good ROM. reflexes 1/3 patella and achilles B. sensation LE WNL to gross light touch. Walks with wh walker mod I slow and short R step length. Can go 10-15 feeet without it but hesitant and painful. trasnfer table and chair are I today, Very careful as to positioning hips and legs. stand balance romberg eo 30, ec 30 with much sway. Able to move head while walking with walker but not safe without AD. Balance/Special Test Scores Lower Extremity Functional Score: 11 Goals Goal 1:: sleep 5 hours without waking due to pain Goal Time Frame: 4-6 Weeks Goal 2:: Pain inn B LE 5/10 at worst and 50% improved. Goal Time Frame: 4-6 Weeks Goal 3:: Walk 50 feeet without AD I without cramping Goal Time Frame: 4-6 Weeks Goal 4:: I appropriate homee or pool based ex to limit future prob lems Goal Time Frame: 4-6 Weeks Goal 5:: LEFS score 30 Goal Time Frame: 4-6 Weeks Rehabilitation Potential Physical Therapy Diagnosis: pain, stiffness, weakness limiting comfortable funciton Rehabilitation Potential: Questionable Anticipated Interventions Patient/Client Instruction: Educate patient on: Condition and Plan of Care For the Purpose of:: To decrease pain, To increase ROM, To improve nutrient delivery to tissue, To improve muscle performance and motor function, To increase tolerance to activity/condition/position, To improve ability of physical actions for home/community/work/leisure and To improve gait and locomotor functions Therapeutic Exercise to Include: Strength training, Balance training, Flexibilty training, Gait and locomotor training, In an aquatic setting, Passive ROM and Active ROM For the Purpose of:: To decrease pain, To increase ROM, To improve nutrient delivery to tissue, To improve muscle performance and motor function and To increase tolerance to activity/condition/position Text: Thank you for the opportunity to evaluate your patient. For Medicare and Medicare HMO plans, please review the plan of care and approve it. It will need to be FAXED BACK to us at [phone] for Medicare purposes. For Medicare only, by signing this I certify the plan of care. Please let me know if there are questions or concerns regarding this plan of care. Physician Signature: Date:
--- NOTE | 2025-06-23 16:36 | HP.PTDCNRP_ITS ---
Patient Information Patient Information: MILY CHILDRESS was seen in my office for initial evaluation on 02/23/25. The following Plan of Care was established for this patient: POC Established Initial Frequency: 3x /Week Initial Duration: 4-6 Weeks Anticipated Interventions Patient/Client Instruction: Educate patient on: Condition and Plan of Care For the Purpose of:: To decrease pain, To increase ROM, To improve nutrient delivery to tissue, To improve muscle performance and motor function, To increase tolerance to activity/condition/position, To improve ability of phy sical actions for home/community/work/leisure and To improve gait and locomotor functions Therapeutic Exercise to Include: Strength training, Balance training, Flexibilty training, Gait and locomotor training, In an aquatic setting, Passive ROM and Active ROM For the Purpose of:: To decrease pain, To increase ROM, To improve nutrient delivery to tissue, To improve muscle performance and motor function and To increase tolerance to activity/condition/position Last Seen Last Seen: This patient was last seen in our office 04/18/25. Pertinent comments regarding their Physical therapy will appear below: Pt seen for 5 visits of POC and then did not attend any further visits. at this point, it has tiff over 2 months and I will disocntinue due to nonattendance. At this point I will be discontinuing this patient from physical therapy. I would be happy to see this patient again in the future if found appropriate by the physician. Thank you! Oni Vuong, DPT, OCS, CSCS Balance/Gait/Functional tests Balance/Special Test Scores Lower Extremity Functional Score: 11
== END 2025-04-13 19:00 | disposition home or self-care (01) ==
LOC: PT 14:00
PROVIDERS: PCP Internal Medicine; Referring Provider Orthopaedic Surgery Adult Reconstructive Orthopaedic Surgery; Visit Provider Orthopaedic Surgery Adult Reconstructive Orthopaedic Surgery
DX: T84.84XD Pain due to internal orthopedic prosthetic devices, implants and grafts, subsequent encounter (principal); M70.60 Trochanteric bursitis, unspecified hip
CPT/HCPCS: 97113; 97162; 97530

== ENCOUNTER 2025-06-02 13:08 | Emergency (ER) | payer MEDICAID, SELFPAY ==
[2025-06-02 13:10] VITALS: BP 180/72; PULSE 85; RESP 16; TEMP 37.1; O2SAT 98; BMI 27.4
--- NOTE | 2025-06-02 13:53 | EKG12_ITS ---
Test Reason : Blood Pressure : */* mmHG Vent. Rate : 75 BPM Atrial Rate : 75 BPM P-R Int : 190 ms QRS Dur : 70 ms QT Int : 378 ms P-R-T Axes : -2 -37 3 degrees QTcB Int : 422 ms Normal sinus rhythm Left axis deviation Inferior infarct (cited on or before 07-Apr-2023) Abnormal ECG Confirmed by EZIO CRABTREE, AMY ([id number]), editor newspaper STEFFI JAVED ([id number]) on 06/03/2025 10:58:16 AM Referred By: Confirmed By: AMY HOLGUIN MD
[2025-06-02] MEDS: 0.9% Normal Saline (1000mL) 1,000 ML 999 ML IV (14:09)
[2025-06-02 14:11] LABS: Mucous, Urine 0 SEEN /hpf (<or=2+); Red Blood Cells-Urine 0 SEEN /hpf (0-5)
[2025-06-02 14:19] LABS: Hematocrit 39.1 % (37-47); Hemoglobin 13.0 g/dL (12.0-15.0); Immature Granulocytes Count 0.050 X10^3/uL (0.0-0.0); Mean Corp Hgb Conc 33.2 g/dL (32-36); Mean Corpuscular Volume 98.7 fL (81-99); Mean Platelet Vol. 10.5 fl (6.2-12.0); NRBC Flagged by Analyzer 0 % (0-5); Platelet Count 244 K/mm3 (150-450); RBC Distribution Width CV 14.8 % (11.6-14.6); RBC Distribution Width SD 54.0 fl (35.1-43.9); Red Blood Count 3.96 M/mm3 (4.2-5.4); White Blood Count 11.4 K/mm3 (4.4-11.0)
[2025-06-02 14:34] LABS: Color, Urine Yellow (Yellow); Glucose, Dipstick 1000 mg/dl (Normal); Ketone-Dipstick Negative (Negative); Leukocyte Esterase-Dipstick 25 /ul (Negative); Nitrite-Dipstick Negative (Negative); Occult Blood-Urine Negative /ul (Negative); Protein-Dipstick 100 mg/dl (Negative); Specific Gravity, Urine 1.015 (1.002-1.030); Urine Bilirubin Dipstick Negative (Negative)
[2025-06-02 14:40] LABS: Squamous Epithelial Cells - UA 5-10 SEEN /hpf (5-10)
--- NOTE | 2025-06-02 14:50 | EX.ED.DYSGE1 ---
HPI <Dr. Dia Roberts DO - Last Filed: 06/03/25 07:16> History of Present Illness Chief Complaint: Abd Pain Informant: patient Narrative Narrative: Patient is a 59-year-old female with history of diabetes mellitus, GERD, gastroparesis, COPD and history of stomach ulcers presenting with worsening epigastric abdominal pain. States it woke her up at 2 AM. She states that radiates to her back. Has had nausea and vomiting with no bleeding. States her stomach feels tingly. She notes she did develop diarrhea yesterday and started taking Pepto-Bismol a couple days ago because she is been having some abdominal discomfort. She notes that her stools been darker because of the Pepto-Bismol. She is her symptoms are worse with eating. She states she has had evaluation through [facility] and also saw vascular surgery as they thought it could be related however ultimately she was told that she did not need any vascular surgery. Patient is kind of confused as she was also told that she did not have gastroparesis then. She denies any medication or diet changes. No other complaints or concerns reported at this time. No fever chill PFSH <Dr. Dia Roberts DO - Last Filed: 06/03/25 07:16> PFSH Medical History Closed fracture of neck of right femur Alcohol use Diabetes Post-menopausal Renal disease GERD (gastroesophageal reflux disease) Back pain due to injury Back pain Osteomyelitis Spinal fusion failure CPAP (continuous positive airway pressure) dependence Sleep apnea Lumbar stenosis Wears glasses Depression Anxiety Thyroid disease Insulin dependent diabetes mellitus Walker as ambulation aid Arthritis History of renal disease High cholesterol Back pain Injury of head and neck Syncope Dietary restriction Gastric reflux Smoker COPD (chronic obstructive pulmonary disease) Shortness of breath on exertion History of edema History of pain when walking History of echocardiogram History of stress test Cardiology follow-up encounter Hypertension Obesity Coronary artery calcification seen on CAT scan Type 2 diabetes mellitus Strain of muscle, fascia and tendon of pelvis, initial encounter Strain of unspecified muscles, fascia and tendons at thigh level, right thigh, initial encounter Strain of right hip and thigh Strain of right inguinal region Chronic neck and back pain Difficulty balancing Asthma Knee pain History of stomach ulcers Shoulder pain History of arthritis Home Medications ?Medication ?Instructions ?Recorded ?Last Taken ?Type albuterol sulfate 90 mcg/actuation 2 puff inhalation Q6H PRN SOB 06/14/21 06/14/22 History aerosol inhaler Held on 07/03/24. Instructions: Until discharge from rehab atorvastatin 80 mg tablet 80 mg PO QHS CHOLESTEROL 06/14/21 06/13/22 History ipratropium 0.5 mg-albuterol 3 mg 3 ml inhalation 4X/DAY PRN sob 11/27/21 11/25/21 History (2.5 mg base)/3 mL nebulization soln loratadine 10 mg tablet 10 mg PO DAILY allergies 11/27/21 02/21/22 History lisinopril 40 mg tablet 40 mg PO DAILY 10/10/22 Unknown History ondansetron 4 mg disintegrating 4 mg PO Q8H PRN PRN Nausea #10 tabs 10/13/22 Unknown Rx tablet blood-glucose meter (OneTouch #1 ea 04/16/23 Unknown Rx Verio Flex Meter) blood sugar diagnostic (OneTouch #100 ea 08/11/23 Unknown Rx Verio test strips) flash glucose sensor (FreeStyle #2 ea 08/21/23 Unknown Rx Sandra 14 Day Sensor kit) pen needle, diabetic 32 gauge x #150 ea 11/13/23 Unknown Rx 5/32 (BD Ultra-Fine Sissy Pen Needle) gabapentin 800 mg tablet 800 mg PO TID 06/25/24 Unknown History hydralazine 50 mg tablet 50 mg PO 4X/DAY blood pressure 06/25/24 Unknown History hydrochlorothiazide 25 mg tablet 25 mg PO DAILY 06/25/24 Unknown History acetaminophen 500 mg tablet 1,000 mg (2 x 500 mg) PO Q8 #0 tabs 07/03/24 Unknown Rx albuterol sulfate 2.5 mg/3 mL 2.5 mg (3 mL) inhalation Q2H PRN 07/03/24 Unknown Rx (0.083 %) solution for nebulization PRN Dyspnea, wheezing #0 mL famotidine 20 mg tablet 20 mg PO DAILY #0 tabs 07/03/24 Unknown Rx insulin glargine-yfgn 100 unit/mL 8 unit (0.08 mL) subcut QAM #15 mL 07/03/24 Unknown Rx (3 mL) subcutaneous pen melatonin 10 mg sublingual tablet 10 mg PO QHS #0 tabs 07/03/24 Unknown Rx nicotine 21 mg/24 hr daily 21 mg transdermal DAILY PRN PRN 07/03/24 Unknown Rx transdermal patch Nicotine Craving #0 ea sennosides 8.6 mg-docusate sodium 2 tab PO BID #0 tabs 07/03/24 Unknown Rx 50 mg tablet (Stimulant Laxative Plus) pantoprazole 40 mg tablet,delayed 40 mg PO DAILY #30 tabs 06/02/25 Unknown Rx release (Protonix) Allergy/AdvReac Type Severity Reaction Status Date / Time duloxetine (From Cymbalta) Allergy Unknown Verified 06/02/25 13:13 pregabalin (From Lyrica) Allergy Unknown Verified 06/02/25 13:13 Penicillins AdvReac Mild leaves a Verified 06/02/25 13:13 bad taste in her mouth. acetaminophen AdvReac Vomiting Verified 06/02/25 13:13 aspirin AdvReac Upset Verified 06/02/25 13:13 Stomach NSAIDS (Non-Steroidal AdvReac Upset Verified 06/02/25 13:13 Anti-Inflamma Stomach Family History Father Cancer Unclear type. Mother Lung cancer Concurrent tobacco use history. Surgical History S/P hysterectomy History of open reduction and internal fixation (ORIF) procedure History of carpal tunnel release History of partial thyroidectomy History of ankle surgery History of History of hysterectomy Social History household members: none Smoking Status: Current every day smoker tobacco type: cigarettes alcohol intake: never substance use type: does not use ROS <Dr. Dia Roberts DO - Last Filed: 06/03/25 07:16> ROS ED Constitutional Constitutional ED: Denies chills or fever(s) Cardiovascular Cardiovascular: Denies chest pain Respiratory/Chest Respiratory/Chest: Denies cough Gastrointestinal Gastrointestinal: Reports abdominal pain, diarrhea, nausea and vomiting; Denies melena Musculoskeletal Musculoskeletal: Denies arthralgias or myalgias Integumentary Denies rash Neurologic Neurologic: Denies paresthesias or weakness Hematologic/Lymphatic Hematologic/Lymphatic: Denies easy bleeding or easy bruising EXAM <Dr. Dia Roberts DO - Last Filed: 06/03/25 07:16> Physical Exam Const Vital Signs: 06/02/25 13:10 06/02/25 15:09 06/02/25 17:00 Temperature 98.8 F Temperature Source Oral Pulse Rate 85 80 73 Respiratory Rate 16 16 18 Blood Pressure 180/72 H 223/94 H 192/84 H Blood Pressure Mean 108 137 120 Pulse Ox 98 97 97 Oxygen Delivery Method Room Air Room Air Room Air 06/02/25 17:13 Temperature 97.9 F Temperature Source Pulse Rate 73 Respiratory Rate 18 Blood Pressure 192/84 H Blood Pressure Mean 120 Pulse Ox 97 Oxygen Delivery Method Positive well nourished and well developed General Appearance ED: well developed and NAD HEENT Reports dry mucous membranes Mouth ED: Yes dry mucous membranes Mouth: dry mucous membranes Eyes PERRL Neck supple Chest Wall inspection of chest normal and palpation of chest normal Resp normal respiratory effort and clear to auscultation bilaterally Cardio regular rate and regular rhythm GI Inspection: Negative for abdominal distention Auscultation: normoactive bowel sounds Palpation: soft and tender epigastric; Negative for guarding Back/Spine no CVA tenderness Extremity normal to inspection Neuro oriented x3 Sensorium / Orientation: alert Motor Exam: Negative for general weakness Psych mental status grossly normal Skin no rashes or lesions noted and no wounds <Dr. Zachary Ni MD - Last Filed: 06/02/25 16:55> Physical Exam Const Vital Signs: 06/02/25 13:10 06/02/25 15:09 06/02/25 17:00 Temperature 98.8 F Temperature Source Oral Pulse Rate 85 80 73 Respiratory Rate 16 16 18 Blood Pressure 180/72 H 223/94 H 192/84 H Blood Pressure Mean 108 137 120 Pulse Ox 98 97 97 Oxygen Delivery Method Room Air Room Air Room Air 06/02/25 17:13 Temperature 97.9 F Temperature Source Pulse Rate 73 Respiratory Rate 18 Blood Pressure 192/84 H Blood Pressure Mean 120 Pulse Ox 97 Oxygen Delivery Method MDM <Dr. Dia Roberts DO - Last Filed: 06/03/25 07:16> MDM MDM Narrative Medical decision making narrative: Patient valuated for worsening epigastric abdominal pain. Has a history of gastroparesis as well as bleeding ulcers. Upon arrival patient's blood pressure is elevated. Differential includes gastritis, abdominal pain associated gastroparesis, cholecystitis, pancreatitis, referred cardiac symptoms, Electrolyte derangement and UTI. Pain is midline to lower suspicion for renal pathology. She has equal pulses in all 4 extremities and low suspicion for aortic pathology. Patient is given IV fluids and Reglan in the emergency room. Patient does have a leukocytosis 11.4 which is nonspecific. Creatinine is elevated 1.46 but this appears near her baseline. Potassium mildly elevated 5.8 however question there is a component of hemolysis. Sodium mildly low at 131 and her chloride is normal. BUN is elevated at 33 which is actually near her baseline. Normal liver enzymes and bilirubin so lower suspicion for choledocholithiasis. Lipase is elevated at 221 which is near the threshold for pancreatitis. Patient is given morphine given her elevated lipase and no improvement with Reglan for her pain. Case signed out to oncoming physician pending CT result for final disposition. Anticipate if her CT shows findings of pancreatitis or she still symptomatic will require admission to the hospital. If CT negative and patient has symptom control could be discharged home Lab Data Attestation: I reviewed the patient's lab results. Labs: Laboratory Results - last 24 hr 06/02/25 06/02/25 13:12 14:02 WBC 11.4 H RBC 3.96 L Hgb 13.0 Hct 39.1 MCV 98.7 MCH 32.8 H MCHC 33.2 RDW Std Deviation 54.0 H RDW Coeff of Yudelka 14.8 H Plt Count 244 MPV 10.5 Immature Gran % (Auto) 0.400 Neut % (Auto) 79.7 H Lymph % (Auto) 14.0 L Glades % (Auto) 5.2 Eos % (Auto) 0.5 Baso % (Auto) 0.2 Absolute Neuts (auto) 9.1 H Absolute Lymphs (auto) 1.59 Nucleated RBC % 0 Sodium 131 L Potassium 5.8 H Chloride 106 Carbon Dioxide 16.1 L Anion Gap 9 BUN 33 H Creatinine 1.46 H Estim Creat Clear Calc 34.16 L Est GFR (MDRD) Non-Af 41 L BUN/Creatinine Ratio 22.3 H Glucose 125 H Calcium 9.3 Total Bilirubin 0.20 Direct Bilirubin 0.08 AST 14 ALT 15 Alkaline Phosphatase 75 Total Protein 5.7 L Albumin 3.5 Globulin 2.2 Lipase 221 H Urine Color Yellow Urine Clarity Clear Urine pH 6.0 Ur Specific [place] 1.015 Urine Protein 100 H Urine Glucose (UA) 1000 H Urine Ketones Negative Urine Occult Blood Negative Urine Nitrite Negative Urine Bilirubin Negative Urine Urobilinogen Normal Ur Leukocyte Esterase 25 H Urine RBC 0 SEEN Urine WBC 0-5 SEEN Ur Squamous Epith Cells 5-10 SEEN Urine Bacteria 0 SEEN Urine Mucus 0 SEEN Radiography Diagnostic Testing: Clinical Impression(s) from Imaging Studies Abdomen/Pelvis CT 06/02/25 15:20 IMPRESSION: There is marked thickening of gastric wall findings could be related to underlying gastritis. Further correlation with endoscopy can be obtained if not already performed. Ghsaglhf-[id number]-[id number] stool burden. Colonic diverticulosis without evidence of diverticulitis. Distended urinary bladder. Bilateral adrenal adenomas are visualized. Further correlation with CT with adrenal protocol can be obtained on nonemergent basis. Advanced degenerative changes of lower lumbar spine with superior endplate deformity of L4 vertebral body. Reading Location: [facility] Rhythm Strip Rhythm Strip: Sinus Rhythm Rate: 75 Ectopy: None EKG Initial EKG: Attestation: I personally reviewed and interpreted this EKG as follows: Interpretation: Sinus Rhythm Comments: Normal sinus rhythm rate of 75 beats per minutes Left axis deviation Normal intervals Normal ST segments Prior EKG tracings: available for review Prior: Unchanged <Dr. Zachary Ni MD - Last Filed: 06/02/25 16:55> [facility] Lab Data Labs: Laboratory Results - last 24 hr 06/02/25 06/02/25 13:12 14:02 WBC 11.4 H RBC 3.96 L Hgb 13.0 Hct 39.1 MCV 98.7 MCH 32.8 H MCHC 33.2 RDW Std Deviation 54.0 H RDW Coeff of Yudelka 14.8 H Plt Count 244 MPV 10.5 Immature Gran % (Auto) 0.400 Neut % (Auto) 79.7 H Lymph % (Auto) 14.0 L Glades % (Auto) 5.2 Eos % (Auto) 0.5 Baso % (Auto) 0.2 Absolute Neuts (auto) 9.1 H Absolute Lymphs (auto) 1.59 Nucleated RBC % 0 Sodium 131 L Potassium 5.8 H Chloride 106 Carbon Dioxide 16.1 L Anion Gap 9 BUN 33 H Creatinine 1.46 H Estim Creat Clear Calc 34.16 L Est GFR (MDRD) Non-Af 41 L BUN/Creatinine Ratio 22.3 H Glucose 125 H Calcium 9.3 Total Bilirubin 0.20 Direct Bilirubin 0.08 AST 14 ALT 15 Alkaline Phosphatase 75 Total Protein 5.7 L Albumin 3.5 Globulin 2.2 Lipase 221 H Urine Color Yellow Urine Clarity Clear Urine pH 6.0 Ur Specific [place] 1.015 Urine Protein 100 H Urine Glucose (UA) 1000 H Urine Ketones Negative Urine Occult Blood Negative Urine Nitrite Negative Urine Bilirubin Negative Urine Urobilinogen Normal Ur Leukocyte Esterase 25 H Urine RBC 0 SEEN Urine WBC 0-5 SEEN Ur Squamous Epith Cells 5-10 SEEN Urine Bacteria 0 SEEN Urine Mucus 0 SEEN Radiography Diagnostic Testing: Clinical Impression(s) from Imaging Studies Abdomen/Pelvis CT 06/02/25 15:20 IMPRESSION: There is marked thickening of gastric wall findings could be related to underlying gastritis. Further correlation with endoscopy can be obtained if not already performed. Aefyyzkc-jb-[id number] stool burden. Colonic diverticulosis without evidence of diverticulitis. Distended urinary bladder. Bilateral adrenal adenomas are visualized. Further correlation with CT with adrenal protocol can be obtained on nonemergent basis. Advanced degenerative changes of lower lumbar spine with superior endplate deformity of L4 vertebral body. Reading Location: [facility] The CT was reviewed. Patient has marked thickening of the gastric wall which would suggest gastritis. Since she has tenderness in this area will treat with PPI if not presently on. She is on an H2 lázaro. Discharge Plan Triage Chief Complaint: Abd Pain ED Provider: Dia Roberts Dx/Rx/DC Orders Clinical Impression: Abdominal pain, epigastric, Elevated lipase, Acute on chronic gastritis, Leukocytosis, Type 2 diabetes mellitus, Renal insufficiency Instructions: ED Gastritis (Adult) Prescriptions: New pantoprazole [Protonix] 40 mg tablet,delayed release (DR/EC) 40 mg PO DAILY Qty: 30 0RF No Action atorvastatin 80 mg tablet 80 mg PO QHS albuterol sulfate 90 mcg/actuation HFA aerosol inhaler 2 puff inhalation Q6H PRN (Reason: SOB) lisinopril 40 mg tablet 40 mg PO DAILY (DME) FreeStyle Sandra 14 Day Sensor Kit See Rx Instructions .Route Qty: 2 5RF Rx Instructions: 1 sensor q 14 days ipratropium-albuterol 0.5 mg-3 mg(2.5 mg base)/3 mL solution for nebulization 3 ml inhalation 4X/DAY PRN (Reason: sob) loratadine 10 mg tablet 10 mg PO DAILY ondansetron 4 mg tablet,disintegrating 4 mg PO Q8H PRN PRN (Reason: Nausea) Qty: 10 0RF gabapentin 800 mg tablet 800 mg PO TID hydralazine 50 mg tablet 50 mg PO 4X/DAY hydrochlorothiazide 25 mg tablet 25 mg PO DAILY albuterol sulfate 2.5 mg /3 mL (0.083 %) Solution For Nebulization 2.5 mg inhalation Q2H PRN PRN (Reason: Dyspnea, wheezing) Qty: 0 0RF acetaminophen 500 mg Tablet 1,000 mg PO Q8 Qty: 0 0RF famotidine 20 mg Tablet 20 mg PO DAILY Qty: 0 0RF nicotine 21 mg/24 hr Patch 24 Hour 21 mg transdermal DAILY PRN PRN (Reason: Nicotine Craving) Qty: 0 0RF melatonin 10 mg Tablet, Sublingual 10 mg PO QHS Qty: 0 0RF sennosides-docusate sodium [Stimulant Laxative Plus] 8.6-50 mg Tablet 2 tab PO BID Qty: 0 0RF insulin glargine-yfgn 100 unit/mL (3 mL) Insulin Pen 8 unit subcut QAM Qty: 15 0RF Rx Instructions: may need to uptitrate as po intake improves, had been on 24u prior to acute care hospital admission (DME) blood-glucose meter [OneTouch Verio Flex meter] Misc See Rx Instructions .Route Qty: 1 0RF Rx Instructions: As directed (DME) OneTouch Verio test strips Strip See Rx Instructions .Route Qty: 100 5RF Rx Instructions: 4x/day (DME) pen needle, diabetic [BD Ultra-Fine Sissy Pen Needle] 32 gauge x 5/32 needle See Rx Instructions .ROUTE .MEDSUPPLY Qty: 150 3RF Rx Instructions: 5 times daily Primary Care Provider: Araceli Ramos NP Referrals: Araceli Ramos NP, EDUCATION PROGRAM SPECIALIST-C [Primary Care Provider, Family Practice] - 1-2 Weeks Print Language: Estonian Disposition Disposition: Home, Self Care Discharge Date/Time: 06/02/25 17:14
[2025-06-02 15:07] LABS: AST(SGOT) 14 U/L (<=31); Alanine Aminotransfer ALT/SGPT 15 U/L (<=34); Albumin, Serum 3.5 g/dL (3.4-4.8); Alkaline Phosphatase 75 U/L (35-104); Anion Gap 9 (5-15); BUN 33 mg/dL (4-19); BUN/Creat Ratio 22.3 RATIO (10-20); Bilirubin, Direct 0.08 mg/dL (0.00-0.30); Calcium,Total 9.3 mg/dL (7.6-11.0); Carbon Dioxide 16.1 mmol/L (21.0-32.0); Chloride 106 mmol/L (98-108); Estimated Creatinine Clearance 34.16 ml/min (50-250); Globulin 2.2 g/dL (2.2-4.2); Glucose 125 mg/dL (70-99); Lipase 221 U/L (13-75); Potassium 5.8 mmol/L (3.3-5.1)
[2025-06-02 15:09] VITALS: BP 223/94; PULSE 80; RESP 16; O2SAT 97
--- NOTE | 2025-06-02 15:20 | CT_ITS ---
PROCEDURE: ABDOMEN/PELVIS W IV CONT ONLY 06/02/2025 REASON FOR EXAM: EPIGASTRIC ABDOMINAL PAIN TECHNIQUE: Procedure Code: [id number] Modality: CT Procedure: ABDOMEN/PELVIS W IV CONT ONLY Coronal and Sagittal reconstruction series were provided. CONTRAST: Isovue-300 VOLUME: 97 mL One or more dose reduction techniques were used (e.g., Automated exposure control, adjustment of the mA and/or kV according to patient size, use of iterative reconstruction technique. RADIATION DOSE SUMMARY: CTDlvol: 12.9 mGy DLP: 618.4 mGycm COMPARISON: CT abdomen and pelvis with contrast 09/12/2023 FINDINGS: Lung bases: Mild dependent atelectasis Liver: Normal size. No mass. Gallbladder: Unremarkable distended with sludge Spleen: Normal size. Pancreas: Normal size without evidence of mass surrounding inflammation or ductal dilation. Adrenals: Bilateral adrenal adenomas are visualized, unchanged since prior study. Kidneys: Bilateral extrarenal pelvis. Small hypodense lesion within right lower pole likely representing cyst., unchanged Bladder: Distended urinary bladder. Reproductive Organs: Unremarkable Bowel: Markedly thickened gastric wall with diffuse thickening. Opwbaaon-ns-cqbwu stool burden. Scattered colonic diverticulosis without evidence of diverticulitis. Appendix: The appendix is not identified. There is no inflammatory process identified in the right lower quadrant to suggest appendicitis.214 Lymph nodes: Scattered mesenteric lymph nodes. Vasculature: Atherosclerotic calcification of abdominal aorta and its branches. Peritoneum / Retroperitoneum: Bones: Kyphoplasty material within T12 vertebral body. Advanced degenerative changes of lower lumbar spine more prominent along l4 -l5 with superior endplate deformity of L4 vertebral body. Bilateral surgical fixation hardware within femurs. CT/Abdomen/Pelvis W IV Cont ONLY IMPRESSION: There is marked thickening of gastric wall findings could be related to underly ing gastritis. Further correlation with endoscopy can be obtained if not already performed. Xwscdbpp-qs-gvaqg stool burden. Colonic diverticulosis without evidence of div erticulitis. Distended urinary bladder. Bilateral adrenal adenomas are visualized. Further correlation with CT with ad renal protocol can be obtained on nonemergent basis. Advanced degenerative changes of lower lumbar spine with superior endplate defo rmity of L4 vertebral body. Reading Location: [id number]
[2025-06-02 17:00] VITALS: BP 192/84; PULSE 73; RESP 18; O2SAT 97
[2025-06-02 17:13] VITALS: BP 192/84; PULSE 73; RESP 18; TEMP 36.6; O2SAT 97
== END 2025-06-02 17:14 | disposition home or self-care (01) ==
PROVIDERS: Emergency Provider Emergency Medicine; PCP Internal Medicine; Visit Provider Emergency Medicine
DX: R10.13 Epigastric pain (principal); J44.9 Chronic obstructive pulmonary disease, unspecified; E11.43 Type 2 diabetes mellitus with diabetic autonomic (poly)neuropathy; Z79.4 Long term (current) use of insulin; I10 Essential (primary) hypertension; E78.00 Pure hypercholesterolemia, unspecified; N28.9 Disorder of kidney and ureter, unspecified; D72.829 Elevated white blood cell count, unspecified; R74.8 Abnormal levels of other serum enzymes; F17.210 Nicotine dependence, cigarettes, uncomplicated; R41.0 Disorientation, unspecified; I25.10 Atherosclerotic heart disease of native coronary artery without angina pectoris; Z90.710 Acquired absence of both cervix and uterus; K21.9 Gastro-esophageal reflux disease without esophagitis; K31.84 Gastroparesis; Z99.89 Dependence on other enabling machines and devices; R11.2 Nausea with vomiting, unspecified; R19.7 Diarrhea, unspecified; K29.00 Acute gastritis without bleeding
CPT/HCPCS: 74177; 80048; 80076; 81001; 83690; 85025; 93005; 96361; 96374; 96375; 99285; Q9967; A4216

== ENCOUNTER 2025-06-05 15:56 | Emergency (ER) | payer MEDICAID, SELFPAY ==
--- OUTSIDE RECORDS SUMMARY | 2025-05-18 08:44 | XMS RPT_ITS ---
Author Name Auto Generated Organization OHIP Care Team Providers Care Automotive Specialty Technician Name Role Phone ROB MART Attending Unavailable TALAMPAS, RISSA D Primary Care Unavailable MELI CRABTREE FACP, RON Esteban Admitting Unavail able SHEETS DO, JAREN Primary Care Unavailable MELI CRABTREE FACP, RON Esteban Attending Unavail able MELI CRABTREE FACP, RON Esteban Consulting Unavail able MARY LOU VITALE-INDY MÉNDEZ Admitting Unavaila ble SHEETS DO, JAREN Primary Care Unavailable MELI CRABTREE FACP, RON Esteban Attending Unavail able RON MESA Referring Unavailabl e TALAMPAS, RISSA D Primary Care Unavailable RON MESA Attending Unavailabl e TALAMPAS, RISSA D Primary Care Unavailable RON MESA Attending Unavailabl e TALAMPAS, RISSA D Primary Care Unavailable NAVI RODRÍGUEZ Referring Unavail able TALAMPAS, RISSA D Primary Care Unavailable TALAMPAS, RISSA D Primary Care Unavailable PROVIDER, UNKNOWN Referring Unavailable TALAMPAS, RISSA D Primary Care Unavailable PROVIDER, UNKNOWN Referring Unavailable TALAMPAS, RISSA D Attending Unavailable TALAMPAS, RISSA D Primary Care Unavailable TALAMPAS, RISSA D Primary Care Unavailable GONSALEZJERRYI Referring Unavailable TALAMPAS, RISSA D Referring Unavailable TALAMPAS, RISSA D Primary Care Unavailable NAVI RODRÍGUEZ Attending Unavail able TALAMPAS, RISSA D Primary Care Unavailable GONSALEZ, GEORGINA Attending Unavailable TALAMPAS, RISSA D Primary Care Unavailable GONSALEZ GEORGINA Attending Unavailable BLADE GONZALES Referring Unavailable TALAMPAS, RISSA D Primary Care Unavailable INDY UP Attending Unavailable TALAMPAS, RISSA D Referring Unavailable TALAMPAS, RISSA D Primary Care Unavailable NAVI RODRÍGUEZ Attending Unavail able TALAMPAS, RISSA D Primary Care Unavailable ROB GONZÁLES Referring Unavailable TALAMPAS, RISSA D Primary Care Unavailable ROB GONZÁLES Attending Unavailable TALAMPAS, RISSA D Primary Care Unavailable LETICIA MARTINEZ Referring Unavailable TALAMPAS, RISSA D Primary Care Unavailable GONSALEZ, GEORGINA Attending Unavailable GONSALEZ, GEORGINA Referring Unavailable TALAMPAS, RISSA D Primary Care Unavailable TALAMPAS, RISSA D Primary Care Unavailable CRYSTAL ROBLES Attending Unavailable TALAMPAS, RISSA D Primary Care Unavailable CRYSTAL ROBLES Attending Unavailable GONSALEZ, GEORGINA Referring Unavailable TALAMPAS, RISSA D Primary Care Unavailable TALAMPAS, RISSA D Primary Care Unavailable GONSALEZ, GEORGINA Attending Unavailable GONSALEZ, GEORGINA Referring Unavailable TALAMPAS, RISSA D Primary Care Unavailable TALAMPAS, RISSA D Primary Care Unavailable GERTRUDE HINOJOSA Attending Unavailable GERTRUDE HINOJOSA Referring Unavailable TALAMPAS, RISSA D Attending Unavailable GONSALEZ, GEORGINA Referring Unavailable TALAMPAS, RISSA D Primary Care Unavailable TALAMPAS, RISSA D Primary Care Unavailable KEVIN JARRETT Referring Unavailable TALAMPAS, RISSA D Primary Care Unavailable TALAMPAS, RISSA D Primary Care Unavailable NAVI RODRÍGUEZ Attending Unavail able TALAMPAS, RISSA D Primary Care Unavailable GONSALEZ, GEORGINA Referring Unavailable TALAMPAS, RISSA D Primary Care Unavailable GONSALEZ, GEORGINA Attending Unavailable TALAMPAS, RISSA D Attending Unavailable TALAMPAS, RISSA D Primary Care Unavailable TALAMPAS, RISSA D Referring Unavailable TALAMPAS, RISSA D Primary Care Unavailable TALAMPAS, RISSA D Primary Care Unavailable GONSALEZ, GEORGINA Referring Unavailable GONSALEZ, GEORGINA Referring Unavailable TALAMPAS, RISSA D Primary Care Unavailable PROBLEMS DATE TYPE CONDITION / CODE ATTENDING STATUS [facility] 05/18/2025 Active Painful orthopae dic hardware / T84.84XA(ICD-10) NA Active [facility] 03/14/2025 Active Diabetic gastrop aresis associated with type 2 diabetes mellitus (HCC) / E11.43(ICD-10) GEORGINA GONSALEZ Active [facility] 03/14/2025 Active Diabetic gastrop aresis associated with type 2 diabetes mellitus (HCC) / K31.84(ICD-10) GEORGINA GONSALEZ Active [facility] 03/14/2025 Active Essential (prima ry) hypertension / I10(ICD-10) GEORGINA GONSALEZ Active [facility] 03/07/2025 Active Other osteoporos is / M81.8(ICD-10) NA Active [facility] 03/07/2025 Active Screening for co jace cancer / Z12.11(ICD-10) GEORGINA GONSALEZ Active [facility] 03/07/2025 Active Encounter for sc reening mammogram for breast cancer / Z12.31(ICD-10) GEORGINA GONSALEZ Active [facility] 03/07/2025 Active Self-care defici t / Z78.9(ICD-10) GEORGINA GONSALEZ Active [facility] 11/08/2024 Active Presence of righ t artificial hip joint / Z96.641(ICD-10) CRYSTAL ROBLES Active [facility] 11/08/2024 Active Closed displaced comminuted fracture of shaft of left femur, sequela / S72.352S(ICD-10) CRYSTAL ROBLES Active [facility] 02/15/2025 Active Other chronic postprocedural pain / G89.28(ICD-10) CRYSTAL ROBLES Active [facility] 02/15/2025 Active S/P right hip fr acture / Z87.81(ICD-10) CRYSTAL ROBLES Active [facility] 02/15/2025 Active Dysthymic / F34.1(ICD-10) CRYSTAL ROBLES Active [facility] 01/25/2025 Active RUQ pain / R10.11(ICD-10) CRYSTAL ROBLES Active [facility] 01/17/2025 Active Greater trochant fabi bursitis, unspecified laterality / M70.60(ICD-10) NAVI RODRÍGUEZ Active [facility] 12/31/2024 Active Drug-induced con stipation / K59.03(ICD-10) RISSA HANKS Active [facility] 12/22/2024 Active Bilateral hip pa in / M25.551(ICD-10) RON MESA Active [facility] 12/22/2024 Active Bilateral hip pa in / M25.552(ICD-10) RON MESA Active [facility] 12/22/2024 Active History of right hip replacement / Z96.641(ICD-10) RON MESA Active [facility] 12/22/2024 Active Pain in right hi p / M25.551(ICD-10) RON MESA Active [facility] 07/04/2023 Active DM gastroparesis (HCC) / E11.43(ICD-10) INDY UP Active [facility] 07/04/2023 Active DM gastroparesis (HCC) / K31.84(ICD-10) INDY UP Active [facility] 12/03/2024 Active Gastroparesis / K31.84(ICD-10) INDY UP Active [facility] 12/03/2024 Active Pain of upper ab domen / R10.10(ICD-10) INDY UP Active [facility] 11/22/2024 Active Osteoporosis wit h pathological fracture with routine healing, subsequent encounter / M80.00XD(ICD-10) NA Active [facility] 10/29/2024 Active Mononeuropathy / G58.9(ICD-10) RON MESA Active [facility] 10/14/2024 Active Painful orthopae dic hardware (HCC) / T84.84XA(ICD-10) NA Active [facility] 10/13/2023 Active Postlaminectomy syndrome of lumbar region / M96.1(ICD-10) NA Active [facility] 09/22/2024 Active Encounter for lo ng-term current use of medication / Z79.899(ICD-10) NA Active [facility] 09/22/2024 Active Vitamin D defici ency / E55.9(ICD-10) NA Active [facility] 07/04/2023 Active DM gastroparesis (HCC) (HCC) / E11.43(ICD-10) GERTRUDE HINOJOSA Active [facility] 07/04/2023 Active DM gastroparesis (HCC) (HCC) / K31.84(ICD-10) GERTRUDE HINOJOSA Active [facility] 08/31/2024 Active Gastroesophageal reflux disease, unspecified whether esophagitis present / K21.9(ICD-10) GERTRUDE HINOJOSA Active [facility] 08/25/2024 Active Encounter for sc reening for cardiovascular disorders / Z13.6(ICD-10) NA Active [facility] 11/05/2022 Active Chronic obstruct nayla pulmonary disease, unspecified ([facility]) / J44.9(ICD-10) GEORGINA GONSALEZ Active [facility] 08/28/2022 Active Uncontrolled typ e 2 diabetes mellitus with hyperglycemia ([facility]) / E11.65(ICD-10) GEORGINA GONSALEZ [facility] 08/09/2024 Active S/p left hip fra cture / Z87.81(ICD-10) [facility] Encounter for immunization / Z23(ICD-10) [facility] Active Screening for di abetic retinopathy / Z13.5(ICD-10) [facility] Active Screening for de pression / Z13.31(ICD-10) GEORGINA GONSALEZ [facility] 08/09/2024 Active Encounter for sc reening examination for other mental health and behavioral disorders / Z13.39(ICD-10) GEORGINA GONSALEZ [facility] 08/09/2024 Active Screening for ce rvical cancer / Z12.4(ICD-10) THAIS [facility] 07/29/2024 Active Chronic pain syn drome / G89.4(ICD-10) ROB MART [facility] 07/29/2024 Active Closed fracture of shaft of left femur, unspecified fracture morphology, initial encounter ([facility]) / S72.302A(ICD-10) ROB MART [facility] 07/29/2024 Active Left leg pain / M79.605(ICD-10) ROB MART [facility] 06/11/2023 Active Primary hyperten aliza / I10(ICD-10) GEORGINA GONSALEZ Active [facility] 02/21/2023 Active Right upper quad rant abdominal pain / R10.11(ICD-10) GEORGINA GONSALEZ Active [facility] 11/05/2022 Active Tobacco use / Z72.0(ICD-10) GEORGINA GONSALEZ Active [facility] 06/21/2024 Active Anxiety / F41.9(ICD-10) GEORGINA GONSALEZ A ctive [facility] PROCEDURES No Procedure Records Found RESULTS PROGRESS Observed: 05/18/2025 9:15 AM Status: COMPLETED Source: [facility] HNO ID: [id number] Author: NAVI RODRÍGUEZ MD Service: ? Author Type: Physician Type: Progress Notes Filed: 05/18/2025 10:03 Note Text: CONSULT ORTHOPAEDIC: HIP PRIMARY CARE PHYSICIAN: Rissa Hanks MD REFERRING PROVIDER: Rissa Hanks [id number] [facility] [id number] ASSESSMENT AND PLAN This is a 59-year-old female presents with bilateral hip pain. Patient complains of pain in her right hip. She has a total hip replacement with a cemented femoral stem. Patient suffered a fall in November 2023 underwent left hip medullary nail fixation for subtrochanteric femur fracture. This was done in [facility]. This is complicated during procedure for perforation of the femur and had a lateral plate placement due to perforation of the nail. She has a long nail and lateral plate construct of the left femur. Patient had a fall in June 2024 and underwent a right hip replacement for this. Still has pain around the hip. She follows up today regarding both hips. Patient is an active smoker smokes 1 pack/day. Patient has a history of gastroparesis and COPD and type 2 diabetes. Her last hemoglobin A1c is 8.61-month ago. 05/17/2025: follows up today. Continues to have pain in both hips. A1C is 10 as of 02/2025 and still smoking. Fracture is healed. No signs of infection. PAin in lateral hips bilateral with activity. Patient still actively smoking. Has plate irritation hardware rotation of her left hip still. Mostly pain over the lateral aspect of her hip from her knee to her hip. Impression: Right hip pain after total hip replacement done in outside hospital last year. Left hip pain after subtrochanteric femur fracture complicated by perforation with soft medullary nail construct with plate construct as well. Also done in outside hospital. Discussed the patient that unfortunately hardware removal cannot be done at this time she has a hemoglobin A1c of 10 and still actively smoking. She be too high risk for any removal of any hardware due to infection risk. Discussed with her that if she would like to move forward with that she got to quit smoking get an A1c of less than 7.5. Then we will have her follow-up with a traumatologist for possible plate removal. Diagnoses: No diagnosis found. Major Risk Factors Obesity normal High: BMI > 40 Moderate: BMI 30-40 Normal: BMI < 30 Diabetes High Risk High: A1C > 8 Moderate: A1C 7-8 Normal: A1C < 7 Hx of DVT / PE normal High: dx of DVT / PE Normal: no dx of DVT / PE Smoking High Risk High: Current smoker Normal: Non smoker Narcotics Use High Risk High:NarxCare >=300 Moderate: 100-299 Normal: 0-99 Depression High Risk High: PHQ-9 >14 Moderate: PHQ-9 5-14 Normal: PHQ-9 < 5 Area Deprivation Index (REGINA) Unknown Risk High: REGINA Score > 75 Moderate: REGINA 50-75 Normal: REGINA < 50 Diabetes: Nikkie has been diagnosed with Type 2 Diabetes. Her last Hemoglobin A1C was 10 - 03/07/2025. Pt is followed by Georgina Gonsalez for Type 2 Diabetes - last seen on 03/14/2025. Consult to the Endocrinology and Metabolic [place] (QUIN) recommended prior to surgery. Nikkie is a smoker. It is recommended that she receive a consult for smoking cessation and complete 30 days of no tobacco use prior to surgery. Area Deprivation Index (REGINA) 04/12/2022 01/15/2023 REGINA Score National Score 87 90 Patient Health Questionnaire (PHQ-9) 10/12/2024 10/29/2024 12/24/2024 PHQ-9 PHQ-2 Score 4 2 4 PHQ-9 Score 15 10 16 (0-4) minimal depression, (5-9) mild depression, (10-14) moderate depression, (15-19) moderately severe depression, (20-27) severe depression Bone Density Risk Screen Nikkie Buck is at risk for bone loss. Her last bone densitometry on file was completed on 11/24/2024. Risk Factors: Dx of Osteoporosis Use of Proton Pump Inhibitors History of falls Dx of Chronic Kidney Disease (CKD) History of Fracture (Vertebral Fracture) Current Smoker Prednisone or use of systemic steroids Additional Risk Factors COPD NarxCare score NARX Narcotics: 470 (05/17/2025 11:55 AM) Recommend a consult to Chronic Pain Management. Obstructive Sleep Apnea (FRANCISCO) Malnutrition: No Malnutrition Screening Tool (MST) score on file- please complete the MST screening tool (click here to open) and refresh the note. ACTIVE PROBLEM LIST Uncontrolled Type 2 Diabetes Mellitus With Hyperglycemia (Hcc) Chronic Midline Low Back Pain With Sciatica Chronic Obstructive Pulmonary Disease, Unspecified (Hcc) Hyperlipidemia, Unspecified Tobacco Use Abnormal CT Scan, Kidney Dyspepsia Epigastric Pain Right Upper Quadrant Abdominal Pain Chronic Gastritis Without Bleeding Gastric Wall Thickening Primary Hypertension Neuropathy Back Pain With History of Spinal Surgery Francisco (Obstructive Sleep Apnea) Dm Gastroparesis (Hcc) Abdominal Bloating Obesity Postlaminectomy Syndrome of Lumbar Region Sciatica Nicotine use disorder, F17.2 Osteoporosis Closed Displaced Comminuted Fracture of Shaft of Left Femur (Hcc) Presence of Right Artificial Hip Joint SUBJECTIVE CHIEF COMPLAINT: Hip Pain HPI: Nikkie Buck is a 59 year old patient . Nikkie Buck has had progressive problems with the hip(s) most of the day over the past 1 year(s) interfering with activities which include walking 2 blocks. The problem began limiting activities 1-3 years ago. PROMIS Physical Function Score Descriptive Summary for PROMIS Physical Function T-score = 31 (Percentile 3) Unable - Do 2 hours of physical labor Unable - Walk at a normal speed. 09/13/2022 10/12/2024 12/24/2024 PROMIS CAT Physical Function T-Score 29 (severe dysfunction) 29 (severe dysfunction) 31 (moderate dysfunction) Percentile 2 2 3 FUNCTIONAL STATUS: Do moderate work around the house such as vacuuming, sweeping floors, or carrying in groceries (3.50 METs) PREVIOUS TREATMENTS: Past anti-inflammatory medications (not necessarily for this reason for visit): dexamethasone sodium phosphate, diclofenac sodium, hydrocortisone sodium succ/PF, ketorolac tromethamine, methylprednisolone sod succ/PF Physical Therapy: PT Three Months or Greater 1-2 times per week REVIEW OF SYSTEMS: GENERAL: Denies fever, chills malaise and weight loss.. PAIN ASSESSMENT: See HPI. CARDIOVASCULAR: Denies chest pain, history of A-fib, valvular disease, hypertension, CHF or pacemaker/ICD.. RESPIRATORY: Denies SOB, sputum production, dyspnea, COPD and hemoptysis.. MUSCULOSKELETAL: See HPI. NEURO: Denies CVA, seizures, headaches.. ENDOCRINE: Denies diabetes, thyroid disease.. 11/26/2023 Malnutrition Screening Tool (MST) Lost Weight Recently Without Trying? If Yes, Amount of Weight Loss(lbs) 0:No Eating Poorly Because of a Decreased Appetite 0:No Weight Loss Score (Calculated) 0 Appetite Score (Calculated) 0 Total MST Score (Calculated) 0 Data saved with a previous flowsheet row definition PAST MEDICAL HISTORY Diagnosis Date Abdominal bloating 10/13/2023 Arthritis COPD (chronic obstructive pulmonary disease) (HCC) Diabetes (HCC) Hypertension Median arcuate ligament syndrome Sleep apnea PAST SURGICAL HISTORY Procedure Laterality Date ANKLE SURGERY HX Left BACK SURGERY HX Bilateral DELIVERY ONLY EGD W/O BRSH SPEC VARICIES INJ 02/21/2023 GI TRANSIT AND PRES SARAH WIRELESS CAPSULE W/INTERP 09/12/2023 Smart Pill, Dr. Vgea PAST SURGICAL HISTORY OF N/A 12/03/2024 EGD/G Poem surgery REVISE MEDIAN N/CARPAL TUNNEL SURG Bilateral TOTAL HIP REPLACEMENT Right VAGINAL HYSTERECTOMY FAMILY HISTORY Problem Relation Age of Onset Hypertension Mother Lung Cancer Mother Cancer Father Lung Cancer Sister Diabetes Sister Stroke Sister Hypertension Paternal Grandmother Diabetes Maternal Uncle Diabetes Paternal Aunt Social History Tobacco Use Smoking status: Every Day Current packs/day: 1.00 Types: Cigarettes Smokeless tobacco: Never Tobacco comments: 3/4's of a pack daily Vaping Use Vaping status: Never Used Substance Use Topics Alcohol use: Never Drug use: Never ALLERGIES: Duloxetine, Nsaids (Non-Steroidal Anti-Inflammatory Drug), Penicillins, Pregabalin, Amlodipine, Celebrex [Celecoxib], Penicillin G, Ibuprofen, and Tylenol [Acetaminophen] MEDICATIONS: gabapentin (NEURONTIN) 800 mg tablet Take 1 tablet by mouth four times daily for 60 days. omeprazole (PRILOSEC) 40 mg capsule Take 1 capsule by mouth two times a day. oxyCODONE IR (ROXICODONE) 10 mg tab Take 1 tablet by mouth three times a day as needed for pain for up to 7 days. fluticasone-salmeterol (ADVAIR DISKUS) 100-50 mcg/dose inhaler Inhale 1 puff as instructed two times a day. Blood-Glucose Sensor (FREESTYLE KATHERINE 3 PLUS SENSOR) jaguar Apply new sensor every fifteen (15) days to upper arm. insulin glargine 100 unit/mL (3 mL) Inject 30 Units subcutaneously daily at bedtime. FLUoxetine (PROZAC) 20 mg capsule Take 1 capsule by mouth once daily. insulin lispro (HUMALOG KWIKPEN) 100 unit/mL Take 5 units for glucose 250 or greater at mealtime empagliflozin (JARDIANCE) 10 mg tablet Take 1 tablet by mouth daily with breakfast. lisinopril (ZESTRIL) 5 mg tablet Take 1 tablet by mouth once daily. tiZANidine (ZANAFLEX) 4 mg tablet Take 1 tablet by mouth three times a day as needed. albuterol HFA (PROVENTIL HFA, VENTOLIN HFA) 90 mcg/actuation inhaler Inhale 2 puffs as instructed every 4 hours as needed for wheezing/shortness of breath. polyethylene glycol 3350 17 gram/dose powder Take 17 g by mouth once daily as needed for constipation. Cholecalciferol, Vitamin D3, 50 mcg (2,000 unit) cap Take 1 capsule by mouth once daily. Insulin Willow, Disposable, (BD ULTRA-FINE PADMINI PEN NEEDLE) 32 gauge x 5/32" 1 Each three times a day. hydrALAZINE (APRESOLINE) 50 mg tablet Take 1 tablet by mouth four times daily. Hold if blood pressure is less than 110/60 (Patient taking differently: Take 50 mg by mouth once daily. Hold if blood pressure is less than 110/60) ondansetron orally disintegrating (ZOFRAN ODT) 8 mg disintegrating tablet Take 1 tablet by mouth every 8 hours as needed for nausea/vomiting. blood sugar diagnostic (ONETOUCH VERIO TEST STRIPS) test strip 1 Strip four times daily. Use as instructed loratadine (CLARITIN) 10 mg tablet Take 1 tablet by mouth once daily. CPAP/BIPAP/OTHER Type .CPAPSettings into a note to see current settings/supplies/DME information. OBJECTIVE PHYSICAL EXAM There were no vitals taken for this visit. All other systems deferred. GENERAL: Appears healthy, well-nourished, no deformities. HABITUS: Thin GAIT: Antalgic to the right HIP EXAM: All incisions are well-healed in the left and right hip with no signs of infection. Left: ROM: Extension: full extension Flexion: 80 degrees Internal Rotation: 5 degrees External Rotation: 15 degrees Abduction: 20 degrees Adduction: 15 degrees Strength: Abduction 4/5 and Flexion 4/5 Palpation: Tenderness over left greater trochanter Log roll: non-painful. Straight leg raise: Negative Neurovascular Status: Sensation Intact, Moves foot and ankle up AND down, and 2+ dorsalis pedis Right: ROM: Extension: full extension Flexion: 80 degrees Internal Rotation: 5 degrees External Rotation: 15 degrees Abduction: 20 degrees Adduction: 15 degrees Strength: Abduction 4/5 and Flexion 4/5 Palpation: Tenderness over right greater trochanter and ITB Log roll: non-painful. Straight leg raise: Negative Neurovascular Status: Sensation Intact, Moves foot and ankle up AND down, and 2+ dorsalis pedis DATA: XR of the left hip shows interval healing and callus formation of the subtroch fracture with no change and position of the components. There is bony union. Mild knee OA, minimal hip OA Diagnostic tests reviewed for today's visit: The following conditions were addressed during the office visit today: Smoking - Cessation counseling was performed. We discussed the risks associated with smoking and Total Joint Arthroplasty. Smoking cessation consult will be completed to follow up on the plan of care. Diabetes - HgbA1C optimization - we discussed the importance of good glucose control for overall health and Total Joint Arthroplasty. I spent a total of approximately 25 minutes on the date of the service which included preparing to see the patient, [id number] patient care, completing clinical documentation, obtaining and/or reviewing separately obtained history, performing a medically appropriate examination, counseling and educating the patient/family/caregiver, ordering medications, tests, or procedures, independently interpreting results (not separately reported), communicating results to the patient/family/caregiver, and care coordination (not separately reported). CNOV Observed: 05/18/2025 9:15 AM Status: COMPLETED Source: [facility] Office Visit (ORMDNA) NIKKIE BUCK ([id number]) 1965 F Date Time Provider Department 05/18/25 9:15 AM NAVI RODRÍGUEZ During your visit today, we recorded the following information about you: Weight 60.2 kg Navi Rodríguez MD 05/18/2025 10:03 AM Signed CONSULT ORTHOPAEDIC: HIP PRIMARY CARE PHYSICIAN: Rissa Hanks MD REFERRING PROVIDER: Rissa Hanks [id number] [facility] [id number] ASSESSMENT AND PLAN This is a 59-year-old female presents with bilateral hip pain. Patient complains of pain in her right hip. She has a total hip replacement with a cemented femoral stem. Patient suffered a fall in November 2023 underwent left hip medullary nail fixation for subtrochanteric femur fracture. This was done in [facility]. This is complicated during procedure for perforation of the femur and had a lateral plate placement due to perforation of the nail. She has a long nail and lateral plate construct of the left femur. Patient had a fall in June 2024 and underwent a right hip replacement for this. Still has pain around the hip. She follows up today regarding both hips. Patient is an active smoker smokes 1 pack/day. Patient has a history of gastroparesis and COPD and type 2 diabetes. Her last hemoglobin A1c is 8.61-month ago. 05/17/2025: follows up today. Continues to have pain in both hips. A1C is 10 as of 02/2025 and still smoking. Fracture is healed. No signs of infection. PAin in lateral hips bilateral with activity. Patient still actively smoking. Has plate irritation hardware rotation of her left hip still. Mostly pain over the lateral aspect of her hip from her knee to her hip. Impression: Right hip pain after total hip replacement done in outside hospital last year. Left hip pain after subtrochanteric femur fracture complicated by perforation with soft medullary nail construct with plate construct as well. Also done in outside hospital. Discussed the patient that unfortunately hardware removal cannot be done at this time she has a hemoglobin A1c of 10 and still actively smoking. She be too high risk for any removal of any hardware due to infection risk. Discussed with her that if she would like to move forward with that she got to quit smoking get an A1c of less than 7.5. Then we will have her follow-up with a traumatologist for possible plate removal. Diagnoses: No diagnosis found. Major Risk Factors Obesity normal High: BMI > 40 Moderate: BMI 30-40 Normal: BMI < 30 Diabetes High Risk High: A1C > 8 Moderate: A1C 7-8 Normal: A1C < 7 Hx of DVT / PE normal High: dx of DVT / PE Normal: no dx of DVT / PE Smoking High Risk High: Current smoker Normal: Non smoker Narcotics Use High Risk High:NarxCare >=300 Moderate: 100-299 Normal: 0-99 Depression High Risk High: PHQ-9 >14 Moderate: PHQ-9 5-14 Normal: PHQ-9 < 5 Area Deprivation Index (REGINA) Unknown Risk High: REGINA Score > 75 Moderate: REGINA 50-75 Normal: REGINA < 50 Diabetes: Nikkie has been diagnosed with Type 2 Diabetes. Her last Hemoglobin A1C was 10 - 03/07/2025. Pt is followed by Georgina Gonsalez for Type 2 Diabetes - last seen on 03/14/2025. Consult to the Endocrinology and Metabolic [place] (QUIN) recommended prior to surgery. Nikkie is a smoker. It is recommended that she receive a consult for smoking cessation and complete 30 days of no tobacco use prior to surgery. Area Deprivation Index (REGINA) 04/12/2022 01/15/2023 REGINA Score National Score 87 90 Patient Health Questionnaire (PHQ-9) 10/12/2024 10/29/2024 12/24/2024 PHQ-9 PHQ-2 Score 4 2 4 PHQ-9 Score 15 10 16 (0-4) minimal depression, (5-9) mild depression, (10-14) moderate depression, (15-19) moderately severe depression, (20-27) severe depression Bone Density Risk Screen Nikkie Buck is at risk for bone loss. Her last bone densitometry on file was completed on 11/24/2024. Risk Factors: Dx of Osteoporosis Use of Proton Pump Inhibitors History of falls Dx of Chronic Kidney Disease (CKD) History of Fracture (Vertebral Fracture) Current Smoker Prednisone or use of systemic steroids Additional Risk Factors COPD NarxCare score NARX Narcotics: 470 (05/17/2025 11:55 AM) Recommend a consult to Chronic Pain Management. Obstructive Sleep Apnea (FRANCISCO) Malnutrition: No Malnutrition Screening Tool (MST) score on file- please complete the MST screening tool (click here to open) and refresh the note. ACTIVE PROBLEM LIST Uncontrolled Type 2 Diabetes Mellitus With Hyperglycemia (Hcc) Chronic Midline Low Back Pain With Sciatica Chronic Obstructive Pulmonary Disease, Unspecified (Hcc) Hyperlipidemia, Unspecified Tobacco Use Abnormal CT Scan, Kidney Dyspepsia Epigastric Pain Right Upper Quadrant Abdominal Pain Chronic Gastritis Without Bleeding Gastric Wall Thickening Primary Hypertension Neuropathy Back Pain With History of Spinal Surgery Francisco (Obstructive Sleep Apnea) Dm Gastroparesis (Hcc) Abdominal Bloating Obesity Postlaminectomy Syndrome of Lumbar Region Sciatica Nicotine use disorder, F17.2 Osteoporosis Closed Displaced Comminuted Fracture of Shaft of Left Femur (Hcc) Presence of Right Artificial Hip Joint SUBJECTIVE CHIEF COMPLAINT: Hip Pain HPI: Nikkie Buck is a 59 year old patient . Nikkie Buck has had progressive problems with the hip(s) most of the day over the past 1 year(s) interfering with activities which include walking 2 blocks. The problem began limiting activities 1-3 years ago. PROMIS Physical Function Score Descriptive Summary for PROMIS Physical Function T-score = 31 (Percentile 3) Unable - Do 2 hours of physical labor Unable - Walk at a normal speed. 09/13/2022 10/12/2024 12/24/2024 PROMIS CAT Physical Function T-Score 29 (severe dysfunction) 29 (severe dysfunction) 31 (moderate dysfunction) Percentile 2 2 3 FUNCTIONAL STATUS: Do moderate work around the house such as vacuuming, sweeping floors, or carrying in groceries (3.50 METs) PREVIOUS TREATMENTS: Past anti-inflammatory medications (not necessarily for this reason for visit): dexamethasone sodium phosphate, diclofenac sodium, hydrocortisone sodium succ/PF, ketorolac tromethamine, methylprednisolone sod succ/PF Physical Therapy: PT Three Months or Greater 1-2 times per week REVIEW OF SYSTEMS: GENERAL: Denies fever, chills malaise and weight loss.. PAIN ASSESSMENT: See HPI. CARDIOVASCULAR: Denies chest pain, history of A-fib, valvular disease, hypertension, CHF or pacemaker/ICD.. RESPIRATORY: Denies SOB, sputum production, dyspnea, COPD and hemoptysis.. MUSCULOSKELETAL: See HPI. NEURO: Denies CVA, seizures, headaches.. ENDOCRINE: Denies diabetes, thyroid disease.. 11/26/2023 Malnutrition Screening Tool (MST) Lost Weight Recently Without Trying? If Yes, Amount of Weight Loss(lbs) 0:No Eating Poorly Because of a Decreased Appetite 0:No Weight Loss Score (Calculated) 0 Appetite Score (Calculated) 0 Total MST Score (Calculated) 0 Data saved with a previous flowsheet row definition PAST MEDICAL HISTORY Diagnosis Date Abdominal bloating 10/13/2023 Arthritis COPD (chronic obstructive pulmonary disease) (HCC) Diabetes (HCC) Hypertension Median arcuate ligament syndrome Sleep apnea PAST SURGICAL HISTORY Procedure Laterality Date ANKLE SURGERY HX Left BACK SURGERY HX Bilateral DELIVERY ONLY EGD W/O BRSH SPEC VARICIES INJ 02/21/2023 GI TRANSIT AND PRES SARAH WIRELESS CAPSULE W/INTERP 09/12/2023 Smart Pill, Dr. Vega PAST SURGICAL HISTORY OF N/A 12/03/2024 EGD/G Poem surgery REVISE MEDIAN N/CARPAL TUNNEL SURG Bilateral TOTAL HIP REPLACEMENT Right VAGINAL HYSTERECTOMY FAMILY HISTORY Problem Relation Age of Onset Hypertension Mother Lung Cancer Mother Cancer Father Lung Cancer Sister Diabetes Sister Stroke Sister Hypertension Paternal Grandmother Diabetes Maternal Uncle Diabetes Paternal Aunt Social History Tobacco Use Smoking status: Every Day Current packs/day: 1.00 Types: Cigarettes Smokeless tobacco: Never Tobacco comments: 3/4's of a pack daily Vaping Use Vaping status: Never Used Substance Use Topics Alcohol use: Never Drug use: Never ALLERGIES: Duloxetine, Nsaids (Non-Steroidal Anti-Inflammatory Drug), Penicillins, Pregabalin, Amlodipine, Celebrex [Celecoxib], Penicillin G, Ibuprofen, and Tylenol [Acetaminophen] MEDICATIONS: gabapentin (NEURONTIN) 800 mg tablet Take 1 tablet by mouth four times daily for 60 days. omeprazole (PRILOSEC) 40 mg capsule Take 1 capsule by mouth two times a day. oxyCODONE IR (ROXICODONE) 10 mg tab Take 1 tablet by mouth three times a day as needed for pain for up to 7 days. fluticasone-salmeterol (ADVAIR DISKUS) 100-50 mcg/dose inhaler Inhale 1 puff as instructed two times a day. Blood-Glucose Sensor (FREESTYLE KATHERINE 3 PLUS SENSOR) jaguar Apply new sensor every fifteen (15) days to upper arm. insulin glargine 100 unit/mL (3 mL) Inject 30 Units subcutaneously daily at bedtime. FLUoxetine (PROZAC) 20 mg capsule Take 1 capsule by mouth once daily. insulin lispro (HUMALOG KWIKPEN) 100 unit/mL Take 5 units for glucose 250 or greater at mealtime empagliflozin (JARDIANCE) 10 mg tablet Take 1 tablet by mouth daily with breakfast. lisinopril (ZESTRIL) 5 mg tablet Take 1 tablet by mouth once daily. tiZANidine (ZANAFLEX) 4 mg tablet Take 1 tablet by mouth three times a day as needed. albuterol HFA (PROVENTIL HFA, VENTOLIN HFA) 90 mcg/actuation inhaler Inhale 2 puffs as instructed every 4 hours as needed for wheezing/shortness of breath. polyethylene glycol 3350 17 gram/dose powder Take 17 g by mouth once daily as needed for constipation. Cholecalciferol, Vitamin D3, 50 mcg (2,000 unit) cap Take 1 capsule by mouth once daily. Insulin Willow, Disposable, (BD ULTRA-FINE PADMINI PEN NEEDLE) 32 gauge x 5/32" 1 Each three times a day. hydrALAZINE (APRESOLINE) 50 mg tablet Take 1 tablet by mouth four times daily. Hold if blood pressure is less than 110/60 (Patient taking differently: Take 50 mg by mouth once daily. Hold if blood pressure is less than 110/60) ondansetron orally disintegrating (ZOFRAN ODT) 8 mg disintegrating tablet Take 1 tablet by mouth every 8 hours as needed for nausea/vomiting. blood sugar diagnostic (ONETOUCH VERIO TEST STRIPS) test strip 1 Strip four times daily. Use as instructed loratadine (CLARITIN) 10 mg tablet Take 1 tablet by mouth once daily. CPAP/BIPAP/OTHER Type .CPAPSettings into a note to see current settings/supplies/DME information. OBJECTIVE PHYSICAL EXAM There were no vitals taken for this visit. All other systems deferred. GENERAL: Appears healthy, well-nourished, no deformities. HABITUS: Thin GAIT: Antalgic to the right HIP EXAM: All incisions are well-healed in the left and right hip with no signs of infection. Left: ROM: Extension: full extension Flexion: 80 degrees Internal Rotation: 5 degrees External Rotation: 15 degrees Abduction: 20 degrees Adduction: 15 degrees Strength: Abduction 4/5 and Flexion 4/5 Palpation: Tenderness over left greater trochanter Log roll: non-painful. Straight leg raise: Negative Neurovascular Status: Sensation Intact, Moves foot and ankle up AND down, and 2+ dorsalis pedis Right: ROM: Extension: full extension Flexion: 80 degrees Internal Rotation: 5 degrees External Rotation: 15 degrees Abduction: 20 degrees Adduction: 15 degrees Strength: Abduction 4/5 and Flexion 4/5 Palpation: Tenderness over right greater trochanter and ITB Log roll: non-painful. Straight leg raise: Negative Neurovascular Status: Sensation Intact, Moves foot and ankle up AND down, and 2+ dorsalis pedis DATA: XR of the left hip shows interval healing and callus formation of the subtroch fracture with no change and position of the components. There is bony union. Mild knee OA, minimal hip OA Diagnostic tests reviewed for today's visit: The following conditions were addressed during the office visit today: Smoking - Cessation counseling was performed. We discussed the risks associated with smoking and Total Joint Arthroplasty. Smoking cessation consult will be completed to follow up on the plan of care. Diabetes - HgbA1C optimization - we discussed the importance of good glucose control for overall health and Total Joint Arthroplasty. I spent a total of approximately 25 minutes on the date of the service which included preparing to see the patient, [id number] patient care, completing clinical documentation, obtaining and/or reviewing separately obtained history, performing a medically appropriate examination, counseling and educating the patient/family/caregiver, ordering medications, tests, or procedures, independently interpreting results (not separately reported), communicating results to the patient/family/caregiver, and care coordination (not separately reported). Allergies As of Date: 05/18/2025 Noted Allergy Reaction DULOXETINE 06/15/2021 7 - Swelling 14 - Other: See Comments Comments: Other reaction(s): swelling Other reaction(s): Unknown Other reaction(s): swelling NSAIDS (NON-STEROIDAL ANTI-INFLAM*08/15/2020 8 - GI Upset Comments: Other reaction(s): GI Upset Other reaction(s): cramping, GI Upset, Other (See Comments), Upset Stomach Severe stomach pain Other reaction(s): GI Upset PENICILLINS 08/15/2020 2 - Rash 14 - Other: See Comments Comments: Other reaction(s): GI Upset, hives, horrible taste in mouth Other reaction(s): GI Upset, GI Upset, horrible taste in mouth, leaves a bad taste in her mouth., NEEDS FOLLOW-UP Other reaction(s): GI Upset, hives, horrible taste in mouth PREGABALIN 08/15/2020 7 - Swelling 14 - Other: See Comments 16 - Unknown Comments: Other reaction(s): swelling, Swelling Other reaction(s): Swelling, Unknown Other reaction(s): swelling, Swelling AMLODIPINE 06/22/2024 5 - Intolerance Comments: leg swelling at 10 mg CELEBREX (CELECOXIB) 08/09/2024 5 - Intolerance Comments: feet and leg swelling PENICILLIN G 11/11/2021 8 - GI Upset IBUPROFEN 11/11/2021 8 - GI Upset Comments: Vomiting cramping TYLENOL (ACETAMINOPHEN) 10/27/2022 8 - GI Upset Date Reviewed: 05/18/2025 Reviewed by: Eden Hernandez LPN - Fully Assessed Reason for Visit: Pain [78] Established Patient [175] Primary Visit Diagnosis:Painful orthopaedic hardware [T84.84XA] Other Visit Diagnosis:Greater trochanteric bursitis, unspecified laterality [M70.60] Prescriptions as of 05/18/2025 - gabapentin (NEURONTIN) 800 mg tablet Take 1 tablet by mouth four times daily for 60 days. - omeprazole (PRILOSEC) 40 mg capsule Take 1 capsule by mouth two times a day. - oxyCODONE IR (ROXICODONE) 10 mg tab Take 1 tablet by mouth three times a day as needed for pain for up to 7 days. - fluticasone-salmeterol (ADVAIR DISKUS) 100-50 mcg/dose inhaler Inhale 1 puff as instructed two times a day. - Blood-Glucose Sensor (FREESTYLE KATHERINE 3 PLUS SENSOR) jaguar Apply new sensor every fifteen (15) days to upper arm. - insulin glargine 100 unit/mL (3 mL) Inject 30 Units subcutaneously daily at bedtime. - FLUoxetine (PROZAC) 20 mg capsule Take 1 capsule by mouth once daily. - insulin lispro (HUMALOG KWIKPEN) 100 unit/mL Take 5 units for glucose 250 or greater at mealtime - empagliflozin (JARDIANCE) 10 mg tablet Take 1 tablet by mouth daily with breakfast. - lisinopril (ZESTRIL) 5 mg tablet Take 1 tablet by mouth once daily. - tiZANidine (ZANAFLEX) 4 mg tablet Take 1 tablet by mouth three times a day as needed. - albuterol HFA (PROVENTIL HFA, VENTOLIN HFA) 90 mcg/actuation inhaler Inhale 2 puffs as instructed every 4 hours as needed for wheezing/shortness of breath. - polyethylene glycol 3350 17 gram/dose powder Take 17 g by mouth once daily as needed for constipation. - Cholecalciferol, Vitamin D3, 50 mcg (2,000 unit) cap Take 1 capsule by mouth once daily. - Insulin Willow, Disposable, (BD ULTRA-FINE PADMINI PEN NEEDLE) 32 gauge x 5/32" 1 Each three times a day. - hydrALAZINE (APRESOLINE) 50 mg tablet Take 1 tablet by mouth four times daily. Hold if blood pressure is less than 110/60 - ondansetron orally disintegrating (ZOFRAN ODT) 8 mg disintegrating tablet Take 1 tablet by mouth every 8 hours as needed for nausea/vomiting. - blood sugar diagnostic ([employer]UCH VERIO TEST STRIPS) test strip 1 Strip four times daily. Use as instructed - loratadine (CLARITIN) 10 mg tablet Take 1 tablet by mouth once daily. - CPAP/BIPAP/OTHER Type .CPAPSettings into a note to see current settings/supplies/DME information. Problem List As Of Date 05/18/2025 Noted Resolved Uncontrolled type 2 diabetes mellitus with hype*08/28/2022 Chronic midline low back pain with sciatica [M5*08/28/2022 Chronic obstructive lung disease (HCC) [J44.9] 10/18/2022 11/05/2022 Chronic obstructive pulmonary disease, unspecif*11/30/2021 Hyperlipidemia, unspecified [E78.5] 06/15/2021 Tobacco use [Z72.0] 11/05/[address] scan, kidney [R93.429] 11/05/2022 Dyspepsia [R10.13] 02/21/2023 Epigastric pain [R10.13] 02/21/2023 Right upper quadrant abdominal pain [R10.11] 02/21/2023 Chronic gastritis without bleeding [K29.50] 03/12/2023 Gastric wall thickening [K31.89] 03/12/2023 Primary hypertension [I10] 06/11/2023 Neuropathy [G62.9] 06/11/2023 Back pain with history of spinal surgery [M54.9*06/11/2023 FRANCISCO (obstructive sleep apnea) [G47.33] 06/11/2023 DM gastroparesis (HCC) [E11.43, K31.84] 07/04/2023 Abdominal bloating [R14.0] 10/13/2023 Obesity [E66.9] 10/13/2023 Diagnosed: 10/13/2023 Postlaminectomy syndrome of lumbar region [M96.*10/31/2022 Diagnosed: 10/13/2023 Sciatica [M54.30] 11/18/2022 Diagnosed: 10/13/2023 Fall at home, initial encounter [W19.XXXA, Y92.*11/26/2023 12/04/2023 Nicotine use disorder, F17.2 [F17.200] 11/28/2023 Osteoporosis [M81.0] 08/20/2024 Closed displaced comminuted fracture of shaft o*11/08/2024 Presence of right artificial hip joint [Z96.641]11/08/2024 Level of Service: OFFICE/OUTPATIENT ESTABLISHED LOW [facility] 20 MIN [01996] Additional E/M codes: VISIT CPLX INHERENT EANDM ASSOC WITH MED * Encounter Status:Closed by NAVI RODRÍGUEZ on 05/18/25 XR FEMUR 2V AP/LAT LT Observed: 05/18/20 9:05 AM Status: F Source: [facility] * * *Final Report* * * DATE OF EXAM: May 18 2025 9:05AM SOURAV [id number] - XR FEMUR 2V AP/LAT LT / PROCEDURE REASON: T84.84XA-Painful orthopaedic hardware * * * * Physician Interpretation * * * * PROCEDURE: Left femur INDICATION: Painful orthopaedic hardware .left femur pain TECHNIQUE: XR FEMUR 2V AP/LAT LT COMPARISON: 10/14/2024 and left hip 04/14/2025 FINDINGS: Healed and well aligned femoral fracture with intact fixation hardware. No hardware loosening or fracture. Mild left hip and knee osteoarthrosis. Patella is not optimally visualized but previously noted patellar fracture appears mostly if not completely healed. No knee joint effusion. Degenerative change in the lower lumbar spine IMPRESSION: No acute abnormality Oracle Programmer Analyst: GWENDOLYN Transcribe Date/Time: May 24 2025 8:12A Dictated by : SANDEEP WIN MD This examination was interpreted and the report reviewed and electronically signed by: SANDEEP WIN MD on May 24 2025 8:14AM EST [id number] Observed: 05/18/2025 8:40 AM Status: COMPLETED Source: [facility] HNO ID: [id number] Author: ELIAN SHEEHAN Tech Service: ? Author Type: Police Aide Type: Progress Notes Filed: 05/18/2025 09:03 Note Text: Radiology Service Progress Note PATIENT NAME: Nikkie Buck DATE OF SERVICE: May 18, 2025 TIME: 9:03 AM PATIENT IDENTITY VERIFICATION COMPLETED USING TWO (2) IDENTIFIERS: Name and Date of confirmed by patient verbally. FALL SCREENING: Has the patient had 2 falls in the last year or 1 fall with injury or currently using an Ambulatory Assistive Device (Walker, Cane, Wheelchair, Crutches, etc.)? Yes, Patient High Risk for Falls What interventions were put in place to prevent falls during this visit? Instructed Patient to Call for Help if Needed, Offered Assistance with Transfers/Clothing, Instructed Patient to Remain Seated (Not on Exam Table) Until Exam, and Increased Observations by Caregivers PATIENT GENDER DATA: Assigned female at . status: : No status: NO. PATIENT RELEVANT IMPLANT DATA REVIEWED: Not Applicable PATIENT PRESENTS WITH AN IMPLANTABLE OR ATTACHED WHARF TALLY CLERK: No RADIOLOGY DEPARTMENT: General X-ray: Exam(s) Completed: Lower Extremity X-Ray(s): Femur, Left PERIPHERAL IV DATA: Not applicable SIGNED BY: Emiliano Hassan May 18, 2025 9:03 AM CNPN Observed: 05/17/2025 12:00 AM Status: COMPLETED Source: [facility] Telephone (FAMPWS) NIKKIE BUCK ([id number]) 1965 F Date Time Provider Department 05/17/25 RISSA HANKSWS During your visit today, we recorded the following information about you: Adam Wong 05/17/2025 11:44 AM Signed Opened in error Allergies As of Date: 05/17/2025 Noted Allergy Reaction DULOXETINE 06/15/2021 7 - Swelling 14 - Other: See Comments Comments: Other reaction(s): swelling Other reaction(s): Unknown Other reaction(s): swelling NSAIDS (NON-STEROIDAL ANTI-INFLAM*08/15/2020 8 - GI Upset Comments: Other reaction(s): GI Upset Other reaction(s): cramping, GI Upset, Other (See Comments), Upset Stomach Severe stomach pain Other reaction(s): GI Upset PENICILLINS 08/15/2020 2 - Rash 14 - Other: See Comments Comments: Other reaction(s): GI Upset, hives, horrible taste in mouth Other reaction(s): GI Upset, GI Upset, horrible taste in mouth, leaves a bad taste in her mouth., NEEDS FOLLOW-UP Other reaction(s): GI Upset, hives, horrible taste in mouth PREGABALIN 08/15/2020 7 - Swelling 14 - Other: See Comments 16 - Unknown Comments: Other reaction(s): swelling, Swelling Other reaction(s): Swelling, Unknown Other reaction(s): swelling, Swelling AMLODIPINE 06/22/2024 5 - Intolerance Comments: leg swelling at 10 mg CELEBREX (CELECOXIB) 08/09/2024 5 - Intolerance Comments: feet and leg swelling PENICILLIN G 11/11/2021 8 - GI Upset IBUPROFEN 11/11/2021 8 - GI Upset Comments: Vomiting cramping TYLENOL (ACETAMINOPHEN) 10/27/2022 8 - GI Upset Date Reviewed: 03/17/2025 Reviewed by: Alanis Warren [facility] - Fully Assessed Prescriptions as of 05/17/2025 - oxyCODONE IR (ROXICODONE) 10 mg tab Take 1 tablet by mouth three times a day as needed for pain for up to 7 days. Patient should start on May 10, 2025. - fluticasone-salmeterol (ADVAIR DISKUS) 100-50 mcg/dose inhaler Inhale 1 puff as instructed two times a day. - Blood-Glucose Sensor (FREESTYLE KATHERINE 3 PLUS SENSOR) jaguar Apply new sensor every fifteen (15) days to upper arm. - insulin glargine 100 unit/mL (3 mL) Inject 30 Units subcutaneously daily at bedtime. - FLUoxetine (PROZAC) 20 mg capsule Take 1 capsule by mouth once daily. - insulin lispro (HUMALOG KWIKPEN) 100 unit/mL Take 5 units for glucose 250 or greater at mealtime - empagliflozin (JARDIANCE) 10 mg tablet Take 1 tablet by mouth daily with breakfast. - lisinopril (ZESTRIL) 5 mg tablet Take 1 tablet by mouth once daily. - tiZANidine (ZANAFLEX) 4 mg tablet Take 1 tablet by mouth three times a day as needed. - gabapentin (NEURONTIN) 800 mg tablet Take 1 tablet by mouth four times daily for 90 days. - albuterol HFA (PROVENTIL HFA, VENTOLIN HFA) 90 mcg/actuation inhaler Inhale 2 puffs as instructed every 4 hours as needed for wheezing/shortness of breath. - polyethylene glycol 3350 17 gram/dose powder Take 17 g by mouth once daily as needed for constipation. - Cholecalciferol, Vitamin D3, 50 mcg (2,000 unit) cap Take 1 capsule by mouth once daily. - Insulin Willow, Disposable, (BD ULTRA-FINE PADMINI PEN NEEDLE) 32 gauge x 5/32" 1 Each three times a day. - hydrALAZINE (APRESOLINE) 50 mg tablet Take 1 tablet by mouth four times daily. Hold if blood pressure is less than 110/60 - ondansetron orally disintegrating (ZOFRAN ODT) 8 mg disintegrating tablet Take 1 tablet by mouth every 8 hours as needed for nausea/vomiting. - omeprazole (PRILOSEC) 40 mg capsule Take 1 capsule by mouth two times a day. - blood sugar diagnostic (ONETOUCH VERIO TEST STRIPS) test strip 1 Strip four times daily. Use as instructed - loratadine (CLARITIN) 10 mg tablet Take 1 tablet by mouth once daily. - CPAP/BIPAP/OTHER Type .CPAPSettings into a note to see current settings/supplies/DME information. Problem List As Of Date 05/17/2025 Noted Resolved Uncontrolled type 2 diabetes mellitus with hype*08/28/2022 Chronic midline low back pain with sciatica [M5*08/28/2022 Chronic obstructive lung disease (HCC) [J44.9] 10/18/2022 11/05/2022 Chronic obstructive pulmonary disease, unspecif*11/30/2021 Hyperlipidemia, unspecified [E78.5] 06/15/2021 Tobacco use [Z72.0] 11/05/[address] scan, kidney [R93.429] 11/05/2022 Dyspepsia [R10.13] 02/21/2023 Epigastric pain [R10.13] 02/21/2023 Right upper quadrant abdominal pain [R10.11] 02/21/2023 Chronic gastritis without bleeding [K29.50] 03/12/2023 Gastric wall thickening [K31.89] 03/12/2023 Primary hypertension [I10] 06/11/2023 Neuropathy [G62.9] 06/11/2023 Back pain with history of spinal surgery [M54.9*06/11/2023 FRANCISCO (obstructive sleep apnea) [G47.33] 06/11/2023 DM gastroparesis (HCC) [E11.43, K31.84] 07/04/2023 Abdominal bloating [R14.0] 10/13/2023 Obesity [E66.9] 10/13/2023 Diagnosed: 10/13/2023 Postlaminectomy syndrome of lumbar region [M96.*10/31/2022 Diagnosed: 10/13/2023 Sciatica [M54.30] 11/18/2022 Diagnosed: 10/13/2023 Fall at home, initial encounter [W19.XXXA, Y92.*11/26/2023 12/04/2023 Nicotine use disorder, F17.2 [F17.200] 11/28/2023 Osteoporosis [M81.0] 08/20/2024 Closed displaced comminuted fracture of shaft o*11/08/2024 Presence of right artificial hip joint [Z96.641]11/08/2024 Encounter Status:Closed by ADAM WONG on 05/17/25 PROGRESS Observed: 04/27/2025 9:49 AM Status: COMPLETED Source: [facility] HNO ID: [id number] Author: ?, ?, ? Service: ? Author Type: ? Type: Progress Notes Filed: 04/27/2025 09:49 Note Text: Spoke with patient and she declined to schedule at this time, she has other health concerns at the moment she wants to get resolved first. TAMMY Observed: 04/26/2025 12:00 AM Status: COMPLETED Source: [facility] Patient Outreach (ASWSTR) NIKKIE BUCK ([id number]) 1965 F Date Time Provider Department 04/26/25 RISSA HANKS ASWSTR During your visit today, we recorded the following information about you: Xiang Hamilton 04/27/2025 9:49 AM Signed Spoke with patient and she declined to schedule at this time, she has other health concerns at the moment she wants to get resolved first. Allergies As of Date: 04/26/2025 Noted Allergy Reaction DULOXETINE 06/15/2021 7 - Swelling 14 - Other: See Comments Comments: Other reaction(s): swelling Other reaction(s): Unknown Other reaction(s): swelling NSAIDS (NON-STEROIDAL ANTI-INFLAM*08/15/2020 8 - GI Upset Comments: Other reaction(s): GI Upset Other reaction(s): cramping, GI Upset, Other (See Comments), Upset Stomach Severe stomach pain Other reaction(s): GI Upset PENICILLINS 08/15/2020 2 - Rash 14 - Other: See Comments Comments: Other reaction(s): GI Upset, hives, horrible taste in mouth Other reaction(s): GI Upset, GI Upset, horrible taste in mouth, leaves a bad taste in her mouth., NEEDS FOLLOW-UP Other reaction(s): GI Upset, hives, horrible taste in mouth PREGABALIN 08/15/2020 7 - Swelling 14 - Other: See Comments 16 - Unknown Comments: Other reaction(s): swelling, Swelling Other reaction(s): Swelling, Unknown Other reaction(s): swelling, Swelling AMLODIPINE 06/22/2024 5 - Intolerance Comments: leg swelling at 10 mg CELEBREX (CELECOXIB) 08/09/2024 5 - Intolerance Comments: feet and leg swelling PENICILLIN G 11/11/2021 8 - GI Upset IBUPROFEN 11/11/2021 8 - GI Upset Comments: Vomiting cramping TYLENOL (ACETAMINOPHEN) 10/27/2022 8 - GI Upset Date Reviewed: 03/17/2025 Reviewed by: Alanis Warren RPh - Fully Assessed Reason for Visit: Outpatient Colonoscopy [482] Cmt: Patient is overdue for colorectal cancer screening since 10/16/2024. (had colonoscopy done 10/16/2023 AND needs 1 year followup. History of polyps. Please schedule open access colonoscopy. 29/04/2025 Primary Visit Diagnosis:Screening for colorectal cancer [Z12.11, Z12.12] Prescriptions as of 04/27/2025 - fluticasone-salmeterol (ADVAIR DISKUS) 100-50 mcg/dose inhaler Inhale 1 puff as instructed two times a day. - Blood-Glucose Sensor (FREESTYLE KATHERINE 3 PLUS SENSOR) jaguar Apply new sensor every fifteen (15) days to upper arm. - insulin glargine 100 unit/mL (3 mL) Inject 30 Units subcutaneously daily at bedtime. - FLUoxetine (PROZAC) 20 mg capsule Take 1 capsule by mouth once daily. - insulin lispro (HUMALOG KWIKPEN) 100 unit/mL Take 5 units for glucose 250 or greater at mealtime - empagliflozin (JARDIANCE) 10 mg tablet Take 1 tablet by mouth daily with breakfast. - lisinopril (ZESTRIL) 5 mg tablet Take 1 tablet by mouth once daily. - tiZANidine (ZANAFLEX) 4 mg tablet Take 1 tablet by mouth three times a day as needed. - gabapentin (NEURONTIN) 800 mg tablet Take 1 tablet by mouth four times daily for 90 days. - albuterol HFA (PROVENTIL HFA, VENTOLIN HFA) 90 mcg/actuation inhaler Inhale 2 puffs as instructed every 4 hours as needed for wheezing/shortness of breath. - polyethylene glycol 3350 17 gram/dose powder Take 17 g by mouth once daily as needed for constipation. - Cholecalciferol, Vitamin D3, 50 mcg (2,000 unit) cap Take 1 capsule by mouth once daily. - Insulin Willow, Disposable, (BD ULTRA-FINE PADMINI PEN NEEDLE) 32 gauge x 5/32" 1 Each three times a day. - hydrALAZINE (APRESOLINE) 50 mg tablet Take 1 tablet by mouth four times daily. Hold if blood pressure is less than 110/60 - ondansetron orally disintegrating (ZOFRAN ODT) 8 mg disintegrating tablet Take 1 tablet by mouth every 8 hours as needed for nausea/vomiting. - omeprazole (PRILOSEC) 40 mg capsule Take 1 capsule by mouth two times a day. - blood sugar diagnostic ([employer]UCH VERIO TEST STRIPS) test strip 1 Strip four times daily. Use as instructed - loratadine (CLARITIN) 10 mg tablet Take 1 tablet by mouth once daily. - CPAP/BIPAP/OTHER Type .CPAPSettings into a note to see current settings/supplies/DME information. Problem List As Of Date 04/26/2025 Noted Resolved Uncontrolled type 2 diabetes mellitus with hype*08/28/2022 Chronic midline low back pain with sciatica [M5*08/28/2022 Chronic obstructive lung disease (HCC) [J44.9] 10/18/2022 11/05/2022 Chronic obstructive pulmonary disease, unspecif*11/30/2021 Hyperlipidemia, unspecified [E78.5] 06/15/2021 Tobacco use [Z72.0] 11/05/[address] scan, kidney [R93.429] 11/05/2022 Dyspepsia [R10.13] 02/21/2023 Epigastric pain [R10.13] 02/21/2023 Right upper quadrant abdominal pain [R10.11] 02/21/2023 Chronic gastritis without bleeding [K29.50] 03/12/2023 Gastric wall thickening [K31.89] 03/12/2023 Primary hypertension [I10] 06/11/2023 Neuropathy [G62.9] 06/11/2023 Back pain with history of spinal surgery [M54.9*06/11/2023 FRANCISCO (obstructive sleep apnea) [G47.33] 06/11/2023 DM gastroparesis (HCC) [E11.43, K31.84] 07/04/2023 Abdominal bloating [R14.0] 10/13/2023 Obesity [E66.9] 10/13/2023 Diagnosed: 10/13/2023 Postlaminectomy syndrome of lumbar region [M96.*10/31/2022 Diagnosed: 10/13/2023 Sciatica [M54.30] 11/18/2022 Diagnosed: 10/13/2023 Fall at home, initial encounter [W19.XXXA, Y92.*11/26/2023 12/04/2023 Nicotine use disorder, F17.2 [F17.200] 11/28/2023 Osteoporosis [M81.0] 08/20/2024 Closed displaced comminuted fracture of shaft o*11/08/2024 Presence of right artificial hip joint [Z96.641]11/08/2024 Encounter Status:Closed by XIANG HAMILTON on 04/27/25 PROGRESS Observed: 04/18/2025 10:30 AM Status: COMPLETED Source: [facility] HNO ID: [id number] Author: NAVI RODRÍGUEZ MD Service: ? Author Type: Physician Type: Progress Notes Filed: 04/19/2025 07:07 Note Text: Canceled CNOV Observed: 04/18/2025 10:30 AM Status: COMPLETED Source: [facility] Office Visit (ORMDNA) NIKKIE BUCK ([id number]) 1965 F Date Time Provider Department 04/18/25 10:30 AM NAVI RODRÍGUEZ During your visit today, we recorded the following information about you: Navi Rodríguez MD 04/19/2025 7:07 AM Signed Canceled Allergies As of Date: 04/18/2025 Noted Allergy Reaction DULOXETINE 06/15/2021 7 - Swelling 14 - Other: See Comments Comments: Other reaction(s): swelling Other reaction(s): Unknown Other reaction(s): swelling NSAIDS (NON-STEROIDAL ANTI-INFLAM*08/15/2020 8 - GI Upset Comments: Other reaction(s): GI Upset Other reaction(s): cramping, GI Upset, Other (See Comments), Upset Stomach Severe stomach pain Other reaction(s): GI Upset PENICILLINS 08/15/2020 2 - Rash 14 - Other: See Comments Comments: Other reaction(s): GI Upset, hives, horrible taste in mouth Other reaction(s): GI Upset, GI Upset, horrible taste in mouth, leaves a bad taste in her mouth., NEEDS FOLLOW-UP Other reaction(s): GI Upset, hives, horrible taste in mouth PREGABALIN 08/15/2020 7 - Swelling 14 - Other: See Comments 16 - Unknown Comments: Other reaction(s): swelling, Swelling Other reaction(s): Swelling, Unknown Other reaction(s): swelling, Swelling AMLODIPINE 06/22/2024 5 - Intolerance Comments: leg swelling at 10 mg CELEBREX (CELECOXIB) 08/09/2024 5 - Intolerance Comments: feet and leg swelling PENICILLIN G 11/11/2021 8 - GI Upset IBUPROFEN 11/11/2021 8 - GI Upset Comments: Vomiting cramping TYLENOL (ACETAMINOPHEN) 10/27/2022 8 - GI Upset Date Reviewed: 03/17/2025 Reviewed by: Alanis Warren [facility] - Fully Assessed Primary Visit Diagnosis:Painful orthopaedic hardware [T84.84XA] Order(s):XR FEMUR GENERAL 2V AP/LAT LEFT [5100208] Order #: [id number] FUTURE Prescriptions as of 04/19/2025 - oxyCODONE IR (ROXICODONE) 10 mg tab Take 1 tablet by mouth three times a day as needed for pain for up to 7 days. Patient should start on April 19, 2025. - fluticasone-salmeterol (ADVAIR DISKUS) 100-50 mcg/dose inhaler Inhale 1 puff as instructed two times a day. - Blood-Glucose Sensor (FREESTYLE KATHERINE 3 PLUS SENSOR) jaguar Apply new sensor every fifteen (15) days to upper arm. - insulin glargine 100 unit/mL (3 mL) Inject 30 Units subcutaneously daily at bedtime. - FLUoxetine (PROZAC) 20 mg capsule Take 1 capsule by mouth once daily. - insulin lispro (HUMALOG KWIKPEN) 100 unit/mL Take 5 units for glucose 250 or greater at mealtime - empagliflozin (JARDIANCE) 10 mg tablet Take 1 tablet by mouth daily with breakfast. - lisinopril (ZESTRIL) 5 mg tablet Take 1 tablet by mouth once daily. - tiZANidine (ZANAFLEX) 4 mg tablet Take 1 tablet by mouth three times a day as needed. - gabapentin (NEURONTIN) 800 mg tablet Take 1 tablet by mouth four times daily for 90 days. - albuterol HFA (PROVENTIL HFA, VENTOLIN HFA) 90 mcg/actuation inhaler Inhale 2 puffs as instructed every 4 hours as needed for wheezing/shortness of breath. - polyethylene glycol 3350 17 gram/dose powder Take 17 g by mouth once daily as needed for constipation. - Cholecalciferol, Vitamin D3, 50 mcg (2,000 unit) cap Take 1 capsule by mouth once daily. - Insulin Willow, Disposable, (BD ULTRA-FINE PADMINI PEN NEEDLE) 32 gauge x 5/32" 1 Each three times a day. - hydrALAZINE (APRESOLINE) 50 mg tablet Take 1 tablet by mouth four times daily. Hold if blood pressure is less than 110/60 - ondansetron orally disintegrating (ZOFRAN ODT) 8 mg disintegrating tablet Take 1 tablet by mouth every 8 hours as needed for nausea/vomiting. - omeprazole (PRILOSEC) 40 mg capsule Take 1 capsule by mouth two times a day. - blood sugar diagnostic (?TOUCH VERIO TEST STRIPS) test strip 1 Strip four times daily. Use as instructed - loratadine (CLARITIN) 10 mg tablet Take 1 tablet by mouth once daily. - CPAP/BIPAP/OTHER Type .CPAPSettings into a note to see current settings/supplies/DME information. Problem List As Of Date 04/18/2025 Noted Resolved Uncontrolled type 2 diabetes mellitus with hype*08/28/2022 Chronic midline low back pain with sciatica [M5*08/28/2022 Chronic obstructive lung disease (HCC) [J44.9] 10/18/2022 11/05/2022 Chronic obstructive pulmonary disease, unspecif*11/30/2021 Hyperlipidemia, unspecified [E78.5] 06/15/2021 Tobacco use [Z72.0] 11/05/[address] scan, kidney [R93.429] 11/05/2022 Dyspepsia [R10.13] 02/21/2023 Epigastric pain [R10.13] 02/21/2023 Right upper quadrant abdominal pain [R10.11] 02/21/2023 Chronic gastritis without bleeding [K29.50] 03/12/2023 Gastric wall thickening [K31.89] 03/12/2023 Primary hypertension [I10] 06/11/2023 Neuropathy [G62.9] 06/11/2023 Back pain with history of spinal surgery [M54.9*06/11/2023 FRANCISCO (obstructive sleep apnea) [G47.33] 06/11/2023 DM gastroparesis (HCC) [E11.43, K31.84] 07/04/2023 Abdominal bloating [R14.0] 10/13/2023 Obesity [E66.9] 10/13/2023 Diagnosed: 10/13/2023 Postlaminectomy syndrome of lumbar region [M96.*10/31/2022 Diagnosed: 10/13/2023 Sciatica [M54.30] 11/18/2022 Diagnosed: 10/13/2023 Fall at home, initial encounter [W19.XXXA, Y92.*11/26/2023 12/04/2023 Nicotine use disorder, F17.2 [F17.200] 11/28/2023 Osteoporosis [M81.0] 08/20/2024 Closed displaced comminuted fracture of shaft o*11/08/2024 Presence of right artificial hip joint [Z96.641]11/08/2024 Level of Service: UNLISTED EVALUATION AND MANAGEMENT SERVICE [31036] LOS History for Encounter Level of Service: OFFICE/OUTPATIENT [facility] 60 MINUTES[51518] Date AND Time: 04-18-2025 7:50 AM Recorded by User: NAVI RODRÍGUEZ Encounter Status:Closed by NAVI RODRÍGUEZ on 04/19/25 CNPN Observed: 04/18/2025 12:00 AM Status: COMPLETED Source: [facility] Telephone (INTMWS) NIKKIE BUCK ([id number]) 1965 F Date Time Provider Department 04/18/25 RISSA HANKS INTMWS During your visit today, we recorded the following information about you: Georgina Gonsalez, WINIFRED.PATIENT SERVICES COORDINATOR 04/18/2025 1:54 PM Signed Sent alternate inhaler as her previous was no longer covered by her insurance, please let her know. Samantha Armstrong LPN 04/18/2025 3:06 PM Signed No answer. Left providers message and ask to call with any questions or concerns. Allergies As of Date: 04/18/2025 Noted Allergy Reaction DULOXETINE 06/15/2021 7 - Swelling 14 - Other: See Comments Comments: Other reaction(s): swelling Other reaction(s): Unknown Other reaction(s): swelling NSAIDS (NON-STEROIDAL ANTI-INFLAM*08/15/2020 8 - GI Upset Comments: Other reaction(s): GI Upset Other reaction(s): cramping, GI Upset, Other (See Comments), Upset Stomach Severe stomach pain Other reaction(s): GI Upset PENICILLINS 08/15/2020 2 - Rash 14 - Other: See Comments Comments: Other reaction(s): GI Upset, hives, horrible taste in mouth Other reaction(s): GI Upset, GI Upset, horrible taste in mouth, leaves a bad taste in her mouth., NEEDS FOLLOW-UP Other reaction(s): GI Upset, hives, horrible taste in mouth PREGABALIN 08/15/2020 7 - Swelling 14 - Other: See Comments 16 - Unknown Comments: Other reaction(s): swelling, Swelling Other reaction(s): Swelling, Unknown Other reaction(s): swelling, Swelling AMLODIPINE 06/22/2024 5 - Intolerance Comments: leg swelling at 10 mg CELEBREX (CELECOXIB) 08/09/2024 5 - Intolerance Comments: feet and leg swelling PENICILLIN G 11/11/2021 8 - GI Upset IBUPROFEN 11/11/2021 8 - GI Upset Comments: Vomiting cramping TYLENOL (ACETAMINOPHEN) 10/27/2022 8 - GI Upset Date Reviewed: 03/17/2025 Reviewed by: Alanis Warren RPh - Fully Assessed Reason for Visit: Refill Request [94] Prescriptions as of 04/18/2025 - fluticasone-salmeterol (ADVAIR DISKUS) 100-50 mcg/dose inhaler Inhale 1 puff as instructed two times a day. - oxyCODONE IR (ROXICODONE) 10 mg tab Take 1 tablet by mouth three times a day as needed for pain for up to 7 days. - Blood-Glucose Sensor (FREESTYLE KATHERINE 3 PLUS SENSOR) jaguar Apply new sensor every fifteen (15) days to upper arm. - insulin glargine 100 unit/mL (3 mL) Inject 30 Units subcutaneously daily at bedtime. - FLUoxetine (PROZAC) 20 mg capsule Take 1 capsule by mouth once daily. - insulin lispro (HUMALOG KWIKPEN) 100 unit/mL Take 5 units for glucose 250 or greater at mealtime - empagliflozin (JARDIANCE) 10 mg tablet Take 1 tablet by mouth daily with breakfast. - lisinopril (ZESTRIL) 5 mg tablet Take 1 tablet by mouth once daily. - tiZANidine (ZANAFLEX) 4 mg tablet Take 1 tablet by mouth three times a day as needed. - gabapentin (NEURONTIN) 800 mg tablet Take 1 tablet by mouth four times daily for 90 days. - albuterol HFA (PROVENTIL HFA, VENTOLIN HFA) 90 mcg/actuation inhaler Inhale 2 puffs as instructed every 4 hours as needed for wheezing/shortness of breath. - polyethylene glycol 3350 17 gram/dose powder Take 17 g by mouth once daily as needed for constipation. - Cholecalciferol, Vitamin D3, 50 mcg (2,000 unit) cap Take 1 capsule by mouth once daily. - Insulin Willow, Disposable, (BD ULTRA-FINE PADMINI PEN NEEDLE) 32 gauge x 5/32" 1 Each three times a day. - hydrALAZINE (APRESOLINE) 50 mg tablet Take 1 tablet by mouth four times daily. Hold if blood pressure is less than 110/60 - ondansetron orally disintegrating (ZOFRAN ODT) 8 mg disintegrating tablet Take 1 tablet by mouth every 8 hours as needed for nausea/vomiting. - omeprazole (PRILOSEC) 40 mg capsule Take 1 capsule by mouth two times a day. - blood sugar diagnostic ([employer]UCH VERIO TEST STRIPS) test strip 1 Strip four times daily. Use as instructed - loratadine (CLARITIN) 10 mg tablet Take 1 tablet by mouth once daily. - CPAP/BIPAP/OTHER Type .CPAPSettings into a note to see current settings/supplies/DME information. Problem List As Of Date 04/18/2025 Noted Resolved Uncontrolled type 2 diabetes mellitus with hype*08/28/2022 Chronic midline low back pain with sciatica [M5*08/28/2022 Chronic obstructive lung disease (HCC) [J44.9] 10/18/2022 11/05/2022 Chronic obstructive pulmonary disease, unspecif*11/30/2021 Hyperlipidemia, unspecified [E78.5] 06/15/2021 Tobacco use [Z72.0] 11/05/[address] scan, kidney [R93.429] 11/05/2022 Dyspepsia [R10.13] 02/21/2023 Epigastric pain [R10.13] 02/21/2023 Right upper quadrant abdominal pain [R10.11] 02/21/2023 Chronic gastritis without bleeding [K29.50] 03/12/2023 Gastric wall thickening [K31.89] 03/12/2023 Primary hypertension [I10] 06/11/2023 Neuropathy [G62.9] 06/11/2023 Back pain with history of spinal surgery [M54.9*06/11/2023 FRANCISCO (obstructive sleep apnea) [G47.33] 06/11/2023 DM gastroparesis (HCC) [E11.43, K31.84] 07/04/2023 Abdominal bloating [R14.0] 10/13/2023 Obesity [E66.9] 10/13/2023 Diagnosed: 10/13/2023 Postlaminectomy syndrome of lumbar region [M96.*10/31/2022 Diagnosed: 10/13/2023 Sciatica [M54.30] 11/18/2022 Diagnosed: 10/13/2023 Fall at home, initial encounter [W19.XXXA, Y92.*11/26/2023 12/04/2023 Nicotine use disorder, F17.2 [F17.200] 11/28/2023 Osteoporosis [M81.0] 08/20/2024 Closed displaced comminuted fracture of shaft o*11/08/2024 Presence of right artificial hip joint [Z96.641]11/08/2024 Encounter Status:Closed by SAMANTHA ARMSTRONG on 04/18/25 PROGRESS Observed: 04/15/2025 5:20 PM Status: COMPLETED Source: [facility] HNO ID: [id number] Author: MADAY SCALES RN Service: ? Author Type: Registered Nurse Type: Progress Notes Filed: 04/15/2025 17:22 Note Text: Order for XR of femur cancelled. Patient had B/L knee and hip XR completed that captured view of femur. XR HIP 2V AP/LAT RT Observed: 04/14/2025 11:27 AM Status: F Source: [facility] * * *Final Report* * * DATE OF EXAM: Apr 14 2025 11:27AM [id number] - XR HIP 2V AP/LAT RT / PROCEDURE REASON: Low back,knee,hip pain * * * * Physician Interpretation * * * * EXAMINATION / TECHNIQUE: XR LUMBAR 2V FLEX/EXT, XR HIP 2V AP/LAT RT, XR HIP 2V AP/ LAT LT, XR LUMBAR 3V AP/LAT/L5-S1 HISTORY: PT STATE LOWER BACK PAIN (accession [id number]), PT STATES RIGHT HIP PAIN (accession [id number]), PT STATES CHRONIC LEFT LEG PAIN (accession [id number]), PT STATES LOWER BACK PAIN SEVERAL YEARS AGO HAS CHRONIC PAIN (accession [id number]) back,knee,hip pain COMPARISON: Pelvis radiographs dated 12/29/2024. CT dated 01/27/2024. RESULT: Lumbar spine: Counting reference: Lumbosacral junction. For the purposes of this report, L4-5 is considered the level of the iliac crest and assume there are 5 lumbar-type vertebrae. Anatomic variant: None. Status post T12 vertebral body augmentation. No new compression fracture. Sagittal alignment is preserved. Unchanged positioning of the L4-L5 interbody spacer. Remaining disc spaces are preserved. No dynamic instability. Lower lumbar facet hypertrophy. Hips: Status post right total hip arthroplasty without periprosthetic lucency or fracture. Intact left femoral hardware. No acute fracture or malalignment. Left hip joint space is maintained. COMBINED IMPRESSION: Postoperative and degenerative changes in the lumbar spine as described. Postoperative changes in the hips without hardware complication. [employer] Programmer Analyst: [facility]ich[facility] Transcribe Date/Time: Apr 20 2025 8:28P Dictated by : NAVID YOUNG MD This examination was interpreted and the report reviewed and electronically signed by: NAVID YOUNG MD on Apr 20 2025 8:30PM EST [id number] XR HIP 2V AP/ LAT LT Observed: 11:26 AM Status: F Source: [facility] * * *Final Report* * * DATE OF EXAM: Apr 14 2025 11:26AM [id number] - XR HIP 2V AP/ LAT LT / PROCEDURE REASON: Low back,knee,hip pain * * * * Physician Interpretation * * * * EXAMINATION / TECHNIQUE: XR LUMBAR 2V FLEX/EXT, XR HIP 2V AP/LAT RT, XR HIP 2V AP/ LAT LT, XR LUMBAR 3V AP/LAT/L5-S1 HISTORY: PT STATE LOWER BACK PAIN (accession [id number]), PT STATES RIGHT HIP PAIN (accession [id number]), PT STATES CHRONIC LEFT LEG PAIN (accession [id number]), PT STATES LOWER BACK PAIN SEVERAL YEARS AGO HAS CHRONIC PAIN (accession [id number]) back,knee,hip pain COMPARISON: Pelvis radiographs dated 12/29/2024. CT dated 01/27/2024. RESULT: Lumbar spine: Counting reference: Lumbosacral junction. For the purposes of this report, L4-5 is considered the level of the iliac crest and assume there are 5 lumbar-type vertebrae. Anatomic variant: None. Status post T12 vertebral body augmentation. No new compression fracture. Sagittal alignment is preserved. Unchanged positioning of the L4-L5 interbody spacer. Remaining disc spaces are preserved. No dynamic instability. Lower lumbar facet hypertrophy. Hips: Status post right total hip arthroplasty without periprosthetic lucency or fracture. Intact left femoral hardware. No acute fracture or malalignment. Left hip joint space is maintained. COMBINED IMPRESSION: Postoperative and degenerative changes in the lumbar spine as described. Postoperative changes in the hips without hardware complication. [employer] Programmer Analyst: [facility] Transcribe Date/Time: Apr 20 2025 8:28P Dictated by : NAVID YOUNG MD This examination was interpreted and the report reviewed and electronically signed by: NAVID YOUNG MD on Apr 20 2025 8:30PM EST [id number] XR KNEE 2V AP/LAT RENEE Observed: 04/14/20 11:25 AM Status: F Source: [facility] * * *Final Report* * * DATE OF EXAM: Apr 14 2025 11:25AM [id number] [id number] - XR KNEE 2V AP/LAT RENEE / PROCEDURE REASON: Low back,knee,hip pain * * * * Physician Interpretation * * * * EXAMINATION / TECHNIQUE: XR KNEE 2V AP/LAT RENEE HISTORY: PT STATES LEFT KNEE PAIN FROM PREVIOUS SURGERY Low back,knee,hip pain COMPARISON: 11/26/2023. RESULT: No acute fracture or dislocation in either knee Joint spaces are maintained bilaterally. Intact distal femoral hardware. No large joint effusion in either knee. IMPRESSION: No acute bony abnormality. [employer] Programmer Analyst: [facility] Transcribe Date/Time: Apr 20 2025 8:30P Dictated by : NAVID YOUNG MD This examination was interpreted and the report reviewed and electronically signed by: NAVID YOUNG MD on Apr 20 2025 8:31PM EST [id number] XR LUMBAR 2V FLEX/EXT Observed: 04/14/20 11:24 AM Status: F Source: [facility] * * *Final Report* * * DATE OF EXAM: Apr 14 2025 11:24AM WRX [id number] - XR LUMBAR 2V FLEX/EXT / PROCEDURE REASON: back,knee,hip pain * * * * Physician Interpretation * * * * EXAMINATION / TECHNIQUE: XR LUMBAR 2V FLEX/EXT, XR HIP 2V AP/LAT RT, XR HIP 2V AP/ LAT LT, XR LUMBAR 3V AP/LAT/L5-S1 HISTORY: PT STATE LOWER BACK PAIN (accession [id number]), PT STATES RIGHT HIP PAIN (accession [id number]), PT STATES CHRONIC LEFT LEG PAIN (accession [id number]), PT STATES LOWER BACK PAIN SEVERAL YEARS AGO HAS CHRONIC PAIN (accession [id number]) back,knee,hip pain COMPARISON: Pelvis radiographs dated 12/29/2024. CT dated 01/27/2024. RESULT: Lumbar spine: Counting reference: Lumbosacral junction. For the purposes of this report, L4-5 is considered the level of the iliac crest and assume there are 5 lumbar-type vertebrae. Anatomic variant: None. Status post T12 vertebral body augmentation. No new compression fracture. Sagittal alignment is preserved. Unchanged positioning of the L4-L5 interbody spacer. Remaining disc spaces are preserved. No dynamic instability. Lower lumbar facet hypertrophy. Hips: Status post right total hip arthroplasty without periprosthetic lucency or fracture. Intact left femoral hardware. No acute fracture or malalignment. Left hip joint space is maintained. COMBINED IMPRESSION: Postoperative and degenerative changes in the lumbar spine as described. Postoperative changes in the hips without hardware complication. [employer] Programmer Analyst: [facility] Transcribe Date/Time: Apr 20 2025 8:28P Dictated by : NAVID YOUNG MD This examination was interpreted and the report reviewed and electronically signed by: NAVID YOUNG MD on Apr 20 2025 8:30PM EST [id number] XR LUMBAR 3V AP/LAT/L5-S1 Observed: 03/2025 11:23 AM Status: F Source: [facility] * * *Final Report* * * DATE OF EXAM: Apr 14 2025 11:23AM [id number] [id number] - XR LUMBAR 3V AP/LAT/L5-S1 / PROCEDURE REASON: back,knee,hip pain * * * * Physician Interpretation * * * * EXAMINATION / TECHNIQUE: XR LUMBAR 2V FLEX/EXT, XR HIP 2V AP/LAT RT, XR HIP 2V AP/ LAT LT, XR LUMBAR 3V AP/LAT/L5-S1 HISTORY: PT STATE LOWER BACK PAIN (accession [id number]), PT STATES RIGHT HIP PAIN (accession [id number]), PT STATES CHRONIC LEFT LEG PAIN (accession [id number]), PT STATES LOWER BACK PAIN SEVERAL YEARS AGO HAS CHRONIC PAIN (accession [id number]) back,knee,hip pain COMPARISON: Pelvis radiographs dated 12/29/2024. CT dated 01/27/2024. RESULT: Lumbar spine: Counting reference: Lumbosacral junction. For the purposes of this report, L4-5 is considered the level of the iliac crest and assume there are 5 lumbar-type vertebrae. Anatomic variant: None. Status post T12 vertebral body augmentation. No new compression fracture. Sagittal alignment is preserved. Unchanged positioning of the L4-L5 interbody spacer. Remaining disc spaces are preserved. No dynamic instability. Lower lumbar facet hypertrophy. Hips: Status post right total hip arthroplasty without periprosthetic lucency or fracture. Intact left femoral hardware. No acute fracture or malalignment. Left hip joint space is maintained. COMBINED IMPRESSION: Postoperative and degenerative changes in the lumbar spine as described. Postoperative changes in the hips without hardware complication. [employer] Programmer Analyst: [facility] Transcribe Date/Time: Apr 20 2025 8:28P Dictated by : NAVID YOUNG MD This examination was interpreted and the report reviewed and electronically signed by: NAVID YOUNG MD on Apr 20 2025 8:30PM EST [id number] PROGRESS Observed: 04/11/2025 12:13 PM Status: COMPLETED Source: [facility] HNO ID: [id number] Author: CECI JUNG RN Service: ? Author Type: Registered Nurse Type: Progress Notes Filed: 04/11/2025 12:14 Note Text: kenyatta HAMMER Observed: 04/10/2025 12:00 AM Status: COMPLETED Source: [facility] Telephone (INTMWS) NIKKIE BUCK ([id number]) 1965 F Date Time Provider Department 04/10/25 GEORGINA GONSALEZ During your visit today, we recorded the following information about you: Vincent BagleyChristelle 04/12/2025 11:00 AM Addendum Per patient she is out of medication and needs today. She stated that she is still going through hoops for pain management who now wants her to have further X-rays. She is asking for Georgina to continue refills until pain management is straightened out. Sunita Murphy, RN 04/13/2025 9:15 AM Signed Called pt to schedule her follow up appt with PCP office as she did not have one scheduled. Last visit 03/14/25. Set up next 3 appointments for 06/14/[address] Hanks, 09/15/25 with Georgina Gonsalez and 12/19/[address] Hanks. Pt is overdue for yearly urine tox screen. Added to visit note for 06/14/25. Pt states she saw Dr. Kevin Jarrett in [place]. He requested more x-rays. Pt states she brought the order here but the tech didn't want to do them because they were similar to x-rays pt has already had here at [facility]. Spoke with pt about getting the x-rays put on a disk and taking to Dr. Jarrett. She states she thinks he wanted updated x-rays. She is trying to arrange a ride to get here to do the x-rays. Pt also states she is now doing PT 3 [facility] at [facility]. Pt also encouraged to reschedule her missed appts with pharmacy for her diabetes and with BMI for her gastroparesis. Phone numbers given to schedule. Pt also set up mammogram appt. Pt requesting refills on pain med until she gets her x-rays for the pain management doctor. Rissa Hanks MD 04/13/2025 12:36 PM Signed Below noted The following approved medication requests have been transmitted electronically. Requested Prescriptions Signed Prescriptions Disp Refills oxyCODONE IR (ROXICODONE) 10 mg tab 21 tablet 0 Sig: Take 1 tablet by mouth three times a day as needed for pain for up to 7 days. Authorizing Provider: RISSA HANKS MD What was ordered by the outside provider for Xray? Can tech deny doing an Xray if another provider wants an updated Xray for change in symptoms? Agree that outside provider can review disc of Xrays already done then decide whether still needs updated Xrays. I found the order under scanned document: There were no recent knee xrays. Should get this done There were recent hip Xrays.Get disc A/P lateral left femur was done 10/14/24 and showed a patellar fracture There was an order for a CT left femur that was not done--don't know if the orthopedists at [facility] changed their minds or patient declined getting done. Sunita Murphy RN 04/15/2025 11:37 AM Addendum Contacted pt to notify script sent in and given Dr. Hanks' instructions and information. And that she needs to get her x-rays completed-all that the provider ordered. Outside provider order for all the different x-rays under scanned documents. Spoke with Monica BAGLEY and asked her to follow up on this. Dr. Rob Gonzáles had ordered a left femur CT scan on 10/14/24 but it appears it was denied by pt's insurance. Per Dr. Hanks' note below, pt needs to have CT of the femur done as well as in Dr. Gonzáles's office note on 10/14/24 for reason. Per orders, pt also needs to have some ultrasounds done. Pt reminded and asked Monica Che to contact pt to schedule them. Allergies As of Date: 04/10/2025 Noted Allergy Reaction DULOXETINE 06/15/2021 7 - Swelling 14 - Other: See Comments Comments: Other reaction(s): swelling Other reaction(s): Unknown Other reaction(s): swelling NSAIDS (NON-STEROIDAL ANTI-INFLAM*08/15/2020 8 - GI Upset Comments: Other reaction(s): GI Upset Other reaction(s): cramping, GI Upset, Other (See Comments), Upset Stomach Severe stomach pain Other reaction(s): GI Upset PENICILLINS 08/15/2020 2 - Rash 14 - Other: See Comments Comments: Other reaction(s): GI Upset, hives, horrible taste in mouth Other reaction(s): GI Upset, GI Upset, horrible taste in mouth, leaves a bad taste in her mouth., NEEDS FOLLOW-UP Other reaction(s): GI Upset, hives, horrible taste in mouth PREGABALIN 08/15/2020 7 - Swelling 14 - Other: See Comments 16 - Unknown Comments: Other reaction(s): swelling, Swelling Other reaction(s): Swelling, Unknown Other reaction(s): swelling, Swelling AMLODIPINE 06/22/2024 5 - Intolerance Comments: leg swelling at 10 mg CELEBREX (CELECOXIB) 08/09/2024 5 - Intolerance Comments: feet and leg swelling PENICILLIN G 11/11/2021 8 - GI Upset IBUPROFEN 11/11/2021 8 - GI Upset Comments: Vomiting cramping TYLENOL (ACETAMINOPHEN) 10/27/2022 8 - GI Upset Date Reviewed: 03/17/2025 Reviewed by: Alanis Warren [facility] - Fully Assessed Reason for Visit: Refill Request [94] Orders [681] Visit Diagnoses:Other chronic postprocedural pain [G89.28] Closed displaced comminuted fracture of shaft of left femur, sequela [S72.352S] Presence of right artificial hip joint [Z96.641] S/P right hip fracture [Z87.81] Median arcuate ligament syndrome [I77.4] Uncontrolled type 2 diabetes mellitus with hyperglycemia (HCC) [E11.65] Diabetic gastroparesis associated with type 2 diabetes mellitus (HCC) [E11.43, K31.84] Hypercalcemia [E83.52] Order(s):oxyCODONE IR (ROXICODONE) 10 mg tabTake 1 tablet by mouth three times a day as needed for pain for up to 7 days.Disp: 21 tabletRfl: 0 Prescriptions as of 04/15/2025 - oxyCODONE IR (ROXICODONE) 10 mg tab Take 1 tablet by mouth three times a day as needed for pain for up to 7 days. - Blood-Glucose Sensor (FREESTYLE KATHERINE 3 PLUS SENSOR) jaguar Apply new sensor every fifteen (15) days to upper arm. - insulin glargine 100 unit/mL (3 mL) Inject 30 Units subcutaneously daily at bedtime. - FLUoxetine (PROZAC) 20 mg capsule Take 1 capsule by mouth once daily. - insulin lispro (HUMALOG KWIKPEN) 100 unit/mL Take 5 units for glucose 250 or greater at mealtime - empagliflozin (JARDIANCE) 10 mg tablet Take 1 tablet by mouth daily with breakfast. - lisinopril (ZESTRIL) 5 mg tablet Take 1 tablet by mouth once daily. - tiZANidine (ZANAFLEX) 4 mg tablet Take 1 tablet by mouth three times a day as needed. - gabapentin (NEURONTIN) 800 mg tablet Take 1 tablet by mouth four times daily for 90 days. - albuterol HFA (PROVENTIL HFA, VENTOLIN HFA) 90 mcg/actuation inhaler Inhale 2 puffs as instructed every 4 hours as needed for wheezing/shortness of breath. - polyethylene glycol 3350 17 gram/dose powder Take 17 g by mouth once daily as needed for constipation. - Cholecalciferol, Vitamin D3, 50 mcg (2,000 unit) cap Take 1 capsule by mouth once daily. - Insulin Willow, Disposable, (BD ULTRA-FINE PADMINI PEN NEEDLE) 32 gauge x 5/32" 1 Each three times a day. - hydrALAZINE (APRESOLINE) 50 mg tablet Take 1 tablet by mouth four times daily. Hold if blood pressure is less than 110/60 - ondansetron orally disintegrating (ZOFRAN ODT) 8 mg disintegrating tablet Take 1 tablet by mouth every 8 hours as needed for nausea/vomiting. - omeprazole (PRILOSEC) 40 mg capsule Take 1 capsule by mouth two times a day. - blood sugar diagnostic (ONETOUCH VERIO TEST STRIPS) test strip 1 Strip four times daily. Use as instructed - fluticasone-salmeterol HFA (ADVAIR HFA) 230-21 mcg/actuation inhaler Inhale 2 Puffs as instructed two times a day. - loratadine (CLARITIN) 10 mg tablet Take 1 tablet by mouth once daily. - CPAP/BIPAP/OTHER Type .CPAPSettings into a note to see current settings/supplies/DME information. Problem List As Of Date 04/10/2025 Noted Resolved Uncontrolled type 2 diabetes mellitus with hype*08/28/2022 Chronic midline low back pain with sciatica [M5*08/28/2022 Chronic obstructive lung disease (HCC) [J44.9] 10/18/2022 11/05/2022 Chronic obstructive pulmonary disease, unspecif*11/30/2021 Hyperlipidemia, unspecified [E78.5] 06/15/2021 Tobacco use [Z72.0] 11/05/[address] scan, kidney [R93.429] 11/05/2022 Dyspepsia [R10.13] 02/21/2023 Epigastric pain [R10.13] 02/21/2023 Right upper quadrant abdominal pain [R10.11] 02/21/2023 Chronic gastritis without bleeding [K29.50] 03/12/2023 Gastric wall thickening [K31.89] 03/12/2023 Primary hypertension [I10] 06/11/2023 Neuropathy [G62.9] 06/11/2023 Back pain with history of spinal surgery [M54.9*06/11/2023 FRANCISCO (obstructive sleep apnea) [G47.33] 06/11/2023 DM gastroparesis (HCC) [E11.43, K31.84] 07/04/2023 Abdominal bloating [R14.0] 10/13/2023 Obesity [E66.9] 10/13/2023 Diagnosed: 10/13/2023 Postlaminectomy syndrome of lumbar region [M96.*10/31/2022 Diagnosed: 10/13/2023 Sciatica [M54.30] 11/18/2022 Diagnosed: 10/13/2023 Fall at home, initial encounter [W19.XXXA, Y92.*11/26/2023 12/04/2023 Nicotine use disorder, F17.2 [F17.200] 11/28/2023 Osteoporosis [M81.0] 08/20/2024 Closed displaced comminuted fracture of shaft o*11/08/2024 Presence of right artificial hip joint [Z96.641]11/08/2024 Prescriptions ordered this encounter Disp Refills Start End OXYCODONE 10 MG TABLET 21 t* 0 04/13/2025 04/20/2025 Route: PO Sig: Take 1 tablet by mouth three times a day as needed for pain for up to 7 days. Medications Discontinued During This Encounter Prescriptions - oxyCODONE IR (ROXICODONE) 10 mg tab (Discontinued) Take 1 tablet by mouth three times a day as needed for pain for up to 7 days. Encounter Status:Closed by CLARE LEHMAN on 04/15/25 HARMAN Observed: 03/31/2025 12:00 AM Status: COMPLETED Source: [facility] Telephone ([employer]) NIKKIE BUCK ([id number]) 1965 F Date Time Provider Department 03/31/25 ALANIS WARREN [facility] During your visit today, we recorded the following information about you: Alanis Warren RPh 03/31/2025 10:35 AM Signed Patient did not check in for today's visit. Called patient; unable to reach. Left VM with phone number to reschedule. Alanis Warren, PharmD, BCACP Primary Care Clinical [employer] Allergies As of Date: 03/31/2025 Noted Allergy Reaction DULOXETINE 06/15/2021 7 - Swelling 14 - Other: See Comments Comments: Other reaction(s): swelling Other reaction(s): Unknown Other reaction(s): swelling NSAIDS (NON-STEROIDAL ANTI-INFLAM*08/15/2020 8 - GI Upset Comments: Other reaction(s): GI Upset Other reaction(s): cramping, GI Upset, Other (See Comments), Upset Stomach Severe stomach pain Other reaction(s): GI Upset PENICILLINS 08/15/2020 2 - Rash 14 - Other: See Comments Comments: Other reaction(s): GI Upset, hives, horrible taste in mouth Other reaction(s): GI Upset, GI Upset, horrible taste in mouth, leaves a bad taste in her mouth., NEEDS FOLLOW-UP Other reaction(s): GI Upset, hives, horrible taste in mouth PREGABALIN 08/15/2020 7 - Swelling 14 - Other: See Comments 16 - Unknown Comments: Other reaction(s): swelling, Swelling Other reaction(s): Swelling, Unknown Other reaction(s): swelling, Swelling AMLODIPINE 06/22/2024 5 - Intolerance Comments: leg swelling at 10 mg CELEBREX (CELECOXIB) 08/09/2024 5 - Intolerance Comments: feet and leg swelling PENICILLIN G 11/11/2021 8 - GI Upset IBUPROFEN 11/11/2021 8 - GI Upset Comments: Vomiting cramping TYLENOL (ACETAMINOPHEN) 10/27/2022 8 - GI Upset Date Reviewed: 03/17/2025 Reviewed by: Alanis Warren [facility] - Fully Assessed Reason for Visit: Missed Appointment [1304] Prescriptions as of 04/04/2025 - oxyCODONE IR (ROXICODONE) 10 mg tab Take 1 tablet by mouth three times a day as needed for pain for up to 7 days. - Blood-Glucose Sensor (FREESTYLE KATHERINE 3 PLUS SENSOR) jaguar Apply new sensor every fifteen (15) days to upper arm. - insulin glargine 100 unit/mL (3 mL) Inject 30 Units subcutaneously daily at bedtime. - FLUoxetine (PROZAC) 20 mg capsule Take 1 capsule by mouth once daily. - insulin lispro (HUMALOG KWIKPEN) 100 unit/mL Take 5 units for glucose 250 or greater at mealtime - empagliflozin (JARDIANCE) 10 mg tablet Take 1 tablet by mouth daily with breakfast. - lisinopril (ZESTRIL) 5 mg tablet Take 1 tablet by mouth once daily. - tiZANidine (ZANAFLEX) 4 mg tablet Take 1 tablet by mouth three times a day as needed. - gabapentin (NEURONTIN) 800 mg tablet Take 1 tablet by mouth four times daily for 90 days. - albuterol HFA (PROVENTIL HFA, VENTOLIN HFA) 90 mcg/actuation inhaler Inhale 2 puffs as instructed every 4 hours as needed for wheezing/shortness of breath. - polyethylene glycol 3350 17 gram/dose powder Take 17 g by mouth once daily as needed for constipation. - Cholecalciferol, Vitamin D3, 50 mcg (2,000 unit) cap Take 1 capsule by mouth once daily. - Insulin Willow, Disposable, (BD ULTRA-FINE PADMINI PEN NEEDLE) 32 gauge x 5/32" 1 Each three times a day. - hydrALAZINE (APRESOLINE) 50 mg tablet Take 1 tablet by mouth four times daily. Hold if blood pressure is less than 110/60 - ondansetron orally disintegrating (ZOFRAN ODT) 8 mg disintegrating tablet Take 1 tablet by mouth every 8 hours as needed for nausea/vomiting. - omeprazole (PRILOSEC) 40 mg capsule Take 1 capsule by mouth two times a day. - blood sugar diagnostic ([employer]UCH VERIO TEST STRIPS) test strip 1 Strip four times daily. Use as instructed - fluticasone-salmeterol HFA (ADVAIR HFA) 230-21 mcg/actuation inhaler Inhale 2 Puffs as instructed two times a day. - loratadine (CLARITIN) 10 mg tablet Take 1 tablet by mouth once daily. - CPAP/BIPAP/OTHER Type .CPAPSettings into a note to see current settings/supplies/DME information. Problem List As Of Date 03/31/2025 Noted Resolved Uncontrolled type 2 diabetes mellitus with hype*08/28/2022 Chronic midline low back pain with sciatica [M5*08/28/2022 Chronic obstructive lung disease (HCC) [J44.9] 10/18/2022 11/05/2022 Chronic obstructive pulmonary disease, unspecif*11/30/2021 Hyperlipidemia, unspecified [E78.5] 06/15/2021 Tobacco use [Z72.0] 11/05/[address] scan, kidney [R93.429] 11/05/2022 Dyspepsia [R10.13] 02/21/2023 Epigastric pain [R10.13] 02/21/2023 Right upper quadrant abdominal pain [R10.11] 02/21/2023 Chronic gastritis without bleeding [K29.50] 03/12/2023 Gastric wall thickening [K31.89] 03/12/2023 Primary hypertension [I10] 06/11/2023 Neuropathy [G62.9] 06/11/2023 Back pain with history of spinal surgery [M54.9*06/11/2023 FRANCISCO (obstructive sleep apnea) [G47.33] 06/11/2023 DM gastroparesis (HCC) [E11.43, K31.84] 07/04/2023 Abdominal bloating [R14.0] 10/13/2023 Obesity [E66.9] 10/13/2023 Diagnosed: 10/13/2023 Postlaminectomy syndrome of lumbar region [M96.*10/31/2022 Diagnosed: 10/13/2023 Sciatica [M54.30] 11/18/2022 Diagnosed: 10/13/2023 Fall at home, initial encounter [W19.XXXA, Y92.*11/26/2023 12/04/2023 Nicotine use disorder, F17.2 [F17.200] 11/28/2023 Osteoporosis [M81.0] 08/20/2024 Closed displaced comminuted fracture of shaft o*11/08/2024 Presence of right artificial hip joint [Z96.641]11/08/2024 Encounter Status:Closed by ALANIS WARREN on 03/31/25 PROGRESS Observed: 03/17/2025 10:30 AM Status: COMPLETED Source: [facility] ID: [id number] Author: ALANIS WARREN [facility] Service: ? Author Type: Pharmacist Type: Progress Notes Filed: 03/17/2025 11:18 Note Text: Primary Care Pharmacy Visit CC (Reason for Consult): (E11.65) Uncontrolled type 2 diabetes mellitus with hyperglycemia (HCC) (primary encounter diagnosis) Goal(s): A1c <7% Last Collaborating Provider Visit: 03/14/25 with LILIA Bryant Nikkie Buck is a 59 year old female presenting for initial visit: This initial consult was conducted telephone call with the patient where the consult agreement was explained. The patient may decline or cancel the agreement at any time. After consideration, the patient consented to the pharmacy consult agreement and agreed to allow medications be collaboratively managed by a pharmacist. HPI: Reports doing well States she was recently prescribed the Jardiance but has not started yet, will be picking up from the pharmacy today. States she thinks she was on it in the past but not sure States she needs sliding scale instructions for her meal time insulin. States goal is to keep BGs under 200 States she does her best to eat right, has cut out a lot of carbs, does not eat bread or pasta often. Sometimes only taking Humalog twice a day due to not eating as much and less meals overall Struggles with eating a meal due to gastroparesis, feels its worsened over the last 2 years but is following with gastroenterology Denies symptoms of hyperglycemia this past week, but has had some in the past Wore CGM in the past, when brand was switched couldn't get it set up again. Thinks it was the Freestyle Katherine. Would be interested in trying again Current DM Medications: Jardiance 10 mg once daily - not started yet Insulin glargine (Lantus) 29 units once daily at bedtime - taking 30 units once daily (just increased yesterday) Humalog 5 units for BG>250 at meals - taking before meals depending on BGs, ~5 units before meals (gives about 30 minutes before meal), confirms skips if skips meal, if BG>200 still takes it without meal Previously Trialed DM Meds: Trulicity - unable to tolerate ?, but does not recall exact reason it was stopped Diet Eating ~2 meals/day Experiences pain when eating due to gastroparesis, doesn't eat anything heavy; however, tends to have more carbs due to softer foods (mashed potatoes, fruits, sugar free jello) Lunch and dinner - leftovers or sandwich (PBJ) or soup Rarely has snacks Drinking water throughout the day or black coffee snacks Exercise: No Caffeine: Yes GLYCEMIC CONTROL: Glucometer present at visit: No Hypoglycemia: Yes - has had at least 3 episodes in last week after she's eaten Checks at random times, but states does not record readings BGs hit 230-250 last couple days Today was 183 Past medical history reviewed. ALLERGIES Allergen Reactions Duloxetine Swelling, Other: See Comments Other reaction(s): swelling Other reaction(s): Unknown Other reaction(s): swelling Nsaids (Non-Steroid* GI Upset Other reaction(s): GI Upset Other reaction(s): cramping, GI Upset, Other (See Comments), Upset Stomach Severe stomach pain Other reaction(s): GI Upset Penicillins Rash, Other: See Comments Other reaction(s): GI Upset, hives, horrible taste in mouth Other reaction(s): GI Upset, GI Upset, horrible taste in mouth, leaves a bad taste in her mouth., NEEDS FOLLOW-UP Other reaction(s): GI Upset, hives, horrible taste in mouth Pregabalin Swelling, Other: See Comments, Unknown Other reaction(s): swelling, Swelling Other reaction(s): Swelling, Unknown Other reaction(s): swelling, Swelling Amlodipine Intolerance leg swelling at 10 mg Celebrex [Celecoxib] Intolerance feet and leg swelling Penicillin G GI Upset Ibuprofen GI Upset Vomiting cramping Tylenol [Acetaminop* GI Upset Current Outpatient Medications Medication Sig Dispense Refill FLUoxetine (PROZAC) 20 mg capsule Take 1 capsule by mouth once daily. 90 capsule 3 oxyCODONE IR (ROXICODONE) 10 mg tab Take 1 tablet by mouth three times a day as needed for pain for up to 7 days. Patient should start on March 15, 2025. 21 tablet 0 insulin lispro (HUMALOG KWIKPEN) 100 unit/mL Take 5 units for glucose 250 or greater at mealtime insulin glargine 100 unit/mL (3 mL) Inject 29 Units subcutaneously daily at bedtime. 6 each 1 empagliflozin (JARDIANCE) 10 mg tablet Take 1 tablet by mouth daily with breakfast. 90 tablet 3 lisinopril (ZESTRIL) 5 mg tablet Take 1 tablet by mouth once daily. 90 tablet 3 tiZANidine (ZANAFLEX) 4 mg tablet Take 1 tablet by mouth three times a day as needed. 90 tablet 1 gabapentin (NEURONTIN) 800 mg tablet Take 1 tablet by mouth four times daily for 90 days. 120 tablet 2 albuterol HFA (PROVENTIL HFA, VENTOLIN HFA) 90 mcg/actuation inhaler Inhale 2 puffs as instructed every 4 hours as needed for wheezing/shortness of breath. 1 each 11 polyethylene glycol 3350 17 gram/dose powder Take 17 g by mouth once daily as needed for constipation. 1530 g 3 Cholecalciferol, Vitamin D3, 50 mcg (2,000 unit) cap Take 1 capsule by mouth once daily. 30 capsule 11 Insulin Willow, Disposable, (BD ULTRA-FINE PADMINI PEN NEEDLE) 32 gauge x 5/32" 1 Each three times a day. 90 Each 11 hydrALAZINE (APRESOLINE) 50 mg tablet Take 1 tablet by mouth four times daily. Hold if blood pressure is less than 110/60 120 tablet 11 ondansetron orally disintegrating (ZOFRAN ODT) 8 mg disintegrating tablet Take 1 tablet by mouth every 8 hours as needed for nausea/vomiting. 90 tablet 5 omeprazole (PRILOSEC) 40 mg capsule Take 1 capsule by mouth two times a day. 90 capsule 3 blood sugar diagnostic (ONETOUCH VERIO TEST STRIPS) test strip 1 Strip four times daily. Use as instructed 200 Each 2 fluticasone-salmeterol HFA (ADVAIR HFA) 230-21 mcg/actuation inhaler Inhale 2 Puffs as instructed two times a day. 12 g 11 loratadine (CLARITIN) 10 mg tablet Take 1 tablet by mouth once daily. 90 tablet 1 CPAP/BIPAP/OTHER Type .CPAPSettings into a note to see current settings/supplies/DME information. 1 Each 0 No current facility-administered medications for this visit. Pill bottles are present. Adherence: denies missed doses. Rx coverage: Payor: [facility] MEDICAID / Plan: [facility] [employer] MEDICAID [facility] / Product Type: Medicaid / Medications affordable? Yes PHARMACOTHERAPY PREVENTATIVE MEDS: On POLINA/ARB: Yes On Statin: No On ASA: No EXAM: There were no vitals taken for this visit. Last 3 Encounter BP Readings: Date: BP: 03/14/2025 157/79 03/07/2025 132/70 02/15/2025 134/80 Wt: 63 kg (138 lb 14.2 oz) BMI: 27.13 kg/(m2) LABS: Lab Results Component Value Date HBA1C 10.0 03/07/2025 HBA1C 8.6 11/22/2024 HBA1C 8.9 08/09/2024 Glucose 265 03/07/2025 BUN 51 03/07/2025 Creatinine 1.41 03/07/2025 Sodium 129 03/07/2025 Potassium 4.9 03/07/2025 Chloride 97 03/07/2025 CO2 19 03/07/2025 Protein, Total 7.2 03/07/2025 Albumin 4.1 03/07/2025 Calcium, Total 10.9 03/07/2025 Alkaline Phosphatase 80 03/07/2025 Bilirubin, Total 0.2 03/07/2025 AST 12 03/07/2025 ALT 10 03/07/2025 Lab Results Component Value Date CHOL 274 03/07/2025 CHOL 218 03/12/2023 LDL 182 03/07/2025 HDL 49 03/07/2025 HDL 59 03/12/2023 TG 225 03/07/2025 TG 136 03/12/2023 Albumin/Creat Ratio (mg/g) Date Value 08/09/2024 3,344 (H) Estimated Glomerular Filtration Rate (mL/min/1.73m?) Date Value 03/07/2025 43 ASSESSMENT/PLAN: 1. Uncontrolled type 2 diabetes mellitus with hyperglycemia (HCC) - ICD9: 250.02, ICD10: E11.65 - Uncontrolled - Start Jardiance 10 mg once daily, as previously prescribed - Adjust Humalog to sliding scale #1 before meals. Will send copy of sliding scale via [employer], per patient request - Continue Lantus 30 units once daily (updated to reflect as patient taking) - Blood glucose monitoring on a continuous glucose monitoring schedule. Sent Rx for [place] 3 Plus sensors to use with smartphone; will assist with set up in office. - Counseled on healthy diet and regular exercise - Discussed diabetic education issues of diabetes complications and monitoring required, hypoglycemic/hyperglycemic symptoms, and medication-specific side effects and monitoring - Follow up in 2 weeks for CGM set up, sooner should any other issues arise. Overdue Diabetes Health Maintenance: Health Maintenance - Diabetes Topic Date Due Dilated Retinal Exam Never done Diabetic Foot Exam Never done Follow Up: Next PCP visit: not scheduled Next PharmD visit: 03/31/25 Alanis Warren, VinayakD, BCACP Primary Care Clinical [employer] PROGRESS Observed: 03/14/2025 10:28 AM Status: COMPLETED Source: [facility] HNO ID: [id number] Author: GEORGINA GONSALEZ APRN.PATIENT SERVICES COORDINATOR Service: ? Author Type: Nurse Specialist Type: Progress Notes Filed: 03/14/2025 11:09 Note Text: SUBJECTIVE: Dilated Retinal Exam Never done Diabetic Foot Exam Never done Cervical Cancer Screening Never done Mammogram Screening due on 08/20/2023 Colorectal Cancer Screening due on 10/16/2024 MANNY Buck is a 59 year old female.PMH significnat or ACTIVE PROBLEM LIST Uncontrolled Type 2 Diabetes Mellitus With Hyperglycemia (Hcc) Chronic Midline Low Back Pain With Sciatica Chronic Obstructive Pulmonary Disease, Unspecified (Hcc) Hyperlipidemia, Unspecified Tobacco Use Abnormal CT Scan, Kidney Dyspepsia Epigastric Pain Right Upper Quadrant Abdominal Pain Chronic Gastritis Without Bleeding Gastric Wall Thickening Primary Hypertension Neuropathy Back Pain With History of Spinal Surgery Francisco (Obstructive Sleep Apnea) Dm Gastroparesis (Hcc) Abdominal Bloating Obesity Postlaminectomy Syndrome of Lumbar Region Sciatica Nicotine use disorder, F17.2 Osteoporosis Closed Displaced Comminuted Fracture of Shaft of Left Femur (Hcc) Presence of Right Artificial Hip Joint Presents today for a recheck. Nikkie Buck is a 59-year-old female with a history of diabetes, gastroparesis, and depression, presenting for management of diabetes and gastroparesis. Diabetes: - Blood glucose readings consistently >150 mg/dL every morning. - Noted improvement in blood glucose levels after increasing long-acting insulin to 29 units. - Using short-acting insulin more frequently; reports episodes of hypoglycemia with shaking and sweating. - Unable to use continuous glucose monitor due to issues with adhesion; relies on fingerstick glucose monitoring. - Reports difficulty adhering to diabetes management, stating, "I just don't care anymore." - Recent sodium levels were low; Nikkie was instructed to discontinue hydrochlorothiazide and start Lisinopril. Gastroparesis: - Reports significant abdominal pressure and pain, described as "pressure and pain" around the ribs. - Feels full after eating small amounts, stating, "I feel like I've ate half a bag." - Previously tried Reglan without relief. - Discussed potential surgical options with Dr. Arellano and a female doctor at [facility]. Depression: - Reports feeling "stuck" and "sick and tired of being sick and tired." - Currently taking Prozac; expresses interest in increasing the dosage. - Denies interest in speaking with a counselor, stating, "I got my doctors and I got me, and I got God." - Reports difficulty sleeping, stating, "I can't sleep. Last night was a real rough night. I got up at 2:30, been up all night." Chronic Pain: - Reports chronic pain from a fracture with "complete separation," stating, "I hurt, I'm in pain from it constantly." - Fracture occurred over a year ago; Nikkie expresses frustration with the slow healing process. - Scheduled to start physical therapy and pain management at the end of the month. - Requests a refill for pain medication. DIABETES MELLITUS: Without report of excessive thirst or increased frequency of urination, chest pain or dyspnea , numbness, tingling or pain in extremities, new or unusual visual symptoms, low sugar/hypoglycemic reactions, weight loss/gain, lightheadedness/dizziness, and bowel changes/loose stools. Patient's last HgA1C was Hemoglobin A1C (%) Date Value 03/07/2025 10.0 11/22/2024 8.6 ) ROS Constitutional: (+) insomnia Gastrointestinal: (+) abdominal pain, (+) abdominal bloating, (+) early satiety Musculoskeletal: (+) hip pain Skin: (+) diaphoresis Neurological: (+) tremor Psychiatric: (+) depressed mood Objective BP 157/79 Pulse 73 Resp 16 Wt 63 kg (138 lb 14.2 oz) BMI 27.13 kg/m? Physical Exam Vitals and nursing note reviewed. Constitutional: Appearance: Normal appearance. HENT: Head: Normocephalic and atraumatic. Eyes: Conjunctiva/sclera: Conjunctivae normal. Neck: Thyroid: No thyromegaly. Vascular: No JVD. Cardiovascular: Rate and Rhythm: Normal rate and regular rhythm. Heart sounds: Normal heart sounds. Pulmonary: Effort: Pulmonary effort is normal. Breath sounds: Normal breath sounds. Abdominal: General: Bowel sounds are normal. Palpations: Abdomen is soft. Tenderness: There is abdominal tenderness. Musculoskeletal: Lumbar back: Tenderness present. Left knee: Tenderness present. Right lower leg: Tenderness present. No edema. Left lower leg: No edema. Comments: brace left knee, walking with rollator, slow gait Skin: General: Skin is warm and dry. Neurological: General: No focal deficit present. Mental Status: She is alert and oriented to person, place, and time. ALLERGIES Allergen Reactions Duloxetine Swelling, Other: See Comments Other reaction(s): swelling Other reaction(s): Unknown Other reaction(s): swelling Nsaids (Non-Steroid* GI Upset Other reaction(s): GI Upset Other reaction(s): cramping, GI Upset, Other (See Comments), Upset Stomach Severe stomach pain Other reaction(s): GI Upset Penicillins Rash, Other: See Comments Other reaction(s): GI Upset, hives, horrible taste in mouth Other reaction(s): GI Upset, GI Upset, horrible taste in mouth, leaves a bad taste in her mouth., NEEDS FOLLOW-UP Other reaction(s): GI Upset, hives, horrible taste in mouth Pregabalin Swelling, Other: See Comments, Unknown Other reaction(s): swelling, Swelling Other reaction(s): Swelling, Unknown Other reaction(s): swelling, Swelling Amlodipine Intolerance leg swelling at 10 mg Celebrex [Celecoxib] Intolerance feet and leg swelling Penicillin G GI Upset Ibuprofen GI Upset Vomiting cramping Tylenol [Acetaminop* GI Upset Medications insulin glargine 100 unit/mL (3 mL) Inject 29 Units subcutaneously daily at bedtime. empagliflozin (JARDIANCE) 10 mg tablet Take 1 tablet by mouth daily with breakfast. lisinopril (ZESTRIL) 5 mg tablet Take 1 tablet by mouth once daily. tiZANidine (ZANAFLEX) 4 mg tablet Take 1 tablet by mouth three times a day as needed. gabapentin (NEURONTIN) 800 mg tablet Take 1 tablet by mouth four times daily for 90 days. albuterol HFA (PROVENTIL HFA, VENTOLIN HFA) 90 mcg/actuation inhaler Inhale 2 puffs as instructed every 4 hours as needed for wheezing/shortness of breath. polyethylene glycol 3350 17 gram/dose powder Take 17 g by mouth once daily as needed for constipation. Cholecalciferol, Vitamin D3, 50 mcg (2,000 unit) cap Take 1 capsule by mouth once daily. Insulin Willow, Disposable, (BD ULTRA-FINE PADMINI PEN NEEDLE) 32 gauge x 5/32" 1 Each three times a day. hydrALAZINE (APRESOLINE) 50 mg tablet Take 1 tablet by mouth four times daily. Hold if blood pressure is less than 110/60 ondansetron orally disintegrating (ZOFRAN ODT) 8 mg disintegrating tablet Take 1 tablet by mouth every 8 hours as needed for nausea/vomiting. omeprazole (PRILOSEC) 40 mg capsule Take 1 capsule by mouth two times a day. fluticasone-salmeterol HFA (ADVAIR HFA) 230-21 mcg/actuation inhaler Inhale 2 Puffs as instructed two times a day. loratadine (CLARITIN) 10 mg tablet Take 1 tablet by mouth once daily. FLUoxetine (PROZAC) 20 mg capsule Take 1 capsule by mouth once daily. [START ON 03/15/2025] oxyCODONE IR (ROXICODONE) 10 mg tab Take 1 tablet by mouth three times a day as needed for pain for up to 7 days. Patient should start on March 15, 2025. insulin lispro (HUMALOG KWIKPEN) 100 unit/mL Take 5 units for glucose 250 or greater at mealtime blood sugar diagnostic (ONETOUCH VERIO TEST STRIPS) test strip 1 Strip four times daily. Use as instructed CPAP/BIPAP/OTHER Type .CPAPSettings into a note to see current settings/supplies/DME information. PAST MEDICAL HISTORY Diagnosis Date Abdominal bloating 10/13/2023 Arthritis COPD (chronic obstructive pulmonary disease) (HCC) Diabetes (HCC) Hypertension Median arcuate ligament syndrome Sleep apnea Social History Tobacco Use Smoking status: Every Day Current packs/day: 1.00 Types: Cigarettes Smokeless tobacco: Never Tobacco comments: 3/4's of a pack daily Vaping Use Vaping status: Never Used Substance Use Topics Alcohol use: Never Drug use: Never Latest Ref Rng 08/09/2024 08/19/2024 09/22/2024 11/22/2024 Protein, Total 6.3 - 8.0 g/dL 7.2 Albumin 3.9 - 4.9 g/dL 4.2 Calcium 8.5 - 10.2 mg/dL 10.0 Bilirubin, Total 0.2 - 1.3 mg/dL 0.2 Alkaline Phosphatase 34 - 123 U/L 98 AST 13 - 35 U/L 14 ALT 7 - 38 U/L 10 Glucose 74 - 99 mg/dL 62 (L) BUN 7 - 21 mg/dL 35 (H) Creatinine 0.58 - 0.96 mg/dL 1.46 (H) Sodium 136 - 144 mmol/L 140 Potassium 3.7 - 5.1 mmol/L 5.5 (H) Chloride 98 - 107 mmol/L 104 CO2 22 - 30 mmol/L 26 Anion Gap 8 - 15 mmol/L 10 eGFR >=60 mL/min/1.73m? 41 (L) Creatinine, Ur Random (UCRR) 20.0 - 300.0 mg/dL 46.3 Albumin, Urine Random mg/L 1,548.3 Albumin/Creat Ratio <30 mg/g 3,344 (H) Hemoglobin A1C 4.3 - 5.6 % 8.9 (H) 8.6 (H) Estimated Average Glucose mg/dL 209 200 Vitamin D 25 Hydroxy 31.0 - 80.0 ng/mL 18.8 (L) 27.4 (L) Magnesium 1.7 - 2.3 mg/dL 2.4 (H) 1. Dysthymic (F34.1) - Symptoms of depression are persistent and impacting daily life. - Currently on escitalopram; consider increasing dosage. - Discussed potential benefits of counseling; patient to consider. 2. Uncontrolled type 2 diabetes mellitus with hyperglycemia (HCC) (E11.65) 3. Diabetic gastroparesis associated with type 2 diabetes mellitus (HCC) (E11.43) - Blood glucose levels consistently over 150 mg/dL in the morning; occasional hypoglycemic episodes reported. - Increased Lantus to 29 units at bedtime; fasting glucose levels around 120 mg/dL. - Using rapid-acting insulin based on sliding scale; experiencing hypoglycemia with current dosing. - Discontinue rapid-acting insulin unless blood glucose exceeds 250 mg/dL. - Initiated Januvia once daily to improve glycemic control and protect renal function. - Referred to clinic pharmacist Elian for diabetes management; appointment to be scheduled. - Discussed potential benefits of continuous glucose monitoring; pharmacist to assist with setup. - Gastroparesis symptoms include abdominal pain and early satiety; previously trialed Reglan without improvement. - Follow-up with Dr. Gonzales for surgical evaluation; appointment to be scheduled at earliest convenience. 4. Other chronic postprocedural pain (G89.28) - Chronic pain secondary to multiple surgical interventions. - Refill for pain management medication sent to pharmacy. - Upcoming pain management appointment scheduled. 5. Closed displaced comminuted fracture of shaft of left femur, sequela (S72.352S) - Persistent pain and delayed healing noted; fracture described as severe with complete separation. - Scheduled to begin physical therapy at the end of the month. 6. Presence of right artificial hip joint (Z96.641) 7. S/P right hip fracture (Z87.81) - Status post right hip fracture and subsequent hip replacement. - Continue monitoring for any complications or issues related to the artificial hip joint. 8. Essential (primary) hypertension (I10) - Recent lab results indicate hyponatremia. - Discontinued hydrochlorothiazide due to low sodium levels. - Resumed lisinopril therapy; patient to picker feeder medication from pharmacy. - Blood pressure slightly elevated today; continue monitoring. Recent lab results show uncontrolled / decreased control diabetes. Recommend increasing/glargine insulin from 27 to 29 units daily at bedtime. Addition of Jardiance for better diabetes control and protection for kidney function. Refer to pharmacist for diabetes management.. Phone, video or in office okay. Try sticking with diabetic diet and staying as active as she is able to do. Consider CGM, had problems setting this up and using in the past. For now recommend increasing fluid intake and liberalize sodium intake (increase salt intake). Calcium is elevated, if taking a multivitamin or calcium supplement recommend stopping that Cholesterol is elevated. Would recommend the above changes first then if feeling well consider addition of medication to help control cholesterol. Discontinue hydrochlorothiazide for hyponatremia (low sodium) and start taking lisinopril 5 mg daily instead. Office visit with me and recheck labs in 3 months. Latest Ref Rng 03/07/2025 Protein, Total 6.3 - 8.0 g/dL 7.2 Albumin 3.9 - 4.9 g/dL 4.1 Calcium 8.5 - 10.2 mg/dL 10.9 (H) Bilirubin, Total 0.2 - 1.3 mg/dL 0.2 Alkaline Phosphatase 34 - 123 U/L 80 AST 13 - 35 U/L 12 (L) ALT 7 - 38 U/L 10 Glucose 74 - 99 mg/dL 265 (H) BUN 7 - 21 mg/dL 51 (H) Creatinine 0.58 - 0.96 mg/dL 1.41 (H) Sodium 136 - 144 mmol/L 129 (L) Potassium 3.7 - 5.1 mmol/L 4.9 Chloride 98 - 107 mmol/L 97 (L) CO2 22 - 30 mmol/L 19 (L) Anion Gap 8 - 15 mmol/L 13 eGFR >=60 mL/min/1.73m? 43 (L) Total Cholesterol, Nonfasting <200 mg/dL 274 (H) Triglycerides, Nonfasting <150 mg/dL 225 (H) HDL Cholesterol, Nonfasting >39 mg/dL 49 LDL Cholesterol Calculated, Nonfasting <100 mg/dL 182 (H) Non HDL Cholesterol, Nonfasting <130 mg/dL 225 (H) VLDL Cholesterol, Nonfasting <30 mg/dL 46 (H) Total Chol/HDL Ratio, Nonfasting <5.10 mg/dL 5.59 (H) LDL/HDL Ratio, Nonfasting <2.54 mg/dL 3.71 (H) Hemoglobin A1C 4.3 - 5.6 % 10.0 (H) Estimated Average Glucose mg/dL 240 Vitamin D 25 Hydroxy 31.0 - 80.0 ng/mL 39.1 Medical Decision Making: Problems: Moderate: 1+ chronic illnesses with change Data: Unique test(s) ordered: 3+ Risk: Moderate: Drug management Medical Decision Making Level: 4 - Moderate CNOV Observed: 03/14/2025 10:00 AM Status: COMPLETED Source: [facility] Office Visit ([facility]) NIKKIE BUCK ([id number]) 1965 F Date Time Provider Department 03/14/25 10:00 AM GEORGINA GONSALEZ [facility] During your visit today, we recorded the following information about you: Pulse Respiration Blood pressure Weight 73/minute 16/minute 157/79 63 kg Georgina Gonsalez APRN.CNS 03/14/2025 11:09 AM Signed SUBJECTIVE: Dilated Retinal Exam Never done Diabetic Foot Exam Never done Cervical Cancer Screening Never done Mammogram Screening due on 08/20/2023 Colorectal Cancer Screening due on 10/16/2024 HPI Nikkie Buck is a 59 year old female.PMH significnat or ACTIVE PROBLEM LIST Uncontrolled Type 2 Diabetes Mellitus With Hyperglycemia (Hcc) Chronic Midline Low Back Pain With Sciatica Chronic Obstructive Pulmonary Disease, Unspecified (Hcc) Hyperlipidemia, Unspecified Tobacco Use Abnormal CT Scan, Kidney Dyspepsia Epigastric Pain Right Upper Quadrant Abdominal Pain Chronic Gastritis Without Bleeding Gastric Wall Thickening Primary Hypertension Neuropathy Back Pain With History of Spinal Surgery Francisco (Obstructive Sleep Apnea) Dm Gastroparesis (Hcc) Abdominal Bloating Obesity Postlaminectomy Syndrome of Lumbar Region Sciatica Nicotine use disorder, F17.2 Osteoporosis Closed Displaced Comminuted Fracture of Shaft of Left Femur (Hcc) Presence of Right Artificial Hip Joint Presents today for a recheck. Nikkie Buck is a 59-year-old female with a history of diabetes, gastroparesis, and depression, presenting for management of diabetes and gastroparesis. Diabetes: - Blood glucose readings consistently >150 mg/dL every morning. - Noted improvement in blood glucose levels after increasing long-acting insulin to 29 units. - Using short-acting insulin more frequently; reports episodes of hypoglycemia with shaking and sweating. - Unable to use continuous glucose monitor due to issues with adhesion; relies on fingerstick glucose monitoring. - Reports difficulty adhering to diabetes management, stating, "I just don't care anymore." - Recent sodium levels were low; Nikkie was instructed to discontinue hydrochlorothiazide and start Lisinopril. Gastroparesis: - Reports significant abdominal pressure and pain, described as "pressure and pain" around the ribs. - Feels full after eating small amounts, stating, "I feel like I've ate half a bag." - Previously tried Reglan without relief. - Discussed potential surgical options with Dr. Arellano and a female doctor at [facility]. Depression: - Reports feeling "stuck" and "sick and tired of being sick and tired." - Currently taking Prozac; expresses interest in increasing the dosage. - Denies interest in speaking with a counselor, stating, "I got my doctors and I got me, and I got God." - Reports difficulty sleeping, stating, "I can't sleep. Last night was a real rough night. I got up at 2:30, been up all night." Chronic Pain: - Reports chronic pain from a fracture with "complete separation," stating, "I hurt, I'm in pain from it constantly." - Fracture occurred over a year ago; Nikkie expresses frustration with the slow healing process. - Scheduled to start physical therapy and pain management at the end of the month. - Requests a refill for pain medication. DIABETES MELLITUS: Without report of excessive thirst or increased frequency of urination, chest pain or dyspnea , numbness, tingling or pain in extremities, new or unusual visual symptoms, low sugar/hypoglycemic reactions, weight loss/gain, lightheadedness/dizziness, and bowel changes/loose stools. Patient's last HgA1C was Hemoglobin A1C (%) Date Value 03/07/2025 10.0 11/22/2024 8.6 ) ROS Constitutional: (+) insomnia Gastrointestinal: (+) abdominal pain, (+) abdominal bloating, (+) early satiety Musculoskeletal: (+) hip pain Skin: (+) diaphoresis Neurological: (+) tremor Psychiatric: (+) depressed mood Objective BP 157/79 Pulse 73 Resp 16 Wt 63 kg (138 lb 14.2 oz) BMI 27.13 kg/m? Physical Exam Vitals and nursing note reviewed. Constitutional: Appearance: Normal appearance. HENT: Head: Normocephalic and atraumatic. Eyes: Conjunctiva/sclera: Conjunctivae normal. Neck: Thyroid: No thyromegaly. Vascular: No JVD. Cardiovascular: Rate and Rhythm: Normal rate and regular rhythm. Heart sounds: Normal heart sounds. Pulmonary: Effort: Pulmonary effort is normal. Breath sounds: Normal breath sounds. Abdominal: General: Bowel sounds are normal. Palpations: Abdomen is soft. Tenderness: There is abdominal tenderness. Musculoskeletal: Lumbar back: Tenderness present. Left knee: Tenderness present. Right lower leg: Tenderness present. No edema. Left lower leg: No edema. Comments: brace left knee, walking with rollator, slow gait Skin: General: Skin is warm and dry. Neurological: General: No focal deficit present. Mental Status: She is alert and oriented to person, place, and time. ALLERGIES Allergen Reactions Duloxetine Swelling, Other: See Comments Other reaction(s): swelling Other reaction(s): Unknown Other reaction(s): swelling Nsaids (Non-Steroid* GI Upset Other reaction(s): GI Upset Other reaction(s): cramping, GI Upset, Other (See Comments), Upset Stomach Severe stomach pain Other reaction(s): GI Upset Penicillins Rash, Other: See Comments Other reaction(s): GI Upset, hives, horrible taste in mouth Other reaction(s): GI Upset, GI Upset, horrible taste in mouth, leaves a bad taste in her mouth., NEEDS FOLLOW-UP Other reaction(s): GI Upset, hives, horrible taste in mouth Pregabalin Swelling, Other: See Comments, Unknown Other reaction(s): swelling, Swelling Other reaction(s): Swelling, Unknown Other reaction(s): swelling, Swelling Amlodipine Intolerance leg swelling at 10 mg Celebrex [Celecoxib] Intolerance feet and leg swelling Penicillin G GI Upset Ibuprofen GI Upset Vomiting cramping Tylenol [Acetaminop* GI Upset Medications insulin glargine 100 unit/mL (3 mL) Inject 29 Units subcutaneously daily at bedtime. empagliflozin (JARDIANCE) 10 mg tablet Take 1 tablet by mouth daily with breakfast. lisinopril (ZESTRIL) 5 mg tablet Take 1 tablet by mouth once daily. tiZANidine (ZANAFLEX) 4 mg tablet Take 1 tablet by mouth three times a day as needed. gabapentin (NEURONTIN) 800 mg tablet Take 1 tablet by mouth four times daily for 90 days. albuterol HFA (PROVENTIL HFA, VENTOLIN HFA) 90 mcg/actuation inhaler Inhale 2 puffs as instructed every 4 hours as needed for wheezing/shortness of breath. polyethylene glycol 3350 17 gram/dose powder Take 17 g by mouth once daily as needed for constipation. Cholecalciferol, Vitamin D3, 50 mcg (2,000 unit) cap Take 1 capsule by mouth once daily. Insulin Willow, Disposable, (BD ULTRA-FINE PADMINI PEN NEEDLE) 32 gauge x 5/32" 1 Each three times a day. hydrALAZINE (APRESOLINE) 50 mg tablet Take 1 tablet by mouth four times daily. Hold if blood pressure is less than 110/60 ondansetron orally disintegrating (ZOFRAN ODT) 8 mg disintegrating tablet Take 1 tablet by mouth every 8 hours as needed for nausea/vomiting. omeprazole (PRILOSEC) 40 mg capsule Take 1 capsule by mouth two times a day. fluticasone-salmeterol HFA (ADVAIR HFA) 230-21 mcg/actuation inhaler Inhale 2 Puffs as instructed two times a day. loratadine (CLARITIN) 10 mg tablet Take 1 tablet by mouth once daily. FLUoxetine (PROZAC) 20 mg capsule Take 1 capsule by mouth once daily. [START ON 03/15/2025] oxyCODONE IR (ROXICODONE) 10 mg tab Take 1 tablet by mouth three times a day as needed for pain for up to 7 days. Patient should start on March 15, 2025. insulin lispro (HUMALOG KWIKPEN) 100 unit/mL Take 5 units for glucose 250 or greater at mealtime blood sugar diagnostic (ONETOUCH VERIO TEST STRIPS) test strip 1 Strip four times daily. Use as instructed CPAP/BIPAP/OTHER Type .CPAPSettings into a note to see current settings/supplies/DME information. PAST MEDICAL HISTORY Diagnosis Date Abdominal bloating 10/13/2023 Arthritis COPD (chronic obstructive pulmonary disease) (HCC) Diabetes (HCC) Hypertension Median arcuate ligament syndrome Sleep apnea Social History Tobacco Use Smoking status: Every Day Current packs/day: 1.00 Types: Cigarettes Smokeless tobacco: Never Tobacco comments: 3/4's of a pack daily Vaping Use Vaping status: Never Used Substance Use Topics Alcohol use: Never Drug use: Never Latest Ref Rng 08/09/2024 08/19/2024 09/22/2024 11/22/2024 Protein, Total 6.3 - 8.0 g/dL 7.2 Albumin 3.9 - 4.9 g/dL 4.2 Calcium 8.5 - 10.2 mg/dL 10.0 Bilirubin, Total 0.2 - 1.3 mg/dL 0.2 Alkaline Phosphatase 34 - 123 U/L 98 AST 13 - 35 U/L 14 ALT 7 - 38 U/L 10 Glucose 74 - 99 mg/dL 62 (L) BUN 7 - 21 mg/dL 35 (H) Creatinine 0.58 - 0.96 mg/dL 1.46 (H) Sodium 136 - 144 mmol/L 140 Potassium 3.7 - 5.1 mmol/L 5.5 (H) Chloride 98 - 107 mmol/L 104 CO2 22 - 30 mmol/L 26 Anion Gap 8 - 15 mmol/L 10 eGFR >=60 mL/min/1.73m? 41 (L) Creatinine, Ur Random (UCRR) 20.0 - 300.0 mg/dL 46.3 Albumin, Urine Random mg/L 1,548.3 Albumin/Creat Ratio <30 mg/g 3,344 (H) Hemoglobin A1C 4.3 - 5.6 % 8.9 (H) 8.6 (H) Estimated Average Glucose mg/dL 209 200 Vitamin D 25 Hydroxy 31.0 - 80.0 ng/mL 18.8 (L) 27.4 (L) Magnesium 1.7 - 2.3 mg/dL 2.4 (H) 1. Dysthymic (F34.1) - Symptoms of depression are persistent and impacting daily life. - Currently on escitalopram; consider increasing dosage. - Discussed potential benefits of counseling; patient to consider. 2. Uncontrolled type 2 diabetes mellitus with hyperglycemia (HCC) (E11.65) 3. Diabetic gastroparesis associated with type 2 diabetes mellitus (HCC) (E11.43) - Blood glucose levels consistently over 150 mg/dL in the morning; occasional hypoglycemic episodes reported. - Increased Lantus to 29 units at bedtime; fasting glucose levels around 120 mg/dL. - Using rapid-acting insulin based on sliding scale; experiencing hypoglycemia with current dosing. - Discontinue rapid-acting insulin unless blood glucose exceeds 250 mg/dL. - Initiated Januvia once daily to improve glycemic control and protect renal function. - Referred to clinic pharmacist Elian for diabetes management; appointment to be scheduled. - Discussed potential benefits of continuous glucose monitoring; pharmacist to assist with setup. - Gastroparesis symptoms include abdominal pain and early satiety; previously trialed Reglan without improvement. - Follow-up with Dr. Gonzales for surgical evaluation; appointment to be scheduled at earliest convenience. 4. Other chronic postprocedural pain (G89.28) - Chronic pain secondary to multiple surgical interventions. - Refill for pain management medication sent to pharmacy. - Upcoming pain management appointment scheduled. 5. Closed displaced comminuted fracture of shaft of left femur, sequela (S72.352S) - Persistent pain and delayed healing noted; fracture described as severe with complete separation. - Scheduled to begin physical therapy at the end of the month. 6. Presence of right artificial hip joint (Z96.641) 7. S/P right hip fracture (Z87.81) - Status post right hip fracture and subsequent hip replacement. - Continue monitoring for any complications or issues related to the artificial hip joint. 8. Essential (primary) hypertension (I10) - Recent lab results indicate hyponatremia. - Discontinued hydrochlorothiazide due to low sodium levels. - Resumed lisinopril therapy; patient to picker feeder medication from pharmacy. - Blood pressure slightly elevated today; continue monitoring. Recent lab results show uncontrolled / decreased control diabetes. Recommend increasing/glargine insulin from 27 to 29 units daily at bedtime. Addition of Jardiance for better diabetes control and protection for kidney function. Refer to pharmacist for diabetes management.. Phone, video or in office okay. Try sticking with diabetic diet and staying as active as she is able to do. Consider CGM, had problems setting this up and using in the past. For now recommend increasing fluid intake and liberalize sodium intake (increase salt intake). Calcium is elevated, if taking a multivitamin or calcium supplement recommend stopping that Cholesterol is elevated. Would recommend the above changes first then if feeling well consider addition of medication to help control cholesterol. Discontinue hydrochlorothiazide for hyponatremia (low sodium) and start taking lisinopril 5 mg daily instead. Office visit with me and recheck labs in 3 months. Latest Ref Rng 03/07/2025 Protein, Total 6.3 - 8.0 g/dL 7.2 Albumin 3.9 - 4.9 g/dL 4.1 Calcium 8.5 - 10.2 mg/dL 10.9 (H) Bilirubin, Total 0.2 - 1.3 mg/dL 0.2 Alkaline Phosphatase 34 - 123 U/L 80 AST 13 - 35 U/L 12 (L) ALT 7 - 38 U/L 10 Glucose 74 - 99 mg/dL 265 (H) BUN 7 - 21 mg/dL 51 (H) Creatinine 0.58 - 0.96 mg/dL 1.41 (H) Sodium 136 - 144 mmol/L 129 (L) Potassium 3.7 - 5.1 mmol/L 4.9 Chloride 98 - 107 mmol/L 97 (L) CO2 22 - 30 mmol/L 19 (L) Anion Gap 8 - 15 mmol/L 13 eGFR >=60 mL/min/1.73m? 43 (L) Total Cholesterol, Nonfasting <200 mg/dL 274 (H) Triglycerides, Nonfasting <150 mg/dL 225 (H) HDL Cholesterol, Nonfasting >39 mg/dL 49 LDL Cholesterol Calculated, Nonfasting <100 mg/dL 182 (H) Non HDL Cholesterol, Nonfasting <130 mg/dL 225 (H) VLDL Cholesterol, Nonfasting <30 mg/dL 46 (H) Total Chol/HDL Ratio, Nonfasting <5.10 mg/dL 5.59 (H) LDL/HDL Ratio, Nonfasting <2.54 mg/dL 3.71 (H) Hemoglobin A1C 4.3 - 5.6 % 10.0 (H) Estimated Average Glucose mg/dL 240 Vitamin D 25 Hydroxy 31.0 - 80.0 ng/mL 39.1 Medical Decision Making: Problems: Moderate: 1+ chronic illnesses with change Data: Unique test(s) ordered: 3+ Risk: Moderate: Drug management Medical Decision Making Level: 4 - Moderate Georgina Gonsalez APRN.CNS 03/14/2025 10:58 AM Addendum - Take Januvia (pill) once daily for diabetes control; prescription has been sent to your pharmacy. - Continue Lantus (long-acting insulin) 29 units at bedtime; keep using your phone alarm to remind you. - Only use your fast-acting (mealtime) insulin if your blood sugar rises above 250 mg/dL; Take 5 units - Stop taking hydrochlorothiazide. - Restart lisinopril as directed; picker feeder your prescription today to help control your blood pressure. - A refill for your pain medication has been sent to your pharmacy; continue it as prescribed for pain relief. - Arrange a diabetes management visit with Elian, our in-clinic pharmacist (by phone, video, or in-office); she will help review your diabetes mellitus management - Use your printed dosing scale for fast-acting insulin decisions; ask for a new copy if you don?t have one. Schedule a follow up with Dr. Gonzales - Keep your pain management and physical therapy appointments at the end of this month as planned. Georgina Gonsalez APRN.CNS 04/14/2025 7:02 AM Signed Addended by: GEORGINA GONSALEZ on: 04/14/2025 07:02 AM Modules accepted: Orders Georgina Gonsalez APRN.CNS 04/14/2025 8:07 AM Signed Addended by: GEORGINA GONSALEZ on: 04/14/2025 08:07 AM Modules accepted: Orders Allergies As of Date: 03/14/2025 Noted Allergy Reaction DULOXETINE 06/15/2021 7 - Swelling 14 - Other: See Comments Comments: Other reaction(s): swelling Other reaction(s): Unknown Other reaction(s): swelling NSAIDS (NON-STEROIDAL ANTI-INFLAM*08/15/2020 8 - GI Upset Comments: Other reaction(s): GI Upset Other reaction(s): cramping, GI Upset, Other (See Comments), Upset Stomach Severe stomach pain Other reaction(s): GI Upset PENICILLINS 08/15/2020 2 - Rash 14 - Other: See Comments Comments: Other reaction(s): GI Upset, hives, horrible taste in mouth Other reaction(s): GI Upset, GI Upset, horrible taste in mouth, leaves a bad taste in her mouth., NEEDS FOLLOW-UP Other reaction(s): GI Upset, hives, horrible taste in mouth PREGABALIN 08/15/2020 7 - Swelling 14 - Other: See Comments 16 - Unknown Comments: Other reaction(s): swelling, Swelling Other reaction(s): Swelling, Unknown Other reaction(s): swelling, Swelling AMLODIPINE 06/22/2024 5 - Intolerance Comments: leg swelling at 10 mg CELEBREX (CELECOXIB) 08/09/2024 5 - Intolerance Comments: feet and leg swelling PENICILLIN G 11/11/2021 8 - GI Upset IBUPROFEN 11/11/2021 8 - GI Upset Comments: Vomiting cramping TYLENOL (ACETAMINOPHEN) 10/27/2022 8 - GI Upset Date Reviewed: 03/14/2025 Reviewed by: Samantha Armstrong LPN - Fully Assessed Reason for Visit: F/U 3 Month [443] Primary Visit Diagnosis:Uncontrolled type 2 diabetes mellitus with hyperglycemia (HCC) [E11.65] Other Visit Diagnoses:Dysthymic [F34.1] Other chronic postprocedural pain [G89.28] Closed displaced comminuted fracture of shaft of left femur, sequela [S72.352S] Presence of right artificial hip joint [Z96.641] S/P right hip fracture [Z87.81] Diabetic gastroparesis associated with type 2 diabetes mellitus (HCC) [E11.43, K31.84] Essential (primary) hypertension [I10] Hyponatremia [E87.1] Hypercalcemia [E83.52] Order(s):FLUoxetine (PROZAC) 20 mg capsuleTake 1 capsule by mouth once daily.Disp: 90 capsuleRfl: 3 CONSULT TO PHARMACY [19991114] Order #: [id number]: 1 insulin lispro (HUMALOG KWIKPEN) 100 unit/mLTake 5 units for glucose 250 or greater at mealtimeDisp: Rfl: COMPREHENSIVE METABOLIC PANEL [SQCMP] Order #: [id number] FUTURE COMPLETE BLOOD COUNT AND DIFFERENTIAL [SQCBCDIF] Order #: [id number] FUTURE HEMOGLOBIN A1C [DELEF8J] Order #: [id number] FUTURE VITAMIN D 25 HYDROXY [SQVITD] Order #: [id number] FUTURE PTH INTACT [SQPTHI] Order #: [id number] FUTURE Prescriptions as of 04/14/2025 - oxyCODONE IR (ROXICODONE) 10 mg tab Take 1 tablet by mouth three times a day as needed for pain for up to 7 days. - Blood-Glucose Sensor (FREESTYLE KATHERINE 3 PLUS SENSOR) jaguar Apply new sensor every fifteen (15) days to upper arm. - insulin glargine 100 unit/mL (3 mL) Inject 30 Units subcutaneously daily at bedtime. - FLUoxetine (PROZAC) 20 mg capsule Take 1 capsule by mouth once daily. - insulin lispro (HUMALOG KWIKPEN) 100 unit/mL Take 5 units for glucose 250 or greater at mealtime - empagliflozin (JARDIANCE) 10 mg tablet Take 1 tablet by mouth daily with breakfast. - lisinopril (ZESTRIL) 5 mg tablet Take 1 tablet by mouth once daily. - tiZANidine (ZANAFLEX) 4 mg tablet Take 1 tablet by mouth three times a day as needed. - gabapentin (NEURONTIN) 800 mg tablet Take 1 tablet by mouth four times daily for 90 days. - albuterol HFA (PROVENTIL HFA, VENTOLIN HFA) 90 mcg/actuation inhaler Inhale 2 puffs as instructed every 4 hours as needed for wheezing/shortness of breath. - polyethylene glycol 3350 17 gram/dose powder Take 17 g by mouth once daily as needed for constipation. - Cholecalciferol, Vitamin D3, 50 mcg (2,000 unit) cap Take 1 capsule by mouth once daily. - Insulin Willow, Disposable, (BD ULTRA-FINE PADMINI PEN NEEDLE) 32 gauge x 5/32" 1 Each three times a day. - hydrALAZINE (APRESOLINE) 50 mg tablet Take 1 tablet by mouth four times daily. Hold if blood pressure is less than 110/60 - ondansetron orally disintegrating (ZOFRAN ODT) 8 mg disintegrating tablet Take 1 tablet by mouth every 8 hours as needed for nausea/vomiting. - omeprazole (PRILOSEC) 40 mg capsule Take 1 capsule by mouth two times a day. - blood sugar diagnostic ([employer] VERIO TEST STRIPS) test strip 1 Strip four times daily. Use as instructed - fluticasone-salmeterol HFA (ADVAIR HFA) 230-21 mcg/actuation inhaler Inhale 2 Puffs as instructed two times a day. - loratadine (CLARITIN) 10 mg tablet Take 1 tablet by mouth once daily. - CPAP/BIPAP/OTHER Type .CPAPSettings into a note to see current settings/supplies/DME information. Problem List As Of Date 03/14/2025 Noted Resolved Uncontrolled type 2 diabetes mellitus with hype*08/28/2022 Chronic midline low back pain with sciatica [M5*08/28/2022 Chronic obstructive lung disease (HCC) [J44.9] 10/18/2022 11/05/2022 Chronic obstructive pulmonary disease, unspecif*11/30/2021 Hyperlipidemia, unspecified [E78.5] 06/15/2021 Tobacco use [Z72.0] 11/05/[address] scan, kidney [R93.429] 11/05/2022 Dyspepsia [R10.13] 02/21/2023 Epigastric pain [R10.13] 02/21/2023 Right upper quadrant abdominal pain [R10.11] 02/21/2023 Chronic gastritis without bleeding [K29.50] 03/12/2023 Gastric wall thickening [K31.89] 03/12/2023 Primary hypertension [I10] 06/11/2023 Neuropathy [G62.9] 06/11/2023 Back pain with history of spinal surgery [M54.9*06/11/2023 FRANCISCO (obstructive sleep apnea) [G47.33] 06/11/2023 DM gastroparesis (HCC) [E11.43, K31.84] 07/04/2023 Abdominal bloating [R14.0] 10/13/2023 Obesity [E66.9] 10/13/2023 Diagnosed: 10/13/2023 Postlaminectomy syndrome of lumbar region [M96.*10/31/2022 Diagnosed: 10/13/2023 Sciatica [M54.30] 11/18/2022 Diagnosed: 10/13/2023 Fall at home, initial encounter [W19.XXXA, Y92.*11/26/2023 12/04/2023 Nicotine use disorder, F17.2 [F17.200] 11/28/2023 Osteoporosis [M81.0] 08/20/2024 Closed displaced comminuted fracture of shaft o*11/08/2024 Presence of right artificial hip joint [Z96.641]11/08/2024 Other instructions from your clinician: - Take Januvia (pill) once daily for diabetes control; prescription has been sent to your pharmacy. - Continue Lantus (long-acting insulin) 29 units at bedtime; keep using your phone alarm to remind you. - Only use your fast-acting (mealtime) insulin if your blood sugar rises above 250 mg/dL; Take 5 units - Stop taking hydrochlorothiazide. - Restart lisinopril as directed; picker feeder your prescription today to help control your blood pressure. - A refill for your pain medication has been sent to your pharmacy; continue it as prescribed for pain relief. - Arrange a diabetes management visit with Elian, our in-clinic pharmacist (by phone, video, or in-office); she will help review your diabetes mellitus management - Use your printed dosing scale for fast-acting insulin decisions; ask for a new copy if you don?t have one. Schedule a follow up with Dr. Gonzales - Keep your pain management and physical therapy appointments at the end of this month as planned. Prescriptions ordered this encounter Disp Refills Start End FLUOXETINE 20 MG CAPSULE 90 c* 3 03/14/2025 Route: PO Sig: Take 1 capsule by mouth once daily. OXYCODONE 10 MG TABLET 21 t* 0 03/15/2025 03/19/2025 Route: PO Sig: Take 1 tablet by mouth three times a day as needed for pain for up to 7 days. Patient should start on March 15, 2025. INSULIN LISPRO (U-100) 100 UNIT/ML S* 03/14/2025 Class: Med Update Sig: Take 5 units for glucose 250 or greater at mealtime Medications Discontinued During This Encounter Prescriptions - FLUoxetine (PROZAC) 10 mg capsule (Discontinued) Take 1 capsule by mouth once daily. - oxyCODONE IR (ROXICODONE) 10 mg tab (Discontinued) Take 1 tablet by mouth three times a day as needed for pain for up to 7 days. Patient should start on March 08, 2025. - insulin lispro (HUMALOG KWIKPEN) 100 unit/mL (Discontinued) Inject 8 Units subcutaneously three times a day before meals. Taking as needed Level of Service: OFFICE/OUTPATIENT ESTABLISHED MOD MDM 30 MIN [41790] Additional E/M codes: VISIT CPLX INHERENT EANDM ASSOC WITH MED * Follow-up and Disposition History for Encounter Date Provider Department Center 03/14/2025 [id number], TERRI INTMWS [facility] Encounter Status:Closed by GEORGINA GONSALEZ on 03/14/25 CNPN Observed: 03/14/2025 12:00 AM Status: COMPLETED Source: [facility] Telephone (JANINEWST) NIKKIE BUCK ([id number]) 1965 F Date Time Provider Department 03/14/25 ROSA WADSWORTH During your visit today, we recorded the following information about you: Rosa Wadsworth MSW 03/14/2025 10:11 AM Signed George called patient to discuss home fire alarm installer 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 Patient notes that she is currently at a doctor office appt. Patient asks that George call back another time. Rsoa Wadsworth MSW 03/16/2025 9:17 AM Signed George spoke with patient and she notes that she remembers that name of [facility] and thinks that some one from there is supposed to come out and see her. George discussed that [facility] provides home visits to assess for needs such as bathing, grooming, mobility. Patient notes that she has issues with all of those ADL's. GEORGE called [facility] and they have patient down for home visit done by [facility]hal on 03/30/25 between 10-10:30 for assessment. George called patient back and let her know date and time for Passport assessment. George also confirmed appt time with our [facility] Pharmacist for 03/17. Patient thanked George for info. Allergies As of Date: 03/14/2025 Noted Allergy Reaction DULOXETINE 06/15/2021 7 - Swelling 14 - Other: See Comments Comments: Other reaction(s): swelling Other reaction(s): Unknown Other reaction(s): swelling NSAIDS (NON-STEROIDAL ANTI-INFLAM*08/15/2020 8 - GI Upset Comments: Other reaction(s): GI Upset Other reaction(s): cramping, GI Upset, Other (See Comments), Upset Stomach Severe stomach pain Other reaction(s): GI Upset PENICILLINS 08/15/2020 2 - Rash 14 - Other: See Comments Comments: Other reaction(s): GI Upset, hives, horrible taste in mouth Other reaction(s): GI Upset, GI Upset, horrible taste in mouth, leaves a bad taste in her mouth., NEEDS FOLLOW-UP Other reaction(s): GI Upset, hives, horrible taste in mouth PREGABALIN 08/15/2020 7 - Swelling 14 - Other: See Comments 16 - Unknown Comments: Other reaction(s): swelling, Swelling Other reaction(s): Swelling, Unknown Other reaction(s): swelling, Swelling AMLODIPINE 06/22/2024 5 - Intolerance Comments: leg swelling at 10 mg CELEBREX (CELECOXIB) 08/09/2024 5 - Intolerance Comments: feet and leg swelling PENICILLIN G 11/11/2021 8 - GI Upset IBUPROFEN 11/11/2021 8 - GI Upset Comments: Vomiting cramping TYLENOL (ACETAMINOPHEN) 10/27/2022 8 - GI Upset Date Reviewed: 03/14/2025 Reviewed by: Samantha Armstrong LPN - Fully Assessed Prescriptions as of 03/16/2025 - FLUoxetine (PROZAC) 20 mg capsule Take 1 capsule by mouth once daily. - oxyCODONE IR (ROXICODONE) 10 mg tab Take 1 tablet by mouth three times a day as needed for pain for up to 7 days. Patient should start on March 15, 2025. - insulin lispro (HUMALOG KWIKPEN) 100 unit/mL Take 5 units for glucose 250 or greater at mealtime - insulin glargine 100 unit/mL (3 mL) Inject 29 Units subcutaneously daily at bedtime. - empagliflozin (JARDIANCE) 10 mg tablet Take 1 tablet by mouth daily with breakfast. - lisinopril (ZESTRIL) 5 mg tablet Take 1 tablet by mouth once daily. - tiZANidine (ZANAFLEX) 4 mg tablet Take 1 tablet by mouth three times a day as needed. - gabapentin (NEURONTIN) 800 mg tablet Take 1 tablet by mouth four times daily for 90 days. - albuterol HFA (PROVENTIL HFA, VENTOLIN HFA) 90 mcg/actuation inhaler Inhale 2 puffs as instructed every 4 hours as needed for wheezing/shortness of breath. - polyethylene glycol 3350 17 gram/dose powder Take 17 g by mouth once daily as needed for constipation. - Cholecalciferol, Vitamin D3, 50 mcg (2,000 unit) cap Take 1 capsule by mouth once daily. - Insulin Willow, Disposable, (BD ULTRA-FINE PADMINI PEN NEEDLE) 32 gauge x 5/32" 1 Each three times a day. - hydrALAZINE (APRESOLINE) 50 mg tablet Take 1 tablet by mouth four times daily. Hold if blood pressure is less than 110/60 - ondansetron orally disintegrating (ZOFRAN ODT) 8 mg disintegrating tablet Take 1 tablet by mouth every 8 hours as needed for nausea/vomiting. - omeprazole (PRILOSEC) 40 mg capsule Take 1 capsule by mouth two times a day. - blood sugar diagnostic ([employer] VERIO TEST STRIPS) test strip 1 Strip four times daily. Use as instructed - fluticasone-salmeterol HFA (ADVAIR HFA) 230-21 mcg/actuation inhaler Inhale 2 Puffs as instructed two times a day. - loratadine (CLARITIN) 10 mg tablet Take 1 tablet by mouth once daily. - CPAP/BIPAP/OTHER Type .CPAPSettings into a note to see current settings/supplies/DME information. Problem List As Of Date 03/14/2025 Noted Resolved Uncontrolled type 2 diabetes mellitus with hype*08/28/2022 Chronic midline low back pain with sciatica [M5*08/28/2022 Chronic obstructive lung disease (HCC) [J44.9] 10/18/2022 11/05/2022 Chronic obstructive pulmonary disease, unspecif*11/30/2021 Hyperlipidemia, unspecified [E78.5] 06/15/2021 Tobacco use [Z72.0] 11/05/[address] scan, kidney [R93.429] 11/05/2022 Dyspepsia [R10.13] 02/21/2023 Epigastric pain [R10.13] 02/21/2023 Right upper quadrant abdominal pain [R10.11] 02/21/2023 Chronic gastritis without bleeding [K29.50] 03/12/2023 Gastric wall thickening [K31.89] 03/12/2023 Primary hypertension [I10] 06/11/2023 Neuropathy [G62.9] 06/11/2023 Back pain with history of spinal surgery [M54.9*06/11/2023 FRANCISCO (obstructive sleep apnea) [G47.33] 06/11/2023 DM gastroparesis (HCC) [E11.43, K31.84] 07/04/2023 Abdominal bloating [R14.0] 10/13/2023 Obesity [E66.9] 10/13/2023 Diagnosed: 10/13/2023 Postlaminectomy syndrome of lumbar region [M96.*10/31/2022 Diagnosed: 10/13/2023 Sciatica [M54.30] 11/18/2022 Diagnosed: 10/13/2023 Fall at home, initial encounter [W19.XXXA, Y92.*11/26/2023 12/04/2023 Nicotine use disorder, F17.2 [F17.200] 11/28/2023 Osteoporosis [M81.0] 08/20/2024 Closed displaced comminuted fracture of shaft o*11/08/2024 Presence of right artificial hip joint [Z96.641]11/08/2024 Encounter Status:Closed by ROSA WADSWORTH on 03/16/25 HARMAN Observed: 03/09/2025 12:00 AM Status: COMPLETED Source: [facility] Telephone (PHMEWO) NIKKIE BUCK ([id number]) 1965 F Date Time Provider Department 03/09/25 GEORGINA GONSALEZ NINA During your visit today, we recorded the following information about you: Taylor Valladares 03/09/2025 10:46 AM Signed Telephoned the patient to schedule Primary Care pharmacy appt. She was feeling ill and asked that I call her next week when she's feeling better. Sending a [employer] message. Taylor Valladares 03/15/2025 10:33 AM Signed Per patient's Appt Desk, patient is scheduled on 03/17/2025 for Primary Care Pharmacy visit. Allergies As of Date: 03/09/2025 Noted Allergy Reaction DULOXETINE 06/15/2021 7 - Swelling 14 - Other: See Comments Comments: Other reaction(s): swelling Other reaction(s): Unknown Other reaction(s): swelling NSAIDS (NON-STEROIDAL ANTI-INFLAM*08/15/2020 8 - GI Upset Comments: Other reaction(s): GI Upset Other reaction(s): cramping, GI Upset, Other (See Comments), Upset Stomach Severe stomach pain Other reaction(s): GI Upset PENICILLINS 08/15/2020 2 - Rash 14 - Other: See Comments Comments: Other reaction(s): GI Upset, hives, horrible taste in mouth Other reaction(s): GI Upset, GI Upset, horrible taste in mouth, leaves a bad taste in her mouth., NEEDS FOLLOW-UP Other reaction(s): GI Upset, hives, horrible taste in mouth PREGABALIN 08/15/2020 7 - Swelling 14 - Other: See Comments 16 - Unknown Comments: Other reaction(s): swelling, Swelling Other reaction(s): Swelling, Unknown Other reaction(s): swelling, Swelling AMLODIPINE 06/22/2024 5 - Intolerance Comments: leg swelling at 10 mg CELEBREX (CELECOXIB) 08/09/2024 5 - Intolerance Comments: feet and leg swelling PENICILLIN G 11/11/2021 8 - GI Upset IBUPROFEN 11/11/2021 8 - GI Upset Comments: Vomiting cramping TYLENOL (ACETAMINOPHEN) 10/27/2022 8 - GI Upset Date Reviewed: 03/07/2025 Reviewed by: Clare Lehman MA - Fully Assessed Reason for Visit: Appointment [186] Cmt: Primary Care Pharmacy Appt Prescriptions as of 03/15/2025 - FLUoxetine (PROZAC) 20 mg capsule Take 1 capsule by mouth once daily. - oxyCODONE IR (ROXICODONE) 10 mg tab Take 1 tablet by mouth three times a day as needed for pain for up to 7 days. Patient should start on March 15, 2025. - insulin lispro (HUMALOG KWIKPEN) 100 unit/mL Take 5 units for glucose 250 or greater at mealtime - insulin glargine 100 unit/mL (3 mL) Inject 29 Units subcutaneously daily at bedtime. - empagliflozin (JARDIANCE) 10 mg tablet Take 1 tablet by mouth daily with breakfast. - lisinopril (ZESTRIL) 5 mg tablet Take 1 tablet by mouth once daily. - tiZANidine (ZANAFLEX) 4 mg tablet Take 1 tablet by mouth three times a day as needed. - gabapentin (NEURONTIN) 800 mg tablet Take 1 tablet by mouth four times daily for 90 days. - albuterol HFA (PROVENTIL HFA, VENTOLIN HFA) 90 mcg/actuation inhaler Inhale 2 puffs as instructed every 4 hours as needed for wheezing/shortness of breath. - polyethylene glycol 3350 17 gram/dose powder Take 17 g by mouth once daily as needed for constipation. - Cholecalciferol, Vitamin D3, 50 mcg (2,000 unit) cap Take 1 capsule by mouth once daily. - Insulin Willow, Disposable, (BD ULTRA-FINE PADMINI PEN NEEDLE) 32 gauge x 5/32" 1 Each three times a day. - hydrALAZINE (APRESOLINE) 50 mg tablet Take 1 tablet by mouth four times daily. Hold if blood pressure is less than 110/60 - ondansetron orally disintegrating (ZOFRAN ODT) 8 mg disintegrating tablet Take 1 tablet by mouth every 8 hours as needed for nausea/vomiting. - omeprazole (PRILOSEC) 40 mg capsule Take 1 capsule by mouth two times a day. - blood sugar diagnostic ([employer] VERIO TEST STRIPS) test strip 1 Strip four times daily. Use as instructed - fluticasone-salmeterol HFA (ADVAIR HFA) 230-21 mcg/actuation inhaler Inhale 2 Puffs as instructed two times a day. - loratadine (CLARITIN) 10 mg tablet Take 1 tablet by mouth once daily. - CPAP/BIPAP/OTHER Type .CPAPSettings into a note to see current settings/supplies/DME information. Problem List As Of Date 03/09/2025 Noted Resolved Uncontrolled type 2 diabetes mellitus with hype*08/28/2022 Chronic midline low back pain with sciatica [M5*08/28/2022 Chronic obstructive lung disease (HCC) [J44.9] 10/18/2022 11/05/2022 Chronic obstructive pulmonary disease, unspecif*11/30/2021 Hyperlipidemia, unspecified [E78.5] 06/15/2021 Tobacco use [Z72.0] 11/05/[address] scan, kidney [R93.429] 11/05/2022 Dyspepsia [R10.13] 02/21/2023 Epigastric pain [R10.13] 02/21/2023 Right upper quadrant abdominal pain [R10.11] 02/21/2023 Chronic gastritis without bleeding [K29.50] 03/12/2023 Gastric wall thickening [K31.89] 03/12/2023 Primary hypertension [I10] 06/11/2023 Neuropathy [G62.9] 06/11/2023 Back pain with history of spinal surgery [M54.9*06/11/2023 FRANCISCO (obstructive sleep apnea) [G47.33] 06/11/2023 DM gastroparesis (HCC) [E11.43, K31.84] 07/04/2023 Abdominal bloating [R14.0] 10/13/2023 Obesity [E66.9] 10/13/2023 Diagnosed: 10/13/2023 Postlaminectomy syndrome of lumbar region [M96.*10/31/2022 Diagnosed: 10/13/2023 Sciatica [M54.30] 11/18/2022 Diagnosed: 10/13/2023 Fall at home, initial encounter [W19.XXXA, Y92.*11/26/2023 12/04/2023 Nicotine use disorder, F17.2 [F17.200] 11/28/2023 Osteoporosis [M81.0] 08/20/2024 Closed displaced comminuted fracture of shaft o*11/08/2024 Presence of right artificial hip joint [Z96.641]11/08/2024 Encounter Status:Closed by TAYLOR VALLADARES on 03/15/25 25(OH)D3 SERPL-MCNC Collected: 03/07/20 8:13 AM Status: F Source: [place] Comment: Specimen Type : BLOOD SPECIMEN Ordering Facility: [facility] Address: [address] [place] [address] TYPE CODE TESTS RESULT OUT OF RANGE REFERENCE UNITS LAB 1988-11([facility]) 25(OH)D3 SerPl-mCnc 39.1 31.0-80.0 ng/mL Result Comment: Classificati on of 25 OH Vitamin D status: Deficiency/Insufficiency: < or = 30 ng/ml. Sufficiency/Optimal Levels: 31-80 ng/mL Toxicity: > 100 ng/mL. Test performed by chemiluminescent immunoassay. Performed By: #### 1988-11 ## ## [facility] CLIA [id number] [address] [place] [address] [place] COMP METAB 2000 PNL SERPL Collected: 8:13 AM Status: F Source: [place] Comment: Specimen Type : BLOOD SPECIMEN Ordering Facility: [facility] Address: [address] [place] [address] TYPE CODE TESTS RESULT OUT OF RANGE REFERENCE UNITS LAB 2885-2(LOINC) Prot SerPl-mCnc 7.2 6.3-8.0 g/dL LAB 1751-7(LOINC) Albumin SerPl-mCnc 4.1 3.9-4.9 g/dL LAB 76825-1(LOINC) Calcium SerPl-mCnc 10.9 High 8.5-10.2 mg/dL LAB 1975-2(LOINC) Bilirub SerPl-mCnc 0.2 0.2-1.3 mg/dL LAB 6768-6(LOINC) ALP SerPl-cCnc 80 34-123 U/L LAB 1920-8(LOINC) AST SerPl-cCnc 12 Low 13-35 U/L LAB 1742-6(LOINC) ALT SerPl-cCnc 10 7-38 U/L LAB 2345-7(LOINC) Glucose SerPl-mCnc 265 High 74-99 mg/dL Result Comment: The [place] Diabetes Association (ADA) provides guidance for cutoff values for fasting glucose and random glucose. The ADA defines fasting as no caloric intake for at least 8 hours. Fasting plasma glucose results between 100 to 125 mg/dL indicate increased risk for diabetes (prediabetes). Fasting plasma glucose results greater than or equal to 126 mg/dL meet the criteria for diagnosis of diabetes. In the absence of unequivocal hyperglycemia, results should be confirmed by repeat testing. In a patient with classic symptoms of hyperglycemia or hyperglycemic crisis, random plasma glucose results greater than or equal to 200 mg/dL meet the criteria for diagnosis of diabetes. Reference: Standards of Medical Care in Diabetes 2016, [place] Diabetes Association. Diabetes Care. 2016.39(Suppl 1). LAB 3094-0(LOINC) BUN SerPl-mCnc 51 High 7-21 mg/ dL LAB 2160-0(LOINC) Creat SerPl-mCnc 1.41 High 0.58-0.96 mg/dL LAB 2951-2(LOINC) Sodium SerPl-sCnc 129 Low 136-144 mmol/L LAB 2823-3(LOINC) Potassium SerPl-sCnc 4.9 3.7-5.1 mmol/L LAB 2075-0(LOINC) Chloride SerPl-sCnc 97 Low 98-107 mmol/L LAB 2028-9(LOINC) CO2 SerPl-sCnc 19 Low 22-30 mmo l/L LAB 79024-9(LOINC) Anion Gap SerPl-sCnc 13 8-15 mmol/L LAB 94259-1(LOINC) Creatinine + eGFR Pnl SerPlBld 43 Low >=60 mL/min/1 .73m??? Result Comment: Estimated Gl omerular Filtration Rate (eGFR) is calculated using the 2020 CKD-EPI creatinine equation. This equation utilizes serum creatinine, sex, and age as parameters. The creatinine assay has traceable calibration to isotope dilution-mass spectrometry. Refer to KDIGO guidelines for clinical interpretation. In patients with unstable renal function, e.g. those with acute kidney injury, the eGFR may not accurately reflect actual GFR. Performed By: #### LIPNF, 24 323-8 #### [facility] CLIA [id number] [address] [place] [address] [place] [address] [place] LIPID PANEL, NONFASTING Collected: 03/07/2025 8:13 AM Status: F Source: [facility] Order Comment: Specimen Type : BLOOD SPECIMEN Ordering Facility: [facility] Address: [address] [place] [address] TYPE CODE TESTS RESULT OUT OF RANGE REFERENCE UNITS LAB CHOLNF TOTAL CHOLESTEROL NF 274 High <200 mg/dL Result Comment: <200 mg/dL, Desirable 200-239 mg/dL, Borderline high >239 mg/dL, High LAB TRIGNF TRIGLYCERIDES, NF 225 High <150 mg/dL Result Comment: <150 mg/dL, Normal 150-199 mg/dL, Borderline high 200-499 mg/dL, High >499 mg/dL, Very high LAB HDLNF HDL CHOLESTEROL, NF 49 >39 mg/dL Result Comment: 40-59 mg/dL, Acceptable >59 mg/dL, High: Negative risk factor for coronary heart disease <40 mg/dL, Low: Positive risk factor for coronary heart disease LAB LDLNF LDL CHOLESTEROL CALCULATED, NF 182 High <100 mg/dL Result Comment: <100 mg/dL, Optimal 100-129 mg/dL, Near optimal/above optimal 130-159 mg/dL, Borderline high 160-189 mg/dL, High >189 mg/dL, Very high Secondary prevention optimal LDL Cholesterol levels are recommended to be <70 mg/dL LDL cholesterol is calculated using the Dotson-NIH equation. LAB NOHDLN NON HDL CHOL, NF 225 High <130 mg/dL Result Comment: <130 mg/dL, Optimal 130-159 mg/dL, Near optimal/above optimal 160-189 mg/dL, Borderline high 190-219 mg/dL, High >219 mg/dL, Very high Secondary prevention optimal non HDL Cholesterol levels are recommended to be <100 mg/dL LAB VLDLNF VLDL CHOLESTEROL, NF 46 High <30 mg/dL LAB TCHDLN T CHOL/HDL RATIO NF 5.59 High <5.10 mg/dL LAB LDLHDN LDL/HDL RATIO, NF 3.71 High <2.54 mg/dL Result Comment: Reference: 1. National Cholesterol Education Program ATP III Guideline At-A-Glance Quick Desk Reference: National Heart, Lung, and Blood [place]. National Institutes of Health. 2001: NIH Publication No. 01-3305. 2. An International Atherosclerosis Society position paper: global recommendations for the management of dyslipidemia: executive summary, Atherosclerosis. 2014: 232(2):410-413. Performed By: #### LIPNF, 24 323-8 #### [facility] CLIA [id number] [address] [place] [address] [place] DEPRECATED HGB A1C BLD Collected: 03/07 8:13 AM Status: F Source: [facility] Order Comment: Specimen Type : BLOOD SPECIMEN Ordering Facility: [facility] Address: [address] [place] [address] TYPE CODE TESTS RESULT OUT OF RANGE REFERENCE UNITS LAB 4548-4(LOINC) HbA1c MFr Bld 10.0 High 4.3-5.6 % Result Comment: [place] Bernie betes Association guidelines indicate that patients with HgbA1c in the range 5.7-6.4% are at increased risk for development of diabetes, and intervention by lifestyle modification may be beneficial. HgbA1c greater or equal to 6.5% is considered diagnostic of diabetes. LAB 03356-2(LOINC) Est. average glucose Bld gHb Est-mCnc 240 mg/dL Result Comment: eAG: (Estima samy average glucose) is a calculated value from HgbA1c and is hospital insurance representative of the average blood glucose level in the last 2-3 month period. Performed By: #### 17731-0 # ### [facility] CLIA [id number] [address] [place] [address] [place] CNOV Observed: 03/07/2025 8:00 AM Status: COMPLETED Source: [facility] Office Visit (INTMWS) NIKKIE BUCK ([id number]) 1965 F Date Time Provider Department 03/07/25 8:00 AM GEORGINA GONSALEZ INTMWS During your visit today, we recorded the following information about you: Pulse Respiration Blood pressure Weight 75/minute 14/minute 132/70 63.5 kg Georgina Gonsalez APRN.PATIENT SERVICES COORDINATOR 03/08/2025 11:31 AM Addendum SUBJECTIVE: Dilated Retinal Exam Never done Diabetic Foot Exam Never done Cervical Cancer Screening Never done Mammogram Screening due on 08/20/2023 Colorectal Cancer Screening due on 10/16/2024 LDL Cholesterol due on 11/30/2024 HbA1C due on 02/22/2025 HPI Nikkie Buck is a 59 year old female.PMH significnat or ACTIVE PROBLEM LIST Uncontrolled Type 2 Diabetes Mellitus With Hyperglycemia (Hcc) Chronic Midline Low Back Pain With Sciatica Chronic Obstructive Pulmonary Disease, Unspecified (Hcc) Hyperlipidemia, Unspecified Tobacco Use Abnormal CT Scan, Kidney Dyspepsia Epigastric Pain Right Upper Quadrant Abdominal Pain Chronic Gastritis Without Bleeding Gastric Wall Thickening Primary Hypertension Neuropathy Back Pain With History of Spinal Surgery Francisco (Obstructive Sleep Apnea) Dm Gastroparesis (Hcc) Abdominal Bloating Obesity Postlaminectomy Syndrome of Lumbar Region Sciatica Nicotine use disorder, F17.2 Osteoporosis Closed Displaced Comminuted Fracture of Shaft of Left Femur (Hcc) Presence of Right Artificial Hip Joint Presents today for a recheck. At her last visit she was started on paroxetine for depression. She returns today for recheck of depression and medication, chronic pain, concern for assistance needed at home. ADLs: IADLs: Depression: - Currently taking paroxetine; believes it may be helping. - Reports feeling overwhelmed and struggling with daily activities. - Denies interest in counseling. Chronic Pain: - Reports significant physical pain, primarily in the legs and hips. - Has a total hip replacement on the right side; experiences pain if not careful with movements. - Left leg drags and is difficult to move voluntarily. - Reports neuropathy and cold sensation in legs from knees down. - Taking oxycodone, which helps manage pain; requests to increase to four times a day. - Upcoming pain management appointment on March 31. - Missed previous pain management appointment due to transportation issues. - Scheduled for water therapy at [facility] on March 22. Reports initial back surgery started her current problems with pain and has persisted. Diabetes: - Reports high blood sugar readings, with a recent reading over 300 mg/dL before breakfast. - Taking 27 units of long-acting insulin and 5 units of fast-acting insulin. - Admits to eating Jell-O before bed, which may have contributed to high blood sugar. - Scheduled for routine lab work, including hemoglobin A1c and lipid panel. Functional Limitations: - Struggles with daily activities such as showering, cooking, and cleaning. - Lives alone and has no assistance at home. - Requests home health aid to help with meal preparation, hygiene, and housekeeping. - Feels physically worn out and fears falling. - Has a shoe caser through her insurance, Marlen, who is helping to arrange home health aid, states she needs medical records. Lifestyle: - Enjoys gardening and has a small garden with tomato plants. - Uses [facility] for pharmacy refills. - Drinks coffee with whole milk; avoids powdered creamer due to sugar content. - Scheduled for a mammogram and needs to reschedule an eye appointment at [facility]. - Had a colonoscopy last year and is due for a one year follow up. Missed pain management appt due to late transportation through her insurance and had to reschedule. HTN: Without report of headache, chest pain, palpitations, dyspnea, peripheral edema, orthopnea, fatigue, and PND. Last 14 Encounter BP Readings: Date: BP: 02/15/2025 134/80 01/25/2025 128/74 12/31/2024 126/72 12/03/2024 167/76 12/03/2024 151/68 09/27/2024 115/74 09/22/2024 124/78 08/19/2024 179/85 08/09/2024 138/80 07/29/2024 168/93 06/21/2024 157/99 05/20/2024 168/94 05/05/2024 128/70 04/15/2024 128/75 DIABETES MELLITUS: Without report of excessive thirst or increased frequency of urination, chest pain or dyspnea , numbness, tingling or pain in extremities, new or unusual visual symptoms, low sugar/hypoglycemic reactions, weight loss/gain, lightheadedness/dizziness, and bowel changes/loose stools. Patient's last HgA1C was Hemoglobin A1C (%) Date Value 11/22/2024 8.6 08/09/2024 8.9 ) ROS Constitutional: (+) fatigue Gastrointestinal: (+) nausea Musculoskeletal: (+) leg pain, (+) bilateral hip pain, (+) difficulty bending, (+) left leg weakness Skin: (+) cold sensation in lower legs Neurological: (+) memory loss Objective BP 132/70 Pulse 75 Resp 14 Wt 63.5 kg (139 lb 15.9 oz) SpO2 97% BMI 27.34 kg/m? Physical Exam Vitals and nursing note reviewed. Constitutional: Appearance: Normal appearance. HENT: Head: Normocephalic and atraumatic. Eyes: Conjunctiva/sclera: Conjunctivae normal. Neck: Thyroid: No thyromegaly. Vascular: No JVD. Cardiovascular: Rate and Rhythm: Normal rate and regular rhythm. Heart sounds: Normal heart sounds. Pulmonary: Effort: Pulmonary effort is normal. Breath sounds: Normal breath sounds. Abdominal: General: Bowel sounds are normal. Palpations: Abdomen is soft. Musculoskeletal: Lumbar back: Tenderness present. Left knee: Tenderness present. Right lower leg: Tenderness present. No edema. Left lower leg: No edema. Comments: brace left knee, walking with rollator, slow gait Skin: General: Skin is warm and dry. Neurological: General: No focal deficit present. Mental Status: She is alert and oriented to person, place, and time. ALLERGIES Allergen Reactions Duloxetine Swelling, Other: See Comments Other reaction(s): swelling Other reaction(s): Unknown Other reaction(s): swelling Nsaids (Non-Steroid* GI Upset Other reaction(s): GI Upset Other reaction(s): cramping, GI Upset, Other (See Comments), Upset Stomach Severe stomach pain Other reaction(s): GI Upset Penicillins Rash, Other: See Comments Other reaction(s): GI Upset, hives, horrible taste in mouth Other reaction(s): GI Upset, GI Upset, horrible taste in mouth, leaves a bad taste in her mouth., NEEDS FOLLOW-UP Other reaction(s): GI Upset, hives, horrible taste in mouth Pregabalin Swelling, Other: See Comments, Unknown Other reaction(s): swelling, Swelling Other reaction(s): Swelling, Unknown Other reaction(s): swelling, Swelling Amlodipine Intolerance leg swelling at 10 mg Celebrex [Celecoxib] Intolerance feet and leg swelling Penicillin G GI Upset Ibuprofen GI Upset Vomiting cramping Tylenol [Acetaminop* GI Upset Medications insulin glargine 100 unit/mL (3 mL) Inject 27 Units subcutaneously daily at bedtime. tiZANidine (ZANAFLEX) 4 mg tablet Take 1 tablet by mouth three times a day as needed. FLUoxetine (PROZAC) 10 mg capsule Take 1 capsule by mouth once daily. gabapentin (NEURONTIN) 800 mg tablet Take 1 tablet by mouth four times daily for 90 days. albuterol HFA (PROVENTIL HFA, VENTOLIN HFA) 90 mcg/actuation inhaler Inhale 2 puffs as instructed every 4 hours as needed for wheezing/shortness of breath. insulin lispro (HUMALOG KWIKPEN) 100 unit/mL Inject 8 Units subcutaneously three times a day before meals. Taking as needed polyethylene glycol 3350 17 gram/dose powder Take 17 g by mouth once daily as needed for constipation. Cholecalciferol, Vitamin D3, 50 mcg (2,000 unit) cap Take 1 capsule by mouth once daily. Insulin Willow, Disposable, (BD ULTRA-FINE PADMINI PEN NEEDLE) 32 gauge x 5/32" 1 Each three times a day. hydrALAZINE (APRESOLINE) 50 mg tablet Take 1 tablet by mouth four times daily. Hold if blood pressure is less than 110/60 hydroCHLOROthiazide 25 mg tablet Take 1 tablet by mouth once daily. ondansetron orally disintegrating (ZOFRAN ODT) 8 mg disintegrating tablet Take 1 tablet by mouth every 8 hours as needed for nausea/vomiting. omeprazole (PRILOSEC) 40 mg capsule Take 1 capsule by mouth two times a day. fluticasone-salmeterol HFA (ADVAIR HFA) 230-21 mcg/actuation inhaler Inhale 2 Puffs as instructed two times a day. loratadine (CLARITIN) 10 mg tablet Take 1 tablet by mouth once daily. [START ON 03/08/2025] oxyCODONE IR (ROXICODONE) 10 mg tab Take 1 tablet by mouth three times a day as needed for pain for up to 7 days. Patient should start on March 08, 2025. blood sugar diagnostic (ONETOUCH VERIO TEST STRIPS) test strip 1 Strip four times daily. Use as instructed CPAP/BIPAP/OTHER Type .CPAPSettings into a note to see current settings/supplies/DME information. PAST MEDICAL HISTORY Diagnosis Date Abdominal bloating 10/13/2023 Arthritis COPD (chronic obstructive pulmonary disease) (HCC) Diabetes (HCC) Hypertension Median arcuate ligament syndrome Sleep apnea Social History Tobacco Use Smoking status: Every Day Current packs/day: 1.00 Types: Cigarettes Smokeless tobacco: Never Tobacco comments: 3/4's of a pack daily Vaping Use Vaping status: Never Used Substance Use Topics Alcohol use: Never Drug use: Never Latest Ref Rng 08/09/2024 08/19/2024 09/22/2024 11/22/2024 Protein, Total 6.3 - 8.0 g/dL 7.2 Albumin 3.9 - 4.9 g/dL 4.2 Calcium 8.5 - 10.2 mg/dL 10.0 Bilirubin, Total 0.2 - 1.3 mg/dL 0.2 Alkaline Phosphatase 34 - 123 U/L 98 AST 13 - 35 U/L 14 ALT 7 - 38 U/L 10 Glucose 74 - 99 mg/dL 62 (L) BUN 7 - 21 mg/dL 35 (H) Creatinine 0.58 - 0.96 mg/dL 1.46 (H) Sodium 136 - 144 mmol/L 140 Potassium 3.7 - 5.1 mmol/L 5.5 (H) Chloride 98 - 107 mmol/L 104 CO2 22 - 30 mmol/L 26 Anion Gap 8 - 15 mmol/L 10 eGFR >=60 mL/min/1.73m? 41 (L) Creatinine, Ur Random (UCRR) 20.0 - 300.0 mg/dL 46.3 Albumin, Urine Random mg/L 1,548.3 Albumin/Creat Ratio <30 mg/g 3,344 (H) Hemoglobin A1C 4.3 - 5.6 % 8.9 (H) 8.6 (H) Estimated Average Glucose mg/dL 209 200 Vitamin D 25 Hydroxy 31.0 - 80.0 ng/mL 18.8 (L) 27.4 (L) Magnesium 1.7 - 2.3 mg/dL 2.4 (H) 1. Uncontrolled type 2 diabetes mellitus with hyperglycemia (HCC) (E11.65) - Blood glucose levels have been elevated, with a recent reading over 300 mg/dL before breakfast. - has been administering 27 units of long-acting insulin in the morning instead of at bedtime as prescribed. - Administered 5 units of rapid-acting insulin this morning. - Educated on the importance of adhering to prescribed insulin administration times. - Ordered hemoglobin A1c and lipid panel to be completed today. - Advised to monitor blood glucose levels closely and report any persistent hyperglycemia. 2. Other chronic postprocedural pain (G89.28) - Pain management appointment scheduled for March 31. - Current pain regimen includes oxycodone; requests increase from three times per day to four times daily. - Advised to take oxycodone at least one hour before physical therapy sessions. Will continue at TID dosing for now. Defer to Rissa Hanks MD if wanting to increase medication frequency. - Refill for oxycodone sent to [facility] pharmacy. 3. Closed displaced comminuted fracture of shaft of left femur, sequela (S72.352S) - Scheduled for physical therapy at [facility] on March 22. - Recommended aquatic therapy as per orthopedic consultation. 4. Presence of right artificial hip joint (Z96.641) 5. S/P right hip fracture (Z87.81) - Noted presence of right hip prosthesis. - Advised to avoid sudden movements and excessive pressure on the hip joint. 6. DM gastroparesis (HCC) (E11.43) - No specific management changes discussed during this visit. 7. Screening for diabetic retinopathy (Z13.5) - follows up with [facility]; advised to schedule an appointment for follow up 8. Encounter for immunization (Z23) Declined at this time. 9.. Encounter for screening mammogram for breast cancer (Z12.31) - believes mammogram is scheduled; [facility]. 11. Self-care deficit (Z78.9) - reports difficulty with activities of daily living, including cooking, bathing, and housekeeping. - Expressed fear of falling and physical exhaustion. - Social work consult initiated for home health aid assistance. - to coordinate with shoe caser Marlen through her insurance for medical record release. 12. Screening for colon cancer (Z12.11) - Due for follow-up colonoscopy; discussed importance of scheduling. Endorse continue to work with orthopedics, pain management and physical therapy. 3 mo and 6 mo follow up Rissa Hanks MD or me Georgina Gonsalez APRN.PATIENT SERVICES COORDINATOR Addendum March 08, 2025 Results show uncontrolled / decreased control diabetes. Recommend increasing/glargine insulin from 27 to 29 units daily at bedtime. Take Humalog 8 units 3 times daily before meals as needed for elevated glucose/sliding scale insulin parameters. Consider addition of Jardiance for better diabetes control and protection for kidney function. Will send script if willing to take. Rx to [facility]. Can refer to pharmacist for diabetes management if willing to do so. Phone, video or in office okay. Try sticking with diabetic diet and staying as active as she is able to do. For now recommend increasing fluid intake and liberalize sodium intake (increase salt intake). Calcium is elevated, if taking a multivitamin or calcium supplement recommend stopping that Cholesterol is elevated. Would recommend the above changes first then if feeling well consider addition of medication to help control cholesterol. Discontinue hydrochlorothiazide for hyponatremia (low sodium) and start taking lisinopril 5 mg daily instead. Office visit with me and recheck labs in 3 months. Latest Ref Rng 03/07/2025 Protein, Total 6.3 - 8.0 g/dL 7.2 Albumin 3.9 - 4.9 g/dL 4.1 Calcium 8.5 - 10.2 mg/dL 10.9 (H) Bilirubin, Total 0.2 - 1.3 mg/dL 0.2 Alkaline Phosphatase 34 - 123 U/L 80 AST 13 - 35 U/L 12 (L) ALT 7 - 38 U/L 10 Glucose 74 - 99 mg/dL 265 (H) BUN 7 - 21 mg/dL 51 (H) Creatinine 0.58 - 0.96 mg/dL 1.41 (H) Sodium 136 - 144 mmol/L 129 (L) Potassium 3.7 - 5.1 mmol/L 4.9 Chloride 98 - 107 mmol/L 97 (L) CO2 22 - 30 mmol/L 19 (L) Anion Gap 8 - 15 mmol/L 13 eGFR >=60 mL/min/1.73m? 43 (L) Total Cholesterol, Nonfasting <200 mg/dL 274 (H) Triglycerides, Nonfasting <150 mg/dL 225 (H) HDL Cholesterol, Nonfasting >39 mg/dL 49 LDL Cholesterol Calculated, Nonfasting <100 mg/dL 182 (H) Non HDL Cholesterol, Nonfasting <130 mg/dL 225 (H) VLDL Cholesterol, Nonfasting <30 mg/dL 46 (H) Total Chol/HDL Ratio, Nonfasting <5.10 mg/dL 5.59 (H) LDL/HDL Ratio, Nonfasting <2.54 mg/dL 3.71 (H) Hemoglobin A1C 4.3 - 5.6 % 10.0 (H) Estimated Average Glucose mg/dL 240 Vitamin D 25 Hydroxy 31.0 - 80.0 ng/mL 39.1 Medical Decision Making: Problems: Moderate: 2+ stable chronic illnesses Data: Unique test result(s) reviewed: 3+ Unique test(s) ordered: 2 Risk: Moderate: Drug management Medical Decision Making Level: 4 - Moderate Georgina Gonsalez APRN.PATIENT SERVICES COORDINATOR 03/07/2025 8:00 AM Signed - Continue taking paroxetine at your current dose for mood as prescribed. - Keep using your gabapentin and oxycodone at their current doses; take one dose of oxycodone at least 1 hour before each therapy session so it has time to work. - Continue your insulin routine: take your long-acting insulin at bedtime as directed and your fast-acting insulin as prescribed. Consider choosing sugar-free snacks or desserts to help keep blood sugar down. - Get fasting blood work today on your way out: hemoglobin A1c and lipid panel. - Sign a release form here or send your records through [employer] to your shoe caser, Marlen, so she can arrange home health aide visits twice a week for meal prep, bathing, and housekeeping. - Expect a call from Rosa, our family welfare social work professor, to set up home assistance; if you don?t recognize the number, let the call go to [facility] and then call back. - Attend water therapy sessions beginning March 22 at [facility] as recommended by your orthopedic provider. - Keep your pain management appointment on March 31 and confirm transportation so you can attend. - Schedule your annual eye exam with [facility] to check your vision and update glasses. - Schedule your mammogram - Plan to have a follow-up colonoscopy this year as recommended for ongoing colon health monitoring. - When sitting for long periods, move your legs and arms occasionally to improve circulation and reduce stiffness. Georgina Gonsalez, WINIFRED.PATIENT SERVICES COORDINATOR 03/08/2025 11:32 AM Signed Addended by: GEORGINA GONSALEZ on: 03/08/2025 11:32 AM Modules accepted: Orders Allergies As of Date: 03/07/2025 Noted Allergy Reaction DULOXETINE 06/15/2021 7 - Swelling 14 - Other: See Comments Comments: Other reaction(s): swelling Other reaction(s): Unknown Other reaction(s): swelling NSAIDS (NON-STEROIDAL ANTI-INFLAM*08/15/2020 8 - GI Upset Comments: Other reaction(s): GI Upset Other reaction(s): cramping, GI Upset, Other (See Comments), Upset Stomach Severe stomach pain Other reaction(s): GI Upset PENICILLINS 08/15/2020 2 - Rash 14 - Other: See Comments Comments: Other reaction(s): GI Upset, hives, horrible taste in mouth Other reaction(s): GI Upset, GI Upset, horrible taste in mouth, leaves a bad taste in her mouth., NEEDS FOLLOW-UP Other reaction(s): GI Upset, hives, horrible taste in mouth PREGABALIN 08/15/2020 7 - Swelling 14 - Other: See Comments 16 - Unknown Comments: Other reaction(s): swelling, Swelling Other reaction(s): Swelling, Unknown Other reaction(s): swelling, Swelling AMLODIPINE 06/22/2024 5 - Intolerance Comments: leg swelling at 10 mg CELEBREX (CELECOXIB) 08/09/2024 5 - Intolerance Comments: feet and leg swelling PENICILLIN G 11/11/2021 8 - GI Upset IBUPROFEN 11/11/2021 8 - GI Upset Comments: Vomiting cramping TYLENOL (ACETAMINOPHEN) 10/27/2022 8 - GI Upset Date Reviewed: 03/07/2025 Reviewed by: Clare Lehman MA - Fully Assessed Reason for Visit: Musculoskeletal Problem [69] Cmt: Bilateral leg pain more predominate in Left leg x 1 year pain increasing Primary Visit Diagnosis:Screening for colon cancer [Z12.11] Other Visit Diagnoses:Uncontrolled type 2 diabetes mellitus with hyperglycemia (HCC) [E11.65] Other chronic postprocedural pain [G89.28] Closed displaced comminuted fracture of shaft of left femur, sequela [S72.352S] Presence of right artificial hip joint [Z96.641] S/P right hip fracture [Z87.81] DM gastroparesis (HCC) [E11.43, K31.84] Screening for diabetic retinopathy [Z13.5] Encounter for immunization [Z23] Screening for cervical cancer [Z12.4] Encounter for screening mammogram for breast cancer [Z12.31] Self-care deficit [Z78.9] Order(s):HEMOGLOBIN A1C [PFDSH4V] Order #: [id number] FUTURE oxyCODONE IR (ROXICODONE) 10 mg tabTake 1 tablet by mouth three times a day as needed for pain for up to 7 days. Patient should start on March 08, 2025.Disp: 21 tabletRfl: 0 PRIMARY CARE SOCIAL WORK CONSULT [[id number]] Order #: [id number]: 1 AZAM SCREENING W CELESTE [[id number]] Order #: [id number] FUTURE LIPID PANEL, NONFASTING [SQLIPNF] Order #: [id number] FUTURE insulin glargine 100 unit/mL (3 mL)Inject 29 Units subcutaneously daily at bedtime.Disp: 6 eachRfl: 1 empagliflozin (JARDIANCE) 10 mg tabletTake 1 tablet by mouth daily with breakfast.Disp: 90 tabletRfl: 3 HEMOGLOBIN A1C [GOTJZ4S] Order #: [id number] FUTURE LIPID PANEL, FASTING [SQLIPB] Order #: [id number] FUTURE COMPREHENSIVE METABOLIC PANEL [SQCMP] Order #: [id number] FUTURE CONSULT TO PHARMACY [[id number]] Order #: [id number]: 1 lisinopril (ZESTRIL) 5 mg tabletTake 1 tablet by mouth once daily.Disp: 90 tabletRfl: 3 Prescriptions as of 03/08/2025 - insulin glargine 100 unit/mL (3 mL) Inject 29 Units subcutaneously daily at bedtime. - empagliflozin (JARDIANCE) 10 mg tablet Take 1 tablet by mouth daily with breakfast. - lisinopril (ZESTRIL) 5 mg tablet Take 1 tablet by mouth once daily. - oxyCODONE IR (ROXICODONE) 10 mg tab Take 1 tablet by mouth three times a day as needed for pain for up to 7 days. Patient should start on March 08, 2025. - tiZANidine (ZANAFLEX) 4 mg tablet Take 1 tablet by mouth three times a day as needed. - FLUoxetine (PROZAC) 10 mg capsule Take 1 capsule by mouth once daily. - gabapentin (NEURONTIN) 800 mg tablet Take 1 tablet by mouth four times daily for 90 days. - albuterol HFA (PROVENTIL HFA, VENTOLIN HFA) 90 mcg/actuation inhaler Inhale 2 puffs as instructed every 4 hours as needed for wheezing/shortness of breath. - insulin lispro (HUMALOG KWIKPEN) 100 unit/mL Inject 8 Units subcutaneously three times a day before meals. Taking as needed - polyethylene glycol 3350 17 gram/dose powder Take 17 g by mouth once daily as needed for constipation. - Cholecalciferol, Vitamin D3, 50 mcg (2,000 unit) cap Take 1 capsule by mouth once daily. - Insulin Willow, Disposable, (BD ULTRA-FINE PADMINI PEN NEEDLE) 32 gauge x 5/32" 1 Each three times a day. - hydrALAZINE (APRESOLINE) 50 mg tablet Take 1 tablet by mouth four times daily. Hold if blood pressure is less than 110/60 - ondansetron orally disintegrating (ZOFRAN ODT) 8 mg disintegrating tablet Take 1 tablet by mouth every 8 hours as needed for nausea/vomiting. - omeprazole (PRILOSEC) 40 mg capsule Take 1 capsule by mouth two times a day. - blood sugar diagnostic (?TOUCH VERIO TEST STRIPS) test strip 1 Strip four times daily. Use as instructed - fluticasone-salmeterol HFA (ADVAIR HFA) 230-21 mcg/actuation inhaler Inhale 2 Puffs as instructed two times a day. - loratadine (CLARITIN) 10 mg tablet Take 1 tablet by mouth once daily. - CPAP/BIPAP/OTHER Type .CPAPSettings into a note to see current settings/supplies/DME information. Problem List As Of Date 03/07/2025 Noted Resolved Uncontrolled type 2 diabetes mellitus with hype*08/28/2022 Chronic midline low back pain with sciatica [M5*08/28/2022 Chronic obstructive lung disease (HCC) [J44.9] 10/18/2022 11/05/2022 Chronic obstructive pulmonary disease, unspecif*11/30/2021 Hyperlipidemia, unspecified [E78.5] 06/15/2021 Tobacco use [Z72.0] 11/05/[address] scan, kidney [R93.429] 11/05/2022 Dyspepsia [R10.13] 02/21/2023 Epigastric pain [R10.13] 02/21/2023 Right upper quadrant abdominal pain [R10.11] 02/21/2023 Chronic gastritis without bleeding [K29.50] 03/12/2023 Gastric wall thickening [K31.89] 03/12/2023 Primary hypertension [I10] 06/11/2023 Neuropathy [G62.9] 06/11/2023 Back pain with history of spinal surgery [M54.9*06/11/2023 FRANCISCO (obstructive sleep apnea) [G47.33] 06/11/2023 DM gastroparesis (HCC) [E11.43, K31.84] 07/04/2023 Abdominal bloating [R14.0] 10/13/2023 Obesity [E66.9] 10/13/2023 Diagnosed: 10/13/2023 Postlaminectomy syndrome of lumbar region [M96.*10/31/2022 Diagnosed: 10/13/2023 Sciatica [M54.30] 11/18/2022 Diagnosed: 10/13/2023 Fall at home, initial encounter [W19.XXXA, Y92.*11/26/2023 12/04/2023 Nicotine use disorder, F17.2 [F17.200] 11/28/2023 Osteoporosis [M81.0] 08/20/2024 Closed displaced comminuted fracture of shaft o*11/08/2024 Presence of right artificial hip joint [Z96.641]11/08/2024 Other instructions from your clinician: - Continue taking paroxetine at your current dose for mood as prescribed. - Keep using your gabapentin and oxycodone at their current doses; take one dose of oxycodone at least 1 hour before each therapy session so it has time to work. - Continue your insulin routine: take your long-acting insulin at bedtime as directed and your fast-acting insulin as prescribed. Consider choosing sugar-free snacks or desserts to help keep blood sugar down. - Get fasting blood work today on your way out: hemoglobin A1c and lipid panel. - Sign a release form here or send your records through [employer] to your shoe caser, Marlen, so she can arrange home health aide visits twice a week for meal prep, bathing, and housekeeping. - Expect a call from Rosa, our family welfare social work professor, to set up home assistance; if you don?t recognize the number, let the call go to [facility] and then call back. - Attend water therapy sessions beginning March 22 at [facility] as recommended by your orthopedic provider. - Keep your pain management appointment on March 31 and confirm transportation so you can attend. - Schedule your annual eye exam with [facility] to check your vision and update glasses. - Schedule your mammogram - Plan to have a follow-up colonoscopy this year as recommended for ongoing colon health monitoring. - When sitting for long periods, move your legs and arms occasionally to improve circulation and reduce stiffness. Prescriptions ordered this encounter Disp Refills Start End OXYCODONE 10 MG TABLET 21 t* 0 03/08/2025 03/15/2025 Route: PO Sig: Take 1 tablet by mouth three times a day as needed for pain for up to 7 days. Patient should start on March 08, 2025. INSULIN GLARGINE (U-100) 100 UNIT/ML* 6 ea* 1 03/08/2025 Class: Med Update Cmt: Generic or brand: dispense product preferred by patient/insurance unless FLOR flag is selected. Route: SQ Sig: Inject 29 Units subcutaneously daily at bedtime. EMPAGLIFLOZIN 10 MG TABLET 90 t* 3 03/08/2025 03/08/2026 Route: PO Sig: Take 1 tablet by mouth daily with breakfast. LISINOPRIL 5 MG TABLET 90 t* 3 03/08/2025 03/08/2026 Route: PO Sig: Take 1 tablet by mouth once daily. Medications Discontinued During This Encounter Prescriptions - oxyCODONE IR (ROXICODONE) 10 mg tab (Discontinued) Take 1 tablet by mouth three times a day as needed for pain for up to 7 days. Patient should start on March 01, 2025. - insulin glargine 100 unit/mL (3 mL) (Discontinued) Inject 27 Units subcutaneously daily at bedtime. - hydroCHLOROthiazide 25 mg tablet (Discontinued) Take 1 tablet by mouth once daily. Level of Service: OFFICE/OUTPATIENT ESTABLISHED MOD MDM 30 MIN [31161] Additional E/M codes: VISIT CPLX INHERENT EANDM ASSOC WITH MED * Follow-up and Disposition History for Encounter Date Provider Department Center 03/07/2025 [id number] [facility] Encounter Status:Closed by GEORGINA GONSALEZ on 03/07/25 PROGRESS Observed: 03/07/2025 8:00 AM Status: COMPLETED Source: [facility] HNO ID: [id number] Author: GEORGINA GONSALEZ APRN.PATIENT SERVICES COORDINATOR Service: ? Author Type: Nurse Specialist Type: Progress Notes Filed: 03/08/2025 11:31 Note Text: SUBJECTIVE: Dilated Retinal Exam Never done Diabetic Foot Exam Never done Cervical Cancer Screening Never done Mammogram Screening due on 08/20/2023 Colorectal Cancer Screening due on 10/16/2024 LDL Cholesterol due on 11/30/2024 HbA1C due on 02/22/2025 HPI Nikkie Buck is a 59 year old female.PMH significnat or ACTIVE PROBLEM LIST Uncontrolled Type 2 Diabetes Mellitus With Hyperglycemia (Hcc) Chronic Midline Low Back Pain With Sciatica Chronic Obstructive Pulmonary Disease, Unspecified (Hcc) Hyperlipidemia, Unspecified Tobacco Use Abnormal CT Scan, Kidney Dyspepsia Epigastric Pain Right Upper Quadrant Abdominal Pain Chronic Gastritis Without Bleeding Gastric Wall Thickening Primary Hypertension Neuropathy Back Pain With History of Spinal Surgery Francisco (Obstructive Sleep Apnea) Dm Gastroparesis (Hcc) Abdominal Bloating Obesity Postlaminectomy Syndrome of Lumbar Region Sciatica Nicotine use disorder, F17.2 Osteoporosis Closed Displaced Comminuted Fracture of Shaft of Left Femur (Hcc) Presence of Right Artificial Hip Joint Presents today for a recheck. At her last visit she was started on paroxetine for depression. She returns today for recheck of depression and medication, chronic pain, concern for assistance needed at home. ADLs: IADLs: Depression: - Currently taking paroxetine; believes it may be helping. - Reports feeling overwhelmed and struggling with daily activities. - Denies interest in counseling. Chronic Pain: - Reports significant physical pain, primarily in the legs and hips. - Has a total hip replacement on the right side; experiences pain if not careful with movements. - Left leg drags and is difficult to move voluntarily. - Reports neuropathy and cold sensation in legs from knees down. - Taking oxycodone, which helps manage pain; requests to increase to four times a day. - Upcoming pain management appointment on March 31. - Missed previous pain management appointment due to transportation issues. - Scheduled for water therapy at [facility] on March 22. Reports initial back surgery started her current problems with pain and has persisted. Diabetes: - Reports high blood sugar readings, with a recent reading over 300 mg/dL before breakfast. - Taking 27 units of long-acting insulin and 5 units of fast-acting insulin. - Admits to eating Jell-O before bed, which may have contributed to high blood sugar. - Scheduled for routine lab work, including hemoglobin A1c and lipid panel. Functional Limitations: - Struggles with daily activities such as showering, cooking, and cleaning. - Lives alone and has no assistance at home. - Requests home health aid to help with meal preparation, hygiene, and housekeeping. - Feels physically worn out and fears falling. - Has a shoe caser through her insurance, Marlen, who is helping to arrange home health aid, states she needs medical records. Lifestyle: - Enjoys gardening and has a small garden with tomato plants. - Uses [facility] for pharmacy refills. - Drinks coffee with whole milk; avoids powdered creamer due to sugar content. - Scheduled for a mammogram and needs to reschedule an eye appointment at [facility]. - Had a colonoscopy last year and is due for a one year follow up. Missed pain management appt due to late transportation through her insurance and had to reschedule. HTN: Without report of headache, chest pain, palpitations, dyspnea, peripheral edema, orthopnea, fatigue, and PND. Last 14 Encounter BP Readings: Date: BP: 02/15/2025 134/80 01/25/2025 128/74 12/31/2024 126/72 12/03/2024 167/76 12/03/2024 151/68 09/27/2024 115/74 09/22/2024 124/78 08/19/2024 179/85 08/09/2024 138/80 07/29/2024 168/93 06/21/2024 157/99 05/20/2024 168/94 05/05/2024 128/70 04/15/2024 128/75 DIABETES MELLITUS: Without report of excessive thirst or increased frequency of urination, chest pain or dyspnea , numbness, tingling or pain in extremities, new or unusual visual symptoms, low sugar/hypoglycemic reactions, weight loss/gain, lightheadedness/dizziness, and bowel changes/loose stools. Patient's last HgA1C was Hemoglobin A1C (%) Date Value 11/22/2024 8.6 08/09/2024 8.9 ) ROS Constitutional: (+) fatigue Gastrointestinal: (+) nausea Musculoskeletal: (+) leg pain, (+) bilateral hip pain, (+) difficulty bending, (+) left leg weakness Skin: (+) cold sensation in lower legs Neurological: (+) memory loss Objective BP 132/70 Pulse 75 Resp 14 Wt 63.5 kg (139 lb 15.9 oz) SpO2 97% BMI 27.34 kg/m? Physical Exam Vitals and nursing note reviewed. Constitutional: Appearance: Normal appearance. HENT: Head: Normocephalic and atraumatic. Eyes: Conjunctiva/sclera: Conjunctivae normal. Neck: Thyroid: No thyromegaly. Vascular: No JVD. Cardiovascular: Rate and Rhythm: Normal rate and regular rhythm. Heart sounds: Normal heart sounds. Pulmonary: Effort: Pulmonary effort is normal. Breath sounds: Normal breath sounds. Abdominal: General: Bowel sounds are normal. Palpations: Abdomen is soft. Musculoskeletal: Lumbar back: Tenderness present. Left knee: Tenderness present. Right lower leg: Tenderness present. No edema. Left lower leg: No edema. Comments: brace left knee, walking with rollator, slow gait Skin: General: Skin is warm and dry. Neurological: General: No focal deficit present. Mental Status: She is alert and oriented to person, place, and time. ALLERGIES Allergen Reactions Duloxetine Swelling, Other: See Comments Other reaction(s): swelling Other reaction(s): Unknown Other reaction(s): swelling Nsaids (Non-Steroid* GI Upset Other reaction(s): GI Upset Other reaction(s): cramping, GI Upset, Other (See Comments), Upset Stomach Severe stomach pain Other reaction(s): GI Upset Penicillins Rash, Other: See Comments Other reaction(s): GI Upset, hives, horrible taste in mouth Other reaction(s): GI Upset, GI Upset, horrible taste in mouth, leaves a bad taste in her mouth., NEEDS FOLLOW-UP Other reaction(s): GI Upset, hives, horrible taste in mouth Pregabalin Swelling, Other: See Comments, Unknown Other reaction(s): swelling, Swelling Other reaction(s): Swelling, Unknown Other reaction(s): swelling, Swelling Amlodipine Intolerance leg swelling at 10 mg Celebrex [Celecoxib] Intolerance feet and leg swelling Penicillin G GI Upset Ibuprofen GI Upset Vomiting cramping Tylenol [Acetaminop* GI Upset Medications insulin glargine 100 unit/mL (3 mL) Inject 27 Units subcutaneously daily at bedtime. tiZANidine (ZANAFLEX) 4 mg tablet Take 1 tablet by mouth three times a day as needed. FLUoxetine (PROZAC) 10 mg capsule Take 1 capsule by mouth once daily. gabapentin (NEURONTIN) 800 mg tablet Take 1 tablet by mouth four times daily for 90 days. albuterol HFA (PROVENTIL HFA, VENTOLIN HFA) 90 mcg/actuation inhaler Inhale 2 puffs as instructed every 4 hours as needed for wheezing/shortness of breath. insulin lispro (HUMALOG KWIKPEN) 100 unit/mL Inject 8 Units subcutaneously three times a day before meals. Taking as needed polyethylene glycol 3350 17 gram/dose powder Take 17 g by mouth once daily as needed for constipation. Cholecalciferol, Vitamin D3, 50 mcg (2,000 unit) cap Take 1 capsule by mouth once daily. Insulin Willow, Disposable, (BD ULTRA-FINE PADMINI PEN NEEDLE) 32 gauge x 5/32" 1 Each three times a day. hydrALAZINE (APRESOLINE) 50 mg tablet Take 1 tablet by mouth four times daily. Hold if blood pressure is less than 110/60 hydroCHLOROthiazide 25 mg tablet Take 1 tablet by mouth once daily. ondansetron orally disintegrating (ZOFRAN ODT) 8 mg disintegrating tablet Take 1 tablet by mouth every 8 hours as needed for nausea/vomiting. omeprazole (PRILOSEC) 40 mg capsule Take 1 capsule by mouth two times a day. fluticasone-salmeterol HFA (ADVAIR HFA) 230-21 mcg/actuation inhaler Inhale 2 Puffs as instructed two times a day. loratadine (CLARITIN) 10 mg tablet Take 1 tablet by mouth once daily. [START ON 03/08/2025] oxyCODONE IR (ROXICODONE) 10 mg tab Take 1 tablet by mouth three times a day as needed for pain for up to 7 days. Patient should start on March 08, 2025. blood sugar diagnostic (ONETOUCH VERIO TEST STRIPS) test strip 1 Strip four times daily. Use as instructed CPAP/BIPAP/OTHER Type .CPAPSettings into a note to see current settings/supplies/DME information. PAST MEDICAL HISTORY Diagnosis Date Abdominal bloating 10/13/2023 Arthritis COPD (chronic obstructive pulmonary disease) (HCC) Diabetes (HCC) Hypertension Median arcuate ligament syndrome Sleep apnea Social History Tobacco Use Smoking status: Every Day Current packs/day: 1.00 Types: Cigarettes Smokeless tobacco: Never Tobacco comments: 3/4's of a pack daily Vaping Use Vaping status: Never Used Substance Use Topics Alcohol use: Never Drug use: Never Latest Ref Rng 08/09/2024 08/19/2024 09/22/2024 11/22/2024 Protein, Total 6.3 - 8.0 g/dL 7.2 Albumin 3.9 - 4.9 g/dL 4.2 Calcium 8.5 - 10.2 mg/dL 10.0 Bilirubin, Total 0.2 - 1.3 mg/dL 0.2 Alkaline Phosphatase 34 - 123 U/L 98 AST 13 - 35 U/L 14 ALT 7 - 38 U/L 10 Glucose 74 - 99 mg/dL 62 (L) BUN 7 - 21 mg/dL 35 (H) Creatinine 0.58 - 0.96 mg/dL 1.46 (H) Sodium 136 - 144 mmol/L 140 Potassium 3.7 - 5.1 mmol/L 5.5 (H) Chloride 98 - 107 mmol/L 104 CO2 22 - 30 mmol/L 26 Anion Gap 8 - 15 mmol/L 10 eGFR >=60 mL/min/1.73m? 41 (L) Creatinine, Ur Random (UCRR) 20.0 - 300.0 mg/dL 46.3 Albumin, Urine Random mg/L 1,548.3 Albumin/Creat Ratio <30 mg/g 3,344 (H) Hemoglobin A1C 4.3 - 5.6 % 8.9 (H) 8.6 (H) Estimated Average Glucose mg/dL 209 200 Vitamin D 25 Hydroxy 31.0 - 80.0 ng/mL 18.8 (L) 27.4 (L) Magnesium 1.7 - 2.3 mg/dL 2.4 (H) 1. Uncontrolled type 2 diabetes mellitus with hyperglycemia (HCC) (E11.65) - Blood glucose levels have been elevated, with a recent reading over 300 mg/dL before breakfast. - has been administering 27 units of long-acting insulin in the morning instead of at bedtime as prescribed. - Administered 5 units of rapid-acting insulin this morning. - Educated on the importance of adhering to prescribed insulin administration times. - Ordered hemoglobin A1c and lipid panel to be completed today. - Advised to monitor blood glucose levels closely and report any persistent hyperglycemia. 2. Other chronic postprocedural pain (G89.28) - Pain management appointment scheduled for March 31. - Current pain regimen includes oxycodone; requests increase from three times per day to four times daily. - Advised to take oxycodone at least one hour before physical therapy sessions. Will continue at TID dosing for now. Defer to Rissa Hanks MD if wanting to increase medication frequency. - Refill for oxycodone sent to [facility] pharmacy. 3. Closed displaced comminuted fracture of shaft of left femur, sequela (S72.352S) - Scheduled for physical therapy at [facility] on March 22. - Recommended aquatic therapy as per orthopedic consultation. 4. Presence of right artificial hip joint (Z96.641) 5. S/P right hip fracture (Z87.81) - Noted presence of right hip prosthesis. - Advised to avoid sudden movements and excessive pressure on the hip joint. 6. DM gastroparesis (HCC) (E11.43) - No specific management changes discussed during this visit. 7. Screening for diabetic retinopathy (Z13.5) - follows up with [facility]; advised to schedule an appointment for follow up 8. Encounter for immunization (Z23) Declined at this time. 9.. Encounter for screening mammogram for breast cancer (Z12.31) - believes mammogram is scheduled; [facility]. 11. Self-care deficit (Z78.9) - reports difficulty with activities of daily living, including cooking, bathing, and housekeeping. - Expressed fear of falling and physical exhaustion. - Social work consult initiated for home health aid assistance. - to coordinate with shoe caser Marlen through her insurance for medical record release. 12. Screening for colon cancer (Z12.11) - Due for follow-up colonoscopy; discussed importance of scheduling. Endorse continue to work with orthopedics, pain management and physical therapy. 3 mo and 6 mo follow up Rissa Hanks MD or me Georgina Gonsalez APRN.PATIENT SERVICES COORDINATOR Addendum March 08, 2025 Results show uncontrolled / decreased control diabetes. Recommend increasing/glargine insulin from 27 to 29 units daily at bedtime. Take Humalog 8 units 3 times daily before meals as needed for elevated glucose/sliding scale insulin parameters. Consider addition of Jardiance for better diabetes control and protection for kidney function. Will send script if willing to take. Rx to [facility]. Can refer to pharmacist for diabetes management if willing to do so. Phone, video or in office okay. Try sticking with diabetic diet and staying as active as she is able to do. For now recommend increasing fluid intake and liberalize sodium intake (increase salt intake). Calcium is elevated, if taking a multivitamin or calcium supplement recommend stopping that Cholesterol is elevated. Would recommend the above changes first then if feeling well consider addition of medication to help control cholesterol. Discontinue hydrochlorothiazide for hyponatremia (low sodium) and start taking lisinopril 5 mg daily instead. Office visit with me and recheck labs in 3 months. Latest Ref Rng 03/07/2025 Protein, Total 6.3 - 8.0 g/dL 7.2 Albumin 3.9 - 4.9 g/dL 4.1 Calcium 8.5 - 10.2 mg/dL 10.9 (H) Bilirubin, Total 0.2 - 1.3 mg/dL 0.2 Alkaline Phosphatase 34 - 123 U/L 80 AST 13 - 35 U/L 12 (L) ALT 7 - 38 U/L 10 Glucose 74 - 99 mg/dL 265 (H) BUN 7 - 21 mg/dL 51 (H) Creatinine 0.58 - 0.96 mg/dL 1.41 (H) Sodium 136 - 144 mmol/L 129 (L) Potassium 3.7 - 5.1 mmol/L 4.9 Chloride 98 - 107 mmol/L 97 (L) CO2 22 - 30 mmol/L 19 (L) Anion Gap 8 - 15 mmol/L 13 eGFR >=60 mL/min/1.73m? 43 (L) Total Cholesterol, Nonfasting <200 mg/dL 274 (H) Triglycerides, Nonfasting <150 mg/dL 225 (H) HDL Cholesterol, Nonfasting >39 mg/dL 49 LDL Cholesterol Calculated, Nonfasting <100 mg/dL 182 (H) Non HDL Cholesterol, Nonfasting <130 mg/dL 225 (H) VLDL Cholesterol, Nonfasting <30 mg/dL 46 (H) Total Chol/HDL Ratio, Nonfasting <5.10 mg/dL 5.59 (H) LDL/HDL Ratio, Nonfasting <2.54 mg/dL 3.71 (H) Hemoglobin A1C 4.3 - 5.6 % 10.0 (H) Estimated Average Glucose mg/dL 240 Vitamin D 25 Hydroxy 31.0 - 80.0 ng/mL 39.1 Medical Decision Making: Problems: Moderate: 2+ stable chronic illnesses Data: Unique test result(s) reviewed: 3+ Unique test(s) ordered: 2 Risk: Moderate: Drug management Medical Decision Making Level: 4 - Moderate PROGRESS Observed: 02/15/2025 9:00 AM Status: COMPLETED Source: [facility] ID: [id number] Author: CRYSTAL ROBLES APRN.REFRIGERATING ENGINEER Service: ? Author Type: Nurse Practitioner Type: Progress Notes Filed: 02/15/2025 09:57 Note Text: SUBJECTIVE Nikkie Buck is a 59 year old female here today for a check up on her medical problems. Chief Complaint Patient presents with: Recheck: and needs medication refills HPI Nikkie Buck is a 59-year-old female with a history of chronic back pain, presenting with worsening pain and depressive symptoms. Nikkie reports worsening chronic back pain and depressive symptoms. She has been using a walker for over 2 years following two major back surgeries, and attributes her pain to the hardware implanted during these procedures. She describes the pain as "tremendous" and notes that it prevents her from bending over to put on her shoes. She also experiences episodes of her legs and feet becoming "ice cold." She has an upcoming orthopedic appointment in March and is scheduled for pain management around the same time. She has not yet resumed physical therapy due to fear of exacerbating her pain. Nikkie has a history of intolerance to duloxetine and has previously tried Prozac and Effexor, but has not been on any mood-stabilizing medications for a while. She denies mood swings but reports difficulty "getting out of her head" once she starts ruminating. She also has a history of taking Valium, which she found helpful but is no longer prescribed. Nikkie reports difficulty sleeping and is currently taking a muscle relaxer, which she finds helpful when taken at night. She declines trying amitriptyline at this time. She also requests an increase in her pain medication dosage from three times a day to four times a day. Nikkie reports difficulty maintaining her blood glucose levels due to her inability to cook and clean as she used to. She attributes her weight loss to 143 lbs to her decreased activity level. She also reports feeling "terrified" to leave her house and is afraid of falling. She finds comfort in her dog, which she says keeps her from hitting "rock bottom" with her depression. Her medications were reviewed today and her list is now up to date. Medications Current Outpatient Medications Medication Sig oxyCODONE IR (ROXICODONE) 10 mg tab Take 1 tablet by mouth three times a day as needed for pain for up to 7 days. Patient should start on February 15, 2025. gabapentin (NEURONTIN) 800 mg tablet Take 1 tablet by mouth four times daily for 90 days. albuterol HFA (PROVENTIL HFA, VENTOLIN HFA) 90 mcg/actuation inhaler Inhale 2 puffs as instructed every 4 hours as needed for wheezing/shortness of breath. insulin lispro (HUMALOG KWIKPEN) 100 unit/mL Inject 8 Units subcutaneously three times a day before meals. Taking as needed insulin glargine 100 unit/mL (3 mL) Inject 27 Units subcutaneously daily at bedtime. polyethylene glycol 3350 17 gram/dose powder Take 17 g by mouth once daily as needed for constipation. Cholecalciferol, Vitamin D3, 50 mcg (2,000 unit) cap Take 1 capsule by mouth once daily. hydrALAZINE (APRESOLINE) 50 mg tablet Take 1 tablet by mouth four times daily. Hold if blood pressure is less than 110/60 hydroCHLOROthiazide 25 mg tablet Take 1 tablet by mouth once daily. ondansetron orally disintegrating (ZOFRAN ODT) 8 mg disintegrating tablet Take 1 tablet by mouth every 8 hours as needed for nausea/vomiting. omeprazole (PRILOSEC) 40 mg capsule Take 1 capsule by mouth two times a day. fluticasone-salmeterol HFA (ADVAIR HFA) 230-21 mcg/actuation inhaler Inhale 2 Puffs as instructed two times a day. loratadine (CLARITIN) 10 mg tablet Take 1 tablet by mouth once daily. tiZANidine (ZANAFLEX) 4 mg tablet Take 1 tablet by mouth three times a day as needed. FLUoxetine (PROZAC) 10 mg capsule Take 1 capsule by mouth once daily. Insulin Willow, Disposable, (BD ULTRA-FINE PADMINI PEN NEEDLE) 32 gauge x 5/32" 1 Each three times a day. blood sugar diagnostic ([employer] VERIO TEST STRIPS) test strip 1 Strip four times daily. Use as instructed CPAP/BIPAP/OTHER Type .CPAPSettings into a note to see current settings/supplies/DME information. No current facility-administered medications for this visit. ALLERGIES Allergen Reactions Duloxetine Swelling, Other: See Comments Other reaction(s): swelling Other reaction(s): Unknown Other reaction(s): swelling Nsaids (Non-Steroid* GI Upset Other reaction(s): GI Upset Other reaction(s): cramping, GI Upset, Other (See Comments), Upset Stomach Severe stomach pain Other reaction(s): GI Upset Penicillins Rash, Other: See Comments Other reaction(s): GI Upset, hives, horrible taste in mouth Other reaction(s): GI Upset, GI Upset, horrible taste in mouth, leaves a bad taste in her mouth., NEEDS FOLLOW-UP Other reaction(s): GI Upset, hives, horrible taste in mouth Pregabalin Swelling, Other: See Comments, Unknown Other reaction(s): swelling, Swelling Other reaction(s): Swelling, Unknown Other reaction(s): swelling, Swelling Amlodipine Intolerance leg swelling at 10 mg Celebrex [Celecoxib] Intolerance feet and leg swelling Penicillin G GI Upset Ibuprofen GI Upset Vomiting cramping Tylenol [Acetaminop* GI Upset ACTIVE PROBLEM LIST Closed Displaced Comminuted Fracture of Shaft of Left Femur (Hcc) - 11/08/2024 Presence of Right Artificial Hip Joint - 11/08/2024 Osteoporosis - 08/20/2024 Nicotine use disorder, F17.2 - 11/28/2023 Abdominal Bloating - 10/13/2023 Obesity - 10/13/2023 Dm Gastroparesis ([facility]) - 07/04/2023 Primary Hypertension - 06/11/2023 Neuropathy - 06/11/2023 Back Pain With History of Spinal Surgery - 06/11/2023 Francisco (Obstructive Sleep Apnea) - 06/11/2023 Chronic Gastritis Without Bleeding - 03/12/2023 Gastric Wall Thickening - 03/12/2023 Dyspepsia - 02/21/2023 Epigastric Pain - 02/21/2023 Right Upper Quadrant Abdominal Pain - 02/21/2023 Sciatica - 11/18/2022 Tobacco Use - 11/05/[address] Scan, Kidney - 11/05/2022 Postlaminectomy Syndrome of Lumbar Region - 10/31/2022 Uncontrolled Type 2 Diabetes Mellitus With Hyperglycemia ([facility]) - 08/28/2022 Chronic Midline Low Back Pain With Sciatica - 08/28/2022 Chronic Obstructive Pulmonary Disease, Unspecified ([facility]) - 11/30/2021 Hyperlipidemia, Unspecified - 06/15/2021 Social History Tobacco Use Smoking status: Every Day Current packs/day: 1.00 Types: Cigarettes Smokeless tobacco: Never Tobacco comments: 3/4's of a pack daily Vaping Use Vaping status: Never Used Substance Use Topics Alcohol use: Never Drug use: Never Review of Systems Respiratory: Negative. Cardiovascular: Negative. Musculoskeletal: Positive for arthralgias and myalgias. Psychiatric/Behavioral: Positive for dysphoric mood. Negative for self-injury and suicidal ideas. The patient is nervous/anxious. OBJECTIVE BP 134/80 Pulse 86 Wt 143 lb 8.3 oz (65.1kg) SpO2 97% Physical Exam Vitals and nursing note reviewed. Constitutional: General: She is awake. She is not in acute distress. Appearance: Normal appearance. She is well-developed and well-groomed. She is not ill-appearing, toxic-appearing or diaphoretic. HENT: Head: Normocephalic. Right Ear: External ear normal. Left Ear: External ear normal. Nose: Nose normal. Eyes: General: Vision grossly intact. Conjunctiva/sclera: Conjunctivae normal. Pupils: Pupils are equal, round, and reactive to light. Neck: Vascular: No JVD. Trachea: Trachea normal. Cardiovascular: Rate and Rhythm: Normal rate and regular rhythm. Pulses: Normal pulses. Heart sounds: Normal heart sounds. No murmur heard. Pulmonary: Effort: Pulmonary effort is normal. No accessory muscle usage, prolonged expiration or respiratory distress. Breath sounds: Normal breath sounds. Musculoskeletal: Cervical back: Neck supple. Skin: General: Skin is warm and dry. Capillary Refill: Capillary refill takes less than 2 seconds. Neurological: General: No focal deficit present. Mental Status: She is alert and oriented to person, place, and time. Mental status is at baseline. Psychiatric: Attention and Perception: Attention and perception normal. Mood and Affect: Mood and affect normal. Speech: Speech normal. Behavior: Behavior normal. Behavior is cooperative. Thought Content: Thought content normal. Cognition and Memory: Cognition and memory normal. Judgment: Judgment normal. ASSESSMENT/PLAN: 1. Other chronic postprocedural pain (G89.28) Closed displaced comminuted fracture of shaft of left femur, sequela (S72.352S) Presence of right artificial hip joint (Z96.641) Persistent severe pain post back surgery, suspecting hardware involvement. Scheduled follow-up with orthopedics in March. Current pain management includes gabapentin and muscle relaxants. - Continue current pain management regimen. - Scheduled follow-up with orthopedics in March. - Can message Dr. Hanks regarding increasing pain medication frequency to four times daily - Referred to pain management, appointment scheduled for late March. 2. Dysthymic (F34.1) Major depressive disorder, recurrent, moderate (HCC) (F33.1) Experiencing significant depressive symptoms, including feelings of hopelessness and difficulty coping with chronic pain and mobility issues. Previous trials of Cymbalta and Effexor were not well-tolerated or effective. - Initiated Prozac therapy. - Educated patient on expected benefits of Prozac in stabilizing mood and reducing depressive symptoms. - Advised follow-up with David on March 14 to assess response to Prozac and consider dosage adjustment if necessary. 3. Difficulty walking (R26.2) Severe mobility limitations, reliant on a walker for over two years. Fearful of physical therapy due to pain. - Scheduled physical therapy at [facility]. - Encouraged patient to communicate pain levels and limitations to physical therapist to tailor therapy appropriately. 4. Type 2 diabetes mellitus without complication, with long-term current use of insulin (HCC) (E11.9) Blood glucose levels are stable. Patient reports difficulty with cooking and maintaining physical activity due to mobility issues. - Continue current insulin regimen. - Monitor blood glucose levels regularly. Portions of this note have been entered by ancillary staff. I have reviewed and when necessary edited, so that they are an adequate record of my encounter with this patient Please note that parts of this document were created using voice recognition software and therefore may contain grammatical errors. Patient verbalizes understanding of instructions from today's visit and in agreement with treatment plan. Questions answered. Agrees to call the office if questions, concerns of issues with acute symptoms not improving or if they worsen. See diagnoses and orders for additional plan(s). Allergies and medications were reviewed, list was updated, and refills given if needed. Past medical, surgical, social, and family history reviewed and updated as appropriate. Encouraged proper diet AND exercise as well as compliance with taking medications. Age-appropriate health preventative measures were discussed. Return if symptoms worsen or fail to improve. Crystal Robles APRN-REFRIGERATING ENGINEER CNOV Observed: 02/15/2025 9:00 AM Status: COMPLETED Source: [facility] Office Visit ([facility]) NIKKIE BUCK ([id number]) 1965 F Date Time Provider Department 02/15/25 9:00 AM CRYSTAL ROBLES [facility] During your visit today, we recorded the following information about you: Pulse Blood pressure Weight 86/minute 134/80 65.1 kg Crystal Robles APRN.REFRIGERATING ENGINEER 02/15/2025 9:57 AM Signed SUBJECTIVE Nikkie Buck is a 59 year old female here today for a check up on her medical problems. Chief Complaint Patient presents with: Recheck: and needs medication refills HPI Nikkie Buck is a 59-year-old female with a history of chronic back pain, presenting with worsening pain and depressive symptoms. Nikkie reports worsening chronic back pain and depressive symptoms. She has been using a walker for over 2 years following two major back surgeries, and attributes her pain to the hardware implanted during these procedures. She describes the pain as "tremendous" and notes that it prevents her from bending over to put on her shoes. She also experiences episodes of her legs and feet becoming "ice cold." She has an upcoming orthopedic appointment in March and is scheduled for pain management around the same time. She has not yet resumed physical therapy due to fear of exacerbating her pain. Nikkie has a history of intolerance to duloxetine and has previously tried Prozac and Effexor, but has not been on any mood-stabilizing medications for a while. She denies mood swings but reports difficulty "getting out of her head" once she starts ruminating. She also has a history of taking Valium, which she found helpful but is no longer prescribed. Nikkie reports difficulty sleeping and is currently taking a muscle relaxer, which she finds helpful when taken at night. She declines trying amitriptyline at this time. She also requests an increase in her pain medication dosage from three times a day to four times a day. Nikkie reports difficulty maintaining her blood glucose levels due to her inability to cook and clean as she used to. She attributes her weight loss to 143 lbs to her decreased activity level. She also reports feeling "terrified" to leave her house and is afraid of falling. She finds comfort in her dog, which she says keeps her from hitting "rock bottom" with her depression. Her medications were reviewed today and her list is now up to date. Medications Current Outpatient Medications Medication Sig oxyCODONE IR (ROXICODONE) 10 mg tab Take 1 tablet by mouth three times a day as needed for pain for up to 7 days. Patient should start on February 15, 2025. gabapentin (NEURONTIN) 800 mg tablet Take 1 tablet by mouth four times daily for 90 days. albuterol HFA (PROVENTIL HFA, VENTOLIN HFA) 90 mcg/actuation inhaler Inhale 2 puffs as instructed every 4 hours as needed for wheezing/shortness of breath. insulin lispro (HUMALOG KWIKPEN) 100 unit/mL Inject 8 Units subcutaneously three times a day before meals. Taking as needed insulin glargine 100 unit/mL (3 mL) Inject 27 Units subcutaneously daily at bedtime. polyethylene glycol 3350 17 gram/dose powder Take 17 g by mouth once daily as needed for constipation. Cholecalciferol, Vitamin D3, 50 mcg (2,000 unit) cap Take 1 capsule by mouth once daily. hydrALAZINE (APRESOLINE) 50 mg tablet Take 1 tablet by mouth four times daily. Hold if blood pressure is less than 110/60 hydroCHLOROthiazide 25 mg tablet Take 1 tablet by mouth once daily. ondansetron orally disintegrating (ZOFRAN ODT) 8 mg disintegrating tablet Take 1 tablet by mouth every 8 hours as needed for nausea/vomiting. omeprazole (PRILOSEC) 40 mg capsule Take 1 capsule by mouth two times a day. fluticasone-salmeterol HFA (ADVAIR HFA) 230-21 mcg/actuation inhaler Inhale 2 Puffs as instructed two times a day. loratadine (CLARITIN) 10 mg tablet Take 1 tablet by mouth once daily. tiZANidine (ZANAFLEX) 4 mg tablet Take 1 tablet by mouth three times a day as needed. FLUoxetine (PROZAC) 10 mg capsule Take 1 capsule by mouth once daily. Insulin Willow, Disposable, (BD ULTRA-FINE PAMDINI PEN NEEDLE) 32 gauge x 5/32" 1 Each three times a day. blood sugar diagnostic ([employer]UCH VERIO TEST STRIPS) test strip 1 Strip four times daily. Use as instructed CPAP/BIPAP/OTHER Type .CPAPSettings into a note to see current settings/supplies/DME information. No current facility-administered medications for this visit. ALLERGIES Allergen Reactions Duloxetine Swelling, Other: See Comments Other reaction(s): swelling Other reaction(s): Unknown Other reaction(s): swelling Nsaids (Non-Steroid* GI Upset Other reaction(s): GI Upset Other reaction(s): cramping, GI Upset, Other (See Comments), Upset Stomach Severe stomach pain Other reaction(s): GI Upset Penicillins Rash, Other: See Comments Other reaction(s): GI Upset, hives, horrible taste in mouth Other reaction(s): GI Upset, GI Upset, horrible taste in mouth, leaves a bad taste in her mouth., NEEDS FOLLOW-UP Other reaction(s): GI Upset, hives, horrible taste in mouth Pregabalin Swelling, Other: See Comments, Unknown Other reaction(s): swelling, Swelling Other reaction(s): Swelling, Unknown Other reaction(s): swelling, Swelling Amlodipine Intolerance leg swelling at 10 mg Celebrex [Celecoxib] Intolerance feet and leg swelling Penicillin G GI Upset Ibuprofen GI Upset Vomiting cramping Tylenol [Acetaminop* GI Upset ACTIVE PROBLEM LIST Closed Displaced Comminuted Fracture of Shaft of Left Femur ([facility]) - 11/08/2024 Presence of Right Artificial Hip Joint - 11/08/2024 Osteoporosis - 08/20/2024 Nicotine use disorder, F17.2 - 11/28/2023 Abdominal Bloating - 10/13/2023 Obesity - 10/13/2023 Dm Gastroparesis ([facility]) - 07/04/2023 Primary Hypertension - 06/11/2023 Neuropathy - 06/11/2023 Back Pain With History of Spinal Surgery - 06/11/2023 Francisco (Obstructive Sleep Apnea) - 06/11/2023 Chronic Gastritis Without Bleeding - 03/12/2023 Gastric Wall Thickening - 03/12/2023 Dyspepsia - 02/21/2023 Epigastric Pain - 02/21/2023 Right Upper Quadrant Abdominal Pain - 02/21/2023 Sciatica - 11/18/2022 Tobacco Use - 11/05/[address] Scan, Kidney - 11/05/2022 Postlaminectomy Syndrome of Lumbar Region - 10/31/2022 Uncontrolled Type 2 Diabetes Mellitus With Hyperglycemia ([facility]) - 08/28/2022 Chronic Midline Low Back Pain With Sciatica - 08/28/2022 Chronic Obstructive Pulmonary Disease, Unspecified ([facility]) - 11/30/2021 Hyperlipidemia, Unspecified - 06/15/2021 Social History Tobacco Use Smoking status: Every Day Current packs/day: 1.00 Types: Cigarettes Smokeless tobacco: Never Tobacco comments: 3/4's of a pack daily Vaping Use Vaping status: Never Used Substance Use Topics Alcohol use: Never Drug use: Never Review of Systems Respiratory: Negative. Cardiovascular: Negative. Musculoskeletal: Positive for arthralgias and myalgias. Psychiatric/Behavioral: Positive for dysphoric mood. Negative for self-injury and suicidal ideas. The patient is nervous/anxious. OBJECTIVE BP 134/80 Pulse 86 Wt 143 lb 8.3 oz (65.1kg) SpO2 97% Physical Exam Vitals and nursing note reviewed. Constitutional: General: She is awake. She is not in acute distress. Appearance: Normal appearance. She is well-developed and well-groomed. She is not ill-appearing, toxic-appearing or diaphoretic. HENT: Head: Normocephalic. Right Ear: External ear normal. Left Ear: External ear normal. Nose: Nose normal. Eyes: General: Vision grossly intact. Conjunctiva/sclera: Conjunctivae normal. Pupils: Pupils are equal, round, and reactive to light. Neck: Vascular: No JVD. Trachea: Trachea normal. Cardiovascular: Rate and Rhythm: Normal rate and regular rhythm. Pulses: Normal pulses. Heart sounds: Normal heart sounds. No murmur heard. Pulmonary: Effort: Pulmonary effort is normal. No accessory muscle usage, prolonged expiration or respiratory distress. Breath sounds: Normal breath sounds. Musculoskeletal: Cervical back: Neck supple. Skin: General: Skin is warm and dry. Capillary Refill: Capillary refill takes less than 2 seconds. Neurological: General: No focal deficit present. Mental Status: She is alert and oriented to person, place, and time. Mental status is at baseline. Psychiatric: Attention and Perception: Attention and perception normal. Mood and Affect: Mood and affect normal. Speech: Speech normal. Behavior: Behavior normal. Behavior is cooperative. Thought Content: Thought content normal. Cognition and Memory: Cognition and memory normal. Judgment: Judgment normal. ASSESSMENT/PLAN: 1. Other chronic postprocedural pain (G89.28) Closed displaced comminuted fracture of shaft of left femur, sequela (S72.352S) Presence of right artificial hip joint (Z96.641) Persistent severe pain post back surgery, suspecting hardware involvement. Scheduled follow-up with orthopedics in March. Current pain management includes gabapentin and muscle relaxants. - Continue current pain management regimen. - Scheduled follow-up with orthopedics in March. - Can message Dr. Hanks regarding increasing pain medication frequency to four times daily - Referred to pain management, appointment scheduled for late March. 2. Dysthymic (F34.1) Major depressive disorder, recurrent, moderate (HCC) (F33.1) Experiencing significant depressive symptoms, including feelings of hopelessness and difficulty coping with chronic pain and mobility issues. Previous trials of Cymbalta and Effexor were not well-tolerated or effective. - Initiated Prozac therapy. - Educated patient on expected benefits of Prozac in stabilizing mood and reducing depressive symptoms. - Advised follow-up with David on March 14 to assess response to Prozac and consider dosage adjustment if necessary. 3. Difficulty walking (R26.2) Severe mobility limitations, reliant on a walker for over two years. Fearful of physical therapy due to pain. - Scheduled physical therapy at [facility]. - Encouraged patient to communicate pain levels and limitations to physical therapist to tailor therapy appropriately. 4. Type 2 diabetes mellitus without complication, with long-term current use of insulin (HCC) (E11.9) Blood glucose levels are stable. Patient reports difficulty with cooking and maintaining physical activity due to mobility issues. - Continue current insulin regimen. - Monitor blood glucose levels regularly. Portions of this note have been entered by ancillary staff. I have reviewed and when necessary edited, so that they are an adequate record of my encounter with this patient Please note that parts of this document were created using voice recognition software and therefore may contain grammatical errors. Patient verbalizes understanding of instructions from today's visit and in agreement with treatment plan. Questions answered. Agrees to call the office if questions, concerns of issues with acute symptoms not improving or if they worsen. See diagnoses and orders for additional plan(s). Allergies and medications were reviewed, list was updated, and refills given if needed. Past medical, surgical, social, and family history reviewed and updated as appropriate. Encouraged proper diet AND exercise as well as compliance with taking medications. Age-appropriate health preventative measures were discussed. Return if symptoms worsen or fail to improve. Crystal Robles APRN-[facility] Allergies As of Date: 02/15/2025 Noted Allergy Reaction DULOXETINE 06/15/2021 7 - Swelling 14 - Other: See Comments Comments: Other reaction(s): swelling Other reaction(s): Unknown Other reaction(s): swelling NSAIDS (NON-STEROIDAL ANTI-INFLAM*08/15/2020 8 - GI Upset Comments: Other reaction(s): GI Upset Other reaction(s): cramping, GI Upset, Other (See Comments), Upset Stomach Severe stomach pain Other reaction(s): GI Upset PENICILLINS 08/15/2020 2 - Rash 14 - Other: See Comments Comments: Other reaction(s): GI Upset, hives, horrible taste in mouth Other reaction(s): GI Upset, GI Upset, horrible taste in mouth, leaves a bad taste in her mouth., NEEDS FOLLOW-UP Other reaction(s): GI Upset, hives, horrible taste in mouth PREGABALIN 08/15/2020 7 - Swelling 14 - Other: See Comments 16 - Unknown Comments: Other reaction(s): swelling, Swelling Other reaction(s): Swelling, Unknown Other reaction(s): swelling, Swelling AMLODIPINE 06/22/2024 5 - Intolerance Comments: leg swelling at 10 mg CELEBREX (CELECOXIB) 08/09/2024 5 - Intolerance Comments: feet and leg swelling PENICILLIN G 11/11/2021 8 - GI Upset IBUPROFEN 11/11/2021 8 - GI Upset Comments: Vomiting cramping TYLENOL (ACETAMINOPHEN) 10/27/2022 8 - GI Upset Date Reviewed: 02/15/2025 Reviewed by: Crystal Robles APRN.REFRIGERATING ENGINEER - Fully Assessed Reason for Visit: Recheck [92] Cmt: and needs medication refills Primary Visit Diagnosis:Other chronic postprocedural pain [G89.28] Other Visit Diagnoses:Closed displaced comminuted fracture of shaft of left femur, sequela [S72.352S] Presence of right artificial hip joint [Z96.641] Dysthymic [F34.1] Major depressive disorder, recurrent, moderate (HCC) [F33.1] Difficulty walking [R26.2] Type 2 diabetes mellitus without complication, with long-term current use of insulin (HCC) [E11.9, Z79.4] Order(s):tiZANidine (ZANAFLEX) 4 mg tabletTake 1 tablet by mouth three times a day as needed.Disp: 90 tabletRfl: 1 FLUoxetine (PROZAC) 10 mg capsuleTake 1 capsule by mouth once daily.Disp: 90 capsuleRfl: 2 Prescriptions as of 02/15/2025 - tiZANidine (ZANAFLEX) 4 mg tablet Take 1 tablet by mouth three times a day as needed. - FLUoxetine (PROZAC) 10 mg capsule Take 1 capsule by mouth once daily. - oxyCODONE IR (ROXICODONE) 10 mg tab Take 1 tablet by mouth three times a day as needed for pain for up to 7 days. Patient should start on February 15, 2025. - gabapentin (NEURONTIN) 800 mg tablet Take 1 tablet by mouth four times daily for 90 days. - albuterol HFA (PROVENTIL HFA, VENTOLIN HFA) 90 mcg/actuation inhaler Inhale 2 puffs as instructed every 4 hours as needed for wheezing/shortness of breath. - insulin lispro (HUMALOG KWIKPEN) 100 unit/mL Inject 8 Units subcutaneously three times a day before meals. Taking as needed - insulin glargine 100 unit/mL (3 mL) Inject 27 Units subcutaneously daily at bedtime. - polyethylene glycol 3350 17 gram/dose powder Take 17 g by mouth once daily as needed for constipation. - Cholecalciferol, Vitamin D3, 50 mcg (2,000 unit) cap Take 1 capsule by mouth once daily. - Insulin Willow, Disposable, (BD ULTRA-FINE PADMINI PEN NEEDLE) 32 gauge x 5/32" 1 Each three times a day. - hydrALAZINE (APRESOLINE) 50 mg tablet Take 1 tablet by mouth four times daily. Hold if blood pressure is less than 110/60 - hydroCHLOROthiazide 25 mg tablet Take 1 tablet by mouth once daily. - ondansetron orally disintegrating (ZOFRAN ODT) 8 mg disintegrating tablet Take 1 tablet by mouth every 8 hours as needed for nausea/vomiting. - omeprazole (PRILOSEC) 40 mg capsule Take 1 capsule by mouth two times a day. - blood sugar diagnostic ([employer]UCH VERIO TEST STRIPS) test strip 1 Strip four times daily. Use as instructed - fluticasone-salmeterol HFA (ADVAIR HFA) 230-21 mcg/actuation inhaler Inhale 2 Puffs as instructed two times a day. - loratadine (CLARITIN) 10 mg tablet Take 1 tablet by mouth once daily. - CPAP/BIPAP/OTHER Type .CPAPSettings into a note to see current settings/supplies/DME information. Problem List As Of Date 02/15/2025 Noted Resolved Uncontrolled type 2 diabetes mellitus with hype*08/28/2022 Chronic midline low back pain with sciatica [M5*08/28/2022 Chronic obstructive lung disease (HCC) [J44.9] 10/18/2022 11/05/2022 Chronic obstructive pulmonary disease, unspecif*11/30/2021 Hyperlipidemia, unspecified [E78.5] 06/15/2021 Tobacco use [Z72.0] 11/05/[address] scan, kidney [R93.429] 11/05/2022 Dyspepsia [R10.13] 02/21/2023 Epigastric pain [R10.13] 02/21/2023 Right upper quadrant abdominal pain [R10.11] 02/21/2023 Chronic gastritis without bleeding [K29.50] 03/12/2023 Gastric wall thickening [K31.89] 03/12/2023 Primary hypertension [I10] 06/11/2023 Neuropathy [G62.9] 06/11/2023 Back pain with history of spinal surgery [M54.9*06/11/2023 FRANCISCO (obstructive sleep apnea) [G47.33] 06/11/2023 DM gastroparesis (HCC) [E11.43, K31.84] 07/04/2023 Abdominal bloating [R14.0] 10/13/2023 Obesity [E66.9] 10/13/2023 Diagnosed: 10/13/2023 Postlaminectomy syndrome of lumbar region [M96.*10/31/2022 Diagnosed: 10/13/2023 Sciatica [M54.30] 11/18/2022 Diagnosed: 10/13/2023 Fall at home, initial encounter [W19.XXXA, Y92.*11/26/2023 12/04/2023 Nicotine use disorder, F17.2 [F17.200] 11/28/2023 Osteoporosis [M81.0] 08/20/2024 Closed displaced comminuted fracture of shaft o*11/08/2024 Presence of right artificial hip joint [Z96.641]11/08/2024 Prescriptions ordered this encounter Disp Refills Start End TIZANIDINE 4 MG TABLET 90 t* 1 02/15/2025 Route: PO Sig: Take 1 tablet by mouth three times a day as needed. FLUOXETINE 10 MG CAPSULE 90 c* 2 02/15/2025 Route: PO Sig: Take 1 capsule by mouth once daily. Medications Discontinued During This Encounter Prescriptions - tiZANidine (ZANAFLEX) 4 mg tablet (Discontinued) Take 1 tablet by mouth three times a day as needed. Disposition: Return if symptoms worsen or fail to improve. Follow-up and Disposition History for Encounter Date Provider Department Center 02/15/2025 [id number] ROBLESoster [facility] Encounter Status:Closed by CRYSTAL ROBLES on 02/15/25 CNPN Observed: 02/09/2025 12:00 AM Status: COMPLETED Source: [facility] Telephone (ORMDNA) FIORNIKKIE Jerry ([id number]) 1965 F Date Time Provider Department 02/09/25 NAVI RODRÍGUEZ ORMDNA During your visit today, we recorded the following information about you: Laverne Sharma RN 02/09/2025 10:41 AM Signed Patient called requesting a PM referral. AD 01/17/25. Navi Rodríguez MD 02/09/2025 10:47 AM Signed Addended by: NAVI RODRÍGUEZ on: 02/09/2025 10:47 AM Modules accepted: Orders Laverne Sharma RN 02/09/2025 11:21 AM Signed [phone] Gave patient above number. Allergies As of Date: 02/09/2025 Noted Allergy Reaction DULOXETINE 06/15/2021 7 - Swelling 14 - Other: See Comments Comments: Other reaction(s): swelling Other reaction(s): Unknown Other reaction(s): swelling NSAIDS (NON-STEROIDAL ANTI-INFLAM*08/15/2020 8 - GI Upset Comments: Other reaction(s): GI Upset Other reaction(s): cramping, GI Upset, Other (See Comments), Upset Stomach Severe stomach pain Other reaction(s): GI Upset PENICILLINS 08/15/2020 2 - Rash 14 - Other: See Comments Comments: Other reaction(s): GI Upset, hives, horrible taste in mouth Other reaction(s): GI Upset, GI Upset, horrible taste in mouth, leaves a bad taste in her mouth., NEEDS FOLLOW-UP Other reaction(s): GI Upset, hives, horrible taste in mouth PREGABALIN 08/15/2020 7 - Swelling 14 - Other: See Comments 16 - Unknown Comments: Other reaction(s): swelling, Swelling Other reaction(s): Swelling, Unknown Other reaction(s): swelling, Swelling AMLODIPINE 06/22/2024 5 - Intolerance Comments: leg swelling at 10 mg CELEBREX (CELECOXIB) 08/09/2024 5 - Intolerance Comments: feet and leg swelling PENICILLIN G 11/11/2021 8 - GI Upset IBUPROFEN 11/11/2021 8 - GI Upset Comments: Vomiting cramping TYLENOL (ACETAMINOPHEN) 10/27/2022 8 - GI Upset Date Reviewed: 01/25/2025 Reviewed by: Crystal Robles APRN.REFRIGERATING ENGINEER - Fully Assessed Primary Visit Diagnosis:Painful orthopaedic hardware [T84.84XA] Order(s):CONSULT TO PAIN MGT [476815] Order #: [id number]: 1 FUTURE Prescriptions as of 02/09/2025 - oxyCODONE IR (ROXICODONE) 10 mg tab Take 1 tablet by mouth three times a day as needed for pain for up to 7 days. Patient should start on February 08, 2025. - gabapentin (NEURONTIN) 800 mg tablet Take 1 tablet by mouth four times daily for 90 days. - albuterol HFA (PROVENTIL HFA, VENTOLIN HFA) 90 mcg/actuation inhaler Inhale 2 puffs as instructed every 4 hours as needed for wheezing/shortness of breath. - insulin lispro (HUMALOG KWIKPEN) 100 unit/mL Inject 8 Units subcutaneously three times a day before meals. Taking as needed - insulin glargine 100 unit/mL (3 mL) Inject 27 Units subcutaneously daily at bedtime. - polyethylene glycol 3350 17 gram/dose powder Take 17 g by mouth once daily as needed for constipation. - Cholecalciferol, Vitamin D3, 50 mcg (2,000 unit) cap Take 1 capsule by mouth once daily. - Insulin Willow, Disposable, (BD ULTRA-FINE PADMINI PEN NEEDLE) 32 gauge x 5/32" 1 Each three times a day. - hydrALAZINE (APRESOLINE) 50 mg tablet Take 1 tablet by mouth four times daily. Hold if blood pressure is less than 110/60 - tiZANidine (ZANAFLEX) 4 mg tablet Take 1 tablet by mouth three times a day as needed. - hydroCHLOROthiazide 25 mg tablet Take 1 tablet by mouth once daily. - ondansetron orally disintegrating (ZOFRAN ODT) 8 mg disintegrating tablet Take 1 tablet by mouth every 8 hours as needed for nausea/vomiting. - omeprazole (PRILOSEC) 40 mg capsule Take 1 capsule by mouth two times a day. - blood sugar diagnostic ([employer]UCH VERIO TEST STRIPS) test strip 1 Strip four times daily. Use as instructed - fluticasone-salmeterol HFA (ADVAIR HFA) 230-21 mcg/actuation inhaler Inhale 2 Puffs as instructed two times a day. - loratadine (CLARITIN) 10 mg tablet Take 1 tablet by mouth once daily. - CPAP/BIPAP/OTHER Type .CPAPSettings into a note to see current settings/supplies/DME information. Problem List As Of Date 02/09/2025 Noted Resolved Uncontrolled type 2 diabetes mellitus with hype*08/28/2022 Chronic midline low back pain with sciatica [M5*08/28/2022 Chronic obstructive lung disease (HCC) [J44.9] 10/18/2022 11/05/2022 Chronic obstructive pulmonary disease, unspecif*11/30/2021 Hyperlipidemia, unspecified [E78.5] 06/15/2021 Tobacco use [Z72.0] 11/05/[address] scan, kidney [R93.429] 11/05/2022 Dyspepsia [R10.13] 02/21/2023 Epigastric pain [R10.13] 02/21/2023 Right upper quadrant abdominal pain [R10.11] 02/21/2023 Chronic gastritis without bleeding [K29.50] 03/12/2023 Gastric wall thickening [K31.89] 03/12/2023 Primary hypertension [I10] 06/11/2023 Neuropathy [G62.9] 06/11/2023 Back pain with history of spinal surgery [M54.9*06/11/2023 FRANCISCO (obstructive sleep apnea) [G47.33] 06/11/2023 DM gastroparesis (HCC) [E11.43, K31.84] 07/04/2023 Abdominal bloating [R14.0] 10/13/2023 Obesity [E66.9] 10/13/2023 Diagnosed: 10/13/2023 Postlaminectomy syndrome of lumbar region [M96.*10/31/2022 Diagnosed: 10/13/2023 Sciatica [M54.30] 11/18/2022 Diagnosed: 10/13/2023 Fall at home, initial encounter [W19.XXXA, Y92.*11/26/2023 12/04/2023 Nicotine use disorder, F17.2 [F17.200] 11/28/2023 Osteoporosis [M81.0] 08/20/2024 Closed displaced comminuted fracture of shaft o*11/08/2024 Presence of right artificial hip joint [Z96.641]11/08/2024 Encounter Status:Closed by LAVERNE SHARMA on 02/09/25 PROGRESS Observed: 01/25/2025 2:02 PM Status: COMPLETED Source: [facility] ID: [id number] Author: CRYSTAL ROBLES APRN.REFRIGERATING ENGINEER Service: ? Author Type: Nurse Practitioner Type: Progress Notes Filed: 01/25/2025 14:56 Note Text: SUBJECTIVE Nikkie Buck is a 59 year old female here today for a check up on her medical problems. Chief Complaint Patient presents with: Pain: states continues to hurt a lot and stomach pains continues No change with the symptoms just no improvment HPI Nikkie is a 59-year-old female with a history of multiple fractures, right hip replacement, and abdominal pain. Presenting with persistent abdominal pain and pressure, as well as ongoing issues with fractures and pain management. Nikkie reports persistent abdominal pain and pressure localized to the right side, which has been ongoing for over a year. She describes the sensation as a constant pressure that does not hurt to touch but feels swollen. She has undergone multiple imaging studies, including a CT scan of the abdomen in January of last year and a HIDA scan, both of which were reported as normal. She also had a colonoscopy and EGD in October of last year, which revealed multiple high-risk polyps with pre-cancerous changes and the possibility of lymphocytic gastritis, respectively. She was to be treated with budesonide for 9 months but reports difficulty swallowing the medication and did not find it helpful. She also underwent a G-POEM procedure, which she states only helped with bowel movements but not with her abdominal pain. Nikkie has a family history of bowel issues, specifically a spastic colon in her aunt, who had part of her intestines removed. She expresses concern that her symptoms may be related to her colon or intestines. In addition to her abdominal issues, Nikkie has a history of multiple fractures, including a right hip replacement and a left femur fracture that is still healing. She recently had a fall that reopened a previous fracture, causing significant pain. She is scheduled to start physical therapy but is apprehensive due to the pain. She is currently on pain medication but reports that it exacerbates her abdominal issues. Nikkie also has a history of diabetes and is on insulin therapy. She reports that her blood sugars are generally well-controlled, with morning readings between 120-130 mg/dL. She notes a decreased appetite and early satiety, stating that she does not eat much and gets full quickly. Her medications were reviewed today and her list is now up to date. Medications Current Outpatient Medications Medication Sig gabapentin (NEURONTIN) 800 mg tablet Take 1 tablet by mouth four times daily for 90 days. albuterol HFA (PROVENTIL HFA, VENTOLIN HFA) 90 mcg/actuation inhaler Inhale 2 puffs as instructed every 4 hours as needed for wheezing/shortness of breath. insulin lispro (HUMALOG KWIKPEN) 100 unit/mL Inject 8 Units subcutaneously three times a day before meals. Taking as needed insulin glargine 100 unit/mL (3 mL) Inject 27 Units subcutaneously daily at bedtime. polyethylene glycol 3350 17 gram/dose powder Take 17 g by mouth once daily as needed for constipation. Cholecalciferol, Vitamin D3, 50 mcg (2,000 unit) cap Take 1 capsule by mouth once daily. hydrALAZINE (APRESOLINE) 50 mg tablet Take 1 tablet by mouth four times daily. Hold if blood pressure is less than 110/60 tiZANidine (ZANAFLEX) 4 mg tablet Take 1 tablet by mouth three times a day as needed. hydroCHLOROthiazide 25 mg tablet Take 1 tablet by mouth once daily. ondansetron orally disintegrating (ZOFRAN ODT) 8 mg disintegrating tablet Take 1 tablet by mouth every 8 hours as needed for nausea/vomiting. omeprazole (PRILOSEC) 40 mg capsule Take 1 capsule by mouth two times a day. fluticasone-salmeterol HFA (ADVAIR HFA) 230-21 mcg/actuation inhaler Inhale 2 Puffs as instructed two times a day. loratadine (CLARITIN) 10 mg tablet Take 1 tablet by mouth once daily. oxyCODONE IR (ROXICODONE) 10 mg tab Take 1 tablet by mouth three times a day as needed for pain for up to 7 days. Insulin Willow, Disposable, (BD ULTRA-FINE PADMINI PEN NEEDLE) 32 gauge x 5/32" 1 Each three times a day. blood sugar diagnostic ([employer] VERIO TEST STRIPS) test strip 1 Strip four times daily. Use as instructed CPAP/BIPAP/OTHER Type .CPAPSettings into a note to see current settings/supplies/DME information. No current facility-administered medications for this visit. ALLERGIES Allergen Reactions Duloxetine Swelling, Other: See Comments Other reaction(s): swelling Other reaction(s): Unknown Other reaction(s): swelling Nsaids (Non-Steroid* GI Upset Other reaction(s): GI Upset Other reaction(s): cramping, GI Upset, Other (See Comments), Upset Stomach Severe stomach pain Other reaction(s): GI Upset Penicillins Rash, Other: See Comments Other reaction(s): GI Upset, hives, horrible taste in mouth Other reaction(s): GI Upset, GI Upset, horrible taste in mouth, leaves a bad taste in her mouth., NEEDS FOLLOW-UP Other reaction(s): GI Upset, hives, horrible taste in mouth Pregabalin Swelling, Other: See Comments, Unknown Other reaction(s): swelling, Swelling Other reaction(s): Swelling, Unknown Other reaction(s): swelling, Swelling Amlodipine Intolerance leg swelling at 10 mg Celebrex [Celecoxib] Intolerance feet and leg swelling Penicillin G GI Upset Ibuprofen GI Upset Vomiting cramping Tylenol [Acetaminop* GI Upset ACTIVE PROBLEM LIST Closed Displaced Comminuted Fracture of Shaft of Left Femur (Hcc) - 11/08/2024 Presence of Right Artificial Hip Joint - 11/08/2024 Osteoporosis - 08/20/2024 Nicotine use disorder, F17.2 - 11/28/2023 Abdominal Bloating - 10/13/2023 Obesity - 10/13/2023 Dm Gastroparesis ([facility]) - 07/04/2023 Primary Hypertension - 06/11/2023 Neuropathy - 06/11/2023 Back Pain With History of Spinal Surgery - 06/11/2023 Francisco (Obstructive Sleep Apnea) - 06/11/2023 Chronic Gastritis Without Bleeding - 03/12/2023 Gastric Wall Thickening - 03/12/2023 Dyspepsia - 02/21/2023 Epigastric Pain - 02/21/2023 Right Upper Quadrant Abdominal Pain - 02/21/2023 Sciatica - 11/18/2022 Tobacco Use - 11/05/[address] Scan, Kidney - 11/05/2022 Postlaminectomy Syndrome of Lumbar Region - 10/31/2022 Uncontrolled Type 2 Diabetes Mellitus With Hyperglycemia ([facility]) - 08/28/2022 Chronic Midline Low Back Pain With Sciatica - 08/28/2022 Chronic Obstructive Pulmonary Disease, Unspecified ([facility]) - 11/30/2021 Hyperlipidemia, Unspecified - 06/15/2021 Social History Tobacco Use Smoking status: Every Day Current packs/day: 1.00 Types: Cigarettes Smokeless tobacco: Never Tobacco comments: 3/4's of a pack daily Vaping Use Vaping status: Never Used Substance Use Topics Alcohol use: Never Drug use: Never Review of Systems Respiratory: Negative. Cardiovascular: Negative. Gastrointestinal: Positive for abdominal pain. Musculoskeletal: Positive for arthralgias, gait problem and myalgias. OBJECTIVE BP 128/74 Pulse 82 Wt 143 lb 8.3 oz (65.1kg) SpO2 97% Physical Exam Vitals and nursing note reviewed. Constitutional: General: She is awake. She is not in acute distress. Appearance: Normal appearance. She is well-developed and well-groomed. She is not ill-appearing, toxic-appearing or diaphoretic. HENT: Head: Normocephalic. Right Ear: External ear normal. Left Ear: External ear normal. Nose: Nose normal. Eyes: General: Vision grossly intact. Conjunctiva/sclera: Conjunctivae normal. Pupils: Pupils are equal, round, and reactive to light. Neck: Vascular: No JVD. Trachea: Trachea normal. Cardiovascular: Rate and Rhythm: Normal rate and regular rhythm. Pulses: Normal pulses. Heart sounds: Normal heart sounds. No murmur heard. Pulmonary: Effort: Pulmonary effort is normal. No accessory muscle usage, prolonged expiration or respiratory distress. Breath sounds: Normal breath sounds. Abdominal: Tenderness: There is abdominal tenderness in the right upper quadrant. Comments: Area to the right upper quadrant that is more defined than rest of abdomen Musculoskeletal: Cervical back: Neck supple. Skin: General: Skin is warm and dry. Capillary Refill: Capillary refill takes less than 2 seconds. Neurological: General: No focal deficit present. Mental Status: She is alert and oriented to person, place, and time. Mental status is at baseline. Psychiatric: Attention and Perception: Attention and perception normal. Mood and Affect: Mood and affect normal. Speech: Speech normal. Behavior: Behavior normal. Behavior is cooperative. Thought Content: Thought content normal. Cognition and Memory: Cognition and memory normal. Judgment: Judgment normal. ASSESSMENT/PLAN: 1. RUQ pain (R10.11) Generalized abdominal pain (R10.84) Persistent RUQ pain with a well-defined palpable mass. Previous imaging includes a CT scan from January of last year showing atherosclerotic changes in the aorta and celiac artery stenosis. HIDA scan was normal. Differential diagnosis includes possible vascular insufficiency due to celiac artery stenosis. - Ordered right upper quadrant ultrasound to evaluate liver, gallbladder, and intestines. - Will consider further imaging based on ultrasound results. 2. Abnormal colonoscopy (R93.3) Previous colonoscopy in October of last year revealed multiple high-risk polyps with pre-cancerous changes. Recommended repeat colonoscopy was due 6 months post-procedure. - Contacted Dr. Miller to arrange a repeat colonoscopy. 3. Closed displaced comminuted fracture of shaft of left femur, sequela (S72.352S) Fracture remains unhealed with a wound that is slow to heal. Recent fall exacerbated the condition. Continue monitoring healing progress. 4. S/P right hip fracture (Z87.81) Presence of right artificial hip joint (Z96.641) Status post right hip replacement following fracture. Continue current management and follow-up with orthopedics as needed. 5. Chronic midline low back pain with sciatica, sciatica laterality unspecified (M54.40) Chronic low back pain with a new "knot" in the mid-back area, higher than previous surgical site. Monitor symptoms and consider further evaluation if pain persists or worsens. 6. Uncontrolled type 2 diabetes mellitus with hyperglycemia (HCC) (E11.65) Blood sugars are generally well-controlled with recent insulin dose adjustment to 27 units. Morning blood sugars range from 120 to 130 mg/dL. Continue current insulin regimen and monitor blood glucose levels regularly. Recording using [employer] software for draft documentation of the visit was discussed with the patient/authorized hospital insurance representative; all questions welcomed and answered. Patient/authorized hospital insurance representative agreed to proceed Portions of this note have been entered by ancillary staff. I have reviewed and when necessary edited, so that they are an adequate record of my encounter with this patient Please note that parts of this document were created using voice recognition software and therefore may contain grammatical errors. Patient verbalizes understanding of instructions from today's visit and in agreement with treatment plan. Questions answered. Agrees to call the office if questions, concerns of issues with acute symptoms not improving or if they worsen. See diagnoses and orders for additional plan(s). Allergies and medications were reviewed, list was updated, and refills given if needed. Past medical, surgical, social, and family history reviewed and updated as appropriate. Encouraged proper diet AND exercise as well as compliance with taking medications. Age-appropriate health preventative measures were discussed. Return if symptoms worsen or fail to improve, for Keep next scheduled appointment.. TAYLOR Fields CNOV Observed: 01/25/2025 2:00 PM Status: COMPLETED Source: [facility] Office Visit (INTMWS) FIORNIKKIE Rosalino ([id number]) 1965 F Date Time Provider Department 01/25/25 2:00 PM CRYSTAL ROBLES INTMWS During your visit today, we recorded the following information about you: Pulse Blood pressure Weight 82/minute 128/74 65.1 kg Cyrstal Robles APRN.CNP 01/25/2025 2:56 PM Signed SUBJECTIVE Nikkie Rosalino Buck is a 59 year old female here today for a check up on her medical problems. Chief Complaint Patient presents with: Pain: states continues to hurt a lot and stomach pains continues No change with the symptoms just no improvment HPI Nikkie is a 59-year-old female with a history of multiple fractures, right hip replacement, and abdominal pain. Presenting with persistent abdominal pain and pressure, as well as ongoing issues with fractures and pain management. Nikkie reports persistent abdominal pain and pressure localized to the right side, which has been ongoing for over a year. She describes the sensation as a constant pressure that does not hurt to touch but feels swollen. She has undergone multiple imaging studies, including a CT scan of the abdomen in January of last year and a HIDA scan, both of which were reported as normal. She also had a colonoscopy and EGD in October of last year, which revealed multiple high-risk polyps with pre-cancerous changes and the possibility of lymphocytic gastritis, respectively. She was to be treated with budesonide for 9 months but reports difficulty swallowing the medication and did not find it helpful. She also underwent a G-POEM procedure, which she states only helped with bowel movements but not with her abdominal pain. Nikkie has a family history of bowel issues, specifically a spastic colon in her aunt, who had part of her intestines removed. She expresses concern that her symptoms may be related to her colon or intestines. In addition to her abdominal issues, Nikkie has a history of multiple fractures, including a right hip replacement and a left femur fracture that is still healing. She recently had a fall that reopened a previous fracture, causing significant pain. She is scheduled to start physical therapy but is apprehensive due to the pain. She is currently on pain medication but reports that it exacerbates her abdominal issues. Nikkie also has a history of diabetes and is on insulin therapy. She reports that her blood sugars are generally well-controlled, with morning readings between 120-130 mg/dL. She notes a decreased appetite and early satiety, stating that she does not eat much and gets full quickly. Her medications were reviewed today and her list is now up to date. Medications Current Outpatient Medications Medication Sig gabapentin (NEURONTIN) 800 mg tablet Take 1 tablet by mouth four times daily for 90 days. albuterol HFA (PROVENTIL HFA, VENTOLIN HFA) 90 mcg/actuation inhaler Inhale 2 puffs as instructed every 4 hours as needed for wheezing/shortness of breath. insulin lispro (HUMALOG KWIKPEN) 100 unit/mL Inject 8 Units subcutaneously three times a day before meals. Taking as needed insulin glargine 100 unit/mL (3 mL) Inject 27 Units subcutaneously daily at bedtime. polyethylene glycol 3350 17 gram/dose powder Take 17 g by mouth once daily as needed for constipation. Cholecalciferol, Vitamin D3, 50 mcg (2,000 unit) cap Take 1 capsule by mouth once daily. hydrALAZINE (APRESOLINE) 50 mg tablet Take 1 tablet by mouth four times daily. Hold if blood pressure is less than 110/60 tiZANidine (ZANAFLEX) 4 mg tablet Take 1 tablet by mouth three times a day as needed. hydroCHLOROthiazide 25 mg tablet Take 1 tablet by mouth once daily. ondansetron orally disintegrating (ZOFRAN ODT) 8 mg disintegrating tablet Take 1 tablet by mouth every 8 hours as needed for nausea/vomiting. omeprazole (PRILOSEC) 40 mg capsule Take 1 capsule by mouth two times a day. fluticasone-salmeterol HFA (ADVAIR HFA) 230-21 mcg/actuation inhaler Inhale 2 Puffs as instructed two times a day. loratadine (CLARITIN) 10 mg tablet Take 1 tablet by mouth once daily. oxyCODONE IR (ROXICODONE) 10 mg tab Take 1 tablet by mouth three times a day as needed for pain for up to 7 days. Insulin [employer], Disposable, (BD ULTRA-FINE PADMINI PEN NEEDLE) 32 gauge x 5/32" 1 Each three times a day. blood sugar diagnostic ([employer] VERIO TEST STRIPS) test strip 1 Strip four times daily. Use as instructed CPAP/BIPAP/OTHER Type .CPAPSettings into a note to see current settings/supplies/DME information. No current facility-administered medications for this visit. ALLERGIES Allergen Reactions Duloxetine Swelling, Other: See Comments Other reaction(s): swelling Other reaction(s): Unknown Other reaction(s): swelling Nsaids (Non-Steroid* GI Upset Other reaction(s): GI Upset Other reaction(s): cramping, GI Upset, Other (See Comments), Upset Stomach Severe stomach pain Other reaction(s): GI Upset Penicillins Rash, Other: See Comments Other reaction(s): GI Upset, hives, horrible taste in mouth Other reaction(s): GI Upset, GI Upset, horrible taste in mouth, leaves a bad taste in her mouth., NEEDS FOLLOW-UP Other reaction(s): GI Upset, hives, horrible taste in mouth Pregabalin Swelling, Other: See Comments, Unknown Other reaction(s): swelling, Swelling Other reaction(s): Swelling, Unknown Other reaction(s): swelling, Swelling Amlodipine Intolerance leg swelling at 10 mg Celebrex [Celecoxib] Intolerance feet and leg swelling Penicillin G GI Upset Ibuprofen GI Upset Vomiting cramping Tylenol [Acetaminop* GI Upset ACTIVE PROBLEM LIST Closed Displaced Comminuted Fracture of Shaft of Left Femur ([facility]) - 11/08/2024 Presence of Right Artificial Hip Joint - 11/08/2024 Osteoporosis - 08/20/2024 Nicotine use disorder, F17.2 - 11/28/2023 Abdominal Bloating - 10/13/2023 Obesity - 10/13/2023 Dm Gastroparesis ([facility]) - 07/04/2023 Primary Hypertension - 06/11/2023 Neuropathy - 06/11/2023 Back Pain With History of Spinal Surgery - 06/11/2023 Francisco (Obstructive Sleep Apnea) - 06/11/2023 Chronic Gastritis Without Bleeding - 03/12/2023 Gastric Wall Thickening - 03/12/2023 Dyspepsia - 02/21/2023 Epigastric Pain - 02/21/2023 Right Upper Quadrant Abdominal Pain - 02/21/2023 Sciatica - 11/18/2022 Tobacco Use - 11/05/[address] Scan, Kidney - 11/05/2022 Postlaminectomy Syndrome of Lumbar Region - 10/31/2022 Uncontrolled Type 2 Diabetes Mellitus With Hyperglycemia ([facility]) - 08/28/2022 Chronic Midline Low Back Pain With Sciatica - 08/28/2022 Chronic Obstructive Pulmonary Disease, Unspecified ([facility]) - 11/30/2021 Hyperlipidemia, Unspecified - 06/15/2021 Social History Tobacco Use Smoking status: Every Day Current packs/day: 1.00 Types: Cigarettes Smokeless tobacco: Never Tobacco comments: 3/4's of a pack daily Vaping Use Vaping status: Never Used Substance Use Topics Alcohol use: Never Drug use: Never Review of Systems Respiratory: Negative. Cardiovascular: Negative. Gastrointestinal: Positive for abdominal pain. Musculoskeletal: Positive for arthralgias, gait problem and myalgias. OBJECTIVE BP 128/74 Pulse 82 Wt 143 lb 8.3 oz (65.1kg) SpO2 97% Physical Exam Vitals and nursing note reviewed. Constitutional: General: She is awake. She is not in acute distress. Appearance: Normal appearance. She is well-developed and well-groomed. She is not ill-appearing, toxic-appearing or diaphoretic. HENT: Head: Normocephalic. Right Ear: External ear normal. Left Ear: External ear normal. Nose: Nose normal. Eyes: General: Vision grossly intact. Conjunctiva/sclera: Conjunctivae normal. Pupils: Pupils are equal, round, and reactive to light. Neck: Vascular: No JVD. Trachea: Trachea normal. Cardiovascular: Rate and Rhythm: Normal rate and regular rhythm. Pulses: Normal pulses. Heart sounds: Normal heart sounds. No murmur heard. Pulmonary: Effort: Pulmonary effort is normal. No accessory muscle usage, prolonged expiration or respiratory distress. Breath sounds: Normal breath sounds. Abdominal: Tenderness: There is abdominal tenderness in the right upper quadrant. Comments: Area to the right upper quadrant that is more defined than rest of abdomen Musculoskeletal: Cervical back: Neck supple. Skin: General: Skin is warm and dry. Capillary Refill: Capillary refill takes less than 2 seconds. Neurological: General: No focal deficit present. Mental Status: She is alert and oriented to person, place, and time. Mental status is at baseline. Psychiatric: Attention and Perception: Attention and perception normal. Mood and Affect: Mood and affect normal. Speech: Speech normal. Behavior: Behavior normal. Behavior is cooperative. Thought Content: Thought content normal. Cognition and Memory: Cognition and memory normal. Judgment: Judgment normal. ASSESSMENT/PLAN: 1. RUQ pain (R10.11) Generalized abdominal pain (R10.84) Persistent RUQ pain with a well-defined palpable mass. Previous imaging includes a CT scan from January of last year showing atherosclerotic changes in the aorta and celiac artery stenosis. HIDA scan was normal. Differential diagnosis includes possible vascular insufficiency due to celiac artery stenosis. - Ordered right upper quadrant ultrasound to evaluate liver, gallbladder, and intestines. - Will consider further imaging based on ultrasound results. 2. Abnormal colonoscopy (R93.3) Previous colonoscopy in October of last year revealed multiple high-risk polyps with pre-cancerous changes. Recommended repeat colonoscopy was due 6 months post-procedure. - Contacted Dr. Miller to arrange a repeat colonoscopy. 3. Closed displaced comminuted fracture of shaft of left femur, sequela (S72.352S) Fracture remains unhealed with a wound that is slow to heal. Recent fall exacerbated the condition. Continue monitoring healing progress. 4. S/P right hip fracture (Z87.81) Presence of right artificial hip joint (Z96.641) Status post right hip replacement following fracture. Continue current management and follow-up with orthopedics as needed. 5. Chronic midline low back pain with sciatica, sciatica laterality unspecified (M54.40) Chronic low back pain with a new "knot" in the mid-back area, higher than previous surgical site. Monitor symptoms and consider further evaluation if pain persists or worsens. 6. Uncontrolled type 2 diabetes mellitus with hyperglycemia (HCC) (E11.65) Blood sugars are generally well-controlled with recent insulin dose adjustment to 27 units. Morning blood sugars range from 120 to 130 mg/dL. Continue current insulin regimen and monitor blood glucose levels regularly. Recording using [employer] software for draft documentation of the visit was discussed with the patient/authorized hospital insurance representative; all questions welcomed and answered. Patient/authorized hospital insurance representative agreed to proceed Portions of this note have been entered by ancillary staff. I have reviewed and when necessary edited, so that they are an adequate record of my encounter with this patient Please note that parts of this document were created using voice recognition software and therefore may contain grammatical errors. Patient verbalizes understanding of instructions from today's visit and in agreement with treatment plan. Questions answered. Agrees to call the office if questions, concerns of issues with acute symptoms not improving or if they worsen. See diagnoses and orders for additional plan(s). Allergies and medications were reviewed, list was updated, and refills given if needed. Past medical, surgical, social, and family history reviewed and updated as appropriate. Encouraged proper diet AND exercise as well as compliance with taking medications. Age-appropriate health preventative measures were discussed. Return if symptoms worsen or fail to improve, for Keep next scheduled appointment.. Crystal Robles APRN-Crystal Corrales APRN.HONEY 01/25/2025 2:26 PM Addendum Right upper quadrant ultrasound. Contact general surgery to see about repeat colonoscopy. Refill of pain medicine sent. Allergies As of Date: 01/25/2025 Noted Allergy Reaction DULOXETINE 06/15/2021 7 - Swelling 14 - Other: See Comments Comments: Other reaction(s): swelling Other reaction(s): Unknown Other reaction(s): swelling NSAIDS (NON-STEROIDAL ANTI-INFLAM*08/15/2020 8 - GI Upset Comments: Other reaction(s): GI Upset Other reaction(s): cramping, GI Upset, Other (See Comments), Upset Stomach Severe stomach pain Other reaction(s): GI Upset PENICILLINS 08/15/2020 2 - Rash 14 - Other: See Comments Comments: Other reaction(s): GI Upset, hives, horrible taste in mouth Other reaction(s): GI Upset, GI Upset, horrible taste in mouth, leaves a bad taste in her mouth., NEEDS FOLLOW-UP Other reaction(s): GI Upset, hives, horrible taste in mouth PREGABALIN 08/15/2020 7 - Swelling 14 - Other: See Comments 16 - Unknown Comments: Other reaction(s): swelling, Swelling Other reaction(s): Swelling, Unknown Other reaction(s): swelling, Swelling AMLODIPINE 06/22/2024 5 - Intolerance Comments: leg swelling at 10 mg CELEBREX (CELECOXIB) 08/09/2024 5 - Intolerance Comments: feet and leg swelling PENICILLIN G 11/11/2021 8 - GI Upset IBUPROFEN 11/11/2021 8 - GI Upset Comments: Vomiting cramping TYLENOL (ACETAMINOPHEN) 10/27/2022 8 - GI Upset Date Reviewed: 01/25/2025 Reviewed by: Crystal Robles APRN.REFRIGERATING ENGINEER - Fully Assessed Reason for Visit: Pain [78] Cmt: states continues to hurt a lot and stomach pains continues No change with the symptoms just no improvment Primary Visit Diagnosis:RUQ pain [R10.11] Other Visit Diagnoses:Generalized abdominal pain [R10.84] Abnormal colonoscopy [R93.3] Closed displaced comminuted fracture of shaft of left femur, sequela [S72.352S] S/P right hip fracture [Z87.81] Presence of right artificial hip joint [Z96.641] Chronic midline low back pain with sciatica, sciatica laterality unspecified [M54.40, G89.29] Uncontrolled type 2 diabetes mellitus with hyperglycemia (HCC) [E11.65] Order(s):[facility] RIGHT UPPER QUADRANT [[id number]] Order #: [id number] FUTURE Prescriptions as of 01/25/2025 - oxyCODONE IR (ROXICODONE) 10 mg tab Take 1 tablet by mouth three times a day as needed for pain for up to 7 days. - gabapentin (NEURONTIN) 800 mg tablet Take 1 tablet by mouth four times daily for 90 days. - albuterol HFA (PROVENTIL HFA, VENTOLIN HFA) 90 mcg/actuation inhaler Inhale 2 puffs as instructed every 4 hours as needed for wheezing/shortness of breath. - insulin lispro (HUMALOG KWIKPEN) 100 unit/mL Inject 8 Units subcutaneously three times a day before meals. Taking as needed - insulin glargine 100 unit/mL (3 mL) Inject 27 Units subcutaneously daily at bedtime. - polyethylene glycol 3350 17 gram/dose powder Take 17 g by mouth once daily as needed for constipation. - Cholecalciferol, Vitamin D3, 50 mcg (2,000 unit) cap Take 1 capsule by mouth once daily. - Insulin Willow, Disposable, (BD ULTRA-FINE PADMINI PEN NEEDLE) 32 gauge x 5/32" 1 Each three times a day. - hydrALAZINE (APRESOLINE) 50 mg tablet Take 1 tablet by mouth four times daily. Hold if blood pressure is less than 110/60 - tiZANidine (ZANAFLEX) 4 mg tablet Take 1 tablet by mouth three times a day as needed. - hydroCHLOROthiazide 25 mg tablet Take 1 tablet by mouth once daily. - ondansetron orally disintegrating (ZOFRAN ODT) 8 mg disintegrating tablet Take 1 tablet by mouth every 8 hours as needed for nausea/vomiting. - omeprazole (PRILOSEC) 40 mg capsule Take 1 capsule by mouth two times a day. - blood sugar diagnostic ([employer]UCH VERIO TEST STRIPS) test strip 1 Strip four times daily. Use as instructed - fluticasone-salmeterol HFA (ADVAIR HFA) 230-21 mcg/actuation inhaler Inhale 2 Puffs as instructed two times a day. - loratadine (CLARITIN) 10 mg tablet Take 1 tablet by mouth once daily. - CPAP/BIPAP/OTHER Type .CPAPSettings into a note to see current settings/supplies/DME information. Problem List As Of Date 01/25/2025 Noted Resolved Uncontrolled type 2 diabetes mellitus with hype*08/28/2022 Chronic midline low back pain with sciatica [M5*08/28/2022 Chronic obstructive lung disease (HCC) [J44.9] 10/18/2022 11/05/2022 Chronic obstructive pulmonary disease, unspecif*11/30/2021 Hyperlipidemia, unspecified [E78.5] 06/15/2021 Tobacco use [Z72.0] 11/05/[address] scan, kidney [R93.429] 11/05/2022 Dyspepsia [R10.13] 02/21/2023 Epigastric pain [R10.13] 02/21/2023 Right upper quadrant abdominal pain [R10.11] 02/21/2023 Chronic gastritis without bleeding [K29.50] 03/12/2023 Gastric wall thickening [K31.89] 03/12/2023 Primary hypertension [I10] 06/11/2023 Neuropathy [G62.9] 06/11/2023 Back pain with history of spinal surgery [M54.9*06/11/2023 FRANCISCO (obstructive sleep apnea) [G47.33] 06/11/2023 DM gastroparesis (HCC) [E11.43, K31.84] 07/04/2023 Abdominal bloating [R14.0] 10/13/2023 Obesity [E66.9] 10/13/2023 Diagnosed: 10/13/2023 Postlaminectomy syndrome of lumbar region [M96.*10/31/2022 Diagnosed: 10/13/2023 Sciatica [M54.30] 11/18/2022 Diagnosed: 10/13/2023 Fall at home, initial encounter [W19.XXXA, Y92.*11/26/2023 12/04/2023 Nicotine use disorder, F17.2 [F17.200] 11/28/2023 Osteoporosis [M81.0] 08/20/2024 Closed displaced comminuted fracture of shaft o*11/08/2024 Presence of right artificial hip joint [Z96.641]11/08/2024 Other instructions from your clinician: Right upper quadrant ultrasound. Contact general surgery to see about repeat colonoscopy. Refill of pain medicine sent. Medications Discontinued During This Encounter Prescriptions - empagliflozin (JARDIANCE) 10 mg tablet (Discontinued) Take 1 tablet by mouth daily with breakfast. - losartan (COZAAR) 100 mg tablet (Discontinued) Take 1 tablet by mouth once daily. Disposition: Return if symptoms worsen or fail to improve, for Keep next scheduled appointment.. Follow-up and Disposition History for Encounter Date Provider Department Center 01/25/2025 [id number]-YSRIBMSCRYSTAL ROBLESWS [facility] Encounter Status:Closed by CRYSTAL ROBLES on 01/25/25 CNPN Observed: 01/20/2025 12:00 AM Status: COMPLETED Source: [facility] Telephone (ORMDNA) NIKKIE BUCK ([id number]) 1965 F Date Time Provider Department 01/20/25 NAVI RODRÍGUEZ ORNipendo During your visit today, we recorded the following information about you: Laverne Sharma, VERONICA 01/20/2025 1:10 PM Signed Patient called triage line. States she has been trying to get in touch with office for 3 days about needing "papers" faxed for her to start PT. Returned call, LVM. Explained this was the first message received, gave office number. Requested she call back with fax number and what she would like faxed for her PT. Will MyChart as well. Sade Montes 01/20/2025 2:35 PM Addendum Patient called and requested we fax PT orders. Faxed as requested Fax - [facility] [place] [phone]. Elian Painter RN 01/21/2025 10:07 AM Signed Pt called RN line this morning asking for PT orders to be faxed. LVM letting pt know they were faxed yesterday. Allergies As of Date: 01/20/2025 Noted Allergy Reaction DULOXETINE 06/15/2021 7 - Swelling 14 - Other: See Comments Comments: Other reaction(s): swelling Other reaction(s): Unknown Other reaction(s): swelling NSAIDS (NON-STEROIDAL ANTI-INFLAM*08/15/2020 8 - GI Upset Comments: Other reaction(s): GI Upset Other reaction(s): cramping, GI Upset, Other (See Comments), Upset Stomach Severe stomach pain Other reaction(s): GI Upset PENICILLINS 08/15/2020 2 - Rash 14 - Other: See Comments Comments: Other reaction(s): GI Upset, hives, horrible taste in mouth Other reaction(s): GI Upset, GI Upset, horrible taste in mouth, leaves a bad taste in her mouth., NEEDS FOLLOW-UP Other reaction(s): GI Upset, hives, horrible taste in mouth PREGABALIN 08/15/2020 7 - Swelling 14 - Other: See Comments 16 - Unknown Comments: Other reaction(s): swelling, Swelling Other reaction(s): Swelling, Unknown Other reaction(s): swelling, Swelling AMLODIPINE 06/22/2024 5 - Intolerance Comments: leg swelling at 10 mg CELEBREX (CELECOXIB) 08/09/2024 5 - Intolerance Comments: feet and leg swelling PENICILLIN G 11/11/2021 8 - GI Upset IBUPROFEN 11/11/2021 8 - GI Upset Comments: Vomiting cramping TYLENOL (ACETAMINOPHEN) 10/27/2022 8 - GI Upset Date Reviewed: 01/17/2025 Reviewed by: Abhinav Glynn MA - Fully Assessed Prescriptions as of 01/21/2025 - oxyCODONE IR (ROXICODONE) 10 mg tab Take 1 tablet by mouth three times a day as needed for pain for up to 7 days. - gabapentin (NEURONTIN) 800 mg tablet Take 1 tablet by mouth four times daily for 90 days. - albuterol HFA (PROVENTIL HFA, VENTOLIN HFA) 90 mcg/actuation inhaler Inhale 2 puffs as instructed every 4 hours as needed for wheezing/shortness of breath. - insulin lispro (HUMALOG KWIKPEN) 100 unit/mL Inject 8 Units subcutaneously three times a day before meals. Taking as needed - insulin glargine 100 unit/mL (3 mL) Inject 27 Units subcutaneously daily at bedtime. - polyethylene glycol 3350 17 gram/dose powder Take 17 g by mouth once daily as needed for constipation. - Cholecalciferol, Vitamin D3, 50 mcg (2,000 unit) cap Take 1 capsule by mouth once daily. - Insulin Willow, Disposable, (BD ULTRA-FINE PADMINI PEN NEEDLE) 32 gauge x 5/32" 1 Each three times a day. - empagliflozin (JARDIANCE) 10 mg tablet Take 1 tablet by mouth daily with breakfast. - losartan (COZAAR) 100 mg tablet Take 1 tablet by mouth once daily. - hydrALAZINE (APRESOLINE) 50 mg tablet Take 1 tablet by mouth four times daily. Hold if blood pressure is less than 110/60 - tiZANidine (ZANAFLEX) 4 mg tablet Take 1 tablet by mouth three times a day as needed. - hydroCHLOROthiazide 25 mg tablet Take 1 tablet by mouth once daily. - ondansetron orally disintegrating (ZOFRAN ODT) 8 mg disintegrating tablet Take 1 tablet by mouth every 8 hours as needed for nausea/vomiting. - omeprazole (PRILOSEC) 40 mg capsule Take 1 capsule by mouth two times a day. - blood sugar diagnostic ([employer]UCH VERIO TEST STRIPS) test strip 1 Strip four times daily. Use as instructed - fluticasone-salmeterol HFA (ADVAIR HFA) 230-21 mcg/actuation inhaler Inhale 2 Puffs as instructed two times a day. - loratadine (CLARITIN) 10 mg tablet Take 1 tablet by mouth once daily. - CPAP/BIPAP/OTHER Type .CPAPSettings into a note to see current settings/supplies/DME information. Problem List As Of Date 01/20/2025 Noted Resolved Uncontrolled type 2 diabetes mellitus with hype*08/28/2022 Chronic midline low back pain with sciatica [M5*08/28/2022 Chronic obstructive lung disease (HCC) [J44.9] 10/18/2022 11/05/2022 Chronic obstructive pulmonary disease, unspecif*11/30/2021 Hyperlipidemia, unspecified [E78.5] 06/15/2021 Tobacco use [Z72.0] 11/05/[address] scan, kidney [R93.429] 11/05/2022 Dyspepsia [R10.13] 02/21/2023 Epigastric pain [R10.13] 02/21/2023 Right upper quadrant abdominal pain [R10.11] 02/21/2023 Chronic gastritis without bleeding [K29.50] 03/12/2023 Gastric wall thickening [K31.89] 03/12/2023 Primary hypertension [I10] 06/11/2023 Neuropathy [G62.9] 06/11/2023 Back pain with history of spinal surgery [M54.9*06/11/2023 FRANCISCO (obstructive sleep apnea) [G47.33] 06/11/2023 DM gastroparesis (HCC) [E11.43, K31.84] 07/04/2023 Abdominal bloating [R14.0] 10/13/2023 Obesity [E66.9] 10/13/2023 Diagnosed: 10/13/2023 Postlaminectomy syndrome of lumbar region [M96.*10/31/2022 Diagnosed: 10/13/2023 Sciatica [M54.30] 11/18/2022 Diagnosed: 10/13/2023 Fall at home, initial encounter [W19.XXXA, Y92.*11/26/2023 12/04/2023 Nicotine use disorder, F17.2 [F17.200] 11/28/2023 Osteoporosis [M81.0] 08/20/2024 Closed displaced comminuted fracture of shaft o*11/08/2024 Presence of right artificial hip joint [Z96.641]11/08/2024 Encounter Status:Closed by LAVERNE SHARMA on 01/20/25 PROGRESS Observed: 01/17/2025 10:00 AM Status: COMPLETED Source: [facility] HNO ID: [id number] Author: NAVI RODRÍGUEZ MD Service: ? Author Type: Physician Type: Progress Notes Filed: 01/17/2025 09:57 Note Text: CONSULT ORTHOPAEDIC: HIP PRIMARY CARE PHYSICIAN: Rissa Hanks MD REFERRING PROVIDER: Rissa Hanks [id number] [facility] [id number] ASSESSMENT AND PLAN This is a 59-year-old female presents with bilateral hip pain. Patient complains of pain in her right hip. She has a total hip replacement with a cemented femoral stem. Patient suffered a fall in November 2023 underwent left hip medullary nail fixation for subtrochanteric femur fracture. This was done in [facility]. This is complicated during procedure for perforation of the femur and had a lateral plate placement due to perforation of the nail. She has a long nail and lateral plate construct of the left femur. Patient had a fall in June 2024 and underwent a right hip replacement for this. Still has pain around the hip. She follows up today regarding both hips. Patient is an active smoker smokes 1 pack/day. Patient has a history of gastroparesis and COPD and type 2 diabetes. Her last hemoglobin A1c is 8.61-month ago. Impression: Right hip pain after total hip replacement done in outside hospital last year. Left hip pain after subtrochanteric femur fracture complicated by perforation with soft medullary nail construct with plate construct as well. Also done in outside hospital. - Patient has relatively been immobile and using a wheeled walker. She is bent over most the time when she is walking. She is very tender over her IT band out from her hip all the way down her knee and on the right side. Incisions are well-healed with no signs of infection x-rays show healed left substrate fracture and stable well-fixed right total hip replacement. I believe her IT band and bursitis is causing most of her pain on bilateral sides. Will start physical therapy emphasis on IT band stretching as well as abductor stretching and then also pain medication through pain management. Will also give her hinged knee brace for her left knee has been been bothering her she has arthritic changes in that she was well. Follow-up as needed Diagnoses: (T84.84XA) Painful orthopaedic hardware (primary encounter diagnosis) (Z96.641) History of right hip replacement (M25.551, M25.552) Bilateral hip pain (M70.60) Greater trochanteric bursitis, unspecified laterality Major Risk Factors Obesity normal High: BMI > 40 Moderate: BMI 30-40 Normal: BMI < 30 Diabetes High Risk High: A1C > 8 Moderate: A1C 7-8 Normal: A1C < 7 Hx of DVT / PE normal High: dx of DVT / PE Normal: no dx of DVT / PE Smoking High Risk High: Current smoker Normal: Non smoker Narcotics Use High Risk High:NarxCare >=300 Moderate: 100-299 Normal: 0-99 Depression High Risk High: PHQ-9 >14 Moderate: PHQ-9 5-14 Normal: PHQ-9 < 5 Area Deprivation Index (REGINA) Unknown Risk High: REGINA Score > 75 Moderate: REGINA 50-75 Normal: REGINA < 50 Diabetes: Nikkie has been diagnosed with Type 2 Diabetes. Her last Hemoglobin A1C was 8.6 - 11/22/2024. Pt is followed by Rissa Hanks for Type 2 Diabetes - last seen on 09/22/2024. Consult to the Endocrinology and Metabolic [place] (QUIN) recommended prior to surgery. Nikkie is a smoker. It is recommended that she receive a consult for smoking cessation and complete 30 days of no tobacco use prior to surgery. Area Deprivation Index (REGINA) 04/12/2022 01/15/2023 REGINA Score National Score 87 90 Patient Health Questionnaire (PHQ-9) 10/12/2024 10/29/2024 12/24/2024 PHQ-9 PHQ-2 Score 4 2 4 PHQ-9 Score 15 10 16 (0-4) minimal depression, (5-9) mild depression, (10-14) moderate depression, (15-19) moderately severe depression, (20-27) severe depression Bone Density Risk Screen Nikkie Buck is at risk for bone loss. Her last bone densitometry on file was completed on 11/24/2024. Risk Factors: Dx of Osteoporosis Use of Proton Pump Inhibitors History of falls Dx of Chronic Kidney Disease (CKD) History of Fracture (Vertebral Fracture) Current Smoker Prednisone or use of systemic steroids Additional Risk Factors COPD NarxCare score NARX Narcotics: 490 (01/17/2025 9:10 AM) Recommend a consult to Chronic Pain Management. Obstructive Sleep Apnea (FRANCISCO) Malnutrition: No Malnutrition Screening Tool (MST) score on file- please complete the MST screening tool (click here to open) and refresh the note. ACTIVE PROBLEM LIST Uncontrolled Type 2 Diabetes Mellitus With Hyperglycemia (Hcc) Chronic Midline Low Back Pain With Sciatica Chronic Obstructive Pulmonary Disease, Unspecified (Hcc) Hyperlipidemia, Unspecified Tobacco Use Abnormal CT Scan, Kidney Dyspepsia Epigastric Pain Right Upper Quadrant Abdominal Pain Chronic Gastritis Without Bleeding Gastric Wall Thickening Primary Hypertension Neuropathy Back Pain With History of Spinal Surgery Francisco (Obstructive Sleep Apnea) Dm Gastroparesis (Hcc) Abdominal Bloating Obesity Postlaminectomy Syndrome of Lumbar Region Sciatica Nicotine use disorder, F17.2 Osteoporosis Closed Displaced Comminuted Fracture of Shaft of Left Femur (Hcc) Presence of Right Artificial Hip Joint SUBJECTIVE CHIEF COMPLAINT: Hip Pain HPI: Nikkie Buck is a 59 year old patient with the presenting complaint of New and Pain of the Right Hip and New and Pain of the Left Hip. Nikkie Buck has had progressive problems with the hip(s) most of the day over the past 1 year(s) interfering with activities which include walking 2 blocks. The problem began limiting activities 1-3 years ago. Nikkie reports a current pain level of 9 . She describes the pain as Aching, Burning, Numbness, Sharp, Stabbing. The pain is Continuous . Interventions tried include Medication, Cold, Heat, Massage. PROMIS Physical Function Score Descriptive Summary for PROMIS Physical Function T-score = 31 (Percentile 3) Unable - Do 2 hours of physical labor Unable - Walk at a normal speed. 09/13/2022 10/12/2024 12/24/2024 PROMIS CAT Physical Function T-Score 29 (severe dysfunction) 29 (severe dysfunction) 31 (moderate dysfunction) Percentile 2 2 3 FUNCTIONAL STATUS: Do moderate work around the house such as vacuuming, sweeping floors, or carrying in groceries (3.50 METs) PREVIOUS TREATMENTS: Past anti-inflammatory medications (not necessarily for this reason for visit): dexamethasone sodium phosphate, diclofenac sodium, hydrocortisone sodium succ/PF, ketorolac tromethamine, methylprednisolone sod succ/PF Physical Therapy: PT Three Months or Greater 1-2 times per week REVIEW OF SYSTEMS: GENERAL: Denies fever, chills malaise and weight loss.. PAIN ASSESSMENT: See HPI. CARDIOVASCULAR: Denies chest pain, history of A-fib, valvular disease, hypertension, CHF or pacemaker/ICD.. RESPIRATORY: Denies SOB, sputum production, dyspnea, COPD and hemoptysis.. MUSCULOSKELETAL: See HPI. NEURO: Denies CVA, seizures, headaches.. ENDOCRINE: Denies diabetes, thyroid disease.. 11/26/2023 Malnutrition Screening Tool (MST) Lost Weight Recently Without Trying? If Yes, Amount of Weight Loss(lbs) 0:No Eating Poorly Because of a Decreased Appetite 0:No Weight Loss Score (Calculated) 0 Appetite Score (Calculated) 0 Total MST Score (Calculated) 0 PAST MEDICAL HISTORY Diagnosis Date Abdominal bloating 10/13/2023 Arthritis COPD (chronic obstructive pulmonary disease) (HCC) Diabetes (HCC) Hypertension Median arcuate ligament syndrome Sleep apnea PAST SURGICAL HISTORY Procedure Laterality Date ANKLE SURGERY HX Left BACK SURGERY HX Bilateral DELIVERY ONLY EGD W/O BRSH SPEC VARICIES INJ 02/21/2023 GI TRANSIT AND PRES SARAH WIRELESS CAPSULE W/INTERP 09/12/2023 Smart Pill, Dr. Vega PAST SURGICAL HISTORY OF N/A 12/03/2024 EGD/G Poem surgery REVISE MEDIAN N/CARPAL TUNNEL SURG Bilateral TOTAL HIP REPLACEMENT Right VAGINAL HYSTERECTOMY FAMILY HISTORY Problem Relation Age of Onset Hypertension Mother Lung Cancer Mother Cancer Father Lung Cancer Sister Diabetes Sister Stroke Sister Hypertension Paternal Grandmother Diabetes Maternal Uncle Diabetes Paternal Aunt Social History Tobacco Use Smoking status: Every Day Current packs/day: 1.00 Types: Cigarettes Smokeless tobacco: Never Tobacco comments: 3/4's of a pack daily Vaping Use Vaping status: Never Used Substance Use Topics Alcohol use: Never Drug use: Never ALLERGIES: Duloxetine, Nsaids (Non-Steroidal Anti-Inflammatory Drug), Penicillins, Pregabalin, Amlodipine, Celebrex [Celecoxib], Penicillin G, Ibuprofen, and Tylenol [Acetaminophen] MEDICATIONS: gabapentin (NEURONTIN) 800 mg tablet Take 1 tablet by mouth four times daily for 90 days. oxyCODONE IR (ROXICODONE) 10 mg tab Take 1 tablet by mouth three times a day as needed for pain for up to 7 days. Patient should start on January 10, 2025. albuterol HFA (PROVENTIL HFA, VENTOLIN HFA) 90 mcg/actuation inhaler Inhale 2 puffs as instructed every 4 hours as needed for wheezing/shortness of breath. insulin lispro (HUMALOG KWIKPEN) 100 unit/mL Inject 8 Units subcutaneously three times a day before meals. Taking as needed insulin glargine 100 unit/mL (3 mL) Inject 27 Units subcutaneously daily at bedtime. polyethylene glycol 3350 17 gram/dose powder Take 17 g by mouth once daily as needed for constipation. Cholecalciferol, Vitamin D3, 50 mcg (2,000 unit) cap Take 1 capsule by mouth once daily. Insulin Willow, Disposable, (BD ULTRA-FINE PADMINI PEN NEEDLE) 32 gauge x 5/32" 1 Each three times a day. empagliflozin (JARDIANCE) 10 mg tablet Take 1 tablet by mouth daily with breakfast. losartan (COZAAR) 100 mg tablet Take 1 tablet by mouth once daily. hydrALAZINE (APRESOLINE) 50 mg tablet Take 1 tablet by mouth four times daily. Hold if blood pressure is less than 110/60 tiZANidine (ZANAFLEX) 4 mg tablet Take 1 tablet by mouth three times a day as needed. hydroCHLOROthiazide 25 mg tablet Take 1 tablet by mouth once daily. ondansetron orally disintegrating (ZOFRAN ODT) 8 mg disintegrating tablet Take 1 tablet by mouth every 8 hours as needed for nausea/vomiting. omeprazole (PRILOSEC) 40 mg capsule Take 1 capsule by mouth two times a day. blood sugar diagnostic ([employer]UCH VERIO TEST STRIPS) test strip 1 Strip four times daily. Use as instructed fluticasone-salmeterol HFA (ADVAIR HFA) 230-21 mcg/actuation inhaler Inhale 2 Puffs as instructed two times a day. loratadine (CLARITIN) 10 mg tablet Take 1 tablet by mouth once daily. CPAP/BIPAP/OTHER Type .CPAPSettings into a note to see current settings/supplies/DME information. OBJECTIVE PHYSICAL EXAM There were no vitals taken for this visit. All other systems deferred. GENERAL: Appears healthy, well-nourished, no deformities. HABITUS: Thin GAIT: Antalgic to the right HIP EXAM: All incisions are well-healed in the left and right hip with no signs of infection. Left: ROM: Extension: full extension Flexion: 80 degrees Internal Rotation: 5 degrees External Rotation: 15 degrees Abduction: 20 degrees Adduction: 15 degrees Strength: Abduction 4/5 and Flexion 4/5 Palpation: Tenderness over left greater trochanter Log roll: non-painful. Straight leg raise: Negative Neurovascular Status: Sensation Intact, Moves foot and ankle up AND down, and 2+ dorsalis pedis Right: ROM: Extension: full extension Flexion: 80 degrees Internal Rotation: 5 degrees External Rotation: 15 degrees Abduction: 20 degrees Adduction: 15 degrees Strength: Abduction 4/5 and Flexion 4/5 Palpation: Tenderness over right greater trochanter and ITB Log roll: non-painful. Straight leg raise: Negative Neurovascular Status: Sensation Intact, Moves foot and ankle up AND down, and 2+ dorsalis pedis DATA: Most recent hip imaging was completed on 12/31/2024 (XR LEG FRONTAL HIP TO ANKLE MECHANICAL AXIS) , 12/31/2024 (XR HIP BILATERAL 5V PEL/AP/LAT EACH HIP) . Most recent upper leg imaging was completed on 12/31/2024 (XR LEG FRONTAL HIP TO ANKLE MECHANICAL AXIS) . Attached is imaging for the order. Diagnostic tests reviewed for today's visit: Left hip x-ray shows a soft medullary nail construct with a lateral plate construct with a healed subtrochanteric femur fracture. There is a little bit of a fracture that is still seen in the lateral cortex however this is healed off medially as well as anterior posterior and lateral. With regard to the right hip replacement is a cemented femoral stem with a cementless acetabular component. Appears to be no signs of loosening. The following conditions were addressed during the office visit today: Smoking - Cessation counseling was performed. We discussed the risks associated with smoking and Total Joint Arthroplasty. Smoking cessation consult will be completed to follow up on the plan of care. Diabetes - HgbA1C optimization - we discussed the importance of good glucose control for overall health and Total Joint Arthroplasty. SIGNATURE: Navi Rodríguez MD PATIENT NAME: Nikkie Buck DATE: January 17, 2025 TIME: 7:42 AM CNOV Observed: 01/17/2025 10:00 AM Status: COMPLETED Source: [facility] Office Visit (ORMDNA) NIKKIE BUCK ([id number]) 1965 F Date Time Provider Department 01/17/25 10:00 AM NAVI RODRÍGUEZ During your visit today, we recorded the following information about you: Navi Rodríguez MD 01/17/2025 9:57 AM Signed CONSULT ORTHOPAEDIC: HIP PRIMARY CARE PHYSICIAN: Rissa Hanks MD REFERRING PROVIDER: Rissa Lima0 [facility] [id number] ASSESSMENT AND PLAN This is a 59-year-old female presents with bilateral hip pain. Patient complains of pain in her right hip. She has a total hip replacement with a cemented femoral stem. Patient suffered a fall in November 2023 underwent left hip medullary nail fixation for subtrochanteric femur fracture. This was done in [facility]. This is complicated during procedure for perforation of the femur and had a lateral plate placement due to perforation of the nail. She has a long nail and lateral plate construct of the left femur. Patient had a fall in June 2024 and underwent a right hip replacement for this. Still has pain around the hip. She follows up today regarding both hips. Patient is an active smoker smokes 1 pack/day. Patient has a history of gastroparesis and COPD and type 2 diabetes. Her last hemoglobin A1c is 8.61-month ago. Impression: Right hip pain after total hip replacement done in outside hospital last year. Left hip pain after subtrochanteric femur fracture complicated by perforation with soft medullary nail construct with plate construct as well. Also done in outside hospital. - Patient has relatively been immobile and using a wheeled walker. She is bent over most the time when she is walking. She is very tender over her IT band out from her hip all the way down her knee and on the right side. Incisions are well-healed with no signs of infection x-rays show healed left substrate fracture and stable well-fixed right total hip replacement. I believe her IT band and bursitis is causing most of her pain on bilateral sides. Will start physical therapy emphasis on IT band stretching as well as abductor stretching and then also pain medication through pain management. Will also give her hinged knee brace for her left knee has been been bothering her she has arthritic changes in that she was well. Follow-up as needed Diagnoses: (T84.84XA) Painful orthopaedic hardware (primary encounter diagnosis) (Z96.641) History of right hip replacement (M25.551, M25.552) Bilateral hip pain (M70.60) Greater trochanteric bursitis, unspecified laterality Major Risk Factors Obesity normal High: BMI > 40 Moderate: BMI 30-40 Normal: BMI < 30 Diabetes High Risk High: A1C > 8 Moderate: A1C 7-8 Normal: A1C < 7 Hx of DVT / PE normal High: dx of DVT / PE Normal: no dx of DVT / PE Smoking High Risk High: Current smoker Normal: Non smoker Narcotics Use High Risk High:NarxCare >=300 Moderate: 100-299 Normal: 0-99 Depression High Risk High: PHQ-9 >14 Moderate: PHQ-9 5-14 Normal: PHQ-9 < 5 Area Deprivation Index (REGINA) Unknown Risk High: REGINA Score > 75 Moderate: REGINA 50-75 Normal: REGINA < 50 Diabetes: Nikkie has been diagnosed with Type 2 Diabetes. Her last Hemoglobin A1C was 8.6 - 11/22/2024. Pt is followed by Rissa Hanks for Type 2 Diabetes - last seen on 09/22/2024. Consult to the Endocrinology and Metabolic [place] (QUIN) recommended prior to surgery. Nikkie is a smoker. It is recommended that she receive a consult for smoking cessation and complete 30 days of no tobacco use prior to surgery. Area Deprivation Index (REGINA) 04/12/2022 01/15/2023 REGINA Score National Score 87 90 Patient Health Questionnaire (PHQ-9) 10/12/2024 10/29/2024 12/24/2024 PHQ-9 PHQ-2 Score 4 2 4 PHQ-9 Score 15 10 16 (0-4) minimal depression, (5-9) mild depression, (10-14) moderate depression, (15-19) moderately severe depression, (20-27) severe depression Bone Density Risk Screen Nikkie Buck is at risk for bone loss. Her last bone densitometry on file was completed on 11/24/2024. Risk Factors: Dx of Osteoporosis Use of Proton Pump Inhibitors History of falls Dx of Chronic Kidney Disease (CKD) History of Fracture (Vertebral Fracture) Current Smoker Prednisone or use of systemic steroids Additional Risk Factors COPD NarxCare score NARX Narcotics: 490 (01/17/2025 9:10 AM) Recommend a consult to Chronic Pain Management. Obstructive Sleep Apnea (FRANCISCO) Malnutrition: No Malnutrition Screening Tool (MST) score on file- please complete the MST screening tool (click here to open) and refresh the note. ACTIVE PROBLEM LIST Uncontrolled Type 2 Diabetes Mellitus With Hyperglycemia (Hcc) Chronic Midline Low Back Pain With Sciatica Chronic Obstructive Pulmonary Disease, Unspecified (Hcc) Hyperlipidemia, Unspecified Tobacco Use Abnormal CT Scan, Kidney Dyspepsia Epigastric Pain Right Upper Quadrant Abdominal Pain Chronic Gastritis Without Bleeding Gastric Wall Thickening Primary Hypertension Neuropathy Back Pain With History of Spinal Surgery Francisco (Obstructive Sleep Apnea) Dm Gastroparesis (Hcc) Abdominal Bloating Obesity Postlaminectomy Syndrome of Lumbar Region Sciatica Nicotine use disorder, F17.2 Osteoporosis Closed Displaced Comminuted Fracture of Shaft of Left Femur (Hcc) Presence of Right Artificial Hip Joint SUBJECTIVE CHIEF COMPLAINT: Hip Pain HPI: Nikkie Buck is a 59 year old patient with the presenting complaint of New and Pain of the Right Hip and New and Pain of the Left Hip. Nikkie Buck has had progressive problems with the hip(s) most of the day over the past 1 year(s) interfering with activities which include walking 2 blocks. The problem began limiting activities 1-3 years ago. Nikkie reports a current pain level of 9 . She describes the pain as Aching, Burning, Numbness, Sharp, Stabbing. The pain is Continuous . Interventions tried include Medication, Cold, Heat, Massage. PROMIS Physical Function Score Descriptive Summary for PROMIS Physical Function T-score = 31 (Percentile 3) Unable - Do 2 hours of physical labor Unable - Walk at a normal speed. 09/13/2022 10/12/2024 12/24/2024 PROMIS CAT Physical Function T-Score 29 (severe dysfunction) 29 (severe dysfunction) 31 (moderate dysfunction) Percentile 2 2 3 FUNCTIONAL STATUS: Do moderate work around the house such as vacuuming, sweeping floors, or carrying in groceries (3.50 METs) PREVIOUS TREATMENTS: Past anti-inflammatory medications (not necessarily for this reason for visit): dexamethasone sodium phosphate, diclofenac sodium, hydrocortisone sodium succ/PF, ketorolac tromethamine, methylprednisolone sod succ/PF Physical Therapy: PT Three Months or Greater 1-2 times per week REVIEW OF SYSTEMS: GENERAL: Denies fever, chills malaise and weight loss.. PAIN ASSESSMENT: See HPI. CARDIOVASCULAR: Denies chest pain, history of A-fib, valvular disease, hypertension, CHF or pacemaker/ICD.. RESPIRATORY: Denies SOB, sputum production, dyspnea, COPD and hemoptysis.. MUSCULOSKELETAL: See HPI. NEURO: Denies CVA, seizures, headaches.. ENDOCRINE: Denies diabetes, thyroid disease.. 11/26/2023 Malnutrition Screening Tool (MST) Lost Weight Recently Without Trying? If Yes, Amount of Weight Loss(lbs) 0:No Eating Poorly Because of a Decreased Appetite 0:No Weight Loss Score (Calculated) 0 Appetite Score (Calculated) 0 Total MST Score (Calculated) 0 PAST MEDICAL HISTORY Diagnosis Date Abdominal bloating 10/13/2023 Arthritis COPD (chronic obstructive pulmonary disease) (HCC) Diabetes (HCC) Hypertension Median arcuate ligament syndrome Sleep apnea PAST SURGICAL HISTORY Procedure Laterality Date ANKLE SURGERY HX Left BACK SURGERY HX Bilateral DELIVERY ONLY EGD W/O BRSH SPEC VARICIES INJ 02/21/2023 GI TRANSIT AND PRES SARAH WIRELESS CAPSULE W/INTERP 09/12/2023 Smart Pill, Dr. Vega PAST SURGICAL HISTORY OF N/A 12/03/2024 EGD/G Poem surgery REVISE MEDIAN N/CARPAL TUNNEL SURG Bilateral TOTAL HIP REPLACEMENT Right VAGINAL HYSTERECTOMY FAMILY HISTORY Problem Relation Age of Onset Hypertension Mother Lung Cancer Mother Cancer Father Lung Cancer Sister Diabetes Sister Stroke Sister Hypertension Paternal Grandmother Diabetes Maternal Uncle Diabetes Paternal Aunt Social History Tobacco Use Smoking status: Every Day Current packs/day: 1.00 Types: Cigarettes Smokeless tobacco: Never Tobacco comments: 3/4's of a pack daily Vaping Use Vaping status: Never Used Substance Use Topics Alcohol use: Never Drug use: Never ALLERGIES: Duloxetine, Nsaids (Non-Steroidal Anti-Inflammatory Drug), Penicillins, Pregabalin, Amlodipine, Celebrex [Celecoxib], Penicillin G, Ibuprofen, and Tylenol [Acetaminophen] MEDICATIONS: gabapentin (NEURONTIN) 800 mg tablet Take 1 tablet by mouth four times daily for 90 days. oxyCODONE IR (ROXICODONE) 10 mg tab Take 1 tablet by mouth three times a day as needed for pain for up to 7 days. Patient should start on January 10, 2025. albuterol HFA (PROVENTIL HFA, VENTOLIN HFA) 90 mcg/actuation inhaler Inhale 2 puffs as instructed every 4 hours as needed for wheezing/shortness of breath. insulin lispro (HUMALOG KWIKPEN) 100 unit/mL Inject 8 Units subcutaneously three times a day before meals. Taking as needed insulin glargine 100 unit/mL (3 mL) Inject 27 Units subcutaneously daily at bedtime. polyethylene glycol 3350 17 gram/dose powder Take 17 g by mouth once daily as needed for constipation. Cholecalciferol, Vitamin D3, 50 mcg (2,000 unit) cap Take 1 capsule by mouth once daily. Insulin Willow, Disposable, (BD ULTRA-FINE PADMINI PEN NEEDLE) 32 gauge x 5/32" 1 Each three times a day. empagliflozin (JARDIANCE) 10 mg tablet Take 1 tablet by mouth daily with breakfast. losartan (COZAAR) 100 mg tablet Take 1 tablet by mouth once daily. hydrALAZINE (APRESOLINE) 50 mg tablet Take 1 tablet by mouth four times daily. Hold if blood pressure is less than 110/60 tiZANidine (ZANAFLEX) 4 mg tablet Take 1 tablet by mouth three times a day as needed. hydroCHLOROthiazide 25 mg tablet Take 1 tablet by mouth once daily. ondansetron orally disintegrating (ZOFRAN ODT) 8 mg disintegrating tablet Take 1 tablet by mouth every 8 hours as needed for nausea/vomiting. omeprazole (PRILOSEC) 40 mg capsule Take 1 capsule by mouth two times a day. blood sugar diagnostic ([employer] VERIO TEST STRIPS) test strip 1 Strip four times daily. Use as instructed fluticasone-salmeterol HFA (ADVAIR HFA) 230-21 mcg/actuation inhaler Inhale 2 Puffs as instructed two times a day. loratadine (CLARITIN) 10 mg tablet Take 1 tablet by mouth once daily. CPAP/BIPAP/OTHER Type .CPAPSettings into a note to see current settings/supplies/DME information. OBJECTIVE PHYSICAL EXAM There were no vitals taken for this visit. All other systems deferred. GENERAL: Appears healthy, well-nourished, no deformities. HABITUS: Thin GAIT: Antalgic to the right HIP EXAM: All incisions are well-healed in the left and right hip with no signs of infection. Left: ROM: Extension: full extension Flexion: 80 degrees Internal Rotation: 5 degrees External Rotation: 15 degrees Abduction: 20 degrees Adduction: 15 degrees Strength: Abduction 4/5 and Flexion 4/5 Palpation: Tenderness over left greater trochanter Log roll: non-painful. Straight leg raise: Negative Neurovascular Status: Sensation Intact, Moves foot and ankle up AND down, and 2+ dorsalis pedis Right: ROM: Extension: full extension Flexion: 80 degrees Internal Rotation: 5 degrees External Rotation: 15 degrees Abduction: 20 degrees Adduction: 15 degrees Strength: Abduction 4/5 and Flexion 4/5 Palpation: Tenderness over right greater trochanter and ITB Log roll: non-painful. Straight leg raise: Negative Neurovascular Status: Sensation Intact, Moves foot and ankle up AND down, and 2+ dorsalis pedis DATA: Most recent hip imaging was completed on 12/31/2024 (XR LEG FRONTAL HIP TO ANKLE MECHANICAL AXIS) , 12/31/2024 (XR HIP BILATERAL 5V PEL/AP/LAT EACH HIP) . Most recent upper leg imaging was completed on 12/31/2024 (XR LEG FRONTAL HIP TO ANKLE MECHANICAL AXIS) . Attached is imaging for the order. Diagnostic tests reviewed for today's visit: Left hip x-ray shows a soft medullary nail construct with a lateral plate construct with a healed subtrochanteric femur fracture. There is a little bit of a fracture that is still seen in the lateral cortex however this is healed off medially as well as anterior posterior and lateral. With regard to the right hip replacement is a cemented femoral stem with a cementless acetabular component. Appears to be no signs of loosening. The following conditions were addressed during the office visit today: Smoking - Cessation counseling was performed. We discussed the risks associated with smoking and Total Joint Arthroplasty. Smoking cessation consult will be completed to follow up on the plan of care. Diabetes - HgbA1C optimization - we discussed the importance of good glucose control for overall health and Total Joint Arthroplasty. SIGNATURE: Navi Rodríguez MD PATIENT NAME: Nikkie Buck DATE: January 17, 2025 TIME: 7:42 AM Referring Provider: RISSA HANKS [[id number]] Allergies As of Date: 01/17/2025 Noted Allergy Reaction DULOXETINE 06/15/2021 7 - Swelling 14 - Other: See Comments Comments: Other reaction(s): swelling Other reaction(s): Unknown Other reaction(s): swelling NSAIDS (NON-STEROIDAL ANTI-INFLAM*08/15/2020 8 - GI Upset Comments: Other reaction(s): GI Upset Other reaction(s): cramping, GI Upset, Other (See Comments), Upset Stomach Severe stomach pain Other reaction(s): GI Upset PENICILLINS 08/15/2020 2 - Rash 14 - Other: See Comments Comments: Other reaction(s): GI Upset, hives, horrible taste in mouth Other reaction(s): GI Upset, GI Upset, horrible taste in mouth, leaves a bad taste in her mouth., NEEDS FOLLOW-UP Other reaction(s): GI Upset, hives, horrible taste in mouth PREGABALIN 08/15/2020 7 - Swelling 14 - Other: See Comments 16 - Unknown Comments: Other reaction(s): swelling, Swelling Other reaction(s): Swelling, Unknown Other reaction(s): swelling, Swelling AMLODIPINE 06/22/2024 5 - Intolerance Comments: leg swelling at 10 mg CELEBREX (CELECOXIB) 08/09/2024 5 - Intolerance Comments: feet and leg swelling PENICILLIN G 11/11/2021 8 - GI Upset IBUPROFEN 11/11/2021 8 - GI Upset Comments: Vomiting cramping TYLENOL (ACETAMINOPHEN) 10/27/2022 8 - GI Upset Date Reviewed: 01/17/2025 Reviewed by: Abhinav Glynn MA - Fully Assessed Reason for Visit: New [[id number]] Pain [78] New [[id number]] Pain [78] Primary Visit Diagnosis:Painful orthopaedic hardware [T84.84XA] Other Visit Diagnoses:History of right hip replacement [Z96.641] Bilateral hip pain [M25.551, M25.552] Greater trochanteric bursitis, unspecified laterality [M70.60] Order(s):CONSULT TO PHYSICAL THERAPY [6645] Order #: [id number]: 1 FUTURE Prescriptions as of 01/17/2025 - gabapentin (NEURONTIN) 800 mg tablet Take 1 tablet by mouth four times daily for 90 days. - oxyCODONE IR (ROXICODONE) 10 mg tab Take 1 tablet by mouth three times a day as needed for pain for up to 7 days. Patient should start on January 10, 2025. - albuterol HFA (PROVENTIL HFA, VENTOLIN HFA) 90 mcg/actuation inhaler Inhale 2 puffs as instructed every 4 hours as needed for wheezing/shortness of breath. - insulin lispro (HUMALOG KWIKPEN) 100 unit/mL Inject 8 Units subcutaneously three times a day before meals. Taking as needed - insulin glargine 100 unit/mL (3 mL) Inject 27 Units subcutaneously daily at bedtime. - polyethylene glycol 3350 17 gram/dose powder Take 17 g by mouth once daily as needed for constipation. - Cholecalciferol, Vitamin D3, 50 mcg (2,000 unit) cap Take 1 capsule by mouth once daily. - Insulin Willow, Disposable, (BD ULTRA-FINE PADMINI PEN NEEDLE) 32 gauge x 5/32" 1 Each three times a day. - empagliflozin (JARDIANCE) 10 mg tablet Take 1 tablet by mouth daily with breakfast. - losartan (COZAAR) 100 mg tablet Take 1 tablet by mouth once daily. - hydrALAZINE (APRESOLINE) 50 mg tablet Take 1 tablet by mouth four times daily. Hold if blood pressure is less than 110/60 - tiZANidine (ZANAFLEX) 4 mg tablet Take 1 tablet by mouth three times a day as needed. - hydroCHLOROthiazide 25 mg tablet Take 1 tablet by mouth once daily. - ondansetron orally disintegrating (ZOFRAN ODT) 8 mg disintegrating tablet Take 1 tablet by mouth every 8 hours as needed for nausea/vomiting. - omeprazole (PRILOSEC) 40 mg capsule Take 1 capsule by mouth two times a day. - blood sugar diagnostic ([employer]UCH VERIO TEST STRIPS) test strip 1 Strip four times daily. Use as instructed - fluticasone-salmeterol HFA (ADVAIR HFA) 230-21 mcg/actuation inhaler Inhale 2 Puffs as instructed two times a day. - loratadine (CLARITIN) 10 mg tablet Take 1 tablet by mouth once daily. - CPAP/BIPAP/OTHER Type .CPAPSettings into a note to see current settings/supplies/DME information. Problem List As Of Date 01/17/2025 Noted Resolved Uncontrolled type 2 diabetes mellitus with hype*08/28/2022 Chronic midline low back pain with sciatica [M5*08/28/2022 Chronic obstructive lung disease (HCC) [J44.9] 10/18/2022 11/05/2022 Chronic obstructive pulmonary disease, unspecif*11/30/2021 Hyperlipidemia, unspecified [E78.5] 06/15/2021 Tobacco use [Z72.0] 11/05/[address] scan, kidney [R93.429] 11/05/2022 Dyspepsia [R10.13] 02/21/2023 Epigastric pain [R10.13] 02/21/2023 Right upper quadrant abdominal pain [R10.11] 02/21/2023 Chronic gastritis without bleeding [K29.50] 03/12/2023 Gastric wall thickening [K31.89] 03/12/2023 Primary hypertension [I10] 06/11/2023 Neuropathy [G62.9] 06/11/2023 Back pain with history of spinal surgery [M54.9*06/11/2023 FRANCISCO (obstructive sleep apnea) [G47.33] 06/11/2023 DM gastroparesis (HCC) [E11.43, K31.84] 07/04/2023 Abdominal bloating [R14.0] 10/13/2023 Obesity [E66.9] 10/13/2023 Diagnosed: 10/13/2023 Postlaminectomy syndrome of lumbar region [M96.*10/31/2022 Diagnosed: 10/13/2023 Sciatica [M54.30] 11/18/2022 Diagnosed: 10/13/2023 Fall at home, initial encounter [W19.XXXA, Y92.*11/26/2023 12/04/2023 Nicotine use disorder, F17.2 [F17.200] 11/28/2023 Osteoporosis [M81.0] 08/20/2024 Closed displaced comminuted fracture of shaft o*11/08/2024 Presence of right artificial hip joint [Z96.641]11/08/2024 Level of Service: OFFICE/OUTPATIENT ESTABLISHED MOD MDM 30 MIN [85423] Encounter Status:Closed by NAVI RODRÍGUEZ on 01/17/25 PROGRESS Observed: 12/31/2024 2:29 PM Status: COMPLETED Source: [facility] HNO ID: [id number] Author: RISSA HANKS MD Service: ? Author Type: Physician Type: Progress Notes Filed: 01/24/2025 01:05 Note Text: This note was created using NoteWriter. Subjective Nikkie Buck is a 59 year old female. Patient presents with: F/U 3 Month SUBJECTIVE: Nikkie Buck is a 59 year old year old lady here today for 3 month follow up appointment for review of medical conditions. Nikkie is a 59-year-old female with a history of chronic pain, presenting for a medication refill and dosage adjustment. Nikkie reports that she was unable to attend her recent pain management and orthopedic surgery appointments due to a delay in Medicaid transportation, which resulted in her being over 30 minutes late and subsequently not seen. She has rescheduled the appointments for January 17 and is requesting an extension of her pain medication until then. She is currently taking morphine 5 mg four times daily and is requesting an increase to 10 mg three to four times daily due to inadequate pain control. She denies experiencing constipation or feeling "loopy" from the current dosage. She reports significant weakness in her legs, limiting her ability to walk more than 50 feet. She also mentions chronic pressure in her abdominal area, which worsens after eating. She denies experiencing bloating, heartburn, or an upset stomach. She uses MiraLAX twice daily to manage constipation, which she attributes to her pain medication. PAST MEDICAL HISTORY Diagnosis Date Abdominal bloating 10/13/2023 Arthritis COPD (chronic obstructive pulmonary disease) ([facility]) Diabetes (HCC) Hypertension Median arcuate ligament syndrome Sleep apnea Current Outpatient Medications Medication Sig oxyCODONE IR (ROXICODONE) 5 mg immediate release tablet Take 1 tablet by mouth four times a day as needed for pain for up to 7 days. albuterol HFA (PROVENTIL HFA, VENTOLIN HFA) 90 mcg/actuation inhaler Inhale 2 puffs as instructed every 4 hours as needed for wheezing/shortness of breath. insulin lispro (HUMALOG KWIKPEN) 100 unit/mL Inject 8 Units subcutaneously three times a day before meals. Taking as needed insulin glargine 100 unit/mL (3 mL) Inject 27 Units subcutaneously daily at bedtime. polyethylene glycol 3350 17 gram/dose powder Take 17 g by mouth once daily as needed for constipation. Cholecalciferol, Vitamin D3, 50 mcg (2,000 unit) cap Take 1 capsule by mouth once daily. Insulin Willow, Disposable, (BD ULTRA-FINE PADMINI PEN NEEDLE) 32 gauge x 5/32" 1 Each three times a day. hydrALAZINE (APRESOLINE) 50 mg tablet Take 1 tablet by mouth four times daily. Hold if blood pressure is less than 110/60 gabapentin (NEURONTIN) 800 mg tablet Take 1 tablet by mouth four times daily for 90 days. tiZANidine (ZANAFLEX) 4 mg tablet Take 1 tablet by mouth three times a day as needed. hydroCHLOROthiazide 25 mg tablet Take 1 tablet by mouth once daily. ondansetron orally disintegrating (ZOFRAN ODT) 8 mg disintegrating tablet Take 1 tablet by mouth every 8 hours as needed for nausea/vomiting. omeprazole (PRILOSEC) 40 mg capsule Take 1 capsule by mouth two times a day. fluticasone-salmeterol HFA (ADVAIR HFA) 230-21 mcg/actuation inhaler Inhale 2 Puffs as instructed two times a day. loratadine (CLARITIN) 10 mg tablet Take 1 tablet by mouth once daily. empagliflozin (JARDIANCE) 10 mg tablet Take 1 tablet by mouth daily with breakfast. losartan (COZAAR) 100 mg tablet Take 1 tablet by mouth once daily. blood sugar diagnostic ([employer] VERIO TEST STRIPS) test strip 1 Strip four times daily. Use as instructed CPAP/BIPAP/OTHER Type .CPAPSettings into a note to see current settings/supplies/DME information. No current facility-administered medications for this visit. Review of Systems Objective BP 126/72 (BP Site: Left Arm, BP Position: Sitting, BP Cuff Size: Regular Adult) Pulse 72 Resp 18 Wt 67.1 kg (147 lb 14.9 oz) BMI 28.89 kg/m? Physical Exam Constitutional: Appearance: Normal appearance. HENT: Head: Normocephalic. Eyes: Conjunctiva/sclera: Conjunctivae normal. Cardiovascular: Rate and Rhythm: Normal rate and regular rhythm. Heart sounds: Normal heart sounds. Pulmonary: Effort: Pulmonary effort is normal. Breath sounds: Normal breath sounds. Skin: General: Skin is warm and dry. Neurological: General: No focal deficit present. Mental Status: She is alert and oriented to person, place, and time. Psychiatric: Mood and Affect: Mood normal. Behavior: Behavior normal. Thought Content: Thought content normal. Judgment: Judgment normal. Assessment and Plan # RUQ pain (R10.11) - Experiencing constant pressure in the RUQ, exacerbated by eating. - Discussed potential causes including gas, food, or colonic issues. - Recommended simethicone (Gas-X) with meals to reduce gas and pressure. - Advised eating smaller amounts of food at a time. - If symptoms persist, consider referral to gastroenterology for further evaluation, including possible endoscopy. # Closed displaced comminuted fracture of shaft of left femur, sequela (S72.352S) # S/P right hip fracture (Z87.81) # Presence of right artificial hip joint (Z96.641) # Drug-induced constipation (K59.03) - Likely secondary to opioid use. - Currently using MiraLAX once daily; advised to increase to twice daily if needed to prevent hard stools and maintain regular bowel movements. # Other chronic postprocedural pain (G89.28) - Chronic pain management ongoing; recent missed appointments with pain management and orthopedic surgery due to transportation issues. - Next appointment with Dr. Rodríguez scheduled for January 17. - Increased morphine dosage to 10 mg PO TID; prescription sent to pharmacy with instructions for intentional dose change. - Monitor for side effects such as constipation and sedation; follow-up by mid-next week to assess efficacy and tolerability of new dosage. Rissa Hanks MD Recording using Sarenza software for draft documentation of the visit was discussed with the patient/authorized hospital insurance representative; all questions welcomed and answered. Patient/authorized hospital insurance representative agreed to proceed CNOV Observed: 12/31/2024 1:40 PM Status: COMPLETED Source: [facility] Office Visit (INTMWS) NIKKIE BUCK ([id number]) 1965 F Date Time Provider Department 12/31/24 1:40 PM RISSA HANKS INTMWS During your visit today, we recorded the following information about you: Pulse Respiration Blood pressure Weight 72/minute 18/minute 126/72 67.1 kg Rissa Hanks MD 01/24/2025 1:05 AM Signed This note was created using AirXPriter. Subjective Nikkie Buck is a 59 year old female. Patient presents with: F/U 3 Month SUBJECTIVE: Nikkie Buck is a 59 year old year old lady here today for 3 month follow up appointment for review of medical conditions. Nikkie is a 59-year-old female with a history of chronic pain, presenting for a medication refill and dosage adjustment. Nikkie reports that she was unable to attend her recent pain management and orthopedic surgery appointments due to a delay in Medicaid transportation, which resulted in her being over 30 minutes late and subsequently not seen. She has rescheduled the appointments for January 17 and is requesting an extension of her pain medication until then. She is currently taking morphine 5 mg four times daily and is requesting an increase to 10 mg three to four times daily due to inadequate pain control. She denies experiencing constipation or feeling "loopy" from the current dosage. She reports significant weakness in her legs, limiting her ability to walk more than 50 feet. She also mentions chronic pressure in her abdominal area, which worsens after eating. She denies experiencing bloating, heartburn, or an upset stomach. She uses MiraLAX twice daily to manage constipation, which she attributes to her pain medication. PAST MEDICAL HISTORY Diagnosis Date Abdominal bloating 10/13/2023 Arthritis COPD (chronic obstructive pulmonary disease) ([facility]) Diabetes ([facility]) Hypertension Median arcuate ligament syndrome Sleep apnea Current Outpatient Medications Medication Sig oxyCODONE IR (ROXICODONE) 5 mg immediate release tablet Take 1 tablet by mouth four times a day as needed for pain for up to 7 days. albuterol HFA (PROVENTIL HFA, VENTOLIN HFA) 90 mcg/actuation inhaler Inhale 2 puffs as instructed every 4 hours as needed for wheezing/shortness of breath. insulin lispro (HUMALOG KWIKPEN) 100 unit/mL Inject 8 Units subcutaneously three times a day before meals. Taking as needed insulin glargine 100 unit/mL (3 mL) Inject 27 Units subcutaneously daily at bedtime. polyethylene glycol 3350 17 gram/dose powder Take 17 g by mouth once daily as needed for constipation. Cholecalciferol, Vitamin D3, 50 mcg (2,000 unit) cap Take 1 capsule by mouth once daily. Insulin Willow, Disposable, (BD ULTRA-FINE PADMINI PEN NEEDLE) 32 gauge x 5/32" 1 Each three times a day. hydrALAZINE (APRESOLINE) 50 mg tablet Take 1 tablet by mouth four times daily. Hold if blood pressure is less than 110/60 gabapentin (NEURONTIN) 800 mg tablet Take 1 tablet by mouth four times daily for 90 days. tiZANidine (ZANAFLEX) 4 mg tablet Take 1 tablet by mouth three times a day as needed. hydroCHLOROthiazide 25 mg tablet Take 1 tablet by mouth once daily. ondansetron orally disintegrating (ZOFRAN ODT) 8 mg disintegrating tablet Take 1 tablet by mouth every 8 hours as needed for nausea/vomiting. omeprazole (PRILOSEC) 40 mg capsule Take 1 capsule by mouth two times a day. fluticasone-salmeterol HFA (ADVAIR HFA) 230-21 mcg/actuation inhaler Inhale 2 Puffs as instructed two times a day. loratadine (CLARITIN) 10 mg tablet Take 1 tablet by mouth once daily. empagliflozin (JARDIANCE) 10 mg tablet Take 1 tablet by mouth daily with breakfast. losartan (COZAAR) 100 mg tablet Take 1 tablet by mouth once daily. blood sugar diagnostic ([employer]UCH VERIO TEST STRIPS) test strip 1 Strip four times daily. Use as instructed CPAP/BIPAP/OTHER Type .CPAPSettings into a note to see current settings/supplies/DME information. No current facility-administered medications for this visit. Review of Systems Objective BP 126/72 (BP Site: Left Arm, BP Position: Sitting, BP Cuff Size: Regular Adult) Pulse 72 Resp 18 Wt 67.1 kg (147 lb 14.9 oz) BMI 28.89 kg/m? Physical Exam Constitutional: Appearance: Normal appearance. HENT: Head: Normocephalic. Eyes: Conjunctiva/sclera: Conjunctivae normal. Cardiovascular: Rate and Rhythm: Normal rate and regular rhythm. Heart sounds: Normal heart sounds. Pulmonary: Effort: Pulmonary effort is normal. Breath sounds: Normal breath sounds. Skin: General: Skin is warm and dry. Neurological: General: No focal deficit present. Mental Status: She is alert and oriented to person, place, and time. Psychiatric: Mood and Affect: Mood normal. Behavior: Behavior normal. Thought Content: Thought content normal. Judgment: Judgment normal. Assessment and Plan # RUQ pain (R10.11) - Experiencing constant pressure in the RUQ, exacerbated by eating. - Discussed potential causes including gas, food, or colonic issues. - Recommended simethicone (Gas-X) with meals to reduce gas and pressure. - Advised eating smaller amounts of food at a time. - If symptoms persist, consider referral to gastroenterology for further evaluation, including possible endoscopy. # Closed displaced comminuted fracture of shaft of left femur, sequela (S72.352S) # S/P right hip fracture (Z87.81) # Presence of right artificial hip joint (Z96.641) # Drug-induced constipation (K59.03) - Likely secondary to opioid use. - Currently using MiraLAX once daily; advised to increase to twice daily if needed to prevent hard stools and maintain regular bowel movements. # Other chronic postprocedural pain (G89.28) - Chronic pain management ongoing; recent missed appointments with pain management and orthopedic surgery due to transportation issues. - Next appointment with Dr. Rodríguez scheduled for January 17. - Increased morphine dosage to 10 mg PO TID; prescription sent to pharmacy with instructions for intentional dose change. - Monitor for side effects such as constipation and sedation; follow-up by mid-next week to assess efficacy and tolerability of new dosage. Rissa Hanks MD Recording using Sarenza software for draft documentation of the visit was discussed with the patient/authorized hospital insurance representative; all questions welcomed and answered. Patient/authorized hospital insurance representative agreed to proceed Allergies As of Date: 12/31/2024 Noted Allergy Reaction DULOXETINE 06/15/2021 7 - Swelling 14 - Other: See Comments Comments: Other reaction(s): swelling Other reaction(s): Unknown Other reaction(s): swelling NSAIDS (NON-STEROIDAL ANTI-INFLAM*08/15/2020 8 - GI Upset Comments: Other reaction(s): GI Upset Other reaction(s): cramping, GI Upset, Other (See Comments), Upset Stomach Severe stomach pain Other reaction(s): GI Upset PENICILLINS 08/15/2020 2 - Rash 14 - Other: See Comments Comments: Other reaction(s): GI Upset, hives, horrible taste in mouth Other reaction(s): GI Upset, GI Upset, horrible taste in mouth, leaves a bad taste in her mouth., NEEDS FOLLOW-UP Other reaction(s): GI Upset, hives, horrible taste in mouth PREGABALIN 08/15/2020 7 - Swelling 14 - Other: See Comments 16 - Unknown Comments: Other reaction(s): swelling, Swelling Other reaction(s): Swelling, Unknown Other reaction(s): swelling, Swelling AMLODIPINE 06/22/2024 5 - Intolerance Comments: leg swelling at 10 mg CELEBREX (CELECOXIB) 08/09/2024 5 - Intolerance Comments: feet and leg swelling PENICILLIN G 11/11/2021 8 - GI Upset IBUPROFEN 11/11/2021 8 - GI Upset Comments: Vomiting cramping TYLENOL (ACETAMINOPHEN) 10/27/2022 8 - GI Upset Date Reviewed: 12/31/2024 Reviewed by: Arianna Kirkland MA - Fully Assessed Reason for Visit: F/U 3 Month [443] Primary Visit Diagnosis:RUQ pain [R10.11] Other Visit Diagnoses:Closed displaced comminuted fracture of shaft of left femur, sequela [S72.352S] Drug-induced constipation [K59.03] Other chronic postprocedural pain [G89.28] S/P right hip fracture [Z87.81] Presence of right artificial hip joint [Z96.641] Prescriptions as of 01/24/2025 - oxyCODONE IR (ROXICODONE) 10 mg tab Take 1 tablet by mouth three times a day as needed for pain for up to 7 days. - gabapentin (NEURONTIN) 800 mg tablet Take 1 tablet by mouth four times daily for 90 days. - albuterol HFA (PROVENTIL HFA, VENTOLIN HFA) 90 mcg/actuation inhaler Inhale 2 puffs as instructed every 4 hours as needed for wheezing/shortness of breath. - insulin lispro (HUMALOG KWIKPEN) 100 unit/mL Inject 8 Units subcutaneously three times a day before meals. Taking as needed - insulin glargine 100 unit/mL (3 mL) Inject 27 Units subcutaneously daily at bedtime. - polyethylene glycol 3350 17 gram/dose powder Take 17 g by mouth once daily as needed for constipation. - Cholecalciferol, Vitamin D3, 50 mcg (2,000 unit) cap Take 1 capsule by mouth once daily. - Insulin Willow, Disposable, (BD ULTRA-FINE PADMINI PEN NEEDLE) 32 gauge x 5/32" 1 Each three times a day. - empagliflozin (JARDIANCE) 10 mg tablet Take 1 tablet by mouth daily with breakfast. - losartan (COZAAR) 100 mg tablet Take 1 tablet by mouth once daily. - hydrALAZINE (APRESOLINE) 50 mg tablet Take 1 tablet by mouth four times daily. Hold if blood pressure is less than 110/60 - tiZANidine (ZANAFLEX) 4 mg tablet Take 1 tablet by mouth three times a day as needed. - hydroCHLOROthiazide 25 mg tablet Take 1 tablet by mouth once daily. - ondansetron orally disintegrating (ZOFRAN ODT) 8 mg disintegrating tablet Take 1 tablet by mouth every 8 hours as needed for nausea/vomiting. - omeprazole (PRILOSEC) 40 mg capsule Take 1 capsule by mouth two times a day. - blood sugar diagnostic ([employer]UCH VERIO TEST STRIPS) test strip 1 Strip four times daily. Use as instructed - fluticasone-salmeterol HFA (ADVAIR HFA) 230-21 mcg/actuation inhaler Inhale 2 Puffs as instructed two times a day. - loratadine (CLARITIN) 10 mg tablet Take 1 tablet by mouth once daily. - CPAP/BIPAP/OTHER Type .CPAPSettings into a note to see current settings/supplies/DME information. Medication notes this encounter CPAP/BIPAP/OTHER >> Arianna Kirkland MA 12/31/2024 1:48 PM >> ARIANNA KIRKLAND FriDec 31, 2024 1:48 PM Not using per patient. December 31, 2024 Arianna Kirkland MA Problem List As Of Date 12/31/2024 Noted Resolved Uncontrolled type 2 diabetes mellitus with hype*08/28/2022 Chronic midline low back pain with sciatica [M5*08/28/2022 Chronic obstructive lung disease (HCC) [J44.9] 10/18/2022 11/05/2022 Chronic obstructive pulmonary disease, unspecif*11/30/2021 Hyperlipidemia, unspecified [E78.5] 06/15/2021 Tobacco use [Z72.0] 11/05/[address] scan, kidney [R93.429] 11/05/2022 Dyspepsia [R10.13] 02/21/2023 Epigastric pain [R10.13] 02/21/2023 Right upper quadrant abdominal pain [R10.11] 02/21/2023 Chronic gastritis without bleeding [K29.50] 03/12/2023 Gastric wall thickening [K31.89] 03/12/2023 Primary hypertension [I10] 06/11/2023 Neuropathy [G62.9] 06/11/2023 Back pain with history of spinal surgery [M54.9*06/11/2023 FRANCISCO (obstructive sleep apnea) [G47.33] 06/11/2023 DM gastroparesis (HCC) [E11.43, K31.84] 07/04/2023 Abdominal bloating [R14.0] 10/13/2023 Obesity [E66.9] 10/13/2023 Diagnosed: 10/13/2023 Postlaminectomy syndrome of lumbar region [M96.*10/31/2022 Diagnosed: 10/13/2023 Sciatica [M54.30] 11/18/2022 Diagnosed: 10/13/2023 Fall at home, initial encounter [W19.XXXA, Y92.*11/26/2023 12/04/2023 Nicotine use disorder, F17.2 [F17.200] 11/28/2023 Osteoporosis [M81.0] 08/20/2024 Closed displaced comminuted fracture of shaft o*11/08/2024 Presence of right artificial hip joint [Z96.641]11/08/2024 Prescriptions ordered this encounter Disp Refills Start End OXYCODONE 10 MG TABLET 21 t* 0 01/03/2025 01/07/2025 Cmt: Intentional dose change Route: ORAL Sig: Take 1 tablet by mouth three times a day as needed for pain for up to 7 days. Patient should start on January 03, 2025. Medications Discontinued During This Encounter Prescriptions - Blood-Glucose Meter,Continuous (DEXCOM G6 HR COORDINATOR) misc (Discontinued) 1 Each once daily. - Blood-Glucose Sensor (DEXCOM G6 SENSOR) jaguar (Discontinued) 3 Each every 10 days. - Blood-Glucose Transmitter (DEXCOM G6 TRANSMITTER) jaguar (Discontinued) 1 Each once daily. Level of Service: OFFICE/OUTPATIENT ESTABLISHED MOD MDM 30 MIN [61833] Additional E/M codes: VISIT CPLX INHERENT EANDM ASSOC WITH MED * Disposition: Return in about 3 months (around 04/01/2025) for 3 months follow up (make next 2 appointments). Follow-up and Disposition History for Encounter Date Provider Department Center 12/31/2024 [id number] HANKS [facility] Encounter Status:Closed by RISSA HANKS on 01/24/25 XR LEG FRONTL HIP-ANKL MECH AXIS Observed: 12/29/2024 11:19 AM Status: F Source: [facility] * * *Final Report* * * DATE OF EXAM: Dec 29 2024 11:19AM SOURAV [id number] - XR LEG FRONTL HIP-ANKL MECH AXIS / PROCEDURE REASON: multiple diagnoses * * * * Physician Interpretation * * * * PROCEDURE: Pelvis and bilateral hips, mechanical axis INDICATION: Bilateral hip pain TECHNIQUE: XR LEG FRONTL HIP-ANKL MECH AXIS, XR HIP RENEE 5V PEL+ AP/LAT EA HIP COMPARISON: 11/26/2023 and 10/14/2024 FINDINGS: The right total hip arthroplasty is in satisfactory position. No periprosthetic lucency, fracture or subsidence. Stable alignment of the left-sided subtrochanteric fracture with significant healing. Intact fixation hardware. Mild left hip osteoarthrosis. No significant angulation. Measurements can be obtained by the ordering team. Fibular fixation plate is noted on the left. IMPRESSION: Satisfactory appearing right GILL and nearly healed left subtrochanteric fracture Oracle Programmer Analyst: [facility] Transcribe Date/Time: Dec 31 2024 7:38A Dictated by : SANDEEP WIN MD This examination was interpreted and the report reviewed and electronically signed by: SANDEEP WIN MD on Dec 31 2024 7:41AM EST [id number] XR HIP RENEE 5V PEL+ AP/LAT EA HIP Observed: 12/29/2024 11:19 AM Status: F Source: [facility] * * *Final Report* * * DATE OF EXAM: Dec 29 2024 11:19AM SOURAV [id number] - XR HIP RENEE 5V PEL+ AP/LAT EA HIP / PROCEDURE REASON: multiple diagnoses * * * * Physician Interpretation * * * * PROCEDURE: Pelvis and bilateral hips, mechanical axis INDICATION: Bilateral hip pain TECHNIQUE: XR LEG FRONTL HIP-ANKL MECH AXIS, XR HIP RENEE 5V PEL+ AP/LAT EA HIP COMPARISON: 11/26/2023 and 10/14/2024 FINDINGS: The right total hip arthroplasty is in satisfactory position. No periprosthetic lucency, fracture or subsidence. Stable alignment of the left-sided subtrochanteric fracture with significant healing. Intact fixation hardware. Mild left hip osteoarthrosis. No significant angulation. Measurements can be obtained by the ordering team. Fibular fixation plate is noted on the left. IMPRESSION: Satisfactory appearing right GILL and nearly healed left subtrochanteric fracture [employer] Programmer Analyst: [email or web address] Transcribe Date/Time: Dec 31 2024 7:38A Dictated by : SANDEEP WIN MD This examination was interpreted and the report reviewed and electronically signed by: SANDEEP WIN MD on Dec 31 2024 7:41AM EST [id number] PROGRESS Observed: 12/29/2024 10:40 AM Status: COMPLETED Source: [facility] HNO ID: [id number] Author: NAVI RODRÍGUEZ MD Service: ? Author Type: Physician Type: Progress Notes Filed: 12/30/2024 06:56 Note Text: . CNOV Observed: 12/29/2024 10:40 AM Status: COMPLETED Source: [facility] Office Visit (ORMDNA) NIKKIE BUCK ([id number]) 1965 F Date Time Provider Department 12/29/24 10:40 AM NAVI RODRÍGUEZ During your visit today, we recorded the following information about you: Navi Rodríguez MD 12/30/2024 6:56 AM Signed . Referring Provider: RISSA HANKS [[id number]] Allergies As of Date: 12/29/2024 Noted Allergy Reaction DULOXETINE 06/15/2021 7 - Swelling 14 - Other: See Comments Comments: Other reaction(s): swelling Other reaction(s): Unknown Other reaction(s): swelling NSAIDS (NON-STEROIDAL ANTI-INFLAM*08/15/2020 8 - GI Upset Comments: Other reaction(s): GI Upset Other reaction(s): cramping, GI Upset, Other (See Comments), Upset Stomach Severe stomach pain Other reaction(s): GI Upset PENICILLINS 08/15/2020 2 - Rash 14 - Other: See Comments Comments: Other reaction(s): GI Upset, hives, horrible taste in mouth Other reaction(s): GI Upset, GI Upset, horrible taste in mouth, leaves a bad taste in her mouth., NEEDS FOLLOW-UP Other reaction(s): GI Upset, hives, horrible taste in mouth PREGABALIN 08/15/2020 7 - Swelling 14 - Other: See Comments 16 - Unknown Comments: Other reaction(s): swelling, Swelling Other reaction(s): Swelling, Unknown Other reaction(s): swelling, Swelling AMLODIPINE 06/22/2024 5 - Intolerance Comments: leg swelling at 10 mg CELEBREX (CELECOXIB) 08/09/2024 5 - Intolerance Comments: feet and leg swelling PENICILLIN G 11/11/2021 8 - GI Upset IBUPROFEN 11/11/2021 8 - GI Upset Comments: Vomiting cramping TYLENOL (ACETAMINOPHEN) 10/27/2022 8 - GI Upset Date Reviewed: 12/22/2024 Reviewed by: Ron Mesa APRN.REFRIGERATING ENGINEER - Fully Assessed Primary Visit Diagnosis:Painful orthopaedic hardware [T84.84XA] Other Visit Diagnoses:Osteoporosis with pathological fracture with routine healing, subsequent encounter [M80.00XD] History of right hip replacement [Z96.641] Order(s):CONSULT TO ORTHOPAEDICS [9025] Order #: [id number]: 1 Prescriptions as of 12/30/2024 - oxyCODONE IR (ROXICODONE) 5 mg immediate release tablet Take 1 tablet by mouth four times a day as needed for pain for up to 7 days. - albuterol HFA (PROVENTIL HFA, VENTOLIN HFA) 90 mcg/actuation inhaler Inhale 2 puffs as instructed every 4 hours as needed for wheezing/shortness of breath. - insulin lispro (HUMALOG KWIKPEN) 100 unit/mL Inject 8 Units subcutaneously three times a day before meals. Taking as needed - insulin glargine 100 unit/mL (3 mL) Inject 27 Units subcutaneously daily at bedtime. - polyethylene glycol 3350 17 gram/dose powder Take 17 g by mouth once daily as needed for constipation. - Cholecalciferol, Vitamin D3, 50 mcg (2,000 unit) cap Take 1 capsule by mouth once daily. - Insulin Willow, Disposable, (BD ULTRA-FINE PADMINI PEN NEEDLE) 32 gauge x 5/32" 1 Each three times a day. - Blood-Glucose Sensor (DEXCOM G6 SENSOR) jaguar 3 Each every 10 days. - empagliflozin (JARDIANCE) 10 mg tablet Take 1 tablet by mouth daily with breakfast. - losartan (COZAAR) 100 mg tablet Take 1 tablet by mouth once daily. - hydrALAZINE (APRESOLINE) 50 mg tablet Take 1 tablet by mouth four times daily. Hold if blood pressure is less than 110/60 - gabapentin (NEURONTIN) 800 mg tablet Take 1 tablet by mouth four times daily for 90 days. - tiZANidine (ZANAFLEX) 4 mg tablet Take 1 tablet by mouth three times a day as needed. - Blood-Glucose Meter,Continuous (DEXCOM G6 HR COORDINATOR) misc 1 Each once daily. - Blood-Glucose Transmitter (DEXCOM G6 TRANSMITTER) jaguar 1 Each once daily. - hydroCHLOROthiazide 25 mg tablet Take 1 tablet by mouth once daily. - ondansetron orally disintegrating (ZOFRAN ODT) 8 mg disintegrating tablet Take 1 tablet by mouth every 8 hours as needed for nausea/vomiting. - omeprazole (PRILOSEC) 40 mg capsule Take 1 capsule by mouth two times a day. - blood sugar diagnostic (ONETOUCH VERIO TEST STRIPS) test strip 1 Strip four times daily. Use as instructed - fluticasone-salmeterol HFA (ADVAIR HFA) 230-21 mcg/actuation inhaler Inhale 2 Puffs as instructed two times a day. - loratadine (CLARITIN) 10 mg tablet Take 1 tablet by mouth once daily. - CPAP/BIPAP/OTHER Type .CPAPSettings into a note to see current settings/supplies/DME information. Problem List As Of Date 12/29/2024 Noted Resolved Uncontrolled type 2 diabetes mellitus with hype*08/28/2022 Chronic midline low back pain with sciatica [M5*08/28/2022 Chronic obstructive lung disease (HCC) [J44.9] 10/18/2022 11/05/2022 Chronic obstructive pulmonary disease, unspecif*11/30/2021 Hyperlipidemia, unspecified [E78.5] 06/15/2021 Tobacco use [Z72.0] 11/05/[address] scan, kidney [R93.429] 11/05/2022 Dyspepsia [R10.13] 02/21/2023 Epigastric pain [R10.13] 02/21/2023 Right upper quadrant abdominal pain [R10.11] 02/21/2023 Chronic gastritis without bleeding [K29.50] 03/12/2023 Gastric wall thickening [K31.89] 03/12/2023 Primary hypertension [I10] 06/11/2023 Neuropathy [G62.9] 06/11/2023 Back pain with history of spinal surgery [M54.9*06/11/2023 FRANCISCO (obstructive sleep apnea) [G47.33] 06/11/2023 DM gastroparesis (HCC) [E11.43, K31.84] 07/04/2023 Abdominal bloating [R14.0] 10/13/2023 Obesity [E66.9] 10/13/2023 Diagnosed: 10/13/2023 Postlaminectomy syndrome of lumbar region [M96.*10/31/2022 Diagnosed: 10/13/2023 Sciatica [M54.30] 11/18/2022 Diagnosed: 10/13/2023 Fall at home, initial encounter [W19.XXXA, Y92.*11/26/2023 12/04/2023 Nicotine use disorder, F17.2 [F17.200] 11/28/2023 Osteoporosis [M81.0] 08/20/2024 Closed displaced comminuted fracture of shaft o*11/08/2024 Presence of right artificial hip joint [Z96.641]11/08/2024 Level of Service: UNLISTED EVALUATION AND MANAGEMENT SERVICE [45685] LOS History for Encounter Level of Service: OFFICE/OUTPATIENT NEW MODERATE MDM 45 MINUTES[66319] Date AND Time: 12-29-2024 7:44 AM Recorded by User: NAVI RODRÍGUEZ Encounter Status:Closed by NAVI RODRÍGUEZ on 12/30/24 PROGRESS Observed: 12/29/2024 10:30 AM Status: COMPLETED Source: [facility] HNO ID: [id number] Author: ELIAN SHEEHAN Tech Service: ? Author Type: Police Aide Type: Progress Notes Filed: 12/29/2024 11:16 Note Text: Radiology Service Progress Note PATIENT NAME: Nikkie Buck DATE OF SERVICE: December 29, 2024 TIME: 11:15 AM PATIENT IDENTITY VERIFICATION COMPLETED USING TWO (2) IDENTIFIERS: Name and Date of confirmed by patient verbally. FALL SCREENING: Has the patient had 2 falls in the last year or 1 fall with injury or currently using an Ambulatory Assistive Device (Walker, Cane, Wheelchair, Crutches, etc.)? No PATIENT GENDER DATA: Assigned female at . status: : No status: NO. PATIENT RELEVANT IMPLANT DATA REVIEWED: Not Applicable PATIENT PRESENTS WITH AN IMPLANTABLE OR ATTACHED WHARF TALLY CLERK: No RADIOLOGY DEPARTMENT: General X-ray: Exam(s) Completed: Pelvis X-Ray: Pelvis with Hip Bilateral and Wt. Bearing Lower Extremity X-Ray(s): Leg Length PERIPHERAL IV DATA: Not applicable SIGNED BY: Emiliano Hassan December 29, 2024 11:15 AM CNOV Observed: 12/22/2024 9:45 AM Status: COMPLETED Source: [facility] Office Visit (AGSPHWS) NIKKIE BUCK ([id number]) 1965 F Date Time Provider Department 12/22/24 9:45 AM [facility] During your visit today, we recorded the following information about you: Pulse Respiration 84/minute 16/minute Lula Hopkins MA 12/22/2024 10:06 AM Signed Review of Systems Constitutional: Negative for activity change, chills, fever and unexpected weight change. Gastrointestinal: Negative for bowel retention or incontinence Genitourinary: Negative for difficulty urinating. Negative for bladder retention or incontinence Musculoskeletal: Positive for arthralgias, back pain, gait problem and myalgias. Negative for joint swelling, neck pain and neck stiffness. Neurological: Positive for weakness and numbness. Negative for headaches. Psychiatric/Behavioral: Positive for sleep disturbance. Negative for dysphoric mood and suicidal ideas. The patient is nervous/anxious. Ron Mesa APRN.HONEY 12/22/2024 10:06 AM Signed [facility] Today's Date: 12/22/2024 Name: Nikkie Buck : 1965 Purpose: Follow-up Patient Evaluation - This is an established patient, returning today for continued evaluation and management of the chief complaint noted below (Telemedicine) Chief complaint: bilateral hip and lower back pain Pertinent Past Medical History: sleep apnea, diabetes, Median arcuate ligament syndrome, COPD Pertinent Past Surgeries: bilateral CTR, right total hip replacement, lumbar laminectomy L4/5, left femur, left ankle Plan at last visit: (Seen on 10/29/24 by Ron Rubin CNP) 58 year old female presents with complaint(s) of bilateral hip and lower back pain. Patient has pain present in hips bilaterally and noted to be greater in right hip at this time. Patient has pain present in lumbar spine region bilaterally. Patient has history of total right hip replacement. Patient has history of left femur and patellar fracture with presence of hardware. Patient is following with orthopedic providers, as she stated she is seeking to have hardware removed in left femur and patella per patient. Patient indicated that she has failed conservative treatment options including physical therapy and career services officer treatments for this pain. Patient indicated that she has completed hip cortisone's for left hip pain in the past and those have not been effective for treatment. I reviewed patient most recent imaging studies of hips and lumbar spine region and discussed those results with the patient today. Patient was requesting oxycodone HCl IR to be prescribed today and I discussed my philosophy of pain management with patient indicating utilizing interventional pain reduction procedures and nonopiate therapies to treat her pain. I discussed ordering diagnostic femoral obturator nerve blocks under fluoroscopic guidance x 1 set to right then x 1 set to the left and patient would like to proceed with having these nerve blocks being ordered today. I do not recommend therapeutic blocks with steroid at this time due to patient has an acute left patellar fracture. RFA procedure would be indicated if these diagnostic nerve blocks are effective but do not provide meaningful duration of pain reduction. As patient has no recent right hip imaging studies, I ordered a right hip x-ray today. Interval History: Overall pain and functional disability since last visit: Unchanged New Complaints since last visit: No Patient stated that she continues to have bilateral hip and lower back pain. She stated that she canceled the procedure because she does not want to do any injections and stated that previously completed injections and nerve blocks in the past have not been effective for pain control for her. She stated that she did not complete her x-ray that was ordered in October 2024 on her consultation visit. She stated that she would like to be prescribed medications for pain control as her only treatment. Current Pain Medications: Neuropathics: gabapentin NSAIDS: Muscle Relaxants: tizanidine Topicals: Other Prescription or OTC Pain Medications: Opioids (when applicable): oxycodone HCl (IR) (PCP) Anti-depressants or Mood-Stabilizers: None Anti-Coagulants: None Therapies Attended (Current or Most Recent): No Current Therapies Notable Events During Course of Treatment: 10/29/2024 - Initial HPI (Obtained by Ron Rubin REFRIGERATING ENGINEER). DURATION AND ONSET: The pain complaint has been present for approximately 20 years. RED FLAG SYMPTOMS: arm or leg weakness and numbness or tingling. PAIN DESCRIPTION: Timing: Constant Character: Aching, Burning, Cramping, Dull, Numb, Sharp, Shooting, Stabbing, Throbbing Primary Location: hips Radiation: legs Exacerbating factors: Standing, Walking Relieving factors: rest and repositioning, Medications, Ice, Heat Interferes with: physical activity, work, sexual relations, walking, sleeping, sitting, bathing, driving, cooking, household cleaning, reaching for shelves, lifting, and social activities She stated that pain is present in both hips and lower back. She stated that she would like to focus first on reducing pain in hips then focus treatment on lower back pain. She stated that she had right hip replaced in June of [address] Siu orthopedic. She stated that pain is greater in right hip compared to the left hip at this time. She stated that she is following with orthopedic provider for history of left femur fracture and patellar fracture and hardware concerns. 10/29/2024 AG SPINE COMBINATION Questionnaire GREENLIGHT Completed Date 10/29/2024 Questionnaire Opiod Risk Tool Completed Date 10/29/2024 No question data found. Treatment History: PAIN PROCEDURES: DATE PROCEDURE IMPROVEMENT To date, no interventional pain management procedures performed at this practice. MEDICATIONS Taken TO DATE (for the chief complaint(s)): Neuropathics: NSAIDS: Muscle Relaxants: Topicals: Other Prescription or OTC Pain Medications: Opioids: Data Reviewed Today: Allergies: ALLERGIES Allergen Reactions Duloxetine Swelling, Other: See Comments Other reaction(s): swelling Other reaction(s): Unknown Other reaction(s): swelling Nsaids (Non-Steroid* GI Upset Other reaction(s): GI Upset Other reaction(s): cramping, GI Upset, Other (See Comments), Upset Stomach Severe stomach pain Other reaction(s): GI Upset Penicillins Rash, Other: See Comments Other reaction(s): GI Upset, hives, horrible taste in mouth Other reaction(s): GI Upset, GI Upset, horrible taste in mouth, leaves a bad taste in her mouth., NEEDS FOLLOW-UP Other reaction(s): GI Upset, hives, horrible taste in mouth Pregabalin Swelling, Other: See Comments, Unknown Other reaction(s): swelling, Swelling Other reaction(s): Swelling, Unknown Other reaction(s): swelling, Swelling Amlodipine Intolerance leg swelling at 10 mg Celebrex [Celecoxib] Intolerance feet and leg swelling Penicillin G GI Upset Ibuprofen GI Upset Vomiting cramping Tylenol [Acetaminop* GI Upset Social History Tobacco Use Smoking status: Every Day Current packs/day: 1.00 Types: Cigarettes Smokeless tobacco: Never Tobacco comments: 3/4's of a pack daily Vaping Use Vaping status: Never Used Substance Use Topics Alcohol use: Never Drug use: Never 12/15/2024 12/20/2024 INTAKE PAIN ASSESSMENT Are you having pain associated with your visit today? Yes, Provider notified Yes, Provider notified Pain Level 9 9 Description Aching;Crushing;Numbness;Pressure;Sharp;Tenderness;Tightness;Tingling Aching;Contraction;Cramping;Numbness;Pressure;Sharp;Stabbing;Stabbing/Not Incision;Stiffness;Tenderness;Tightness Duration Units Days Days Frequency Continuous Continuous Intervention/Comfort measure Medication;Reposition;Cold;Heat;Massage Medication;Reposition;Relaxation;Cold;Heat;Massage 10/29/2024 AG SPINE COMBINATION Questionnaire GREENLIGHT Completed Date 10/29/2024 Questionnaire Opiod Risk Tool Completed Date 10/29/2024 No question data found. Compliance: PDMP website checked and validated on 12/22/2024 by Ron Mesa APRN.REFRIGERATING ENGINEER All prescriptions have been APPROPRIATELY filled. No suspicious activity was identified. Risk Assessment: ZURDO-7: 01/30/2024 10/29/2024 11/24/2024 ZURDO - 7 SCORES Score 16 8 7 (0-4) minimal anxiety, (5-9) mild anxiety, (10-14) moderate anxiety, (15-21) severe anxiety PHQ-9: 04/06/2024 10/12/2024 10/29/2024 PHQ-9 Score 7 15 10 (0-4) minimal depression, (5-9) mild depression, (10-14) moderate depression, (15-19) moderately severe depression, (20-27) severe depression Diagnostic Studies: Relevant Imaging: No images are attached to the encounter. MRI Spine Report MRI LUMBAR SPINE WO/W IVCON Exam End: 08/30/2022 2:13 PM (Final result) Narrative: * * *Final Report* * * DATE OF EXAM: Aug 30 2022 2:13PM [facility] [id number] - MRI LUMBAR SPINE WO/W IVCON / PROCEDURE REASON: Osteomyelitis, unspecified site, unspecified type (HCC) * * * * Physician Interpretation * * * * EXAMINATION: MRI LUMBAR SPINE WO/W IVCON CLINICAL HISTORY: Prior lumbar surgery. Back pain. TECHNIQUE: Routine lumbosacral spine MR protocol without and with intravenous gadolinium. Contrast: 13 mL Dotarem IV MQ: [id number] COMPARISON: MRI lumbar spine from outside hospital dated 02/14/2022 RESULT: Counting reference: Lumbosacral junction. For the purposes of this report, L4-5 is considered the level of the iliac crest and assume there are 5 lumbar-type vertebrae. Anatomic variant: None. Localizer images: Unremarkable. Postop: There are posterior spinal fixation rods and pedicle screws at L4-L5. Also remote postoperative changes of an L4 laminectomy. There is no pseudomeningocele. There are stable remote postoperative changes of discectomy with placement of an interbody fusion device at L4-L5. Extensive marrow edema identified along the inferior aspect of L3 has markedly decreased when compared to the previous examination. There is heterogeneous decreased T1 marrow signal throughout the L4 and L5 not appreciably changed since the prior exam. Alignment: Alignment is anatomic. Bone marrow signal/fracture: There is an new decreased T1 and increased inversion recovery marrow signal along the superior endplate of T12 compatible with an acute or subacute compression fracture. No significant dorsal displacement the posterior wall. There is less than 30% loss of height of the T12 vertebra. No evidence of prior fracture. Conus: The conus is within normal limits of signal intensity and morphology terminating at L1. Nerve roots are normal in appearance. Paraspinal soft tissues: Paraspinal soft tissues are within normal limits. Lower thoracic spine: Visualized lower thoracic canal and foramina are patent. T12-L1: Canal and foramina are patent. L1-L2: Canal and foramina are patent. L2-L3: Canal and foramina are patent L3-L4: Mild canal stenosis due to facet hypertrophy. Disc bulge anteriorly. Bilateral moderate neural foraminal stenosis. L4-L5: Spinal canal is decompressed due to laminectomy. Bilateral moderate neural foraminal stenosis unchanged since the prior examination L5-S1: Canal and foramina are patent Sacrum and iliac wings: The visualized sacrum and iliac wings are within normal limits. Impression: IMPRESSION: No clear evidence of discitis or osteomyelitis on this examination. No abnormal epidural or paravertebral soft tissue or enhancement. Interval development of a less than 30% acute or subacute compression fracture along the superior endplate of T12. No significant dorsal displacement the posterior wall. Interval decrease in the edema along the inferior endplate of L3. Stable postop changes of discectomy and posterior fusion at L4-L5. No evidence of arachnoiditis. Anatomic Thoracic/Lumbar Variant: None. L4-5 is considered the level of the iliac crest and assume there are 5 lumbar-type vertebrae. Oracle Programmer Analyst: [facility] Transcribe Date/Time: Aug 30 2022 3:16P Dictated by : PADMA GRACE MD This examination was interpreted and the report reviewed and electronically signed by: PADMA GRACE MD on Aug 30 2022 3:24PM EST 10/14/2024 4:10 PM - Radiology, Oru In Impression IMPRESSION: Acute left patellar fracture. Remote posttraumatic and postoperative findings as described with intact hardware. Oracle Programmer Analyst: [facility] Transcribe Date/Time: Oct 14 2024 3:57P Dictated by : NAVID RANDLE MD This examination was interpreted and the report reviewed and electronically signed by: NAVID RANDLE MD on Oct 14 2024 4:08PM EST Results-Findings * * *Final Report* * * DATE OF EXAM: Oct 14 2024 1:04PM [facility] [id number] - XR HIP 3V PELV+ AP/LAT LT / PROCEDURE REASON: Painful orthopaedic hardware (HCC) * * * * Physician Interpretation * * * * EXAMINATION / TECHNIQUE: XR HIP 3V PELV+ AP/LAT LT, XR FEMUR 2V AP/LAT LT HISTORY: left thigh pain Painful orthopaedic hardware (HCC) COMPARISON: 11/26/2023 RESULT: There is an acute appearing transversely oriented fracture of the patella. Remote subtrochanteric left proximal femur fracture deformity transfixed with intramedullary rickey and screws with lateral plate, screw, and cerclage augmentation in the mid to distal femur, new since 11/26/2023. Hardware is intact without evidence of loosening or fracture. There appears to be solid osseous fusion across the majority of the fracture. New partially imaged right total hip arthroplasty also noted, imaged portions of which appear intact. Partially imaged severe lower lumbar spondylosis with interbody device at L4-5, incompletely characterized. SI joints and pubic symphysis are intact. Electrodiagnostic Study (EMG): None Recent Labs: Creatinine Date Value Ref Range Status 09/22/2024 1.46 (H) 0.58 - 0.96 mg/dL Final No results found for: "GFR" Glucose, Point of Care Date Value Ref Range Status 12/03/2024 86 74 - 99 mg/dL Final Comment: Location:[facility], [address] [place] [address] The Accu-Chek Inform II glucose meter has not been approved for testing on patients receiving intensive medical intervention or therapy and results from this point of care glucose test should not be used for patient management decisions in these cases. Inaccurate results may also occur from other interfering factors, such as N-acetylcysteine (blood concentrations of greater than 5mg/dL), galactose, extremes of hematocrit (<10 or >65), or high doses of ascorbic acid (vitamin C) greater than 3mg/dL. Consider alternate testing mechanisms (e.g. core lab, blood gas instrument) in the above situations. Current Medications, Past Medical History, Past Surgical History, Family History AND Social History: Reviewed on today's date. Review of Systems: Reviewed on today's date. Physical Exam: 12/22/24 0942 Pulse: 84 Resp: 16 SpO2: 98% Physical Exam HENT: Head: Normocephalic. Right Ear: External ear normal. Left Ear: External ear normal. Eyes: Pupils: Pupils are equal, round, and reactive to light. Cardiovascular: Pulses: Normal pulses. Pulmonary: Effort: Pulmonary effort is normal. Musculoskeletal: General: Tenderness (Hips, lower back, left leg and knee) present. Lumbar back: Tenderness (Bilaterally) present. No swelling, edema, deformity, lacerations, spasms or bony tenderness. Decreased range of motion. Back: Right hip: Tenderness present. Decreased range of motion. Left hip: Tenderness present. Decreased range of motion. Left upper leg: Tenderness present. Left knee: Decreased range of motion. Tenderness present. Legs: Skin: General: Skin is warm and dry. Capillary Refill: Capillary refill takes 2 to 3 seconds. Neurological: Mental Status: She is alert and oriented to person, place, and time. Sensory: Sensory deficit (Lower extremities) present. Motor: Weakness (Lower extremities) present. No atrophy or abnormal muscle tone. Gait: Gait abnormal (Using rollator). Deep Tendon Reflexes: Reflexes are normal and symmetric. Reflexes normal. Psychiatric: Mood and Affect: Mood normal. Behavior: Behavior normal. Thought Content: Thought content normal. IMPRESSION: 59 year old female presents with complaint(s) of lower back and bilateral hip pain. Patient canceled procedures that were ordered on her consultation visit in October 2024, as patient stated that she does not want to complete any interventional pain reduction procedures to treat her pain. Patient is requesting to be prescribed medication for pain control and is currently prescribed oxycodone HCl IR from her PCP for pain control. I discussed my philosophy of pain management with patient utilizing interventional pain reduction procedures and on pharmacological treatments and patient stated an understanding of this today. I discussed referral to the comprehensive pain recovery program with patient today and patient would like to proceed with that order being placed today. Patient was advised that I do not feel I have anything to offer her for treatment at this time if she is not interested in pursuing interventional pain reduction treatments and patient stated an understanding. Patient expressed understanding of information provided to her today. All patient questions were answered during today's office visit encounter. Diagnoses: (M25.551, M25.552) Bilateral hip pain (primary encounter diagnosis) (Z96.641) History of right hip replacement (M25.551) Pain in right hip (G89.4) Chronic pain syndrome PLAN: Nikkie Buck would benefit from the following to reach personal goals for decreasing pain, improving function and work participation, and/or improving quality of life: Medications: None Interventional Procedures: None Studies: None Functional Hoahaoism: NONE Referrals: [facility] Comprehensive Pain Recovery Program ([phone]) Follow-up: none Compliance and Clinic Policies Reviewed and/or Discussed Today: None Attribution: In addition to reviewing the information noted above, some elements copied from my most recent clinical note(s), including the physical exam (completed in entirety today), and the impression and plan sections, have been updated where appropriate. All reflect current medical decision making from today's date. Ron Mesa APRN.REFRIGERATING ENGINEER Pain Management [facility] Referring Provider: RON MESA [[id number]] Allergies As of Date: 12/22/2024 Noted Allergy Reaction DULOXETINE 06/15/2021 7 - Swelling 14 - Other: See Comments Comments: Other reaction(s): swelling Other reaction(s): Unknown Other reaction(s): swelling NSAIDS (NON-STEROIDAL ANTI-INFLAM*08/15/2020 8 - GI Upset Comments: Other reaction(s): GI Upset Other reaction(s): cramping, GI Upset, Other (See Comments), Upset Stomach Severe stomach pain Other reaction(s): GI Upset PENICILLINS 08/15/2020 2 - Rash 14 - Other: See Comments Comments: Other reaction(s): GI Upset, hives, horrible taste in mouth Other reaction(s): GI Upset, GI Upset, horrible taste in mouth, leaves a bad taste in her mouth., NEEDS FOLLOW-UP Other reaction(s): GI Upset, hives, horrible taste in mouth PREGABALIN 08/15/2020 7 - Swelling 14 - Other: See Comments 16 - Unknown Comments: Other reaction(s): swelling, Swelling Other reaction(s): Swelling, Unknown Other reaction(s): swelling, Swelling AMLODIPINE 06/22/2024 5 - Intolerance Comments: leg swelling at 10 mg CELEBREX (CELECOXIB) 08/09/2024 5 - Intolerance Comments: feet and leg swelling PENICILLIN G 11/11/2021 8 - GI Upset IBUPROFEN 11/11/2021 8 - GI Upset Comments: Vomiting cramping TYLENOL (ACETAMINOPHEN) 10/27/2022 8 - GI Upset Date Reviewed: 12/22/2024 Reviewed by: Ron Mesa APRN.REFRIGERATING ENGINEER - Fully Assessed Reason for Visit: Follow Up [171] Hip Pain [136] Primary Visit Diagnosis:Bilateral hip pain [M25.551, M25.552] Other Visit Diagnoses:History of right hip replacement [Z96.641] Pain in right hip [M25.551] Chronic pain syndrome [G89.4] Prescriptions as of 12/22/2024 - oxyCODONE IR (ROXICODONE) 5 mg immediate release tablet Take 1 tablet by mouth four times a day as needed for pain for up to 7 days. Patient should start on December 22, 2024. - insulin lispro (HUMALOG KWIKPEN) 100 unit/mL Inject 8 Units subcutaneously three times a day before meals. Taking as needed - insulin glargine 100 unit/mL (3 mL) Inject 27 Units subcutaneously daily at bedtime. - polyethylene glycol 3350 17 gram/dose powder Take 17 g by mouth once daily as needed for constipation. - Cholecalciferol, Vitamin D3, 50 mcg (2,000 unit) cap Take 1 capsule by mouth once daily. - Insulin Willow, Disposable, (BD ULTRA-FINE PADMINI PEN NEEDLE) 32 gauge x 5/32" 1 Each three times a day. - Blood-Glucose Sensor (DEXCOM G6 SENSOR) jaguar 3 Each every 10 days. - empagliflozin (JARDIANCE) 10 mg tablet Take 1 tablet by mouth daily with breakfast. - losartan (COZAAR) 100 mg tablet Take 1 tablet by mouth once daily. - hydrALAZINE (APRESOLINE) 50 mg tablet Take 1 tablet by mouth four times daily. Hold if blood pressure is less than 110/60 - gabapentin (NEURONTIN) 800 mg tablet Take 1 tablet by mouth four times daily for 90 days. - tiZANidine (ZANAFLEX) 4 mg tablet Take 1 tablet by mouth three times a day as needed. - Blood-Glucose Meter,Continuous (DEXCOM G6 HR COORDINATOR) misc 1 Each once daily. - Blood-Glucose Transmitter (DEXCOM G6 TRANSMITTER) jaguar 1 Each once daily. - hydroCHLOROthiazide 25 mg tablet Take 1 tablet by mouth once daily. - ondansetron orally disintegrating (ZOFRAN ODT) 8 mg disintegrating tablet Take 1 tablet by mouth every 8 hours as needed for nausea/vomiting. - omeprazole (PRILOSEC) 40 mg capsule Take 1 capsule by mouth two times a day. - blood sugar diagnostic ([employer]UCH VERIO TEST STRIPS) test strip 1 Strip four times daily. Use as instructed - fluticasone-salmeterol HFA (ADVAIR HFA) 230-21 mcg/actuation inhaler Inhale 2 Puffs as instructed two times a day. - loratadine (CLARITIN) 10 mg tablet Take 1 tablet by mouth once daily. - albuterol HFA (PROVENTIL HFA, VENTOLIN HFA) 90 mcg/actuation inhaler Inhale 2 Puffs as instructed every 4 hours as needed for wheezing/shortness of breath. - CPAP/BIPAP/OTHER Type .CPAPSettings into a note to see current settings/supplies/DME information. Problem List As Of Date 12/22/2024 Noted Resolved Uncontrolled type 2 diabetes mellitus with hype*08/28/2022 Chronic midline low back pain with sciatica [M5*08/28/2022 Chronic obstructive lung disease (HCC) [J44.9] 10/18/2022 11/05/2022 Chronic obstructive pulmonary disease, unspecif*11/30/2021 Hyperlipidemia, unspecified [E78.5] 06/15/2021 Tobacco use [Z72.0] 11/05/[address] scan, kidney [R93.429] 11/05/2022 Dyspepsia [R10.13] 02/21/2023 Epigastric pain [R10.13] 02/21/2023 Right upper quadrant abdominal pain [R10.11] 02/21/2023 Chronic gastritis without bleeding [K29.50] 03/12/2023 Gastric wall thickening [K31.89] 03/12/2023 Primary hypertension [I10] 06/11/2023 Neuropathy [G62.9] 06/11/2023 Back pain with history of spinal surgery [M54.9*06/11/2023 FRANCISCO (obstructive sleep apnea) [G47.33] 06/11/2023 DM gastroparesis (HCC) [E11.43, K31.84] 07/04/2023 Abdominal bloating [R14.0] 10/13/2023 Obesity [E66.9] 10/13/2023 Diagnosed: 10/13/2023 Postlaminectomy syndrome of lumbar region [M96.*10/31/2022 Diagnosed: 10/13/2023 Sciatica [M54.30] 11/18/2022 Diagnosed: 10/13/2023 Fall at home, initial encounter [W19.XXXA, Y92.*11/26/2023 12/04/2023 Nicotine use disorder, F17.2 [F17.200] 11/28/2023 Osteoporosis [M81.0] 08/20/2024 Closed displaced comminuted fracture of shaft o*11/08/2024 Presence of right artificial hip joint [Z96.641]11/08/2024 Disposition: Return for no follow up. Follow-up and Disposition History for Encounter Date Provider Department Center 12/22/2024 [id number], JAS*AGSPHWS [facility] Encounter Status:Closed by RON MESA on 12/22/24 PROGRESS Observed: 12/22/2024 9:45 AM Status: COMPLETED Source: [facility] HNO ID: [id number] Author: RON MESA APRN.HONEY Service: ? Author Type: Nurse Practitioner Type: Progress Notes Filed: 12/22/2024 10:06 Note Text: [facility] Today's Date: 12/22/2024 Name: Nikkie Buck : 1965 Purpose: Follow-up Patient Evaluation - This is an established patient, returning today for continued evaluation and management of the chief complaint noted below (Telemedicine) Chief complaint: bilateral hip and lower back pain Pertinent Past Medical History: sleep apnea, diabetes, Median arcuate ligament syndrome, COPD Pertinent Past Surgeries: bilateral CTR, right total hip replacement, lumbar laminectomy L4/5, left femur, left ankle Plan at last visit: (Seen on 10/29/24 by Ron Rubin CNP) 58 year old female presents with complaint(s) of bilateral hip and lower back pain. Patient has pain present in hips bilaterally and noted to be greater in right hip at this time. Patient has pain present in lumbar spine region bilaterally. Patient has history of total right hip replacement. Patient has history of left femur and patellar fracture with presence of hardware. Patient is following with orthopedic providers, as she stated she is seeking to have hardware removed in left femur and patella per patient. Patient indicated that she has failed conservative treatment options including physical therapy and career services officer treatments for this pain. Patient indicated that she has completed hip cortisone's for left hip pain in the past and those have not been effective for treatment. I reviewed patient most recent imaging studies of hips and lumbar spine region and discussed those results with the patient today. Patient was requesting oxycodone HCl IR to be prescribed today and I discussed my philosophy of pain management with patient indicating utilizing interventional pain reduction procedures and nonopiate therapies to treat her pain. I discussed ordering diagnostic femoral obturator nerve blocks under fluoroscopic guidance x 1 set to right then x 1 set to the left and patient would like to proceed with having these nerve blocks being ordered today. I do not recommend therapeutic blocks with steroid at this time due to patient has an acute left patellar fracture. RFA procedure would be indicated if these diagnostic nerve blocks are effective but do not provide meaningful duration of pain reduction. As patient has no recent right hip imaging studies, I ordered a right hip x-ray today. Interval History: Overall pain and functional disability since last visit: Unchanged New Complaints since last visit: No Patient stated that she continues to have bilateral hip and lower back pain. She stated that she canceled the procedure because she does not want to do any injections and stated that previously completed injections and nerve blocks in the past have not been effective for pain control for her. She stated that she did not complete her x-ray that was ordered in October 2024 on her consultation visit. She stated that she would like to be prescribed medications for pain control as her only treatment. Current Pain Medications: Neuropathics: gabapentin NSAIDS: Muscle Relaxants: tizanidine Topicals: Other Prescription or OTC Pain Medications: Opioids (when applicable): oxycodone HCl (IR) (PCP) Anti-depressants or Mood-Stabilizers: None Anti-Coagulants: None Therapies Attended (Current or Most Recent): No Current Therapies Notable Events During Course of Treatment: 10/29/2024 - Initial HPI (Obtained by Ron Rubin [facility]). DURATION AND ONSET: The pain complaint has been present for approximately 20 years. RED FLAG SYMPTOMS: arm or leg weakness and numbness or tingling. PAIN DESCRIPTION: Timing: Constant Character: Aching, Burning, Cramping, Dull, Numb, Sharp, Shooting, Stabbing, Throbbing Primary Location: hips Radiation: legs Exacerbating factors: Standing, Walking Relieving factors: rest and repositioning, Medications, Ice, Heat Interferes with: physical activity, work, sexual relations, walking, sleeping, sitting, bathing, driving, cooking, household cleaning, reaching for shelves, lifting, and social activities She stated that pain is present in both hips and lower back. She stated that she would like to focus first on reducing pain in hips then focus treatment on lower back pain. She stated that she had right hip replaced in June of [address] Siu orthopedic. She stated that pain is greater in right hip compared to the left hip at this time. She stated that she is following with orthopedic provider for history of left femur fracture and patellar fracture and hardware concerns. 10/29/2024 AG SPINE COMBINATION Questionnaire GREENLIGHT Completed Date 10/29/2024 Questionnaire Opiod Risk Tool Completed Date 10/29/2024 No question data found. Treatment History: PAIN PROCEDURES: DATE PROCEDURE IMPROVEMENT To date, no interventional pain management procedures performed at this practice. MEDICATIONS Taken TO DATE (for the chief complaint(s)): Neuropathics: NSAIDS: Muscle Relaxants: Topicals: Other Prescription or OTC Pain Medications: Opioids: Data Reviewed Today: Allergies: ALLERGIES Allergen Reactions Duloxetine Swelling, Other: See Comments Other reaction(s): swelling Other reaction(s): Unknown Other reaction(s): swelling Nsaids (Non-Steroid* GI Upset Other reaction(s): GI Upset Other reaction(s): cramping, GI Upset, Other (See Comments), Upset Stomach Severe stomach pain Other reaction(s): GI Upset Penicillins Rash, Other: See Comments Other reaction(s): GI Upset, hives, horrible taste in mouth Other reaction(s): GI Upset, GI Upset, horrible taste in mouth, leaves a bad taste in her mouth., NEEDS FOLLOW-UP Other reaction(s): GI Upset, hives, horrible taste in mouth Pregabalin Swelling, Other: See Comments, Unknown Other reaction(s): swelling, Swelling Other reaction(s): Swelling, Unknown Other reaction(s): swelling, Swelling Amlodipine Intolerance leg swelling at 10 mg Celebrex [Celecoxib] Intolerance feet and leg swelling Penicillin G GI Upset Ibuprofen GI Upset Vomiting cramping Tylenol [Acetaminop* GI Upset Social History Tobacco Use Smoking status: Every Day Current packs/day: 1.00 Types: Cigarettes Smokeless tobacco: Never Tobacco comments: 3/4's of a pack daily Vaping Use Vaping status: Never Used Substance Use Topics Alcohol use: Never Drug use: Never 12/15/2024 12/20/2024 INTAKE PAIN ASSESSMENT Are you having pain associated with your visit today? Yes, Provider notified Yes, Provider notified Pain Level 9 9 Description Aching;Crushing;Numbness;Pressure;Sharp;Tenderness;Tightness;Tingling Aching;Contraction;Cramping;Numbness;Pressure;Sharp;Stabbing;Stabbing/Not Incision;Stiffness;Tenderness;Tightness Duration Units Days Days Frequency Continuous Continuous Intervention/Comfort measure Medication;Reposition;Cold;Heat;Massage Medication;Reposition;Relaxation;Cold;Heat;Massage 10/29/2024 AG SPINE COMBINATION Questionnaire GREENLIGHT Completed Date 10/29/2024 Questionnaire Opiod Risk Tool Completed Date 10/29/2024 No question data found. [facility] and validated on 12/22/2024 by Ron Mesa APRN.REFRIGERATING ENGINEER All prescriptions have been APPROPRIATELY filled. No suspicious activity was identified. Risk Assessment: ZURDO-7: 01/30/2024 10/29/2024 11/24/2024 ZURDO - 7 SCORES Score 16 8 7 (0-4) minimal anxiety, (5-9) mild anxiety, (10-14) moderate anxiety, (15-21) severe anxiety PHQ-9: 04/06/2024 10/12/2024 10/29/2024 PHQ-9 Score 7 15 10 (0-4) minimal depression, (5-9) mild depression, (10-14) moderate depression, (15-19) moderately severe depression, (20-27) severe depression Diagnostic Studies: Relevant Imaging: No images are attached to the encounter. MRI Spine Report MRI LUMBAR SPINE WO/W IVCON Exam End: 08/30/2022 2:13 PM (Final result) Narrative: * * *Final Report* * * DATE OF EXAM: Aug 30 2022 2:13PM FARSHAD [id number] - MRI LUMBAR SPINE WO/W IVCON / PROCEDURE REASON: Osteomyelitis, unspecified site, unspecified type (HCC) * * * * Physician Interpretation * * * * EXAMINATION: MRI LUMBAR SPINE WO/W IVCON CLINICAL HISTORY: Prior lumbar surgery. Back pain. TECHNIQUE: Routine lumbosacral spine MR protocol without and with intravenous gadolinium. Contrast: 13 mL Dotarem IV MQ: [id number] COMPARISON: MRI lumbar spine from outside hospital dated 02/14/2022 RESULT: Counting reference: Lumbosacral junction. For the purposes of this report, L4-5 is considered the level of the iliac crest and assume there are 5 lumbar-type vertebrae. Anatomic variant: None. Localizer images: Unremarkable. Postop: There are posterior spinal fixation rods and pedicle screws at L4-L5. Also remote postoperative changes of an L4 laminectomy. There is no pseudomeningocele. There are stable remote postoperative changes of discectomy with placement of an interbody fusion device at L4-L5. Extensive marrow edema identified along the inferior aspect of L3 has markedly decreased when compared to the previous examination. There is heterogeneous decreased T1 marrow signal throughout the L4 and L5 not appreciably changed since the prior exam. Alignment: Alignment is anatomic. Bone marrow signal/fracture: There is an new decreased T1 and increased inversion recovery marrow signal along the superior endplate of T12 compatible with an acute or subacute compression fracture. No significant dorsal displacement the posterior wall. There is less than 30% loss of height of the T12 vertebra. No evidence of prior fracture. Conus: The conus is within normal limits of signal intensity and morphology terminating at L1. Nerve roots are normal in appearance. Paraspinal soft tissues: Paraspinal soft tissues are within normal limits. Lower thoracic spine: Visualized lower thoracic canal and foramina are patent. T12-L1: Canal and foramina are patent. L1-L2: Canal and foramina are patent. L2-L3: Canal and foramina are patent L3-L4: Mild canal stenosis due to facet hypertrophy. Disc bulge anteriorly. Bilateral moderate neural foraminal stenosis. L4-L5: Spinal canal is decompressed due to laminectomy. Bilateral moderate neural foraminal stenosis unchanged since the prior examination L5-S1: Canal and foramina are patent Sacrum and iliac wings: The visualized sacrum and iliac wings are within normal limits. Impression: IMPRESSION: No clear evidence of discitis or osteomyelitis on this examination. No abnormal epidural or paravertebral soft tissue or enhancement. Interval development of a less than 30% acute or subacute compression fracture along the superior endplate of T12. No significant dorsal displacement the posterior wall. Interval decrease in the edema along the inferior endplate of L3. Stable postop changes of discectomy and posterior fusion at L4-L5. No evidence of arachnoiditis. Anatomic Thoracic/Lumbar Variant: None. L4-5 is considered the level of the iliac crest and assume there are 5 lumbar-type vertebrae. Oracle Programmer Analyst: [facility] Transcribe Date/Time: Aug 30 2022 3:16P Dictated by : PADMA GRACE MD This examination was interpreted and the report reviewed and electronically signed by: PADMA GRACE MD on Aug 30 2022 3:24PM EST 10/14/2024 4:10 PM - Radiology, Oru In Impression IMPRESSION: Acute left patellar fracture. Remote posttraumatic and postoperative findings as described with intact hardware. Oracle Programmer Analyst: [facility] Transcribe Date/Time: Oct 14 2024 3:57P Dictated by : NAVID RANDLE MD This examination was interpreted and the report reviewed and electronically signed by: NAVID RANDLE MD on Oct 14 2024 4:08PM EST Results-Findings * * *Final Report* * * DATE OF EXAM: Oct 14 2024 1:04PM LZX [id number] - XR HIP 3V PELV+ AP/LAT LT / PROCEDURE REASON: Painful orthopaedic hardware (HCC) * * * * Physician Interpretation * * * * EXAMINATION / TECHNIQUE: XR HIP 3V PELV+ AP/LAT LT, XR FEMUR 2V AP/LAT LT HISTORY: left thigh pain Painful orthopaedic hardware (HCC) COMPARISON: 11/26/2023 RESULT: There is an acute appearing transversely oriented fracture of the patella. Remote subtrochanteric left proximal femur fracture deformity transfixed with intramedullary rickey and screws with lateral plate, screw, and cerclage augmentation in the mid to distal femur, new since 11/26/2023. Hardware is intact without evidence of loosening or fracture. There appears to be solid osseous fusion across the majority of the fracture. New partially imaged right total hip arthroplasty also noted, imaged portions of which appear intact. Partially imaged severe lower lumbar spondylosis with interbody device at L4-5, incompletely characterized. SI joints and pubic symphysis are intact. Electrodiagnostic Study (EMG): None Recent Labs: Creatinine Date Value Ref Range Status 09/22/2024 1.46 (H) 0.58 - 0.96 mg/dL Final No results found for: "GFR" Glucose, Point of Care Date Value Ref Range Status 12/03/2024 86 74 - 99 mg/dL Final Comment: Location:[facility], [address] [place] [address], [facility] The Accu-Chek Inform II glucose meter has not been approved for testing on patients receiving intensive medical intervention or therapy and results from this point of care glucose test should not be used for patient management decisions in these cases. Inaccurate results may also occur from other interfering factors, such as N-acetylcysteine (blood concentrations of greater than 5mg/dL), galactose, extremes of hematocrit (<10 or >65), or high doses of ascorbic acid (vitamin C) greater than 3mg/dL. Consider alternate testing mechanisms (e.g. core lab, blood gas instrument) in the above situations. Current Medications, Past Medical History, Past Surgical History, Family History AND Social History: Reviewed on today's date. Review of Systems: Reviewed on today's date. Physical Exam: 12/22/24 0942 Pulse: 84 Resp: 16 SpO2: 98% Physical Exam HENT: Head: Normocephalic. Right Ear: External ear normal. Left Ear: External ear normal. Eyes: Pupils: Pupils are equal, round, and reactive to light. Cardiovascular: Pulses: Normal pulses. Pulmonary: Effort: Pulmonary effort is normal. Musculoskeletal: General: Tenderness (Hips, lower back, left leg and knee) present. Lumbar back: Tenderness (Bilaterally) present. No swelling, edema, deformity, lacerations, spasms or bony tenderness. Decreased range of motion. Back: Right hip: Tenderness present. Decreased range of motion. Left hip: Tenderness present. Decreased range of motion. Left upper leg: Tenderness present. Left knee: Decreased range of motion. Tenderness present. Legs: Skin: General: Skin is warm and dry. Capillary Refill: Capillary refill takes 2 to 3 seconds. Neurological: Mental Status: She is alert and oriented to person, place, and time. Sensory: Sensory deficit (Lower extremities) present. Motor: Weakness (Lower extremities) present. No atrophy or abnormal muscle tone. Gait: Gait abnormal (Using rollator). Deep Tendon Reflexes: Reflexes are normal and symmetric. Reflexes normal. Psychiatric: Mood and Affect: Mood normal. Behavior: Behavior normal. Thought Content: Thought content normal. IMPRESSION: 59 year old female presents with complaint(s) of lower back and bilateral hip pain. Patient canceled procedures that were ordered on her consultation visit in October 2024, as patient stated that she does not want to complete any interventional pain reduction procedures to treat her pain. Patient is requesting to be prescribed medication for pain control and is currently prescribed oxycodone HCl IR from her PCP for pain control. I discussed my philosophy of pain management with patient utilizing interventional pain reduction procedures and on pharmacological treatments and patient stated an understanding of this today. I discussed referral to the comprehensive pain recovery program with patient today and patient would like to proceed with that order being placed today. Patient was advised that I do not feel I have anything to offer her for treatment at this time if she is not interested in pursuing interventional pain reduction treatments and patient stated an understanding. Patient expressed understanding of information provided to her today. All patient questions were answered during today's office visit encounter. Diagnoses: (M25.551, M25.552) Bilateral hip pain (primary encounter diagnosis) (Z96.641) History of right hip replacement (M25.551) Pain in right hip (G89.4) Chronic pain syndrome PLAN: Nikkie Buck would benefit from the following to reach personal goals for decreasing pain, improving function and work participation, and/or improving quality of life: Medications: None Interventional Procedures: None Studies: None Functional Hoahaoism: NONE Referrals: [facility] Comprehensive Pain Recovery Program ([phone]) Follow-up: none Compliance and Clinic Policies Reviewed and/or Discussed Today: None Attribution: In addition to reviewing the information noted above, some elements copied from my most recent clinical note(s), including the physical exam (completed in entirety today), and the impression and plan sections, have been updated where appropriate. All reflect current medical decision making from today's date. Ron Mesa APRN.REFRIGERATING ENGINEER Pain Management [facility] PROGRESS Observed: 12/22/2024 9:42 AM Status: COMPLETED Source: [facility] HNO ID: [id number] Author: LULA HOPKINS MA Service: ? Author Type: Tower Observer Type: Progress Notes Filed: 12/22/2024 10:06 Note Text: Review of Systems Constitutional: Negative for activity change, chills, fever and unexpected weight change. Gastrointestinal: Negative for bowel retention or incontinence Genitourinary: Negative for difficulty urinating. Negative for bladder retention or incontinence Musculoskeletal: Positive for arthralgias, back pain, gait problem and myalgias. Negative for joint swelling, neck pain and neck stiffness. Neurological: Positive for weakness and numbness. Negative for headaches. Psychiatric/Behavioral: Positive for sleep disturbance. Negative for dysphoric mood and suicidal ideas. The patient is nervous/anxious. HONEYN Observed: 12/15/2024 12:00 AM Status: COMPLETED Source: [facility] Telephone ([email or web address]) NIKKIE BUCK ([id number]) 1965 F Date Time Provider Department [facility] During your visit today, we recorded the following information about you: Eden Brito 12/15/2024 9:58 AM Signed No Show Documentation Nikkie Buck no showed for an appointment on 12/10/24 with Ron Mesa APRN.REFRIGERATING ENGINEER at 11:45. She was scheduled for follow up. I called and spoke with the patient regarding her missed appointment. Nikkie stated the reason that she missed her appointment was because scheduling error/conflict . Resources discussed/offered to patient: NA No show determined to be fault of patient: Yes This is the patients second no show in the last 12 months. Patient was rescheduled for 12/22. Letter mailed : Yes Is this the Third or Fourth "No Show"? No Eden Brito December 15, 2024 9:57 AM Kerry Mart 12/16/2024 12:35 PM Signed Patient called office today and stated she received a no show letter. She stated she was on mychart waiting for her appointment and no one connected with her. This should not be marked as a no show. Kerry Mart Allergies As of Date: 12/15/2024 Noted Allergy Reaction DULOXETINE 06/15/2021 7 - Swelling 14 - Other: See Comments Comments: Other reaction(s): swelling Other reaction(s): Unknown Other reaction(s): swelling NSAIDS (NON-STEROIDAL ANTI-INFLAM*08/15/2020 8 - GI Upset Comments: Other reaction(s): GI Upset Other reaction(s): cramping, GI Upset, Other (See Comments), Upset Stomach Severe stomach pain Other reaction(s): GI Upset PENICILLINS 08/15/2020 2 - Rash 14 - Other: See Comments Comments: Other reaction(s): GI Upset, hives, horrible taste in mouth Other reaction(s): GI Upset, GI Upset, horrible taste in mouth, leaves a bad taste in her mouth., NEEDS FOLLOW-UP Other reaction(s): GI Upset, hives, horrible taste in mouth PREGABALIN 08/15/2020 7 - Swelling 14 - Other: See Comments 16 - Unknown Comments: Other reaction(s): swelling, Swelling Other reaction(s): Swelling, Unknown Other reaction(s): swelling, Swelling AMLODIPINE 06/22/2024 5 - Intolerance Comments: leg swelling at 10 mg CELEBREX (CELECOXIB) 08/09/2024 5 - Intolerance Comments: feet and leg swelling PENICILLIN G 11/11/2021 8 - GI Upset IBUPROFEN 11/11/2021 8 - GI Upset Comments: Vomiting cramping TYLENOL (ACETAMINOPHEN) 10/27/2022 8 - GI Upset Date Reviewed: 12/03/2024 Reviewed by: Charis Siu RN - Fully Assessed Reason for Visit: No Show (Missed #2) [Other] Prescriptions as of 12/16/2024 - oxyCODONE IR (ROXICODONE) 5 mg immediate release tablet Take 1 tablet by mouth four times a day as needed for pain for up to 7 days. Patient should start on December 15, 2024. - insulin lispro (HUMALOG KWIKPEN) 100 unit/mL Inject 8 Units subcutaneously three times a day before meals. Taking as needed - sucralfate (CARAFATE) 1 gram tablet Take 1 tablet by mouth two times a day for 14 days. - insulin glargine 100 unit/mL (3 mL) Inject 27 Units subcutaneously daily at bedtime. - polyethylene glycol 3350 17 gram/dose powder Take 17 g by mouth once daily as needed for constipation. - Cholecalciferol, Vitamin D3, 50 mcg (2,000 unit) cap Take 1 capsule by mouth once daily. - Insulin Willow, Disposable, (BD ULTRA-FINE PADMINI PEN NEEDLE) 32 gauge x 5/32" 1 Each three times a day. - Blood-Glucose Sensor (DEXCOM G6 SENSOR) jaguar 3 Each every 10 days. - empagliflozin (JARDIANCE) 10 mg tablet Take 1 tablet by mouth daily with breakfast. - losartan (COZAAR) 100 mg tablet Take 1 tablet by mouth once daily. - hydrALAZINE (APRESOLINE) 50 mg tablet Take 1 tablet by mouth four times daily. Hold if blood pressure is less than 110/60 - gabapentin (NEURONTIN) 800 mg tablet Take 1 tablet by mouth four times daily for 90 days. - tiZANidine (ZANAFLEX) 4 mg tablet Take 1 tablet by mouth three times a day as needed. - Blood-Glucose Meter,Continuous (DEXCOM G6 HR COORDINATOR) misc 1 Each once daily. - Blood-Glucose Transmitter (DEXCOM G6 TRANSMITTER) jaguar 1 Each once daily. - hydroCHLOROthiazide 25 mg tablet Take 1 tablet by mouth once daily. - ondansetron orally disintegrating (ZOFRAN ODT) 8 mg disintegrating tablet Take 1 tablet by mouth every 8 hours as needed for nausea/vomiting. - omeprazole (PRILOSEC) 40 mg capsule Take 1 capsule by mouth two times a day. - blood sugar diagnostic ([employer]UCH VERIO TEST STRIPS) test strip 1 Strip four times daily. Use as instructed - fluticasone-salmeterol HFA (ADVAIR HFA) 230-21 mcg/actuation inhaler Inhale 2 Puffs as instructed two times a day. - loratadine (CLARITIN) 10 mg tablet Take 1 tablet by mouth once daily. - albuterol HFA (PROVENTIL HFA, VENTOLIN HFA) 90 mcg/actuation inhaler Inhale 2 Puffs as instructed every 4 hours as needed for wheezing/shortness of breath. - CPAP/BIPAP/OTHER Type .CPAPSettings into a note to see current settings/supplies/DME information. Problem List As Of Date 12/15/2024 Noted Resolved Uncontrolled type 2 diabetes mellitus with hype*08/28/2022 Chronic midline low back pain with sciatica [M5*08/28/2022 Chronic obstructive lung disease (HCC) [J44.9] 10/18/2022 11/05/2022 Chronic obstructive pulmonary disease, unspecif*11/30/2021 Hyperlipidemia, unspecified [E78.5] 06/15/2021 Tobacco use [Z72.0] 11/05/[address] scan, kidney [R93.429] 11/05/2022 Dyspepsia [R10.13] 02/21/2023 Epigastric pain [R10.13] 02/21/2023 Right upper quadrant abdominal pain [R10.11] 02/21/2023 Chronic gastritis without bleeding [K29.50] 03/12/2023 Gastric wall thickening [K31.89] 03/12/2023 Primary hypertension [I10] 06/11/2023 Neuropathy [G62.9] 06/11/2023 Back pain with history of spinal surgery [M54.9*06/11/2023 FRANCISCO (obstructive sleep apnea) [G47.33] 06/11/2023 DM gastroparesis (HCC) [E11.43, K31.84] 07/04/2023 Abdominal bloating [R14.0] 10/13/2023 Obesity [E66.9] 10/13/2023 Diagnosed: 10/13/2023 Postlaminectomy syndrome of lumbar region [M96.*10/31/2022 Diagnosed: 10/13/2023 Sciatica [M54.30] 11/18/2022 Diagnosed: 10/13/2023 Fall at home, initial encounter [W19.XXXA, Y92.*11/26/2023 12/04/2023 Nicotine use disorder, F17.2 [F17.200] 11/28/2023 Osteoporosis [M81.0] 08/20/2024 Closed displaced comminuted fracture of shaft o*11/08/2024 Presence of right artificial hip joint [Z96.641]11/08/2024 Encounter Status:Closed by EDEN BRITO on 12/15/24 CNCO Observed: 12/15/2024 12:00 AM Status: COM PLETED Source: [facility] Letter Text CNCO Observed: 12/08/2024 12:00 AM Status: COM PLETED Source: [facility] Letter Text CNPN Observed: 12/08/2024 12:00 AM Status: COMPLETED Source: [facility] Telephone ([facility]) NIKKIE BUCK ([id number]) 1965 F Date Time Provider Department 12/08/24 RON MESA [facility] During your visit today, we recorded the following information about you: Eden Brito 12/08/2024 9:12 AM Signed No Show Documentation iNkkie Buck no showed for an appointment on 12/07/24 with Ron Mesa APRN.REFRIGERATING ENGINEER at 11:45. She was scheduled for follow up. I called and LVM for the patient regarding her missed appointment. Nikkie stated the reason that she missed her appointment was because na . Resources discussed/offered to patient: na No show determined to be fault of patient: N/A This is the patients first no show in the last 12 months. Patient was rescheduled for na. Letter mailed : Yes Is this the Third or Fourth "No Show"? No dEen Brito December 08, 2024 9:11 AM Allergies As of Date: 12/08/2024 Noted Allergy Reaction DULOXETINE 06/15/2021 7 - Swelling 14 - Other: See Comments Comments: Other reaction(s): swelling Other reaction(s): Unknown Other reaction(s): swelling NSAIDS (NON-STEROIDAL ANTI-INFLAM*08/15/2020 8 - GI Upset Comments: Other reaction(s): GI Upset Other reaction(s): cramping, GI Upset, Other (See Comments), Upset Stomach Severe stomach pain Other reaction(s): GI Upset PENICILLINS 08/15/2020 2 - Rash 14 - Other: See Comments Comments: Other reaction(s): GI Upset, hives, horrible taste in mouth Other reaction(s): GI Upset, GI Upset, horrible taste in mouth, leaves a bad taste in her mouth., NEEDS FOLLOW-UP Other reaction(s): GI Upset, hives, horrible taste in mouth PREGABALIN 08/15/2020 7 - Swelling 14 - Other: See Comments 16 - Unknown Comments: Other reaction(s): swelling, Swelling Other reaction(s): Swelling, Unknown Other reaction(s): swelling, Swelling AMLODIPINE 06/22/2024 5 - Intolerance Comments: leg swelling at 10 mg CELEBREX (CELECOXIB) 08/09/2024 5 - Intolerance Comments: feet and leg swelling PENICILLIN G 11/11/2021 8 - GI Upset IBUPROFEN 11/11/2021 8 - GI Upset Comments: Vomiting cramping TYLENOL (ACETAMINOPHEN) 10/27/2022 8 - GI Upset Date Reviewed: 12/03/2024 Reviewed by: Charis Siu RN - Fully Assessed Reason for Visit: No Show (Missed #1) [Other] Prescriptions as of 12/08/2024 - oxyCODONE IR (ROXICODONE) 5 mg immediate release tablet Take 1 tablet by mouth four times a day as needed for pain for up to 7 days. Patient should start on December 08, 2024. - sucralfate (CARAFATE) 1 gram tablet Take 1 tablet by mouth two times a day for 14 days. - insulin glargine 100 unit/mL (3 mL) Inject 27 Units subcutaneously daily at bedtime. - polyethylene glycol 3350 17 gram/dose powder Take 17 g by mouth once daily as needed for constipation. - Cholecalciferol, Vitamin D3, 50 mcg (2,000 unit) cap Take 1 capsule by mouth once daily. - Insulin Willow, Disposable, (BD ULTRA-FINE PADMINI PEN NEEDLE) 32 gauge x 5/32" 1 Each three times a day. - Blood-Glucose Sensor (DEXCOM G6 SENSOR) jaguar 3 Each every 10 days. - empagliflozin (JARDIANCE) 10 mg tablet Take 1 tablet by mouth daily with breakfast. - losartan (COZAAR) 100 mg tablet Take 1 tablet by mouth once daily. - hydrALAZINE (APRESOLINE) 50 mg tablet Take 1 tablet by mouth four times daily. Hold if blood pressure is less than 110/60 - gabapentin (NEURONTIN) 800 mg tablet Take 1 tablet by mouth four times daily for 90 days. - tiZANidine (ZANAFLEX) 4 mg tablet Take 1 tablet by mouth three times a day as needed. - Blood-Glucose Meter,Continuous (DEXCOM G6 HR COORDINATOR) misc 1 Each once daily. - Blood-Glucose Transmitter (DEXCOM G6 TRANSMITTER) jaguar 1 Each once daily. - hydroCHLOROthiazide 25 mg tablet Take 1 tablet by mouth once daily. - ondansetron orally disintegrating (ZOFRAN ODT) 8 mg disintegrating tablet Take 1 tablet by mouth every 8 hours as needed for nausea/vomiting. - omeprazole (PRILOSEC) 40 mg capsule Take 1 capsule by mouth two times a day. - blood sugar diagnostic ([employer] VERIO TEST STRIPS) test strip 1 Strip four times daily. Use as instructed - fluticasone-salmeterol HFA (ADVAIR HFA) 230-21 mcg/actuation inhaler Inhale 2 Puffs as instructed two times a day. - loratadine (CLARITIN) 10 mg tablet Take 1 tablet by mouth once daily. - albuterol HFA (PROVENTIL HFA, VENTOLIN HFA) 90 mcg/actuation inhaler Inhale 2 Puffs as instructed every 4 hours as needed for wheezing/shortness of breath. - CPAP/BIPAP/OTHER Type .CPAPSettings into a note to see current settings/supplies/DME information. - insulin lispro (HUMALOG KWIKPEN) 100 unit/mL Inject 8 Units subcutaneously three times a day before meals. Taking as needed Problem List As Of Date 12/08/2024 Noted Resolved Uncontrolled type 2 diabetes mellitus with hype*08/28/2022 Chronic midline low back pain with sciatica [M5*08/28/2022 Chronic obstructive lung disease (HCC) [J44.9] 10/18/2022 11/05/2022 Chronic obstructive pulmonary disease, unspecif*11/30/2021 Hyperlipidemia, unspecified [E78.5] 06/15/2021 Tobacco use [Z72.0] 11/05/[address] scan, kidney [R93.429] 11/05/2022 Dyspepsia [R10.13] 02/21/2023 Epigastric pain [R10.13] 02/21/2023 Right upper quadrant abdominal pain [R10.11] 02/21/2023 Chronic gastritis without bleeding [K29.50] 03/12/2023 Gastric wall thickening [K31.89] 03/12/2023 Primary hypertension [I10] 06/11/2023 Neuropathy [G62.9] 06/11/2023 Back pain with history of spinal surgery [M54.9*06/11/2023 FRANCISCO (obstructive sleep apnea) [G47.33] 06/11/2023 DM gastroparesis (HCC) [E11.43, K31.84] 07/04/2023 Abdominal bloating [R14.0] 10/13/2023 Obesity [E66.9] 10/13/2023 Diagnosed: 10/13/2023 Postlaminectomy syndrome of lumbar region [M96.*10/31/2022 Diagnosed: 10/13/2023 Sciatica [M54.30] 11/18/2022 Diagnosed: 10/13/2023 Fall at home, initial encounter [W19.XXXA, Y92.*11/26/2023 12/04/2023 Nicotine use disorder, F17.2 [F17.200] 11/28/2023 Osteoporosis [M81.0] 08/20/2024 Closed displaced comminuted fracture of shaft o*11/08/2024 Presence of right artificial hip joint [Z96.641]11/08/2024 Encounter Status:Closed by EDEN BRITO on 12/08/24 ANES POSTPROC EVAL Observed: 12/03/2024 3:31 PM Status: COMPLETED Source: [facility] HNO ID: [id number] Author: KARI DEAN MD Service: ? Author Type: Anesthesiologist Type: Anesthesia Postprocedure Evaluation Filed: 12/03/2024 15:31 Note Text: POST ANESTHESIA EVALUATION NOTE : 1965 Procedure Summary Date: 12/03/24 Room / Location: Gastroenterology Anesthesia Start: 1314 Anesthesia Stop: 141 Procedure: EGD - THERAPEUTIC, EUS, OR TUBE INTERVENTIONS Diagnosis: Gastroparesis Pain of upper abdomen (gastric per oral endoscopic myotomy) Scheduled Providers: Gertrude Hinojosa MD; Kari Dean MD; Gordon Land APRN.CAR SALTER Responsible Provider: Kari Dean MD Anesthesia Type: general ASA Status: 3 Anesthesia Type: general Airway Type: ETT Last Vitals Vitals Value Taken Time BP 151/68 12/03/24 1450 Temp 36 ?C (96.8 ?F) 12/03/24 1428 HR SpO2 68 12/03/24 1455 Resp 18 12/03/24 1450 SpO2 96 % 12/03/24 1455 Vitals shown include unfiled device data. Post Anesthesia Patient Status Patient Evaluation: PACU. PACU/ICU Patient Condition: stable. Neurological Status: aware and responsive. Pulmonary Status: breathing comfortably on supplemental oxygen Airway Control: returned to baseline unsupported. Cardiovascular Status: stable. Pain Management: clinically adequate Postoperative Hydration: acceptable. Intraoperative Events: no significant anesthesia events Post Operative Nausea/Vomiting Status: no significant post operative nausea or vomiting Recommendation: continue current plan of care and further care per PACU/ICU/floor team. Anesthesia Observations No Documentation SIGNATURE: Kari Dean MD PATIENT NAME: Nikkie Buck DATE: December 03, 2024 TIME: 3:31 PM CSN: [id number] NURSING PROG Observed: 12/03/2024 3:26 PM Status: COMPLETED Source: [facility] HNO ID: [id number] Author: CHARIS SIU RN Service: ? Author Type: Registered Nurse Type: Nursing Progress Note Filed: 12/03/2024 15:30 Note Text: @1420 Dr. Jones Dean notified that patient has a blood sugar of 69. Patient is allowed to eat. Will have patient eat and recheck sugar. 1457 Patients blood sugar is now 86. Patient okay for discharge. NURSING PROG Observed: 12/03/2024 2:29 PM Status: COMPLETED Source: [facility] HNO ID: [id number] Author: CHARIS SIU RN Service: ? Author Type: Registered Nurse Type: Nursing Progress Note Filed: 12/03/2024 14:30 Note Text: AMBULATORY PATIENT EDUCATION NOTE TOPIC: GI PROCEDURES: Esophagogastroduodenoscopy(EGD) with or without biopies based on clinical findings, removal of polyps or lesions READINESS TO LEARN INSTRUCTION PROVIDED TO: Patient and family member COGNITIVE ABILITY: Alert and oriented PTED MOTIVATION TO LEARN: Interested FAMILY SUPPORT: High - Very involved in pt care IPATIENT LEARNS BEST BY: Individual Instruction Written Instruction - Hand-outs Verbal Instruction FACTORS AFFECTING LEARNING: None PHYSICAL LIMITATIONS AFFECTING LEARNING: None LEARNING RESPONSE METHOD OF INSTRUCTION: Individual instruction PATIENT / FAMILY RESPONSE: Verbalizes understanding of: WORSENING CONDITION-Signs and symptoms of a worsening condition that warrant a call to the physician FOLLOW-UP PLAN: Patient instructed to call with any further issues Recommend - Recommend continued instruction and follow up as directed Contact information given. SUPPLEMENTAL MATERIAL: Procedure Discharge Instructions REFERRAL (RECOMMENDATION): None Electronically Signed By: VERONICA Cutler PROCEDURE NOTE Observed: 12/03/2024 1:31 PM Status: COMPLETED Source: [facility] HNO ID: [id number] Author: INDY UP APRN.CAR SALTER Service: ? Author Type: Nurse Horse Racetrack Manager Type: Anesthesia Procedure Notes Filed: 12/03/2024 13:33 Note Text: ANESTHESIOLOGY PROCEDURE NOTE Airway General Information Procedure Start Time/Medication Administration: 12/03/2024 1:23 PM Procedure End Time: 12/03/2024 1:23 PM Patient location during procedure: OR Timeout Performed Pre-procedure: timeout performed Consent Obtained: Yes Patient identity confirmed: arm band, care seam steamer and patient Staffing Anesthesiologist: Kari Dean MD CAR SALTER: Indy Up APRN.CAR SALTER Performed by: anesthesiologist and CAR SALTER Indications and Patient Condition Indications for airway management: anesthesia and airway protection Preoxygenated: yes anesthesia circuit Patient position: sniffing Method: asleep Final Airway Details Final airway type: endotracheal airway Final Endotracheal Airway: ETT Cuffed: yes Successful intubation technique: video laryngoscopy Devices used: Banks Endotracheal tube insertion site: oral Blade size: #3 ETT size (mm): 7.0 Measured from: lips Measurement (cm): 22 Placement verified by: chest auscultation and capnometry Cormack-Lehane Classification: grade I - full view of glottis Number of attempts at approach: 1 SIGNATURE: Indy Up APRN.CRNA PATIENT NAME: Nikkie Buck DATE: December 03, 2024 TIME: 1:31 PM CSN: [id number] ANES PRE-OP Observed: 12/03/2024 1:13 PM Status: COMPLETED Source: [facility] HNO ID: [id number] Author: KARI DEAN MD Service: ? Author Type: Anesthesiologist Type: Anesthesia Preprocedure Evaluation Filed: 12/03/2024 13:14 Note Text: ANESTHESIOLOGY DAY OF SURGERY NOTE : 1965 Procedure Information Date/Time: 12/03/24 1300 Scheduled providers: Gertrude Hinojosa MD; Kari Dean MD; Indy Up APRN.CAR SALTER Procedure: EGD - THERAPEUTIC, EUS, OR TUBE INTERVENTIONS Location: Gastroenterology Estimated body mass index is 27.93 kg/m? as calculated from the following: Height as of this encounter: 152.4 cm (5'). Weight as of this encounter: 64.9 kg (143 lb). Most recent hematocrit and potassium results: Hematocrit 40.1 04/22/2024 Potassium 5.5 09/22/2024 Relevant Problems ANESTHESIA (+) FRANCISCO (obstructive sleep apnea) CARDIO (+) Primary hypertension ENDO (+) Uncontrolled type 2 diabetes mellitus with hyperglycemia (HCC) PULMONARY (+) Chronic obstructive pulmonary disease, unspecified (HCC) (+) FRANCISCO (obstructive sleep apnea) I - PHYSICAL EVALUATION AIRWAY Patient intubated: No. Tracheostomy tube not present Mallampati: III. TM distance: >3 FB. Neck ROM: full ROM without neurological symptoms. Mouth opening: adequate. Short neck: no. Thick neck: no Christy present: no Lip Bite Test: II DENTAL Dental findings: missing tooth/teeth. II - ANESTHESIA PLAN ASA Score: 3 Anesthetic Plan: general Airway type: ETT The patient is a current smoker. NPO Status: adequate Beta Amita Monitoring Plan Monitoring plan: standard ASA. Post Procedure Analgesic Plan Postoperative analgesic plan: multimodal analgesia and parenteral or oral opioids. Informed Consent Anesthetic risks, benefits, alternatives, personnel and consent discussed: yes. Patient / Responsible Republican agrees to proceed: yes Patient / Surrogate agrees to blood products: Yes Vitals Value Taken Time BP 113/57 12/03/24 1228 Pulse 65 12/03/24 1228 Resp 18 12/03/24 1228 Temp 36 ?C (96.8 ?F) 12/03/24 1228 SpO2 93 % 12/03/24 1228 Outpatient Medications as of 12/03/2024 Medication Sig oxyCODONE IR (ROXICODONE) 5 mg immediate release tablet Take 1 tablet by mouth four times a day as needed for pain for up to 7 days. Patient should start on December 01, 2024. insulin glargine 100 unit/mL (3 mL) Inject 27 Units subcutaneously daily at bedtime. polyethylene glycol 3350 17 gram/dose powder Take 17 g by mouth once daily as needed for constipation. Cholecalciferol, Vitamin D3, 50 mcg (2,000 unit) cap Take 1 capsule by mouth once daily. Insulin Willow, Disposable, (BD ULTRA-FINE PADMINI PEN NEEDLE) 32 gauge x 5/32" 1 Each three times a day. Blood-Glucose Sensor (DEXCOM G6 SENSOR) jaguar 3 Each every 10 days. empagliflozin (JARDIANCE) 10 mg tablet Take 1 tablet by mouth daily with breakfast. losartan (COZAAR) 100 mg tablet Take 1 tablet by mouth once daily. hydrALAZINE (APRESOLINE) 50 mg tablet Take 1 tablet by mouth four times daily. Hold if blood pressure is less than 110/60 gabapentin (NEURONTIN) 800 mg tablet Take 1 tablet by mouth four times daily for 90 days. tiZANidine (ZANAFLEX) 4 mg tablet Take 1 tablet by mouth three times a day as needed. Blood-Glucose Meter,Continuous (DEXCOM G6 HR COORDINATOR) misc 1 Each once daily. Blood-Glucose Transmitter (DEXCOM G6 TRANSMITTER) jaguar 1 Each once daily. hydroCHLOROthiazide 25 mg tablet Take 1 tablet by mouth once daily. ondansetron orally disintegrating (ZOFRAN ODT) 8 mg disintegrating tablet Take 1 tablet by mouth every 8 hours as needed for nausea/vomiting. omeprazole (PRILOSEC) 40 mg capsule Take 1 capsule by mouth two times a day. blood sugar diagnostic ([employer] VERIO TEST STRIPS) test strip 1 Strip four times daily. Use as instructed fluticasone-salmeterol HFA (ADVAIR HFA) 230-21 mcg/actuation inhaler Inhale 2 Puffs as instructed two times a day. (Patient not taking: Reported on 10/29/2024) loratadine (CLARITIN) 10 mg tablet Take 1 tablet by mouth once daily. albuterol HFA (PROVENTIL HFA, VENTOLIN HFA) 90 mcg/actuation inhaler Inhale 2 Puffs as instructed every 4 hours as needed for wheezing/shortness of breath. CPAP/BIPAP/OTHER Type .CPAPSettings into a note to see current settings/supplies/DME information. (Patient not taking: Reported on 10/29/2024) insulin lispro (HUMALOG KWIKPEN) 100 unit/mL Inject 8 Units subcutaneously three times a day before meals. Taking as needed Facility-Administered Medications as of 12/03/2024 Medication Dose Route Frequency lidocaine (PF) 10 mg/mL (1 %) 1-2 mg injection (XYLOCAINE) 0.1-0.2 mL INTRADERMAL PRN [COMPLETED] clindamycin iv piggyback 600 mg in D5W 50 mL (CLEOCIN) 600 mg INTRAVENOUS ONCE I have interviewed and examined the patient. I have reviewed the medical record and/or the pre-anesthesia evaluation, pertinent labs, and test results. This contains updated information obtained within 48 hours of Surgery/Procedure. SIGNATURE: Kari Dean MD PATIENT NAME: Nikkie Buck DATE: December 03, 2024 TIME: 1:13 PM CSN: [id number] UPPER GI ENDOSCOPY Observed: 12/03/2024 1:07 PM Status: C Source: [facility] Q3 Patient Name: Nikkie Buck Procedure Date: 12/03/2024 1:07 PM Date of : 1965 Admit Type: Outpatient Age: 58 Gender: Female Note Status: Mystery Shopper Override Attending MD: Gertrude Hinojosa , , [id number] Procedure: Upper GI endoscopy Indications: gastric per oral endoscopic myotomy for therapy for gastroparesis Providers: Gertrude Hinojosa Patient Profile: This is a 58 year old female. Refer to note in patient chart for documentation of history and physical. Referring Physician: Blade Gonzales MD (Referring MD) Medicines: General Anesthesia Complications: No immediate complications. Requesting Provider: Procedure: Pre-Anesthesia Assessment: - Prior to the procedure, a History and Physical was performed, and patient medications and allergies were reviewed. The patient is competent. The risks and benefits of the procedure and the sedation options and risks were discussed with the patient. All questions were answered and informed consent was obtained. Patient identification and proposed procedure were verified by the physician, the nurse and the hi teacher in the pre-procedure area in the endoscopy suite. Mental Status Examination: alert and oriented. Airway Examination: normal oropharyngeal airway and neck mobility. Respiratory Examination: clear to auscultation. CV Examination: normal. Prophylactic Antibiotics: The patient requires prophylactic antibiotics per oral pyloromyotomy. Prior Anticoagulants: The patient has taken no anticoagulant or antiplatelet agents. After reviewing the risks and benefits, the patient was deemed in satisfactory condition to undergo the procedure. The anesthesia plan was to use general anesthesia. Immediately prior to administration of medications, the patient was re-assessed for adequacy to receive sedatives. The heart rate, respiratory rate, oxygen saturations, blood pressure, adequacy of pulmonary ventilation, and response to care were monitored throughout the procedure. The physical status of the patient was re-assessed after the procedure. After obtaining informed consent, the endoscope was passed under direct vision. Throughout the procedure, the patient's blood pressure, pulse, and oxygen saturations were monitored continuously. The Endoscope was introduced through the mouth, and advanced to the second part of duodenum. The upper GI endoscopy was accomplished without difficulty. The patient tolerated the procedure well. Moderate Sedation: General anesthesia was administered by the anesthesia team. Findings: The hypopharynx was normal. The Z-line was regular. No gross lesions were noted in the entire examined stomach. Clear fluid was found in the gastric body. No gross lesions were noted in the duodenal bulb, in the first portion of the duodenum and in the second portion of the duodenum. Preparations were made for gastric peroral endoscopic myotomy (G-POEM). Mucosotomy followed by myotomy were performed in a lesser curvature orientation. First, a submucosal injection of a solution of Blue Boost was used to lift the mucosa at the site of the initial mucosotomy. The initial mucosal incision was made transversely at approximately 2.0 cm proximal to the pylorus using a TT (Triangular Tip) Knife. Next, the endoscope with a clear cap was used to enter into the submucosal tunnel. The submucosal tunnel was then further created by dissection of the submucosal fibers distally to the pyloric ring. A full thickness myotomy was then performed beginning at the pylorus using a TT (Triangular Tip) Knife. The myotomy was extended to 1.0 cm proximal to the pylorus. Intra procedure bleeding was minimal. Cautery was used effectively for hemostasis. Hemostasis was successfully accomplished throughout the procedure. After completion of the myotomy, examination of the stomach and duodenum showed no inadvertent mucosotomy. The myotomy was successfully performed. The muscular division was complete. There was no resistance to passage of the endoscope through the pylorus, showing excellent initial results from the myotomy. The mucosal entrance to the submucosal tunnel was closed using endoscopic clips. After G-POEM and endoscope removal, the patient was examined. The patient's abdomen was nondistended. Impression: - Normal hypopharynx. - Z-line regular. - No gross lesions in the entire stomach. - Clear gastric fluid. - No gross lesions in the duodenal bulb, in the first portion of the duodenum and in the second portion of the duodenum. - Gastric peroral endoscopic myotomy (G-POEM) was performed. - No specimens collected. Estimated Blood Loss: Estimated blood loss was minimal. Recommendation: - Patient has a contact number available for emergencies. The signs and symptoms of potential delayed complications were discussed with the patient. Return to normal activities tomorrow. Written discharge instructions were provided to the patient. - Use Prilosec (omeprazole) 40 mg PO daily for 2 weeks. - Use sucralfate tablets 1 gram PO BID for 2 weeks. Procedure Code(s): --- Professional --- 65309 02448, 59 CPT copyright 2020 [employer]. All rights reserved. Attending Participation: I personally performed the entire procedure. Scope In: 1:27:16 PM Scope Out: 2:01:[address] Gertrude Hinojosa, 12/03/2024 2:13:18 PM This report has been signed electronically by Gertrude Hinojosa Number of Addenda: 0 Note Initiated On: 12/03/2024 1:07 PM NURSING PROG Observed: 12/03/2024 1:03 PM Status: COMPLETED Source: [facility] HNO ID: [id number] Author: ZOILA SINGLETON RN Service: Gastroenterology Author Type: Registered Nurse Type: Nursing Progress Note Filed: 12/03/2024 13:03 Note Text: Patient chewing gum Dr Hinojosa aware HISTORY PHYSICAL Observed: 12/03/2024 1:00 PM Status: COMPLETED Source: [facility] HNO ID: [id number] Author: GERTRUDE HINOJOSA MD Service: General Surgery Author Type: Resident Type: H&P Filed: 12/05/2024 21:36 Note Text: Attestation signed by Gertrude Hinojosa MD at 12/05/2024 9:36 PM Gertrude Hinojosa MD ENDOSCOPY HISTORY AND PHYSICAL EXAM Nikkie Buck [id number] Subjective HPI: This is a 58 year old female with symptoms notable for post-prandial bloating and abdominal numbness AND tingling. Initial concern for MALS although symptoms may be more consistent with delayed gastric emptying/ gastroparesis with who presents for endoscopy and POEM for gastroparesis management. PAST ANESTHESIA HISTORY: No history of adverse event PAST MEDICAL HISTORY Diagnosis Date Abdominal bloating 10/13/2023 Arthritis COPD (chronic obstructive pulmonary disease) (HCC) Diabetes (HCC) Hypertension Median arcuate ligament syndrome (HCC) Sleep apnea PAST SURGICAL HISTORY Procedure Laterality Date ANKLE SURGERY HX Left BACK SURGERY HX Bilateral DELIVERY ONLY EGD W/O BRSH SPEC VARICIES INJ 02/21/2023 GI TRANSIT AND PRES SARAH WIRELESS CAPSULE W/INTERP 09/12/2023 Smart Pill, Dr. Vega REVISE MEDIAN N/CARPAL TUNNEL SURG Bilateral TOTAL HIP REPLACEMENT Right VAGINAL HYSTERECTOMY Prior to Admission medications as of 10/29/24 1501 Medication Sig Last Dose Taking oxyCODONE IR (ROXICODONE) 5 mg immediate release tablet Take 1 tablet by mouth four times a day as needed for pain for up to 7 days. Patient should start on December 01, 2024. insulin glargine 100 unit/mL (3 mL) Inject 27 Units subcutaneously daily at bedtime. polyethylene glycol 3350 17 gram/dose powder Take 17 g by mouth once daily as needed for constipation. Cholecalciferol, Vitamin D3, 50 mcg (2,000 unit) cap Take 1 capsule by mouth once daily. Insulin Willow, Disposable, (BD ULTRA-FINE PADMINI PEN NEEDLE) 32 gauge x 5/32" 1 Each three times a day. Blood-Glucose Sensor (DEXZerve G6 SENSOR) jaguar 3 Each every 10 days. empagliflozin (JARDIANCE) 10 mg tablet Take 1 tablet by mouth daily with breakfast. losartan (COZAAR) 100 mg tablet Take 1 tablet by mouth once daily. hydrALAZINE (APRESOLINE) 50 mg tablet Take 1 tablet by mouth four times daily. Hold if blood pressure is less than 110/60 gabapentin (NEURONTIN) 800 mg tablet Take 1 tablet by mouth four times daily for 90 days. tiZANidine (ZANAFLEX) 4 mg tablet Take 1 tablet by mouth three times a day as needed. Blood-Glucose Meter,Continuous (DEXCOM G6 HR COORDINATOR) misc 1 Each once daily. Blood-Glucose Transmitter (DEXCOM G6 TRANSMITTER) jaguar 1 Each once daily. hydroCHLOROthiazide 25 mg tablet Take 1 tablet by mouth once daily. ondansetron orally disintegrating (ZOFRAN ODT) 8 mg disintegrating tablet Take 1 tablet by mouth every 8 hours as needed for nausea/vomiting. omeprazole (PRILOSEC) 40 mg capsule Take 1 capsule by mouth two times a day. blood sugar diagnostic ([employer]UCH VERIO TEST STRIPS) test strip 1 Strip four times daily. Use as instructed fluticasone-salmeterol HFA (ADVAIR HFA) 230-21 mcg/actuation inhaler Inhale 2 Puffs as instructed two times a day. Patient not taking: Reported on 10/29/2024 loratadine (CLARITIN) 10 mg tablet Take 1 tablet by mouth once daily. albuterol HFA (PROVENTIL HFA, VENTOLIN HFA) 90 mcg/actuation inhaler Inhale 2 Puffs as instructed every 4 hours as needed for wheezing/shortness of breath. CPAP/BIPAP/OTHER Type .CPAPSettings into a note to see current settings/supplies/DME information. Patient not taking: Reported on 10/29/2024 insulin lispro (HUMALOG KWIKPEN) 100 unit/mL Inject 8 Units subcutaneously three times a day before meals. Taking as needed ALLERGIES Allergen Reactions Duloxetine Swelling, Other: See Comments Other reaction(s): swelling Other reaction(s): Unknown Other reaction(s): swelling Nsaids (Non-Steroid* GI Upset Other reaction(s): GI Upset Other reaction(s): cramping, GI Upset, Other (See Comments), Upset Stomach Severe stomach pain Other reaction(s): GI Upset Penicillins Rash, Other: See Comments Other reaction(s): GI Upset, hives, horrible taste in mouth Other reaction(s): GI Upset, GI Upset, horrible taste in mouth, leaves a bad taste in her mouth., NEEDS FOLLOW-UP Other reaction(s): GI Upset, hives, horrible taste in mouth Pregabalin Swelling, Other: See Comments, Unknown Other reaction(s): swelling, Swelling Other reaction(s): Swelling, Unknown Other reaction(s): swelling, Swelling Amlodipine Intolerance leg swelling at 10 mg Celebrex [Celecoxib] Intolerance feet and leg swelling Penicillin G GI Upset Ibuprofen GI Upset Vomiting cramping Tylenol [Acetaminop* GI Upset Objective General: awake, in no acute distress HEENT: normocephalic, atraumatic Pulm: normal respiratory effort on RA, clear, bilateral chest wall rise CV: regular rate and rhythm Abdomen: soft, non-tender, non-distended Neuro: alert, oriented, follows commands Ext: warm and well perfused, no edema Assessment/Plan ASA Class: Active Problems: * No active hospital problems. * Resolved Problems: * No resolved hospital problems. * Medication and Non-Pharmacologic VTE Prophylaxis/Anticoagulants VTE Prophylaxis: not indicated for procedure Provisional Diagnosis/Treatment Plan: EGD and G-POEM under sedation Consent has been signed Gisella Kelley MD 12/02/2024 3:07 PM NURSING PROG Observed: 12/03/2024 12:28 PM Status: COMPLETED Source: [facility] HNO ID: [id number] Author: ZOLIA SINGLETON RN Service: Gastroenterology Author Type: Registered Nurse Type: Nursing Progress Note Filed: 12/03/2024 12:31 Note Text: PRE OP LEARNING ASSESSMENT PROCEDURE/SURGERY: GI PROCEDURES: EGD READINESS TO LEARN COGNITIVE ABILITY: Alert and oriented MOTIVATION TO LEARN: Interested FAMILY SUPPORT: Unable to assess - Family not present PATIENT LEARNS BEST BY: Verbal Instruction FACTORS AFFECTING LEARNING: None PHYSICAL LIMITATIONS AFFECTING LEARNING: None Electronically Signed By: Zoila Singleton RN In Department: GASTROENTEROLOGY NURSING PROG Observed: 11/26/2024 3:23 PM Status: COMPLETED Source: [facility] HNO ID: [id number] Author: DENISE CRUMP RN Service: ? Author Type: Registered Nurse Type: Nursing Progress Note Filed: 11/26/2024 15:24 Note Text: Attempted to reach the patient at the contact number that they provided [phone] (home) . Unable to speak with patient so without identifying the patient the following information was left on their voice mail: Date of procedure, location and report time A message was left informing the patient/patient hospital insurance representative they must have a responsible adult accompany them to their procedure; and remain in the endoscopy area until they are discharged. Failure to have a responsible adult accompany the patient to their procedure appointment prevents the use of sedation or anesthesia for their procedure; and can result in cancellation of the procedure NPO instructions were reviewed. Instructions to contact their primary care provider regarding their medications and which medications to stop in preparation for their procedure Instructions to completely read and follow the written instructions that they recieved regarding their procedure. Number to call with questions or concerns [phone] Number to call to cancel their procedure [phone] Denise Crump RN CNPN Observed: 11/24/2024 12:00 AM Status: COMPLETED Source: [facility] Telephone (INTMWS) NIKKIE BUCK ([id number]) 1965 F Date Time Provider Department 11/24/24 RISSA HANKS INTWS During your visit today, we recorded the following information about you: Daphne Menendez LPN 11/24/2024 4:58 PM Signed Patient seen pain management 10/29/24 Ron Mesa and treatment plan was to perform nerve block. This was scheduled for 11/12/24 but patient canceled the procedure. She is asking if there is pain management at [facility]? Would be willing to travel to that facility. Rissa Hanks MD 11/25/2024 11:42 AM Signed There should be pain management in [place] Does a new order need filed? Marleen Mackey 11/25/2024 2:35 PM Signed Contacted patient, she does not want to do any injections. She has pain [facility] phone number [phone] to call for an appointment in [place]. She declines travelling to [place] or [place] Allergies As of Date: 11/24/2024 Noted Allergy Reaction DULOXETINE 06/15/2021 7 - Swelling 14 - Other: See Comments Comments: Other reaction(s): swelling Other reaction(s): Unknown Other reaction(s): swelling NSAIDS (NON-STEROIDAL ANTI-INFLAM*08/15/2020 8 - GI Upset Comments: Other reaction(s): GI Upset Other reaction(s): cramping, GI Upset, Other (See Comments), Upset Stomach Severe stomach pain Other reaction(s): GI Upset PENICILLINS 08/15/2020 2 - Rash 14 - Other: See Comments Comments: Other reaction(s): GI Upset, hives, horrible taste in mouth Other reaction(s): GI Upset, GI Upset, horrible taste in mouth, leaves a bad taste in her mouth., NEEDS FOLLOW-UP Other reaction(s): GI Upset, hives, horrible taste in mouth PREGABALIN 08/15/2020 7 - Swelling 14 - Other: See Comments 16 - Unknown Comments: Other reaction(s): swelling, Swelling Other reaction(s): Swelling, Unknown Other reaction(s): swelling, Swelling AMLODIPINE 06/22/2024 5 - Intolerance Comments: leg swelling at 10 mg CELEBREX (CELECOXIB) 08/09/2024 5 - Intolerance Comments: feet and leg swelling PENICILLIN G 11/11/2021 8 - GI Upset IBUPROFEN 11/11/2021 8 - GI Upset Comments: Vomiting cramping TYLENOL (ACETAMINOPHEN) 10/27/2022 8 - GI Upset Date Reviewed: 10/29/2024 Reviewed by: Ron Mesa APRN.REFRIGERATING ENGINEER - Fully Assessed Reason for Visit: Consult [502] Prescriptions as of 11/25/2024 - polyethylene glycol 3350 17 gram/dose powder Take 17 g by mouth once daily as needed for constipation. - oxyCODONE IR (ROXICODONE) 5 mg immediate release tablet Take 1 tablet by mouth four times a day as needed for pain for up to 7 days. - Cholecalciferol, Vitamin D3, 50 mcg (2,000 unit) cap Take 1 capsule by mouth once daily. - insulin glargine 100 unit/mL (3 mL) Inject 24 Units subcutaneously daily at bedtime. - Insulin Willow, Disposable, (BD ULTRA-FINE PADMINI PEN NEEDLE) 32 gauge x 5/32" 1 Each three times a day. - Blood-Glucose Sensor (DEXCOM G6 SENSOR) jaguar 3 Each every 10 days. - empagliflozin (JARDIANCE) 10 mg tablet Take 1 tablet by mouth daily with breakfast. - losartan (COZAAR) 100 mg tablet Take 1 tablet by mouth once daily. - hydrALAZINE (APRESOLINE) 50 mg tablet Take 1 tablet by mouth four times daily. Hold if blood pressure is less than 110/60 - gabapentin (NEURONTIN) 800 mg tablet Take 1 tablet by mouth four times daily for 90 days. - tiZANidine (ZANAFLEX) 4 mg tablet Take 1 tablet by mouth three times a day as needed. - Blood-Glucose Meter,Continuous (DEXCOM G6 HR COORDINATOR) misc 1 Each once daily. - Blood-Glucose Transmitter (DEXCOM G6 TRANSMITTER) jaguar 1 Each once daily. - hydroCHLOROthiazide 25 mg tablet Take 1 tablet by mouth once daily. - ondansetron orally disintegrating (ZOFRAN ODT) 8 mg disintegrating tablet Take 1 tablet by mouth every 8 hours as needed for nausea/vomiting. - omeprazole (PRILOSEC) 40 mg capsule Take 1 capsule by mouth two times a day. - blood sugar diagnostic ([employer]UCH VERIO TEST STRIPS) test strip 1 Strip four times daily. Use as instructed - fluticasone-salmeterol HFA (ADVAIR HFA) 230-21 mcg/actuation inhaler Inhale 2 Puffs as instructed two times a day. - loratadine (CLARITIN) 10 mg tablet Take 1 tablet by mouth once daily. - albuterol HFA (PROVENTIL HFA, VENTOLIN HFA) 90 mcg/actuation inhaler Inhale 2 Puffs as instructed every 4 hours as needed for wheezing/shortness of breath. - CPAP/BIPAP/OTHER Type .CPAPSettings into a note to see current settings/supplies/DME information. - insulin lispro (HUMALOG KWIKPEN) 100 unit/mL Inject 8 Units subcutaneously three times a day before meals. Taking as needed Problem List As Of Date 11/24/2024 Noted Resolved Uncontrolled type 2 diabetes mellitus with hype*08/28/2022 Chronic midline low back pain with sciatica [M5*08/28/2022 Chronic obstructive lung disease (HCC) [J44.9] 10/18/2022 11/05/2022 Chronic obstructive pulmonary disease, unspecif*11/30/2021 Hyperlipidemia, unspecified [E78.5] 06/15/2021 Tobacco use [Z72.0] 11/05/[address] scan, kidney [R93.429] 11/05/2022 Dyspepsia [R10.13] 02/21/2023 Epigastric pain [R10.13] 02/21/2023 Right upper quadrant abdominal pain [R10.11] 02/21/2023 Chronic gastritis without bleeding [K29.50] 03/12/2023 Gastric wall thickening [K31.89] 03/12/2023 Primary hypertension [I10] 06/11/2023 Neuropathy [G62.9] 06/11/2023 Back pain with history of spinal surgery [M54.9*06/11/2023 FRANCISCO (obstructive sleep apnea) [G47.33] 06/11/2023 DM gastroparesis (HCC) [E11.43, K31.84] 07/04/2023 Abdominal bloating [R14.0] 10/13/2023 Obesity [E66.9] 10/13/2023 Diagnosed: 10/13/2023 Postlaminectomy syndrome of lumbar region [M96.*10/31/2022 Diagnosed: 10/13/2023 Sciatica [M54.30] 11/18/2022 Diagnosed: 10/13/2023 Fall at home, initial encounter [W19.XXXA, Y92.*11/26/2023 12/04/2023 Nicotine use disorder, F17.2 [F17.200] 11/28/2023 Osteoporosis [M81.0] 08/20/2024 Closed displaced comminuted fracture of shaft o*11/08/2024 Presence of right artificial hip joint [Z96.641]11/08/2024 Encounter Status:Closed by MARLEEN MACKEY on 11/25/24 PROGRESS Observed: 11/22/2024 11:15 AM Status: COMPLETED Source: [facility] HNO ID: [id number] Author: JESSICA JAVIER RT(Venessa) Service: ? Author Type: Technologist Type: Progress Notes Filed: 11/22/2024 10:52 Note Text: Radiology Service Progress Note PATIENT NAME: Nikkie Buck DATE OF SERVICE: November 22, 2024 TIME: 10:35 AM PATIENT IDENTITY VERIFICATION COMPLETED USING TWO (2) IDENTIFIERS: Name and Date of confirmed by patient verbally. FALL SCREENING: Has the patient had 2 falls in the last year or 1 fall with injury or currently using an Ambulatory Assistive Device (Walker, Cane, Wheelchair, Crutches, etc.)? Yes, Patient High Risk for Falls What interventions were put in place to prevent falls during this visit? Increased Observations by Caregivers PATIENT GENDER DATA: Assigned female at . status: : No status: NO. PATIENT RELEVANT IMPLANT DATA REVIEWED: Not Applicable PATIENT PRESENTS WITH AN IMPLANTABLE OR ATTACHED WHARF TALLY CLERK: No RADIOLOGY DEPARTMENT: Bone Density PERIPHERAL IV DATA: Not applicable SIGNED BY: RT Ismael(R) November 22, 2024 10:35 AM DEPRECATED HGB A1C BLD Collected: 11/22 11:11 AM Status: F Source: [facility] Order Comment: Specimen Type : BLOOD SPECIMEN Ordering Facility: [facility] Address: [address] [place] [address] TYPE CODE TESTS RESULT OUT OF RANGE REFERENCE UNITS LAB 4548-4(LOINC) HbA1c MFr Bld 8.6 High 4.3-5.6 % Result Comment: [employer] guidelines indicate that patients with HgbA1c in the range 5.7-6.4% are at increased risk for development of diabetes, and intervention by lifestyle modification may be beneficial. HgbA1c greater or equal to 6.5% is considered diagnostic of diabetes. LAB 83837-3(LOINC) Est. average glucose Bld gHb Est-mCnc 200 mg/dL Result Comment: eAG: (Estima samy average glucose) is a calculated value from HgbA1c and is hospital insurance representative of the average blood glucose level in the last 2-3 month period. Performed By: #### [id number] # ### [facility] CLIA [id number] [address] [place] [address] [place] BD DXA - AXIAL SKELETON Observed: 2024 10:51 AM Status: F Source: [facility] * * *Final Report* * * DATE OF EXAM: Nov 22 2024 10:51AM WRB 0804 - BD DXA - AXIAL SKELETON / PROCEDURE REASON: Osteoporosis with pathological fracture with routine healing, subsequent encount * * * * Physician Interpretation * * * * EXAMINATION: DXA BONE DENSITOMETRY BD DXA - AXIAL SKELETON PATIENT DEMOGRAPHICS: Age: 58 years, Gender: Female SCANNER INFORMATION: DXA Model: Apsmart - Telormedix C [id number] Date Scanned: 11/22/2024 10:51 AM CLINICAL HISTORY: SCREENING Osteoporosis with pathological fracture with routine healing, subsequent encounter . RISK FACTORS FOR OSTEOPOROSIS AND ASSOCIATED FRACTURES REPORTED BY THIS PATIENT: Please refer to Bone Health Questionnaire in the EMR CURRENT THERAPY: Please refer to Bone Health Questionnaire in the EMR TECHNICAL LIMITATIONS: spine surgery bilateral hip fractures / surgery RESULTS: Left Forearm, Distal 1/3 of Radius: 0.641 g/cm2, T-score -0.9 , Z-score 0.4 No comparison data - the patient has not had a previous bone density in the [facility] or the previous bone density was performed on a different DXA machine (new, updated model or different location) within the [facility]. VERTEBRAL FRACTURE ASSESSMENT Not performed. TRABECULAR BONE ASSESSMENT TBS not performed: No lumbar spine scan IMPRESSION: THE LOWEST T-SCORE IS -0.9 IN THE LEFT FOREARM 1) DIAGNOSIS (based on BMD alone): NORMAL BONE DENSITY - Caution: Medical conditions other than osteoporosis may cause low bone density, such as osteomalacia or renal osteodystrophy. Clinical correlation is necessary. 2) FRACTURE RISK (based on BMD alone) - NOT INCREASED - Caution: Fracture risk may be increased independent of BMD in patients with corticosteroid use, age greater than 65 years, or a history of prior fragility fracture. - FRAX was not calculated: no hip scan performed RECOMMENDATIONS: Follow-up in 2 years or as clinically indicated. Patients that are taking corticosteroids, are transplant recipients or have hyperparathyroidism should have annual follow-up. Follow-up scans should always be done on the same machine for accurate comparison. FOR MORE INFORMATION ABOUT DIAGNOSIS AND TREATMENT: [facility] Osteoporosis and Metabolic Bone Disease:? www.ccf.org/arthritis/osteo National Osteoporosis Foundation:? www.nof.org International Society of Clinical Densitometry www.iscd.org Oracle Programmer Analyst: GWENDOLYN Transcribe Date/Time: Nov 24 2024 10:44A Dictated by : SANDEEP WIN MD This examination was interpreted and the report reviewed and electronically signed by: SANDEEP WIN MD on Nov 24 2024 10:45AM EST [id number] PROGRESS Observed: 11/08/2024 6:45 PM Status: COMPLETED Source: [facility] HNO ID: [id number] Author: RISSA HANKS MD Service: ? Author Type: Physician Type: Progress Notes Filed: 11/08/2024 19:46 Note Text: VIRTUAL VISIT PROGRESS NOTE This is a virtual visit using [employer], Incom Video Visit. It required patient-provider interaction for the medical decision making as documented below. I have communicated my name and active licensure. The patient's identity and physical location were verified at the time of this visit. Either the patient or their legal hospital insurance representative has been informed of the risks and benefits of -- and alternatives to -- treatment through a remote evaluation and consents to proceed with the evaluation remotely. Nikkie Buck is a 58 year old female seen for ongoing pain and wonders about switching to another orthopedic surgeon. Nikkie Buck is a 58-year-old female with a history of bilateral hip fractures, presenting for ongoing pain management and follow-up on orthopedic care. Nikkie reports significant pain and mobility issues following a series of orthopedic events. She initially sustained a left femoral fracture, which was managed with surgical hardware. In June of last year, she experienced a fall resulting in a right hip fracture, necessitating a total right hip replacement. She has been under the care of [facility], but due to insurance changes, she is currently without an orthopedic provider to manage her ongoing issues, including the potential removal of hardware from her left femur. She describes her pain as severe and debilitating, stating, "I'm in so much pain, and I walk like a flipping penguin on stilts." She reports a sensation that the hardware in her left femur is "coming out or coming apart," leading to episodes where her left leg "wants to shoot forward," causing her to fall. She uses a rollator for ambulation and expresses a fear of falling, stating, "I'm terrified I'm going to fall." Nikkie has been managing her pain with oxycodone IR, prescribed to be taken every 8 hours, but reports that the medication is not lasting the full 8 hours. She is seeking an increase in her pain medication dosage and is also attempting to establish care with a pain management clinic in [place]. She has been evaluated by Dr. Gonzáles at the [facility], who advised against immediate hardware removal less than a year since surgery; we discussed suspect due to the risk of re-fracture if the bone has not fully healed. A CT scan was recommended to assess the healing, but her insurance has not yet authorized the scan despite attempts at appeal. Not sure where things are with trying to appeal. Nikkie has a history of osteoporosis, with a previous DEXA scan showing significant bone density loss. She has received two Reclast infusions and is currently taking vitamin D supplements. She reports being able to stand for about 5 minutes before experiencing significant pain and is not currently engaged in physical therapy, believing it would not be beneficial until after potential future surgery. HISTORY REVIEWED (electronic chart updated): PAST MEDICAL HISTORY Diagnosis Date Abdominal bloating 10/13/2023 Arthritis COPD (chronic obstructive pulmonary disease) (HCC) Diabetes (HCC) Hypertension Median arcuate ligament syndrome (HCC) Sleep apnea PAST SURGICAL HISTORY Procedure Laterality Date ANKLE SURGERY HX Left BACK SURGERY HX Bilateral DELIVERY ONLY EGD W/O BRSH SPEC VARICIES INJ 02/21/2023 GI TRANSIT AND PRES SAARH WIRELESS CAPSULE W/INTERP 09/12/2023 Smart Pill, Dr. Vega REVISE MEDIAN N/CARPAL TUNNEL SURG Bilateral TOTAL HIP REPLACEMENT Right VAGINAL HYSTERECTOMY FAMILY HISTORY Problem Relation Age of Onset Hypertension Mother Lung Cancer Mother Cancer Father Lung Cancer Sister Diabetes Sister Stroke Sister Hypertension Paternal Grandmother Diabetes Maternal Uncle Diabetes Paternal Aunt Social History Tobacco Use Smoking status: Every Day Current packs/day: 1.00 Types: Cigarettes Smokeless tobacco: Never Tobacco comments: 3/4's of a pack daily Vaping Use Vaping status: Never Used Substance Use Topics Alcohol use: Never Drug use: Never Current Outpatient Medications Medication Sig oxyCODONE IR (ROXICODONE) 5 mg immediate release tablet Take 1 tablet by mouth every 8 hours as needed for pain for up to 7 days. Patient should start on November 05, 2024. polyethylene glycol 3350 17 gram/dose powder Take 17 g by mouth once daily as needed for constipation. insulin glargine 100 unit/mL (3 mL) Inject 24 Units subcutaneously daily at bedtime. Insulin Willow, Disposable, (BD ULTRA-FINE PADMINI PEN NEEDLE) 32 gauge x 5/32" 1 Each three times a day. Blood-Glucose Sensor (DEXCOM G6 SENSOR) jaguar 3 Each every 10 days. empagliflozin (JARDIANCE) 10 mg tablet Take 1 tablet by mouth daily with breakfast. losartan (COZAAR) 100 mg tablet Take 1 tablet by mouth once daily. hydrALAZINE (APRESOLINE) 50 mg tablet Take 1 tablet by mouth four times daily. Hold if blood pressure is less than 110/60 Cholecalciferol, Vitamin D3, 25 mcg (1,000 unit) cap Take 1 capsule by mouth once daily. gabapentin (NEURONTIN) 800 mg tablet Take 1 tablet by mouth four times daily for 90 days. tiZANidine (ZANAFLEX) 4 mg tablet Take 1 tablet by mouth three times a day as needed. Blood-Glucose Meter,Continuous (DEXCOM G6 HR COORDINATOR) misc 1 Each once daily. Blood-Glucose Transmitter (DEXCOM G6 TRANSMITTER) jaguar 1 Each once daily. hydroCHLOROthiazide 25 mg tablet Take 1 tablet by mouth once daily. ondansetron orally disintegrating (ZOFRAN ODT) 8 mg disintegrating tablet Take 1 tablet by mouth every 8 hours as needed for nausea/vomiting. omeprazole (PRILOSEC) 40 mg capsule Take 1 capsule by mouth two times a day. blood sugar diagnostic (?TOUCH VERIO TEST STRIPS) test strip 1 Strip four times daily. Use as instructed fluticasone-salmeterol HFA (ADVAIR HFA) 230-21 mcg/actuation inhaler Inhale 2 Puffs as instructed two times a day. (Patient not taking: Reported on 10/29/2024) loratadine (CLARITIN) 10 mg tablet Take 1 tablet by mouth once daily. albuterol HFA (PROVENTIL HFA, VENTOLIN HFA) 90 mcg/actuation inhaler Inhale 2 Puffs as instructed every 4 hours as needed for wheezing/shortness of breath. CPAP/BIPAP/OTHER Type .CPAPSettings into a note to see current settings/supplies/DME information. (Patient not taking: Reported on 10/29/2024) insulin lispro (HUMALOG KWIKPEN) 100 unit/mL Inject 8 Units subcutaneously three times a day before meals. Taking as needed No current facility-administered medications for this visit. ALLERGIES Allergen Reactions Duloxetine Swelling, Other: See Comments Other reaction(s): swelling Other reaction(s): Unknown Other reaction(s): swelling Nsaids (Non-Steroid* GI Upset Other reaction(s): GI Upset Other reaction(s): cramping, GI Upset, Other (See Comments), Upset Stomach Severe stomach pain Other reaction(s): GI Upset Penicillins Rash, Other: See Comments Other reaction(s): GI Upset, hives, horrible taste in mouth Other reaction(s): GI Upset, GI Upset, horrible taste in mouth, leaves a bad taste in her mouth., NEEDS FOLLOW-UP Other reaction(s): GI Upset, hives, horrible taste in mouth Pregabalin Swelling, Other: See Comments, Unknown Other reaction(s): swelling, Swelling Other reaction(s): Swelling, Unknown Other reaction(s): swelling, Swelling Amlodipine Intolerance leg swelling at 10 mg Celebrex [Celecoxib] Intolerance feet and leg swelling Penicillin G GI Upset Ibuprofen GI Upset Vomiting cramping Tylenol [Acetaminop* GI Upset REVIEW OF SYSTEMS: As noted in HPI PHYSICAL EXAMINATION: VIDEO EXAM: (if completed, performed via video enabled technology) GENERAL: alert and appropriate, in no distress, well-hydrated, well nourished, happy, smiling, interactive, and appears tired HEAD: normocephalic, no abnormality or lesion noted EYES: no injection and visual acuity is grossly normal RESPIRATORY: breathing non-labored ASSESSMENT and PLAN: # Other chronic postprocedural pain (G89.28) - Chronic pain secondary to previous orthopedic surgeries and fractures. - Current pain management includes oxycodone IR, increased to 4 times daily as needed for better pain control. - Discussed potential side effects of increased dosage, including constipation. - Referral to pain management clinic in [place] initiated for further evaluation and management. - Patient to report back by Friday on effectiveness of increased dosage. # Closed displaced comminuted fracture of shaft of left femur, sequela (S72.276S) - Fracture healing status uncertain; CT scan ordered by Dr. Gonzáles pending insurance authorization. - Patient advised to continue using rollator for mobility support. - Emphasized importance of weight-bearing activities to promote bone healing. - Physical therapy recommended to strengthen surrounding musculature. # S/P right hip fracture (Z87.81) # Presence of right artificial hip joint (Z96.641) - Status post right total hip arthroplasty following fracture in June. - Patient reports altered gait and discomfort; advised continuation of physical therapy to improve muscle strength and gait stability. - Encouraged use of warm clothing and heat application to alleviate discomfort from metal implants in cold weather. # Age related osteoporosis, unspecified pathological fracture presence (M81.0) - Previous DEXA scan in 2021 showed significant osteoporosis with T-scores: left femoral neck -3.3, right femoral neck -3.3, left total hip -1.7, right total hip -2.0. - Patient has received two Reclast infusions, most recent in April 2023. - Ordered repeat DEXA scan to assess current bone density status. - Educated patient on osteoporosis and the importance of weight-bearing exercises to improve bone strength. # Asymptomatic postmenopausal status (Z78.0) - Contributing factor to osteoporosis; management includes vitamin D supplementation and Reclast infusions. # Vitamin D deficiency (E55.9) - Previous levels: August 18.8 ng/mL, September 27.4 ng/mL. - Increased vitamin D supplementation to 2000 IU daily. - Ordered follow-up vitamin D level in two months to assess response to increased dosage. - Patient advised on the importance of maintaining adequate vitamin D levels for bone health. There are no Patient Instructions on file for this visit. I spent a total of 47 minutes on the date of the service which included preparing to see the patient, completing clinical documentation, obtaining and/or reviewing separately obtained history, performing a medically appropriate examination, counseling and educating the patient/family/caregiver, ordering medications, tests, or procedures, independently interpreting results (not separately reported), and communicating results to the patient/family/caregiver Rissa Hanks MD CNOV Observed: 10/29/2024 3:00 PM Status: COMPLETED Source: [facility] FIORNIKKIE Rsoalino ([id number]) 1965 F Date Time Provider Department 10/29/24 3:00 PM [facility] During your visit today, we recorded the following information about you: Pulse Respiration PROGRESS Observed: 10/29/2024 3:00 PM Status: COMPLETED Source: [facility] HNO ID: [id number] Author: RON MESA APRN.HONEY Service: ? Author Type: Nurse Practitioner Type: Progress Notes Filed: 10/30/2024 19:20 Note Text: [facility] Today's Date: 10/29/2024 Name: Nikkie Buck : 1965 Purpose: New Patient Consultation Chief complaint: hip and back pain Referring Clinician: Rissa Hanks MD Pertinent Past Medical History: sleep apnea, diabetes, Median arcuate ligament syndrome, COPD Pertinent Past Surgeries: bilateral CTR, right total hip replacement, lumbar laminectomy L4/5, left femur, left ankle History of Present Illness (HPI): 10/29/2024 - Initial HPI (Obtained by Ron Rubin CNP). DURATION AND ONSET: The pain complaint has been present for approximately 20 years. RED FLAG SYMPTOMS: arm or leg weakness and numbness or tingling. PAIN DESCRIPTION: Timing: Constant Character: Aching, Burning, Cramping, Dull, Numb, Sharp, Shooting, Stabbing, Throbbing Primary Location: hips Radiation: legs Exacerbating factors: Standing, Walking Relieving factors: rest and repositioning, Medications, Ice, Heat Interferes with: physical activity, work, sexual relations, walking, sleeping, sitting, bathing, driving, cooking, household cleaning, reaching for shelves, lifting, and social activities She stated that pain is present in both hips and lower back. She stated that she would like to focus first on reducing pain in hips then focus treatment on lower back pain. She stated that she had right hip replaced in June of [address] Siu orthopedic. She stated that pain is greater in right hip compared to the left hip at this time. She stated that she is following with orthopedic provider for history of left femur fracture and patellar fracture and hardware concerns. Current Pain Medications: Neuropathics: gabapentin NSAIDS: Muscle Relaxants: tizanidine Topicals: Other Prescription or OTC Pain Medications: Opioids (when applicable): oxycodone HCl (IR) (PCP) Anti-depressants or Mood-Stabilizers: None Anti-Coagulants: None Therapies Attended (Current or Most Recent): No Current Therapies 10/29/2024 AG SPINE COMBINATION Questionnaire GREENLIGHT Completed Date 10/29/2024 Questionnaire Opiod Risk Tool Completed Date 10/29/2024 Greenlight Questionnaire GREENLIGHT Completed Date 10/29/2024 Opioid Risk Tool Opiod Risk Tool Date Completed 10/29/2024 ZURDO-7 Anxiety Score 8 Completed Date 10/29/2024 PHQ9P Score 10 Completed Date 10/29/2024 (All drug screens are appropriate unless indicated otherwise) Treatment History: PAIN PROCEDURES: DATE PROCEDURE IMPROVEMENT To date, no interventional pain management procedures performed at this practice. MEDICATIONS Taken TO DATE (for the chief complaint(s)): Neuropathics: NSAIDS: Muscle Relaxants: Topicals: Other Prescription or OTC Pain Medications: Opioids: Compliance: PDMP website checked and validated on 10/29/2024 by Ron Mesa APRN.REFRIGERATING ENGINEER All prescriptions have been APPROPRIATELY filled. No suspicious activity was identified. 10/29/2024 AG SPINE COMBINATION Questionnaire GREENLIGHT Completed Date 10/29/2024 Questionnaire Opiod Risk Tool Completed Date 10/29/2024 (All drug screens are appropriate unless indicated otherwise) Risk Assessment: ZURDO-7: 06/26/2022 01/30/2024 10/29/2024 ZURDO - 7 SCORES Score 18 16 8 (0-4) minimal anxiety, (5-9) mild anxiety, (10-14) moderate anxiety, (15-21) severe anxiety PHQ-9: 04/06/2024 10/12/2024 10/29/2024 PHQ-9 Score 7 15 10 (0-4) minimal depression, (5-9) mild depression, (10-14) moderate depression, (15-19) moderately severe depression, (20-27) severe depression Diagnostic Studies: Relevant Imaging: MRI Spine Report MRI LUMBAR SPINE WO/W IVCON Exam End: 08/30/2022 2:13 PM (Final result) Narrative: * * *Final Report* * * DATE OF EXAM: Aug 30 2022 2:13PM [facility] 0304 - MRI LUMBAR SPINE WO/W IVCON / PROCEDURE REASON: Osteomyelitis, unspecified site, unspecified type (HCC) * * * * Physician Interpretation * * * * EXAMINATION: MRI LUMBAR SPINE WO/W IVCON CLINICAL HISTORY: Prior lumbar surgery. Back pain. TECHNIQUE: Routine lumbosacral spine MR protocol without and with intravenous gadolinium. Contrast: 13 mL Dotarem IV MQ: [id number] COMPARISON: MRI lumbar spine from outside hospital dated 02/14/2022 RESULT: Counting reference: Lumbosacral junction. For the purposes of this report, L4-5 is considered the level of the iliac crest and assume there are 5 lumbar-type vertebrae. Anatomic variant: None. Localizer images: Unremarkable. Postop: There are posterior spinal fixation rods and pedicle screws at L4-L5. Also remote postoperative changes of an L4 laminectomy. There is no pseudomeningocele. There are stable remote postoperative changes of discectomy with placement of an interbody fusion device at L4-L5. Extensive marrow edema identified along the inferior aspect of L3 has markedly decreased when compared to the previous examination. There is heterogeneous decreased T1 marrow signal throughout the L4 and L5 not appreciably changed since the prior exam. Alignment: Alignment is anatomic. Bone marrow signal/fracture: There is an new decreased T1 and increased inversion recovery marrow signal along the superior endplate of T12 compatible with an acute or subacute compression fracture. No significant dorsal displacement the posterior wall. There is less than 30% loss of height of the T12 vertebra. No evidence of prior fracture. Conus: The conus is within normal limits of signal intensity and morphology terminating at L1. Nerve roots are normal in appearance. Paraspinal soft tissues: Paraspinal soft tissues are within normal limits. Lower thoracic spine: Visualized lower thoracic canal and foramina are patent. T12-L1: Canal and foramina are patent. L1-L2: Canal and foramina are patent. L2-L3: Canal and foramina are patent L3-L4: Mild canal stenosis due to facet hypertrophy. Disc bulge anteriorly. Bilateral moderate neural foraminal stenosis. L4-L5: Spinal canal is decompressed due to laminectomy. Bilateral moderate neural foraminal stenosis unchanged since the prior examination L5-S1: Canal and foramina are patent Sacrum and iliac wings: The visualized sacrum and iliac wings are within normal limits. Impression: IMPRESSION: No clear evidence of discitis or osteomyelitis on this examination. No abnormal epidural or paravertebral soft tissue or enhancement. Interval development of a less than 30% acute or subacute compression fracture along the superior endplate of T12. No significant dorsal displacement the posterior wall. Interval decrease in the edema along the inferior endplate of L3. Stable postop changes of discectomy and posterior fusion at L4-L5. No evidence of arachnoiditis. Anatomic Thoracic/Lumbar Variant: None. L4-5 is considered the level of the iliac crest and assume there are 5 lumbar-type vertebrae. Oracle Programmer Analyst: [facility] Transcribe Date/Time: Aug 30 2022 3:16P Dictated by : PADMA GRACE MD This examination was interpreted and the report reviewed and electronically signed by: PADMA GRACE MD on Aug 30 2022 3:24PM EST 10/14/2024 4:10 PM - Radiology, [place] In Impression IMPRESSION: Acute left patellar fracture. Remote posttraumatic and postoperative findings as described with intact hardware. Oracle Programmer Analyst: [facility] Transcribe Date/Time: Oct 14 2024 3:57P Dictated by : NAVID RANDLE MD This examination was interpreted and the report reviewed and electronically signed by: NAVID RANDLE MD on Oct 14 2024 4:08PM EST Results-Findings * * *Final Report* * * DATE OF EXAM: Oct 14 2024 1:04PM [id number] - XR HIP 3V PELV+ AP/LAT LT / PROCEDURE REASON: Painful orthopaedic hardware (HCC) * * * * Physician Interpretation * * * * EXAMINATION / TECHNIQUE: XR HIP 3V PELV+ AP/LAT LT, XR FEMUR 2V AP/LAT LT HISTORY: left thigh pain Painful orthopaedic hardware (HCC) COMPARISON: 11/26/2023 RESULT: There is an acute appearing transversely oriented fracture of the patella. Remote subtrochanteric left proximal femur fracture deformity transfixed with intramedullary rickey and screws with lateral plate, screw, and cerclage augmentation in the mid to distal femur, new since 11/26/2023. Hardware is intact without evidence of loosening or fracture. There appears to be solid osseous fusion across the majority of the fracture. New partially imaged right total hip arthroplasty also noted, imaged portions of which appear intact. Partially imaged severe lower lumbar spondylosis with interbody device at L4-5, incompletely characterized. SI joints and pubic symphysis are intact. Electrodiagnostic Study (EMG): None Recent Labs: Creatinine Date Value Ref Range Status 09/22/2024 1.46 (H) 0.58 - 0.96 mg/dL Final No results found for: "EGFR" Glucose, Point of Care Date Value Ref Range Status 01/29/2024 77 74 - 99 mg/dL Final Comment: Location:[facility], [address] [place] [address], [facility] The Accu-Chek Inform II glucose meter has not been approved for testing on patients receiving intensive medical intervention or therapy and results from this point of care glucose test should not be used for patient management decisions in these cases. Inaccurate results may also occur from other interfering factors, such as N-acetylcysteine (blood concentrations of greater than 5mg/dL), galactose, extremes of hematocrit (<10 or >65), or high doses of ascorbic acid (vitamin C) greater than 3mg/dL. Consider alternate testing mechanisms (e.g. core lab, blood gas instrument) in the above situations. Current Medications, Past Medical History, Past Surgical History, Family History, Social History and Review of Systems: On today's date, noted above, I have confirmed and edited as necessary, the PFSH and ROS obtained by others. Physical Exam: 10/29/24 1427 Pulse: 83 Resp: 16 SpO2: 99% Physical Exam HENT: Head: Normocephalic. Right Ear: External ear normal. Left Ear: External ear normal. Eyes: Pupils: Pupils are equal, round, and reactive to light. Cardiovascular: Pulses: Normal pulses. Pulmonary: Effort: Pulmonary effort is normal. Musculoskeletal: General: Tenderness (Hips, lower back, left leg and knee) present. Lumbar back: Tenderness (Bilaterally) present. No swelling, edema, deformity, lacerations, spasms or bony tenderness. Decreased range of motion. Back: Right hip: Tenderness present. Decreased range of motion. Left hip: Tenderness present. Decreased range of motion. Left upper leg: Tenderness present. Left knee: Decreased range of motion. Tenderness present. Legs: Skin: General: Skin is warm and dry. Capillary Refill: Capillary refill takes 2 to 3 seconds. Neurological: Mental Status: She is alert and oriented to person, place, and time. Sensory: Sensory deficit (Lower extremities) present. Motor: Weakness (Lower extremities) present. No atrophy or abnormal muscle tone. Gait: Gait abnormal (Using rollator). Deep Tendon Reflexes: Reflexes are normal and symmetric. Reflexes normal. Psychiatric: Mood and Affect: Mood normal. Behavior: Behavior normal. Thought Content: Thought content normal. IMPRESSION: 58 year old female presents with complaint(s) of bilateral hip and lower back pain. Patient has pain present in hips bilaterally and noted to be greater in right hip at this time. Patient has pain present in lumbar spine region bilaterally. Patient has history of total right hip replacement. Patient has history of left femur and patellar fracture with presence of hardware. Patient is following with orthopedic providers, as she stated she is seeking to have hardware removed in left femur and patella per patient. Patient indicated that she has failed conservative treatment options including physical therapy and career services officer treatments for this pain. Patient indicated that she has completed hip cortisone's for left hip pain in the past and those have not been effective for treatment. I reviewed patient most recent imaging studies of hips and lumbar spine region and discussed those results with the patient today. Patient was requesting oxycodone HCl IR to be prescribed today and I discussed my philosophy of pain management with patient indicating utilizing interventional pain reduction procedures and nonopiate therapies to treat her pain. I discussed ordering diagnostic femoral obturator nerve blocks under fluoroscopic guidance x 1 set to right then x 1 set to the left and patient would like to proceed with having these nerve blocks being ordered today. I do not recommend therapeutic blocks with steroid at this time due to patient has an acute left patellar fracture. RFA procedure would be indicated if these diagnostic nerve blocks are effective but do not provide meaningful duration of pain reduction. As patient has no recent right hip imaging studies, I ordered a right hip x-ray today. Patient expressed understanding and is in agreement with current pain management treatment plan. All patient questions were answered during today's office consultation visit. 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) Pain in right hip (Z96.641) History of right hip replacement PLAN: Nikkie Buck would benefit from the following to reach personal goals for decreasing pain, improving function and work participation, and/or improving quality of life: Medications: None Interventional Procedures: Femoral and Obturator Articular Nerve Block - Diagnostic only, NO steroids under fluoroscopic guidance RIGHT SIDE, THEN LEFT SIDE (2 SESSIONS) at N/A Fire Fighter Needed: Nerve Blocks - YES (Exception: Occipital Nerve Blocks - NO) Anticoagulant - Hold Needed: N/A (Not currently on Anticoagulants), NO HOLD REQUIRED FOR THIS PROCEDURE Anticoagulant - Currently Taking: None Allergies (relevant): None Scheduling - Mobility (Can Patient independently transfer on/off an OR or Procedure table?): YES (May schedule at any location) Scheduling - Additional Info: Diagnostic Block - Needs a virtual visit with an MIGUE within 7 days (preferably within 2-3 days) of the injection (x2 if MBB), RFA if diagnostic block(s) are positive Studies: X-ray: Hip (Right) Functional Hoahaoism: NONE Referrals: No additional considerations at present Follow-up: after injections Depending on response to the above plan, consider: RFA of femoral obturator nerves, lumbar spine MRI Compliance and Clinic Policies Reviewed and/or Discussed Today: None Attribution: In addition to reviewing the information noted above, some elements copied from my most recent clinical note(s), including the physical exam (completed in entirety today), and the impression and plan sections, have been updated where appropriate. All reflect current medical decision making from today's date. Ron Mesa APRN.REFRIGERATING ENGINEER Pain Management [facility] PROGRESS Observed: 10/29/2024 2:29 PM Status: COMPLETED Source: [facility] HNO ID: [id number] Author: ZACHARY CARVALHO LPN Service: ? Author Type: LICENSED NURSE Type: Progress Notes Filed: 10/30/2024 19:20 Note Text: Review of Systems Constitutional: Negative for activity change, chills, fever and unexpected weight change. Gastrointestinal: Negative for bowel retention or incontinence Genitourinary: Negative for difficulty urinating. Negative for bladder retention or incontinence Musculoskeletal: Positive for arthralgias, back pain, gait problem, joint swelling and myalgias. Negative for neck pain and neck stiffness. Neurological: Positive for weakness and numbness. Negative for headaches. Psychiatric/Behavioral: Positive for sleep disturbance. Negative for dysphoric mood and suicidal ideas. The patient is nervous/anxious. HARMAN Observed: 10/29/2024 12:00 AM Status: COMPLETED Source: [facility] Telephone (AGSPHWS) FIORNIKKIE M ([id number]) 1965 F Date Time Provider Department 10/29/24 RON MESA Spectral ImageWS During your visit today, we recorded the following information about you: Edwar Sanchez 10/29/2024 3:22 PM Signed Procedure(s) being scheduled: Femoral obturator nerve blocks under fluoro, right side first then the left side second 1.Are you diabetic Yes. Please list the current medications being prescribed insulin. 2. Are you on any blood thinners? No 3. Are you taking any aspirin? No 4. Are you currently taking any antibiotics? No 5. Do you have any allergies to latex? No 6. Do you have any allergies to seafood or shellfish? No 7. Do you have any allergies to x-ray dye? No 8. Does this procedure require a transport truck driver? Yes If yes, has patient been notified that a transport truck driver is needed and must be present at check in? yes 9. Were the pre-procedure instructions explained and provided to the patient? Yes 10. Do you have a pacemaker? No 11. Do you have an internal stimulator of any kind? No Edwar García 10/29/2024 3:36 PM Signed Patient did not want to schedule the left side femoral obturator nerve block a the time the right was scheduled, even though I advised that waiting to do so would mean having to wait that much longer when she does decide to do the left side. Patient was dismissive of getting any paperwork (summaries and pre-procedure instructions), so I reiterated for a third time the importance of arriving early for the procedure and that she would require another adult accompanying her at the time of check-in. I still sent said instructions through [facility]. Edwar Sanchez Allergies As of Date: 10/29/2024 Noted Allergy Reaction DULOXETINE 06/15/2021 7 - Swelling 14 - Other: See Comments Comments: Other reaction(s): swelling Other reaction(s): Unknown Other reaction(s): swelling NSAIDS (NON-STEROIDAL ANTI-INFLAM*08/15/2020 8 - GI Upset Comments: Other reaction(s): GI Upset Other reaction(s): cramping, GI Upset, Other (See Comments), Upset Stomach Severe stomach pain Other reaction(s): GI Upset PENICILLINS 08/15/2020 2 - Rash 14 - Other: See Comments Comments: Other reaction(s): GI Upset, hives, horrible taste in mouth Other reaction(s): GI Upset, GI Upset, horrible taste in mouth, leaves a bad taste in her mouth., NEEDS FOLLOW-UP Other reaction(s): GI Upset, hives, horrible taste in mouth PREGABALIN 08/15/2020 7 - Swelling 14 - Other: See Comments 16 - Unknown Comments: Other reaction(s): swelling, Swelling Other reaction(s): Swelling, Unknown Other reaction(s): swelling, Swelling AMLODIPINE 06/22/2024 5 - Intolerance Comments: leg swelling at 10 mg CELEBREX (CELECOXIB) 08/09/2024 5 - Intolerance Comments: feet and leg swelling PENICILLIN G 11/11/2021 8 - GI Upset IBUPROFEN 11/11/2021 8 - GI Upset Comments: Vomiting cramping TYLENOL (ACETAMINOPHEN) 10/27/2022 8 - GI Upset Date Reviewed: 10/29/2024 Reviewed by: Ron Mesa APRN.REFRIGERATING ENGINEER - Fully Assessed Reason for Visit: Injections [199] Prescriptions as of 10/29/2024 - oxyCODONE IR (ROXICODONE) 5 mg immediate release tablet Take 1 tablet by mouth every 8 hours as needed for pain for up to 7 days. Patient should start on October 29, 2024. - insulin glargine 100 unit/mL (3 mL) Inject 24 Units subcutaneously daily at bedtime. - Insulin Willow, Disposable, (BD ULTRA-FINE PADMINI PEN NEEDLE) 32 gauge x 5/32" 1 Each three times a day. - Blood-Glucose Sensor (DEXCOM G6 SENSOR) jaguar 3 Each every 10 days. - empagliflozin (JARDIANCE) 10 mg tablet Take 1 tablet by mouth daily with breakfast. - losartan (COZAAR) 100 mg tablet Take 1 tablet by mouth once daily. - hydrALAZINE (APRESOLINE) 50 mg tablet Take 1 tablet by mouth four times daily. Hold if blood pressure is less than 110/60 - Cholecalciferol, Vitamin D3, 25 mcg (1,000 unit) cap Take 1 capsule by mouth once daily. - gabapentin (NEURONTIN) 800 mg tablet Take 1 tablet by mouth four times daily for 90 days. - tiZANidine (ZANAFLEX) 4 mg tablet Take 1 tablet by mouth three times a day as needed. - Blood-Glucose Meter,Continuous (DEXCOM G6 HR COORDINATOR) misc 1 Each once daily. - Blood-Glucose Transmitter (DEXCOM G6 TRANSMITTER) jaguar 1 Each once daily. - hydroCHLOROthiazide 25 mg tablet Take 1 tablet by mouth once daily. - polyethylene glycol 3350 17 gram/dose powder Take 17 g by mouth once daily as needed for constipation. - ondansetron orally disintegrating (ZOFRAN ODT) 8 mg disintegrating tablet Take 1 tablet by mouth every 8 hours as needed for nausea/vomiting. - omeprazole (PRILOSEC) 40 mg capsule Take 1 capsule by mouth two times a day. - blood sugar diagnostic ([employer]UCH VERIO TEST STRIPS) test strip 1 Strip four times daily. Use as instructed - fluticasone-salmeterol HFA (ADVAIR HFA) 230-21 mcg/actuation inhaler Inhale 2 Puffs as instructed two times a day. - loratadine (CLARITIN) 10 mg tablet Take 1 tablet by mouth once daily. - albuterol HFA (PROVENTIL HFA, VENTOLIN HFA) 90 mcg/actuation inhaler Inhale 2 Puffs as instructed every 4 hours as needed for wheezing/shortness of breath. - CPAP/BIPAP/OTHER Type .CPAPSettings into a note to see current settings/supplies/DME information. - insulin lispro (HUMALOG KWIKPEN) 100 unit/mL Inject 8 Units subcutaneously three times a day before meals. Taking as needed Problem List As Of Date 10/29/2024 Noted Resolved Uncontrolled type 2 diabetes mellitus with hype*08/28/2022 Chronic midline low back pain with sciatica [M5*08/28/2022 Chronic obstructive lung disease (HCC) [J44.9] 10/18/2022 11/05/2022 Chronic obstructive pulmonary disease, unspecif*11/30/2021 Hyperlipidemia, unspecified [E78.5] 06/15/2021 Tobacco use [Z72.0] 11/05/[address] scan, kidney [R93.429] 11/05/2022 Dyspepsia [R10.13] 02/21/2023 Epigastric pain [R10.13] 02/21/2023 Right upper quadrant abdominal pain [R10.11] 02/21/2023 Chronic gastritis without bleeding [K29.50] 03/12/2023 Gastric wall thickening [K31.89] 03/12/2023 Primary hypertension [I10] 06/11/2023 Neuropathy [G62.9] 06/11/2023 Back pain with history of spinal surgery [M54.9*06/11/2023 FRANCISCO (obstructive sleep apnea) [G47.33] 06/11/2023 DM gastroparesis (HCC) [E11.43, K31.84] 07/04/2023 Abdominal bloating [R14.0] 10/13/2023 Obesity [E66.9] 10/13/2023 Diagnosed: 10/13/2023 Postlaminectomy syndrome of lumbar region [M96.*10/31/2022 Diagnosed: 10/13/2023 Sciatica [M54.30] 11/18/2022 Diagnosed: 10/13/2023 Fall at home, initial encounter [W19.XXXA, Y92.*11/26/2023 12/04/2023 Nicotine use disorder, F17.2 [F17.200] 11/28/2023 Osteoporosis [M81.0] 08/20/2024 Encounter Status:Closed by EDWAR SANCHEZ on 10/29/24 CNCO Observed: 10/29/2024 12:00 AM Status: COM PLETED Source: [facility] Letter Text CNPN Observed: 10/29/2024 12:00 AM Status: COMPLETED Source: [facility] Telephone (AGSPINE1) NIKKIE BUCK ([id number]) 1965 F Date Time Provider Department 10/29/24 GORDON PECK [email or web address] During your visit today, we recorded the following information about you: Allergies As of Date: 10/29/2024 Noted Allergy Reaction DULOXETINE 06/15/2021 7 - Swelling 14 - Other: See Comments Comments: Other reaction(s): swelling Other reaction(s): Unknown Other reaction(s): swelling NSAIDS (NON-STEROIDAL ANTI-INFLAM*08/15/2020 8 - GI Upset Comments: Other reaction(s): GI Upset Other reaction(s): cramping, GI Upset, Other (See Comments), Upset Stomach Severe stomach pain Other reaction(s): GI Upset PENICILLINS 08/15/2020 2 - Rash 14 - Other: See Comments Comments: Other reaction(s): GI Upset, hives, horrible taste in mouth Other reaction(s): GI Upset, GI Upset, horrible taste in mouth, leaves a bad taste in her mouth., NEEDS FOLLOW-UP Other reaction(s): GI Upset, hives, horrible taste in mouth PREGABALIN 08/15/2020 7 - Swelling 14 - Other: See Comments 16 - Unknown Comments: Other reaction(s): swelling, Swelling Other reaction(s): Swelling, Unknown Other reaction(s): swelling, Swelling AMLODIPINE 06/22/2024 5 - Intolerance Comments: leg swelling at 10 mg CELEBREX (CELECOXIB) 08/09/2024 5 - Intolerance Comments: feet and leg swelling PENICILLIN G 11/11/2021 8 - GI Upset IBUPROFEN 11/11/2021 8 - GI Upset Comments: Vomiting cramping TYLENOL (ACETAMINOPHEN) 10/27/2022 8 - GI Upset Date Reviewed: 10/29/2024 Reviewed by: Ron Mesa APRN.REFRIGERATING ENGINEER - Fully Assessed Prescriptions as of 10/29/2024 - oxyCODONE IR (ROXICODONE) 5 mg immediate release tablet Take 1 tablet by mouth every 8 hours as needed for pain for up to 7 days. Patient should start on October 29, 2024. - insulin glargine 100 unit/mL (3 mL) Inject 24 Units subcutaneously daily at bedtime. - Insulin Willow, Disposable, (BD ULTRA-FINE PADMINI PEN NEEDLE) 32 gauge x 5/32" 1 Each three times a day. - Blood-Glucose Sensor (DEXCOM G6 SENSOR) jaguar 3 Each every 10 days. - empagliflozin (JARDIANCE) 10 mg tablet Take 1 tablet by mouth daily with breakfast. - losartan (COZAAR) 100 mg tablet Take 1 tablet by mouth once daily. - hydrALAZINE (APRESOLINE) 50 mg tablet Take 1 tablet by mouth four times daily. Hold if blood pressure is less than 110/60 - Cholecalciferol, Vitamin D3, 25 mcg (1,000 unit) cap Take 1 capsule by mouth once daily. - gabapentin (NEURONTIN) 800 mg tablet Take 1 tablet by mouth four times daily for 90 days. - tiZANidine (ZANAFLEX) 4 mg tablet Take 1 tablet by mouth three times a day as needed. - Blood-Glucose Meter,Continuous (DEXCOM G6 HR COORDINATOR) misc 1 Each once daily. - Blood-Glucose Transmitter (DEXCOM G6 TRANSMITTER) jaguar 1 Each once daily. - hydroCHLOROthiazide 25 mg tablet Take 1 tablet by mouth once daily. - polyethylene glycol 3350 17 gram/dose powder Take 17 g by mouth once daily as needed for constipation. - ondansetron orally disintegrating (ZOFRAN ODT) 8 mg disintegrating tablet Take 1 tablet by mouth every 8 hours as needed for nausea/vomiting. - omeprazole (PRILOSEC) 40 mg capsule Take 1 capsule by mouth two times a day. - blood sugar diagnostic ([employer] VERIO TEST STRIPS) test strip 1 Strip four times daily. Use as instructed - fluticasone-salmeterol HFA (ADVAIR HFA) 230-21 mcg/actuation inhaler Inhale 2 Puffs as instructed two times a day. - loratadine (CLARITIN) 10 mg tablet Take 1 tablet by mouth once daily. - albuterol HFA (PROVENTIL HFA, VENTOLIN HFA) 90 mcg/actuation inhaler Inhale 2 Puffs as instructed every 4 hours as needed for wheezing/shortness of breath. - CPAP/BIPAP/OTHER Type .CPAPSettings into a note to see current settings/supplies/DME information. - insulin lispro (HUMALOG KWIKPEN) 100 unit/mL Inject 8 Units subcutaneously three times a day before meals. Taking as needed Problem List As Of Date 10/29/2024 Noted Resolved Uncontrolled type 2 diabetes mellitus with hype*08/28/2022 Chronic midline low back pain with sciatica [M5*08/28/2022 Chronic obstructive lung disease (HCC) [J44.9] 10/18/2022 11/05/2022 Chronic obstructive pulmonary disease, unspecif*11/30/2021 Hyperlipidemia, unspecified [E78.5] 06/15/2021 Tobacco use [Z72.0] 11/05/[address] scan, kidney [R93.429] 11/05/2022 Dyspepsia [R10.13] 02/21/2023 Epigastric pain [R10.13] 02/21/2023 Right upper quadrant abdominal pain [R10.11] 02/21/2023 Chronic gastritis without bleeding [K29.50] 03/12/2023 Gastric wall thickening [K31.89] 03/12/2023 Primary hypertension [I10] 06/11/2023 Neuropathy [G62.9] 06/11/2023 Back pain with history of spinal surgery [M54.9*06/11/2023 FRANCISCO (obstructive sleep apnea) [G47.33] 06/11/2023 DM gastroparesis (HCC) [E11.43, K31.84] 07/04/2023 Abdominal bloating [R14.0] 10/13/2023 Obesity [E66.9] 10/13/2023 Diagnosed: 10/13/2023 Postlaminectomy syndrome of lumbar region [M96.*10/31/2022 Diagnosed: 10/13/2023 Sciatica [M54.30] 11/18/2022 Diagnosed: 10/13/2023 Fall at home, initial encounter [W19.XXXA, Y92.*11/26/2023 12/04/2023 Nicotine use disorder, F17.2 [F17.200] 11/28/2023 Osteoporosis [M81.0] 08/20/2024 Encounter Status:Closed by EDWAR SANCHEZ on 10/29/24 HARMAN Observed: 10/25/2024 12:00 AM Status: COMPLETED Source: [facility] Telephone (EnglishCentralI) NIKKIE BUCK ([id number]) 1965 F Date Time Provider Department 10/25/24 SHANTEL LOPEZ GENBMI During your visit today, we recorded the following information about you: Shantel Lopez, RN 10/25/2024 9:24 AM Signed [facility] COORDINATION TELEPHONE ENCOUNTER Pt sent [facility] message asking for a surgery date for her GPOEM. Her message was forwarded to the wrong team. Correct surgeon and team were updated. Pt was aware her message would be sent to Dr Hinojosa. Allergies As of Date: 10/25/2024 Noted Allergy Reaction DULOXETINE 06/15/2021 7 - Swelling 14 - Other: See Comments Comments: Other reaction(s): swelling Other reaction(s): Unknown Other reaction(s): swelling NSAIDS (NON-STEROIDAL ANTI-INFLAM*08/15/2020 8 - GI Upset Comments: Other reaction(s): GI Upset Other reaction(s): cramping, GI Upset, Other (See Comments), Upset Stomach Severe stomach pain Other reaction(s): GI Upset PENICILLINS 08/15/2020 2 - Rash 14 - Other: See Comments Comments: Other reaction(s): GI Upset, hives, horrible taste in mouth Other reaction(s): GI Upset, GI Upset, horrible taste in mouth, leaves a bad taste in her mouth., NEEDS FOLLOW-UP Other reaction(s): GI Upset, hives, horrible taste in mouth PREGABALIN 08/15/2020 7 - Swelling 14 - Other: See Comments 16 - Unknown Comments: Other reaction(s): swelling, Swelling Other reaction(s): Swelling, Unknown Other reaction(s): swelling, Swelling AMLODIPINE 06/22/2024 5 - Intolerance Comments: leg swelling at 10 mg CELEBREX (CELECOXIB) 08/09/2024 5 - Intolerance Comments: feet and leg swelling PENICILLIN G 11/11/2021 8 - GI Upset IBUPROFEN 11/11/2021 8 - GI Upset Comments: Vomiting cramping TYLENOL (ACETAMINOPHEN) 10/27/2022 8 - GI Upset Date Reviewed: 09/27/2024 Reviewed by: Sade Cleaning RN - Fully Assessed Prescriptions as of 10/25/2024 - oxyCODONE IR (ROXICODONE) 5 mg immediate release tablet Take 1 tablet by mouth every 8 hours as needed for pain for up to 7 days. Patient should start on October 22, 2024. - insulin glargine 100 unit/mL (3 mL) Inject 24 Units subcutaneously daily at bedtime. - Insulin Willow, Disposable, (BD ULTRA-FINE PADMINI PEN NEEDLE) 32 gauge x 5/32" 1 Each three times a day. - Blood-Glucose Sensor (DEXCOM G6 SENSOR) jaguar 3 Each every 10 days. - empagliflozin (JARDIANCE) 10 mg tablet Take 1 tablet by mouth daily with breakfast. - losartan (COZAAR) 100 mg tablet Take 1 tablet by mouth once daily. - hydrALAZINE (APRESOLINE) 50 mg tablet Take 1 tablet by mouth four times daily. Hold if blood pressure is less than 110/60 - Cholecalciferol, Vitamin D3, 25 mcg (1,000 unit) cap Take 1 capsule by mouth once daily. - gabapentin (NEURONTIN) 800 mg tablet Take 1 tablet by mouth four times daily for 90 days. - tiZANidine (ZANAFLEX) 4 mg tablet Take 1 tablet by mouth three times a day as needed. - Blood-Glucose Meter,Continuous (DEXCOM G6 HR COORDINATOR) misc 1 Each once daily. - Blood-Glucose Transmitter (DEXCOM G6 TRANSMITTER) jaguar 1 Each once daily. - hydroCHLOROthiazide 25 mg tablet Take 1 tablet by mouth once daily. - polyethylene glycol 3350 17 gram/dose powder Take 17 g by mouth once daily as needed for constipation. - ondansetron orally disintegrating (ZOFRAN ODT) 8 mg disintegrating tablet Take 1 tablet by mouth every 8 hours as needed for nausea/vomiting. - omeprazole (PRILOSEC) 40 mg capsule Take 1 capsule by mouth two times a day. - blood sugar diagnostic ([employer] VERIO TEST STRIPS) test strip 1 Strip four times daily. Use as instructed - fluticasone-salmeterol HFA (ADVAIR HFA) 230-21 mcg/actuation inhaler Inhale 2 Puffs as instructed two times a day. - loratadine (CLARITIN) 10 mg tablet Take 1 tablet by mouth once daily. - albuterol HFA (PROVENTIL HFA, VENTOLIN HFA) 90 mcg/actuation inhaler Inhale 2 Puffs as instructed every 4 hours as needed for wheezing/shortness of breath. - CPAP/BIPAP/OTHER Type .CPAPSettings into a note to see current settings/supplies/DME information. - insulin lispro (HUMALOG KWIKPEN) 100 unit/mL Inject 8 Units subcutaneously three times a day before meals. Taking as needed Problem List As Of Date 10/25/2024 Noted Resolved Uncontrolled type 2 diabetes mellitus with hype*08/28/2022 Chronic midline low back pain with sciatica [M5*08/28/2022 Chronic obstructive lung disease (HCC) [J44.9] 10/18/2022 11/05/2022 Chronic obstructive pulmonary disease, unspecif*11/30/2021 Hyperlipidemia, unspecified [E78.5] 06/15/2021 Tobacco use [Z72.0] 11/05/[address] scan, kidney [R93.429] 11/05/2022 Dyspepsia [R10.13] 02/21/2023 Epigastric pain [R10.13] 02/21/2023 Right upper quadrant abdominal pain [R10.11] 02/21/2023 Chronic gastritis without bleeding [K29.50] 03/12/2023 Gastric wall thickening [K31.89] 03/12/2023 Primary hypertension [I10] 06/11/2023 Neuropathy [G62.9] 06/11/2023 Back pain with history of spinal surgery [M54.9*06/11/2023 FRANCISCO (obstructive sleep apnea) [G47.33] 06/11/2023 DM gastroparesis (HCC) [E11.43, K31.84] 07/04/2023 Abdominal bloating [R14.0] 10/13/2023 Obesity [E66.9] 10/13/2023 Diagnosed: 10/13/2023 Postlaminectomy syndrome of lumbar region [M96.*10/31/2022 Diagnosed: 10/13/2023 Sciatica [M54.30] 11/18/2022 Diagnosed: 10/13/2023 Fall at home, initial encounter [W19.XXXA, Y92.*11/26/2023 12/04/2023 Nicotine use disorder, F17.2 [F17.200] 11/28/2023 Osteoporosis [M81.0] 08/20/2024 Encounter Status:Closed by SHANTEL LOPEZ on 10/25/24 XR HIP 3V PELV+ AP/LAT LT Observed: 02/2025 1:04 PM Status: F Source: [facility] * * *Final Report* * * DATE OF EXAM: Oct 14 2024 1:04PM [id number] - XR HIP 3V PELV+ AP/LAT LT / PROCEDURE REASON: Painful orthopaedic hardware (HCC) * * * * Physician Interpretation * * * * EXAMINATION / TECHNIQUE: XR HIP 3V PELV+ AP/LAT LT, XR FEMUR 2V AP/LAT LT HISTORY: left thigh pain Painful orthopaedic hardware (HCC) COMPARISON: 11/26/2023 RESULT: There is an acute appearing transversely oriented fracture of the patella. Remote subtrochanteric left proximal femur fracture deformity transfixed with intramedullary rickey and screws with lateral plate, screw, and cerclage augmentation in the mid to distal femur, new since 11/26/2023. Hardware is intact without evidence of loosening or fracture. There appears to be solid osseous fusion across the majority of the fracture. New partially imaged right total hip arthroplasty also noted, imaged portions of which appear intact. Partially imaged severe lower lumbar spondylosis with interbody device at L4-5, incompletely characterized. SI joints and pubic symphysis are intact. IMPRESSION: Acute left patellar fracture. Remote posttraumatic and postoperative findings as described with intact hardware. [employer] Programmer Analyst: [email or web address] Transcribe Date/Time: Oct 14 2024 3:57P Dictated by : NAVID RANDLE MD This examination was interpreted and the report reviewed and electronically signed by: NAVID RANDLE MD on Oct 14 2024 4:08PM EST [id number] XR FEMUR 2V AP/LAT LT Observed: 10/14/19 1:04 PM Status: F Source: [facility] * * *Final Report* * * DATE OF EXAM: Oct 14 2024 1:04PM [id number] - XR FEMUR 2V AP/LAT LT / PROCEDURE REASON: Painful orthopaedic hardware (HCC) * * * * Physician Interpretation * * * * EXAMINATION / TECHNIQUE: XR HIP 3V PELV+ AP/LAT LT, XR FEMUR 2V AP/LAT LT HISTORY: left thigh pain Painful orthopaedic hardware (HCC) COMPARISON: 11/26/2023 RESULT: There is an acute appearing transversely oriented fracture of the patella. Remote subtrochanteric left proximal femur fracture deformity transfixed with intramedullary rickey and screws with lateral plate, screw, and cerclage augmentation in the mid to distal femur, new since 11/26/2023. Hardware is intact without evidence of loosening or fracture. There appears to be solid osseous fusion across the majority of the fracture. New partially imaged right total hip arthroplasty also noted, imaged portions of which appear intact. Partially imaged severe lower lumbar spondylosis with interbody device at L4-5, incompletely characterized. SI joints and pubic symphysis are intact. IMPRESSION: Acute left patellar fracture. Remote posttraumatic and postoperative findings as described with intact hardware. [employer] Programmer Analyst: PSCB Transcribe Date/Time: Oct 14 2024 3:57P Dictated by : NAVID RANDLE MD This examination was interpreted and the report reviewed and electronically signed by: NAVID RANDLE MD on Oct 14 2024 4:08PM EST [id number] Observed: 10/14/2024 1:01 PM Status: COMPLETED Source: [facility] HNO ID: [id number] Author: ZAHRA VICTOR RT(R) Service: ? Author Type: Technologist Type: Progress Notes Filed: 10/14/2024 13:02 Note Text: Radiology Service Progress Note PATIENT NAME: Nikkie Buck DATE OF SERVICE: October 14, 2024 TIME: 1:01 PM PATIENT IDENTITY VERIFICATION COMPLETED USING TWO (2) IDENTIFIERS: Name and Date of confirmed by patient verbally. FALL SCREENING: Has the patient had 2 falls in the last year or 1 fall with injury or currently using an Ambulatory Assistive Device (Walker, Cane, Wheelchair, Crutches, etc.)? Yes, Patient High Risk for Falls What interventions were put in place to prevent falls during this visit? Instructed Patient to Remain Seated (Not on Exam Table) Until Exam and Increased Observations by Caregivers PATIENT GENDER DATA: Assigned female at . status: : No status: NO. PATIENT RELEVANT IMPLANT DATA REVIEWED: Not Applicable PATIENT PRESENTS WITH AN IMPLANTABLE OR ATTACHED WHARF TALLY CLERK: No RADIOLOGY DEPARTMENT: General X-ray: Exam(s) Completed: Pelvis X-Ray: Pelvis with Hip Left Lower Extremity X-Ray(s): Femur, Left PERIPHERAL IV DATA: Not applicable SIGNED BY: RT Odette(R) October 14, 2024 1:01 PM CNOV Observed: 10/14/2024 1:00 PM Status: COMPLETED Source: [facility] Office Visit (LOORRM) NIKKIE BUCK ([id number]) 1965 F Date Time Provider Department 10/14/24 1:00 PM ROB GONZÁLES During your visit today, we recorded the following information about you: Rob Gonzáles MD 10/15/2024 1:[address] [facility] NOTE [facility] NAME: NIKKIE BUCK CLINIC NO.: [id number] DATE OF SERVICE: 10/14/2024 ATTENDING PHYSICIAN: Rob Gonzáles II, M.D. CHIEF COMPLAINT: Pain in left leg from the hip down to the knee. Pain with touching the skin over the incisional areas and pokes from internal plates and screws from the remote surgery. The patient also complains of pain in her right hip, which is a total hip replacement. Apparently, the patient fell and in mid November of 2023, fractured her left hip and had a subtrochanteric fracture of the left hip. This was operated on November 27, 2023, in [place], [place] and she had a long IM nail left hip in good position. Apparently during the procedure, the anterior cortex of the distal femoral shaft was broken through. This was realized and they did a plating of the lateral portion of the femur from the knee to mid thigh and interlocked the plate with the bone in the IM rickey for the hip. The patient has had much pain and complains mainly of pain in her left leg with sitting and walking or any movement of the hip or knee and states that the left knee gives way. The patient subsequently then fell in June of 2024, and fractured her right hip and had a right total hip replacement done for that fracture. She has done reasonably well with the total hip, but still has achiness around her hip. PE: A 58-year-old, 5 foot 138-pound female, on disability. She states that the doctor that did her total hip for a fracture of the right hip did not want to take care of her left leg and her insurance apparently has changed so that the doctors that took care of her left hip and femur fracture no longer take the insurance that she has. Patient has reasonable IR and ER of the left hip and can flex the left hip to 90 degrees. She has difficulty extending her left knee, but with a significant amount of encouragement, she can get it completely straight and hold it there and then let it bend to about 90 degrees. Calf is soft, nontender. No evidence of phlebitis. She has no effusion of her left knee. She is hypersensitive to any touch about the lateral incision from the left knee to mid thigh and she is hypersensitive to a motion of passive or active of the left hip. X-rays show a long IM rickey on a hip nail holding excellent a reduction of a subtrochanteric fracture of the left hip. This fracture seems healed centrally, but there it may well not be completely healed along the lateral cortex. There is 1 circumferential femur holding the distal and medial portion of the neck in place, but it healed in a good position. The patient has a plate from the left knee lateral cortex up to the mid femur. This is held in place with multiple screws through the intercondylar area, 2 long screw that go through the plate through the bone and lock through the IM rickey and 2 cables and 2 unicortical screws on the more proximal part of the plate. What cannot be seen is how big or exactly where the defect was on the anterior femur. Neurovascular status of the leg is good. The patient's pain tolerance is 4. The patient states she simply wants all the metal removed. I have cautioned her about doing that abruptly. It has been less than a year since the subtrochanteric fracture has been healed and we need to pay attention to that and we should do a CT scan of the distal femur to see how much of the anterior cortex was injured passing the IM rickey. The patient also uses a rollator and can now walk without the rollator, so she needs physical therapy to increase her motion of both her left hip and left knee as well as balance and ambulation exercises. The patient would like to get a CT scan and physical therapy down at [place] [facility]. She should return in 2 months and we will see if her motion has been improved in both her knee and her hip, see if her walking balance has been improved and if she is strong enough to walk without the rollator. We have ordered the CT scan of the femur and ordered physical therapy for her at the [facility]. DICTATED BY: Rob Gonzáles II, M.D. MCK/AQT JOB# [id number] Rizwana Dorman MA 10/28/2024 1:22 PM Signed Addended by: RIZWANA DORMAN on: 10/28/2024 01:22 PM Modules accepted: Orders Heat Treating Operator: CLINIC NOTE ID: [id number] 10/14/2024 2:38 PM Author: ROB GONZÁLES Signed by ROB GONZÁLES MD on 10/15/2024 at 1:59 PM Document text: [facility]IC NOTE [facility] NAME: NIKKIE BUCK CLINIC NO.: [id number] DATE OF SERVICE: 10/14/2024 ATTENDING PHYSICIAN: Rob Gonzáles II, M.D. CHIEF COMPLAINT: Pain in left leg from the hip down to the knee. Pain with touching the skin over the incisional areas and pokes from internal plates and screws from the remote surgery. The patient also complains of pain in her right hip, which is a total hip replacement. Apparently, the patient fell and in mid November of 2023, fractured her left hip and had a subtrochanteric fracture of the left hip. This was operated on November 27, 2023, in [place], [place] and she had a long IM nail left hip in good position. Apparently during the procedure, the anterior cortex of the distal femoral shaft was broken through. This was realized and they did a plating of the lateral portion of the femur from the knee to mid thigh and interlocked the plate with the bone in the IM rickey for the hip. The patient has had much pain and complains mainly of pain in her left leg with sitting and walking or any movement of the hip or knee and states that the left knee gives way. The patient subsequently then fell in June of 2024, and fractured her right hip and had a right total hip replacement done for that fracture. She has done reasonably well with the total hip, but still has achiness around her hip. PE: A 58-year-old, 5 foot 138-pound female, on disability. She states that the doctor that did her total hip for a fracture of the right hip did not want to take care of her left leg and her insurance apparently has changed so that the doctors that took care of her left hip and femur fracture no longer take the insurance that she has. Patient has reasonable IR and ER of the left hip and can flex the left hip to 90 degrees. She has difficulty extending her left knee, but with a significant amount of encouragement, she can get it completely straight and hold it there and then let it bend to about 90 degrees. Calf is soft, nontender. No evidence of phlebitis. She has no effusion of her left knee. She is hypersensitive to any touch about the lateral incision from the left knee to mid thigh and she is hypersensitive to a motion of passive or active of the left hip. X-rays show a long IM rickey on a hip nail holding excellent a reduction of a subtrochanteric fracture of the left hip. This fracture seems healed centrally, but there it may well not be completely healed along the lateral cortex. There is 1 circumferential femur holding the distal and medial portion of the neck in place, but it healed in a good position. The patient has a plate from the left knee lateral cortex up to the mid femur. This is held in place with multiple screws through the intercondylar area, 2 long screw that go through the plate through the bone and lock through the IM rickey and 2 cables and 2 unicortical screws on the more proximal part of the plate. What cannot be seen is how big or exactly where the defect was on the anterior femur. Neurovascular status of the leg is good. The patient's pain tolerance is 4. The patient states she simply wants all the metal removed. I have cautioned her about doing that abruptly. It has been less than a year since the subtrochanteric fracture has been healed and we need to pay attention to that and we should do a CT scan of the distal femur to see how much of the anterior cortex was injured passing the IM rickey. The patient also uses a rollator and can now walk without the rollator, so she needs physical therapy to increase her motion of both her left hip and left knee as well as balance and ambulation exercises. The patient would like to get a CT scan and physical therapy down at [place]. She should return in 2 months and we will see if her motion has been improved in both her knee and her hip, see if her walking balance has been improved and if she is strong enough to walk without the rollator. We have ordered the CT scan of the femur and ordered physical therapy for her at the [facility]. DICTATED BY: Cyndi Pike II/MARI JOB# [id number] Allergies As of Date: 10/14/2024 Noted Allergy Reaction DULOXETINE 06/15/2021 7 - Swelling 14 - Other: See Comments Comments: Other reaction(s): swelling Other reaction(s): Unknown Other reaction(s): swelling NSAIDS (NON-STEROIDAL ANTI-INFLAM*08/15/2020 8 - GI Upset Comments: Other reaction(s): GI Upset Other reaction(s): cramping, GI Upset, Other (See Comments), Upset Stomach Severe stomach pain Other reaction(s): GI Upset PENICILLINS 08/15/2020 2 - Rash 14 - Other: See Comments Comments: Other reaction(s): GI Upset, hives, horrible taste in mouth Other reaction(s): GI Upset, GI Upset, horrible taste in mouth, leaves a bad taste in her mouth., NEEDS FOLLOW-UP Other reaction(s): GI Upset, hives, horrible taste in mouth PREGABALIN 08/15/2020 7 - Swelling 14 - Other: See Comments 16 - Unknown Comments: Other reaction(s): swelling, Swelling Other reaction(s): Swelling, Unknown Other reaction(s): swelling, Swelling AMLODIPINE 06/22/2024 5 - Intolerance Comments: leg swelling at 10 mg CELEBREX (CELECOXIB) 08/09/2024 5 - Intolerance Comments: feet and leg swelling PENICILLIN G 11/11/2021 8 - GI Upset IBUPROFEN 11/11/2021 8 - GI Upset Comments: Vomiting cramping TYLENOL (ACETAMINOPHEN) 10/27/2022 8 - GI Upset Date Reviewed: 09/27/2024 Reviewed by: Sade Cleaning RN - Fully Assessed Primary Visit Diagnosis:Painful orthopaedic hardware (HCC) [T84.84XA] Other Visit Diagnosis: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 Patient should start on October 29, 2024. - insulin glargine 100 unit/mL (3 mL) Inject 24 Units subcutaneously daily at bedtime. - Insulin Willow, Disposable, (BD ULTRA-FINE PADMINI PEN NEEDLE) 32 gauge x 5/32" 1 Each three times a day. - Blood-Glucose Sensor (DEXCOM G6 SENSOR) jaguar 3 Each every 10 days. - empagliflozin (JARDIANCE) 10 mg tablet Take 1 tablet by mouth daily with breakfast. - losartan (COZAAR) 100 mg tablet Take 1 tablet by mouth once daily. - hydrALAZINE (APRESOLINE) 50 mg tablet Take 1 tablet by mouth four times daily. Hold if blood pressure is less than 110/60 - Cholecalciferol, Vitamin D3, 25 mcg (1,000 unit) cap Take 1 capsule by mouth once daily. - gabapentin (NEURONTIN) 800 mg tablet Take 1 tablet by mouth four times daily for 90 days. - tiZANidine (ZANAFLEX) 4 mg tablet Take 1 tablet by mouth three times a day as needed. - Blood-Glucose Meter,Continuous (DEXCOM G6 HR COORDINATOR) misc 1 Each once daily. - Blood-Glucose Transmitter (DEXCOM G6 TRANSMITTER) jaguar 1 Each once daily. - hydroCHLOROthiazide 25 mg tablet Take 1 tablet by mouth once daily. - polyethylene glycol 3350 17 gram/dose powder Take 17 g by mouth once daily as needed for constipation. - ondansetron orally disintegrating (ZOFRAN ODT) 8 mg disintegrating tablet Take 1 tablet by mouth every 8 hours as needed for nausea/vomiting. - omeprazole (PRILOSEC) 40 mg capsule Take 1 capsule by mouth two times a day. - blood sugar diagnostic ([employer]UCH VERIO TEST STRIPS) test strip 1 Strip four times daily. Use as instructed - fluticasone-salmeterol HFA (ADVAIR HFA) 230-21 mcg/actuation inhaler Inhale 2 Puffs as instructed two times a day. - loratadine (CLARITIN) 10 mg tablet Take 1 tablet by mouth once daily. - albuterol HFA (PROVENTIL HFA, VENTOLIN HFA) 90 mcg/actuation inhaler Inhale 2 Puffs as instructed every 4 hours as needed for wheezing/shortness of breath. - CPAP/BIPAP/OTHER Type .CPAPSettings into a note to see current settings/supplies/DME information. - insulin lispro (HUMALOG KWIKPEN) 100 unit/mL Inject 8 Units subcutaneously three times a day before meals. Taking as needed Problem List As Of Date 10/14/2024 Noted Resolved Uncontrolled type 2 diabetes mellitus with hype*08/28/2022 Chronic midline low back pain with sciatica [M5*08/28/2022 Chronic obstructive lung disease (HCC) [J44.9] 10/18/2022 11/05/2022 Chronic obstructive pulmonary disease, unspecif*11/30/2021 Hyperlipidemia, unspecified [E78.5] 06/15/2021 Tobacco use [Z72.0] 11/05/[address] scan, kidney [R93.429] 11/05/2022 Dyspepsia [R10.13] 02/21/2023 Epigastric pain [R10.13] 02/21/2023 Right upper quadrant abdominal pain [R10.11] 02/21/2023 Chronic gastritis without bleeding [K29.50] 03/12/2023 Gastric wall thickening [K31.89] 03/12/2023 Primary hypertension [I10] 06/11/2023 Neuropathy [G62.9] 06/11/2023 Back pain with history of spinal surgery [M54.9*06/11/2023 FRANCISCO (obstructive sleep apnea) [G47.33] 06/11/2023 DM gastroparesis (HCC) [E11.43, K31.84] 07/04/2023 Abdominal bloating [R14.0] 10/13/2023 Obesity [E66.9] 10/13/2023 Diagnosed: 10/13/2023 Postlaminectomy syndrome of lumbar region [M96.*10/31/2022 Diagnosed: 10/13/2023 Sciatica [M54.30] 11/18/2022 Diagnosed: 10/13/2023 Fall at home, initial encounter [W19.XXXA, Y92.*11/26/2023 12/04/2023 Nicotine use disorder, F17.2 [F17.200] 11/28/2023 Osteoporosis [M81.0] 08/20/2024 Medications Discontinued During This Encounter Prescriptions - spironolactone (ALDACTONE) 25 mg tablet (Discontinued) Take 1 tablet by mouth once daily. Letter Text Encounter Status:Closed by ROB GONZÁLES II on 10/15/24 PROGRESS Observed: 10/14/2024 12:00 AM Status: COMPLETED [id number] Author: ROB GONZÁLES MD Service: Orthopaedic Surgery Author Type: Physician Type: Progress Notes Filed: 10/15/2024 13:59 Note Text: [facility] NAME: NIKKIE BUCK [facility] NO.: [id number] DATE OF SERVICE: 10/14/2024 ATTENDING PHYSICIAN: Rob Gonzáles II, M.D. CHIEF COMPLAINT: Pain in left leg from the hip down to the knee. Pain with touching the skin over the incisional areas and pokes from internal plates and screws from the remote surgery. The patient also complains of pain in her right hip, which is a total hip replacement. Apparently, the patient fell and in mid November of 2023, fractured her left hip and had a subtrochanteric fracture of the left hip. This was operated on November 27, 2023, in [place], [place] and she had a long IM nail left hip in good position. Apparently during the procedure, the anterior cortex of the distal femoral shaft was broken through. This was realized and they did a plating of the lateral portion of the femur from the knee to mid thigh and interlocked the plate with the bone in the IM rickey for the hip. The patient has had much pain and complains mainly of pain in her left leg with sitting and walking or any movement of the hip or knee and states that the left knee gives way. The patient subsequently then fell in June of 2024, and fractured her right hip and had a right total hip replacement done for that fracture. She has done reasonably well with the total hip, but still has achiness around her hip. PE: A 58-year-old, 5 foot 138-pound female, on disability. She states that the doctor that did her total hip for a fracture of the right hip did not want to take care of her left leg and her insurance apparently has changed so that the doctors that took care of her left hip and femur fracture no longer take the insurance that she has. Patient has reasonable IR and ER of the left hip and can flex the left hip to 90 degrees. She has difficulty extending her left knee, but with a significant amount of encouragement, she can get it completely straight and hold it there and then let it bend to about 90 degrees. Calf is soft, nontender. No evidence of phlebitis. She has no effusion of her left knee. She is hypersensitive to any touch about the lateral incision from the left knee to mid thigh and she is hypersensitive to a motion of passive or active of the left hip. X-rays show a long IM rickey on a hip nail holding excellent a reduction of a subtrochanteric fracture of the left hip. This fracture seems healed centrally, but there it may well not be completely healed along the lateral cortex. There is 1 circumferential femur holding the distal and medial portion of the neck in place, but it healed in a good position. The patient has a plate from the left knee lateral cortex up to the mid femur. This is held in place with multiple screws through the intercondylar area, 2 long screw that go through the plate through the bone and lock through the IM rickey and 2 cables and 2 unicortical screws on the more proximal part of the plate. What cannot be seen is how big or exactly where the defect was on the anterior femur. Neurovascular status of the leg is good. The patient's pain tolerance is 4. The patient states she simply wants all the metal removed. I have cautioned her about doing that abruptly. It has been less than a year since the subtrochanteric fracture has been healed and we need to pay attention to that and we should do a CT scan of the distal femur to see how much of the anterior cortex was injured passing the IM rickey. The patient also uses a rollator and can now walk without the rollator, so she needs physical therapy to increase her motion of both her left hip and left knee as well as balance and ambulation exercises. The patient would like to get a CT scan and physical therapy down at [place]. She should return in 2 months and we will see if her motion has been improved in both her knee and her hip, see if her walking balance has been improved and if she is strong enough to walk without the rollator. We have ordered the CT scan of the femur and ordered physical therapy for her at the [facility]. DICTATED BY: Cyndi Pike II/MARI JOB# [id number] CNPN Observed: 10/12/2024 12:00 AM Status: COMPLETED Source: [facility] NIKKIE BUCK ([id number]) 1965 F Date Time Provider Department 10/12/24 RISSA HANKS During your visit today, we recorded the following information about you: Xiang Hamilton 10/12/2024 1:20 PM Signed Electromechanical Equipment Tester from [facility] called and stated patient needs referral to Orthopedic Surgery, pt is scheduled with Dr Rob Gonzáles. Naheed Randhawa MA 10/12/2024 1:39 PM Signed Consult pended, please file if agreeable. Can then send order to patients orthopaedic surgeon. ;YASMEEN Villanueva Liza D, MD 10/15/2024 1:27 AM Signed Put his name on consult order and filed Daphne Menendez LPN 10/15/2024 9:37 AM Signed Consult order printed and faxed. Allergies As of Date: 10/12/2024 Noted Allergy Reaction DULOXETINE 06/15/2021 7 - Swelling 14 - Other: See Comments Comments: Other reaction(s): swelling Other reaction(s): Unknown Other reaction(s): swelling NSAIDS (NON-STEROIDAL ANTI-INFLAM*08/15/2020 8 - GI Upset Comments: Other reaction(s): GI Upset Other reaction(s): cramping, GI Upset, Other (See Comments), Upset Stomach Severe stomach pain Other reaction(s): GI Upset PENICILLINS 08/15/2020 2 - Rash 14 - Other: See Comments Comments: Other reaction(s): GI Upset, hives, horrible taste in mouth Other reaction(s): GI Upset, GI Upset, horrible taste in mouth, leaves a bad taste in her mouth., NEEDS FOLLOW-UP Other reaction(s): GI Upset, hives, horrible taste in mouth PREGABALIN 08/15/2020 7 - Swelling 14 - Other: See Comments 16 - Unknown Comments: Other reaction(s): swelling, Swelling Other reaction(s): Swelling, Unknown Other reaction(s): swelling, Swelling AMLODIPINE 06/22/2024 5 - Intolerance Comments: leg swelling at 10 mg CELEBREX (CELECOXIB) 08/09/2024 5 - Intolerance Comments: feet and leg swelling PENICILLIN G 11/11/2021 8 - GI Upset IBUPROFEN 11/11/2021 8 - GI Upset Comments: Vomiting cramping TYLENOL (ACETAMINOPHEN) 10/27/2022 8 - GI Upset Date Reviewed: 09/27/2024 Reviewed by: Sade Cleaning RN - Fully Assessed Reason for Visit: Orders [681] Primary Visit Diagnosis:Osteoporosis with pathological fracture with routine healing, subsequent encounter [M80.00XD] Other Visit Diagnosis:History of right hip replacement [Z96.641] Order(s):CONSULT TO ORTHOPAEDICS [9026] Order #: [id number]: 1 FUTURE Prescriptions as of 10/15/2024 - oxyCODONE IR (ROXICODONE) 5 mg immediate release tablet Take 1 tablet by mouth every 8 hours as needed for pain for up to 7 days. Patient should start on October 15, 2024. - insulin glargine 100 unit/mL (3 mL) Inject 24 Units subcutaneously daily at bedtime. - Insulin Willow, Disposable, (BD ULTRA-FINE PADMINI PEN NEEDLE) 32 gauge x 5/32" 1 Each three times a day. - Blood-Glucose Sensor (DEXCOM G6 SENSOR) jaguar 3 Each every 10 days. - empagliflozin (JARDIANCE) 10 mg tablet Take 1 tablet by mouth daily with breakfast. - losartan (COZAAR) 100 mg tablet Take 1 tablet by mouth once daily. - spironolactone (ALDACTONE) 25 mg tablet Take 1 tablet by mouth once daily. - hydrALAZINE (APRESOLINE) 50 mg tablet Take 1 tablet by mouth four times daily. Hold if blood pressure is less than 110/60 - Cholecalciferol, Vitamin D3, 25 mcg (1,000 unit) cap Take 1 capsule by mouth once daily. - gabapentin (NEURONTIN) 800 mg tablet Take 1 tablet by mouth four times daily for 90 days. - tiZANidine (ZANAFLEX) 4 mg tablet Take 1 tablet by mouth three times a day as needed. - Blood-Glucose Meter,Continuous (DEXCOM G6 HR COORDINATOR) mis 1 Each once daily. - Blood-Glucose Transmitter (DEXCOM G6 TRANSMITTER) jaguar 1 Each once daily. - hydroCHLOROthiazide 25 mg tablet Take 1 tablet by mouth once daily. - polyethylene glycol 3350 17 gram/dose powder Take 17 g by mouth once daily as needed for constipation. - ondansetron orally disintegrating (ZOFRAN ODT) 8 mg disintegrating tablet Take 1 tablet by mouth every 8 hours as needed for nausea/vomiting. - omeprazole (PRILOSEC) 40 mg capsule Take 1 capsule by mouth two times a day. - blood sugar diagnostic ([employer] VERIO TEST STRIPS) test strip 1 Strip four times daily. Use as instructed - fluticasone-salmeterol HFA (ADVAIR HFA) 230-21 mcg/actuation inhaler Inhale 2 Puffs as instructed two times a day. - loratadine (CLARITIN) 10 mg tablet Take 1 tablet by mouth once daily. - albuterol HFA (PROVENTIL HFA, VENTOLIN HFA) 90 mcg/actuation inhaler Inhale 2 Puffs as instructed every 4 hours as needed for wheezing/shortness of breath. - CPAP/BIPAP/OTHER Type .CPAPSettings into a note to see current settings/supplies/DME information. - insulin lispro (HUMALOG KWIKPEN) 100 unit/mL Inject 8 Units subcutaneously three times a day before meals. Taking as needed Problem List As Of Date 10/12/2024 Noted Resolved Uncontrolled type 2 diabetes mellitus with hype*08/28/2022 Chronic midline low back pain with sciatica [M5*08/28/2022 Chronic obstructive lung disease (HCC) [J44.9] 10/18/2022 11/05/2022 Chronic obstructive pulmonary disease, unspecif*11/30/2021 Hyperlipidemia, unspecified [E78.5] 06/15/2021 Tobacco use [Z72.0] 11/05/[address] scan, kidney [R93.429] 11/05/2022 Dyspepsia [R10.13] 02/21/2023 Epigastric pain [R10.13] 02/21/2023 Right upper quadrant abdominal pain [R10.11] 02/21/2023 Chronic gastritis without bleeding [K29.50] 03/12/2023 Gastric wall thickening [K31.89] 03/12/2023 Primary hypertension [I10] 06/11/2023 Neuropathy [G62.9] 06/11/2023 Back pain with history of spinal surgery [M54.9*06/11/2023 FRANCISCO (obstructive sleep apnea) [G47.33] 06/11/2023 DM gastroparesis (HCC) [E11.43, K31.84] 07/04/2023 Abdominal bloating [R14.0] 10/13/2023 Obesity [E66.9] 10/13/2023 Diagnosed: 10/13/2023 Postlaminectomy syndrome of lumbar region [M96.*10/31/2022 Diagnosed: 10/13/2023 Sciatica [M54.30] 11/18/2022 Diagnosed: 10/13/2023 Fall at home, initial encounter [W19.XXXA, Y92.*11/26/2023 12/04/2023 Nicotine use disorder, F17.2 [F17.200] 11/28/2023 Osteoporosis [M81.0] 08/20/2024 Encounter Status:Closed by DAPHNE MENENDEZ on 10/15/24 25(OH)D3 SERPL[facility] Collected: 09/22/19 3:57 PM Status: F Source: [facility] Order Comment: Specimen Type : BLOOD SPECIMEN Ordering Facility: [facility] Address: [address] [place] [address] TYPE CODE TESTS RESULT OUT OF RANGE REFERENCE UNITS LAB 1988-11(LOINC) 25(OH)D3 SerP-[facility] 27.4 Low 31.0-80.0 ng/mL Result Comment: Classificati on of 25 [place] Vitamin D status: Deficiency/Insufficiency: < or = 30 ng/ml. Sufficiency/Optimal Levels: 31-80 ng/mL Toxicity: > 100 ng/mL. Test performed by chemiluminescent immunoassay. Performed By: #### 1988-11 ## ## [facility] CLIA [id number] [address] [place] [address] [place] COMP METAB 2000 PNL SERPL Collected: 3:57 PM Status: F Source: [facility] Order Comment: Specimen Type : BLOOD SPECIMEN Ordering Facility: [facility] Address: [address], [place] [address] TYPE CODE TESTS RESULT OUT OF RANGE REFERENCE UNITS LAB 2885-2(LOINC) Prot SerPl-mCnc 7.2 6.3-8.0 g/dL LAB 1751-7(LOINC) Albumin SerPl-mCnc 4.2 3.9-4.9 g/dL LAB 45088-8(LOINC) Calcium SerPl-mCnc 10.0 8.5-10.2 mg/dL LAB 1975-2(LOINC) Bilirub SerPl-mCnc 0.2 0.2-1.3 mg/dL LAB 6768-6(LOINC) ALP SerPl-cCnc 98 34-123 U/L LAB 1920-8(LOINC) AST SerPl-cCnc 14 13-35 U/L LAB 1742-6(LOINC) ALT SerPl-cCnc 10 7-38 U/L LAB 2345-7(LOINC) Glucose SerPl-mCnc 62 Low 74-99 mg/dL Result Comment: The [place] [employer] (ADA) provides guidance for cutoff values for fasting glucose and random glucose. The ADA defines fasting as no caloric intake for at least 8 hours. Fasting plasma glucose results between 100 to 125 mg/dL indicate increased risk for diabetes (prediabetes). Fasting plasma glucose results greater than or equal to 126 mg/dL meet the criteria for diagnosis of diabetes. In the absence of unequivocal hyperglycemia, results should be confirmed by repeat testing. In a patient with classic symptoms of hyperglycemia or hyperglycemic crisis, random plasma glucose results greater than or equal to 200 mg/dL meet the criteria for diagnosis of diabetes. Reference: Standards of Medical Care in Diabetes 2016, [place] [employer]. Diabetes Care. 2016.39(Suppl 1). LAB 3094-0(LOINC) BUN SerPl-mCnc 35 High 7-21 mg/ dL LAB 2160-0(LOINC) Creat SerPl-mCnc 1.46 High 0.58-0.96 mg/dL LAB 2951-2(LOINC) Sodium SerPl-sCnc 140 136-144 mmol/L LAB 2823-3(LOINC) Potassium SerPl-sCnc 5.5 High 3.7-5.1 mmol/L LAB 2075-0(LOINC) Chloride SerPl-sCnc 104 98-107 mmol/L LAB 2027-9(LOINC) CO2 SerPl-sCnc 26 22-30 mmo l/L LAB 93164-4(LOINC) Anion Gap SerPl-sCnc 10 8-15 mmol/L LAB 21544-4(LOINC) Creatinine + eGFR Pnl SerPlBld 41 Low >=60 mL/min/1 .73m??? Result Comment: Estimated Gl omerular Filtration Rate (eGFR) is calculated using the 2020 CKD-EPI creatinine equation. This equation utilizes serum creatinine, sex, and age as parameters. The creatinine assay has traceable calibration to isotope dilution-mass spectrometry. Refer to KDIGO guidelines for clinical interpretation. In patients with unstable renal function, e.g. those with acute kidney injury, the eGFR may not accurately reflect actual GFR. Performed By: #### 82798-7, 60606-9 #### [facility] CLIA [id number] [address] [place] [address] [place] MAGNESIUM SERPL-MCNC Collected: 09/22/2024 3:57 PM S tatus: F Source: [facility] Order Comment: Specimen Type : BLOOD SPECIMEN Ordering Facility: [facility] Address: [address] [place] [address] TYPE CODE TESTS RESULT OUT OF RANGE REFERENCE UNITS LAB 09802-1([facility]) Magnesium SerPl-mCnc 2.4 High 1.7-2.3 mg/dL Performed By: #### 75793-3, 98792-9 #### [facility] CLIA [id number] [address] [place] [address] [place] PROGRESS Observed: 09/22/2024 3:21 PM Status: COMPLETED Source: [facility] HNO ID: [id number] Author: RISSA HANKS MD Service: ? Author Type: Physician Type: Progress Notes Filed: 10/11/2024 13:54 Note Text: This note was created using NoteWriter. Subjective Nikkie Buck is a 58 year old female. Patient presents with: Established Patient: Medication follow up/Pain management and BP check SUBJECTIVE: Nikkie Buck is a 58 year old year old lady here today for follow up appointment for review of medical conditions. Nikkie Buck is a 58-year-old female with a history of multiple fractures and surgeries, presenting for follow-up on blood pressure and management of chronic pain. Nikkie reports a history of a severe left femur fracture in November of last year, which required surgical intervention with screws and a plate. She notes that the fracture has not fully healed. In June, she experienced a fall that resulted in a right hip fracture, necessitating a hip replacement performed by Dr. Siu at [facility]. She describes feeling "like a penguin walking on stilts" due to the misalignment and pain from the fractures and surgeries. She also reports a sensation of her leg wanting to "fly completely out" when walking, causing instability and fear of falling. She denies any open fractures. Nikkie is currently under the care of Dr. Siu for both fractures and has an appointment scheduled for tomorrow. She is also scheduled for a Reclast infusion on September 27 to address potential low bone density, which may be contributing to the delayed healing of her fractures. She is taking vitamin D as prescribed. Nikkie is experiencing significant pain and stress, exacerbated by living alone and having to manage daily activities despite the pain. She is currently taking oxycodone three times a day for pain management but expresses frustration with the weekly prescription refills and the stigma associated with frequent pharmacy visits. She denies any illegal drug use or alcohol consumption. She also mentions a history of diabetes and is working on improving her blood sugar levels, noting that her Dexcom device has been helpful in managing her condition. She reports dry skin, which she attributes to her diabetes. She inquires about her kidney function, expressing concern about potential issues. PAST MEDICAL HISTORY Diagnosis Date Abdominal bloating 10/13/2023 Arthritis COPD (chronic obstructive pulmonary disease) (HCC) Diabetes (HCC) Hypertension Median arcuate ligament syndrome (HCC) Sleep apnea Current Outpatient Medications Medication Sig oxyCODONE IR (ROXICODONE) 5 mg immediate release tablet Take 1 tablet by mouth every 8 hours as needed for pain for up to 7 days. Blood-Glucose Sensor (DEXCOM G6 SENSOR) jaguar 3 Each every 10 days. empagliflozin (JARDIANCE) 10 mg tablet Take 1 tablet by mouth daily with breakfast. losartan (COZAAR) 100 mg tablet Take 1 tablet by mouth once daily. hydrALAZINE (APRESOLINE) 50 mg tablet Take 1 tablet by mouth four times daily. Hold if blood pressure is less than 110/60 Cholecalciferol, Vitamin D3, 25 mcg (1,000 unit) cap Take 1 capsule by mouth once daily. gabapentin (NEURONTIN) 800 mg tablet Take 1 tablet by mouth four times daily for 90 days. tiZANidine (ZANAFLEX) 4 mg tablet Take 1 tablet by mouth three times a day as needed. Blood-Glucose Meter,Continuous (DEXCOM G6 HR COORDINATOR) misc 1 Each once daily. Blood-Glucose Transmitter (DEXCOM G6 TRANSMITTER) jaguar 1 Each once daily. hydroCHLOROthiazide 25 mg tablet Take 1 tablet by mouth once daily. insulin glargine 100 unit/mL (3 mL) Inject 24 Units subcutaneously daily at bedtime. polyethylene glycol 3350 17 gram/dose powder Take 17 g by mouth once daily as needed for constipation. ondansetron orally disintegrating (ZOFRAN ODT) 8 mg disintegrating tablet Take 1 tablet by mouth every 8 hours as needed for nausea/vomiting. omeprazole (PRILOSEC) 40 mg capsule Take 1 capsule by mouth two times a day. blood sugar diagnostic ([employer]UCH VERIO TEST STRIPS) test strip 1 Strip four times daily. Use as instructed Insulin Willow, Disposable, (BD ULTRA-FINE PADMINI PEN NEEDLE) 32 gauge x 5/32" 1 Each three times a day. fluticasone-salmeterol HFA (ADVAIR HFA) 230-21 mcg/actuation inhaler Inhale 2 Puffs as instructed two times a day. loratadine (CLARITIN) 10 mg tablet Take 1 tablet by mouth once daily. albuterol HFA (PROVENTIL HFA, VENTOLIN HFA) 90 mcg/actuation inhaler Inhale 2 Puffs as instructed every 4 hours as needed for wheezing/shortness of breath. insulin lispro (HUMALOG KWIKPEN) 100 unit/mL Inject 8 Units subcutaneously three times a day before meals. Taking as needed zoledronic acid (RECLAST) 5 mg/100 mL PREMIX piggyback Inject 100 mL intravenously every year. (Patient not taking: Reported on 09/22/2024) spironolactone (ALDACTONE) 25 mg tablet Take 1 tablet by mouth once daily. CPAP/BIPAP/OTHER Type .CPAPSettings into a note to see current settings/supplies/DME information. (Patient not taking: Reported on 09/22/2024) No current facility-administered medications for this visit. Review of Systems Objective BP 124/78 Pulse 82 Temp 36.3 ?C (97.4 ?F) Resp 16 Wt 65.3 kg (143 lb 15.4 oz) SpO2 98% BMI 28.12 kg/m? Physical Exam Constitutional: Appearance: Normal appearance. HENT: Head: Normocephalic. Eyes: Conjunctiva/sclera: Conjunctivae normal. Cardiovascular: Rate and Rhythm: Normal rate and regular rhythm. Heart sounds: Normal heart sounds. Pulmonary: Effort: Pulmonary effort is normal. Breath sounds: Normal breath sounds. Musculoskeletal: Comments: Indicated pain in right hip and left hip and left femur Skin: General: Skin is warm and dry. Neurological: General: No focal deficit present. Mental Status: She is alert and oriented to person, place, and time. Psychiatric: Mood and Affect: Mood normal. Behavior: Behavior normal. Thought Content: Thought content normal. Judgment: Judgment normal. Assessment and Plan # Primary hypertension (I10) - Blood pressure is well-controlled. - Continue current management. # Closed fracture of left femur, unspecified fracture morphology, unspecified portion of femur, sequela (S72.92XS) # S/p left hip fracture (Z87.81) - Fracture from November of last year remains incompletely healed. - Follow-up with Dr. Siu at [facility] scheduled for tomorrow to manage orthopedic issues. - Reclast infusion scheduled for September 27 to improve bone density and facilitate healing. # Chronic midline low back pain with sciatica, sciatica laterality unspecified (M54.40) - Pain is increasing; patient describes significant discomfort and functional limitations. - Referral to pain management pending; will continue to manage pain with oxycodone 3 times daily, prescriptions provided weekly. - Patient instructed to call the office two days before the prescription is due for refill coordination. # History of right hip replacement (Z96.641) - Right hip replacement performed in June following a fall. - Follow-up with Dr. Siu at [facility] scheduled for tomorrow. # Encounter for long-term current use of medication (Z79.879) - Currently on oxycodone for pain management. - Weekly prescriptions provided until pain management appointment is scheduled. # Uncontrolled type 2 diabetes mellitus with hyperglycemia (HCC) (E11.65) - Last hemoglobin A1c performed in August; monitoring with Dexcom. - Continue current diabetes management. # Osteoporosis with pathological fracture with routine healing, subsequent encounter (M80.00XD) - Reclast infusion scheduled for September 27 to improve bone density. - Discussed importance of building bone density to facilitate fracture healing and potential hardware removal. # Vitamin D deficiency (E55.9) - Ordered vitamin D level to be drawn today along with CMP and magnesium. - Patient is currently taking prescribed vitamin D supplementation. Rissa Hanks MD CNOV Observed: 09/22/2024 2:20 PM Status: COMPLETED Source: [facility] Office Visit (INTMWS) NIKKIE BUCK ([id number]) 1965 F Date Time Provider Department 09/22/24 2:20 PM RISSA HANKS INTMWS During your visit today, we recorded the following information about you: Temperature Pulse Respiration Blood pressure 97.4 degrees 82/minute 16/minute 124/78 Weight 65.3 kg Rissa Hanks MD 10/11/2024 1:54 PM Signed This note was created using AirXPriter. Subjective Nikkie Buck is a 58 year old female. Patient presents with: Established Patient: Medication follow up/Pain management and BP check SUBJECTIVE: Nikkie Buck is a 58 year old year old lady here today for follow up appointment for review of medical conditions. Nikkie Buck is a 58-year-old female with a history of multiple fractures and surgeries, presenting for follow-up on blood pressure and management of chronic pain. Nikkie reports a history of a severe left femur fracture in November of last year, which required surgical intervention with screws and a plate. She notes that the fracture has not fully healed. In June, she experienced a fall that resulted in a right hip fracture, necessitating a hip replacement performed by Dr. Siu at [facility]. She describes feeling "like a penguin walking on stilts" due to the misalignment and pain from the fractures and surgeries. She also reports a sensation of her leg wanting to "fly completely out" when walking, causing instability and fear of falling. She denies any open fractures. Nikkie is currently under the care of Dr. Siu for both fractures and has an appointment scheduled for tomorrow. She is also scheduled for a Reclast infusion on September 27 to address potential low bone density, which may be contributing to the delayed healing of her fractures. She is taking vitamin D as prescribed. Nikkie is experiencing significant pain and stress, exacerbated by living alone and having to manage daily activities despite the pain. She is currently taking oxycodone three times a day for pain management but expresses frustration with the weekly prescription refills and the stigma associated with frequent pharmacy visits. She denies any illegal drug use or alcohol consumption. She also mentions a history of diabetes and is working on improving her blood sugar levels, noting that her Dexcom device has been helpful in managing her condition. She reports dry skin, which she attributes to her diabetes. She inquires about her kidney function, expressing concern about potential issues. PAST MEDICAL HISTORY Diagnosis Date Abdominal bloating 10/13/2023 Arthritis COPD (chronic obstructive pulmonary disease) ([facility]) Diabetes ([facility]) Hypertension Median arcuate ligament syndrome (HCC) Sleep apnea Current Outpatient Medications Medication Sig oxyCODONE IR (ROXICODONE) 5 mg immediate release tablet Take 1 tablet by mouth every 8 hours as needed for pain for up to 7 days. Blood-Glucose Sensor (DEXCOM G6 SENSOR) jaguar 3 Each every 10 days. empagliflozin (JARDIANCE) 10 mg tablet Take 1 tablet by mouth daily with breakfast. losartan (COZAAR) 100 mg tablet Take 1 tablet by mouth once daily. hydrALAZINE (APRESOLINE) 50 mg tablet Take 1 tablet by mouth four times daily. Hold if blood pressure is less than 110/60 Cholecalciferol, Vitamin D3, 25 mcg (1,000 unit) cap Take 1 capsule by mouth once daily. gabapentin (NEURONTIN) 800 mg tablet Take 1 tablet by mouth four times daily for 90 days. tiZANidine (ZANAFLEX) 4 mg tablet Take 1 tablet by mouth three times a day as needed. Blood-Glucose Meter,Continuous (DEXCOM G6 HR COORDINATOR) misc 1 Each once daily. Blood-Glucose Transmitter (DEXCOM G6 TRANSMITTER) jaguar 1 Each once daily. hydroCHLOROthiazide 25 mg tablet Take 1 tablet by mouth once daily. insulin glargine 100 unit/mL (3 mL) Inject 24 Units subcutaneously daily at bedtime. polyethylene glycol 3350 17 gram/dose powder Take 17 g by mouth once daily as needed for constipation. ondansetron orally disintegrating (ZOFRAN ODT) 8 mg disintegrating tablet Take 1 tablet by mouth every 8 hours as needed for nausea/vomiting. omeprazole (PRILOSEC) 40 mg capsule Take 1 capsule by mouth two times a day. blood sugar diagnostic ([employer] VERIO TEST STRIPS) test strip 1 Strip four times daily. Use as instructed Insulin Willow, Disposable, (BD ULTRA-FINE PADMINI PEN NEEDLE) 32 gauge x 5/32" 1 Each three times a day. fluticasone-salmeterol HFA (ADVAIR HFA) 230-21 mcg/actuation inhaler Inhale 2 Puffs as instructed two times a day. loratadine (CLARITIN) 10 mg tablet Take 1 tablet by mouth once daily. albuterol HFA (PROVENTIL HFA, VENTOLIN HFA) 90 mcg/actuation inhaler Inhale 2 Puffs as instructed every 4 hours as needed for wheezing/shortness of breath. insulin lispro (HUMALOG KWIKPEN) 100 unit/mL Inject 8 Units subcutaneously three times a day before meals. Taking as needed zoledronic acid (RECLAST) 5 mg/100 mL PREMIX piggyback Inject 100 mL intravenously every year. (Patient not taking: Reported on 09/22/2024) spironolactone (ALDACTONE) 25 mg tablet Take 1 tablet by mouth once daily. CPAP/BIPAP/OTHER Type .CPAPSettings into a note to see current settings/supplies/DME information. (Patient not taking: Reported on 09/22/2024) No current facility-administered medications for this visit. Review of Systems Objective BP 124/78 Pulse 82 Temp 36.3 ?C (97.4 ?F) Resp 16 Wt 65.3 kg (143 lb 15.4 oz) SpO2 98% BMI 28.12 kg/m? Physical Exam Constitutional: Appearance: Normal appearance. HENT: Head: Normocephalic. Eyes: Conjunctiva/sclera: Conjunctivae normal. Cardiovascular: Rate and Rhythm: Normal rate and regular rhythm. Heart sounds: Normal heart sounds. Pulmonary: Effort: Pulmonary effort is normal. Breath sounds: Normal breath sounds. Musculoskeletal: Comments: Indicated pain in right hip and left hip and left femur Skin: General: Skin is warm and dry. Neurological: General: No focal deficit present. Mental Status: She is alert and oriented to person, place, and time. Psychiatric: Mood and Affect: Mood normal. Behavior: Behavior normal. Thought Content: Thought content normal. Judgment: Judgment normal. Assessment and Plan # Primary hypertension (I10) - Blood pressure is well-controlled. - Continue current management. # Closed fracture of left femur, unspecified fracture morphology, unspecified portion of femur, sequela (S72.92XS) # S/p left hip fracture (Z87.81) - Fracture from November of last year remains incompletely healed. - Follow-up with Dr. Siu at [facility] scheduled for tomorrow to manage orthopedic issues. - Reclast infusion scheduled for September 27 to improve bone density and facilitate healing. # Chronic midline low back pain with sciatica, sciatica laterality unspecified (M54.40) - Pain is increasing; patient describes significant discomfort and functional limitations. - Referral to pain management pending; will continue to manage pain with oxycodone 3 times daily, prescriptions provided weekly. - Patient instructed to call the office two days before the prescription is due for refill coordination. # History of right hip replacement (Z96.641) - Right hip replacement performed in June following a fall. - Follow-up with Dr. Siu at [facility] scheduled for tomorrow. # Encounter for long-term current use of medication (Z79.899) - Currently on oxycodone for pain management. - Weekly prescriptions provided until pain management appointment is scheduled. # Uncontrolled type 2 diabetes mellitus with hyperglycemia (HCC) (E11.65) - Last hemoglobin A1c performed in August; monitoring with Dexcom. - Continue current diabetes management. # Osteoporosis with pathological fracture with routine healing, subsequent encounter (M80.00XD) - Reclast infusion scheduled for September 27 to improve bone density. - Discussed importance of building bone density to facilitate fracture healing and potential hardware removal. # Vitamin D deficiency (E55.9) - Ordered vitamin D level to be drawn today along with CMP and magnesium. - Patient is currently taking prescribed vitamin D supplementation. MD Jasvir Li Liza D, MD 09/22/2024 3:42 PM Addendum - Continue taking Oxycodone three times a day as prescribed. Call our office two days before your prescription runs out to request a refill. - Complete lab tests today, including Vitamin D, CMP, and magnesium levels. - Attend your Reclast appointment on September 27 at 10:30 am; arrive by 10:15 am. - Follow up with Dr. Siu for orthopedic care as scheduled. - Next check-up appointment in December. Let us know if have not gotten appointment with pain management at least scheduled in next few weeks. Referring Provider: GEORGINA GONSALEZ [[id number]] Allergies As of Date: 09/22/2024 Noted Allergy Reaction DULOXETINE 06/15/2021 7 - Swelling 14 - Other: See Comments Comments: Other reaction(s): swelling Other reaction(s): Unknown Other reaction(s): swelling NSAIDS (NON-STEROIDAL ANTI-INFLAM*08/15/2020 8 - GI Upset Comments: Other reaction(s): GI Upset Other reaction(s): cramping, GI Upset, Other (See Comments), Upset Stomach Severe stomach pain Other reaction(s): GI Upset PENICILLINS 08/15/2020 2 - Rash 14 - Other: See Comments Comments: Other reaction(s): GI Upset, hives, horrible taste in mouth Other reaction(s): GI Upset, GI Upset, horrible taste in mouth, leaves a bad taste in her mouth., NEEDS FOLLOW-UP Other reaction(s): GI Upset, hives, horrible taste in mouth PREGABALIN 08/15/2020 7 - Swelling 14 - Other: See Comments 16 - Unknown Comments: Other reaction(s): swelling, Swelling Other reaction(s): Swelling, Unknown Other reaction(s): swelling, Swelling AMLODIPINE 06/22/2024 5 - Intolerance Comments: leg swelling at 10 mg CELEBREX (CELECOXIB) 08/09/2024 5 - Intolerance Comments: feet and leg swelling PENICILLIN G 11/11/2021 8 - GI Upset IBUPROFEN 11/11/2021 8 - GI Upset Comments: Vomiting cramping TYLENOL (ACETAMINOPHEN) 10/27/2022 8 - GI Upset Date Reviewed: 09/22/2024 Reviewed by: Lona Hopson LPN - Fully Assessed Reason for Visit: Established Patient [175] Cmt: Medication follow up/Pain management and BP check Primary Visit Diagnosis:Primary hypertension [I10] Other Visit Diagnoses:Closed fracture of left femur, unspecified fracture morphology, unspecified portion of femur, sequela [S72.92XS] Chronic midline low back pain with sciatica, sciatica laterality unspecified [M54.40, G89.29] History of right hip replacement [Z96.641] Encounter for long-term current use of medication [Z79.899] Uncontrolled type 2 diabetes mellitus with hyperglycemia (HCC) [E11.65] Osteoporosis with pathological fracture with routine healing, subsequent encounter [M80.00XD] Vitamin D deficiency [E55.9] S/p left hip fracture [Z87.81] Order(s):VITAMIN D 25 HYDROXY [SQVITD] Order #: [id number] FUTURE COMPREHENSIVE METABOLIC PANEL [SQCMP] Order #: [id number] FUTURE MAGNESIUM [SQMG1] Order #: [id number] FUTURE [] oxyCODONE IR (ROXICODONE) 5 mg immediate release tabletTake 1 tablet by mouth every 8 hours as needed for pain for up to 7 days. Patient should start on October 01, 2024.Disp: 21 tabletRfl: 0 Prescriptions as of 10/11/2024 - insulin glargine 100 unit/mL (3 mL) Inject 24 Units subcutaneously daily at bedtime. - oxyCODONE IR (ROXICODONE) 5 mg immediate release tablet Take 1 tablet by mouth every 8 hours as needed for pain for up to 7 days. Patient should start on October 08, 2024. - Insulin Willow, Disposable, (BD ULTRA-FINE PADMINI PEN NEEDLE) 32 gauge x 5/32" 1 Each three times a day. - Blood-Glucose Sensor (DEXCOM G6 SENSOR) jaguar 3 Each every 10 days. - empagliflozin (JARDIANCE) 10 mg tablet Take 1 tablet by mouth daily with breakfast. - losartan (COZAAR) 100 mg tablet Take 1 tablet by mouth once daily. - spironolactone (ALDACTONE) 25 mg tablet Take 1 tablet by mouth once daily. - hydrALAZINE (APRESOLINE) 50 mg tablet Take 1 tablet by mouth four times daily. Hold if blood pressure is less than 110/60 - Cholecalciferol, Vitamin D3, 25 mcg (1,000 unit) cap Take 1 capsule by mouth once daily. - gabapentin (NEURONTIN) 800 mg tablet Take 1 tablet by mouth four times daily for 90 days. - tiZANidine (ZANAFLEX) 4 mg tablet Take 1 tablet by mouth three times a day as needed. - Blood-Glucose Meter,Continuous (DEXCOM G6 HR COORDINATOR) misc 1 Each once daily. - Blood-Glucose Transmitter (DEXCOM G6 TRANSMITTER) jaguar 1 Each once daily. - hydroCHLOROthiazide 25 mg tablet Take 1 tablet by mouth once daily. - polyethylene glycol 3350 17 gram/dose powder Take 17 g by mouth once daily as needed for constipation. - ondansetron orally disintegrating (ZOFRAN ODT) 8 mg disintegrating tablet Take 1 tablet by mouth every 8 hours as needed for nausea/vomiting. - omeprazole (PRILOSEC) 40 mg capsule Take 1 capsule by mouth two times a day. - blood sugar diagnostic ([employer]UCH VERIO TEST STRIPS) test strip 1 Strip four times daily. Use as instructed - fluticasone-salmeterol HFA (ADVAIR HFA) 230-21 mcg/actuation inhaler Inhale 2 Puffs as instructed two times a day. - loratadine (CLARITIN) 10 mg tablet Take 1 tablet by mouth once daily. - albuterol HFA (PROVENTIL HFA, VENTOLIN HFA) 90 mcg/actuation inhaler Inhale 2 Puffs as instructed every 4 hours as needed for wheezing/shortness of breath. - CPAP/BIPAP/OTHER Type .CPAPSettings into a note to see current settings/supplies/DME information. - insulin lispro (HUMALOG KWIKPEN) 100 unit/mL Inject 8 Units subcutaneously three times a day before meals. Taking as needed Problem List As Of Date 09/22/2024 Noted Resolved Uncontrolled type 2 diabetes mellitus with hype*08/28/2022 Chronic midline low back pain with sciatica [M5*08/28/2022 Chronic obstructive lung disease (HCC) [J44.9] 10/18/2022 11/05/2022 Chronic obstructive pulmonary disease, unspecif*11/30/2021 Hyperlipidemia, unspecified [E78.5] 06/15/2021 Tobacco use [Z72.0] 11/05/[address] scan, kidney [R93.429] 11/05/2022 Dyspepsia [R10.13] 02/21/2023 Epigastric pain [R10.13] 02/21/2023 Right upper quadrant abdominal pain [R10.11] 02/21/2023 Chronic gastritis without bleeding [K29.50] 03/12/2023 Gastric wall thickening [K31.89] 03/12/2023 Primary hypertension [I10] 06/11/2023 Neuropathy [G62.9] 06/11/2023 Back pain with history of spinal surgery [M54.9*06/11/2023 FRANCISCO (obstructive sleep apnea) [G47.33] 06/11/2023 DM gastroparesis (HCC) [E11.43, K31.84] 07/04/2023 Abdominal bloating [R14.0] 10/13/2023 Obesity [E66.9] 10/13/2023 Diagnosed: 10/13/2023 Postlaminectomy syndrome of lumbar region [M96.*10/31/2022 Diagnosed: 10/13/2023 Sciatica [M54.30] 11/18/2022 Diagnosed: 10/13/2023 Fall at home, initial encounter [W19.XXXA, Y92.*11/26/2023 12/04/2023 Nicotine use disorder, F17.2 [F17.200] 11/28/2023 Osteoporosis [M81.0] 08/20/2024 Other instructions from your clinician: - Continue taking Oxycodone three times a day as prescribed. Call our office two days before your prescription runs out to request a refill. - Complete lab tests today, including Vitamin D, CMP, and magnesium levels. - Attend your Reclast appointment on September 27 at 10:30 am; arrive by 10:15 am. - Follow up with Dr. Siu for orthopedic care as scheduled. - Next check-up appointment in December. Let us know if have not gotten appointment with pain management at least scheduled in next few weeks. Prescriptions ordered this encounter Disp Refills Start End OXYCODONE 5 MG TABLET 21 t* 0 09/24/2024 10/06/2024 Route: ORAL Sig: Take 1 tablet by mouth every 8 hours as needed for pain for up to 7 days. Patient should start on September 24, 2024. OXYCODONE 5 MG TABLET 21 t* 0 10/01/2024 10/08/2024 Route: ORAL Sig: Take 1 tablet by mouth every 8 hours as needed for pain for up to 7 days. Patient should start on October 01, 2024. Medications Discontinued During This Encounter Prescriptions - oxyCODONE IR (ROXICODONE) 5 mg immediate release tablet (Discontinued) Take 1 tablet by mouth every 8 hours as needed for pain for up to 7 days. Level of Service: OFFICE/OUTPATIENT ESTABLISHED MOD [facility] 30 MIN [34272] Additional E/M codes: VISIT CPLX INHERENT EANDM ASSOC WITH MED * Follow-up and Disposition History for Encounter Date Provider Department Center 09/22/2024 [id number] [facility] Encounter Status:Closed by ABHINAV AKINS on 10/11/24 CNPChristine Observed: 09/13/2024 12:00 AM Status: COMPLETED Source: [facility] Telephone (INTMWS) NIKKIE BUCK ([id number]) 1965 F Date Time Provider Department 09/13/24 GEORGINA GONSALEZ During your visit today, we recorded the following information about you: Bettina Grewal RN 09/13/2024 9:56 AM Signed Patient calls to report that she needs the glucose sensor applicator order sent to [facility] as they only received the transmitter and petrologist. Pended per request. VERONICA Carr Terri, SURVEYOR CHAIN HELPER.PATIENT SERVICES COORDINATOR 09/13/2024 10:33 AM Signed ok Allergies As of Date: 09/13/2024 Noted Allergy Reaction DULOXETINE 06/15/2021 7 - Swelling 14 - Other: See Comments Comments: Other reaction(s): swelling Other reaction(s): Unknown Other reaction(s): swelling NSAIDS (NON-STEROIDAL ANTI-INFLAM*08/15/2020 8 - GI Upset Comments: Other reaction(s): GI Upset Other reaction(s): cramping, GI Upset, Other (See Comments), Upset Stomach Severe stomach pain Other reaction(s): GI Upset PENICILLINS 08/15/2020 2 - Rash 14 - Other: See Comments Comments: Other reaction(s): GI Upset, hives, horrible taste in mouth Other reaction(s): GI Upset, GI Upset, horrible taste in mouth, leaves a bad taste in her mouth., NEEDS FOLLOW-UP Other reaction(s): GI Upset, hives, horrible taste in mouth PREGABALIN 08/15/2020 7 - Swelling 14 - Other: See Comments 16 - Unknown Comments: Other reaction(s): swelling, Swelling Other reaction(s): Swelling, Unknown Other reaction(s): swelling, Swelling AMLODIPINE 06/22/2024 5 - Intolerance Comments: leg swelling at 10 mg CELEBREX (CELECOXIB) 08/09/2024 5 - Intolerance Comments: feet and leg swelling PENICILLIN G 11/11/2021 8 - GI Upset IBUPROFEN 11/11/2021 8 - GI Upset Comments: Vomiting cramping TYLENOL (ACETAMINOPHEN) 10/27/2022 8 - GI Upset Date Reviewed: 09/07/2024 Reviewed by: Gertrude Hinojosa MD - Fully Assessed Reason for Visit: Orders [681] Order(s):Blood-Glucose Sensor (DEXCOM G6 SENSOR) devi3 Each every 10 days.Disp: 3 EachRfl: 2 Prescriptions as of 09/13/2024 - oxyCODONE IR (ROXICODONE) 5 mg immediate release tablet Take 1 tablet by mouth every 8 hours as needed for pain for up to 5 days. - Blood-Glucose Sensor (DEXCOM G6 SENSOR) jaguar 3 Each every 10 days. - zoledronic acid (RECLAST) 5 mg/100 mL PREMIX piggyback Inject 100 mL intravenously every year. - empagliflozin (JARDIANCE) 10 mg tablet Take 1 tablet by mouth daily with breakfast. - losartan (COZAAR) 100 mg tablet Take 1 tablet by mouth once daily. - spironolactone (ALDACTONE) 25 mg tablet Take 1 tablet by mouth once daily. - hydrALAZINE (APRESOLINE) 50 mg tablet Take 1 tablet by mouth four times daily. Hold if blood pressure is less than 110/60 - Cholecalciferol, Vitamin D3, 25 mcg (1,000 unit) cap Take 1 capsule by mouth once daily. - gabapentin (NEURONTIN) 800 mg tablet Take 1 tablet by mouth four times daily for 90 days. - tiZANidine (ZANAFLEX) 4 mg tablet Take 1 tablet by mouth three times a day as needed. - Blood-Glucose Meter,Continuous (DEXCOM G6 HR COORDINATOR) misc 1 Each once daily. - Blood-Glucose Transmitter (DEXCOM G6 TRANSMITTER) jaguar 1 Each once daily. - hydroCHLOROthiazide 25 mg tablet Take 1 tablet by mouth once daily. - insulin glargine 100 unit/mL (3 mL) Inject 24 Units subcutaneously daily at bedtime. - polyethylene glycol 3350 17 gram/dose powder Take 17 g by mouth once daily as needed for constipation. - ondansetron orally disintegrating (ZOFRAN ODT) 8 mg disintegrating tablet Take 1 tablet by mouth every 8 hours as needed for nausea/vomiting. - omeprazole (PRILOSEC) 40 mg capsule Take 1 capsule by mouth two times a day. - blood sugar diagnostic (ONETOUCH VERIO TEST STRIPS) test strip 1 Strip four times daily. Use as instructed - Insulin Willow, Disposable, (BD ULTRA-FINE PADMINI PEN NEEDLE) 32 gauge x 5/32" 1 Each three times a day. - fluticasone-salmeterol HFA (ADVAIR HFA) 230-21 mcg/actuation inhaler Inhale 2 Puffs as instructed two times a day. - loratadine (CLARITIN) 10 mg tablet Take 1 tablet by mouth once daily. - albuterol HFA (PROVENTIL HFA, VENTOLIN HFA) 90 mcg/actuation inhaler Inhale 2 Puffs as instructed every 4 hours as needed for wheezing/shortness of breath. - CPAP/BIPAP/OTHER Type .CPAPSettings into a note to see current settings/supplies/DME information. - insulin lispro (HUMALOG KWIKPEN) 100 unit/mL Inject 8 Units subcutaneously three times a day before meals. Taking as needed Problem List As Of Date 09/13/2024 Noted Resolved Uncontrolled type 2 diabetes mellitus with hype*08/28/2022 Chronic midline low back pain with sciatica [M5*08/28/2022 Chronic obstructive lung disease (HCC) [J44.9] 10/18/2022 11/05/2022 Chronic obstructive pulmonary disease, unspecif*11/30/2021 Hyperlipidemia, unspecified [E78.5] 06/15/2021 Tobacco use [Z72.0] 11/05/[address] scan, kidney [R93.429] 11/05/2022 Dyspepsia [R10.13] 02/21/2023 Epigastric pain [R10.13] 02/21/2023 Right upper quadrant abdominal pain [R10.11] 02/21/2023 Chronic gastritis without bleeding [K29.50] 03/12/2023 Gastric wall thickening [K31.89] 03/12/2023 Primary hypertension [I10] 06/11/2023 Neuropathy [G62.9] 06/11/2023 Back pain with history of spinal surgery [M54.9*06/11/2023 FRANCISCO (obstructive sleep apnea) [G47.33] 06/11/2023 DM gastroparesis (HCC) [E11.43, K31.84] 07/04/2023 Abdominal bloating [R14.0] 10/13/2023 Obesity [E66.9] 10/13/2023 Diagnosed: 10/13/2023 Postlaminectomy syndrome of lumbar region [M96.*10/31/2022 Diagnosed: 10/13/2023 Sciatica [M54.30] 11/18/2022 Diagnosed: 10/13/2023 Fall at home, initial encounter [W19.XXXA, Y92.*11/26/2023 12/04/2023 Nicotine use disorder, F17.2 [F17.200] 11/28/2023 Osteoporosis [M81.0] 08/20/2024 Prescriptions ordered this encounter Disp Refills Start End DEXCOM G6 SENSOR DEVICE 3 Ea* 2 09/13/2024 Route: Misc Si Each every 10 days. Encounter Status:Closed by GEORGINA GONSALEZ on 09/13/24 HONEYN Observed: 09/02/2024 12:00 AM Status: COMPLETED Source: [facility] Telephone (AGSPHWG) NIKKIE BUCK ([id number]) 1965 F Date Time Provider Department 09/02/24 GORDON PECK AGSPHWG During your visit today, we recorded the following information about you: Urvashi Reyes 09/02/2024 12:34 PM Signed ----- Message from Wejo sent at 08/30/2024 8:58 AM EST ----- Regarding: Spine OPEN New PT waiting on release of care Spine OPEN New PT waiting on release of care Patient: Nikkie Buck Date of : 1965 Primary Care Provider: Rissa Hanks MD Patient has been identified by name and Date of (Y/N): y Patient: Nikkie Buck Date of : 1965 Provider for this encounter: Rissa Hanks MD Reason for the call/escalation: Patient called their old pain management doctor to get a release of care and would like to know if our office could call her to schedule as soon as possible Was Patient Referred to 911/Seek Emergency Treatment (Y/N): n Did Patient Agree (Y/N): n/a Was An Attempt Made To Transfer The Patient To The Office (Y/N): n Were You Able To Reach Someone At The Office (Y/N): n/a If Yes - Patient Was Transferred To (Caregivers Name): n/a If No - Which [facility] Leadership Automotive Specialty Technician Did You Speak With Regarding This Patient: n/a Was an appointment scheduled (Y/N): n Reason patient was requesting visit (RFV/signs and symptoms/diagnosis) : n/a Person calling if other than patient: self Return call to if other than patient: self Best contact number: [phone] Thank you, Yaima Gregory August 30, 2024 8:59 AM Urvashi Reyes 09/02/2024 12:35 PM Signed Called and spoke with patient and advised that we would need to receive release of care from current pain mgmt provider. Yajaira Valenzuela 10/08/2024 8:10 AM Signed Patient is OK to schedule - release of care is in her chart Eri Martinez 10/08/2024 9:27 AM Signed 10/08/24- called to schedule new patient consult , no answer . LVM. Eri Garcia 10/11/2024 11:27 AM Signed 10/11/24- called and scheduled for new patient consult on 10/29/24 with Ron in [place]. Eri Martinez Allergies As of Date: 09/02/2024 Noted Allergy Reaction DULOXETINE 06/15/2021 7 - Swelling 14 - Other: See Comments Comments: Other reaction(s): swelling Other reaction(s): Unknown Other reaction(s): swelling NSAIDS (NON-STEROIDAL ANTI-INFLAM*08/15/2020 8 - GI Upset Comments: Other reaction(s): GI Upset Other reaction(s): cramping, GI Upset, Other (See Comments), Upset Stomach Severe stomach pain Other reaction(s): GI Upset PENICILLINS 08/15/2020 2 - Rash 14 - Other: See Comments Comments: Other reaction(s): GI Upset, hives, horrible taste in mouth Other reaction(s): GI Upset, GI Upset, horrible taste in mouth, leaves a bad taste in her mouth., NEEDS FOLLOW-UP Other reaction(s): GI Upset, hives, horrible taste in mouth PREGABALIN 08/15/2020 7 - Swelling 14 - Other: See Comments 16 - Unknown Comments: Other reaction(s): swelling, Swelling Other reaction(s): Swelling, Unknown Other reaction(s): swelling, Swelling AMLODIPINE 06/22/2024 5 - Intolerance Comments: leg swelling at 10 mg CELEBREX (CELECOXIB) 08/09/2024 5 - Intolerance Comments: feet and leg swelling PENICILLIN G 11/11/2021 8 - GI Upset IBUPROFEN 11/11/2021 8 - GI Upset Comments: Vomiting cramping TYLENOL (ACETAMINOPHEN) 10/27/2022 8 - GI Upset Date Reviewed: 08/19/2024 Reviewed by: Samantha Armstrong LPN - Fully Assessed Reason for Visit: Returning Patient's Call [[id number]] Prescriptions as of 10/11/2024 - oxyCODONE IR (ROXICODONE) 5 mg immediate release tablet Take 1 tablet by mouth every 8 hours as needed for pain for up to 7 days. Patient should start on October 08, 2024. - Insulin Willow, Disposable, (BD ULTRA-FINE PADMINI PEN NEEDLE) 32 gauge x 5/32" 1 Each three times a day. - Blood-Glucose Sensor (DEXCOM G6 SENSOR) jaguar 3 Each every 10 days. - empagliflozin (JARDIANCE) 10 mg tablet Take 1 tablet by mouth daily with breakfast. - losartan (COZAAR) 100 mg tablet Take 1 tablet by mouth once daily. - spironolactone (ALDACTONE) 25 mg tablet Take 1 tablet by mouth once daily. - hydrALAZINE (APRESOLINE) 50 mg tablet Take 1 tablet by mouth four times daily. Hold if blood pressure is less than 110/60 - Cholecalciferol, Vitamin D3, 25 mcg (1,000 unit) cap Take 1 capsule by mouth once daily. - gabapentin (NEURONTIN) 800 mg tablet Take 1 tablet by mouth four times daily for 90 days. - tiZANidine (ZANAFLEX) 4 mg tablet Take 1 tablet by mouth three times a day as needed. - Blood-Glucose Meter,Continuous (DEXCOM G6 HR COORDINATOR) misc 1 Each once daily. - Blood-Glucose Transmitter (DEXCOM G6 TRANSMITTER) jaguar 1 Each once daily. - hydroCHLOROthiazide 25 mg tablet Take 1 tablet by mouth once daily. - insulin glargine 100 unit/mL (3 mL) Inject 24 Units subcutaneously daily at bedtime. - polyethylene glycol 3350 17 gram/dose powder Take 17 g by mouth once daily as needed for constipation. - ondansetron orally disintegrating (ZOFRAN ODT) 8 mg disintegrating tablet Take 1 tablet by mouth every 8 hours as needed for nausea/vomiting. - omeprazole (PRILOSEC) 40 mg capsule Take 1 capsule by mouth two times a day. - blood sugar diagnostic ([employer] VERIO TEST STRIPS) test strip 1 Strip four times daily. Use as instructed - fluticasone-salmeterol HFA (ADVAIR HFA) 230-21 mcg/actuation inhaler Inhale 2 Puffs as instructed two times a day. - loratadine (CLARITIN) 10 mg tablet Take 1 tablet by mouth once daily. - albuterol HFA (PROVENTIL HFA, VENTOLIN HFA) 90 mcg/actuation inhaler Inhale 2 Puffs as instructed every 4 hours as needed for wheezing/shortness of breath. - CPAP/BIPAP/OTHER Type .CPAPSettings into a note to see current settings/supplies/DME information. - insulin lispro (HUMALOG KWIKPEN) 100 unit/mL Inject 8 Units subcutaneously three times a day before meals. Taking as needed Problem List As Of Date 09/02/2024 Noted Resolved Uncontrolled type 2 diabetes mellitus with hype*08/28/2022 Chronic midline low back pain with sciatica [M5*08/28/2022 Chronic obstructive lung disease (HCC) [J44.9] 10/18/2022 11/05/2022 Chronic obstructive pulmonary disease, unspecif*11/30/2021 Hyperlipidemia, unspecified [E78.5] 06/15/2021 Tobacco use [Z72.0] 11/05/[address] scan, kidney [R93.429] 11/05/2022 Dyspepsia [R10.13] 02/21/2023 Epigastric pain [R10.13] 02/21/2023 Right upper quadrant abdominal pain [R10.11] 02/21/2023 Chronic gastritis without bleeding [K29.50] 03/12/2023 Gastric wall thickening [K31.89] 03/12/2023 Primary hypertension [I10] 06/11/2023 Neuropathy [G62.9] 06/11/2023 Back pain with history of spinal surgery [M54.9*06/11/2023 FRANCISCO (obstructive sleep apnea) [G47.33] 06/11/2023 DM gastroparesis (HCC) [E11.43, K31.84] 07/04/2023 Abdominal bloating [R14.0] 10/13/2023 Obesity [E66.9] 10/13/2023 Diagnosed: 10/13/2023 Postlaminectomy syndrome of lumbar region [M96.*10/31/2022 Diagnosed: 10/13/2023 Sciatica [M54.30] 11/18/2022 Diagnosed: 10/13/2023 Fall at home, initial encounter [W19.XXXA, Y92.*11/26/2023 12/04/2023 Nicotine use disorder, F17.2 [F17.200] 11/28/2023 Osteoporosis [M81.0] 08/20/2024 Encounter Status:Closed by URVASHI REYES on 09/02/24 PROGRESS Observed: 08/31/2024 3:32 PM Status: COMPLETED Source: [facility] HNO ID: [id number] Author: GERTRUDE HINOJOSA MD Service: ? Author Type: Physician Type: Progress Notes Filed: 09/07/2024 18:35 Note Text: BARIATRIC AND GENERAL SURGERY NEW VIRTUAL VISIT I have communicated my name and active licensure. The patient's identity and physical location were verified at the time of this visit. Either the patient or their legal hospital insurance representative has been informed of the risks and benefits of -- and alternatives to -- treatment through a remote evaluation and consents to proceed with the evaluation remotely. I had a virtual visit with Ms. Buck today. Her local doctors have given her a diagnosis of Median arcuate ligament syndrome . HISTORY: Nikkie Buck is a 58 year old female who is referred for evaluation of median arcuate ligament syndrome. She has previously been evaluated by Dr. Gonzales Symptoms begin in November of 2022.She noticed upper abdominal numbness and bloating first. There is some neuropathic pain int he upper abdomen - pins and needles. There is no appreciable change in this sensation with food intake She has some some early satiety as well. Weight loss of around 23 pounds over the past 18 months. No food sticking in the esophagus. Has post prandial bloating with most foods which can last hours after eating. She specifically notes that there is no worsening pain with eating. Bowel movements - can be days at a time between bowel movements, then will have multiple bowel movements in a day. Uses miralax daiily for bowel movements. Blood sugars have been generally okay Gastroparesis Cardinal Symptom Index 1. nausea 3 2. retching 0 3. vomiting 0 4. stomach fullness 5 5. not able to finish a normal-sized meal 5 6. feeling excessively full after meals 5 7. loss of appetite 5 8. bloating (feeling like you need to loosen your clothes) 5 9. 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 This improves with inspiration to 226 cm/s A CTA was completed January 27, 2024 with use of both inspiration and expiration. 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 She previously underwent endoscopic ultrasound with celiac plexus block and had minimal improvement in symptoms. She previously been offered a G POEM/POP procedure but not offered immediate arcuate ligament release. Gastric emptying study in May 2023 was consistent with severe gastroparesis based on greater than 30% retention at 4 hours. She additionally is undergone a smart pill in the past which also was consistent with gastroparesis. PAST MEDICAL HISTORY Diagnosis Date Abdominal bloating 10/13/2023 Arthritis COPD (chronic obstructive pulmonary disease) (HCC) Diabetes (HCC) Hypertension Median arcuate ligament syndrome (HCC) Sleep apnea PAST SURGICAL HISTORY Procedure Laterality Date ANKLE SURGERY HX Left BACK SURGERY HX Bilateral DELIVERY ONLY EGD W/O BRSH SPEC VARICIES INJ 02/21/2023 GI TRANSIT AND PRES SARAH WIRELESS CAPSULE W/INTERP 09/12/2023 Smart Pill, Dr. Vega REVISE MEDIAN N/CARPAL TUNNEL SURG Bilateral TOTAL HIP REPLACEMENT Right VAGINAL HYSTERECTOMY Current Outpatient Medications Medication Sig Dispense Refill zoledronic acid (RECLAST) 5 mg/100 mL PREMIX piggyback Inject 100 mL intravenously every year. 100 mL 0 empagliflozin (JARDIANCE) 10 mg tablet Take 1 tablet by mouth daily with breakfast. 30 tablet 11 losartan (COZAAR) 100 mg tablet Take 1 tablet by mouth once daily. 30 tablet 11 spironolactone (ALDACTONE) 25 mg tablet Take 1 tablet by mouth once daily. 30 tablet 11 hydrALAZINE (APRESOLINE) 50 mg tablet Take 1 tablet by mouth four times daily. Hold if blood pressure is less than 110/60 120 tablet 11 Cholecalciferol, Vitamin D3, 25 mcg (1,000 unit) cap Take 1 capsule by mouth once daily. 90 capsule 3 gabapentin (NEURONTIN) 800 mg tablet Take 1 tablet by mouth four times daily for 90 days. 120 tablet 2 tiZANidine (ZANAFLEX) 4 mg tablet Take 1 tablet by mouth three times a day as needed. 90 tablet 1 Blood-Glucose Meter,Continuous (DEXCOM G6 HR COORDINATOR) misc 1 Each once daily. 1 Each 0 Blood-Glucose Transmitter (DEXCOM G6 TRANSMITTER) jaguar 1 Each once daily. 3 Each 12 hydroCHLOROthiazide 25 mg tablet Take 1 tablet by mouth once daily. 90 tablet 3 insulin glargine 100 unit/mL (3 mL) Inject 24 Units subcutaneously daily at bedtime. 6 Each 1 polyethylene glycol 3350 17 gram/dose powder Take 17 g by mouth once daily as needed for constipation. 1530 g 3 ondansetron orally disintegrating (ZOFRAN ODT) 8 mg disintegrating tablet Take 1 tablet by mouth every 8 hours as needed for nausea/vomiting. 90 tablet 5 omeprazole (PRILOSEC) 40 mg capsule Take 1 capsule by mouth two times a day. 90 capsule 3 blood sugar diagnostic (?TOUCH VERIO TEST STRIPS) test strip 1 Strip four times daily. Use as instructed 200 Each 2 Insulin Willow, Disposable, (BD ULTRA-FINE PADMINI PEN NEEDLE) 32 gauge x 5/32" 1 Each three times a day. 90 Each 11 fluticasone-salmeterol HFA (ADVAIR HFA) 230-21 mcg/actuation inhaler Inhale 2 Puffs as instructed two times a day. 12 g 11 loratadine (CLARITIN) 10 mg tablet Take 1 tablet by mouth once daily. 90 tablet 1 albuterol HFA (PROVENTIL HFA, VENTOLIN HFA) 90 mcg/actuation inhaler Inhale 2 Puffs as instructed every 4 hours as needed for wheezing/shortness of breath. 1 Each 11 CPAP/BIPAP/OTHER Type .CPAPSettings into a note to see current settings/supplies/DME information. 1 Each 0 insulin lispro (HUMALOG KWIKPEN) 100 unit/mL Inject 8 Units subcutaneously three times a day before meals. Taking as needed No current facility-administered medications for this visit. REVIEW OF SYSTEMS: PHYSICAL FINDINGS OF NOTE: General - Normal, healthy, cooperative, in no acute distress Able to interact verbally by video conference Pulmonary - respiratory effort normal Abdominal - Not performed Motor - patient seen sitting with Normal appearing strength and coordination Medical Decision Making: Assessment Assessment AND Diagnosis: Nikkie Buck is a 58 year old female being evaluated for both diabetes assist gastroparesis as well as median arcuate ligament syndrome Data Reviewed: Tests AND Documents Reviewed/ordered: Review of prior notes from Melo Agarwal, Christian. I have independently interpreted: CT Abdomen, CT Pelvis, Ultrasound, gastric emptying study I have discussed Nikkie Buck's treatment plan and/or results with the patient. Treatment plan: While she has consistent imaging findings for median arcuate ligament syndrome, the symptoms that she is describing are not consistent with median arcuate ligament syndrome. Significantly the numbness of the abdominal wall is a predominant symptom and no exacerbated symptoms by exercise or eating would be atypical for median arcuate ligament syndrome. Postprandial bloating is more likely associated with delayed gastric emptying/gastroparesis I agree with the prior recommendation by one of my partners over the summer that it is better to intervene for gastroparesis, and I do not think that a laparoscopic median arcuate ligament release would appreciably alter her symptoms given the lack of improvement with the diagnostic celiac plexus block. Surgical plan is: peroral pyloromyotomy Anticipated Anesthesia level: anesthesia Consent has not been signed in clinic Preoperative anesthesia visit; required Additional clearances or evaluations needed: Gertrude Hinojosa MD CNPN Observed: 08/30/2024 12:00 AM Status: COMPLETED Source: [facility] Telephone (NATACHA) NIKKIE BUCK ([id number]) 1965 F Date Time Provider Department 08/30/24 ROB MART During your visit today, we recorded the following information about you: Grace Rose LPN 08/30/2024 9:05 AM Signed Stated "I wanted to release the pain management care from [facility] because I am trying to establish with Dr King @ [facility]". Explained we do not see any future appts here, we are making note of this. Allergies As of Date: 08/30/2024 Noted Allergy Reaction DULOXETINE 06/15/2021 7 - Swelling 14 - Other: See Comments Comments: Other reaction(s): swelling Other reaction(s): Unknown Other reaction(s): swelling NSAIDS (NON-STEROIDAL ANTI-INFLAM*08/15/2020 8 - GI Upset Comments: Other reaction(s): GI Upset Other reaction(s): cramping, GI Upset, Other (See Comments), Upset Stomach Severe stomach pain Other reaction(s): GI Upset PENICILLINS 08/15/2020 2 - Rash 14 - Other: See Comments Comments: Other reaction(s): GI Upset, hives, horrible taste in mouth Other reaction(s): GI Upset, GI Upset, horrible taste in mouth, leaves a bad taste in her mouth., NEEDS FOLLOW-UP Other reaction(s): GI Upset, hives, horrible taste in mouth PREGABALIN 08/15/2020 7 - Swelling 14 - Other: See Comments 16 - Unknown Comments: Other reaction(s): swelling, Swelling Other reaction(s): Swelling, Unknown Other reaction(s): swelling, Swelling AMLODIPINE 06/22/2024 5 - Intolerance Comments: leg swelling at 10 mg CELEBREX (CELECOXIB) 08/09/2024 5 - Intolerance Comments: feet and leg swelling PENICILLIN G 11/11/2021 8 - GI Upset IBUPROFEN 11/11/2021 8 - GI Upset Comments: Vomiting cramping TYLENOL (ACETAMINOPHEN) 10/27/2022 8 - GI Upset Date Reviewed: 08/19/2024 Reviewed by: Samantha Armstrong LPN - Fully Assessed Reason for Visit: Releasing Pain Management from [facility] [Other] Prescriptions as of 08/30/2024 - zoledronic acid (RECLAST) 5 mg/100 mL PREMIX piggyback Inject 100 mL intravenously every year. - empagliflozin (JARDIANCE) 10 mg tablet Take 1 tablet by mouth daily with breakfast. - losartan (COZAAR) 100 mg tablet Take 1 tablet by mouth once daily. - spironolactone (ALDACTONE) 25 mg tablet Take 1 tablet by mouth once daily. - hydrALAZINE (APRESOLINE) 50 mg tablet Take 1 tablet by mouth four times daily. Hold if blood pressure is less than 110/60 - Cholecalciferol, Vitamin D3, 25 mcg (1,000 unit) cap Take 1 capsule by mouth once daily. - gabapentin (NEURONTIN) 800 mg tablet Take 1 tablet by mouth four times daily for 90 days. - tiZANidine (ZANAFLEX) 4 mg tablet Take 1 tablet by mouth three times a day as needed. - Blood-Glucose Meter,Continuous (DEXCOM G6 HR COORDINATOR) misc 1 Each once daily. - Blood-Glucose Transmitter (DEXCOM G6 TRANSMITTER) jaguar 1 Each once daily. - hydroCHLOROthiazide 25 mg tablet Take 1 tablet by mouth once daily. - insulin glargine 100 unit/mL (3 mL) Inject 24 Units subcutaneously daily at bedtime. - polyethylene glycol 3350 17 gram/dose powder Take 17 g by mouth once daily as needed for constipation. - ondansetron orally disintegrating (ZOFRAN ODT) 8 mg disintegrating tablet Take 1 tablet by mouth every 8 hours as needed for nausea/vomiting. - omeprazole (PRILOSEC) 40 mg capsule Take 1 capsule by mouth two times a day. - blood sugar diagnostic ([employer]UCH VERIO TEST STRIPS) test strip 1 Strip four times daily. Use as instructed - Insulin Willow, Disposable, (BD ULTRA-FINE PADMINI PEN NEEDLE) 32 gauge x 5/32" 1 Each three times a day. - fluticasone-salmeterol HFA (ADVAIR HFA) 230-21 mcg/actuation inhaler Inhale 2 Puffs as instructed two times a day. - loratadine (CLARITIN) 10 mg tablet Take 1 tablet by mouth once daily. - albuterol HFA (PROVENTIL HFA, VENTOLIN HFA) 90 mcg/actuation inhaler Inhale 2 Puffs as instructed every 4 hours as needed for wheezing/shortness of breath. - CPAP/BIPAP/OTHER Type .CPAPSettings into a note to see current settings/supplies/DME information. - insulin lispro (HUMALOG KWIKPEN) 100 unit/mL Inject 8 Units subcutaneously three times a day before meals. Taking as needed Problem List As Of Date 08/30/2024 Noted Resolved Uncontrolled type 2 diabetes mellitus with hype*08/28/2022 Chronic midline low back pain with sciatica [M5*08/28/2022 Chronic obstructive lung disease (HCC) [J44.9] 10/18/2022 11/05/2022 Chronic obstructive pulmonary disease, unspecif*11/30/2021 Hyperlipidemia, unspecified [E78.5] 06/15/2021 Tobacco use [Z72.0] 11/05/[address] scan, kidney [R93.429] 11/05/2022 Dyspepsia [R10.13] 02/21/2023 Epigastric pain [R10.13] 02/21/2023 Right upper quadrant abdominal pain [R10.11] 02/21/2023 Chronic gastritis without bleeding [K29.50] 03/12/2023 Gastric wall thickening [K31.89] 03/12/2023 Primary hypertension [I10] 06/11/2023 Neuropathy [G62.9] 06/11/2023 Back pain with history of spinal surgery [M54.9*06/11/2023 FRANCISCO (obstructive sleep apnea) [G47.33] 06/11/2023 DM gastroparesis (HCC) [E11.43, K31.84] 07/04/2023 Abdominal bloating [R14.0] 10/13/2023 Obesity [E66.9] 10/13/2023 Diagnosed: 10/13/2023 Postlaminectomy syndrome of lumbar region [M96.*10/31/2022 Diagnosed: 10/13/2023 Sciatica [M54.30] 11/18/2022 Diagnosed: 10/13/2023 Fall at home, initial encounter [W19.XXXA, Y92.*11/26/2023 12/04/2023 Nicotine use disorder, F17.2 [F17.200] 11/28/2023 Osteoporosis [M81.0] 08/20/2024 Encounter Status:Closed by GRACE ROSE on 08/30/24 PROGRESS Observed: 08/26/2024 9:27 AM Status: COMPLETED Source: [facility] HNO ID: [id number] Author: ?, ?, ? Service: ? Author Type: ? Type: Progress Notes Filed: 08/26/2024 09:28 Note Text: POPULATION HEALTH NAVIGATION OUTREACH Action/[facility] Support: Called pt to schedule an appt in Pain Management. Lvm for pt to call [phone] for scheduling. Reason for Outreach Care Gap/HCC or Scheduling Wellness Visits Care Gaps due: N/A Patient Contacted: Unable or unnecessary to reach patient: Left message Navigation Signature: Marcy Snow August 26, 2024 9:27 AM CNPTOUTREACH Observed: 08/26/2024 12:00 AM Status: COMPLETED Source: [facility] Patient Outreach (NETNAV) NIKKIE BUCK ([id number]) 1965 F Date Time Provider Department 08/26/24 NO PCP NETNAV During your visit today, we recorded the following information about you: Marcy Snow 08/26/2024 9:28 AM Signed POPULATION HEALTH NAVIGATION OUTREACH Action/[facility] Support: Called pt to schedule an appt in Pain Management. Lvm for pt to call [phone] for scheduling. Reason for Outreach Care Gap/HCC or Scheduling Wellness Visits Care Gaps due: N/A Patient Contacted: Unable or unnecessary to reach patient: Left message Navigation Signature: Marcy Snow August 26, 2024 9:27 AM Allergies As of Date: 08/26/2024 Noted Allergy Reaction DULOXETINE 06/15/2021 7 - Swelling 14 - Other: See Comments Comments: Other reaction(s): swelling Other reaction(s): Unknown Other reaction(s): swelling NSAIDS (NON-STEROIDAL ANTI-INFLAM*08/15/2020 8 - GI Upset Comments: Other reaction(s): GI Upset Other reaction(s): cramping, GI Upset, Other (See Comments), Upset Stomach Severe stomach pain Other reaction(s): GI Upset PENICILLINS 08/15/2020 2 - Rash 14 - Other: See Comments Comments: Other reaction(s): GI Upset, hives, horrible taste in mouth Other reaction(s): GI Upset, GI Upset, horrible taste in mouth, leaves a bad taste in her mouth., NEEDS FOLLOW-UP Other reaction(s): GI Upset, hives, horrible taste in mouth PREGABALIN 08/15/2020 7 - Swelling 14 - Other: See Comments 16 - Unknown Comments: Other reaction(s): swelling, Swelling Other reaction(s): Swelling, Unknown Other reaction(s): swelling, Swelling AMLODIPINE 06/22/2024 5 - Intolerance Comments: leg swelling at 10 mg CELEBREX (CELECOXIB) 08/09/2024 5 - Intolerance Comments: feet and leg swelling PENICILLIN G 11/11/2021 8 - GI Upset IBUPROFEN 11/11/2021 8 - GI Upset Comments: Vomiting cramping TYLENOL (ACETAMINOPHEN) 10/27/2022 8 - GI Upset Date Reviewed: 08/19/2024 Reviewed by: Samantha Armstrong LPN - Fully Assessed Prescriptions as of 08/26/2024 - oxyCODONE IR (ROXICODONE) 5 mg immediate release tablet Take 1 tablet by mouth every 8 hours as needed for pain for up to 5 days. - zoledronic acid (RECLAST) 5 mg/100 mL PREMIX piggyback Inject 100 mL intravenously every year. - empagliflozin (JARDIANCE) 10 mg tablet Take 1 tablet by mouth daily with breakfast. - losartan (COZAAR) 100 mg tablet Take 1 tablet by mouth once daily. - spironolactone (ALDACTONE) 25 mg tablet Take 1 tablet by mouth once daily. - hydrALAZINE (APRESOLINE) 50 mg tablet Take 1 tablet by mouth four times daily. Hold if blood pressure is less than 110/60 - Cholecalciferol, Vitamin D3, 25 mcg (1,000 unit) cap Take 1 capsule by mouth once daily. - gabapentin (NEURONTIN) 800 mg tablet Take 1 tablet by mouth four times daily for 90 days. - tiZANidine (ZANAFLEX) 4 mg tablet Take 1 tablet by mouth three times a day as needed. - Blood-Glucose Meter,Continuous (DEXCOM G6 HR COORDINATOR) misc 1 Each once daily. - Blood-Glucose Transmitter (DEXCOM G6 TRANSMITTER) jaguar 1 Each once daily. - hydroCHLOROthiazide 25 mg tablet Take 1 tablet by mouth once daily. - insulin glargine 100 unit/mL (3 mL) Inject 24 Units subcutaneously daily at bedtime. - polyethylene glycol 3350 17 gram/dose powder Take 17 g by mouth once daily as needed for constipation. - ondansetron orally disintegrating (ZOFRAN ODT) 8 mg disintegrating tablet Take 1 tablet by mouth every 8 hours as needed for nausea/vomiting. - omeprazole (PRILOSEC) 40 mg capsule Take 1 capsule by mouth two times a day. - blood sugar diagnostic ([employer] VERIO TEST STRIPS) test strip 1 Strip four times daily. Use as instructed - Insulin Willow, Disposable, (BD ULTRA-FINE PADMINI PEN NEEDLE) 32 gauge x 5/32" 1 Each three times a day. - fluticasone-salmeterol HFA (ADVAIR HFA) 230-21 mcg/actuation inhaler Inhale 2 Puffs as instructed two times a day. - loratadine (CLARITIN) 10 mg tablet Take 1 tablet by mouth once daily. - albuterol HFA (PROVENTIL HFA, VENTOLIN HFA) 90 mcg/actuation inhaler Inhale 2 Puffs as instructed every 4 hours as needed for wheezing/shortness of breath. - CPAP/BIPAP/OTHER Type .CPAPSettings into a note to see current settings/supplies/DME information. - insulin lispro (HUMALOG KWIKPEN) 100 unit/mL Inject 8 Units subcutaneously three times a day before meals. Taking as needed Problem List As Of Date 08/26/2024 Noted Resolved Uncontrolled type 2 diabetes mellitus with hype*08/28/2022 Chronic midline low back pain with sciatica [M5*08/28/2022 Chronic obstructive lung disease (HCC) [J44.9] 10/18/2022 11/05/2022 Chronic obstructive pulmonary disease, unspecif*11/30/2021 Hyperlipidemia, unspecified [E78.5] 06/15/2021 Tobacco use [Z72.0] 11/05/[address] scan, kidney [R93.429] 11/05/2022 Dyspepsia [R10.13] 02/21/2023 Epigastric pain [R10.13] 02/21/2023 Right upper quadrant abdominal pain [R10.11] 02/21/2023 Chronic gastritis without bleeding [K29.50] 03/12/2023 Gastric wall thickening [K31.89] 03/12/2023 Primary hypertension [I10] 06/11/2023 Neuropathy [G62.9] 06/11/2023 Back pain with history of spinal surgery [M54.9*06/11/2023 FRANCISCO (obstructive sleep apnea) [G47.33] 06/11/2023 DM gastroparesis (HCC) [E11.43, K31.84] 07/04/2023 Abdominal bloating [R14.0] 10/13/2023 Obesity [E66.9] 10/13/2023 Diagnosed: 10/13/2023 Postlaminectomy syndrome of lumbar region [M96.*10/31/2022 Diagnosed: 10/13/2023 Sciatica [M54.30] 11/18/2022 Diagnosed: 10/13/2023 Fall at home, initial encounter [W19.XXXA, Y92.*11/26/2023 12/04/2023 Nicotine use disorder, F17.2 [F17.200] 11/28/2023 Osteoporosis [M81.0] 08/20/2024 Encounter Status:Closed by MARCY SNOW on 08/26/24 NM CARDIAC PERF STRESS/PHARM Observed: 1 10/26/2023 3:18 PM Status: F Source: [facility] * * *Final Report* * * DATE OF EXAM: Aug 25 2024 3:18PM BANDAR 0006 - NM CARDIAC PERF STRESS/PHARM / PROCEDURE REASON: Z13.6-Encounter for screening for cardiovascular disorders * * * * Physician Interpretation * * * * Stress Mystery Shopper Report: [facility] Date of service: 08/25/2024 1:40:19 PM Supervising physician: Sherine Parish MD PATIENT: Name: NIKKIE BUCK Age: 58 years Gender: F The supervising physician was in the department and immediately available. * * * Final * * * PATIENT: Name: NIKKEI BUCK Age: 58 years Gender: F CONCLUSIONS: 1. SPECT Perfusion Study: Normal. 2. There is no scintigraphic evidence for inducible ischemia. 3. No evidence of scarred myocardium. 4. Left ventricle is normal in size. The left ventricle systolic function is normal. 5. Right ventricle is normal in size. The right ventricle systolic function is normal. 6. This is a low risk scan. Gated Stress IR:3D LVEF % 74 Prior Study Comparison No prior nuclear cardiology exam available for comparison. Nuclear Med Report:1-Day Gated SPECT Myocardial Perfusion with Regadenoson Stress: Myocardial perfusion imaging was performed at rest 30 minutes following the IV injection of the radiotracer. The patient received 0.4 mg of regadenoson, via rapid IV push, immediately followed by radiotracer IV. Gated post stress tomographic imaging was performed 30 to 60 minutes later. See administered radiotracer and doses below. [facility] Date of service: 08/25/2024 1:40:19 PM Ordering Physician: LETICIA MARTINEZ. Requesting Physician: Indication: Assessment for suspected CAD Interpreting physician: Ron Obrien MD Height: 152.40 cm BSA: 1.66 m? Weight: 64.86 kg BMI: 27.9 kg/m? Imaging Protocol Limitation Reason Liver Retention. Exam Type: Rest Stress Radiopharm: Tc-99m Tetrofosmin Tc-99m Tetrofosmin Dosage(mCi): 11.6 30.6 Atten Correction: not performed not performed Stress Agent: Regadenoson 0.4mg Supply provided from [facility] Resting Blood Press: 170/76 mmHg Image Quality The overall study imaging quality was deemed to be good. The following technical issues were noted: Liver Retention. FINDINGS: Left Ventricle Wall Motion: Stress IR:3D - All segments are normal. Rest IR:3D - Gated Stress IR:3D - Reversibility - Stress IR:3D Stress IR:3D Gated Stress IR:3D LVEF: 74 % ED Volume: 77 ml ES Volume: 20 ml TID: 1.26 Perfusion Findings Stress IR:3D - Summed Score=0 All segments demonstrate normal perfusion. Rest IR:3D - Summed Score=0 All segments demonstrate normal perfusion. Stress IR:3D Rest IR:3D Summed Score=0 Summed Score=0 LEFT VENTRICLE The left ventricle is normal in size. Left ventricular systolic function is normal. Right Ventricle The right ventricle is normal in size. Right ventricle systolic function is normal. Stress Test Findings: There is no scintigraphic evidence for inducible ischemia. There is no evidence of scarring. * * * Final * * * Stress ECG Report: [facility] Date of service: 08/25/2024 1:40:19 PM Ordering physician: LETICIA MARTINEZ performance solutions specialist: Yaima Medina Exterior Designer: Marimar Dahl Interpreting physician: Sherine Parish MD Patient name: NIKKIE BUCK Age: 58 years Gender: F Height: 152.40 cm BSA: 1.66 m? Weight: 64.86 kg BMI: 27.9 kg/m? Indication: Encounter for screening for cardiovascular disorders Stress ECG Conclusion: Conclusion: Normal with exception due to borderline ST depression (<1 mm or any upslope) during stress Stress ECG Summary: The patient's resting heart rate was 73 bpm and blood pressure was 170/76 mmHg. The test was terminated due to end of protocol. No symptoms provoked during stress. The maximum heart rate was 99 bpm, which is 62% of the predicted heart rate for age. Peak blood pressure was 176/72 mmHg. The double product achieved was 7[address]. Medications: Last Used JARDIANCE COZAAR ALDACTONE HYDRALAZINE NEURONTIN HYDROCHLOROTHIAZIDE INSULIN PRILOSEC ALBUTEROL INHALER Resting ECG: Normal Sinus Rhythm Symptoms at rest: No symptoms Pharamcologic Protocol: Regadenoson Stress Exercise Table: +-----+--+---+---+ Stage HR SYS BERNIE +-----+--+---+---+ 1 92 172 71 +-----+--+---+---+ 2 99 167 78 +-----+--+---+---+ 3 96 167 69 +-----+--+---+---+ 4 94 170 70 +-----+--+---+---+ 5 96 173 76 +-----+--+---+---+ 6 90 176 72 +-----+--+---+---+ +-----+--+---+---+ HR SYS BERNIE +-----+--+---+---+ Final 99 176 72 +-----+--+---+---+ Stress Observations: Resting HR: 73 bpm Peak HR: 99 bpm (62% MPHR) Resting BP: 170 / 76 mmHg Peak BP: 176 / 72 mmHg Rate Pressure Product (RPP): 22296 Stress Exercise Observations: Reason for test termination: end of protocol, Symptoms during test: No symptoms provoked during stress, ST segment and T wave changes: Borderline ST depression (<1 mm or any upslope) during stress and Arrhythmias: PACs Metabolic Exercise Data Variable: Observed value [Expected Range] HGI: 0.4 [>1.06 bpm/mmHg] * * * Final * * * RP [employer] Programmer Analyst: [employer] Transcribe Date/Time: Aug 25 2024 1:40P Dictated by : RON OBRIEN MD This examination was interpreted and the report reviewed and electronically signed by: RON OBRIEN MD on Aug 25 2024 4:27PM EST [id number] PROGRESS Observed: 08/25/2024 12:45 PM Status: COMPLETED Source: [facility] ID: [id number] Author: BETZY SIMS CNMT Service: Radiology Author Type: Technologist Type: Progress Notes Filed: 08/25/2024 14:04 Note Text: RADIOLOGY SERVICE PROGRESS NOTE SERVICE DATE: 08/25/2024 SERVICE TIME: 1:44 PM PATIENT IDENTITY VERIFICATION COMPLETED USING TWO (2) STANDARD IDENTIFIERS: Name and Date of confirmed by patient verbally and Name and Date of confirmed by identification band FALL SCREENING: Has the patient had 2 falls in the last year or 1 fall with injury or currently using an Ambulatory Assistive Device (Walker, Cane, Wheelchair, Crutches, etc.)? Yes, Patient High Risk for Falls What interventions were put in place to prevent falls during this visit? Yellow "Falls Risk Wristband" Applied, Offered Assistance with Transfers/Clothing, and Increased Observations by Caregivers PATIENT GENDER DATA: .female : No ALLERGIES: Reviewed and unchanged MEDICATIONS REVIEWED: Not applicable PATIENT RELEVANT IMPLANT DATA REVIEWED: Not Applicable PATIENT PRESENTS WITH AN IMPLANTABLE OR ATTACHED WHARF TALLY CLERK: No CREATININE: Creatinine Date Value Ref Range Status 04/22/2024 1.12 (H) 0.58 - 0.96 mg/dL Final 01/22/2024 1.29 (H) 0.58 - 0.96 mg/dL Final 12/04/2023 1.23 (H) 0.51 - 0.95 mg/dL Final Comment: Patients receiving either N-Acetylcysteine (NAC) or Metamizole prior to venipuncture, may have falsely depressed results. Estimated Glomerular Filtration Rate Date Value Ref Range Status 04/22/2024 57 (L) >=60 mL/min/1.73m? Final Comment: Estimated Glomerular Filtration Rate (eGFR) is calculated using the 2020 CKD-EPI creatinine equation. This equation utilizes serum creatinine, sex, and age as parameters. The creatinine assay has traceable calibration to isotope dilution-mass spectrometry. Refer to KDIGO guidelines for clinical interpretation. In patients with unstable renal function, e.g. those with acute kidney injury, the eGFR may not accurately reflect actual GFR. P.O.C.T. RESULTS: N/A August 25, [address] PERFORMED: No IV SITE: Ambulatory: A peripheral IV was started in the Right forearm with a Angio cath: 22 gauge. POST EXAM PIV STATUS: Discontinued PROCEDURE TYPE: NM Stress: 11.6 mCi [id number] was administered IV for Rest Imaging at 13:25 by mm. 30.6 mCi [id number] was administered IV for Stress Imaging at 14:02 by mm. PATIENT DISCHARGED TO: Ambulatory patient, left [place] department area. Is this a therapy: No A Diagnostic radioactive procedure has taken place, with no further precautions necessary other than routine body substance precautions. More information regarding radiation safety can be found using this link: [email or web address] SIGNATURE: Betzy Sims [facility] PATIENT NAME: Nikkie Buck DATE: August 25, 2024 TIME: 1:44 PM PAGER/CONTACT #: PROGRESS Observed: 08/25/2024 10:54 AM Status: COMPLETED Source: [facility] HNO ID: [id number] Author: ?, ?, ? Service: ? Author Type: ? Type: Progress Notes Filed: 08/25/2024 10:54 Note Text: POPULATION HEALTH NAVIGATION OUTREACH Action/[facility] [place] Support: Called pt to schedule an appt in Pain Management. Spoke w/ pt, Will call patient back later to schedule appt. Patient stated that she was on her way to her testing Reason for Outreach Care Gap/HCC or Scheduling Wellness Visits Care Gaps due: N/A Patient Contacted: Spoke to patient/parent/or legal guardian Patient identified by name and : No Navigation Signature: Fred De La Paz August 25, 2024 10:54 AM CNPTOUTREACH Observed: 08/25/2024 12:00 AM Status: COMPLETED Source: [facility] Patient Outreach (NETNAV) FIORNIKKIE Jerry ([id number]) 1965 F Date Time Provider Department 08/25/24 NO PCP NETNAV During your visit today, we recorded the following information about you: Fred De La Paz 08/25/2024 10:54 AM Signed POPULATION HEALTH NAVIGATION OUTREACH Action/[facility] [place] Support: Called pt to schedule an appt in Pain Management. Spoke w/ pt, Will call patient back later to schedule appt. Patient stated that she was on her way to her testing Reason for Outreach Care Gap/HCC or Scheduling Wellness Visits Care Gaps due: N/A Patient Contacted: Spoke to patient/parent/or legal guardian Patient identified by name and : No Navigation Signature: Fred De La Paz August 25, 2024 10:54 AM Allergies As of Date: 08/25/2024 Noted Allergy Reaction DULOXETINE 06/15/2021 7 - Swelling 14 - Other: See Comments Comments: Other reaction(s): swelling Other reaction(s): Unknown Other reaction(s): swelling NSAIDS (NON-STEROIDAL ANTI-INFLAM*08/15/2020 8 - GI Upset Comments: Other reaction(s): GI Upset Other reaction(s): cramping, GI Upset, Other (See Comments), Upset Stomach Severe stomach pain Other reaction(s): GI Upset PENICILLINS 08/15/2020 2 - Rash 14 - Other: See Comments Comments: Other reaction(s): GI Upset, hives, horrible taste in mouth Other reaction(s): GI Upset, GI Upset, horrible taste in mouth, leaves a bad taste in her mouth., NEEDS FOLLOW-UP Other reaction(s): GI Upset, hives, horrible taste in mouth PREGABALIN 08/15/2020 7 - Swelling 14 - Other: See Comments 16 - Unknown Comments: Other reaction(s): swelling, Swelling Other reaction(s): Swelling, Unknown Other reaction(s): swelling, Swelling AMLODIPINE 06/22/2024 5 - Intolerance Comments: leg swelling at 10 mg CELEBREX (CELECOXIB) 08/09/2024 5 - Intolerance Comments: feet and leg swelling PENICILLIN G 11/11/2021 8 - GI Upset IBUPROFEN 11/11/2021 8 - GI Upset Comments: Vomiting cramping TYLENOL (ACETAMINOPHEN) 10/27/2022 8 - GI Upset Date Reviewed: 08/19/2024 Reviewed by: Samantha Armstrong LPN - Fully Assessed Prescriptions as of 08/25/2024 - oxyCODONE IR (ROXICODONE) 5 mg immediate release tablet Take 1 tablet by mouth every 8 hours as needed for pain for up to 5 days. - zoledronic acid (RECLAST) 5 mg/100 mL PREMIX piggyback Inject 100 mL intravenously every year. - empagliflozin (JARDIANCE) 10 mg tablet Take 1 tablet by mouth daily with breakfast. - losartan (COZAAR) 100 mg tablet Take 1 tablet by mouth once daily. - spironolactone (ALDACTONE) 25 mg tablet Take 1 tablet by mouth once daily. - hydrALAZINE (APRESOLINE) 50 mg tablet Take 1 tablet by mouth four times daily. Hold if blood pressure is less than 110/60 - Cholecalciferol, Vitamin D3, 25 mcg (1,000 unit) cap Take 1 capsule by mouth once daily. - gabapentin (NEURONTIN) 800 mg tablet Take 1 tablet by mouth four times daily for 90 days. - tiZANidine (ZANAFLEX) 4 mg tablet Take 1 tablet by mouth three times a day as needed. - Blood-Glucose Meter,Continuous (DEXCOM G6 HR COORDINATOR) misc 1 Each once daily. - Blood-Glucose Transmitter (DEXCOM G6 TRANSMITTER) jaguar 1 Each once daily. - hydroCHLOROthiazide 25 mg tablet Take 1 tablet by mouth once daily. - insulin glargine 100 unit/mL (3 mL) Inject 24 Units subcutaneously daily at bedtime. - polyethylene glycol 3350 17 gram/dose powder Take 17 g by mouth once daily as needed for constipation. - ondansetron orally disintegrating (ZOFRAN ODT) 8 mg disintegrating tablet Take 1 tablet by mouth every 8 hours as needed for nausea/vomiting. - omeprazole (PRILOSEC) 40 mg capsule Take 1 capsule by mouth two times a day. - blood sugar diagnostic ([employer] VERIO TEST STRIPS) test strip 1 Strip four times daily. Use as instructed - Insulin Willow, Disposable, (BD ULTRA-FINE PADMINI PEN NEEDLE) 32 gauge x 5/32" 1 Each three times a day. - fluticasone-salmeterol HFA (ADVAIR HFA) 230-21 mcg/actuation inhaler Inhale 2 Puffs as instructed two times a day. - loratadine (CLARITIN) 10 mg tablet Take 1 tablet by mouth once daily. - albuterol HFA (PROVENTIL HFA, VENTOLIN HFA) 90 mcg/actuation inhaler Inhale 2 Puffs as instructed every 4 hours as needed for wheezing/shortness of breath. - CPAP/BIPAP/OTHER Type .CPAPSettings into a note to see current settings/supplies/DME information. - insulin lispro (HUMALOG KWIKPEN) 100 unit/mL Inject 8 Units subcutaneously three times a day before meals. Taking as needed Problem List As Of Date 08/25/2024 Noted Resolved Uncontrolled type 2 diabetes mellitus with hype*08/28/2022 Chronic midline low back pain with sciatica [M5*08/28/2022 Chronic obstructive lung disease (HCC) [J44.9] 10/18/2022 11/05/2022 Chronic obstructive pulmonary disease, unspecif*11/30/2021 Hyperlipidemia, unspecified [E78.5] 06/15/2021 Tobacco use [Z72.0] 11/05/[address] scan, kidney [R93.429] 11/05/2022 Dyspepsia [R10.13] 02/21/2023 Epigastric pain [R10.13] 02/21/2023 Right upper quadrant abdominal pain [R10.11] 02/21/2023 Chronic gastritis without bleeding [K29.50] 03/12/2023 Gastric wall thickening [K31.89] 03/12/2023 Primary hypertension [I10] 06/11/2023 Neuropathy [G62.9] 06/11/2023 Back pain with history of spinal surgery [M54.9*06/11/2023 FRANCISCO (obstructive sleep apnea) [G47.33] 06/11/2023 DM gastroparesis (HCC) [E11.43, K31.84] 07/04/2023 Abdominal bloating [R14.0] 10/13/2023 Obesity [E66.9] 10/13/2023 Diagnosed: 10/13/2023 Postlaminectomy syndrome of lumbar region [M96.*10/31/2022 Diagnosed: 10/13/2023 Sciatica [M54.30] 11/18/2022 Diagnosed: 10/13/2023 Fall at home, initial encounter [W19.XXXA, Y92.*11/26/2023 12/04/2023 Nicotine use disorder, F17.2 [F17.200] 11/28/2023 Osteoporosis [M81.0] 08/20/2024 Encounter Status:Closed by FRED DE LA PAZ on 08/25/24 HARMAN Observed: 08/24/2024 12:00 AM Status: COMPLETED Source: [facility] Telephone ([facility]) NIKKIE BUCK ([id number]) 1965 F Date Time Provider Department 08/24/24 MARIMAR DAHL [facility] During your visit today, we recorded the following information about you: Marimar Dahl RN 08/24/2024 1:22 PM Signed Spoke to pt regarding reminder and instructions for stress test tomorrow. This included where to check in, length of test and no caffeine for 12 hours prior to test. Allergies As of Date: 08/24/2024 Noted Allergy Reaction DULOXETINE 06/15/2021 7 - Swelling 14 - Other: See Comments Comments: Other reaction(s): swelling Other reaction(s): Unknown Other reaction(s): swelling NSAIDS (NON-STEROIDAL ANTI-INFLAM*08/15/2020 8 - GI Upset Comments: Other reaction(s): GI Upset Other reaction(s): cramping, GI Upset, Other (See Comments), Upset Stomach Severe stomach pain Other reaction(s): GI Upset PENICILLINS 08/15/2020 2 - Rash 14 - Other: See Comments Comments: Other reaction(s): GI Upset, hives, horrible taste in mouth Other reaction(s): GI Upset, GI Upset, horrible taste in mouth, leaves a bad taste in her mouth., NEEDS FOLLOW-UP Other reaction(s): GI Upset, hives, horrible taste in mouth PREGABALIN 08/15/2020 7 - Swelling 14 - Other: See Comments 16 - Unknown Comments: Other reaction(s): swelling, Swelling Other reaction(s): Swelling, Unknown Other reaction(s): swelling, Swelling AMLODIPINE 06/22/2024 5 - Intolerance Comments: leg swelling at 10 mg CELEBREX (CELECOXIB) 08/09/2024 5 - Intolerance Comments: feet and leg swelling PENICILLIN G 11/11/2021 8 - GI Upset IBUPROFEN 11/11/2021 8 - GI Upset Comments: Vomiting cramping TYLENOL (ACETAMINOPHEN) 10/27/2022 8 - GI Upset Date Reviewed: 08/19/2024 Reviewed by: Samantha Armstrong LPN - Fully Assessed Reason for Visit: Reminder Call [[id number]] Prescriptions as of 08/24/2024 - zoledronic acid (RECLAST) 5 mg/100 mL PREMIX piggyback Inject 100 mL intravenously every year. - empagliflozin (JARDIANCE) 10 mg tablet Take 1 tablet by mouth daily with breakfast. - losartan (COZAAR) 100 mg tablet Take 1 tablet by mouth once daily. - spironolactone (ALDACTONE) 25 mg tablet Take 1 tablet by mouth once daily. - hydrALAZINE (APRESOLINE) 50 mg tablet Take 1 tablet by mouth four times daily. Hold if blood pressure is less than 110/60 - Cholecalciferol, Vitamin D3, 25 mcg (1,000 unit) cap Take 1 capsule by mouth once daily. - gabapentin (NEURONTIN) 800 mg tablet Take 1 tablet by mouth four times daily for 90 days. - tiZANidine (ZANAFLEX) 4 mg tablet Take 1 tablet by mouth three times a day as needed. - Blood-Glucose Meter,Continuous (DEXCOM G6 HR COORDINATOR) misc 1 Each once daily. - Blood-Glucose Transmitter (DEXCOM G6 TRANSMITTER) jaguar 1 Each once daily. - hydroCHLOROthiazide 25 mg tablet Take 1 tablet by mouth once daily. - insulin glargine 100 unit/mL (3 mL) Inject 24 Units subcutaneously daily at bedtime. - polyethylene glycol 3350 17 gram/dose powder Take 17 g by mouth once daily as needed for constipation. - ondansetron orally disintegrating (ZOFRAN ODT) 8 mg disintegrating tablet Take 1 tablet by mouth every 8 hours as needed for nausea/vomiting. - omeprazole (PRILOSEC) 40 mg capsule Take 1 capsule by mouth two times a day. - blood sugar diagnostic (ONETOUCH VERIO TEST STRIPS) test strip 1 Strip four times daily. Use as instructed - Insulin Willow, Disposable, (BD ULTRA-FINE PADMINI PEN NEEDLE) 32 gauge x 5/32" 1 Each three times a day. - fluticasone-salmeterol HFA (ADVAIR HFA) 230-21 mcg/actuation inhaler Inhale 2 Puffs as instructed two times a day. - loratadine (CLARITIN) 10 mg tablet Take 1 tablet by mouth once daily. - albuterol HFA (PROVENTIL HFA, VENTOLIN HFA) 90 mcg/actuation inhaler Inhale 2 Puffs as instructed every 4 hours as needed for wheezing/shortness of breath. - CPAP/BIPAP/OTHER Type .CPAPSettings into a note to see current settings/supplies/DME information. - insulin lispro (HUMALOG KWIKPEN) 100 unit/mL Inject 8 Units subcutaneously three times a day before meals. Taking as needed Problem List As Of Date 08/24/2024 Noted Resolved Uncontrolled type 2 diabetes mellitus with hype*08/28/2022 Chronic midline low back pain with sciatica [M5*08/28/2022 Chronic obstructive lung disease (HCC) [J44.9] 10/18/2022 11/05/2022 Chronic obstructive pulmonary disease, unspecif*11/30/2021 Hyperlipidemia, unspecified [E78.5] 06/15/2021 Tobacco use [Z72.0] 11/05/[address] scan, kidney [R93.429] 11/05/2022 Dyspepsia [R10.13] 02/21/2023 Epigastric pain [R10.13] 02/21/2023 Right upper quadrant abdominal pain [R10.11] 02/21/2023 Chronic gastritis without bleeding [K29.50] 03/12/2023 Gastric wall thickening [K31.89] 03/12/2023 Primary hypertension [I10] 06/11/2023 Neuropathy [G62.9] 06/11/2023 Back pain with history of spinal surgery [M54.9*06/11/2023 FRANCISCO (obstructive sleep apnea) [G47.33] 06/11/2023 DM gastroparesis (HCC) [E11.43, K31.84] 07/04/2023 Abdominal bloating [R14.0] 10/13/2023 Obesity [E66.9] 10/13/2023 Diagnosed: 10/13/2023 Postlaminectomy syndrome of lumbar region [M96.*10/31/2022 Diagnosed: 10/13/2023 Sciatica [M54.30] 11/18/2022 Diagnosed: 10/13/2023 Fall at home, initial encounter [W19.XXXA, Y92.*11/26/2023 12/04/2023 Nicotine use disorder, F17.2 [F17.200] 11/28/2023 Osteoporosis [M81.0] 08/20/2024 Encounter Status:Closed by MARIMAR DAHL on 08/24/24 25(OH)D3 SERPL-MCNC Collected: 08/19/2024 9:[address] atus: F Source: [facility] Order Comment: Specimen Type : BLOOD SPECIMEN Ordering Facility: [facility] Address: [address] [place] [address] TYPE CODE TESTS RESULT OUT OF RANGE REFERENCE UNITS LAB 1988-11(LOINC) 25(OH)D3 SerPl-mCnc 18.8 Low 31.0-80.0 ng/mL Performed By: #### 1988-11 ## ## [facility] CLIA [id number] [address] [place] [address] [place] [address] [place] Observed: 08/19/2024 8:21 AM Status: COMPLETED Source: [facility] HNO ID: [id number] Author: GEORGINA GONSALEZ APRN.PATIENT SERVICES COORDINATOR Service: ? Author Type: Nurse Specialist Type: Progress Notes Filed: 08/19/2024 09:21 Note Text: SUBJECTIVE: Dilated Retinal Exam Never done Diabetic Foot Exam Never done Spirometry Never done Cervical Cancer Screening Never done Mammogram Screening due on 08/20/2023 BP Controlled (<130/80) due on 02/26/2024 Colorectal Cancer Screening due on 10/16/2024 MANNY Buck is a 58 year old female.PMH significnat or ACTIVE PROBLEM LIST Uncontrolled Type 2 Diabetes Mellitus With Hyperglycemia (Hcc) Chronic Midline Low Back Pain With Sciatica Chronic Obstructive Pulmonary Disease, Unspecified (Hcc) Hyperlipidemia, Unspecified Tobacco Use Abnormal CT Scan, Kidney Dyspepsia Epigastric Pain Right Upper Quadrant Abdominal Pain Chronic Gastritis Without Bleeding Gastric Wall Thickening Primary Hypertension Neuropathy Back Pain With History of Spinal Surgery Francisco (Obstructive Sleep Apnea) Dm Gastroparesis (Hcc) (Hcc) Abdominal Bloating Obesity Postlaminectomy Syndrome of Lumbar Region Sciatica Nicotine use disorder, F17.2 Presents today for a recheck. At her last visit she noted RUQ discomfort. Resuming PPI was advised. BP suboptimally controlled, her dose of HCTZ was increased. She was referred to make an appointment with Dr. Martinez general surgery in [place]. She was seen by pain management provider and referred to orthopedics for ongoing treatment for the left femur surgery done in November/the recent fall and the recent right hip replacement done in June. Advised to continue activity as tolerated and physical therapy at the direction of orthopedics/PT. Also to continue with the gabapentin, tizanidine and Lidoderm cream HPI excerpted from previous visit: She states she has been seeing pain management provider in [place], [facility]. States she has an upcoming appointment and no pain medications currently. States orthopedic provider advised did not want to manage her pain. Has not requested pain medication from them. (See care everywhere notes re: pain medications) She notes chronic left hip pain and chronic abdominal pain. Today reports that [facility] would not take her on as a patient, declined. She reports intolerance of NSAIDs due to GI upset, states Celebrex made her legs swell. Reports orthopedics no longer will prescribe pain medication, referred her to pain management.Notes going to [facility]. Continue with. HEP. Walking with rollator. RUQ discomfort: notes PPI helping, less GERD symptoms with this. HTN: Currently without report of headache, chest pain, palpitations, dyspnea, peripheral edema, orthopnea, fatigue, and PND. States not missing BP medications,. She notes that she has quit smoking. Review of outside medications shows some delays in getting refills of his blood pressure medications. At April visit in internal medicine amlodipine was discontinued due to swelling in the leg and resumed on losartan. Continues to smoke, contemplating stopping. Notes anxiety but does not want to take medication or see counselor for this. HTN: Without report of headache, chest pain, palpitations, dyspnea, peripheral edema, orthopnea, fatigue, and PND. Last 14 Encounter BP Readings: Date: BP: 08/19/2024 179/85 08/09/2024 138/80 07/29/2024 168/93 06/21/2024 157/99 05/20/2024 168/94 05/05/2024 128/70 04/15/2024 128/75 03/29/2024 169/90 02/27/2024 120/72 01/29/2024 136/67 01/29/2024 171/85 11/27/2023 165/83 11/26/2023 155/71 10/23/2023 167/82 Patient's last HgA1C Hemoglobin A1C (%) Date Value 08/09/2024 8.9 04/22/2024 7.9 She notes abdominal pain continues unchanged.She has stress test scheduled. Notes RUQ/epigastric discomfort. Taking PPI only intermittently as needed. She reports a sensation of something "folding" in her abdomen recently with decreased numbness in the abdomen after this. No nausea vomiting diarrhea constipation BRBPR black or tarry stools is reported. Notes BM every other day, usual pattern. Review of Systems Constitutional: Negative. Respiratory: Negative. Cardiovascular: Negative. Gastrointestinal: Positive for abdominal pain. Musculoskeletal: Positive for arthralgias. Neurological: Negative for headaches. Objective BP 179/85 Pulse 81 Resp (!) 106 Wt 65.7 kg (144 lb 13.5 oz) BMI 28.29 kg/m? Physical Exam Vitals and nursing note reviewed. Constitutional: Appearance: Normal appearance. HENT: Head: Normocephalic and atraumatic. Eyes: Conjunctiva/sclera: Conjunctivae normal. Neck: Thyroid: No thyromegaly. Vascular: No JVD. Cardiovascular: Rate and Rhythm: Normal rate and regular rhythm. Heart sounds: Normal heart sounds. Pulmonary: Effort: Pulmonary effort is normal. Breath sounds: Normal breath sounds. Abdominal: General: Bowel sounds are normal. Palpations: Abdomen is soft. Musculoskeletal: Right lower leg: No edema. Left lower leg: No edema. Comments: brace left leg Skin: General: Skin is warm and dry. Neurological: General: No focal deficit present. Mental Status: She is alert and oriented to person, place, and time. ALLERGIES Allergen Reactions Duloxetine Swelling, Other: See Comments Other reaction(s): swelling Other reaction(s): Unknown Other reaction(s): swelling Nsaids (Non-Steroid* GI Upset Other reaction(s): GI Upset Other reaction(s): cramping, GI Upset, Other (See Comments), Upset Stomach Severe stomach pain Other reaction(s): GI Upset Penicillins Rash, Other: See Comments Other reaction(s): GI Upset, hives, horrible taste in mouth Other reaction(s): GI Upset, GI Upset, horrible taste in mouth, leaves a bad taste in her mouth., NEEDS FOLLOW-UP Other reaction(s): GI Upset, hives, horrible taste in mouth Pregabalin Swelling, Other: See Comments, Unknown Other reaction(s): swelling, Swelling Other reaction(s): Swelling, Unknown Other reaction(s): swelling, Swelling Amlodipine Intolerance leg swelling at 10 mg Celebrex [Celecoxib] Intolerance feet and leg swelling Penicillin G GI Upset Ibuprofen GI Upset Vomiting cramping Tylenol [Acetaminop* GI Upset Medications hydroCHLOROthiazide 25 mg tablet Take 1 tablet by mouth once daily. hydrALAZINE (APRESOLINE) 50 mg tablet Take 1 tablet by mouth four times daily. Hold if blood pressure is less than 110/60 gabapentin (NEURONTIN) 800 mg tablet Take 1 tablet by mouth four times daily for 90 days. insulin glargine 100 unit/mL (3 mL) Inject 24 Units subcutaneously daily at bedtime. polyethylene glycol 3350 17 gram/dose powder Take 17 g by mouth once daily as needed for constipation. losartan (COZAAR) 100 mg tablet Take 1 tablet by mouth once daily. ondansetron orally disintegrating (ZOFRAN ODT) 8 mg disintegrating tablet Take 1 tablet by mouth every 8 hours as needed for nausea/vomiting. omeprazole (PRILOSEC) 40 mg capsule Take 1 capsule by mouth two times a day. blood sugar diagnostic ([employer]UCH VERIO TEST STRIPS) test strip 1 Strip four times daily. Use as instructed Insulin Willow, Disposable, (BD ULTRA-FINE PADMINI PEN NEEDLE) 32 gauge x 5/32" 1 Each three times a day. fluticasone-salmeterol HFA (ADVAIR HFA) 230-21 mcg/actuation inhaler Inhale 2 Puffs as instructed two times a day. loratadine (CLARITIN) 10 mg tablet Take 1 tablet by mouth once daily. tiZANidine (ZANAFLEX) 4 mg tablet Take 4 mg by mouth three times a day as needed. albuterol HFA (PROVENTIL HFA, VENTOLIN HFA) 90 mcg/actuation inhaler Inhale 2 Puffs as instructed every 4 hours as needed for wheezing/shortness of breath. CPAP/BIPAP/OTHER Type .CPAPSettings into a note to see current settings/supplies/DME information. zoledronic acid (RECLAST) 5 mg/100 mL pgbk PREMIX piggyback Inject 100 mL intravenously every year. insulin lispro (HUMALOG KWIKPEN) 100 unit/mL Inject 8 Units subcutaneously three times a day before meals. Taking as needed nicotine (NICODERM CQ) 21 mg/24 hr Apply 1 Patch as directed once daily. (Patient not taking: Reported on 05/20/2024) PAST MEDICAL HISTORY Diagnosis Date Abdominal bloating 10/13/2023 Arthritis COPD (chronic obstructive pulmonary disease) (HCC) Diabetes (HCC) Hypertension Median arcuate ligament syndrome (HCC) Sleep apnea Social History Tobacco Use Smoking status: Every Day Current packs/day: 1.00 Types: Cigarettes Smokeless tobacco: Never Tobacco comments: 3/4's of a pack daily Vaping Use Vaping status: Never Used Substance Use Topics Alcohol use: Never Drug use: Never ASSESSMENT/PLAN: 1. Primary hypertension - ICD9: 401.9, ICD10: I10 (primary diagnosis) suboptimal conrol, add spironolactone 25 mg daily, recheck BP one month - Encouraged sodium restriction, DASH or Mediterranean diet - Recommend regular aerobic exercise - LOSARTAN 100 MG TABLET - HYDRALAZINE 50 MG TABLET 2. Screening for diabetic retinopathy - ICD9: V80.2, ICD10: Z13.5 States goes to [facility], due for recheck - CONSULT TO OPHTHALMOLOGY 4. Osteoporosis without current pathological fracture, unspecified osteoporosis type - ICD9: 733.00, ICD10: M81.0 5. Encounter for screening for osteoporosis - ICD9: V82.81, ICD10: Z13.820 6. Asymptomatic postmenopausal status - ICD9: V49.81, ICD10: Z78.0 - continue tx - Reviewed the need for Calcium and Vitamin D supplements and weight bearing exercise as tolerated - ZOLEDRONIC ACID 5 MG/100 ML IN MANNITOL 5 %-WATER INTRAVENOUS PIGGYBCK 7. Chronic midline low back pain with sciatica, sciatica laterality unspecified - ICD9: 724.2, 724.3, 338.29, ICD10: M54.40, G89.29 Stable, currently controlled, continue to monitor. - GABAPENTIN 800 MG TABLET 8. S/p left hip fracture - ICD9: V15.51, ICD10: Z87.81 Requests pain medication, provided with as needed for brakthrough pain. No chroninc pain medication management, would dfer to pain mnagement, declines additional referral at this time. - OXYCODONE 5 MG TABLET 9. Osteoporosis with pathological fracture with routine healing, subsequent encounter - ICD9: V54.29, ICD10: M80.00XD Pathological fracture of vertebra due to age-related osteoporosis - Reviewed the need for Calcium and Vitamin D supplements and weight bearing exercise as tolerated - DXA-AXIAL SKELETON - BD DXA TRABECULAR BONE SCORE (TBS) - VITAMIN D 25 HYDROXY 10. Uncontrolled type 2 diabetes mellitus with hyperglycemia (HCC) - ICD9: 250.02, ICD10: E11.65 - Uncontrolled - Continue current medications - Start sitagliptin (Januvia) - HEMOGLOBIN A1C - DEXCOM G6 HR COORDINATOR - DEXCOM G6 TRANSMITTER DEVICE Georgina Gonsalez APRN.PATIENT SERVICES COORDINATOR ASSESSMENT/PLAN: 1. Primary hypertension - ICD9: 401.9, ICD10: I10 (primary diagnosis) Improved control, Continue current treatment unchanged - Encourage sodium restriction, DASH or Mediterranean diet - Recommend regular aerobic exercise - HYDROCHLOROTHIAZIDE 25 MG TABLET 2. . Right upper quadrant abdominal pain - ICD9: 789.01, ICD10: R10.11 Continue with PPI daily as it is helping with GERD symptoms and abdominal pain. 3. Tobacco use - ICD9: 305.1, ICD10: Z72.0 She has resumed smoking, contemplating quitting. 4. Uncontrolled type 2 diabetes mellitus with hyperglycemia (HCC) - ICD9: 250.02, ICD10: E11.65 Improved control Check lab today - Continue current medications - HEMOGLOBIN A1C 5. S/p left hip fracture - ICD9: V15.51, ICD10: Z87.81 She reports that orthopedic provider did not want to treat pain after "a couple weeks", has not asked ortho for additional pain medication. 3 day supply given, no additional. Can follow up with pain management or orthopedics if any needs regarding this going forward. - OXYCODONE 5 MG TABLET 6. Encounter for immunization - ICD9: V03.89, ICD10: Z23 - PNEUMOCOCCAL VACCINE, 20 VALENT (PREVNAR 20) - TDAP VACCINE, AGE 7+ YR (ADACEL, BOOSTRIX) - ZOSTER VACCINE, RECOMBINANT (SHINGRIX) - ZOSTER VACCINE, RECOMBINANT (SHINGRIX) - INFLUENZA VACCINE, AGE 6MO-64YR, TRIVALENT (AFLURIA, FLULAVAL, FLUVIRIN, FLUZONE) - [employer] COVID-19 VACCINE AGE 12+ YR (COMIRNATY) 7. Screening for diabetic retinopathy - ICD9: V80.2, ICD10: Z13.5 - CONSULT TO OPHTHALMOLOGY 8. Chronic obstructive pulmonary disease, unspecified (HCC) - ICD9: 496, ICD10: J44.9 - SPIROMETRY - BASELINE AND POST DILATOR 9. Screening for depression - ICD9: V79.0, ICD10: Z13.31 - DEPRESSION SCREENING 10. Encounter for screening examination for other mental health and behavioral disorders - ICD9: V79.8, ICD10: Z13.39 - ANXIETY SCREENING - positive, declines treatment For blood pressure please add spironolactone once daily in the morning. For diabetes control and kidney protection add Jardiance once daily with breakfast. For your bones start taking vitamin once daily Start using [facility] today schedule zoledronic acid infusion 1 mo recheck Georgina Gonsalez APRN.PATIENT SERVICES COORDINATOR 3 mo recheck Rissa Hanks MD She needs a stress test completed to be scheduled for surgery per Dr Martinez. She has a surgery appt scheduled Georgina Gonsalez APRN.PATIENT SERVICES COORDINATOR Medical Decision Making: Problems: Moderate: 2+ stable chronic illnesses Data: Unique test(s) ordered: 2 Risk: Moderate: Drug management Medical Decision Making Level: 4 - Moderate CNOV Observed: 08/19/2024 8:20 AM Status: COMPLETED Source: [facility] Office Visit (INTMWS) NIKKIE BUCK ([id number]) 1965 F Date Time Provider Department 08/19/24 8:20 AM GEORGINA GONSALEZ INTMWS During your visit today, we recorded the following information about you: Pulse Respiration Blood pressure Weight 82/minute 16/minute 179/85 65.7 kg Georgina Gonsalez APRN.PATIENT SERVICES COORDINATOR 08/19/2024 9:21 AM Signed SUBJECTIVE: Dilated Retinal Exam Never done Diabetic Foot Exam Never done Spirometry Never done Cervical Cancer Screening Never done Mammogram Screening due on 08/20/2023 BP Controlled (<130/80) due on 02/26/2024 Colorectal Cancer Screening due on 10/16/2024 HPI Nikkie Buck is a 58 year old female.PMH significnat or ACTIVE PROBLEM LIST Uncontrolled Type 2 Diabetes Mellitus With Hyperglycemia (Hcc) Chronic Midline Low Back Pain With Sciatica Chronic Obstructive Pulmonary Disease, Unspecified (Hcc) Hyperlipidemia, Unspecified Tobacco Use Abnormal CT Scan, Kidney Dyspepsia Epigastric Pain Right Upper Quadrant Abdominal Pain Chronic Gastritis Without Bleeding Gastric Wall Thickening Primary Hypertension Neuropathy Back Pain With History of Spinal Surgery Francisco (Obstructive Sleep Apnea) Dm Gastroparesis (Hcc) (Hcc) Abdominal Bloating Obesity Postlaminectomy Syndrome of Lumbar Region Sciatica Nicotine use disorder, F17.2 Presents today for a recheck. At her last visit she noted RUQ discomfort. Resuming PPI was advised. BP suboptimally controlled, her dose of HCTZ was increased. She was referred to make an appointment with Dr. Martinez general surgery in [place]. She was seen by pain management provider and referred to orthopedics for ongoing treatment for the left femur surgery done in November/the recent fall and the recent right hip replacement done in June. Advised to continue activity as tolerated and physical therapy at the direction of orthopedics/PT. Also to continue with the gabapentin, tizanidine and Lidoderm cream HPI excerpted from previous visit: She states she has been seeing pain management provider in [place], [facility]. States she has an upcoming appointment and no pain medications currently. States orthopedic provider advised did not want to manage her pain. Has not requested pain medication from them. (See care everywhere notes re: pain medications) She notes chronic left hip pain and chronic abdominal pain. Today reports that [facility] would not take her on as a patient, declined. She reports intolerance of NSAIDs due to GI upset, states Celebrex made her legs swell. Reports orthopedics no longer will prescribe pain medication, referred her to pain management.Notes going to [facility]. Continue with. HEP. Walking with rollator. RUQ discomfort: notes PPI helping, less GERD symptoms with this. HTN: Currently without report of headache, chest pain, palpitations, dyspnea, peripheral edema, orthopnea, fatigue, and PND. States not missing BP medications,. She notes that she has quit smoking. Review of outside medications shows some delays in getting refills of his blood pressure medications. At April visit in internal medicine amlodipine was discontinued due to swelling in the leg and resumed on losartan. Continues to smoke, contemplating stopping. Notes anxiety but does not want to take medication or see counselor for this. HTN: Without report of headache, chest pain, palpitations, dyspnea, peripheral edema, orthopnea, fatigue, and PND. Last 14 Encounter BP Readings: Date: BP: 08/19/2024 179/85 08/09/2024 138/80 07/29/2024 168/93 06/21/2024 157/99 05/20/2024 168/94 05/05/2024 128/70 04/15/2024 128/75 03/29/2024 169/90 02/27/2024 120/72 01/29/2024 136/67 01/29/2024 171/85 11/27/2023 165/83 11/26/2023 155/71 10/23/2023 167/82 Patient's last HgA1C Hemoglobin A1C (%) Date Value 08/09/2024 8.9 04/22/2024 7.9 She notes abdominal pain continues unchanged.She has stress test scheduled. Notes RUQ/epigastric discomfort. Taking PPI only intermittently as needed. She reports a sensation of something "folding" in her abdomen recently with decreased numbness in the abdomen after this. No nausea vomiting diarrhea constipation BRBPR black or tarry stools is reported. Notes BM every other day, usual pattern. Review of Systems Constitutional: Negative. Respiratory: Negative. Cardiovascular: Negative. Gastrointestinal: Positive for abdominal pain. Musculoskeletal: Positive for arthralgias. Neurological: Negative for headaches. Objective BP 179/85 Pulse 81 Resp (!) 106 Wt 65.7 kg (144 lb 13.5 oz) BMI 28.29 kg/m? Physical Exam Vitals and nursing note reviewed. Constitutional: Appearance: Normal appearance. HENT: Head: Normocephalic and atraumatic. Eyes: Conjunctiva/sclera: Conjunctivae normal. Neck: Thyroid: No thyromegaly. Vascular: No JVD. Cardiovascular: Rate and Rhythm: Normal rate and regular rhythm. Heart sounds: Normal heart sounds. Pulmonary: Effort: Pulmonary effort is normal. Breath sounds: Normal breath sounds. Abdominal: General: Bowel sounds are normal. Palpations: Abdomen is soft. Musculoskeletal: Right lower leg: No edema. Left lower leg: No edema. Comments: brace left leg Skin: General: Skin is warm and dry. Neurological: General: No focal deficit present. Mental Status: She is alert and oriented to person, place, and time. ALLERGIES Allergen Reactions Duloxetine Swelling, Other: See Comments Other reaction(s): swelling Other reaction(s): Unknown Other reaction(s): swelling Nsaids (Non-Steroid* GI Upset Other reaction(s): GI Upset Other reaction(s): cramping, GI Upset, Other (See Comments), Upset Stomach Severe stomach pain Other reaction(s): GI Upset Penicillins Rash, Other: See Comments Other reaction(s): GI Upset, hives, horrible taste in mouth Other reaction(s): GI Upset, GI Upset, horrible taste in mouth, leaves a bad taste in her mouth., NEEDS FOLLOW-UP Other reaction(s): GI Upset, hives, horrible taste in mouth Pregabalin Swelling, Other: See Comments, Unknown Other reaction(s): swelling, Swelling Other reaction(s): Swelling, Unknown Other reaction(s): swelling, Swelling Amlodipine Intolerance leg swelling at 10 mg Celebrex [Celecoxib] Intolerance feet and leg swelling Penicillin G GI Upset Ibuprofen GI Upset Vomiting cramping Tylenol [Acetaminop* GI Upset Medications hydroCHLOROthiazide 25 mg tablet Take 1 tablet by mouth once daily. hydrALAZINE (APRESOLINE) 50 mg tablet Take 1 tablet by mouth four times daily. Hold if blood pressure is less than 110/60 gabapentin (NEURONTIN) 800 mg tablet Take 1 tablet by mouth four times daily for 90 days. insulin glargine 100 unit/mL (3 mL) Inject 24 Units subcutaneously daily at bedtime. polyethylene glycol 3350 17 gram/dose powder Take 17 g by mouth once daily as needed for constipation. losartan (COZAAR) 100 mg tablet Take 1 tablet by mouth once daily. ondansetron orally disintegrating (ZOFRAN ODT) 8 mg disintegrating tablet Take 1 tablet by mouth every 8 hours as needed for nausea/vomiting. omeprazole (PRILOSEC) 40 mg capsule Take 1 capsule by mouth two times a day. blood sugar diagnostic ([facility] VERIO TEST STRIPS) test strip 1 Strip four times daily. Use as instructed Insulin Willow, Disposable, (BD ULTRA-FINE PADMINI PEN NEEDLE) 32 gauge x 5/32" 1 Each three times a day. fluticasone-salmeterol HFA (ADVAIR HFA) 230-21 mcg/actuation inhaler Inhale 2 Puffs as instructed two times a day. loratadine (CLARITIN) 10 mg tablet Take 1 tablet by mouth once daily. tiZANidine (ZANAFLEX) 4 mg tablet Take 4 mg by mouth three times a day as needed. albuterol HFA (PROVENTIL HFA, VENTOLIN HFA) 90 mcg/actuation inhaler Inhale 2 Puffs as instructed every 4 hours as needed for wheezing/shortness of breath. CPAP/BIPAP/OTHER Type .CPAPSettings into a note to see current settings/supplies/DME information. zoledronic acid (RECLAST) 5 mg/100 mL pgbk PREMIX piggyback Inject 100 mL intravenously every year. insulin lispro (HUMALOG KWIKPEN) 100 unit/mL Inject 8 Units subcutaneously three times a day before meals. Taking as needed nicotine (NICODERM CQ) 21 mg/24 hr Apply 1 Patch as directed once daily. (Patient not taking: Reported on 05/20/2024) PAST MEDICAL HISTORY Diagnosis Date Abdominal bloating 10/13/2023 Arthritis COPD (chronic obstructive pulmonary disease) (HCC) Diabetes (HCC) Hypertension Median arcuate ligament syndrome (HCC) Sleep apnea Social History Tobacco Use Smoking status: Every Day Current packs/day: 1.00 Types: Cigarettes Smokeless tobacco: Never Tobacco comments: 3/4's of a pack daily Vaping Use Vaping status: Never Used Substance Use Topics Alcohol use: Never Drug use: Never ASSESSMENT/PLAN: 1. Primary hypertension - ICD9: 401.9, ICD10: I10 (primary diagnosis) suboptimal conrol, add spironolactone 25 mg daily, recheck BP one month - Encouraged sodium restriction, DASH or Mediterranean diet - Recommend regular aerobic exercise - LOSARTAN 100 MG TABLET - HYDRALAZINE 50 MG TABLET 2. Screening for diabetic retinopathy - ICD9: V80.2, ICD10: Z13.5 States goes to [facility], due for recheck - CONSULT TO OPHTHALMOLOGY 4. Osteoporosis without current pathological fracture, unspecified osteoporosis type - ICD9: 733.00, ICD10: M81.0 5. Encounter for screening for osteoporosis - ICD9: V82.81, ICD10: Z13.820 6. Asymptomatic postmenopausal status - ICD9: V49.81, ICD10: Z78.0 - continue tx - Reviewed the need for Calcium and Vitamin D supplements and weight bearing exercise as tolerated - ZOLEDRONIC ACID 5 MG/100 ML IN [place]ANN[place] 5 %-WATER INTRAVENOUS PIGGYBCK 7. Chronic midline low back pain with sciatica, sciatica laterality unspecified - ICD9: 724.2, 724.3, 338.29, ICD10: M54.40, G89.29 Stable, currently controlled, continue to monitor. - GABAPENTIN 800 MG TABLET 8. S/p left hip fracture - ICD9: V15.51, ICD10: Z87.81 Requests pain medication, provided with as needed for brakthrough pain. No chroninc pain medication management, would dfer to pain mnagement, declines additional referral at this time. - OXYCODONE 5 MG TABLET 9. Osteoporosis with pathological fracture with routine healing, subsequent encounter - ICD9: V54.29, ICD10: M80.00XD Pathological fracture of vertebra due to age-related osteoporosis - Reviewed the need for Calcium and Vitamin D supplements and weight bearing exercise as tolerated - DXA-AXIAL SKELETON - BD DXA TRABECULAR BONE SCORE (TBS) - VITAMIN D 25 HYDROXY 10. Uncontrolled type 2 diabetes mellitus with hyperglycemia (HCC) - ICD9: 250.02, ICD10: E11.65 - Uncontrolled - Continue current medications - Start sitagliptin (Januvia) - HEMOGLOBIN A1C - DEXCOM G6 HR COORDINATOR - DEXCOM G6 TRANSMITTER DEVICE Georgina GonsalezWINIFRED.PATIENT SERVICES COORDINATOR ASSESSMENT/PLAN: 1. Primary hypertension - ICD9: 401.9, ICD10: I10 (primary diagnosis) Improved control, Continue current treatment unchanged - Encourage sodium restriction, DASH or Mediterranean diet - Recommend regular aerobic exercise - HYDROCHLOROTHIAZIDE 25 MG TABLET 2. . Right upper quadrant abdominal pain - ICD9: 789.01, ICD10: R10.11 Continue with PPI daily as it is helping with GERD symptoms and abdominal pain. 3. Tobacco use - ICD9: 305.1, ICD10: Z72.0 She has resumed smoking, contemplating quitting. 4. Uncontrolled type 2 diabetes mellitus with hyperglycemia (HCC) - ICD9: 250.02, ICD10: E11.65 Improved control Check lab today - Continue current medications - HEMOGLOBIN A1C 5. S/p left hip fracture - ICD9: V15.51, ICD10: Z87.81 She reports that orthopedic provider did not want to treat pain after "a couple weeks", has not asked ortho for additional pain medication. 3 day supply given, no additional. Can follow up with pain management or orthopedics if any needs regarding this going forward. - OXYCODONE 5 MG TABLET 6. Encounter for immunization - ICD9: V03.89, ICD10: Z23 - PNEUMOCOCCAL VACCINE, 20 VALENT (PREVNAR 20) - TDAP VACCINE, AGE 7+ YR (ADACEL, BOOSTRIX) - ZOSTER VACCINE, RECOMBINANT (SHINGRIX) - ZOSTER VACCINE, RECOMBINANT (SHINGRIX) - INFLUENZA VACCINE, AGE 6MO-64YR, TRIVALENT (AFLURIA, FLULAVAL, FLUVIRIN, FLUZONE) - [employer] COVID-19 VACCINE AGE 12+ YR (COMIRNATY) 7. Screening for diabetic retinopathy - ICD9: V80.2, ICD10: Z13.5 - CONSULT TO OPHTHALMOLOGY 8. Chronic obstructive pulmonary disease, unspecified (HCC) - ICD9: 496, ICD10: J44.9 - SPIROMETRY - BASELINE AND POST DILATOR 9. Screening for depression - ICD9: V79.0, ICD10: Z13.31 - DEPRESSION SCREENING 10. Encounter for screening examination for other mental health and behavioral disorders - ICD9: V79.8, ICD10: Z13.39 - ANXIETY SCREENING - positive, declines treatment For blood pressure please add spironolactone once daily in the morning. For diabetes control and kidney protection add Jardiance once daily with breakfast. For your bones start taking vitamin once daily Start using [facility] today schedule zoledronic acid infusion 1 mo recheck Georgina Gonsalez APRN.PATIENT SERVICES COORDINATOR 3 mo recheck Rissa Hanks MD She needs a stress test completed to be scheduled for surgery per Dr Martinez. She has a surgery appt scheduled Georgina Gonsalez APRN.CNS Medical Decision Making: Problems: Moderate: 2+ stable chronic illnesses Data: Unique test(s) ordered: 2 Risk: Moderate: Drug management Medical Decision Making Level: 4 - Moderate Georgina Gonsalez APRN.CNS 08/19/2024 9:02 AM Addendum For blood pressure please add spironolactone once daily in the morning. For diabetes control and kidney protection add Jardiance once daily with breakfast. For your bones start taking vitamin once daily BONE MINERAL DENSITY PATIENT INSTRUCTIONS Bone mineral density testing measures the amount of calcium in certain parts of your bones. This information determines how strong your bones are. The test is used to detect osteoporosis, a disease in which the bone's mineral content and density are low, increasing a person's risk of fractures. The lumbar spine (lower back) and the hip are the skeletal sites usually examined. For the test, remember that: 1. You cannot take this test if you are . 2. Eat a normal diet on the day of the test. 3. Take your medications as you normally would. 4. DO NOT take calcium supplements (such as Tums) for 24 hours before the test. 5. On the day of the test, leave valuables (jewelry or credit cards) at home. 6. The test should be performed prior to oral, rectal or IV contrast studies, or at least 7 days after any of these studies. For the test, you may be asked to wear a hospital gown. You will lie on your back, on a padded table, in a comfortable position. Generally, you can resume your usual activities immediately. Allergies As of Date: 08/19/2024 Noted Allergy Reaction DULOXETINE 06/15/2021 7 - Swelling 14 - Other: See Comments Comments: Other reaction(s): swelling Other reaction(s): Unknown Other reaction(s): swelling NSAIDS (NON-STEROIDAL ANTI-INFLAM*08/15/2020 8 - GI Upset Comments: Other reaction(s): GI Upset Other reaction(s): cramping, GI Upset, Other (See Comments), Upset Stomach Severe stomach pain Other reaction(s): GI Upset PENICILLINS 08/15/2020 2 - Rash 14 - Other: See Comments Comments: Other reaction(s): GI Upset, hives, horrible taste in mouth Other reaction(s): GI Upset, GI Upset, horrible taste in mouth, leaves a bad taste in her mouth., NEEDS FOLLOW-UP Other reaction(s): GI Upset, hives, horrible taste in mouth PREGABALIN 08/15/2020 7 - Swelling 14 - Other: See Comments 16 - Unknown Comments: Other reaction(s): swelling, Swelling Other reaction(s): Swelling, Unknown Other reaction(s): swelling, Swelling AMLODIPINE 06/22/2024 5 - Intolerance Comments: leg swelling at 10 mg CELEBREX (CELECOXIB) 08/09/2024 5 - Intolerance Comments: feet and leg swelling PENICILLIN G 11/11/2021 8 - GI Upset IBUPROFEN 11/11/2021 8 - GI Upset Comments: Vomiting cramping TYLENOL (ACETAMINOPHEN) 10/27/2022 8 - GI Upset Date Reviewed: 08/19/2024 Reviewed by: Samantha Armstrong LPN - Fully Assessed Reason for Visit: Results [95] Cmt: bone density Pain [78] Primary Visit Diagnosis:Primary hypertension [I10] Other Visit Diagnoses:Screening for diabetic retinopathy [Z13.5] Screening for cervical cancer [Z12.4] Osteoporosis without current pathological fracture, unspecified osteoporosis type [M81.0] Encounter for screening for osteoporosis [Z13.820] Asymptomatic postmenopausal status [Z78.0] Chronic midline low back pain with sciatica, sciatica laterality unspecified [M54.40, G89.29] S/p left hip fracture [Z87.81] Osteoporosis with pathological fracture with routine healing, subsequent encounter [M80.00XD] Uncontrolled type 2 diabetes mellitus with hyperglycemia (HCC) [E11.65] Order(s):CONSULT TO OPHTHALMOLOGY [9012] Order #: [id number]: 1 FUTURE DXA-AXIAL SKELETON [3757742] Order #: [id number] FUTURE BD DXA TRABECULAR BONE SCORE (TBS) [9958671] Order #: [id number] FUTURE empagliflozin (JARDIANCE) 10 mg tabletTake 1 tablet by mouth daily with breakfast.Disp: 30 tabletRfl: 11 losartan (COZAAR) 100 mg tabletTake 1 tablet by mouth once daily.Disp: 30 tabletRfl: 11 hydrALAZINE (APRESOLINE) 50 mg tabletTake 1 tablet by mouth four times daily. Hold if blood pressure is less than 110/60Disp: 120 tabletRfl: 11 [] VITAMIN D 25 HYDROXY [SQVITD] Order #: [id number] FUTURE gabapentin (NEURONTIN) 800 mg tabletTake 1 tablet by mouth four times daily for 90 days.Disp: 120 tabletRfl: 2 tiZANidine (ZANAFLEX) 4 mg tabletTake 1 tablet by mouth three times a day as needed.Disp: 90 tabletRfl: 1 HEMOGLOBIN A1C [BRAHU7R] Order #: [id number] FUTURE Blood-Glucose Meter,Continuous (DEXCOM G6 HR COORDINATOR) misc1 Each once daily.Disp: 1 EachRfl: 0 Blood-Glucose Transmitter (DEXCOM G6 TRANSMITTER) devi1 Each once daily.Disp: 3 EachRfl: 12 Prescriptions as of 11/26/2024 - polyethylene glycol 3350 17 gram/dose powder Take 17 g by mouth once daily as needed for constipation. - oxyCODONE IR (ROXICODONE) 5 mg immediate release tablet Take 1 tablet by mouth four times a day as needed for pain for up to 7 days. - Cholecalciferol, Vitamin D3, 50 mcg (2,000 unit) cap Take 1 capsule by mouth once daily. - insulin glargine 100 unit/mL (3 mL) Inject 24 Units subcutaneously daily at bedtime. - Insulin Willow, Disposable, (BD ULTRA-FINE PADMINI PEN NEEDLE) 32 gauge x 5/32" 1 Each three times a day. - Blood-Glucose Sensor (DEXCOM G6 SENSOR) jaguar 3 Each every 10 days. - empagliflozin (JARDIANCE) 10 mg tablet Take 1 tablet by mouth daily with breakfast. - losartan (COZAAR) 100 mg tablet Take 1 tablet by mouth once daily. - hydrALAZINE (APRESOLINE) 50 mg tablet Take 1 tablet by mouth four times daily. Hold if blood pressure is less than 110/60 - gabapentin (NEURONTIN) 800 mg tablet Take 1 tablet by mouth four times daily for 90 days. - tiZANidine (ZANAFLEX) 4 mg tablet Take 1 tablet by mouth three times a day as needed. - Blood-Glucose Meter,Continuous (DEXCOM G6 HR COORDINATOR) misc 1 Each once daily. - Blood-Glucose Transmitter (DEXCOM G6 TRANSMITTER) jaguar 1 Each once daily. - hydroCHLOROthiazide 25 mg tablet Take 1 tablet by mouth once daily. - ondansetron orally disintegrating (ZOFRAN ODT) 8 mg disintegrating tablet Take 1 tablet by mouth every 8 hours as needed for nausea/vomiting. - omeprazole (PRILOSEC) 40 mg capsule Take 1 capsule by mouth two times a day. - blood sugar diagnostic ([facility] VERIO TEST STRIPS) test strip 1 Strip four times daily. Use as instructed - fluticasone-salmeterol HFA (ADVAIR HFA) 230-21 mcg/actuation inhaler Inhale 2 Puffs as instructed two times a day. - loratadine (CLARITIN) 10 mg tablet Take 1 tablet by mouth once daily. - albuterol HFA (PROVENTIL HFA, VENTOLIN HFA) 90 mcg/actuation inhaler Inhale 2 Puffs as instructed every 4 hours as needed for wheezing/shortness of breath. - CPAP/BIPAP/OTHER Type .CPAPSettings into a note to see current settings/supplies/DME information. - insulin lispro (HUMALOG KWIKPEN) 100 unit/mL Inject 8 Units subcutaneously three times a day before meals. Taking as needed Problem List As Of Date 08/19/2024 Noted Resolved Uncontrolled type 2 diabetes mellitus with hype*08/28/2022 Chronic midline low back pain with sciatica [M5*08/28/2022 Chronic obstructive lung disease (HCC) [J44.9] 10/18/2022 11/05/2022 Chronic obstructive pulmonary disease, unspecif*11/30/2021 Hyperlipidemia, unspecified [E78.5] 06/15/2021 Tobacco use [Z72.0] 11/05/[address] scan, kidney [R93.429] 11/05/2022 Dyspepsia [R10.13] 02/21/2023 Epigastric pain [R10.13] 02/21/2023 Right upper quadrant abdominal pain [R10.11] 02/21/2023 Chronic gastritis without bleeding [K29.50] 03/12/2023 Gastric wall thickening [K31.89] 03/12/2023 Primary hypertension [I10] 06/11/2023 Neuropathy [G62.9] 06/11/2023 Back pain with history of spinal surgery [M54.9*06/11/2023 FRANCISCO (obstructive sleep apnea) [G47.33] 06/11/2023 DM gastroparesis (HCC) [E11.43, K31.84] 07/04/2023 Abdominal bloating [R14.0] 10/13/2023 Obesity [E66.9] 10/13/2023 Diagnosed: 10/13/2023 Postlaminectomy syndrome of lumbar region [M96.*10/31/2022 Diagnosed: 10/13/2023 Sciatica [M54.30] 11/18/2022 Diagnosed: 10/13/2023 Fall at home, initial encounter [W19.XXXA, Y92.*11/26/2023 12/04/2023 Nicotine use disorder, F17.2 [F17.200] 11/28/2023 Other instructions from your clinician: For blood pressure please add spironolactone once daily in the morning. For diabetes control and kidney protection add Jardiance once daily with breakfast. For your bones start taking vitamin once daily BONE MINERAL DENSITY PATIENT INSTRUCTIONS Bone mineral density testing measures the amount of calcium in certain parts of your bones. This information determines how strong your bones are. The test is used to detect osteoporosis, a disease in which the bone's mineral content and density are low, increasing a person's risk of fractures. The lumbar spine (lower back) and the hip are the skeletal sites usually examined. For the test, remember that: 1. You cannot take this test if you are . 2. Eat a normal diet on the day of the test. 3. Take your medications as you normally would. 4. DO NOT take calcium supplements (such as Tums) for 24 hours before the test. 5. On the day of the test, leave valuables (jewelry or credit cards) at home. 6. The test should be performed prior to oral, rectal or IV contrast studies, or at least 7 days after any of these studies. For the test, you may be asked to wear a hospital gown. You will lie on your back, on a padded table, in a comfortable position. Generally, you can resume your usual activities immediately. Prescriptions ordered this encounter Disp Refills Start End ZOLEDRONIC ACID 5 MG/100 ML IN [place]* 100 * 0 08/19/2024 09/23/2024 Route: INTRAVENOUS Sig: Inject 100 mL intravenously every year. EMPAGLIFLOZIN 10 MG TABLET 30 t* 11 08/19/2024 Route: ORAL Sig: Take 1 tablet by mouth daily with breakfast. LOSARTAN 100 MG TABLET 30 t* 11 08/19/2024 Route: ORAL Sig: Take 1 tablet by mouth once daily. SPIRONOLACTONE 25 MG TABLET 30 t* 11 08/19/2024 10/15/2024 Route: ORAL Sig: Take 1 tablet by mouth once daily. HYDRALAZINE 50 MG TABLET 120 * 11 08/19/2024 Route: ORAL Sig: Take 1 tablet by mouth four times daily. Hold if blood pressure is less than 110/60 CHOLECALCIFEROL (VITAMIN D3) 25 MCG * 90 c* 3 08/19/2024 11/08/2024 Route: ORAL Sig: Take 1 capsule by mouth once daily. GABAPENTIN 800 MG TABLET 120 * 2 08/19/2024 11/17/2024 Route: ORAL Sig: Take 1 tablet by mouth four times daily for 90 days. TIZANIDINE 4 MG TABLET 90 t* 1 08/19/2024 Route: ORAL Sig: Take 1 tablet by mouth three times a day as needed. OXYCODONE 5 MG TABLET 9 ta* 0 08/19/2024 08/24/2024 Route: ORAL Sig: Take 1 tablet by mouth every 8 hours as needed for pain for up to 3 days. DEXCOM G6 HR COORDINATOR 1 Ea* 0 08/19/2024 Route: Misc Si Each once daily. DEXCOM G6 TRANSMITTER DEVICE 3 Ea* 12 08/19/2024 Route: [facility] [place] Each once daily. Medications Discontinued During This Encounter Prescriptions - nicotine (NICODERM CQ) 21 mg/24 hr (Discontinued) Reported on 05/20/2024 - zoledronic acid (RECLAST) 5 mg/100 mL pgbk PREMIX piggyback (Discontinued) Inject 100 mL intravenously every year. - tiZANidine (ZANAFLEX) 4 mg tablet (Discontinued) Take 4 mg by mouth three times a day as needed. - losartan (COZAAR) 100 mg tablet (Discontinued) Take 1 tablet by mouth once daily. - gabapentin (NEURONTIN) 800 mg tablet (Discontinued) Take 1 tablet by mouth four times daily for 90 days. - hydrALAZINE (APRESOLINE) 50 mg tablet (Discontinued) Take 1 tablet by mouth four times daily. Hold if blood pressure is less than 110/60 - oxyCODONE IR (ROXICODONE) 5 mg immediate release tablet (Discontinued) Take 1 tablet by mouth every 8 hours as needed for pain for up to 3 days. Level of Service: OFFICE/OUTPATIENT ESTABLISHED MOD [facility] 30 MIN [26342] Additional E/M codes: VISIT CPLX INHERENT EANDM ASSOC WITH MED * Follow-up and Disposition History for Encounter Date Provider Department Center 08/19/2024 [id number] GONSALEZ [facility] Encounter Status:Closed by GEORGINA GONSALEZ on 08/19/24 CNPN Observed: 08/19/2024 12:00 AM Status: COMPLETED Source: [facility] Telephone (XOCHITLWS) NIKKIE BUCK ([id number]) 1965 F Date Time Provider Department 08/19/24 GEORGINA GONSALEZ During your visit today, we recorded the following information about you: Samantha Armstrong LPN 08/19/2024 9:20 AM Signed Patient was seen today and is needing zoledronic acid infusion scheduled. Encounter routed to hem/onc PSR to assist patient in scheduling. Natalya Elizabeth 08/20/2024 8:28 AM Signed Spoke with patient to schedule. Gave a few date options. She will call back to schedule. Shyann Monge 08/23/2024 3:55 PM Signed Called patient and scheduled as below Allergies As of Date: 08/19/2024 Noted Allergy Reaction DULOXETINE 06/15/2021 7 - Swelling 14 - Other: See Comments Comments: Other reaction(s): swelling Other reaction(s): Unknown Other reaction(s): swelling NSAIDS (NON-STEROIDAL ANTI-INFLAM*08/15/2020 8 - GI Upset Comments: Other reaction(s): GI Upset Other reaction(s): cramping, GI Upset, Other (See Comments), Upset Stomach Severe stomach pain Other reaction(s): GI Upset PENICILLINS 08/15/2020 2 - Rash 14 - Other: See Comments Comments: Other reaction(s): GI Upset, hives, horrible taste in mouth Other reaction(s): GI Upset, GI Upset, horrible taste in mouth, leaves a bad taste in her mouth., NEEDS FOLLOW-UP Other reaction(s): GI Upset, hives, horrible taste in mouth PREGABALIN 08/15/2020 7 - Swelling 14 - Other: See Comments 16 - Unknown Comments: Other reaction(s): swelling, Swelling Other reaction(s): Swelling, Unknown Other reaction(s): swelling, Swelling AMLODIPINE 06/22/2024 5 - Intolerance Comments: leg swelling at 10 mg CELEBREX (CELECOXIB) 08/09/2024 5 - Intolerance Comments: feet and leg swelling PENICILLIN G 11/11/2021 8 - GI Upset IBUPROFEN 11/11/2021 8 - GI Upset Comments: Vomiting cramping TYLENOL (ACETAMINOPHEN) 10/27/2022 8 - GI Upset Date Reviewed: 08/19/2024 Reviewed by: Samantha Armstrong LPN - Fully Assessed Reason for Visit: Appointment [186] Prescriptions as of 10/05/2024 - Insulin Willow, Disposable, (BD ULTRA-FINE PADMINI PEN NEEDLE) 32 gauge x 5/32" 1 Each three times a day. - oxyCODONE IR (ROXICODONE) 5 mg immediate release tablet Take 1 tablet by mouth every 8 hours as needed for pain for up to 7 days. Patient should start on October 01, 2024. - Blood-Glucose Sensor (DEXCOM G6 SENSOR) jaguar 3 Each every 10 days. - empagliflozin (JARDIANCE) 10 mg tablet Take 1 tablet by mouth daily with breakfast. - losartan (COZAAR) 100 mg tablet Take 1 tablet by mouth once daily. - spironolactone (ALDACTONE) 25 mg tablet Take 1 tablet by mouth once daily. - hydrALAZINE (APRESOLINE) 50 mg tablet Take 1 tablet by mouth four times daily. Hold if blood pressure is less than 110/60 - Cholecalciferol, Vitamin D3, 25 mcg (1,000 unit) cap Take 1 capsule by mouth once daily. - gabapentin (NEURONTIN) 800 mg tablet Take 1 tablet by mouth four times daily for 90 days. - tiZANidine (ZANAFLEX) 4 mg tablet Take 1 tablet by mouth three times a day as needed. - Blood-Glucose Meter,Continuous (DEXCOM G6 HR COORDINATOR) misc 1 Each once daily. - Blood-Glucose Transmitter (DEXCOM G6 TRANSMITTER) jaguar 1 Each once daily. - hydroCHLOROthiazide 25 mg tablet Take 1 tablet by mouth once daily. - insulin glargine 100 unit/mL (3 mL) Inject 24 Units subcutaneously daily at bedtime. - polyethylene glycol 3350 17 gram/dose powder Take 17 g by mouth once daily as needed for constipation. - ondansetron orally disintegrating (ZOFRAN ODT) 8 mg disintegrating tablet Take 1 tablet by mouth every 8 hours as needed for nausea/vomiting. - omeprazole (PRILOSEC) 40 mg capsule Take 1 capsule by mouth two times a day. - blood sugar diagnostic ([facility] VERIO TEST STRIPS) test strip 1 Strip four times daily. Use as instructed - fluticasone-salmeterol HFA (ADVAIR HFA) 230-21 mcg/actuation inhaler Inhale 2 Puffs as instructed two times a day. - loratadine (CLARITIN) 10 mg tablet Take 1 tablet by mouth once daily. - albuterol HFA (PROVENTIL HFA, VENTOLIN HFA) 90 mcg/actuation inhaler Inhale 2 Puffs as instructed every 4 hours as needed for wheezing/shortness of breath. - CPAP/BIPAP/OTHER Type .CPAPSettings into a note to see current settings/supplies/DME information. - insulin lispro (HUMALOG KWIKPEN) 100 unit/mL Inject 8 Units subcutaneously three times a day before meals. Taking as needed Problem List As Of Date 08/19/2024 Noted Resolved Uncontrolled type 2 diabetes mellitus with hype*08/28/2022 Chronic midline low back pain with sciatica [M5*08/28/2022 Chronic obstructive lung disease (HCC) [J44.9] 10/18/2022 11/05/2022 Chronic obstructive pulmonary disease, unspecif*11/30/2021 Hyperlipidemia, unspecified [E78.5] 06/15/2021 Tobacco use [Z72.0] 11/05/[address] scan, kidney [R93.429] 11/05/2022 Dyspepsia [R10.13] 02/21/2023 Epigastric pain [R10.13] 02/21/2023 Right upper quadrant abdominal pain [R10.11] 02/21/2023 Chronic gastritis without bleeding [K29.50] 03/12/2023 Gastric wall thickening [K31.89] 03/12/2023 Primary hypertension [I10] 06/11/2023 Neuropathy [G62.9] 06/11/2023 Back pain with history of spinal surgery [M54.9*06/11/2023 FRANCISCO (obstructive sleep apnea) [G47.33] 06/11/2023 DM gastroparesis (HCC) [E11.43, K31.84] 07/04/2023 Abdominal bloating [R14.0] 10/13/2023 Obesity [E66.9] 10/13/2023 Diagnosed: 10/13/2023 Postlaminectomy syndrome of lumbar region [M96.*10/31/2022 Diagnosed: 10/13/2023 Sciatica [M54.30] 11/18/2022 Diagnosed: 10/13/2023 Fall at home, initial encounter [W19.XXXA, Y92.*11/26/2023 12/04/2023 Nicotine use disorder, F17.2 [F17.200] 11/28/2023 Encounter Status:Closed by SAMANTHA ARMSTRONG on 10/05/24 ALBUMIN/CREATININE RATIO, URINE Collect ed: 08/09/2024 3:14 PM Status: F Source: [place] Comment: Specimen Type : URINE SPECIMEN Ordering Facility: [facility] Address: [address] [place] [address] TYPE CODE TESTS RESULT OUT OF RANGE REFERENCE UNITS LAB 2161-8(LOINC) Creat Ur-mCnc 46.3 20.0-300.0 m g/dL LAB 31375-6(LOINC ) Microalbumin Ur-mCnc 1548.3 mg/L LAB 9318-7(LOINC) Albumin/Creat Ur 3344 High <30 mg/g Result Comment: Adult Male a nd Female Nephrotic Criteria: <30 mg/g is considered normal to mildly increased 30-300 mg/g is considered moderately increased >300 mg/g is considered severely increased KDIGO. (2013). KDIGO 2012 Clinical Practice Guideline for the Evaluation and Management of Chronic Kidney Disease. Official Journal of the International Society of Nephrology, 3(1), 1-150. Performed By: #### UACR #### [facility] CLIA [id number] [address] [place] [address] [place] DEPRECATED HGB A1C BLD Collected: 08/09 11:43 AM Status: F Source: [place] Comment: Specimen Type : BLOOD SPECIMEN Ordering Facility: [facility] Address: [address] [place], [place] [id number] TYPE CODE TESTS RESULT OUT OF RANGE REFERENCE UNITS LAB 4548-4(LOINC) HbA1c MFr Bld 8.9 High 4.3-5.6 % Result Comment: [place] [employer] guidelines indicate that patients with HgbA1c in the range 5.7-6.4% are at increased risk for development of diabetes, and intervention by lifestyle modification may be beneficial. HgbA1c greater or equal to 6.5% is considered diagnostic of diabetes. LAB 79317-9(LOINC) Est. average glucose Bld gHb Est-mCnc 209 mg/dL Result Comment: eAG: (Estima samy average glucose) is a calculated value from HgbA1c and is hospital insurance representative of the average blood glucose level in the last 2-3 month period. Performed By: #### [id number] # ### [facility] CLIA [id number] [address] [place] [address] [place] CNOV Observed: 08/09/2024 11:00 AM Status: COMPLETED Source: [facility] Office Visit (INTMWS) NIKKIE BUCK ([id number]) 1965 F Date Time Provider Department 08/09/24 11:00 AM GEORGINA GONSALEZ INTMWS During your visit today, we recorded the following information about you: Pulse Respiration Blood pressure Weight 71/minute 16/minute 138/80 65.1 kg Georgina Gonsalez APRN.PATIENT SERVICES COORDINATOR 08/09/2024 11:51 AM Signed SUBJECTIVE: Pneumococcal Vaccine(1 of 2 - PCV) Never done Dilated Retinal Exam Never done Diabetic Foot Exam Never done Spirometry Never done Depression Screening Never done Anxiety Screening Never done DTaP,Tdap,Td Vaccine(1 - Tdap) Never done Cervical Cancer Screening Never done Shingrix Vaccine(1 of 2) Never done Mammogram Screening due on 08/20/2023 Urine Albumin:Creatinine Ratio due on 09/16/2023 BP Controlled (<130/80) due on 02/26/2024 Influenza Vaccine(1) Never done Covid-19 Vaccine( season) Never done Colorectal Cancer Screening due on 10/16/2024 MANNY Buck is a 58 year old female.PMH significnat or ACTIVE PROBLEM LIST Uncontrolled Type 2 Diabetes Mellitus With Hyperglycemia (Hcc) Chronic Midline Low Back Pain With Sciatica Chronic Obstructive Pulmonary Disease, Unspecified (Hcc) Hyperlipidemia, Unspecified Tobacco Use Abnormal CT Scan, Kidney Dyspepsia Epigastric Pain Right Upper Quadrant Abdominal Pain Chronic Gastritis Without Bleeding Gastric Wall Thickening Primary Hypertension Neuropathy Back Pain With History of Spinal Surgery Francisco (Obstructive Sleep Apnea) Dm Gastroparesis (Hcc) (Hcc) Abdominal Bloating Obesity Postlaminectomy Syndrome of Lumbar Region Sciatica Nicotine use disorder, F17.2 Presents today for a recheck. At her last visit she noted RUQ discomfort. Resuming PPI was advised. BP suboptimally controlled, her dose of HCTZ was increased. She was referred to make an appointment with Dr. Martinez general surgery in [place]. She was seen by pain management provider and referred to orthopedics for ongoing treatment for the left femur surgery done in November/the recent fall and the recent right hip replacement done in June. Advised to continue activity as tolerated and physical therapy at the direction of orthopedics/PT. Also to continue with the gabapentin, tizanidine and Lidoderm cream Today reports RUQ discomfort: notes PPI helping, less GERD symptoms with this. Notes going to [facility]. Has an appointment next month with PT/OT. HEP. Walking with rollator. She states she has been seeing pain management provider in [place], [facility]. States she has an upcoming appointment and no pain medications currently. [facility] orthopedic provider advised did not want to manage her pain. Has not requested pain medication from them. (See care everywhere notes re: pain medications) She notes chronic left hip pain and chronic abdominal pain. HTN: Currently without report of headache, chest pain, palpitations, dyspnea, peripheral edema, orthopnea, fatigue, and PND. She notes that she has quit smoking. Review of outside medications shows some delays in getting refills of his blood pressure medications. At April visit in internal medicine amlodipine was discontinued due to swelling in the leg and resumed on losartan. Continues to smoke, contemplating stopping. Notes anxiety but does not want to take medication or see counselor for this. Last 14 Encounter BP Readings: Date: BP: 06/21/2024 157/99 05/20/2024 168/94 05/05/2024 128/70 04/15/2024 128/75 03/29/2024 169/90 02/27/2024 120/72 01/29/2024 136/67 01/29/2024 171/85 11/27/2023 165/83 11/26/2023 155/71 10/23/2023 167/82 10/16/2023 90/52 10/16/2023 135/57 10/13/2023 150/80 Patient's last HgA1C Hemoglobin A1C (%) Date Value 04/22/2024 7.9 08/05/2023 9.4 She notes abdominal pain continues unchanged.She has stress test scheduled. Notes RUQ/epigastric discomfort. Taking PPI only intermittently as needed. She reports a sensation of something "folding" in her abdomen recently with decersed numbness in the abdomen after this. No nausea vomiting diarrhea constipation BRBPR black or tarry stools is reported. Notes BM every other day, usual pattern. She notes following with [facility] orthopedic provider, leg still not healed and wearing a brace. Imaging completed 05/2024, see scanned documents. She notes anxiety over her medical problems. She is feeling anxious most daily. Notes trouble with focus and some trouble sleeping. Interested in medication for this.No voiced SI, HI. Review of Systems Constitutional: Negative. Respiratory: Negative. Cardiovascular: Negative. Gastrointestinal: Positive for abdominal pain. Musculoskeletal: Positive for arthralgias. Neurological: Negative for headaches. Objective BP 138/80 Pulse 71 Resp 16 Wt 65.1 kg (143 lb 8.3 oz) BMI 28.03 kg/m? Physical Exam Vitals and nursing note reviewed. Constitutional: Appearance: Normal appearance. HENT: Head: Normocephalic and atraumatic. Eyes: Conjunctiva/sclera: Conjunctivae normal. Neck: Thyroid: No thyromegaly. Vascular: No JVD. Cardiovascular: Rate and Rhythm: Normal rate and regular rhythm. Heart sounds: Normal heart sounds. Pulmonary: Effort: Pulmonary effort is normal. Breath sounds: Normal breath sounds. Abdominal: General: Bowel sounds are normal. Palpations: Abdomen is soft. Musculoskeletal: Right lower leg: No edema. Left lower leg: No edema. Comments: brace left leg Skin: General: Skin is warm and dry. Neurological: General: No focal deficit present. Mental Status: She is alert and oriented to person, place, and time. ALLERGIES Allergen Reactions Duloxetine Swelling, Other: See Comments Other reaction(s): swelling Other reaction(s): Unknown Other reaction(s): swelling Nsaids (Non-Steroid* GI Upset Other reaction(s): GI Upset Other reaction(s): cramping, GI Upset, Other (See Comments), Upset Stomach Severe stomach pain Other reaction(s): GI Upset Penicillins Rash, Other: See Comments Other reaction(s): GI Upset, hives, horrible taste in mouth Other reaction(s): GI Upset, GI Upset, horrible taste in mouth, leaves a bad taste in her mouth., NEEDS FOLLOW-UP Other reaction(s): GI Upset, hives, horrible taste in mouth Pregabalin Swelling, Other: See Comments, Unknown Other reaction(s): swelling, Swelling Other reaction(s): Swelling, Unknown Other reaction(s): swelling, Swelling Amlodipine Intolerance leg swelling at 10 mg Celebrex [Celecoxib] Intolerance feet and leg swelling Penicillin G GI Upset Ibuprofen GI Upset Vomiting cramping Tylenol [Acetaminop* GI Upset Medications hydroCHLOROthiazide 25 mg tablet Take 1 tablet by mouth once daily. hydrALAZINE (APRESOLINE) 50 mg tablet Take 1 tablet by mouth four times daily. Hold if blood pressure is less than 110/60 gabapentin (NEURONTIN) 800 mg tablet Take 1 tablet by mouth four times daily for 90 days. insulin glargine 100 unit/mL (3 mL) Inject 24 Units subcutaneously daily at bedtime. polyethylene glycol 3350 17 gram/dose powder Take 17 g by mouth once daily as needed for constipation. losartan (COZAAR) 100 mg tablet Take 1 tablet by mouth once daily. ondansetron orally disintegrating (ZOFRAN ODT) 8 mg disintegrating tablet Take 1 tablet by mouth every 8 hours as needed for nausea/vomiting. omeprazole (PRILOSEC) 40 mg capsule Take 1 capsule by mouth two times a day. blood sugar diagnostic ([facility] VERIO TEST STRIPS) test strip 1 Strip four times daily. Use as instructed Insulin Willow, Disposable, (BD ULTRA-FINE PADMINI PEN NEEDLE) 32 gauge x 5/32" 1 Each three times a day. fluticasone-salmeterol HFA (ADVAIR HFA) 230-21 mcg/actuation inhaler Inhale 2 Puffs as instructed two times a day. loratadine (CLARITIN) 10 mg tablet Take 1 tablet by mouth once daily. tiZANidine (ZANAFLEX) 4 mg tablet Take 4 mg by mouth three times a day as needed. albuterol HFA (PROVENTIL HFA, VENTOLIN HFA) 90 mcg/actuation inhaler Inhale 2 Puffs as instructed every 4 hours as needed for wheezing/shortness of breath. CPAP/BIPAP/OTHER Type .CPAPSettings into a note to see current settings/supplies/DME information. zoledronic acid (RECLAST) 5 mg/100 mL pgbk PREMIX piggyback Inject 100 mL intravenously every year. insulin lispro (HUMALOG KWIKPEN) 100 unit/mL Inject 8 Units subcutaneously three times a day before meals. Taking as needed oxyCODONE IR (ROXICODONE) 5 mg immediate release tablet Take 1 tablet by mouth every 8 hours as needed for pain for up to 3 days. nicotine (NICODERM CQ) 21 mg/24 hr Apply 1 Patch as directed once daily. (Patient not taking: Reported on 05/20/2024) PAST MEDICAL HISTORY Diagnosis Date Abdominal bloating 10/13/2023 Arthritis COPD (chronic obstructive pulmonary disease) (HCC) Diabetes (HCC) Hypertension Median arcuate ligament syndrome (HCC) Sleep apnea Social History Tobacco Use Smoking status: Every Day Current packs/day: 1.00 Types: Cigarettes Smokeless tobacco: Never Tobacco comments: 3/4's of a pack daily Vaping Use Vaping status: Never Used Substance Use Topics Alcohol use: Never Drug use: Never ASSESSMENT/PLAN: 1. Primary hypertension - ICD9: 401.9, ICD10: I10 (primary diagnosis) Improved control, Continue current treatment unchanged - Encourage sodium restriction, DASH or Mediterranean diet - Recommend regular aerobic exercise - HYDROCHLOROTHIAZIDE 25 MG TABLET 2. . Right upper quadrant abdominal pain - ICD9: 789.01, ICD10: R10.11 Continue with PPI daily as it is helping with GERD symptoms and abdominal pain. 3. Tobacco use - ICD9: 305.1, ICD10: Z72.0 She has resumed smoking, contemplating quitting. 4. Uncontrolled type 2 diabetes mellitus with hyperglycemia (HCC) - ICD9: 250.02, ICD10: E11.65 Improved control Check lab today - Continue current medications - HEMOGLOBIN A1C 5. S/p left hip fracture - ICD9: V15.51, ICD10: Z87.81 She reports that orthopedic provider did not want to treat pain after "a couple weeks", has not asked ortho for additional pain medication. 3 day supply given, no additional. Can follow up with pain management or orthopedics if any needs regarding this going forward. - OXYCODONE 5 MG TABLET 6. Encounter for immunization - ICD9: V03.89, ICD10: Z23 - PNEUMOCOCCAL VACCINE, 20 VALENT (PREVNAR 20) - TDAP VACCINE, AGE 7+ YR (ADACEL, BOOSTRIX) - ZOSTER VACCINE, RECOMBINANT (SHINGRIX) - ZOSTER VACCINE, RECOMBINANT (SHINGRIX) - INFLUENZA VACCINE, AGE 6MO-64YR, TRIVALENT (AFLURIA, FLULAVAL, FLUVIRIN, FLUZONE) - PFIZER-[employer] COVID-19 VACCINE AGE 12+ YR (COMIRNATY) 7. Screening for diabetic retinopathy - ICD9: V80.2, ICD10: Z13.5 - CONSULT TO OPHTHALMOLOGY 8. Chronic obstructive pulmonary disease, unspecified (HCC) - ICD9: 496, ICD10: J44.9 - SPIROMETRY - BASELINE AND POST DILATOR 9. Screening for depression - ICD9: V79.0, ICD10: Z13.31 - DEPRESSION SCREENING 10. Encounter for screening examination for other mental health and behavioral disorders - ICD9: V79.8, ICD10: Z13.39 - ANXIETY SCREENING - positive, declines treatment Labs today 1 mo recheck Georgina Gonsalez APRN.PATIENT SERVICES COORDINATOR 6 mo recheck Rissa Hanks MD She needs a stress test completed to be scheduled for surgery per Dr Martinez. She has a surgery appt scheduled Georgina Gonsalez APRN.PATIENT SERVICES COORDINATOR Medical Decision Making: Problems: Moderate: 1+ chronic illnesses with change Risk: Moderate: Drug management Medical Decision Making Level: 4 - Moderate Referring Provider: SELF [200] Allergies As of Date: 08/09/2024 Noted Allergy Reaction DULOXETINE 06/15/2021 7 - Swelling 14 - Other: See Comments Comments: Other reaction(s): swelling Other reaction(s): Unknown Other reaction(s): swelling NSAIDS (NON-STEROIDAL ANTI-INFLAM*08/15/2020 8 - GI Upset Comments: Other reaction(s): GI Upset Other reaction(s): cramping, GI Upset, Other (See Comments), Upset Stomach Severe stomach pain Other reaction(s): GI Upset PENICILLINS 08/15/2020 2 - Rash 14 - Other: See Comments Comments: Other reaction(s): GI Upset, hives, horrible taste in mouth Other reaction(s): GI Upset, GI Upset, horrible taste in mouth, leaves a bad taste in her mouth., NEEDS FOLLOW-UP Other reaction(s): GI Upset, hives, horrible taste in mouth PREGABALIN 08/15/2020 7 - Swelling 14 - Other: See Comments 16 - Unknown Comments: Other reaction(s): swelling, Swelling Other reaction(s): Swelling, Unknown Other reaction(s): swelling, Swelling AMLODIPINE 06/22/2024 5 - Intolerance Comments: leg swelling at 10 mg CELEBREX (CELECOXIB) 08/09/2024 5 - Intolerance Comments: feet and leg swelling PENICILLIN G 11/11/2021 8 - GI Upset IBUPROFEN 11/11/2021 8 - GI Upset Comments: Vomiting cramping TYLENOL (ACETAMINOPHEN) 10/27/2022 8 - GI Upset Date Reviewed: 08/09/2024 Reviewed by: Samantha Armstrong LPN - Fully Assessed Reason for Visit: 2 month f/u [Other] Primary Visit Diagnosis:Primary hypertension [I10] Other Visit Diagnoses:Right upper quadrant abdominal pain [R10.11] Tobacco use [Z72.0] Uncontrolled type 2 diabetes mellitus with hyperglycemia (HCC) [E11.65] S/p left hip fracture [Z87.81] Encounter for immunization [Z23] Screening for diabetic retinopathy [Z13.5] Chronic obstructive pulmonary disease, unspecified (HCC) [J44.9] Screening for depression [Z13.31] Encounter for screening examination for other mental health and behavioral disorders [Z13.39] Screening for cervical cancer [Z12.4] Order(s):ALBUMIN/CREATININE RATIO, URINE [SQUACR] Order #: [id number] FUTURE SPIROMETRY - BASELINE AND POST DILATOR [] Order #: [id number]: 1 FUTURE DEPRESSION SCREENING [] Order #: [id number]: 1 ANXIETY SCREENING [] Order #: [id number]: 1 oxyCODONE IR (ROXICODONE) 5 mg immediate release tabletTake 1 tablet by mouth every 8 hours as needed for pain for up to 3 days.Disp: 9 tabletRfl: 0 HEMOGLOBIN A1C [CHBEX6A] Order #: [id number] FUTURE Prescriptions as of 08/09/2024 - oxyCODONE IR (ROXICODONE) 5 mg immediate release tablet Take 1 tablet by mouth every 8 hours as needed for pain for up to 3 days. - hydroCHLOROthiazide 25 mg tablet Take 1 tablet by mouth once daily. - hydrALAZINE (APRESOLINE) 50 mg tablet Take 1 tablet by mouth four times daily. Hold if blood pressure is less than 110/60 - gabapentin (NEURONTIN) 800 mg tablet Take 1 tablet by mouth four times daily for 90 days. - insulin glargine 100 unit/mL (3 mL) Inject 24 Units subcutaneously daily at bedtime. - polyethylene glycol 3350 17 gram/dose powder Take 17 g by mouth once daily as needed for constipation. - losartan (COZAAR) 100 mg tablet Take 1 tablet by mouth once daily. - ondansetron orally disintegrating (ZOFRAN ODT) 8 mg disintegrating tablet Take 1 tablet by mouth every 8 hours as needed for nausea/vomiting. - nicotine (NICODERM CQ) 21 mg/24 hr Apply 1 Patch as directed once daily. - omeprazole (PRILOSEC) 40 mg capsule Take 1 capsule by mouth two times a day. - blood sugar diagnostic ([facility] VERIO TEST STRIPS) test strip 1 Strip four times daily. Use as instructed - Insulin Willow, Disposable, (BD ULTRA-FINE PADMINI PEN NEEDLE) 32 gauge x 5/32" 1 Each three times a day. - fluticasone-salmeterol HFA (ADVAIR HFA) 230-21 mcg/actuation inhaler Inhale 2 Puffs as instructed two times a day. - loratadine (CLARITIN) 10 mg tablet Take 1 tablet by mouth once daily. - tiZANidine (ZANAFLEX) 4 mg tablet Take 4 mg by mouth three times a day as needed. - albuterol HFA (PROVENTIL HFA, VENTOLIN HFA) 90 mcg/actuation inhaler Inhale 2 Puffs as instructed every 4 hours as needed for wheezing/shortness of breath. - CPAP/BIPAP/OTHER Type .CPAPSettings into a note to see current settings/supplies/DME information. - zoledronic acid (RECLAST) 5 mg/100 mL pgbk PREMIX piggyback Inject 100 mL intravenously every year. - insulin lispro (HUMALOG KWIKPEN) 100 unit/mL Inject 8 Units subcutaneously three times a day before meals. Taking as needed Problem List As Of Date 08/09/2024 Noted Resolved Uncontrolled type 2 diabetes mellitus with hype*08/28/2022 Chronic midline low back pain with sciatica [M5*08/28/2022 Chronic obstructive lung disease (HCC) [J44.9] 10/18/2022 11/05/2022 Chronic obstructive pulmonary disease, unspecif*11/30/2021 Hyperlipidemia, unspecified [E78.5] 06/15/2021 Tobacco use [Z72.0] 11/05/[address] scan, kidney [R93.429] 11/05/2022 Dyspepsia [R10.13] 02/21/2023 Epigastric pain [R10.13] 02/21/2023 Right upper quadrant abdominal pain [R10.11] 02/21/2023 Chronic gastritis without bleeding [K29.50] 03/12/2023 Gastric wall thickening [K31.89] 03/12/2023 Primary hypertension [I10] 06/11/2023 Neuropathy [G62.9] 06/11/2023 Back pain with history of spinal surgery [M54.9*06/11/2023 FRANCISCO (obstructive sleep apnea) [G47.33] 06/11/2023 DM gastroparesis (HCC) [E11.43, K31.84] 07/04/2023 Abdominal bloating [R14.0] 10/13/2023 Obesity [E66.9] 10/13/2023 Diagnosed: 10/13/2023 Postlaminectomy syndrome of lumbar region [M96.*10/31/2022 Diagnosed: 10/13/2023 Sciatica [M54.30] 11/18/2022 Diagnosed: 10/13/2023 Fall at home, initial encounter [W19.XXXA, Y92.*11/26/2023 12/04/2023 Nicotine use disorder, F17.2 [F17.200] 11/28/2023 Prescriptions ordered this encounter Disp Refills Start End OXYCODONE 5 MG TABLET 9 ta* 0 08/09/2024 08/12/2024 Route: ORAL Sig: Take 1 tablet by mouth every 8 hours as needed for pain for up to 3 days. Level of Service: OFFICE/OUTPATIENT ESTABLISHED MOD MDM 30 MIN [90306] Additional E/M codes: VISIT CPLX INHERENT EANDM ASSOC WITH MED * Encounter Status:Closed by GEORGINA GONSALEZ on 08/09/24 PROGRESS Observed: 08/09/2024 10:58 AM Status: COMPLETED Source: [facility] HNO ID: [id number] Author: GEORGINA GONSALEZ APRN.PATIENT SERVICES COORDINATOR Service: ? Author Type: Nurse Specialist Type: Progress Notes Filed: 08/09/2024 11:51 Note Text: SUBJECTIVE: Pneumococcal Vaccine(1 of 2 - PCV) Never done Dilated Retinal Exam Never done Diabetic Foot Exam Never done Spirometry Never done Depression Screening Never done Anxiety Screening Never done DTaP,Tdap,Td Vaccine(1 - Tdap) Never done Cervical Cancer Screening Never done Shingrix Vaccine(1 of 2) Never done Mammogram Screening due on 08/20/2023 Urine Albumin:Creatinine Ratio due on 09/16/2023 BP Controlled (<130/80) due on 02/26/2024 Influenza Vaccine(1) Never done Covid-19 Vaccine( season) Never done Colorectal Cancer Screening due on 10/16/2024 MANNY Buck is a 58 year old female.PMH significnat or ACTIVE PROBLEM LIST Uncontrolled Type 2 Diabetes Mellitus With Hyperglycemia (Hcc) Chronic Midline Low Back Pain With Sciatica Chronic Obstructive Pulmonary Disease, Unspecified (Hcc) Hyperlipidemia, Unspecified Tobacco Use Abnormal CT Scan, Kidney Dyspepsia Epigastric Pain Right Upper Quadrant Abdominal Pain Chronic Gastritis Without Bleeding Gastric Wall Thickening Primary Hypertension Neuropathy Back Pain With History of Spinal Surgery Francisco (Obstructive Sleep Apnea) Dm Gastroparesis (Hcc) (Hcc) Abdominal Bloating Obesity Postlaminectomy Syndrome of Lumbar Region Sciatica Nicotine use disorder, F17.2 Presents today for a recheck. At her last visit she noted RUQ discomfort. Resuming PPI was advised. BP suboptimally controlled, her dose of HCTZ was increased. She was referred to make an appointment with Dr. Martinez general surgery in [place]. She was seen by pain management provider and referred to orthopedics for ongoing treatment for the left femur surgery done in November/the recent fall and the recent right hip replacement done in June. Advised to continue activity as tolerated and physical therapy at the direction of orthopedics/PT. Also to continue with the gabapentin, tizanidine and Lidoderm cream Today reports RUQ discomfort: notes PPI helping, less GERD symptoms with this. Notes going to [facility]. Has an appointment next month with PT/OT. HEP. Walking with rollator. She states she has been seeing pain management provider in [place], [facility]. States she has an upcoming appointment and no pain medications currently. [facility] [facility] orthopedic provider advised did not want to manage her pain. Has not requested pain medication from them. (See care everywhere notes re: pain medications) She notes chronic left hip pain and chronic abdominal pain. HTN: Currently without report of headache, chest pain, palpitations, dyspnea, peripheral edema, orthopnea, fatigue, and PND. She notes that she has quit smoking. Review of outside medications shows some delays in getting refills of his blood pressure medications. At April visit in internal medicine amlodipine was discontinued due to swelling in the leg and resumed on losartan. Continues to smoke, contemplating stopping. Notes anxiety but does not want to take medication or see counselor for this. Last 14 Encounter BP Readings: Date: BP: 06/21/2024 157/99 05/20/2024 168/94 05/05/2024 128/70 04/15/2024 128/75 03/29/2024 169/90 02/27/2024 120/72 01/29/2024 136/67 01/29/2024 171/85 11/27/2023 165/83 11/26/2023 155/71 10/23/2023 167/82 10/16/2023 90/52 10/16/2023 135/57 10/13/2023 150/80 Patient's last HgA1C Hemoglobin A1C (%) Date Value 04/22/2024 7.9 08/05/2023 9.4 She notes abdominal pain continues unchanged.She has stress test scheduled. Notes RUQ/epigastric discomfort. Taking PPI only intermittently as needed. She reports a sensation of something "folding" in her abdomen recently with decersed numbness in the abdomen after this. No nausea vomiting diarrhea constipation BRBPR black or tarry stools is reported. Notes BM every other day, usual pattern. She notes following with [facility] orthopedic provider, leg still not healed and wearing a brace. Imaging completed 05/2024, see scanned documents. She notes anxiety over her medical problems. She is feeling anxious most daily. Notes trouble with focus and some trouble sleeping. Interested in medication for this.No voiced SI, HI. Review of Systems Constitutional: Negative. Respiratory: Negative. Cardiovascular: Negative. Gastrointestinal: Positive for abdominal pain. Musculoskeletal: Positive for arthralgias. Neurological: Negative for headaches. Objective BP 138/80 Pulse 71 Resp 16 Wt 65.1 kg (143 lb 8.3 oz) BMI 28.03 kg/m? Physical Exam Vitals and nursing note reviewed. Constitutional: Appearance: Normal appearance. HENT: Head: Normocephalic and atraumatic. Eyes: Conjunctiva/sclera: Conjunctivae normal. Neck: Thyroid: No thyromegaly. Vascular: No JVD. Cardiovascular: Rate and Rhythm: Normal rate and regular rhythm. Heart sounds: Normal heart sounds. Pulmonary: Effort: Pulmonary effort is normal. Breath sounds: Normal breath sounds. Abdominal: General: Bowel sounds are normal. Palpations: Abdomen is soft. Musculoskeletal: Right lower leg: No edema. Left lower leg: No edema. Comments: brace left leg Skin: General: Skin is warm and dry. Neurological: General: No focal deficit present. Mental Status: She is alert and oriented to person, place, and time. ALLERGIES Allergen Reactions Duloxetine Swelling, Other: See Comments Other reaction(s): swelling Other reaction(s): Unknown Other reaction(s): swelling Nsaids (Non-Steroid* GI Upset Other reaction(s): GI Upset Other reaction(s): cramping, GI Upset, Other (See Comments), Upset Stomach Severe stomach pain Other reaction(s): GI Upset Penicillins Rash, Other: See Comments Other reaction(s): GI Upset, hives, horrible taste in mouth Other reaction(s): GI Upset, GI Upset, horrible taste in mouth, leaves a bad taste in her mouth., NEEDS FOLLOW-UP Other reaction(s): GI Upset, hives, horrible taste in mouth Pregabalin Swelling, Other: See Comments, Unknown Other reaction(s): swelling, Swelling Other reaction(s): Swelling, Unknown Other reaction(s): swelling, Swelling Amlodipine Intolerance leg swelling at 10 mg Celebrex [Celecoxib] Intolerance feet and leg swelling Penicillin G GI Upset Ibuprofen GI Upset Vomiting cramping Tylenol [Acetaminop* GI Upset Medications hydroCHLOROthiazide 25 mg tablet Take 1 tablet by mouth once daily. hydrALAZINE (APRESOLINE) 50 mg tablet Take 1 tablet by mouth four times daily. Hold if blood pressure is less than 110/60 gabapentin (NEURONTIN) 800 mg tablet Take 1 tablet by mouth four times daily for 90 days. insulin glargine 100 unit/mL (3 mL) Inject 24 Units subcutaneously daily at bedtime. polyethylene glycol 3350 17 gram/dose powder Take 17 g by mouth once daily as needed for constipation. losartan (COZAAR) 100 mg tablet Take 1 tablet by mouth once daily. ondansetron orally disintegrating (ZOFRAN ODT) 8 mg disintegrating tablet Take 1 tablet by mouth every 8 hours as needed for nausea/vomiting. omeprazole (PRILOSEC) 40 mg capsule Take 1 capsule by mouth two times a day. blood sugar diagnostic ([employer]UCH VERIO TEST STRIPS) test strip 1 Strip four times daily. Use as instructed Insulin Willow, Disposable, (BD ULTRA-FINE PADMINI PEN NEEDLE) 32 gauge x 5/32" 1 Each three times a day. fluticasone-salmeterol HFA (ADVAIR HFA) 230-21 mcg/actuation inhaler Inhale 2 Puffs as instructed two times a day. loratadine (CLARITIN) 10 mg tablet Take 1 tablet by mouth once daily. tiZANidine (ZANAFLEX) 4 mg tablet Take 4 mg by mouth three times a day as needed. albuterol HFA (PROVENTIL HFA, VENTOLIN HFA) 90 mcg/actuation inhaler Inhale 2 Puffs as instructed every 4 hours as needed for wheezing/shortness of breath. CPAP/BIPAP/OTHER Type .CPAPSettings into a note to see current settings/supplies/DME information. zoledronic acid (RECLAST) 5 mg/100 mL pgbk PREMIX piggyback Inject 100 mL intravenously every year. insulin lispro (HUMALOG KWIKPEN) 100 unit/mL Inject 8 Units subcutaneously three times a day before meals. Taking as needed oxyCODONE IR (ROXICODONE) 5 mg immediate release tablet Take 1 tablet by mouth every 8 hours as needed for pain for up to 3 days. nicotine (NICODERM CQ) 21 mg/24 hr Apply 1 Patch as directed once daily. (Patient not taking: Reported on 05/20/2024) PAST MEDICAL HISTORY Diagnosis Date Abdominal bloating 10/13/2023 Arthritis COPD (chronic obstructive pulmonary disease) (HCC) Diabetes (HCC) Hypertension Median arcuate ligament syndrome (HCC) Sleep apnea Social History Tobacco Use Smoking status: Every Day Current packs/day: 1.00 Types: Cigarettes Smokeless tobacco: Never Tobacco comments: 3/4's of a pack daily Vaping Use Vaping status: Never Used Substance Use Topics Alcohol use: Never Drug use: Never ASSESSMENT/PLAN: 1. Primary hypertension - ICD9: 401.9, ICD10: I10 (primary diagnosis) Improved control, Continue current treatment unchanged - Encourage sodium restriction, DASH or Mediterranean diet - Recommend regular aerobic exercise - HYDROCHLOROTHIAZIDE 25 MG TABLET 2. . Right upper quadrant abdominal pain - ICD9: 789.01, ICD10: R10.11 Continue with PPI daily as it is helping with GERD symptoms and abdominal pain. 3. Tobacco use - ICD9: 305.1, ICD10: Z72.0 She has resumed smoking, contemplating quitting. 4. Uncontrolled type 2 diabetes mellitus with hyperglycemia ([facility]) - ICD9: 250.02, ICD10: E11.65 Improved control Check lab today - Continue current medications - HEMOGLOBIN A1C 5. S/p left hip fracture - ICD9: V15.51, ICD10: Z87.81 She reports that orthopedic provider did not want to treat pain after "a couple weeks", has not asked ortho for additional pain medication. 3 day supply given, no additional. Can follow up with pain management or orthopedics if any needs regarding this going forward. - OXYCODONE 5 MG TABLET 6. Encounter for immunization - ICD9: V03.89, ICD10: Z23 - PNEUMOCOCCAL VACCINE, 20 VALENT (PREVNAR 20) - TDAP VACCINE, AGE 7+ YR (ADACEL, BOOSTRIX) - ZOSTER VACCINE, RECOMBINANT (SHINGRIX) - ZOSTER VACCINE, RECOMBINANT (SHINGRIX) - INFLUENZA VACCINE, AGE 6MO-64YR, TRIVALENT (AFLURIA, FLULAVAL, FLUVIRIN, FLUZONE) - PFIZER-BIONTECH COVID-19 VACCINE AGE 12+ YR (COMIRNATY) 7. Screening for diabetic retinopathy - ICD9: V80.2, ICD10: Z13.5 - CONSULT TO OPHTHALMOLOGY 8. Chronic obstructive pulmonary disease, unspecified (HCC) - ICD9: 496, ICD10: J44.9 - SPIROMETRY - BASELINE AND POST DILATOR 9. Screening for depression - ICD9: V79.0, ICD10: Z13.31 - DEPRESSION SCREENING 10. Encounter for screening examination for other mental health and behavioral disorders - ICD9: V79.8, ICD10: Z13.39 - ANXIETY SCREENING - positive, declines treatment Labs today 1 mo recheck Georgina Gonsalez APRN.PATIENT SERVICES COORDINATOR 6 mo recheck Rissa Hanks MD She needs a stress test completed to be scheduled for surgery per Dr Martinez. She has a surgery appt scheduled Georgina Gonsalez APRN.PATIENT SERVICES COORDINATOR Medical Decision Making: Problems: Moderate: 1+ chronic illnesses with change Risk: Moderate: Drug management Medical Decision Making Level: 4 - Moderate CNOV Observed: 07/29/2024 8:00 AM Status: COMPLETED Source: [facility] Office Visit (DHAVAL) NIKKIE BUCK Rosalino ([id number]) 1965 F Date Time Provider Department 07/29/24 8:00 AM ROB MART During your visit today, we recorded the following information about you: Pulse Respiration Blood pressure 83/minute 16/minute 168/93 Rob Mart PA-C 07/29/2024 8:25 AM Signed This note was created using AirXPriter. Subjective Nikkie Buck is a 58 year old female. The patient primarily being seen for left knee and right hip pain Patient was last seen on: 03/29/24 At that time, the treatment plan was: see notes Current Meds: none Efficacy: Side effects: TENS unit: How often used: Benefit: Physical Therapy: PT/OT in [place] Last UDS: Last injection: none OARRS reviewed At the present time, the patient reports benefit with her present analgesic therapy from the orthopedic surgeon. She denies any adverse effects. She is not currently on any medications from our office. Since her previous visit, she had a total right hip replacement done on 06/25/24 at [facility] after falling and fracturing her right femur. She had admitted to the ER doc that she had been drinking that evening and fell and then couldn't get up. While she was in the hospital, the staff had to use Narcan on her on 07/01/24. The nurse found her bottle of percocet 7.5/325 with only 58 pills left from a total of 120 filled on 06/26/24. She had been using these in addition to the medications she was receiving from the hospital. At that point, we informed the patient that we would be unable to continue to prescribe any further narcotic pain medications for her and suggested she seek treatment at [facility] or [facility]. The patient denies this. She states that she only used two pills from her bottle and states the nurse took a full bottle from her. The pain is worse in the left femur. She states that she has two fractures in the left femur. She sees ortho again on 08/12/24 for further evaluation. 07/26/2024 07/27/2024 INTAKE PAIN ASSESSMENT Are you having pain associated with your visit today? Yes, Provider notified Yes, Provider notified Pain Level 8 9 Pain Location Hip-Right Knee-Left Description Sharp;Stabbing Sharp;Stabbing;Other: See comment Duration Amount of Time 24 24 Duration Units Days Years Frequency Continuous Intervention/Comfort measure Medication;Reposition;Cold;Heat Comments I cant sleep most nights HPI PAST MEDICAL HISTORY Diagnosis Date Abdominal bloating 10/13/2023 Arthritis COPD (chronic obstructive pulmonary disease) (HCC) Diabetes (HCC) Hypertension Median arcuate ligament syndrome (HCC) Sleep apnea PAST SURGICAL HISTORY Procedure Laterality Date ANKLE SURGERY HX Left BACK SURGERY HX Bilateral DELIVERY ONLY EGD W/O BRSH SPEC VARICIES INJ 02/21/2023 GI TRANSIT AND PRES SARAH WIRELESS CAPSULE W/INTERP 09/12/[address] Vega REVISE MEDIAN N/CARPAL TUNNEL SURG Bilateral TOTAL HIP REPLACEMENT Right VAGINAL HYSTERECTOMY Social History Tobacco Use Smoking status: Every Day Current packs/day: 1.00 Types: Cigarettes Smokeless tobacco: Never Tobacco comments: 3/4's of a pack daily Vaping Use Vaping status: Never Used Substance Use Topics Alcohol use: Never Drug use: Never Review of Systems Constitutional: Negative for fever and unexpected weight change. Musculoskeletal: + back pain, joint pain/swelling, muscle cramps, arthritis, stiffness. Objective BP 168/93 (BP Site: Left Arm, BP Position: Sitting) Pulse 83 Resp 16 SpO2 98% Physical Exam Vitals and nursing note reviewed. Constitutional: Appearance: Normal appearance. She is well-developed and well-groomed. She is obese. HENT: Head: Normocephalic and atraumatic. Right Ear: Hearing normal. Left Ear: Hearing normal. Eyes: Conjunctiva/sclera: Conjunctivae normal. Musculoskeletal: Comments: She has an antalgic gait and is using a walker for assistance. There is tenderness noted in the lumbar region with spasms and trigger points noted in the paraspinal and latissimus dorsi muscles. She has a brace on the LLE from her distal femur to her distal calf. Strength is 4/5 in the BLE due to pain. Sensation is intact to light touch throughout. SLR is negative but causes pain in her hips. She has tenderness noted over the hips bilaterally. There is tenderness noted over the left femur proximally and distally. Neurological: Mental Status: She is alert and oriented to person, place, and time. Psychiatric: Attention and Perception: Attention and perception normal. Mood and Affect: Mood and affect normal. Speech: Speech normal. Behavior: Behavior normal. Behavior is cooperative. Thought Content: Thought content normal. Judgment: Judgment normal. Assessment and Plan ASSESSMENT/PLAN: 1. Chronic pain syndrome - ICD9: 338.4, ICD10: G89.4 (primary diagnosis) 2. Closed fracture of shaft of left femur, unspecified fracture morphology, initial encounter (HCC) - ICD9: 821.01, ICD10: S72.302A 3. Left leg pain - ICD9: 729.5, ICD10: M79.605 PLAN: The OARRS report has been reviewed and is consistent with the patients medical history and medication intake. She had multiple scripts noted for post op meds. The patient's most recent drug screen has been reviewed and is appropriate and consistent with current therapy. Continue to FU with ortho regarding the left femur surgery done in November/the recent fall and the recent right hip replacement done in June. Continue activity as tolerated and physical therapy at the direction of orthopedics/PT Continue with the gabapentin, tizanidine and Lidoderm cream Follow-up in the office in 3 months as needed. Discuss your blood pressure with your family doctor - BP 168/93. I explained to the patient that we will not be able to prescribe any narcotic pain medications as she is now no narcotics. This was already discussed with the patient previously by the phone nurse. RENZO Odom, Rob Clifford PA-C 07/29/2024 8:23 AM Addendum The OARRS report has been reviewed and is consistent with the patients medical history and medication intake. She had multiple scripts noted for post op meds. The patient's most recent drug screen has been reviewed and is appropriate and consistent with current therapy. Continue to FU with ortho regarding the left femur surgery done in November/the recent fall and the recent right hip replacement done in June. Continue activity as tolerated and physical therapy at the direction of orthopedics/PT Continue with the gabapentin, tizanidine and Lidoderm cream Follow-up in the office in 3 months as needed. Discuss your blood pressure with your family doctor - BP 168/93. I explained to the patient that we will not be able to prescribe any narcotic pain medications as she is now no narcotics. This was already discussed with the patient previously by the phone nurse. Supervising Physician - Dr. Navi Blackman MD Allergies As of Date: 07/29/2024 Noted Allergy Reaction DULOXETINE 06/15/2021 7 - Swelling 14 - Other: See Comments Comments: Other reaction(s): swelling Other reaction(s): Unknown Other reaction(s): swelling NSAIDS (NON-STEROIDAL ANTI-INFLAM*08/15/2020 8 - GI Upset Comments: Other reaction(s): GI Upset Other reaction(s): cramping, GI Upset, Other (See Comments), Upset Stomach Severe stomach pain Other reaction(s): GI Upset PENICILLINS 08/15/2020 2 - Rash 14 - Other: See Comments Comments: Other reaction(s): GI Upset, hives, horrible taste in mouth Other reaction(s): GI Upset, GI Upset, horrible taste in mouth, leaves a bad taste in her mouth., NEEDS FOLLOW-UP Other reaction(s): GI Upset, hives, horrible taste in mouth PREGABALIN 08/15/2020 7 - Swelling 14 - Other: See Comments 16 - Unknown Comments: Other reaction(s): swelling, Swelling Other reaction(s): Swelling, Unknown Other reaction(s): swelling, Swelling AMLODIPINE 06/22/2024 5 - Intolerance Comments: leg swelling at 10 mg PENICILLIN G 11/11/2021 8 - GI Upset IBUPROFEN 11/11/2021 8 - GI Upset Comments: Vomiting cramping TYLENOL (ACETAMINOPHEN) 10/27/2022 8 - GI Upset Date Reviewed: 07/29/2024 Reviewed by: Rob Mart PA-C - Fully Assessed Reason for Visit: Pain [78] Cmt: Left leg pain / right hip pain Primary Visit Diagnosis:Chronic pain syndrome [G89.4] Other Visit Diagnoses:Closed fracture of shaft of left femur, unspecified fracture morphology, initial encounter ([facility]) [S72.302A] Left leg pain [M79.605] Prescriptions as of 07/29/2024 - hydroCHLOROthiazide 25 mg tablet Take 1 tablet by mouth once daily. - hydrALAZINE (APRESOLINE) 50 mg tablet Take 1 tablet by mouth four times daily. Hold if blood pressure is less than 110/60 - gabapentin (NEURONTIN) 800 mg tablet Take 1 tablet by mouth four times daily for 90 days. - insulin glargine 100 unit/mL (3 mL) Inject 24 Units subcutaneously daily at bedtime. - polyethylene glycol 3350 17 gram/dose powder Take 17 g by mouth once daily as needed for constipation. - losartan (COZAAR) 100 mg tablet Take 1 tablet by mouth once daily. - ondansetron orally disintegrating (ZOFRAN ODT) 8 mg disintegrating tablet Take 1 tablet by mouth every 8 hours as needed for nausea/vomiting. - nicotine (NICODERM CQ) 21 mg/24 hr Apply 1 Patch as directed once daily. - omeprazole (PRILOSEC) 40 mg capsule Take 1 capsule by mouth two times a day. - blood sugar diagnostic ([employer] VERIO TEST STRIPS) test strip 1 Strip four times daily. Use as instructed - Insulin Willow, Disposable, (BD ULTRA-FINE PADMINI PEN NEEDLE) 32 gauge x 5/32" 1 Each three times a day. - fluticasone-salmeterol HFA (ADVAIR HFA) 230-21 mcg/actuation inhaler Inhale 2 Puffs as instructed two times a day. - loratadine (CLARITIN) 10 mg tablet Take 1 tablet by mouth once daily. - tiZANidine (ZANAFLEX) 4 mg tablet Take 4 mg by mouth three times a day as needed. - albuterol HFA (PROVENTIL HFA, VENTOLIN HFA) 90 mcg/actuation inhaler Inhale 2 Puffs as instructed every 4 hours as needed for wheezing/shortness of breath. - CPAP/BIPAP/OTHER Type .CPAPSettings into a note to see current settings/supplies/DME information. - zoledronic acid (RECLAST) 5 mg/100 mL pgbk PREMIX piggyback Inject 100 mL intravenously every year. - insulin lispro (HUMALOG KWIKPEN) 100 unit/mL Inject 8 Units subcutaneously three times a day before meals. Taking as needed Medication notes this encounter OXYCODONE-ACETAMINOPHEN 7.5 MG-325 MG TABLET >> Rob Mart PA-C 07/29/2024 8:06 AM Made no narcotics Problem List As Of Date 07/29/2024 Noted Resolved Uncontrolled type 2 diabetes mellitus with hype*08/28/2022 Chronic midline low back pain with sciatica [M5*08/28/2022 Chronic obstructive lung disease (HCC) [J44.9] 10/18/2022 11/05/2022 Chronic obstructive pulmonary disease, unspecif*11/30/2021 Hyperlipidemia, unspecified [E78.5] 06/15/2021 Tobacco use [Z72.0] 11/05/[address] scan, kidney [R93.429] 11/05/2022 Dyspepsia [R10.13] 02/21/2023 Epigastric pain [R10.13] 02/21/2023 Right upper quadrant abdominal pain [R10.11] 02/21/2023 Chronic gastritis without bleeding [K29.50] 03/12/2023 Gastric wall thickening [K31.89] 03/12/2023 Primary hypertension [I10] 06/11/2023 Neuropathy [G62.9] 06/11/2023 Back pain with history of spinal surgery [M54.9*06/11/2023 FRANCISCO (obstructive sleep apnea) [G47.33] 06/11/2023 DM gastroparesis (HCC) [E11.43, K31.84] 07/04/2023 Abdominal bloating [R14.0] 10/13/2023 Obesity [E66.9] 10/13/2023 Diagnosed: 10/13/2023 Postlaminectomy syndrome of lumbar region [M96.*10/31/2022 Diagnosed: 10/13/2023 Sciatica [M54.30] 11/18/2022 Diagnosed: 10/13/2023 Fall at home, initial encounter [W19.XXXA, Y92.*11/26/2023 12/04/2023 Nicotine use disorder, F17.2 [F17.200] 11/28/2023 Other instructions from your clinician: The OARRS report has been reviewed and is consistent with the patients medical history and medication intake. She had multiple scripts noted for post op meds. The patient's most recent drug screen has been reviewed and is appropriate and consistent with current therapy. Continue to FU with ortho regarding the left femur surgery done in November/the recent fall and the recent right hip replacement done in June. Continue activity as tolerated and physical therapy at the direction of orthopedics/PT Continue with the gabapentin, tizanidine and Lidoderm cream Follow-up in the office in 3 months as needed. Discuss your blood pressure with your family doctor - BP 168/93. I explained to the patient that we will not be able to prescribe any narcotic pain medications as she is now no narcotics. This was already discussed with the patient previously by the phone nurse. Supervising Physician - Dr. Navi Blackman MD Medications Discontinued During This Encounter Prescriptions - oxyCODONE-acetaminophen (PERCOCET) 7.5-325 mg tablet (Discontinued) Take 1 tablet by mouth every 6 hours as needed for pain for up to 30 days. - sertraline (ZOLOFT) 25 mg tablet (Discontinued) Take 1 tablet by mouth once daily. Disposition: Return in about 3 months (around 10/29/2024) for Pain Management. Follow-up and Disposition History for Encounter Date Provider Department Center 07/29/2024 [id number] MART [facility] Encounter Status:Closed by ROB MART on 07/29/24 PROGRESS Observed: 07/29/2024 7:54 AM Status: COMPLETED Source: [facility] HNO ID: [id number] Author: ROB MART PA-C Service: ? Author Type: Physician Exterior Designer Type: Progress Notes Filed: 07/29/2024 08:25 Note Text: This note was created using AirXPriter. Subjective Nikkie Buck is a 58 year old female. The patient primarily being seen for left knee and right hip pain Patient was last seen on: 03/29/24 At that time, the treatment plan was: see notes Current Meds: none Efficacy: Side effects: TENS unit: How often used: Benefit: Physical Therapy: PT/OT in [facility] UDS: Last injection: none OARRS reviewed At the present time, the patient reports benefit with her present analgesic therapy from the orthopedic surgeon. She denies any adverse effects. She is not currently on any medications from our office. Since her previous visit, she had a total right hip replacement done on 06/25/24 at [facility] after falling and fracturing her right femur. She had admitted to the ER doc that she had been drinking that evening and fell and then couldn't get up. While she was in the hospital, the staff had to use Narcan on her on 07/01/24. The nurse found her bottle of percocet 7.5/325 with only 58 pills left from a total of 120 filled on 06/26/24. She had been using these in addition to the medications she was receiving from the hospital. At that point, we informed the patient that we would be unable to continue to prescribe any further narcotic pain medications for her and suggested she seek treatment at [facility] or [facility]. The patient denies this. She states that she only used two pills from her bottle and states the nurse took a full bottle from her. The pain is worse in the left femur. She states that she has two fractures in the left femur. She sees ortho again on 08/12/24 for further evaluation. 07/26/2024 07/27/2024 INTAKE PAIN ASSESSMENT Are you having pain associated with your visit today? Yes, Provider notified Yes, Provider notified Pain Level 8 9 Pain Location Hip-Right Knee-Left Description Sharp;Stabbing Sharp;Stabbing;Other: See comment Duration Amount of Time 24 24 Duration Units Days Years Frequency Continuous Intervention/Comfort measure Medication;Reposition;Cold;Heat Comments I cant sleep most nights HPI PAST MEDICAL HISTORY Diagnosis Date Abdominal bloating 10/13/2023 Arthritis COPD (chronic obstructive pulmonary disease) (HCC) Diabetes (HCC) Hypertension Median arcuate ligament syndrome (HCC) Sleep apnea PAST SURGICAL HISTORY Procedure Laterality Date ANKLE SURGERY HX Left BACK SURGERY HX Bilateral DELIVERY ONLY EGD W/O BRSH SPEC VARICIES INJ 02/21/2023 GI TRANSIT AND PRES SARAH WIRELESS CAPSULE W/INTERP 09/12/2023 Smart Pill, Dr. Vega REVISE MEDIAN N/CARPAL TUNNEL SURG Bilateral TOTAL HIP REPLACEMENT Right VAGINAL HYSTERECTOMY Social History Tobacco Use Smoking status: Every Day Current packs/day: 1.00 Types: Cigarettes Smokeless tobacco: Never Tobacco comments: 3/4's of a pack daily Vaping Use Vaping status: Never Used Substance Use Topics Alcohol use: Never Drug use: Never Review of Systems Constitutional: Negative for fever and unexpected weight change. Musculoskeletal: + back pain, joint pain/swelling, muscle cramps, arthritis, stiffness. Objective BP 168/93 (BP Site: Left Arm, BP Position: Sitting) Pulse 83 Resp 16 SpO2 98% Physical Exam Vitals and nursing note reviewed. Constitutional: Appearance: Normal appearance. She is well-developed and well-groomed. She is obese. HENT: Head: Normocephalic and atraumatic. Right Ear: Hearing normal. Left Ear: Hearing normal. Eyes: Conjunctiva/sclera: Conjunctivae normal. Musculoskeletal: Comments: She has an antalgic gait and is using a walker for assistance. There is tenderness noted in the lumbar region with spasms and trigger points noted in the paraspinal and latissimus dorsi muscles. She has a brace on the LLE from her distal femur to her distal calf. Strength is 4/5 in the BLE due to pain. Sensation is intact to light touch throughout. SLR is negative but causes pain in her hips. She has tenderness noted over the hips bilaterally. There is tenderness noted over the left femur proximally and distally. Neurological: Mental Status: She is alert and oriented to person, place, and time. Psychiatric: Attention and Perception: Attention and perception normal. Mood and Affect: Mood and affect normal. Speech: Speech normal. Behavior: Behavior normal. Behavior is cooperative. Thought Content: Thought content normal. Judgment: Judgment normal. Assessment and Plan ASSESSMENT/PLAN: 1. Chronic pain syndrome - ICD9: 338.4, ICD10: G89.4 (primary diagnosis) 2. Closed fracture of shaft of left femur, unspecified fracture morphology, initial encounter ([facility]) - ICD9: 821.01, ICD10: S72.302A 3. Left leg pain - ICD9: 729.5, ICD10: M79.605 PLAN: The OAR[facility] report has been reviewed and is consistent with the patients medical history and medication intake. She had multiple scripts noted for post op meds. The patient's most recent drug screen has been reviewed and is appropriate and consistent with current therapy. Continue to FU with ortho regarding the left femur surgery done in November/the recent fall and the recent right hip replacement done in June. Continue activity as tolerated and physical therapy at the direction of orthopedics/PT Continue with the gabapentin, tizanidine and Lidoderm cream Follow-up in the office in 3 months as needed. Discuss your blood pressure with your family doctor - BP 168/93. I explained to the patient that we will not be able to prescribe any narcotic pain medications as she is now no narcotics. This was already discussed with the patient previously by the phone nurse. Rob Mart PA-C PROGRESS Observed: 07/22/2024 9:00 AM Status: COMPLETED Source: [facility] ID: [id number] Author: TOMAS BRAXTON RT(R) Service: Radiology Author Type: Technologist Type: Progress Notes Filed: 07/22/2024 09:04 Note Text: RADIOLOGY SERVICE PROGRESS NOTE DATE OF SERVICE: July 22, 2024 TIME OF SERVICE: 08:45AM EVENT: EXAM/PROCEDURE NOT COMPLETED - Patient has contraindication: Other Patient drank coffee. ADDITIONAL EVENT DETAILS: Patient was confused about prep, thought no caffeine for 4 hours instead of 24 hours and drank coffee before arriving for Stress test. Patient wanted to speak with Dr. Martinez about why she even needs the Stress test to begin with. Instructed patient on proper prep for test and gave phone number to reschedule. Patient verbalized understanding. Patient left department. SIGNATURE: RT Lizzy(R) PATIENT NAME: Nikkie Buck DATE: July 22, 2024 TIME: 8:59 AM PAGER/CONTACT #: [email or web address] Observed: 07/14/2024 12:00 AM Status: COMPLETED Source: [facility] Patient Outreach (INTMMN) NIKKIE BUCK ([id number]) 1965 F Date Time Provider Department 07/14/24 RISSA HANKS INTMMN During your visit today, we recorded the following information about you: Allergies As of Date: 07/14/2024 Noted Allergy Reaction DULOXETINE 06/15/2021 7 - Swelling 14 - Other: See Comments Comments: Other reaction(s): swelling Other reaction(s): Unknown Other reaction(s): swelling NSAIDS (NON-STEROIDAL ANTI-INFLAM*08/15/2020 8 - GI Upset Comments: Other reaction(s): GI Upset Other reaction(s): cramping, GI Upset, Other (See Comments), Upset Stomach Severe stomach pain Other reaction(s): GI Upset PENICILLINS 08/15/2020 2 - Rash 14 - Other: See Comments Comments: Other reaction(s): GI Upset, hives, horrible taste in mouth Other reaction(s): GI Upset, GI Upset, horrible taste in mouth, leaves a bad taste in her mouth., NEEDS FOLLOW-UP Other reaction(s): GI Upset, hives, horrible taste in mouth PREGABALIN 08/15/2020 7 - Swelling 14 - Other: See Comments 16 - Unknown Comments: Other reaction(s): swelling, Swelling Other reaction(s): Swelling, Unknown Other reaction(s): swelling, Swelling AMLODIPINE 06/22/2024 5 - Intolerance Comments: leg swelling at 10 mg PENICILLIN G 11/11/2021 8 - GI Upset IBUPROFEN 11/11/2021 8 - GI Upset Comments: Vomiting cramping TYLENOL (ACETAMINOPHEN) 10/27/2022 8 - GI Upset Date Reviewed: 06/21/2024 Reviewed by: Samantha Armstrong LPN - Fully Assessed Visit Diagnosis:Encounter for screening mammogram for breast cancer [Z12.31] Order(s):[facility] [[id number]] Order #: [id number] FUTURE Prescriptions as of 07/19/2024 - oxyCODONE-acetaminophen (PERCOCET) 7.5-325 mg tablet Take 1 tablet by mouth every 6 hours as needed for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 Severe stomach pain Other reaction(s): GI Upset PENICILLINS 08/15/2020 2 - Rash 14 - Other: See Comments Comments: Other reaction(s): GI Upset, hives, horrible taste in mouth Other reaction(s): GI Upset, GI Upset, horrible taste in mouth, leaves a bad taste in her mouth., NEEDS FOLLOW-UP Other reaction(s): GI Upset, hives, horrible taste in mouth PREGABALIN 08/15/2020 7 - Swelling 14 - Other: See Comments 16 - Unknown Comments: Other reaction(s): swelling, Swelling Other reaction(s): Swelling, Unknown Other reaction(s): swelling, Swelling AMLODIPINE 06/22/2024 5 - Intolerance Comments: leg swelling at 10 mg PENICILLIN G 11/11/2021 8 - GI Upset IBUPROFEN 11/11/2021 8 - GI Upset Comments: Vomiting cramping TYLENOL (ACETAMINOPHEN) 10/27/2022 8 - GI Upset Date Reviewed: 06/21/2024 Reviewed by: Samantha Armstrong LPN - Fully Assessed Reason for Visit: Patient Update [1234] Prescriptions as of 07/02/2024 - oxyCODONE-acetaminophen (PERCOCET) 7.5-325 mg tablet Take 1 tablet by mouth every 6 hours as needed for pain for up to 30 days. - LORazepam (ATIVAN) 0.5 mg Take 1 tablet by mouth two times a day as needed for up to 30 days. - sertraline (ZOLOFT) 25 mg tablet Take 1 tablet by mouth once daily. - hydroCHLOROthiazide 25 mg tablet Take 1 tablet by mouth once daily. - hydrALAZINE (APRESOLINE) 50 mg tablet Take 1 tablet by mouth four times daily. Hold if blood pressure is less than 110/60 - gabapentin (NEURONTIN) 800 mg tablet Take 1 tablet by mouth four times daily for 90 days. - insulin glargine 100 unit/mL (3 mL) Inject 24 Units subcutaneously daily at bedtime. - polyethylene glycol 3350 17 gram/dose powder Take 17 g by mouth once daily as needed for constipation. - losartan (COZAAR) 100 mg tablet Take 1 tablet by mouth once daily. - ondansetron orally disintegrating (ZOFRAN ODT) 8 mg disintegrating tablet Take 1 tablet by mouth every 8 hours as needed for nausea/vomiting. - nicotine (NICODERM CQ) 21 mg/24 hr Apply 1 Patch as directed once daily. - omeprazole (PRILOSEC) 40 mg capsule Take 1 capsule by mouth two times a day. - blood sugar diagnostic (ONETOUCH VERIO TEST STRIPS) test strip 1 Strip four times daily. Use as instructed - Insulin Willow, Disposable, (BD ULTRA-FINE PADMINI PEN NEEDLE) 32 gauge x 5/32" 1 Each three times a day. - fluticasone-salmeterol HFA (ADVAIR HFA) 230-21 mcg/actuation inhaler Inhale 2 Puffs as instructed two times a day. - loratadine (CLARITIN) 10 mg tablet Take 1 tablet by mouth once daily. - tiZANidine (ZANAFLEX) 4 mg tablet Take 4 mg by mouth three times a day as needed. - albuterol HFA (PROVENTIL HFA, VENTOLIN HFA) 90 mcg/actuation inhaler Inhale 2 Puffs as instructed every 4 hours as needed for wheezing/shortness of breath. - CPAP/BIPAP/OTHER Type .CPAPSettings into a note to see current settings/supplies/DME information. - zoledronic acid (RECLAST) 5 mg/100 mL pgbk PREMIX piggyback Inject 100 mL intravenously every year. - insulin lispro (HUMALOG KWIKPEN) 100 unit/mL Inject 8 Units subcutaneously three times a day before meals. Taking as needed Problem List As Of Date 07/01/2024 Noted Resolved Uncontrolled type 2 diabetes mellitus with hype*08/28/2022 Chronic midline low back pain with sciatica [M5*08/28/2022 Chronic obstructive lung disease (HCC) [J44.9] 10/18/2022 11/05/2022 Chronic obstructive pulmonary disease, unspecif*11/30/2021 Hyperlipidemia, unspecified [E78.5] 06/15/2021 Tobacco use [Z72.0] 11/05/[address] scan, kidney [R93.429] 11/05/2022 Dyspepsia [R10.13] 02/21/2023 Epigastric pain [R10.13] 02/21/2023 Right upper quadrant abdominal pain [R10.11] 02/21/2023 Chronic gastritis without bleeding [K29.50] 03/12/2023 Gastric wall thickening [K31.89] 03/12/2023 Primary hypertension [I10] 06/11/2023 Neuropathy [G62.9] 06/11/2023 Back pain with history of spinal surgery [M54.9*06/11/2023 FRANCISCO (obstructive sleep apnea) [G47.33] 06/11/2023 DM gastroparesis (HCC) [E11.43, K31.84] 07/04/2023 Abdominal bloating [R14.0] 10/13/2023 Obesity [E66.9] 10/13/2023 Diagnosed: 10/13/2023 Postlaminectomy syndrome of lumbar region [M96.*10/31/2022 Diagnosed: 10/13/2023 Sciatica [M54.30] 11/18/2022 Diagnosed: 10/13/2023 Fall at home, initial encounter [W19.XXXA, Y92.*11/26/2023 12/04/2023 Nicotine use disorder, F17.2 [F17.200] 11/28/2023 Encounter Status:Closed by GEORGINA GONSALEZ on 07/02/24 HARMAN Observed: 06/25/2024 12:00 AM Status: COMPLETED Source: [facility] Telephone (DHAVAL) NIKKIE BUCK ([id number]) 1965 F Date Time Provider Department 06/25/24 ROB MART During your visit today, we recorded the following information about you: Grace Rose LPN 06/25/2024 1:16 PM Signed There is no percocet available at the present pharmacy and wants it changed to the [facility] in [place]. Rob Mart PA-C 06/25/2024 1:28 PM Signed The following approved medication requests have been transmitted electronically. Requested Prescriptions Signed Prescriptions Disp Refills oxyCODONE-acetaminophen (PERCOCET) 7.5-325 mg tablet 120 tablet 0 Sig: Take 1 tablet by mouth every 6 hours as needed for pain for up to 30 days. Authorizing Provider: ROB MART PA-C Allergies As of Date: 06/25/2024 Noted Allergy Reaction DULOXETINE 06/15/2021 7 - Swelling 14 - Other: See Comments Comments: Other reaction(s): swelling Other reaction(s): Unknown Other reaction(s): swelling NSAIDS (NON-STEROIDAL ANTI-INFLAM*08/15/2020 8 - GI Upset Comments: Other reaction(s): GI Upset Other reaction(s): cramping, GI Upset, Other (See Comments), Upset Stomach Severe stomach pain Other reaction(s): GI Upset PENICILLINS 08/15/2020 2 - Rash 14 - Other: See Comments Comments: Other reaction(s): GI Upset, hives, horrible taste in mouth Other reaction(s): GI Upset, GI Upset, horrible taste in mouth, leaves a bad taste in her mouth., NEEDS FOLLOW-UP Other reaction(s): GI Upset, hives, horrible taste in mouth PREGABALIN 08/15/2020 7 - Swelling 14 - Other: See Comments 16 - Unknown Comments: Other reaction(s): swelling, Swelling Other reaction(s): Swelling, Unknown Other reaction(s): swelling, Swelling AMLODIPINE 06/22/2024 5 - Intolerance Comments: leg swelling at 10 mg PENICILLIN G 11/11/2021 8 - GI Upset IBUPROFEN 11/11/2021 8 - GI Upset Comments: Vomiting cramping TYLENOL (ACETAMINOPHEN) 10/27/2022 8 - GI Upset Date Reviewed: 06/21/2024 Reviewed by: Samantha Armstrong LPN - Fully Assessed Reason for Visit: Medication Problem [65] Visit Diagnoses:Left leg pain [M79.605] Closed fracture of shaft of left femur, unspecified fracture morphology, initial encounter ([facility]) [S72.302A] Order(s):oxyCODONE-acetaminophen (PERCOCET) 7.5-325 mg tabletTake 1 tablet by mouth every 6 hours as needed for pain for up to 30 days.Disp: 120 tabletRfl: 0 Prescriptions as of 06/25/2024 - oxyCODONE-acetaminophen (PERCOCET) 7.5-325 mg tablet Take 1 tablet by mouth every 6 hours as needed for pain for up to 30 days. - LORazepam (ATIVAN) 0.5 mg Take 1 tablet by mouth two times a day as needed for up to 30 days. - sertraline (ZOLOFT) 25 mg tablet Take 1 tablet by mouth once daily. - hydroCHLOROthiazide 25 mg tablet Take 1 tablet by mouth once daily. - hydrALAZINE (APRESOLINE) 50 mg tablet Take 1 tablet by mouth four times daily. Hold if blood pressure is less than 110/60 - gabapentin (NEURONTIN) 800 mg tablet Take 1 tablet by mouth four times daily for 90 days. - insulin glargine 100 unit/mL (3 mL) Inject 24 Units subcutaneously daily at bedtime. - polyethylene glycol 3350 17 gram/dose powder Take 17 g by mouth once daily as needed for constipation. - losartan (COZAAR) 100 mg tablet Take 1 tablet by mouth once daily. - ondansetron orally disintegrating (ZOFRAN ODT) 8 mg disintegrating tablet Take 1 tablet by mouth every 8 hours as needed for nausea/vomiting. - nicotine (NICODERM CQ) 21 mg/24 hr Apply 1 Patch as directed once daily. - omeprazole (PRILOSEC) 40 mg capsule Take 1 capsule by mouth two times a day. - blood sugar diagnostic (ONETOUCH VERIO TEST STRIPS) test strip 1 Strip four times daily. Use as instructed - Insulin Willow, Disposable, (BD ULTRA-FINE PADMINI PEN NEEDLE) 32 gauge x 5/32" 1 Each three times a day. - fluticasone-salmeterol HFA (ADVAIR HFA) 230-21 mcg/actuation inhaler Inhale 2 Puffs as instructed two times a day. - loratadine (CLARITIN) 10 mg tablet Take 1 tablet by mouth once daily. - tiZANidine (ZANAFLEX) 4 mg tablet Take 4 mg by mouth three times a day as needed. - albuterol HFA (PROVENTIL HFA, VENTOLIN HFA) 90 mcg/actuation inhaler Inhale 2 Puffs as instructed every 4 hours as needed for wheezing/shortness of breath. - CPAP/BIPAP/OTHER Type .CPAPSettings into a note to see current settings/supplies/DME information. - zoledronic acid (RECLAST) 5 mg/100 mL pgbk PREMIX piggyback Inject 100 mL intravenously every year. - insulin lispro (HUMALOG KWIKPEN) 100 unit/mL Inject 8 Units subcutaneously three times a day before meals. Taking as needed Problem List As Of Date 06/25/2024 Noted Resolved Uncontrolled type 2 diabetes mellitus with hype*08/28/2022 Chronic midline low back pain with sciatica [M5*08/28/2022 Chronic obstructive lung disease (HCC) [J44.9] 10/18/2022 11/05/2022 Chronic obstructive pulmonary disease, unspecif*11/30/2021 Hyperlipidemia, unspecified [E78.5] 06/15/2021 Tobacco use [Z72.0] 11/05/[address] scan, kidney [R93.429] 11/05/2022 Dyspepsia [R10.13] 02/21/2023 Epigastric pain [R10.13] 02/21/2023 Right upper quadrant abdominal pain [R10.11] 02/21/2023 Chronic gastritis without bleeding [K29.50] 03/12/2023 Gastric wall thickening [K31.89] 03/12/2023 Primary hypertension [I10] 06/11/2023 Neuropathy [G62.9] 06/11/2023 Back pain with history of spinal surgery [M54.9*06/11/2023 FRANCISCO (obstructive sleep apnea) [G47.33] 06/11/2023 DM gastroparesis (HCC) [E11.43, K31.84] 07/04/2023 Abdominal bloating [R14.0] 10/13/2023 Obesity [E66.9] 10/13/2023 Diagnosed: 10/13/2023 Postlaminectomy syndrome of lumbar region [M96.*10/31/2022 Diagnosed: 10/13/2023 Sciatica [M54.30] 11/18/2022 Diagnosed: 10/13/2023 Fall at home, initial encounter [W19.XXXA, Y92.*11/26/2023 12/04/2023 Nicotine use disorder, F17.2 [F17.200] 11/28/2023 Prescriptions ordered this encounter Disp Refills Start End OXYCODONE-ACETAMINOPHEN 7.5 MG-325 M* 120 * 0 06/25/2024 07/25/2024 [facility]: [id number] Route: ORAL Sig: Take 1 tablet by mouth every 6 hours as needed for pain for up to 30 days. Medications Discontinued During This Encounter Prescriptions - oxyCODONE-acetaminophen (PERCOCET) 7.5-325 mg tablet (Discontinued) Take 1 tablet by mouth every 6 hours as needed for pain for up to 30 days. Patient should start on June 25, 2024. Encounter Status:Closed by ROB MART on 06/25/24 HARMAN Observed: 06/24/2024 12:00 AM Status: COMPLETED Source: [facility] Telephone (NATACHA) NIKKIE BUCK ([id number]) 1965 F Date Time Provider Department 06/24/24 NAVI BLACKMAN During your visit today, we recorded the following information about you: Indy Farrar RN 06/24/2024 8:38 AM Signed Received a message from Tani stating she can not get a hold of pt, previous PK Clean message states to use PK Clean to contact her until further notice. I sent message about Friday appt, awaiting pt response Indy Farrar RN June 24, 2024 8:38 AM Allergies As of Date: 06/24/2024 Noted Allergy Reaction DULOXETINE 06/15/2021 7 - Swelling 14 - Other: See Comments Comments: Other reaction(s): swelling Other reaction(s): Unknown Other reaction(s): swelling NSAIDS (NON-STEROIDAL ANTI-INFLAM*08/15/2020 8 - GI Upset Comments: Other reaction(s): GI Upset Other reaction(s): cramping, GI Upset, Other (See Comments), Upset Stomach Severe stomach pain Other reaction(s): GI Upset PENICILLINS 08/15/2020 2 - Rash 14 - Other: See Comments Comments: Other reaction(s): GI Upset, hives, horrible taste in mouth Other reaction(s): GI Upset, GI Upset, horrible taste in mouth, leaves a bad taste in her mouth., NEEDS FOLLOW-UP Other reaction(s): GI Upset, hives, horrible taste in mouth PREGABALIN 08/15/2020 7 - Swelling 14 - Other: See Comments 16 - Unknown Comments: Other reaction(s): swelling, Swelling Other reaction(s): Swelling, Unknown Other reaction(s): swelling, Swelling AMLODIPINE 06/22/2024 5 - Intolerance Comments: leg swelling at 10 mg PENICILLIN G 11/11/2021 8 - GI Upset IBUPROFEN 11/11/2021 8 - GI Upset Comments: Vomiting cramping TYLENOL (ACETAMINOPHEN) 10/27/2022 8 - GI Upset Date Reviewed: 06/21/2024 Reviewed by: Samantha Armstrong LPN - Fully Assessed Prescriptions as of 06/24/2024 - oxyCODONE-acetaminophen (PERCOCET) 7.5-325 mg tablet Take 1 tablet by mouth every 6 hours as needed for pain for up to 30 days. Patient should start on June 25, 2024. - LORazepam (ATIVAN) 0.5 mg Take 1 tablet by mouth two times a day as needed for up to 30 days. - sertraline (ZOLOFT) 25 mg tablet Take 1 tablet by mouth once daily. - hydroCHLOROthiazide 25 mg tablet Take 1 tablet by mouth once daily. - hydrALAZINE (APRESOLINE) 50 mg tablet Take 1 tablet by mouth four times daily. Hold if blood pressure is less than 110/60 - gabapentin (NEURONTIN) 800 mg tablet Take 1 tablet by mouth four times daily for 90 days. - insulin glargine 100 unit/mL (3 mL) Inject 24 Units subcutaneously daily at bedtime. - polyethylene glycol 3350 17 gram/dose powder Take 17 g by mouth once daily as needed for constipation. - losartan (COZAAR) 100 mg tablet Take 1 tablet by mouth once daily. - ondansetron orally disintegrating (ZOFRAN ODT) 8 mg disintegrating tablet Take 1 tablet by mouth every 8 hours as needed for nausea/vomiting. - nicotine (NICODERM CQ) 21 mg/24 hr Apply 1 Patch as directed once daily. - omeprazole (PRILOSEC) 40 mg capsule Take 1 capsule by mouth two times a day. - blood sugar diagnostic ([employer]UCH VERIO TEST STRIPS) test strip 1 Strip four times daily. Use as instructed - Insulin Willow, Disposable, (BD ULTRA-FINE PADMINI PEN NEEDLE) 32 gauge x 5/32" 1 Each three times a day. - fluticasone-salmeterol HFA (ADVAIR HFA) 230-21 mcg/actuation inhaler Inhale 2 Puffs as instructed two times a day. - loratadine (CLARITIN) 10 mg tablet Take 1 tablet by mouth once daily. - tiZANidine (ZANAFLEX) 4 mg tablet Take 4 mg by mouth three times a day as needed. - albuterol HFA (PROVENTIL HFA, VENTOLIN HFA) 90 mcg/actuation inhaler Inhale 2 Puffs as instructed every 4 hours as needed for wheezing/shortness of breath. - CPAP/BIPAP/OTHER Type .CPAPSettings into a note to see current settings/supplies/DME information. - zoledronic acid (RECLAST) 5 mg/100 mL pgbk PREMIX piggyback Inject 100 mL intravenously every year. - insulin lispro (HUMALOG KWIKPEN) 100 unit/mL Inject 8 Units subcutaneously three times a day before meals. Taking as needed Problem List As Of Date 06/24/2024 Noted Resolved Uncontrolled type 2 diabetes mellitus with hype*08/28/2022 Chronic midline low back pain with sciatica [M5*08/28/2022 Chronic obstructive lung disease (HCC) [J44.9] 10/18/2022 11/05/2022 Chronic obstructive pulmonary disease, unspecif*11/30/2021 Hyperlipidemia, unspecified [E78.5] 06/15/2021 Tobacco use [Z72.0] 11/05/[address] scan, kidney [R93.429] 11/05/2022 Dyspepsia [R10.13] 02/21/2023 Epigastric pain [R10.13] 02/21/2023 Right upper quadrant abdominal pain [R10.11] 02/21/2023 Chronic gastritis without bleeding [K29.50] 03/12/2023 Gastric wall thickening [K31.89] 03/12/2023 Primary hypertension [I10] 06/11/2023 Neuropathy [G62.9] 06/11/2023 Back pain with history of spinal surgery [M54.9*06/11/2023 FRANCISCO (obstructive sleep apnea) [G47.33] 06/11/2023 DM gastroparesis (HCC) [E11.43, K31.84] 07/04/2023 Abdominal bloating [R14.0] 10/13/2023 Obesity [E66.9] 10/13/2023 Diagnosed: 10/13/2023 Postlaminectomy syndrome of lumbar region [M96.*10/31/2022 Diagnosed: 10/13/2023 Sciatica [M54.30] 11/18/2022 Diagnosed: 10/13/2023 Fall at home, initial encounter [W19.XXXA, Y92.*11/26/2023 12/04/2023 Nicotine use disorder, F17.2 [F17.200] 11/28/2023 Encounter Status:Closed by INDY FARRAR on 06/24/24 PROGRESS Observed: 06/21/2024 3:00 PM Status: COMPLETED Source: [facility] HNO ID: [id number] Author: GEORGINA GONSALEZ APRN.PATIENT SERVICES COORDINATOR Service: ? Author Type: Nurse Specialist Type: Progress Notes Filed: 06/22/2024 07:23 Note Text: SUBJECTIVE: Pneumococcal Vaccine(1 of 2 - PCV) Never done Dilated Retinal Exam Never done Diabetic Foot Exam Never done Spirometry Never done Depression Screening Never done Anxiety Screening Never done DTaP,Tdap,Td Vaccine(1 - Tdap) Never done Cervical Cancer Screening Never done Shingrix Vaccine(1 of 2) Never done Mammogram Screening due on 08/20/2023 Urine Albumin:Creatinine Ratio due on 09/16/2023 BP Controlled (<130/80) due on 02/26/2024 Influenza Vaccine(1) Never done Covid-19 Vaccine( - season) Never done HPI Nikkie Buck is a 58 year old female.PMH significnat or ACTIVE PROBLEM LIST Uncontrolled Type 2 Diabetes Mellitus With Hyperglycemia (Hcc) Chronic Midline Low Back Pain With Sciatica Chronic Obstructive Pulmonary Disease, Unspecified (Hcc) Hyperlipidemia, Unspecified Tobacco Use Abnormal CT Scan, Kidney Dyspepsia Epigastric Pain Right Upper Quadrant Abdominal Pain Chronic Gastritis Without Bleeding Gastric Wall Thickening Primary Hypertension Neuropathy Back Pain With History of Spinal Surgery Francisco (Obstructive Sleep Apnea) Dm Gastroparesis (Hcc) (Hcc) Abdominal Bloating Obesity Postlaminectomy Syndrome of Lumbar Region Sciatica Nicotine use disorder, F17.2 Presents today for emergency department follow-up visit. She was seen at [facility] 06/18/2024. She had contacted the office June 18, 2024 reporting elevated blood pressures at home, tinnitus and headaches. PK Clean message sent continued on losartan 100 mg daily and hydralazine 50 mg 4 times daily. Recommended resuming hydrochlorothiazide, no recent refill noted. Contacted the office earlier today noting that blood pressure was still elevated. She subsequently presented to [facility] in June 2024 reporting. Blood pressure readings in the emergency department were 243/113 labs were completed. Labs were unremarkable. EKG showed sinus rhythm with a rate of 80 bpm. She eloped from the ER prior to completion of evaluation and treatment. She was seen by Dr Leticia Martinez vascular surgery on May 20, 2024. OV note excerpted: IMPRESSION: Ms. 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 PLAN and RECOMMENDATIONS: -All imaging reviewed. 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 However celiac plexus block did not relieve symptoms. Discussed with patient that symptoms of pain may be present after median arcuate ligament release. Patient understands but would like to move forward with surgery. Awaiting results of stress testing. - Discussed with GI with Dr. Vega who agrees symptoms are most likely secondary to median arcuate ligament. -Stress Test- -Smoking cessation discussed with the patient and given Nicoderm patches. Continues to smoke. Discussed possible issues with wound healing with continued smoking. -Diabetes with recent hemoglobin A1C 7.9 04/22/2024. -Hypertension- need to take blood pressure medications - Recommend patient to call PCP for anxiety medications - Patient is in agreement with the above plan. All questions answered. Plan for median arcuate ligament release. She needs a stress test completed to be scheduled for surgery per Dr Martinez. Today reports that she is no longer having headaches or tinnitus. She reports resuming HCTZ 12.5 mg. HTN: Currently without report of headache, chest pain, palpitations, dyspnea, peripheral edema, orthopnea, fatigue, and PND. She notes that she has quit smoking. Review of outside medications shows some delays in getting refills of his blood pressure medications. At April visit in internal medicine amlodipine was discontinued due to swelling in the leg and resumed on losartan. Last 14 Encounter BP Readings: Date: BP: 06/21/2024 157/99 05/20/2024 168/94 05/05/2024 128/70 04/15/2024 128/75 03/29/2024 169/90 02/27/2024 120/72 01/29/2024 136/67 01/29/2024 171/85 11/27/2023 165/83 11/26/2023 155/71 10/23/2023 167/82 10/16/2023 90/52 10/16/2023 135/57 10/13/2023 150/80 Patient's last HgA1C Hemoglobin A1C (%) Date Value 04/22/2024 7.9 08/05/2023 9.4 She notes abdominal pain continues unchanged.She has stress test scheduled. Notes RUQ/epigastric discomfort. Taking PPI only intermittently as needed. She reports a sensation of something "folding" in her abdomen recently with decersed numbness in the abdomen after this. No nausea vomiting diarrhea constipation BRBPR black or tarry stools is reported. Notes BM every other day, usual pattern. She notes following with [facility] provider, leg still not healed and wearing a brace. Imaging completed 05/2024, see scanned documents. She notes anxiety over her medical problems. She is feeling anxious most daily. Notes trouble with focus and some trouble sleeping. Interested in medication for this.No voiced SI, HI. Review of Systems Constitutional: Negative. HENT: Negative for tinnitus. Respiratory: Negative. Cardiovascular: Negative. Musculoskeletal: Positive for arthralgias. Neurological: Negative for headaches. Objective BP 157/99 Pulse 83 Resp 16 Wt 66.2 kg (145 lb 15.1 oz) BMI 28.50 kg/m? Physical Exam Vitals and nursing note reviewed. Constitutional: Appearance: Normal appearance. HENT: Head: Normocephalic and atraumatic. Eyes: Conjunctiva/sclera: Conjunctivae normal. Neck: Thyroid: No thyromegaly. Vascular: No JVD. Cardiovascular: Rate and Rhythm: Normal rate and regular rhythm. Heart sounds: Normal heart sounds. Pulmonary: Effort: Pulmonary effort is normal. Breath sounds: Normal breath sounds. Abdominal: General: Bowel sounds are normal. Palpations: Abdomen is soft. Musculoskeletal: Right lower leg: No edema. Left lower leg: No edema. Comments: brace left leg Skin: General: Skin is warm and dry. Neurological: General: No focal deficit present. Mental Status: She is alert and oriented to person, place, and time. ALLERGIES Allergen Reactions Duloxetine Swelling, Other: See Comments Other reaction(s): swelling Other reaction(s): Unknown Other reaction(s): swelling Nsaids (Non-Steroid* GI Upset Other reaction(s): GI Upset Other reaction(s): cramping, GI Upset, Other (See Comments), Upset Stomach Severe stomach pain Other reaction(s): GI Upset Penicillins Rash, Other: See Comments Other reaction(s): GI Upset, hives, horrible taste in mouth Other reaction(s): GI Upset, GI Upset, horrible taste in mouth, leaves a bad taste in her mouth., NEEDS FOLLOW-UP Other reaction(s): GI Upset, hives, horrible taste in mouth Pregabalin Swelling, Other: See Comments, Unknown Other reaction(s): swelling, Swelling Other reaction(s): Swelling, Unknown Other reaction(s): swelling, Swelling Amlodipine Intolerance leg swelling at 10 mg Penicillin G GI Upset Ibuprofen GI Upset Vomiting cramping Tylenol [Acetaminop* GI Upset Medications hydrALAZINE (APRESOLINE) 50 mg tablet Take 1 tablet by mouth four times daily. Hold if blood pressure is less than 110/60 oxyCODONE-acetaminophen (PERCOCET) 7.5-325 mg tablet Take 1 tablet by mouth every 6 hours as needed for pain for up to 30 days. Patient should start on May 27, 2024. gabapentin (NEURONTIN) 800 mg tablet Take 1 tablet by mouth four times daily for 90 days. insulin glargine 100 unit/mL (3 mL) Inject 24 Units subcutaneously daily at bedtime. polyethylene glycol 3350 17 gram/dose powder Take 17 g by mouth once daily as needed for constipation. losartan (COZAAR) 100 mg tablet Take 1 tablet by mouth once daily. ondansetron orally disintegrating (ZOFRAN ODT) 8 mg disintegrating tablet Take 1 tablet by mouth every 8 hours as needed for nausea/vomiting. omeprazole (PRILOSEC) 40 mg capsule Take 1 capsule by mouth two times a day. blood sugar diagnostic ([employer]UCH VERIO TEST STRIPS) test strip 1 Strip four times daily. Use as instructed Insulin Willow, Disposable, (BD ULTRA-FINE PADMINI PEN NEEDLE) 32 gauge x 5/32" 1 Each three times a day. fluticasone-salmeterol HFA (ADVAIR HFA) 230-21 mcg/actuation inhaler Inhale 2 Puffs as instructed two times a day. loratadine (CLARITIN) 10 mg tablet Take 1 tablet by mouth once daily. tiZANidine (ZANAFLEX) 4 mg tablet Take 4 mg by mouth three times a day as needed. albuterol HFA (PROVENTIL HFA, VENTOLIN HFA) 90 mcg/actuation inhaler Inhale 2 Puffs as instructed every 4 hours as needed for wheezing/shortness of breath. CPAP/BIPAP/OTHER Type .CPAPSettings into a note to see current settings/supplies/DME information. zoledronic acid (RECLAST) 5 mg/100 mL pgbk PREMIX piggyback Inject 100 mL intravenously every year. insulin lispro (HUMALOG KWIKPEN) 100 unit/mL Inject 8 Units subcutaneously three times a day before meals. Taking as needed LORazepam (ATIVAN) 0.5 mg Take 1 tablet by mouth two times a day as needed for up to 30 days. sertraline (ZOLOFT) 25 mg tablet Take 1 tablet by mouth once daily. hydroCHLOROthiazide 25 mg tablet Take 1 tablet by mouth once daily. nicotine (NICODERM CQ) 21 mg/24 hr Apply 1 Patch as directed once daily. (Patient not taking: Reported on 05/20/2024) PAST MEDICAL HISTORY Diagnosis Date Abdominal bloating 10/13/2023 Arthritis COPD (chronic obstructive pulmonary disease) (HCC) Diabetes (HCC) Hypertension Median arcuate ligament syndrome (HCC) Sleep apnea Social History Tobacco Use Smoking status: Every Day Current packs/day: 1.00 Types: Cigarettes Smokeless tobacco: Never Tobacco comments: 3/4's of a pack daily Vaping Use Vaping status: Never Used Substance Use Topics Alcohol use: Never Drug use: Never ASSESSMENT/PLAN: 1. Primary hypertension - ICD9: 401.9, ICD10: I10 (primary diagnosis) Improved control, suboptimal still Increase HCTZ from 12.5 mg to 25 mg daily. - Encourage sodium restriction, DASH or Mediterranean diet - Recommend regular aerobic exercise - HYDROCHLOROTHIAZIDE 25 MG TABLET 2. Anxiety - ICD9: 300.00, ICD10: F41.9 Notes anxiety over medical conditions. Recommend daily sertraline 25 mg. As needed lorazepam QD or BID until sertraline takes effect for anxiety. - LORAZEPAM 0.5 MG TABLET - SERTRALINE 25 MG TABLET 3. Right upper quadrant abdominal pain - ICD9: 789.01, ICD10: R10.11 Recommend resume PPI daily to see if this helps. 4. Tobacco use - ICD9: 305.1, ICD10: Z72.0 She has stopped smoking. 1 mo recheck Georgina Gonsalez APRN.PATIENT SERVICES COORDINATOR 6 mo recheck MD Georgina Li APRN.CNS Medical Decision Making: Problems: Moderate: 1+ chronic illnesses with change Data: Unique source(s) for external note(s) reviewed: 1 Unique test result(s) reviewed: 3+ Risk: Moderate: Drug management Medical Decision Making Level: 4 - Moderate CNOV Observed: 06/21/2024 3:00 PM Status: COMPLETED Source: [facility] Office Visit (INTMWS) NIKKIE BUCK ([id number]) 1965 F Date Time Provider Department 06/21/24 3:00 PM GEORGINA GONSALEZ During your visit today, we recorded the following information about you: Pulse Respiration Blood pressure Weight 83/minute 16/minute 157/99 66.2 kg Georgina Gonsalez APRN.CNS 06/21/2024 2:58 PM Signed For blood pressure: Continue with losartan-hydralazine unchanged. Increase hydrochlorothiazide from 12.5 mg to 25 mg daily For abdominal pain: Take omeprazole daily For anxiety. Take sertraline daily. Take lorazepam as needed for anxiety once or twice daily Georgina Gonsalez APRN.[facility] 06/22/2024 7:23 AM Signed SUBJECTIVE: Pneumococcal Vaccine(1 of 2 - PCV) Never done Dilated Retinal Exam Never done Diabetic Foot Exam Never done Spirometry Never done Depression Screening Never done Anxiety Screening Never done DTaP,Tdap,Td Vaccine(1 - Tdap) Never done Cervical Cancer Screening Never done Shingrix Vaccine(1 of 2) Never done Mammogram Screening due on 08/20/2023 Urine Albumin:Creatinine Ratio due on 09/16/2023 BP Controlled (<130/80) due on 02/26/2024 Influenza Vaccine(1) Never done Covid-19 Vaccine(2023-) Never done HPI Nikkie Buck is a 58 year old female.H significnat or ACTIVE PROBLEM LIST Uncontrolled Type 2 Diabetes Mellitus With Hyperglycemia (Hcc) Chronic Midline Low Back Pain With Sciatica Chronic Obstructive Pulmonary Disease, Unspecified (Hcc) Hyperlipidemia, Unspecified Tobacco Use Abnormal CT Scan, Kidney Dyspepsia Epigastric Pain Right Upper Quadrant Abdominal Pain Chronic Gastritis Without Bleeding Gastric Wall Thickening Primary Hypertension Neuropathy Back Pain With History of Spinal Surgery Francisco (Obstructive Sleep Apnea) Dm Gastroparesis (Hcc) (Hcc) Abdominal Bloating Obesity Postlaminectomy Syndrome of Lumbar Region Sciatica Nicotine use disorder, F17.2 Presents today for emergency department follow-up visit. She was seen at [facility] 06/18/2024. She had contacted the office June 18, 2024 reporting elevated blood pressures at home, tinnitus and headaches. MyChart message sent continued on losartan 100 mg daily and hydralazine 50 mg 4 times daily. Recommended resuming hydrochlorothiazide, no recent refill noted. Contacted the office earlier today noting that blood pressure was still elevated. She subsequently presented to [facility] in June 2024 reporting. Blood pressure readings in the emergency department were 243/113 labs were completed. Labs were unremarkable. EKG showed sinus rhythm with a rate of 80 bpm. She eloped from the ER prior to completion of evaluation and treatment. She was seen by Dr Leticia Martinez vascular surgery on May 20, 2024. OV note excerpted: IMPRESSION: Ms. 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 PLAN and RECOMMENDATIONS: -All imaging reviewed. 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 However celiac plexus block did not relieve symptoms. Discussed with patient that symptoms of pain may be present after median arcuate ligament release. Patient understands but would like to move forward with surgery. Awaiting results of stress testing. - Discussed with GI with Dr. Vega who agrees symptoms are most likely secondary to median arcuate ligament. -Stress Test- -Smoking cessation discussed with the patient and given Nicoderm patches. Continues to smoke. Discussed possible issues with wound healing with continued smoking. -Diabetes with recent hemoglobin A1C 7.9 04/22/2024. -Hypertension- need to take blood pressure medications - Recommend patient to call PCP for anxiety medications - Patient is in agreement with the above plan. All questions answered. Plan for median arcuate ligament release. She needs a stress test completed to be scheduled for surgery per Dr Martinez. Today reports that she is no longer having headaches or tinnitus. She reports resuming HCTZ 12.5 mg. HTN: Currently without report of headache, chest pain, palpitations, dyspnea, peripheral edema, orthopnea, fatigue, and PND. She notes that she has quit smoking. Review of outside medications shows some delays in getting refills of his blood pressure medications. At April visit in internal medicine amlodipine was discontinued due to swelling in the leg and resumed on losartan. Last 14 Encounter BP Readings: Date: BP: 06/21/2024 157/99 05/20/2024 168/94 05/05/2024 128/70 04/15/2024 128/75 03/29/2024 169/90 02/27/2024 120/72 01/29/2024 136/67 01/29/2024 171/85 11/27/2023 165/83 11/26/2023 155/71 10/23/2023 167/82 10/16/2023 90/52 10/16/2023 135/57 10/13/2023 150/80 Patient's last HgA1C Hemoglobin A1C (%) Date Value 04/22/2024 7.9 08/05/2023 9.4 She notes abdominal pain continues unchanged.She has stress test scheduled. Notes RUQ/epigastric discomfort. Taking PPI only intermittently as needed. She reports a sensation of something "folding" in her abdomen recently with decersed numbness in the abdomen after this. No nausea vomiting diarrhea constipation BRBPR black or tarry stools is reported. Notes BM every other day, usual pattern. She notes following with [facility] provider, leg still not healed and wearing a brace. Imaging completed 05/2024, see scanned documents. She notes anxiety over her medical problems. She is feeling anxious most daily. Notes trouble with focus and some trouble sleeping. Interested in medication for this.No voiced SI, HI. Review of Systems Constitutional: Negative. HENT: Negative for tinnitus. Respiratory: Negative. Cardiovascular: Negative. Musculoskeletal: Positive for arthralgias. Neurological: Negative for headaches. Objective BP 157/99 Pulse 83 Resp 16 Wt 66.2 kg (145 lb 15.1 oz) BMI 28.50 kg/m? Physical Exam Vitals and nursing note reviewed. Constitutional: Appearance: Normal appearance. HENT: Head: Normocephalic and atraumatic. Eyes: Conjunctiva/sclera: Conjunctivae normal. Neck: Thyroid: No thyromegaly. Vascular: No JVD. Cardiovascular: Rate and Rhythm: Normal rate and regular rhythm. Heart sounds: Normal heart sounds. Pulmonary: Effort: Pulmonary effort is normal. Breath sounds: Normal breath sounds. Abdominal: General: Bowel sounds are normal. Palpations: Abdomen is soft. Musculoskeletal: Right lower leg: No edema. Left lower leg: No edema. Comments: brace left leg Skin: General: Skin is warm and dry. Neurological: General: No focal deficit present. Mental Status: She is alert and oriented to person, place, and time. ALLERGIES Allergen Reactions Duloxetine Swelling, Other: See Comments Other reaction(s): swelling Other reaction(s): Unknown Other reaction(s): swelling Nsaids (Non-Steroid* GI Upset Other reaction(s): GI Upset Other reaction(s): cramping, GI Upset, Other (See Comments), Upset Stomach Severe stomach pain Other reaction(s): GI Upset Penicillins Rash, Other: See Comments Other reaction(s): GI Upset, hives, horrible taste in mouth Other reaction(s): GI Upset, GI Upset, horrible taste in mouth, leaves a bad taste in her mouth., NEEDS FOLLOW-UP Other reaction(s): GI Upset, hives, horrible taste in mouth Pregabalin Swelling, Other: See Comments, Unknown Other reaction(s): swelling, Swelling Other reaction(s): Swelling, Unknown Other reaction(s): swelling, Swelling Amlodipine Intolerance leg swelling at 10 mg Penicillin G GI Upset Ibuprofen GI Upset Vomiting cramping Tylenol [Acetaminop* GI Upset Medications hydrALAZINE (APRESOLINE) 50 mg tablet Take 1 tablet by mouth four times daily. Hold if blood pressure is less than 110/60 oxyCODONE-acetaminophen (PERCOCET) 7.5-325 mg tablet Take 1 tablet by mouth every 6 hours as needed for pain for up to 30 days. Patient should start on May 27, 2024. gabapentin (NEURONTIN) 800 mg tablet Take 1 tablet by mouth four times daily for 90 days. insulin glargine 100 unit/mL (3 mL) Inject 24 Units subcutaneously daily at bedtime. polyethylene glycol 3350 17 gram/dose powder Take 17 g by mouth once daily as needed for constipation. losartan (COZAAR) 100 mg tablet Take 1 tablet by mouth once daily. ondansetron orally disintegrating (ZOFRAN ODT) 8 mg disintegrating tablet Take 1 tablet by mouth every 8 hours as needed for nausea/vomiting. omeprazole (PRILOSEC) 40 mg capsule Take 1 capsule by mouth two times a day. blood sugar diagnostic ([employer]ET[employer]CH VERIO TEST STRIPS) test strip 1 Strip four times daily. Use as instructed Insulin Willow, Disposable, (BD ULTRA-FINE PADMINI PEN NEEDLE) 32 gauge x 5/32" 1 Each three times a day. fluticasone-salmeterol HFA (ADVAIR HFA) 230-21 mcg/actuation inhaler Inhale 2 Puffs as instructed two times a day. loratadine (CLARITIN) 10 mg tablet Take 1 tablet by mouth once daily. tiZANidine (ZANAFLEX) 4 mg tablet Take 4 mg by mouth three times a day as needed. albuterol HFA (PROVENTIL HFA, VENTOLIN HFA) 90 mcg/actuation inhaler Inhale 2 Puffs as instructed every 4 hours as needed for wheezing/shortness of breath. CPAP/BIPAP/OTHER Type .CPAPSettings into a note to see current settings/supplies/DME information. zoledronic acid (RECLAST) 5 mg/100 mL pgbk PREMIX piggyback Inject 100 mL intravenously every year. insulin lispro (HUMALOG KWIKPEN) 100 unit/mL Inject 8 Units subcutaneously three times a day before meals. Taking as needed LORazepam (ATIVAN) 0.5 mg Take 1 tablet by mouth two times a day as needed for up to 30 days. sertraline (ZOLOFT) 25 mg tablet Take 1 tablet by mouth once daily. hydroCHLOROthiazide 25 mg tablet Take 1 tablet by mouth once daily. nicotine (NICODERM CQ) 21 mg/24 hr Apply 1 Patch as directed once daily. (Patient not taking: Reported on 05/20/2024) PAST MEDICAL HISTORY Diagnosis Date Abdominal bloating 10/13/2023 Arthritis COPD (chronic obstructive pulmonary disease) (HCC) Diabetes (HCC) Hypertension Median arcuate ligament syndrome (HCC) Sleep apnea Social History Tobacco Use Smoking status: Every Day Current packs/day: 1.00 Types: Cigarettes Smokeless tobacco: Never Tobacco comments: 3/4's of a pack daily Vaping Use Vaping status: Never Used Substance Use Topics Alcohol use: Never Drug use: Never ASSESSMENT/PLAN: 1. Primary hypertension - ICD9: 401.9, ICD10: I10 (primary diagnosis) Improved control, suboptimal still Increase HCTZ from 12.5 mg to 25 mg daily. - Encourage sodium restriction, DASH or Mediterranean diet - Recommend regular aerobic exercise - HYDROCHLOROTHIAZIDE 25 MG TABLET 2. Anxiety - ICD9: 300.00, ICD10: F41.9 Notes anxiety over medical conditions. Recommend daily sertraline 25 mg. As needed lorazepam QD or BID until sertraline takes effect for anxiety. - LORAZEPAM 0.5 MG TABLET - SERTRALINE 25 MG TABLET 3. Right upper quadrant abdominal pain - ICD9: 789.01, ICD10: R10.11 Recommend resume PPI daily to see if this helps. 4. Tobacco use - ICD9: 305.1, ICD10: Z72.0 She has stopped smoking. 1 mo recheck Georgina Gonsalez, SURVEYOR CHAIN HELPER.PATIENT SERVICES COORDINATOR 6 mo recheck MD Georgina Li, SURVEYOR CHAIN HELPER.PATIENT SERVICES COORDINATOR Medical Decision Making: Problems: Moderate: 1+ chronic illnesses with change Data: Unique source(s) for external note(s) reviewed: 1 Unique test result(s) reviewed: 3+ Risk: Moderate: Drug management Medical Decision Making Level: 4 - Moderate Allergies As of Date: 06/21/2024 Noted Allergy Reaction DULOXETINE 06/15/2021 7 - Swelling 14 - Other: See Comments Comments: Other reaction(s): swelling Other reaction(s): Unknown Other reaction(s): swelling NSAIDS (NON-STEROIDAL ANTI-INFLAM*08/15/2020 8 - GI Upset Comments: Other reaction(s): GI Upset Other reaction(s): cramping, GI Upset, Other (See Comments), Upset Stomach Severe stomach pain Other reaction(s): GI Upset PENICILLINS 08/15/2020 2 - Rash 14 - Other: See Comments Comments: Other reaction(s): GI Upset, hives, horrible taste in mouth Other reaction(s): GI Upset, GI Upset, horrible taste in mouth, leaves a bad taste in her mouth., NEEDS FOLLOW-UP Other reaction(s): GI Upset, hives, horrible taste in mouth PREGABALIN 08/15/2020 7 - Swelling 14 - Other: See Comments 16 - Unknown Comments: Other reaction(s): swelling, Swelling Other reaction(s): Swelling, Unknown Other reaction(s): swelling, Swelling PENICILLIN G 11/11/2021 8 - GI Upset IBUPROFEN 11/11/2021 8 - GI Upset Comments: Vomiting cramping TYLENOL (ACETAMINOPHEN) 10/27/2022 8 - GI Upset Date Reviewed: 06/21/2024 Reviewed by: Samantha Armstrong LPN - Fully Assessed Reason for Visit: Blood Pressure [15] Primary Visit Diagnosis:Primary hypertension [I10] Other Visit Diagnoses:Anxiety [F41.9] Right upper quadrant abdominal pain [R10.11] Tobacco use [Z72.0] Order(s):LORazepam (ATIVAN) 0.5 mgTake 1 tablet by mouth two times a day as needed for up to 30 days.Disp: 60 tabletRfl: 0 sertraline (ZOLOFT) 25 mg tabletTake 1 tablet by mouth once daily.Disp: 30 tabletRfl: 11 hydroCHLOROthiazide 25 mg tabletTake 1 tablet by mouth once daily.Disp: 90 tabletRfl: 3 Prescriptions as of 06/22/2024 - LORazepam (ATIVAN) 0.5 mg Take 1 tablet by mouth two times a day as needed for up to 30 days. - sertraline (ZOLOFT) 25 mg tablet Take 1 tablet by mouth once daily. - hydroCHLOROthiazide 25 mg tablet Take 1 tablet by mouth once daily. - hydrALAZINE (APRESOLINE) 50 mg tablet Take 1 tablet by mouth four times daily. Hold if blood pressure is less than 110/60 - oxyCODONE-acetaminophen (PERCOCET) 7.5-325 mg tablet Take 1 tablet by mouth every 6 hours as needed for pain for up to 30 days. Patient should start on May 27, 2024. - gabapentin (NEURONTIN) 800 mg tablet Take 1 tablet by mouth four times daily for 90 days. - insulin glargine 100 unit/mL (3 mL) Inject 24 Units subcutaneously daily at bedtime. - polyethylene glycol 3350 17 gram/dose powder Take 17 g by mouth once daily as needed for constipation. - losartan (COZAAR) 100 mg tablet Take 1 tablet by mouth once daily. - ondansetron orally disintegrating (ZOFRAN ODT) 8 mg disintegrating tablet Take 1 tablet by mouth every 8 hours as needed for nausea/vomiting. - nicotine (NICODERM CQ) 21 mg/24 hr Apply 1 Patch as directed once daily. - omeprazole (PRILOSEC) 40 mg capsule Take 1 capsule by mouth two times a day. - blood sugar diagnostic ([employer]UCH VERIO TEST STRIPS) test strip 1 Strip four times daily. Use as instructed - Insulin Willow, Disposable, (BD ULTRA-FINE PADMINI PEN NEEDLE) 32 gauge x 5/32" 1 Each three times a day. - fluticasone-salmeterol HFA (ADVAIR HFA) 230-21 mcg/actuation inhaler Inhale 2 Puffs as instructed two times a day. - loratadine (CLARITIN) 10 mg tablet Take 1 tablet by mouth once daily. - tiZANidine (ZANAFLEX) 4 mg tablet Take 4 mg by mouth three times a day as needed. - albuterol HFA (PROVENTIL HFA, VENTOLIN HFA) 90 mcg/actuation inhaler Inhale 2 Puffs as instructed every 4 hours as needed for wheezing/shortness of breath. - CPAP/BIPAP/OTHER Type .CPAPSettings into a note to see current settings/supplies/DME information. - zoledronic acid (RECLAST) 5 mg/100 mL pgbk PREMIX piggyback Inject 100 mL intravenously every year. - insulin lispro (HUMALOG KWIKPEN) 100 unit/mL Inject 8 Units subcutaneously three times a day before meals. Taking as needed Problem List As Of Date 06/21/2024 Noted Resolved Uncontrolled type 2 diabetes mellitus with hype*08/28/2022 Chronic midline low back pain with sciatica [M5*08/28/2022 Chronic obstructive lung disease (HCC) [J44.9] 10/18/2022 11/05/2022 Chronic obstructive pulmonary disease, unspecif*11/30/2021 Hyperlipidemia, unspecified [E78.5] 06/15/2021 Tobacco use [Z72.0] 11/05/[address] scan, kidney [R93.429] 11/05/2022 Dyspepsia [R10.13] 02/21/2023 Epigastric pain [R10.13] 02/21/2023 Right upper quadrant abdominal pain [R10.11] 02/21/2023 Chronic gastritis without bleeding [K29.50] 03/12/2023 Gastric wall thickening [K31.89] 03/12/2023 Primary hypertension [I10] 06/11/2023 Neuropathy [G62.9] 06/11/2023 Back pain with history of spinal surgery [M54.9*06/11/2023 FRANCISCO (obstructive sleep apnea) [G47.33] 06/11/2023 DM gastroparesis (HCC) [E11.43, K31.84] 07/04/2023 Abdominal bloating [R14.0] 10/13/2023 Obesity [E66.9] 10/13/2023 Diagnosed: 10/13/2023 Postlaminectomy syndrome of lumbar region [M96.*10/31/2022 Diagnosed: 10/13/2023 Sciatica [M54.30] 11/18/2022 Diagnosed: 10/13/2023 Fall at home, initial encounter [W19.XXXA, Y92.*11/26/2023 12/04/2023 Nicotine use disorder, F17.2 [F17.200] 11/28/2023 Other instructions from your clinician: For blood pressure: Continue with losartan-hydralazine unchanged. Increase hydrochlorothiazide from 12.5 mg to 25 mg daily For abdominal pain: Take omeprazole daily For anxiety. Take sertraline daily. Take lorazepam as needed for anxiety once or twice daily Prescriptions ordered this encounter Disp Refills Start End LORAZEPAM 0.5 MG TABLET 60 t* 0 06/21/2024 07/21/2024 Route: ORAL Sig: Take 1 tablet by mouth two times a day as needed for up to 30 days. SERTRALINE 25 MG TABLET 30 t* 11 06/21/2024 Route: ORAL Sig: Take 1 tablet by mouth once daily. HYDROCHLOROTHIAZIDE 25 MG TABLET 90 t* 3 06/21/2024 Route: ORAL Sig: Take 1 tablet by mouth once daily. Medications Discontinued During This Encounter Prescriptions - hydroCHLOROthiazide 12.5 mg capsule (Discontinued) Take 1 capsule by mouth once daily as needed (swelling). Level of Service: OFFICE/OUTPATIENT ESTABLISHED MOD MDM 30 MIN [17384] Additional E/M codes: VISIT CPLX INHERENT EANDM ASSOC WITH MED * Follow-up and Disposition History for Encounter Date Provider Department Center 06/21/2024 [id number], TERRI INTMWS Formerly [facility] Encounter Status:Closed by GEORGINA GONSALEZ on 06/22/24 CNPN Observed: 06/14/2024 12:00 AM Status: COMPLETED Source: [facility] Telephone (FAMPST) NIKKIE BUCK ([id number]) 1965 F Date Time Provider Department 06/14/24 RISSA HANKS FAMPST During your visit today, we recorded the following information about you: Eloina Lai 06/14/2024 11:58 AM Signed Nikkie is calling Rissa Hanks MD today to request a medication not on current med list Amlodipine 10 mg taking one tablet once daily #30 refills #3 Pharmacy Drug [facility] Raman Patient has been identified by name and birthdate. Duration of symptoms: N/A Person calling: self Call patient at: on cell [phone] (home) [phone] (cell) Was an appointment scheduled: No Closing statement: Results or non-symptom based questions: Thank you for calling [facility], your call will be returned within the next business day. Eloina Varma [facility] Daphne Menendez LPN 06/14/2024 12:30 PM Addendum At last appointment with primary care on 05/05/24 Crystal had instructed Nikkie: ASSESSMENT/PLAN: 1. Edema of both lower legs - ICD9: 782.3, ICD10: R60.0 (primary diagnosis) Possibly a side effect of her amlodipine, stop the amlodipine and restart losartan, see if improves, ambulate as able, avoid salt. IF still occurring then do short term HCTZ. 2. Primary hypertension - ICD9: 401.9, ICD10: I10 - Controlled - Stop amlodipine, restart losartan - Recommend home blood pressure monitoring, to bring results to next visit - Encouraged sodium restriction, DASH or Mediterranean diet - Recommend regular aerobic exercise - LOSARTAN 100 MG TABLET Spoke with patient and explain same. Patient at first acted like she was unaware that she was to stop the amlodipine but then stated that she has not been taking the amlodipine and is only taking Losartan and HCTZ. When asked she did state that the swelling has improved. Concerned regarding her blood pressure states it has been running high at home. She was unsure of the # but mentioned 214/118 as today's reading. Patient went on to say she is currently under a lot of stress due to upcoming GI and hip surgery and pain from fractured hip that is not healing properly. Crystal Robles APRN.REFRIGERATING ENGINEER 06/14/2024 1:47 PM Signed I would recommend we return her call and see if she is able to repeat a blood pressure while on the phone so she can update where she is at. Certainly I hope it is not as high as 214/118. That is correct that we stopped the amlodipine because of her swelling and sent in for her losartan. Please see if still having swelling also and if having any symptoms of high blood pressure (I.e. headaches, dizzy, chest pain, chest tightness, shortness of breath) and what medication she has taken at this point today. Can forward to triage if needed. Daphne Menendez LPN 06/14/2024 2:11 PM Addendum Patient has not been taking HCTZ. Is taking hydralazine and losarton. Has taken 2 doses of the hydralazine today and took her one dose of losartan this am. BP while on phone 197/112 the only symptom she has is a headache for several weeks. Crystal Robles APRN.REFRIGERATING ENGINEER 06/14/2024 2:12 PM Signed Increase hydralazine to 4 times daily at 50 mg dose, get update tomorrow. Daphne Menendez LPN 06/14/2024 2:13 PM Signed PATIENT NOTIFIED OF SAME. Allergies As of Date: 06/14/2024 Noted Allergy Reaction DULOXETINE 06/15/2021 7 - Swelling 14 - Other: See Comments Comments: Other reaction(s): swelling Other reaction(s): Unknown Other reaction(s): swelling NSAIDS (NON-STEROIDAL ANTI-INFLAM*08/15/2020 8 - GI Upset Comments: Other reaction(s): GI Upset Other reaction(s): cramping, GI Upset, Other (See Comments), Upset Stomach Severe stomach pain Other reaction(s): GI Upset PENICILLINS 08/15/2020 2 - Rash 14 - Other: See Comments Comments: Other reaction(s): GI Upset, hives, horrible taste in mouth Other reaction(s): GI Upset, GI Upset, horrible taste in mouth, leaves a bad taste in her mouth., NEEDS FOLLOW-UP Other reaction(s): GI Upset, hives, horrible taste in mouth PREGABALIN 08/15/2020 7 - Swelling 14 - Other: See Comments 16 - Unknown Comments: Other reaction(s): swelling, Swelling Other reaction(s): Swelling, Unknown Other reaction(s): swelling, Swelling PENICILLIN G 11/11/2021 8 - GI Upset IBUPROFEN 11/11/2021 8 - GI Upset Comments: Vomiting cramping TYLENOL (ACETAMINOPHEN) 10/27/2022 8 - GI Upset Date Reviewed: 05/20/2024 Reviewed by: Karishma Jonas LPN - Fully Assessed Reason for Visit: medication not on current med list [Other] Visit Diagnosis:Primary hypertension [I10] Order(s):hydrALAZINE (APRESOLINE) 50 mg tabletTake 1 tablet by mouth four times daily. Hold if blood pressure is less than 110/60Disp: 120 tabletRfl: 2 Prescriptions as of 06/14/2024 - hydrALAZINE (APRESOLINE) 50 mg tablet Take 1 tablet by mouth four times daily. Hold if blood pressure is less than 110/60 - oxyCODONE-acetaminophen (PERCOCET) 7.5-325 mg tablet Take 1 tablet by mouth every 6 hours as needed for pain for up to 30 days. Patient should start on May 27, 2024. - gabapentin (NEURONTIN) 800 mg tablet Take 1 tablet by mouth four times daily for 90 days. - insulin glargine 100 unit/mL (3 mL) Inject 24 Units subcutaneously daily at bedtime. - polyethylene glycol 3350 17 gram/dose powder Take 17 g by mouth once daily as needed for constipation. - losartan (COZAAR) 100 mg tablet Take 1 tablet by mouth once daily. - ondansetron orally disintegrating (ZOFRAN ODT) 8 mg disintegrating tablet Take 1 tablet by mouth every 8 hours as needed for nausea/vomiting. - nicotine (NICODERM CQ) 21 mg/24 hr Apply 1 Patch as directed once daily. - omeprazole (PRILOSEC) 40 mg capsule Take 1 capsule by mouth two times a day. - blood sugar diagnostic (ONETOUCH VERIO TEST STRIPS) test strip 1 Strip four times daily. Use as instructed - Insulin Willow, Disposable, (BD ULTRA-FINE PADMINI PEN NEEDLE) 32 gauge x 5/32" 1 Each three times a day. - fluticasone-salmeterol HFA (ADVAIR HFA) 230-21 mcg/actuation inhaler Inhale 2 Puffs as instructed two times a day. - loratadine (CLARITIN) 10 mg tablet Take 1 tablet by mouth once daily. - tiZANidine (ZANAFLEX) 4 mg tablet Take 4 mg by mouth three times a day as needed. - albuterol HFA (PROVENTIL HFA, VENTOLIN HFA) 90 mcg/actuation inhaler Inhale 2 Puffs as instructed every 4 hours as needed for wheezing/shortness of breath. - CPAP/BIPAP/OTHER Type .CPAPSettings into a note to see current settings/supplies/DME information. - hydroCHLOROthiazide 12.5 mg capsule Take 1 capsule by mouth once daily as needed (swelling). - zoledronic acid (RECLAST) 5 mg/100 mL pgbk PREMIX piggyback Inject 100 mL intravenously every year. - insulin lispro (HUMALOG KWIKPEN) 100 unit/mL Inject 8 Units subcutaneously three times a day before meals. Taking as needed Problem List As Of Date 06/14/2024 Noted Resolved Uncontrolled type 2 diabetes mellitus with hype*08/28/2022 Chronic midline low back pain with sciatica [M5*08/28/2022 Chronic obstructive lung disease (HCC) [J44.9] 10/18/2022 11/05/2022 Chronic obstructive pulmonary disease, unspecif*11/30/2021 Hyperlipidemia, unspecified [E78.5] 06/15/2021 Tobacco use [Z72.0] 11/05/[address] scan, kidney [R93.429] 11/05/2022 Dyspepsia [R10.13] 02/21/2023 Epigastric pain [R10.13] 02/21/2023 Right upper quadrant abdominal pain [R10.11] 02/21/2023 Chronic gastritis without bleeding [K29.50] 03/12/2023 Gastric wall thickening [K31.89] 03/12/2023 Primary hypertension [I10] 06/11/2023 Neuropathy [G62.9] 06/11/2023 Back pain with history of spinal surgery [M54.9*06/11/2023 FRANCISCO (obstructive sleep apnea) [G47.33] 06/11/2023 DM gastroparesis (HCC) [E11.43, K31.84] 07/04/2023 Abdominal bloating [R14.0] 10/13/2023 Obesity [E66.9] 10/13/2023 Diagnosed: 10/13/2023 Postlaminectomy syndrome of lumbar region [M96.*10/31/2022 Diagnosed: 10/13/2023 Sciatica [M54.30] 11/18/2022 Diagnosed: 10/13/2023 Fall at home, initial encounter [W19.XXXA, Y92.*11/26/2023 12/04/2023 Nicotine use disorder, F17.2 [F17.200] 11/28/2023 Prescriptions ordered this encounter Disp Refills Start End HYDRALAZINE 50 MG TABLET 120 * 2 06/14/2024 Route: ORAL Sig: Take 1 tablet by mouth four times daily. Hold if blood pressure is less than 110/60 Medications Discontinued During This Encounter Prescriptions - hydrALAZINE (APRESOLINE) 25 mg tablet (Discontinued) Take 1 tablet by mouth three times a day. Hold if blood pressure is less than 110/60 Encounter Status:Closed by CRYSTAL ROBLES on 06/14/24 ALLERGIES DATE TYPE / CODE NAME / CODE REACTION SEVERITY SOURCE 08/09/2024 DRUG INGREDI/821860 003(SNOMED CT) CELECOXIB INTOLERANCE [facility] 06/22/2024 DRUG INGREDI/591843 003(SNOMED CT) AMLODIPINE INTOLERANCE [facility] 10/27/2022 DRUG INGREDI/878674 003(SNOMED CT) ACETAMINOPHEN GI UPSET [facility] 11/11/2021 DRUG INGREDI/971017 003(SNOMED CT) [facility] DRUG INGREDI/842760 003(SNOMED CT) IBUPROFEN GI UPSET [facility] 06/15/2021 DRUG INGREDI/687231 003(SNOMED CT) DULOXETINE SWELLING [facility] 08/15/2020 Drug Class/44432703 3(SNOMED CT) NSAIDS (NON-STEROIDAL ANTI-INFLAMMATORY DRUG) GI UPSET [facility] 08/15/2020 Drug Class/25520424 3(SNOMED CT) PENICILLINS RASH [facility] 08/15/2020 DRUG INGREDI/954703 003(SNOMED CT) PREGABALIN SWELLING [facility] ENCOUNTERS ADMIT/DISCHARGE ACCOUNT NUMBER ADMITTING ENCOUNTER CLASS LOCATION SOURCE 05/18/2025/05/18/20 [id number] [facility] [id number] [facility] [place] [facility] 04/14/2025 [id number] Ambulatory [facility]:ANAND2 [facility] 04/07/2025 [id number] Ambulatory [facility]:WOR2 [facility] 03/17/2025/03/17/20 25 [id number] Ambulatory [facility]:PMWO [facility] 03/14/2025/03/14/20 25 [id number] Ambulatory [facility]:AFSHIN [facility] 03/07/2025/03/07/20 25 [id number] Ambulatory [facility]:DANIEL [facility] 03/07/2025/03/07/20 25 [id number] Ambulatory [facility]:AFSHIN [facility] 02/15/2025/02/16/20 25 [id number] Ambulatory [facility]:AFSHIN [facility] 01/25/2025/01/26/20 25 [id number] Ambulatory [facility]:AFSHIN [facility] 01/17/2025/01/18/20 25 [id number] Ambulatory [facility]:DIVYA [facility] 12/31/2024/01/01/20 25 [id number] Ambulatory [facility]:AFSHIN [facility] 12/29/2024 [id number] Ambulatory [facility]:DIVYA [facility] 12/29/2024 [id number] [facility] [place] [facility]12/23/19 25 [id number] [facility] [place] 12/03/2024/12/04/19 25 [id number] Ambulatory [facility] HospitalBu[facility] ding:GAQ3 [facility] 11/22/2024/11/23/19 25 [id number] Ambulatory [facility]:DOMINGO [facility] 11/22/2024/11/23/19 25 [id number] Ambulatory [facility]:AUSTIN [facility] 11/08/2024/11/09/19 25 [id number] Ambulatory [facility] ding:AFSHIN [facility] 10/29/2024/10/29/19 25 [id number] [facility]AG[facility]ARLOS [facility] 10/14/2024/10/14/19 25 [id number] Ambulatory [facility]:SG [facility] 10/14/2024/10/14/19 25 [id number] Ambulatory [facility]:KIARA [facility] 09/27/2024/09/27/19 25 [id number] Ambulatory [facility]:FELECIA [facility] 09/22/2024/09/23/19 25 [id number] Ambulatory [facility]:DANIEL [facility] 09/22/2024/09/22/19 25 [id number] Ambulatory [facility]:AFSHIN [facility] 08/31/2024/08/31/20 24 [id number] Ambulatory [facility]:PEDRO [facility] 08/25/2024 [id number] [facility] [place] [facility] [id number] [facility] [place] [facility]MDRDML [facility] 08/19/2024/08/19/20 24 [id number] Ambulatory [facility]:DANIEL [facility] 08/19/2024/08/19/20 24 [id number] Ambulatory [facility] ding:AFSHIN [facility] 08/09/2024/08/09/20 24 [id number] Ambulatory [facility]:DANIEL [facility] 08/09/2024/08/09/20 24 [id number] Ambulatory [facility]:AFSHIN [facility] 07/29/2024/07/29/20 24 [id number] Ambulatory [id number] ilding:PMMJ [facility] 07/22/2024 [id number] Ambulatory [facility]:GEE [facility] 07/03/2024/07/07/20 24 [id number] INDY DUTTON [facility]patient Encounter [facility]MSURRoom: 0234Bed: S [facility] 07/03/2024 [id number] MELI CRABTREE FACPRON Ambulatory [facility] 06/21/2024/06/21/20 24 [id number] [facility] PAYERS ENCOUNTER GUARANTOR PAYER SUBSCRIBER SOURCE 05/18/2025 Primary Insurance:[employer] [place] Number: [id number] e Date:5476-58-06Vdyv Name:Deysi BURRISRichard: [id number] [address] [place] [phone] [place] [address] 05/18/2025 Primary Insurance:[employer] [place] Number: [id number] e Date:3138-12-64Oryz Name:Deysi BURRISRichard: [id number] [address] [place] [phone] [place] [address] 04/14/2025 Primary Insurance:[employer] [place] Number: [id number] e Date:0207-28-58Ktzt Name:Deysi BURRISB: [id number] [address] [place] [phone] [place] [address] 04/07/2025 Primary Insurance:[employer] [place] Number: [id number] e Date:9488-21-79Bzbi Name:Deysi BURRSIB: [id number] [address] [place] [phone] [place] [address] 03/17/2025 Primary Insurance:[employer] [place] Number: [id number] e Date:5705-69-33Osck Name:Deysi BUCKDOB: [id number] [address] [place] [address] [facility] 03/14/2025 Primary Insurance:[employer] [place] Number: [id number] e Date:6170-08-16Xphy Name:Deysi BUCKDOB: [id number] [address] [place] [phone] [place] [address] 03/07/2025 Primary Insurance:[employer] [place] Number: [id number] e Date:1088-33-84Agei Name:Deysi BUCKDOB: [id number] [address] [place] [phone] [place] [address] 03/07/2025 Primary Insurance:[employer] [place] Number: [id number] e Date:8157-31-19Znju Name:Deysi BUCKDOB: [id number] [place] [phone] [place] [address] 02/15/2025 Primary Insurance:[employer] [place] Number: [id number] e Date:7480-26-49Vxie Name:Deysi BUCKDOB: [id number] [address] [place] [id number] [facility] 01/25/2025 Primary Insurance:[employer] [place] Number: [id number] e Date:9850-63-31Aqie Name:Deysi BUCKDOB: [id number] [address] [place] [phone] [place] [address] 01/17/2025 Primary Insurance:[employer] [place] Number: [id number] e Date:3129-47-59Uimi Name:Deysi BUCKDOB: [id number], [place] [address] [facility] 12/31/2024 Primary Insurance:[facility] PLAN [place] Number: [id number] e Date:5958-78-99Soxm Name:Deysi BUCKB: [id number] [place] [address] [facility] 12/29/2024 Primary Insurance:[facility] PLAN [place] Number: [id number] e Date:9206-25-83Mefo Name:Deysi BUCKB: [id number] [address] [place] [address] [facility] 12/29/2024 Primary Insurance:[facility] PLAN [place] Number: [id number] e Date:9848-23-31Qcxn Name:Deysi Jerry CANDISSASKIAB: [id number] [place] [phone] [place] [address] 12/22/2024 Primary Insurance:[facility] PLAN [place] Number: [id number] e Date:9392-43-11Uihi Name:Deysi BUCKB: [id number] [address] [place] [address] [facility] 12/03/2024 Primary Insurance:[facility] PLAN [place] Number: [id number] e Date:8784-49-18Heqn Name:Deysi BUCKB: [id number] [address] [place] [address] [facility] 11/22/2024 Primary Insurance:[facility] PLAN [place] Number: [id number] e Date:6324-74-79Pvrs Name:Deysi BUCKB: [id number] [address] [place] [address] [facility] 11/22/2024 Primary Insurance:[facility] PLAN MEDICAID [facility] Number: [id number] e Date:6718-50-11Ahru Name:Deysi BUCKDOB: [id number] [address] [place] [id number] [facility] 11/08/2024 Primary Insurance:[employer] [place] Number: [id number] e Date:9582-99-35Skzs Name:Deysi BUCKDOB: [id number] [address] [place] [id number] [facility] 10/29/2024 Primary Insurance:[employer] [place] Number: [id number] e Date:2089-18-25Wifz Name:Deysi BUCKDOB: [id number] [place] [phone] [place] [address] 10/14/2024 Primary Insurance:[employer] [place] Number: [id number] e Date:7148-82-13Tymk Name:Deysi BUCKDOB: [id number] [place] [address] [facility] 10/14/2024 Primary Insurance:[employer] [place] Number: [id number] e Date:5873-19-62Kpdb Name:Deysi BUCKDOB: [id number] [address] [place] [address] [facility] 09/27/2024 Primary Insurance:[employer] [place] Number: [id number] e Date:7553-98-41Meoi Name:Deysi BUCKDOB: [id number] [address] [place] [address] [facility] 09/22/2024 Primary Insurance:[employer] [place] Number: [id number] e Date:6648-11-36Vmyw Name:Deysi BUCKDOB: [id number] [address] [place] [address] [facility] 09/22/2024 Primary Insurance:[employer] [place] Number: [id number] e Date:9506-09-15Uogx Name:Deysi BURRISB: [id number], [place] [address] [facility] 08/31/2024 Primary Insurance:[employer] [place] Number: [id number] e Date:0310-65-88Jjpq Name:Deysi BUCKB: [id number] [address] [place] [phone] [place] [address] 08/25/2024 Primary Insurance:[employer] [place] Number: [id number] e Date:2312-06-07Wgps Name:Deysi BUCKB: [id number] [place] [phone] [place] [address] 08/25/2024 Primary Insurance:[employer] [place] Number: [id number] e Date:1689-08-18Dand Name:Deysi BUCKB: [id number] [address] [place] [phone] [place] [address] 08/19/2024 Primary Insurance:[employer] [place] Number: [id number] e Date:7604-87-15Brim Name:Deysi BUCKB: [id number] [address] [facility] 08/19/2024 Primary Insurance:[facility] PLAN [place] Number: [id number] e Date:7101-96-91Giuu Name:Deysi BUCKB: [id number] [address] [facility] 08/09/2024 Primary Insurance:[facility] PLAN [place] Number: [id number] e Date:[id number] Name:Deysi BUCKDOB: [id number], [place] [address] [facility] 08/09/2024 Primary Insurance:[facility] PLAN [place]: [id number] e Date:[id number] Name:Deysi BUCKDOB: [id number], [place] [address] [facility] 07/29/2024 Primary Insurance:[employer] COMM[employer]ITY [place]AN [place]: [id number] e Date:8100-11-46Urtz Name:Deysi BUCKDOB: [id number], [place] [address] [facility] 07/22/2024 Primary Insurance:[employer] COMMUNITY [place]AN [place] Number: [id number] e Date:3225-00-54Kbpl Name:Deysi Jerry BEGLYDOB: [id number], [place] [address] [facility] 07/03/2024 NIKKIE Jerry BEGLYDOB: [address] [email or web address] - [email or web address] medical centerTel: (HP) Primary Insurance:[facility] HOS[facility]ITAL[facility] Number: [id number] e Date:8648-41-18Iqup Name:BEENA Tate [address] [place] [id number]: NIKKIE Jerry BEGLYDOB: [id number], [place] [address]Bmn: (HP) (WP) [facility] 07/03/2024 NIKKIE Jerry BEGLYDOB: [address] [address]Pasqualeamadouyasmeenluisana [email or web address] centerTel: (HP) Primary Insurance:[facility] INSCOPolicy Number: [id number] e Date:1831-89-82Ohnh Name:BEENA Tate [address] [place] [id number]: NIKKIE SINGLETON: [id number] JEFFREY VILLAGRAN [address] [place] [id number]: (HP) (WP) [facility] 06/21/2024 Primary Insurance:[facility] COMMUNITY PLAN MEDICAID [facility] Number: [id number] e Date:8064-67-51Vamz Name:Deysi SINGLETON: [id number] JEFFREY LUJAN [address] [place] [id number] [facility]
[2025-06-05] VITALS (14 sets, daily range): BP systolic 110–224; BP diastolic 80–132; PULSE 75–91; RESP 14–18; TEMP 36.6–36.8; O2SAT 98–99; BMI 25.2
[2025-06-05 16:17] LABS: Hematocrit 45.5 % (37-47); Hemoglobin 15.2 g/dL (12.0-15.0); Immature Granulocytes Count 0.050 X10^3/uL (0.0-0.0); Mean Corp Hgb Conc 33.4 g/dL (32-36); Mean Corpuscular Volume 95.6 fL (81-99); Mean Platelet Vol. 10.7 fl (6.2-12.0); NRBC Flagged by Analyzer 0 % (0-5); Platelet Count 308 K/mm3 (150-450); RBC Distribution Width CV 14.6 % (11.6-14.6); RBC Distribution Width SD 51.2 fl (35.1-43.9); Red Blood Count 4.76 M/mm3 (4.2-5.4); White Blood Count 10.8 K/mm3 (4.4-11.0)
--- NOTE | 2025-06-05 16:17 | EDS_ITS ---
HPI HPI - GI History of Present Illness Chief Complaint: Abd Pain Narrative Narrative: 59-year-old female past medical history of hypertension, diabetes, presents with nausea and vomiting and epigastric pain that she has had for the last few weeks. Of note, she was seen in the emergency department 3 days ago and diagnosed with gastritis. She cannot recall if she was sent home with any medications. She states that she has had continued epigastric pain radiating to both sides as well as 3 episodes of vomiting, nonbloody, in the last 24 hours. She denies any exacerbating or alleviating factors. [facility] Medical History Closed fracture of neck of right femur Alcohol use Diabetes Post-menopausal Renal disease GERD (gastroesophageal reflux disease) Back pain due to injury Back pain Osteomyelitis Spinal fusion failure CPAP (continuous positive airway pressure) dependence Sleep apnea Lumbar stenosis Wears glasses Depression Anxiety Thyroid disease Insulin dependent diabetes mellitus Walker as ambulation aid Arthritis History of renal disease High cholesterol Back pain Injury of head and neck Syncope Dietary restriction Gastric reflux Smoker COPD (chronic obstructive pulmonary disease) Shortness of breath on exertion History of edema History of pain when walking History of echocardiogram History of stress test Cardiology follow-up encounter Hypertension Obesity Coronary artery calcification seen on CAT scan Type 2 diabetes mellitus Strain of muscle, fascia and tendon of pelvis, initial encounter Strain of unspecified muscles, fascia and tendons at thigh level, right thigh, initial encounter Strain of right hip and thigh Strain of right inguinal region Chronic neck and back pain Difficulty balancing Asthma Knee pain History of stomach ulcers Shoulder pain History of arthritis Home Medications Medication Instructions Recorded Last Taken Type albuterol sulfate 90 mcg/actuation 2 puff inhalation Q 6H PRN SOB 06/14/21 06/14/22 History aerosol inhaler ipratropium 0.5 mg-albuterol 3 mg 3 ml inhalation 4X/D AY PRN sob 11/27/21 11/25/21 History (2.5 mg base)/3 mL nebulization soln loratadine 10 mg tablet 10 mg PO DAILY PRN allergies 11/27/21 02/21/22 History ondansetron 4 mg disintegrating 4 mg PO Q8H PRN PRN Na usea #10 tabs 10/13/22 Unknown Rx tablet blood-glucose meter (OneTouch #1 ea 04/16/23 Unknown R x Verio Flex Meter) blood sugar diagnostic (OneTouch #100 ea 08/11/23 Unkn own Rx Verio test strips) flash glucose sensor (FreeStyle #2 ea 08/21/23 Unknown Rx Sandra 14 Day Sensor kit) pen needle, diabetic 32 gauge x #150 ea 11/13/23 Unkno wn Rx 532" (BD Ultra-Fine Sissy Pen Needle) gabapentin 800 mg tablet 800 mg PO TID 06/25/24 Unkno wn History hydralazine 50 mg tablet 50 mg PO 4X/DAY blood pressu re 06/25/24 Unknown History hydrochlorothiazide 25 mg tablet 25 mg PO DAILY Unknown History albuterol sulfate 2.5 mg/3 mL 2.5 mg (3 mL) inhalation Q2H PRN 07/03/24 Unknown Rx (0.083 %) solution for nebulization PRN Dyspnea, wheez ing #0 mL nicotine 21 mg/24 hr daily 21 mg transdermal DAILY PRN PRN 07/03/24 Unknown Rx transdermal patch Nicotine Craving #0 ea sennosides 8.6 mg-docusate sodium 2 tab PO BID #0 tabs 07/03/24 Unknown Rx 50 mg tablet (Stimulant Laxative Plus) pantoprazole 40 mg tablet,delayed 40 mg PO DAILY #30 t abs 06/02/25 Unknown Rx release (Protonix) acetaminophen 500 mg tablet 1,000 mg PO Q8 PRN fever o r pain 06/05/25 Unknown History cholecalciferol (vitamin D3) 50 50 mcg PO DAILY Unknown History mcg (2,000 unit) capsule empagliflozin 10 mg tablet 10 mg PO DAILY 06/05/25 Unk nown History (Jardiance) fluoxetine 10 mg capsule 10 mg PO DAILY 06/05/25 Unkn own History fluticasone 100 mcg-salmeterol 50 1 ea inhalation BID 06/05/25 Unknown History mcg/dose blistr powdr for inhalation (Advair Diskus) insulin glargine 100 unit/mL (3 30 unit subcut QHS Unknown History mL) subcutaneous pen (Lantus Solostar U-100 Insulin) lisinopril 5 mg tablet 5 mg PO DAILY 06/05/25 Unkno wn History losartan 100 mg tablet 100 mg PO DAILY 06/05/25 Unk nown History omeprazole 40 mg capsule,delayed 40 mg PO BID 06/05/25 Unknown History release polyethylene glycol 3350 17 17 PO DAILY PRN constipati on 06/05/25 Unknown History gram/dose oral powder spironolactone 25 mg tablet 25 mg PO DAILY 06/05/25 Un known History sucralfate 1 gram tablet 1 g PO BID 06/05/25 Unknown History tizanidine 4 mg tablet 4 mg PO TID PRN PRN muscle 0 06/05/25 Unknown History spasticity Allergy/AdvReac Type Severity Reaction Status Date / Time duloxetine (From Cymbalta) Allergy Unknown Verified 06/05/25 15:57 pregabalin (From Lyrica) Allergy Unknown Verified 06/05/25 15:57 Penicillins AdvReac Mild leaves a Verified 06/05/25 15:57 bad taste in her mouth. acetaminophen AdvReac Vomiting Verified 06/05/25 15:57 aspirin AdvReac Upset Verified 06/05/25 15:57 Stomach NSAIDS (Non-Steroidal AdvReac Upset Verified 06/05/25 15:57 Anti-Inflamma Stomach Family History Father Cancer Unclear type. Mother Lung cancer Concurrent tobacco use history. Surgical History S/P hysterectomy History of open reduction and internal fixation (ORIF) procedure History of carpal tunnel release History of partial thyroidectomy History of ankle surgery History of History of hysterectomy Social History household members: none Smoking Status: Current every day smoker tobacco type: cigarettes alcohol intake: never substance use type: does not use ROS ROS ED ROS Narrative Review of systems positive for nausea and vomiting, no hematemesis, positive epigastric pain for weeks. No fevers or chills, no exacerbating or alleviating factors. EXAM Physical Exam Narrative Exam Narrative: Afebrile. Vital signs noted. Nontoxic-appearing. Cardiovascular examination reveals regular rate and rhythm. Lungs are clear to auscultation bilaterally. Abdomen is soft with tenderness in the epigastrium and right upper quadrant but no guarding or rebound. Positive bowel sounds. Neurological examination nonfocal, nonlateralizing. Const Vital Signs: 06/05/25 15:57 06/05/25 16:11 06/05/25 16:15 Temperature 98.3 F Temperature Source Oral Pulse Rate 91 Respiratory Rate 18 Blood Pressure 110/86 H Blood Pressure Mean 94 Pulse Ox 99 99 98 Oxygen Delivery Method Room Air 06/05/25 16:27 06/05/25 16:28 06/05/25 16:30 Temperature Temperature Source Pulse Rate 80 83 Respiratory Rate 16 16 Blood Pressure 224/132 H 206/113 H 206/113 H Blood Pressure Mean 164 143 144 Pulse Ox 98 98 99 Oxygen Delivery Method Room Air Room Air 06/05/25 16:30 06/05/25 16:43 06/05/25 16:44 Temperature Temperature Source Pulse Rate 79 Respiratory Rate 14 Blood Pressure 213/115 H 213/115 H Blood Pressure Mean 149 147 Pulse Ox 99 99 98 Oxygen Delivery Method Room Air 06/05/25 16:45 06/05/25 16:48 06/05/25 17:00 Temperature Temperature Source Pulse Rate 75 Respiratory Rate 14 Blood Pressure 187/84 H Blood Pressure Mean 114 Pulse Ox 99 98 99 Oxygen Delivery Method Room Air 06/05/25 17:15 Temperature Temperature Source Pulse Rate 75 Respiratory Rate 14 Blood Pressure 202/82 H Blood Pressure Mean 124 Pulse Ox 99 Oxygen Delivery Method Room Air MDM MDM MDM Narrative Medical decision making narrative: Differential diagnosis includes but not limited to gastritis versus pancreatitis versus bowel obstruction versus acute cholecystitis. I did review her prior records. She did have laboratory work and CT performed. It did show gastritis. Additionally, her lipase was elevated at 221 which was borderline for pancreatitis. However, CT did not show inflammation around the pancreas. She was administered morphine as she had been 3 days ago as well as ondansetron. I will repeat her laboratory work including CBC, CMP, and lipase. In review of her laboratory work WBC count has lowered to 10.8, it was 11 previously which was nonspecific. Hemoglobin slightly hemoconcentrated at 15.2 with hematocrit 45.5 and platelet count normal at 308. He reviewed her remaining laboratory work, she has sodium low 132 which I think is nonspecific, she was bolused normal saline. Potassium 5.6, but lower than 3 days ago. EKG was obtained and interpreted by myself as normal sinus rhythm at 81 bpm without ectopy or acute ST changes. No STEMI. No peaked T waves. BUN of 26 and creatinine 1.25. When compared to prior labs she has chronic kidney d isease. Carbon dioxide low at 16.1. Once again she was bolused normal saline. LFTs are grossly normal. Of note lipase is now normal at 69. I do not feel she has a pancreatitis. I do not feel she needs repeat imaging. She did have elevated blood pressure above 200 systolic but is asymptomatic with it. Regardless she was given hydralazine. Upon repeat examination, she states she is feeling improved. I do not feel that she has an acute cholecystitis based on her laboratory work. Her leukocytosis has improved as well. I do feel that she probably has more gastritis type symptoms. I offered to write her for an antiemetic but she states she has Zofran 4 mg ODT's at home that are not effective. I offered her Phenergan suppositories but she declined. Instead she was told that she could take 8 mg of an ODT every 8 hours. She will start a clear liquid diet and advance as tolerated. She will follow-up with her microfilm camera operator at the [facility]. Additionally, she had been written for pantoprazole by Dr. Roberts 3 days ago. Patient has not picked that up but she was told to start that for her gastritis. With shown improvement of her laboratory work, I feel she can be discharged to follow-up. She states that she was told that she had gastroparesis, I do not think that this is not exacerbation of gastroparesis but regardless I do feel treatment would be the same. She is motivated for discharge. Return instructions were reviewed. She was told she should have her potassium rechecked in the next few days by her primary care provider as well. Disposition is discharged home in stable condition. History & Record Review Discussion w/independent historian: Patient Additional record(s) reviewed:: Prior ED visit Lab Data Attestation: I reviewed the patient's lab results. Labs: Laboratory Results - last 24 hr 06/05/25 16:10 WBC 10.8 RBC 4.76 Hgb 15.2 H Hct 45.5 MCV 95.6 MCH 31.9 MCHC 33.4 RDW Std Deviation 51.2 H RDW Coeff of Yudelka 14.6 Plt Count 308 MPV 10.7 Immature Gran % (Auto) 0.500 Neut % (Auto) 75.8 H Lymph % (Auto) 18.0 L Warrick % (Auto) 4.6 Eos % (Auto) 0.8 Baso % (Auto) 0.3 Absolute Neuts (auto) 8.2 H Absolute Lymphs (auto) 1.94 Nucleated RBC % 0 Sodium 132 L Potassium 5.6 H Chloride 104 Carbon Dioxide 16.1 L Anion Gap 12 BUN 26 H Creatinine 1.25 H Estim Creat Clear Calc 38.34 L Est GFR (MDRD) Non-Af 49 L BUN/Creatinine Ratio 21.0 H Glucose 185 H Calcium 9.9 Total Bilirubin 0.22 AST 12 ALT 13 Alkaline Phosphatase 91 Total Protein 6.8 Albumin 3.7 Globulin 3.1 Albumin/Globulin Ratio 1.2 Lipase 69 Discharge Plan Triage Chief Complaint: Abd Pain ED Provider: Song Mercedes Dx/Rx/DC Orders Clinical Impression: Gastritis, Epigastric pain, Hypertension, Hyperkalemia Instructions: ED Abdominal Pain Unkn Cause Fem, ED Gastritis (Adult), ED Hyperkalemia, ED High Blood Pressure Hypertension, ED Epigastric Pain Uncertain Cause Prescriptions: No Action albuterol sulfate 90 mcg/actuation HFA aerosol inhaler 2 puff inhalation Q6H PRN (Reason: SOB) (DME) [employer] Sandra 14 Day Sensor Kit See Rx Instructions .Route Qty: 2 5RF Rx Instructions: 1 sensor q 14 days ipratropium-albuterol 0.5 mg-3 mg(2.5 mg base)/3 mL solution for nebulization 3 ml inhalation 4X/DAY PRN (Reason: sob) loratadine 10 mg tablet 10 mg PO DAILY PRN (Reason: allergies) ondansetron 4 mg tablet,disintegrating 4 mg PO Q8H PRN PRN (Reason: Nausea) Qty: 10 0RF gabapentin 800 mg tablet 800 mg PO TID hydralazine 50 mg tablet 50 mg PO 4X/DAY hydrochlorothiazide 25 mg tablet 25 mg PO DAILY albuterol sulfate 2.5 mg /3 mL (0.083 %) Solution For Nebulization 2.5 mg inhalation Q2H PRN PRN (Reason: Dyspnea, wheezing) Qty: 0 0RF nicotine 21 mg/24 hr Patch 24 Hour 21 mg transdermal DAILY PRN PRN (Reason: Nicotine Craving) Qty: 0 0RF sennosides-docusate sodium [Stimulant Laxative Plus] 8.6-50 mg Tablet 2 tab PO BID Qty: 0 0RF pantoprazole [Protonix] 40 mg tablet,delayed release (DR/EC) 40 mg PO DAILY Qty: 30 0RF tizanidine 4 mg tablet 4 mg PO TID PRN PRN (Reason: muscle spasticity) omeprazole 40 mg capsule,delayed release(DR/EC) 40 mg PO BID spironolactone 25 mg tablet 25 mg PO DAILY fluoxetine 10 mg capsule 10 mg PO DAILY lisinopril 5 mg tablet 5 mg PO DAILY fluticasone propion-salmeterol [Advair Diskus] 100-50 mcg/dose blister with device 1 ea inhalation BID polyethylene glycol 3350 17 gram/dose powder 17 PO DAILY PRN (Reason: constipation) losartan 100 mg tablet 100 mg PO DAILY insulin glargine [Lantus Solostar U-100 Insulin] 100 unit/mL (3 mL) insulin pen 30 unit subcut QHS cholecalciferol (vitamin D3) 50 mcg (2,000 unit) capsule 50 mcg PO DAILY Jardiance 10 mg tablet 10 mg PO DAILY sucralfate 1 gram tablet 1 g PO BID acetaminophen 500 mg Tablet 1,000 mg PO Q8 PRN (Reason: fever or pain) (DME) blood-glucose meter [OneTouch Verio Flex meter] Misc See Rx Instructions .Route Qty: 1 0RF Rx Instructions: As directed (DME) OneTouch Verio test strips Strip See Rx Instructions .Route Qty: 100 5RF Rx Instructions: 4x/day (DME) pen needle, diabetic [BD Ultra-Fine Sissy Pen Needle] 32 gauge x 5/32" needle See Rx Instructions .ROUTE .MEDSUPPLY Qty: 150 3RF Rx Instructions: 5 times daily Primary Care Provider: Araceli Ramos NP Referrals: Araceli Ramso NP, SILVICULTURIST-C [Primary Care Provider, Family Practice] - 1-2 Days if not improving Activity Restrictions/Additional Instructions: Use your Zofran ODT's to help with nausea and vomiting. Start a clear liquid diet and advance as tolerated. You may take 8 mg of the Zofran ODT at a time, every 8 hours. Take the pantoprazole that has already been written for you 3 days ago. Follow-up with your microfilm camera operator. Have your potassium rechecked in the next few days by your primary care provider. Print Language: Romansh Disposition Disposition: Home, Self Care
[2025-06-05] MEDS: 0.9% Normal Saline (1000mL) 1,000 ML 999 ML IV (16:26)
[2025-06-05] MEDS: Famotidine 200 MG/20 ML MDV 20 MG in 0.9% Normal Saline (Pres. free 8 ML 300 MG IV (16:26)
[2025-06-05 16:37] LABS: AST(SGOT) 12 U/L (<=31); Alanine Aminotransfer ALT/SGPT 13 U/L (<=34); Albumin, Serum 3.7 g/dL (3.4-4.8); Alkaline Phosphatase 91 U/L (35-104); Anion Gap 12 (5-15); BUN 26 mg/dL (4-19); BUN/Creat Ratio 21.0 RATIO (10-20); Calcium,Total 9.9 mg/dL (7.6-11.0); Carbon Dioxide 16.1 mmol/L (21.0-32.0); Chloride 104 mmol/L (98-108); Estimated Creatinine Clearance 38.34 ml/min (50-250); Globulin 3.1 g/dL (2.2-4.2); Glucose 185 mg/dL (70-99); Lipase 69 U/L (13-75); Potassium 5.6 mmol/L (3.3-5.1)
--- NOTE | 2025-06-05 16:40 | EKG12_ITS ---
Test Reason : ARRYTH Blood Pressure : */* mmHG Vent. Rate : 81 BPM Atrial Rate : 81 BPM P-R Int : 174 ms QRS Dur : 76 ms QT Int : 392 ms P-R-T Axes : -26 -46 14 degrees QTcB Int : 455 ms Normal sinus rhythm Left axis deviation Inferior infarct , age undetermined Abnormal ECG Confirmed by EZIO CRABTREE, AMY ([id number]), senior technical editor DIANA HAYES ([id number]) on 06/07/2025 8:01:13 AM Referred By: Confirmed By: AMY HOLGUIN MD
== END 2025-06-05 17:39 | disposition home or self-care (01) ==
PROVIDERS: Emergency Provider Emergency Medicine; PCP Internal Medicine; Visit Provider Emergency Medicine
DX: K29.70 Gastritis, unspecified, without bleeding (principal); J44.9 Chronic obstructive pulmonary disease, unspecified; E11.9 Type 2 diabetes mellitus without complications; Z79.4 Long term (current) use of insulin; E87.5 Hyperkalemia; I10 Essential (primary) hypertension; F17.210 Nicotine dependence, cigarettes, uncomplicated; E78.00 Pure hypercholesterolemia, unspecified; R10.13 Epigastric pain; Z90.710 Acquired absence of both cervix and uterus
CPT/HCPCS: 80053; 83690; 85025; 93005; 96361; 96374; 96375; 99285; A4216; J2405